=== PATIENT | male | born 1955 | race African-American/Black ===

== ENCOUNTER 2023-12-04 09:08 | Inpatient (IN) | payer MEDICARE, OTHER ==
[~2023-12-04] VITALS: Ht 180.3 cm; Wt 79.5 kg
[2023-12-04 10:04] LABS: Hemoglobin 7.2 g/dL (13.5-17.5); Red Cell Distribution Width 15.3 % (11.8-14.3); White Blood Cell 3.5 10^3/uL (4.4-10.8)
[2023-12-04 10:07] LABS: Hematocrit 20.6 % (41.0-53.0); Mean Corpuscular Hemoglobin 30.1 pg (28.0-32.0); Mean Corpuscular Hgb Conc. 34.7 g/dL (32.0-36.0); Mean Corpuscular Volume 86.6 fL (80.0-100.0); Platelet Count (auto) 65 10^3/uL (140-450); Red Blood Cells 2.38 10^6/uL (4.5-5.90)
[2023-12-04 10:12] LABS: Alanine Aminotransferase 45 U/L (7-40); Albumin 4.3 g/dL (3.2-4.8); Alkaline Phosphatase 113 U/L (46-116); Anion Gap 6 (5-15); Aspartate Aminotransferase 23 U/L (13-40); BUN/Creatinine Ratio 17.7 (10.0-20.0); Band Neutrophils % (manual) 0; Basophils % (manual) 0 (0.0-2.0); Blast Cells 0; Blood Urea Nitrogen 14 mg/dL (9-23); Calcium 9.7 mg/dL (8.7-10.4); Carbon Dioxide 25 mmol/L (20-30); Chloride 108 mmol/L (98-107); Glucose 96 mg/dL (74-106); Metamyelocytes % 0; Myelocytes % 0; Potassium 3.9 mmol/L (3.5-5.1); Promyelocytes % 0; Reactive Lymphocytes 0; Sodium 139 mmol/L (136-145)
[2023-12-04 10:13] LABS: Bilirubin, Total 0.7 mg/dL (0.2-1.0); Total Protein 7.8 g/dL (5.7-8.2)
[2023-12-04 13:11] LABS: Lymphocytes % (manual) 56 (10.0-50.0); Monocytes % (manual) 3 (0-12)
[2023-12-04 13:12] LABS: Eosinophils % (manual) 18 (0-7); Platelet Estimate Decreased
[2023-12-04] MEDS ORDERED: TEMAZEPAM 15 MG CAP PO PRN (18:30)
[2023-12-04] MEDS ORDERED: DOCUSATE SOD 100 MG CAP PO PRN (18:30)
[2023-12-04] MEDS ORDERED: ONDANSETRON HCL 4 MG/2 ML VIAL IV PRN (18:30)
[2023-12-04] MEDS: SODIUM CHLORIDE 0.9% 1,000 ML IV SCH (18:30)
[2023-12-04] MEDS ORDERED: NITROGLYCERIN 0.4 MG SL TAB SL PRN (18:30)
[2023-12-04] MEDS ORDERED: MORPHINE SULFATE INJ 2 MG/ml SYRG IV PRN ×2 (18:30→20:00)
[2023-12-05] VITALS (9 sets, daily range): BP systolic 94–127; BP diastolic 47–69; PULSE 68–86; RESP 16–20; TEMP 98–99.3; O2SAT 95–99
[2023-12-05] MEDS ORDERED: FOLI-119 PO (04:19)
[2023-12-05] MEDS ORDERED: SILD50TA PO (04:19)
[2023-12-05] MEDS ORDERED: [UNRECOGNIZED DRUG - CODE] IJ (04:19)
[2023-12-05] MEDS ORDERED: NIC21P TOP (04:19)
[2023-12-05] MEDS ORDERED: ALBUAER3 IN (04:19)
[2023-12-05] MEDS ORDERED: LOPE2CAP PO (04:19)
[2023-12-05] MEDS ORDERED: CLOT1CRE51 TOP (04:19)
[2023-12-05] MEDS ORDERED: MIRT1TAB40 PO (04:19)
[2023-12-05] MEDS ORDERED: [UNRECOGNIZED DRUG - CODE] PO (04:19)
[2023-12-05] MEDS ORDERED: MELA3TAB27 PO (04:19)
[2023-12-05] MEDS ORDERED: FLUT1INH4 IN (04:19)
[2023-12-05] MEDS ORDERED: LEUP22.52 IM (04:19)
[2023-12-05] MEDS ORDERED: NALT50TA5 PO (04:19)
[2023-12-05] MEDS ORDERED: ATOR40TA52 PO (04:19)
[2023-12-05] MEDS ORDERED: RISP2TAB62 PO (04:19)
[2023-12-05] MEDS ORDERED: ASPI-543 PO (04:19)
[2023-12-05] MEDS ORDERED: GABA-2171 PO (04:19)
[2023-12-05 06:36] LABS: Alanine Aminotransferase 39 U/L (7-40); Albumin 3.6 g/dL (3.2-4.8); Alkaline Phosphatase 99 U/L (46-116); Anion Gap 5 (5-15); Aspartate Aminotransferase 24 U/L (13-40); BUN/Creatinine Ratio 17.9 (10.0-20.0); Bilirubin, Total 0.4 mg/dL (0.2-1.0); Blood Urea Nitrogen 14 mg/dL (9-23); Calcium 8.9 mg/dL (8.7-10.4); Carbon Dioxide 25 mmol/L (20-30); Chloride 108 mmol/L (98-107); Glucose 122 mg/dL (74-106); Sodium 138 mmol/L (136-145); Total Protein 6.6 g/dL (5.7-8.2)
[2023-12-05 07:00] LABS: Basophils # (auto) 0.1 10 ^3/uL (0-0.2); Eosinophils # (auto) 0.6 10 ^3/uL (0-0.8); White Blood Cell 3.5 10^3/uL (4.4-10.8)
[2023-12-05 07:02] LABS: Basophils % (auto) 3.6 % (0.0-2.0); Lymphocytes # (auto) 0.9 10 ^3/uL (0.4-5.4); Mean Corpuscular Hgb Conc. 34.9 g/dL (32.0-36.0); Mean Corpuscular Volume 85.9 fL (80.0-100.0); Monocytes # (auto) 0.2 10 ^3/uL (0-1.3); Monocytes % (auto) 4.4 % (0.0-12.0); Neutrophils # (auto) 1.7 10 ^3/uL (1.6-8.6); Neutrophils % (auto) 50.3 % (37.0-80.0); Nucleated Red Blood Cells % 0.1 %; Platelet Count (auto) 52 10^3/uL (140-450); Red Blood Cells 1.98 10^6/uL (4.5-5.90); Red Cell Distribution Width 14.9 % (11.8-14.3)
[2023-12-05 07:13] LABS: Eosinophils % (auto) 16.7 % (0.0-7.0)
[2023-12-05 10:38] LABS: Folate (Folic Acid) 14.21 ng/mL (>5.38)
[2023-12-05 10:41] LABS: % Iron Saturation 81.1 % (20-55)
[2023-12-05 10:53] LABS: Ferritin 2394.1 ng/mL (22-322)
[2023-12-05 11:14] LABS: Urine Bacteria None Seen /hpf (None Seen)
[2023-12-05 11:44] LABS: Urine Blood Negative /uL (Negative); Urine Clarity Clear (Clear); Urine Color Light-Yellow (Yellow); Urine Protein, UAD Negative (Negative); Urine Specific Gravity 1.017 (1.001-1.035); Urine Urobilinogen Normal (Negative); Urine WBC 1 /hpf (0 - 3); Urine pH 6.5 (5.0-9.0)
== END 2023-12-05 18:10 | disposition left against medical advice (07) | DRG 694 ==
LOC: ER 09:08 → OVERFLOW 18:31 → WEST WING 23:59
PROVIDERS: ADMIT Internal Medicine Pulmonary Disease; ATTEND Internal Medicine Pulmonary Disease
PROC: 30233N1 Transfusion of Nonautologous Red Blood Cells into Peripheral Vein, Percutaneous Approach (ICD-10-PCS; principal; 2023-12-05)
DX: D46.9 Myelodysplastic syndrome, unspecified (principal); D61.818 Other pancytopenia; D63.8 Anemia in other chronic diseases classified elsewhere; E78.5 Hyperlipidemia, unspecified; N40.0 Benign prostatic hyperplasia without lower urinary tract symptoms; J44.9 Chronic obstructive pulmonary disease, unspecified; F20.9 Schizophrenia, unspecified; F15.90 Other stimulant use, unspecified, uncomplicated; Z53.29 Procedure and treatment not carried out because of patient's decision for other reasons; I25.10 Atherosclerotic heart disease of native coronary artery without angina pectoris; Z86.73 Personal history of transient ischemic attack (TIA), and cerebral infarction without residual deficits; Z86.718 Personal history of other venous thrombosis and embolism; Z85.46 Personal history of malignant neoplasm of prostate
CPT/HCPCS: 36415; 71045; 80053; 81001; 82607; 82728; 82746; 83540; 83550; 83615; 83735; 84484; 85007; 85025; 85027; 85045; 86850; 86870; 86900; 86901; 86902; 86922; 93005; 93970; G0378

== ENCOUNTER 2023-12-11 06:42 | Inpatient (IN) | payer MEDICARE, OTHER ==
[~2023-12-11] VITALS: Ht 180.3 cm; Wt 75.5 kg
[~2023-12-11 06:42] MED LIST: ALBUAER3 IN; ASPI-543 PO; ATOR40TA52 PO; CLOT1CRE51 TOP; FLUT1INH4 IN; FOLI-119 PO; GABA-2171 PO; LEUP22.52 IM; LOPE2CAP PO; MELA3TAB27 PO; MIRT1TAB40 PO; NALT50TA5 PO; NIC21P TOP; RISP2TAB62 PO; SILD50TA PO; [UNRECOGNIZED DRUG - CODE] IJ; [UNRECOGNIZED DRUG - CODE] PO
[2023-12-11 07:47] LABS: Chloride 109 mmol/L (98-107); Sodium 139 mmol/L (136-145)
[2023-12-11 07:48] LABS: Anion Gap 7 (5-15); Calcium 9.9 mg/dL (8.7-10.4); Carbon Dioxide 23 mmol/L (20-30)
[2023-12-11 07:53] LABS: Blood Urea Nitrogen 15 mg/dL (9-23); Glucose 107 mg/dL (74-106)
[2023-12-11 08:10] LABS: Hematocrit 19.1 % (41.0-53.0); Mean Corpuscular Hemoglobin 29.9 pg (28.0-32.0); White Blood Cell 3.7 10^3/uL (4.4-10.8)
[2023-12-11 08:12] LABS: Mean Corpuscular Volume 85.3 fL (80.0-100.0); Platelet Count (auto) 68 10^3/uL (140-450); Red Blood Cells 2.23 10^6/uL (4.5-5.90); Red Cell Distribution Width 14.7 % (11.8-14.3)
[2023-12-11 08:19] LABS: Hemoglobin 6.7 g/dL (13.5-17.5)
[2023-12-11 08:20] LABS: Basophils % (manual) 0 (0.0-2.0); Blast Cells 0; Metamyelocytes % 0; Myelocytes % 0; Promyelocytes % 0; Reactive Lymphocytes 0
[2023-12-11 09:26] VITALS: PULSE 78; RESP 14; O2SAT 94
[2023-12-11 09:28] LABS: Band Neutrophils % (manual) 4; Eosinophils % (manual) 16 (0-7); Lymphocytes % (manual) 30 (10.0-50.0); Monocytes % (manual) 3 (0-12)
[2023-12-11 09:29] LABS: Anisocytosis Slight; Platelet Estimate Decreased
[2023-12-11] MEDS ORDERED: ONDANSETRON HCL 4 MG/2 ML VIAL IV PRN (12:00)
[2023-12-11] MEDS: SODIUM CHLORIDE 0.9% 1,000 ML IV SCH (12:26)
[2023-12-11 12:48] VITALS: BP 84/48; PULSE 73; RESP 12; TEMP 98.4
[2023-12-11 13:10] VITALS: BP 91/57; PULSE 67; RESP 12; TEMP 98.5
[2023-12-11 15:03] VITALS: BP 101/56; PULSE 84; RESP 16; TEMP 98.6
[2023-12-11 23:38] VITALS: BP 106/55; PULSE 79; RESP 17; RESP 18; RESP 19; TEMP 97.9; O2SAT 99
[2023-12-11] MEDS: MELATONIN 5 MG TAB PO ONE (23:40)
[2023-12-12] VITALS (10 sets, daily range): BP systolic 82–112; BP diastolic 46–69; PULSE 65–78; RESP 16–19; TEMP 97.3–98.3; O2SAT 96–99
[2023-12-12] MEDS: ALBUMIN 5% 250 ML IV ONE ×2 (02:54→05:30)
[2023-12-12 04:02] LABS: Platelet Count (auto) 55 10^3/uL (140-450); White Blood Cell 3.4 10^3/uL (4.4-10.8)
[2023-12-12 04:04] LABS: Hematocrit 18.2 % (41.0-53.0); Mean Corpuscular Hemoglobin 29.5 pg (28.0-32.0); Mean Corpuscular Hgb Conc. 34.7 g/dL (32.0-36.0); Mean Corpuscular Volume 85.2 fL (80.0-100.0); Red Blood Cells 2.13 10^6/uL (4.5-5.90); Red Cell Distribution Width 14.4 % (11.8-14.3)
[2023-12-12 04:11] LABS: Hemoglobin 6.3 g/dL (13.5-17.5)
[2023-12-12 04:13] LABS: Basophils % (manual) 0 (0.0-2.0); Blast Cells 0; Metamyelocytes % 0; Myelocytes % 0; Promyelocytes % 0; Reactive Lymphocytes 0
[2023-12-12 04:14] LABS: Chloride 112 mmol/L (98-107); Sodium 138 mmol/L (136-145)
[2023-12-12 04:15] LABS: Anion Gap 2 (5-15); Calcium 9.1 mg/dL (8.7-10.4); Carbon Dioxide 24 mmol/L (20-30)
[2023-12-12 04:20] LABS: BUN/Creatinine Ratio 18.8 (10.0-20.0); Blood Urea Nitrogen 16 mg/dL (9-23); Glucose 105 mg/dL (74-106)
[2023-12-12] MEDS ORDERED: ALBUMIN 5% 250 ML IV ONE (04:35)
[2023-12-12 07:03] LABS: Band Neutrophils % (manual) 5; Eosinophils % (manual) 15 (0-7); Lymphocytes % (manual) 31 (10.0-50.0); Monocytes % (manual) 3 (0-12); Platelet Estimate Decreased
[2023-12-13 01:00] VITALS: BP 97/64; PULSE 75; RESP 16; TEMP 98.2; O2SAT 98
[2023-12-13 07:33] LABS: Red Cell Distribution Width 14.3 % (11.8-14.3); White Blood Cell 2.9 10^3/uL (4.4-10.8)
[2023-12-13 07:40] LABS: Alanine Aminotransferase 30 U/L (7-40); Alkaline Phosphatase 103 U/L (46-116); Anion Gap 6 (5-15); BUN/Creatinine Ratio 16.9 (10.0-20.0); Blood Urea Nitrogen 12 mg/dL (9-23); Calcium 9.7 mg/dL (8.7-10.4); Carbon Dioxide 25 mmol/L (20-30); Chloride 110 mmol/L (98-107); Glucose 91 mg/dL (74-106); Hematocrit 21.2 % (41.0-53.0); Hemoglobin 7.5 g/dL (13.5-17.5); Mean Corpuscular Hgb Conc. 35.3 g/dL (32.0-36.0); Mean Corpuscular Volume 84.8 fL (80.0-100.0); Potassium 4.1 mmol/L (3.5-5.1); Sodium 141 mmol/L (136-145)
[2023-12-13 07:41] LABS: Albumin 3.8 g/dL (3.2-4.8)
[2023-12-13 07:42] LABS: Aspartate Aminotransferase 12 U/L (13-40); Bilirubin, Total 0.6 mg/dL (0.2-1.0); Total Protein 6.9 g/dL (5.7-8.2)
[2023-12-13 07:49] LABS: Band Neutrophils % (manual) 0; Basophils % (manual) 0 (0.0-2.0); Blast Cells 0; Metamyelocytes % 0; Myelocytes % 0; Platelet Count (auto) 58 10^3/uL (140-450); Promyelocytes % 0; Reactive Lymphocytes 0
[2023-12-13 09:35] VITALS: BP 84/50; PULSE 69; RESP 18; TEMP 98.6; O2SAT 95
[2023-12-13 10:38] LABS: Eosinophils % (manual) 14 (0-7); Lymphocytes % (manual) 23 (10.0-50.0); Monocytes % (manual) 4 (0-12); Platelet Estimate Decreased
[2023-12-13 12:22] VITALS: BP 93/58; PULSE 65; RESP 20; TEMP 98.4; O2SAT 99
[2023-12-13 13:00] VITALS: BP 100/58; PULSE 74; RESP 18; TEMP 97.8; O2SAT 97
== END 2023-12-13 15:00 | disposition home or self-care (01) | DRG 694 ==
LOC: ER 06:42 → OVERFLOW 12:03 → EAST 22:44
PROVIDERS: ADMIT Registered Nurse General Practice; ATTEND Family Medicine
PROC: 30233N1 Transfusion of Nonautologous Red Blood Cells into Peripheral Vein, Percutaneous Approach (ICD-10-PCS; principal; 2023-12-11)
DX: D46.9 Myelodysplastic syndrome, unspecified (principal); D69.6 Thrombocytopenia, unspecified; J44.1 Chronic obstructive pulmonary disease with (acute) exacerbation; E78.00 Pure hypercholesterolemia, unspecified; N40.0 Benign prostatic hyperplasia without lower urinary tract symptoms; Z86.73 Personal history of transient ischemic attack (TIA), and cerebral infarction without residual deficits; Z85.46 Personal history of malignant neoplasm of prostate; Z79.899 Other long term (current) drug therapy
CPT/HCPCS: 36415; 80048; 80053; 82962; 85007; 85027; 86850; 86900; 86901; 86920; 86922; 87081; 93005; 99291; G0378

== ENCOUNTER 2023-12-19 06:46 | Inpatient (IN) | payer MEDICARE, OTHER, MEDICAID ==
[2023-12-19] VITALS (8 sets, daily range): BP systolic 83–106; BP diastolic 47–60; PULSE 60–89; RESP 14–18; TEMP 97.9–98.3; O2SAT 97–99
[~2023-12-19] VITALS: Ht 180.3 cm; Wt 76.5 kg
[~2023-12-19 06:46] MED LIST changes: -SILD50TA PO; -[UNRECOGNIZED DRUG - CODE] IJ; -[UNRECOGNIZED DRUG - CODE] PO
[2023-12-19 08:17] LABS: Basophils # (auto) 0.1 10 ^3/uL (0-0.2); Lymphocytes # (auto) 0.6 10 ^3/uL (0.4-5.4); Monocytes # (auto) 0.1 10 ^3/uL (0-1.3); Neutrophils # (auto) 1.3 10 ^3/uL (1.6-8.6); White Blood Cell 2.4 10^3/uL (4.4-10.8)
[2023-12-19 08:20] LABS: Basophils % (auto) 4.2 % (0.0-2.0); Eosinophils # (auto) 0.3 10 ^3/uL (0-0.8); Eosinophils % (auto) 14.3 % (0.0-7.0); Lymphocytes % (auto) 22.7 % (10.0-50.0); Mean Corpuscular Hemoglobin 29.5 pg (28.0-32.0); Mean Corpuscular Hgb Conc. 34.4 g/dL (32.0-36.0); Mean Corpuscular Volume 85.7 fL (80.0-100.0); Monocytes % (auto) 4.3 % (0.0-12.0); Neutrophils % (auto) 54.5 % (37.0-80.0); Nucleated Red Blood Cells % 0.2 %; Red Blood Cells 2.33 10^6/uL (4.5-5.90); Red Cell Distribution Width 14.2 % (11.8-14.3)
[2023-12-19 08:27] LABS: Hemoglobin 6.9 g/dL (13.5-17.5); Platelet Count (auto) 66 10^3/uL (140-450)
[2023-12-19] MEDS ORDERED: DOCUSATE SOD 100 MG CAP PO PRN (10:15)
[2023-12-19] MEDS ORDERED: NITROGLYCERIN 0.4 MG SL TAB SL PRN (10:15)
[2023-12-19] MEDS ORDERED: ONDANSETRON HCL 4 MG/2 ML VIAL IV PRN (10:15)
[2023-12-19] MEDS ORDERED: MORPHINE SULFATE INJ 2 MG/ml SYRG IV PRN (10:15)
[2023-12-19 10:58] LABS: Hematocrit 19.9 % (41.0-53.0)
[2023-12-19 11:08] LABS: Hemoglobin 6.9 g/dL (13.5-17.5)
[2023-12-20] VITALS (9 sets, daily range): BP systolic 82–105; BP diastolic 43–64; PULSE 57–89; RESP 16–20; TEMP 97.8–99.2; O2SAT 93–100
[2023-12-20 03:22] LABS: Hematocrit 23.4 % (41.0-53.0); Hemoglobin 8.1 g/dL (13.5-17.5)
[2023-12-20 05:55] LABS: Hematocrit 23.6 % (41.0-53.0); Hemoglobin 8.1 g/dL (13.5-17.5); Mean Corpuscular Hemoglobin 29.6 pg (28.0-32.0); Mean Corpuscular Hgb Conc. 34.1 g/dL (32.0-36.0); Platelet Count (auto) 51 10^3/uL (140-450); Red Blood Cells 2.72 10^6/uL (4.5-5.90); Red Cell Distribution Width 14.3 % (11.8-14.3); White Blood Cell 2.7 10^3/uL (4.4-10.8)
[2023-12-20 05:58] LABS: Band Neutrophils % (manual) 0; Basophils % (manual) 0 (0.0-2.0); Blast Cells 0; Metamyelocytes % 0; Myelocytes % 0; Promyelocytes % 0; Reactive Lymphocytes 0
[2023-12-20 06:18] LABS: Alanine Aminotransferase 53 U/L (7-40); Albumin 3.5 g/dL (3.2-4.8); Alkaline Phosphatase 97 U/L (46-116); Anion Gap 5 (5-15); Aspartate Aminotransferase 27 U/L (13-40); BUN/Creatinine Ratio 16.2 (10.0-20.0); Bilirubin, Total 0.9 mg/dL (0.2-1.0); Blood Urea Nitrogen 12 mg/dL (9-23); Calcium 9.2 mg/dL (8.7-10.4); Carbon Dioxide 23 mmol/L (20-31); Chloride 111 mmol/L (98-107); Glucose 96 mg/dL (74-106); Potassium 3.9 mmol/L (3.5-5.1); Sodium 139 mmol/L (136-145); Total Protein 6.6 g/dL (5.7-8.2)
[2023-12-20 08:30] LABS: Eosinophils % (manual) 15 (0-7); Lymphocytes % (manual) 41 (10.0-50.0); Monocytes % (manual) 4 (0-12)
[2023-12-20 08:32] LABS: Platelet Estimate Decreased
[2023-12-20] MEDS ORDERED: ACETAMINOPHEN 325 MG TAB PO PRN (16:30)
[2023-12-20] MEDS ORDERED: ENOXAPARIN SOD 40 MG/0.4 ML SYRINGE SC ONE (17:45)
[2023-12-20] MEDS: SODIUM CHLORIDE 0.9% 500 ML IV ONE (18:06)
[2023-12-21 01:00] VITALS: BP 87/49; PULSE 69; RESP 16; TEMP 98.3; O2SAT 98
[2023-12-21 05:00] VITALS: BP 94/57; PULSE 65; RESP 16; TEMP 98.3; O2SAT 98
[2023-12-21 06:06] LABS: Hematocrit 24.8 % (41.0-53.0); Hemoglobin 8.6 g/dL (13.5-17.5); Mean Corpuscular Hemoglobin 29.5 pg (28.0-32.0); Mean Corpuscular Hgb Conc. 34.5 g/dL (32.0-36.0); Mean Corpuscular Volume 85.7 fL (80.0-100.0); Platelet Count (auto) 66 10^3/uL (140-450); Red Cell Distribution Width 14.2 % (11.8-14.3); White Blood Cell 2.8 10^3/uL (4.4-10.8)
[2023-12-21 06:15] LABS: Chloride 108 mmol/L (98-107); Potassium 3.9 mmol/L (3.5-5.1); Sodium 140 mmol/L (136-145)
[2023-12-21 06:16] LABS: Anion Gap 7 (5-15); Carbon Dioxide 25 mmol/L (20-31)
[2023-12-21 06:17] LABS: Basophils % (manual) 0 (0.0-2.0); Blast Cells 0; Calcium 9.4 mg/dL (8.7-10.4); Metamyelocytes % 0; Myelocytes % 0; Promyelocytes % 0; Reactive Lymphocytes 0
[2023-12-21 06:21] LABS: BUN/Creatinine Ratio 16.9 (10.0-20.0); Blood Urea Nitrogen 13 mg/dL (9-23); Glucose 94 mg/dL (74-106)
[2023-12-21 07:57] LABS: Band Neutrophils % (manual) 1; Eosinophils % (manual) 25 (0-7); Lymphocytes % (manual) 40 (10.0-50.0); Monocytes % (manual) 3 (0-12); Platelet Estimate Decreased
[2023-12-21 07:58] LABS: Large Platelets FEW
[2023-12-21 09:06] VITALS: BP 94/52; PULSE 49; RESP 20; TEMP 98.4; O2SAT 93
[2023-12-21] MEDS ORDERED: ENOXAPARIN SOD 40 MG/0.4 ML SYRINGE SC SCH (10:00)
[2023-12-21 10:51] VITALS: TEMP 36.9
== END 2023-12-21 11:30 | disposition home or self-care (01) | DRG 694 ==
LOC: ER 06:46 → OVERFLOW 10:08 → WEST WING 14:57
PROVIDERS: ADMIT Internal Medicine; ATTEND Internal Medicine
PROC: 30233N1 Transfusion of Nonautologous Red Blood Cells into Peripheral Vein, Percutaneous Approach (ICD-10-PCS; principal; 2023-12-19)
DX: D46.9 Myelodysplastic syndrome, unspecified (principal); D61.818 Other pancytopenia; E78.5 Hyperlipidemia, unspecified; N40.0 Benign prostatic hyperplasia without lower urinary tract symptoms; F20.9 Schizophrenia, unspecified; I25.10 Atherosclerotic heart disease of native coronary artery without angina pectoris; J44.9 Chronic obstructive pulmonary disease, unspecified; Z86.73 Personal history of transient ischemic attack (TIA), and cerebral infarction without residual deficits; Z79.82 Long term (current) use of aspirin; Z79.899 Other long term (current) drug therapy
CPT/HCPCS: 36415; 36430; 80048; 80053; 85007; 85014; 85018; 85025; 85027; 86850; 86900; 86901; 86902; 86922; 87081; 99291; G0378

== ENCOUNTER 2023-12-25 07:01 | Emergency (ER) | payer MEDICARE, OTHER ==
[~2023-12-25] VITALS: Ht 180.3 cm; Wt 78.2 kg
[2023-12-25 08:03] LABS: Hemoglobin 8.6 g/dL (13.5-17.5); Mean Corpuscular Hemoglobin 29.1 pg (28.0-32.0); White Blood Cell 2.4 10^3/uL (4.4-10.8)
[2023-12-25 08:05] LABS: Hematocrit 25.4 % (41.0-53.0); Mean Corpuscular Hgb Conc. 33.9 g/dL (32.0-36.0); Mean Corpuscular Volume 86.1 fL (80.0-100.0); Platelet Count (auto) 62 10^3/uL (140-450); Red Blood Cells 2.95 10^6/uL (4.5-5.90); Red Cell Distribution Width 13.9 % (11.8-14.3)
[2023-12-25 08:13] LABS: Alanine Aminotransferase 76 U/L (7-40); Albumin 4.3 g/dL (3.2-4.8); Alkaline Phosphatase 122 U/L (46-116); Anion Gap 6 (5-15); Aspartate Aminotransferase 29 U/L (13-40); BUN/Creatinine Ratio 15.9 (10.0-20.0); Bilirubin, Total 0.7 mg/dL (0.2-1.0); Blood Urea Nitrogen 14 mg/dL (9-23); Calcium 9.6 mg/dL (8.7-10.4); Carbon Dioxide 26 mmol/L (20-31); Chloride 109 mmol/L (98-107); Glucose 118 mg/dL (74-106); Potassium 3.4 mmol/L (3.5-5.1); Sodium 141 mmol/L (136-145); Total Protein 7.6 g/dL (5.7-8.2)
[2023-12-25 08:14] LABS: Basophils % (manual) 0 (0.0-2.0); Blast Cells 0; Metamyelocytes % 0; Monocytes % (manual) 0 (0-12); Myelocytes % 0; Promyelocytes % 0; Reactive Lymphocytes 0
[2023-12-25 09:22] VITALS: PULSE 59; RESP 13; O2SAT 100
[2023-12-25 09:24] VITALS: TEMP 98.6
[2023-12-25] MEDS: SODIUM CHLORIDE 0.9% 1,000 ML IV ONE (09:47)
[2023-12-25 11:18] LABS: Band Neutrophils % (manual) 1; Eosinophils % (manual) 24 (0-7); Lymphocytes % (manual) 21 (10.0-50.0)
[2023-12-25 11:19] LABS: Platelet Estimate Decreased
[2023-12-25] MEDS: POTASSIUM EFFERVESENT TAB 25 MEQ PO ONE (12:57)
[2023-12-25 15:00] VITALS: BP 93/62; PULSE 64; RESP 13; O2SAT 97
== END 2023-12-25 15:48 | disposition admitted as inpatient to this hospital (09) ==
LOC: ER 07:01
DX: D46.9 Myelodysplastic syndrome, unspecified (principal); E87.6 Hypokalemia; J44.9 Chronic obstructive pulmonary disease, unspecified; F20.9 Schizophrenia, unspecified; F17.210 Nicotine dependence, cigarettes, uncomplicated; Z85.46 Personal history of malignant neoplasm of prostate; Z98.890 Other specified postprocedural states; Z79.899 Other long term (current) drug therapy
CPT/HCPCS: 36415; 71046; 80053; 83735; 85007; 85027; 86850; 86900; 86901; 96360; 96361; 99285; J7030

== ENCOUNTER 2024-01-02 07:44 | Inpatient (IN) | payer MEDICARE, MEDICAID ==
[~2024-01-02] VITALS: Ht 180.3 cm; Wt 75.7 kg
[2024-01-02 08:33] LABS: White Blood Cell 3.1 10^3/uL (4.4-10.8)
[2024-01-02 08:35] LABS: Hematocrit 20.2 % (41.0-53.0); Mean Corpuscular Hemoglobin 29.6 pg (28.0-32.0); Mean Corpuscular Hgb Conc. 34.3 g/dL (32.0-36.0); Mean Corpuscular Volume 86.4 fL (80.0-100.0); Platelet Count (auto) 82 10^3/uL (140-450); Red Blood Cells 2.34 10^6/uL (4.5-5.90)
[2024-01-02 08:39] LABS: Chloride 109 mmol/L (98-107); Potassium 4.3 mmol/L (3.5-5.1); Sodium 140 mmol/L (136-145)
[2024-01-02 08:40] LABS: Anion Gap 6 (5-15); Calcium 9.8 mg/dL (8.7-10.4); Carbon Dioxide 25 mmol/L (20-31)
[2024-01-02 08:45] LABS: Blood Urea Nitrogen 15 mg/dL (9-23); Glucose 115 mg/dL (74-106)
[2024-01-02 08:46] LABS: Hemoglobin 6.9 g/dL (13.5-17.5)
[2024-01-02] MEDS ORDERED: ONDANSETRON HCL 4 MG/2 ML VIAL IV PRN (11:00)
[2024-01-02] MEDS ORDERED: KETOROLAC TROMETH 30 MG/ML 1ML VIAL IV PRN (11:00)
[2024-01-02 12:11] LABS: Band Neutrophils % (manual) 0; Basophils % (manual) 0 (0.0-2.0); Blast Cells 0; Metamyelocytes % 0; Monocytes % (manual) 0 (0-12); Myelocytes % 0; Promyelocytes % 0; Reactive Lymphocytes 0
[2024-01-02 12:14] LABS: Eosinophils % (manual) 19 (0-7); Lymphocytes % (manual) 39 (10.0-50.0)
[2024-01-02 12:15] LABS: Platelet Estimate Decreased
[2024-01-02 12:28] LABS: Urine Bacteria None Seen /hpf (None Seen)
[2024-01-02 12:54] LABS: Urine Blood Negative /uL (Negative); Urine Clarity Clear (Clear); Urine Color Yellow (Yellow); Urine Mucus FEW (None Seen); Urine Protein, UAD Negative (Negative); Urine Specific Gravity 1.018 (1.001-1.035); Urine Urobilinogen Normal (Negative); Urine WBC 1 /hpf (0 - 3)
[2024-01-02 13:45] VITALS: BP 93/58; PULSE 79; RESP 16; TEMP 99
[2024-01-02 14:03] VITALS: BP 94/53; PULSE 78; RESP 14; TEMP 98.9
[2024-01-02 15:50] VITALS: BP 93/59; PULSE 78; PULSE 79; RESP 13; TEMP 99.2
[2024-01-02 16:12] VITALS: BP 90/54; PULSE 72; RESP 16; TEMP 99
[2024-01-02 17:54] VITALS: BP 84/56; PULSE 73; RESP 15; TEMP 99
[2024-01-02 22:00] VITALS: BP 92/51; PULSE 73; RESP 19; TEMP 98.1; O2SAT 95
[2024-01-02] MEDS: MELATONIN 5 MG TAB PO SCH (22:47)
[2024-01-02] MEDS: GABAPENTIN 300 MG CAP PO SCH (22:47)
[2024-01-02] MEDS: ATORVASTATIN 20 MG TAB PO SCH (22:47)
[2024-01-03] VITALS (9 sets, daily range): BP systolic 80–93; BP diastolic 43–58; PULSE 62–71; RESP 18–20; TEMP 97.8–98.5; O2SAT 95–99
[2024-01-03 07:15] LABS: Hematocrit 23.2 % (41.0-53.0); Hemoglobin 7.8 g/dL (13.5-17.5); Mean Corpuscular Hemoglobin 29.1 pg (28.0-32.0); Mean Corpuscular Hgb Conc. 33.4 g/dL (32.0-36.0); Mean Corpuscular Volume 87.2 fL (80.0-100.0); Platelet Count (auto) 60 10^3/uL (140-450); Red Blood Cells 2.67 10^6/uL (4.5-5.90); Red Cell Distribution Width 14.5 % (11.8-14.3); White Blood Cell 2.7 10^3/uL (4.4-10.8)
[2024-01-03 07:19] LABS: Band Neutrophils % (manual) 0; Basophils % (manual) 0 (0.0-2.0); Blast Cells 0; Metamyelocytes % 0; Monocytes % (manual) 0 (0-12); Myelocytes % 0; Promyelocytes % 0; Reactive Lymphocytes 0
[2024-01-03 07:28] LABS: Chloride 112 mmol/L (98-107); Potassium 4.3 mmol/L (3.5-5.1); Sodium 140 mmol/L (136-145)
[2024-01-03 07:29] LABS: Anion Gap 5 (5-15); Calcium 9.3 mg/dL (8.7-10.4); Carbon Dioxide 23 mmol/L (20-31)
[2024-01-03 07:34] LABS: BUN/Creatinine Ratio 13.6 (10.0-20.0); Blood Urea Nitrogen 11 mg/dL (9-23); Glucose 108 mg/dL (74-106)
[2024-01-03 07:57] LABS: Eosinophils % (manual) 23 (0-7); Lymphocytes % (manual) 40 (10.0-50.0)
[2024-01-03 07:58] LABS: Platelet Estimate Decreased
[2024-01-03] MEDS: FOLIC ACID 1 MG TAB PO SCH (10:08)
[2024-01-03] MEDS: ASPirin-EC 81 mg tab PO SCH (10:09)
[2024-01-03] MEDS: risperiDONE 1 MG TAB PO SCH (10:09)
[2024-01-03] MEDS: NICOTINE 21MG/24 HR TOPICAL PATCH TD SCH (10:10)
[2024-01-03 12:33] LABS: Hematocrit 22.8 % (41.0-53.0)
[2024-01-04] VITALS (10 sets, daily range): BP systolic 80–99; BP diastolic 46–65; PULSE 56–85; RESP 16–20; TEMP 97.7–98.6; O2SAT 93–100
[2024-01-04 05:53] LABS: Basophils # (auto) 0.1 10 ^3/uL (0-0.2); Chloride 112 mmol/L (98-107); Hemoglobin 7.8 g/dL (13.5-17.5); Lymphocytes # (auto) 0.8 10 ^3/uL (0.4-5.4); Monocytes # (auto) 0.1 10 ^3/uL (0-1.3); Neutrophils # (auto) 0.8 10 ^3/uL (1.6-8.6); Potassium 4.2 mmol/L (3.5-5.1); Red Cell Distribution Width 14.6 % (11.8-14.3); Sodium 141 mmol/L (136-145); White Blood Cell 2.4 10^3/uL (4.4-10.8)
[2024-01-04 05:54] LABS: Anion Gap 5 (5-15); Calcium 9.3 mg/dL (8.7-10.4); Carbon Dioxide 24 mmol/L (20-31)
[2024-01-04 05:55] LABS: Eosinophils # (auto) 0.7 10 ^3/uL (0-0.8); Hematocrit 23.1 % (41.0-53.0); Lymphocytes % (auto) 31.8 % (10.0-50.0); Mean Corpuscular Hemoglobin 28.8 pg (28.0-32.0); Mean Corpuscular Hgb Conc. 33.6 g/dL (32.0-36.0); Mean Corpuscular Volume 85.7 fL (80.0-100.0); Monocytes % (auto) 3.8 % (0.0-12.0); Neutrophils % (auto) 32.3 % (37.0-80.0); Platelet Count (auto) 59 10^3/uL (140-450)
[2024-01-04 05:56] LABS: Eosinophils % (auto) 28.1 % (0.0-7.0)
[2024-01-04 05:59] LABS: BUN/Creatinine Ratio 15.7 (10.0-20.0); Blood Urea Nitrogen 13 mg/dL (9-23); Glucose 137 mg/dL (74-106)
[2024-01-04 06:25] LABS: Large Platelets FEW; Platelet Estimate Decrea
== END 2024-01-04 17:03 | disposition home or self-care (01) | DRG 694 ==
LOC: ER 07:44 → OVERFLOW 11:04 → WEST WING 21:00
PROVIDERS: ADMIT Internal Medicine Geriatric Medicine; ATTEND Internal Medicine
PROC: 30233N1 Transfusion of Nonautologous Red Blood Cells into Peripheral Vein, Percutaneous Approach (ICD-10-PCS; principal; 2024-01-02)
DX: D46.9 Myelodysplastic syndrome, unspecified (principal); D61.818 Other pancytopenia; E78.5 Hyperlipidemia, unspecified; F20.9 Schizophrenia, unspecified; J44.9 Chronic obstructive pulmonary disease, unspecified; F17.210 Nicotine dependence, cigarettes, uncomplicated; G62.9 Polyneuropathy, unspecified; Z85.46 Personal history of malignant neoplasm of prostate
CPT/HCPCS: 36415; 70450; 71046; 80048; 81001; 82962; 84484; 85007; 85014; 85018; 85025; 85027; 86850; 86870; 86900; 86901; 86902; 86922; 93005; 99291; G0378

== ENCOUNTER 2024-01-16 06:23 | Inpatient (IN) | payer MEDICARE, MEDICAID ==
[2024-01-16] VITALS (11 sets, daily range): BP systolic 83–94; BP diastolic 49–61; PULSE 64–84; RESP 16–19; TEMP 97.6–98.5; O2SAT 97–99
[~2024-01-16] VITALS: Ht 180.3 cm; Wt 79.5 kg
[~2024-01-16 06:23] MED LIST changes: -NALT50TA5 PO
--- NOTE | 2024-01-16 06:56 | ED.PDOC ---
HPI Comments A 68 year old male presents to the ED with the chief complaint of syncope onset yesterday. Patient states he was trying to urinate yesterday when he experienced a syncopal episode and denies any head injury. Patient has a history of anemia and gets blood transfusion every Monday, per the patient. Patient is currently experiencing dizziness and denies any chest pain, abdominal pain, nausea, vomiting and SOB. Patient has a past medical history of Anemia, Prostate Cancer, Schizophrenia, and COPD. No other symptoms or modifying factors present at this time. Chief Complaint: Syncope Time Seen by MD: 06:36 Primary Care Provider: Jhon Allergies: Coded Allergies: NO KNOWN ALLERGIES (Unverified , 12/04/23) Home Meds Reported Medications Risperidone (Risperidone) 2 Mg Tab, 2 MG PO BID, TAB 12/05/23 Nicotine (Nicoderm 21MG/24HR) 1 Patch Ph, 1 PATCH TOP DAILY, #28 PATCH 1 Refill 12/05/23 Mirtazapine (Mirtazapine Oral Disintegrating Tablet) 45 Mg Tab, 1 TAB PO QPM, #30 TAB 1 Refill 12/05/23 Melatonin (KP MELATONIN) 3 Mg Tab, 3 MG PO, TAB 12/05/23 Loperamide Hcl (Loperamide Hcl) 2 Mg Cap, 2 MG PO, MG 12/05/23 Leuprolide Acetate (3 Month) (Lupron Depot) 22.5 Mg Inj, 22.5 MG IM, INJ 12/05/23 Gabapentin (Gabapentin) 600 Mg Tab, 600 MG PO BID, TAB 12/05/23 Folic Acid (Folic Acid) 1 Mg Tab, 1 MG PO DAILY for 30 Days, MG 12/05/23 Fluticasone Furoate (Inhalatio (Arnuity Ellipta) 200 Mcg/Act Inh, 200 MCG IN, INHALER 12/05/23 Clotrimazole (Clotrimazole) 1 % Cre, 1 APPLIC TOP Q12HR for 30 Days, APPLIC 12/05/23 Atorvastatin Calcium (ATORVASTATIN CALCIUM) 40 Mg Tab, 1 TAB PO DAILY, #30 TAB 5 Refills 12/05/23 Aspirin (Aspir-Low) 81 Mg Tab, 81 MG PO DAILY for 30 Days, MG 12/05/23 Albuterol Sulfate (VENTOLIN MDI) 90 Mcg Ih, 90 MCG IN, INH 12/05/23 Information Source: Patient Mode of Arrival: Ambulatory Severity: Moderate Timing: Days Duration: Since onset Prehospital treatment: None Review of Systems: REVIEW OF SYSTEMS: NO FEVER, NO CHILLS, OR FATIGUE HEENT: NO SORE THROAT, EARACHE, OR CONGESTION. NO NECK PAIN. CARDIAC: POSITIVE SYNCOPE. NO CHEST PAIN. NO PALPITATIONS. LUNGS: NO SHORTNESS OF BREATH OR COUGH. GI: NO NAUSEA, NO VOMITING, NO DIARRHEA, NO CONSTIPATION, NO ABDOMINAL PAIN : NO DYSURIA, FREQUENCY, OR URGENCY. NO HEMATURIA. MUSCULOSKELETAL: NO JOINT PAIN OR SWELLING OR EDEMA. SKIN: NO RASH OR ITCHING. NEURO: POSITIVE DIZZINESS. POSITIVE SYNCOPE. NO HEADACHE, WEAKNESS Vital Signs Vital Signs Date Time Temp Pulse Resp B/P (MAP) Pulse Ox O2 Delivery O2 Flow Rate FiO2 01/16/24 12:42 98.1 64 18 83/54 (64) 99 98.1 01/16/24 07:59 Room Air* 0 21 Physical Exam GENERAL: AWAKE, ALERT AND ORIENTED. NO ACUTE DISTRESS. SKIN: SKIN IN WARM, DRY AND INTACT WITHOUT RASHES OR LESIONS. APPROPRIATE COLOR FOR ETHNICITY. NAILBEDS WITH NO CYANOSIS. HEENT: THE HEAD IS NORMOCEPHALIC AND ATRAUMATIC. PALE MUCOUS MEMBRANE. SCLERA IS NON-ICTERIC. EOM ARE INTACT. NO SIGNS OF NYSTAGMUS. THE EXTERNAL EAR AND EAR CANAL ARE NON-TENDER AND WITHOUT SWELLING. ORAL MUCOSA IS PINK AND MOIST NECK: THE NECK IS SUPPLE WITH NORMAL RANGE OF MOTION. NO JVD. CARDIAC: HEART RATE AND RHYTHM ARE NORMAL. NO MURMURS, GALLOPS, OR RUBS ARE AUSCULTATED. RESPIRATORY: NO SIGNS OF RESPIRATORY DISTRESS. LUNG SOUNDS ARE CLEAR IN ALL LOBES BILATERALLY WITHOUT RALES, RONCHI, OR WHEEZES. ABDOMINAL: ABDOMEN IS SOFT, NON-TENDER WITHOUT DISTENTION. THERE ARE NO VISIBLE LESIONS OR SCARS. UMBILICUS IS MIDLINE WITHOUT HERNIATION. BOWEL SOUNDS ARE PRESENT AND NORMOACTIVE IN ALL FOUR QUADRANTS. EXTREMITIES: UPPER AND LOWER EXTREMITIES ARE ATRAUMATIC IN APPEARANCE WITHOUT DEFORMITY OR EDEMA. NEUROLOGICAL: THE PATIENT IS AWAKE, ALERT AND ORIENTED TO PERSON, PLACE, AND TIME WITH NORMAL SPEECH. SPEECH IS CLEAR. THERE IS NO FACIAL ASYMMETRY. NORMAL GAIT. PSYCHIATRIC: APPROPRIATE MOOD AND AFFECT. GOOD JUDGEMENT AND INSIGHT. NO VISUAL OR AUDITORY HALLUCINATIONS. Past Medical History PAST MEDICAL HISTORY: Anemia, Cancer, COPD, Schizophrenia Family History Family History: Reviewed,noncontributory to illness Social History Smoker: Cigarettes Alcohol: Denies ETOH Use Drugs: Denies Drug Use Lives In: Home EKG EKG : Comments RATE 87, NORMAL SINUS RHYTHM, NO STEMI, NORMAL OH INTERVAL. Was a procedure done? Was a procedure done?: No CP Differential Dx Differential Diagnosis: Anxiety / Panic Attack, Atrial Dysrhythmia, AV Block 3rd Degree, Electrolyte Disorder, Other X-Ray, Labs, Meds, VS Vital Signs Date Time Temp Pulse Resp B/P (MAP) Pulse Ox O2 Delivery O2 Flow Rate FiO2 01/16/24 12:42 98.1 64 18 83/54 (64) 99 98.1 01/16/24 11:36 64 85/55 (65) 01/16/24 11:31 65 90/54 (66) 01/16/24 11:26 65 89/53 (65) 01/16/24 09:15 97.6 76 18 94/61 (72) 98 97.6 01/16/24 07:59 98.8 89 16 102/69 (80) 96 98.8 01/16/24 07:59 Room Air* 0 21 01/16/24 06:30 97.8 107 18 103/67 (79) 97 Lab Test 01/16/24 07:05 01/16/24 06:42 Range/Units White Blood Count 2.2 L 4.4-10.8 10^3/uL Red Blood Count 2.72 L 4.5-5.90 10^6/uL Hemoglobin 7.8 L 13.5-17.5 g/dL Hematocrit 23.1 L 41.0-53.0 % Mean Corpuscular Volume 85.1 80.0-100.0 fL Mean Corpuscular Hemoglobin 28.9 28.0-32.0 pg Mean Corpuscular Hemoglobin Concent 33.9 32.0-36.0 g/dL Red Cell Distribution Width 14.2 11.8-14.3 % Platelet Count 59 L 140-450 10^3/uL Mean Platelet Volume 9.0 6.9-10.8 fL Neutrophils (%) (Auto) 37.0-80.0 % Lymphocytes (%) (Auto) 10.0-50.0 % Monocytes (%) (Auto) 0.0-12.0 % Basophils (%) (Auto) 0.0-2.0 % Neutrophils # (Auto) 1.6-8.6 10 ^3/uL Lymphocytes # (Auto) 0.4-5.4 10 ^3/uL Monocytes # (Auto) 0-1.3 10 ^3/uL Differential Total Cells Counted 100.0 100 Neutrophils % (Manual) 41 37.0-80.0 Band Neutrophils % (Manual) 0 Lymphocytes % (Manual) 36 10.0-50.0 Monocytes % (Manual) 0 0-12 Eosinophils % (Manual) 23 H 0-7 Basophils % (Manual) 0 0.0-2.0 Metamyelocytes % (manual) 0 Myelocytes % (Manual) 0 Promyelocytes % (Manual) 0 Blast Cells % (Manual) 0 Reactive Lymphocytes 0 Platelet Estimate Decreased Prothrombin Time 11.0 9.3-11.8 sec Prothrombin Time INR 1.04 0.9-1.15 Activated Partial Thromboplast Time 26.0 24.5-34.5 SEC Sodium Level 139 136-145 mmol/L Potassium Level 3.6 3.5-5.1 mmol/L Chloride Level 108 H 98-107 mmol/L Carbon Dioxide Level 23 20-31 mmol/L Anion Gap 8 5-15 Blood Urea Nitrogen 16 9-23 mg/dL Creatinine 0.87 0.700-1.30 mg/dL Glomerular Filtration Rate Calc 95 >90 mL/min BUN/Creatinine Ratio 18.4 10.0-20.0 Serum Glucose 98 74-106 mg/dL Calcium Level 9.8 8.7-10.4 mg/dL Total Bilirubin 0.5 0.2-1.0 mg/dL Aspartate Amino Transferase (AST) 38 13-40 U/L Alanine Aminotransferase (ALT) 108 H 7-40 U/L Alkaline Phosphatase 115 46-116 U/L Troponin I High Sensitivity < 3 L </=54 ng/L Total Protein 7.6 5.7-8.2 g/dL Albumin 4.2 3.2-4.8 g/dL POC Glucose 110 H 70-106 mg/dl Time of 1ST Reevaluation: 07:06 Reevaluation 1ST: Unchanged Patient Education/Counseling: Diagnosis, Treatment, Prognosis Family Education/Counseling: No Family Present Departure 1 Departure Time of Disposition: 08:43 Impression: Primary Impression: Syncope Additional Impression: Severe anemia Disposition: 09 ADMITTED INPATIENT Condition: Stable Comments 68-YEAR-OLD MALE WITH EPISODE OF SYNCOPE, HISTORY OF MDS, SIGNIFICANT RISK FACTORS. PATIENT ADMITTED FOR FURTHER TREATMENT, EVALUATION AND MONITORING. Critical Care Note Critical Care Time?: No Stability Stability form required: No Heart Score Heart Score: Heart Score Response (Comments) Value History N/A 0 EKG N/A 0 Age N/A 0 Risk Factors N/A 0 Troponin N/A 0 Total 0 I personally scribed for GODWIN CHRISTIANSEN MD ([email or web address]) on 01/16/24 at 07:02. Electronically submitted by Capri Gibson ([email or web address]). GODWIN CHRISTIANSEN MD Jan 16, 2024 06:56
[2024-01-16 07:37] LABS: Hemoglobin 7.8 g/dL (13.5-17.5); Mean Corpuscular Volume 85.1 fL (80.0-100.0); White Blood Cell 2.2 10^3/uL (4.4-10.8)
[2024-01-16 07:39] LABS: Hematocrit 23.1 % (41.0-53.0); Mean Corpuscular Hemoglobin 28.9 pg (28.0-32.0); Mean Corpuscular Hgb Conc. 33.9 g/dL (32.0-36.0); Platelet Count (auto) 59 10^3/uL (140-450); Red Blood Cells 2.72 10^6/uL (4.5-5.90); Red Cell Distribution Width 14.2 % (11.8-14.3)
[2024-01-16 07:44] LABS: Band Neutrophils % (manual) 0; Basophils % (manual) 0 (0.0-2.0); Blast Cells 0; Metamyelocytes % 0; Monocytes % (manual) 0 (0-12); Myelocytes % 0; Promyelocytes % 0; Reactive Lymphocytes 0
[2024-01-16 07:50] LABS: Alanine Aminotransferase 108 U/L (7-40); Albumin 4.2 g/dL (3.2-4.8); Alkaline Phosphatase 115 U/L (46-116); Anion Gap 8 (5-15); Aspartate Aminotransferase 38 U/L (13-40); BUN/Creatinine Ratio 18.4 (10.0-20.0); Blood Urea Nitrogen 16 mg/dL (9-23); Calcium 9.8 mg/dL (8.7-10.4); Carbon Dioxide 23 mmol/L (20-31); Chloride 108 mmol/L (98-107); Glucose 98 mg/dL (74-106); Potassium 3.6 mmol/L (3.5-5.1); Sodium 139 mmol/L (136-145)
[2024-01-16 07:51] LABS: Bilirubin, Total 0.5 mg/dL (0.2-1.0); Total Protein 7.6 g/dL (5.7-8.2)
[2024-01-16 08:01] LABS: INR 1.04 (0.9-1.15)
[2024-01-16 10:47] LABS: Eosinophils % (manual) 23 (0-7); Lymphocytes % (manual) 36 (10.0-50.0)
[2024-01-16 10:48] LABS: Platelet Estimate Decreased
[2024-01-16] MEDS ORDERED: HYDROcodone-ACET 5/325MG TAB PO PRN (13:45)
--- NOTE | 2024-01-16 14:24 | DVHHP2 ---
History of Present Illness Reason for Visit: Syncope History of Present Illness 68-year-old male presented to the ED with chief complaint of syncope onset yesterday. Patient states he was trying to urinate and he experienced a syncopal episode, denies any head injury. Patient has history of myelodysplastic syndrome, has a history of weekly blood transfusions. Patient is currently dizzy, but denies chest pain, abdominal pain, nausea, vomiting and shortness of breath. Patient is noted to also be hypotensive. Patient's hemoglobin 7.8, WBCs 2.2, platelets 59. Patient denies chest pain, headache, diaphoresis, shortness of breath, abdominal pain, no nausea, vomiting, fever, or chills endorsed by the patient. Patient was admitted for further evaluation medical management. Past Medical History Myelodysplastic syndrome, prostate cancer, schizophrenia, COPD, anemia, Past Surgical History Denies Family History Reviewed noncontributory to the management of this case Smoke: Quit (1 year ago) ALCOHOL: none Drugs: None Lives: with Family Review of Systems Constitutional: No: Fever, Chills, Sweats, Weakness, Malaise, Other Eyes: No: Pain, Vision change, Conjunctivae inflammation, Eyelid inflammation, Other, Redness ENT: No: Ear pain, Ear discharge, Nose pain, Nose discharge, Nose congestion, Mouth pain, Mouth swelling, Throat pain, Throat swelling, Other Respiratory: No: Cough, Dry, Shortness of breath, SOB with excertion, Wheezing, Hemoptysis, Pleuritic Pain, Sputum, Wheezing, Other Cardiovascular: Other (Hypotensive); No: Chest Pain, Palpitations, Orthopnea, Paroxysmal Noc. Dyspnea, Edema, Lt Headedness Gastrointestinal: No: Nausea, Vomiting, Abdominal Pain, Diarrhea, Constipation, Melena, Hematochezia, Other Genitourinary: No Dysuria, No Frequency, No Incontinence, No Hematuria, No Retention, No Other Musculoskeletal: No: other, neck pain, shoulder pain, arm pain, back pain, hand pain, leg pain, foot pain Skin: No: Rash, Lesions, Jaundice, Bruising, Other Neurological: Other (Dizziness); No: Weakness, Numbness, Incoordination, Change in speech, Confusion, Seizures Allergies: Coded Allergies: NO KNOWN ALLERGIES (Unverified , 12/04/23) Medications Current Medications Medications Dose Ordered Sig/Fabricio Route Start Time Stop Time Status Last Admin Dose Admin Acetaminophen/ Hydrocodone Bitart 1 tab Q4HPRN PRN PO 01/16/24 13:45 Exam Vital Signs Vital Signs Date Time Temp Pulse Resp B/P (MAP) Pulse Ox O2 Delivery O2 Flow Rate FiO2 01/16/24 12:42 98.1 64 18 83/54 (64) 99 98.1 01/16/24 07:59 Room Air* 0 21 General Appearance: Alert, Oriented X3, Cooperative, No acute distress HEENT: Atraumatic, PERRLA, EOMI, Mucous membr. moist/pink Respiratory: Clear to auscultation, Normal air movement Cardiovascular: Regular rate, Normal S1, Normal S2, No murmurs Abdominal: Normal bowel sounds, Soft, No tenderness, No hepatospenomegaly Extremities: No clubbing, No cyanosis, No edema, Normal pulses, No tenderness/swelling Skin: No rashes, No breakdown, No significant lesion Neuro: Normal gait, Normal speech, Strength at 5/5 X4 ext, Normal tone, Sensation intact, Cranial nerves 3-12 NL Psych/Mental Status: Mental status NL, Mood NL Labs/Xrays Labs, imaging and ED notes reviewed Labs Test 01/16/24 07:05 01/16/24 06:42 Range/Units White Blood Count 2.2 L 4.4-10.8 10^3/uL Red Blood Count 2.72 L 4.5-5.90 10^6/uL Hemoglobin 7.8 L 13.5-17.5 g/dL Hematocrit 23.1 L 41.0-53.0 % Mean Corpuscular Volume 85.1 80.0-100.0 fL Mean Corpuscular Hemoglobin 28.9 28.0-32.0 pg Mean Corpuscular Hemoglobin Concent 33.9 32.0-36.0 g/dL Red Cell Distribution Width 14.2 11.8-14.3 % Platelet Count 59 L 140-450 10^3/uL Mean Platelet Volume 9.0 6.9-10.8 fL Neutrophils (%) (Auto) 37.0-80.0 % Lymphocytes (%) (Auto) 10.0-50.0 % Monocytes (%) (Auto) 0.0-12.0 % Basophils (%) (Auto) 0.0-2.0 % Neutrophils # (Auto) 1.6-8.6 10 ^3/uL Lymphocytes # (Auto) 0.4-5.4 10 ^3/uL Monocytes # (Auto) 0-1.3 10 ^3/uL Differential Total Cells Counted 100.0 100 Neutrophils % (Manual) 41 37.0-80.0 Band Neutrophils % (Manual) 0 Lymphocytes % (Manual) 36 10.0-50.0 Monocytes % (Manual) 0 0-12 Eosinophils % (Manual) 23 H 0-7 Basophils % (Manual) 0 0.0-2.0 Metamyelocytes % (manual) 0 Myelocytes % (Manual) 0 Promyelocytes % (Manual) 0 Blast Cells % (Manual) 0 Reactive Lymphocytes 0 Platelet Estimate Decreased Prothrombin Time 11.0 9.3-11.8 sec Prothrombin Time INR 1.04 0.9-1.15 Activated Partial Thromboplast Time 26.0 24.5-34.5 SEC Sodium Level 139 136-145 mmol/L Potassium Level 3.6 3.5-5.1 mmol/L Chloride Level 108 H 98-107 mmol/L Carbon Dioxide Level 23 20-31 mmol/L Anion Gap 8 5-15 Blood Urea Nitrogen 16 9-23 mg/dL Creatinine 0.87 0.700-1.30 mg/dL Glomerular Filtration Rate Calc 95 >90 mL/min BUN/Creatinine Ratio 18.4 10.0-20.0 Serum Glucose 98 74-106 mg/dL Calcium Level 9.8 8.7-10.4 mg/dL Total Bilirubin 0.5 0.2-1.0 mg/dL Aspartate Amino Transferase (AST) 38 13-40 U/L Alanine Aminotransferase (ALT) 108 H 7-40 U/L Alkaline Phosphatase 115 46-116 U/L Troponin I High Sensitivity < 3 L </=54 ng/L Total Protein 7.6 5.7-8.2 g/dL Albumin 4.2 3.2-4.8 g/dL POC Glucose 110 H 70-106 mg/dl Assessment/Plan Assessment/Plan Acute on chronic anemia, secondary to myelodysplastic syndrome Admit to medical/surgical Hemoglobin 7.8 g per dL- transfuse 1 unit of blood Monitor blood pressures Follow up H and H Pancytopenia Monitor labs in a.m. Current platelet count at baseline Patient will follow up with heme/Onc outpatient Monitor for bleeding Chronic hyperlipidemia Continue home meds FEN/PPX Regular diet VTE prophylaxis not indicated GI prophylaxis not History schizophrenia Continue home meds Plan discussed with: Patient My Orders Orders - SELINA PATTEN Procedure Category Date Status Time Admit ADMIT 01/16/24 Transmitted 13:30 Code Status CODE 01/16/24 Transmitted 13:30 Vital Signs [facility] 01/16/24 In Process 13:30 Review Orders With [facility] 01/16/24 In Process Adm.Md 13:30 Notify Md Of Changes [facility] 01/16/24 In Process From Base 13:30 Advance Directive [facility] 01/16/24 In Process 13:30 Patient Condition ORDERS 01/16/24 Transmitted 13:30 Allergies KATIA 01/16/24 In Process 13:30 Hydrocodone-Acet PHA 01/16/24 In Process 5/325mg Tab ([place] 13:45 Transfuse Blood ORDERS 01/16/24 Transmitted Product 13:43 Packedcell-Noactive BBK 01/16/24 Logged Bleeding 13:43 Obtain Consent For KATIA 01/16/24 In Process Anesthesia 13:43 Obtain Consent For: ORDERS 01/16/24 Transmitted 13:49 Date of Service: Jan 16, 2024 Billing Provider: SELINA PATTEN Common Visit Codes: [id number] INP/OBS CARE (HIGH) SELINA PATTEN Jan 16, 2024 14:24
[2024-01-16] MEDS: ATORVASTATIN 20 MG TAB PO SCH (21:19)
[2024-01-16] MEDS ORDERED: risperiDONE 1 MG TAB PO SCH (22:00)
[2024-01-17] VITALS (16 sets, daily range): BP systolic 81–105; BP diastolic 47–67; PULSE 70–83; RESP 15–19; TEMP 97.6–98.7; O2SAT 93–98
[2024-01-17 06:56] LABS: Hemoglobin 7.4 g/dL (13.5-17.5)
--- NOTE | 2024-01-17 07:10 | ECG ---
[facility] Test Date: 2024-01-16 Test Time: 06:34:49 Pat Name: MEME ALONSO Department: ED Room: 0294 A Gender: M [employer]: MAO : 1955 Requested By: GODWIN CHRISTIANSEN Order Number: [id number] Reading MD: Davide Villa Measurements Intervals [place] Rate: 87 P: 55 [place]: 145 QRS: 72 QRSD: 108 T: 48 QT: 364 QTc: 438 Interpretive Statements Sinus rhythm Electronically Signed On 01-18-2024 14:38:20 PDT by Davide Villa Please click the below link to view image of tracing.
[2024-01-17] MEDS: ASPirin-EC 81 mg tab PO SCH (10:00)
[2024-01-17] MEDS: FOLIC ACID 1 MG TAB PO SCH (10:58)
[2024-01-17] MEDS: risperiDONE 1 MG TAB PO SCH (10:59)
--- NOTE | 2024-01-17 13:51 | DVHPN2 ---
Subjective Patient was states that his dizziness has improved. Reviewed: Care Plan, H&P, Labs, Medications, Previous Orders Changes from previous H/P or p: No Changes General: Per HPI Eyes: No Pain, No Vision change, No Conjunctivae inflammation, No Eyelid inflammation, No Other, No Redness ENT: No Ear pain, No Ear discharge, No Nose pain, No Nose discharge, No Nose congestion, No Mouth pain, No Mouth swelling, No Throat pain, No Throat swelling, No Other Cardiovascular: No Chest Pain, No Palpitations, No Orthopnea, No Paroxysmal Noc. Dyspnea, No Edema, No Lt Headedness; Other (Hypotensive) Respiratory: No Cough, No Dry, No Shortness of breath, No SOB with excertion, No Wheezing, No Hemoptysis, No Pleuritic Pain, No Sputum, No Other Gastrointestinal: No Nausea, No Vomiting, No Abdominal Pain, No Diarrhea, No Constipation, No Melena, No Hematochezia, No Other Genitourinary: No Dysuria, No Frequency, No Incontinence, No Hematuria, No Retention, No Other Musculoskeletal: No other, No neck pain, No shoulder pain, No arm pain, No back pain, No hand pain, No leg pain, No foot pain Skin: No Rash, No Lesions, No Jaundice, No Bruising, No Other Objective Vitals Vital Signs Date Time Temp Pulse Resp B/P (MAP) Pulse Ox O2 Delivery O2 Flow Rate FiO2 01/17/24 12:43 97.8 81 15 105/67 (80) 96 97.8 01/17/24 07:52 Room Air* 0 21 Intake/Output Intake and Output 01/17/24 07:00 Intake Total 800 ml Output Total 625 ml Balance 175 ml Intake Oral 500 ml Blood Product 300 ml Output Urine Total 625 ml # Voids 2 General Appearance: Alert, Oriented X3, Cooperative, No acute distress HEENT: Atraumatic, PERRLA Lungs: Clear to auscultation, Normal air movement Cardiovascular: Normal S1, Normal S2 Abdomen: Normal bowel sounds, Soft, No tenderness Genitourinary: No Apparent Abnormalities Musculoskeletal: Normal sensory function, Normal motor function Neuro: Normal speech Psych/Mental Status: Mental status NL, Mood NL Medications Current Medications Medications Dose Ordered Sig/Fabricio Route Start Time Stop Time Status Last Admin Dose Admin Acetaminophen/ Hydrocodone Bitart 1 tab Q4HPRN PRN PO 01/16/24 13:45 Aspirin 81 mg DAILY PO 01/17/24 10:00 Atorvastatin Calcium 40 mg HS PO 01/16/24 22:00 01/16/24 21:19 40 MG Folic Acid 1 mg DAILY PO 01/17/24 10:00 01/17/24 10:58 1 MG Risperidone 2 mg DAILY PO 01/17/24 10:00 01/17/24 10:59 2 MG Laboratory Results Laboratory Tests 01/16/24 07:05 01/17/24 05:17 Labs and/or images reviewed: Labs reviewed by me, Image(s) reviewed by me Assessment/Plan Assessment/Plan Impression: -symptomatic anemia -myelodysplastic syndrome -schizophrenia Plan: -patient received 1 unit of PRBCs yesterday with hemoglobin actually decreasing from 7.8-7.4. Patient will be transfuse one additional unit. -orthostatic blood pressure before and after blood transfusion -continue risperidone -consider midodrine if patient does have orthostatic blood pressure -H&H in a.m. Total time spent with patient discussing and formulating plan of care: 35 minutes. This medical document was created using an electronic medical record system with [employer] dictation system. Although this document has been carefully reviewed, there may still be some phonetic and typographical errors. These areas are purely typographical due to imperfections of the software programs, and do not reflect any compromise in the patient's medical care. Plan discussed with: Patient, Other (RN) My Orders Orders - YOANDY SALAS NP Procedure Category Date Status Time Orthostatic Vital ORDERS 01/17/24 Transmitted Signs 13:38 Basic Metabolic Panel LAB 01/18/24 Verified 04:00 Complete Blood Count LAB 01/18/24 Verified 04:00 Date of Service: Jan 17, 2024 Billing Provider: YOANDY SALAS NP Common Visit Codes: [id number] INP/OBS CARE(HIGH) YOANDY SALAS NP Jan 17, 2024 13:51
[2024-01-18] VITALS (7 sets, daily range): BP systolic 85–93; BP diastolic 46–56; PULSE 75–89; RESP 16–17; TEMP 98.2–98.9; O2SAT 95–97
[2024-01-18 08:53] LABS: White Blood Cell 3.5 10^3/uL (4.4-10.8)
[2024-01-18 08:54] LABS: Hematocrit 28.8 % (41.0-53.0); Hemoglobin 9.7 g/dL (13.5-17.5); Mean Corpuscular Hemoglobin 28.7 pg (28.0-32.0); Mean Corpuscular Hgb Conc. 33.6 g/dL (32.0-36.0); Mean Corpuscular Volume 85.3 fL (80.0-100.0); Platelet Count (auto) 52 10^3/uL (140-450); Red Blood Cells 3.37 10^6/uL (4.5-5.90); Red Cell Distribution Width 14.8 % (11.8-14.3)
[2024-01-18 08:56] LABS: Chloride 109 mmol/L (98-107); Potassium 4.3 mmol/L (3.5-5.1); Sodium 140 mmol/L (136-145)
[2024-01-18 08:57] LABS: Anion Gap 7 (5-15); Carbon Dioxide 24 mmol/L (20-31)
[2024-01-18 09:00] LABS: Basophils % (manual) 0 (0.0-2.0); Blast Cells 0; Metamyelocytes % 0; Myelocytes % 0; Promyelocytes % 0; Reactive Lymphocytes 0
[2024-01-18 09:03] LABS: BUN/Creatinine Ratio 14.8 (10.0-20.0); Blood Urea Nitrogen 12 mg/dL (9-23); Glucose 124 mg/dL (74-106)
[2024-01-18 09:36] LABS: Band Neutrophils % (manual) 6; Eosinophils % (manual) 27 (0-7); Lymphocytes % (manual) 15 (10.0-50.0); Monocytes % (manual) 5 (0-12); Platelet Estimate Decreased
[2024-01-18] MEDS: MIDODRINE HCL 10 MG TAB PO SCH (12:18)
[2024-01-18] MEDS ORDERED: MIDO5TAB4 PO (14:21)
--- NOTE | 2024-01-18 14:26 | DVHDS2 ---
Discharge Summary Date of Admission Jan 16, 2024 at 13:30 Date of Discharge: Jan 18, 2024 Admitting Diagnosis Syncope with collapse Labs/Diagnostic Data: Laboratory Results Test 01/18/24 08:17 01/16/24 07:05 01/16/24 06:42 White Blood Count 3.5 10^3/uL (4.4-10.8) Red Blood Count 3.37 10^6/uL (4.5-5.90) Hemoglobin 9.7 g/dL (13.5-17.5) Hematocrit 28.8 % (41.0-53.0) Mean Corpuscular Volume 85.3 fL (80.0-100.0) Mean Corpuscular Hemoglobin 28.7 pg (28.0-32.0) Mean Corpuscular Hemoglobin Concent 33.6 g/dL (32.0-36.0) Red Cell Distribution Width 14.8 % (11.8-14.3) Platelet Count 52 10^3/uL (140-450) Mean Platelet Volume 8.9 fL (6.9-10.8) Neutrophils (%) (Auto) % (37.0-80.0) Lymphocytes (%) (Auto) % (10.0-50.0) Monocytes (%) (Auto) % (0.0-12.0) Eosinophils (%) (Auto) % (0.0-7.0) Basophils (%) (Auto) % (0.0-2.0) Neutrophils # (Auto) 10 ^3/uL (1.6-8.6) Lymphocytes # (Auto) 10 ^3/uL (0.4-5.4) Monocytes # (Auto) 10 ^3/uL (0-1.3) Differential Total Cells Counted 100.0 (100) Neutrophils % (Manual) 47 (37.0-80.0) Band Neutrophils % (Manual) 6 Lymphocytes % (Manual) 15 (10.0-50.0) Monocytes % (Manual) 5 (0-12) Eosinophils % (Manual) 27 (0-7) Basophils % (Manual) 0 (0.0-2.0) Metamyelocytes % (manual) 0 Myelocytes % (Manual) 0 Promyelocytes % (Manual) 0 Blast Cells % (Manual) 0 Reactive Lymphocytes 0 Platelet Estimate Decreased Joie Cells Few Sodium Level 140 mmol/L (136-145) Potassium Level 4.3 mmol/L (3.5-5.1) Chloride Level 109 mmol/L (98-107) Carbon Dioxide Level 24 mmol/L (20-31) Anion Gap 7 (5-15) Blood Urea Nitrogen 12 mg/dL (9-23) Creatinine 0.81 mg/dL (0.700-1.30) Glomerular Filtration Rate Calc 97 mL/min (>90) BUN/Creatinine Ratio 14.8 (10.0-20.0) Serum Glucose 124 mg/dL (74-106) Calcium Level 10.0 mg/dL (8.7-10.4) Prothrombin Time 11.0 sec (9.3-11.8) Prothrombin Time INR 1.04 (0.9-1.15) Activated Partial Thromboplast Time 26.0 SEC (24.5-34.5) Total Bilirubin 0.5 mg/dL (0.2-1.0) Aspartate Amino Transferase (AST) 38 U/L (13-40) Alanine Aminotransferase (ALT) 108 U/L (7-40) Alkaline Phosphatase 115 U/L (46-116) Troponin I High Sensitivity < 3 ng/L (</=54) Total Protein 7.6 g/dL (5.7-8.2) Albumin 4.2 g/dL (3.2-4.8) POC Glucose 110 mg/dl (70-106) Other Laboratory Tests 01/18/24 08:17 Brief Hx & Hospital Course: History of Present Illness 68-year-old male presented to the ED with chief complaint of syncope onset yesterday. Patient states he was trying to urinate and he experienced a syncopal episode, denies any head injury. Patient has history of myelodysplastic syndrome, has a history of weekly blood transfusions. Patient is currently dizzy, but denies chest pain, abdominal pain, nausea, vomiting and shortness of breath. Patient is noted to also be hypotensive. Patient's hemoglobin 7.8, WBCs 2.2, platelets 59. Patient denies chest pain, headache, diaphoresis, shortness of breath, abdominal pain, no nausea, vomiting, fever, or chills endorsed by the patient. Patient was admitted for further evaluation medical management. Course of hospitalization: Patient was given a total of 2 units PRBCs. Hemoglobin is now 9.7. The patient has been ambulating without any further dizziness, near-syncope. Patient was noted to have no orthostatic hypotension. Patient also continued to have borderline hypotension with blood pressure in the high 80s, 90s mm Hg systolic. Patient was started on midodrine 5 mg p.o. t.i.d.. Patient was also admitted less than two weeks ago with similar symptoms and had full syncope workup including CT scan of the head. He was agreeable to be discharged home and follow up with the PCP, Dr. Bosch in 1-2 weeks. He will continue all previous home medications. The patient will also be continued on midodrine as previously ordered. Physical examination General: Alert and Oriented x3. No acute distress. Well-nourished. Eyes: EOMI. Anicteric. HENT: Moist mucous membranes. Lungs: Clear to auscultation bilaterally. No accessory muscle use. Cardiovascular: Regular rate and rhythm. No murmur. No JVD. Abdomen: Soft, non-tender and non-distended. No palpable masses. Extremities: No edema. Non-tender. Skin: No rashes or lesions. Warm. Neurologic: No focal neurological deficits. CN II-XII grossly intact, but not individually tested. Psychiatric: Cooperative. Appropriate mood and affect. Total time spent with patient discussing and formulating plan of care: 35 minutes. This medical document was created using an electronic medical record system with [employer] dictation system. Although this document has been carefully reviewed, there may still be some phonetic and typographical errors. These areas are purely typographical due to imperfections of the software programs, and do not reflect any compromise in the patient's medical care. Condition at Discharge: Guarded Final Diagnosis/Problems List Syncope with collapse Secondary Diagnosis: -symptomatic anemia -myelodysplastic syndrome -schizophrenia Discharge Disposition: Home Discharge Instruct/Medications Diet: Regular Follow Up/Referral: PCP in one week Medications: Continue all previous home Medications midodrine 5 mg p.o. t.i.d. 36 Discharge Statement: "Patient was advised to return to the ER or call 911 if any headaches, dizziness, shortness of breath, chest pain, abdominal pain, bleeding, fevers, or worsening of medical condition. Patient was counseled about treatment plan, medications, possible side effects, patientverbalized understanding. All questions were answered to the best of my ability. This discharge took greater then 30 minutes in planning, reviewing documentation, counseling the patient, and discussing with other team members." ASSESSMENT ASSESSMENT Assessment Date of Service: Jan 18, 2024 Billing Provider: YOANDY SALAS NP Common Visit Codes: 36914-JJY/OBS DISCH DAY >30min YOANDY SALAS NP Jan 18, 2024 14:26
== END 2024-01-18 16:35 | disposition home or self-care (01) | DRG 663 ==
LOC: ER 06:23 → OVERFLOW 13:30 → WEST WING 16:08
PROVIDERS: ADMIT Registered Nurse General Practice; ATTEND Nurse Practitioner Acute Care
PROC: 30233N1 Transfusion of Nonautologous Red Blood Cells into Peripheral Vein, Percutaneous Approach (ICD-10-PCS; principal; 2024-01-16)
DX: D64.89 Other specified anemias (principal); I95.9 Hypotension, unspecified; E78.5 Hyperlipidemia, unspecified; F20.9 Schizophrenia, unspecified; J44.9 Chronic obstructive pulmonary disease, unspecified; F17.210 Nicotine dependence, cigarettes, uncomplicated; Z85.46 Personal history of malignant neoplasm of prostate; Z79.899 Other long term (current) drug therapy; Z79.82 Long term (current) use of aspirin
CPT/HCPCS: 36415; 80048; 80053; 82962; 84484; 85007; 85014; 85018; 85027; 85610; 85730; 86850; 86900; 86901; 86902; 86922; 93005; G0378

== ENCOUNTER 2024-01-23 05:54 | Emergency (ER) | payer MEDICARE, MEDICAID ==
[~2024-01-23] VITALS: Ht 180.3 cm; Wt 78.2 kg
[~2024-01-23 05:54] MED LIST changes: +MIDO5TAB4 PO
[2024-01-23 06:05] VITALS: BP 101/67; PULSE 81; RESP 16; O2SAT 100
--- NOTE | 2024-01-23 07:04 | ED.PDOC ---
History of Present Illness HPI Comments 68 y/o M, with a Hx of anemia w/blood transfusions, prostate CA, COPD, schizophrenia, and tobacco use, presents with c/o dizziness and generalized weakness, today. Patient endorses on unprovoked and sudden onset of symptoms, this morning, and states on needing another blood transfusion, again, due to Hx of similar symptoms when he was anemic in the past. Patient endorses on most recent blood transfusion taking place a week ago at [facility]. Per [facility] medical record, patient has a Hx of multiple visits in the past for similar complaints. Patient denies having any vision or speech changes, chest pain, shortness of breath, fever, chills, or other associated symptoms or modifiers at this time. Chief Complaint: Abnormal LAB's Time Seen by MD: 06:25 Primary Care Provider: Jhon Reviewed Notes: Nurses Notes, Medications, Allergies Allergies: Coded Allergies: NO KNOWN ALLERGIES (Unverified , 12/04/23) Home Meds Active Scripts Midodrine Hcl (Midodrine Hcl) 5 Mg Tab, 5 MG PO TID for 30 Days, #90 TAB Prov:YOANDY SALAS GALLERY INTERN 01/18/24 Reported Medications Risperidone (Risperidone) 2 Mg Tab, 2 MG PO BID, TAB 12/05/23 Nicotine (Nicoderm 21MG/24HR) 1 Patch Ph, 1 PATCH TOP DAILY, #28 PATCH 1 Refill 12/05/23 Mirtazapine (Mirtazapine Oral Disintegrating Tablet) 45 Mg Tab, 1 TAB PO QPM, #30 TAB 1 Refill 12/05/23 Melatonin (KP MELATONIN) 3 Mg Tab, 3 MG PO, TAB 12/05/23 Loperamide Hcl (Loperamide Hcl) 2 Mg Cap, 2 MG PO, MG 12/05/23 Leuprolide Acetate (3 Month) (Lupron Depot) 22.5 Mg Inj, 22.5 MG IM, INJ 12/05/23 Gabapentin (Gabapentin) 600 Mg Tab, 600 MG PO BID, TAB 12/05/23 Folic Acid (Folic Acid) 1 Mg Tab, 1 MG PO DAILY for 30 Days, MG 12/05/23 Fluticasone Furoate (Inhalatio (Arnuity Ellipta) 200 Mcg/Act Inh, 200 MCG IN, INHALER 12/05/23 Clotrimazole (Clotrimazole) 1 % Cre, 1 APPLIC TOP Q12HR for 30 Days, APPLIC 12/05/23 Atorvastatin Calcium (ATORVASTATIN CALCIUM) 40 Mg Tab, 1 TAB PO DAILY, #30 TAB 5 Refills 12/05/23 Aspirin (Aspir-Low) 81 Mg Tab, 81 MG PO DAILY for 30 Days, MG 12/05/23 Albuterol Sulfate (VENTOLIN MDI) 90 Mcg Ih, 90 MCG IN, INH 12/05/23 Information Source: Patient Mode of Arrival: Ambulatory Severity: Moderate Timing: Weeks Duration: Since onset Prehospital treatment: None Past Medical History PAST MEDICAL HISTORY: Anemia, Cancer (prostate ), COPD, Schizophrenia Surgical History: Denies all surgeries Family History Family History: Reviewed,noncontributory to illness, Unknown Social History Smoker: Cigarettes Alcohol: Denies ETOH Use Drugs: Denies Drug Use Lives In: Home Constitutional: denies: chills, diaphoresis, fatigue, fever, malaise, sweats, weakness, others EENTM: denies: blurred vision, double vision, ear bleeding, ear discharge, ear drainage, ear pain, ear ringing, eye pain, eye redness, hearing loss, mouth pain, mouth swelling, nasal discharge, nose bleeding, nose congestion, nose pain, photophobia, tearing, throat pain, throat swelling, voice changes, others Respiratory: denies: cough, hemoptysis, orthopnea, SOB at rest, shortness of breath, SOB with excertion, stridor, wheezing, others Cardiovascular: denies: chest pain, dizzy spells, diaphoresis, Dyspnea on exertion, edema, irregular heart beat, left arm pain, lightheadedness, palpitations, PND, syncope, others Gastrointestinal: denies: abdomen distended, abdominal pain, blood streaked bowels, constipated, diarrhea, dysphagia, difficulty swallowing, hematemesis, melena, nausea, poor appetite, poor fluid intake, rectal bleeding, rectal pain, vomiting, others Genitourinary: denies: burning, dysuria, flank pain, frequency, hematuria, incontinence, penile discharge, penile sore, pain, testicle pain, testicle swelling, urgency, others Neurological: reports: dizziness, weakness; denies: fainting, headache, left sided numbness, left sided weakness, numbness, paresthesia, pre-existing deficit, right sided numbness, right sided weakness, seizure, speech problems, tingling, tremors, others Musculoskeletal: denies: back pain, gout, joint pain, joint swelling, muscle pain, muscle stiffness, neck pain, others Integumetry: denies: bruises, change in color, change in hair/nails, dryness, laceration, lesions, lumps, rash, wounds, others Allergic/Immunocompromised: denies: Difficulty Healing, Frequent Infections, Hives, Itching, others Hematologic/Lymphatic: denies: anemia, blood clots, easy bleeding, easy bruising, swollen glands, others Endocrine: denies: excessive hunger, excessive sweating, excessive thirst, excessive urination, flushing, intolerance to cold, intolerance to heat, unexplained weight gain, unexplained weight loss, others Psychiatric: denies: anxiety, bipolar disorder, depression, hopeless, panic disorder, schizophrenia, sleepless, suicidal, others All Other Systems: Reviewed and Negative Physical Exam General Appearance: Moderate Distress HEENT: Normal ENT Inspection, Pharynx Normal, TMs Normal Neck: Full Range of Motion, Non-Tender, Normal, Normal Inspection Respiratory: Chest Non-Tender, Lungs Clear, No Accessory Muscle Use, No Respiratory Distress, Normal Breath Sounds Cardiovascular: No Edema, No JVD, No Murmur, No Gallop, Normal Peripheral Pulses, Regular Rate/Rhythm Breast Exam: Deferred Gastrointestinal: No Organomegaly, Non Tender, No Pulsatile Mass, Normal Bowel Sounds, Soft Genitalia: Deferred Pelvic: Deferred Rectal: Deferred Extremities: No calf tenderness, Normal capillary refill, Normal inspection, No rmal range of motion, Non-tender, No pedal edema Musculoskeletal : Apperance: Normal Neurologic: Alert, plaster helper II-XII nml as Tested, No Motor Deficits, Normal Affect, Normal Mood, No Sensory Deficits Cerebellar Function: Normal Reflexes: Normal Skin: Dry, Pallor, Warm Peripheral Pulses: 3+ Radial (R), 3+ Radial (L) Lymphatic: No Adenopathy Was a procedure done? Was a procedure done?: No Differential Dx Considerations may include: anemia, electrolyte imbalance, dehydration, vertigo, viral syndrome X-Ray, Labs, Meds, VS Vital Signs Date Time Temp Pulse Resp B/P (MAP) Pulse Ox O2 Delivery O2 Flow Rate FiO2 01/23/24 06:05 98.8 81 16 101/67 (78) 100 Patient alert. Came in for feeling weak. He does have chronic history. Vitals stable. Answering all questions. History of anemia. He does get blood transfusion. Reviewed his previous visit. Explained to the patient. Continue cardiac monitoring. Time of 1ST Reevaluation: 06:55 Reevaluation 1ST: Unchanged Patient Education/Counseling: Diagnosis, Treatment Family Education/Counseling: No Family Present Departure 1 Departure Time of Disposition: 07:12 Impression: Primary Impression: Severe anemia Additional Impression: Weakness Disposition: ADMITTED INPATIENT Admit to: Med Surg Condition: Guarded Critical Care Note Critical Care Time?: Yes (45 min-critical care time only) Stability Stability form required: No Heart Score Heart Score: Heart Score Response (Comments) Value History N/A 0 EKG N/A 0 Age N/A 0 Risk Factors N/A 0 Troponin N/A 0 Total 0 I personally scribed for TEE ATKINS MD ([email or web address]) on 01/23/24 at 07:04. Electronically submitted by Leo Elizabeth [email or web address]). TEE ATKINS MD Jan 23, 2024 07:04
[2024-01-23 07:59] LABS: Hematocrit 26.5 % (41.0-53.0); Hemoglobin 8.8 g/dL (13.5-17.5); Mean Corpuscular Hemoglobin 28.6 pg (28.0-32.0); Mean Corpuscular Hgb Conc. 33.2 g/dL (32.0-36.0); Mean Corpuscular Volume 86.1 fL (80.0-100.0); Platelet Count (auto) 81 10^3/uL (140-450); Red Blood Cells 3.07 10^6/uL (4.5-5.90); Red Cell Distribution Width 14.5 % (11.8-14.3); White Blood Cell 2.6 10^3/uL (4.4-10.8)
[2024-01-23 08:09] LABS: Band Neutrophils % (manual) 0; Basophils % (manual) 0 (0.0-2.0); Blast Cells 0; Metamyelocytes % 0; Myelocytes % 0; Promyelocytes % 0; Reactive Lymphocytes 0
[2024-01-23 08:10] LABS: Chloride 108 mmol/L (98-107); Potassium 4.4 mmol/L (3.5-5.1); Sodium 138 mmol/L (136-145)
[2024-01-23 08:13] LABS: Anion Gap 7 (5-15); Calcium 9.7 mg/dL (8.7-10.4); Carbon Dioxide 23 mmol/L (20-31)
[2024-01-23 08:18] LABS: Blood Urea Nitrogen 12 mg/dL (9-23); Glucose 96 mg/dL (74-106)
[2024-01-23 08:49] LABS: Eosinophils % (manual) 21 (0-7); Lymphocytes % (manual) 25 (10.0-50.0); Monocytes % (manual) 4 (0-12)
[2024-01-23 08:50] LABS: Platelet Estimate Decreased
== END 2024-01-23 08:17 | disposition left against medical advice (07) ==
LOC: ER 05:54
DX: D64.9 Anemia, unspecified (principal); R42 Dizziness and giddiness; J44.9 Chronic obstructive pulmonary disease, unspecified; F17.210 Nicotine dependence, cigarettes, uncomplicated; F20.9 Schizophrenia, unspecified; Z85.46 Personal history of malignant neoplasm of prostate
CPT/HCPCS: 36415; 80048; 85007; 85027; 99291

== ENCOUNTER 2024-01-30 06:00 | Inpatient (IN) | payer MEDICARE, MEDICAID ==
[~2024-01-30] VITALS: Ht 180.3 cm; Wt 81.0 kg
--- NOTE | 2024-01-30 07:14 | DVH ---
CLINICAL INFORMATION: 68 years old, Male; fall injury. TECHNIQUE: Axial imaging was obtained through the brain without contrast. Coronal and sagittal refor matted images were obtained, reviewed, and stored. Images were reviewed in brain and bone windows. A ll CT scans at this medical facility are performed using dose modulation techniques as appropriate to a performed exam including the following: Automated exposure control was utilized; Adjustment of the MA And/or KV according to patient size; And use of iterative reconstruction technique. CTDIvol = 64.66 mGy DLP = 1272.55 mGy-cm COMPARISON: CT HEAD WITHOUT CONTRAST on DOS: 01/02/24 FINDINGS: There is no acute intracranial hemorrhage or extraaxial fluid collection. No mass effect o r midline shift. The ventricles and sulci are within normal limits in size for age. Basal cisterns a re patent. The calvarium is unremarkable. Paranasal sinuses and mastoid air cells are clear. IMPRESSION: No CT evidence of acute intracranial abnormality.
[2024-01-30 07:34] LABS: White Blood Cell 3.1 10^3/uL (4.4-10.8)
[2024-01-30 07:35] LABS: Hematocrit 20.9 % (41.0-53.0); Mean Corpuscular Hemoglobin 28.4 pg (28.0-32.0); Mean Corpuscular Hgb Conc. 33.4 g/dL (32.0-36.0); Mean Corpuscular Volume 85.1 fL (80.0-100.0); Platelet Count (auto) 83 10^3/uL (140-450); Red Blood Cells 2.45 10^6/uL (4.5-5.90); Red Cell Distribution Width 14.5 % (11.8-14.3)
[2024-01-30 07:41] LABS: Basophils % (manual) 0 (0.0-2.0); Blast Cells 0; Metamyelocytes % 0; Promyelocytes % 0; Reactive Lymphocytes 0
[2024-01-30 07:52] LABS: Chloride 109 mmol/L (98-107); Potassium 4.4 mmol/L (3.5-5.1); Sodium 140 mmol/L (136-145)
[2024-01-30 07:53] LABS: Anion Gap 2 (5-15); Calcium 9.4 mg/dL (8.7-10.4); Carbon Dioxide 29 mmol/L (20-31)
--- NOTE | 2024-01-30 07:53 | ED.PDOC ---
History of Present Illness HPI Comments 68 y/o M, with a Hx of anemia w/blood transfusions, prostate CA, COPD, schizophrenia, frequent ED visits, and tobacco use, presents for blood transfusion inquiry, today. Patient states on returning to the ED, again, for blood transfusions after having intermittent dizziness w/1x syncopal episode and fall w/head injury, yesterday. Patient informs on coming-to after losing consciousness and not seeking medical attention then in addition to receiving last transfusions at [facility] 2x weeks ago. Patient denies having any shortness of breath, headache, weakness, numbness, tingling, speech or vision changes, or other associated symptoms or modifiers at this time. Chief Complaint: Dizziness Time Seen by MD: 06:45 Primary Care Provider: Jhon Reviewed Notes: Nurses Notes, Medications, Allergies Allergies: Coded Allergies: NO KNOWN ALLERGIES (Unverified , 12/04/23) Home Meds Active Scripts Midodrine Hcl (Midodrine Hcl) 5 Mg Tab, 5 MG PO TID for 30 Days, #90 TAB Prov:YOANDY SALAS NURSING PROGRAM COORDINATOR 01/18/24 Reported Medications Risperidone (Risperidone) 2 Mg Tab, 2 MG PO BID, TAB 12/05/23 Nicotine (Nicoderm 21MG/24HR) 1 Patch Ph, 1 PATCH TOP DAILY, #28 PATCH 1 Refill 12/05/23 Mirtazapine (Mirtazapine Oral Disintegrating Tablet) 45 Mg Tab, 1 TAB PO QPM, #30 TAB 1 Refill 12/05/23 Melatonin (KP MELATONIN) 3 Mg Tab, 3 MG PO, TAB 12/05/23 Loperamide Hcl (Loperamide Hcl) 2 Mg Cap, 2 MG PO, MG 12/05/23 Leuprolide Acetate (3 Month) (Lupron Depot) 22.5 Mg Inj, 22.5 MG IM, INJ 12/05/23 Gabapentin (Gabapentin) 600 Mg Tab, 600 MG PO BID, TAB 12/05/23 Folic Acid (Folic Acid) 1 Mg Tab, 1 MG PO DAILY for 30 Days, MG 12/05/23 Fluticasone Furoate (Inhalatio (Arnuity Ellipta) 200 Mcg/Act Inh, 200 MCG IN, INHALER 12/05/23 Clotrimazole (Clotrimazole) 1 % Cre, 1 APPLIC TOP Q12HR for 30 Days, APPLIC 12/05/23 Atorvastatin Calcium (ATORVASTATIN CALCIUM) 40 Mg Tab, 1 TAB PO DAILY, #30 TAB 5 Refills 12/05/23 Aspirin (Aspir-Low) 81 Mg Tab, 81 MG PO DAILY for 30 Days, MG 12/05/23 Albuterol Sulfate (VENTOLIN MDI) 90 Mcg Ih, 90 MCG IN, INH 12/05/23 Information Source: Patient Mode of Arrival: Ambulatory Severity: Moderate Timing: Other (see HPI) Duration: Other (see HPI) Prehospital treatment: None Past Medical History PAST MEDICAL HISTORY: Anemia, Cancer (prostate), COPD, Schizophrenia Surgical History (Other): blood transfusions Family History Family History: Reviewed,noncontributory to illness, Unknown Social History Smoker: Cigarettes Alcohol: Denies ETOH Use Drugs: Denies Drug Use Lives In: Home Constitutional: denies: chills, diaphoresis, fatigue, fever, malaise, sweats, weakness, others EENTM: denies: blurred vision, double vision, ear bleeding, ear discharge, ear drainage, ear pain, ear ringing, eye pain, eye redness, hearing loss, mouth pain, mouth swelling, nasal discharge, nose bleeding, nose congestion, nose pain, photophobia, tearing, throat pain, throat swelling, voice changes, others Respiratory: denies: cough, hemoptysis, orthopnea, SOB at rest, shortness of breath, SOB with excertion, stridor, wheezing, others Cardiovascular: denies: chest pain, dizzy spells, diaphoresis, Dyspnea on exertion, edema, irregular heart beat, left arm pain, lightheadedness, palpitations, PND, syncope, others Gastrointestinal: denies: abdomen distended, abdominal pain, blood streaked bowels, constipated, diarrhea, dysphagia, difficulty swallowing, hematemesis, melena, nausea, poor appetite, poor fluid intake, rectal bleeding, rectal pain, vomiting, others Genitourinary: denies: burning, dysuria, flank pain, frequency, hematuria, incontinence, penile discharge, penile sore, pain, testicle pain, testicle swelling, urgency, others Neurological: denies: dizziness, fainting, headache, left sided numbness, left sided weakness, numbness, paresthesia, pre-existing deficit, right sided numbness, right sided weakness, seizure, speech problems, tingling, tremors, weakness, others Musculoskeletal: denies: back pain, gout, joint pain, joint swelling, muscle pain, muscle stiffness, neck pain, others Integumetry: denies: bruises, change in color, change in hair/nails, dryness, laceration, lesions, lumps, rash, wounds, others Allergic/Immunocompromised: denies: Difficulty Healing, Frequent Infections, Hives, Itching, others Hematologic/Lymphatic: denies: anemia, blood clots, easy bleeding, easy bruising, swollen glands, others Endocrine: denies: excessive hunger, excessive sweating, excessive thirst, excessive urination, flushing, intolerance to cold, intolerance to heat, unexplained weight gain, unexplained weight loss, others Psychiatric: denies: anxiety, bipolar disorder, depression, hopeless, panic disorder, schizophrenia, sleepless, suicidal, others All Other Systems: Reviewed and Negative (see HPI) Physical Exam General Appearance: Moderate Distress HEENT: Normal ENT Inspection, Pharynx Normal, TMs Normal Neck: Full Range of Motion, Non-Tender, Normal, Normal Inspection Respiratory: Chest Non-Tender, Lungs Clear, No Accessory Muscle Use, No Respiratory Distress, Normal Breath Sounds Cardiovascular: No Edema, No JVD, No Murmur, No Gallop, Normal Peripheral Pulses, Regular Rate/Rhythm Breast Exam: Deferred Gastrointestinal: No Organomegaly, Non Tender, No Pulsatile Mass, Normal Bowel Sounds, Soft Genitalia: Deferred Pelvic: Deferred Rectal: Deferred Extremities: No calf tenderness, Normal capillary refill, Normal inspection, Normal range of motion, Non-tender, No pedal edema Musculoskeletal : Apperance: Normal Neurologic: Alert, letterer II-XII nml as Tested, No Motor Deficits, Normal Affect, Normal Mood, No Sensory Deficits Cerebellar Function: NOT DONE Reflexes: NOT DONE Skin: Pallor Peripheral Pulses: 3+ Radial (R), 3+ Radial (L) Lymphatic: No Adenopathy Was a procedure done? Was a procedure done?: No Differential Dx Considerations may include: anemia, closed head injury, intracranial bleed X-Ray, Labs, Meds, VS Vital Signs Date Time Temp Pulse Resp B/P (MAP) Pulse Ox O2 Delivery O2 Flow Rate FiO2 01/30/24 10:01 72 13 93/60 (71) 99 01/30/24 09:20 74 14 93 Room Air* 0 21 01/30/24 08:05 78 14 96/62 (73) 96 01/30/24 06:09 98.4 87 19 129/75 (93) 100 Lab Test 01/30/24 06:45 Range/Units White Blood Count 3.1 L 4.4-10.8 10^3/uL Red Blood Count 2.45 L 4.5-5.90 10^6/uL Hemoglobin 7.0 #*L 13.5-17.5 g/dL Hematocrit 20.9 #L 41.0-53.0 % Mean Corpuscular Volume 85.1 80.0-100.0 fL Mean Corpuscular Hemoglobin 28.4 28.0-32.0 pg Mean Corpuscular Hemoglobin Concent 33.4 32.0-36.0 g/dL Red Cell Distribution Width 14.5 H 11.8-14.3 % Platelet Count 83 L 140-450 10^3/uL Mean Platelet Volume 9.3 6.9-10.8 fL Neutrophils (%) (Auto) 37.0-80.0 % Lymphocytes (%) (Auto) 10.0-50.0 % Monocytes (%) (Auto) 0.0-12.0 % Eosinophils (%) (Auto) 0.0-7.0 % Basophils (%) (Auto) 0.0-2.0 % Neutrophils # (Auto) 1.6-8.6 10 ^3/uL Lymphocytes # (Auto) 0.4-5.4 10 ^3/uL Monocytes # (Auto) 0-1.3 10 ^3/uL Differential Total Cells Counted 100.0 100 Neutrophils % (Manual) 40 37.0-80.0 Band Neutrophils % (Manual) 12 Lymphocytes % (Manual) 33 10.0-50.0 Monocytes % (Manual) 1 0-12 Eosinophils % (Manual) 13 H 0-7 Basophils % (Manual) 0 0.0-2.0 Metamyelocytes % (manual) 0 Myelocytes % (Manual) 1 Promyelocytes % (Manual) 0 Blast Cells % (Manual) 0 Reactive Lymphocytes 0 Platelet Estimate Decreased Sodium Level 140 136-145 mmol/L Potassium Level 4.4 3.5-5.1 mmol/L Chloride Level 109 H 98-107 mmol/L Carbon Dioxide Level 29 20-31 mmol/L Anion Gap 2 L 5-15 Blood Urea Nitrogen 15 9-23 mg/dL Creatinine 0.77 0.700-1.30 mg/dL Glomerular Filtration Rate Calc 99 >90 mL/min BUN/Creatinine Ratio 19.5 10.0-20.0 Serum Glucose 99 74-106 mg/dL Calcium Level 9.4 8.7-10.4 mg/dL Troponin I High Sensitivity < 3 L </=54 ng/L [place] [id number] Ph: [phone] DIAGNOSTIC IMAGING Diagnostic Imaging Report : [id number] Signed PATIENT: MEME ALONSO JR ACCT: [id number] UNIT: [id number] : 1955 LOC: ER ROOM / BED: / AGE / SEX: 68 / M ADM STATUS: REG ER SERVICE 3 ORDERING PHYSICIAN: TEE ATKINS MD PROCEDURE(s): HWOCT - HEAD WITHOUT CONTRAST REASON: fall ORDER NUMBER(s): [id number], ACCESSION NUMBER(s): [id number] CLINICAL INFORMATION: 68 years old, Male; fall injury. TECHNIQUE: Axial imaging was obtained through the brain without contrast. Coronal and sagittal reformatted images were obtained, reviewed, and stored. Images were reviewed in brain and bone windows. All CT scans at this medical facility are performed using dose modulation techniques as appropriate to a performed exam including the following: Automated exposure control was utilized; Adjustment of the MA And/or KV according to patient size; And use of iterative reconstruction technique. CTDIvol = 64.66 mGy DLP = 1272.55 mGy-cm COMPARISON: CT HEAD WITHOUT CONTRAST on DOS: 01/02/24 FINDINGS: There is no acute intracranial hemorrhage or extraaxial fluid collection. No mass effect or midline shift. The ventricles and sulci are within normal limits in size for age. Basal cisterns are patent. The calvarium is unremarkable. Paranasal sinuses and mastoid air cells are clear. IMPRESSION: No CT evidence of acute intracranial abnormality. ATED BY: HANK JEFFERY DO DICTATED DATE/TIME: 01/30/24710 SIGNED BY: HANK JEFFERY DO SIGNED DATE/TIME: 11/12/24 0711 CC: Patient alert. Status post fall. States that he landed on his head. CT of the head reviewed does not show any acute process. History of anemia. Hemoglobin is low. Blood transfusion. Last transfusion was few weeks ago. Vitals stable. Reviewed his previous visit. Explained to the patient. Continue cardiac monitoring. Time of 1ST Reevaluation: 07:15 Reevaluation 1ST: Unchanged Patient Education/Counseling: Diagnosis, Treatment Family Education/Counseling: No Family Present Departure 1 Departure Time of Disposition: 10:49 Impression: Primary Impression: Head injury Qualified Codes: S09.90XA - Unspecified injury of head, initial encounter Additional Impression: Severe anemia Disposition: ADMITTED INPATIENT Admit to: Med Surg Condition: Guarded Critical Care Note Critical Care Time?: Yes (45 min-critical care time only) Stability Stability form required: No Heart Score Heart Score: Heart Score Response (Comments) Value History N/A 0 EKG N/A 0 Age N/A 0 Risk Factors N/A 0 Troponin N/A 0 Total 0 I personally scribed for TEE ATKINS MD ([email or web address]) on 01/30/24 at 07:53. Electronically submitted by Leo Elizabeth [email or web address]). TEE ATKINS MD Jan 30, 2024 07:53
[2024-01-30 07:58] LABS: BUN/Creatinine Ratio 19.5 (10.0-20.0); Blood Urea Nitrogen 15 mg/dL (9-23); Glucose 99 mg/dL (74-106)
[2024-01-30 08:10] LABS: Band Neutrophils % (manual) 12; Eosinophils % (manual) 13 (0-7); Lymphocytes % (manual) 33 (10.0-50.0); Monocytes % (manual) 1 (0-12); Myelocytes % 1; Platelet Estimate Decreased
[2024-01-30 09:20] VITALS: PULSE 74; RESP 14; O2SAT 93
[2024-01-30 12:22] VITALS: BP 105/57; PULSE 77; RESP 21; TEMP 98.2
[2024-01-30 12:37] VITALS: BP 98/57; PULSE 76; RESP 16; TEMP 98.3
--- NOTE | 2024-01-30 12:52 | ECG ---
[facility] Test Date: 2024-01-30 Test Time: 06:11:30 Pat Name: MEME ALONSO Department: ER Room: 0282 Gender: M Research Physician: ROSANNA : 1955 Requested By: TEE ATKINS Order Number: [id number] Reading MD: Davide Villa Measurements Intervals [place] Rate: 81 P: 56 NH: 135 QRS: 65 QRSD: 108 T: 99 QT: 375 QTc: 436 Interpretive Statements Sinus rhythm Nonspecific T abnormalities, lateral leads Electronically Signed On 02-08-2024 12:54:01 PST by Davide Villa Please click the below link to view image of tracing.
[2024-01-30] MEDS ORDERED: ONDANSETRON HCL 4 MG/2 ML VIAL IV PRN (13:00)
[2024-01-30] MEDS ORDERED: MIDO5TAB22 PO (13:04)
[2024-01-30] MEDS: MIDODRINE HCL 10 MG TAB PO SCH (13:16)
--- NOTE | 2024-01-30 14:28 | DVHHP2 ---
History of Present Illness Reason for Visit: Status post fall, Anemia History of Present Illness 68-year-old male presented for blood transfusion and inquiry today. Patient states he returned to the ED again for blood transfusions, patient's current symptoms he was having intermittent dizziness at home with fall and head injury yesterday, patient states when he fainted at home he probably lost consciousness for a couple of seconds then came to, patient did not seek medical attention after. Patient is frequently admitted and seen in ED for chronic anemia. Patient denies chest pain, headache, diaphoresis, shortness of breath, abdominal pain, no nausea, vomiting, fever, or chills endorsed by the patient. Patient was admitted for further evaluation medical management. Past Medical History Anemia, Cancer (prostate), COPD, Schizophrenia, myelodysplastic syndrome Past Surgical History Denies Family History Reviewed noncontributory to the management of this case Smoke: No ALCOHOL: none Drugs: None Lives: Alone Review of Systems Constitutional: No: Fever, Chills, Sweats, Weakness, Malaise, Other Eyes: No: Pain, Vision change, Conjunctivae inflammation, Eyelid inflammation, Other, Redness ENT: No: Ear pain, Ear discharge, Nose pain, Nose discharge, Nose congestion, Mouth pain, Mouth swelling, Throat pain, Throat swelling, Other Respiratory: No: Cough, Dry, Shortness of breath, SOB with excertion, Wheezing, Hemoptysis, Pleuritic Pain, Sputum, Wheezing, Other Cardiovascular: Lt Headedness; No: Chest Pain, Palpitations, Orthopnea, Paroxysmal Noc. Dyspnea, Edema, Other Gastrointestinal: No: Nausea, Vomiting, Abdominal Pain, Diarrhea, Constipation, Melena, Hematochezia, Other Genitourinary: No Dysuria, No Frequency, No Incontinence, No Hematuria, No Retention, No Other Musculoskeletal: No: other, neck pain, shoulder pain, arm pain, back pain, hand pain, leg pain, foot pain Skin: No: Rash, Lesions, Jaundice, Bruising, Other Neurological: No: Weakness, Numbness, Incoordination, Change in speech, Confusion, Seizures, Other Allergies: Coded Allergies: NO KNOWN ALLERGIES (Unverified , 12/04/23) Medications Current Medications Medications Dose Ordered Sig/Fabricio Route Start Time Stop Time Status Last Admin Dose Admin Acetaminophen 650 mg Q6HP PRN PO 01/30/24 13:00 UNV Ondansetron HCl 4 mg Q4HP PRN IV 01/30/24 13:00 UNV Atorvastatin Calcium 40 mg HS PO 01/30/24 22:00 UNV Folic Acid 1 mg DAILY PO 01/31/24 10:00 UNV Gabapentin 600 mg BID PO 01/30/24 22:00 UNV Mirtazapine 45 mg HS PO 01/30/24 22:00 UNV Risperidone 2 mg DAILY PO 01/31/24 10:00 UNV Midodrine 5 mg TID@0600,1200,1800 PO 01/30/24 18:00 UNV Midodrine 5 mg Q8H PO 01/30/24 13:15 01/30/24 13:16 5 MG Exam Vital Signs Vital Signs Date Time Temp Pulse Resp B/P (MAP) Pulse Ox O2 Delivery O2 Flow Rate FiO2 01/30/24 12:37 98.3 76 16 98/57 98.3 01/30/24 11:57 95 01/30/24 09:20 Room Air* 0 21 General Appearance: Alert, Oriented X3, Cooperative, No acute distress HEENT: Atraumatic, PERRLA, EOMI, Mucous membr. moist/pink Respiratory: Clear to auscultation, Normal air movement Cardiovascular: Regular rate, Normal S1, Normal S2, No murmurs Abdominal: Normal bowel sounds, Soft, No tenderness, No hepatospenomegaly, No masses Extremities: No clubbing, No cyanosis, No edema, Normal pulses, No tenderness/swelling Skin: No rashes, No breakdown, No significant lesion Neuro: Normal gait, Normal speech, Strength at 5/5 X4 ext, Normal tone, Sensation intact, Cranial nerves 3-12 NL Psych/Mental Status: Mental status NL, Mood NL Labs/Xrays Labs, imaging and ED notes reviewed Labs Test 01/30/24 06:45 Range/Units White Blood Count 3.1 L 4.4-10.8 10^3/uL Red Blood Count 2.45 L 4.5-5.90 10^6/uL Hemoglobin 7.0 #*L 13.5-17.5 g/dL Hematocrit 20.9 #L 41.0-53.0 % Mean Corpuscular Volume 85.1 80.0-100.0 fL Mean Corpuscular Hemoglobin 28.4 28.0-32.0 pg Mean Corpuscular Hemoglobin Concent 33.4 32.0-36.0 g/dL Red Cell Distribution Width 14.5 H 11.8-14.3 % Platelet Count 83 L 140-450 10^3/uL Mean Platelet Volume 9.3 6.9-10.8 fL Neutrophils (%) (Auto) 37.0-80.0 % Lymphocytes (%) (Auto) 10.0-50.0 % Monocytes (%) (Auto) 0.0-12.0 % Eosinophils (%) (Auto) 0.0-7.0 % Basophils (%) (Auto) 0.0-2.0 % Neutrophils # (Auto) 1.6-8.6 10 ^3/uL Lymphocytes # (Auto) 0.4-5.4 10 ^3/uL Monocytes # (Auto) 0-1.3 10 ^3/uL Differential Total Cells Counted 100.0 100 Neutrophils % (Manual) 40 37.0-80.0 Band Neutrophils % (Manual) 12 Lymphocytes % (Manual) 33 10.0-50.0 Monocytes % (Manual) 1 0-12 Eosinophils % (Manual) 13 H 0-7 Basophils % (Manual) 0 0.0-2.0 Metamyelocytes % (manual) 0 Myelocytes % (Manual) 1 Promyelocytes % (Manual) 0 Blast Cells % (Manual) 0 Reactive Lymphocytes 0 Platelet Estimate Decreased Sodium Level 140 136-145 mmol/L Potassium Level 4.4 3.5-5.1 mmol/L Chloride Level 109 H 98-107 mmol/L Carbon Dioxide Level 29 20-31 mmol/L Anion Gap 2 L 5-15 Blood Urea Nitrogen 15 9-23 mg/dL Creatinine 0.77 0.700-1.30 mg/dL Glomerular Filtration Rate Calc 99 >90 mL/min BUN/Creatinine Ratio 19.5 10.0-20.0 Serum Glucose 99 74-106 mg/dL Calcium Level 9.4 8.7-10.4 mg/dL Troponin I High Sensitivity < 3 L </=54 ng/L Assessment/Plan Assessment/Plan Acute on chronic anemia, secondary to myelodysplastic syndrome Admit to medical/surgical Hemoglobin 7.0gdL- transfuse 1 unit PRBC Patient comes almost weekly for blood transfusion Monitor blood pressure Takes midodrine daily at home, continue home med Follow hemoglobin and hematocrit Status post mechanical fall CT head unremarkable High fall risk Pancytopenia Monitor labs Current platelet count at baseline Patient will continue follow up with heme/Onc outpatient Monitor for bleeding Chronic hyperlipidemia Continue home meds History schizophrenia Continue home meds FEN/PPX Regular diet VTE prophylaxis not indicated GI prophylaxis not Plan discussed with: Patient My Orders Orders - SELINA PATTEN Procedure Category Date Status Time Admit ADMIT 01/30/24 Transmitted 12:58 Code Status CODE 01/30/24 Transmitted 12:58 Vital Signs [facility] 01/30/24 In Process 12:58 Review Orders With [facility] 01/30/24 In Process Adm.Md 12:58 Maintain Bed Rest [facility] 01/30/24 In Process 12:58 Bedside Commode [facility] 01/30/24 In Process 12:58 Regular Diet DIET 01/30/24 Transmitted Lunch Acetaminophen Tablet [facility] 01/30/24 Logged (Tylenol Tablet) 13:00 Notify Of Changes [facility] 01/30/24 In Process From Base 12:58 Advance Directive [facility] 01/30/24 In Process 12:58 Basic Metabolic Panel LAB 01/31/24 Verified 04:00 Complete Blood Count LAB 01/31/24 Verified 04:00 Patient Condition ORDERS 01/30/24 Transmitted 12:58 Allergies [facility] 01/30/24 In Process 12:58 Ondansetron Hcl PHA 01/30/24 Logged (Zofran) 13:00 Atorvastatin (Lipitor) PHA 01/30/24 Logged 22:00 Folic Acid Tablet PHA 01/31/24 Logged 10:00 Gabapentin Capsule PHA 01/30/24 Logged (Neurontin Capsule) 22:00 Mirtazapine Tablet PHA 01/30/24 Logged (Remeron Tablet) 22:00 Risperidone Tablet PHA 01/31/24 Logged (Risperdal Tablet) 10:00 Midodrine Tablet PHA 01/30/24 In Process (Proamatine Tablet) 13:15 Date of Service: Jan 30, 2024 Billing Provider: SELINA PATTEN Common Visit Codes: [id number] INP/OBS CARE (HIGH) SELINA PATTEN Jan 30, 2024 14:28
[2024-01-30 15:29] VITALS: BP 96/54; PULSE 61; RESP 13; TEMP 98
[2024-01-30] MEDS ORDERED: MIDODRINE HCL 10 MG TAB PO SCH (18:00)
[2024-01-30 19:25] VITALS: PULSE 66; RESP 12; O2SAT 99
[2024-01-30 20:14] LABS: Hemoglobin 7.3 g/dL (13.5-17.5)
[2024-01-30 20:18] LABS: Hematocrit 21.8 % (41.0-53.0)
[2024-01-30] MEDS ORDERED: ALBU108A5 INH (21:28)
[2024-01-30] MEDS ORDERED: SULF1SUS10 (21:28)
[2024-01-30 21:31] VITALS: BP 101/58; PULSE 74; RESP 15; TEMP 98.5; O2SAT 96
[2024-01-30] MEDS: GABAPENTIN 300 MG CAP PO SCH (23:02)
[2024-01-30] MEDS: ATORVASTATIN 20 MG TAB PO SCH (23:02)
[2024-01-30] MEDS: MIRTAZAPINE 30 MG TAB PO SCH (23:03)
[2024-01-31] VITALS (11 sets, daily range): BP systolic 88–113; BP diastolic 49–68; PULSE 78–111; RESP 16–21; TEMP 97.6–100.1; O2SAT 92–98
[2024-01-31] MEDS: NICOTINE 14 MG/24HR TOPICAL PATCH TD ONE ×2 (02:58→10:15)
[2024-01-31 06:50] LABS: Red Cell Distribution Width 15.3 % (11.8-14.3)
[2024-01-31 06:51] LABS: Anion Gap 6 (5-15); Calcium 9.4 mg/dL (8.7-10.4); Carbon Dioxide 23 mmol/L (20-31); Chloride 111 mmol/L (98-107); Hematocrit 20.6 % (41.0-53.0); Mean Corpuscular Hemoglobin 27.8 pg (28.0-32.0); Mean Corpuscular Hgb Conc. 32.8 g/dL (32.0-36.0); Mean Corpuscular Volume 84.5 fL (80.0-100.0); Platelet Count (auto) 71 10^3/uL (140-450); Potassium 4.4 mmol/L (3.5-5.1); Red Blood Cells 2.43 10^6/uL (4.5-5.90); Sodium 140 mmol/L (136-145); White Blood Cell 3.5 10^3/uL (4.4-10.8)
[2024-01-31 06:57] LABS: BUN/Creatinine Ratio 16.7 (10.0-20.0); Blood Urea Nitrogen 14 mg/dL (9-23); Glucose 94 mg/dL (74-106)
[2024-01-31 07:19] LABS: Hemoglobin 6.8 g/dL (13.5-17.5)
[2024-01-31 07:20] LABS: Basophils % (manual) 0 (0.0-2.0); Blast Cells 0; Metamyelocytes % 0; Promyelocytes % 0; Reactive Lymphocytes 0
[2024-01-31 07:53] LABS: Band Neutrophils % (manual) 26; Eosinophils % (manual) 18 (0-7); Lymphocytes % (manual) 26 (10.0-50.0); Monocytes % (manual) 3 (0-12); Myelocytes % 1; Platelet Estimate Decreased
[2024-01-31] MEDS: FOLIC ACID 1 MG TAB PO SCH (09:16)
[2024-01-31] MEDS: risperiDONE 1 MG TAB PO SCH (09:16)
--- NOTE | 2024-01-31 10:58 | ECG ---
[facility] Test Date: 2024-01-30 Test Time: 14:21:05 Pat Name: MEME ALONSO Department: ER Room: 0282 Gender: M Actuarial Manager: ROMULO : 1955 Requested By: TEE ATKINS Order Number: [id number] Reading MD: Davide Villa Measurements Intervals [place] Rate: 61 P: 61 ID: [id number] QRS: 78 QRSD: 106 T: 79 QT: 420 QTc: 423 Interpretive Statements Sinus rhythm Electronically Signed On 02-08-2024 12:56:23 PST by Davide Villa Please click the below link to view image of tracing.
[2024-01-31 11:35] LABS: Basophils # (auto) 0.1 10 ^3/uL (0-0.2); Basophils % (auto) 1.3 % (0.0-2.0); Eosinophils # (auto) 0.6 10 ^3/uL (0-0.8); Eosinophils % (auto) 14.2 % (0.0-7.0); Hematocrit 20.7 % (41.0-53.0); Lymphocytes % (auto) 20.9 % (10.0-50.0); Mean Corpuscular Hgb Conc. 33.4 g/dL (32.0-36.0); Mean Corpuscular Volume 84.1 fL (80.0-100.0); Monocytes # (auto) 0.1 10 ^3/uL (0-1.3); Monocytes % (auto) 2.5 % (0.0-12.0); Neutrophils # (auto) 2.8 10 ^3/uL (1.6-8.6); Neutrophils % (auto) 61.1 % (37.0-80.0); Nucleated Red Blood Cells % 0.2 %; Platelet Count (auto) 65 10^3/uL (140-450); Red Blood Cells 2.47 10^6/uL (4.5-5.90); Red Cell Distribution Width 15.2 % (11.8-14.3); White Blood Cell 4.6 10^3/uL (4.4-10.8)
[2024-01-31 11:37] LABS: Hemoglobin 6.9 g/dL (13.5-17.5)
[2024-01-31 11:52] LABS: INR 1.05 (0.9-1.15); Prothrombin Time 11.1 sec (9.3-11.8)
[2024-01-31 11:56] LABS: Folate (Folic Acid) 19.93 ng/mL (>5.38)
--- NOTE | 2024-01-31 12:09 | DVHINCON2 ---
GI Consult Consult Note GI consult note Date of Consultation: 01/31/2024 Chief Complaint: Anemia Referring Physician: Dr. Cabrera H&P: 68-year-old male with history of anemia, presents for blood transfusion Patient diagnosed with anemia for years ago, and had multiple Blood transfusion since SP EGD/ colonoscopy at [facility] four years ago, WNL per patient Patient has been seeing Dr. Haque for the past two months No abdominal pain. No nausea/vomiting/hematemesis. No melena/red blood in stool Patient last BM this morning Past Medical History: Anemia, Cancer (prostate), COPD, Schizophrenia myelodysplastic syndrome Past Surgical History: Denies Social History: Smoker: Cigarettes Alcohol: Denies ETOH Use Drugs: Denies Drug Use Lives In: Home Family History: Noncontributory Review of Systems: Constitutional: no fever, chill, weight loss HEENT: no eye pain, no hearing loss, no oral lesion, no scleral icterus Heart: no chest pain, no chest pressure Lung: no cough, no dyspnea with exertion Abdomen: see HPI Physical exam: General: NAD, AAOX3 Chest: lung gonzalez clear to auscultation Heart: RRR, no murmur Abdomen: non-distended, no tenderness to palpation, +BS Labs: Labs Test 01/31/24 10:45 01/31/24 05:44 01/30/24 06:45 Range/Units White Blood Count 4.6 # 4.4-10.8 10^3/uL Red Blood Count 2.47 L 4.5-5.90 10^6/uL Hemoglobin 6.9 *L 13.5-17.5 g/dL Hematocrit 20.7 L 41.0-53.0 % Mean Corpuscular Volume 84.1 80.0-100.0 fL Mean Corpuscular Hemoglobin 28.0 28.0-32.0 pg Mean Corpuscular Hemoglobin Concent 33.4 32.0-36.0 g/dL Red Cell Distribution Width 15.2 H 11.8-14.3 % Platelet Count 65 L 140-450 10^3/uL Mean Platelet Volume 10.0 6.9-10.8 fL Neutrophils (%) (Auto) 61.1 37.0-80.0 % Lymphocytes (%) (Auto) 20.9 10.0-50.0 % Monocytes (%) (Auto) 2.5 0.0-12.0 % Eosinophils (%) (Auto) 14.2 H 0.0-7.0 % Basophils (%) (Auto) 1.3 0.0-2.0 % Neutrophils # (Auto) 2.8 1.6-8.6 10 ^3/uL Lymphocytes # (Auto) 1.0 0.4-5.4 10 ^3/uL Monocytes # (Auto) 0.1 0-1.3 10 ^3/uL Eosinophils # (Auto) 0.6 0-0.8 10 ^3/uL Basophils # (Auto) 0.1 0-0.2 10 ^3/uL Nucleated Red Blood Cells 0.2 % Prothrombin Time 11.1 9.3-11.8 sec Prothrombin Time INR 1.05 0.9-1.15 Activated Partial Thromboplast Time 25.0 24.5-34.5 SEC Lactate Dehydrogenase 144 120-246 U/L Vitamin B12 Level 653 211-911 pg/mL Folic Acid 19.93 >5.38 ng/mL Differential Total Cells Counted 100.0 100 Neutrophils % (Manual) 26 L 37.0-80.0 Band Neutrophils % (Manual) 26 Lymphocytes % (Manual) 26 10.0-50.0 Monocytes % (Manual) 3 0-12 Eosinophils % (Manual) 18 H 0-7 Basophils % (Manual) 0 0.0-2.0 Metamyelocytes % (manual) 0 Myelocytes % (Manual) 1 Promyelocytes % (Manual) 0 Blast Cells % (Manual) 0 Reactive Lymphocytes 0 Platelet Estimate Decreased Troponin I High Sensitivity < 3 L </=54 ng/L Imaging: Assessment: Anemia Myelodysplastic syndrome Pancytopenia Plan: Discussed with Dr. Portillo Monitor labs Protonix Stool for occult blood Possible outpatient GI follow-up in 4-6 weeks, or next available appointment, for plan for elective GI procedures as needed Discussed plan with patient, Dr. Cabrera and Dr. Patten Thank you for this consult Date of Service: Jan 31, 2024 Billing Provider: CRYS LUEVANO Common Visit Codes: CONSULT ONLY Consultation Codes: [id number] CONSULT <45MIN CRYS LUEVANO Jan 31, 2024 12:09
[2024-01-31 12:13] LABS: Alanine Aminotransferase 52 U/L (7-40); Albumin 3.6 g/dL (3.2-4.8); Alkaline Phosphatase 111 U/L (46-116); Anion Gap 4 (5-15); Aspartate Aminotransferase 18 U/L (13-40); BUN/Creatinine Ratio 16.9 (10.0-20.0); Bilirubin, Total 0.5 mg/dL (0.2-1.0); Blood Urea Nitrogen 15 mg/dL (9-23); Calcium 9.2 mg/dL (8.7-10.4); Carbon Dioxide 26 mmol/L (20-31); Chloride 110 mmol/L (98-107); Glucose 105 mg/dL (74-106); Potassium 4.3 mmol/L (3.5-5.1); Sodium 140 mmol/L (136-145); Total Protein 6.5 g/dL (5.7-8.2)
[2024-01-31] MEDS: PANTOPRAZOLE 40 MG/10 ML VIAL INJ IV SCH (17:06)
--- NOTE | 2024-01-31 17:20 | DVHPNRES ---
Progress Note Date Seen: Jan 31, 2024 Resident Creating Document: TIBURCIO CAMPOS RESIDENT Has the PT tested + for MRSA If YES, has PT been informed?: No Medical Necessity Reason Pt with a Central, PICC or Fol: No Subjective Review of Systems Saw the patient at the bedside, patient wanted to leave. Patient was discussed for further plan and management. He agreed to stay overnight. Patient reports: No new complaints, Feels better Changes from previous H/P or p: No Changes Review of Systems: HEENT:Normal, CVS:Normal, RESPIRATORY:Normal, GI:Normal, :Normal, MSK:Normal, NEURO:Normal Objective vital signs Vital Sign Date Time Temp Pulse Resp B/P (MAP) Pulse Ox O2 Delivery O2 Flow Rate FiO2 01/31/24 17:00 99.3 103 16 93/54 (67) 92 99.3 01/30/24 21:31 Room Air* 0 21 Total Intake and Output 01/30/24 01/30/24 01/31/24 15:00 23:00 07:00 Intake Total 0 ml 600 ml 200 ml Output Total 0 ml Balance 0 ml 600 ml 200 ml medications Current Medications Medications Dose Ordered Sig/Fabricio Route Start Time Stop Time Status Last Admin Dose Admin Acetaminophen 650 mg Q6HP PRN PO 01/30/24 13:00 Ondansetron HCl 4 mg Q4HP PRN IV 01/30/24 13:00 Atorvastatin Calcium 40 mg HS PO 01/30/24 22:00 01/30/24 23:02 40 MG Folic Acid 1 mg DAILY PO 01/31/24 10:00 01/31/24 09:16 1 MG Gabapentin 600 mg BID PO 01/30/24 22:00 01/31/24 09:16 600 MG Mirtazapine 45 mg HS PO 01/30/24 22:00 01/30/24 23:03 45 MG Risperidone 2 mg DAILY PO 01/31/24 10:00 01/31/24 09:16 2 MG Midodrine 5 mg TID@0600,1200,1800 PO 01/30/24 18:00 UNV Midodrine 5 mg Q8H PO 01/30/24 13:15 01/31/24 17:07 5 MG Pantoprazole Sodium 40 mg BID IV 01/31/24 10:00 01/31/24 17:06 40 MG Nicotine 1 patch DAILY TD 02/01/24 10:00 Examination: GENERAL:Normal, HEENT:Normal, NECK:Normal, LUNGS:Normal, CVS:Normal, ABDOMEN:Normal, MSK:Normal, SKIN:Normal, NEURO:Normal, :Normal laboratory and microbiology Laboratory Tests 01/31/24 10:45 Test 01/31/24 10:45 Range/Units Serum Glucose 105 74-106 mg/dL Labs and/or images reviewed: Labs reviewed by me, Image(s) reviewed by me Problem List/Assessment/Plan Problem List/Assessment/Plan Hospital Course: Mr. Alejandro, a 68-year-old male with a history of myelodysplastic syndrome, prostate cancer, schizophrenia, COPD, and anemia presented to the ED after experiencing a syncopal episode while trying to urinate. He denies any head injury. Currently, he feels dizzy but has no chest pain, abdominal pain, nausea, vomiting, or shortness of breath. He is hypotensive, with lab results showing hemoglobin at 7.8, WBCs at 2.2, and platelets at 59. The patient was admitted for further evaluation and management. He denies any past surgeries, has a noncontributory family history, quit smoking a year ago, and does not use alcohol or drugs. He lives with his family. # Known myelodysplastic syndrome: follows Dr. Haque , hemato oncology outpatient [facility]. # acute on chronic anemia likely due to secondary to myelodysplastic syndrome: Hemoglobin 6.8 status post transfusion, inappropriate response. Transfusion threshold 7. GI input appreciated, unlikely GI bleed, continue IV pantoprazole for now. # ? iron overload: had blood transfusion we will check for ferritin and possibility of iron overload. # Pancytopenia: check for repeats trend. ? leuprolide mediated. # Chronic hyperlipidemia: Continue home medications. # Previous history of prostate cancer: status post TURP, now on suppressive leuprolide dose. continue at discharge. # Schizophrenia: Risperidone 2 mg p.o. # Diet: Regular # DVT prophylaxis, SCDs. PCP: Patient follows with Dr. Duncan. Barriers to discharge: IV PRBC to get. We will repeat the CBC tomorrow, when medically stable we will discharge outpatient [facility]. Case discussed with Dr. Vázquez. Code status: Full code. Complex patient care discussion needed total 39 minutes. Plan discussed with: Patient, Other (Rn ) My Orders My Orders Orders - ANDRES,TIBURCIO RESIDENT Procedure Category Date Status Time Pantoprazole PHA 01/31/24 In Process (Protonix) 10:00 * Gi Dvh E [employer] Marketing Manager CONS 01/31/24 Transmitted 09:56 Urinalysis LAB 01/31/24 Logged 09:57 Drug Screen LAB 01/31/24 Logged 09:57 Precautions: KATIA 01/31/24 In Process Neutropenic 10:06 Nicotine 14mg/24hr PHA 02/01/24 In Process (Nicoderm 14mg/24hr) 10:00 Haptoglobin LAB 01/31/24 In Process 10:10 Obtain Consent For: ORDERS 01/31/24 Transmitted 10:32 Regular Diet DIET 01/31/24 Transmitted Lunch Complete Blood Count LAB 02/01/24 Verified 04:00 Comprehensive LAB 02/01/24 Verified Metabolic Panel 04:00 CC Plasma Assessment Blood Product Administration S: [id number] Date of Service: Jan 31, 2024 Billing Provider: JUAN VÁZQUEZ MD Common Visit Codes: [id number] INP/OBS CARE(HIGH) Coding Comment Comment I saw and evaluated the patient. I reviewed the residents note and agree with findings and plan as documented in the residents note. Patient with recurrent admission for blood transfusion from MDS, multiple prior AMA. Discussed in multidisciplinary meeting patient might benefit from getting chronic transfusion as outpatient to prevent readmission to the hospital. We will check iron and ferritin to rule out hemochromatosis from chronic transfusion TIBURCIO CAMPOS RESIDENT Jan 31, 2024 17:20 JUAN VÁZQUEZ MD Jan 31, 2024 18:02
[2024-01-31] MEDS: ACETAMINOPHEN 325 MG TAB PO PRN (21:30)
[2024-02-01] VITALS (7 sets, daily range): BP systolic 94–107; BP diastolic 52–66; PULSE 52–118; RESP 18–20; TEMP 98–102.9; O2SAT 92–98
[2024-02-01 06:09] LABS: Basophils # (auto) 0.1 10 ^3/uL (0-0.2); Eosinophils # (auto) 0.6 10 ^3/uL (0-0.8); Lymphocytes # (auto) 0.9 10 ^3/uL (0.4-5.4); Monocytes # (auto) 0.2 10 ^3/uL (0-1.3); White Blood Cell 5.7 10^3/uL (4.4-10.8)
[2024-02-01 06:11] LABS: Basophils % (auto) 1.1 % (0.0-2.0); Eosinophils % (auto) 10.8 % (0.0-7.0); Hemoglobin 7.9 g/dL (13.5-17.5); Lymphocytes % (auto) 15.4 % (10.0-50.0); Mean Corpuscular Hemoglobin 28.1 pg (28.0-32.0); Mean Corpuscular Hgb Conc. 32.7 g/dL (32.0-36.0); Mean Corpuscular Volume 85.8 fL (80.0-100.0); Neutrophils % (auto) 69.7 % (37.0-80.0); Nucleated Red Blood Cells % 0.1 %; Platelet Count (auto) 63 10^3/uL (140-450); Red Cell Distribution Width 15.2 % (11.8-14.3)
[2024-02-01 06:30] LABS: Alanine Aminotransferase 42 U/L (7-40); Albumin 3.7 g/dL (3.2-4.8); Alkaline Phosphatase 104 U/L (46-116); Anion Gap 7 (5-15); Aspartate Aminotransferase 12 U/L (13-40); BUN/Creatinine Ratio 18.2 (10.0-20.0); Blood Urea Nitrogen 16 mg/dL (9-23); Calcium 9.3 mg/dL (8.7-10.4); Carbon Dioxide 22 mmol/L (20-31); Chloride 112 mmol/L (98-107); Glucose 114 mg/dL (74-106); Potassium 4.4 mmol/L (3.5-5.1); Sodium 141 mmol/L (136-145)
[2024-02-01 06:31] LABS: Bilirubin, Total 0.7 mg/dL (0.2-1.0); Total Protein 6.6 g/dL (5.7-8.2)
--- NOTE | 2024-02-01 08:56 | DVHDSRES ---
Discharge Summary Date of Admission Resident Creating Document: TIBURCIO CAMPOS RESIDENT Jan 30, 2024 at 12:58 Date of Discharge: Feb 01, 2024 Admitting Diagnosis Low hemoglobin needing transfusion, known myelodysplastic syndrome, progressed to neutropenia Labs/Diagnostic Data: Laboratory Results Test 02/01/24 05:10 01/31/24 12:09 01/31/24 10:45 01/31/24 05:44 White Blood Count 5.7 10^3/uL (4.4-10.8) Red Blood Count 2.80 10^6/uL (4.5-5.90) Hemoglobin 7.9 g/dL (13.5-17.5) Hematocrit 24.0 % (41.0-53.0) Mean Corpuscular Volume 85.8 fL (80.0-100.0) Mean Corpuscular Hemoglobin 28.1 pg (28.0-32.0) Mean Corpuscular Hemoglobin Concent 32.7 g/dL (32.0-36.0) Red Cell Distribution Width 15.2 % (11.8-14.3) Platelet Count 63 10^3/uL (140-450) Mean Platelet Volume 9.2 fL (6.9-10.8) Neutrophils (%) (Auto) 69.7 % (37.0-80.0) Lymphocytes (%) (Auto) 15.4 % (10.0-50.0) Monocytes (%) (Auto) 3.0 % (0.0-12.0) Eosinophils (%) (Auto) 10.8 % (0.0-7.0) Basophils (%) (Auto) 1.1 % (0.0-2.0) Neutrophils # (Auto) 4.0 10 ^3/uL (1.6-8.6) Lymphocytes # (Auto) 0.9 10 ^3/uL (0.4-5.4) Monocytes # (Auto) 0.2 10 ^3/uL (0-1.3) Eosinophils # (Auto) 0.6 10 ^3/uL (0-0.8) Basophils # (Auto) 0.1 10 ^3/uL (0-0.2) Nucleated Red Blood Cells 0.1 % Sodium Level 141 mmol/L (136-145) Potassium Level 4.4 mmol/L (3.5-5.1) Chloride Level 112 mmol/L (98-107) Carbon Dioxide Level 22 mmol/L (20-31) Anion Gap 7 (5-15) Blood Urea Nitrogen 16 mg/dL (9-23) Creatinine 0.88 mg/dL (0.700-1.30) Glomerular Filtration Rate Calc 95 mL/min (>90) BUN/Creatinine Ratio 18.2 (10.0-20.0) Serum Glucose 114 mg/dL (74-106) Calcium Level 9.3 mg/dL (8.7-10.4) Total Bilirubin 0.7 mg/dL (0.2-1.0) Aspartate Amino Transferase (AST) 12 U/L (13-40) Alanine Aminotransferase (ALT) 42 U/L (7-40) Alkaline Phosphatase 104 U/L (46-116) Total Protein 6.6 g/dL (5.7-8.2) Albumin 3.7 g/dL (3.2-4.8) POC Glucose 90 mg/dl (70-106) Haptoglobin 108 mg/dL (32-363) Prothrombin Time 11.1 sec (9.3-11.8) Prothrombin Time INR 1.05 (0.9-1.15) Activated Partial Thromboplast Time 25.0 SEC (24.5-34.5) Lactate Dehydrogenase 144 U/L (120-246) Vitamin B12 Level 653 pg/mL (211-911) Folic Acid 19.93 ng/mL (>5.38) Thyroid Stimulating Hormone (TSH) 0.95 uIU/mL (0.55-4.78) Differential Total Cells Counted 100.0 (100) Neutrophils % (Manual) 26 (37.0-80.0) Band Neutrophils % (Manual) 26 Lymphocytes % (Manual) 26 (10.0-50.0) Monocytes % (Manual) 3 (0-12) Eosinophils % (Manual) 18 (0-7) Basophils % (Manual) 0 (0.0-2.0) Metamyelocytes % (manual) 0 Myelocytes % (Manual) 1 Promyelocytes % (Manual) 0 Blast Cells % (Manual) 0 Reactive Lymphocytes 0 Platelet Estimate Decreased Test 01/30/24 06:45 Troponin I High Sensitivity < 3 ng/L (</=54) Other Laboratory Tests 02/01/24 05:10 Brief Hx & Hospital Course: Hospital Course: Mr. Celeste, a 68-year-old male with a history of myelodysplastic syndrome, prostate cancer, schizophrenia, COPD, and anemia presented to the ED after experiencing a syncopal episode while trying to urinate. He denies any head injury. Currently, he feels dizzy but has no chest pain, abdominal pain, nausea, vomiting, or shortness of breath. He is hypotensive, with lab results showing hemoglobin at 7.8, WBCs at 2.2, and platelets at 59. The patient was admitted for further evaluation and management. He denies any past surgeries, has a noncontributory family history, quit smoking a year ago, and does not use alcohol or drugs. He lives with his family. # Known myelodysplastic syndrome: follows Dr. Haque , hemato oncology outpatient [facility]. # acute on chronic anemia likely due to secondary to myelodysplastic syndrome: Hemoglobin 6.8 status post transfusion, inappropriate response. Transfusion threshold 7. GI input appreciated, unlikely GI bleed, continue IV pantoprazole for now. # ? iron overload: had blood transfusion we will check for ferritin and possibility of iron overload. # Pancytopenia: check for repeats trend. ? leuprolide mediated. # Chronic hyperlipidemia: Continue home medications. # Previous history of prostate cancer: status post TURP, now on suppressive leuprolide dose. continue at discharge. # Schizophrenia: Risperidone 2 mg p.o. # Diet: Regular # DVT prophylaxis, SCDs. PCP: Patient follows with Dr. Duncan. Barriers to discharge: IV PRBC to get. We will repeat the CBC tomorrow, when medically stable we will discharge outpatient [facility]. Case discussed with Dr. Vázquez. Code status: Full code. Complex patient care discussion needed total 39 minutes. Plan discussed with: Patient, Other (Rn ) Consults/Reason for consult None. Needs to follow up with Dr. Wanda Haque , outpatient [facility]. Operations or Procedures [place] [address] Ph: [phone] DIAGNOSTIC IMAGING Diagnostic Imaging Report : [id number] Signed PATIENT: MEME ALONSO JR ACCT: [id number] UNIT: [id number] : 1955 LOC: ER ROOM / BED: / AGE / SEX: 68 / M ADM STATUS: REG ER SERVICE 0644 ORDERING PHYSICIAN: TEE ATKINS MD PROCEDURE(s): HWOCT - HEAD WITHOUT CONTRAST REASON: fall ORDER NUMBER(s): [id number], ACCESSION NUMBER(s): [id number] CLINICAL INFORMATION: 68 years old, Male; fall injury. TECHNIQUE: Axial imaging was obtained through the brain without contrast. Coronal and sagittal reformatted images were obtained, reviewed, and stored. Images were reviewed in brain and bone windows. All CT scans at this medical facility are performed using dose modulation techniques as appropriate to a performed exam including the following: Automated exposure control was utilized; Adjustment of the MA And/or KV according to patient size; And use of iterative reconstruction technique. CTDIvol = 64.66 mGy DLP = 1272.55 mGy-cm COMPARISON: CT HEAD WITHOUT CONTRAST on DOS: 01/02/24 FINDINGS: There is no acute intracranial hemorrhage or extraaxial fluid collection. No mass effect or midline shift. The ventricles and sulci are within normal limits in size for age. Basal cisterns are patent. The calvarium is unremarkable. Paranasal sinuses and mastoid air cells are clear. IMPRESSION: No CT evidence of acute intracranial abnormality. ATED BY: HANK JEFFERY DO DICTATED DATE/TIME: 01/30/24710 SIGNED BY: HANK JEFFERY DO SIGNED DATE/TIME: 01/30/24710 CC: EKG Name: CELESTEMEME MCGOVERN JR Acct: [id number] [place] [address] ELECTROCARDIOGRAM REPORT PATIENT: CELESTEMEME MCGOVERN JR ACCT: [id number] : 1955 LOC: ER ROOM / BED: / AGE / SEX: 68 / M ADM STATUS: REG ER SERVICE 1250 UNIT: [id number] ORDERING PHYSICIAN: TEE ATKINS MD PROCEDURE(s): EKG - ELECTROCARDIGRAM ORDER NUMBER(s): [id number], ACCESSION NUMBER(s): [id number] [facility] Test Date: 2024-01-30 Test Time: 06:11:30 Pat Name: MEME ALONSO Department: ER Room: Gender: M Store Lead: ROSANNA : 1955 Requested By: TEE ATKINS Order Number: [id number] Reading MD: Measurements Intervals [place] Rate: 81 P: 56 ND: 135 QRS: 65 QRSD: 108 T: 99 QT: 375 QTc: 436 Interpretive Statements Sinus rhythm Nonspecific T abnormalities, lateral leads Please click the below link to view image of tracing. DICTATED BY: DICTATED DATE/TIME:01/30/24 06 ELECTRONICALLY SIGNED BY: ELECTRONICALLY CO-SIGNED BY: Condition at Discharge: Fair Final Diagnosis/Problems List # Schizophrenia # Known myelodysplastic syndrome # acute on chronic anemia likely due to secondary to myelodysplastic syndrome # iron overload with elevated ferritin likely due to recurrent transfusion. Likely patient will need iron decreasing medication. # Pancytopenia Likely MDS versus leuprolide mediated. Afebrile, no need at this point. # Chronic hyperlipidemia # Moderate thrombocytopenia, no signs of bleeding, avoid NSAIDs, aspirin, and antiplatelet agents. # Previous history of prostate cancer: status post TURP. # Mild tenderness in the right upper thigh towards the inguinal region, inspection unremarkable at this point. Labs unremarkable. Afebrile, hemodynamically stable, bedside ultrasound noted for no obvious deformity/pathology. 1 dose of IV Unasyn, status post 5 days of Augmentin oral at home. as needed Tylenol. Discharge Disposition: Home Discharge Instruct/Medications Diet: Regular Activity: No Restrictions, As Tolerated Follow Up/Referral: Please follow with PCP physician within 1-2 weeks of discharge. Follow up with upcoming hemato oncology visit on of this month with Dr. Haque. Medications: Please take 5 days of Augmentin b.i.d. as needed Tylenol 650. Discharge Statement: "Patient was advised to return to the ER or call 911 if any headaches, dizziness, shortness of breath, chest pain, abdominal pain, bleeding, fevers, or worsening of medical condition. Patient was counseled about treatment plan, medications, possible side effects, patientverbalized understanding. All questions were answered to the best of my ability. This discharge took greater then 30 minutes in planning, reviewing documentation, counseling the patient, and discussing with other team members." Laboratory Results Laboratory Tests 02/01/24 05:10 Chemistry Test 01/31/24 10:45 02/01/24 05:10 Albumin 3.6 g/dL (3.2-4.8) 3.7 g/dL (3.2-4.8) Calcium Level 9.2 mg/dL (8.7-10.4) 9.3 mg/dL (8.7-10.4) Total Protein 6.5 g/dL (5.7-8.2) 6.6 g/dL (5.7-8.2) Coagulation Test 01/31/24 10:45 Prothrombin Time 11.1 sec (9.3-11.8) Prothrombin Time INR 1.05 (0.9-1.15) Activated Partial Thromboplast Time 25.0 SEC (24.5-34.5) LFT Test 01/31/24 10:45 02/01/24 05:10 Alanine Aminotransferase (ALT) 52 U/L (7-40) H 42 U/L (7-40) H Alkaline Phosphatase 111 U/L (46-116) 104 U/L (46-116) Aspartate Amino Transferase (AST) 18 U/L (13-40) 12 U/L (13-40) L Total Bilirubin 0.5 mg/dL (0.2-1.0) 0.7 mg/dL (0.2-1.0) HgA1c, TSH Test 01/31/24 10:45 Thyroid Stimulating Hormone (TSH) 0.95 uIU/mL (0.55-4.78) Labs and/or images reviewed: Labs reviewed by me, Image(s) reviewed by me Physical Exam General Appearance: No Apparent Distress (Nineteen) HEENT: normal ENT inspection, PERRL/EOMI, TMs normal, pharynx normal Neck: Normal Inspection, Non-Tender, Full Range of Motion, Supple Respiratory: chest non-tender, lungs clear, normal breath sounds, no respiratory distress, no accessory muscle use, respiratory distress Cardiovascular: normal peripheral pulses, regular rate, rhythm, no edema, no gallop, no JVD, no murmur Gastrointestinal: normal bowel sounds, non tender, soft, no organomegaly, no pulsatile mass Male Genitalia: normal genitalia, other (Right upper thigh, local pain tenderness but no apparent deformity.) Back: normal inspection, no CVA tenderness, no vertebral tenderness Extremities: normal range of motion, non-tender, normal inspection, no pedal edema, no calf tenderness Neurologic/Psychiatric: licensed physical therapy assistant II-XII nml as tested Skin: normal color, warm/dry, cyanosis Lymphatic: no adenopathy ASSESSMENT ASSESSMENT Assessment Date of Service: Feb 01, 2024 Billing Provider: JUAN VÁZQUEZ MD Common Visit Codes: 69231-PCR/OBS DISCH DAY >30min Coding Comment Comment Attending Attestation I saw and evaluated the patient. I reviewed the residents note and agree with findings and plan as documented in the residents note except as documented below. TIBURCIO CAMPOS RESIDENT Feb 01, 2024 08:56 JUAN VÁZQUEZ MD Feb 01, 2024 19:38
[2024-02-01] MEDS: LACTATED RINGER'S 2,250 ML IV ONE (09:00)
[2024-02-01] MEDS: NICOTINE 14 MG/24HR TOPICAL PATCH TD SCH (10:26)
[2024-02-01 11:27] LABS: % Iron Saturation 78.9 % (20-55)
[2024-02-01] MEDS ORDERED: AMPICILLIN & SULBACTAM SODIUM 3 GM in SODIUM CHL 0.9% 100 ML IV ONE (19:00)
[2024-02-01] MEDS ORDERED: AUG875T PO (19:21)
--- NOTE | 2024-02-01 22:21 | DVHPN2 ---
Progress Note - Dictate Date Seen: Feb 01, 2024 Has the PT tested + for MRSA If YES, has PT been informed?: No Medical Necessity Reason Pt with a Central, PICC or Fol: No Subjective Patient seen at bedside this morning There was no active GI bleeding His hemoglobin has improved to 7.9 Patient stated he had an EGD and colonoscopy at [facility] but seven months ago which were negative Patient usually sees Dr. Haque as an outpatient and gets his labs checked every Monday The seat time he presented to the ER because of symptomatic anemia Iron panel consistent with anemia of chronic disease Patient has underlying myelodysplasia vital signs Vital Sign Date Time Temp Pulse Resp B/P (MAP) Pulse Ox O2 Delivery O2 Flow Rate FiO2 02/01/24 21:21 102.5 02/01/24 21:00 118 19 96/57 (70) 92 02/01/24 20:00 Nasal Cannula* 2 28 Total Intake and Output 01/31/24 01/31/24 02/01/24 15:00 23:00 07:00 Intake Total 900 ml 800 ml Balance 900 ml 800 ml medications Current Medications Medications Dose Ordered Sig/Fabricio Route Start Time Stop Time Status Last Admin Dose Admin Acetaminophen 650 mg Q6HP PRN PO 01/30/24 13:00 02/01/24 21:21 650 MG Ondansetron HCl 4 mg Q4HP PRN IV 01/30/24 13:00 Atorvastatin Calcium 40 mg HS PO 01/30/24 22:00 02/01/24 21:22 40 MG Folic Acid 1 mg DAILY PO 01/31/24 10:00 02/01/24 10:25 1 MG Gabapentin 600 mg BID PO 01/30/24 22:00 02/01/24 21:22 600 MG Mirtazapine 45 mg HS PO 01/30/24 22:00 02/01/24 21:22 45 MG Risperidone 2 mg DAILY PO 01/31/24 10:00 02/01/24 10:25 2 MG Midodrine 5 mg TID@0600,1200,1800 PO 01/30/24 18:00 UNV Pantoprazole Sodium 40 mg BID IV 01/31/24 10:00 02/01/24 21:20 40 MG Nicotine 1 patch DAILY TD 02/01/24 10:00 02/01/24 10:26 1 PATCH Ampicillin Sodium/ Sulbactam Sodium 3 gm/Sodium Chloride 100 ml @ 33.333 mls/ hr Q6H IV 02/02/24 02:00 Cancel objective General: NAD, AAOX3 Chest: lung gonzalez clear to auscultation Heart: RRR, no murmur Abdomen: non-distended, no tenderness to palpation, +BS laboratory and microbiology Laboratory Tests 02/01/24 05:10 Test 02/01/24 05:10 Range/Units Serum Glucose 114 H 74-106 mg/dL Problems(with codes): (1) Severe anemia (2) Hypotension (3) Syncope (4) Symptomatic anemia (5) MDS (myelodysplastic syndrome) Prognosis Plan Patient was initially set up for a possible discharge today However patient developed a fever this evening and is undergoing a sepsis workup Overall prognosis remains guarded I will follow up patient with you We will monitor labs He does not need a repeat EGD or colon at this time Plan discussed with: Patient CC Plasma Assessment Blood Product Administration S: [id number] WENDY BURRELL MD Feb 01, 2024 22:21
[2024-02-02] VITALS (9 sets, daily range): BP systolic 92–99; BP diastolic 50–65; PULSE 85–111; RESP 16–19; TEMP 36.9; O2SAT 91–97
[2024-02-02] MEDS ORDERED: AMPICILLIN & SULBACTAM SODIUM 3 GM in SODIUM CHL 0.9% 100 ML IV SCH (02:00)
[2024-02-02 11:42] LABS: Mean Corpuscular Hgb Conc. 34.4 g/dL (32.0-36.0); Monocytes # (auto) 0.2 10 ^3/uL (0-1.3); Platelet Count (auto) 53 10^3/uL (140-450)
[2024-02-02 11:44] LABS: Basophils # (auto) 0.1 10 ^3/uL (0-0.2); Eosinophils # (auto) 0.2 10 ^3/uL (0-0.8); Eosinophils % (auto) 2.7 % (0.0-7.0); Hematocrit 20.6 % (41.0-53.0); Hemoglobin 7.1 g/dL (13.5-17.5); Lymphocytes # (auto) 0.8 10 ^3/uL (0.4-5.4); Lymphocytes % (auto) 12.6 % (10.0-50.0); Mean Corpuscular Hemoglobin 29.2 pg (28.0-32.0); Mean Corpuscular Volume 84.9 fL (80.0-100.0); Monocytes % (auto) 2.9 % (0.0-12.0); Neutrophils # (auto) 4.9 10 ^3/uL (1.6-8.6); Neutrophils % (auto) 80.8 % (37.0-80.0); Red Blood Cells 2.42 10^6/uL (4.5-5.90); Red Cell Distribution Width 14.9 % (11.8-14.3); White Blood Cell 6.1 10^3/uL (4.4-10.8)
[2024-02-02 11:59] LABS: Alanine Aminotransferase 44 U/L (7-40); Albumin 3.5 g/dL (3.2-4.8); Alkaline Phosphatase 82 U/L (46-116); Anion Gap 6 (5-15); Aspartate Aminotransferase 18 U/L (13-40); BUN/Creatinine Ratio 15.4 (10.0-20.0); Bilirubin, Total 0.7 mg/dL (0.2-1.0); Blood Urea Nitrogen 14 mg/dL (9-23); Calcium 9.2 mg/dL (8.7-10.4); Carbon Dioxide 26 mmol/L (20-31); Chloride 108 mmol/L (98-107); Glucose 116 mg/dL (74-106); Sodium 140 mmol/L (136-145); Total Protein 6.5 g/dL (5.7-8.2)
--- NOTE | 2024-02-02 12:21 | DVH ---
RIGHT LOWER EXTREMITY VENOUS DOPPLER CLINICAL HISTORY: right groin swelling. TECHNIQUE: Right lower extremity venous doppler study was performed. COMPARISON: US BILAT LOWER DVT on DOS: 12/05/23 FINDINGS: The right common femoral, superficial femoral, popliteal, posterior tibial and peroneal veins appear patent with normal augmentation, phasicity, compressibility and color-flow. Incidentally noted are pr ominent lymph nodes in the right groin soft tissues. IMPRESSION: 1. No sonographic evidence of DVT in the right leg. 2. Incidentally noted are prominent lymph nodes in the right groin soft tissues. Clinical correlatio n is recommended. HS:Y
[2024-02-02] MEDS: AMOXICILLIN/CLAVUL 875 MG TAB PO ONE (14:31)
--- NOTE | 2024-02-02 15:20 | DVHPNRES ---
Progress Note Date Seen: Feb 02, 2024 Resident Creating Document: TIBURCIO CAMPOS RESIDENT Has the PT tested + for MRSA If YES, has PT been informed?: No Medical Necessity Reason Pt with a Central, PICC or Fol: No Subjective Patient reports: No new complaints, Feels better Changes from previous H/P or p: No Changes Review of Systems: HEENT:Normal, CVS:Normal, RESPIRATORY:Normal, GI:Normal, :Normal, MSK:Abnormal (Right groin pain), NEURO:Normal Objective vital signs Vital Sign Date Time Temp Pulse Resp B/P (MAP) Pulse Ox O2 Delivery O2 Flow Rate FiO2 02/02/24 14:04 98.5 92 18 96/56 (69) 91 98.5 02/02/24 08:00 Room Air* 0 21 Total Intake and Output 02/01/24 02/01/24 02/02/24 15:00 23:00 07:00 Intake Total 240 ml 960 ml 900 ml Output Total 350 ml Balance 240 ml 960 ml 550 ml medications Current Medications Medications Dose Ordered Sig/Fabricio Route Start Time Stop Time Status Last Admin Dose Admin Acetaminophen 650 mg Q6HP PRN PO 01/30/24 13:00 02/02/24 14:32 650 MG Ondansetron HCl 4 mg Q4HP PRN IV 01/30/24 13:00 Atorvastatin Calcium 40 mg HS PO 01/30/24 22:00 02/01/24 21:22 40 MG Folic Acid 1 mg DAILY PO 01/31/24 10:00 02/02/24 10:07 1 MG Gabapentin 600 mg BID PO 01/30/24 22:00 02/02/24 10:07 600 MG Mirtazapine 45 mg HS PO 01/30/24 22:00 02/01/24 21:22 45 MG Risperidone 2 mg DAILY PO 01/31/24 10:00 02/02/24 10:08 2 MG Midodrine 5 mg TID@0600,1200,1800 PO 01/30/24 18:00 UNV Pantoprazole Sodium 40 mg BID IV 01/31/24 10:00 02/02/24 10:07 40 MG Nicotine 1 patch DAILY TD 02/01/24 10:00 02/02/24 10:10 1 PATCH Ampicillin Sodium/ Sulbactam Sodium 3 gm/Sodium Chloride 100 ml @ 33.333 mls/ hr Q6H IV 02/02/24 02:00 Cancel Amoxicillin/ Clavulanate Potassium 875 mg Q12HR PO 02/02/24 22:00 Examination: GENERAL:Normal, HEENT:Normal, NECK:Normal, LUNGS:Normal, CVS:Normal, ABDOMEN:Normal, MSK:Abnormal (Right upper inguinal region reactive lymphadenopathy), SKIN:Normal, NEURO:Normal, :Normal laboratory and microbiology Laboratory Tests 02/02/24 11:22 Test 02/02/24 11:22 Range/Units Serum Glucose 116 H 74-106 mg/dL Labs and/or images reviewed: Labs reviewed by me, Image(s) reviewed by me Problem List/Assessment/Plan Problem List/Assessment/Plan Hospital Course: Mr. Alejandro, a 68-year-old male with a history of myelodysplastic syndrome, prostate cancer, schizophrenia, COPD, and anemia presented to the ED after experiencing a syncopal episode while trying to urinate. He denies any head injury. Currently, he feels dizzy but has no chest pain, abdominal pain, nausea, vomiting, or shortness of breath. He is hypotensive, with lab results showing hemoglobin at 7.8, WBCs at 2.2, and platelets at 59. The patient was admitted for further evaluation and management. He denies any past surgeries, has a noncontributory family history, quit smoking a year ago, and does not use alcohol or drugs. He lives with his family, status post transfusion he is hemodynamically stable. Right upper inguinal region mild swelling and bumpy lesions. Ultrasound reveals inguinal lymph node, tender. Had previous similar history of local cellulitis. PCP: Patient follows with Dr. Duncan we will follow up within 1-2 weeks of discharge. The patient was discharged yesterday but due to right upper inguinal pain swelling and low-grade fever patient decided to stay overnight. Patient will follow up with Dr. Haque, pending visit on 02/07/2024. Low-grade fever could be due to byproduct of repeated transfusion /serum sickness. # Known myelodysplastic syndrome: follows Dr. Haque , hemato oncology outpatient [facility]. # acute on chronic anemia likely due to secondary to myelodysplastic syndrome: Hemoglobin 6.8 status post transfusion, inappropriate response. GI workup previously done negative. Patient can follow GI outpatient [facility]. H&H stable appropriate for discharge. # iron overload: had blood transfusion we will check for ferritin and possibility of iron overload. Outpatient follow up with hemato oncology for possible management with the desferroxaine # Pancytopenia: Likely due to underlying MDS, leuprolide might be contributory # Chronic hyperlipidemia: Continue home medications. # history of COPD: Continue home medications at discharge # Previous history of prostate cancer: status post TURP, now on suppressive leuprolide dose. continue at discharge. # right inguinal reactive lymphadenopathy: No proximal or distal infection noted. Painful lymph node possible local infection we will discharge home with 5 days of oral Augmentin. If it does not resolve patient will probably need outpatient biopsy. Repeat ultrasound confirmatory. # Schizophrenia: Risperidone 2 mg p.o. to continue # Diet: Regular Case discussed with Dr. Rucker. Code status: Full code. Complex patient care discussion needed total 39 minutes. Discharge planning needed total 45 minutes of detailed discussion. Patient agreeable to the plan. Plan discussed with: Patient, Other My Orders My Orders Orders - TIBURCIO CAMPOS Procedure Category Date Status Time Amoxicillin/Clavulanate PHA 02/02/24 In Process Tablet (Augmenti 22:00 Urinalysis LAB 02/02/24 Logged 10:25 Blood Culture REBECA 02/02/24 In Process 10:25 Respiratory Culture REBECA 02/02/24 Logged W/ Gs 10:25 Covid19 Antigen Dara LAB 02/02/24 Logged Rapid Influenza A&B LAB 02/02/24 Logged 10:25 Rt Lower Dvt US 02/02/24 Resulted 10:22 CC Plasma Assessment Blood Product Administration S: [id number] TIBURCIO CAMPOS RESIDENT Feb 02, 2024 15:20
[2024-02-02] MEDS ORDERED: AMOXICILLIN/CLAVUL 875 MG TAB PO SCH (22:00)
== END 2024-02-02 17:39 | disposition home or self-care (01) | DRG 694 ==
LOC: ER 06:00 → OVERFLOW 12:58 → WEST WING 21:20
PROVIDERS: ADMIT Internal Medicine; ATTEND Internal Medicine
PROC: 30233N1 Transfusion of Nonautologous Red Blood Cells into Peripheral Vein, Percutaneous Approach (ICD-10-PCS; principal; 2024-01-30)
DX: D46.9 Myelodysplastic syndrome, unspecified (principal); D61.811 Other drug-induced pancytopenia; D69.6 Thrombocytopenia, unspecified; S09.8XXA Other specified injuries of head, initial encounter; D63.8 Anemia in other chronic diseases classified elsewhere; E83.111 Hemochromatosis due to repeated red blood cell transfusions; T38.895A Adverse effect of other hormones and synthetic substitutes, initial encounter; J44.9 Chronic obstructive pulmonary disease, unspecified; F20.9 Schizophrenia, unspecified; F17.210 Nicotine dependence, cigarettes, uncomplicated; E78.5 Hyperlipidemia, unspecified; R59.0 Localized enlarged lymph nodes; Z79.899 Other long term (current) drug therapy; Z85.46 Personal history of malignant neoplasm of prostate; W18.39XA Other fall on same level, initial encounter; Y93.89 Activity, other specified; Y92.098 Other place in other non-institutional residence as the place of occurrence of the external cause; Y99.8 Other external cause status; Z79.82 Long term (current) use of aspirin
CPT/HCPCS: 36415; 70450; 80048; 80053; 82607; 82728; 82746; 82962; 83010; 83540; 83550; 83615; 84443; 84484; 85007; 85014; 85018; 85025; 85027; 85610; 85730; 86850; 86900; 86901; 86902; 86922; 87040; 93005; 93971; 99291; G0378; J2470

== ENCOUNTER 2024-02-06 05:45 | Inpatient (IN) | payer MEDICARE, MEDICAID ==
[2024-02-06] VITALS (15 sets, daily range): BP systolic 87–118; BP diastolic 54–69; PULSE 70–90; RESP 10–24; TEMP 97.8–98.9; O2SAT 93–100
[~2024-02-06] VITALS: Ht 180.3 cm; Wt 84.4 kg
[~2024-02-06 05:45] MED LIST changes: +ALBU108A5 INH; +AUG875T PO; +MIDO5TAB22 PO; +SULF1SUS10
--- NOTE | 2024-02-06 06:25 | ED.PDOC ---
Musculoskeletal HPI Comments 68-year-old male presents with a chief complaint of right leg swelling and pain x 1 week. Patient reports that his swelling began spontaneously this past week. Patient mentions that the pain and swelling began at his groin region and developed down the rest of his right leg. Patient is able to ambulate and apply weight to the leg. Patient has calf tenderness to the posterior portion. No other symptoms or modifying factors present at this time. Chief Complaint: Extremity Swelling Time Seen by MD: 06:18 Primary Care Provider: Jhon Garza Notes: Medications, Allergies Allergies: Coded Allergies: NO KNOWN ALLERGIES (Unverified , 12/04/23) Home Meds Active Scripts Amoxicillin & Pot Clavulanate (AUGMENTIN TABLET) 875 Mg Tb, 875 MG PO BID for 5 Days, #10 TAB Prov:DESTINEE WONG 02/01/24 Midodrine Hcl (Midodrine Hcl) 5 Mg Tab, 5 MG PO TID for 30 Days, #90 TAB Prov:YOANDY SALAS [employer]ARD [employer]HO[employer]ER 01/18/24 Reported Medications Sulfamethoxazole/Trimethoprim (Sulfamethoxazole/Trimetho 200-40 mg/5Ml) 1 Danielle Danielle 01/30/24 Albuterol Sulfate (Albuterol Sulfate Hfa) 108 Mcg/Act Aer, INH 01/30/24 Midodrine HCl (Midodrine Hydrochloride) 5 Mg Tab, 1 TAB PO TID 01/30/24 Risperidone (Risperidone) 2 Mg Tab, 2 MG PO BID, TAB 12/05/23 Nicotine (Nicoderm 21MG/24HR) 1 Patch Ph, 1 PATCH TOP DAILY, #28 PATCH 1 Refill 12/05/23 Mirtazapine (Mirtazapine Oral Disintegrating Tablet) 45 Mg Tab, 1 TAB PO QPM, #30 TAB 1 Refill 12/05/23 Melatonin (KP MELATONIN) 3 Mg Tab, 3 MG PO, TAB 12/05/23 Loperamide Hcl (Loperamide Hcl) 2 Mg Cap, 2 MG PO, MG 12/05/23 Leuprolide Acetate (3 Month) (Lupron Depot) 22.5 Mg Inj, 22.5 MG IM, INJ 12/05/23 Gabapentin (Gabapentin) 600 Mg Tab, 600 MG PO BID, TAB 12/05/23 Folic Acid (Folic Acid) 1 Mg Tab, 1 MG PO DAILY for 30 Days, MG 12/05/23 Fluticasone Furoate (Inhalatio (Arnuity Ellipta) 200 Mcg/Act Inh, 200 MCG IN, INHALER 12/05/23 Clotrimazole (Clotrimazole) 1 % Cre, 1 APPLIC TOP Q12HR for 30 Days, APPLIC 12/05/23 Atorvastatin Calcium (ATORVASTATIN CALCIUM) 40 Mg Tab, 1 TAB PO DAILY, #30 TAB 5 Refills 12/05/23 Aspirin (Aspir-Low) 81 Mg Tab, 81 MG PO DAILY for 30 Days, MG 12/05/23 Albuterol Sulfate (VENTOLIN MDI) 90 Mcg Ih, 90 MCG IN, INH 12/05/23 Information Source: Patient Mode of Arrival: Ambulatory Location: Right Extremity Location: Calf, Leg, Thigh Timing: Days Prehospital treatment: None Severity: Moderate Able to Move Extremity: Yes Bear Weight: Fully Pain: Moderate Hand Dominance: Right Mechanism: Unknown Circumstances: Unknown Onset of Symptoms: Spontaneous Symptoms: Swelling, Pain DVT Risk Factors: NONE Last Tetanus: Unknown Past Medical History PAST MEDICAL HISTORY: Anemia, Cancer, COPD, Schizophrenia Family History Family History: Reviewed,noncontributory to illness, Unknown Social History Smoker: Cigarettes Alcohol: Denies ETOH Use Drugs: Denies Drug Use Lives In: Home Constitutional: denies: chills, diaphoresis, fatigue, fever, malaise, sweats, weakness, others EENTM: denies: blurred vision, double vision, ear bleeding, ear discharge, ear drainage, ear pain, ear ringing, eye pain, eye redness, hearing loss, mouth pain, mouth swelling, nasal discharge, nose bleeding, nose congestion, nose pain, photophobia, tearing, throat pain, throat swelling, voice changes, others Respiratory: denies: cough, hemoptysis, orthopnea, SOB at rest, shortness of breath, SOB with excertion, stridor, wheezing, others Cardiovascular: reports: edema (RIGHT LEG - CALF/THIGH); denies: chest pain, dizzy spells, diaphoresis, Dyspnea on exertion, irregular heart beat, left arm pain, lightheadedness, palpitations, PND, syncope, others Gastrointestinal: denies: abdomen distended, abdominal pain, blood streaked bowels, constipated, diarrhea, dysphagia, difficulty swallowing, hematemesis, melena, nausea, poor appetite, poor fluid intake, rectal bleeding, rectal pain, vomiting, others Genitourinary: denies: burning, dysuria, flank pain, frequency, hematuria, incontinence, penile discharge, penile sore, pain, testicle pain, testicle swelling, urgency, others Neurological: denies: dizziness, fainting, headache, left sided numbness, left sided weakness, numbness, paresthesia, pre-existing deficit, right sided numbness, right sided weakness, seizure, speech problems, tingling, tremors, weakness, others Musculoskeletal: denies: back pain, gout, joint pain, joint swelling, muscle pain, muscle stiffness, neck pain, others Integumetry: denies: bruises, change in color, change in hair/nails, dryness, laceration, lesions, lumps, rash, wounds, others Allergic/Immunocompromised: denies: Difficulty Healing, Frequent Infections, Hives, Itching, others Hematologic/Lymphatic: denies: anemia, blood clots, easy bleeding, easy bruising, swollen glands, others Endocrine: denies: excessive hunger, excessive sweating, excessive thirst, excessive urination, flushing, intolerance to cold, intolerance to heat, unexplained weight gain, unexplained weight loss, others Psychiatric: denies: anxiety, bipolar disorder, depression, hopeless, panic disorder, schizophrenia, sleepless, suicidal, others All Other Systems: Reviewed and Negative Physical Exam General Appearance: No Apparent Distress, Normal HEENT: Normal ENT Inspection, Pharynx Normal, TMs Normal Neck: Full Range of Motion, Non-Tender, Normal, Normal Inspection Respiratory: Chest Non-Tender, Lungs Clear, No Accessory Muscle Use, No Respiratory Distress, Normal Breath Sounds Cardiovascular: No Edema, No JVD, No Murmur, No Gallop, Normal Peripheral Pulses, Regular Rate/Rhythm Breast Exam: Deferred Gastrointestinal: No Organomegaly, Non Tender, No Pulsatile Mass, Normal Bowel Sounds, Soft Genitalia: Deferred Pelvic: Deferred Rectal: Deferred Extremities: Calf tenderness, Leg edema, Normal range of motion, Swelling, Tender Musculoskeletal : Apperance: Normal Neurologic: Alert, carbon blocks press operator II-XII nml as Tested, No Motor Deficits, Normal Affect, Normal Mood, No Sensory Deficits Cerebellar Function: Normal Reflexes: Normal Skin: Dry, Normal Color, Warm Lymphatic: No Adenopathy Was a procedure done? Was a procedure done?: No Differential Diagnosis EXT Differential Diagnosis: Cellulitis, CHF, Deep Vein Thrombosis, Contusion X-Ray, Labs, Meds, VS Vital Signs Date Time Temp Pulse Resp B/P (MAP) Pulse Ox O2 Delivery O2 Flow Rate FiO2 02/06/24 10:00 98.1 91 18 117/69 (85) 98 98.1 02/06/24 08:40 17 97 Room Air* 0 21 02/06/24 07:38 98.1 72 18 106/32 (56) 98 98.1 02/06/24 06:16 97.8 87 18 99/60 (73) 98 Lab Test 02/06/24 06:58 Range/Units White Blood Count 4.1 #L 4.4-10.8 10^3/uL Red Blood Count 2.41 L 4.5-5.90 10^6/uL Hemoglobin 6.9 *L 13.5-17.5 g/dL Hematocrit 20.6 L 41.0-53.0 % Mean Corpuscular Volume 85.2 80.0-100.0 fL Mean Corpuscular Hemoglobin 28.7 28.0-32.0 pg Mean Corpuscular Hemoglobin Concent 33.7 32.0-36.0 g/dL Red Cell Distribution Width 14.9 H 11.8-14.3 % Platelet Count 61 L 140-450 10^3/uL Mean Platelet Volume 10.0 6.9-10.8 fL Neutrophils (%) (Auto) 37.0-80.0 % Lymphocytes (%) (Auto) 10.0-50.0 % Monocytes (%) (Auto) 0.0-12.0 % Eosinophils (%) (Auto) 0.0-7.0 % Basophils (%) (Auto) 0.0-2.0 % Neutrophils # (Auto) 1.6-8.6 10 ^3/uL Lymphocytes # (Auto) 0.4-5.4 10 ^3/uL Monocytes # (Auto) 0-1.3 10 ^3/uL Differential Total Cells Counted 100.0 100 Neutrophils % (Manual) 56 37.0-80.0 Band Neutrophils % (Manual) 2 Lymphocytes % (Manual) 26 10.0-50.0 Monocytes % (Manual) 4 0-12 Eosinophils % (Manual) 12 H 0-7 Basophils % (Manual) 0 0.0-2.0 Metamyelocytes % (manual) 0 Myelocytes % (Manual) 0 Promyelocytes % (Manual) 0 Blast Cells % (Manual) 0 Reactive Lymphocytes 0 Platelet Estimate Decreased Prothrombin Time 10.1 9.3-11.8 sec Prothrombin Time INR 0.95 0.9-1.15 D-Dimer, Quantitative 0.68 H 0.0-0.49 mg/L FEU Sodium Level 143 136-145 mmol/L Potassium Level 4.6 3.5-5.1 mmol/L Chloride Level 112 H 98-107 mmol/L Carbon Dioxide Level 25 20-31 mmol/L Anion Gap 6 5-15 Blood Urea Nitrogen 14 9-23 mg/dL Creatinine 0.83 0.700-1.30 mg/dL Glomerular Filtration Rate Calc 97 >90 mL/min BUN/Creatinine Ratio 16.9 10.0-20.0 Serum Glucose 106 74-106 mg/dL Calcium Level 9.5 8.7-10.4 mg/dL Troponin I High Sensitivity < 3 L </=54 ng/L Time of 1ST Reevaluation: 06:48 Reevaluation 1ST: Unchanged Patient Education/Counseling: Diagnosis, Treatment, Prognosis Family Education/Counseling: No Family Present Departure 1 Departure Time of Disposition: 11:08 (Patient with symptomatic anemia and right lower extremity edema. Ultrasound was negative for DVT we will transfuse patient admit for further workup.) Impression: Primary Impression: Symptomatic anemia Additional Impression: Swelling of right lower extremity Disposition: 09 ADMITTED INPATIENT Admit to: Med Surg Condition: Serious Critical Care Note Critical Care Time?: No Stability Stability form required: No I personally scribed for RAYRAY PAPPAS MD ([email or web address]) on 02/06/24 at 06:25. Electronically submitted by Tommy Wallace ([email or web address]). RAYRAY PAPPAS MD Feb 06, 2024 06:25
[2024-02-06 07:34] LABS: Chloride 112 mmol/L (98-107); Potassium 4.6 mmol/L (3.5-5.1); Sodium 143 mmol/L (136-145)
[2024-02-06 07:35] LABS: Anion Gap 6 (5-15); Carbon Dioxide 25 mmol/L (20-31)
[2024-02-06 07:36] LABS: Calcium 9.5 mg/dL (8.7-10.4)
[2024-02-06 07:38] LABS: Hematocrit 20.6 % (41.0-53.0); Red Blood Cells 2.41 10^6/uL (4.5-5.90); Red Cell Distribution Width 14.9 % (11.8-14.3)
[2024-02-06 07:40] LABS: Glucose 106 mg/dL (74-106); Mean Corpuscular Hemoglobin 28.7 pg (28.0-32.0); Mean Corpuscular Hgb Conc. 33.7 g/dL (32.0-36.0); Mean Corpuscular Volume 85.2 fL (80.0-100.0); Platelet Count (auto) 61 10^3/uL (140-450); White Blood Cell 4.1 10^3/uL (4.4-10.8)
[2024-02-06 07:41] LABS: BUN/Creatinine Ratio 16.9 (10.0-20.0); Blood Urea Nitrogen 14 mg/dL (9-23)
[2024-02-06 07:46] LABS: Hemoglobin 6.9 g/dL (13.5-17.5)
[2024-02-06 07:47] LABS: Basophils % (manual) 0 (0.0-2.0); Blast Cells 0; Metamyelocytes % 0; Myelocytes % 0; Promyelocytes % 0; Reactive Lymphocytes 0
--- NOTE | 2024-02-06 07:49 | DVH ---
Right lower extremity venous duplex. Clinical History: right lower leg swelling Comparison: US RT LOWER DVT on DOS: 02/02/24 Findings: Duplex Doppler evaluation of the deep venous systems of right lower extremity from the common femoral veins to the popliteal veins including color Doppler and spectral/pulsed waveform analysis was perfo rmed. RIGHT SIDE: The common femoral vein demonstrates appropriate compressibility and waveform variability. There is compressibility/patency of the great saphenous vein at the proximal thigh. The femoral vein demonstrates appropriate compressibility and waveform variability. The deep femoral vein demonstrates appropriate compressibility and waveform variability. The popliteal vein demonstrates appropriate compressibility and waveform variability. There is normal compressibility at the tibioperoneal trunk. Right groin lymph node measures 1.3 x 0.8 x 0.4 cm. Impression: 1. No deep vein thrombosis in the right lower extremity.
[2024-02-06 08:13] LABS: INR 0.95 (0.9-1.15); Prothrombin Time 10.1 sec (9.3-11.8)
[2024-02-06 08:54] LABS: Band Neutrophils % (manual) 2; Eosinophils % (manual) 12 (0-7); Lymphocytes % (manual) 26 (10.0-50.0); Monocytes % (manual) 4 (0-12); Platelet Estimate Decreased
[2024-02-06] MEDS ORDERED: ONDANSETRON HCL 4 MG/2 ML VIAL IV PRN (11:30)
[2024-02-06] MEDS ORDERED: TEMAZEPAM 15 MG CAP PO PRN (11:30)
[2024-02-06] MEDS ORDERED: MAALOX PLUS or MAALOX 30 ML PO PRN (11:30)
[2024-02-06] MEDS ORDERED: LORazepam 0.5 MG TAB PO PRN (11:30)
[2024-02-06] MEDS ORDERED: ACETAMINOPHEN 325 MG TAB PO PRN (11:30)
[2024-02-06] MEDS ORDERED: MORPHINE SULFATE INJ 2 MG/ml SYRG IV PRN (11:30)
[2024-02-06] MEDS ORDERED: DOCUSATE SOD 100 MG CAP PO PRN (11:30)
--- NOTE | 2024-02-06 12:13 | DVHHP2 ---
History of Present Illness Reason for Visit: weakness History of Present Illness 68 yo history prostate cancer, COPD hypotension and anemia came in with weakness and complaints of anemia based symptoms patient was evaluated and show to have symptomtons of anemia as well as low bp and was recommended for admission and continued symptomatic management Pulmonary: COPD Heme/Onc: Anemia NOS, Cancer Review of Systems Constitutional: Yes: Weakness; No: Fever, Chills, Sweats, Malaise, Other Eyes: No: Pain, Vision change, Conjunctivae inflammation, Eyelid inflammation, Other, Redness ENT: No: Ear pain, Ear discharge, Nose pain, Nose discharge, Nose congestion, Mouth pain, Mouth swelling, Throat pain, Throat swelling, Other Respiratory: Shortness of breath; No: Cough, Dry, SOB with excertion, Wheezing, Hemoptysis, Pleuritic Pain, Sputum, Wheezing, Other Cardiovascular: No: Chest Pain, Palpitations, Orthopnea, Paroxysmal Noc. Dyspnea, Edema, Lt Headedness, Other Gastrointestinal: No: Nausea, Vomiting, Abdominal Pain, Diarrhea, Constipation, Melena, Hematochezia, Other Genitourinary: No Dysuria, No Frequency, No Incontinence, No Hematuria, No Retention, No Other Musculoskeletal: leg pain; No: other, neck pain, shoulder pain, arm pain, back pain, hand pain, foot pain Skin: No: Rash, Lesions, Jaundice, Bruising, Other Neurological: Weakness; No: Numbness, Incoordination, Change in speech, Confusion, Seizures, Other Allergies: Coded Allergies: NO KNOWN ALLERGIES (Unverified , 12/04/23) Medications Current Medications Medications Dose Ordered Sig/Fabricio Route Start Time Stop Time Status Last Admin Dose Admin Loperamide HCl 2 mg DAILY PO 02/07/24 10:00 Nicotine 1 patch DAILY TD 02/07/24 10:00 Atorvastatin Calcium 40 mg DAILY PO 02/07/24 10:00 Folic Acid 1 mg DAILY PO 02/07/24 10:00 Gabapentin 600 mg BID PO 02/06/24 22:00 Midodrine 5 mg TID PO 02/06/24 14:00 Patient Own Medication 1 tab TID PO 02/06/24 14:00 UNV Albuterol 2.5 mg Q4HWA PRN NEB 02/06/24 11:30 Ipratropium [place] 0.5 mg Q4HWA PRN NEB 02/06/24 11:30 Sodium Chloride 1,000 ml @ 60 mls/hr [id number] IV 02/06/24 11:30 Lorazepam 0.5 mg Q6HP PRN PO 02/06/24 11:30 Al Hydrox/Mg Hydrox/Simethicone 30 ml Q6HP PRN PO 02/06/24 11:30 Docusate Sodium 100 mg BIDPRN PRN PO 02/06/24 11:30 Acetaminophen 650 mg Q6HP PRN PO 02/06/24 11:30 Temazepam 15 mg QHSP PRN PO 02/06/24 11:30 Acetaminophen/ Hydrocodone Bitart 1 tab Q4HP PRN PO 02/06/24 11:30 Ondansetron HCl 4 mg Q4HP PRN IV 02/06/24 11:30 Morphine Sulfate 2 mg Q4HPRN PRN IV 02/06/24 11:30 Exam Vital Signs Vital Signs Date Time Temp Pulse Resp B/P (MAP) Pulse Ox O2 Delivery O2 Flow Rate FiO2 02/06/24 10:00 98.1 91 18 117/69 (85) 98 98.1 02/06/24 08:40 Room Air* 0 21 General Appearance: Alert, Oriented X3, mild distress HEENT: Atraumatic, PERRLA Respiratory: Clear to auscultation, Normal air movement Cardiovascular: Regular rate, Normal S1, Normal S2 Abdominal: Normal bowel sounds, Soft, No tenderness Extremities: No clubbing (swelling ), No cyanosis Skin: No rashes, No breakdown Neuro: Normal gait, Normal speech Psych/Mental Status: Mood NL Labs/Xrays Labs Test 02/06/24 06:58 Range/Units White Blood Count 4.1 #L 4.4-10.8 10^3/uL Red Blood Count 2.41 L 4.5-5.90 10^6/uL Hemoglobin 6.9 *L 13.5-17.5 g/dL Hematocrit 20.6 L 41.0-53.0 % Mean Corpuscular Volume 85.2 80.0-100.0 fL Mean Corpuscular Hemoglobin 28.7 28.0-32.0 pg Mean Corpuscular Hemoglobin Concent 33.7 32.0-36.0 g/dL Red Cell Distribution Width 14.9 H 11.8-14.3 % Platelet Count 61 L 140-450 10^3/uL Mean Platelet Volume 10.0 6.9-10.8 fL Neutrophils (%) (Auto) 37.0-80.0 % Lymphocytes (%) (Auto) 10.0-50.0 % Monocytes (%) (Auto) 0.0-12.0 % Eosinophils (%) (Auto) 0.0-7.0 % Basophils (%) (Auto) 0.0-2.0 % Neutrophils # (Auto) 1.6-8.6 10 ^3/uL Lymphocytes # (Auto) 0.4-5.4 10 ^3/uL Monocytes # (Auto) 0-1.3 10 ^3/uL Differential Total Cells Counted 100.0 100 Neutrophils % (Manual) 56 37.0-80.0 Band Neutrophils % (Manual) 2 Lymphocytes % (Manual) 26 10.0-50.0 Monocytes % (Manual) 4 0-12 Eosinophils % (Manual) 12 H 0-7 Basophils % (Manual) 0 0.0-2.0 Metamyelocytes % (manual) 0 Myelocytes % (Manual) 0 Promyelocytes % (Manual) 0 Blast Cells % (Manual) 0 Reactive Lymphocytes 0 Platelet Estimate Decreased Prothrombin Time 10.1 9.3-11.8 sec Prothrombin Time INR 0.95 0.9-1.15 D-Dimer, Quantitative 0.68 H 0.0-0.49 mg/L FEU Sodium Level 143 136-145 mmol/L Potassium Level 4.6 3.5-5.1 mmol/L Chloride Level 112 H 98-107 mmol/L Carbon Dioxide Level 25 20-31 mmol/L Anion Gap 6 5-15 Blood Urea Nitrogen 14 9-23 mg/dL Creatinine 0.83 0.700-1.30 mg/dL Glomerular Filtration Rate Calc 97 >90 mL/min BUN/Creatinine Ratio 16.9 10.0-20.0 Serum Glucose 106 74-106 mg/dL Calcium Level 9.5 8.7-10.4 mg/dL Troponin I High Sensitivity < 3 L </=54 ng/L Assessment/Plan Assessment/Plan Admit Med/Surg Symptomatic Anemia History Prostate Cancer No Acute signs of active bleed H/H < 7 Type and screen and PRBC ordered patient symptomatic chest pain evaluation Schizophrenia History c/w home meds respiradone major home meds Hypotension midroine home meds continue Plan discussed with: Patient My Orders Orders - MARISOL MATTA MD Procedure Category Date Status Time Loperamide Capsule PHA 02/07/24 In Process (Imodium Capsule) 10:00 Nicotine 21mg/24hr PHA 02/07/24 In Process (Nicoderm 21mg/24hr) 10:00 Atorvastatin (Lipitor) PHA 02/07/24 In Process 10:00 Folic Acid Tablet PHA 02/07/24 In Process 10:00 Gabapentin Capsule PHA 02/06/24 In Process (Neurontin Capsule) 22:00 Midodrine Tablet PHA 02/06/24 In Process (Proamatine Tablet) 14:00 Albuterol Medneb PHA 02/06/24 In Process (Ventolin Medneb) 11:30 Ipratropium Medneb PHA 02/06/24 In Process (Atrovent Medneb) 11:30 Med Neb Initial RT 02/06/24 Logged Treatment 11:17 Admit ADMIT 02/06/24 Transmitted 11:17 Code Status CODE 02/06/24 Transmitted 11:17 Vital Signs KATIA 02/06/24 In Process 11:17 Review Orders With KATIA 02/06/24 In Process Adm. 11:17 Regular Diet DIET 02/06/24 Transmitted Lunch Sodium Chloride 0.9% PHA 02/06/24 In Process 11:30 Lorazepam Tablet PHA 02/06/24 In Process (Ativan Tablet) 11:30 Alum & Mag PHA 02/06/24 In Process Hydrox-Simethicone 11:30 Docusate Sodium PHA 02/06/24 In Process Capsule (Colace 11:30 Acetaminophen Tablet PHA 02/06/24 In Process (Tylenol Tablet) 11:30 Temazepam (Restoril) PHA 02/06/24 In Process 11:30 Notify Md Of Changes KATIA 02/06/24 In Process From Base 11:17 Advance Directive KATIA 02/06/24 In Process 11:17 Basic Metabolic Panel LAB 02/07/24 Verified 04:00 Complete Blood Count LAB 02/07/24 Verified 04:00 Patient Condition ORDERS 02/06/24 Transmitted 11:17 Allergies KATIA 02/06/24 In Process 11:17 Hydrocodone-Acet PHA 02/06/24 In Process 5/325mg Tab ([place] 11:30 Ondansetron Hcl PHA 02/06/24 In Process (Zofran) 11:30 Morphine Sulfate PHA 02/06/24 In Process Injection 11:30 Notify Md Of Changes KATIA 02/06/24 In Process From Base 11:17 Oxygen By Nasal RT 02/06/24 Transmitted Cannula 11:17 Problem List: (1) Weakness (2) Dizziness (3) Hypokalemia (4) Hypotension (5) Symptomatic anemia (6) Swelling of right lower extremity Date of Service: Feb 06, 2024 Billing Provider: MARISOL MATTA MD Common Visit Codes: [id number] INP/OBS CARE (HIGH) MARISOL MATTA MD Feb 06, 2024 12:13
[2024-02-06] MEDS: SODIUM CHLORIDE 0.9% 1,000 ML IV SCH (13:10)
[2024-02-06] MEDS: MIDODRINE HCL 10 MG TAB PO SCH (13:54)
[2024-02-06] MEDS ORDERED: MIDODRINE HCL PO SCH (14:00)
[2024-02-06] MEDS: IPRATROPIUM BROM 0.5 MG/2.5ML INH SOL NEB PRN (18:46)
[2024-02-06] MEDS: ALBUTEROL SULF 2.5 MG/0.5ML(0.5%) NEB SOLN NEB PRN (18:46)
[2024-02-06] MEDS: HYDROcodone-ACET 5/325MG TAB PO PRN (20:44)
[2024-02-06] MEDS: GABAPENTIN 300 MG CAP PO SCH (22:29)
[2024-02-07] VITALS (10 sets, daily range): BP systolic 89–103; BP diastolic 48–83; PULSE 63–95; RESP 16–20; TEMP 97.9–98.7; O2SAT 94–98
[2024-02-07 06:01] LABS: Mean Corpuscular Volume 83.4 fL (80.0-100.0); Platelet Count (auto) 46 10^3/uL (140-450); White Blood Cell 4.1 10^3/uL (4.4-10.8)
[2024-02-07 06:03] LABS: Hematocrit 22.2 % (41.0-53.0); Hemoglobin 7.8 g/dL (13.5-17.5); Mean Corpuscular Hemoglobin 29.2 pg (28.0-32.0); Red Blood Cells 2.66 10^6/uL (4.5-5.90); Red Cell Distribution Width 15.3 % (11.8-14.3)
[2024-02-07 06:09] LABS: Anion Gap 6 (5-15); Carbon Dioxide 25 mmol/L (20-31); Chloride 111 mmol/L (98-107); Potassium 4.5 mmol/L (3.5-5.1); Sodium 142 mmol/L (136-145)
[2024-02-07 06:10] LABS: Basophils % (manual) 0 (0.0-2.0); Blast Cells 0; Calcium 9.2 mg/dL (8.7-10.4); Metamyelocytes % 0; Myelocytes % 0; Promyelocytes % 0; Reactive Lymphocytes 0
[2024-02-07 06:15] LABS: BUN/Creatinine Ratio 16.7 (10.0-20.0); Blood Urea Nitrogen 14 mg/dL (9-23); Glucose 95 mg/dL (74-106)
[2024-02-07 07:47] LABS: Band Neutrophils % (manual) 2; Eosinophils % (manual) 32 (0-7); Lymphocytes % (manual) 26 (10.0-50.0); Monocytes % (manual) 2 (0-12); Platelet Estimate Decreased
[2024-02-07] MEDS: NICOTINE 21MG/24 HR TOPICAL PATCH TD SCH (09:02)
[2024-02-07] MEDS: LOPERAMIDE HCL 2 MG CAP/TAB PO SCH (09:03)
[2024-02-07] MEDS: ATORVASTATIN 20 MG TAB PO SCH (09:03)
[2024-02-07] MEDS: FOLIC ACID 1 MG TAB PO SCH (09:04)
[2024-02-07] MEDS ORDERED: IOHEXOL 300 MG/ML 100ML BOTTLE IJ ONE (15:43)
[2024-02-07 16:05] LABS: Alanine Aminotransferase 44 U/L (7-40); Albumin 3.4 g/dL (3.2-4.8); Alkaline Phosphatase 93 U/L (46-116); Anion Gap 6 (5-15); Aspartate Aminotransferase 23 U/L (13-40); BUN/Creatinine Ratio 17.7 (10.0-20.0); Blood Urea Nitrogen 14 mg/dL (9-23); Calcium 9.3 mg/dL (8.7-10.4); Carbon Dioxide 25 mmol/L (20-31); Chloride 109 mmol/L (98-107); Glucose 99 mg/dL (74-106); Potassium 4.3 mmol/L (3.5-5.1); Sodium 140 mmol/L (136-145)
[2024-02-07 16:06] LABS: Bilirubin, Total 0.3 mg/dL (0.2-1.0); Total Protein 6.1 g/dL (5.7-8.2)
--- NOTE | 2024-02-07 16:22 | DVH ---
Exam: CT CT AB PEL WITH IV CON ONLY History: ABD LYMPHADENOPATHY H/O PROSTATE CA TECHNIQUE: A digital dog show judge image was obtained. During the uneventful, intravenous administration of c ontrast material, multislice data acquisition was obtained through the abdomen and pelvis. The data s et was subsequently reconstructed into axial images. Images were reviewed on a work station using a c ombination of axial and multiplanar using a variety of window levels and settings. 100 cc of Omnipaqu e 300 contrast was injected intravenously. All CT scans at this medical facility are performed using dose modulation techniques as appropriate t o a performed exam including the following:Automated exposure control was utilized; adjustment of the MA and/or KV according to patient size; and use of iterative reconstruction technique. Radiation Dose Information: CT Dose: CTDI volume is 11.28 mGy. Dose-length product is 601.74 mGy*cm Comparison: None. FINDINGS: The gallbladder is contracted with small calcified gallstones. Theliver, pancreas, kidneys, adrenal glands, and spleen appear within normal limits. There is no evidence of mesenteric or retroperitoneal lymphadenopathy. There is no free fluid or free air. The stomach grossly appears unremarkable. The small and large bowel loops demonstrate normal caliber and appear within normal limits.. The abdominal aorta and IVC appear within normal limits. The prostate gland is not seen and is probably surgically absent. The bladder is poorly filled and de monstrates marked circumferential wall thickening which May relate to posttreatment changes. There is no evidence of a pelvic mass or lymphadenopathy. There is no free fluid collection. There is soft t issue thickening and fat stranding the base of the penis which May relate to posttreatment changes. There is scarring versus atelectasis in the posterior lung bases. There is no acute osseous abnormality. There is dextroconvex curvature of the lumbar spine with multi level degenerative changes. IMPRESSION: 1. The prostate gland is not seen and is probably surgically absent. There are likely posttreatment changes in the pelvis with marked circumferential bladder wall thickening. 2. There is no evidence of metastatic disease in the abdomen and pelvis. 3. Contracted gallbladder with small calcified gallstones. HS:Y
--- NOTE | 2024-02-07 19:33 | DVHPNRES ---
Progress Note Date Seen: Feb 07, 2024 Resident Creating Document: SACHIN ATKINSON RESIDENT Has the PT tested + for MRSA If YES, has PT been informed?: No Medical Necessity Reason Pt with a Central, PICC or Fol: No Subjective Review of Systems A 68-year-old male with a history of myelodysplastic syndrome, prostate cancer, schizophrenia, COPD, and anemia presented to the ED with weakness and mild SOB At admission hb 6.9 plat 61 which required transfussion of 2 units of RBC Pt also complained on right inguinal pain Objective vital signs Vital Sign Date Time Temp Pulse Resp B/P (MAP) Pulse Ox O2 Delivery O2 Flow Rate FiO2 02/07/24 18:51 95 16 97 02/07/24 18:47 Room Air 02/07/24 18:47 0 21 02/07/24 17:23 98.7 103/83 (90) 98.7 Total Intake and Output 02/06/24 02/06/24 02/07/24 15:00 23:00 07:00 Intake Total 60 ml 1280 ml Output Total 200 ml 100 ml Balance -140 ml 1180 ml medications Current Medications Medications Dose Ordered Sig/Fabricio Route Start Time Stop Time Status Last Admin Dose Admin Loperamide HCl 2 mg DAILY PO 02/07/24 10:00 02/07/24 09:03 2 MG Nicotine 1 patch DAILY TD 02/07/24 10:00 02/07/24 09:02 1 PATCH Atorvastatin Calcium 40 mg DAILY PO 02/07/24 10:00 02/07/24 09:03 40 MG Folic Acid 1 mg DAILY PO 02/07/24 10:00 02/07/24 09:04 1 MG Gabapentin 600 mg BID PO 02/06/24 22:00 02/07/24 09:03 600 MG Midodrine 5 mg TID PO 02/06/24 14:00 02/07/24 13:38 5 MG Patient Own Medication 1 tab TID PO 02/06/24 14:00 UNV Albuterol 2.5 mg Q4HWA PRN NEB 02/06/24 11:30 02/06/24 18:46 2.5 MG Ipratropium [place] 0.5 mg Q4HWA PRN NEB 02/06/24 11:30 02/06/24 18:46 0.5 MG Sodium Chloride 1,000 ml @ 60 mls/hr [id number] IV 02/06/24 11:30 02/06/24 13:10 60 MLS/HR Lorazepam 0.5 mg Q6HP PRN PO 02/06/24 11:30 Al Hydrox/Mg Hydrox/Simethicone 30 ml Q6HP PRN PO 02/06/24 11:30 Docusate Sodium 100 mg BIDPRN PRN PO 02/06/24 11:30 Acetaminophen 650 mg Q6HP PRN PO 02/06/24 11:30 Temazepam 15 mg QHSP PRN PO 02/06/24 11:30 Acetaminophen/ Hydrocodone Bitart 1 tab Q4HP PRN PO 02/06/24 11:30 02/06/24 20:44 1 TAB Ondansetron HCl 4 mg Q4HP PRN IV 02/06/24 11:30 Morphine Sulfate 2 mg Q4HPRN PRN IV 02/06/24 11:30 Risperidone 2 mg BID PO 02/07/24 22:00 UNV Examination Gen - pale, no icterus, no cyanosis, no clubbing, no LAD, no edema . Skin - Patients skin is warm and dry.. HEENT - normocephalic, atraumatic, moist mucous membranes. Neck - full ROM, no LAD, JVP waveform is not seen. Pulmonary - B/L vesicular breath sounds. no crackles , no wheezing, no stridor. cardiovascular - normal S1,S2 heard. no murmurs heard. peripheral pulses normal radial 2+, pedal 2+. capillary refill normal <2 secs. GI - soft abdomen with tenderness to palpation in the right and the left iliac regions. no tenderness to deep palpation . no hepatospleenomegaly. Neurological - Patient is A/O X 3 . Bilateral upper extremity strength 5/5, bilateral lower extremity strength 5/5, no facial droop, normal speech, no tremor, no sensory deficiets. laboratory and microbiology Laboratory Tests 02/07/24 15:36 02/07/24 05:45 Test 02/07/24 15:36 Range/Units Serum Glucose 99 74-106 mg/dL Microbiology Date/Time Source Procedure Growth Status 02/07/24 07:30 Nose MRSA Screen - Final Complete Problem List/Assessment/Plan Problem List/Assessment/Plan #Anemia due to myelodysplastic syndrome hb 6.9 - 7.[address] Haque , hemato oncology outpatient he had an appt with him today but he missed Dr Haque was consulted 2 RBC units given Type and screen ordered # Thrombocytopenia Likely due to underlying MDS # Chronic hyperlipidemia: atorvastatin 40 mg # history of COPD: albuterol and ipratropium PRN # Previous history of prostate cancer: status post TURP CT scan:1. The prostate gland is not seen and is probably surgically absent. There are likely posttreatment changes in the pelvis with marked circumferential bladder wall thickening. 2. There is no evidence of metastatic disease in the abdomen and pelvis. 3. Contracted gallbladder with small calcified gallstones. #Cholelitiasis: asymptomatic at the moment # Schizophrenia: Risperidone 2 mg p.o. to continue # Diet: Regular NO DVT prophylaxis Case discussed with Dr. Rogers Plan discussed with: Patient, Other (rn) My Orders My Orders Orders - SACHIN ATKINSON RESIDENT Procedure Category Date Status Time *Consult Dr. Wanda Haque CONS 02/07/24 Transmitted 13:49 Ct Ab Pel With Iv Con CT 02/07/24 Resulted Only 15:25 Risperidone Tablet PHA 02/07/24 Logged (Risperdal Tablet) 22:00 CC Plasma Assessment Blood Product Administration S: 1911 Date of Service: Feb 07, 2024 Billing Provider: JUAN ROGERS MD Common Visit Codes: [id number] INP/OBS CARE(HIGH) Coding Comment Comment Attending Attestation I saw and evaluated the patient. I reviewed the residents note and agree with findings and plan as documented in the residents note except as documented below. 68-year-old male known to the service, admitted for symptomatic anemia, status post 2 units PRBC. Patient had MDS and requires chronic transfusion. SACHIN ATKINSON RESIDENT Feb 07, 2024 19:33 JUAN ROGERS MD Feb 07, 2024 19:56
[2024-02-07] MEDS: risperiDONE 1 MG TAB PO SCH (21:37)
[2024-02-08 01:00] VITALS: BP 92/52; PULSE 66; RESP 17; TEMP 98.2; O2SAT 95
[2024-02-08 05:00] VITALS: BP 87/55; PULSE 68; RESP 19; TEMP 98.2; O2SAT 94
[2024-02-08 05:40] LABS: Hematocrit 24.2 % (41.0-53.0); Hemoglobin 8.3 g/dL (13.5-17.5); Mean Corpuscular Hemoglobin 28.9 pg (28.0-32.0); Mean Corpuscular Hgb Conc. 34.1 g/dL (32.0-36.0); Mean Corpuscular Volume 84.8 fL (80.0-100.0); Platelet Count (auto) 46 10^3/uL (140-450); Red Blood Cells 2.86 10^6/uL (4.5-5.90); Red Cell Distribution Width 15.5 % (11.8-14.3); White Blood Cell 4.1 10^3/uL (4.4-10.8)
[2024-02-08 05:41] LABS: Basophils % (manual) 0 (0.0-2.0); Blast Cells 0; Metamyelocytes % 0; Myelocytes % 0; Promyelocytes % 0; Reactive Lymphocytes 0
[2024-02-08 05:56] LABS: Alanine Aminotransferase 43 U/L (7-40); Albumin 3.4 g/dL (3.2-4.8); Alkaline Phosphatase 88 U/L (46-116); Anion Gap 6 (5-15); Aspartate Aminotransferase 20 U/L (13-40); BUN/Creatinine Ratio 15.9 (10.0-20.0); Bilirubin, Total 0.5 mg/dL (0.2-1.0); Blood Urea Nitrogen 13 mg/dL (9-23); Calcium 9.5 mg/dL (8.7-10.4); Carbon Dioxide 26 mmol/L (20-31); Chloride 111 mmol/L (98-107); Glucose 99 mg/dL (74-106); Potassium 4.6 mmol/L (3.5-5.1); Sodium 143 mmol/L (136-145); Total Protein 6.2 g/dL (5.7-8.2)
[2024-02-08 06:46] LABS: Band Neutrophils % (manual) 1; Eosinophils % (manual) 19 (0-7); Lymphocytes % (manual) 21 (10.0-50.0); Monocytes % (manual) 3 (0-12)
[2024-02-08 06:47] LABS: Large Platelets FEW; Platelet Estimate Decreased
[2024-02-08 08:25] VITALS: PULSE 74; RESP 16; O2SAT 93
[2024-02-08 08:45] VITALS: BP 106/68; PULSE 73; RESP 19; TEMP 97.7; O2SAT 93
[2024-02-08 13:00] VITALS: BP 97/58; PULSE 56; RESP 19; TEMP 98.2; O2SAT 96
[2024-02-08 13:03] VITALS: TEMP 36.5
[2024-02-08] MEDS ORDERED: HYD1TP TOP (14:06)
--- NOTE | 2024-02-08 18:25 | DVHDSRES ---
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 syndrome Labs/Diagnostic Data: Laboratory Results Test 02/08/24 05:07 02/07/24 05:45 02/06/24 06:58 White Blood Count 4.1 10^3/uL (4.4-10.8) Red Blood Count 2.86 10^6/uL (4.5-5.90) Hemoglobin 8.3 g/dL (13.5-17.5) Hematocrit 24.2 % (41.0-53.0) Mean Corpuscular Volume 84.8 fL (80.0-100.0) Mean Corpuscular Hemoglobin 28.9 pg (28.0-32.0) Mean Corpuscular Hemoglobin Concent 34.1 g/dL (32.0-36.0) Red Cell Distribution Width 15.5 % (11.8-14.3) Platelet Count 46 10^3/uL (140-450) Mean Platelet Volume 9.8 fL (6.9-10.8) Neutrophils (%) (Auto) % (37.0-80.0) Lymphocytes (%) (Auto) % (10.0-50.0) Monocytes (%) (Auto) % (0.0-12.0) Eosinophils (%) (Auto) % (0.0-7.0) Basophils (%) (Auto) % (0.0-2.0) Neutrophils # (Auto) 10 ^3/uL (1.6-8.6) Lymphocytes # (Auto) 10 ^3/uL (0.4-5.4) Monocytes # (Auto) 10 ^3/uL (0-1.3) Differential Total Cells Counted 100.0 (100) Neutrophils % (Manual) 56 (37.0-80.0) Band Neutrophils % (Manual) 1 Lymphocytes % (Manual) 21 (10.0-50.0) Monocytes % (Manual) 3 (0-12) Eosinophils % (Manual) 19 (0-7) Basophils % (Manual) 0 (0.0-2.0) Metamyelocytes % (manual) 0 Myelocytes % (Manual) 0 Promyelocytes % (Manual) 0 Blast Cells % (Manual) 0 Reactive Lymphocytes 0 Platelet Estimate Decreased Large Platelets Few Sodium Level 143 mmol/L (136-145) Potassium Level 4.6 mmol/L (3.5-5.1) Chloride Level 111 mmol/L (98-107) Carbon Dioxide Level 26 mmol/L (20-31) Anion Gap 6 (5-15) Blood Urea Nitrogen 13 mg/dL (9-23) Creatinine 0.82 mg/dL (0.700-1.30) Glomerular Filtration Rate Calc 97 mL/min (>90) BUN/Creatinine Ratio 15.9 (10.0-20.0) Serum Glucose 99 mg/dL (74-106) Calcium Level 9.5 mg/dL (8.7-10.4) Total Bilirubin 0.5 mg/dL (0.2-1.0) Aspartate Amino Transferase (AST) 20 U/L (13-40) Alanine Aminotransferase (ALT) 43 U/L (7-40) Alkaline Phosphatase 88 U/L (46-116) Total Protein 6.2 g/dL (5.7-8.2) Albumin 3.4 g/dL (3.2-4.8) Schistocytes Few Prothrombin Time 10.1 sec (9.3-11.8) Prothrombin Time INR 0.95 (0.9-1.15) D-Dimer, Quantitative 0.68 mg/L FEU (0.0-0.49) Troponin I High Sensitivity < 3 ng/L (</=54) Other Laboratory Tests 02/08/24 05:07 Brief Hx & Hospital Course: A 68-year-old male with a history of myelodysplastic syndrome, prostate cancer, schizophrenia, COPD, and anemia presented to the ED with weakness and mild SOB At admission hb 6.9 plat 61 which required transfussion of 2 units of RBC Pt also complained on right inguinal pain and rash, ct scan abdomen/pelvis didnt show anything acute Patient is f/u with Dr Haque as outpatient Patient can be discharge today hb above 8 Gen - pale, no icterus, no cyanosis, no clubbing, no LAD, no edema . Skin - Patients skin is warm and dry.. HEENT - normocephalic, atraumatic, moist mucous membranes. Neck - full ROM, no LAD, JVP waveform is not seen. Pulmonary - B/L vesicular breath sounds. no crackles , no wheezing, no stridor. cardiovascular - normal S1,S2 heard. no murmurs heard. peripheral pulses normal radial 2+, pedal 2+. capillary refill normal <2 secs. GI - soft abdomen with tenderness to palpation in the right and the left iliac regions. no tenderness to deep palpation . no hepatospleenomegaly. Neurological - Patient is A/O X 3 . Bilateral upper extremity strength 5/5, bilateral lower extremity strength 5/5, no facial droop, normal speech, no tremor, no sensory deficiets. Case discussed with Dr Rogers Operations or Procedures Exam: CT CT AB PEL WITH IV CON ONLY History: ABD LYMPHADENOPATHY H/O PROSTATE CA TECHNIQUE: A digital physical sciences professor image was obtained. During the uneventful, intravenous administration of contrast material, multislice data acquisition was obtained through the abdomen and pelvis. The data set was subsequently reconstructed into axial images. Images were reviewed on a work station using a combination of axial and multiplanar using a variety of window levels and settings. 100 cc of Omnipaque 300 contrast was injected intravenously. All CT scans at this medical facility are performed using dose modulation techniques as appropriate to a performed exam including the following:Automated exposure control was utilized; adjustment of the MA and/or KV according to patient size; and use of iterative reconstruction technique. Radiation Dose Information: CT Dose: CTDI volume is 11.28 mGy. Dose-length product is 601.74 mGy*cm Comparison: None. FINDINGS: The gallbladder is contracted with small calcified gallstones. Theliver, pancreas, kidneys, adrenal glands, and spleen appear within normal limits. There is no evidence of mesenteric or retroperitoneal lymphadenopathy. There is no free fluid or free air. The stomach grossly appears unremarkable. The small and large bowel loops demonstrate normal caliber and appear within normal limits.. The abdominal aorta and IVC appear within normal limits. The prostate gland is not seen and is probably surgically absent. The bladder is poorly filled and demonstrates marked circumferential wall thickening which May relate to posttreatment changes. There is no evidence of a pelvic mass or lymphadenopathy. There is no free fluid collection. There is soft tissue thickening and fat stranding the base of the penis which May relate to posttreatment changes. There is scarring versus atelectasis in the posterior lung bases. There is no acute osseous abnormality. There is dextroconvex curvature of the lumbar spine with multilevel degenerative changes. IMPRESSION: 1. The prostate gland is not seen and is probably surgically absent. There are likely posttreatment changes in the pelvis with marked circumferential bladder wall thickening. 2. There is no evidence of metastatic disease in the abdomen and pelvis. 3. Contracted gallbladder with small calcified gallstones. 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 # Thrombocytopenia Likely due to underlying MDS # Chronic hyperlipidemia # history of COPD # Previous history of prostate cancer: status post TURP #Cholelitiasis # Schizophrenia Discharge Disposition: Home Discharge Instruct/Medications Diet: Consistent carbohydrate, Cardiac 2g Na,low cholest Activity: No Restrictions, As Tolerated Follow Up/Referral: f/u with Dr Haque Medications: resume home meds Discharge Statement: "Patient was advised to return to the ER or call 911 if any headaches, dizziness, shortness of breath, chest pain, abdominal pain, bleeding, fevers, or worsening of medical condition. Patient was counseled about treatment plan, medications, possible side effects, patientverbalized understanding. All questions were answered to the best of my ability. This discharge took greater then 30 minutes in planning, reviewing documentation, counseling the patient, and discussing with other team members." ASSESSMENT ASSESSMENT Assessment anemia MDS Date of Service: Feb 09, 2024 Billing Provider: JUAN ROGERS MD Common Visit Codes: 99447-[id number]/OBS DISCH DAY >30min SACHIN ATKINSON RESIDENT Feb 08, 2024 18:25 JUAN ROGERS MD Feb 09, 2024 21:48
== END 2024-02-08 15:30 | disposition home or self-care (01) | DRG 694 ==
LOC: ER 05:45 → OVERFLOW 11:17 → EAST 22:51
PROVIDERS: ADMIT Student in an Organized Health Care Education/Training Program; ATTEND Student in an Organized Health Care Education/Training Program
PROC: 30233N1 Transfusion of Nonautologous Red Blood Cells into Peripheral Vein, Percutaneous Approach (ICD-10-PCS; principal; 2024-02-06)
DX: D46.9 Myelodysplastic syndrome, unspecified (principal); D69.6 Thrombocytopenia, unspecified; E87.6 Hypokalemia; F17.210 Nicotine dependence, cigarettes, uncomplicated; K80.20 Calculus of gallbladder without cholecystitis without obstruction; I10 Essential (primary) hypertension; F20.9 Schizophrenia, unspecified; J44.9 Chronic obstructive pulmonary disease, unspecified; Z85.46 Personal history of malignant neoplasm of prostate
CPT/HCPCS: 36415; 74177; 80048; 80053; 84484; 85007; 85027; 85379; 85610; 86850; 86900; 86901; 86902; 86922; 87081; 93971; 94640; G0378

== ENCOUNTER 2024-02-13 06:18 | Emergency (ER) | payer MEDICARE, MEDICAID ==
[~2024-02-13] VITALS: Ht 180.3 cm; Wt 172.0 kg
[~2024-02-13 06:18] MED LIST changes: -ASPI-543 PO; -AUG875T PO; -CLOT1CRE51 TOP; +HYD1TP TOP; -LOPE2CAP PO; -SULF1SUS10
--- NOTE | 2024-02-13 07:00 | ECG ---
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
--- NOTE | 2024-02-13 07:03 | ED.PDOC ---
History of Present Illness HPI Comments 68-year-old male with PMHx severe anemia presents with a chief complaint of weakness, dizzy spells, and lightheadedness. Patient states that every Monday he comes into the ER to have his blood levels checked because he normally gets a blood transfusion weekly. Patient mentions that he is feeling dizzy and weak which typically indicates for him that he is in need of a blood transfusion. Patient mentions that he has not fallen despite the dizzy spells. No other symptoms or modifying factors present at this time. Chief Complaint: General Weakness Time Seen by MD: 06:45 Primary Care Provider: Jhon Garza Notes: Medications, Allergies Allergies: Coded Allergies: NO KNOWN ALLERGIES (Unverified , 12/04/23) Home Meds Active Scripts Hydrocortone (Hydrocortisone 1%) 1 Applic Ap, 1 APPLIC TOP BID, #30 GRAMS Prov:JUAN ROGERS MD 02/08/24 Midodrine Hcl (Midodrine Hcl) 5 Mg Tab, 5 MG PO TID for 30 Days, #90 TAB Prov:YOANDY SALAS NP 01/18/24 Reported Medications Albuterol Sulfate (Albuterol Sulfate Hfa) 108 Mcg/Act Aer, INH 01/30/24 Midodrine HCl (Midodrine Hydrochloride) 5 Mg Tab, 1 TAB PO TID 01/30/24 Risperidone (Risperidone) 2 Mg Tab, 2 MG PO BID, TAB 12/05/23 Nicotine (Nicoderm 21MG/24HR) 1 Patch Ph, 1 PATCH TOP DAILY, #28 PATCH 1 Refill 12/05/23 Mirtazapine (Mirtazapine Oral Disintegrating Tablet) 45 Mg Tab, 1 TAB PO QPM, #30 TAB 1 Refill 12/05/23 Melatonin (KP MELATONIN) 3 Mg Tab, 3 MG PO, TAB 12/05/23 Leuprolide Acetate (3 Month) (Lupron Depot) 22.5 Mg Inj, 22.5 MG IM, INJ 12/05/23 Gabapentin (Gabapentin) 600 Mg Tab, 600 MG PO BID, TAB 12/05/23 Folic Acid (Folic Acid) 1 Mg Tab, 1 MG PO DAILY for 30 Days, MG 12/05/23 Fluticasone Furoate (Inhalatio (Arnuity Ellipta) 200 Mcg/Act Inh, 200 MCG IN, I NHALER 12/05/23 Atorvastatin Calcium (ATORVASTATIN CALCIUM) 40 Mg Tab, 1 TAB PO DAILY, #30 TAB 5 Refills 12/05/23 Albuterol Sulfate (VENTOLIN MDI) 90 Mcg Ih, 90 MCG IN, INH 12/05/23 Discontinued Reported Medications Sulfamethoxazole/Trimethoprim (Sulfamethoxazole/Trimetho 200-40 mg/5Ml) 1 Danielle Danielle 01/30/24 Loperamide Hcl (Loperamide Hcl) 2 Mg Cap, 2 MG PO, MG 12/05/23 Clotrimazole (Clotrimazole) 1 % Cre, 1 APPLIC TOP Q12HR for 30 Days, APPLIC 12/05/23 Aspirin (Aspir-Low) 81 Mg Tab, 81 MG PO DAILY for 30 Days, MG 12/05/23 Discontinued Scripts Amoxicillin & Pot Clavulanate (AUGMENTIN TABLET) 875 Mg Tb, 875 MG PO BID for 5 Days, #10 TAB Prov:DESTINEE WONG RESIDENT 02/01/24 Information Source: Patient Mode of Arrival: Ambulatory Severity: Moderate Timing: Days Duration: Intermittent Prehospital treatment: None Past Medical History PAST MEDICAL HISTORY: Anemia, Cancer, COPD, Schizophrenia Family History Family History: Reviewed,noncontributory to illness, Unknown Social History Smoker: Cigarettes Alcohol: Denies ETOH Use Drugs: Denies Drug Use Lives In: Home Constitutional: reports: weakness; denies: chills, diaphoresis, fatigue, fever, malaise, sweats, others EENTM: denies: blurred vision, double vision, ear bleeding, ear discharge, ear drainage, ear pain, ear ringing, eye pain, eye redness, hearing loss, mouth pain, mouth swelling, nasal discharge, nose bleeding, nose congestion, nose mignon n, photophobia, tearing, throat pain, throat swelling, voice changes, others Respiratory: denies: cough, hemoptysis, orthopnea, SOB at rest, shortness of breath, SOB with excertion, stridor, wheezing, others Cardiovascular: reports: dizzy spells, lightheadedness; denies: chest pain, diaphoresis, Dyspnea on exertion, edema, irregular heart beat, left arm pain, palpitations, PND, syncope, others Gastrointestinal: denies: abdomen distended, abdominal pain, blood streaked bowels, constipated, diarrhea, dysphagia, difficulty swallowing, hematemesis, melena, nausea, poor appetite, poor fluid intake, rectal bleeding, rectal pain, vomiting, others Genitourinary: denies: burning, dysuria, flank pain, frequency, hematuria, incontinence, penile discharge, penile sore, pain, testicle pain, testicle swelling, urgency, others Neurological: denies: dizziness, fainting, headache, left sided numbness, left sided weakness, numbness, paresthesia, pre-existing deficit, right sided numbness, right sided weakness, seizure, speech problems, tingling, tremors, weakness, others Musculoskeletal: denies: back pain, gout, joint pain, joint swelling, muscle pain, muscle stiffness, neck pain, others Integumetry: denies: bruises, change in color, change in hair/nails, dryness, laceration, lesions, lumps, rash, wounds, others Allergic/Immunocompromised: denies: Difficulty Healing, Frequent Infections, Hives, Itching, others Hematologic/Lymphatic: denies: anemia, blood clots, easy bleeding, easy bruising, swollen glands, others Endocrine: denies: excessive hunger, excessive sweating, excessive thirst, excessive urination, flushing, intolerance to cold, intolerance to heat, unexplained weight gain, unexplained weight loss, others Psychiatric: denies: anxiety, bipolar disorder, depression, hopeless, panic disorder, schizophrenia, sleepless, suicidal, others All Other Systems: Reviewed and Negative Physical Exam General Appearance: No Apparent Distress, Normal HEENT: Normal ENT Inspection, Pharynx Normal, TMs Normal Neck: Full Range of Motion, Non-Tender, Normal, Normal Inspection Respiratory: Chest Non-Tender, Lungs Clear, No Accessory Muscle Use, No Respiratory Distress, Normal Breath Sounds Cardiovascular: No Edema, No JVD, No Murmur, No Gallop, Normal Peripheral Pulses, Regular Rate/Rhythm Breast Exam: Deferred Gastrointestinal: No Organomegaly, Non Tender, No Pulsatile Mass, Normal Bowel Sounds, Soft Genitalia: Deferred Pelvic: Deferred Rectal: Deferred Extremities: No calf tenderness, Normal capillary refill, Normal inspection, Normal range of motion, Non-tender, No pedal edema Musculoskeletal : Apperance: Normal Neurologic: Alert, business objects consultant II-XII nml as Tested, No Motor Deficits, Normal Affect, Normal Mood, No Sensory Deficits Cerebellar Function: Normal Reflexes: Normal Skin: Dry, Normal Color, Warm Lymphatic: No Adenopathy Was a procedure done? Was a procedure done?: No Differential Dx Considerations may include: Symptomatic anemia, viral syndrome, electrolyte abnormality, acs, cardiac arrythmia X-Ray, Labs, Meds, VS Vital Signs Date Time Temp Pulse Resp B/P (MAP) Pulse Ox O2 Delivery O2 Flow Rate FiO2 02/13/24 07:53 78 02/13/24 06:49 99 02/13/24 06:18 99.0 101 17 97/71 (80) 97 Lab Test 02/13/24 07:54 02/13/24 06:55 Range/Units Troponin I High Sensitivity Pending < 3 L </=54 ng/L White Blood Count 3.0 #L 4.4-10.8 10^3/uL Red Blood Count 3.15 L 4.5-5.90 10^6/uL Hemoglobin 9.0 L 13.5-17.5 g/dL Hematocrit 26.5 L 41.0-53.0 % Mean Corpuscular Volume 84.2 80.0-100.0 fL Mean Corpuscular Hemoglobin 28.5 28.0-32.0 pg Mean Corpuscular Hemoglobin Concent 33.9 32.0-36.0 g/dL Red Cell Distribution Width 15.0 H 11.8-14.3 % Platelet Count 82 #L 140-450 10^3/uL Mean Platelet Volume 9.0 6.9-10.8 fL Neutrophils (%) (Auto) 37.0-80.0 % Lymphocytes (%) (Auto) 10.0-50.0 % Monocytes (%) (Auto) 0.0-12.0 % Eosinophils (%) (Auto) 0.0-7.0 % Basophils (%) (Auto) 0.0-2.0 % Neutrophils # (Auto) 1.6-8.6 10 ^3/uL Lymphocytes # (Auto) 0.4-5.4 10 ^3/uL Monocytes # (Auto) 0-1.3 10 ^3/uL Differential Total Cells Counted 100.0 100 Neutrophils % (Manual) 55 37.0-80.0 Band Neutrophils % (Manual) 0 Lymphocytes % (Manual) 25 10.0-50.0 Monocytes % (Manual) 4 0-12 Eosinophils % (Manual) 16 H 0-7 Basophils % (Manual) 0 0.0-2.0 Metamyelocytes % (manual) 0 Myelocytes % (Manual) 0 Promyelocytes % (Manual) 0 Blast Cells % (Manual) 0 Reactive Lymphocytes 0 Platelet Estimate Decreased Sodium Level 140 136-145 mmol/L Potassium Level 4.2 3.5-5.1 mmol/L Chloride Level 107 98-107 mmol/L Carbon Dioxide Level 25 20-31 mmol/L Anion Gap 8 5-15 Blood Urea Nitrogen 16 9-23 mg/dL Creatinine 0.89 0.700-1.30 mg/dL Glomerular Filtration Rate Calc 95 >90 mL/min BUN/Creatinine Ratio 18.0 10.0-20.0 Serum Glucose 107 H 74-106 mg/dL Calcium Level 10.3 8.7-10.4 mg/dL Time of 1ST Reevaluation: 07:15 Reevaluation 1ST: Unchanged Patient Education/Counseling: Diagnosis, Treatment, Prognosis Family Education/Counseling: No Family Present Departure 1 Departure Time of Disposition: 08:42 (Patient presented with near syncope today and should be admitted. Data: 1. I ordered and reviewed the result of at least 3 labs including a CBC, BMP, and troponin. 2. I independently interpreted the following tests: EKG which shows a sinus arrythmia and a chest x-ray which shows benign chest. Risk:This patient has a high risk of morbidity due to further diagnostic testing or treatment and may suffer from an acute cardiac, neurologic, or infectious disorder. Rationale: Patient should be admitted to the hospital for further management.) Impression: Primary Impression: Near syncope Additional Impression: Weakness Disposition: 09 ADMITTED INPATIENT Admit to: Med Surg Condition: Serious Critical Care Note Critical Care Time?: No Stability Stability form required: No Heart Score Heart Score: Heart Score Response (Comments) Value History Moderate Suspicious 1 EKG Repolarization Disturb 1 Age >65 2 Risk Factors >3 or Hx ASHD 2 Troponin 1-2 x's Normal limit 1 Total 7 I personally scribed for RAYRAY PAPPAS MD ([email or web address]) on 02/13/24 at 07:03. Electronically submitted by Tommy Wallace ([email or web address]). RAYRAY PAPPAS MD Feb 13, 2024 07:03
[2024-02-13 07:14] LABS: Hematocrit 26.5 % (41.0-53.0); Mean Corpuscular Hemoglobin 28.5 pg (28.0-32.0); Mean Corpuscular Hgb Conc. 33.9 g/dL (32.0-36.0); Mean Corpuscular Volume 84.2 fL (80.0-100.0); Platelet Count (auto) 82 10^3/uL (140-450); Red Blood Cells 3.15 10^6/uL (4.5-5.90)
[2024-02-13 07:17] LABS: Band Neutrophils % (manual) 0; Basophils % (manual) 0 (0.0-2.0); Blast Cells 0; Metamyelocytes % 0; Myelocytes % 0; Promyelocytes % 0; Reactive Lymphocytes 0
[2024-02-13 07:24] LABS: Chloride 107 mmol/L (98-107); Potassium 4.2 mmol/L (3.5-5.1); Sodium 140 mmol/L (136-145)
[2024-02-13 07:25] LABS: Anion Gap 8 (5-15); Calcium 10.3 mg/dL (8.7-10.4); Carbon Dioxide 25 mmol/L (20-31)
[2024-02-13 07:30] LABS: Blood Urea Nitrogen 16 mg/dL (9-23); Glucose 107 mg/dL (74-106)
--- NOTE | 2024-02-13 07:34 | DVH ---
CLINICAL INFORMATION: 68 years old, Male; syncope. TECHNIQUE: Single AP portable chest radiograph was obtained. COMPARISON: XY CHEST PORTABLE on DOS: 12/04/23 FINDINGS: Lungs: Clear. Cardiac: Heart size is within normal limits. Pulmonary vasculature: Unremarkable. Mediastinum/zoila: Dense atherosclerotic calcification of the aortic arch. Bones: No acute osseous abnormality identified. Other: No other significant findings. IMPRESSION: No evidence of acute disease in the chest.
[2024-02-13 08:08] LABS: Eosinophils % (manual) 16 (0-7); Lymphocytes % (manual) 25 (10.0-50.0); Monocytes % (manual) 4 (0-12)
[2024-02-13 08:09] LABS: Platelet Estimate Decreased
[2024-02-13 08:50] VITALS: BP 122/72; PULSE 100; RESP 17; TEMP 98.3; O2SAT 98
--- NOTE | 2024-02-13 09:33 | DVHHP2 ---
History of Present Illness History of Present Illness Past Medical History Prostate CA Review of Systems Allergies: Coded Allergies: NO KNOWN ALLERGIES (Unverified , 12/04/23) Exam Vital Signs Vital Signs Date Time Temp Pulse Resp B/P (MAP) Pulse Ox O2 Delivery O2 Flow Rate FiO2 02/13/24 07:53 78 02/13/24 06:18 99.0 17 97/71 (80) 97 Labs/Xrays Labs Test 02/13/24 07:54 02/13/24 06:55 Range/Units Troponin I High Sensitivity < 3 L </=54 ng/L White Blood Count 3.0 #L 4.4-10.8 10^3/uL Red Blood Count 3.15 L 4.5-5.90 10^6/uL Hemoglobin 9.0 L 13.5-17.5 g/dL Hematocrit 26.5 L 41.0-53.0 % Mean Corpuscular Volume 84.2 80.0-100.0 fL Mean Corpuscular Hemoglobin 28.5 28.0-32.0 pg Mean Corpuscular Hemoglobin Concent 33.9 32.0-36.0 g/dL Red Cell Distribution Width 15.0 H 11.8-14.3 % Platelet Count 82 #L 140-450 10^3/uL Mean Platelet Volume 9.0 6.9-10.8 fL Neutrophils (%) (Auto) 37.0-80.0 % Lymphocytes (%) (Auto) 10.0-50.0 % Monocytes (%) (Auto) 0.0-12.0 % Eosinophils (%) (Auto) 0.0-7.0 % Basophils (%) (Auto) 0.0-2.0 % Neutrophils # (Auto) 1.6-8.6 10 ^3/uL Lymphocytes # (Auto) 0.4-5.4 10 ^3/uL Monocytes # (Auto) 0-1.3 10 ^3/uL Differential Total Cells Counted 100.0 100 Neutrophils % (Manual) 55 37.0-80.0 Band Neutrophils % (Manual) 0 Lymphocytes % (Manual) 25 10.0-50.0 Monocytes % (Manual) 4 0-12 Eosinophils % (Manual) 16 H 0-7 Basophils % (Manual) 0 0.0-2.0 Metamyelocytes % (manual) 0 Myelocytes % (Manual) 0 Promyelocytes % (Manual) 0 Blast Cells % (Manual) 0 Reactive Lymphocytes 0 Platelet Estimate Decreased Sodium Level 140 136-145 mmol/L Potassium Level 4.2 3.5-5.1 mmol/L Chloride Level 107 98-107 mmol/L Carbon Dioxide Level 25 20-31 mmol/L Anion Gap 8 5-15 Blood Urea Nitrogen 16 9-23 mg/dL Creatinine 0.89 0.700-1.30 mg/dL Glomerular Filtration Rate Calc 95 >90 mL/min BUN/Creatinine Ratio 18.0 10.0-20.0 Serum Glucose 107 H 74-106 mg/dL Calcium Level 10.3 8.7-10.4 mg/dL Assessment/Plan Plan discussed with: Patient Date of Service: Feb 13, 2024 Billing Provider: LUCIO DAVILA Common Visit Codes: [id number] INP/OBS CARE (MOD) LUCIO DAVILA Feb 13, 2024 09:33
--- NOTE | 2024-02-13 18:29 | ECG ---
[facility] Test Date: 2024-02-13 Test Time: 07:53:43 Pat Name: MEME ALONSO Department: ER Room: Gender: M Tap Grinder: KELSY : 1955 Requested By: RAYRAY PAPPAS Order Number: [id number] Reading MD: Davide Villa Measurements Intervals [place] Rate: 78 P: 63 NE: 143 QRS: 75 QRSD: 102 T: 74 QT: 392 QTc: 447 Interpretive Statements Sinus rhythm Minimal ST elevation, inferior leads Electronically Signed On 02-14-2024 14:15:33 PST by Davide Villa Please click the below link to view image of tracing.
== END 2024-02-13 09:37 | disposition home or self-care (01) ==
LOC: ER 06:18
DX: R55 Syncope and collapse (principal); R53.1 Weakness; J44.9 Chronic obstructive pulmonary disease, unspecified; F20.9 Schizophrenia, unspecified; F17.210 Nicotine dependence, cigarettes, uncomplicated; Z79.899 Other long term (current) drug therapy; Z79.84 Long term (current) use of oral hypoglycemic drugs
CPT/HCPCS: 36415; 71045; 80048; 84484; 85007; 85027; 86850; 86900; 86901; 93005

== ENCOUNTER 2024-02-20 07:09 | Inpatient (IN) | payer MEDICARE, MEDICAID ==
[2024-02-20] VITALS (11 sets, daily range): BP systolic 99–132; BP diastolic 60–75; PULSE 64–87; RESP 13–18; TEMP 98–98.4; O2SAT 95–98
[~2024-02-20] VITALS: Ht 180.3 cm; Wt 87.5 kg
--- NOTE | 2024-02-20 07:25 | ED.PDOC ---
History of Present Illness HPI Comments 68Y M with PMHX of anemia presents to the ED with CC of dizziness. Pt reports that he visits [facility] every week for routine blood transfusions, and that as of earlier today he has been experiencing dizziness, lightheadedness, and chest pressure. Pt denies any fever, cough, chest pain, and N/V/D. Time Seen by MD: 07:10 Primary Care Provider: Jhon Reviewed Notes: Nurses Notes, Medications, Allergies Allergies: Coded Allergies: NO KNOWN ALLERGIES (Unverified , 12/04/23) Home Meds Active Scripts Hydrocortone (Hydrocortisone 1%) 1 Applic Ap, 1 APPLIC TOP BID, #30 GRAMS Prov:JUAN ROGERS MD 02/08/24 Midodrine Hcl (Midodrine Hcl) 5 Mg Tab, 5 MG PO TID for 30 Days, #90 TAB Prov:YOANDY SALAS NP 01/18/24 Reported Medications Albuterol Sulfate (Albuterol Sulfate Hfa) 108 Mcg/Act Aer, INH 01/30/24 Midodrine HCl (Midodrine Hydrochloride) 5 Mg Tab, 1 TAB PO TID 01/30/24 Risperidone (Risperidone) 2 Mg Tab, 2 MG PO BID, TAB 12/05/23 Nicotine (Nicoderm 21MG/24HR) 1 Patch Ph, 1 PATCH TOP DAILY, #28 PATCH 1 Refill 12/05/23 Mirtazapine (Mirtazapine Oral Disintegrating Tablet) 45 Mg Tab, 1 TAB PO QPM, #30 TAB 1 Refill 12/05/23 Melatonin (KP MELATONIN) 3 Mg Tab, 3 MG PO, TAB 12/05/23 Leuprolide Acetate (3 Month) (Lupron Depot) 22.5 Mg Inj, 22.5 MG IM, INJ 12/05/23 Gabapentin (Gabapentin) 600 Mg Tab, 600 MG PO BID, TAB 12/05/23 Folic Acid (Folic Acid) 1 Mg Tab, 1 MG PO DAILY for 30 Days, MG 12/05/23 Fluticasone Furoate (Inhalatio (Arnuity Ellipta) 200 Mcg/Act Inh, 200 MCG IN, INHALER 12/05/23 Atorvastatin Calcium (ATORVASTATIN CALCIUM) 40 Mg Tab, 1 TAB PO DAILY, #30 TAB 5 Refills 12/05/23 Albuterol Sulfate (VENTOLIN MDI) 90 Mcg Ih, 90 MCG IN, INH 12/05/23 Information Source: Patient Mode of Arrival: Ambulatory Severity: Moderate Timing: Hours Duration: Since onset Past Medical History PAST MEDICAL HISTORY: Anemia, Cancer, COPD, Schizophrenia Surgical History: Unknown Family History Family History: Reviewed,noncontributory to illness, Unknown Social History Smoker: Cigarettes Alcohol: Denies ETOH Use Drugs: Denies Drug Use Lives In: Home Constitutional: denies: chills, diaphoresis, fatigue, fever, malaise, sweats, weakness, others EENTM: denies: blurred vision, double vision, ear bleeding, ear discharge, ear drainage, ear pain, ear ringing, eye pain, eye redness, hearing loss, mouth pain, mouth swelling, nasal discharge, nose bleeding, nose congestion, nose pain, photophobia, tearing, throat pain, throat swelling, voice changes, others Respiratory: denies: cough, hemoptysis, orthopnea, SOB at rest, shortness of breath, SOB with excertion, stridor, wheezing, others Cardiovascular: reports: lightheadedness, others (chx pressure); denies: chest pain, dizzy spells, diaphoresis, Dyspnea on exertion, edema, irregular heart beat, left arm pain, palpitations, PND, syncope Gastrointestinal: denies: abdomen distended, abdominal pain, blood streaked bowels, constipated, diarrhea, dysphagia, difficulty swallowing, hematemesis, melena, nausea, poor appetite, poor fluid intake, rectal bleeding, rectal pain, vomiting, others Genitourinary: denies: burning, dysuria, flank pain, frequency, hematuria, incontinence, penile discharge, penile sore, pain, testicle pain, testicle swelling, urgency, others Neurological: reports: dizziness; denies: fainting, headache, left sided numbness, left sided weakness, numbness, paresthesia, pre-existing deficit, right sided numbness, right sided weakness, seizure, speech problems, tingling, tremors, weakness Musculoskeletal: denies: back pain, gout, joint pain, joint swelling, muscle pain, muscle stiffness, neck pain, others Integumetry: denies: bruises, change in color, change in hair/nails, dryness, laceration, lesions, lumps, rash, wounds, others Allergic/Immunocompromised: denies: Difficulty Healing, Frequent Infections, Hives, Itching, others Hematologic/Lymphatic: denies: anemia, blood clots, easy bleeding, easy bruising, swollen glands, others Endocrine: denies: excessive hunger, excessive sweating, excessive thirst, excessive urination, flushing, intolerance to cold, intolerance to heat, unexplained weight gain, unexplained weight loss, others Psychiatric: denies: anxiety, bipolar disorder, depression, hopeless, panic disorder, schizophrenia, sleepless, suicidal, others All Other Systems: Reviewed and Negative Physical Exam General Appearance: No Apparent Distress, Normal HEENT: Normal ENT Inspection, Pharynx Normal, TMs Normal Neck: Full Range of Motion, Non-Tender, Normal, Normal Inspection Respiratory: Chest Non-Tender, Lungs Clear, No Accessory Muscle Use, No Respiratory Distress, Normal Breath Sounds Cardiovascular: No Edema, No JVD, No Murmur, No Gallop, Normal Peripheral Pulses, Regular Rate/Rhythm Breast Exam: Deferred Gastrointestinal: No Organomegaly, Non Tender, No Pulsatile Mass, Normal Bowel Sounds, Soft Genitalia: Deferred Pelvic: Deferred Rectal: Deferred Extremities: No calf tenderness, Normal capillary refill, Normal inspection, Normal range of motion, Non-tender, No pedal edema Musculoskeletal : Apperance: Normal Neurologic: Alert, induction brazer II-XII nml as Tested, No Motor Deficits, Normal Affect, Normal Mood, No Sensory Deficits Cerebellar Function: Normal Reflexes: Normal Skin: Dry, Normal Color, Warm Lymphatic: No Adenopathy Was a procedure done? Was a procedure done?: No Differential Dx Considerations may include: mds, anemia, blood loss, hemolytic anemia X-Ray, Labs, Meds, VS Vital Signs Date Time Temp Pulse Resp B/P (MAP) Pulse Ox O2 Delivery O2 Flow Rate FiO2 02/20/24 08:55 77 17 98 Room Air* 0 21 02/20/24 08:55 98.5 77 17 104/62 (76) 98 98.5 02/20/24 08:40 98.2 86 18 105/65 (78) 99 98.2 02/20/24 07:24 98.0 92 16 113/55 (74) 98 Lab Test 02/20/24 08:22 02/20/24 07:20 Range/Units Troponin I High Sensitivity < 3 L < 3 L </=54 ng/L White Blood Count 3.7 L 4.4-10.8 10^3/uL Red Blood Count 2.31 L 4.5-5.90 10^6/uL Hemoglobin 6.6 *L 13.5-17.5 g/dL Hematocrit 19.4 L 41.0-53.0 % Mean Corpuscular Volume 84.1 80.0-100.0 fL Mean Corpuscular Hemoglobin 28.7 28.0-32.0 pg Mean Corpuscular Hemoglobin Concent 34.1 32.0-36.0 g/dL Red Cell Distribution Width 14.9 H 11.8-14.3 % Platelet Count 74 L 140-450 10^3/uL Mean Platelet Volume 9.1 6.9-10.8 fL Neutrophils (%) (Auto) 37.0-80.0 % Lymphocytes (%) (Auto) 10.0-50.0 % Monocytes (%) (Auto) 0.0-12.0 % Eosinophils (%) (Auto) 0.0-7.0 % Basophils (%) (Auto) 0.0-2.0 % Neutrophils # (Auto) 1.6-8.6 10 ^3/uL Lymphocytes # (Auto) 0.4-5.4 10 ^3/uL Monocytes # (Auto) 0-1.3 10 ^3/uL Differential Total Cells Counted 100.0 100 Neutrophils % (Manual) 46 37.0-80.0 Band Neutrophils % (Manual) 0 Lymphocytes % (Manual) 32 10.0-50.0 Monocytes % (Manual) 8 0-12 Eosinophils % (Manual) 14 H 0-7 Basophils % (Manual) 0 0.0-2.0 Metamyelocytes % (manual) 0 Myelocytes % (Manual) 0 Promyelocytes % (Manual) 0 Blast Cells % (Manual) 0 Reactive Lymphocytes 0 Platelet Estimate Decreased Sodium Level 142 136-145 mmol/L Potassium Level 3.8 3.5-5.1 mmol/L Chloride Level 109 H 98-107 mmol/L Carbon Dioxide Level 26 20-31 mmol/L Anion Gap 7 5-15 Blood Urea Nitrogen 16 9-23 mg/dL Creatinine 0.83 0.700-1.30 mg/dL Glomerular Filtration Rate Calc 97 >90 mL/min BUN/Creatinine Ratio 19.3 10.0-20.0 Serum Glucose 108 H 74-106 mg/dL Calcium Level 9.4 8.7-10.4 mg/dL Current Medications Medications (Trade) Dose Ordered Sig/Fabricio Route Start Time Stop Time Status Last Admin Sodium Chloride 1,000 ml @ 1,000 mls/hr Q1H ONCE IV 02/20/24 08:15 02/20/24 09:14 DC 02/20/24 10:07 CXR: FINDINGS: Lines and Tubes: None Lungs: Bilateral lower lobe airspace disease. Pleura: No effusion. No pneumothorax. Cardiomediastinal contours: Unremarkable Bones: Unremarkable IMPRESSION: Bilateral lower lobe airspace disease. X-Ray, Labs, Meds, VS Comment pt is anemic with cp and dizziness. Therefore, in addition to transfusion, I rec admission to the hospital for further care. 1 U PRBC transfusion orders placed. Images Reviewed?: Images reviewed and evaluated by me Time of 1ST Reevaluation: 08:10 Reevaluation 1ST: Unchanged Patient Education/Counseling: Diagnosis, Treatment Family Education/Counseling: No Family Present Departure 1 Departure Time of Disposition: 11:17 Impression: Primary Impression: Anemia Additional Impressions: Weakness Dizziness Disposition: ADMITTED INPATIENT Admit to: Tele Condition: Guarded Critical Care Note Critical Care Time?: No Stability Stability form required: No Heart Score Heart Score: Heart Score Response (Comments) Value History N/A 0 EKG N/A 0 Age N/A 0 Risk Factors N/A 0 Troponin N/A 0 Total 0 I personally scribed for MORENO VAZQUEZ MD ([email or web address]) on 02/20/24 at 07:25. Electronically submitted by Maria Elena Barton ([email or web address]). I personally scribed for MORENO VAZQUEZ MD ([email or web address]) on 02/20/24 at 08:12. Electronically submitted by Maria Elena Barton ([email or web address]). I personally scribed for MORENO VAZQUEZ MD ([email or web address]) on 02/20/24 at 08:43. Electronically submitted by Mason Montano ([email or web address]). MORENO VAZQUEZ MD Feb 20, 2024 07:25
[2024-02-20 07:45] LABS: White Blood Cell 3.7 10^3/uL (4.4-10.8)
[2024-02-20 07:48] LABS: Hematocrit 19.4 % (41.0-53.0); Mean Corpuscular Hemoglobin 28.7 pg (28.0-32.0); Mean Corpuscular Hgb Conc. 34.1 g/dL (32.0-36.0); Mean Corpuscular Volume 84.1 fL (80.0-100.0); Platelet Count (auto) 74 10^3/uL (140-450); Red Blood Cells 2.31 10^6/uL (4.5-5.90); Red Cell Distribution Width 14.9 % (11.8-14.3)
[2024-02-20 07:54] LABS: Hemoglobin 6.6 g/dL (13.5-17.5)
[2024-02-20 07:55] LABS: Band Neutrophils % (manual) 0; Basophils % (manual) 0 (0.0-2.0); Blast Cells 0; Metamyelocytes % 0; Myelocytes % 0; Promyelocytes % 0; Reactive Lymphocytes 0
[2024-02-20 07:56] LABS: Chloride 109 mmol/L (98-107); Potassium 3.8 mmol/L (3.5-5.1); Sodium 142 mmol/L (136-145)
[2024-02-20 07:57] LABS: Anion Gap 7 (5-15); Carbon Dioxide 26 mmol/L (20-31)
[2024-02-20 07:58] LABS: Calcium 9.4 mg/dL (8.7-10.4)
[2024-02-20 08:02] LABS: Glucose 108 mg/dL (74-106)
[2024-02-20 08:03] LABS: BUN/Creatinine Ratio 19.3 (10.0-20.0); Blood Urea Nitrogen 16 mg/dL (9-23)
--- NOTE | 2024-02-20 08:05 | DVH ---
CHEST RADIOGRAPH Indication: sob Technique: Single frontal view of the chest was obtained COMPARISON: XY CHEST PORTABLE on DOS: 02/13/24, XY CHEST PORTABLE on DOS: 12/04/23 FINDINGS: Lines and Tubes: None Lungs: Bilateral lower lobe airspace disease. Pleura: No effusion. No pneumothorax. Cardiomediastinal contours: Unremarkable Bones: Unremarkable IMPRESSION: Bilateral lower lobe airspace disease.
[2024-02-20 08:36] LABS: Eosinophils % (manual) 14 (0-7); Lymphocytes % (manual) 32 (10.0-50.0); Monocytes % (manual) 8 (0-12); Platelet Estimate Decreased
--- NOTE | 2024-02-20 09:50 | DVHHP2 ---
History of Present Illness Reason for Visit: Dizziness and weakness History of Present Illness Eugene Alejandro JR is a 68-year-old male with a past medical history of anemia, cancer, COPD, and schizophrenia who presents to the ED for weakness and dizziness. Patient reports that he thinks he needs a blood transfusion and he gets multiple transfusions weekly. Patient denies chest pain, SOB, headache, fever, and chills Pulmonary: COPD Heme/Onc: Anemia NOS Psych: Schizophrenia Past Medical History Anemia due to myelodysplastic syndrome Past Surgical History: None Family History: None Smoke: <1 pack per day ALCOHOL: none Drugs: None Lives: with Family Domestic Violence: Neg Review of Systems Constitutional: No: Fever, Chills, Sweats, Weakness, Malaise, Other Eyes: No: Pain, Vision change, Conjunctivae inflammation, Eyelid inflammation, Other, Redness ENT: No: Ear pain, Ear discharge, Nose pain, Nose discharge, Nose congestion, Mouth pain, Mouth swelling, Throat pain, Throat swelling, Other Respiratory: No: Cough, Dry, Shortness of breath, SOB with excertion, Wheezing, Hemoptysis, Pleuritic Pain, Sputum, Wheezing, Other Cardiovascular: No: Chest Pain, Palpitations, Orthopnea, Paroxysmal Noc. Dyspnea, Edema, Lt Headedness, Other Gastrointestinal: No: Nausea, Vomiting, Abdominal Pain, Diarrhea, Constipation, Melena, Hematochezia, Other Genitourinary: No Dysuria, No Frequency, No Incontinence, No Hematuria, No Rete ntion, No Other Musculoskeletal: No: other, neck pain, shoulder pain, arm pain, back pain, hand pain, leg pain, foot pain Skin: No: Rash, Lesions, Jaundice, Bruising, Other Neurological: Weakness, Other (dizziness) Allergies: Coded Allergies: NO KNOWN ALLERGIES (Unverified , 12/04/23) Exam Vital Signs Vital Signs Date Time Temp Pulse Resp B/P (MAP) Pulse Ox O2 Delivery O2 Flow Rate FiO2 02/20/24 08:55 77 17 98 Room Air* 0 21 02/20/24 08:55 98.5 104/62 (76) 98.5 General Appearance: Alert, Oriented X3, Cooperative, No acute distress HEENT: PERRLA, EOMI, Mucous membr. moist/pink Respiratory: Clear to auscultation, Normal air movement Cardiovascular: Regular rate, Normal S1, Normal S2, No murmurs Abdominal: Normal bowel sounds, Soft, No tenderness, No hepatospenomegaly, No masses Extremities: No clubbing, No cyanosis, No edema, Normal pulses, No tenderness/swelling Skin: No rashes, No breakdown, No significant lesion Neuro: Normal gait, Normal speech, Strength at 5/5 X4 ext, Normal tone, Sensation intact Psych/Mental Status: Mental status NL, Mood NL Labs/Xrays Labs Test 02/20/24 08:22 02/20/24 07:20 Range/Units Troponin I High Sensitivity < 3 L </=54 ng/L White Blood Count 3.7 L 4.4-10.8 10^3/uL Red Blood Count 2.31 L 4.5-5.90 10^6/uL Hemoglobin 6.6 *L 13.5-17.5 g/dL Hematocrit 19.4 L 41.0-53.0 % Mean Corpuscular Volume 84.1 80.0-100.0 fL Mean Corpuscular Hemoglobin 28.7 28.0-32.0 pg Mean Corpuscular Hemoglobin Concent 34.1 32.0-36.0 g/dL Red Cell Distribution Width 14.9 H 11.8-14.3 % Platelet Count 74 L 140-450 10^3/uL Mean Platelet Volume 9.1 6.9-10.8 fL Neutrophils (%) (Auto) 37.0-80.0 % Lymphocytes (%) (Auto) 10.0-50.0 % Monocytes (%) (Auto) 0.0-12.0 % Eosinophils (%) (Auto) 0.0-7.0 % Basophils (%) (Auto) 0.0-2.0 % Neutrophils # (Auto) 1.6-8.6 10 ^3/uL Lymphocytes # (Auto) 0.4-5.4 10 ^3/uL Monocytes # (Auto) 0-1.3 10 ^3/uL Differential Total Cells Counted 100.0 100 Neutrophils % (Manual) 46 37.0-80.0 Band Neutrophils % (Manual) 0 Lymphocytes % (Manual) 32 10.0-50.0 Monocytes % (Manual) 8 0-12 Eosinophils % (Manual) 14 H 0-7 Basophils % (Manual) 0 0.0-2.0 Metamyelocytes % (manual) 0 Myelocytes % (Manual) 0 Promyelocytes % (Manual) 0 Blast Cells % (Manual) 0 Reactive Lymphocytes 0 Platelet Estimate Decreased Sodium Level 142 136-145 mmol/L Potassium Level 3.8 3.5-5.1 mmol/L Chloride Level 109 H 98-107 mmol/L Carbon Dioxide Level 26 20-31 mmol/L Anion Gap 7 5-15 Blood Urea Nitrogen 16 9-23 mg/dL Creatinine 0.83 0.700-1.30 mg/dL Glomerular Filtration Rate Calc 97 >90 mL/min BUN/Creatinine Ratio 19.3 10.0-20.0 Serum Glucose 108 H 74-106 mg/dL Calcium Level 9.4 8.7-10.4 mg/dL CHEST RADIOGRAPH Indication: sob Technique: Single frontal view of the chest was obtained COMPARISON: XY CHEST PORTABLE on DOS: 02/13/24, XY CHEST PORTABLE on DOS: 12/04/23 FINDINGS: Lines and Tubes: None Lungs: Bilateral lower lobe airspace disease. Pleura: No effusion. No pneumothorax. Cardiomediastinal contours: Unremarkable Bones: Unremarkable IMPRESSION: Bilateral lower lobe airspace disease. Assessment/Plan Assessment/Plan Assessment: Anemia due to myelodysplastic syndrome Thrombocytopenia Hx of multiple blood transfusions Cancer COPD Schizophrenia Plan: Admit to med surg Transfuse blood prn EKG noted Pain management Antiemetics Diet as tolerated Monitor labs Home medications reconciled Plan discussed with: Patient Problem List: (1) MDS (myelodysplastic syndrome) Date of Service: Feb 20, 2024 Billing Provider: LUCIO DAVILA Common Visit Codes: [id number] INP/OBS CARE (MOD) LUCIO DAVILA Feb 20, 2024 09:50
[2024-02-20] MEDS: SODIUM CHLORIDE 0.9% 1,000 ML IV ONE (10:07)
[2024-02-20] MEDS ORDERED: MORPHINE SULFATE INJ 2 MG/ml SYRG IV PRN ×2 (10:30→11:00)
[2024-02-20] MEDS ORDERED: ACETAMINOPHEN 325 MG TAB PO PRN ×2 (10:30→11:00)
[2024-02-20] MEDS ORDERED: ONDANSETRON HCL 4 MG/2 ML VIAL IV PRN (10:30)
[2024-02-20] MEDS ORDERED: DOCUSATE SOD 100 MG CAP PO PRN ×2 (10:30→11:00)
[2024-02-20] MEDS ORDERED: HYDROcodone-ACET 5/325MG TAB PO PRN ×2 (10:30→11:00)
[2024-02-20] MEDS ORDERED: MAALOX PLUS or MAALOX 30 ML PO PRN (11:00)
[2024-02-20] MEDS ORDERED: ALBUTEROL SULF 2.5 MG/0.5ML(0.5%) NEB SOLN NEB PRN (13:30)
[2024-02-20] MEDS ORDERED: ALBUTEROL SULF HFA 90MCG INH 200DOSE IN SCH (14:00)
[2024-02-20] MEDS: MIDODRINE HCL 10 MG TAB PO SCH (14:00)
[2024-02-20] MEDS: MIRTAZAPINE 30 MG TAB PO SCH (18:00)
[2024-02-20 18:53] LABS: Platelet Count (auto) 65 10^3/uL (140-450); White Blood Cell 3.4 10^3/uL (4.4-10.8)
[2024-02-20 18:55] LABS: Hematocrit 20.1 % (41.0-53.0); Mean Corpuscular Hemoglobin 28.4 pg (28.0-32.0); Mean Corpuscular Hgb Conc. 33.3 g/dL (32.0-36.0); Mean Corpuscular Volume 85.1 fL (80.0-100.0); Red Blood Cells 2.36 10^6/uL (4.5-5.90); Red Cell Distribution Width 15.2 % (11.8-14.3)
[2024-02-20 19:08] LABS: Hemoglobin 6.7 g/dL (13.5-17.5)
[2024-02-20 19:09] LABS: Basophils % (manual) 0 (0.0-2.0); Blast Cells 0; Metamyelocytes % 0; Myelocytes % 0; Promyelocytes % 0; Reactive Lymphocytes 0
[2024-02-20 20:24] LABS: Band Neutrophils % (manual) 1; Eosinophils % (manual) 10 (0-7); Lymphocytes % (manual) 36 (10.0-50.0); Monocytes % (manual) 3 (0-12); Platelet Estimate Decreased; RBC Morphology Normal
[2024-02-20 20:30] LABS: Hematocrit 20.3 % (41.0-53.0)
[2024-02-20 20:32] LABS: Hemoglobin 6.8 g/dL (13.5-17.5)
[2024-02-20] MEDS: GABAPENTIN 300 MG CAP PO SCH (22:06)
[2024-02-20] MEDS: risperiDONE 1 MG TAB PO SCH (22:09)
[2024-02-21] VITALS (13 sets, daily range): BP systolic 84–106; BP diastolic 48–69; PULSE 69–81; RESP 16–20; TEMP 97.8–98.4; O2SAT 93–100
[2024-02-21] MEDS: FOLIC ACID 1 MG TAB PO SCH (09:46)
--- NOTE | 2024-02-21 14:58 | DVHPN2 ---
Reviewed: Care Plan, H&P, Labs, Medications, Previous Orders, Radiology Changes from previous H/P or p: No Changes Eyes: No Pain, No Vision change, No Conjunctivae inflammation, No Eyelid inflammation, No Other, No Redness ENT: No Ear pain, No Ear discharge, No Nose pain, No Nose discharge, No Nose congestion, No Mouth pain, No Mouth swelling, No Throat pain, No Throat swelling, No Other Cardiovascular: No Chest Pain, No Palpitations, No Orthopnea, No Paroxysmal Noc. Dyspnea, No Edema, No Lt Headedness, No Other Respiratory: No Cough, No Dry, No Shortness of breath, No SOB with excertion, No Wheezing, No Hemoptysis, No Pleuritic Pain, No Sputum, No Other Gastrointestinal: No Nausea, No Vomiting, No Abdominal Pain, No Diarrhea, No Constipation, No Melena, No Hematochezia, No Other Genitourinary: No Dysuria, No Frequency, No Incontinence, No Hematuria, No Retention, No Other Musculoskeletal: No other, No neck pain, No shoulder pain, No arm pain, No back pain, No hand pain, No leg pain, No foot pain Skin: No Rash, No Lesions, No Jaundice, No Bruising, No Other Objective Vitals Vital Signs Date Time Temp Pulse Resp B/P (MAP) Pulse Ox O2 Delivery O2 Flow Rate FiO2 02/21/24 10:00 93 Room Air* 0 21 02/21/24 09:00 97.8 69 17 106/65 (79) 97.8 Intake/Output Intake and Output 02/21/24 07:00 Intake Total 1600 ml Output Total 0 ml Balance 1600 ml Intake Oral 0 ml IV Total 1000 ml Blood Product 600 ml Other 0 ml Output Urine Total 0 ml Medications Current Medications Medications Dose Ordered Sig/Fabricio Route Start Time Stop Time Status Last Admin Dose Admin Al Hydrox/Mg Hydrox/Simethicone 30 ml Q6HP PRN PO 02/20/24 11:00 Docusate Sodium 100 mg BIDPRN PRN PO 02/20/24 11:00 Acetaminophen 650 mg Q6HP PRN PO 02/20/24 11:00 Acetaminophen/ Hydrocodone Bitart 1 tab Q4HP PRN PO 02/20/24 11:00 Morphine Sulfate 2 mg Q4HPRN PRN IV 02/20/24 11:00 Albuterol 90 mcg Q4HPRN IN 02/20/24 14:00 Cancel Atorvastatin Calcium 40 mg HS PO 02/21/24 22:00 Folic Acid 1 mg DAILY PO 02/21/24 10:00 02/21/24 09:46 1 MG Gabapentin 600 mg BID PO 02/20/24 22:00 02/21/24 09:45 600 MG Midodrine 5 mg TID PO 02/20/24 14:00 02/21/24 14:50 5 MG Mirtazapine 45 mg HS PO 02/20/24 18:00 02/20/24 22:06 45 MG Risperidone 2 mg BID PO 02/20/24 22:00 02/21/24 09:46 2 MG Albuterol 2.5 mg Q4HPRN PRN NEB 02/20/24 13:30 Laboratory Results Laboratory Tests 02/20/24 07:20 02/20/24 18:34 02/20/24 20:04 Labs and/or images reviewed: Labs reviewed by me, Image(s) reviewed by me Assessment/Plan Assessment/Plan Acute Anemia due to myelodysplastic syndrome hemoglobin 6.6: 2 units RBC transfusion given Thrombocytopenia Hx of multiple blood transfusions Cancer COPD Schizophrenia Plan discussed with: Patient Date of Service: Feb 21, 2024 Billing Provider: SHARON LUEVANO MD Common Visit Codes: [id number] INP/OBS CARE(HIGH) SHARON LUEVANO MD Feb 21, 2024 14:58
[2024-02-21] MEDS: ATORVASTATIN 20 MG TAB PO SCH (21:45)
[2024-02-22] VITALS (13 sets, daily range): BP systolic 91–114; BP diastolic 50–81; PULSE 66–90; RESP 16–19; TEMP 97.7–99; O2SAT 93–97
[2024-02-22 07:20] LABS: Hemoglobin 7.5 g/dL (13.5-17.5); Mean Corpuscular Hemoglobin 28.9 pg (28.0-32.0); Mean Corpuscular Hgb Conc. 34.1 g/dL (32.0-36.0); Mean Corpuscular Volume 84.9 fL (80.0-100.0); Platelet Count (auto) 61 10^3/uL (140-450); Red Blood Cells 2.59 10^6/uL (4.5-5.90); Red Cell Distribution Width 15.7 % (11.8-14.3); White Blood Cell 2.9 10^3/uL (4.4-10.8)
[2024-02-22 07:25] LABS: Band Neutrophils % (manual) 0; Basophils % (manual) 0 (0.0-2.0); Blast Cells 0; Metamyelocytes % 0; Myelocytes % 0; Promyelocytes % 0; Reactive Lymphocytes 0
[2024-02-22 08:02] LABS: Eosinophils % (manual) 24 (0-7); Lymphocytes % (manual) 23 (10.0-50.0); Monocytes % (manual) 4 (0-12); Platelet Estimate Decreased
--- NOTE | 2024-02-22 12:06 | DVHPN2 ---
Reviewed: Care Plan, H&P, Labs, Medications, Previous Orders, Radiology Changes from previous H/P or p: No Changes Eyes: No Pain, No Vision change, No Conjunctivae inflammation, No Eyelid inflammation, No Other, No Redness ENT: No Ear pain, No Ear discharge, No Nose pain, No Nose discharge, No Nose congestion, No Mouth pain, No Mouth swelling, No Throat pain, No Throat swelling, No Other Cardiovascular: No Chest Pain, No Palpitations, No Orthopnea, No Paroxysmal Noc. Dyspnea, No Edema, No Lt Headedness, No Other Respiratory: No Cough, No Dry, No Shortness of breath, No SOB with excertion, No Wheezing, No Hemoptysis, No Pleuritic Pain, No Sputum, No Other Gastrointestinal: No Nausea, No Vomiting, No Abdominal Pain, No Diarrhea, No Constipation, No Melena, No Hematochezia, No Other Genitourinary: No Dysuria, No Frequency, No Incontinence, No Hematuria, No Retention, No Other Musculoskeletal: No other, No neck pain, No shoulder pain, No arm pain, No back pain, No hand pain, No leg pain, No foot pain Skin: No Rash, No Lesions, No Jaundice, No Bruising, No Other Objective Vitals Vital Signs Date Time Temp Pulse Resp B/P (MAP) Pulse Ox O2 Delivery O2 Flow Rate FiO2 02/22/24 10:20 96 Room Air 0.0 02/22/24 10:20 21 02/22/24 09:01 98.1 66 17 100/61 (74) 98.1 Intake/Output Intake and Output 02/22/24 07:00 Intake Total 1700 ml Output Total 600 ml Balance 1100 ml Intake Oral 1700 ml Output Urine Total 600 ml # Voids 3 Medications Current Medications Medications Dose Ordered Sig/Fabricio Route Start Time Stop Time Status Last Admin Dose Admin Al Hydrox/Mg Hydrox/Simethicone 30 ml Q6HP PRN PO 02/20/24 11:00 Docusate Sodium 100 mg BIDPRN PRN PO 02/20/24 11:00 Acetaminophen 650 mg Q6HP PRN PO 02/20/24 11:00 Acetaminophen/ Hydrocodone Bitart 1 tab Q4HP PRN PO 02/20/24 11:00 Morphine Sulfate 2 mg Q4HPRN PRN IV 02/20/24 11:00 Albuterol 90 mcg Q4HPRN IN 02/20/24 14:00 Cancel Atorvastatin Calcium 40 mg HS PO 02/21/24 22:00 02/21/24 21:45 40 MG Folic Acid 1 mg DAILY PO 02/21/24 10:00 02/22/24 09:25 1 MG Gabapentin 600 mg BID PO 02/20/24 22:00 02/22/24 09:24 600 MG Midodrine 5 mg TID PO 02/20/24 14:00 02/22/24 06:15 5 MG Mirtazapine 45 mg HS PO 02/20/24 18:00 02/21/24 21:45 45 MG Risperidone 2 mg BID PO 02/20/24 22:00 02/22/24 09:25 2 MG Albuterol 2.5 mg Q4HPRN PRN NEB 02/20/24 13:30 Laboratory Results Laboratory Tests 02/20/24 07:20 02/22/24 05:54 Labs and/or images reviewed: Labs reviewed by me, Image(s) reviewed by me Assessment/Plan Assessment/Plan Acute Anemia due to myelodysplastic syndrome hemoglobin 6.6: 2 units RBC transfusion given improved to 7.5 patient requesting one more unit of RBC transfusion which will be given today Thrombocytopenia Hx of multiple blood transfusions Cancer COPD Schizophrenia Plan discussed with: Patient Date of Service: Feb 22, 2024 Billing Provider: SHARON LUEVANO MD Common Visit Codes: [id number] INP/OBS CARE(HIGH) SHARON LUEVANO MD Feb 22, 2024 12:06
[2024-02-23 01:00] VITALS: BP 97/61; PULSE 70; RESP 14; TEMP 98; O2SAT 94
[2024-02-23 05:00] VITALS: BP 98/53; PULSE 74; RESP 16; TEMP 97.8; O2SAT 93
[2024-02-23 07:18] LABS: Hematocrit 24.9 % (41.0-53.0); Hemoglobin 8.4 g/dL (13.5-17.5); Mean Corpuscular Hgb Conc. 33.6 g/dL (32.0-36.0); Mean Corpuscular Volume 86.1 fL (80.0-100.0); Platelet Count (auto) 57 10^3/uL (140-450); Red Cell Distribution Width 15.2 % (11.8-14.3); White Blood Cell 3.2 10^3/uL (4.4-10.8)
[2024-02-23 07:28] LABS: Band Neutrophils % (manual) 0; Basophils % (manual) 0 (0.0-2.0); Blast Cells 0; Metamyelocytes % 0; Myelocytes % 0; Promyelocytes % 0; Reactive Lymphocytes 0
[2024-02-23 08:18] LABS: Eosinophils % (manual) 34 (0-7); Lymphocytes % (manual) 34 (10.0-50.0); Monocytes % (manual) 7 (0-12)
[2024-02-23 08:19] LABS: Large Platelets FEW; Platelet Estimate Decreased
[2024-02-23 08:45] VITALS: O2SAT 94
[2024-02-23 08:56] VITALS: BP_SYST 132; PULSE 61; RESP 18; TEMP 98.8; O2SAT 98
[2024-02-23 08:58] VITALS: BP 132/59; PULSE 61; RESP 18; TEMP 98; O2SAT 98
--- NOTE | 2024-02-23 10:56 | DVHPN2 ---
Reviewed: Care Plan, H&P, Labs, Medications, Previous Orders, Radiology Changes from previous H/P or p: No Changes Eyes: No Pain, No Vision change, No Conjunctivae inflammation, No Eyelid inflammation, No Other, No Redness ENT: No Ear pain, No Ear discharge, No Nose pain, No Nose discharge, No Nose congestion, No Mouth pain, No Mouth swelling, No Throat pain, No Throat swelling, No Other Cardiovascular: No Chest Pain, No Palpitations, No Orthopnea, No Paroxysmal Noc. Dyspnea, No Edema, No Lt Headedness, No Other Respiratory: No Cough, No Dry, No Shortness of breath, No SOB with excertion, No Wheezing, No Hemoptysis, No Pleuritic Pain, No Sputum, No Other Gastrointestinal: No Nausea, No Vomiting, No Abdominal Pain, No Diarrhea, No Constipation, No Melena, No Hematochezia, No Other Genitourinary: No Dysuria, No Frequency, No Incontinence, No Hematuria, No Retention, No Other Musculoskeletal: No other, No neck pain, No shoulder pain, No arm pain, No back pain, No hand pain, No leg pain, No foot pain Skin: No Rash, No Lesions, No Jaundice, No Bruising, No Other Objective Vitals Vital Signs Date Time Temp Pulse Resp B/P (MAP) Pulse Ox O2 Delivery O2 Flow Rate FiO2 02/23/24 08:58 98.0 61 18 132/59 (83) 98 98.0 02/23/24 08:45 Room Air* 0 21 Intake/Output Intake and Output 02/23/24 07:00 Intake Total 650 ml Output Total 600 ml Balance 50 ml Intake Oral 350 ml Blood Product 300 ml Output Urine Total 600 ml Medications Current Medications Medications Dose Ordered Sig/Fabricio Route Start Time Stop Time Status Last Admin Dose Admin Al Hydrox/Mg Hydrox/Simethicone 30 ml Q6HP PRN PO 02/20/24 11:00 Docusate Sodium 100 mg BIDPRN PRN PO 02/20/24 11:00 Acetaminophen 650 mg Q6HP PRN PO 02/20/24 11:00 Acetaminophen/ Hydrocodone Bitart 1 tab Q4HP PRN PO 02/20/24 11:00 Morphine Sulfate 2 mg Q4HPRN PRN IV 02/20/24 11:00 Albuterol 90 mcg Q4HPRN IN 02/20/24 14:00 Cancel Atorvastatin Calcium 40 mg HS PO 02/21/24 22:00 02/22/24 21:21 40 MG Folic Acid 1 mg DAILY PO 02/21/24 10:00 02/23/24 09:13 1 MG Gabapentin 600 mg BID PO 02/20/24 22:00 02/23/24 09:12 600 MG Midodrine 5 mg TID PO 02/20/24 14:00 02/23/24 06:19 5 MG Mirtazapine 45 mg HS PO 02/20/24 18:00 02/22/24 21:21 45 MG Risperidone 2 mg BID PO 02/20/24 22:00 02/23/24 09:12 2 MG Albuterol 2.5 mg Q4HPRN PRN NEB 02/20/24 13:30 Laboratory Results Laboratory Tests 02/20/24 07:20 02/23/24 06:27 Labs and/or images reviewed: Labs reviewed by me, Image(s) reviewed by me Assessment/Plan Assessment/Plan Acute Anemia due to myelodysplastic syndrome hemoglobin 6.6: 3 units RBC transfusion given improved to 8.4 transfusion which will be given today Thrombocytopenia Hx of multiple blood transfusions Cancer COPD Schizophrenia Patient feels better and wants to discharged home. Plan discussed with: Patient My Orders Orders - SHARON LUEVANO MD Procedure Category Date Status Time Obtain Consent For: ORDERS 02/22/24 Transmitted 12:07 Vital Signs KATIA 02/22/24 In Process 12:07 Administer Blood [facility] 02/22/24 In Process Products 12:07 Obtain Consent For KATIA 02/22/24 In Process Anesthesia 12:07 Date of Service: Feb 23, 2024 Billing Provider: SHARON LUEVANO MD Common Visit Codes: [id number] INP/OBS CARE(HIGH) SHARON LUEVANO MD Feb 23, 2024 10:56
[2024-02-23] MEDS ORDERED: HYDR-4798 PO (10:57)
--- NOTE | 2024-02-23 11:02 | DVHDS2 ---
Discharge Summary Date of Admission Feb 20, 2024 at 10:47 Date of Discharge: Feb 23, 2024 Admitting Diagnosis Generalized weakness Wounds: None Labs/Diagnostic Data: Laboratory Results Test 02/23/24 06:27 02/20/24 18:34 02/20/24 08:22 02/20/24 07:20 White Blood Count 3.2 10^3/uL (4.4-10.8) Red Blood Count 2.90 10^6/uL (4.5-5.90) Hemoglobin 8.4 g/dL (13.5-17.5) Hematocrit 24.9 % (41.0-53.0) Mean Corpuscular Volume 86.1 fL (80.0-100.0) Mean Corpuscular Hemoglobin 29.0 pg (28.0-32.0) Mean Corpuscular Hemoglobin Concent 33.6 g/dL (32.0-36.0) Red Cell Distribution Width 15.2 % (11.8-14.3) Platelet Count 57 10^3/uL (140-450) Mean Platelet Volume 9.4 fL (6.9-10.8) Neutrophils (%) (Auto) % (37.0-80.0) Lymphocytes (%) (Auto) % (10.0-50.0) Monocytes (%) (Auto) % (0.0-12.0) Eosinophils (%) (Auto) % (0.0-7.0) Basophils (%) (Auto) % (0.0-2.0) Neutrophils # (Auto) 10 ^3/uL (1.6-8.6) Lymphocytes # (Auto) 10 ^3/uL (0.4-5.4) Monocytes # (Auto) 10 ^3/uL (0-1.3) Differential Total Cells Counted 100.0 (100) Neutrophils % (Manual) 25 (37.0-80.0) Band Neutrophils % (Manual) 0 Lymphocytes % (Manual) 34 (10.0-50.0) Monocytes % (Manual) 7 (0-12) Eosinophils % (Manual) 34 (0-7) Basophils % (Manual) 0 (0.0-2.0) Metamyelocytes % (manual) 0 Myelocytes % (Manual) 0 Promyelocytes % (Manual) 0 Blast Cells % (Manual) 0 Reactive Lymphocytes 0 Platelet Estimate Decreased Large Platelets Few Red Blood Cell Morphology Normal Troponin I High Sensitivity < 3 ng/L (</=54) Sodium Level 142 mmol/L (136-145) Potassium Level 3.8 mmol/L (3.5-5.1) Chloride Level 109 mmol/L (98-107) Carbon Dioxide Level 26 mmol/L (20-31) Anion Gap 7 (5-15) Blood Urea Nitrogen 16 mg/dL (9-23) Creatinine 0.83 mg/dL (0.700-1.30) Glomerular Filtration Rate Calc 97 mL/min (>90) BUN/Creatinine Ratio 19.3 (10.0-20.0) Serum Glucose 108 mg/dL (74-106) Calcium Level 9.4 mg/dL (8.7-10.4) Other Laboratory Tests 02/23/24 06:27 02/20/24 07:20 Brief Hx & Hospital Course: 58-year-old male with a history of myelodysplastic syndrome had chemotherapy at [facility] with a history of multiple blood transfusions came in for generalized weakness. 6.6 improved to 8.4 after 3 units RBC transfusion and the patient feels better history of prostate cancer COPD schizophrenia on thrombocytopenia patient being discharged home. Prescription for [place] transmitted to the pharmacy. He will follow up with his PCP Dr. Bosch. Consults/Reason for consult None Operations or Procedures 3 Units RBC transfusion Condition at Discharge: Fair Final Diagnosis/Problems List Acute Anemia due to myelodysplastic syndrome hemoglobin 6.6: 3 units RBC transfusion given improved to 8.4 transfusion which will be given today Thrombocytopenia Hx of multiple blood transfusions Cancer COPD Schizophrenia Discharge Disposition: Home Discharge Instruct/Medications Diet: Regular Activity: Light activity Follow Up/Referral: Follow up with your PCP Dr. Bosch Medications: [place] Transmitted to [facility] 36 (Time taken for discharge summary 36 minutes) Discharge Statement: "Patient was advised to return to the ER or call 911 if any headaches, dizziness, shortness of breath, chest pain, abdominal pain, bleeding, fevers, or worsening of medical condition. Patient was counseled about treatment plan, medications, possible side effects, patientverbalized understanding. All questions were answered to the best of my ability. This discharge took greater then 30 minutes in planning, reviewing documentation, counseling the patient, and discussing with other team members." ASSESSMENT ASSESSMENT Hospital Course Improved Assessment Acute Anemia due to myelodysplastic syndrome hemoglobin 6.6: 3 units RBC transfusion given improved to 8.4 transfusion which will be given today Thrombocytopenia Hx of multiple blood transfusions Cancer COPD Schizophrenia Date of Service: Feb 23, 2024 Billing Provider: SHARON LUEVANO MD Common Visit Codes: [id number] DISCH DAY >30min SHARON LUEVANO MD Feb 23, 2024 11:02
[2024-02-23 12:32] VITALS: BP 130/56; PULSE 60; RESP 16; O2SAT 95
== END 2024-02-23 12:50 | disposition home or self-care (01) | DRG 694 ==
LOC: ER 07:09 → OVERFLOW 10:47 → WEST WING 23:49
PROVIDERS: ATTEND Family Medicine
PROC: 30233N1 Transfusion of Nonautologous Red Blood Cells into Peripheral Vein, Percutaneous Approach (ICD-10-PCS; principal; 2024-02-20)
DX: D46.9 Myelodysplastic syndrome, unspecified (principal); D69.6 Thrombocytopenia, unspecified; D63.0 Anemia in neoplastic disease; F20.9 Schizophrenia, unspecified; F17.210 Nicotine dependence, cigarettes, uncomplicated; J44.9 Chronic obstructive pulmonary disease, unspecified; Z79.899 Other long term (current) drug therapy; Z85.46 Personal history of malignant neoplasm of prostate
CPT/HCPCS: 36415; 71045; 80048; 84484; 85007; 85014; 85018; 85027; 86850; 86900; 86901; 86902; 86922; G0378

== ENCOUNTER 2024-02-27 05:45 | Emergency (ER) | payer MEDICARE, MEDICAID ==
[~2024-02-27] VITALS: Ht 180.3 cm; Wt 78.2 kg
[~2024-02-27 05:45] MED LIST changes: +HYDR-4798 PO
[2024-02-27 05:55] VITALS: BP 98/70; PULSE 95; RESP 18; O2SAT 98
--- NOTE | 2024-02-27 06:27 | ED.PDOC ---
History of Present Illness HPI Comments 68 Y M, with PMHX of anemia, cancer, and COPD presents to the ED with CC of abnormal labs. Patient was last D/C from [facility] on 02/20/24 for DX anemia requiring blood transfusion. Patient states that he receives routine blood transfusion at [facility] every week. Patient relays that he feels fine other than experiencing slight dizziness but complains of no other symptoms. Patient denies ETOH or illicit drugs but does have a HX of smoking tobacco. Patient denies chest pain, SOB, chills, or body aches. Chief Complaint: Abnormal LAB's Time Seen by MD: 06:23 Primary Care Provider: marlon Reviewed Notes: Nurses Notes, Medications, Allergies Allergies: Coded Allergies: NO KNOWN ALLERGIES (Unverified , 12/04/23) Home Meds Active Scripts Hydrocodone-Acetaminophen (Hydrocodone Bitartrate/AC 10-325 mg) 1 Tab Tab, 1 TAB PO QID PRN, #30 TAB Prov:SHARON LUEVANO MD 02/23/24 Hydrocortone (Hydrocortisone 1%) 1 Applic Ap, 1 APPLIC TOP BID, #30 GRAMS Prov:JUAN ROGERS MD 02/08/24 Midodrine Hcl (Midodrine Hcl) 5 Mg Tab, 5 MG PO TID for 30 Days, #90 TAB Prov:YOANDY SALAS NP 01/18/24 Reported Medications Albuterol Sulfate (Albuterol Sulfate Hfa) 108 Mcg/Act Aer, INH 01/30/24 Midodrine HCl (Midodrine Hydrochloride) 5 Mg Tab, 1 TAB PO TID 01/30/24 Risperidone (Risperidone) 2 Mg Tab, 2 MG PO BID, TAB 12/05/23 Nicotine (Nicoderm 21MG/24HR) 1 Patch Ph, 1 PATCH TOP DAILY, #28 PATCH 1 Refill 12/05/23 Mirtazapine (Mirtazapine Oral Disintegrating Tablet) 45 Mg Tab, 1 TAB PO QPM, #30 TAB 1 Refill 12/05/23 Melatonin (KP MELATONIN) 3 Mg Tab, 3 MG PO, TAB 12/05/23 Leuprolide Acetate (3 Month) (Lupron Depot) 22.5 Mg Inj, 22.5 MG IM, INJ 12/05/23 Gabapentin (Gabapentin) 600 Mg Tab, 600 MG PO BID, TAB 9/17/24 Folic Acid (Folic Acid) 1 Mg Tab, 1 MG PO DAILY for 30 Days, MG 12/05/23 Fluticasone Furoate (Inhalatio (Arnuity Ellipta) 200 Mcg/Act Inh, 200 MCG IN, INHALER 12/05/23 Atorvastatin Calcium (ATORVASTATIN CALCIUM) 40 Mg Tab, 1 TAB PO DAILY, #30 TAB 5 Refills 12/05/23 Albuterol Sulfate (VENTOLIN MDI) 90 Mcg Ih, 90 MCG IN, INH 12/05/23 Information Source: Patient Mode of Arrival: Ambulatory Severity: Moderate Timing: Other (see HPI) Duration: Other (see HPI) Prehospital treatment: None Past Medical History PAST MEDICAL HISTORY: Anemia, Cancer, COPD, Schizophrenia Surgical History: Unknown Family History Family History: Reviewed,noncontributory to illness, Unknown Social History Smoker: Cigarettes Alcohol: Denies ETOH Use Drugs: Denies Drug Use Lives In: Home Constitutional: denies: chills, diaphoresis, fatigue, fever, malaise, sweats, weakness, others EENTM: denies: blurred vision, double vision, ear bleeding, ear discharge, ear drainage, ear pain, ear ringing, eye pain, eye redness, hearing loss, mouth pain, mouth swelling, nasal discharge, nose bleeding, nose congestion, nose pain, photophobia, tearing, throat pain, throat swelling, voice changes, others Respiratory: denies: cough, hemoptysis, orthopnea, SOB at rest, shortness of breath, SOB with excertion, stridor, wheezing, others Cardiovascular: denies: chest pain, dizzy spells, diaphoresis, Dyspnea on exertion, edema, irregular heart beat, left arm pain, lightheadedness, palpitations, PND, syncope, others Gastrointestinal: denies: abdomen distended, abdominal pain, blood streaked bowels, constipated, diarrhea, dysphagia, difficulty swallowing, hematemesis, melena, nausea, poor appetite, poor fluid intake, rectal bleeding, rectal pain, vomiting, others Genitourinary: denies: burning, dysuria, flank pain, frequency, hematuria, incontinence, penile discharge, penile sore, pain, testicle pain, testicle swelling, urgency, others Neurological: reports: dizziness; denies: fainting, headache, left sided numbness, left sided weakness, numbness, paresthesia, pre-existing deficit, right sided numbness, right sided weakness, seizure, speech problems, tingling, tremors, weakness, others Musculoskeletal: denies: back pain, gout, joint pain, joint swelling, muscle pain, muscle stiffness, neck pain, others Integumetry: denies: bruises, change in color, change in hair/nails, dryness, laceration, lesions, lumps, rash, wounds, others Allergic/Immunocompromised: denies: Difficulty Healing, Frequent Infections, Hives, Itching, others Hematologic/Lymphatic: denies: anemia, blood clots, easy bleeding, easy bruising, swollen glands, others Endocrine: denies: excessive hunger, excessive sweating, excessive thirst, excessive urination, flushing, intolerance to cold, intolerance to heat, unexplained weight gain, unexplained weight loss, others Psychiatric: denies: anxiety, bipolar disorder, depression, hopeless, panic disorder, schizophrenia, sleepless, suicidal, others All Other Systems: Reviewed and Negative Physical Exam General Appearance: Moderate Distress, Normal HEENT: Normal ENT Inspection, Pharynx Normal, TMs Normal Neck: Full Range of Motion, Non-Tender, Normal, Normal Inspection Respiratory: Chest Non-Tender, Lungs Clear, No Accessory Muscle Use, No Respiratory Distress, Normal Breath Sounds Cardiovascular: No Edema, No JVD, No Murmur, No Gallop, Normal Peripheral Pulses, Regular Rate/Rhythm Breast Exam: Deferred Gastrointestinal: No Organomegaly, Non Tender, No Pulsatile Mass, Normal Bowel Sounds, Soft Genitalia: Deferred Pelvic: Deferred Rectal: Deferred Extremities: No calf tenderness, Normal capillary refill, Normal inspection, Normal range of motion, Non-tender, No pedal edema Musculoskeletal : Apperance: Normal Neurologic: Alert, process design engineer II-XII nml as Tested, No Motor Deficits, Normal Affect, Normal Mood, No Sensory Deficits Cerebellar Function: Normal Reflexes: Normal Skin: Dry, Normal Color, Warm Peripheral Pulses: 3+ Radial (R), 3+ Radial (L) Lymphatic: No Adenopathy Was a procedure done? Was a procedure done?: No Differential Dx Considerations may include: ABNORMAL LABS, anemia, frequent patient in the emergency department X-Ray, Labs, Meds, VS Vital Signs Date Time Temp Pulse Resp B/P (MAP) Pulse Ox O2 Delivery O2 Flow Rate FiO2 02/27/24 05:55 98.3 95 18 98/70 (79) 98 Patient alert. History of anemia. Vitals stable. Answering all questions. Saturation pristine on room air. Reviewed his previous visit. Explained to the patient. Continue cardiac monitoring. Time of 1ST Reevaluation: 06:53 Reevaluation 1ST: Unchanged Patient Education/Counseling: Diagnosis, Treatment Family Education/Counseling: No Family Present Departure 1 Departure Time of Disposition: 06:47 Impression: Primary Impression: Severe anemia Disposition: 09 ADMITTED INPATIENT Admit to: Med Surg Condition: Guarded Critical Care Note Critical Care Time?: Yes (45 min-critical care time only) Stability Stability form required: No Heart Score Heart Score: Heart Score Response (Comments) Value History N/A 0 EKG N/A 0 Age N/A 0 Risk Factors N/A 0 Troponin N/A 0 Total 0 I personally scribed for TEE ATKINS MD ([email or web address]) on 02/27/24 at 06:27. Electronically submitted by Leo Elizabeth ([email or web address]). I personally scribed for TEE ATKINS MD ([email or web address]) on 02/27/24 at 06:34. Electronically submitted by Leo Elizabeth ([email or web address]). I personally scribed for TEE ATKINS MD ([email or web address]) on 02/27/24 at 06:46. Electronically submitted by Leo Elizabeth ([email or web address]). I personally scribed for TEE ATKINS MD ([email or web address]) on 02/27/24 at 06:49. Electronically submitted by Leo Elizabeth ([email or web address]). TEE ATKINS MD Feb 27, 2024 06:27
[2024-02-27 07:21] LABS: Mean Corpuscular Hemoglobin 29.5 pg (28.0-32.0); Red Cell Distribution Width 15.8 % (11.8-14.3); White Blood Cell 2.8 10^3/uL (4.4-10.8)
[2024-02-27 07:23] LABS: Hematocrit 26.4 % (41.0-53.0); Mean Corpuscular Hgb Conc. 34.1 g/dL (32.0-36.0); Mean Corpuscular Volume 86.3 fL (80.0-100.0); Platelet Count (auto) 65 10^3/uL (140-450); Red Blood Cells 3.06 10^6/uL (4.5-5.90)
[2024-02-27 07:27] LABS: Basophils % (manual) 0 (0.0-2.0); Blast Cells 0; Metamyelocytes % 0; Monocytes % (manual) 0 (0-12); Myelocytes % 0; Promyelocytes % 0; Reactive Lymphocytes 0
[2024-02-27 07:33] LABS: Sodium 140 mmol/L (136-145)
[2024-02-27 07:34] LABS: Anion Gap 5 (5-15); Carbon Dioxide 26 mmol/L (20-31)
[2024-02-27 07:39] LABS: BUN/Creatinine Ratio 15.2 (10.0-20.0); Blood Urea Nitrogen 14 mg/dL (9-23)
[2024-02-27 07:40] LABS: Chloride 109 mmol/L (98-107); Glucose 120 mg/dL (74-106)
[2024-02-27 09:03] LABS: Band Neutrophils % (manual) 6; Eosinophils % (manual) 22 (0-7); Lymphocytes % (manual) 35 (10.0-50.0); Platelet Estimate Decreased
--- NOTE | 2024-02-27 10:31 | DVHHP2 ---
History of Present Illness Reason for Visit: anemia here for blood transfusion History of Present Illness 68-year-old male past medical history COPD COVID illness CAD myelodysplastic syndrome (MDS) CVA anemia schizophrenia hyperlipidemia DVT currently without blood thinners BPH prostate cancer in remission surgical history prostate surgery cyst in the inner thigh chief complaint patient states that every Monday he usually gets a blood transfusion for anemia, pt states comes wkly to check hemoglobin, pt current hemoglobin as 9.0 last admission on 02/21/2024 pt was provided 3 units of blood, pt is to be admitted to be provided 1 unit more for the goal to get hemoglobin >10.0 but since pt know his hemglboin is 9 he is hesistant to stay in hosp, He currently denies any chest pain no shortness a breath no active bleeding. When evaluating patient's labs and imaging hemoglobin was 9.0/26.4 [place] [id number] With these findings we will admit patient and provide blood transfusion patient does not blood transfusion today Past Medical History see HPI above Past Surgical History see HPI above Family History Reviewed, non-contributory to the management of this case. Past Social History The patient lives at home, denies smoking, alcohol or illicit drugs abuse. Review of Systems Constitutional: No: Fever, Chills, Sweats, Weakness, Malaise, Other Eyes: No: Pain, Vision change, Conjunctivae inflammation, Eyelid inflammation, Other, Redness ENT: No: Ear pain, Ear discharge, Nose pain, Nose discharge, Nose congestion, Mouth pain, Mouth swelling, Throat pain, Throat swelling, Other Respiratory: No: Cough, Dry, Shortness of breath, SOB with excertion, Wheezing, Hemoptysis, Pleuritic Pain, Sputum, Wheezing, Other Cardiovascular: No: Chest Pain, Palpitations, Orthopnea, Paroxysmal Noc. Dyspnea, Edema, Lt Headedness, Other Gastrointestinal: No: Nausea, Vomiting, Abdominal Pain, Diarrhea, Constipation, Melena, Hematochezia, Other Genitourinary: No Dysuria, No Frequency, No Incontinence, No Hematuria, No Retention, No Other Musculoskeletal: No: other, neck pain, shoulder pain, arm pain, back pain, hand pain, leg pain, foot pain Skin: No: Rash, Lesions, Jaundice, Bruising, Other Neurological: No: Weakness, Numbness, Incoordination, Change in speech, Confusion, Seizures, Other Allergies: Coded Allergies: NO KNOWN ALLERGIES (Unverified , 12/04/23) Exam Vital Signs Vital Signs Date Time Temp Pulse Resp B/P (MAP) Pulse Ox O2 Delivery O2 Flow Rate FiO2 02/27/24 05:55 98.3 95 18 98/70 (79) 98 General Appearance: Alert, Oriented X3, Cooperative, No acute distress HEENT: Atraumatic, PERRLA, EOMI, Mucous membr. moist/pink Respiratory: Clear to auscultation, Normal air movement Cardiovascular: Regular rate, Normal S1, Normal S2, No murmurs Abdominal: Normal bowel sounds, Soft, No tenderness, No hepatospenomegaly, No masses Extremities: No clubbing, No cyanosis, No edema, Normal pulses, No tenderness/swelling Skin: No rashes, No breakdown, No significant lesion Neuro: Normal gait, Normal speech, Strength at 5/5 X4 ext, Normal tone, Sensation intact, Cranial nerves 3-12 NL Psych/Mental Status: Mental status NL, Mood NL Labs/Xrays I reviewed labs, imaging CT scan abdomen pelvis, EKG and all diagnostic studies on this patient from ED records and the medical chart Labs Test 02/27/24 06:28 Range/Units White Blood Count 2.8 L 4.4-10.8 10^3/uL Red Blood Count 3.06 L 4.5-5.90 10^6/uL Hemoglobin 9.0 L 13.5-17.5 g/dL Hematocrit 26.4 L 41.0-53.0 % Mean Corpuscular Volume 86.3 80.0-100.0 fL Mean Corpuscular Hemoglobin 29.5 28.0-32.0 pg Mean Corpuscular Hemoglobin Concent 34.1 32.0-36.0 g/dL Red Cell Distribution Width 15.8 H 11.8-14.3 % Platelet Count 65 L 140-450 10^3/uL Mean Platelet Volume 9.4 6.9-10.8 fL Neutrophils (%) (Auto) 37.0-80.0 % Lymphocytes (%) (Auto) 10.0-50.0 % Monocytes (%) (Auto) 0.0-12.0 % Basophils (%) (Auto) 0.0-2.0 % Neutrophils # (Auto) 1.6-8.6 10 ^3/uL Lymphocytes # (Auto) 0.4-5.4 10 ^3/uL Monocytes # (Auto) 0-1.3 10 ^3/uL Differential Total Cells Counted 100.0 100 Neutrophils % (Manual) 37 37.0-80.0 Band Neutrophils % (Manual) 6 Lymphocytes % (Manual) 35 10.0-50.0 Monocytes % (Manual) 0 0-12 Eosinophils % (Manual) 22 H 0-7 Basophils % (Manual) 0 0.0-2.0 Metamyelocytes % (manual) 0 Myelocytes % (Manual) 0 Promyelocytes % (Manual) 0 Blast Cells % (Manual) 0 Reactive Lymphocytes 0 Platelet Estimate Decreased Sodium Level 140 136-145 mmol/L Potassium Level 4.0 3.5-5.1 mmol/L Chloride Level 109 H 98-107 mmol/L Carbon Dioxide Level 26 20-31 mmol/L Anion Gap 5 5-15 Blood Urea Nitrogen 14 9-23 mg/dL Creatinine 0.92 0.700-1.30 mg/dL Glomerular Filtration Rate Calc 92 >90 mL/min BUN/Creatinine Ratio 15.2 10.0-20.0 Serum Glucose 120 H 74-106 mg/dL Calcium Level 10.0 8.7-10.4 mg/dL Assessment/Plan Assessment/Plan acute on chronic blood loss anemia, asymptomatic current hemoglobin 9.0 pt had transfusion on last admission 3 units on 02/20/2024 pt comes wkly for blood transfusion to be provided on monday per pt request pt to have goal of hemoglobin 10.0 goal was to transfuse pt 1 unit of prbc Acute on Chronic myelodysplastic syndrome, chronic anemia pt will need to follow up with hem onc for outpt follow up of illness chronic thrombocytopenia current plt count 65,000 at baseline hemo onc consult since hx of MDS consider transfusion if downtrend Monitor for bleeding Chronic hyperlipidemia Continue home meds once list is obtained Chronic BPH Continue home meds once list is obtained chronic COPD without exacerbation O2 to keep sats greater than 92% Can consider albuterol Atrovent as needed for shortness breath if patient requires Chronic stroke uses a walker with ambulation Monitor for fall precautions fen/ppx no gi ppx since no hx of gerds or gi bleed no dvt ppx since pt with thrombocytopenia IV fluids scd diet plan admit to medicine Plan discussed with: Patient Date of Service: Feb 27, 2024 Billing Provider: AMENA CORRAL DNP Common Visit Codes: [id number] INP/OBS CARE (HIGH) AMENA CORRAL DNP Feb 27, 2024 10:31
== END 2024-02-27 10:24 | disposition left against medical advice (07) ==
LOC: ER 05:45
DX: D64.9 Anemia, unspecified (principal); J44.9 Chronic obstructive pulmonary disease, unspecified; F17.210 Nicotine dependence, cigarettes, uncomplicated; Z79.899 Other long term (current) drug therapy
CPT/HCPCS: 36415; 80048; 85007; 85027; 99291

== ENCOUNTER 2024-03-05 05:37 | Inpatient (IN) | payer MEDICARE, MEDICAID ==
[2024-03-05] VITALS (12 sets, daily range): BP systolic 91–130; BP diastolic 46–66; PULSE 68–89; RESP 15–22; TEMP 97.9–99.1; O2SAT 94–98
[~2024-03-05] VITALS: Ht 152.4 cm; Wt 84.5 kg
--- NOTE | 2024-03-05 06:56 | ED.PDOC ---
History of Present Illness HPI Comments 68 Y M, with PMHX of anemia, cancer, COPD presents to the ED with CC of abnormal labs. Patient is seen at [facility] for routine weekly blood transfusions every Monday. Patient states that he is feeling slight syncope with associated symptoms of dizziness. Patient relays that he "wants to see where his numbers are at". Patient denies any N/V/D, chills, cough, or headache. Chief Complaint: Abnormal LAB's Time Seen by MD: 06:30 Primary Care Provider: marlon Reviewed Notes: Nurses Notes, Medications, Allergies Allergies: Coded Allergies: NO KNOWN ALLERGIES (Unverified , 12/04/23) Home Meds Active Scripts Hydrocodone-Acetaminophen (Hydrocodone Bitartrate/AC 10-325 mg) 1 Tab Tab, 1 TAB PO QID PRN, #30 TAB Prov:SHARON LUEVANO MD 02/23/24 Hydrocortone (Hydrocortisone 1%) 1 Applic Ap, 1 APPLIC TOP BID, #30 GRAMS Prov:JUAN ROGERS MD 02/08/24 Midodrine Hcl (Midodrine Hcl) 5 Mg Tab, 5 MG PO TID for 30 Days, #90 TAB Prov:YOANDY SALAS NP 01/18/24 Reported Medications Albuterol Sulfate (Albuterol Sulfate Hfa) 108 Mcg/Act Aer, INH 01/30/24 Midodrine HCl (Midodrine Hydrochloride) 5 Mg Tab, 1 TAB PO TID 01/30/24 Risperidone (Risperidone) 2 Mg Tab, 2 MG PO BID, TAB 12/05/23 Nicotine (Nicoderm 21MG/24HR) 1 Patch Ph, 1 PATCH TOP DAILY, #28 PATCH 1 Refill 12/05/23 Mirtazapine (Mirtazapine Oral Disintegrating Tablet) 45 Mg Tab, 1 TAB PO QPM, #30 TAB 1 Refill 12/05/23 Melatonin (KP MELATONIN) 3 Mg Tab, 3 MG PO, TAB 12/05/23 Leuprolide Acetate (3 Month) (Lupron Depot) 22.5 Mg Inj, 22.5 MG IM, INJ 12/05/23 Gabapentin (Gabapentin) 600 Mg Tab, 600 MG PO BID, TAB 12/05/23 Folic Acid (Folic Acid) 1 Mg Tab, 1 MG PO DAILY for 30 Days, MG 12/05/23 Fluticasone Furoate (Inhalatio (Arnuity Ellipta) 200 Mcg/Act Inh, 200 MCG IN, INHALER 12/05/23 Atorvastatin Calcium (ATORVASTATIN CALCIUM) 40 Mg Tab, 1 TAB PO DAILY, #30 TAB 5 Refills 12/05/23 Albuterol Sulfate (VENTOLIN MDI) 90 Mcg Ih, 90 MCG IN, INH 12/05/23 Information Source: Patient Mode of Arrival: Ambulatory Severity: Mild Timing: Hours Duration: Since onset Past Medical History PAST MEDICAL HISTORY: Anemia, Cancer, COPD, Schizophrenia Surgical History: Unknown Family History Family History: Reviewed,noncontributory to illness, Unknown Social History Smoker: Cigarettes Alcohol: Denies ETOH Use Drugs: Denies Drug Use Lives In: Home Constitutional: denies: chills, diaphoresis, fatigue, fever, malaise, sweats, weakness, others EENTM: denies: blurred vision, double vision, ear bleeding, ear discharge, ear drainage, ear pain, ear ringing, eye pain, eye redness, hearing loss, mouth pain, mouth swelling, nasal discharge, nose bleeding, nose congestion, nose pain, photophobia, tearing, throat pain, throat swelling, voice changes, others Respiratory: denies: cough, hemoptysis, orthopnea, SOB at rest, shortness of breath, SOB with excertion, stridor, wheezing, others Cardiovascular: denies: chest pain, dizzy spells, diaphoresis, Dyspnea on exertion, edema, irregular heart beat, left arm pain, lightheadedness, palpitations, PND, syncope, others Gastrointestinal: denies: abdomen distended, abdominal pain, blood streaked bowels, constipated, diarrhea, dysphagia, difficulty swallowing, hematemesis, melena, nausea, poor appetite, poor fluid intake, rectal bleeding, rectal pain, vomiting, others Genitourinary: denies: burning, dysuria, flank pain, frequency, hematuria, incontinence, penile discharge, penile sore, pain, testicle pain, testicle swelling, urgency, others Neurological: denies: dizziness, fainting, headache, left sided numbness, left sided weakness, numbness, paresthesia, pre-existing deficit, right sided numbness, right sided weakness, seizure, speech problems, tingling, tremors, weakness, others Musculoskeletal: denies: back pain, gout, joint pain, joint swelling, muscle pain, muscle stiffness, neck pain, others Integumetry: denies: bruises, change in color, change in hair/nails, dryness, laceration, lesions, lumps, rash, wounds, others Allergic/Immunocompromised: denies: Difficulty Healing, Frequent Infections, Hives, Itching, others Hematologic/Lymphatic: denies: anemia, blood clots, easy bleeding, easy bruising, swollen glands, others Endocrine: denies: excessive hunger, excessive sweating, excessive thirst, excessive urination, flushing, intolerance to cold, intolerance to heat, unexplained weight gain, unexplained weight loss, others Psychiatric: denies: anxiety, bipolar disorder, depression, hopeless, panic disorder, schizophrenia, sleepless, suicidal, others All Other Systems: Reviewed and Negative Physical Exam General Appearance: No Apparent Distress, Normal HEENT: Normal ENT Inspection, Pharynx Normal, TMs Normal Neck: Full Range of Motion, Non-Tender, Normal, Normal Inspection Respiratory: Chest Non-Tender, Lungs Clear, No Accessory Muscle Use, No Respiratory Distress, Normal Breath Sounds Cardiovascular: No Edema, No JVD, No Murmur, No Gallop, Normal Peripheral Pulses, Regular Rate/Rhythm Breast Exam: Deferred Gastrointestinal: No Organomegaly, Non Tender, No Pulsatile Mass, Normal Bowel Sounds, Soft Genitalia: Deferred Pelvic: Deferred Rectal: Deferred Extremities: No calf tenderness, Normal capillary refill, Normal inspection, Normal range of motion, Non-tender, No pedal edema Musculoskeletal : Apperance: Normal Neurologic: Alert, manager corporate marketing II-XII nml as Tested, No Motor Deficits, Normal Affect, Normal Mood, No Sensory Deficits Cerebellar Function: Normal Reflexes: Normal Skin: Dry, Normal Color, Warm Lymphatic: No Adenopathy Was a procedure done? Was a procedure done?: No Differential Dx Considerations may include: Myelodysplastic syndrome, ACS, electrolyte abnormalities, symptomatic anemia X-Ray, Labs, Meds, VS Vital Signs Date Time Temp Pulse Resp B/P (MAP) Pulse Ox O2 Delivery O2 Flow Rate FiO2 03/05/24 08:05 98.0 85 18 91/58 (69) 96 98.0 03/05/24 07:40 Room Air* 0 21 03/05/24 05:48 99.4 111 16 117/69 (85) 97 Lab Test 03/05/24 06:57 Range/Units White Blood Count 3.0 L 4.4-10.8 10^3/uL Red Blood Count 2.47 L 4.5-5.90 10^6/uL Hemoglobin 7.3 L 13.5-17.5 g/dL Hematocrit 21.1 L 41.0-53.0 % Mean Corpuscular Volume 85.6 80.0-100.0 fL Mean Corpuscular Hemoglobin 29.4 28.0-32.0 pg Mean Corpuscular Hemoglobin Concent 34.4 32.0-36.0 g/dL Red Cell Distribution Width 16.0 H 11.8-14.3 % Platelet Count 59 L 140-450 10^3/uL Mean Platelet Volume 8.8 6.9-10.8 fL Neutrophils (%) (Auto) 37.0-80.0 % Lymphocytes (%) (Auto) 10.0-50.0 % Monocytes (%) (Auto) 0.0-12.0 % Eosinophils (%) (Auto) 0.0-7.0 % Basophils (%) (Auto) 0.0-2.0 % Neutrophils # (Auto) 1.6-8.6 10 ^3/uL Lymphocytes # (Auto) 0.4-5.4 10 ^3/uL Monocytes # (Auto) 0-1.3 10 ^3/uL Differential Total Cells Counted Pending Neutrophils % (Manual) Pending Band Neutrophils % (Manual) Pending Lymphocytes % (Manual) Pending Monocytes % (Manual) Pending Eosinophils % (Manual) Pending Basophils % (Manual) Pending Metamyelocytes % (manual) Pending Myelocytes % (Manual) Pending Promyelocytes % (Manual) Pending Blast Cells % (Manual) Pending Reactive Lymphocytes Pending Platelet Estimate Pending Prothrombin Time 10.7 9.3-11.8 sec Prothrombin Time INR 1.01 0.9-1.15 Sodium Level 141 136-145 mmol/L Potassium Level 4.2 3.5-5.1 mmol/L Chloride Level 109 H 98-107 mmol/L Carbon Dioxide Level 26 20-31 mmol/L Anion Gap 6 5-15 Blood Urea Nitrogen 9 9-23 mg/dL Creatinine 0.84 0.700-1.30 mg/dL Glomerular Filtration Rate Calc 96 >90 mL/min BUN/Creatinine Ratio 10.7 10.0-20.0 Serum Glucose 109 H 74-106 mg/dL Calcium Level 9.7 8.7-10.4 mg/dL Time of 1ST Reevaluation: 07:00 Reevaluation 1ST: Unchanged Patient Education/Counseling: Diagnosis, Treatment Family Education/Counseling: No Family Present Departure 1 Departure Time of Disposition: 09:36 (Patient with symptomatic anemia and low hemoglobin. We will admit patient for further workup) Impression: Primary Impression: Symptomatic anemia Additional Impression: MDS (myelodysplastic syndrome) Disposition: ADMITTED INPATIENT Admit to: Med Surg Condition: Serious Critical Care Note Critical Care Time?: No Stability Stability form required: No Heart Score Heart Score: Heart Score Response (Comments) Value History N/A 0 EKG N/A 0 Age N/A 0 Risk Factors N/A 0 Troponin N/A 0 Total 0 I personally scribed for RAYRAY PAPPAS MD ([email or web address]) on 03/05/24 at 06:56. Electronically submitted by Maria Elena Barton ([email or web address]). RAYRAY PAPPAS MD Mar 05, 2024 06:56
[2024-03-05 07:26] LABS: Red Blood Cells 2.47 10^6/uL (4.5-5.90)
[2024-03-05 07:29] LABS: Hematocrit 21.1 % (41.0-53.0); Hemoglobin 7.3 g/dL (13.5-17.5); Mean Corpuscular Hemoglobin 29.4 pg (28.0-32.0); Mean Corpuscular Hgb Conc. 34.4 g/dL (32.0-36.0); Mean Corpuscular Volume 85.6 fL (80.0-100.0); Platelet Count (auto) 59 10^3/uL (140-450)
[2024-03-05 07:34] LABS: Potassium 4.2 mmol/L (3.5-5.1); Sodium 141 mmol/L (136-145)
[2024-03-05 07:35] LABS: Anion Gap 6 (5-15); Carbon Dioxide 26 mmol/L (20-31)
[2024-03-05 07:36] LABS: Calcium 9.7 mg/dL (8.7-10.4)
[2024-03-05 07:41] LABS: BUN/Creatinine Ratio 10.7 (10.0-20.0); INR 1.01 (0.9-1.15); Prothrombin Time 10.7 sec (9.3-11.8)
[2024-03-05 07:44] LABS: Blood Urea Nitrogen 9 mg/dL (9-23); Chloride 109 mmol/L (98-107); Glucose 109 mg/dL (74-106)
[2024-03-05 08:08] LABS: Band Neutrophils % (manual) 0; Basophils % (manual) 0 (0.0-2.0); Blast Cells 0; Metamyelocytes % 0; Myelocytes % 0; Promyelocytes % 0; Reactive Lymphocytes 0
[2024-03-05 09:45] LABS: Eosinophils % (manual) 14 (0-7); Lymphocytes % (manual) 20 (10.0-50.0); Monocytes % (manual) 7 (0-12)
[2024-03-05 09:46] LABS: Platelet Estimate Decreased
--- NOTE | 2024-03-05 10:10 | DVHHP2 ---
History of Present Illness Reason for Visit: Genralized weakness History of Present Illness Eugene Alejandro Jr is a 68-year-old male with past medical history of COPD, current smoker, prostate cancer S/P proctectomy, myelodysplastic syndrome, schizophrenia, and anemia who comes in with complaints of generalized weakness. Patient is seen here frequently for blood transfusions. Patient states he came in today due to feeling weak and near syncopal episode. Denies any chest pain, shortness of breath or S/S of active bleeding. Pulmonary: COPD Heme/Onc: Anemia NOS, Cancer (prostate), Other (myelodysplastic syndrome) Psych: Schizophrenia Past Surgical History: Other (proctectomy), Tonsillectomy Family History: None Smoke: <1 pack per day ALCOHOL: none Drugs: None Lives: with Family Review of Systems Constitutional: Yes: Weakness, Malaise; No: Fever, Chills, Sweats, Other Eyes: No: Pain, Vision change, Conjunctivae inflammation, Eyelid inflammation, Other, Redness ENT: No: Ear pain, Ear discharge, Nose pain, Nose discharge, Nose congestion, Mouth pain, Mouth swelling, Throat pain, Throat swelling, Other Respiratory: No: Cough, Dry, Shortness of breath, SOB with excertion, Wheezing, Hemoptysis, Pleuritic Pain, Sputum, Wheezing, Other Cardiovascular: No: Chest Pain, Palpitations, Orthopnea, Paroxysmal Noc. Dyspnea, Edema, Lt Headedness, Other Gastrointestinal: No: Nausea, Vomiting, Abdominal Pain, Diarrhea, Constipation, Melena, Hematochezia, Other Musculoskeletal: No: other, neck pain, shoulder pain, arm pain, back pain, hand pain, leg pain, foot pain Skin: No: Rash, Lesions, Jaundice, Bruising, Other Neurological: No: Weakness, Numbness, Incoordination, Change in speech, Confusion, Seizures, Other Allergies: Coded Allergies: NO KNOWN ALLERGIES (Unverified , 12/04/23) Exam Vital Signs Vital Signs Date Time Temp Pulse Resp B/P (MAP) Pulse Ox O2 Delivery O2 Flow Rate FiO2 03/05/24 08:05 98.0 85 18 91/58 (69) 96 98.0 03/05/24 07:40 Room Air* 0 21 General Appearance: Alert, Oriented X3, moderate distress HEENT: Atraumatic, PERRLA, Other (pale MM) Respiratory: Clear to auscultation Cardiovascular: Regular rate, Normal S1, Normal S2 Abdominal: Normal bowel sounds, Soft, No tenderness Extremities: No clubbing, No cyanosis, Normal pulses, Other (right lower extremity edema) Skin: No rashes, No breakdown, No significant lesion Neuro: Normal speech Psych/Mental Status: Mental status NL, Mood NL Labs/Xrays Labs Test 03/05/24 06:57 Range/Units White Blood Count 3.0 L 4.4-10.8 10^3/uL Red Blood Count 2.47 L 4.5-5.90 10^6/uL Hemoglobin 7.3 L 13.5-17.5 g/dL Hematocrit 21.1 L 41.0-53.0 % Mean Corpuscular Volume 85.6 80.0-100.0 fL Mean Corpuscular Hemoglobin 29.4 28.0-32.0 pg Mean Corpuscular Hemoglobin Concent 34.4 32.0-36.0 g/dL Red Cell Distribution Width 16.0 H 11.8-14.3 % Platelet Count 59 L 140-450 10^3/uL Mean Platelet Volume 8.8 6.9-10.8 fL Neutrophils (%) (Auto) 37.0-80.0 % Lymphocytes (%) (Auto) 10.0-50.0 % Monocytes (%) (Auto) 0.0-12.0 % Eosinophils (%) (Auto) 0.0-7.0 % Basophils (%) (Auto) 0.0-2.0 % Neutrophils # (Auto) 1.6-8.6 10 ^3/uL Lymphocytes # (Auto) 0.4-5.4 10 ^3/uL Monocytes # (Auto) 0-1.3 10 ^3/uL Differential Total Cells Counted 100.0 100 Neutrophils % (Manual) 59 37.0-80.0 Band Neutrophils % (Manual) 0 Lymphocytes % (Manual) 20 10.0-50.0 Monocytes % (Manual) 7 0-12 Eosinophils % (Manual) 14 H 0-7 Basophils % (Manual) 0 0.0-2.0 Metamyelocytes % (manual) 0 Myelocytes % (Manual) 0 Promyelocytes % (Manual) 0 Blast Cells % (Manual) 0 Reactive Lymphocytes 0 Platelet Estimate Decreased Prothrombin Time 10.7 9.3-11.8 sec Prothrombin Time INR 1.01 0.9-1.15 Sodium Level 141 136-145 mmol/L Potassium Level 4.2 3.5-5.1 mmol/L Chloride Level 109 H 98-107 mmol/L Carbon Dioxide Level 26 20-31 mmol/L Anion Gap 6 5-15 Blood Urea Nitrogen 9 9-23 mg/dL Creatinine 0.84 0.700-1.30 mg/dL Glomerular Filtration Rate Calc 96 >90 mL/min BUN/Creatinine Ratio 10.7 10.0-20.0 Serum Glucose 109 H 74-106 mg/dL Calcium Level 9.7 8.7-10.4 mg/dL Assessment/Plan Assessment/Plan Assessment: Symptomatic anemia, myelodysplastic syndrome, Thrombocytopenia, COPD, Schizophrenia, Tobacco dependence, Plan: Admit to Med-Surg, Transfuse 2 units of PRBC, IV Lasix 20 mg X 1 after PRBC, Manage/Monitor Hgb closely, Breathing treatments as needed, Fall precautions, Home medications reconciled, counseled on smoking cessation, Plan discussed with: Patient My Orders Orders - ANNIKA SYED Procedure Category Date Status Time Admit ADMIT 03/05/24 Verified 10:01 Code Status CODE 03/05/24 Verified 10:01 Sodium Chloride Lock PHA 03/05/24 Verified (Saline Lock Ns) 14:00 Hydrocodone-Acet PHA 03/05/24 Verified 5/325mg Tab ([place] 10:15 Ondansetron Hcl PHA 03/05/24 Verified (Zofran) 10:15 Docusate Sodium PHA 03/05/24 Verified Capsule (Colace 10:15 Fall Risk Precautions KATIA 03/05/[address] 10:01 Complete Blood Count LAB 03/06/24 Verified 04:00 Date of Service: Mar 05, 2024 Billing Provider: ANNIKA SYED Common Visit Codes: [id number] INP/OBS CARE (MOD) ANNIKA SYED Mar 05, 2024 10:10
[2024-03-05] MEDS ORDERED: ALBUTEROL SULF 2.5 MG/0.5ML(0.5%) NEB SOLN NEB PRN ×2 (10:15)
[2024-03-05] MEDS ORDERED: HYDROcodone-ACET 5/325MG TAB PO PRN ×2 (10:15)
[2024-03-05] MEDS ORDERED: DOCUSATE SOD 100 MG CAP PO PRN ×2 (10:15)
[2024-03-05] MEDS ORDERED: ONDANSETRON HCL 4 MG/2 ML VIAL IV PRN ×2 (10:15)
[2024-03-05] MEDS ORDERED: IPRATROPIUM BROM 0.5 MG/2.5ML INH SOL NEB PRN ×2 (10:15)
[2024-03-05] MEDS ORDERED: ACETAMINOPHEN 325 MG TAB PO PRN ×2 (10:15)
[2024-03-05] MEDS ORDERED: SODIUM CHLOR 0.9% PF (SALINE LOCK) 10ML VIAL/SYR IV SCH (14:00)
[2024-03-05] MEDS ORDERED: MIDODRINE HCL PO SCH ×2 (14:00)
[2024-03-05] MEDS: GABAPENTIN 300 MG CAP PO SCH (14:36)
[2024-03-05] MEDS: SODIUM CHLOR 0.9% PF (SALINE LOCK) 10ML VIAL/SYR IV SCH (14:36)
[2024-03-05] MEDS: MIDODRINE HCL 10 MG TAB PO SCH (14:37)
[2024-03-05] MEDS ORDERED: MIRTAZAPINE 45 MG PO SCH (18:00)
[2024-03-05] MEDS ORDERED: MIRTAZAPINE PO SCH (18:00)
[2024-03-05] MEDS: MIRTAZAPINE 45 MG PO ONE (18:58)
[2024-03-05] MEDS ORDERED: RISPERIDONE 2 MG PO SCH ×2 (22:00)
[2024-03-05] MEDS ORDERED: PATIENTS OWN MEDICATION (Gabapentin 600 MG) PO SCH ×2 (22:00)
[2024-03-05] MEDS: ATORVASTATIN 20 MG TAB PO SCH (23:22)
[2024-03-05] MEDS: risperiDONE 1 MG TAB PO SCH (23:23)
[2024-03-06] VITALS (8 sets, daily range): BP systolic 89–118; BP diastolic 43–70; PULSE 55–93; RESP 13–19; TEMP 97.8–98.5; O2SAT 92–96
[2024-03-06 00:39] LABS: Hematocrit 24.3 % (41.0-53.0); Hemoglobin 8.2 g/dL (13.5-17.5)
[2024-03-06 06:41] LABS: Hemoglobin 8.6 g/dL (13.5-17.5)
[2024-03-06 06:50] LABS: Alkaline Phosphatase 97 U/L (46-116); Anion Gap 6 (5-15); BUN/Creatinine Ratio 13.4 (10.0-20.0); Blood Urea Nitrogen 11 mg/dL (9-23); Calcium 9.5 mg/dL (8.7-10.4); Carbon Dioxide 26 mmol/L (20-31); Glucose 102 mg/dL (74-106); Potassium 4.5 mmol/L (3.5-5.1); Sodium 142 mmol/L (136-145)
[2024-03-06 06:51] LABS: Albumin 3.5 g/dL (3.2-4.8); Aspartate Aminotransferase 27 U/L (13-40); Bilirubin, Total 0.8 mg/dL (0.2-1.0)
[2024-03-06 06:52] LABS: Total Protein 6.4 g/dL (5.7-8.2)
[2024-03-06 06:58] LABS: Alanine Aminotransferase 68 U/L (7-40); Chloride 110 mmol/L (98-107)
[2024-03-06 07:07] LABS: Hematocrit 25.3 % (41.0-53.0); Mean Corpuscular Hemoglobin 29.7 pg (28.0-32.0); Mean Corpuscular Hgb Conc. 34.1 g/dL (32.0-36.0); Red Blood Cells 2.91 10^6/uL (4.5-5.90); White Blood Cell 3.1 10^3/uL (4.4-10.8)
[2024-03-06 07:10] LABS: Platelet Count (auto) 46 10^3/uL (140-450)
[2024-03-06 07:11] LABS: Basophils % (manual) 0 (0.0-2.0); Blast Cells 0; Metamyelocytes % 0; Myelocytes % 0; Promyelocytes % 0; Reactive Lymphocytes 0
[2024-03-06] MEDS ORDERED: PATIENTS OWN MEDICATION (Atorvastatin Calcium 1 TAB) PO SCH ×2 (10:00)
[2024-03-06 11:13] LABS: Band Neutrophils % (manual) 6; Eosinophils % (manual) 24 (0-7); Lymphocytes % (manual) 22 (10.0-50.0); Monocytes % (manual) 3 (0-12); Platelet Estimate Decreased
[2024-03-06] MEDS: MIRTAZAPINE 45 MG PO SCH (17:18)
--- NOTE | 2024-03-06 18:13 | DVHPN2 ---
Subjective Seen and examined at bedside. s/p 2 PRBC. Changes from previous H/P or p: No Changes Eyes: No Pain, No Vision change, No Conjunctivae inflammation, No Eyelid inflammation, No Other, No Redness ENT: No Ear pain, No Ear discharge, No Nose pain, No Nose discharge, No Nose congestion, No Mouth pain, No Mouth swelling, No Throat pain, No Throat swelling, No Other Cardiovascular: No Chest Pain, No Palpitations, No Orthopnea, No Paroxysmal Noc. Dyspnea, No Edema, No Lt Headedness, No Other Respiratory: No Cough, No Dry, No Shortness of breath, No SOB with excertion, No Wheezing, No Hemoptysis, No Pleuritic Pain, No Sputum, No Other Gastrointestinal: No Nausea, No Vomiting, No Abdominal Pain, No Diarrhea, No Constipation, No Melena, No Hematochezia, No Other Musculoskeletal: No other, No neck pain, No shoulder pain, No arm pain, No back pain, No hand pain, No leg pain, No foot pain Skin: No Rash, No Lesions, No Jaundice, No Bruising, No Other Objective Vitals Vital Signs Date Time Temp Pulse Resp B/P (MAP) Pulse Ox O2 Delivery O2 Flow Rate FiO2 03/06/24 17:30 98.1 93 18 118/70 (86) 94 98.1 03/06/24 10:14 Room Air* 0 21 Intake/Output Intake and Output 03/06/24 07:00 Intake Total 1200 ml Output Total 0 ml Balance 1200 ml Intake Oral 0 ml Tube Feeding 0 ml Blood Product 1200 ml Other 0 ml Output Urine Total 0 ml Exam Gen: in bed NAD Cvs: N S1/S2, RRR Resp: BLAE Abd: Soft, NT, BS+ Industrial Insulator: AAO x 4 Medications Current Medications Medications Dose Ordered Sig/Fabricio Route Start Time Stop Time Status Last Admin Dose Admin Ipratropium [place] 0.5 mg Q4HPRN PRN NEB 03/05/24 10:15 Sodium Chloride 10 ml Q8HR IV 03/05/24 14:00 03/06/24 12:58 10 ML Ondansetron HCl 4 mg Q4HP PRN IV 03/05/24 10:15 Acetaminophen/ Hydrocodone Bitart 1 tab Q4HP PRN PO 03/05/24 10:15 Docusate Sodium 100 mg BIDPRN PRN PO 03/05/24 10:15 Acetaminophen 650 mg Q6HP PRN PO 03/05/24 10:15 Albuterol 2.5 mg Q4HPRN PRN NEB 03/05/24 10:15 Patient Own Medication 1 tab DAILY PO 03/06/24 10:00 UNV Patient Own Medication 600 mg BID PO 03/05/24 22:00 UNV Patient Own Medication 1 tab TID PO 03/05/24 14:00 UNV Patient Own Medication 2 mg BID PO 03/05/24 22:00 UNV Gabapentin 600 mg TID PO 03/05/24 14:00 03/06/24 12:57 600 MG Atorvastatin Calcium 40 mg HS PO 03/05/24 22:00 03/05/24 23:22 40 MG Midodrine 5 mg TID PO 03/05/24 14:00 03/06/24 12:57 5 MG Risperidone 2 mg BID PO 03/05/24 22:00 03/06/24 12:57 2 MG Mirtazapine 45 mg QPM PO 03/06/24 18:00 03/06/24 17:18 45 MG Laboratory Results Laboratory Tests 03/06/24 05:07 Chemistry Test 03/06/24 05:07 Albumin 3.5 g/dL (3.2-4.8) Calcium Level 9.5 mg/dL (8.7-10.4) Total Protein 6.4 g/dL (5.7-8.2) LFT Test 03/06/24 05:07 Alanine Aminotransferase (ALT) 68 U/L (7-40) H Alkaline Phosphatase 97 U/L (46-116) Aspartate Amino Transferase (AST) 27 U/L (13-40) Total Bilirubin 0.8 mg/dL (0.2-1.0) Assessment/Plan Assessment/Plan Symptomatic anemia- s/p 2 PRBC myelodysplastic syndrome- Cpont Outpatient followup Thrombocytopenia, COPD, Schizophrenia, Tobacco dependence, Goals of care >17 mins FULL CODE Plan discussed with: Patient My Orders Orders - VENKAT SMILEY MD Procedure Category Date Status Time Complete Blood Count LAB 03/07/24 Verified 04:00 Date of Service: Mar 06, 2024 Billing Provider: VENKAT SMILEY MD Common Visit Codes: [id number] INP/OBS CARE(HIGH) Secondary Visit Codes: [id number] CARE PLAN 30 MINUTES VENKAT SMILEY MD Mar 06, 2024 18:13
[2024-03-07] VITALS (10 sets, daily range): BP systolic 87–108; BP diastolic 57–68; PULSE 64–100; RESP 12–17; TEMP 97.6–98.8; O2SAT 97–100
[2024-03-07 06:58] LABS: Platelet Count (auto) 48 10^3/uL (140-450)
[2024-03-07 07:00] LABS: Hematocrit 23.7 % (41.0-53.0); Mean Corpuscular Hemoglobin 29.8 pg (28.0-32.0); Mean Corpuscular Hgb Conc. 33.9 g/dL (32.0-36.0); Mean Corpuscular Volume 87.7 fL (80.0-100.0); Red Cell Distribution Width 15.7 % (11.8-14.3); White Blood Cell 3.3 10^3/uL (4.4-10.8)
[2024-03-07 07:06] LABS: Band Neutrophils % (manual) 0; Basophils % (manual) 0 (0.0-2.0); Blast Cells 0; Metamyelocytes % 0; Myelocytes % 0; Promyelocytes % 0; Reactive Lymphocytes 0
[2024-03-07 08:03] LABS: Eosinophils % (manual) 33 (0-7); Lymphocytes % (manual) 25 (10.0-50.0); Monocytes % (manual) 3 (0-12); Platelet Estimate Decreased
--- NOTE | 2024-03-07 17:36 | DVHDS2 ---
Discharge Summary Date of Admission Mar 05, 2024 at 10:01 Date of Discharge: Mar 07, 2024 Admitting Diagnosis Anemia Labs/Diagnostic Data: Laboratory Results Test 03/07/24 05:57 03/06/24 05:07 03/05/24 06:57 White Blood Count 3.3 10^3/uL (4.4-10.8) Red Blood Count 2.70 10^6/uL (4.5-5.90) Hemoglobin 8.0 g/dL (13.5-17.5) Hematocrit 23.7 % (41.0-53.0) Mean Corpuscular Volume 87.7 fL (80.0-100.0) Mean Corpuscular Hemoglobin 29.8 pg (28.0-32.0) Mean Corpuscular Hemoglobin Concent 33.9 g/dL (32.0-36.0) Red Cell Distribution Width 15.7 % (11.8-14.3) Platelet Count 48 10^3/uL (140-450) Mean Platelet Volume 9.9 fL (6.9-10.8) Neutrophils (%) (Auto) % (37.0-80.0) Lymphocytes (%) (Auto) % (10.0-50.0) Monocytes (%) (Auto) % (0.0-12.0) Eosinophils (%) (Auto) % (0.0-7.0) Basophils (%) (Auto) % (0.0-2.0) Neutrophils # (Auto) 10 ^3/uL (1.6-8.6) Lymphocytes # (Auto) 10 ^3/uL (0.4-5.4) Monocytes # (Auto) 10 ^3/uL (0-1.3) Differential Total Cells Counted 100.0 (100) Neutrophils % (Manual) 39 (37.0-80.0) Band Neutrophils % (Manual) 0 Lymphocytes % (Manual) 25 (10.0-50.0) Monocytes % (Manual) 3 (0-12) Eosinophils % (Manual) 33 (0-7) Basophils % (Manual) 0 (0.0-2.0) Metamyelocytes % (manual) 0 Myelocytes % (Manual) 0 Promyelocytes % (Manual) 0 Blast Cells % (Manual) 0 Reactive Lymphocytes 0 Platelet Estimate Decreased Sodium Level 142 mmol/L (136-145) Potassium Level 4.5 mmol/L (3.5-5.1) Chloride Level 110 mmol/L (98-107) Carbon Dioxide Level 26 mmol/L (20-31) Anion Gap 6 (5-15) Blood Urea Nitrogen 11 mg/dL (9-23) Creatinine 0.82 mg/dL (0.700-1.30) Glomerular Filtration Rate Calc 97 mL/min (>90) BUN/Creatinine Ratio 13.4 (10.0-20.0) Serum Glucose 102 mg/dL (74-106) Calcium Level 9.5 mg/dL (8.7-10.4) Total Bilirubin 0.8 mg/dL (0.2-1.0) Aspartate Amino Transferase (AST) 27 U/L (13-40) Alanine Aminotransferase (ALT) 68 U/L (7-40) Alkaline Phosphatase 97 U/L (46-116) Total Protein 6.4 g/dL (5.7-8.2) Albumin 3.5 g/dL (3.2-4.8) Prothrombin Time 10.7 sec (9.3-11.8) Prothrombin Time INR 1.01 (0.9-1.15) Other Laboratory Tests 03/07/24 05:57 03/06/24 05:07 Brief Hx & Hospital Course: Flavia Eugene Toribio is a 68-year-old male with past medical history of COPD, current smoker, prostate cancer S/P proctectomy, myelodysplastic syndrome, schizophrenia, and anemia who comes in with complaints of generalized weakness. Patient was transfused 3 PRBC. Will be discharged home to followup with outpatient. Condition at Discharge: Poor Final Diagnosis/Problems List Symptomatic anemia- s/p 2 PRBC myelodysplastic syndrome- Cpont Outpatient followup Thrombocytopenia, COPD, Schizophrenia, Tobacco dependence, Counseling > 19 mins Goals of care >17 mins FULL CODE Discharge Disposition: Home Discharge Instruct/Medications Diet: Regular Activity: Light activity Follow Up/Referral: Dr. Haque Discharge Statement: "Patient was advised to return to the ER or call 911 if any headaches, dizziness, shortness of breath, chest pain, abdominal pain, bleeding, fevers, or worsening of medical condition. Patient was counseled about treatment plan, medications, possible side effects, patientverbalized understanding. All questions were answered to the best of my ability. This discharge took greater then 30 minutes in planning, reviewing documentation, counseling the patient, and discussing with other team members." ASSESSMENT ASSESSMENT Assessment Date of Service: Mar 07, 2024 Billing Provider: VENKAT SMILEY MD Common Visit Codes: [id number]-TVK/OBS DISCH DAY >30min VENKAT SMILEY MD Mar 07, 2024 17:35
== END 2024-03-07 20:36 | disposition home or self-care (01) | DRG 663 ==
LOC: ER 05:37 → OVERFLOW 10:01 → ER 10:07 → EAST 03-06 09:55
PROVIDERS: ADMIT Nurse Practitioner Family; ATTEND Internal Medicine
PROC: 30233N1 Transfusion of Nonautologous Red Blood Cells into Peripheral Vein, Percutaneous Approach (ICD-10-PCS; principal; 2024-03-05)
DX: D64.89 Other specified anemias (principal); D69.6 Thrombocytopenia, unspecified; D46.9 Myelodysplastic syndrome, unspecified; F20.9 Schizophrenia, unspecified; J44.9 Chronic obstructive pulmonary disease, unspecified; F17.210 Nicotine dependence, cigarettes, uncomplicated; Z79.899 Other long term (current) drug therapy
CPT/HCPCS: 36415; 80048; 80053; 85007; 85014; 85018; 85027; 85610; 86850; 86900; 86901; 86902; 86922; G0378

== ENCOUNTER 2024-03-09 15:58 | Inpatient (IN) | payer MEDICARE, MEDICAID ==
[~2024-03-09] VITALS: Ht 170.2 cm; Wt 79.5 kg
[~2024-03-09 15:58] MED LIST changes: -MIDO5TAB4 PO
--- NOTE | 2024-03-09 16:08 | ED.PDOC ---
SOB-HPI HPI Comments A 68 year old male brought in by EMS presents to the ED with a chief complaint of shortness of breath onset today. Patient was discharged yesterday from this hospital. He woke up today experiencing shortness of breath as well as RT leg swelling with pain. Upon EMS arrival, patient's temperature was 101.2 F, O2 sat was 97%, pulse 126, respiratory rate 35. Past medical history of COPD, anemia, cancer, schizophrenia. No other symptoms or modifying factors present at this time. Time Seen by MD: 15:58 Primary Care Provider: marlon Reviewed notes: Medications, Allergies Information Source: Patient, Emergency Med Personnel Mode of Arrival: EMS Severity: Moderate Timing: Minutes Duration: Since onset History of: COPD Associated Signs and Symptoms: Leg Swelling (RT leg) Radiation: No Radiation Past Medical History PAST MEDICAL HISTORY: Anemia, Cancer, COPD, Schizophrenia Surgical History: Unknown Family History Family History: Reviewed,noncontributory to illness, Unknown Social History Smoker: Cigarettes Alcohol: Denies ETOH Use Drugs: Denies Drug Use Lives In: Home Constitutional: denies: chills, diaphoresis, fatigue, fever, malaise, sweats, weakness, others EENTM: denies: blurred vision, double vision, ear bleeding, ear discharge, ear drainage, ear pain, ear ringing, eye pain, eye redness, hearing loss, mouth pain, mouth swelling, nasal discharge, nose bleeding, nose congestion, nose pain, photophobia, tearing, throat pain, throat swelling, voice changes, others Respiratory: reports: shortness of breath; denies: cough, hemoptysis, orthopnea, SOB at rest, SOB with excertion, stridor, wheezing, others Cardiovascular: denies: chest pain, dizzy spells, diaphoresis, Dyspnea on exertion, edema, irregular heart beat, left arm pain, lightheadedness, palpitations, PND, syncope, others Gastrointestinal: denies: abdomen distended, abdominal pain, blood streaked bowels, constipated, diarrhea, dysphagia, difficulty swallowing, hematemesis, melena, nausea, poor appetite, poor fluid intake, rectal bleeding, rectal pain, vomiting, others Genitourinary: denies: burning, dysuria, flank pain, frequency, hematuria, incontinence, penile discharge, penile sore, pain, testicle pain, testicle swelling, urgency, others Neurological: denies: dizziness, fainting, headache, left sided numbness, left sided weakness, numbness, paresthesia, pre-existing deficit, right sided numbness, right sided weakness, seizure, speech problems, tingling, tremors, weakness, others Musculoskeletal: reports: others (RT leg pain, RT leg swelling); denies: back pain, gout, joint pain, joint swelling, muscle pain, muscle stiffness, neck pain Integumetry: denies: bruises, change in color, change in hair/nails, dryness, laceration, lesions, lumps, rash, wounds, others Allergic/Immunocompromised: denies: Difficulty Healing, Frequent Infections, Hives, Itching, others Hematologic/Lymphatic: denies: anemia, blood clots, easy bleeding, easy bruising, swollen glands, others Endocrine: denies: excessive hunger, excessive sweating, excessive thirst, excessive urination, flushing, intolerance to cold, intolerance to heat, unexplained weight gain, unexplained weight loss, others Psychiatric: denies: anxiety, bipolar disorder, depression, hopeless, panic disorder, schizophrenia, sleepless, suicidal, others All Other Systems: Reviewed and Negative Physical Exam General Appearance: No Apparent Distress, Normal HEENT: Normal ENT Inspection, Pharynx Normal, TMs Normal Neck: Full Range of Motion, Non-Tender, Normal, Normal Inspection Respiratory: Chest Non-Tender, Lungs Clear, No Accessory Muscle Use, No Respiratory Distress, Normal Breath Sounds Cardiovascular: No Edema, No JVD, No Murmur, No Gallop, Normal Peripheral Pulses, Regular Rate/Rhythm Breast Exam: Deferred Gastrointestinal: No Organomegaly, Non Tender, No Pulsatile Mass, Normal Bowel Sounds, Soft Genitalia: Deferred Pelvic: Deferred Rectal: Deferred Extremities: No calf tenderness, Normal capillary refill, Normal inspection, Normal range of motion, Non-tender, No pedal edema Musculoskeletal : Apperance: Normal Neurologic: Alert, radio repairer domestic II-XII nml as Tested, No Motor Deficits, Normal Affect, Normal Mood, No Sensory Deficits Cerebellar Function: Normal Reflexes: Normal Skin: Dry, Normal Color, Warm Lymphatic: No Adenopathy Was a procedure done? Was a procedure done?: No Differential Dx Differential Diagnosis: CHF, COPD, Pneumonia, URI X-Ray, Labs, Meds, VS Vital Signs Date Time Temp Pulse Resp B/P (MAP) Pulse Ox O2 Delivery O2 Flow Rate FiO2 03/09/24 18:22 107 17 95 Room Air* 0 21 03/09/24 18:05 100.0 105 17 95/56 (69) 92 100.0 03/09/24 17:39 100.0 03/09/24 16:39 101.2 03/09/24 16:10 101.2 126 35 106/62 (77) 97 Lab Test 03/09/24 18:24 03/09/24 16:32 Range/Units Lactic Acid Level Pending 5.3 *H 0.4-2.0 mmol/L Troponin I High Sensitivity Pending 8 </=54 ng/L White Blood Count 7.0 # 4.4-10.8 10^3/uL Red Blood Count 3.27 L 4.5-5.90 10^6/uL Hemoglobin 9.8 #L 13.5-17.5 g/dL Hematocrit 28.9 #L 41.0-53.0 % Mean Corpuscular Volume 88.4 80.0-100.0 fL Mean Corpuscular Hemoglobin 29.8 28.0-32.0 pg Mean Corpuscular Hemoglobin Concent 33.8 32.0-36.0 g/dL Red Cell Distribution Width 16.1 H 11.8-14.3 % Platelet Count 50 L 140-450 10^3/uL Mean Platelet Volume 10.2 6.9-10.8 fL Neutrophils (%) (Auto) 37.0-80.0 % Lymphocytes (%) (Auto) 10.0-50.0 % Monocytes (%) (Auto) 0.0-12.0 % Basophils (%) (Auto) 0.0-2.0 % Neutrophils # (Auto) 1.6-8.6 10 ^3/uL Lymphocytes # (Auto) 0.4-5.4 10 ^3/uL Monocytes # (Auto) 0-1.3 10 ^3/uL Differential Total Cells Counted 100.0 100 Neutrophils % (Manual) 82 H 37.0-80.0 Band Neutrophils % (Manual) 10 Lymphocytes % (Manual) 7 L 10.0-50.0 Monocytes % (Manual) 1 0-12 Eosinophils % (Manual) 0 0-7 Basophils % (Manual) 0 0.0-2.0 Metamyelocytes % (manual) 0 Myelocytes % (Manual) 0 Promyelocytes % (Manual) 0 Blast Cells % (Manual) 0 Reactive Lymphocytes 0 Platelet Estimate Decreased Sodium Level 138 136-145 mmol/L Potassium Level 4.1 3.5-5.1 mmol/L Chloride Level 106 98-107 mmol/L Carbon Dioxide Level 21 20-31 mmol/L Anion Gap 11 5-15 Blood Urea Nitrogen 24 H 9-23 mg/dL Creatinine 1.32 H 0.700-1.30 mg/dL Glomerular Filtration Rate Calc 59 >90 mL/min BUN/Creatinine Ratio 18.2 10.0-20.0 Serum Glucose 124 H 74-106 mg/dL Calcium Level 9.8 8.7-10.4 mg/dL Total Bilirubin 1.5 H 0.2-1.0 mg/dL Aspartate Amino Transferase (AST) 29 13-40 U/L Alanine Aminotransferase (ALT) 52 H 7-40 U/L Alkaline Phosphatase 85 46-116 U/L B-Type Natriuretic Peptide 162.31 0-100 pg/mL Total Protein 7.6 5.7-8.2 g/dL Albumin 4.1 3.2-4.8 g/dL Current Medications Medications (Trade) Dose Ordered Sig/Fabricio Route Start Time Stop Time Status Last Admin Sodium Chloride 1,000 ml @ 1,000 mls/hr Q1H ONCE IV 03/09/24 16:15 03/09/24 17:14 DC 03/09/24 16:38 Ondansetron HCl (Zofran) 4 mg ONCE ONCE IV 03/09/24 16:15 03/09/24 16:16 DC 03/09/24 16:38 Cefepime HCl 50 ml @ 12.5 mls/hr ONCE ONCE IV 03/09/24 16:15 03/09/24 20:14 03/09/24 16:38 Acetaminophen (Tylenol Tablet) 650 mg ONCE ONCE PO 03/09/24 16:15 03/09/24 16:16 DC 03/09/24 16:[address] [address] Ph: [phone] DIAGNOSTIC IMAGING Diagnostic Imaging Report : [id number] Signed PATIENT: MEME ALONSO JR BACCT: [id number] UNIT: [id number] : 1955 LOC: ER ROOM / BED: / AGE / SEX: 68 / M ADM STATUS: REG ER SERVICE 1605 ORDERING PHYSICIAN: RAYRAY DOUGHERTY MD PROCEDURE(s): CXRP - CHEST PORTABLE REASON: fever, weakness ORDER NUMBER(s): [id number], ACCESSION NUMBER(s): [id number] XY CHEST PORTABLE, HISTORY: fever, weakness COMPARISON: XY CHEST PORTABLE on DOS: 02/20/24, XY CHEST PORTABLE on DOS: 02/13/24, XY CHEST PORTABLE on DOS: 12/04/23 XY CHEST PORTABLE on DOS: 02/20/24, XY CHEST PORTABLE on DOS: 02/13/24, XY CHEST PORTABLE on DOS: 12/04/23 TECHNICAL DATA: 1 view of the chest was obtained. FINDINGS: Lines and tubes: None Cardiomediastinal silhouette: normal Pulmonary vasculature: normal Lung expansion: normal Lung airspace: normal Lung interstitium: normal Pleura: normal Pneumothorax: no Bones: Unremarkable Other: no IMPRESSION: No acute intrathoracic abnormality. ATED BY: ANTHONY RAY MD DICTATED DATE/TIME: 03/09/241651 SIGNED BY: ANTHONY RAY MD SIGNED DATE/TIME: 03/09/241651 CC: Time of 1ST Reevaluation: 18:51 Reevaluation 1ST: Improved Patient Education/Counseling: Diagnosis, Treatment Family Education/Counseling: No Family Present Additional Information The following tests were ordered, and results were reviewed by me: BNP, CBC, CMP, LA W/ REFLEX, BLOOD CULTURE, TROP, TROP, TROP, COVID, INFLUENZA A&B, UA, XY CHEST I reviewed and agreed with the following test results read by other providers: JAYDA CHEST Independent Historian: EMS I discussed treatment and results with medical personnel, patient Departure 1 Departure Time of Disposition: 18:48 (Patient presents with fever hypotension and shortness of breath concerning for sepsis. Empirically covering the patient with antibiotics getting lactic acid and blood cultures. We will start patient on a slow fluid bolus and not the full 30 cc/kg as concern for volume overload in patient given his lower extremity swelling. Will admit patient for further workup. ) Impression: Primary Impression: Fever Qualified Codes: R50.9 - Fever, unspecified Additional Impressions: Weakness Swelling of right lower extremity Sepsis Qualified Codes: A41.9 - Sepsis, unspecified organism; R65.21 - Severe sepsis with septic shock; G72.81 - Critical illness myopathy Disposition: 09 ADMITTED INPATIENT Admit to: Med Surg Condition: Guarded Critical Care Note Critical Care Time?: Yes Critical care comment: Concern for sepsis Authorized and Performed by: Rayray Dougherty MD Total critical care time: Approximately 36 minutes Due to a high probability of clinically significant, life threatening deterioration, the patient required my highest level of preparedness to intervene emergently and I personally spent this critical care time directly and personally managing the patient. This critical care time included obtaining a history; examining the patient; pulse oximetry; ordering and review of studies; arranging urgent treatment with development of a management plan; evaluation of patient's response to treatment; frequent reassessment; and, discussions with other providers. This critical care time was performed to assess and manage the high probability of imminent, life-threatening deterioration that could result in multi-organ failure. It was exclusive of separately billable procedures and treating other patients and teaching time. Please see my other sections and the rest of the note for further information on patient assessment and treatment. Stability Stability form required: No Heart Score Heart Score: Heart Score Response (Comments) Value History N/A 0 EKG N/A 0 Age N/A 0 Risk Factors N/A 0 Troponin N/A 0 Total 0 I personally scribed for RAYRAY DOUGHERTY MD ([email or web address]) on 03/09/24 at 16:07. Electronically submitted by Capri Gibson ([email or web address]). I personally scribed for RAYRAY DOUGHERTY MD ([email or web address]) on 03/09/24 at 16:09. Electronically submitted by Capri Gibson ([email or web address]). I personally scribed for RAYRAY DOUGHERTY MD ([email or web address]) on 03/09/24 at 16:22. Electronically submitted by Capri Gibson ([email or web address]). I personally scribed for RAYRAY DOUGHERTY MD ([email or web address]) on 03/09/24 at 16:24. Electronically submitted by Capri Gibson ([email or web address]). I personally scribed for RAYRAY DOUGHERTY MD ([email or web address]) on 03/09/24 at 17:05. Electronically submitted by Capri Gibson ([email or web address]). RAYRAY DOUGHERTY MD Mar 09, 2024 16:07
[2024-03-09] MEDS: ONDANSETRON HCL 4 MG/2 ML VIAL IV ONE (16:38)
[2024-03-09] MEDS: SODIUM CHLORIDE 0.9% 1,000 ML IV ONE ×2 (16:38→19:12)
[2024-03-09] MEDS: CEFEPIME 2GM/50ML NS 50 ML IV ONE (16:38)
[2024-03-09] MEDS: ACETAMINOPHEN 325 MG TAB PO ONE (16:39)
--- NOTE | 2024-03-09 16:54 | DVH ---
XY CHEST PORTABLE, HISTORY: fever, weakness COMPARISON: XY CHEST PORTABLE on DOS: 02/20/24, XY CHEST PORTABLE on DOS: 02/13/24, XY CHEST PORTABLE on DOS: 12/04/23 XY CHEST PORTABLE on DOS: 02/20/24, XY CHEST PORTABLE on DOS: 02/13/24, XY CHEST PORTABLE on DOS: 12/03 TECHNICAL DATA: 1 view of the chest was obtained. FINDINGS: Lines and tubes: None Cardiomediastinal silhouette: normal Pulmonary vasculature: normal Lung expansion: normal Lung airspace: normal Lung interstitium: normal Pleura: normal Pneumothorax: no Bones: Unremarkable Other: no IMPRESSION: No acute intrathoracic abnormality.
[2024-03-09 17:03] LABS: Hematocrit 28.9 % (41.0-53.0); Hemoglobin 9.8 g/dL (13.5-17.5); Mean Corpuscular Hemoglobin 29.8 pg (28.0-32.0); Mean Corpuscular Hgb Conc. 33.8 g/dL (32.0-36.0); Mean Corpuscular Volume 88.4 fL (80.0-100.0); Platelet Count (auto) 50 10^3/uL (140-450); Red Blood Cells 3.27 10^6/uL (4.5-5.90); Red Cell Distribution Width 16.1 % (11.8-14.3)
[2024-03-09 17:13] LABS: Albumin 4.1 g/dL (3.2-4.8); Alkaline Phosphatase 85 U/L (46-116); Anion Gap 11 (5-15); Aspartate Aminotransferase 29 U/L (13-40); BUN/Creatinine Ratio 18.2 (10.0-20.0); Calcium 9.8 mg/dL (8.7-10.4); Carbon Dioxide 21 mmol/L (20-31); Chloride 106 mmol/L (98-107); Potassium 4.1 mmol/L (3.5-5.1); Sodium 138 mmol/L (136-145)
[2024-03-09 17:14] LABS: Total Protein 7.6 g/dL (5.7-8.2)
[2024-03-09 17:47] LABS: Alanine Aminotransferase 52 U/L (7-40); Bilirubin, Total 1.5 mg/dL (0.2-1.0); Blood Urea Nitrogen 24 mg/dL (9-23); Glucose 124 mg/dL (74-106)
[2024-03-09 17:49] LABS: Basophils % (manual) 0 (0.0-2.0); Blast Cells 0; Eosinophils % (manual) 0 (0-7); Metamyelocytes % 0; Myelocytes % 0; Promyelocytes % 0; Reactive Lymphocytes 0
[2024-03-09 17:59] LABS: Lactic Acid w/Reflex 5.3 mmol/L (0.4-2.0)
[2024-03-09 18:14] LABS: Band Neutrophils % (manual) 10; Lymphocytes % (manual) 7 (10.0-50.0); Monocytes % (manual) 1 (0-12); Platelet Estimate Decreased
[2024-03-09 18:22] VITALS: PULSE 107; RESP 17; O2SAT 95
[2024-03-09] MEDS: VANCOMYCIN 1GM/250ML KIT 200 ML IV ONE (18:56)
[2024-03-09 19:37] VITALS: PULSE 114; RESP 18; O2SAT 95
--- NOTE | 2024-03-09 19:39 | DVH ---
RIGHT LOWER EXTREMITY VENOUS DOPPLER ULTRASOUND CLINICAL HISTORY: right leg swelling COMPARISON: US RT LOWER DVT on DOS: 02/06/24 TECHNIQUE: Grayscale ultrasound with compression, Color Doppler flow and duplex spectral Doppler son ography of the right lower extremity femoral popliteal deep venous system is performed. FINDINGS: Right common femoral vein: Negative. Right greater saphenous vein: Negative. Right deep femoral vein: Negative. Right femoral vein: Negative. Right popliteal vein: Negative. Other: Subcutaneous edema noted. Visualized popliteal trifurcation and posterior tibial vein demonstr ate color flow. Multiple enlarged right groin lymph nodes are noted, the largest measuring approximat micky 5.4 cm in length. IMPRESSION: No sonographic evidence of deep venous thrombosis in the right lower extremity at this time. Right inguinal adenopathy.
[2024-03-09] MEDS: SODIUM CHLORIDE 0.9% 1,000 ML IV SCH (20:30)
[2024-03-09] MEDS ORDERED: VANCOMYCIN PER PHARMACY 0 MG IV SCH (20:30)
[2024-03-09] MEDS ORDERED: ONDANSETRON HCL 4 MG/2 ML VIAL IV PRN (20:30)
[2024-03-09] MEDS ORDERED: DOCUSATE SOD 100 MG CAP PO PRN (20:30)
[2024-03-09 21:00] LABS: COVID19 ANTIGEN SOFIA FIA NEGATIVE (NEGATIVE)
[2024-03-09 21:01] LABS: Rapid Influenza A Negative (Negative); Rapid Influenza B Negative (Negative)
[2024-03-09] MEDS: HYDROcodone-ACET 5/325MG TAB PO PRN (21:31)
--- NOTE | 2024-03-09 22:27 | DVHHP2 ---
History of Present Illness Reason for Visit: Sepsis, unspecified organism; History of Present Illness The patient is a 68-year-old male with past medical history of cancer, anemia, COPD, and schizophrenia who presented to [facility] ED with complaint of shortness of breaths. Patient reports symptoms progressively get worse with right leg swelling, painful right leg, fever, getting worse that prompted this visit. Patient was seen and evaluated in the ED, laboratory data shows WBC 7.0, hemoglobin 9.8, hematocrit 28.9, platelets 31214, sodium 138, potassium 4.1, BUN 24, creatinine 1.32, glucose 124, total bilirubin 1.5, troponin 12, lactic acid 5.3 trending down to 3.9, blood pressure 99/52, heart rate 108, temperature 100.0 F, O2 saturation 95% on oxygen. Patient was started on IV antibiotic regimen vancomycin, please see medication orders section in the computer. On my assessment, patient denied chest pain, no headache, no dizziness, no diaphoresis, currently on oxygen, no nausea, no vomiting, no chills. Patient was admitted for further evaluation and medical management. Past Medical History Anemia, Cancer, COPD, Schizophrenia Past Surgical History Unknown Family History Reviewed, noncontributory to the management of this case. Past Social History Patient lives at home, smokes cigarettes, denies alcohol or illicit drugs abuse. Review of Systems Constitutional: Yes: Weakness; No: Fever, Chills, Sweats, Malaise, Other Eyes: No: Pain, Vision change, Conjunctivae inflammation, Eyelid inflammation, Other, Redness ENT: No: Ear pain, Ear discharge, Nose pain, Nose discharge, Nose congestion, Mouth pain, Mouth swelling, Throat pain, Throat swelling, Other Respiratory: Shortness of breath; No: Cough, Dry, SOB with excertion, Wheezing, Hemoptysis, Pleuritic Pain, Sputum, Wheezing, Other Cardiovascular: No: Chest Pain, Palpitations, Orthopnea, Paroxysmal Noc. Dyspnea, Edema, Lt Headedness, Other Gastrointestinal: No: Nausea, Vomiting, Abdominal Pain, Diarrhea, Constipation, Melena, Hematochezia, Other Genitourinary: No Dysuria, No Frequency, No Incontinence, No Hematuria, No Retention, No Other Musculoskeletal: other (RT leg pain, RT leg swelling.); No: neck pain, shoulder pain, arm pain, back pain, hand pain, leg pain, foot pain Skin: No: Rash, Lesions, Jaundice, Bruising, Other Neurological: No: Weakness, Numbness, Incoordination, Change in speech, Confusion, Seizures, Other Allergies: Coded Allergies: NO KNOWN ALLERGIES (Unverified , 12/04/23) Medications Current Medications Medications Dose Ordered Sig/Fabricio Route Start Time Stop Time Status Last Admin Dose Admin Vancomycin HCl 0 ml @ 0 mls/hr UD IV 03/09/24 20:30 UNV Sodium Chloride 1,000 ml @ 60 mls/hr [id number] IV 03/09/24 20:30 03/09/24 20:30 60 MLS/HR Acetaminophen/ Hydrocodone Bitart 1 tab Q4HP PRN PO 03/09/24 20:30 03/09/24 21:31 1 TAB Ondansetron HCl 4 mg Q4HP PRN IV 03/09/24 20:30 Docusate Sodium 100 mg BIDPRN PRN PO 03/09/24 20:30 Acetaminophen 650 mg Q6HP PRN PO 03/09/24 20:30 Heparin Sodium (Porcine) 5,000 units Q12HR SC 03/09/24 22:00 UNV Exam Vital Signs Vital Signs Date Time Temp Pulse Resp B/P (MAP) Pulse Ox O2 Delivery O2 Flow Rate FiO2 03/09/24 20:00 109 21 99/52 (68) 94 03/09/24 19:37 Room Air* 0 21 03/09/24 18:05 100.0 100.0 General Appearance: Alert, Oriented X3, Cooperative, No acute distress HEENT: Atraumatic, PERRLA, EOMI, Mucous membr. moist/pink Respiratory: Clear to auscultation, Normal air movement Cardiovascular: Normal S1, Normal S2, No murmurs Abdominal: Normal bowel sounds, Soft, No tenderness, No hepatospenomegaly, No masses Extremities: No clubbing, No cyanosis, No edema, Normal pulses, No tenderness/swelling Skin: No rashes, No breakdown, No significant lesion Neuro: Normal speech, Normal tone, Sensation intact, Cranial nerves 3-12 NL, Reflexes 2+, Other (Generalized weakness) Psych/Mental Status: Mental status NL, Mood NL Labs/Xrays Labs Test 03/09/24 20:09 03/09/24 19:55 03/09/24 18:24 03/09/24 16:32 Range/Units Troponin I High Sensitivity 12 </=54 ng/L Influenza Type A Antigen Negative Negative Influenza Type B Antigen Negative Negative SARS-CoV-2 Antigen (Rapid) Negative NEGATIVE Lactic Acid Level 3.9 *H 0.4-2.0 mmol/L White Blood Count 7.0 # 4.4-10.8 10^3/uL Red Blood Count 3.27 L 4.5-5.90 10^6/uL Hemoglobin 9.8 #L 13.5-17.5 g/dL Hematocrit 28.9 #L 41.0-53.0 % Mean Corpuscular Volume 88.4 80.0-100.0 fL Mean Corpuscular Hemoglobin 29.8 28.0-32.0 pg Mean Corpuscular Hemoglobin Concent 33.8 32.0-36.0 g/dL Red Cell Distribution Width 16.1 H 11.8-14.3 % Platelet Count 50 L 140-450 10^3/uL Mean Platelet Volume 10.2 6.9-10.8 fL Neutrophils (%) (Auto) 37.0-80.0 % Lymphocytes (%) (Auto) 10.0-50.0 % Monocytes (%) (Auto) 0.0-12.0 % Basophils (%) (Auto) 0.0-2.0 % Neutrophils # (Auto) 1.6-8.6 10 ^3/uL Lymphocytes # (Auto) 0.4-5.4 10 ^3/uL Monocytes # (Auto) 0-1.3 10 ^3/uL Differential Total Cells Counted 100.0 100 Neutrophils % (Manual) 82 H 37.0-80.0 Band Neutrophils % (Manual) 10 Lymphocytes % (Manual) 7 L 10.0-50.0 Monocytes % (Manual) 1 0-12 Eosinophils % (Manual) 0 0-7 Basophils % (Manual) 0 0.0-2.0 Metamyelocytes % (manual) 0 Myelocytes % (Manual) 0 Promyelocytes % (Manual) 0 Blast Cells % (Manual) 0 Reactive Lymphocytes 0 Platelet Estimate Decreased Sodium Level 138 136-145 mmol/L Potassium Level 4.1 3.5-5.1 mmol/L Chloride Level 106 98-107 mmol/L Carbon Dioxide Level 21 20-31 mmol/L Anion Gap 11 5-15 Blood Urea Nitrogen 24 H 9-23 mg/dL Creatinine 1.32 H 0.700-1.30 mg/dL Glomerular Filtration Rate Calc 59 >90 mL/min BUN/Creatinine Ratio 18.2 10.0-20.0 Serum Glucose 124 H 74-106 mg/dL Calcium Level 9.8 8.7-10.4 mg/dL Total Bilirubin 1.5 H 0.2-1.0 mg/dL Aspartate Amino Transferase (AST) 29 13-40 U/L Alanine Aminotransferase (ALT) 52 H 7-40 U/L Alkaline Phosphatase 85 46-116 U/L B-Type Natriuretic Peptide 162.31 0-100 pg/mL Total Protein 7.6 5.7-8.2 g/dL Albumin 4.1 3.2-4.8 g/dL PATIENT: MEME ALONSO JR BACCT: [id number] UNIT: [id number] : 1955 LOC: ER ROOM / BED: / AGE / SEX: 68 / M ADM STATUS: REG ER SERVICE 48 ORDERING PHYSICIAN: RAYRAY PAPPAS MD PROCEDURE(s): RLDVT - RT Lower DVT REASON: right leg swelling ORDER NUMBER(s): [id number], ACCESSION NUMBER(s): [id number] RIGHT LOWER EXTREMITY VENOUS DOPPLER ULTRASOUND CLINICAL HISTORY: right leg swelling COMPARISON: US RT LOWER DVT on DOS: 02/06/24 TECHNIQUE: Grayscale ultrasound with compression, Color Doppler flow and duplex spectral Doppler sonography of the right lower extremity femoral popliteal deep venous system is performed. FINDINGS: Right common femoral vein: Negative. Right greater saphenous vein: Negative. Right deep femoral vein: Negative. Right femoral vein: Negative. Right popliteal vein: Negative. Other: Subcutaneous edema noted. Visualized popliteal trifurcation and posterior tibial vein demonstrate color flow. Multiple enlarged right groin lymph nodes are noted, the largest measuring approximately 5.4 cm in length. IMPRESSION: No sonographic evidence of deep venous thrombosis in the right lower extremity at this time. Right inguinal adenopathy. ORDERING PHYSICIAN: RAYRAY PAPPAS MD PROCEDURE(s): CXRP - CHEST PORTABLE REASON: fever, weakness ORDER NUMBER(s): [id number], ACCESSION NUMBER(s): [id number] XY CHEST PORTABLE, HISTORY: fever, weakness COMPARISON: XY CHEST PORTABLE on DOS: 02/20/24, XY CHEST PORTABLE on DOS: 02/13/24, XY CHEST PORTABLE on DOS: 12/04/23 XY CHEST PORTABLE on DOS: 02/20/24, XY CHEST PORTABLE on DOS: 02/13/24, XY CHEST PORTABLE on DOS: 12/04/23 TECHNICAL DATA: 1 view of the chest was obtained. FINDINGS: Lines and tubes: None Cardiomediastinal silhouette: normal Pulmonary vasculature: normal Lung expansion: normal Lung airspace: normal Lung interstitium: normal Pleura: normal Pneumothorax: no Bones: Unremarkable Other: no IMPRESSION: No acute intrathoracic abnormality. Assessment/Plan Assessment/Plan Fever, unspecified Generalized weakness Thrombocytopenia Acute renal injury Swelling of right lower extremity Sepsis, unspecified organism Severe sepsis with septic shock Critical illness myopathy Plan 1. Admit to telemetry unit 2. Breathing treatment 3. Pain control management 4. IV antibiotic management 5. Management of fluids and electrolytes 6. Consultation for hospitalist 7. Diagnostic test chest x-ray 8. DVT prophylaxis-on SCDs 9. Repeat labs CBC, CMP in a.m. 10. Home medication reviewed and reconciled 11. Continue with current medical management 12. Treatment plan discussed with patient and RN. Patient verbalized understanding. Plan discussed with: Patient, Other (RN) My Orders Orders - ROSALIO MCGINNIS DNP Procedure Category Date Status Time Vancomycin Per PHA 03/09/24 Pending Pharmacy 20:30 Type And Screen BBK 03/09/24 In Process 20:24 *[facility] CONS 03/09/24 Transmitted [place] 20:24 Allergies KATIA 03/09/24 In Process 20:24 Code Status CODE 03/09/24 Transmitted 20:24 Sodium Chloride 0.9% PHA 03/09/24 In Process 20:30 Oxygen Per Hour RT 03/09/24 Transmitted 20:24 Hydrocodone-Acet PHA 03/09/24 In Process 5/325mg Tab ([place] 20:30 Ondansetron Hcl PHA 03/09/24 In Process (Zofran) 20:30 Docusate Sodium PHA 03/09/24 In Process Capsule (Colace 20:30 Complete Blood Count LAB 03/10/24 Verified 04:00 Comprehensive LAB 03/10/24 Verified Metabolic Panel 04:00 Cardiac DIET 03/10/24 Transmitted Diet-2gna,Lofat,Lochol Breakfast Condition: Serious [facility] 03/09/24 In Process 20:24 Acetaminophen Tablet [facility] 03/09/24 In Process (Tylenol Tablet) 20:30 Bedrest With Bathroom KATIA 03/09/24 In Process Privileg 20:24 Heparin Sodium [facility] 03/09/24 Pending (Porcine) 22:00 Problem List: (1) Fever, unspecified (2) Thrombocytopenia (3) Acute renal injury (4) Sepsis, unspecified organism (5) Generalized weakness (6) Swelling of right lower extremity (7) Severe sepsis with septic shock (8) Critical illness myopathy Date of Service: Mar 09, 2024 Billing Provider: ROSALIO MCGINNIS DNP Common Visit Codes: [id number] INP/OBS CARE (HIGH) ROSALIO MCGINNIS DNP Mar 09, 2024 22:27
[2024-03-09] MEDS ORDERED: NITROGLYCERIN 0.4 MG SL TAB SL PRN (22:30)
[2024-03-09] MEDS ORDERED: MORPHINE SULFATE INJ 2 MG/ml SYRG IV PRN (22:30)
[2024-03-09] MEDS: SODIUM CHLORIDE 0.9% 500 ML IV ONE (23:38)
[2024-03-10] MEDS: MIDODRINE HCL 10 MG TAB PO ONE (00:22)
[2024-03-10] MEDS: ACETAMINOPHEN 325 MG TAB PO PRN (05:42)
[2024-03-10] MEDS: MIDODRINE HCL 10 MG TAB PO SCH (06:22)
[2024-03-10 06:32] LABS: Hematocrit 24.5 % (41.0-53.0); Hemoglobin 8.2 g/dL (13.5-17.5); Mean Corpuscular Hemoglobin 29.6 pg (28.0-32.0); Mean Corpuscular Hgb Conc. 33.7 g/dL (32.0-36.0); Platelet Count (auto) 32 10^3/uL (140-450); Red Blood Cells 2.78 10^6/uL (4.5-5.90); Red Cell Distribution Width 16.4 % (11.8-14.3); White Blood Cell 6.6 10^3/uL (4.4-10.8)
[2024-03-10 06:41] LABS: Basophils % (manual) 0 (0.0-2.0); Blast Cells 0; Metamyelocytes % 0; Myelocytes % 0; Promyelocytes % 0; Reactive Lymphocytes 0
[2024-03-10 06:43] LABS: Albumin 3.4 g/dL (3.2-4.8); Alkaline Phosphatase 68 U/L (46-116); Anion Gap 7 (5-15); Aspartate Aminotransferase 30 U/L (13-40); BUN/Creatinine Ratio 25.5 (10.0-20.0); Calcium 8.8 mg/dL (8.7-10.4); Carbon Dioxide 21 mmol/L (20-31); Potassium 3.7 mmol/L (3.5-5.1); Sodium 137 mmol/L (136-145); Total Protein 6.5 g/dL (5.7-8.2)
[2024-03-10] MEDS ORDERED: VANCOMYCIN 750MG VIAL 750 MG in D5W 5% 100 ML IV SCH (07:00)
[2024-03-10 07:04] LABS: Alanine Aminotransferase 48 U/L (7-40); Bilirubin, Total 1.2 mg/dL (0.2-1.0); Blood Urea Nitrogen 25 mg/dL (9-23); Chloride 109 mmol/L (98-107); Glucose 114 mg/dL (74-106)
[2024-03-10 07:53] LABS: Lactic Acid w/Reflex 2.1 mmol/L (0.4-2.0)
[2024-03-10 07:58] LABS: Band Neutrophils % (manual) 5; Eosinophils % (manual) 5 (0-7); Lymphocytes % (manual) 8 (10.0-50.0); Monocytes % (manual) 15 (0-12)
[2024-03-10 08:00] LABS: Platelet Estimate Decrea
[2024-03-10 09:04] VITALS: PULSE 119; RESP 20; O2SAT 93
[2024-03-10] MEDS: HEPARIN SODIUM (PORCINE) 5000 UNITS/ML 1ML VIAL SC SCH (10:00)
--- NOTE | 2024-03-10 10:11 | DVHINCON2 ---
Date of service: Mar 10, 2024 Referring Physician Michele Mcneal, nurse practitioner Reason for Consultation Acute kidney injury History of Present Illness Patient is a 68-year-old male with past medical history of Anemia, Cancer, COPD, and Schizophrenia is admitted for shortness of breath. On admission patient found to have elevated creatinine nephrology is consulted for acute kidney injury n Past Medical History PAST MEDICAL HISTORY: Anemia, Cancer, COPD, Schizophrenia Past Surgical History Surgical History: Unknown Allergies: Coded Allergies: NO KNOWN ALLERGIES (Unverified , 12/04/23) Home Meds Active Scripts Hydrocodone-Acetaminophen (Hydrocodone Bitartrate/AC 10-325 mg) 1 Tab Tab, 1 TAB PO QID PRN, #30 TAB Prov:SHARON LUEVANO MD 02/23/24 Hydrocortone (Hydrocortisone 1%) 1 Applic Ap, 1 APPLIC TOP BID, #30 GRAMS Prov:JUAN ROGERS MD 02/08/24 Reported Medications Albuterol Sulfate (Albuterol Sulfate Hfa) 108 Mcg/Act Aer, INH 01/30/24 Midodrine HCl (Midodrine Hydrochloride) 5 Mg Tab, 1 TAB PO TID 01/30/24 Risperidone (Risperidone) 2 Mg Tab, 2 MG PO BID, TAB 12/05/23 Nicotine (Nicoderm 21MG/24HR) 1 Patch Ph, 1 PATCH TOP DAILY, #28 PATCH 1 Refill 12/05/23 Mirtazapine (Mirtazapine Oral Disintegrating Tablet) 45 Mg Tab, 1 TAB PO QPM, #30 TAB 1 Refill 12/05/23 Melatonin (KP MELATONIN) 3 Mg Tab, 3 MG PO, TAB 12/05/23 Leuprolide Acetate (3 Month) (Lupron Depot) 22.5 Mg Inj, 22.5 MG IM, INJ 12/05/23 Gabapentin (Gabapentin) 600 Mg Tab, 600 MG PO BID, TAB 12/05/23 Folic Acid (Folic Acid) 1 Mg Tab, 1 MG PO DAILY for 30 Days, MG 12/05/23 Fluticasone Furoate (Inhalatio (Arnuity Ellipta) 200 Mcg/Act Inh, 200 MCG IN, INHALER 12/05/23 Atorvastatin Calcium (ATORVASTATIN CALCIUM) 40 Mg Tab, 1 TAB PO DAILY, #30 TAB 5 Refills 12/05/23 Albuterol Sulfate (VENTOLIN MDI) 90 Mcg Ih, 90 MCG IN, INH 12/05/23 Discontinued Scripts Midodrine Hcl (Midodrine Hcl) 5 Mg Tab, 5 MG PO TID for 30 Days, #90 TAB Prov:YOANDY SALAS SAW RUNNER 01/18/24 Current Medications Current Medications Medications (Trade) Dose Ordered Sig/Fabricio Route PRN Reason Start Time Stop Time Status Last Admin Vancomycin HCl 0 ml @ 0 mls/hr UD IV 03/09/24 20:30 Sodium Chloride 1,000 ml @ 60 mls/hr [id number] IV 03/09/24 20:30 03/09/24 20:30 Acetaminophen/ Hydrocodone Bitart (Hope 5/325MG Tab) 1 tab Q4HP PRN PO MODERATE PAIN (4-6 PAIN SCALE) 03/09/24 20:30 03/10/24 05:42 Ondansetron HCl (Zofran) 4 mg Q4HP PRN IV NAUSEA / VOMITING 03/09/24 20:30 Docusate Sodium (Colace Capsule) 100 mg BIDPRN PRN PO FOR CONSTIPATION 03/09/24 20:30 Acetaminophen (Tylenol Tablet) 650 mg Q6HP PRN PO PAIN SCALE 1-3 OR TEMP>100.4 03/09/24 20:30 03/10/24 05:42 Heparin Sodium (Porcine) 5,000 units Q12HR SC 03/09/24 22:00 UNV Nitroglycerin (Ntrostat Sublingual) 0.4 mg Q5MINP PRN SL FOR CHEST PAIN 03/09/24 22:30 Morphine Sulfate 2 mg Q30M PRN IV FOR CHEST PAIN 03/09/24 22:30 Midodrine (Proamatine Tablet) 10 mg TID@0600,1200,1800 PO 03/10/24 06:00 03/10/24 12:09 Vancomycin HCl 750 mg/Dextrose 100 ml @ 100 mls/hr O IV 03/10/24 07:00 03/10/24 08:00 Cancel Vancomycin HCl 250 ml @ 250 mls/hr Q18H IV 03/10/24 13:00 Family History: Diabetes mellitus G8 MOTHER FH: heart attack G8 FATHER, Review of Systems All 12 item review of systems reviewed with the patient nonsignificant except what is mentioned in the history of present illness H&P Exam Vital Signs/I&O Vital Sign Date Time Temp Pulse Resp B/P (MAP) Pulse Ox O2 Delivery O2 Flow Rate FiO2 03/10/24 09:04 119 20 93 Room Air* 0 21 03/10/24 09:02 106/60 (75) 03/10/24 06:50 98.2 Intake and Output 03/09/24 03/10/24 19:00 07:00 Intake Total 1050 ml 800 ml Output Total 700 ml Balance 1050 ml 100 ml Intake Oral 200 ml IV Total 1050 ml 600 ml Output Urine Total 700 ml Physical Exam Patient is awake alert Lungs clear to auscultation bilaterally Cardiac exam is tachycardic GI soft nontender was normal Extremities tender swelling right lower extremity Neuro nonfocal Labs/Diagnostic Data Labs/Diagnostic Data Laboratory Tests Test 03/10/24 08:25 03/10/24 05:44 03/10/24 00:26 03/09/24 20:09 Range/Units Lactic Acid Level 1.8 2.1 *H 1.6 0.4-2.0 mmol/L White Blood Count 6.6 4.4-10.8 10^3/uL Red Blood Count 2.78 L 4.5-5.90 10^6/uL Hemoglobin 8.2 #L 13.5-17.5 g/dL Hematocrit 24.5 #L 41.0-53.0 % Mean Corpuscular Volume 88.0 80.0-100.0 fL Mean Corpuscular Hemoglobin 29.6 28.0-32.0 pg Mean Corpuscular Hemoglobin Concent 33.7 32.0-36.0 g/dL Red Cell Distribution Width 16.4 H 11.8-14.3 % Platelet Count 32 L 140-450 10^3/uL Mean Platelet Volume 9.0 6.9-10.8 fL Neutrophils (%) (Auto) 37.0-80.0 % Lymphocytes (%) (Auto) 10.0-50.0 % Monocytes (%) (Auto) 0.0-12.0 % Eosinophils (%) (Auto) 0.0-7.0 % Basophils (%) (Auto) 0.0-2.0 % Neutrophils # (Auto) 1.6-8.6 10 ^3/uL Lymphocytes # (Auto) 0.4-5.4 10 ^3/uL Monocytes # (Auto) 0-1.3 10 ^3/uL Eosinophils # (Auto) 0-0.8 10 ^3/uL Basophils # (Auto) 0-0.2 10 ^3/uL Differential Total Cells Counted 100.0 100 Neutrophils % (Manual) 67 37.0-80.0 Band Neutrophils % (Manual) 5 Lymphocytes % (Manual) 8 L 10.0-50.0 Monocytes % (Manual) 15 H 0-12 Eosinophils % (Manual) 5 0-7 Basophils % (Manual) 0 0.0-2.0 Metamyelocytes % (manual) 0 Myelocytes % (Manual) 0 Promyelocytes % (Manual) 0 Blast Cells % (Manual) 0 Nucleated Red Blood Cells % Reactive Lymphocytes 0 Platelet Estimate Decrea Large Platelets Sodium Level 137 136-145 mmol/L Potassium Level 3.7 3.5-5.1 mmol/L Chloride Level 109 H 98-107 mmol/L Carbon Dioxide Level 21 20-31 mmol/L Anion Gap 7 5-15 Blood Urea Nitrogen 25 H 9-23 mg/dL Creatinine 0.98 0.700-1.30 mg/dL Glomerular Filtration Rate Calc 85 >90 mL/min BUN/Creatinine Ratio 25.5 H 10.0-20.0 Serum Glucose 114 H 74-106 mg/dL Calcium Level 8.8 8.7-10.4 mg/dL Phosphorus Level 2.2 L 2.4-5.1 mg/dL Total Bilirubin 1.2 H 0.2-1.0 mg/dL Aspartate Amino Transferase (AST) 30 13-40 U/L Alanine Aminotransferase (ALT) 48 H 7-40 U/L Alkaline Phosphatase 68 46-116 U/L Total Protein 6.5 5.7-8.2 g/dL Albumin 3.4 3.2-4.8 g/dL Troponin I High Sensitivity 12 </=54 ng/L Test 03/09/24 19:55 03/09/24 18:24 03/09/24 16:32 Range/Units Influenza Type A Antigen Negative Negative Influenza Type B Antigen Negative Negative SARS-CoV-2 Antigen (Rapid) Negative NEGATIVE Lactic Acid Level 3.9 *H 5.3 *H 0.4-2.0 mmol/L Troponin I High Sensitivity 12 8 </=54 ng/L White Blood Count 7.0 # 4.4-10.8 10^3/uL Red Blood Count 3.27 L 4.5-5.90 10^6/uL Hemoglobin 9.8 #L 13.5-17.5 g/dL Hematocrit 28.9 #L 41.0-53.0 % Mean Corpuscular Volume 88.4 80.0-100.0 fL Mean Corpuscular Hemoglobin 29.8 28.0-32.0 pg Mean Corpuscular Hemoglobin Concent 33.8 32.0-36.0 g/dL Red Cell Distribution Width 16.1 H 11.8-14.3 % Platelet Count 50 L 140-450 10^3/uL Mean Platelet Volume 10.2 6.9-10.8 fL Neutrophils (%) (Auto) 37.0-80.0 % Lymphocytes (%) (Auto) 10.0-50.0 % Monocytes (%) (Auto) 0.0-12.0 % Basophils (%) (Auto) 0.0-2.0 % Neutrophils # (Auto) 1.6-8.6 10 ^3/uL Lymphocytes # (Auto) 0.4-5.4 10 ^3/uL Monocytes # (Auto) 0-1.3 10 ^3/uL Differential Total Cells Counted 100.0 100 Neutrophils % (Manual) 82 H 37.0-80.0 Band Neutrophils % (Manual) 10 Lymphocytes % (Manual) 7 L 10.0-50.0 Monocytes % (Manual) 1 0-12 Eosinophils % (Manual) 0 0-7 Basophils % (Manual) 0 0.0-2.0 Metamyelocytes % (manual) 0 Myelocytes % (Manual) 0 Promyelocytes % (Manual) 0 Blast Cells % (Manual) 0 Reactive Lymphocytes 0 Platelet Estimate Decreased Sodium Level 138 136-145 mmol/L Potassium Level 4.1 3.5-5.1 mmol/L Chloride Level 106 98-107 mmol/L Carbon Dioxide Level 21 20-31 mmol/L Anion Gap 11 5-15 Blood Urea Nitrogen 24 H 9-23 mg/dL Creatinine 1.32 H 0.700-1.30 mg/dL Glomerular Filtration Rate Calc 59 >90 mL/min BUN/Creatinine Ratio 18.2 10.0-20.0 Serum Glucose 124 H 74-106 mg/dL Calcium Level 9.8 8.7-10.4 mg/dL Total Bilirubin 1.5 H 0.2-1.0 mg/dL Aspartate Amino Transferase (AST) 29 13-40 U/L Alanine Aminotransferase (ALT) 52 H 7-40 U/L Alkaline Phosphatase 85 46-116 U/L B-Type Natriuretic Peptide 162.31 0-100 pg/mL Total Protein 7.6 5.7-8.2 g/dL Albumin 4.1 3.2-4.8 g/dL Assessment Acute kidney injury secondary hemodynamic mediated Septic shock Hypotension COPD Schizophrenia Anemia Thrombocytopenia Right lower extremity cellulitis Recommendations Closely monitor fluid and electrolytes Avoid nephrotoxic medications Magana catheter Strict I&Os Check urinalysis urine electrolytes I agree with IV fluid hydration IV antibiotics IV pressors for blood pressure support Hematology consult Continue to follow Patient seen and examined by myself. I discussed my plan of care with the patient and primary nurse At the bedside I would like to thank Michele for the consult, will follow up Plan discussed with: Patient YOKASTA PANTOJA MD Mar 10, 2024 10:11
[2024-03-10] MEDS: VANCOMYCIN 1GM/250ML KIT 250 ML IV SCH (13:51)
--- NOTE | 2024-03-10 14:47 | DVHPN2 ---
Reviewed: Care Plan, H&P, Labs, Medications, Previous Orders, Radiology Changes from previous H/P or p: No Changes Eyes: No Pain, No Vision change, No Conjunctivae inflammation, No Eyelid inflammation, No Other, No Redness ENT: No Ear pain, No Ear discharge, No Nose pain, No Nose discharge, No Nose congestion, No Mouth pain, No Mouth swelling, No Throat pain, No Throat swelling, No Other Cardiovascular: No Chest Pain, No Palpitations, No Orthopnea, No Paroxysmal Noc. Dyspnea, No Edema, No Lt Headedness, No Other Respiratory: No Cough, No Dry; Shortness of breath; No SOB with excertion, No Wheezing, No Hemoptysis, No Pleuritic Pain, No Sputum, No Other Gastrointestinal: No Nausea, No Vomiting, No Abdominal Pain, No Diarrhea, No Constipation, No Melena, No Hematochezia, No Other Genitourinary: No Dysuria, No Frequency, No Incontinence, No Hematuria, No Retention, No Other Musculoskeletal: other (RT leg pain, RT leg swelling.); No neck pain, No shoulder pain, No arm pain, No back pain, No hand pain, No leg pain, No foot pain Skin: No Rash, No Lesions, No Jaundice, No Bruising, No Other Objective Vitals Vital Signs Date Time Temp Pulse Resp B/P (MAP) Pulse Ox O2 Delivery O2 Flow Rate FiO2 03/10/24 14:31 125 23 110/68 (82) 92 03/10/24 09:04 Room Air* 0 21 03/10/24 06:50 98.2 Intake/Output Intake and Output 03/10/24 07:00 Intake Total 1850 ml Output Total 700 ml Balance 1150 ml Intake Oral 200 ml IV Total 1650 ml Output Urine Total 700 ml Medications Current Medications Medications Dose Ordered Sig/Fabricio Route Start Time Stop Time Status Last Admin Dose Admin Vancomycin HCl 0 ml @ 0 mls/hr UD IV 03/09/24 20:30 Sodium Chloride 1,000 ml @ 60 mls/hr [id number] IV 03/09/24 20:30 03/10/24 13:10 60 MLS/HR Acetaminophen/ Hydrocodone Bitart 1 tab Q4HP PRN PO 03/09/24 20:30 03/10/24 05:42 1 TAB Ondansetron HCl 4 mg Q4HP PRN IV 03/09/24 20:30 Docusate Sodium 100 mg BIDPRN PRN PO 03/09/24 20:30 Acetaminophen 650 mg Q6HP PRN PO 03/09/24 20:30 03/10/24 05:42 650 MG Heparin Sodium (Porcine) 5,000 units Q12HR SC 03/09/24 22:00 UNV Nitroglycerin 0.4 mg Q5MINP PRN SL 03/09/24 22:30 Morphine Sulfate 2 mg Q30M PRN IV 03/09/24 22:30 Midodrine 10 mg TID@0600,1200,1800 PO 03/10/24 06:00 03/10/24 12:09 10 MG Vancomycin HCl 750 mg/Dextrose 100 ml @ 100 mls/hr O IV 03/10/24 07:00 03/10/24 08:00 Cancel Vancomycin HCl 250 ml @ 250 mls/hr Q18H IV 03/10/24 13:00 03/10/24 13:51 250 MLS/HR Laboratory Results Laboratory Tests 03/10/24 05:44 Chemistry Test 03/09/24 16:32 03/10/24 05:44 Albumin 4.1 g/dL (3.2-4.8) 3.4 g/dL (3.2-4.8) Calcium Level 9.8 mg/dL (8.7-10.4) 8.8 mg/dL (8.7-10.4) Total Protein 7.6 g/dL (5.7-8.2) 6.5 g/dL (5.7-8.2) Phosphorus Level 2.2 mg/dL (2.4-5.1) L Cardiac Markers Test 03/09/24 16:32 B-Type Natriuretic Peptide 162.31 pg/mL (0-100) LFT Test 03/09/24 16:32 03/10/24 05:44 Alanine Aminotransferase (ALT) 52 U/L (7-40) H 48 U/L (7-40) H Alkaline Phosphatase 85 U/L (46-116) 68 U/L (46-116) Aspartate Amino Transferase (AST) 29 U/L (13-40) 30 U/L (13-40) Total Bilirubin 1.5 mg/dL (0.2-1.0) H 1.2 mg/dL (0.2-1.0) H Labs and/or images reviewed: Labs reviewed by me, Image(s) reviewed by me Assessment/Plan Assessment/Plan Chronic anemia myelodysplastic syndrome- Thrombocytopenia, COPD, Schizophrenia, Tobacco dependence, Counseling > 19 mins Goals of care >17 mins FULL CODE Time spent 45 minutes Condition guarded Patient is full code Time spent 20 minutes Plan discussed with: Patient Date of Service: Mar 10, 2024 Billing Provider: SHARON LUEVANO MD Common Visit Codes: [id number] INP/OBS CARE(HIGH) SHARON LUEVANO MD Mar 10, 2024 14:47
[2024-03-10 17:50] VITALS: BP 113/63; PULSE 128; RESP 18; TEMP 102.9; O2SAT 94
[2024-03-10] MEDS ORDERED: ASPI1TAB20 PO (19:57)
[2024-03-10 20:00] VITALS: PULSE 108; RESP 20; O2SAT 95
[2024-03-10 21:00] VITALS: BP 92/50; PULSE 103; RESP 19; TEMP 98.7; O2SAT 95
[2024-03-10 23:12] LABS: Urine Bacteria FEW /hpf (None Seen); Urine Blood 2+ /uL (Negative); Urine Clarity Ex.Turbid (Clear); Urine Color Orange (Yellow); Urine Protein, UAD 2+ (Negative); Urine Specific Gravity 1.025 (1.001-1.035); Urine Squamous Epithelial Cell FEW /hpf (<5); Urine Urobilinogen 4 mg/dL (Negative); Urine WBC 29 /hpf (0 - 3)
[2024-03-10 23:26] LABS: Amphetamine Screen, Urine Neg (NEGATIVE); Barbiturate Scree,Urine Neg (NEGATIVE); Benzodiazephine Screen, Urine Neg (NEGATIVE); Cocaine Screen, Urine Neg (NEGATIVE); Creatinine, Urine 196.38 mg/dL (30.0-125.0); Opiate Scree,Urine Neg (NEGATIVE)
[2024-03-10 23:27] LABS: Cannabinoid Screen, Urine Pos (NEGATIVE); Phencyclidine Screen, Urine Neg (NEGATIVE)
[2024-03-10 23:30] LABS: Urine Protein/Creatinine Ratio 1.29
[2024-03-10 23:32] LABS: Protein, Urine 253.3 mg/dL (1-14)
[2024-03-11] VITALS (11 sets, daily range): BP systolic 90–124; BP diastolic 41–63; PULSE 92–114; RESP 17–18; TEMP 97.9–100.9; O2SAT 93–98
[2024-03-11 06:15] LABS: Hematocrit 21.3 % (41.0-53.0); Hemoglobin 7.3 g/dL (13.5-17.5); Mean Corpuscular Hemoglobin 30.1 pg (28.0-32.0); Mean Corpuscular Hgb Conc. 34.3 g/dL (32.0-36.0); Mean Corpuscular Volume 87.7 fL (80.0-100.0); Platelet Count (auto) 32 10^3/uL (140-450); Red Blood Cells 2.43 10^6/uL (4.5-5.90); White Blood Cell 8.2 10^3/uL (4.4-10.8)
[2024-03-11 06:32] LABS: Basophils % (manual) 0 (0.0-2.0); Blast Cells 0; Metamyelocytes % 0; Myelocytes % 0; Promyelocytes % 0; Reactive Lymphocytes 0
[2024-03-11 09:24] LABS: Hepatitis B Surface Antigen Negative (Negative); Hepatitis C Antibody Negative (Negative)
[2024-03-11] MEDS: FUROSEMIDE 40 MG/4 ML VIAL IV ONE (12:15)
--- NOTE | 2024-03-11 13:01 | DVHPN2 ---
Subjective Seen and examined at bedside. Will transfuse 1 PRBC tomorrow. Monitor H&H Reviewed: Care Plan, H&P, Labs, Medications, Previous Orders, Radiology Changes from previous H/P or p: No Changes Eyes: No Pain, No Vision change, No Conjunctivae inflammation, No Eyelid inflammation, No Other, No Redness ENT: No Ear pain, No Ear discharge, No Nose pain, No Nose discharge, No Nose congestion, No Mouth pain, No Mouth swelling, No Throat pain, No Throat swelling, No Other Cardiovascular: No Chest Pain, No Palpitations, No Orthopnea, No Paroxysmal Noc. Dyspnea, No Edema, No Lt Headedness, No Other Respiratory: No Cough, No Dry; Shortness of breath; No SOB with excertion, No Wheezing, No Hemoptysis, No Pleuritic Pain, No Sputum, No Other Gastrointestinal: No Nausea, No Vomiting, No Abdominal Pain, No Diarrhea, No Constipation, No Melena, No Hematochezia, No Other Genitourinary: No Dysuria, No Frequency, No Incontinence, No Hematuria, No Retention, No Other Musculoskeletal: other (RT leg pain, RT leg swelling.); No neck pain, No shoulder pain, No arm pain, No back pain, No hand pain, No leg pain, No foot pain Skin: No Rash, No Lesions, No Jaundice, No Bruising, No Other Objective Vitals Vital Signs Date Time Temp Pulse Resp B/P (MAP) Pulse Ox O2 Delivery O2 Flow Rate FiO2 03/11/24 12:43 99.8 03/11/24 08:00 92 17 98 Nasal Cannula* 2 28 03/11/24 05:00 124/63 (83) Intake/Output Intake and Output 03/11/24 07:00 Intake Total 2766 ml Output Total 802 ml Balance 1964 ml Intake Oral 736 ml IV Total 2030 ml Output Urine Total 800 ml Stool Total 2 ml # Voids 1 # Bowel Movements 1 General Appearance: Alert, Oriented X3, Cooperative, No acute distress HEENT: Atraumatic Lungs: Clear to auscultation Cardiovascular: Regular rate, Normal S1, Normal S2 Abdomen: Normal bowel sounds, Soft Extremities: Other (3+ edema) Psych/Mental Status: Mental status NL Medications Current Medications Medications Dose Ordered Sig/Fabricio Route Start Time Stop Time Status Last Admin Dose Admin Vancomycin HCl 0 ml @ 0 mls/hr UD IV 03/09/24 20:30 Sodium Chloride 1,000 ml @ 60 mls/hr [id number] IV 03/09/24 20:30 03/10/24 23:42 60 MLS/HR Acetaminophen/ Hydrocodone Bitart 1 tab Q4HP PRN PO 03/09/24 20:30 03/10/24 05:42 1 TAB Ondansetron HCl 4 mg Q4HP PRN IV 03/09/24 20:30 Docusate Sodium 100 mg BIDPRN PRN PO 03/09/24 20:30 Acetaminophen 650 mg Q6HP PRN PO 03/09/24 20:30 03/11/24 12:43 650 MG Heparin Sodium (Porcine) 5,000 units Q12HR SC 03/09/24 22:00 Hold Nitroglycerin 0.4 mg Q5MINP PRN SL 03/09/24 22:30 Morphine Sulfate 2 mg Q30M PRN IV 03/09/24 22:30 Midodrine 10 mg TID@0600,1200,1800 PO 03/10/24 06:00 03/11/24 12:39 10 MG Vancomycin HCl 750 mg/Dextrose 100 ml @ 100 mls/hr O IV 03/10/24 07:00 03/10/24 08:00 Cancel Vancomycin HCl 250 ml @ 250 mls/hr Q18H IV 03/10/24 13:00 03/11/24 06:35 250 MLS/HR Laboratory Results Laboratory Tests 03/10/24 05:44 03/11/24 05:45 Urinalysis Test 03/10/24 22:00 Urine Color [place] (Yellow) H Urine Clarity Ex.turbid (Clear) Urine pH 6.0 (5.0-9.0) Urine Specific [place] 1.025 (1.001-1.035) Urine Protein 2+ (Negative) H Urine Ketones Trace (Negative) Urine Blood 2+ /uL (Negative) H Urine Nitrite Negative (Negative) Urine Bilirubin Negative (Negative) Urine Urobilinogen 4 mg/dL (Negative) H Urine Leukocyte Esterase Trace /uL (Negative) Urine RBC 36 /hpf (0 - 3) Urine WBC 29 /hpf (0 - 3) Urine Squamous Epithelial Cells Few /hpf (<5) Urine Bacteria Few /hpf (None Seen) H Urine Creatinine 196.38 mg/dL (30.0-125.0) H Urine Protein/Creatinine Ratio 1.29 Urine Sodium 16 mmol/L (40-220) L Urine Glucose Trace mg/dL (Normal) Urine Total Protein 253.3 mg/dL (1-14) H Microbiology Microbiology Date/Time Source Procedure Growth Status 03/09/24 16:32 Blood Blood Culture - Preliminary NO GROWTH AFTER 24 HOURS OF INCUBATION. Resulted Assessment/Plan Assessment/Plan Symptomatic anemia- Monitor H&H myelodysplastic syndrome- Cont Outpatient followup Thrombocytopenia, COPD, Schizophrenia, Tobacco dependence, Counseling > 19 mins Goals of care >17 mins FULL CODE Plan discussed with: Patient My Orders Orders - VENKAT SMILEY MD Procedure Category Date Status Time Echo 2d Mode Cardiac US 03/11/24 Verified DOP 12:51 Basic Metabolic Panel LAB 03/12/24 Verified 04:00 Complete Blood Count LAB 03/12/24 Verified 04:00 Date of Service: Mar 11, 2024 Billing Provider: VENKAT SMILEY MD Common Visit Codes: [id number] INP/OBS CARE(HIGH) Secondary Visit Codes: [id number] CARE PLAN 30 MINUTES VENKAT SMILEY MD Mar 11, 2024 13:01
[2024-03-11 13:39] LABS: Band Neutrophils % (manual) 14; Eosinophils % (manual) 3 (0-7); Lymphocytes % (manual) 8 (10.0-50.0); Monocytes % (manual) 3 (0-12); Platelet Estimate Decreased
[2024-03-11] MEDS: SODIUM CHLORIDE 0.9% 500 ML IV ONE (14:58)
--- NOTE | 2024-03-11 15:17 | DVHSR ---
APPROVED REPORT EXAM: Two-dimensional and M-mode echocardiogram with Doppler and color Doppler. Blood Pressure: 124/63 mmHg INDICATION Heart Failure RISK FACTORS Height: 5'7", Weight: 182 DIMENSIONS LVDd4.8 (3.8-5.7cm)LA (2D)4.3 (1.9-4.0cm)Aortic Root (2.0-3.7cm) LVDs2.6 (2.5-4.0cm)LA (MM) (1.9-4.0cm)Aortic Cusp Exc (1.5-2.0cm) EF (%) 76.0 (55-70%)Rt. Atrium4.4 (1.9-4.0cm)Asc. Aorta cm IVSd1.2 (0.7-1.1cm)RV (D) (1.8-2.4cm) Mitral Valve MitralMitral Stenosis E wave0.92m/sMV Mean GR.mmHg A wave1.00m/sMV Peak GR.mmHg E/A ratio0.92D MVAcm2 DECEL [id number] 1/2 Timems Aortic Valve Aortic ValveAortic Stenosis V11.41m/Surjit Mean GR.9mmHg V21.98m/Surjit Peak GR.16mmHg LVOT Diameter2.0 (1.8-2.4cm)Doppler AVA2.24cm2 Tricuspid Valve TR Velocity2.92m/s [id number] Other Information Quality : Technically LimitedRhythm : Technically limited study due to body habitus. Conclusion Normal left ventricular size and dimension. Normal left ventricular systolic function at 55%. There is a grade 1 diastolic dysfunction. Normal right ventricular size and dimension. Normal right ventricular systolic function. Moderatel y elevated right ventricular systolic [id number] mm of mercury Normal biatrial size and dimension. Normal aortic valve structure and function. Normal mitral valve structure and function. Normal tricuspid valve structure function. The pulmonary valve is grossly normal. No pericardial effusion.
--- NOTE | 2024-03-11 15:50 | DVHPN2 ---
Progress Note Date Seen: Mar 11, 2024 Medical Necessity Reason Pt with a Central, PICC or Fol: No Subjective Patient reports: Feels better Objective vital signs Vital Sign Date Time Temp Pulse Resp B/P (MAP) Pulse Ox O2 Delivery O2 Flow Rate FiO2 03/11/24 14:00 100.8 03/11/24 13:00 103 18 97/56 (70) 95 03/11/24 08:00 Nasal Cannula* 2 28 Total Intake and Output 03/10/24 03/10/24 03/11/24 15:00 23:00 07:00 Intake Total 670 ml 2096 ml Output Total 2 ml 800 ml Balance 670 ml -2 ml 1296 ml medications Current Medications Medications Dose Ordered Sig/Fabricio Route Start Time Stop Time Status Last Admin Dose Admin Vancomycin HCl 0 ml @ 0 mls/hr UD IV 03/09/24 20:30 Sodium Chloride 1,000 ml @ 60 mls/hr [id number] IV 03/09/24 20:30 03/10/24 23:42 60 MLS/HR Acetaminophen/ Hydrocodone Bitart 1 tab Q4HP PRN PO 03/09/24 20:30 03/10/24 05:42 1 TAB Ondansetron HCl 4 mg Q4HP PRN IV 03/09/24 20:30 Docusate Sodium 100 mg BIDPRN PRN PO 03/09/24 20:30 Acetaminophen 650 mg Q6HP PRN PO 03/09/24 20:30 03/11/24 12:43 650 MG Heparin Sodium (Porcine) 5,000 units Q12HR SC 03/09/24 22:00 Hold Nitroglycerin 0.4 mg Q5MINP PRN SL 03/09/24 22:30 Morphine Sulfate 2 mg Q30M PRN IV 03/09/24 22:30 Midodrine 10 mg TID@0600,1200,1800 PO 03/10/24 06:00 03/11/24 12:39 10 MG Vancomycin HCl 750 mg/Dextrose 100 ml @ 100 mls/hr O IV 03/10/24 07:00 03/10/24 08:00 Cancel Vancomycin HCl 250 ml @ 250 mls/hr Q18H IV 03/10/24 13:00 03/11/24 06:35 250 MLS/HR Examination: GENERAL:Normal, CVS:Normal laboratory and microbiology Laboratory Tests 03/11/24 05:45 03/10/24 05:44 Test 03/10/24 05:44 Range/Units Serum Glucose 114 H 74-106 mg/dL Microbiology Date/Time Source Procedure Growth Status 03/09/24 16:32 Blood Blood Culture - Preliminary NO GROWTH AFTER 24 HOURS OF INCUBATION. Resulted Problem List/Assessment/Plan Problem List/Assessment/Plan Acute kidney injury secondary hemodynamic mediated Septic shock Hypotension COPD Schizophrenia Anemia Thrombocytopenia Right lower extremity cellulitis Acute kidney injury in the setting of sepsis now resolving Renal function has improved Monitor fluid electrolytes Avoid hypotension From Nephrology standpoint patient is stable we will defer management to primary medical team. We will sign off the case. No further renal recommendations at this time. Plan discussed with: Patient PRASHANTH CHESTER MD Mar 11, 2024 15:50
[2024-03-11] MEDS: ALBUMIN 5% 250 ML IV ONE (21:58)
[2024-03-12] VITALS (14 sets, daily range): BP systolic 91–119; BP diastolic 55–78; PULSE 85–101; RESP 17–20; TEMP 98.2–100.4; O2SAT 92–98
[2024-03-12 07:09] LABS: Anion Gap 7 (5-15); Carbon Dioxide 21 mmol/L (20-31); Mean Corpuscular Hemoglobin 30.2 pg (28.0-32.0); Potassium 3.5 mmol/L (3.5-5.1); Sodium 139 mmol/L (136-145); White Blood Cell 7.2 10^3/uL (4.4-10.8)
[2024-03-12 07:10] LABS: Calcium 8.9 mg/dL (8.7-10.4)
[2024-03-12 07:13] LABS: Hematocrit 18.9 % (41.0-53.0); Mean Corpuscular Hgb Conc. 34.3 g/dL (32.0-36.0); Platelet Count (auto) 25 10^3/uL (140-450); Red Blood Cells 2.14 10^6/uL (4.5-5.90); Red Cell Distribution Width 15.7 % (11.8-14.3)
[2024-03-12 07:15] LABS: BUN/Creatinine Ratio 33.3 (10.0-20.0); Blood Urea Nitrogen 21 mg/dL (9-23); Chloride 111 mmol/L (98-107); Glucose 114 mg/dL (74-106)
[2024-03-12 07:26] LABS: Hemoglobin 6.5 g/dL (13.5-17.5)
[2024-03-12 07:28] LABS: Basophils % (manual) 0 (0.0-2.0); Blast Cells 0; Metamyelocytes % 0; Monocytes % (manual) 0 (0-12); Myelocytes % 0; Promyelocytes % 0; Reactive Lymphocytes 0
[2024-03-12 08:44] LABS: Band Neutrophils % (manual) 6; Eosinophils % (manual) 1 (0-7); Lymphocytes % (manual) 4 (10.0-50.0)
[2024-03-12 08:45] LABS: Platelet Estimate Markedly Decreased
[2024-03-12 08:46] LABS: Large Platelets FEW
[2024-03-12] MEDS ORDERED: VANCOMYCIN 1.25GM/250ML 250 ML IV SCH (13:00)
--- NOTE | 2024-03-12 16:52 | DVHPN2 ---
Subjective Seen and examined at bedside. Will transfuse 2 PRBC today. C/o RLE swelling. Reviewed: Care Plan, H&P, Labs, Medications, Previous Orders, Radiology Changes from previous H/P or p: No Changes Eyes: No Pain, No Vision change, No Conjunctivae inflammation, No Eyelid inflammation, No Other, No Redness ENT: No Ear pain, No Ear discharge, No Nose pain, No Nose discharge, No Nose congestion, No Mouth pain, No Mouth swelling, No Throat pain, No Throat swelling, No Other Cardiovascular: No Chest Pain, No Palpitations, No Orthopnea, No Paroxysmal Noc. Dyspnea, No Edema, No Lt Headedness, No Other Gastrointestinal: No Nausea, No Vomiting, No Abdominal Pain, No Diarrhea, No Constipation, No Melena, No Hematochezia, No Other Genitourinary: No Dysuria, No Frequency, No Incontinence, No Hematuria, No Retention, No Other Skin: No Rash, No Lesions, No Jaundice, No Bruising, No Other Objective Vitals Vital Signs Date Time Temp Pulse Resp B/P (MAP) Pulse Ox O2 Delivery O2 Flow Rate FiO2 03/12/24 16:08 99.1 89 17 104/62 99.1 03/12/24 13:00 92 03/12/24 08:00 Nasal Cannula* 2 28 Intake/Output Intake and Output 03/12/24 07:00 Intake Total 2400 ml Output Total 501 ml Balance 1899 ml Intake Oral 340 ml IV Total 2060 ml Output Urine Total 500 ml Stool Total 1 ml General Appearance: Alert, Oriented X3, Cooperative, No acute distress HEENT: Atraumatic Lungs: Clear to auscultation Cardiovascular: Regular rate, Normal S1, Normal S2 Abdomen: Normal bowel sounds, Soft Extremities: Other (RLE Swelling+) Psych/Mental Status: Mental status NL Medications Current Medications Medications Dose Ordered Sig/Fabricio Route Start Time Stop Time Status Last Admin Dose Admin Vancomycin HCl 0 ml @ 0 mls/hr UD IV 03/09/24 20:30 Sodium Chloride 1,000 ml @ 60 mls/hr [id number] IV 03/09/24 20:30 03/11/24 21:54 60 MLS/HR Acetaminophen/ Hydrocodone Bitart 1 tab Q4HP PRN PO 03/09/24 20:30 03/10/24 05:42 1 TAB Ondansetron HCl 4 mg Q4HP PRN IV 03/09/24 20:30 Docusate Sodium 100 mg BIDPRN PRN PO 03/09/24 20:30 Acetaminophen 650 mg Q6HP PRN PO 03/09/24 20:30 03/12/24 14:01 650 MG Heparin Sodium (Porcine) 5,000 units Q12HR SC 03/09/24 22:00 Hold Nitroglycerin 0.4 mg Q5MINP PRN SL 03/09/24 22:30 Morphine Sulfate 2 mg Q30M PRN IV 03/09/24 22:30 Midodrine 10 mg TID@0600,1200,1800 PO 03/10/24 06:00 03/12/24 12:01 10 MG Vancomycin HCl 750 mg/Dextrose 100 ml @ 100 mls/hr O IV 03/10/24 07:00 03/10/24 08:00 Cancel Vancomycin HCl 250 ml @ 200 mls/hr Q12H IV 03/12/24 17:00 Laboratory Results Laboratory Tests 03/12/24 06:21 Chemistry Test 03/12/24 06:21 Calcium Level 8.9 mg/dL (8.7-10.4) Urinalysis Test 03/10/24 22:00 Urine Color [place] (Yellow) H Urine Clarity Ex.turbid (Clear) Urine pH 6.0 (5.0-9.0) Urine Specific [place] 1.025 (1.001-1.035) Urine Protein 2+ (Negative) H Urine Ketones Trace (Negative) Urine Blood 2+ /uL (Negative) H Urine Nitrite Negative (Negative) Urine Bilirubin Negative (Negative) Urine Urobilinogen 4 mg/dL (Negative) H Urine Leukocyte Esterase Trace /uL (Negative) Urine RBC 36 /hpf (0 - 3) Urine WBC 29 /hpf (0 - 3) Urine Squamous Epithelial Cells Few /hpf (<5) Urine Bacteria Few /hpf (None Seen) H Urine Creatinine 196.38 mg/dL (30.0-125.0) H Urine Protein/Creatinine Ratio 1.29 Urine Sodium 16 mmol/L (40-220) L Urine Glucose Trace mg/dL (Normal) Urine Total Protein 253.3 mg/dL (1-14) H Microbiology Microbiology Date/Time Source Procedure Growth Status 03/09/24 16:32 Blood Blood Culture - Preliminary NO GROWTH AFTER 72 HOURS OF INCUBATION. Resulted Assessment/Plan Assessment/Plan Symptomatic anemia- Monitor H&H Myelodysplastic syndrome- Cont Outpatient followup Possible Acute Diastolic CHF- Lasix Thrombocytopenia, COPD, Schizophrenia, Tobacco dependence, Counseling > 19 mins Goals of care >17 mins FULL CODE Plan discussed with: Patient My Orders Orders - VENKAT SMILEY MD Procedure Category Date Status Time Furosemide Injection PHA 03/12/24 Verified (Lasix Injection) 17:00 Furosemide Injection PHA 03/12/24 Verified (Lasix Injection) 18:00 Albumin Ivpb PHA 03/12/24 Verified 17:00 Basic Metabolic Panel LAB 03/13/24 Verified 04:00 Date of Service: Mar 12, 2024 Billing Provider: VENKAT SMILEY MD Common Visit Codes: [id number] INP/OBS CARE(HIGH) VENKAT SMILEY MD Mar 12, 2024 16:52
[2024-03-12] MEDS: FUROSEMIDE 20 MG/2 ML VIAL IV ONE (17:04)
[2024-03-12] MEDS: VANCOMYCIN 1.25GM/250ML 250 ML IV SCH (17:17)
[2024-03-12] MEDS: ALBUMIN 25% 100 ML IV ONE (18:45)
[2024-03-13] VITALS (8 sets, daily range): BP systolic 95–116; BP diastolic 52–70; PULSE 62–107; RESP 17–20; TEMP 99–100.5; O2SAT 94–98
[2024-03-13] MEDS: FUROSEMIDE 20 MG/2 ML VIAL IV SCH (05:31)
[2024-03-13 06:57] LABS: Basophils # (auto) 0 10 ^3/uL (0-0.2); Basophils % (auto) 0.5 % (0.0-2.0); Eosinophils # (auto) 0.1 10 ^3/uL (0-0.8); Hemoglobin 8.2 g/dL (13.5-17.5); Monocytes # (auto) 0 10 ^3/uL (0-1.3)
[2024-03-13 07:00] LABS: Eosinophils % (auto) 1.7 % (0.0-7.0); Hematocrit 23.6 % (41.0-53.0); Lymphocytes # (auto) 0.3 10 ^3/uL (0.4-5.4); Lymphocytes % (auto) 4.8 % (10.0-50.0); Mean Corpuscular Hemoglobin 30.9 pg (28.0-32.0); Mean Corpuscular Hgb Conc. 34.8 g/dL (32.0-36.0); Mean Corpuscular Volume 88.8 fL (80.0-100.0); Monocytes % (auto) 0.7 % (0.0-12.0); Neutrophils # (auto) 6.5 10 ^3/uL (1.6-8.6); Neutrophils % (auto) 92.3 % (37.0-80.0); Platelet Count (auto) 25 10^3/uL (140-450); Red Blood Cells 2.66 10^6/uL (4.5-5.90); Red Cell Distribution Width 15.8 % (11.8-14.3)
[2024-03-13 07:01] LABS: Anion Gap 8 (5-15); Carbon Dioxide 22 mmol/L (20-31); Potassium 3.5 mmol/L (3.5-5.1); Sodium 138 mmol/L (136-145)
[2024-03-13 07:07] LABS: BUN/Creatinine Ratio 23.3 (10.0-20.0); Blood Urea Nitrogen 17 mg/dL (9-23)
[2024-03-13 07:09] LABS: Chloride 108 mmol/L (98-107); Glucose 117 mg/dL (74-106)
--- NOTE | 2024-03-13 11:04 | DVHPN2 ---
Subjective Seen and examined at bedside. s/p 2 PRBC. Patient is having low grade fevers, check Flu again. Start Rocephin. Right LE swelling, will attempt to get Venogram. Reviewed: Care Plan, H&P, Labs, Medications, Previous Orders, Radiology Changes from previous H/P or p: No Changes Eyes: No Pain, No Vision change, No Conjunctivae inflammation, No Eyelid inflammation, No Other, No Redness ENT: No Ear pain, No Ear discharge, No Nose pain, No Nose discharge, No Nose congestion, No Mouth pain, No Mouth swelling, No Throat pain, No Throat swelling, No Other Cardiovascular: No Chest Pain, No Palpitations, No Orthopnea, No Paroxysmal Noc. Dyspnea, No Edema, No Lt Headedness, No Other Gastrointestinal: No Nausea, No Vomiting, No Abdominal Pain, No Diarrhea, No Constipation, No Melena, No Hematochezia, No Other Genitourinary: No Dysuria, No Frequency, No Incontinence, No Hematuria, No Retention, No Other Skin: No Rash, No Lesions, No Jaundice, No Bruising, No Other Objective Vitals Vital Signs Date Time Temp Pulse Resp B/P (MAP) Pulse Ox O2 Delivery O2 Flow Rate FiO2 03/13/24 09:00 100.3 94 18 110/62 (78) 98 100.3 03/12/24 20:00 Nasal Cannula* 2 28 Intake/Output Intake and Output 03/13/24 07:00 Intake Total 3190 ml Output Total 850 ml Balance 2340 ml Intake Oral 1860 ml IV Total 730 ml Blood Product 600 ml Output Urine Total 850 ml # Bowel Movements 1 General Appearance: Alert, Oriented X3, Cooperative, No acute distress HEENT: Atraumatic Lungs: Clear to auscultation Cardiovascular: Regular rate, Normal S1, Normal S2 Abdomen: Normal bowel sounds, Soft Extremities: Other (RLE Swelling+) Psych/Mental Status: Mental status NL Medications Current Medications Medications Dose Ordered Sig/Fabricio Route Start Time Stop Time Status Last Admin Dose Admin Vancomycin HCl 0 ml @ 0 mls/hr UD IV 03/09/24 20:30 Acetaminophen/ Hydrocodone Bitart 1 tab Q4HP PRN PO 03/09/24 20:30 03/13/24 03:11 1 TAB Ondansetron HCl 4 mg Q4HP PRN IV 03/09/24 20:30 Docusate Sodium 100 mg BIDPRN PRN PO 03/09/24 20:30 Acetaminophen 650 mg Q6HP PRN PO 03/09/24 20:30 03/12/24 14:01 650 MG Heparin Sodium (Porcine) 5,000 units Q12HR SC 03/09/24 22:00 Hold Nitroglycerin 0.4 mg Q5MINP PRN SL 03/09/24 22:30 Morphine Sulfate 2 mg Q30M PRN IV 03/09/24 22:30 Midodrine 10 mg TID@0600,1200,1800 PO 03/10/24 06:00 03/13/24 05:31 10 MG Vancomycin HCl 750 mg/Dextrose 100 ml @ 100 mls/hr O IV 03/10/24 07:00 03/10/24 08:00 Cancel Vancomycin HCl 250 ml @ 200 mls/hr Q12H IV 03/12/24 17:00 03/13/24 05:31 200 MLS/HR Furosemide 20 mg BIDD IV 03/13/24 06:00 03/13/24 05:31 20 MG Laboratory Results Laboratory Tests 03/13/24 06:06 Chemistry Test 03/13/24 06:06 Calcium Level 9.0 mg/dL (8.7-10.4) Urinalysis Test 03/10/24 22:00 Urine Color [place] (Yellow) H Urine Clarity Ex.turbid (Clear) Urine pH 6.0 (5.0-9.0) Urine Specific [place] 1.025 (1.001-1.035) Urine Protein 2+ (Negative) H Urine Ketones Trace (Negative) Urine Blood 2+ /uL (Negative) H Urine Nitrite Negative (Negative) Urine Bilirubin Negative (Negative) Urine Urobilinogen 4 mg/dL (Negative) H Urine Leukocyte Esterase Trace /uL (Negative) Urine RBC 36 /hpf (0 - 3) Urine WBC 29 /hpf (0 - 3) Urine Squamous Epithelial Cells Few /hpf (<5) Urine Bacteria Few /hpf (None Seen) H Urine Creatinine 196.38 mg/dL (30.0-125.0) H Urine Protein/Creatinine Ratio 1.29 Urine Sodium 16 mmol/L (40-220) L Urine Glucose Trace mg/dL (Normal) Urine Total Protein 253.3 mg/dL (1-14) H Microbiology Microbiology Date/Time Source Procedure Growth Status 03/09/24 16:32 Blood Blood Culture - Preliminary NO GROWTH AFTER 72 HOURS OF INCUBATION. Resulted Assessment/Plan Assessment/Plan Symptomatic anemia- Monitor H&H SIRS- Abx R LE Swelling- DVT Ruled out, Venogram Myelodysplastic syndrome- Cont Outpatient followup Possible Acute Diastolic CHF- Lasix Thrombocytopenia, COPD, Schizophrenia, Tobacco dependence, Counseling > 19 mins Goals of care >17 mins FULL CODE Plan discussed with: Patient My Orders Orders - VENKAT SMILEY MD Procedure Category Date Status Time Furosemide Injection PHA 03/13/24 In Process (Lasix Injection) 06:00 Rapid Influenza A&B LAB 03/13/24 Logged 10:29 Rt Lower Dvt US 03/13/24 Logged 10:43 R Venogram Unilateral XY 03/13/24 Logged 11:01 Complete Blood Count LAB 03/14/24 Verified 04:00 Basic Metabolic Panel LAB 03/14/24 Verified 04:00 Ceftriaxone Ivpb PHA 03/13/24 Verified Rocephin 11:15 Ceftriaxone Ivpb PHA 03/14/24 Verified Rocephin 09:00 Date of Service: Mar 13, 2024 Billing Provider: VENKAT SMILEY MD Common Visit Codes: [id number] INP/OBS CARE(MOD) VENKAT SIMLEY MD Mar 13, 2024 11:04
--- NOTE | 2024-03-13 12:19 | DVH ---
US RT LOWER DVT US 03/13/2024 11:25 AM Clinical History: rule out dvt Comparison: US RT LOWER DVT on DOS: 03/09/24, US RT LOWER DVT on DOS: 02/06/24, US RT LOWER DVT on DO S: 02/02/24 Technique: Duplex Doppler evaluation of the deep venous system of the right lower extremity from the common femo ral vein to the popliteal vein including color Doppler and spectral/pulsed waveform analysis was perf ormed. Findings: The common femoral vein demonstrates appropriate compressibility and waveform variability. There is compressibility/patency of the great saphenous vein at the proximal thigh. The femoral vein demonstrates appropriate compressibility and waveform variability. The deep femoral vein demonstrates appropriate compressibility and waveform variability. The popliteal vein demonstrates appropriate compressibility and waveform variability. There is color flow in the tibioperoneal trunk and posterior tibial vein. A benign-appearing 1.8 x 1.5 x 0.8 cm lymph node is seen in the femoral canal, likely reactive in kia ure. Impression: 1. No deep venous thrombosis right lower extremity. If clinical concern/symptoms persist or worsen, short-interval follow-up study is suggested.
[2024-03-13] MEDS: cefTRIAXone 1GM/50ML D5W 50 ML IV ONE (12:21)
[2024-03-14] VITALS (8 sets, daily range): BP systolic 93–122; BP diastolic 55–91; PULSE 69–103; RESP 16–18; TEMP 98.2–100.3; O2SAT 92–100
[2024-03-14 06:55] LABS: Anion Gap 8 (5-15); Carbon Dioxide 23 mmol/L (20-31); Sodium 139 mmol/L (136-145)
[2024-03-14 06:56] LABS: Calcium 8.4 mg/dL (8.7-10.4); Chloride 108 mmol/L (98-107); Potassium 3.3 mmol/L (3.5-5.1)
[2024-03-14 07:01] LABS: BUN/Creatinine Ratio 27.1 (10.0-20.0); Blood Urea Nitrogen 19 mg/dL (9-23)
[2024-03-14 07:05] LABS: Glucose 110 mg/dL (74-106)
[2024-03-14 07:06] LABS: Hematocrit 23.5 % (41.0-53.0); Mean Corpuscular Hemoglobin 30.4 pg (28.0-32.0); Mean Corpuscular Volume 89.6 fL (80.0-100.0); Red Blood Cells 2.62 10^6/uL (4.5-5.90); Red Cell Distribution Width 15.5 % (11.8-14.3)
[2024-03-14 07:49] LABS: Platelet Count (auto) 16 10^3/uL (140-450)
[2024-03-14 07:50] LABS: Basophils % (manual) 0 (0.0-2.0); Blast Cells 0; Metamyelocytes % 0; Myelocytes % 0; Promyelocytes % 0; Reactive Lymphocytes 0
[2024-03-14] MEDS: cefTRIAXone 1GM/50ML D5W 50 ML IV SCH (09:05)
[2024-03-14] MEDS: POTASSIUM EFFERVESENT TAB 25 MEQ PO ONE (09:06)
[2024-03-14 09:33] LABS: Band Neutrophils % (manual) 5; Eosinophils % (manual) 2 (0-7); Large Platelets FEW; Lymphocytes % (manual) 3 (10.0-50.0); Monocytes % (manual) 1 (0-12)
[2024-03-14 09:34] LABS: Platelet Estimate Decrea
--- NOTE | 2024-03-14 12:31 | DVH ---
XY R VENOGRAM UNILATERAL, HISTORY: SWELLING of the right leg COMPARISON: None PROCEDURE: Informed consent. The patient was placed on the fluoroscopic table in supine position with the right low extremity extended. Time out was performed. A right ankle superficial vein was accesse d with US guidance. Ssequential spot fluoroscopic images/venograms of the lower extremity were obtain ed during the injection of iodinated contrast. The procedure was then terminated. No immediate compli cation was identified. DAP 134 FLUOROSCOPY TIME: 1.2 minutes. CONTRAST USED: 50 mL . FINDINGS: The lesser saphenous and greater saphenous veins appear patent and normal in caliber. Parti al visualization of the popliteal and distal femoral vein appear patent and normal in caliber. IMPRESSION: Patent lesser and greater saphenous veins without thrombus or enlargement of size visualized. Partial visualization of the popliteal and distal femoral vein appear patent and normal in caliber.
--- NOTE | 2024-03-14 14:00 | DVHPN2 ---
Subjective Seen and examined at bedside. s/p 2 PRBC. Platelets have been dropping but no bleeding. Repeat CBC. No fevers. Reviewed: Care Plan, H&P, Labs, Medications, Previous Orders, Radiology Changes from previous H/P or p: No Changes Eyes: No Pain, No Vision change, No Conjunctivae inflammation, No Eyelid inflammation, No Other, No Redness ENT: No Ear pain, No Ear discharge, No Nose pain, No Nose discharge, No Nose congestion, No Mouth pain, No Mouth swelling, No Throat pain, No Throat swelling, No Other Cardiovascular: No Chest Pain, No Palpitations, No Orthopnea, No Paroxysmal Noc. Dyspnea, No Edema, No Lt Headedness, No Other Gastrointestinal: No Nausea, No Vomiting, No Abdominal Pain, No Diarrhea, No Constipation, No Melena, No Hematochezia, No Other Genitourinary: No Dysuria, No Frequency, No Incontinence, No Hematuria, No Retention, No Other Skin: No Rash, No Lesions, No Jaundice, No Bruising, No Other Objective Vitals Vital Signs Date Time Temp Pulse Resp B/P (MAP) Pulse Ox O2 Delivery O2 Flow Rate FiO2 03/14/24 13:00 98.4 72 17 112/77 (89) 100 98.4 03/14/24 08:00 Room Air* 0 21 Intake/Output Intake and Output 03/14/24 07:00 Intake Total 1825 ml Output Total 3000 ml Balance -1175 ml Intake Oral 1525 ml IV Total 300 ml Output Urine Total 3000 ml # Bowel Movements 1 General Appearance: Alert, Oriented X3, Cooperative, No acute distress HEENT: Atraumatic Lungs: Clear to auscultation Cardiovascular: Regular rate, Normal S1, Normal S2 Abdomen: Normal bowel sounds, Soft Extremities: Other (RLE Swelling+) Psych/Mental Status: Mental status NL Medications Current Medications Medications Dose Ordered Sig/Fabricio Route Start Time Stop Time Status Last Admin Dose Admin Vancomycin HCl 0 ml @ 0 mls/hr UD IV 03/09/24 20:30 Acetaminophen/ Hydrocodone Bitart 1 tab Q4HP PRN PO 03/09/24 20:30 03/14/24 12:11 1 TAB Ondansetron HCl 4 mg Q4HP PRN IV 03/09/24 20:30 Docusate Sodium 100 mg BIDPRN PRN PO 12/21/24 20:30 Acetaminophen 650 mg Q6HP PRN PO 03/09/24 20:30 03/13/24 16:55 650 MG Heparin Sodium (Porcine) 5,000 units Q12HR SC 03/09/24 22:00 Hold Nitroglycerin 0.4 mg Q5MINP PRN SL 03/09/24 22:30 Morphine Sulfate 2 mg Q30M PRN IV 03/09/24 22:30 Midodrine 10 mg TID@0600,1200,1800 PO 03/10/24 06:00 03/14/24 12:11 10 MG Vancomycin HCl 750 mg/Dextrose 100 ml @ 100 mls/hr O IV 03/10/24 07:00 03/10/24 08:00 Cancel Vancomycin HCl 250 ml @ 200 mls/hr Q12H IV 03/12/24 17:00 03/14/24 05:03 200 MLS/HR Furosemide 20 mg BIDD IV 03/13/24 06:00 03/14/24 05:47 20 MG Ceftriaxone Sodium 50 ml @ 100 mls/hr DAILY@09 IV 03/14/24 09:00 03/14/24 09:05 100 MLS/HR Laboratory Results Laboratory Tests 03/14/24 06:15 Chemistry Test 03/14/24 06:15 Calcium Level 8.4 mg/dL (8.7-10.4) L Urinalysis Test 03/10/24 22:00 Urine Color [place] (Yellow) H Urine Clarity Ex.turbid (Clear) Urine pH 6.0 (5.0-9.0) Urine Specific [place] 1.025 (1.001-1.035) Urine Protein 2+ (Negative) H Urine Ketones Trace (Negative) Urine Blood 2+ /uL (Negative) H Urine Nitrite Negative (Negative) Urine Bilirubin Negative (Negative) Urine Urobilinogen 4 mg/dL (Negative) H Urine Leukocyte Esterase Trace /uL (Negative) Urine RBC 36 /hpf (0 - 3) Urine WBC 29 /hpf (0 - 3) Urine Squamous Epithelial Cells Few /hpf (<5) Urine Bacteria Few /hpf (None Seen) H Urine Creatinine 196.38 mg/dL (30.0-125.0) H Urine Protein/Creatinine Ratio 1.29 Urine Sodium 16 mmol/L (40-220) L Urine Glucose Trace mg/dL (Normal) Urine Total Protein 253.3 mg/dL (1-14) H Microbiology Microbiology Date/Time Source Procedure Growth Status 03/09/24 16:32 Blood Blood Culture - Preliminary NO GROWTH AFTER 72 HOURS OF INCUBATION. Resulted Assessment/Plan Assessment/Plan Pancytopenia Symptomatic anemia- Monitor H&H SIRS- Abx R LE Swelling- DVT Ruled out, Venogram noted Myelodysplastic syndrome- Cont Outpatient followup Possible Acute Diastolic CHF- Lasix Thrombocytopenia, COPD, Schizophrenia, Tobacco dependence, Counseling > 19 mins Goals of care >17 mins FULL CODE Plan discussed with: Patient My Orders Orders - VENKAT SMILEY MD Procedure Category Date Status Time R Venogram Unilateral XY 03/14/24 Resulted 09:00 Us Guided Vascular US 03/14/24 Taken Access Complete Blood Count LAB 03/14/24 Logged 13:54 Platelet Count (Auto) LAB 03/14/24 Verified 13:56 Date of Service: Mar 14, 2024 Billing Provider: VENKAT SMILEY MD Common Visit Codes: [id number] INP/OBS CARE(MOD) VENKAT SMILEY MD Mar 14, 2024 14:00
[2024-03-14 15:20] LABS: Eosinophils # (auto) 0.1 10 ^3/uL (0-0.8); Neutrophils % (auto) 92.5 % (37.0-80.0); Nucleated Red Blood Cells % 0.1 %
[2024-03-14 15:22] LABS: Basophils # (auto) 0.1 10 ^3/uL (0-0.2); Basophils % (auto) 0.7 % (0.0-2.0); Eosinophils % (auto) 1.5 % (0.0-7.0); Hematocrit 22.9 % (41.0-53.0); Hemoglobin 7.8 g/dL (13.5-17.5); Lymphocytes # (auto) 0.3 10 ^3/uL (0.4-5.4); Lymphocytes % (auto) 4.5 % (10.0-50.0); Mean Corpuscular Hemoglobin 30.4 pg (28.0-32.0); Mean Corpuscular Hgb Conc. 34.1 g/dL (32.0-36.0); Mean Corpuscular Volume 89.4 fL (80.0-100.0); Monocytes # (auto) 0.1 10 ^3/uL (0-1.3); Monocytes % (auto) 0.8 % (0.0-12.0); Neutrophils # (auto) 6.6 10 ^3/uL (1.6-8.6); Red Blood Cells 2.56 10^6/uL (4.5-5.90); Red Cell Distribution Width 15.9 % (11.8-14.3); White Blood Cell 7.1 10^3/uL (4.4-10.8)
[2024-03-14 15:54] LABS: Platelet Count (auto) 15 10^3/uL (140-450)
--- NOTE | 2024-03-14 15:58 | DVH ---
US US Guided Vascular Access, HISTORY: VENOGRAM BY RADIOLOGIST TECHNICAL DATA: Transverse and longitudinal sonographic images were obtained of the right ankle. COMPARISON: None FINDINGS: Ultrasound guidance was used to access a right ankle superficial vein for a right lower extremity elen ogram. IMPRESSION: Ultrasound guidance was used to access a right ankle superficial vein for a right lower extremity elen ogram.
[2024-03-14 17:19] LABS: Platelet Estimate Markedly Decreased
[2024-03-15] VITALS (12 sets, daily range): BP systolic 92–110; BP diastolic 48–67; PULSE 75–97; RESP 16–24; TEMP 98–101.6; O2SAT 95–97
[2024-03-15] MEDS: VANCOMYCIN 1.25GM/250ML 250 ML IV SCH (09:29)
--- NOTE | 2024-03-15 09:59 | DVHPN2 ---
Subjective Seen and examined at bedside. Repeat CBC, monitor platelets. Reviewed with Pathologist, platelets are decreased. Reviewed: Care Plan, H&P, Labs, Medications, Previous Orders, Radiology Changes from previous H/P or p: No Changes Eyes: No Pain, No Vision change, No Conjunctivae inflammation, No Eyelid inflammation, No Other, No Redness ENT: No Ear pain, No Ear discharge, No Nose pain, No Nose discharge, No Nose congestion, No Mouth pain, No Mouth swelling, No Throat pain, No Throat swelling, No Other Cardiovascular: No Chest Pain, No Palpitations, No Orthopnea, No Paroxysmal Noc. Dyspnea, No Edema, No Lt Headedness, No Other Gastrointestinal: No Nausea, No Vomiting, No Abdominal Pain, No Diarrhea, No Constipation, No Melena, No Hematochezia, No Other Genitourinary: No Dysuria, No Frequency, No Incontinence, No Hematuria, No Retention, No Other Skin: No Rash, No Lesions, No Jaundice, No Bruising, No Other Objective Vitals Vital Signs Date Time Temp Pulse Resp B/P (MAP) Pulse Ox O2 Delivery O2 Flow Rate FiO2 03/15/24 09:00 99.2 80 17 92/62 (72) 97 99.2 03/14/24 20:00 Room Air* 0 21 Intake/Output Intake and Output 03/15/24 07:00 Intake Total 1875 ml Output Total 2025 ml Balance -150 ml Intake Oral 1575 ml IV Total 300 ml Output Urine Total 2025 ml General Appearance: Alert, Oriented X3, Cooperative, No acute distress HEENT: Atraumatic Lungs: Clear to auscultation Cardiovascular: Regular rate, Normal S1, Normal S2 Abdomen: Normal bowel sounds, Soft Extremities: Other (RLE Swelling+) Psych/Mental Status: Mental status NL Medications Current Medications Medications Dose Ordered Sig/Fabricio Route Start Time Stop Time Status Last Admin Dose Admin Vancomycin HCl 0 ml @ 0 mls/hr UD IV 03/09/24 20:30 Acetaminophen/ Hydrocodone Bitart 1 tab Q4HP PRN PO 03/09/24 20:30 03/15/24 04:33 1 TAB Ondansetron HCl 4 mg Q4HP PRN IV 03/09/24 20:30 Docusate Sodium 100 mg BIDPRN PRN PO 03/09/24 20:30 Acetaminophen 650 mg Q6HP PRN PO 03/09/24 20:30 03/15/24 00:29 650 MG Heparin Sodium (Porcine) 5,000 units Q12HR SC 03/09/24 22:00 Hold Nitroglycerin 0.4 mg Q5MINP PRN SL 03/09/24 22:30 Morphine Sulfate 2 mg Q30M PRN IV 03/09/24 22:30 Midodrine 10 mg TID@0600,1200,1800 PO 03/10/24 06:00 03/15/24 06:12 10 MG Vancomycin HCl 750 mg/Dextrose 100 ml @ 100 mls/hr O IV 03/10/24 07:00 03/10/24 08:00 Cancel Furosemide 20 mg BIDD IV 03/13/24 06:00 03/14/24 17:41 20 MG Ceftriaxone Sodium 50 ml @ 100 mls/hr DAILY@09 IV 03/14/24 09:00 03/15/24 08:37 100 MLS/HR Vancomycin HCl 250 ml @ 200 mls/hr Q12H IV 03/15/24 08:00 03/15/24 09:29 200 MLS/HR Laboratory Results Laboratory Tests 03/14/24 06:15 03/14/24 14:50 Urinalysis Test 03/10/24 22:00 Urine Color [place] (Yellow) H Urine Clarity Ex.turbid (Clear) Urine pH 6.0 (5.0-9.0) Urine Specific [place] 1.025 (1.001-1.035) Urine Protein 2+ (Negative) H Urine Ketones Trace (Negative) Urine Blood 2+ /uL (Negative) H Urine Nitrite Negative (Negative) Urine Bilirubin Negative (Negative) Urine Urobilinogen 4 mg/dL (Negative) H Urine Leukocyte Esterase Trace /uL (Negative) Urine RBC 36 /hpf (0 - 3) Urine WBC 29 /hpf (0 - 3) Urine Squamous Epithelial Cells Few /hpf (<5) Urine Bacteria Few /hpf (None Seen) H Urine Creatinine 196.38 mg/dL (30.0-125.0) H Urine Protein/Creatinine Ratio 1.29 Urine Sodium 16 mmol/L (40-220) L Urine Glucose Trace mg/dL (Normal) Urine Total Protein 253.3 mg/dL (1-14) H Microbiology Microbiology Date/Time Source Procedure Growth Status 03/09/24 16:32 Blood Blood Culture - Final NO GROWTH AFTER 5 DAYS OF INCUBATION. Complete Assessment/Plan Assessment/Plan Pancytopenia Symptomatic anemia- Monitor H&H SIRS- Abx R LE Swelling- DVT Ruled out, Venogram noted Myelodysplastic syndrome- Cont Outpatient followup Possible Acute Diastolic CHF- Lasix Thrombocytopenia, COPD, Schizophrenia, Tobacco dependence, Counseling > 19 mins Goals of care >17 mins FULL CODE Plan discussed with: Patient My Orders Orders - VENKAT SMILEY MD Procedure Category Date Status Time Us Guided Vascular US 03/14/24 Resulted Access * Hematology/Oncology CONS 03/14/24 Transmitted Consult 16:03 Complete Blood Count LAB 03/15/24 Verified 09:58 * Hematology/Oncology CONS 03/15/24 Verified Consult 09:58 Date of Service: Mar 15, 2024 Billing Provider: VENKAT SMILEY MD Common Visit Codes: [id number] INP/OBS CARE(MOD) VENKAT SMILEY MD Mar 15, 2024 09:59
[2024-03-15 12:19] LABS: Basophils # (auto) 0 10 ^3/uL (0-0.2); Basophils % (auto) 0.6 % (0.0-2.0); Mean Corpuscular Volume 89.6 fL (80.0-100.0); Monocytes # (auto) 0 10 ^3/uL (0-1.3); Monocytes % (auto) 0.6 % (0.0-12.0); Neutrophils # (auto) 5.9 10 ^3/uL (1.6-8.6); White Blood Cell 6.5 10^3/uL (4.4-10.8)
[2024-03-15 12:21] LABS: Eosinophils # (auto) 0.2 10 ^3/uL (0-0.8); Eosinophils % (auto) 2.3 % (0.0-7.0); Hematocrit 23.5 % (41.0-53.0); Lymphocytes # (auto) 0.4 10 ^3/uL (0.4-5.4); Mean Corpuscular Hemoglobin 30.7 pg (28.0-32.0); Mean Corpuscular Hgb Conc. 34.2 g/dL (32.0-36.0); Neutrophils % (auto) 90.5 % (37.0-80.0); Red Blood Cells 2.62 10^6/uL (4.5-5.90)
[2024-03-15 12:25] LABS: Platelet Count (auto) 13 10^3/uL (140-450)
[2024-03-15 12:34] LABS: Anion Gap 6 (5-15); Carbon Dioxide 25 mmol/L (20-31); Chloride 106 mmol/L (98-107); Sodium 137 mmol/L (136-145)
[2024-03-15 12:40] LABS: BUN/Creatinine Ratio 26.9 (10.0-20.0); Blood Urea Nitrogen 18 mg/dL (9-23); Uric Acid 3.2 mg/dL (3.7-9.2)
[2024-03-15 12:41] LABS: Magnesium 2.1 mg/dL (1.6-2.6)
[2024-03-15 12:46] LABS: Glucose 129 mg/dL (74-106); Potassium 3.3 mmol/L (3.5-5.1)
[2024-03-15 14:32] LABS: Platelet Estimate Markedly Decreased
--- NOTE | 2024-03-15 15:08 | DVH ---
CLINICAL INDICATION: Swelling TECHNIQUE: 3 radiographic views of the right ankle were obtained. Comparison: None FINDINGS/IMPRESSION: There is no evidence of acute fracture or dislocation. Soft tissue swelling is noted over the medial and lateral malleolus. The visualized joint space is well maintained. The alignment is anatomical. There is no radiopaque foreign body.
[2024-03-16 05:00] VITALS: BP 97/56; PULSE 95; RESP 19; TEMP 99.3; O2SAT 93
[2024-03-16] MEDS: IOHEXOL 300 MG/ML 100ML BOTTLE IJ ONE (07:56)
[2024-03-16 08:00] VITALS: PULSE 82
[2024-03-16 09:00] VITALS: BP 98/55; PULSE 66; RESP 18; TEMP 98.5; O2SAT 96
[2024-03-16] MEDS: POTASSIUM CHL 20 Meq TABLET PO ONE (12:03)
[2024-03-16] MEDS: methylPREDNISolone SOD SUCC 125 MG/2 ML VL IV ONE (12:03)
[2024-03-16 13:00] VITALS: BP 116/53; PULSE 93; RESP 19; TEMP 98.4; O2SAT 94
--- NOTE | 2024-03-16 14:46 | DVHPN2 ---
Subjective Seen and examined at bedside. Was transfused 1 Platelet, cont to drop. Will start Steroids. No bleeding Reviewed: Care Plan, H&P, Labs, Medications, Previous Orders, Radiology Changes from previous H/P or p: No Changes Eyes: No Pain, No Vision change, No Conjunctivae inflammation, No Eyelid inflammation, No Other, No Redness ENT: No Ear pain, No Ear discharge, No Nose pain, No Nose discharge, No Nose congestion, No Mouth pain, No Mouth swelling, No Throat pain, No Throat swelling, No Other Cardiovascular: No Chest Pain, No Palpitations, No Orthopnea, No Paroxysmal Noc. Dyspnea, No Edema, No Lt Headedness, No Other Gastrointestinal: No Nausea, No Vomiting, No Abdominal Pain, No Diarrhea, No Constipation, No Melena, No Hematochezia, No Other Genitourinary: No Dysuria, No Frequency, No Incontinence, No Hematuria, No Retention, No Other Skin: No Rash, No Lesions, No Jaundice, No Bruising, No Other Objective Vitals Vital Signs Date Time Temp Pulse Resp B/P (MAP) Pulse Ox O2 Delivery O2 Flow Rate FiO2 03/16/24 13:00 98.4 93 19 116/53 (74) 94 98.4 03/16/24 08:00 Room Air* 0 21 Intake/Output Intake and Output 03/16/24 07:00 Intake Total 2675 ml Output Total 1550 ml Balance 1125 ml Intake Oral 1525 ml IV Total 550 ml Blood Product 300 ml Other 300 ml Output Urine Total 1550 ml # Voids 4 General Appearance: Alert, Oriented X3, Cooperative, No acute distress HEENT: Atraumatic Lungs: Clear to auscultation Cardiovascular: Regular rate, Normal S1, Normal S2 Abdomen: Normal bowel sounds, Soft Extremities: Other (RLE Swelling+) Psych/Mental Status: Mental status NL Medications Current Medications Medications Dose Ordered Sig/Fabricio Route Start Time Stop Time Status Last Admin Dose Admin Vancomycin HCl 0 ml @ 0 mls/hr UD IV 03/09/24 20:30 Acetaminophen/ Hydrocodone Bitart 1 tab Q4HP PRN PO 03/09/24 20:30 03/15/24 20:47 1 TAB Ondansetron HCl 4 mg Q4HP PRN IV 03/09/24 20:30 Docusate Sodium 100 mg BIDPRN PRN PO 12/21/24 20:30 Acetaminophen 650 mg Q6HP PRN PO 03/09/24 20:30 03/16/24 05:16 650 MG Heparin Sodium (Porcine) 5,000 units Q12HR SC 03/09/24 22:00 Hold Nitroglycerin 0.4 mg Q5MINP PRN SL 03/09/24 22:30 Morphine Sulfate 2 mg Q30M PRN IV 03/09/24 22:30 Midodrine 10 mg TID@0600,1200,1800 PO 03/10/24 06:00 03/16/24 12:03 10 MG Vancomycin HCl 750 mg/Dextrose 100 ml @ 100 mls/hr O IV 03/10/24 07:00 03/10/24 08:00 Cancel Furosemide 20 mg BIDD IV 03/13/24 06:00 03/14/24 17:41 20 MG Ceftriaxone Sodium 50 ml @ 100 mls/hr DAILY@09 IV 03/14/24 09:00 03/16/24 10:31 100 MLS/HR Vancomycin HCl 250 ml @ 200 mls/hr Q12H IV 03/15/24 08:00 03/16/24 08:17 200 MLS/HR Methylprednisolone Sodium Succinate 80 mg BID IV 03/16/24 22:00 Laboratory Results Laboratory Tests 03/15/24 11:58 03/16/24 06:13 Urinalysis Test 03/10/24 22:00 Urine Color [place] (Yellow) H Urine Clarity Ex.turbid (Clear) Urine pH 6.0 (5.0-9.0) Urine Specific [place] 1.025 (1.001-1.035) Urine Protein 2+ (Negative) H Urine Ketones Trace (Negative) Urine Blood 2+ /uL (Negative) H Urine Nitrite Negative (Negative) Urine Bilirubin Negative (Negative) Urine Urobilinogen 4 mg/dL (Negative) H Urine Leukocyte Esterase Trace /uL (Negative) Urine RBC 36 /hpf (0 - 3) Urine WBC 29 /hpf (0 - 3) Urine Squamous Epithelial Cells Few /hpf (<5) Urine Bacteria Few /hpf (None Seen) H Urine Creatinine 196.38 mg/dL (30.0-125.0) H Urine Protein/Creatinine Ratio 1.29 Urine Sodium 16 mmol/L (40-220) L Urine Glucose Trace mg/dL (Normal) Urine Total Protein 253.3 mg/dL (1-14) H Microbiology Microbiology Date/Time Source Procedure Growth Status 03/09/24 16:32 Blood Blood Culture - Final NO GROWTH AFTER 5 DAYS OF INCUBATION. Complete Assessment/Plan Assessment/Plan Pancytopenia Symptomatic anemia- Monitor H&H SIRS- Abx R LE Swelling- DVT Ruled out, Venogram noted Myelodysplastic syndrome- Cont Outpatient followup Possible Acute Diastolic CHF- Lasix Thrombocytopenia, COPD, Schizophrenia, Tobacco dependence, Counseling > 19 mins Goals of care >17 mins FULL CODE Plan discussed with: Patient My Orders Orders - VENKAT SMILEY MD Procedure Category Date Status Time Basic Metabolic Panel LAB 03/17/24 Verified 04:00 Complete Blood Count LAB 03/17/24 Verified 04:00 Magnesium LAB 03/17/24 Verified 04:00 Methylprednisolone PHA 03/16/24 In Process Sod Succ (Solu Medrol 22:00 Date of Service: Mar 16, 2024 Billing Provider: VENKAT SMILEY MD Common Visit Codes: [id number] INP/OBS CARE(MOD) VENKAT SMILEY MD Mar 16, 2024 14:46
[2024-03-16 16:42] VITALS: BP 134/69; PULSE 97; RESP 20; TEMP 99; O2SAT 94
--- NOTE | 2024-03-16 18:05 | DVH ---
CLINICAL HISTORY: Swelling TECHNIQUE: Multisequence multiplanar MRI images of the right ankle were obtained without contrast. COMPARISON: None FINDINGS: BONES/JOINTS: There is hindfoot valgus malalignment medial tilt of the calcaneus with respect to the long axis of the tibia. There is pes planus deformity. Marrow edema and cystic change at the caudal aspect of the lateral talar facet and adjacent portions of the calcaneal sulcus near the angle of Gis sane, likely due to lateral hindfoot impingement secondary to the hindfoot valgus malalignment. Small amount of fluid in the adjacent portions of the subtalar joint. Moderate arthritic changes of the ta lonavicular joint and cuneonavicular joint. No significant joint effusion. TENDONS: Moderate tendinosis of the distal tibialis posterior tendon. Flexor digitorum longus and fle xor hallucis longus tendons are intact. Peroneus longus and brevis tendons are intact. Tibialis anter ior, extensor hallucis longus, and extensor digitorum longus tendons are intact. Moderate Achilles te ndinosis with moderate peritendinitis and prominent edema in Kager's fat pad. No Achilles tendon tear . There is mild marrow edema in the posterior calcaneus adjacent to the Achilles tendon insertion, li robbin reactive marrow changes. LIGAMENTS: Deltoid ligament complex is intact. Attenuated, indistinct fibers of the superomedial comp onent of the spring ligament complex, may be sequelae of prior sprain and/or scarring/degeneration. A ttenuated anterior talofibular ligament, likely scarring and degeneration from prior sprain or partia l tear. Syndesmotic ligaments are intact. Calcaneofibular ligament is intact. PLANTAR FASCIA: Mild edema adjacent to the calcaneal attachment of the plantar fascia. SINUS TARSI: Edema in the sinus tarsi. MUSCLES: Moderate fatty changes are seen in the abductor digiti minimi and abductor hallucis muscles. OTHER: Marked subcutaneous edema and ill-defined fluid around the ankle organized fluid collection id entified. IMPRESSION: 1. Marked subcutaneous edema and ill-defined fluid around the ankle, may be seen with cellulitis in t he appropriate clinical setting, although chronic venous stasis changes could also have a similar wilian earance. 2. Hindfoot valgus malalignment and pes planus deformity. 3. Findings consistent with lateral hindfoot impingement. 4. Arthritic changes as described above. 5. Medial and lateral ligamentous scarring and degeneration as detailed above. 6. Achilles tendinosis and peritendinitis. Likely reactive marrow changes in the posterior calcaneus. 7. Moderate fatty changes in the abductor digiti minimi and abductor hallucis muscles, may be due to chronic denervation. 8. 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 9. Additional findings as described above.
[2024-03-16 21:00] VITALS: BP 126/67; PULSE 80; RESP 18; TEMP 98; O2SAT 97
[2024-03-16] MEDS: methylPREDNISolone SOD SUCC 125 MG/2 ML VL IV SCH (23:04)
[2024-03-17] VITALS (9 sets, daily range): BP systolic 97–122; BP diastolic 58–69; PULSE 63–74; RESP 16–20; TEMP 97.8–98.8; O2SAT 99–100
[2024-03-17 07:29] LABS: Sodium 138 mmol/L (136-145)
[2024-03-17 07:30] LABS: Anion Gap 8 (5-15); Basophils # (auto) 0 10 ^3/uL (0-0.2); Calcium 8.9 mg/dL (8.7-10.4); Carbon Dioxide 23 mmol/L (20-31); Eosinophils # (auto) 0 10 ^3/uL (0-0.8); Lymphocytes # (auto) 0.3 10 ^3/uL (0.4-5.4); Mean Corpuscular Hgb Conc. 33.9 g/dL (32.0-36.0); Monocytes # (auto) 0 10 ^3/uL (0-1.3); Neutrophils # (auto) 3.3 10 ^3/uL (1.6-8.6); Platelet Count (auto) 29 10^3/uL (140-450)
[2024-03-17 07:34] LABS: Basophils % (auto) 0.4 % (0.0-2.0); Eosinophils % (auto) 0.4 % (0.0-7.0); Hemoglobin 7.5 g/dL (13.5-17.5); Lymphocytes % (auto) 8.7 % (10.0-50.0); Mean Corpuscular Hemoglobin 30.7 pg (28.0-32.0); Mean Corpuscular Volume 90.6 fL (80.0-100.0); Monocytes % (auto) 1.3 % (0.0-12.0); Neutrophils % (auto) 89.2 % (37.0-80.0); Nucleated Red Blood Cells % 0.1 %; Red Blood Cells 2.43 10^6/uL (4.5-5.90); Red Cell Distribution Width 15.5 % (11.8-14.3); White Blood Cell 3.6 10^3/uL (4.4-10.8)
[2024-03-17 07:35] LABS: BUN/Creatinine Ratio 28.6 (10.0-20.0); Blood Urea Nitrogen 18 mg/dL (9-23)
[2024-03-17 07:36] LABS: Chloride 107 mmol/L (98-107); Glucose 153 mg/dL (74-106); Magnesium 2.2 mg/dL (1.6-2.6)
[2024-03-17 08:59] LABS: Platelet Estimate Decreased
[2024-03-17 09:05] LABS: Large Platelets FEW
--- NOTE | 2024-03-17 10:11 | DVHINCON2 ---
Date of service: Mar 17, 2024 Reason for Consultation Right ankle swelling/infection History of Present Illness 68 yo M complains of right ankle pain/swelling for a few weeks but got worse o eloy the last week; he cant bear weight on right leg due to the pain and swelling; open wound started about a week ago he says with drainage; patient brought in due to weakness/fevers Past Medical History Anemia, Cancer, COPD, Schizophrenia Family History: Diabetes mellitus G8 MOTHER FH: heart attack G8 FATHER, Allergies: Coded Allergies: NO KNOWN ALLERGIES (Unverified , 12/04/23) Home Meds Active Scripts Hydrocodone-Acetaminophen (Hydrocodone Bitartrate/AC 10-325 mg) 1 Tab Tab, 1 TAB PO QID PRN, #30 TAB Prov:SHARON LUEVANO MD 02/23/24 Hydrocortone (Hydrocortisone 1%) 1 Applic Ap, 1 APPLIC TOP BID, #30 GRAMS Prov:JUAN ROGERS MD 02/08/24 Reported Medications Aspirin (Aspir-81) 81 Mg Tab, 1 TAB PO DAILY, #30 TAB 5 Refills 03/10/24 Albuterol Sulfate (Albuterol Sulfate Hfa) 108 Mcg/Act Aer, INH 01/30/24 Midodrine HCl (Midodrine Hydrochloride) 5 Mg Tab, 1 TAB PO TID 01/30/24 Risperidone (Risperidone) 2 Mg Tab, 2 MG PO BID, TAB 12/05/23 Nicotine (Nicoderm 21MG/24HR) 1 Patch Ph, 1 PATCH TOP DAILY, #28 PATCH 1 Refill 12/05/23 Mirtazapine (Mirtazapine Oral Disintegrating Tablet) 45 Mg Tab, 1 TAB PO QPM, #30 TAB 1 Refill 12/05/23 Melatonin (KP MELATONIN) 3 Mg Tab, 3 MG PO HS, TAB 12/05/23 Leuprolide Acetate (3 Month) (Lupron Depot) 22.5 Mg Inj, 22.5 MG IM, INJ 12/05/23 Gabapentin (Gabapentin) 600 Mg Tab, 600 MG PO BID, TAB 12/05/23 Folic Acid (Folic Acid) 1 Mg Tab, 1 MG PO DAILY for 30 Days, MG 12/05/23 Fluticasone Furoate (Inhalatio (Arnuity Ellipta) 200 Mcg/Act Inh, 200 MCG IN, INHALER 12/05/23 Atorvastatin Calcium (ATORVASTATIN CALCIUM) 40 Mg Tab, 1 TAB PO DAILY, #30 TAB 5 Refills 12/05/23 Albuterol Sulfate (VENTOLIN MDI) 90 Mcg Ih, 90 MCG IN, INH 12/05/23 Current Medications Current Medications Medications (Trade) Dose Ordered Sig/Fabricio Route PRN Reason Start Time Stop Time Status Last Admin Methylprednisolone Sodium Succinate (Solu Medrol) 80 mg BID IV 03/16/24 22:00 03/16/24 23:04 Review of Systems as per HPI Vital Signs Vital Signs Date Time Temp Pulse Resp B/P (MAP) Pulse Ox O2 Delivery O2 Flow Rate FiO2 03/17/24 09:00 98.6 69 20 109/58 (75) 99 98.6 03/16/24 20:00 Room Air* 0 21 Physical Exam NAD Aox3 verbal wn wd RLE: +swelling at right ankle and foot severe ttp diffusely around this area +5x3 cm area of opening around achilles +TA/GS/EHL/FHL charcot development findings at foot Labs/Diagnostic Data Labs Test 03/17/24 06:47 03/16/24 19:57 03/15/24 11:58 03/14/24 06:15 Range/Units White Blood Count 3.6 #L 4.4-10.8 10^3/uL Red Blood Count 2.43 L 4.5-5.90 10^6/uL Hemoglobin 7.5 L 13.5-17.5 g/dL Hematocrit 22.0 L 41.0-53.0 % Mean Corpuscular Volume 90.6 80.0-100.0 fL Mean Corpuscular Hemoglobin 30.7 28.0-32.0 pg Mean Corpuscular Hemoglobin Concent 33.9 32.0-36.0 g/dL Red Cell Distribution Width 15.5 H 11.8-14.3 % Platelet Count 29 #L 140-450 10^3/uL Mean Platelet Volume 9.1 6.9-10.8 fL Neutrophils (%) (Auto) 89.2 H 37.0-80.0 % Lymphocytes (%) (Auto) 8.7 L 10.0-50.0 % Monocytes (%) (Auto) 1.3 0.0-12.0 % Eosinophils (%) (Auto) 0.4 0.0-7.0 % Basophils (%) (Auto) 0.4 0.0-2.0 % Neutrophils # (Auto) 3.3 1.6-8.6 10 ^3/uL Lymphocytes # (Auto) 0.3 L 0.4-5.4 10 ^3/uL Monocytes # (Auto) 0 0-1.3 10 ^3/uL Eosinophils # (Auto) 0 0-0.8 10 ^3/uL Basophils # (Auto) 0 0-0.2 10 ^3/uL Nucleated Red Blood Cells 0.1 % Platelet Estimate Decreased Large Platelets Few Sodium Level 138 136-145 mmol/L Potassium Level 4.0 3.5-5.1 mmol/L Chloride Level 107 98-107 mmol/L Carbon Dioxide Level 23 20-31 mmol/L Anion Gap 8 5-15 Blood Urea Nitrogen 18 9-23 mg/dL Creatinine 0.63 L 0.700-1.30 mg/dL Glomerular Filtration Rate Calc 105 >90 mL/min BUN/Creatinine Ratio 28.6 H 10.0-20.0 Serum Glucose 153 H 74-106 mg/dL Calcium Level 8.9 8.7-10.4 mg/dL Magnesium Level 2.2 1.6-2.6 mg/dL Vancomycin Level Trough 10.2 H 5-10 ug/mL Uric Acid 3.2 L 3.7-9.2 mg/dL Differential Total Cells Counted 100.0 100 Neutrophils % (Manual) 89 H 37.0-80.0 Band Neutrophils % (Manual) 5 Lymphocytes % (Manual) 3 L 10.0-50.0 Monocytes % (Manual) 1 0-12 Eosinophils % (Manual) 2 0-7 Basophils % (Manual) 0 0.0-2.0 Metamyelocytes % (manual) 0 Myelocytes % (Manual) 0 Promyelocytes % (Manual) 0 Blast Cells % (Manual) 0 Reactive Lymphocytes 0 Test 03/10/24 22:00 03/10/24 08:25 03/10/24 05:44 03/09/24 20:09 Range/Units Urine Color [place] H Yellow Urine Clarity Ex.turbid Clear Urine pH 6.0 5.0-9.0 Urine Specific [place] 1.025 1.001-1.035 Urine Protein 2+ H Negative Urine Ketones Trace Negative Urine Blood 2+ H Negative /uL Urine Nitrite Negative Negative Urine Bilirubin Negative Negative Urine Urobilinogen 4 H Negative mg/dL Urine Leukocyte Esterase Trace Negative /uL Urine RBC 36 0 - 3 /hpf Urine WBC 29 0 - 3 /hpf Urine Squamous Epithelial Cells Few <5 /hpf Urine Bacteria Few H None Seen /hpf Urine Creatinine 196.38 H 30.0-125.0 mg/dL Urine Protein/Creatinine Ratio 1.29 Urine Sodium 16 L 40-220 mmol/L Urine Glucose Trace Normal mg/dL Urine Total Protein 253.3 H 1-14 mg/dL Urine Opiates Screen Neg NEGATIVE Urine Fentanyl Screen Neg NEGATIVE Urine Barbiturates Screen Neg NEGATIVE Urine Phencyclidine Screen Neg NEGATIVE Urine Amphetamines Screen Neg NEGATIVE Urine Benzodiazepines Screen Neg NEGATIVE Urine Cocaine Screen Neg NEGATIVE Urine Cannabinoids Screen Pos NEGATIVE Lactic Acid Level 1.8 0.4-2.0 mmol/L Phosphorus Level 2.2 L 2.4-5.1 mg/dL Total Bilirubin 1.2 H 0.2-1.0 mg/dL Aspartate Amino Transferase (AST) 30 13-40 U/L Alanine Aminotransferase (ALT) 48 H 7-40 U/L Alkaline Phosphatase 68 46-116 U/L Total Protein 6.5 5.7-8.2 g/dL Albumin 3.4 3.2-4.8 g/dL Hepatitis B Surface Antigen Negative Negative Hepatitis C Antibody Negative Negative Troponin I High Sensitivity 12 </=54 ng/L Test 03/09/24 19:55 03/09/24 16:32 Range/Units Influenza Type A Antigen Negative Negative Influenza Type B Antigen Negative Negative SARS-CoV-2 Antigen (Rapid) Negative NEGATIVE B-Type Natriuretic Peptide 162.31 0-100 pg/mL Microbiology Date/Time Source Procedure Growth Status 03/09/24 16:32 Blood Blood Culture - Final NO GROWTH AFTER 5 DAYS OF INCUBATION. Complete Plan/Recommendation 68 yo M with right foot/ankle infection 1. I had a long discussion with patient regarding his condition. Patient will benefit from a right ankle irrigation and debridement. I will defer to Dr. Bell to see if he would like to do this otherwise I will plan on doing it 2. IV abx 3. pain control 4. NWB RLE Plan discussed with: Patient MICHAEL KELLER MD Mar 17, 2024 10:11
--- NOTE | 2024-03-17 11:54 | DVHPN2 ---
Subjective Seen and examined at bedside. Platelets improving. Keep NPO after midnight for possible I&D by podiatry. MRI reviewed. Cont steroids Reviewed: Care Plan, H&P, Labs, Medications, Previous Orders, Radiology Changes from previous H/P or p: No Changes Eyes: No Pain, No Vision change, No Conjunctivae inflammation, No Eyelid inflammation, No Other, No Redness ENT: No Ear pain, No Ear discharge, No Nose pain, No Nose discharge, No Nose congestion, No Mouth pain, No Mouth swelling, No Throat pain, No Throat swelling, No Other Cardiovascular: No Chest Pain, No Palpitations, No Orthopnea, No Paroxysmal Noc. Dyspnea, No Edema, No Lt Headedness, No Other Gastrointestinal: No Nausea, No Vomiting, No Abdominal Pain, No Diarrhea, No Constipation, No Melena, No Hematochezia, No Other Genitourinary: No Dysuria, No Frequency, No Incontinence, No Hematuria, No Retention, No Other Skin: No Rash, No Lesions, No Jaundice, No Bruising, No Other Objective Vitals Vital Signs Date Time Temp Pulse Resp B/P (MAP) Pulse Ox O2 Delivery O2 Flow Rate FiO2 03/17/24 09:00 98.6 69 20 109/58 (75) 99 98.6 03/17/24 08:00 Room Air* 0 21 Intake/Output Intake and Output 03/17/24 07:00 Intake Total 2260 ml Output Total 1790 ml Balance 470 ml Intake Oral 1760 ml IV Total 500 ml Output Urine Total 1790 ml General Appearance: Alert, Oriented X3, Cooperative, No acute distress HEENT: Atraumatic Lungs: Clear to auscultation Cardiovascular: Regular rate, Normal S1, Normal S2 Abdomen: Normal bowel sounds, Soft Extremities: Other (RLE Swelling+) Psych/Mental Status: Mental status NL Medications Current Medications Medications Dose Ordered Sig/Fabricio Route Start Time Stop Time Status Last Admin Dose Admin Vancomycin HCl 0 ml @ 0 mls/hr UD IV 03/09/24 20:30 Acetaminophen/ Hydrocodone Bitart 1 tab Q4HP PRN PO 03/09/24 20:30 03/16/24 23:06 1 TAB Ondansetron HCl 4 mg Q4HP PRN IV 03/09/24 20:30 Docusate Sodium 100 mg BIDPRN PRN PO 03/09/24 20:30 Acetaminophen 650 mg Q6HP PRN PO 03/09/24 20:30 03/16/24 05:16 650 MG Heparin Sodium (Porcine) 5,000 units Q12HR SC 03/09/24 22:00 Hold Nitroglycerin 0.4 mg Q5MINP PRN SL 03/09/24 22:30 Morphine Sulfate 2 mg Q30M PRN IV 03/09/24 22:30 Midodrine 10 mg TID@0600,1200,1800 PO 03/10/24 06:00 03/17/24 11:49 10 MG Vancomycin HCl 750 mg/Dextrose 100 ml @ 100 mls/hr O IV 03/10/24 07:00 03/10/24 08:00 Cancel Furosemide 20 mg BIDD IV 03/13/24 06:00 03/17/24 05:41 20 MG Ceftriaxone Sodium 50 ml @ 100 mls/hr DAILY@09 IV 03/14/24 09:00 03/17/24 10:14 100 MLS/HR Vancomycin HCl 250 ml @ 200 mls/hr Q12H IV 03/15/24 08:00 03/17/24 08:32 200 MLS/HR Methylprednisolone Sodium Succinate 80 mg BID IV 03/16/24 22:00 03/17/24 10:15 80 MG Laboratory Results Laboratory Tests 03/17/24 06:47 Chemistry Test 03/17/24 06:47 Calcium Level 8.9 mg/dL (8.7-10.4) Magnesium Level 2.2 mg/dL (1.6-2.6) Urinalysis Test 03/10/24 22:00 Urine Color [place] (Yellow) H Urine Clarity Ex.turbid (Clear) Urine pH 6.0 (5.0-9.0) Urine Specific [place] 1.025 (1.001-1.035) Urine Protein 2+ (Negative) H Urine Ketones Trace (Negative) Urine Blood 2+ /uL (Negative) H Urine Nitrite Negative (Negative) Urine Bilirubin Negative (Negative) Urine Urobilinogen 4 mg/dL (Negative) H Urine Leukocyte Esterase Trace /uL (Negative) Urine RBC 36 /hpf (0 - 3) Urine WBC 29 /hpf (0 - 3) Urine Squamous Epithelial Cells Few /hpf (<5) Urine Bacteria Few /hpf (None Seen) H Urine Creatinine 196.38 mg/dL (30.0-125.0) H Urine Protein/Creatinine Ratio 1.29 Urine Sodium 16 mmol/L (40-220) L Urine Glucose Trace mg/dL (Normal) Urine Total Protein 253.3 mg/dL (1-14) H Microbiology Microbiology Date/Time Source Procedure Growth Status 03/09/24 16:32 Blood Blood Culture - Final NO GROWTH AFTER 5 DAYS OF INCUBATION. Complete Assessment/Plan Assessment/Plan Pancytopenia Symptomatic anemia- Monitor H&H SIRS- Abx R LE Swelling- DVT Ruled out, Venogram noted. MRI done for possible I&D Myelodysplastic syndrome- Cont Outpatient followup Possible Acute Diastolic CHF- Lasix Thrombocytopenia, COPD, Schizophrenia, Tobacco dependence, Counseling > 19 mins Goals of care >17 mins FULL CODE Plan discussed with: Patient My Orders Orders - VENKAT SMILEY MD Procedure Category Date Status Time Mri R Ankle Wo MRI 03/16/24 Resulted Contrast 14:45 Discontinue Tele KATIA 03/16/24 In Process 14:48 *Consult Dr. Hsu CONS 03/16/24 Transmitted Mayda 18:44 * Wound Consult CONS 03/16/24 Transmitted Transfuse Blood ORDERS 03/17/24 Transmitted Product 10:02 Packedcell-Noactive BBK 03/17/24 Logged Bleeding 10:02 Basic Metabolic Panel LAB 03/18/24 Verified 04:00 Complete Blood Count LAB 03/18/24 Verified 04:00 Erythrocyte LAB 03/17/24 Logged Sedimentation Rate 10:10 Prothrombin Time W/ LAB 03/18/24 Verified INR 04:00 Partial LAB 03/18/24 Verified Thromboplastin Time 04:00 Type And Screen BBK 03/17/24 Logged 11:02 Npo After Midnight DIET 03/17/24 Transmitted Lunch Pheresis Platelets BBK 03/18/24 Logged 06:00 Date of Service: Mar 17, 2024 Billing Provider: VENKAT SMILEY MD Common Visit Codes: [id number] INP/OBS CARE(MOD) VENKAT SMILEY MD Mar 17, 2024 11:54
[2024-03-17 13:52] LABS: Erythrocyte Sedimentation Rate > 140 mm/hr (0-20)
[2024-03-17] MEDS: VANCOMYCIN 1.25GM/250ML 250 ML IV SCH (18:41)
[2024-03-18] VITALS (9 sets, daily range): BP systolic 92–105; BP diastolic 53–67; PULSE 51–63; RESP 14–20; TEMP 97.8–98.4; O2SAT 96–100
[2024-03-18 08:17] LABS: Calcium 8.8 mg/dL (8.7-10.4); Chloride 106 mmol/L (98-107); Potassium 4.2 mmol/L (3.5-5.1); Sodium 138 mmol/L (136-145)
[2024-03-18 08:18] LABS: Anion Gap 7 (5-15); Carbon Dioxide 25 mmol/L (20-31)
[2024-03-18 08:23] LABS: BUN/Creatinine Ratio 43.1 (10.0-20.0)
[2024-03-18 08:24] LABS: Basophils # (auto) 0 10 ^3/uL (0-0.2); Basophils % (auto) 0.7 % (0.0-2.0); Eosinophils # (auto) 0 10 ^3/uL (0-0.8); Eosinophils % (auto) 1.2 % (0.0-7.0); Hematocrit 23.2 % (41.0-53.0); Hemoglobin 7.8 g/dL (13.5-17.5); Lymphocytes # (auto) 0.3 10 ^3/uL (0.4-5.4); Lymphocytes % (auto) 13.5 % (10.0-50.0); Mean Corpuscular Hemoglobin 30.3 pg (28.0-32.0); Mean Corpuscular Hgb Conc. 33.8 g/dL (32.0-36.0); Mean Corpuscular Volume 89.8 fL (80.0-100.0); Monocytes # (auto) 0 10 ^3/uL (0-1.3); Monocytes % (auto) 1.3 % (0.0-12.0); Neutrophils # (auto) 2.1 10 ^3/uL (1.6-8.6); Neutrophils % (auto) 83.3 % (37.0-80.0); Platelet Count (auto) 45 10^3/uL (140-450); Red Blood Cells 2.59 10^6/uL (4.5-5.90); White Blood Cell 2.6 10^3/uL (4.4-10.8)
[2024-03-18 08:34] LABS: Blood Urea Nitrogen 25 mg/dL (9-23); Glucose 130 mg/dL (74-106)
[2024-03-18 08:50] LABS: INR 1.21 (0.9-1.15); Partial Thromboplastin Time 26.5 SEC (24.5-34.5); Prothrombin Time 12.6 sec (9.3-11.8)
--- NOTE | 2024-03-18 10:46 | DVH ---
Procedure: MRI MRI R ANKLE WITH WO CONTRA 03/18/2024 08:58 AM INDICATION: right ankle infection COMPARISON: MRI MRI R ANKLE WO CONTRAST on DOS: 03/16/24 TECHNIQUE: MRI of the right ankle after uneventful administration of intravenous contrast utilizing T 1 fat saturated sequence seen axial, coronal and sagittal planes. FINDINGS: A U-shaped fluid collection is seen involving the posterior and lateral aspects of the Achilles tendo n extending to the adjacent Kager's fat pad measuring up to 5 mm in thickness with peripheral enhance ment there is mild thickening and moderate signal alteration of achilles tendon reflecting tendinosis with no evidence for tendon tear. Moderate focal bone marrow edema is seen in the posterior- superio r calcaneus without cortical erosion or lytic osseous lesion likely reactive in nature. Minimal retr ocalcaneal bursal fluid distention noted. Small posterior and plantar calcaneal spurs are seen. Mild proximal plantar fascia thickening and signal alteration reflecting plantar fasciitis. There is moder ate subcutaneous edema without a drainable fluid collection. The flexor, extensor and peroneal tendon s are grossly unremarkable in postcontrast images. IMPRESSION: 1. Achilles tendinosis and peritendinitis likely infectious or inflammatory. A thin, U-shaped periphe rally enhancing fluid collection noted in the posterior and lateral aspects of mid Achilles tendon wh ich may reflect a developing abscess. Recommend clinical and biochemical correlation sonographic or M RI follow-up after treatment of presumed infection to monitor regression. 2. Moderate focal bone marrow edema in calcaneal Rudy deformity likely reactive edema. No cortical erosion or lytic osseous lesion seen at this time to suggest osteomyelitis. 3. Moderate cellulitis edema in kager's fat pad. Minimal retrocalcaneal bursitis.
[2024-03-18 11:57] LABS: Platelet Estimate Decreased
[2024-03-18 12:00] LABS: Large Platelets FEW
--- NOTE | 2024-03-18 13:06 | DVHPN2 ---
Subjective Seen and examined at bedside. Platelets improving. MRi with IV Contrast done. Reviewed: Care Plan, H&P, Labs, Medications, Previous Orders, Radiology Changes from previous H/P or p: No Changes Eyes: No Pain, No Vision change, No Conjunctivae inflammation, No Eyelid inflammation, No Other, No Redness ENT: No Ear pain, No Ear discharge, No Nose pain, No Nose discharge, No Nose congestion, No Mouth pain, No Mouth swelling, No Throat pain, No Throat swelling, No Other Cardiovascular: No Chest Pain, No Palpitations, No Orthopnea, No Paroxysmal Noc. Dyspnea, No Edema, No Lt Headedness, No Other Gastrointestinal: No Nausea, No Vomiting, No Abdominal Pain, No Diarrhea, No Constipation, No Melena, No Hematochezia, No Other Genitourinary: No Dysuria, No Frequency, No Incontinence, No Hematuria, No Retention, No Other Skin: No Rash, No Lesions, No Jaundice, No Bruising, No Other Objective Vitals Vital Signs Date Time Temp Pulse Resp B/P (MAP) Pulse Ox O2 Delivery O2 Flow Rate FiO2 03/18/24 09:00 98.3 63 20 105/61 (76) 97 98.3 03/17/24 20:00 Room Air* 0 21 Intake/Output Intake and Output 03/18/24 07:00 Intake Total 3120 ml Output Total 2831 ml Balance 289 ml Intake Oral 1770 ml IV Total 550 ml Blood Product 300 ml Other 500 ml Output Urine Total 2830 ml Stool Total 1 ml # Bowel Movements 1 General Appearance: Alert, Oriented X3, Cooperative, No acute distress HEENT: Atraumatic Lungs: Clear to auscultation Cardiovascular: Regular rate, Normal S1, Normal S2 Abdomen: Normal bowel sounds, Soft Extremities: Other (RLE Swelling+) Psych/Mental Status: Mental status NL Medications Current Medications Medications Dose Ordered Sig/Fabricio Route Start Time Stop Time Status Last Admin Dose Admin Vancomycin HCl 0 ml @ 0 mls/hr UD IV 03/09/24 20:30 Acetaminophen/ Hydrocodone Bitart 1 tab Q4HP PRN PO 03/09/24 20:30 03/17/24 21:01 1 TAB Ondansetron HCl 4 mg Q4HP PRN IV 03/09/24 20:30 Docusate Sodium 100 mg BIDPRN PRN PO 03/09/24 20:30 Acetaminophen 650 mg Q6HP PRN PO 03/09/24 20:30 03/16/24 05:16 650 MG Heparin Sodium (Porcine) 5,000 units Q12HR SC 03/09/24 22:00 Hold Nitroglycerin 0.4 mg Q5MINP PRN SL 03/09/24 22:30 Morphine Sulfate 2 mg Q30M PRN IV 03/09/24 22:30 Midodrine 10 mg TID@0600,1200,1800 PO 03/10/24 06:00 03/18/24 05:41 10 MG Vancomycin HCl 750 mg/Dextrose 100 ml @ 100 mls/hr O IV 03/10/24 07:00 03/10/24 08:00 Cancel Furosemide 20 mg BIDD IV 03/13/24 06:00 03/17/24 18:25 20 MG Ceftriaxone Sodium 50 ml @ 100 mls/hr DAILY@09 IV 03/14/24 09:00 03/18/24 09:00 100 MLS/HR Methylprednisolone Sodium Succinate 80 mg BID IV 03/16/24 22:00 03/18/24 09:46 80 MG Vancomycin HCl 250 ml @ 200 mls/hr Q10H IV 03/18/24 14:00 Laboratory Results Laboratory Tests 03/18/24 07:03 Chemistry Test 03/18/24 07:03 Calcium Level 8.8 mg/dL (8.7-10.4) Coagulation Test 03/18/24 07:03 Prothrombin Time 12.6 sec (9.3-11.8) H Prothrombin Time INR 1.21 (0.9-1.15) H Activated Partial Thromboplast Time 26.5 SEC (24.5-34.5) Urinalysis Test 03/10/24 22:00 Urine Color [place] (Yellow) H Urine Clarity Ex.turbid (Clear) Urine pH 6.0 (5.0-9.0) Urine Specific [place] 1.025 (1.001-1.035) Urine Protein 2+ (Negative) H Urine Ketones Trace (Negative) Urine Blood 2+ /uL (Negative) H Urine Nitrite Negative (Negative) Urine Bilirubin Negative (Negative) Urine Urobilinogen 4 mg/dL (Negative) H Urine Leukocyte Esterase Trace /uL (Negative) Urine RBC 36 /hpf (0 - 3) Urine WBC 29 /hpf (0 - 3) Urine Squamous Epithelial Cells Few /hpf (<5) Urine Bacteria Few /hpf (None Seen) H Urine Creatinine 196.38 mg/dL (30.0-125.0) H Urine Protein/Creatinine Ratio 1.29 Urine Sodium 16 mmol/L (40-220) L Urine Glucose Trace mg/dL (Normal) Urine Total Protein 253.3 mg/dL (1-14) H Microbiology Microbiology Date/Time Source Procedure Growth Status 03/09/24 16:32 Blood Blood Culture - Final NO GROWTH AFTER 5 DAYS OF INCUBATION. Complete Assessment/Plan Assessment/Plan Pancytopenia Symptomatic anemia- Monitor H&H SIRS- Abx R LE Swelling- DVT Ruled out, Venogram noted. MRI done for possible I&D Myelodysplastic syndrome- Cont Outpatient followup Possible Acute Diastolic CHF- Lasix Thrombocytopenia, COPD, Schizophrenia, Tobacco dependence, Counseling > 19 mins Goals of care >17 mins FULL CODE Plan discussed with: Patient My Orders Orders - VENKAT SMILEY MD Procedure Category Date Status Time Npo After Midnight DIET 03/18/24 Transmitted Breakfast Methylprednisolone PHA 03/18/24 Verified Sod Succ (Solu Medrol 22:00 Basic Metabolic Panel LAB 03/19/24 Verified 04:00 Date of Service: Mar 18, 2024 Billing Provider: VENKAT SMILEY MD Common Visit Codes: [id number] INP/OBS CARE(HIGH) VENKAT SMILEY MD Mar 18, 2024 13:06
[2024-03-18 13:35] LABS: Rapid Influenza A Negative (Negative); Rapid Influenza B Negative (Negative)
[2024-03-18] MEDS: VANCOMYCIN 1.25GM/250ML 250 ML IV SCH (15:45)
[2024-03-18] MEDS: GADOTERATE MEG 10 MMOL/20ml INJ (0.5MMOL/ml) IV ONE (15:50)
[2024-03-18] MEDS: methylPREDNISolone SOD SUCC 40 MG/ML VL IV SCH (21:31)
[2024-03-19] VITALS (9 sets, daily range): BP systolic 93–101; BP diastolic 44–60; PULSE 60–82; RESP 15–20; TEMP 97.6–99.4; O2SAT 93–99
[2024-03-19 07:55] LABS: Chloride 105 mmol/L (98-107); Potassium 4.3 mmol/L (3.5-5.1); Sodium 137 mmol/L (136-145)
[2024-03-19 07:56] LABS: Anion Gap 5 (5-15); Carbon Dioxide 27 mmol/L (20-31)
[2024-03-19 07:57] LABS: Calcium 8.9 mg/dL (8.7-10.4)
[2024-03-19 07:59] LABS: Basophils # (auto) 0 10 ^3/uL (0-0.2); Eosinophils # (auto) 0.1 10 ^3/uL (0-0.8); Eosinophils % (auto) 3.2 % (0.0-7.0); Lymphocytes # (auto) 0.6 10 ^3/uL (0.4-5.4); Mean Corpuscular Volume 90.8 fL (80.0-100.0); Monocytes # (auto) 0 10 ^3/uL (0-1.3); Neutrophils # (auto) 1.4 10 ^3/uL (1.6-8.6); White Blood Cell 2.1 10^3/uL (4.4-10.8)
[2024-03-19 08:02] LABS: BUN/Creatinine Ratio 33.3 (10.0-20.0); Basophils % (auto) 0.6 % (0.0-2.0); Blood Urea Nitrogen 22 mg/dL (9-23); Glucose 110 mg/dL (74-106); Hemoglobin 8.2 g/dL (13.5-17.5); Mean Corpuscular Hgb Conc. 34.2 g/dL (32.0-36.0); Monocytes % (auto) 1.3 % (0.0-12.0); Neutrophils % (auto) 67.9 % (37.0-80.0); Platelet Count (auto) 49 10^3/uL (140-450); Red Blood Cells 2.64 10^6/uL (4.5-5.90); Red Cell Distribution Width 14.9 % (11.8-14.3)
[2024-03-19] MEDS: BUPIVACAINE HCL 50 ML ONE (08:41)
--- NOTE | 2024-03-19 09:22 | DVHINCON2 ---
Date Seen: Mar 19, 2024 Reason for Consultation Left Achilles wound History of Present Illness The patient is a 68-year-old male with past medical history of cancer, anemia, COPD, and schizophrenia who presented to [facility] ED with complaint of shortness of breaths. Patient reports symptoms progressively get worse with right leg swelling, painful right leg, fever, getting worse that prompted this visit. Patient was seen and evaluated in the ED, laboratory data shows WBC 7.0, hemoglobin 9.8, hematocrit 28.9, platelets [id number], sodium 138, potassium 4.1, BUN 24, creatinine 1.32, glucose 124, total bilirubin 1.5, troponin 12, lactic acid 5.3 trending down to 3.9, blood pressure 99/52, heart rate 108, temperature 100.0 F, O2 saturation 95% on oxygen. Patient was started on IV antibiotic regimen vancomycin, please see medication orders section in the computer. On my assessment, patient denied chest pain, no headache, no dizziness, no diaphoresis, currently on oxygen, no nausea, no vomiting, no chills. Patient was admitted for further evaluation and medical management. Past Medical History See H&P Past Surgical History See H&P Family History: Diabetes mellitus G8 MOTHER FH: heart attack G8 FATHER, Allergies: Coded Allergies: NO KNOWN ALLERGIES (Unverified , 12/04/23) Home Meds Active Scripts Hydrocodone-Acetaminophen (Hydrocodone Bitartrate/AC 10-325 mg) 1 Tab Tab, 1 TAB PO QID PRN, #30 TAB Prov:SHARON LUEVANO MD 02/23/24 Hydrocortone (Hydrocortisone 1%) 1 Applic Ap, 1 APPLIC TOP BID, #30 GRAMS Prov:JUAN RGOERS MD 02/08/24 Reported Medications Aspirin (Aspir-81) 81 Mg Tab, 1 TAB PO DAILY, #30 TAB 5 Refills 03/10/24 Albuterol Sulfate (Albuterol Sulfate Hfa) 108 Mcg/Act Aer, INH 01/30/24 Midodrine HCl (Midodrine Hydrochloride) 5 Mg Tab, 1 TAB PO TID 01/30/24 Risperidone (Risperidone) 2 Mg Tab, 2 MG PO BID, TAB 12/05/23 Nicotine (Nicoderm 21MG/24HR) 1 Patch Ph, 1 PATCH TOP DAILY, #28 PATCH 1 Refill 12/05/23 Mirtazapine (Mirtazapine Oral Disintegrating Tablet) 45 Mg Tab, 1 TAB PO QPM, #30 TAB 1 Refill 12/05/23 Melatonin (KP MELATONIN) 3 Mg Tab, 3 MG PO HS, TAB 12/05/23 Leuprolide Acetate (3 Month) (Lupron Depot) 22.5 Mg Inj, 22.5 MG IM, INJ 12/05/23 Gabapentin (Gabapentin) 600 Mg Tab, 600 MG PO BID, TAB 12/05/23 Folic Acid (Folic Acid) 1 Mg Tab, 1 MG PO DAILY for 30 Days, MG 12/05/23 Fluticasone Furoate (Inhalatio (Arnuity Ellipta) 200 Mcg/Act Inh, 200 MCG IN, INHALER 12/05/23 Atorvastatin Calcium (ATORVASTATIN CALCIUM) 40 Mg Tab, 1 TAB PO DAILY, #30 TAB 5 Refills 12/05/23 Albuterol Sulfate (VENTOLIN MDI) 90 Mcg Ih, 90 MCG IN, INH 12/05/23 Current Medications Current Medications Medications (Trade) Dose Ordered Sig/Fabricio Route PRN Reason Start Time Stop Time Status Last Admin Vancomycin HCl 250 ml @ 200 mls/hr Q10H IV 03/18/24 14:00 03/19/24 01:10 Methylprednisolone Sodium Succinate (Solu Medrol) 40 mg BID IV 03/18/24 22:00 03/18/24 21:31 Vital Signs Vital Signs Date Time Temp Pulse Resp B/P (MAP) Pulse Ox O2 Delivery O2 Flow Rate FiO2 03/19/24 05:44 102/65 03/19/24 05:00 98.7 60 18 96 98.7 03/18/24 20:00 Room Air* 0 21 Physical Exam DERMATOLOGIC EXAM: - Skin is dry and cool to the touch dry bilaterally. - Nails 1-5 of the bilateral foot are thickened, discolored, dystrophic, and tender to palpate with subungual debris - Hair loss noted to bilateral feet Wound #1: Location: Left Achilles Measurements: Length 1 cm x width 1 cm x depth 0.7 cm. Wound margins: Hyperkeratotic. Wound base: Full thickness. General Appearance: Healthy and bleeding. Probes to Bone: No Purulent drainage: Yes Serous drainage: Yes Erythema: Periwound VASCULAR EXAM: - DP and PT pulses are palpable bilaterally. - PATROL CONDUCTOR is brisk to all digits. - Feet are cool to touch compared to lower legs bilaterally. NEUROLOGIC EXAM: - Normal light touch sensation to the superficial peroneal, deep peroneal, sural, saphenous, and tibial nerve branches. - Protective sensation is diminished as tested with a 5.07 10g [place] bilaterally. MUSCULOSKELETAL EXAM: - No gross deformities - Muscle strength is 5/5 and active motion is pain-free and symmetrical bilaterally - No pain or crepitation with passive range of motion bilaterally to all major pedal joints Labs/Diagnostic Data Labs Test 03/19/24 06:34 03/18/24 11:12 03/18/24 07:03 03/17/24 12:05 Range/Units White Blood Count 2.1 L 4.4-10.8 10^3/uL Red Blood Count 2.64 L 4.5-5.90 10^6/uL Hemoglobin 8.2 L 13.5-17.5 g/dL Hematocrit 24.0 L 41.0-53.0 % Mean Corpuscular Volume 90.8 80.0-100.0 fL Mean Corpuscular Hemoglobin 31.0 28.0-32.0 pg Mean Corpuscular Hemoglobin Concent 34.2 32.0-36.0 g/dL Red Cell Distribution Width 14.9 H 11.8-14.3 % Platelet Count 49 L 140-450 10^3/uL Mean Platelet Volume 10.1 6.9-10.8 fL Neutrophils (%) (Auto) 67.9 37.0-80.0 % Lymphocytes (%) (Auto) 27.0 10.0-50.0 % Monocytes (%) (Auto) 1.3 0.0-12.0 % Eosinophils (%) (Auto) 3.2 0.0-7.0 % Basophils (%) (Auto) 0.6 0.0-2.0 % Neutrophils # (Auto) 1.4 L 1.6-8.6 10 ^3/uL Lymphocytes # (Auto) 0.6 0.4-5.4 10 ^3/uL Monocytes # (Auto) 0 0-1.3 10 ^3/uL Eosinophils # (Auto) 0.1 0-0.8 10 ^3/uL Basophils # (Auto) 0 0-0.2 10 ^3/uL Nucleated Red Blood Cells 0.0 % Sodium Level 137 136-145 mmol/L Potassium Level 4.3 3.5-5.1 mmol/L Chloride Level 105 98-107 mmol/L Carbon Dioxide Level 27 20-31 mmol/L Anion Gap 5 5-15 Blood Urea Nitrogen 22 9-23 mg/dL Creatinine 0.66 L 0.700-1.30 mg/dL Glomerular Filtration Rate Calc 103 >90 mL/min BUN/Creatinine Ratio 33.3 H 10.0-20.0 Serum Glucose 110 H 74-106 mg/dL Calcium Level 8.9 8.7-10.4 mg/dL Influenza Type A Antigen Negative Negative Influenza Type B Antigen Negative Negative Large Platelets Few Prothrombin Time 12.6 H 9.3-11.8 sec Prothrombin Time INR 1.21 H 0.9-1.15 Activated Partial Thromboplast Time 26.5 24.5-34.5 SEC Erythrocyte Sedimentation Rate > 140 H 0-20 mm/hr Test 03/17/24 06:47 03/16/24 19:57 03/15/24 11:58 03/14/24 06:15 Range/Units Magnesium Level 2.2 1.6-2.6 mg/dL C-Reactive Protein High Sensitivity > 20.00 H <1.0 mg/dL Vancomycin Level Trough 10.2 H 5-10 ug/mL Uric Acid 3.2 L 3.7-9.2 mg/dL Differential Total Cells Counted 100.0 100 Neutrophils % (Manual) 89 H 37.0-80.0 Band Neutrophils % (Manual) 5 Lymphocytes % (Manual) 3 L 10.0-50.0 Monocytes % (Manual) 1 0-12 Eosinophils % (Manual) 2 0-7 Basophils % (Manual) 0 0.0-2.0 Metamyelocytes % (manual) 0 Myelocytes % (Manual) 0 Promyelocytes % (Manual) 0 Blast Cells % (Manual) 0 Reactive Lymphocytes 0 Test 03/10/24 22:00 03/10/24 08:25 03/10/24 05:44 03/09/24 20:09 Range/Units Urine Color [place] H Yellow Urine Clarity Ex.turbid Clear Urine pH 6.0 5.0-9.0 Urine Specific [place] 1.025 1.001-1.035 Urine Protein 2+ H Negative Urine Ketones Trace Negative Urine Blood 2+ H Negative /uL Urine Nitrite Negative Negative Urine Bilirubin Negative Negative Urine Urobilinogen 4 H Negative mg/dL Urine Leukocyte Esterase Trace Negative /uL Urine RBC 36 0 - 3 /hpf Urine WBC 29 0 - 3 /hpf Urine Squamous Epithelial Cells Few <5 /hpf Urine Bacteria Few H None Seen /hpf Urine Creatinine 196.38 H 30.0-125.0 mg/dL Urine Protein/Creatinine Ratio 1.29 Urine Sodium 16 L 40-220 mmol/L Urine Glucose Trace Normal mg/dL Urine Total Protein 253.3 H 1-14 mg/dL Urine Opiates Screen Neg NEGATIVE Urine Fentanyl Screen Neg NEGATIVE Urine Barbiturates Screen Neg NEGATIVE Urine Phencyclidine Screen Neg NEGATIVE Urine Amphetamines Screen Neg NEGATIVE Urine Benzodiazepines Screen Neg NEGATIVE Urine Cocaine Screen Neg NEGATIVE Urine Cannabinoids Screen Pos NEGATIVE Lactic Acid Level 1.8 0.4-2.0 mmol/L Phosphorus Level 2.2 L 2.4-5.1 mg/dL Total Bilirubin 1.2 H 0.2-1.0 mg/dL Aspartate Amino Transferase (AST) 30 13-40 U/L Alanine Aminotransferase (ALT) 48 H 7-40 U/L Alkaline Phosphatase 68 46-116 U/L Total Protein 6.5 5.7-8.2 g/dL Albumin 3.4 3.2-4.8 g/dL Hepatitis B Surface Antigen Negative Negative Hepatitis C Antibody Negative Negative Troponin I High Sensitivity 12 </=54 ng/L Test 03/09/24 19:55 03/09/24 16:32 Range/Units SARS-CoV-2 Antigen (Rapid) Negative NEGATIVE B-Type Natriuretic Peptide 162.31 0-100 pg/mL Microbiology Date/Time Source Procedure Growth Status 03/09/24 16:32 Blood Blood Culture - Final NO GROWTH AFTER 5 DAYS OF INCUBATION. 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 - reviewed MRI with contrast showing a small collection of fluid at the posterolateral Achilles - recommend we take the patient to the OR to drain it - we will take him to the OR today and get cultures - patient has been NPO since midnight - cultures will be taken the OR All questions were answered and concerns addressed to the patient's satisfaction. The patient was given the phone number to the clinic and was told how to make contact with the clinic should any concerns or questions arise. Patient understands that if any questions or concerns arise prior to the next appointment, we should be contacted immediately. FOLLOW-UP: We will continue to follow inpatient Plan discussed with: Patient Date of Service: Mar 19, 2024 Billing Provider: SERGEY MULLINS DPM Common Visit Codes: [id number] INP/OBS CARE (HIGH) SERGEY MULLINS DPM Mar 19, 2024 09:22
[2024-03-19] MEDS: ceFAZolin 2 GM/D5W100ml 100 ML IV ONE (09:28)
[2024-03-19] MEDS ORDERED: PROPOFOL 10 MG/ML 20 ML IV ONE (09:34)
[2024-03-19] MEDS ORDERED: MIDAZOLAM HCL 2MG/2ML 2ml VIAL (1mg/ml) ONE (09:34)
[2024-03-19] MEDS ORDERED: fentaNYL CITRATE 100 MCG/2 ML VL ONE (09:34)
[2024-03-19] MEDS ORDERED: ONDANSETRON HCL 4 MG/2 ML VIAL ONE (09:35)
[2024-03-19] MEDS ORDERED: LIDOCAINE 2% (LOCAL ANESTH.) PF 5ml SDV ONE (09:35)
--- NOTE | 2024-03-19 09:57 | DVHOP2 ---
Operative Report - 2 Report Details Date: 03/19/24 Preop Diagnosis: 1. Right achilles abscess 2. Right ankle necrotizing fasciitis 3. Right ankle cellulitis Postop Diagnosis: Same as preop Surgeon: Sergey Mullins MD Anesthesiologist: See anesthesia Anesthesia: General Consent: The patient was informed of the risks and benefits of the procedure. These include but are not limited to complications of anesthesia, postoperative infection, incomplete relief of symptoms, recurrence of symptoms, damage to blood vessels, nerves and tendons, deep venous thrombosis, pulmonary embolism and possible need for repeat surgery in the future. Complications: None Estimated Blood Loss: See anesthesia Fluids: See anesthesia Findings: Approximately 15 mL of purulent drainage was noted, with necrosis of the fascial layer Indications for Surgery: Worsening right leg cellulitis Name of Procedure Performed 1. Right leg I&D ([id number]) Procedure Details Procedure Details: PRE-PROCEDURE INFORMATION: In the pre-op holding area, the extremity to be operated on was clearly marked and the patient verified correct laterality of the marking. The patient was transferred to the OR table and placed in a supine position. A timeout was performed in which identification of the correct patient, procedure, location, and materials was done. The right foot and leg were prepped and draped in normal sterile fashion. DESCRIPTION OF PROCEDURE: Attention was directed to the right where area of fluctuance was noted. An incision was made over this area and was deepened through blunt dissection. The incision was deepened to the level of abscess and bone. Care was taken to the dissection to avoid any neurovascular and tendinous structures. The incision was deepened to the bone, and the abscess appeared to be purulent fluid consistent with pus, proximally 15 mL. After the abscess was drained, the area was irrigated with 3 L normal saline using cysto tubing. Deep cultures were then obtained from the wound. The area was then inspected and any areas of tracking, especially along the tendons were also drained. The wound was packed with Betadine-soaked gauze and we will need to be closed at a later date. All surgical wounds were irrigated copiously with saline and dry sterile dressing was added. POSTOPERATIVE INFORMATION: The patient tolerated the above noted procedure and anesthesia well and was transferred to the PACU with vital signs stable, and vascular status intact with capillary refill intact to all digits. Patient will return to the floor and continue IV antibiotics. Cultures were taken the OR we will follow those. Patient will return to the OR on for another washout. Condition Good Disposition Still a Patient SERGEY MULLINS DPM Mar 19, 2024 09:57
[2024-03-19] MEDS: BUPIVACAINE 0.5% INJ 50ML VIAL IJ ONE (09:58)
[2024-03-19 10:05] LABS: Large Platelets FEW; Platelet Estimate Decrea
[2024-03-19] MEDS: KETOROLAC TROMETH 30 MG/ML 1ML VIAL IV ONE (10:15)
[2024-03-19] MEDS ORDERED: fentaNYL CITRATE 100 MCG/2 ML VL IV PRN (10:15)
[2024-03-19] MEDS: ONDANSETRON HCL 4 MG/2 ML VIAL IV ONE (10:15)
[2024-03-19] MEDS: HYDROmorphone HCL 2 MG/ML VL/or syr IV PRN (10:45)
--- NOTE | 2024-03-19 12:39 | DVHPN2 ---
Subjective Seen and examined at bedside. s/p I&D. Cont IV Abx till cultures come back. Reviewed: Care Plan, H&P, Labs, Medications, Previous Orders, Radiology Changes from previous H/P or p: No Changes Eyes: No Pain, No Vision change, No Conjunctivae inflammation, No Eyelid inflammation, No Other, No Redness ENT: No Ear pain, No Ear discharge, No Nose pain, No Nose discharge, No Nose congestion, No Mouth pain, No Mouth swelling, No Throat pain, No Throat swelling, No Other Cardiovascular: No Chest Pain, No Palpitations, No Orthopnea, No Paroxysmal Noc. Dyspnea, No Edema, No Lt Headedness, No Other Gastrointestinal: No Nausea, No Vomiting, No Abdominal Pain, No Diarrhea, No Constipation, No Melena, No Hematochezia, No Other Genitourinary: No Dysuria, No Frequency, No Incontinence, No Hematuria, No Retention, No Other Skin: No Rash, No Lesions, No Jaundice, No Bruising, No Other Objective Vitals Vital Signs Date Time Temp Pulse Resp B/P (MAP) Pulse Ox O2 Delivery O2 Flow Rate FiO2 03/19/24 11:00 Room Air 0 97 03/19/24 10:57 65 17 102/54 (70) 97 03/19/24 09:57 98.2 98.2 Intake/Output Intake and Output 03/19/24 07:00 Intake Total 2294 ml Output Total 1800 ml Balance 494 ml Intake Oral 960 ml IV Total 800 ml Blood Product 267 ml Other 267 ml Output Urine Total 1800 ml General Appearance: Alert, Oriented X3, Cooperative, No acute distress HEENT: Atraumatic Lungs: Clear to auscultation Cardiovascular: Regular rate, Normal S1, Normal S2 Abdomen: Normal bowel sounds, Soft Extremities: Other (RLE Swelling+) Psych/Mental Status: Mental status NL Medications Current Medications Medications Dose Ordered Sig/Fabricio Route Start Time Stop Time Status Last Admin Dose Admin Vancomycin HCl 0 ml @ 0 mls/hr UD IV 03/09/24 20:30 Acetaminophen/ Hydrocodone Bitart 1 tab Q4HP PRN PO 03/09/24 20:30 03/17/24 21:01 1 TAB Ondansetron HCl 4 mg Q4HP PRN IV 03/09/24 20:30 Docusate Sodium 100 mg BIDPRN PRN PO 03/09/24 20:30 Acetaminophen 650 mg Q6HP PRN PO 03/09/24 20:30 03/16/24 05:16 650 MG Heparin Sodium (Porcine) 5,000 units Q12HR SC 03/09/24 22:00 Hold Nitroglycerin 0.4 mg Q5MINP PRN SL 03/09/24 22:30 Morphine Sulfate 2 mg Q30M PRN IV 03/09/24 22:30 Midodrine 10 mg TID@0600,1200,1800 PO 03/10/24 06:00 03/19/24 05:42 10 MG Vancomycin HCl 750 mg/Dextrose 100 ml @ 100 mls/hr O IV 03/10/24 07:00 03/10/24 08:00 Cancel Furosemide 20 mg BIDD IV 03/13/24 06:00 03/19/24 05:44 20 MG Ceftriaxone Sodium 50 ml @ 100 mls/hr DAILY@09 IV 03/14/24 09:00 03/18/24 09:00 100 MLS/HR Vancomycin HCl 250 ml @ 200 mls/hr Q10H IV 03/18/24 14:00 03/19/24 01:10 200 MLS/HR Methylprednisolone Sodium Succinate 40 mg BID IV 03/18/24 22:00 03/18/24 21:31 40 MG Nicotine 1 patch DAILY TD 03/19/24 12:00 UNV Laboratory Results Laboratory Tests 03/19/24 06:34 Chemistry Test 03/19/24 06:34 Calcium Level 8.9 mg/dL (8.7-10.4) Urinalysis Test 03/10/24 22:00 Urine Color [place] (Yellow) H Urine Clarity Ex.turbid (Clear) Urine pH 6.0 (5.0-9.0) Urine Specific [place] 1.025 (1.001-1.035) Urine Protein 2+ (Negative) H Urine Ketones Trace (Negative) Urine Blood 2+ /uL (Negative) H Urine Nitrite Negative (Negative) Urine Bilirubin Negative (Negative) Urine Urobilinogen 4 mg/dL (Negative) H Urine Leukocyte Esterase Trace /uL (Negative) Urine RBC 36 /hpf (0 - 3) Urine WBC 29 /hpf (0 - 3) Urine Squamous Epithelial Cells Few /hpf (<5) Urine Bacteria Few /hpf (None Seen) H Urine Creatinine 196.38 mg/dL (30.0-125.0) H Urine Protein/Creatinine Ratio 1.29 Urine Sodium 16 mmol/L (40-220) L Urine Glucose Trace mg/dL (Normal) Urine Total Protein 253.3 mg/dL (1-14) H Microbiology Microbiology Date/Time Source Procedure Growth Status 03/09/24 16:32 Blood Blood Culture - Final NO GROWTH AFTER 5 DAYS OF INCUBATION. Complete Assessment/Plan Assessment/Plan R Ankle Abscess- s/p I&D. Cont Abx till cultures come back Pancytopenia Symptomatic anemia- Monitor H&H SIRS- Abx Myelodysplastic syndrome- Cont Outpatient followup Possible Acute Diastolic CHF- Lasix Thrombocytopenia COPD Schizophrenia Tobacco dependence, Counseling > 19 mins Goals of care >17 mins FULL CODE Plan discussed with: Patient My Orders Orders - VENKAT SMILEY MD Procedure Category Date Status Time Methylprednisolone PHA 03/18/24 In Process Sod Succ (Solu Medrol 22:00 Methylprednisolone PHA 03/20/24 Verified Sod Succ (Solu Medrol 10:00 Basic Metabolic Panel LAB 03/20/24 Verified 04:00 Complete Blood Count LAB 03/20/24 Verified 04:00 Date of Service: Mar 19, 2024 Billing Provider: VENKAT SMILEY MD Common Visit Codes: [id number] INP/OBS CARE(MOD) VENKAT SMILEY MD Mar 19, 2024 12:39
[2024-03-19] MEDS: NICOTINE 7MG/24HR TOPICAL PATCH TD SCH (15:49)
[2024-03-19] MEDS: VANCOMYCIN 1.25GM/250ML 250 ML IV SCH (22:26)
[2024-03-20] VITALS (8 sets, daily range): BP systolic 94–102; BP diastolic 49–59; PULSE 67–85; RESP 16–22; TEMP 97.7–99.6; O2SAT 96–100
[2024-03-20 04:59] LABS: Basophils # (auto) 0 10 ^3/uL (0-0.2); Basophils % (auto) 1.3 % (0.0-2.0); Eosinophils # (auto) 0.2 10 ^3/uL (0-0.8); Eosinophils % (auto) 6.3 % (0.0-7.0); Hematocrit 23.3 % (41.0-53.0); Hemoglobin 7.9 g/dL (13.5-17.5); Lymphocytes # (auto) 0.6 10 ^3/uL (0.4-5.4); Lymphocytes % (auto) 21.9 % (10.0-50.0); Mean Corpuscular Hemoglobin 30.5 pg (28.0-32.0); Mean Corpuscular Hgb Conc. 33.9 g/dL (32.0-36.0); Monocytes # (auto) 0 10 ^3/uL (0-1.3); Monocytes % (auto) 0.9 % (0.0-12.0); Neutrophils # (auto) 1.9 10 ^3/uL (1.6-8.6); Neutrophils % (auto) 69.6 % (37.0-80.0); Platelet Count (auto) 49 10^3/uL (140-450); Red Blood Cells 2.59 10^6/uL (4.5-5.90); Red Cell Distribution Width 15.2 % (11.8-14.3); White Blood Cell 2.7 10^3/uL (4.4-10.8)
[2024-03-20 05:04] LABS: Chloride 104 mmol/L (98-107); Potassium 4.1 mmol/L (3.5-5.1)
[2024-03-20 05:05] LABS: Sodium 137 mmol/L (136-145)
[2024-03-20 05:06] LABS: Anion Gap 6 (5-15); Calcium 8.7 mg/dL (8.7-10.4); Carbon Dioxide 27 mmol/L (20-31)
[2024-03-20 05:11] LABS: BUN/Creatinine Ratio 28.4 (10.0-20.0); Blood Urea Nitrogen 19 mg/dL (9-23); Glucose 92 mg/dL (74-106)
[2024-03-20] MEDS: methylPREDNISolone SOD SUCC 40 MG/ML VL IV SCH (09:06)
--- NOTE | 2024-03-20 09:33 | DVHPN2 ---
Subjective Seen and examined at bedside. s/p I&D. Cont IV Abx till cultures come back. SNF planning Reviewed: Care Plan, H&P, Labs, Medications, Previous Orders, Radiology Changes from previous H/P or p: No Changes Eyes: No Pain, No Vision change, No Conjunctivae inflammation, No Eyelid inflammation, No Other, No Redness ENT: No Ear pain, No Ear discharge, No Nose pain, No Nose discharge, No Nose congestion, No Mouth pain, No Mouth swelling, No Throat pain, No Throat swelling, No Other Cardiovascular: No Chest Pain, No Palpitations, No Orthopnea, No Paroxysmal Noc. Dyspnea, No Edema, No Lt Headedness, No Other Gastrointestinal: No Nausea, No Vomiting, No Abdominal Pain, No Diarrhea, No Constipation, No Melena, No Hematochezia, No Other Genitourinary: No Dysuria, No Frequency, No Incontinence, No Hematuria, No Retention, No Other Skin: No Rash, No Lesions, No Jaundice, No Bruising, No Other Objective Vitals Vital Signs Date Time Temp Pulse Resp B/P (MAP) Pulse Ox O2 Delivery O2 Flow Rate FiO2 03/20/24 05:55 108/54 03/20/24 05:00 99.6 82 18 100 99.6 03/19/24 20:00 Nasal Cannula* 2 28 Intake/Output Intake and Output 03/20/24 07:00 Intake Total 1434 ml Output Total 950 ml Balance 484 ml Intake Oral 1164 ml IV Total 270 ml Output Urine Total 950 ml # Bowel Movements 2 General Appearance: Alert, Oriented X3, Cooperative, No acute distress HEENT: Atraumatic Lungs: Clear to auscultation Cardiovascular: Regular rate, Normal S1, Normal S2 Abdomen: Normal bowel sounds, Soft Extremities: Other (RLE Swelling+) Psych/Mental Status: Mental status NL Medications Current Medications Medications Dose Ordered Sig/Fabricio Route Start Time Stop Time Status Last Admin Dose Admin Vancomycin HCl 0 ml @ 0 mls/hr UD IV 03/09/24 20:30 Acetaminophen/ Hydrocodone Bitart 1 tab Q4HP PRN PO 03/09/24 20:30 03/20/24 09:07 1 TAB Ondansetron HCl 4 mg Q4HP PRN IV 03/09/24 20:30 Docusate Sodium 100 mg BIDPRN PRN PO 03/09/24 20:30 Acetaminophen 650 mg Q6HP PRN PO 03/09/24 20:30 03/16/24 05:16 650 MG Heparin Sodium (Porcine) 5,000 units Q12HR SC 03/09/24 22:00 Hold Nitroglycerin 0.4 mg Q5MINP PRN SL 03/09/24 22:30 Morphine Sulfate 2 mg Q30M PRN IV 03/09/24 22:30 Midodrine 10 mg TID@0600,1200,1800 PO 03/10/24 06:00 03/20/24 05:55 10 MG Vancomycin HCl 750 mg/Dextrose 100 ml @ 100 mls/hr O IV 03/10/24 07:00 03/10/24 08:00 Cancel Furosemide 20 mg BIDD IV 03/13/24 06:00 03/20/24 05:55 20 MG Ceftriaxone Sodium 50 ml @ 100 mls/hr DAILY@09 IV 03/14/24 09:00 03/20/24 09:05 100 MLS/HR Nicotine 1 patch DAILY TD 03/19/24 12:00 03/20/24 09:07 1 PATCH Methylprednisolone Sodium Succinate 40 mg DAILY IV 03/20/24 10:00 03/20/24 09:06 40 MG Tramadol HCl 50 mg Q8HPRN PRN PO 03/19/24 13:15 Vancomycin HCl 250 ml @ 200 mls/hr Q10H IV 03/19/24 22:30 03/20/24 08:35 200 MLS/HR Laboratory Results Laboratory Tests 03/20/24 04:39 Chemistry Test 03/20/24 04:39 Calcium Level 8.7 mg/dL (8.7-10.4) Urinalysis Test 03/10/24 22:00 Urine Color [place] (Yellow) H Urine Clarity Ex.turbid (Clear) Urine pH 6.0 (5.0-9.0) Urine Specific [place] 1.025 (1.001-1.035) Urine Protein 2+ (Negative) H Urine Ketones Trace (Negative) Urine Blood 2+ /uL (Negative) H Urine Nitrite Negative (Negative) Urine Bilirubin Negative (Negative) Urine Urobilinogen 4 mg/dL (Negative) H Urine Leukocyte Esterase Trace /uL (Negative) Urine RBC 36 /hpf (0 - 3) Urine WBC 29 /hpf (0 - 3) Urine Squamous Epithelial Cells Few /hpf (<5) Urine Bacteria Few /hpf (None Seen) H Urine Creatinine 196.38 mg/dL (30.0-125.0) H Urine Protein/Creatinine Ratio 1.29 Urine Sodium 16 mmol/L (40-220) L Urine Glucose Trace mg/dL (Normal) Urine Total Protein 253.3 mg/dL (1-14) H Microbiology Microbiology Date/Time Source Procedure Growth Status 03/19/24 09:40 Leg Right Anaerobic Culture - Preliminary Resulted 03/09/24 16:32 Blood Blood Culture - Final NO GROWTH AFTER 5 DAYS OF INCUBATION. Complete Assessment/Plan Assessment/Plan R Ankle Abscess- s/p I&D. Cont Abx till cultures come back Pancytopenia Symptomatic anemia- Monitor H&H SIRS- Abx Myelodysplastic syndrome- Cont Outpatient followup Possible Acute Diastolic CHF- Lasix Thrombocytopenia COPD Schizophrenia Tobacco dependence, Counseling > 19 mins Goals of care >17 mins FULL CODE Plan discussed with: Patient My Orders Orders - VENKAT SMILEY MD Procedure Category Date Status Time Methylprednisolone PHA 03/20/24 In Process Sod Succ (Solu Medrol 10:00 Tramadol Hcl (Ultram) PHA 03/19/24 In Process 13:15 Cardiac DIET 03/19/24 Transmitted Diet-2gna,Lofat,Lochol Dinner Complete Blood Count LAB 03/21/24 Verified 04:00 Comprehensive LAB 03/21/24 Verified Metabolic Panel 04:00 Erythrocyte LAB 03/21/24 Verified Sedimentation Rate 04:00 C-Reactive Protein LAB 03/21/24 Verified 04:00 Date of Service: Mar 20, 2024 Billing Provider: VENKAT SMILEY MD Common Visit Codes: [id number] INP/OBS CARE(MOD) VENKAT SMILEY MD Mar 20, 2024 09:33
--- NOTE | 2024-03-20 15:18 | ECG ---
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
[2024-03-21] VITALS (13 sets, daily range): BP systolic 90–103; BP diastolic 49–65; PULSE 59–84; RESP 16–19; TEMP 98–99.5; O2SAT 95–99
[2024-03-21 07:36] LABS: Basophils # (auto) 0 10 ^3/uL (0-0.2); Basophils % (auto) 1.5 % (0.0-2.0); Eosinophils # (auto) 0.2 10 ^3/uL (0-0.8); Eosinophils % (auto) 10.2 % (0.0-7.0); Hematocrit 20.1 % (41.0-53.0); Lymphocytes # (auto) 0.6 10 ^3/uL (0.4-5.4); Lymphocytes % (auto) 24.6 % (10.0-50.0); Mean Corpuscular Hgb Conc. 33.2 g/dL (32.0-36.0); Mean Corpuscular Volume 90.4 fL (80.0-100.0); Monocytes # (auto) 0 10 ^3/uL (0-1.3); Monocytes % (auto) 2.1 % (0.0-12.0); Neutrophils # (auto) 1.4 10 ^3/uL (1.6-8.6); Neutrophils % (auto) 61.6 % (37.0-80.0); Nucleated Red Blood Cells % 0.2 %; Red Blood Cells 2.22 10^6/uL (4.5-5.90); White Blood Cell 2.3 10^3/uL (4.4-10.8)
[2024-03-21 07:45] LABS: Hemoglobin 6.7 g/dL (13.5-17.5); Platelet Count (auto) 40 10^3/uL (140-450)
[2024-03-21 07:51] LABS: Alkaline Phosphatase 60 U/L (46-116); Anion Gap 5 (5-15); Aspartate Aminotransferase 37 U/L (13-40); BUN/Creatinine Ratio 28.3 (10.0-20.0); Bilirubin, Total 0.6 mg/dL (0.2-1.0); Blood Urea Nitrogen 15 mg/dL (9-23); Carbon Dioxide 26 mmol/L (20-31); Chloride 104 mmol/L (98-107); Glucose 100 mg/dL (74-106)
[2024-03-21 07:57] LABS: Alanine Aminotransferase 91 U/L (7-40); Albumin 2.5 g/dL (3.2-4.8); Calcium 8.5 mg/dL (8.7-10.4); Sodium 135 mmol/L (136-145); Total Protein 5.3 g/dL (5.7-8.2)
[2024-03-21 08:29] LABS: CRP High Sensitivity 9.05 mg/dL (<1.0)
[2024-03-21 08:58] LABS: Erythrocyte Sedimentation Rate 95 mm/hr (0-20)
[2024-03-21] MEDS: BUPIVACAINE 0.5% P/F INJ 10 ML VIAL ONE (11:46)
[2024-03-21] MEDS: VANCOMYCIN HCL 1000 MG VL ONE (11:46)
--- NOTE | 2024-03-21 16:23 | DVHPN2 ---
Subjective Seen and examined at bedside. s/p I&D. Cont IV Abx till cultures come back. SNF planning. Will transfuse 1 PRBC Reviewed: Care Plan, H&P, Labs, Medications, Previous Orders, Radiology Changes from previous H/P or p: No Changes Eyes: No Pain, No Vision change, No Conjunctivae inflammation, No Eyelid inflammation, No Other, No Redness ENT: No Ear pain, No Ear discharge, No Nose pain, No Nose discharge, No Nose congestion, No Mouth pain, No Mouth swelling, No Throat pain, No Throat swelling, No Other Cardiovascular: No Chest Pain, No Palpitations, No Orthopnea, No Paroxysmal Noc. Dyspnea, No Edema, No Lt Headedness, No Other Gastrointestinal: No Nausea, No Vomiting, No Abdominal Pain, No Diarrhea, No Constipation, No Melena, No Hematochezia, No Other Genitourinary: No Dysuria, No Frequency, No Incontinence, No Hematuria, No Retention, No Other Skin: No Rash, No Lesions, No Jaundice, No Bruising, No Other Objective Vitals Vital Signs Date Time Temp Pulse Resp B/P (MAP) Pulse Ox O2 Delivery O2 Flow Rate FiO2 03/21/24 13:21 98.4 74 18 103/65 98.4 03/21/24 08:50 99 03/20/24 20:00 Room Air* 0 21 Intake/Output Intake and Output 03/21/24 07:00 Intake Total 1437 ml Output Total 2490 ml Balance -1053 ml Intake Oral 1137 ml IV Total 300 ml Output Urine Total 2490 ml General Appearance: Alert, Oriented X3, Cooperative, No acute distress HEENT: Atraumatic Lungs: Clear to auscultation Cardiovascular: Regular rate, Normal S1, Normal S2 Abdomen: Normal bowel sounds, Soft Extremities: Other (RLE Swelling+) Psych/Mental Status: Mental status NL Medications Current Medications Medications Dose Ordered Sig/Fabricio Route Start Time Stop Time Status Last Admin Dose Admin Vancomycin HCl 0 ml @ 0 mls/hr UD IV 03/09/24 20:30 Acetaminophen/ Hydrocodone Bitart 1 tab Q4HP PRN PO 03/09/24 20:30 03/20/24 09:07 1 TAB Ondansetron HCl 4 mg Q4HP PRN IV 03/09/24 20:30 Docusate Sodium 100 mg BIDPRN PRN PO 03/09/24 20:30 Acetaminophen 650 mg Q6HP PRN PO 03/09/24 20:30 03/16/24 05:16 650 MG Heparin Sodium (Porcine) 5,000 units Q12HR SC 03/09/24 22:00 Hold Nitroglycerin 0.4 mg Q5MINP PRN SL 03/09/24 22:30 Morphine Sulfate 2 mg Q30M PRN IV 03/09/24 22:30 Midodrine 10 mg TID@0600,1200,1800 PO 03/10/24 06:00 03/21/24 11:54 10 MG Vancomycin HCl 750 mg/Dextrose 100 ml @ 100 mls/hr O IV 03/10/24 07:00 03/10/24 08:00 Cancel Furosemide 20 mg BIDD IV 03/13/24 06:00 03/20/24 05:55 20 MG Ceftriaxone Sodium 50 ml @ 100 mls/hr DAILY@09 IV 03/14/24 09:00 03/21/24 11:53 100 MLS/HR Nicotine 1 patch DAILY TD 03/19/24 12:00 03/21/24 11:54 1 PATCH Methylprednisolone Sodium Succinate 40 mg DAILY IV 03/20/24 10:00 03/21/24 11:53 40 MG Tramadol HCl 50 mg Q8HPRN PRN PO 03/19/24 13:15 Vancomycin HCl 250 ml @ 200 mls/hr Q10H IV 03/19/24 22:30 03/21/24 05:40 200 MLS/HR Laboratory Results Laboratory Tests 03/21/24 07:02 Chemistry Test 03/21/24 07:02 Albumin 2.5 g/dL (3.2-4.8) L Calcium Level 8.5 mg/dL (8.7-10.4) L Total Protein 5.3 g/dL (5.7-8.2) L LFT Test 03/21/24 07:02 Alanine Aminotransferase (ALT) 91 U/L (7-40) H Alkaline Phosphatase 60 U/L (46-116) Aspartate Amino Transferase (AST) 37 U/L (13-40) Total Bilirubin 0.6 mg/dL (0.2-1.0) Urinalysis Test 03/10/24 22:00 Urine Color [place] (Yellow) H Urine Clarity Ex.turbid (Clear) Urine pH 6.0 (5.0-9.0) Urine Specific [place] 1.025 (1.001-1.035) Urine Protein 2+ (Negative) H Urine Ketones Trace (Negative) Urine Blood 2+ /uL (Negative) H Urine Nitrite Negative (Negative) Urine Bilirubin Negative (Negative) Urine Urobilinogen 4 mg/dL (Negative) H Urine Leukocyte Esterase Trace /uL (Negative) Urine RBC 36 /hpf (0 - 3) Urine WBC 29 /hpf (0 - 3) Urine Squamous Epithelial Cells Few /hpf (<5) Urine Bacteria Few /hpf (None Seen) H Urine Creatinine 196.38 mg/dL (30.0-125.0) H Urine Protein/Creatinine Ratio 1.29 Urine Sodium 16 mmol/L (40-220) L Urine Glucose Trace mg/dL (Normal) Urine Total Protein 253.3 mg/dL (1-14) H Microbiology Microbiology Date/Time Source Procedure Growth Status 03/19/24 09:40 Leg Right Anaerobic Culture - Preliminary Resulted 03/09/24 16:32 Blood Blood Culture - Final NO GROWTH AFTER 5 DAYS OF INCUBATION. Complete Assessment/Plan Assessment/Plan R Ankle Abscess- s/p I&D. Cont Abx till cultures come back Pancytopenia Symptomatic anemia- Monitor H&H SIRS- Abx Myelodysplastic syndrome- Cont Outpatient followup Possible Acute Diastolic CHF- Lasix Thrombocytopenia COPD Schizophrenia Tobacco dependence, Counseling > 19 mins Goals of care >17 mins FULL CODE Plan discussed with: Patient My Orders Orders - VENKAT SMILEY MD Procedure Category Date Status Time Basic Metabolic Panel LAB 03/22/24 Verified 04:00 Complete Blood Count LAB 03/22/24 Verified 04:00 Famotidine Tablet PHA 03/22/24 Verified (Pepcid Tablet) 10:00 Date of Service: Mar 21, 2024 Billing Provider: VENKAT SMILEY MD Common Visit Codes: [id number] INP/OBS CARE(MOD) VENKAT SMILEY MD Mar 21, 2024 16:23
[2024-03-22] VITALS (7 sets, daily range): BP systolic 80–99; BP diastolic 50–64; PULSE 62–81; RESP 15–18; TEMP 98.1–99.2; O2SAT 93–98
[2024-03-22 07:33] LABS: Chloride 106 mmol/L (98-107); Potassium 4.1 mmol/L (3.5-5.1); Sodium 137 mmol/L (136-145)
[2024-03-22 07:34] LABS: Anion Gap 4 (5-15); Calcium 8.8 mg/dL (8.7-10.4); Carbon Dioxide 27 mmol/L (20-31)
[2024-03-22 07:39] LABS: BUN/Creatinine Ratio 23.1 (10.0-20.0); Blood Urea Nitrogen 15 mg/dL (9-23); Glucose 101 mg/dL (74-106)
[2024-03-22 07:43] LABS: Basophils # (auto) 0 10 ^3/uL (0-0.2); Eosinophils # (auto) 0.2 10 ^3/uL (0-0.8); Hematocrit 25.5 % (41.0-53.0); Lymphocytes # (auto) 0.7 10 ^3/uL (0.4-5.4); Monocytes # (auto) 0.1 10 ^3/uL (0-1.3); White Blood Cell 2.3 10^3/uL (4.4-10.8)
[2024-03-22 07:45] LABS: Basophils % (auto) 0.9 % (0.0-2.0); Eosinophils % (auto) 10.3 % (0.0-7.0); Hemoglobin 8.8 g/dL (13.5-17.5); Lymphocytes % (auto) 32.8 % (10.0-50.0); Mean Corpuscular Hemoglobin 30.7 pg (28.0-32.0); Mean Corpuscular Hgb Conc. 34.4 g/dL (32.0-36.0); Mean Corpuscular Volume 89.4 fL (80.0-100.0); Monocytes % (auto) 2.7 % (0.0-12.0); Neutrophils # (auto) 1.2 10 ^3/uL (1.6-8.6); Neutrophils % (auto) 53.3 % (37.0-80.0); Nucleated Red Blood Cells % 0.3 %; Platelet Count (auto) 41 10^3/uL (140-450); Red Blood Cells 2.85 10^6/uL (4.5-5.90); Red Cell Distribution Width 14.5 % (11.8-14.3)
[2024-03-22] MEDS: FAMOTIDINE 20 MG TAB PO SCH (09:45)
[2024-03-22] MEDS ORDERED: BUPIVACAINE HCL 50 ML ONE (11:03)
[2024-03-22] MEDS ORDERED: PROPOFOL 10 MG/ML 20 ML IV ONE (11:35)
[2024-03-22] MEDS ORDERED: fentaNYL CITRATE 100 MCG/2 ML VL ONE ×2 (11:35→12:45)
--- NOTE | 2024-03-22 12:15 | DVHPN2 ---
Subjective The patient is a 68-year-old male with past medical history of cancer, anemia, COPD, and schizophrenia who presented to [facility] ED with complaint of shortness of breaths. Patient reports symptoms progressively get worse with right leg swelling, painful right leg, fever, getting worse that prompted this visit. Patient was seen and evaluated in the ED, laboratory data shows WBC 7.0, hemoglobin 9.8, hematocrit 28.9, platelets 03219, sodium 138, potassium 4.1, BUN 24, creatinine 1.32, glucose 124, total bilirubin 1.5, troponin 12, lactic acid 5.3 trending down to 3.9, blood pressure 99/52, heart rate 108, temperature 100.0 F, O2 saturation 95% on oxygen. Patient was started on IV antibiotic regimen vancomycin, please see medication orders section in the computer. On my assessment, patient denied chest pain, no headache, no dizziness, no diaphoresis, currently on oxygen, no nausea, no vomiting, no chills. Patient was admitted for further evaluation and medical management. Reviewed: Care Plan, H&P, Labs, Medications, Previous Orders, Radiology Changes from previous H/P or p: No Changes Eyes: No Pain, No Vision change, No Conjunctivae inflammation, No Eyelid inflammation, No Other, No Redness ENT: No Ear pain, No Ear discharge, No Nose pain, No Nose discharge, No Nose congestion, No Mouth pain, No Mouth swelling, No Throat pain, No Throat swelling, No Other Cardiovascular: No Chest Pain, No Palpitations, No Orthopnea, No Paroxysmal Noc. Dyspnea, No Edema, No Lt Headedness, No Other Gastrointestinal: No Nausea, No Vomiting, No Abdominal Pain, No Diarrhea, No Constipation, No Melena, No Hematochezia, No Other Genitourinary: No Dysuria, No Frequency, No Incontinence, No Hematuria, No Retention, No Other Skin: No Rash, No Lesions, No Jaundice, No Bruising, No Other Objective Vitals Vital Signs Date Time Temp Pulse Resp B/P (MAP) Pulse Ox O2 Delivery O2 Flow Rate FiO2 03/22/24 09:00 98.2 62 15 99/59 (72) 94 98.2 03/21/24 20:00 Room Air* 0 21 Intake/Output Intake and Output 03/22/24 07:00 Intake Total 2677 ml Output Total 3350 ml Balance -673 ml Intake Oral 977 ml IV Total 300 ml Blood Product 600 ml Other 800 ml Output Urine Total 3350 ml # Bowel Movements 1 Exam DERMATOLOGIC EXAM: - Skin is dry and cool to the touch dry bilaterally. - Nails 1-5 of the bilateral foot are thickened, discolored, dystrophic, and tender to palpate with subungual debris - Hair loss noted to bilateral feet Wound #1: Location: Left Achilles Measurements: Length 1 cm x width 1 cm x depth 0.7 cm. Wound margins: Hyperkeratotic. Wound base: Full thickness. General Appearance: Healthy and bleeding. Probes to Bone: No Purulent drainage: Yes Serous drainage: Yes Erythema: Periwound VASCULAR EXAM: - DP and PT pulses are palpable bilaterally. - RESPIRATORY MANAGER is brisk to all digits. - Feet are cool to touch compared to lower legs bilaterally. NEUROLOGIC EXAM: - Normal light touch sensation to the superficial peroneal, deep peroneal, sural, saphenous, and tibial nerve branches. - Protective sensation is diminished as tested with a 5.07 10g [place]Renae bilaterally. MUSCULOSKELETAL EXAM: - No gross deformities - Muscle strength is 5/5 and active motion is pain-free and symmetrical bilaterally - No pain or crepitation with passive range of motion bilaterally to all major pedal joints General Appearance: Alert, Oriented X3, Cooperative, No acute distress HEENT: Atraumatic Lungs: Clear to auscultation Cardiovascular: Regular rate, Normal S1, Normal S2 Abdomen: Normal bowel sounds, Soft Extremities: Other (RLE Swelling+) Psych/Mental Status: Mental status NL Medications Current Medications Medications Dose Ordered Sig/Fabricio Route Start Time Stop Time Status Last Admin Dose Admin Vancomycin HCl 0 ml @ 0 mls/hr UD IV 03/09/24 20:30 Acetaminophen/ Hydrocodone Bitart 1 tab Q4HP PRN PO 03/09/24 20:30 03/20/24 09:07 1 TAB Ondansetron HCl 4 mg Q4HP PRN IV 03/09/24 20:30 Docusate Sodium 100 mg BIDPRN PRN PO 03/09/24 20:30 Acetaminophen 650 mg Q6HP PRN PO 03/09/24 20:30 03/16/24 05:16 650 MG Heparin Sodium (Porcine) 5,000 units Q12HR SC 03/09/24 22:00 Hold Nitroglycerin 0.4 mg Q5MINP PRN SL 03/09/24 22:30 Morphine Sulfate 2 mg Q30M PRN IV 03/09/24 22:30 Midodrine 10 mg TID@0600,1200,1800 PO 03/10/24 06:00 03/22/24 05:47 10 MG Vancomycin HCl 750 mg/Dextrose 100 ml @ 100 mls/hr O IV 03/10/24 07:00 03/10/24 08:00 Cancel Furosemide 20 mg BIDD IV 03/13/24 06:00 03/20/24 05:55 20 MG Ceftriaxone Sodium 50 ml @ 100 mls/hr DAILY@09 IV 03/14/24 09:00 03/22/24 09:45 100 MLS/HR Nicotine 1 patch DAILY TD 03/19/24 12:00 03/22/24 09:45 1 PATCH Methylprednisolone Sodium Succinate 40 mg DAILY IV 03/20/24 10:00 03/22/24 09:45 40 MG Tramadol HCl 50 mg Q8HPRN PRN PO 03/19/24 13:15 Vancomycin HCl 250 ml @ 200 mls/hr Q10H IV 03/19/24 22:30 03/22/24 00:57 200 MLS/HR Famotidine 40 mg DAILY PO 03/22/24 10:00 Laboratory Results Laboratory Tests 03/22/24 06:46 Chemistry Test 03/22/24 06:46 Calcium Level 8.8 mg/dL (8.7-10.4) Urinalysis Test 03/10/24 22:00 Urine Color [place] (Yellow) H Urine Clarity Ex.turbid (Clear) Urine pH 6.0 (5.0-9.0) Urine Specific [place] 1.025 (1.001-1.035) Urine Protein 2+ (Negative) H Urine Ketones Trace (Negative) Urine Blood 2+ /uL (Negative) H Urine Nitrite Negative (Negative) Urine Bilirubin Negative (Negative) Urine Urobilinogen 4 mg/dL (Negative) H Urine Leukocyte Esterase Trace /uL (Negative) Urine RBC 36 /hpf (0 - 3) Urine WBC 29 /hpf (0 - 3) Urine Squamous Epithelial Cells Few /hpf (<5) Urine Bacteria Few /hpf (None Seen) H Urine Creatinine 196.38 mg/dL (30.0-125.0) H Urine Protein/Creatinine Ratio 1.29 Urine Sodium 16 mmol/L (40-220) L Urine Glucose Trace mg/dL (Normal) Urine Total Protein 253.3 mg/dL (1-14) H Microbiology Microbiology Date/Time Source Procedure Growth Status 03/19/24 09:40 Leg Right Anaerobic Culture - Preliminary Resulted 03/09/24 16:32 Blood Blood Culture - Final NO GROWTH AFTER 5 DAYS OF INCUBATION. Complete Assessment/Plan Assessment/Plan ASSESSMENT: Patient is a 68-year-old seen on the floor for a worsening left Achilles wound, s/p from incision and drainage PLAN: - The patients chart was reviewed, clinical findings were discussed with the patient, the etiologies of the conditions were discussed in detail, and a treatment plan was agreed to at this time, with both oral and written instructions provided. - we will take the patient back to the OR today - patient has been NPO since midnight - we will plan to do another incision and drainage - we will try to possibly close today depending on how it looks - patient will be able to weightbear as tolerated after surgery if we are able to close it All questions were answered and concerns addressed to the patient's satisfaction. The patient was given the phone number to the clinic and was told how to make contact with the clinic should any concerns or questions arise. Patient understands that if any questions or concerns arise prior to the next appointment, we should be contacted immediately. 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
[2024-03-22] MEDS: ONDANSETRON HCL 4 MG/2 ML VIAL IV ONE (13:15)
[2024-03-22] MEDS ORDERED: ACETAMINOPHEN IV 1000 MG/100ML (10MG/ML) IV PRN (13:15)
[2024-03-22] MEDS ORDERED: HYDROmorphone HCL 2 MG/ML VL/or syr IV PRN (13:15)
--- NOTE | 2024-03-22 13:32 | DVHOP2 ---
Operative Report - 2 Report Details Date: 03/22/24 Preop Diagnosis: 1. Right achilles abscess 2. Right ankle necrotizing fasciitis 3. Right ankle cellulitis Postop Diagnosis: Same as preop Surgeon: Sergey Mullins MD Anesthesiologist: See anesthesia Anesthesia: General Consent: The patient was informed of the risks and benefits of the procedure. These include but are not limited to complications of anesthesia, postoperative infection, incomplete relief of symptoms, recurrence of symptoms, damage to blood vessels, nerves and tendons, deep venous thrombosis, pulmonary embolism and possible need for repeat surgery in the future. Complications: None Estimated Blood Loss: See anesthesia Fluids: See anesthesia Findings: Minimal amounts of purulent drainage Indications for Surgery: Worsening right leg wound Name of Procedure Performed 1. Right leg I&D (77761) 2. Right leg delayed closure (67855) Procedure Details Procedure Details: PRE-PROCEDURE INFORMATION: In the pre-op holding area, the extremity to be operated on was clearly marked and the patient verified correct laterality of the marking. The patient was transferred to the OR table and placed in a supine position. A timeout was performed in which identification of the correct patient, procedure, location, and materials was done. The right foot and leg were prepped and draped in normal sterile fashion. DESCRIPTION OF PROCEDURE: Attention was directed to the right where previous incision was made. An incision was made over this area and was deepened through blunt dissection. The incision was deepened to the level of abscess and bone. Care was taken to the dissection to avoid any neurovascular and tendinous structures. The incision was deepened to the bone, and the abscess appeared to be purulent fluid consistent with pus, proximally 15 mL. After the abscess was drained, the area was irrigated with 3 L normal saline using cysto tubing. The area was then inspected and any areas of tracking, especially along the tendons were also drained. Wound was then closed with a 2-0 nylon. All surgical wounds were irrigated copiously with saline and dry sterile dressing was added. POSTOPERATIVE INFORMATION: The patient tolerated the above noted procedure and anesthesia well and was transferred to the PACU with vital signs stable, and vascular status intact with capillary refill intact to all digits. Patient can be discharged home when deemed medically appropriate. Patient will need 2 weeks of oral antibiotics. Patient can weightbear as tolerated Condition Good Disposition Still a Patient SERGEY MULLINS DPM Mar 22, 2024 13:32
--- NOTE | 2024-03-22 18:52 | DVHPN2 ---
Subjective Decreasing swelling of right lower extremity Reviewed: Care Plan, H&P, Labs, Medications, Previous Orders, Radiology, Other Changes from previous H/P or p: Changes Objective Vitals Vital Signs Date Time Temp Pulse Resp B/P (MAP) Pulse Ox O2 Delivery O2 Flow Rate FiO2 03/22/24 17:29 95/66 03/22/24 16:36 98.9 81 16 98 98.9 03/22/24 13:02 Room Air 03/22/24 08:00 0 21 Intake/Output Intake and Output 03/22/24 07:00 Intake Total 2677 ml Output Total 3350 ml Balance -673 ml Intake Oral 977 ml IV Total 300 ml Blood Product 600 ml Other 800 ml Output Urine Total 3350 ml # Bowel Movements 1 General Appearance: Alert, Oriented X3, Cooperative, No acute distress HEENT: Atraumatic, Other (Pale) Lungs: Clear to auscultation, Normal air movement Cardiovascular: Regular rate, Normal S1, Normal S2 Abdomen: Normal bowel sounds, Soft, No tenderness Extremities: Other (Right lower extremity swelling; clean dressing) Neuro: Normal speech, Cranial nerves 3-12 NL Psych/Mental Status: Mental status NL, Mood NL Medications Current Medications Medications Dose Ordered Sig/Fabricio Route Start Time Stop Time Status Last Admin Dose Admin Vancomycin HCl 0 ml @ 0 mls/hr UD IV 03/09/24 20:30 Acetaminophen/ Hydrocodone Bitart 1 tab Q4HP PRN PO 03/09/24 20:30 03/22/24 15:21 1 TAB Ondansetron HCl 4 mg Q4HP PRN IV 03/09/24 20:30 Docusate Sodium 100 mg BIDPRN PRN PO 03/09/24 20:30 Acetaminophen 650 mg Q6HP PRN PO 03/09/24 20:30 03/16/24 05:16 650 MG Heparin Sodium (Porcine) 5,000 units Q12HR SC 03/09/24 22:00 Hold Nitroglycerin 0.4 mg Q5MINP PRN SL 03/09/24 22:30 Morphine Sulfate 2 mg Q30M PRN IV 03/09/24 22:30 Midodrine 10 mg TID@0600,1200,1800 PO 03/10/24 06:00 03/22/24 17:27 10 MG Vancomycin HCl 750 mg/Dextrose 100 ml @ 100 mls/hr O IV 03/10/24 07:00 03/10/24 08:00 Cancel Furosemide 20 mg BIDD IV 03/13/24 06:00 03/20/24 05:55 20 MG Ceftriaxone Sodium 50 ml @ 100 mls/hr DAILY@09 IV 03/14/24 09:00 03/22/24 09:45 100 MLS/HR Nicotine 1 patch DAILY TD 03/19/24 12:00 03/22/24 09:45 1 PATCH Methylprednisolone Sodium Succinate 40 mg DAILY IV 03/20/24 10:00 03/22/24 09:45 40 MG Tramadol HCl 50 mg Q8HPRN PRN PO 03/19/24 13:15 Vancomycin HCl 250 ml @ 200 mls/hr Q10H IV 03/19/24 22:30 03/22/24 00:57 200 MLS/HR Famotidine 40 mg DAILY PO 03/22/24 10:00 Laboratory Results Laboratory Tests 03/22/24 06:46 Chemistry Test 03/22/24 06:46 Calcium Level 8.8 mg/dL (8.7-10.4) Urinalysis Test 03/10/24 22:00 Urine Color [place] (Yellow) H Urine Clarity Ex.turbid (Clear) Urine pH 6.0 (5.0-9.0) Urine Specific [place] 1.025 (1.001-1.035) Urine Protein 2+ (Negative) H Urine Ketones Trace (Negative) Urine Blood 2+ /uL (Negative) H Urine Nitrite Negative (Negative) Urine Bilirubin Negative (Negative) Urine Urobilinogen 4 mg/dL (Negative) H Urine Leukocyte Esterase Trace /uL (Negative) Urine RBC 36 /hpf (0 - 3) Urine WBC 29 /hpf (0 - 3) Urine Squamous Epithelial Cells Few /hpf (<5) Urine Bacteria Few /hpf (None Seen) H Urine Creatinine 196.38 mg/dL (30.0-125.0) H Urine Protein/Creatinine Ratio 1.29 Urine Sodium 16 mmol/L (40-220) L Urine Glucose Trace mg/dL (Normal) Urine Total Protein 253.3 mg/dL (1-14) H Microbiology Microbiology Date/Time Source Procedure Growth Status 03/19/24 09:40 Leg Right Anaerobic Culture - Preliminary Resulted 03/09/24 16:32 Blood Blood Culture - Final NO GROWTH AFTER 5 DAYS OF INCUBATION. Complete Labs and/or images reviewed: Labs reviewed by me, Image(s) reviewed by me Assessment/Plan Assessment/Plan Covering Dr. Martines: #Right Achillis abscess, right ankle necrotizing fasciitis, and right ankle cellulitis; status post I&D twice on the February, then on the March,; status post delayed closure on the 22 March 2024; aerobic wound culture grew E coli; one of the anaerobic cultures are in progress and one is with no growth; continue current IV antibiotics for now; podiatry is following; reviewed the available imaging studies including MRIs; reviewed other cultures; continue monitoring #Sepsis due to above; continue current IV antibiotics; continue monitoring #Severe malnutrition in the setting of myelodysplastic syndrome; continue nutritional follow up; continue encouraging increasing oral intake; continue monitoring #Pancytopenia due to myelodysplastic syndrome; symptomatic anemia status post transfusion of 5 units of packed RBCs; status post transfusion of 2 units of platelet; no symptoms/signs of active bleeding; continue monitoring #Possible acute diastolic congestive heart failure; on IV Lasix; continue monitoring #COPD; not in exacerbation; continue monitoring #Schizophrenia; controlled with no active issues; holding medical management for now; continue monitoring #Polysubstance use disorder including tobacco and marijuana; counseled on cessation for 22 minutes including 16 minutes for tobacco use cessation Goals of care discussed for 20 minutes with the patient; full code. Late Entry. This medical document was created using an electronic medical record system with computerized dictation system. Although this document has been carefully reviewed, there might still be some phonetic and typographical errors. These areas are purely typographical due to imperfections of the software programs, and do not reflect any compromise in the patient's medical care. Plan discussed with: Patient, Other (Nurse) Date of Service: Mar 22, 2024 Billing Provider: ALLAN SCALES MD Common Visit Codes: [id number] INP/OBS CARE(HIGH) Secondary Visit Codes: [id number] CHNG SMOKING >10MIN (Counseled on tobacco and marijuana use cessation for 22 minutes including 16 minutes for tobacco use cessation), [id number] CARE PLAN 30 MINUTES (20 minutes) ALLAN SCALES MD Mar 22, 2024 18:52
[2024-03-23] VITALS (7 sets, daily range): BP systolic 83–99; BP diastolic 46–65; PULSE 64–69; RESP 16–22; TEMP 97.8–98.7; O2SAT 93–97
[2024-03-23 07:02] LABS: Basophils # (auto) 0.1 10 ^3/uL (0-0.2); Hemoglobin 8.5 g/dL (13.5-17.5); Monocytes # (auto) 0.1 10 ^3/uL (0-1.3)
[2024-03-23 07:09] LABS: Basophils % (auto) 2.4 % (0.0-2.0); Eosinophils # (auto) 0.3 10 ^3/uL (0-0.8); Eosinophils % (auto) 7.7 % (0.0-7.0); Hematocrit 24.5 % (41.0-53.0); Lymphocytes % (auto) 28.9 % (10.0-50.0); Mean Corpuscular Hemoglobin 31.3 pg (28.0-32.0); Mean Corpuscular Hgb Conc. 34.8 g/dL (32.0-36.0); Monocytes % (auto) 2.5 % (0.0-12.0); Neutrophils # (auto) 1.9 10 ^3/uL (1.6-8.6); Neutrophils % (auto) 58.5 % (37.0-80.0); Nucleated Red Blood Cells % 0.3 %; Platelet Count (auto) 44 10^3/uL (140-450); Red Blood Cells 2.73 10^6/uL (4.5-5.90); Red Cell Distribution Width 14.5 % (11.8-14.3); White Blood Cell 3.3 10^3/uL (4.4-10.8)
[2024-03-23 07:19] LABS: Alkaline Phosphatase 67 U/L (46-116); Anion Gap 5 (5-15); BUN/Creatinine Ratio 20.3 (10.0-20.0); Blood Urea Nitrogen 12 mg/dL (9-23); Carbon Dioxide 26 mmol/L (20-31); Chloride 105 mmol/L (98-107); Glucose 103 mg/dL (74-106); Sodium 136 mmol/L (136-145)
[2024-03-23 07:21] LABS: Aspartate Aminotransferase 36 U/L (13-40); Bilirubin, Total 0.6 mg/dL (0.2-1.0)
[2024-03-23 07:54] LABS: Alanine Aminotransferase 102 U/L (7-40); Albumin 2.6 g/dL (3.2-4.8); Calcium 8.5 mg/dL (8.7-10.4); Total Protein 5.5 g/dL (5.7-8.2)
[2024-03-23 08:47] LABS: Platelet Estimate Decreased
--- NOTE | 2024-03-23 15:39 | DVHPN2 ---
Subjective Decreasing swelling of right lower extremity Reviewed: Care Plan, H&P, Labs, Medications, Previous Orders, Radiology, Other (Consultations) Changes from previous H/P or p: No Changes Objective Vitals Vital Signs Date Time Temp Pulse Resp B/P (MAP) Pulse Ox O2 Delivery O2 Flow Rate FiO2 03/23/24 13:27 98.1 69 22 90/50 (63) 96 98.1 03/23/24 08:00 Room Air* 0 21 Intake/Output Intake and Output 03/23/24 07:00 Intake Total 1150 ml Output Total 2900 ml Balance -1750 ml Intake Oral 550 ml IV Total 600 ml Output Urine Total 2900 ml # Bowel Movements 1 General Appearance: Alert, Oriented X3, Cooperative, No acute distress HEENT: Atraumatic, Other (Pale) Lungs: Clear to auscultation, Normal air movement Cardiovascular: Regular rate, Normal S1, Normal S2 Abdomen: Normal bowel sounds, Soft, No tenderness Extremities: Other (Right lower extremity swelling; clean dressing) Neuro: Normal speech, Cranial nerves 3-12 NL Psych/Mental Status: Mental status NL, Mood NL Medications Current Medications Medications Dose Ordered Sig/Fabricio Route Start Time Stop Time Status Last Admin Dose Admin Vancomycin HCl 0 ml @ 0 mls/hr UD IV 03/09/24 20:30 Acetaminophen/ Hydrocodone Bitart 1 tab Q4HP PRN PO 03/09/24 20:30 03/22/24 20:44 1 TAB Ondansetron HCl 4 mg Q4HP PRN IV 03/09/24 20:30 Docusate Sodium 100 mg BIDPRN PRN PO 03/09/24 20:30 Acetaminophen 650 mg Q6HP PRN PO 03/09/24 20:30 03/16/24 05:16 650 MG Heparin Sodium (Porcine) 5,000 units Q12HR SC 03/09/24 22:00 Hold Nitroglycerin 0.4 mg Q5MINP PRN SL 03/09/24 22:30 Morphine Sulfate 2 mg Q30M PRN IV 03/09/24 22:30 Midodrine 10 mg TID@0600,1200,1800 PO 03/10/24 06:00 03/23/24 11:47 10 MG Vancomycin HCl 750 mg/Dextrose 100 ml @ 100 mls/hr O IV 03/10/24 07:00 03/10/24 08:00 Cancel Furosemide 20 mg BIDD IV 03/13/24 06:00 03/20/24 05:55 20 MG Ceftriaxone Sodium 50 ml @ 100 mls/hr DAILY@09 IV 03/14/24 09:00 03/23/24 09:31 100 MLS/HR Nicotine 1 patch DAILY TD 03/19/24 12:00 03/23/24 09:32 1 PATCH Methylprednisolone Sodium Succinate 40 mg DAILY IV 03/20/24 10:00 03/23/24 09:31 40 MG Tramadol HCl 50 mg Q8HPRN PRN PO 03/19/24 13:15 Famotidine 40 mg DAILY PO 03/22/24 10:00 03/23/24 09:31 40 MG Vancomycin HCl 250 ml @ 200 mls/hr Q12H IV 03/23/24 17:00 Laboratory Results Laboratory Tests 03/23/24 06:07 Chemistry Test 03/23/24 06:07 Albumin 2.6 g/dL (3.2-4.8) L Calcium Level 8.5 mg/dL (8.7-10.4) L Total Protein 5.5 g/dL (5.7-8.2) L LFT Test 03/23/24 06:07 Alanine Aminotransferase (ALT) 102 U/L (7-40) H Alkaline Phosphatase 67 U/L (46-116) Aspartate Amino Transferase (AST) 36 U/L (13-40) Total Bilirubin 0.6 mg/dL (0.2-1.0) Urinalysis Test 03/10/24 22:00 Urine Color [place] (Yellow) H Urine Clarity Ex.turbid (Clear) Urine pH 6.0 (5.0-9.0) Urine Specific [place] 1.025 (1.001-1.035) Urine Protein 2+ (Negative) H Urine Ketones Trace (Negative) Urine Blood 2+ /uL (Negative) H Urine Nitrite Negative (Negative) Urine Bilirubin Negative (Negative) Urine Urobilinogen 4 mg/dL (Negative) H Urine Leukocyte Esterase Trace /uL (Negative) Urine RBC 36 /hpf (0 - 3) Urine WBC 29 /hpf (0 - 3) Urine Squamous Epithelial Cells Few /hpf (<5) Urine Bacteria Few /hpf (None Seen) H Urine Creatinine 196.38 mg/dL (30.0-125.0) H Urine Protein/Creatinine Ratio 1.29 Urine Sodium 16 mmol/L (40-220) L Urine Glucose Trace mg/dL (Normal) Urine Total Protein 253.3 mg/dL (1-14) H Microbiology Microbiology Date/Time Source Procedure Growth Status 03/19/24 09:40 Leg Right Anaerobic Culture - Preliminary Resulted 03/09/24 16:32 Blood Blood Culture - Final NO GROWTH AFTER 5 DAYS OF INCUBATION. Complete Labs and/or images reviewed: Labs reviewed by me, Image(s) reviewed by me Assessment/Plan Assessment/Plan Covering Dr. Martines: #Right Achillis abscess, right ankle necrotizing fasciitis, and right ankle cellulitis; status post I&D twice on the February, then on the March,; status post delayed closure on the 22 March 2024; aerobic wound culture grew E coli; one of the anaerobic cultures are in progress and one is with no growth; continue current IV antibiotics for now; podiatry is following; reviewed the available imaging studies including MRIs; reviewed other cultures; continue monitoring #Sepsis due to above; continue current IV antibiotics; continue monitoring #Severe malnutrition in the setting of myelodysplastic syndrome; continue nutritional follow up; continue encouraging increasing oral intake; continue monitoring #Pancytopenia due to myelodysplastic syndrome; symptomatic anemia status post transfusion of 5 units of packed RBCs; status post transfusion of 2 units of platelet; no symptoms/signs of active bleeding; continue monitoring #Possible acute diastolic congestive heart failure; on IV Lasix; continue monitoring #COPD; not in exacerbation; continue monitoring #Schizophrenia; controlled with no active issues; holding medical management for now; continue monitoring #Polysubstance use disorder including tobacco and marijuana; counseled on cessation for 22 minutes including 16 minutes for tobacco use cessation Late Entry. This medical document was created using an electronic medical record system with computerized dictation system. Although this document has been carefully reviewed, there might still be some phonetic and typographical errors. These areas are purely typographical due to imperfections of the software programs, and do not reflect any compromise in the patient's medical care. Plan discussed with: Patient, Other (Nurse) My Orders Orders - ALLAN SCALES MD Procedure Category Date Status Time Complete Blood Count LAB 03/24/24 Verified 04:00 Complete Blood Count LAB 03/25/24 Verified 05:00 Complete Blood Count LAB 03/26/24 Verified 05:00 Complete Blood Count LAB 03/27/24 Verified 05:00 Complete Blood Count LAB 03/28/24 Verified 05:00 Basic Metabolic Panel LAB 03/24/24 Verified 04:00 Date of Service: Mar 23, 2024 Billing Provider: ALLAN SCALES MD Common Visit Codes: [id number] INP/OBS CARE(HIGH) ALLAN SCALES MD Mar 23, 2024 15:39
[2024-03-23] MEDS: VANCOMYCIN 1.25GM/250ML 250 ML IV SCH (17:09)
[2024-03-24] VITALS (7 sets, daily range): BP systolic 89–127; BP diastolic 52–58; PULSE 58–86; RESP 16–20; TEMP 97.8–98.7; O2SAT 92–99
[2024-03-24 07:05] LABS: Basophils # (auto) 0.1 10 ^3/uL (0-0.2); Basophils % (auto) 1.6 % (0.0-2.0); Eosinophils # (auto) 0.2 10 ^3/uL (0-0.8); Eosinophils % (auto) 6.2 % (0.0-7.0); Hematocrit 23.8 % (41.0-53.0); Hemoglobin 8.1 g/dL (13.5-17.5); Lymphocytes % (auto) 27.8 % (10.0-50.0); Mean Corpuscular Hemoglobin 30.4 pg (28.0-32.0); Mean Corpuscular Volume 89.6 fL (80.0-100.0); Monocytes # (auto) 0.1 10 ^3/uL (0-1.3); Monocytes % (auto) 3.2 % (0.0-12.0); Neutrophils # (auto) 2.2 10 ^3/uL (1.6-8.6); Neutrophils % (auto) 61.2 % (37.0-80.0); Nucleated Red Blood Cells % 0.1 %; Platelet Count (auto) 46 10^3/uL (140-450); Red Blood Cells 2.65 10^6/uL (4.5-5.90); Red Cell Distribution Width 14.4 % (11.8-14.3); White Blood Cell 3.5 10^3/uL (4.4-10.8)
[2024-03-24 07:36] LABS: Chloride 107 mmol/L (98-107); Potassium 3.8 mmol/L (3.5-5.1); Sodium 137 mmol/L (136-145)
[2024-03-24 07:37] LABS: Anion Gap 5 (5-15); Carbon Dioxide 25 mmol/L (20-31)
[2024-03-24 07:38] LABS: Calcium 8.6 mg/dL (8.7-10.4)
[2024-03-24 07:42] LABS: Blood Urea Nitrogen 13 mg/dL (9-23); Glucose 91 mg/dL (74-106)
--- NOTE | 2024-03-24 16:23 | DVHPN2 ---
Subjective Decreasing swelling of right lower extremity Reviewed: Care Plan, H&P, Labs, Medications, Previous Orders, Radiology, Other (Consultations) Changes from previous H/P or p: Changes Objective Vitals Vital Signs Date Time Temp Pulse Resp B/P (MAP) Pulse Ox O2 Delivery O2 Flow Rate FiO2 03/24/24 13:00 98.4 86 18 90/56 (67) 99 98.4 03/24/24 08:00 Room Air* 0 21 Intake/Output Intake and Output 03/24/24 07:00 Intake Total 4006 ml Output Total 2300 ml Balance 1706 ml Intake Oral 3456 ml IV Total 550 ml Output Urine Total 2300 ml # Bowel Movements 1 General Appearance: Alert, Oriented X3, Cooperative, No acute distress HEENT: Atraumatic, Other (Pale) Lungs: Clear to auscultation, Normal air movement Cardiovascular: Regular rate, Normal S1, Normal S2 Abdomen: Normal bowel sounds, Soft, No tenderness Extremities: Other (Right lower extremity swelling; clean dressing) Neuro: Normal speech, Cranial nerves 3-12 NL Psych/Mental Status: Mental status NL, Mood NL Medications Current Medications Medications Dose Ordered Sig/Fabricio Route Start Time Stop Time Status Last Admin Dose Admin Vancomycin HCl 0 ml @ 0 mls/hr UD IV 03/09/24 20:30 Acetaminophen/ Hydrocodone Bitart 1 tab Q4HP PRN PO 03/09/24 20:30 03/22/24 20:44 1 TAB Ondansetron HCl 4 mg Q4HP PRN IV 03/09/24 20:30 Docusate Sodium 100 mg BIDPRN PRN PO 03/09/24 20:30 Acetaminophen 650 mg Q6HP PRN PO 03/09/24 20:30 03/16/24 05:16 650 MG Heparin Sodium (Porcine) 5,000 units Q12HR SC 03/09/24 22:00 Hold Nitroglycerin 0.4 mg Q5MINP PRN SL 03/09/24 22:30 Morphine Sulfate 2 mg Q30M PRN IV 03/09/24 22:30 Midodrine 10 mg TID@0600,1200,1800 PO 03/10/24 06:00 03/24/24 12:41 10 MG Vancomycin HCl 750 mg/Dextrose 100 ml @ 100 mls/hr O IV 03/10/24 07:00 03/10/24 08:00 Cancel Furosemide 20 mg BIDD IV 03/13/24 06:00 03/20/24 05:55 20 MG Ceftriaxone Sodium 50 ml @ 100 mls/hr DAILY@09 IV 03/14/24 09:00 03/24/24 08:42 100 MLS/HR Nicotine 1 patch DAILY TD 03/19/24 12:00 03/24/24 08:42 1 PATCH Methylprednisolone Sodium Succinate 40 mg DAILY IV 03/20/24 10:00 03/24/24 08:41 40 MG Tramadol HCl 50 mg Q8HPRN PRN PO 03/19/24 13:15 Famotidine 40 mg DAILY PO 03/22/24 10:00 03/24/24 08:41 40 MG Vancomycin HCl 250 ml @ 200 mls/hr Q12H IV 03/23/24 17:00 03/24/24 05:13 200 MLS/HR Laboratory Results Laboratory Tests 03/24/24 06:44 Chemistry Test 03/24/24 06:44 Calcium Level 8.6 mg/dL (8.7-10.4) L Urinalysis Test 03/10/24 22:00 Urine Color [place] (Yellow) H Urine Clarity Ex.turbid (Clear) Urine pH 6.0 (5.0-9.0) Urine Specific [place] 1.025 (1.001-1.035) Urine Protein 2+ (Negative) H Urine Ketones Trace (Negative) Urine Blood 2+ /uL (Negative) H Urine Nitrite Negative (Negative) Urine Bilirubin Negative (Negative) Urine Urobilinogen 4 mg/dL (Negative) H Urine Leukocyte Esterase Trace /uL (Negative) Urine RBC 36 /hpf (0 - 3) Urine WBC 29 /hpf (0 - 3) Urine Squamous Epithelial Cells Few /hpf (<5) Urine Bacteria Few /hpf (None Seen) H Urine Creatinine 196.38 mg/dL (30.0-125.0) H Urine Protein/Creatinine Ratio 1.29 Urine Sodium 16 mmol/L (40-220) L Urine Glucose Trace mg/dL (Normal) Urine Total Protein 253.3 mg/dL (1-14) H Microbiology Microbiology Date/Time Source Procedure Growth Status 03/19/24 09:40 Leg Right Anaerobic Culture - Final Complete 03/09/24 16:32 Blood Blood Culture - Final NO GROWTH AFTER 5 DAYS OF INCUBATION. Complete Labs and/or images reviewed: Labs reviewed by , Image(s) reviewed by me Assessment/Plan Assessment/Plan Covering Dr. Martines: #Right Achillis abscess, right ankle necrotizing fasciitis, and right ankle cellulitis; status post I&D twice on the February, then on the March,; status post delayed closure on the 22 March 2024; aerobic wound culture grew E coli; anaerobic cultures with no growth; continue current IV antibiotics for now; podiatry was following; reviewed the available imaging studies including MRIs; reviewed other cultures; continue monitoring #Sepsis due to above; continue current IV antibiotics; continue monitoring #Severe malnutrition in the setting of myelodysplastic syndrome; continue nutritional follow up; continue encouraging increasing oral intake; continue monitoring #Pancytopenia due to myelodysplastic syndrome; symptomatic anemia status post transfusion of 5 units of packed RBCs; status post transfusion of 2 units of platelet; no symptoms/signs of active bleeding; continue monitoring #Possible acute diastolic congestive heart failure; on IV Lasix; continue monitoring #COPD; not in exacerbation; continue monitoring #Schizophrenia; controlled with no active issues; holding medical management for now; continue monitoring #Polysubstance use disorder including tobacco and marijuana; counseled on cessation Needs re-evaluation by podiatry before deciding about discharge planning. Placed Communication Order. Late Entry. This medical document was created using an electronic medical record system with computerized dictation system. Although this document has been carefully reviewed, there might still be some phonetic and typographical errors. These areas are purely typographical due to imperfections of the software programs, and do not reflect any compromise in the patient's medical care. Plan discussed with: Patient, Other (Nurse) Date of Service: Mar 24, 2024 Billing Provider: ALLAN SCALES MD Common Visit Codes: [id number] INP/OBS CARE(HIGH) ALLAN SCALES MD Mar 24, 2024 16:23
[2024-03-25 01:00] VITALS: BP 99/64; PULSE 61; RESP 18; TEMP 98; O2SAT 97
[2024-03-25 05:00] VITALS: BP 89/52; PULSE 68; RESP 18; TEMP 98.3; O2SAT 97
[2024-03-25 07:49] LABS: Alkaline Phosphatase 74 U/L (46-116); Anion Gap 8 (5-15); BUN/Creatinine Ratio 25.7 (10.0-20.0); Bilirubin, Total 0.5 mg/dL (0.2-1.0); Blood Urea Nitrogen 18 mg/dL (9-23); Carbon Dioxide 24 mmol/L (20-31); Chloride 106 mmol/L (98-107); Glucose 90 mg/dL (74-106); Potassium 3.9 mmol/L (3.5-5.1); Sodium 138 mmol/L (136-145)
[2024-03-25 07:53] LABS: Alanine Aminotransferase 119 U/L (7-40); Aspartate Aminotransferase 40 U/L (13-40)
[2024-03-25 07:54] LABS: Albumin 2.6 g/dL (3.2-4.8); Calcium 8.5 mg/dL (8.7-10.4); Total Protein 5.3 g/dL (5.7-8.2)
[2024-03-25 07:57] LABS: Basophils # (auto) 0.1 10 ^3/uL (0-0.2); Basophils % (auto) 1.9 % (0.0-2.0); Eosinophils # (auto) 0.2 10 ^3/uL (0-0.8); Eosinophils % (auto) 5.4 % (0.0-7.0); Hematocrit 23.2 % (41.0-53.0); Hemoglobin 7.9 g/dL (13.5-17.5); Lymphocytes # (auto) 0.9 10 ^3/uL (0.4-5.4); Lymphocytes % (auto) 26.3 % (10.0-50.0); Mean Corpuscular Hemoglobin 30.8 pg (28.0-32.0); Mean Corpuscular Hgb Conc. 34.2 g/dL (32.0-36.0); Mean Corpuscular Volume 89.9 fL (80.0-100.0); Monocytes # (auto) 0.1 10 ^3/uL (0-1.3); Monocytes % (auto) 2.6 % (0.0-12.0); Neutrophils # (auto) 2.2 10 ^3/uL (1.6-8.6); Neutrophils % (auto) 63.8 % (37.0-80.0); Nucleated Red Blood Cells % 0.1 %; Platelet Count (auto) 47 10^3/uL (140-450); Red Blood Cells 2.58 10^6/uL (4.5-5.90); Red Cell Distribution Width 14.3 % (11.8-14.3); White Blood Cell 3.4 10^3/uL (4.4-10.8)
[2024-03-25 08:00] VITALS: PULSE 65; RESP 16; O2SAT 96
[2024-03-25] MEDS: traMADol HCL 50 MG TAB PO PRN (09:28)
[2024-03-25 13:00] VITALS: BP 97/57; PULSE 72; RESP 20; TEMP 97.8; O2SAT 96
[2024-03-25] MEDS ORDERED: CIP500T PO (15:32)
[2024-03-25] MEDS ORDERED: PRED20TA2 PO (15:33)
--- NOTE | 2024-03-25 15:39 | DVHDS2 ---
Discharge Summary Date of Admission Mar 09, 2024 at 22:24 Date of Discharge: Mar 25, 2024 Admitting Diagnosis Anemia due to MDS requiring transfusions Labs/Diagnostic Data: Laboratory Results Test 03/25/24 06:43 03/23/24 06:07 03/21/24 07:02 03/19/24 06:34 White Blood Count 3.4 10^3/uL (4.4-10.8) Red Blood Count 2.58 10^6/uL (4.5-5.90) Hemoglobin 7.9 g/dL (13.5-17.5) Hematocrit 23.2 % (41.0-53.0) Mean Corpuscular Volume 89.9 fL (80.0-100.0) Mean Corpuscular Hemoglobin 30.8 pg (28.0-32.0) Mean Corpuscular Hemoglobin Concent 34.2 g/dL (32.0-36.0) Red Cell Distribution Width 14.3 % (11.8-14.3) Platelet Count 47 10^3/uL (140-450) Mean Platelet Volume 10.1 fL (6.9-10.8) Neutrophils (%) (Auto) 63.8 % (37.0-80.0) Lymphocytes (%) (Auto) 26.3 % (10.0-50.0) Monocytes (%) (Auto) 2.6 % (0.0-12.0) Eosinophils (%) (Auto) 5.4 % (0.0-7.0) Basophils (%) (Auto) 1.9 % (0.0-2.0) Neutrophils # (Auto) 2.2 10 ^3/uL (1.6-8.6) Lymphocytes # (Auto) 0.9 10 ^3/uL (0.4-5.4) Monocytes # (Auto) 0.1 10 ^3/uL (0-1.3) Eosinophils # (Auto) 0.2 10 ^3/uL (0-0.8) Basophils # (Auto) 0.1 10 ^3/uL (0-0.2) Nucleated Red Blood Cells 0.1 % Sodium Level 138 mmol/L (136-145) Potassium Level 3.9 mmol/L (3.5-5.1) Chloride Level 106 mmol/L (98-107) Carbon Dioxide Level 24 mmol/L (20-31) Anion Gap 8 (5-15) Blood Urea Nitrogen 18 mg/dL (9-23) Creatinine 0.70 mg/dL (0.700-1.30) Glomerular Filtration Rate Calc 102 mL/min (>90) BUN/Creatinine Ratio 25.7 (10.0-20.0) Serum Glucose 90 mg/dL (74-106) Calcium Level 8.5 mg/dL (8.7-10.4) Total Bilirubin 0.5 mg/dL (0.2-1.0) Aspartate Amino Transferase (AST) 40 U/L (13-40) Alanine Aminotransferase (ALT) 119 U/L (7-40) Alkaline Phosphatase 74 U/L (46-116) Total Protein 5.3 g/dL (5.7-8.2) Albumin 2.6 g/dL (3.2-4.8) Vancomycin Level Trough 43.4 ug/mL (5-10) Platelet Estimate Decreased Erythrocyte Sedimentation Rate 95 mm/hr (0-20) C-Reactive Protein High Sensitivity 9.05 mg/dL (<1.0) Large Platelets Few Test 03/18/24 11:12 03/18/24 07:03 03/17/24 06:47 03/15/24 11:58 Influenza Type A Antigen Negative (Negative) Influenza Type B Antigen Negative (Negative) Prothrombin Time 12.6 sec (9.3-11.8) Prothrombin Time INR 1.21 (0.9-1.15) Activated Partial Thromboplast Time 26.5 SEC (24.5-34.5) Magnesium Level 2.2 mg/dL (1.6-2.6) Uric Acid 3.2 mg/dL (3.7-9.2) Test 03/14/24 06:15 03/10/24 22:00 03/10/24 08:25 03/10/24 05:44 Differential Total Cells Counted 100.0 (100) Neutrophils % (Manual) 89 (37.0-80.0) Band Neutrophils % (Manual) 5 Lymphocytes % (Manual) 3 (10.0-50.0) Monocytes % (Manual) 1 (0-12) Eosinophils % (Manual) 2 (0-7) Basophils % (Manual) 0 (0.0-2.0) Metamyelocytes % (manual) 0 Myelocytes % (Manual) 0 Promyelocytes % (Manual) 0 Blast Cells % (Manual) 0 Reactive Lymphocytes 0 Urine Color [place] (Yellow) Urine Clarity Ex.turbid (Clear) Urine pH 6.0 (5.0-9.0) Urine Specific [place] 1.025 (1.001-1.035) Urine Protein 2+ (Negative) Urine Ketones Trace (Negative) Urine Blood 2+ /uL (Negative) Urine Nitrite Negative (Negative) Urine Bilirubin Negative (Negative) Urine Urobilinogen 4 mg/dL (Negative) Urine Leukocyte Esterase Trace /uL (Negative) Urine RBC 36 /hpf (0 - 3) Urine WBC 29 /hpf (0 - 3) Urine Squamous Epithelial Cells Few /hpf (<5) Urine Bacteria Few /hpf (None Seen) Urine Creatinine 196.38 mg/dL (30.0-125.0) Urine Protein/Creatinine Ratio 1.29 Urine Sodium 16 mmol/L (40-220) Urine Glucose Trace mg/dL (Normal) Urine Total Protein 253.3 mg/dL (1-14) Urine Opiates Screen Neg (NEGATIVE) Urine Fentanyl Screen Neg (NEGATIVE) Urine Barbiturates Screen Neg (NEGATIVE) Urine Phencyclidine Screen Neg (NEGATIVE) Urine Amphetamines Screen Neg (NEGATIVE) Urine Benzodiazepines Screen Neg (NEGATIVE) Urine Cocaine Screen Neg (NEGATIVE) Urine Cannabinoids Screen Pos (NEGATIVE) Lactic Acid Level 1.8 mmol/L (0.4-2.0) Phosphorus Level 2.2 mg/dL (2.4-5.1) Hepatitis B Surface Antigen Negative (Negative) Hepatitis C Antibody Negative (Negative) Test 03/09/24 20:09 03/09/24 19:55 03/09/24 16:32 Troponin I High Sensitivity 12 ng/L (</=54) SARS-CoV-2 Antigen (Rapid) Negative (NEGATIVE) B-Type Natriuretic Peptide 162.31 pg/mL (0-100) Other Laboratory Tests 03/25/24 06:43 Brief Hx & Hospital Course: The patient is a 68-year-old male with past medical history of cancer, anemia, COPD, and schizophrenia who presented to [facility] ED with complaint of shortness of breaths. Patient reports symptoms progressively get worse with right leg swelling, painful right leg, fever, getting worse that prompted this visit. Patient was seen and evaluated in the ED, laboratory data shows WBC 7.0, hemoglobin 9.8, hematocrit 28.9, platelets 75221, sodium 138, potassium 4.1, BUN 24, creatinine 1.32, glucose 124, total bilirubin 1.5, troponin 12, lactic acid 5.3 trending down to 3.9, blood pressure 99/52, heart rate 108, temperature 100.0 F, O2 saturation 95% on oxygen. Patient was started on IV antibiotic regimen vancomycin, please see medication orders section in the computer. On my assessment, patient denied chest pain, no headache, no dizziness, no diaphoresis, currently on oxygen, no nausea, no vomiting, no chills. Patient was admitted for further evaluation and medical management. Patient had left Ankle swelling. Was seen in Podiatry consult underwent I&D. See operative report below. Patient will be discharged home with Cipro and Prednisone for anemia. Cultures grew E.coli. Operations or Procedures Operative Report - 2 Operative Report - 2 Report Details Date: 03/22/24 Preop Diagnosis: 1. Right achilles abscess 2. Right ankle necrotizing fasciitis 3. Right ankle cellulitis Postop Diagnosis: Same as preop Surgeon: Mason Bell MD Anesthesiologist: See anesthesia Anesthesia: General Consent: The patient was informed of the risks and benefits of the procedure. These include but are not limited to complications of anesthesia, postoperative infection, incomplete relief of symptoms, recurrence of symptoms, damage to blood vessels, nerves and tendons, deep venous thrombosis, pulmonary embolism and possible need for repeat surgery in the future. Complications: None Estimated Blood Loss: See anesthesia Fluids: See anesthesia Findings: Minimal amounts of purulent drainage Indications for Surgery: Worsening right leg wound Name of Procedure Performed 1. Right leg I&D (82296) 2. Right leg delayed closure (81163) Procedure Details Procedure Details: PRE-PROCEDURE INFORMATION: In the pre-op holding area, the extremity to be operated on was clearly marked and the patient verified correct laterality of the marking. The patient was transferred to the OR table and placed in a supine position. A timeout was performed in which identification of the correct patient, procedure, location, and materials was done. The right foot and leg were prepped and draped in normal sterile fashion. DESCRIPTION OF PROCEDURE: Attention was directed to the right where previous incision was made. An incision was made over this area and was deepened through blunt dissection. The incision was deepened to the level of abscess and bone. Care was taken to the dissection to avoid any neurovascular and tendinous structures. The incision was deepened to the bone, and the abscess appeared to be purulent fluid consistent with pus, proximally 15 mL. After the abscess was drained, the area was irrigated with 3 L normal saline using cysto tubing. The area was then inspected and any areas of tracking, especially along the tendons were also drained. Wound was then closed with a 2-0 nylon. All surgical wounds were irrigated copiously with saline and dry sterile dressing was added. POSTOPERATIVE INFORMATION: The patient tolerated the above noted procedure and anesthesia well and was transferred to the PACU with vital signs stable, and vascular status intact with capillary refill intact to all digits. Patient can be discharged home when deemed medically appropriate. Patient will need 2 weeks of oral antibiotics. Patient can weightbear as tolerated Condition at Discharge: Poor Final Diagnosis/Problems List 1. Right achilles abscess 2. Right ankle necrotizing fasciitis 3. Right ankle cellulitis 4. Anemia due to MDS requiring transfusions Discharge Disposition: Home Discharge Instruct/Medications Diet: Regular Activity: Light activity Follow Up/Referral: Dr. Bell, Podiatry Medications: Cipro Discharge Statement: "Patient was advised to return to the ER or call 911 if any headaches, dizziness, shortness of breath, chest pain, abdominal pain, bleeding, fevers, or worsening of medical condition. Patient was counseled about treatment plan, medications, possible side effects, patientverbalized understanding. All questions were answered to the best of my ability. This discharge took greater then 30 minutes in planning, reviewing documentation, counseling the patient, and discussing with other team members." ASSESSMENT ASSESSMENT Assessment Same as preop Date of Service: Mar 25, 2024 Billing Provider: VENKAT SMILEY MD Common Visit Codes: [id number] DISCH DAY >30min VENKAT SMILEY MD Mar 25, 2024 15:39
[2024-03-25 16:07] VITALS: BP 98/60; PULSE 77; RESP 20; TEMP 98; O2SAT 100
[2024-03-25 16:36] VITALS: BP 98/60; PULSE 77; RESP 20; TEMP 98; O2SAT 100
[2024-03-25] MEDS ORDERED: GENTAMICIN SULF 80 MG/2 ML VIAL IM ONE (16:48)
== END 2024-03-25 16:49 | disposition home or self-care (01) | DRG 710 ==
LOC: ER 15:58 → EDBD 15:58 → TELE 22:24 → TELE-EAST 03-10 17:50 → EAST 03-16 14:57
PROVIDERS: ADMIT Internal Medicine; ATTEND Internal Medicine
PROC: 30233N1 Transfusion of Nonautologous Red Blood Cells into Peripheral Vein, Percutaneous Approach (ICD-10-PCS; 2024-03-12)
PROC: B51B1ZZ Fluoroscopy of Right Lower Extremity Veins using Low Osmolar Contrast (ICD-10-PCS; 2024-03-14)
PROC: 30233R1 Transfusion of Nonautologous Platelets into Peripheral Vein, Percutaneous Approach (ICD-10-PCS; 2024-03-15)
PROC: 0L9S0ZZ Drainage of Right Ankle Tendon, Open Approach (ICD-10-PCS; principal; 2024-03-19 09:33)
PROC: 05HC33Z Insertion of Infusion Device into Left Basilic Vein, Percutaneous Approach (ICD-10-PCS; 2024-03-20)
PROC: B54NZZA Ultrasonography of Left Upper Extremity Veins, Guidance (ICD-10-PCS; 2024-03-20)
PROC: 0L9S0ZZ Drainage of Right Ankle Tendon, Open Approach (ICD-10-PCS; 2024-03-22)
DX: A41.9 Sepsis, unspecified organism (principal); N17.0 Acute kidney failure with tubular necrosis; M72.6 Necrotizing fasciitis; D61.818 Other pancytopenia; L02.415 Cutaneous abscess of right lower limb; D69.6 Thrombocytopenia, unspecified; L03.115 Cellulitis of right lower limb; Z20.822 Contact with and (suspected) exposure to COVID-19; D46.9 Myelodysplastic syndrome, unspecified; D63.0 Anemia in neoplastic disease; F20.9 Schizophrenia, unspecified; J44.9 Chronic obstructive pulmonary disease, unspecified; M65.071 Abscess of tendon sheath, right ankle and foot; F17.210 Nicotine dependence, cigarettes, uncomplicated; F19.10 Other psychoactive substance abuse, uncomplicated; Z68.27 Body mass index [BMI] 27.0-27.9, adult; Z83.3 Family history of diabetes mellitus; Z82.49 Family history of ischemic heart disease and other diseases of the circulatory system; Z85.46 Personal history of malignant neoplasm of prostate
CPT/HCPCS: 36415; 71045; 73610; 73721; 73723; 76937; 80048; 80053; 80202; 80307; 81001; 82565; 82570; 83605; 83735; 83880; 84100; 84156; 84300; 84484; 84550; 85007; 85018; 85025; 85027; 85610; 85652; 85730; 86141; 86803; 86850; 86900; 86901; 86902; 86922; 87040; 87070; 87075; 87077; 87186; 87205; 87340; 87426; 87804; 93005; 93306; 93971; 99291; G0378; J0131; J0692; J2003; J2250; J2405; J2704; J3490; P9047

== ENCOUNTER 2024-03-28 15:16 | Inpatient (IN) | payer MEDICARE, MEDICAID ==
[~2024-03-28] VITALS: Ht 180.3 cm; Wt 78.3 kg
[~2024-03-28 15:16] MED LIST changes: -ALBU108A5 INH; +ASPI1TAB20 PO; +CIP500T PO; +PRED20TA2 PO
--- NOTE | 2024-03-28 16:05 | ED.PDOC ---
Musculoskeletal HPI Comments Flavia. HPI: Poor Historian. Right lower extremity pain and swelling status post surgery few days ago. Pain is constant. Past Medcial History: Hypotension, tobacco abuse, leg cellulitis, thrombocytopenia, sepsis, anemia, MDS myelodysplastic syndrome, history of prostate cancer, hyperlipidemia Patient is on aspirin. Patient is on prednisone. Patient is currently on antibiotics. Patient was discharged from the hospital three days ago and still has the wound dressing in place of the right lower extremity postop and has not had any dressing changes. Patient states he underwent surgery for cellulitis. Past Surgical History: Tonsillectomy, leg surgery No known drug allergies REVIEW OF SYSTEMS: CONSTITUTIONAL: Denies acute: fever, diaphoresis, chills, HEAD: Denies acute: headache, photophobia Eyes: Denies acute: Double vision, vision loss, eye pain, eye discharge. EARS: Denies acute: tinnitus, hearing loss, ear discharge, ear pain, THROAT: Denies acute: sore throat, swelling, difficulty swallowing , pain with swallowing, change in voice. NECK: Denies acute: neck pain, neck swelling, stiff neck. HEART: Denies acute : chest pain, palpitations, LUNGS: Denies acute: wheezing, cough, hemoptysis ABDOMEN: Denies acute: abdominal pain, Nausea, Vomiting, diarrhea, melena , hematemesis, hematochezia SKIN: Denies acute: rash, , lesions, itchiness. EXTREMITIES: Denies acute: calf pain, numbness, tingling, weakness, Denies acute: Low back pain. Neuro: Denies acute: focal neurological deficit, motor or sensory focal neurological deficit, tremors, seizure like activity, confusion, dizziness, change in mental status, loss of bowel or bladder function, cauda equina like symptoms. : Denies acute: dysuria, hematuria, flank pain, increase in urinary frequency. PSYCH: Denies acute: hallucination, suicidal ideation, homicidal ideation. PHYSICAL EXAM: General: Mild acute distress, awake and alert. Head: normocephalic, atraumatic. Neck: supple, trachea is midline, no swelling. Throat: Normal phonation. Eyes:, no erythema, no purulent discharge, no proptosis, no icterus. Heart: regular rate, regular rhythm, no significant murmur appreciated. Lungs: no apparent respiratory distress, Able to speak in full sentences. No wheezing, no rhonchi, no crackles. No stridors Clear to auscultation bilaterally. Abdomen: non tender to palpation, non distended, soft, no guarding, no rebound, + bowel sounds. Neuro: Awake, Alert, oriented to name, self, situation, follows commands GCS=15. Speech is normal. Skin: no petechia, no purpura, no cyanosis, non-pale, not jaundice. Lower extremities: --3/4- Pitting edema of right lower extremity no deformity, no calf TTP. Right lower extremity: Dressing was unwrapped. The patient is noted to have pitting edema and noted stitches in place. Wound is clean intact with some minimal oozing. No no concerning findings for infection. Pedal pulses palpable. Makes eye contact. moves all four extremities. Face: no apparent facial droop. Time Seen by MD: 15:32 Primary Care Provider: marlon Reviewed Notes: Nurses Notes, Allergies Allergies: Coded Allergies: NO KNOWN ALLERGIES (Unverified , 12/04/23) Home Meds Active Scripts Cephalexin (KEFLEX CAPSULE) 250 Mg Cp, 500 MG PO TID for 10 Days, #30 CAP Prov:VENKAT SMILEY MD 04/10/24 Hydrocodone-Acetaminophen (Hydrocodone Bitartrate/AC 10-325 mg) 1 Tab Tab, 1 TAB PO TIDP PRN for 7 Days, #21 TAB Prov:VENKAT SMILEY MD 04/10/24 Hydrocortone (Hydrocortisone 1%) 1 Applic Ap, 1 APPLIC TOP BID, #30 GRAMS Prov:JUAN ROGERS MD 02/08/24 Reported Medications Aspirin (Aspir-81) 81 Mg Tab, 1 TAB PO DAILY, #30 TAB 5 Refills 03/10/24 Midodrine HCl (Midodrine Hydrochloride) 5 Mg Tab, 1 TAB PO TID 01/30/24 Risperidone (Risperidone) 2 Mg Tab, 2 MG PO BID, TAB 12/05/23 Nicotine (Nicoderm 21MG/24HR) 1 Patch Ph, 1 PATCH TOP DAILY, #28 PATCH 1 Refill 12/05/23 Mirtazapine (Mirtazapine Oral Disintegrating Tablet) 45 Mg Tab, 1 TAB PO QPM, #30 TAB 1 Refill 12/05/23 Melatonin (KP MELATONIN) 3 Mg Tab, 3 MG PO HS, TAB 12/05/23 Leuprolide Acetate (3 Month) (Lupron Depot) 22.5 Mg Inj, 22.5 MG IM, INJ 12/05/23 Gabapentin (Gabapentin) 600 Mg Tab, 600 MG PO BID, TAB 12/05/23 Folic Acid (Folic Acid) 1 Mg Tab, 1 MG PO DAILY for 30 Days, MG 12/05/23 Fluticasone Furoate (Inhalatio (Arnuity Ellipta) 200 Mcg/Act Inh, 200 MCG IN, INHALER 12/05/23 Atorvastatin Calcium (ATORVASTATIN CALCIUM) 40 Mg Tab, 1 TAB PO DAILY, #30 TAB 5 Refills 12/05/23 Albuterol Sulfate (VENTOLIN MDI) 90 Mcg Ih, 90 MCG IN, INH 12/05/23 Discontinued Scripts Prednisone (Prednisone) 20 Mg Tab, 20 MG PO QAM for 5 Days, #5 MG Prov:VENKAT SMILEY MD 03/25/24 Ciprofloxacin Hydrochloride (Ciprofloxacin HCl) 500 Mg Tab, 500 MG PO BID for 7 Days, #14 TAB Prov:VENKAT SMILEY MD 03/25/24 Information Source: Patient Past Medical History PAST MEDICAL HISTORY: Anemia, Cancer, COPD, Schizophrenia Surgical History: Unknown Family History Family History: Reviewed,noncontributory to illness, Unknown Social History Smoker: Cigarettes Alcohol: Denies ETOH Use Drugs: Denies Drug Use Lives In: Home Was a procedure done? Was a procedure done?: No Differential Diagnosis EXT Differential Diagnosis: Cellulitis, CHF, Deep Vein Thrombosis, Compartment Syndrome, Neurovascular injury X-Ray, Labs, Meds, VS Vital Signs Date Time Temp Pulse Resp B/P (MAP) Pulse Ox O2 Delivery O2 Flow Rate FiO2 03/28/24 22:52 98.6 95 16 98/54 (69) 100 98.6 03/28/24 20:52 98.1 94 20 108/61 (77) 97 98.1 03/28/24 20:52 94 20 97 Room Air 03/28/24 20:15 98.5 97 16 89/51 (64) 98 98.5 03/28/24 17:19 18 96 Room Air* 0 21 03/28/24 16:23 89 03/28/24 15:40 98.3 86 18 135/92 (106) 99 Lab Test 03/28/24 18:40 03/28/24 17:08 03/28/24 16:12 Range/Units Lactic Acid Level 2.5 *H 2.9 *H 0.4-2.0 mmol/L Troponin I High Sensitivity < 3 L < 3 L </=54 ng/L White Blood Count 5.7 # 4.4-10.8 10^3/uL Red Blood Count 2.83 L 4.5-5.90 10^6/uL Hemoglobin 8.6 L 13.5-17.5 g/dL Hematocrit 25.4 L 41.0-53.0 % Mean Corpuscular Volume 89.8 80.0-100.0 fL Mean Corpuscular Hemoglobin 30.3 28.0-32.0 pg Mean Corpuscular Hemoglobin Concent 33.8 32.0-36.0 g/dL Red Cell Distribution Width 14.4 H 11.8-14.3 % Platelet Count 56 L 140-450 10^3/uL Mean Platelet Volume 10.0 6.9-10.8 fL Neutrophils (%) (Auto) 86.4 H 37.0-80.0 % Lymphocytes (%) (Auto) 9.1 L 10.0-50.0 % Monocytes (%) (Auto) 2.4 0.0-12.0 % Eosinophils (%) (Auto) 0.7 0.0-7.0 % Basophils (%) (Auto) 1.4 0.0-2.0 % Neutrophils # (Auto) 5.0 1.6-8.6 10 ^3/uL Lymphocytes # (Auto) 0.5 0.4-5.4 10 ^3/uL Monocytes # (Auto) 0.1 0-1.3 10 ^3/uL Eosinophils # (Auto) 0 0-0.8 10 ^3/uL Basophils # (Auto) 0.1 0-0.2 10 ^3/uL Nucleated Red Blood Cells 0.0 % Erythrocyte Sedimentation Rate 91 H 0-20 mm/hr Sodium Level 138 136-145 mmol/L Potassium Level 4.4 3.5-5.1 mmol/L Chloride Level 109 H 98-107 mmol/L Carbon Dioxide Level 23 20-31 mmol/L Anion Gap 6 5-15 Blood Urea Nitrogen 11 9-23 mg/dL Creatinine 0.79 0.700-1.30 mg/dL Glomerular Filtration Rate Calc 98 >90 mL/min BUN/Creatinine Ratio 13.9 10.0-20.0 Serum Glucose 124 H 74-106 mg/dL Calcium Level 9.2 8.7-10.4 mg/dL Total Bilirubin 0.3 0.2-1.0 mg/dL Aspartate Amino Transferase (AST) 50 H 13-40 U/L Alanine Aminotransferase (ALT) 158 H 7-40 U/L Alkaline Phosphatase 93 46-116 U/L C-Reactive Protein High Sensitivity 4.91 H <1.0 mg/dL B-Type Natriuretic Peptide 22.99 0-100 pg/mL Total Protein 6.6 5.7-8.2 g/dL Albumin 3.3 3.2-4.8 g/dL Right lower extremity venous duplex Clinical History: leg swelling Comparison: US RT LOWER DVT on DOS: 03/13/24, US RT LOWER DVT on DOS: 03/09/24, US RT LOWER DVT on DOS: 02/06/24 Technique: Duplex Doppler evaluation of the deep venous system of the right lower extremity from the common femoral vein to the popliteal vein including color Doppler and spectral/pulsed waveform analysis was performed. Findings: The common femoral vein demonstrates appropriate compressibility and waveform variability. There is compressibility/patency of the great saphenous vein at the proximal thigh. The femoral vein demonstrates appropriate compressibility and waveform variability. The deep femoral vein demonstrates appropriate compressibility and waveform variability. The popliteal vein demonstrates appropriate compressibility and waveform variability. There is normal compressibility at the tibioperoneal trunk. Impression: No right femoropopliteal venous thrombosis. If clinical concern/symptoms persist or worsen, short-interval follow-up study is suggested. Time of 1ST Reevaluation: 00:00 Reevaluation 1ST: N/A Patient Education/Counseling: Diagnosis, Treatment Family Education/Counseling: Other Comments Patient presented with the above HPI.---leg complaint---workup was initiated. patient was found with the above mentioned diagnosis. the following medications were ordered: please refer to order lists of meds and tests obtained by myself Dr. Soto. Patient ED course and VS have been stabilized. Patient has been reassessed in the ED and remained in a stable condition. Pertinent incidental findings were discussed with the patient and/or family. Patient/family voices understanding and is agreeable with plan. Patient has been observed in the ED adequate length of time to insure improvement/stability. Escalation of care considered: Consideration of escalation to observation or admission Patient was ADMITTED to the medicine team for further evaluation and treatment of their presentation. All the reports of any imaging studies that were ordered by myself were reviewed by myself. Departure 1 Departure Time of Disposition: 19:28 Impression: Primary Impression: Postoperative pain Additional Impression: Cellulitis of right lower extremity Disposition: ADMITTED INPATIENT Admit to: Tele Condition: Guarded e-Prescriptions Cephalexin (KEFLEX CAPSULE) 250 Mg Cp 500 MG PO TID for 10 Days, #30 CAP Prov: VENKAT SMILEY MD 04/10/24 Hydrocodone-Acetaminophen (Hydrocodone Bitartrate/AC 10-325 mg) 1 Tab Tab 1 TAB PO TIDP PRN for 7 Days, #21 TAB Prov: VENKAT SMILEY MD 04/10/24 Discharged With: Self Critical Care Note Critical Care Time?: No Heart Score Heart Score: Heart Score Response (Comments) Value History N/A 0 EKG N/A 0 Age N/A 0 Risk Factors N/A 0 Troponin N/A 0 Total 0 I personally scribed for LUISA SOTO DO ([email or web address]) on 03/29/24 at 00:45. Electronically submitted by Casper Vaughan ([email or web address]). LUISA SOTO DO Mar 28, 2024 16:05
[2024-03-28 16:56] LABS: Basophils # (auto) 0.1 10 ^3/uL (0-0.2); Eosinophils # (auto) 0 10 ^3/uL (0-0.8); Eosinophils % (auto) 0.7 % (0.0-7.0); Hemoglobin 8.6 g/dL (13.5-17.5); Lymphocytes # (auto) 0.5 10 ^3/uL (0.4-5.4); Mean Corpuscular Hgb Conc. 33.8 g/dL (32.0-36.0); Monocytes # (auto) 0.1 10 ^3/uL (0-1.3); Red Cell Distribution Width 14.4 % (11.8-14.3); White Blood Cell 5.7 10^3/uL (4.4-10.8)
[2024-03-28 16:58] LABS: Basophils % (auto) 1.4 % (0.0-2.0); Hematocrit 25.4 % (41.0-53.0); Lymphocytes % (auto) 9.1 % (10.0-50.0); Mean Corpuscular Hemoglobin 30.3 pg (28.0-32.0); Mean Corpuscular Volume 89.8 fL (80.0-100.0); Monocytes % (auto) 2.4 % (0.0-12.0); Neutrophils % (auto) 86.4 % (37.0-80.0); Platelet Count (auto) 56 10^3/uL (140-450); Red Blood Cells 2.83 10^6/uL (4.5-5.90)
--- NOTE | 2024-03-28 17:01 | DVH ---
Right lower extremity venous duplex Clinical History: leg swelling Comparison: US RT LOWER DVT on DOS: 03/13/24, US RT LOWER DVT on DOS: 03/09/24, US RT LOWER DVT on DO S: 02/06/24 Technique: Duplex Doppler evaluation of the deep venous system of the right lower extremity from the common femo ral vein to the popliteal vein including color Doppler and spectral/pulsed waveform analysis was perf ormed. Findings: The common femoral vein demonstrates appropriate compressibility and waveform variability. There is compressibility/patency of the great saphenous vein at the proximal thigh. The femoral vein demonstrates appropriate compressibility and waveform variability. The deep femoral vein demonstrates appropriate compressibility and waveform variability. The popliteal vein demonstrates appropriate compressibility and waveform variability. There is normal compressibility at the tibioperoneal trunk. Impression: No right femoropopliteal venous thrombosis. If clinical concern/symptoms persist or worsen, short-interval follow-up study is suggested.
[2024-03-28 17:13] LABS: Albumin 3.3 g/dL (3.2-4.8); Alkaline Phosphatase 93 U/L (46-116); Anion Gap 6 (5-15); BUN/Creatinine Ratio 13.9 (10.0-20.0); Blood Urea Nitrogen 11 mg/dL (9-23); Calcium 9.2 mg/dL (8.7-10.4); Carbon Dioxide 23 mmol/L (20-31); Potassium 4.4 mmol/L (3.5-5.1); Sodium 138 mmol/L (136-145)
[2024-03-28 17:14] LABS: Total Protein 6.6 g/dL (5.7-8.2)
[2024-03-28 17:15] LABS: Alanine Aminotransferase 158 U/L (7-40); Aspartate Aminotransferase 50 U/L (13-40); Bilirubin, Total 0.3 mg/dL (0.2-1.0); Chloride 109 mmol/L (98-107); Glucose 124 mg/dL (74-106)
[2024-03-28 17:17] LABS: Lactic Acid w/Reflex 2.9 mmol/L (0.4-2.0)
[2024-03-28 17:19] VITALS: RESP 18; O2SAT 96
[2024-03-28 17:23] LABS: CRP High Sensitivity 4.91 mg/dL (<1.0)
[2024-03-28 17:52] LABS: Erythrocyte Sedimentation Rate 91 mm/hr (0-20)
--- NOTE | 2024-03-28 19:11 | ECG ---
[facility] Test Date: 2024-03-28 Test Time: 16:18:38 Pat Name: MEME ALONSO Department: ED Room: 0293 Gender: M Home Health Outreach Coordinator: KING : 1955 Requested By: LUISA SOTO Order Number: [id number] Reading MD: Davide Villa Measurements Intervals [place] Rate: 89 P: 47 OH: 126 QRS: 73 QRSD: 111 T: 23 QT: 363 QTc: 442 Interpretive Statements Sinus rhythm Left ventricular hypertrophy Probable inferior infarct, old Baseline wander in lead(s) V3 Electronically Signed On 03-29-2024 13:12:54 PST by Davide Villa Please click the below link to view image of tracing.
[2024-03-28] MEDS: SODIUM CHLORIDE 0.9% 1,000 ML IV ONE (19:30)
[2024-03-28] MEDS: PIPERACILLIN-TAZOB 3.375GM 100 ML IV ONE (20:39)
[2024-03-28] MEDS: HYDROcodone-ACET 5/325MG TAB PO ONE (20:52)
[2024-03-29] VITALS (12 sets, daily range): BP systolic 80–110; BP diastolic 43–60; PULSE 72–92; RESP 12–20; TEMP 98.1–99.3; O2SAT 96–98
[2024-03-29] MEDS: SODIUM CHLORIDE 0.9% 1,000 ML IV ONE (00:14)
[2024-03-29] MEDS ORDERED: VANCOMYCIN PER PHARMACY 0 MG IV SCH (04:00)
[2024-03-29] MEDS: SODIUM CHLORIDE 0.9% 500 ML IV ONE ×2 (04:00→16:45)
[2024-03-29] MEDS ORDERED: ONDANSETRON HCL 4 MG/2 ML VIAL IV PRN (04:00)
[2024-03-29] MEDS: VANCOMYCIN 1GM/250ML KIT 250 ML IV SCH (04:15)
[2024-03-29] MEDS: HYDROcodone-ACET 10/325MG TAB PO PRN (05:02)
[2024-03-29] MEDS: CEFEPIME 1GM/ 50ML 50 ML IV SCH (06:00)
[2024-03-29] MEDS: SODIUM CHLORIDE 0.9% 1,000 ML IV SCH (06:00)
--- NOTE | 2024-03-29 06:11 | DVHHPRES ---
History of Present Illness Resident Creating Document: ROBBI CALLES RESIDENT History of Present Illness Patient is a 68-year-old male with a past medical history are described below came to the ED with a chief complaint of right lower extremity swelling and pain status post I&D. Patient was recently discharged from the hospital after he was admitted for right ankle cellulitis with right Achillis abscess, right ankle necrotizing fasciitis status post I&D X 2 and was discharged home on ciprofloxacin. Patient reports that since he went home the swelling in his righ t lower extremity has been increasing and worsening pain which has not been controlled with his pain medications following which she came to the ED for further evaluation. Patient denied any other complaints of shortness of breath, dizziness, chest pain, fever, chills Past medical history: myelodysplastic syndrome, schizophrenia, COPD, dyslipidemia, DVT with cellulitis, prostate cancer s/p prostatectomy and radiation Past surgical history: Prostatectomy, incision and drainage? of the left lower extremity Social history: Patient lives with his sister, smokes 10 cigarettes per day for the past 30 years. Denies using any drugs. Home medications: Albuterol, aspirin, atorvastatin, fluticasone, folic acid, gabapentin, loperamide, mirtazapine, risperidone Review of Systems Review of Systems Patient reports pain in the right lower extremity, the right foot and ankle. Denies chest pain, shortness of breath, dizziness, headache, fever, chills. Reports normal bowel movements, no nausea, vomiting Allergies: Coded Allergies: NO KNOWN ALLERGIES (Unverified , 12/04/23) Medications Current Medications Medications Dose Ordered Sig/Fabricio Route Start Time Stop Time Status Last Admin Dose Admin Acetaminophen/ Hydrocodone Bitart 1 tab Q6HP PRN PO 03/29/24 03:30 03/29/24 05:02 1 TAB Melatonin 5 mg HS PO 03/29/24 22:00 Cefepime HCl 50 ml @ 12.5 mls/hr Q8HR IV 03/29/24 06:00 Vancomycin HCl 0 ml @ 0 mls/hr UD IV 03/29/24 04:00 UNV Gabapentin 400 mg BID PO 03/29/24 10:00 Vancomycin HCl 250 ml @ 125 mls/hr Q2H IV 03/29/24 04:15 03/29/24 08:14 03/29/24 04:15 125 MLS/HR Ondansetron HCl 4 mg Q6HPRN PRN IV 03/29/24 04:00 Enoxaparin Sodium 40 mg DAILY SC 03/29/24 10:00 Famotidine 20 mg DAILY IV 03/29/24 10:00 Exam Vital Signs Vital Signs Date Time Temp Pulse Resp B/P (MAP) Pulse Ox O2 Delivery O2 Flow Rate FiO2 03/29/24 00:08 98.5 86 18 95/60 (72) 97 98.5 03/28/24 20:52 Room Air 03/28/24 17:19 0 21 Exam Physical Examination Constitutional: Patient was alert and oriented to time, place and person and does not appear to be in any acute distress. Gen - mild conjunctival pallor, no icterus, no cyanosis, no clubbing, no LAD, no edema . Skin - Patients skin is warm and dry.. HEENT - normocephalic, atraumatic, moist mucous membranes. Neck - full ROM, no LAD, no JVD Pulmonary - B/L vesicular breath sounds. no crackles , no wheezing cardiovascular - normal S1,S2 heard. no murmurs heard. GI - soft abdomen without tenderness to palpation. no hepatospleenomegaly. Bowel sounds normoactive Neurological - Bilateral upper extremity strength 5/5, left lower extremity strength 5/5, right lower extremity strength 4/5, no facial droop, normal speech, no tremor, no sensory deficiets. Labs/Xrays Labs Test 03/28/24 18:40 03/28/24 17:08 03/28/24 16:12 Range/Units Lactic Acid Level 2.5 *H 0.4-2.0 mmol/L Troponin I High Sensitivity < 3 L </=54 ng/L White Blood Count 5.7 # 4.4-10.8 10^3/uL Red Blood Count 2.83 L 4.5-5.90 10^6/uL Hemoglobin 8.6 L 13.5-17.5 g/dL Hematocrit 25.4 L 41.0-53.0 % Mean Corpuscular Volume 89.8 80.0-100.0 fL Mean Corpuscular Hemoglobin 30.3 28.0-32.0 pg Mean Corpuscular Hemoglobin Concent 33.8 32.0-36.0 g/dL Red Cell Distribution Width 14.4 H 11.8-14.3 % Platelet Count 56 L 140-450 10^3/uL Mean Platelet Volume 10.0 6.9-10.8 fL Neutrophils (%) (Auto) 86.4 H 37.0-80.0 % Lymphocytes (%) (Auto) 9.1 L 10.0-50.0 % Monocytes (%) (Auto) 2.4 0.0-12.0 % Eosinophils (%) (Auto) 0.7 0.0-7.0 % Basophils (%) (Auto) 1.4 0.0-2.0 % Neutrophils # (Auto) 5.0 1.6-8.6 10 ^3/uL Lymphocytes # (Auto) 0.5 0.4-5.4 10 ^3/uL Monocytes # (Auto) 0.1 0-1.3 10 ^3/uL Eosinophils # (Auto) 0 0-0.8 10 ^3/uL Basophils # (Auto) 0.1 0-0.2 10 ^3/uL Nucleated Red Blood Cells 0.0 % Erythrocyte Sedimentation Rate 91 H 0-20 mm/hr Sodium Level 138 136-145 mmol/L Potassium Level 4.4 3.5-5.1 mmol/L Chloride Level 109 H 98-107 mmol/L Carbon Dioxide Level 23 20-31 mmol/L Anion Gap 6 5-15 Blood Urea Nitrogen 11 9-23 mg/dL Creatinine 0.79 0.700-1.30 mg/dL Glomerular Filtration Rate Calc 98 >90 mL/min BUN/Creatinine Ratio 13.9 10.0-20.0 Serum Glucose 124 H 74-106 mg/dL Calcium Level 9.2 8.7-10.4 mg/dL Total Bilirubin 0.3 0.2-1.0 mg/dL Aspartate Amino Transferase (AST) 50 H 13-40 U/L Alanine Aminotransferase (ALT) 158 H 7-40 U/L Alkaline Phosphatase 93 46-116 U/L C-Reactive Protein High Sensitivity 4.91 H <1.0 mg/dL B-Type Natriuretic Peptide 22.99 0-100 pg/mL Total Protein 6.6 5.7-8.2 g/dL Albumin 3.3 3.2-4.8 g/dL Assessment/Plan Assessment/Plan Assessment Sepsis likely due to ?Right Achilles abscess Right Achilles abscess s/p I&D X 2 Lactic acidosis h/o myelodysplastic syndrome Normocytic normochromic anemia Thrombocytopenia Peripheral neuropathy Plan - blood culture pending - wound culture pending - CT right foot with contrast pending - started on vancomycin IV per pharmacy and cefepime 1 g IV q.8 hours - [place] 10/325 q.6 p.r.n. - 2.5 L NS bolus given - running IV NS at 100 mL/hour - podiatry consulted - patient NPO under seen by Podiatry ( may need surgery) - continue outpatient management for myelodysplastic syndrome - anemia asymptomatic, monitor H&H - thrombocytopenia, no current bleeding or petechiae, monitor CBC - peripheral neuropathy- continued on gabapentin PUD prophylaxis: Famotidine 20 mg IV daily DVT prophylaxis: held d/t low platelet count Goals of care discussed with the patient for over 21 minutes. Full code Plan discussed with Dr. Smiley Plan discussed with: Patient My Orders Orders - ROBBI CALLES RESIDENT Procedure Category Date Status Time Admit ADMIT 03/28/24 Transmitted 23:06 *Podiatry Consult CONS 03/28/24 Transmitted Musson(Dvmg) 23:06 Code Status CODE 03/28/24 Transmitted 23:13 Hydrocodone-Acet PHA 03/29/24 In Process 10325mg Tab ([place] 03:30 Melatonin (Melatonin) PHA 03/29/24 In Process 22:00 Regular Diet DIET 03/29/24 Transmitted Breakfast Blood Culture REBECA 03/29/24 Uncollected 03:53 Wound Culture W/ Gs REBECA 03/29/24 Uncollected 03:53 Cefepime 1gm/ 50ml PHA 03/29/24 In Process (Maxipime 1gm/50ml) 06:00 Vancomycin Per PHA 03/29/24 Pending Pharmacy 04:00 Complete Blood Count LAB 03/29/24 Logged 03:53 Comprehensive LAB 03/29/24 Logged Metabolic Panel 03:53 PTPTT LAB 03/29/24 Logged 03:53 Drug Screen LAB 03/29/24 Logged 03:53 Gabapentin Capsule PHA 03/29/24 In Process (Neurontin Capsule) 10:00 Ondansetron Hcl PHA 03/29/24 In Process (Zofran) 04:00 Lactic Acid W/ Reflex LAB 03/29/24 Logged Order 04:00 Enoxaparin Sodium PHA 03/29/24 In Process (Lovenox) 10:00 Famotidine Injection PHA 03/29/24 In Process (Pepcid Injection) 10:00 Covid19 Antigen Dara LAB 03/29/24 Logged Rapid Influenza A&B LAB 03/29/24 Logged 04:00 Vancomycin 1gm/250ml PHA 03/29/24 In Process Kit 04:15 Date of Service: Mar 28, 2024 Billing Provider: VENKAT SMILEY MD Common Visit Codes: 37601-GGTCJJH INP/OBS CARE (HIGH) Secondary Visit Codes: 16532-[id number] CARE PLAN 30 MINUTES ROBBI CALLES RESIDENT Mar 29, 2024 06:11 VENKAT SMILEY MD Mar 29, 2024 20:53
[2024-03-29 09:00] LABS: Basophils # (auto) 0.1 10 ^3/uL (0-0.2); Eosinophils # (auto) 0.2 10 ^3/uL (0-0.8); Eosinophils % (auto) 3.3 % (0.0-7.0); Neutrophils # (auto) 4.3 10 ^3/uL (1.6-8.6); Nucleated Red Blood Cells % 0.1 %
[2024-03-29 09:03] LABS: Basophils % (auto) 1.3 % (0.0-2.0); Hematocrit 21.6 % (41.0-53.0); Hemoglobin 7.3 g/dL (13.5-17.5); Lymphocytes % (auto) 17.3 % (10.0-50.0); Mean Corpuscular Hemoglobin 30.1 pg (28.0-32.0); Mean Corpuscular Hgb Conc. 33.6 g/dL (32.0-36.0); Mean Corpuscular Volume 89.5 fL (80.0-100.0); Monocytes # (auto) 0.2 10 ^3/uL (0-1.3); Monocytes % (auto) 2.8 % (0.0-12.0); Neutrophils % (auto) 75.3 % (37.0-80.0); Platelet Count (auto) 46 10^3/uL (140-450); Red Blood Cells 2.42 10^6/uL (4.5-5.90); Red Cell Distribution Width 14.2 % (11.8-14.3); White Blood Cell 5.7 10^3/uL (4.4-10.8)
[2024-03-29 09:06] LABS: Alkaline Phosphatase 80 U/L (46-116); Anion Gap 6 (5-15); Aspartate Aminotransferase 34 U/L (13-40); BUN/Creatinine Ratio 16.4 (10.0-20.0); Bilirubin, Total 0.4 mg/dL (0.2-1.0); Blood Urea Nitrogen 10 mg/dL (9-23); Carbon Dioxide 24 mmol/L (20-31); Potassium 3.7 mmol/L (3.5-5.1); Sodium 139 mmol/L (136-145)
[2024-03-29 09:09] LABS: INR 1.08 (0.9-1.15); Partial Thromboplastin Time 25.9 SEC (24.5-34.5); Prothrombin Time 11.4 sec (9.3-11.8)
[2024-03-29 09:12] LABS: Alanine Aminotransferase 117 U/L (7-40); Albumin 2.8 g/dL (3.2-4.8); Calcium 8.7 mg/dL (8.7-10.4); Chloride 109 mmol/L (98-107); Glucose 108 mg/dL (74-106); Total Protein 5.4 g/dL (5.7-8.2)
[2024-03-29] MEDS ORDERED: ENOXAPARIN SOD 40 MG/0.4 ML SYRINGE SC SCH (10:00)
[2024-03-29] MEDS: FAMOTIDINE (10MG/ML) 2ML VL IV SCH (10:15)
[2024-03-29] MEDS: GABAPENTIN 400 MG CAP PO SCH (10:15)
[2024-03-29] MEDS ORDERED: VANCOMYCIN 1.25GM/250ML 250 ML IV SCH (14:00)
--- NOTE | 2024-03-29 16:59 | DVHPNRES ---
Progress Note Date Seen: Mar 29, 2024 Resident Creating Document: DANG BROOKS RESIDENT Medical Necessity Reason Pt with a Central, PICC or Fol: No Subjective Review of Systems 68-year-old male patient with past medical history of myelodysplastic syndrome, schizophrenia, COPD, dyslipidemia, DVT with cellulitis(extremely patient was previously hospitalized because of cellulitis in the left tight). Patient was recently discharged from [facility] after being admitted for cellulitis in the right ankle, complicated with Achilles abscess and necrotizing fascitis status post incision and drainage x2 and was discharged home on ciprofloxacin. Since then the right lower extremity and swelling has been increasing and worsening for which the patient returned to the emergency department. Podiatry was consulted. Vancomycin and cefepime IV. She was given [place] 10 for pain control. Wound Care was consulted. Back of red blood cell was given to the patient as her most recent hemoglobin was 7.2. Blood pressure stay in the lower side, map 55, blood pressure 80/43. H&H Past medical history: myelodysplastic syndrome, schizophrenia, COPD, dyslipidemia, DVT with cellulitis, prostate cancer s/p prostatectomy and radiation Past surgical history: Prostatectomy, incision and drainage? of the left lower extremity Social history: Patient lives with his sister, smokes 10 cigarettes per day for the past 30 years. Denies using any drugs. Home medications: Albuterol, aspirin, atorvastatin, fluticasone, folic acid, gabapentin, loperamide, mirtazapine, risperidone Patient reports: No new complaints Changes from previous H/P or p: No Changes Objective vital signs Vital Sign Date Time Temp Pulse Resp B/P (MAP) Pulse Ox O2 Delivery O2 Flow Rate FiO2 03/29/24 16:22 99.0 78 12 80/43 (55) 98 99.0 03/29/24 03:08 Room Air* 0 21 Total Intake and Output 03/28/24 03/28/24 03/29/24 15:00 23:00 07:00 Intake Total 470 ml Output Total 0 ml Balance 470 ml medications Current Medications Medications Dose Ordered Sig/Fabricio Route Start Time Stop Time Status Last Admin Dose Admin Acetaminophen/ Hydrocodone Bitart 1 tab Q6HP PRN PO 03/29/24 03:30 03/29/24 12:10 1 TAB Melatonin 5 mg HS PO 03/29/24 22:00 Cefepime HCl 50 ml @ 12.5 mls/hr Q8HR IV 03/29/24 06:00 03/29/24 14:19 12.5 MLS/HR Vancomycin HCl 0 ml @ 0 mls/hr UD IV 03/29/24 04:00 Gabapentin 400 mg BID PO 03/29/24 10:00 03/29/24 10:15 400 MG Ondansetron HCl 4 mg Q6HPRN PRN IV 03/29/24 04:00 Famotidine 20 mg DAILY IV 03/29/24 10:00 03/29/24 10:15 20 MG Vancomycin HCl 250 ml @ 200 mls/hr Q12H IV 03/29/24 17:00 Examination Constitutional: Patient was alert and oriented to time, place and person and does not appear to be in any acute distress. Gen - mild conjunctival pallor, no icterus, no cyanosis, no clubbing, no LAD, no edema . Skin -cellulitis in the right lower leg HEENT - normocephalic, atraumatic, moist mucous membranes. Neck - full ROM, no LAD, no JVD Pulmonary - B/L vesicular breath sounds. no crackles , no wheezing cardiovascular - normal S1,S2 heard. no murmurs heard. GI - soft abdomen without tenderness to palpation. no hepatospleenomegaly. Bowel sounds normoactive Neurological - Bilateral upper extremity strength 5/5, left lower extremity strength 5/5, right lower extremity strength 4/5, no facial droop, normal speech, no tremor, no sensory deficiets. laboratory and microbiology Laboratory Tests 03/29/24 08:06 Test 03/29/24 08:06 Range/Units Serum Glucose 108 H 74-106 mg/dL Microbiology Date/Time Source Procedure Growth Status 03/29/24 04:10 Nose MRSA Screen - Final Complete Problem List/Assessment/Plan Problem List/Assessment/Plan #Sepsis likely due to cellulitis status post Right Achilles abscess incision and drainage #Lactic acidosis, resolved # no severe sepsis criteria # Q sofa 1 point -continue monitoring Q sofa/ -transferred to telemetry -hypotension, map 55 -normal saline 500 mL bolus -continue IV antibiotics -H&H -podiatry consult -wound care consult #History of myelodysplastic syndrome -normocytic normochromic anemia -status post transfusion -H&H #Asymptomatic Thrombocytopenia -Lovenox held. #Peripheral neuropathy -continue on gabapentin Case discussed with Dr. Vergara Goals of care discussed with the patient for 28 patient Code status: Full code Plan discussed with: Patient My Orders My Orders Orders - DANG BROOKS Procedure Category Date Status Time Type And Screen BBK 03/29/24 In Process 11:31 * Dietary Consult CONS 03/29/24 Transmitted 13:09 Cleanse Wound With KATIA 03/29/24 In Process Wound Clean 10:36 Wound Culture W/ Gs REBECA 03/29/24 In Process 15:05 Date of Service: Mar 29, 2024 Billing Provider: ОЛЬГА VERGARA MD Common Visit Codes: [id number] INP/OBS CARE(HIGH) Secondary Visit Codes: [id number] CARE PLAN 30 MINUTES DANG BROOKS RESIDENT Mar 29, 2024 16:59 ОЛЬГА VERGARA MD Mar 31, 2024 18:20
[2024-03-29] MEDS: VANCOMYCIN 1.25GM/250ML 250 ML IV SCH (17:00)
[2024-03-29 19:35] LABS: Hematocrit 23.5 % (41.0-53.0); Hemoglobin 8.1 g/dL (13.5-17.5)
[2024-03-29] MEDS: MELATONIN 5 MG TAB PO SCH (22:56)
[2024-03-30] VITALS (9 sets, daily range): BP systolic 80–98; BP diastolic 49–60; PULSE 74–91; RESP 18–20; TEMP 98.2–99.7; O2SAT 91–100
[2024-03-30 08:14] LABS: Basophils # (auto) 0.1 10 ^3/uL (0-0.2); Eosinophils # (auto) 0.3 10 ^3/uL (0-0.8); Monocytes # (auto) 0.2 10 ^3/uL (0-1.3)
[2024-03-30 08:17] LABS: Basophils % (auto) 1.4 % (0.0-2.0); Eosinophils % (auto) 4.9 % (0.0-7.0); Hematocrit 24.8 % (41.0-53.0); Hemoglobin 8.5 g/dL (13.5-17.5); Lymphocytes % (auto) 15.2 % (10.0-50.0); Mean Corpuscular Hemoglobin 30.1 pg (28.0-32.0); Mean Corpuscular Hgb Conc. 34.1 g/dL (32.0-36.0); Mean Corpuscular Volume 88.2 fL (80.0-100.0); Monocytes % (auto) 2.9 % (0.0-12.0); Neutrophils % (auto) 75.6 % (37.0-80.0); Nucleated Red Blood Cells % 0.1 %; Platelet Count (auto) 49 10^3/uL (140-450); Red Blood Cells 2.82 10^6/uL (4.5-5.90); Red Cell Distribution Width 15.5 % (11.8-14.3); White Blood Cell 6.6 10^3/uL (4.4-10.8)
[2024-03-30 08:33] LABS: Anion Gap 7 (5-15); Carbon Dioxide 22 mmol/L (20-31); Potassium 3.9 mmol/L (3.5-5.1); Sodium 137 mmol/L (136-145)
[2024-03-30 08:34] LABS: Calcium 8.9 mg/dL (8.7-10.4)
[2024-03-30 08:39] LABS: BUN/Creatinine Ratio 10.8 (10.0-20.0); Glucose 104 mg/dL (74-106)
[2024-03-30 08:40] LABS: Blood Urea Nitrogen 7 mg/dL (9-23); Chloride 108 mmol/L (98-107)
[2024-03-30 10:25] LABS: Opiate Scree,Urine Neg (NEGATIVE)
[2024-03-30 10:26] LABS: Amphetamine Screen, Urine Neg (NEGATIVE); Barbiturate Scree,Urine Neg (NEGATIVE); Benzodiazephine Screen, Urine Neg (NEGATIVE); Cannabinoid Screen, Urine Neg (NEGATIVE); Cocaine Screen, Urine Neg (NEGATIVE); Phencyclidine Screen, Urine Neg (NEGATIVE)
[2024-03-30] MEDS: MIDODRINE HCL 10 MG TAB PO ONE (12:06)
--- NOTE | 2024-03-30 15:47 | DVHPNRES ---
Progress Note Date Seen: Mar 30, 2024 Resident Creating Document: DANG BROOKS RESIDENT Medical Necessity Reason Pt with a Central, PICC or Fol: No Subjective Review of Systems 68-year-old male patient with past medical history of myelodysplastic syndrome, schizophrenia, COPD, dyslipidemia, DVT with cellulitis(extremely patient was previously hospitalized because of cellulitis in the left tight). Patient was recently discharged from [facility] after being admitted for cellulitis in the right ankle, complicated with Achilles abscess and necrotizing fascitis status post incision and drainage x2 and was discharged home on ciprofloxacin. Since then the right lower extremity and swelling has been increasing and worsening for which the patient returned to the emergency department. Podiatry was consulted, pending Surgical consultation. Vancomycin and cefepime IV. She was given [place] 10 for pain control. Wound Care was consulted. Current hemoglobin 8.5 Blood pressure stay in the lower side, map 63, blood pressure 80/55 Was examined at bedside he reports the pain is progressively getting worse and he noticed the entire right leg more swollen than before. There are no signs of hypoperfusion but blood pressure remains in the lower side, current 80 over 65 (map 63) the area remains red, warm and swollen, very tender on palpation on my assessment there are no fluctuation that indicates a possible abscess or bulla. Vital signs are within normal limits except for the blood pressure. Patient started on midodrine. He will continue antibiotics. CRP/ESR/lactic acid were ordered to monitor severity and spreading of infection. Blood culture and wound culture (preliminary): No growth Patient reports: No new complaints Changes from previous H/P or p: No Changes Objective vital signs Vital Sign Date Time Temp Pulse Resp B/P (MAP) Pulse Ox O2 Delivery O2 Flow Rate FiO2 03/30/24 13:00 98.2 80 18 80/55 (63) 95 98.2 03/30/24 08:00 Room Air* 0 21 Total Intake and Output 03/29/24 03/29/24 03/30/24 15:00 23:00 07:00 Intake Total 50 ml 350 ml 700 ml Output Total 1000 ml Balance 50 ml 350 ml -300 ml medications Current Medications Medications Dose Ordered Sig/Fabricio Route Start Time Stop Time Status Last Admin Dose Admin Acetaminophen/ Hydrocodone Bitart 1 tab Q6HP PRN PO 03/29/24 03:30 03/30/24 08:46 1 TAB Melatonin 5 mg HS PO 03/29/24 22:00 03/29/24 22:56 5 MG Cefepime HCl 50 ml @ 12.5 mls/hr Q8HR IV 03/29/24 06:00 03/30/24 14:22 12.5 MLS/HR Vancomycin HCl 0 ml @ 0 mls/hr UD IV 03/29/24 04:00 Gabapentin 400 mg BID PO 03/29/24 10:00 03/30/24 08:30 400 MG Ondansetron HCl 4 mg Q6HPRN PRN IV 03/29/24 04:00 Famotidine 20 mg DAILY IV 03/29/24 10:00 03/30/24 08:30 20 MG Vancomycin HCl 250 ml @ 200 mls/hr Q12H IV 03/29/24 17:00 03/30/24 04:35 200 MLS/HR Midodrine 5 mg BID PO 03/30/24 22:00 Enteral Nutritional Formula 28.8 gm BID PO 03/30/24 22:00 laboratory and microbiology Laboratory Tests 03/30/24 07:30 Test 03/30/24 07:30 Range/Units Serum Glucose 104 74-106 mg/dL Microbiology Date/Time Source Procedure Growth Status 03/29/24 13:07 Blood Blood Culture - Preliminary NO GROWTH AFTER 24 HOURS OF INCUBATION. Resulted 03/29/24 10:45 Leg Right Gram Stain - Final Resulted 03/29/24 10:45 Leg Right Wound Culture - Preliminary Resulted Problem List/Assessment/Plan Problem List/Assessment/Plan #Sepsis likely due to cellulitis status post Right Achilles abscess incision and drainage #Lactic acidosis, resolved # no severe sepsis criteria # Q sofa 1 point -continue monitoring Q sofa/ -transferred to telemetry -hypotension, map 63 -normal saline 500 mL bolus -continue IV antibiotics -podiatry consult -wound care consult -surgical consult -CRP -ESR -Lactic acid - midodrine iv #History of myelodysplastic syndrome -normocytic normochromic anemia -status post transfusion -current hemoglobin 8.5 #Asymptomatic Thrombocytopenia -Lovenox held. #Peripheral neuropathy -continue on gabapentin #Schizophrenia -on risperidone and mirtazapine at home, held due to hypotension status. Case discussed with Dr. Wadsworth Goals of care discussed with the patient for 28 patient Code status: Full code Plan discussed with: Patient My Orders My Orders Orders - DANG BROOKS RESIDENT Procedure Category Date Status Time Transfer Orders XFER 03/29/24 Transmitted 16:33 Urinalysis LAB 03/30/24 Logged 10:04 Regular Diet DIET 03/29/24 Transmitted Dinner Midodrine Tablet PHA 03/30/24 In Process (Proamatine Tablet) 22:00 Nutritional PHA 03/30/24 In Process Supplements (Lukas 22:00 * Surgical Consult CONS 03/30/24 Transmitted Urinalysis LAB 03/30/24 Uncollected 15:30 Dietary Evaluation Review Comments: 1)Continue current diet 2)Consider adding Lukas BID (180kcal, 5 g pro) for wound healing Expected Outcomes/Goals: 1. Pt will consume >75% of estimated needs within 3-5 days Date of Service: Mar 30, 2024 Billing Provider: THERESA ROWLAND MD Common Visit Codes: [id number] INP/OBS CARE(HIGH) DANG BROOKS RESIDENT Mar 30, 2024 15:47 THERESA ROWLAND MD Apr 01, 2024 21:11
[2024-03-30 16:27] LABS: Urine Bacteria None Seen /hpf (None Seen)
[2024-03-30 17:00] LABS: Urine Blood Negative /uL (Negative); Urine Clarity Clear (Clear); Urine Color Light-Yellow (Yellow); Urine Protein, UAD Negative (Negative); Urine Specific Gravity 1.014 (1.001-1.035); Urine Squamous Epithelial Cell FEW /hpf (<5); Urine Urobilinogen Normal (Negative); Urine WBC 1 /hpf (0 - 3)
--- NOTE | 2024-03-30 18:39 | DVH ---
Procedure: CT RT LOWER EXTREMITY W CON 03/30/2024 05:36 PM Indication: INCREASING SWELLING; ABSCESS/NECROSIS Comparison Study: MRI ankle dated 03/18/2024. Technique: Axial images of the right leg were obtained after administration of IV contrast and reform atted in coronal and sagittal planes. All CT scans at this medical facility are performed using dose modulation techniques as appropriate t o a performed exam including the following: Automated exposure control was utilized; adjustment of th e MA and/or KV according to patient size; and use of iterative reconstruction technique. CT Dose: CTDI volume is 7.75 mGy. Dose-length product is 451.76 mGy*cm FINDINGS: Bones: No acute fracture or dislocation. No cortical erosion or lytic osseous lesion. Visualized and ankle joints are intact. Soft tissues: Diffuse subcutaneous edema overlying the leg and ankle. An open wound is seen over the lateral aspect of mid to distal leg at the level fibular shaft without underlying cortical erosion. A peripherally enhancing fluid collection noted anterior tendon. Achilles tendon is thickened and abn ormal volume morphology and attenuation. This fluid collection seems to be communicate with the drain ing wound on lateral aspect of the leg. Peripherally enhancing elongated hypodensities seen at the mu sculotendinous junction of the extensor digitorum and extensor hallucis longus tendons that may repre sent developing abscesses. A small, 1 cm subcutaneous abscess noted in the medial aspect of mid leg. The muscles are markedly edematous. IMPRESSION: 1. Achilles tendinosis, infectious peritendinitis with an associated large 7.6 x 3 cm abscess in kage r's fat pad extending from achilles musculotendinous junction to near the calcaneal insertion vertica lly and laterally to mid leg where it drains to the surface of the skin. 2. Suggestion of smaller abscesses the musculotendinous junctions of the extensor digitorum and hallu cis longus tendons. 3. Diffuse cellulitis and developing small subcutaneous abscesses in mid to distal leg. No evidence o f gas gangrene. 4. Diffuse myositis. 5. No evidence of osteomyelitis at this time.
[2024-03-30 18:51] LABS: Erythrocyte Sedimentation Rate 58 mm/hr (0-20)
[2024-03-30 19:21] LABS: % Iron Saturation 75.5 % (20-55)
[2024-03-30] MEDS: MIDODRINE HCL 10 MG TAB PO SCH (22:19)
[2024-03-30] MEDS: Juven Fruit Punch Powder PACKET 28.8gm PO SCH (22:20)
[2024-03-31] VITALS (8 sets, daily range): BP systolic 93–110; BP diastolic 50–63; PULSE 64–97; RESP 16–20; TEMP 98.2–100.2; O2SAT 96–99
[2024-03-31 04:21] LABS: Basophils # (auto) 0.1 10 ^3/uL (0-0.2); Basophils % (auto) 1.3 % (0.0-2.0); Eosinophils # (auto) 0.3 10 ^3/uL (0-0.8); Hemoglobin 7.7 g/dL (13.5-17.5); Lymphocytes % (auto) 13.9 % (10.0-50.0); Monocytes # (auto) 0.2 10 ^3/uL (0-1.3); Nucleated Red Blood Cells % 0.1 %; Red Cell Distribution Width 15.1 % (11.8-14.3)
[2024-03-31 04:25] LABS: Eosinophils % (auto) 4.8 % (0.0-7.0); Hematocrit 22.2 % (41.0-53.0); Lymphocytes # (auto) 0.8 10 ^3/uL (0.4-5.4); Mean Corpuscular Hgb Conc. 34.5 g/dL (32.0-36.0); Mean Corpuscular Volume 86.9 fL (80.0-100.0); Monocytes % (auto) 4.1 % (0.0-12.0); Neutrophils # (auto) 4.6 10 ^3/uL (1.6-8.6); Neutrophils % (auto) 75.9 % (37.0-80.0); Platelet Count (auto) 39 10^3/uL (140-450); Red Blood Cells 2.55 10^6/uL (4.5-5.90)
[2024-03-31 04:46] LABS: Chloride 105 mmol/L (98-107); Potassium 3.9 mmol/L (3.5-5.1)
[2024-03-31 04:47] LABS: Anion Gap 6 (5-15); Carbon Dioxide 24 mmol/L (20-31)
[2024-03-31 04:50] LABS: Sodium 135 mmol/L (136-145)
[2024-03-31 04:52] LABS: BUN/Creatinine Ratio 22.1 (10.0-20.0); Blood Urea Nitrogen 15 mg/dL (9-23)
[2024-03-31 05:25] LABS: Glucose 120 mg/dL (74-106)
[2024-03-31 06:44] LABS: COVID19 ANTIGEN SOFIA FIA NEGATIVE (NEGATIVE); Rapid Influenza A Negative (Negative); Rapid Influenza B Negative (Negative)
[2024-03-31] MEDS: MORPHINE SULFATE INJ 2 MG/ml SYRG IV PRN (13:04)
--- NOTE | 2024-03-31 15:58 | DVHPNRES ---
Progress Note Date Seen: Mar 31, 2024 Resident Creating Document: TAMMIE VILLASENOR RESIDENT Medical Necessity Reason Pt with a Central, PICC or Fol: No Subjective Review of Systems 68-year-old male patient with past medical history of myelodysplastic syndrome, schizophrenia, COPD, dyslipidemia, DVT with cellulitis(extremely patient was previously hospitalized because of cellulitis in the left tight). Patient was recently discharged from [facility] after being admitted for cellulitis in the right ankle, complicated with Achilles abscess and necrotizing fascitis status post incision and drainage x2 and was discharged home on ciprofloxacin. Since then the right lower extremity and swelling has been increasing and worsening for which the patient returned to the emergency department. Podiatry was consulted, pending Surgical consultation. Vancomycin and cefepime IV. he was given [place] 10 and morphine p.r.n. for pain control. Wound Care was consulted. Was examined at bedside he reports the pain is progressively getting worse and he noticed the entire right leg more swollen than before. There are no signs of hypoperfusion but blood pressure remains in the lower side, current 80 over 65 (map 63) the area remains red, warm and swollen, very tender on palpation on my assessment there are no fluctuation that indicates a possible abscess or bulla. Vital signs are within normal limits except for the blood pressure. He will continue antibiotics. Objective vital signs Vital Sign Date Time Temp Pulse Resp B/P (MAP) Pulse Ox O2 Delivery O2 Flow Rate FiO2 03/31/24 13:34 88 16 99/59 03/31/24 12:30 98.2 97 98.2 03/30/24 20:00 Room Air* 0 21 Total Intake and Output 03/30/24 03/30/24 03/31/24 15:00 23:00 07:00 Intake Total 50 ml 290 ml 600 ml Output Total 310 ml 400 ml Balance 50 ml -20 ml 200 ml medications Current Medications Medications Dose Ordered Sig/Fabricio Route Start Time Stop Time Status Last Admin Dose Admin Acetaminophen/ Hydrocodone Bitart 1 tab Q6HP PRN PO 03/29/24 03:30 03/31/24 09:56 1 TAB Melatonin 5 mg HS PO 03/29/24 22:00 03/30/24 22:19 5 MG Cefepime HCl 50 ml @ 12.5 mls/hr Q8HR IV 03/29/24 06:00 03/31/24 06:20 12.5 MLS/HR Vancomycin HCl 0 ml @ 0 mls/hr UD IV 03/29/24 04:00 Gabapentin 400 mg BID PO 03/29/24 10:00 03/31/24 09:54 400 MG Ondansetron HCl 4 mg Q6HPRN PRN IV 03/29/24 04:00 Famotidine 20 mg DAILY IV 03/29/24 10:00 03/31/24 09:54 20 MG Vancomycin HCl 250 ml @ 200 mls/hr Q12H IV 03/29/24 17:00 03/31/24 05:05 200 MLS/HR Midodrine 5 mg BID PO 03/30/24 22:00 03/31/24 09:55 5 MG Enteral Nutritional Formula 28.8 gm BID PO 03/30/24 22:00 03/31/24 09:54 28.8 GM Morphine Sulfate 1 mg Q6HP PRN IV 03/31/24 11:15 03/31/24 13:04 1 MG laboratory and microbiology Laboratory Tests 03/31/24 03:45 Test 03/31/24 03:45 Range/Units Serum Glucose 120 H 74-106 mg/dL Microbiology Date/Time Source Procedure Growth Status 03/29/24 13:07 Blood Blood Culture - Preliminary NO GROWTH AFTER 48 HOURS OF INCUBATION. Resulted 03/29/24 10:45 Leg Right Gram Stain - Final Resulted 03/29/24 10:45 Leg Right Wound Culture - Preliminary Resulted Problem List/Assessment/Plan Problem List/Assessment/Plan #Sepsis likely due to cellulitis status post Right Achilles abscess incision and drainage #Lactic acidosis, resolved # no severe sepsis criteria # Q sofa 1 point -continue monitoring Q sofa/ -transferred to telemetry -hypotension, map 63 -normal saline 500 mL bolus -continue IV antibiotics -podiatry consult -wound care consult -CRP elevated -ESR elevated -Lactic acid - midodrine iv #History of myelodysplastic syndrome -normocytic normochromic anemia -status post transfusion -current hemoglobin 8.5 #Asymptomatic Thrombocytopenia -Lovenox held. #Peripheral neuropathy -continue on gabapentin #Schizophrenia -on risperidone and mirtazapine at home, held due to hypotension status. podiatry consult pending Case discussed with Dr. Wadsworth Goals of care discussed with the patient for 21 patient Code status: Full code Plan discussed with: Patient My Orders My Orders Orders - TAMMIE VILLASENOR Procedure Category Date Status Time Morphine Sulfate PHA 03/31/24 In Process Injection 11:15 Dietary Evaluation Review Comments: 1)Continue current diet 2)Consider adding Lukas BID (180kcal, 5 g pro) for wound healing Expected Outcomes/Goals: 1. Pt will consume >75% of estimated needs within 3-5 days Date of Service: Mar 31, 2024 Billing Provider: THERESA ROWLAND MD Common Visit Codes: [id number] INP/OBS CARE(HIGH) TAMMIE VILLASENOR RESIDENT Mar 31, 2024 15:58 TEHRESA ROWLAND MD Apr 01, 2024 21:32
[2024-03-31] MEDS: IOHEXOL 300 MG/ML 100ML BOTTLE IJ ONE (18:54)
[2024-04-01] MEDS ORDERED: LABETALOL HCL 20 MG/4 ML VL IV ONE (01:00)
[2024-04-01] MEDS: CEFEPIME 1GM/ 50ML 50 ML IV SCH (03:10)
[2024-04-01 05:00] VITALS: BP 101/98; PULSE 71; RESP 18; TEMP 98.2; O2SAT 98
--- NOTE | 2024-04-01 06:39 | DVH ---
CHEST RADIOGRAPH Indication: Procedure pain Technique: Single frontal view of the chest was obtained Comparison: XY CHEST PORTABLE on DOS: 03/09/24, XY CHEST PORTABLE on DOS: 02/20/24, XY CHEST PORTABLE on DOS: 02/13/24, XY CHEST PORTABLE on DOS: 12/04/23 FINDINGS: Lines and Tubes: None Lungs: No focal consolidation. Pleura: No effusion. No pneumothorax. Cardiomediastinal contours: Unremarkable Bones: No acute osseous abnormality. IMPRESSION: No acute cardiopulmonary disease.
[2024-04-01 07:39] LABS: Basophils # (auto) 0.1 10 ^3/uL (0-0.2); Eosinophils # (auto) 0.4 10 ^3/uL (0-0.8); Hemoglobin 7.5 g/dL (13.5-17.5); Lymphocytes # (auto) 0.6 10 ^3/uL (0.4-5.4); Mean Corpuscular Volume 87.2 fL (80.0-100.0); Monocytes # (auto) 0.2 10 ^3/uL (0-1.3); Neutrophils % (auto) 75.6 % (37.0-80.0); White Blood Cell 5.3 10^3/uL (4.4-10.8)
[2024-04-01 07:43] LABS: Basophils % (auto) 1.2 % (0.0-2.0); Eosinophils % (auto) 6.7 % (0.0-7.0); Hematocrit 21.9 % (41.0-53.0); Lymphocytes % (auto) 12.3 % (10.0-50.0); Mean Corpuscular Hemoglobin 29.7 pg (28.0-32.0); Mean Corpuscular Hgb Conc. 34.1 g/dL (32.0-36.0); Monocytes % (auto) 4.2 % (0.0-12.0); Platelet Count (auto) 33 10^3/uL (140-450); Red Blood Cells 2.51 10^6/uL (4.5-5.90); Red Cell Distribution Width 15.1 % (11.8-14.3)
[2024-04-01 07:49] LABS: INR 1.1 (0.9-1.15); Partial Thromboplastin Time 27.8 SEC (24.5-34.5); Prothrombin Time 11.6 sec (9.3-11.8)
[2024-04-01 07:52] LABS: Chloride 105 mmol/L (98-107); Potassium 3.9 mmol/L (3.5-5.1)
[2024-04-01 07:53] LABS: Anion Gap 6 (5-15); Carbon Dioxide 25 mmol/L (20-31); Sodium 136 mmol/L (136-145)
[2024-04-01 07:54] LABS: Calcium 8.8 mg/dL (8.7-10.4)
[2024-04-01 07:58] LABS: BUN/Creatinine Ratio 17.5 (10.0-20.0); Blood Urea Nitrogen 11 mg/dL (9-23)
[2024-04-01 08:00] VITALS: BP 86/44; PULSE 61; PULSE 76; RESP 17; RESP 18; TEMP 99; O2SAT 99
[2024-04-01 08:03] LABS: Glucose 114 mg/dL (74-106)
[2024-04-01] MEDS: VANCOMYCIN 1.25GM/250ML 250 ML IV SCH (11:00)
--- NOTE | 2024-04-01 11:42 | DVHINCON2 ---
Date Seen: Apr 01, 2024 Reason for Consultation Right leg abscess History of Present Illness Patient is a 68-year-old male with a past medical history are described below came to the ED with a chief complaint of right lower extremity swelling and pain status post I&D. Patient was recently discharged from the hospital after he was admitted for right ankle cellulitis with right Achillis abscess, right ankle necrotizing fasciitis status post I&D X 2 and was discharged home on ciprofloxacin. Patient reports that since he went home the swelling in his right lower extremity has been increasing and worsening pain which has not been controlled with his pain medications following which she came to the ED for further evaluation. Patient denied any other complaints of shortness of breath, dizziness, chest pain, fever, chills Past Medical History See H&P Past Surgical History See H&P Family History: Diabetes mellitus G8 MOTHER FH: heart attack G8 FATHER, Allergies: Coded Allergies: NO KNOWN ALLERGIES (Unverified , 12/04/23) Home Meds Active Scripts Prednisone (Prednisone) 20 Mg Tab, 20 MG PO QAM for 5 Days, #5 MG Prov:VENKAT SMILEY MD 03/25/24 Ciprofloxacin Hydrochloride (Ciprofloxacin HCl) 500 Mg Tab, 500 MG PO BID for 7 Days, #14 TAB Prov:VENKAT SMILEY MD 03/25/24 Hydrocodone-Acetaminophen (Hydrocodone Bitartrate/AC 10-325 mg) 1 Tab Tab, 1 TAB PO QID PRN, #30 TAB Prov:SHARON LUEVANO MD 02/23/24 Hydrocortone (Hydrocortisone 1%) 1 Applic Ap, 1 APPLIC TOP BID, #30 GRAMS Prov:JUAN ROGERS MD 02/08/24 Reported Medications Aspirin (Aspir-81) 81 Mg Tab, 1 TAB PO DAILY, #30 TAB 5 Refills 03/10/24 Midodrine HCl (Midodrine Hydrochloride) 5 Mg Tab, 1 TAB PO TID 01/30/24 Risperidone (Risperidone) 2 Mg Tab, 2 MG PO BID, TAB 12/05/23 Nicotine (Nicoderm 21MG/24HR) 1 Patch Ph, 1 PATCH TOP DAILY, #28 PATCH 1 Refill 12/05/23 Mirtazapine (Mirtazapine Oral Disintegrating Tablet) 45 Mg Tab, 1 TAB PO QPM, #30 TAB 1 Refill 12/05/23 Melatonin (KP MELATONIN) 3 Mg Tab, 3 MG PO HS, TAB 12/05/23 Leuprolide Acetate (3 Month) (Lupron Depot) 22.5 Mg Inj, 22.5 MG IM, INJ 12/05/23 Gabapentin (Gabapentin) 600 Mg Tab, 600 MG PO BID, TAB 12/05/23 Folic Acid (Folic Acid) 1 Mg Tab, 1 MG PO DAILY for 30 Days, MG 12/05/23 Fluticasone Furoate (Inhalatio (Arnuity Ellipta) 200 Mcg/Act Inh, 200 MCG IN, INHALER 12/05/23 Atorvastatin Calcium (ATORVASTATIN CALCIUM) 40 Mg Tab, 1 TAB PO DAILY, #30 TAB 5 Refills 12/05/23 Albuterol Sulfate (VENTOLIN MDI) 90 Mcg Ih, 90 MCG IN, INH 12/05/23 Discontinued Reported Medications Albuterol Sulfate (Albuterol Sulfate Hfa) 108 Mcg/Act Aer, INH 01/30/24 Current Medications Current Medications Medications (Trade) Dose Ordered Sig/Fabricio Route PRN Reason Start Time Stop Time Status Last Admin Cefepime HCl 50 ml @ 12.5 mls/hr Q8H IV 04/01/24 03:00 04/01/24 11:28 Vancomycin HCl 250 ml @ 200 mls/hr Q12H IV 04/01/24 11:00 Vital Signs Vital Signs Date Time Temp Pulse Resp B/P (MAP) Pulse Ox O2 Delivery O2 Flow Rate FiO2 04/01/24 08:00 99.0 61 18 86/44 (58) 99 99.0 04/01/24 08:00 Room Air* 0 21 Physical Exam DERMATOLOGIC EXAM: - Skin is dry and cool to the touch dry bilaterally. - Nails 1-5 of the bilateral foot are thickened, discolored, dystrophic, and tender to palpate with subungual debris - Hair loss noted to bilateral feet - fluctuance right lateral leg VASCULAR EXAM: - DP and PT pulses are palpable bilaterally. - COMMISSARY HELPER is brisk to all digits. - Feet are cool to touch compared to lower legs bilaterally. NEUROLOGIC EXAM: - Normal light touch sensation to the superficial peroneal, deep peroneal, sural, saphenous, and tibial nerve branches. - Protective sensation is diminished as tested with a 5.07 10g [place]-Renae bilaterally. MUSCULOSKELETAL EXAM: - No gross deformities - Muscle strength is 5/5 and active motion is pain-free and symmetrical bilaterally - No pain or crepitation with passive range of motion bilaterally to all major pedal joints Labs/Diagnostic Data Labs Test 04/01/24 07:00 03/31/24 06:00 03/31/24 03:45 03/30/24 18:41 Range/Units White Blood Count 5.3 4.4-10.8 10^3/uL Red Blood Count 2.51 L 4.5-5.90 10^6/uL Hemoglobin 7.5 L 13.5-17.5 g/dL Hematocrit 21.9 L 41.0-53.0 % Mean Corpuscular Volume 87.2 80.0-100.0 fL Mean Corpuscular Hemoglobin 29.7 28.0-32.0 pg Mean Corpuscular Hemoglobin Concent 34.1 32.0-36.0 g/dL Red Cell Distribution Width 15.1 H 11.8-14.3 % Platelet Count 33 L 140-450 10^3/uL Mean Platelet Volume 8.6 6.9-10.8 fL Neutrophils (%) (Auto) 75.6 37.0-80.0 % Lymphocytes (%) (Auto) 12.3 10.0-50.0 % Monocytes (%) (Auto) 4.2 0.0-12.0 % Eosinophils (%) (Auto) 6.7 0.0-7.0 % Basophils (%) (Auto) 1.2 0.0-2.0 % Neutrophils # (Auto) 4.0 1.6-8.6 10 ^3/uL Lymphocytes # (Auto) 0.6 0.4-5.4 10 ^3/uL Monocytes # (Auto) 0.2 0-1.3 10 ^3/uL Eosinophils # (Auto) 0.4 0-0.8 10 ^3/uL Basophils # (Auto) 0.1 0-0.2 10 ^3/uL Nucleated Red Blood Cells 0.0 % Prothrombin Time 11.6 9.3-11.8 sec Prothrombin Time INR 1.10 0.9-1.15 Activated Partial Thromboplast Time 27.8 24.5-34.5 SEC Sodium Level 136 136-145 mmol/L Potassium Level 3.9 3.5-5.1 mmol/L Chloride Level 105 98-107 mmol/L Carbon Dioxide Level 25 20-31 mmol/L Anion Gap 6 5-15 Blood Urea Nitrogen 11 9-23 mg/dL Creatinine 0.63 L 0.700-1.30 mg/dL Glomerular Filtration Rate Calc 105 >90 mL/min BUN/Creatinine Ratio 17.5 10.0-20.0 Serum Glucose 114 H 74-106 mg/dL Calcium Level 8.8 8.7-10.4 mg/dL Influenza Type A Antigen Negative Negative Influenza Type B Antigen Negative Negative SARS-CoV-2 Antigen (Rapid) Negative NEGATIVE Vancomycin Level Trough 13.7 H 5-10 ug/mL Lactic Acid Level 1.9 0.4-2.0 mmol/L Test 03/30/24 17:30 03/30/24 16:15 03/30/24 16:00 03/30/24 09:15 Range/Units C-Reactive Protein High Sensitivity 10.89 H <1.0 mg/dL Iron Level 120 65-175 ug/dL Total Iron Binding Capacity 159 L 250-425 ug/dL Percent Iron Saturation 75.5 H 20-55 % Urine Color Light-yellow Yellow Urine Clarity Clear Clear Urine pH 6.0 5.0-9.0 Urine Specific [place] 1.014 1.001-1.035 Urine Protein Negative Negative Urine Ketones Negative Negative Urine Blood Negative Negative /uL Urine Nitrite Negative Negative Urine Bilirubin Negative Negative Urine Urobilinogen Normal Negative mg/dL Urine Leukocyte Esterase Negative Negative /uL Urine RBC <1 0 - 3 /hpf Urine WBC 1 0 - 3 /hpf Urine Squamous Epithelial Cells Few <5 /hpf Urine Bacteria None seen None Seen /hpf Urine Glucose Normal Normal mg/dL Urine Opiates Screen Neg NEGATIVE Urine Fentanyl Screen Neg NEGATIVE Urine Barbiturates Screen Neg NEGATIVE Urine Phencyclidine Screen Neg NEGATIVE Urine Amphetamines Screen Neg NEGATIVE Urine Benzodiazepines Screen Neg NEGATIVE Urine Cocaine Screen Neg NEGATIVE Urine Cannabinoids Screen Neg NEGATIVE Test 03/30/24 07:30 03/29/24 08:06 03/28/24 17:08 03/28/24 16:12 Range/Units Erythrocyte Sedimentation Rate 58 H 0-20 mm/hr Hemoglobin A1c 6.1 H <5.7 % A1C Total Bilirubin 0.4 0.2-1.0 mg/dL Aspartate Amino Transferase (AST) 34 13-40 U/L Alanine Aminotransferase (ALT) 117 H 7-40 U/L Alkaline Phosphatase 80 46-116 U/L Total Protein 5.4 L 5.7-8.2 g/dL Albumin 2.8 L 3.2-4.8 g/dL Troponin I High Sensitivity < 3 L </=54 ng/L B-Type Natriuretic Peptide 22.99 0-100 pg/mL Microbiology Date/Time Source Procedure Growth Status 03/29/24 13:07 Blood Blood Culture - Preliminary NO GROWTH AFTER 48 HOURS OF INCUBATION. 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 (11) Fever, unspecified (12) Hypokalemia (13) Dizziness (14) Anemia (15) Syncope (16) Head injury (17) Hypotension (18) MDS (myelodysplastic syndrome) (19) History of prostate cancer (20) Near syncope (21) Severe anemia (22) Symptomatic anemia (23) Postoperative pain (24) Cellulitis of right lower extremity Plan/Recommendation ASSESSMENT: Patient is a year old seen on the floor for a worsening abscess PLAN: - The patients chart was reviewed, clinical findings were discussed with the patient, the etiologies of the conditions were discussed in detail, and a treatment plan was agreed to at this time, with both oral and written instructions provided. - reviewed advanced imaging - discussed plan is to perform an incision and drainage - patient will be NPO at midnight - take him to the OR today - patient will return to the OR at a future date for closure - we will get cultures in the OR - can weightbear as tolerated in postoperative shoe All questions were answered and concerns addressed to the patient's satisfaction. The patient was given the phone number to the clinic and was told how to make contact with the clinic should any concerns or questions arise. Patient understands that if any questions or concerns arise prior to the next appointment, we should be contacted immediately. FOLLOW-UP: Continue to follow while inpatient Plan discussed with: Patient Date of Service: Apr 01, 2024 Billing Provider: SERGEY MULLINS DPM Common Visit Codes: [id number] INP/OBS CARE (HIGH) SERGEY MULLINS DPM Apr 01, 2024 11:42
[2024-04-01 12:00] VITALS: BP 88/54; PULSE 67; RESP 18; TEMP 98.8; O2SAT 99
[2024-04-01] MEDS ORDERED: fentaNYL CITRATE 100 MCG/2 ML VL ONE (14:26)
[2024-04-01] MEDS ORDERED: MIDAZOLAM HCL 2MG/2ML 2ml VIAL (1mg/ml) ONE (14:26)
[2024-04-01] MEDS ORDERED: DexAMETHasone SOD PHOS 10MG/1ML VIAL INJ ONE (14:57)
[2024-04-01] MEDS ORDERED: PROPOFOL 10 MG/ML 20 ML IV ONE (15:19)
[2024-04-01] MEDS: HYDROmorphone HCL 2 MG/ML VL/or syr IV PRN (15:28)
[2024-04-01 16:00] VITALS: BP 93/54; PULSE 87; RESP 18; TEMP 99.2; O2SAT 95
--- NOTE | 2024-04-01 16:25 | DVHOP2 ---
Operative Report - 2 Report Details Date: 04/01/24 Preop Diagnosis: 1. Right leg abscess 2. Right leg necrotizing fasciitis 3. Right leg cellulitis 4. Right leg pain Postop Diagnosis: Same as above Surgeon: Sergey Mullins MD Anesthesiologist: See anesthesia Anesthesia: Mac Consent: The patient was informed of the risks and benefits of the procedure. These include but are not limited to complications of anesthesia, postoperative infection, incomplete relief of symptoms, recurrence of symptoms, damage to blood vessels, nerves and tendons, deep venous thrombosis, pulmonary embolism and possible need for repeat surgery in the future. Complications: None Estimated Blood Loss: Minimal Fluids: See anesthesia Findings: Consistent with the diagnosis Indications for Surgery: Worsening right leg abscess Name of Procedure Performed 1. Right leg I&D to bone (84218) Procedure Details Procedure Details: PRE-PROCEDURE INFORMATION: In the pre-op holding area, the extremity to be operated on was clearly marked and the patient verified correct laterality of the marking. The patient was transferred to the OR table and placed in a supine position. A timeout was performed in which identification of the correct patient, procedure, location, and materials was done. The right foot and leg were prepped and draped in normal sterile fashion. DESCRIPTION OF PROCEDURE: Attention was directed to the right lateral leg where area of fluctuance was noted. An incision was made over this area and was deepened through blunt dissection. The incision was deepened to the level of abscess and bone. Care was taken to the dissection to avoid any neurovascular and tendinous structures. The incision was deepened to the bone, and the abscess appeared to be purulent fluid consistent with pus. The cortices of the bone was then removed with Alan an all necrotic tissue. After the abscess was drained, the area was irrigated with 3 L normal saline using cysto tubing. Deep cultures were then obtained from the wound. The area was then inspected and any areas of tracking, especially along the tendons were also drained. The wound was packed with Betadine-soaked gauze and we will need to be closed at a later date. A dry sterile dressing was placed on the surgical extremity. POSTOPERATIVE INFORMATION: The patient tolerated the above noted procedure and anesthesia well and was transferred to the PACU with vital signs stable, and vascular status intact with capillary refill intact to all digits. Cultures were taken the patient will return to the floor to continue IV antibiotics. Patient will return to the OR on Monday and possibly Monday for another washout to ensure that all the infection has been cleaned out. Condition Good Disposition Still a Patient SERGEY MULLINS DPM Apr 01, 2024 16:25
[2024-04-01] MEDS: BUPIVACAINE 0.5% P/F INJ 10 ML VIAL ONE (18:04)
[2024-04-01 20:00] VITALS: PULSE 79; RESP 18; O2SAT 99
[2024-04-01 21:00] VITALS: BP 77/58; PULSE 72; RESP 17; TEMP 98.6; O2SAT 99
--- NOTE | 2024-04-01 22:39 | DVHPN2 ---
Subjective The patient is seen and examined at bedside. Complain of pain in the foot area Reviewed: Care Plan, H&P, Labs, Medications, Previous Orders, Radiology Changes from previous H/P or p: No Changes Objective Vitals Vital Signs Date Time Temp Pulse Resp B/P (MAP) Pulse Ox O2 Delivery O2 Flow Rate FiO2 04/01/24 16:00 99.2 87 18 93/54 (67) 95 99.2 04/01/24 15:10 Room Air 04/01/24 08:00 0 21 Intake/Output Intake and Output 04/01/24 07:00 Intake Total 1310 ml Output Total 1200 ml Balance 110 ml Intake Oral 960 ml IV Total 350 ml Output Urine Total 1200 ml General Appearance: Alert, Oriented X3, Cooperative, No acute distress HEENT: Atraumatic, PERRLA, EOMI, Mucous membr. moist/pink Lungs: Clear to auscultation, Normal air movement Cardiovascular: Regular rate, Normal S1, Normal S2, No murmurs, Gallops, Rubs Abdomen: Normal bowel sounds, Soft, No tenderness Neuro: Cranial nerves 3-12 NL Psych/Mental Status: Mental status NL Medications Current Medications Medications Dose Ordered Sig/Fabricio Route Start Time Stop Time Status Last Admin Dose Admin Acetaminophen/ Hydrocodone Bitart 1 tab Q6HP PRN PO 03/29/24 03:30 04/01/24 09:19 1 TAB Melatonin 5 mg HS PO 03/29/24 22:00 04/01/24 21:05 5 MG Vancomycin HCl 0 ml @ 0 mls/hr UD IV 03/29/24 04:00 Gabapentin 400 mg BID PO 03/29/24 10:00 04/01/24 21:05 400 MG Ondansetron HCl 4 mg Q6HPRN PRN IV 03/29/24 04:00 Famotidine 20 mg DAILY IV 03/29/24 10:00 04/01/24 09:12 20 MG Midodrine 5 mg BID PO 03/30/24 22:00 04/01/24 21:05 5 MG Enteral Nutritional Formula 28.8 gm BID PO 03/30/24 22:00 04/01/24 10:00 28.8 GM Morphine Sulfate 1 mg Q6HP PRN IV 03/31/24 11:15 03/31/24 18:20 1 MG Cefepime HCl 50 ml @ 12.5 mls/hr Q8H IV 04/01/24 03:00 04/01/24 11:00 12.5 MLS/HR Vancomycin HCl 250 ml @ 200 mls/hr Q12H IV 04/01/24 11:00 04/01/24 11:00 200 MLS/HR Laboratory Results Laboratory Tests 04/01/24 07:00 Chemistry Test 04/01/24 07:00 Calcium Level 8.8 mg/dL (8.7-10.4) Coagulation Test 04/01/24 07:00 Prothrombin Time 11.6 sec (9.3-11.8) Prothrombin Time INR 1.10 (0.9-1.15) Activated Partial Thromboplast Time 27.8 SEC (24.5-34.5) Urinalysis Test 03/30/24 16:00 Urine Color Light-yellow (Yellow) Urine Clarity Clear (Clear) Urine pH 6.0 (5.0-9.0) Urine Specific [place] 1.014 (1.001-1.035) Urine Protein Negative (Negative) Urine Ketones Negative (Negative) Urine Blood Negative /uL (Negative) Urine Nitrite Negative (Negative) Urine Bilirubin Negative (Negative) Urine Urobilinogen Normal mg/dL (Negative) Urine Leukocyte Esterase Negative /uL (Negative) Urine RBC <1 /hpf (0 - 3) Urine WBC 1 /hpf (0 - 3) Urine Squamous Epithelial Cells Few /hpf (<5) Urine Bacteria None seen /hpf (None Seen) Urine Glucose Normal mg/dL (Normal) Microbiology Microbiology Date/Time Source Procedure Growth Status 03/29/24 13:07 Blood Blood Culture - Preliminary NO GROWTH AFTER 72 HOURS OF INCUBATION. Resulted 03/29/24 10:45 Leg Right Gram Stain - Final Resulted 03/29/24 10:45 Leg Right Wound Culture - Preliminary Resulted Labs and/or images reviewed: Labs reviewed by me Assessment/Plan Assessment/Plan #Sepsis likely due to cellulitis status post Right Achilles abscess incision and drainage #Lactic acidosis, resolved # no severe sepsis criteria # Q sofa 1 point -continue monitoring Q sofa/ -transferred to telemetry -hypotension, map 63 -normal saline 500 mL bolus -continue IV antibiotics -podiatry consult -wound care consult -CRP elevated -ESR elevated -Lactic acid - midodrine iv #History of myelodysplastic syndrome -normocytic normochromic anemia -status post transfusion -current hemoglobin 8.5 #Asymptomatic Thrombocytopenia -Lovenox held. #Peripheral neuropathy -continue on gabapentin #Schizophrenia -on risperidone and mirtazapine at home, held due to hypotension status. Waiting for kosher dietary service supervisor to see the patient. This medical document was created using an electronic medical record system with [employer] direct computerized dictation system. Although this document has been carefully reviewed, there may still be some phonetic and typographical errors. These areas are purely typographical due to imperfections of the software programs, and do not reflect any compromise in the patient's medical care. Plan discussed with: Patient Date of Service: Apr 01, 2024 Billing Provider: CHEVY CAMACHO MD Common Visit Codes: [id number] INP/OBS CARE(HIGH) CHEVY CAMACHO MD Apr 01, 2024 22:39
[2024-04-02] VITALS (8 sets, daily range): BP systolic 84–93; BP diastolic 47–57; PULSE 60–77; RESP 17–20; TEMP 97.6–98.3; O2SAT 95–100
[2024-04-02 07:28] LABS: Anion Gap 6 (5-15); Carbon Dioxide 25 mmol/L (20-31); Chloride 106 mmol/L (98-107); Potassium 4.5 mmol/L (3.5-5.1); Sodium 137 mmol/L (136-145)
[2024-04-02 07:29] LABS: Calcium 9.1 mg/dL (8.7-10.4)
[2024-04-02 07:34] LABS: BUN/Creatinine Ratio 18.8 (10.0-20.0); Blood Urea Nitrogen 12 mg/dL (9-23); Glucose 133 mg/dL (74-106)
--- NOTE | 2024-04-02 13:37 | DVHPN2 ---
Subjective Patient is a 68-year-old male with a past medical history are described below came to the ED with a chief complaint of right lower extremity swelling and pain status post I&D. Patient was recently discharged from the hospital after he was admitted for right ankle cellulitis with right Achillis abscess, right ankle necrotizing fasciitis status post I&D X 2 and was discharged home on ciprofloxacin. Patient reports that since he went home the swelling in his right lower extremity has been increasing and worsening pain which has not been controlled with his pain medications following which she came to the ED for further evaluation. Patient denied any other complaints of shortness of breath, dizziness, chest pain, fever, chills Reviewed: Care Plan, H&P, Labs, Medications, Previous Orders, Radiology Changes from previous H/P or p: No Changes Objective Vitals Vital Signs Date Time Temp Pulse Resp B/P (MAP) Pulse Ox O2 Delivery O2 Flow Rate FiO2 04/02/24 13:00 97.6 60 17 85/53 (64) 99 97.6 04/02/24 08:00 Room Air* 0 21 Intake/Output Intake and Output 04/02/24 07:00 Intake Total 495 ml Output Total 1200 ml Balance -705 ml Intake Oral 470 ml IV Total 25 ml Output Urine Total 1200 ml # Voids 3 Exam DERMATOLOGIC EXAM: - Skin is dry and cool to the touch dry bilaterally. - Nails 1-5 of the bilateral foot are thickened, discolored, dystrophic, and tender to palpate with subungual debris - Hair loss noted to bilateral feet - fluctuance right lateral leg VASCULAR EXAM: - DP and PT pulses are palpable bilaterally. - BAG CHECKER is brisk to all digits. - Feet are cool to touch compared to lower legs bilaterally. NEUROLOGIC EXAM: - Normal light touch sensation to the superficial peroneal, deep peroneal, sural, saphenous, and tibial nerve branches. - Protective sensation is diminished as tested with a 5.07 10g [place]-Renae bilaterally. MUSCULOSKELETAL EXAM: - No gross deformities - Muscle strength is 5/5 and active motion is pain-free and symmetrical bilaterally - No pain or crepitation with passive range of motion bilaterally to all major pedal joints General Appearance: Alert, Oriented X3, Cooperative, No acute distress HEENT: Atraumatic, PERRLA, EOMI, Mucous membr. moist/pink Lungs: Clear to auscultation, Normal air movement Cardiovascular: Regular rate, Normal S1, Normal S2, No murmurs, Gallops, Rubs Abdomen: Normal bowel sounds, Soft, No tenderness Neuro: Cranial nerves 3-12 NL Psych/Mental Status: Mental status NL Medications Current Medications Medications Dose Ordered Sig/Fabricio Route Start Time Stop Time Status Last Admin Dose Admin Acetaminophen/ Hydrocodone Bitart 1 tab Q6HP PRN PO 03/29/24 03:30 04/02/24 09:20 1 TAB Melatonin 5 mg HS PO 03/29/24 22:00 04/01/24 21:05 5 MG Vancomycin HCl 0 ml @ 0 mls/hr UD IV 03/29/24 04:00 Gabapentin 400 mg BID PO 03/29/24 10:00 04/02/24 09:12 400 MG Ondansetron HCl 4 mg Q6HPRN PRN IV 03/29/24 04:00 Famotidine 20 mg DAILY IV 03/29/24 10:00 04/02/24 09:12 20 MG Midodrine 5 mg BID PO 03/30/24 22:00 04/02/24 09:12 5 MG Enteral Nutritional Formula 28.8 gm BID PO 03/30/24 22:00 04/02/24 09:20 28.8 GM Morphine Sulfate 1 mg Q6HP PRN IV 03/31/24 11:15 03/31/24 18:20 1 MG Cefepime HCl 50 ml @ 12.5 mls/hr Q8H IV 04/01/24 03:00 04/02/24 11:16 12.5 MLS/HR Vancomycin HCl 250 ml @ 200 mls/hr Q12H IV 04/01/24 11:00 04/02/24 10:03 200 MLS/HR Laboratory Results Laboratory Tests 04/01/24 07:00 04/02/24 05:22 Chemistry Test 04/02/24 05:22 Calcium Level 9.1 mg/dL (8.7-10.4) Urinalysis Test 03/30/24 16:00 Urine Color Light-yellow (Yellow) Urine Clarity Clear (Clear) Urine pH 6.0 (5.0-9.0) Urine Specific [place] 1.014 (1.001-1.035) Urine Protein Negative (Negative) Urine Ketones Negative (Negative) Urine Blood Negative /uL (Negative) Urine Nitrite Negative (Negative) Urine Bilirubin Negative (Negative) Urine Urobilinogen Normal mg/dL (Negative) Urine Leukocyte Esterase Negative /uL (Negative) Urine RBC <1 /hpf (0 - 3) Urine WBC 1 /hpf (0 - 3) Urine Squamous Epithelial Cells Few /hpf (<5) Urine Bacteria None seen /hpf (None Seen) Urine Glucose Normal mg/dL (Normal) Microbiology Microbiology Date/Time Source Procedure Growth Status 04/01/24 16:13 Foot Right Gram Stain - Final Resulted 04/01/24 16:13 Foot Right Anaerobic Culture Pending Resulted 04/01/24 16:13 Foot Right Aerobic Culture - Preliminary Resulted 03/29/24 13:07 Blood Blood Culture - Preliminary NO GROWTH AFTER 72 HOURS OF INCUBATION. Resulted Assessment/Plan Assessment/Plan ASSESSMENT: Patient is a year old seen on the floor for 1 day s/p from a right ankle I&D PLAN: - The patients chart was reviewed, clinical findings were discussed with the patient, the etiologies of the conditions were discussed in detail, and a treatment plan was agreed to at this time, with both oral and written instructions provided. - reviewed advanced imaging - discussed plan is to perform another incision and drainage - patient will be NPO at midnight - take him to the OR tomorrow - patient will require multiple I&D - can weightbear as tolerated in postoperative shoe All questions were answered and concerns addressed to the patient's satisfaction. The patient was given the phone number to the clinic and was told how to make contact with the clinic should any concerns or questions arise. Patient understands that if any questions or concerns arise prior to the next appointment, we should be contacted immediately. FOLLOW-UP: Continue to follow while inpatient Plan discussed with: Patient My Orders Orders - SERGEY MULLINS DPM Procedure Category Date Status Time Anaerobic Culture REBECA 04/01/24 In Process 16:13 Gram Stain REBECA 04/01/24 In Process 16:13 Routine Bacterial REBECA 04/01/24 In Process Culture 16:13 Electrocardigram EKG 04/02/24 Logged 10:57 Problem List: (1) Postoperative pain (2) Cellulitis of right lower extremity (3) Hypokalemia (4) Fever (5) Dizziness (6) Anemia (7) Generalized weakness (8) Syncope (9) Thrombocytopenia (10) Weakness (11) Sepsis (12) Head injury (13) Hypotension (14) MDS (myelodysplastic syndrome) (15) Critical illness myopathy (16) Fever, unspecified (17) History of prostate cancer (18) Near syncope (19) Severe sepsis with septic shock (20) Acute renal injury (21) Sepsis, unspecified organism (22) Swelling of right lower extremity (23) Severe anemia (24) Symptomatic anemia Date of Service: Apr 02, 2024 Billing Provider: SERGEY MULLINS DPM Common Visit Codes: [id number] INP/OBS CARE(MOD) SERGEY MULLINS DPM Apr 02, 2024 13:37
[2024-04-02] MEDS ORDERED: PHENYLEPHRINE HCL 10 MG/ML VL IV ONE (14:01)
--- NOTE | 2024-04-02 14:47 | DVHPN2 ---
Subjective Seen and examined at bedside, cont Abx, for I&D tomorrow. Give platelets tomorrow AM. Reviewed: Care Plan, H&P, Labs, Medications, Previous Orders, Radiology Changes from previous H/P or p: No Changes Objective Vitals Vital Signs Date Time Temp Pulse Resp B/P (MAP) Pulse Ox O2 Delivery O2 Flow Rate FiO2 04/02/24 13:00 97.6 60 17 85/53 (64) 99 97.6 04/02/24 08:00 Room Air* 0 21 Intake/Output Intake and Output 04/02/24 06:59 Intake Total 495 ml Output Total 1200 ml Balance -705 ml Intake Oral 470 ml IV Total 25 ml Output Urine Total 1200 ml # Voids 3 General Appearance: Alert, Oriented X3, Cooperative, No acute distress HEENT: Atraumatic, PERRLA, EOMI, Mucous membr. moist/pink Lungs: Clear to auscultation, Normal air movement Cardiovascular: Regular rate, Normal S1, Normal S2, No murmurs, Gallops, Rubs Abdomen: Normal bowel sounds, Soft, No tenderness Extremities: Other (Right Foot Dressing) Neuro: Cranial nerves 3-12 NL Psych/Mental Status: Mental status NL Medications Current Medications Medications Dose Ordered Sig/Fabricio Route Start Time Stop Time Status Last Admin Dose Admin Acetaminophen/ Hydrocodone Bitart 1 tab Q6HP PRN PO 03/29/24 03:30 04/02/24 09:20 1 TAB Melatonin 5 mg HS PO 03/29/24 22:00 04/01/24 21:05 5 MG Vancomycin HCl 0 ml @ 0 mls/hr UD IV 03/29/24 04:00 Gabapentin 400 mg BID PO 03/29/24 10:00 04/02/24 09:12 400 MG Ondansetron HCl 4 mg Q6HPRN PRN IV 03/29/24 04:00 Famotidine 20 mg DAILY IV 03/29/24 10:00 04/02/24 09:12 20 MG Midodrine 5 mg BID PO 03/30/24 22:00 04/02/24 09:12 5 MG Enteral Nutritional Formula 28.8 gm BID PO 03/30/24 22:00 04/02/24 09:20 28.8 GM Morphine Sulfate 1 mg Q6HP PRN IV 03/31/24 11:15 03/31/24 18:20 1 MG Cefepime HCl 50 ml @ 12.5 mls/hr Q8H IV 04/01/24 03:00 04/02/24 11:16 12.5 MLS/HR Vancomycin HCl 250 ml @ 200 mls/hr Q12H IV 04/01/24 11:00 04/02/24 10:03 200 MLS/HR Laboratory Results Laboratory Tests 04/01/24 07:00 04/02/24 05:22 Chemistry Test 04/02/24 05:22 Calcium Level 9.1 mg/dL (8.7-10.4) Urinalysis Test 03/30/24 16:00 Urine Color Light-yellow (Yellow) Urine Clarity Clear (Clear) Urine pH 6.0 (5.0-9.0) Urine Specific [place] 1.014 (1.001-1.035) Urine Protein Negative (Negative) Urine Ketones Negative (Negative) Urine Blood Negative /uL (Negative) Urine Nitrite Negative (Negative) Urine Bilirubin Negative (Negative) Urine Urobilinogen Normal mg/dL (Negative) Urine Leukocyte Esterase Negative /uL (Negative) Urine RBC <1 /hpf (0 - 3) Urine WBC 1 /hpf (0 - 3) Urine Squamous Epithelial Cells Few /hpf (<5) Urine Bacteria None seen /hpf (None Seen) Urine Glucose Normal mg/dL (Normal) Microbiology Microbiology Date/Time Source Procedure Growth Status 04/01/24 16:13 Foot Right Gram Stain - Final Resulted 04/01/24 16:13 Foot Right Anaerobic Culture - Preliminary Resulted 04/01/24 16:13 Foot Right Aerobic Culture - Preliminary Resulted 03/29/24 13:07 Blood Blood Culture - Preliminary NO GROWTH AFTER 72 HOURS OF INCUBATION. Resulted Assessment/Plan Assessment/Plan #Sepsis due to Cellulitis status post Right Achilles abscess incision and drainage- repeat I&D tomorrow MONDAY # Q sofa 1 point -continue monitoring Q sofa/ -transferred to telemetry -hypotension, map 63 -normal saline 500 mL bolus -continue IV antibiotics -podiatry consult -wound care consult -CRP elevated -ESR elevated -Lactic acid - midodrine #History of myelodysplastic syndrome -normocytic normochromic anemia -status post transfusion -current hemoglobin 8.5 #Asymptomatic Thrombocytopenia -Lovenox held. #Peripheral neuropathy -continue on gabapentin #Schizophrenia -on risperidone and mirtazapine at home, held due to hypotension status. Plan discussed with: Patient My Orders Orders - VENKAT SMILEY MD Procedure Category Date Status Time Discontinue Tele KATIA 04/02/24 In Process 14:33 Complete Blood Count LAB 04/03/24 Verified 04:00 Communication Order ORDERS 04/02/24 Transmitted 14:37 Date of Service: Apr 02, 2024 Billing Provider: VENKAT SMILEY MD Common Visit Codes: [id number] INP/OBS CARE(HIGH) VENKAT SMILEY MD Apr 02, 2024 14:47
[2024-04-02] MEDS: MIDODRINE HCL 10 MG TAB PO SCH (22:55)
[2024-04-03] VITALS (15 sets, daily range): BP systolic 83–131; BP diastolic 44–109; PULSE 62–102; RESP 13–19; TEMP 97.8–98.8; O2SAT 92–99
--- NOTE | 2024-04-03 08:35 | ECG ---
[facility] Test Date: 2024-04-01 Test Time: 06:00:30 Pat Name: MEME ALONSO Department: Room: 0293 A Gender: M User Acceptance Tester: albert : 1955 Requested By: SERGEY MULLINS Order Number: [id number] Reading MD: Barbra Gilmore Measurements Intervals [place] Rate: 75 P: 28 GA: 136 QRS: 29 QRSD: 109 T: 32 QT: 380 QTc: 425 Interpretive Statements Sinus rhythm Electronically Signed On 04-03-2024 8:47:10 PST by Barbra Gilmore Please click the below link to view image of tracing.
--- NOTE | 2024-04-03 09:10 | DVHPN2 ---
Subjective Patient is a 68-year-old male with a past medical history are described below came to the ED with a chief complaint of right lower extremity swelling and pain status post I&D. Patient was recently discharged from the hospital after he was admitted for right ankle cellulitis with right Achillis abscess, right ankle necrotizing fasciitis status post I&D X 2 and was discharged home on ciprofloxacin. Patient reports that since he went home the swelling in his right lower extremity has been increasing and worsening pain which has not been controlled with his pain medications following which she came to the ED for further evaluation. Patient denied any other complaints of shortness of breath, dizziness, chest pain, fever, chills Reviewed: Care Plan, H&P, Labs, Medications, Previous Orders, Radiology Changes from previous H/P or p: No Changes Objective Vitals Vital Signs Date Time Temp Pulse Resp B/P (MAP) Pulse Ox O2 Delivery O2 Flow Rate FiO2 04/03/24 08:38 98.8 76 19 131/109 (116) 98 98.8 04/03/24 08:00 Room Air* 0 21 Intake/Output Intake and Output 04/03/24 07:00 Intake Total 2160 ml Output Total 1700 ml Balance 460 ml Intake Oral 1460 ml IV Total 700 ml Output Urine Total 1700 ml Exam DERMATOLOGIC EXAM: - Skin is dry and cool to the touch dry bilaterally. - Nails 1-5 of the bilateral foot are thickened, discolored, dystrophic, and tender to palpate with subungual debris - Hair loss noted to bilateral feet - fluctuance right lateral leg VASCULAR EXAM: - DP and PT pulses are palpable bilaterally. - [employer] is brisk to all digits. - Feet are cool to touch compared to lower legs bilaterally. NEUROLOGIC EXAM: - Normal light touch sensation to the superficial peroneal, deep peroneal, sural, saphenous, and tibial nerve branches. - Protective sensation is diminished as tested with a 5.07 10g [place] bilaterally. MUSCULOSKELETAL EXAM: - No gross deformities - Muscle strength is 5/5 and active motion is pain-free and symmetrical bilaterally - No pain or crepitation with passive range of motion bilaterally to all major pedal joints General Appearance: Alert, Oriented X3, Cooperative, No acute distress HEENT: Atraumatic, PERRLA, EOMI, Mucous membr. moist/pink Lungs: Clear to auscultation, Normal air movement Cardiovascular: Regular rate, Normal S1, Normal S2, No murmurs, Gallops, Rubs Abdomen: Normal bowel sounds, Soft, No tenderness Extremities: Other (Right Foot Dressing) Neuro: Cranial nerves 3-12 NL Psych/Mental Status: Mental status NL Medications Current Medications Medications Dose Ordered Sig/Fabricio Route Start Time Stop Time Status Last Admin Dose Admin Acetaminophen/ Hydrocodone Bitart 1 tab Q6HP PRN PO 03/29/24 03:30 04/02/24 18:35 1 TAB Melatonin 5 mg HS PO 03/29/24 22:00 04/02/24 22:54 5 MG Vancomycin HCl 0 ml @ 0 mls/hr UD IV 03/29/24 04:00 Gabapentin 400 mg BID PO 03/29/24 10:00 04/02/24 22:55 400 MG Ondansetron HCl 4 mg Q6HPRN PRN IV 03/29/24 04:00 Famotidine 20 mg DAILY IV 03/29/24 10:00 04/03/24 08:56 20 MG Enteral Nutritional Formula 28.8 gm BID PO 03/30/24 22:00 04/02/24 09:20 28.8 GM Morphine Sulfate 1 mg Q6HP PRN IV 03/31/24 11:15 03/31/24 18:20 1 MG Cefepime HCl 50 ml @ 12.5 mls/hr Q8H IV 04/01/24 03:00 04/03/24 02:12 12.5 MLS/HR Vancomycin HCl 250 ml @ 200 mls/hr Q12H IV 04/01/24 11:00 04/02/24 23:02 200 MLS/HR Midodrine 5 mg TID PO 04/02/24 22:00 04/03/24 05:14 5 MG Laboratory Results Laboratory Tests 04/01/24 07:00 04/02/24 05:22 Urinalysis Test 03/30/24 16:00 Urine Color Light-yellow (Yellow) Urine Clarity Clear (Clear) Urine pH 6.0 (5.0-9.0) Urine Specific [place] 1.014 (1.001-1.035) Urine Protein Negative (Negative) Urine Ketones Negative (Negative) Urine Blood Negative /uL (Negative) Urine Nitrite Negative (Negative) Urine Bilirubin Negative (Negative) Urine Urobilinogen Normal mg/dL (Negative) Urine Leukocyte Esterase Negative /uL (Negative) Urine RBC <1 /hpf (0 - 3) Urine WBC 1 /hpf (0 - 3) Urine Squamous Epithelial Cells Few /hpf (<5) Urine Bacteria None seen /hpf (None Seen) Urine Glucose Normal mg/dL (Normal) Microbiology Microbiology Date/Time Source Procedure Growth Status 04/01/24 16:13 Foot Right Gram Stain - Final Resulted 04/01/24 16:13 Foot Right Anaerobic Culture - Preliminary Resulted 04/01/24 16:13 Foot Right Aerobic Culture - Preliminary Resulted 03/29/24 13:07 Blood Blood Culture - Preliminary NO GROWTH AFTER 72 HOURS OF INCUBATION. Resulted Assessment/Plan Assessment/Plan ASSESSMENT: Patient is a year old seen on the floor for 2 day s/p from a right ankle I&D PLAN: - The patients chart was reviewed, clinical findings were discussed with the patient, the etiologies of the conditions were discussed in detail, and a treatment plan was agreed to at this time, with both oral and written instructions provided. - reviewed advanced imaging - discussed plan is to perform another incision and drainage - patient will be NPO at midnight - take him to the OR today - patient will require multiple I&D - can weightbear as tolerated in postoperative shoe All questions were answered and concerns addressed to the patient's satisfaction. The patient was given the phone number to the clinic and was told how to make contact with the clinic should any concerns or questions arise. Patient understands that if any questions or concerns arise prior to the next appointment, we should be contacted immediately. 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
[2024-04-03] MEDS ORDERED: MIDAZOLAM HCL 2MG/2ML 2ml VIAL (1mg/ml) ONE (11:02)
[2024-04-03] MEDS ORDERED: fentaNYL CITRATE 100 MCG/2 ML VL ONE (11:02)
[2024-04-03] MEDS: BUPIVACAINE 0.5% P/F INJ 10 ML VIAL ONE (11:21)
[2024-04-03] MEDS: VANCOMYCIN HCL 1000 MG VL ONE (11:22)
--- NOTE | 2024-04-03 11:26 | DVHOP2 ---
Operative Report - 2 Report Details Date: 04/03/24 Preop Diagnosis: 1. Right leg abscess 2. Right leg necrotizing fasciitis 3. Right leg cellulitis 4. Right leg pain Postop Diagnosis: Same as above Surgeon: Sergey Mullins MD Anesthesiologist: See anesthesia Anesthesia: Mac Consent: The patient was informed of the risks and benefits of the procedure. These include but are not limited to complications of anesthesia, postoperative infection, incomplete relief of symptoms, recurrence of symptoms, damage to blood vessels, nerves and tendons, deep venous thrombosis, pulmonary embolism and possible need for repeat surgery in the future. Complications: None Estimated Blood Loss: Minimal Fluids: See anesthesia Findings: Consistent with diagnosis Indications for Surgery: Worsening right leg ulcer Name of Procedure Performed 1. Right leg I&D to bone (19675) Procedure Details Procedure Details: PRE-PROCEDURE INFORMATION: In the pre-op holding area, the extremity to be operated on was clearly marked and the patient verified correct laterality of the marking. The patient was transferred to the OR table and placed in a supine position. A timeout was performed in which identification of the correct patient, procedure, location, and materials was done. The right foot and leg were prepped and draped in normal sterile fashion. DESCRIPTION OF PROCEDURE: Attention was directed to the right lateral leg where previous incision was made area of fluctuance was noted. An incision was made over this area and was deepened through blunt dissection. The incision was deepened to the level of abscess and bone. Care was taken to the dissection to avoid any neurovascular and tendinous structures. The incision was deepened to the bone, and the abscess appeared to be purulent fluid consistent with pus. The cortices of the bone was then removed with Alan an all necrotic tissue. After the abscess was drained, the area was irrigated with 3 L normal saline using cysto tubing. The area was then inspected and any areas of tracking, especially along the tendons were also drained. The wound was packed with Betadine-soaked gauze and we will need to be closed at a later date. A dry sterile dressing was placed on the surgical extremity. POSTOPERATIVE INFORMATION: The patient tolerated the above noted procedure and anesthesia well and was transferred to the PACU with vital signs stable, and vascular status intact with capillary refill intact to all digits. Patient will return to the OR on Monday for another incision and drainage and then we will hopefully be able to close it. Condition Good Disposition Still a Patient SERGEY MULLINS DPM Apr 03, 2024 11:26
[2024-04-03] MEDS: HYDROmorphone HCL 2 MG/ML VL/or syr IV PRN (11:41)
[2024-04-03 15:18] LABS: Basophils # (auto) 0.1 10 ^3/uL (0-0.2); Eosinophils # (auto) 0.4 10 ^3/uL (0-0.8); Eosinophils % (auto) 6.7 % (0.0-7.0); Hemoglobin 7.7 g/dL (13.5-17.5); Neutrophils # (auto) 4.9 10 ^3/uL (1.6-8.6); White Blood Cell 6.6 10^3/uL (4.4-10.8)
[2024-04-03 15:23] LABS: Basophils % (auto) 1.1 % (0.0-2.0); Hematocrit 22.7 % (41.0-53.0); Lymphocytes # (auto) 0.8 10 ^3/uL (0.4-5.4); Lymphocytes % (auto) 12.4 % (10.0-50.0); Mean Corpuscular Hemoglobin 29.6 pg (28.0-32.0); Mean Corpuscular Hgb Conc. 33.7 g/dL (32.0-36.0); Mean Corpuscular Volume 87.8 fL (80.0-100.0); Monocytes # (auto) 0.3 10 ^3/uL (0-1.3); Monocytes % (auto) 4.4 % (0.0-12.0); Neutrophils % (auto) 75.4 % (37.0-80.0); Platelet Count (auto) 72 10^3/uL (140-450); Red Blood Cells 2.59 10^6/uL (4.5-5.90); Red Cell Distribution Width 14.5 % (11.8-14.3)
--- NOTE | 2024-04-03 16:48 | DVHPN2 ---
Subjective Seen and examined at bedside, cont Abx, s/p I&D today. Repeat I&D on Monday Reviewed: Care Plan, H&P, Labs, Medications, Previous Orders, Radiology Changes from previous H/P or p: No Changes Objective Vitals Vital Signs Date Time Temp Pulse Resp B/P (MAP) Pulse Ox O2 Delivery O2 Flow Rate FiO2 04/03/24 12:48 98.4 70 19 109/53 (71) 98 98.4 04/03/24 11:26 Room Air 04/03/24 08:00 0 21 Intake/Output Intake and Output 04/03/24 07:00 Intake Total 2160 ml Output Total 1700 ml Balance 460 ml Intake Oral 1460 ml IV Total 700 ml Output Urine Total 1700 ml General Appearance: Alert, Oriented X3, Cooperative, No acute distress HEENT: Atraumatic, PERRLA, EOMI, Mucous membr. moist/pink Lungs: Clear to auscultation, Normal air movement Cardiovascular: Regular rate, Normal S1, Normal S2, No murmurs, Gallops, Rubs Abdomen: Normal bowel sounds, Soft, No tenderness Extremities: Other (Right Foot Dressing) Neuro: Cranial nerves 3-12 NL Psych/Mental Status: Mental status NL Medications Current Medications Medications Dose Ordered Sig/Fabricio Route Start Time Stop Time Status Last Admin Dose Admin Acetaminophen/ Hydrocodone Bitart 1 tab Q6HP PRN PO 03/29/24 03:30 04/03/24 09:17 1 TAB Melatonin 5 mg HS PO 03/29/24 22:00 04/02/24 22:54 5 MG Vancomycin HCl 0 ml @ 0 mls/hr UD IV 03/29/24 04:00 Gabapentin 400 mg BID PO 03/29/24 10:00 04/03/24 09:17 400 MG Ondansetron HCl 4 mg Q6HPRN PRN IV 03/29/24 04:00 Famotidine 20 mg DAILY IV 03/29/24 10:00 04/03/24 08:56 20 MG Enteral Nutritional Formula 28.8 gm BID PO 03/30/24 22:00 04/03/24 13:11 28.8 GM Morphine Sulfate 1 mg Q6HP PRN IV 03/31/24 11:15 03/31/24 18:20 1 MG Vancomycin HCl 250 ml @ 200 mls/hr Q12H IV 04/01/24 11:00 04/02/24 23:02 200 MLS/HR Midodrine 5 mg TID PO 04/02/24 22:00 04/03/24 13:49 5 MG Cefepime HCl 50 ml @ 12.5 mls/hr Q8H IV 04/03/24 21:00 Laboratory Results Laboratory Tests 04/02/24 05:22 04/03/24 14:36 Urinalysis Test 03/30/24 16:00 Urine Color Light-yellow (Yellow) Urine Clarity Clear (Clear) Urine pH 6.0 (5.0-9.0) Urine Specific [place] 1.014 (1.001-1.035) Urine Protein Negative (Negative) Urine Ketones Negative (Negative) Urine Blood Negative /uL (Negative) Urine Nitrite Negative (Negative) Urine Bilirubin Negative (Negative) Urine Urobilinogen Normal mg/dL (Negative) Urine Leukocyte Esterase Negative /uL (Negative) Urine RBC <1 /hpf (0 - 3) Urine WBC 1 /hpf (0 - 3) Urine Squamous Epithelial Cells Few /hpf (<5) Urine Bacteria None seen /hpf (None Seen) Urine Glucose Normal mg/dL (Normal) Microbiology Microbiology Date/Time Source Procedure Growth Status 04/01/24 16:13 Foot Right Gram Stain - Final Resulted 04/01/24 16:13 Foot Right Anaerobic Culture - Preliminary Resulted 04/01/24 16:13 Foot Right Aerobic Culture - Preliminary Resulted 03/29/24 13:07 Blood Blood Culture - Final NO GROWTH AFTER 5 DAYS OF INCUBATION. Complete Assessment/Plan Assessment/Plan #Sepsis due to Cellulitis status post Right Achilles abscess incision and drainage- repeat I&D today #History of myelodysplastic syndrome -normocytic normochromic anemia #Asymptomatic Thrombocytopenia -Lovenox held. #Peripheral neuropathy -continue on gabapentin #Schizophrenia -on risperidone and mirtazapine at home, held due to hypotension status. Plan discussed with: Patient Date of Service: Apr 03, 2024 Billing Provider: VENKAT SMILEY MD Common Visit Codes: [id number] INP/OBS CARE(MOD) VENKAT SMILEY MD Apr 03, 2024 16:48
[2024-04-03] MEDS: CEFEPIME 1GM/ 50ML 50 ML IV SCH (21:33)
[2024-04-04] VITALS (8 sets, daily range): BP systolic 89–92; BP diastolic 50–55; PULSE 0–83; RESP 18–20; TEMP 97.7–99.3; O2SAT 94–99
--- NOTE | 2024-04-04 17:23 | DVHPN2 ---
Subjective Seen and examined at bedside, Repeat I&D on Monday Reviewed: Care Plan, H&P, Labs, Medications, Previous Orders, Radiology Changes from previous H/P or p: No Changes Objective Vitals Vital Signs Date Time Temp Pulse Resp B/P (MAP) Pulse Ox O2 Delivery O2 Flow Rate FiO2 04/04/24 17:00 98.5 75 20 90/55 (67) 99 98.5 04/04/24 08:00 Room Air* 0 21 Intake/Output Intake and Output 04/04/24 06:59 Intake Total 2154 ml Output Total 2315 ml Balance -161 ml Intake Oral 1140 ml IV Total 450 ml Blood Product 282 ml Other 282 ml Output Urine Total 2315 ml # Bowel Movements 1 General Appearance: Alert, Oriented X3, Cooperative, No acute distress HEENT: Atraumatic, PERRLA, EOMI, Mucous membr. moist/pink Lungs: Clear to auscultation, Normal air movement Cardiovascular: Regular rate, Normal S1, Normal S2, No murmurs, Gallops, Rubs Abdomen: Normal bowel sounds, Soft, No tenderness Extremities: Other (Right Foot Dressing) Neuro: Cranial nerves 3-12 NL Psych/Mental Status: Mental status NL Medications Current Medications Medications Dose Ordered Sig/Fabricio Route Start Time Stop Time Status Last Admin Dose Admin Acetaminophen/ Hydrocodone Bitart 1 tab Q6HP PRN PO 03/29/24 03:30 04/04/24 09:02 1 TAB Melatonin 5 mg HS PO 03/29/24 22:00 04/03/24 21:39 5 MG Vancomycin HCl 0 ml @ 0 mls/hr UD IV 03/29/24 04:00 Gabapentin 400 mg BID PO 03/29/24 10:00 04/04/24 08:59 400 MG Ondansetron HCl 4 mg Q6HPRN PRN IV 03/29/24 04:00 Famotidine 20 mg DAILY IV 03/29/24 10:00 04/04/24 08:59 20 MG Enteral Nutritional Formula 28.8 gm BID PO 03/30/24 22:00 04/03/24 21:43 28.8 GM Morphine Sulfate 1 mg Q6HP PRN IV 03/31/24 11:15 03/31/24 18:20 1 MG Vancomycin HCl 250 ml @ 200 mls/hr Q12H IV 04/01/24 11:00 04/04/24 12:31 200 MLS/HR Midodrine 5 mg TID PO 04/02/24 22:00 04/04/24 12:31 5 MG Cefepime HCl 50 ml @ 12.5 mls/hr Q8H IV 04/03/24 21:00 04/04/24 13:59 12.5 MLS/HR Laboratory Results Laboratory Tests 04/02/24 05:22 04/03/24 14:36 Urinalysis Test 03/30/24 16:00 Urine Color Light-yellow (Yellow) Urine Clarity Clear (Clear) Urine pH 6.0 (5.0-9.0) Urine Specific [place] 1.014 (1.001-1.035) Urine Protein Negative (Negative) Urine Ketones Negative (Negative) Urine Blood Negative /uL (Negative) Urine Nitrite Negative (Negative) Urine Bilirubin Negative (Negative) Urine Urobilinogen Normal mg/dL (Negative) Urine Leukocyte Esterase Negative /uL (Negative) Urine RBC <1 /hpf (0 - 3) Urine WBC 1 /hpf (0 - 3) Urine Squamous Epithelial Cells Few /hpf (<5) Urine Bacteria None seen /hpf (None Seen) Urine Glucose Normal mg/dL (Normal) Microbiology Microbiology Date/Time Source Procedure Growth Status 04/01/24 16:13 Foot Right Gram Stain - Final Resulted 04/01/24 16:13 Foot Right Anaerobic Culture - Preliminary Resulted 04/01/24 16:13 Foot Right Aerobic Culture - Preliminary Resulted 03/29/24 13:07 Blood Blood Culture - Final NO GROWTH AFTER 5 DAYS OF INCUBATION. Complete Assessment/Plan Assessment/Plan #Sepsis due to Cellulitis status post Right Achilles abscess incision and drainage- repeat I&D Monday #History of myelodysplastic syndrome -normocytic normochromic anemia #Asymptomatic Thrombocytopenia -Lovenox held. #Peripheral neuropathy -continue on gabapentin #Schizophrenia -on risperidone and mirtazapine at home, held due to hypotension status. Plan discussed with: Patient My Orders Orders - VENKAT SMILEY MD Procedure Category Date Status Time Basic Metabolic Panel LAB 04/05/24 Verified 04:00 Complete Blood Count LAB 04/05/24 Verified 04:00 Date of Service: Apr 04, 2024 Billing Provider: VENKAT SMILEY MD Common Visit Codes: [id number] INP/OBS CARE(MOD) VENKAT SMILEY MD Apr 04, 2024 17:23
[2024-04-05] VITALS (9 sets, daily range): BP systolic 90–132; BP diastolic 43–58; PULSE 60–82; RESP 16–20; TEMP 97.9–98.8; O2SAT 92–100
[2024-04-05 07:25] LABS: Platelet Count (auto) 61 10^3/uL (140-450)
[2024-04-05 07:28] LABS: Hematocrit 19.3 % (41.0-53.0); Mean Corpuscular Hemoglobin 29.8 pg (28.0-32.0); Mean Corpuscular Hgb Conc. 33.9 g/dL (32.0-36.0); Mean Corpuscular Volume 88.1 fL (80.0-100.0); Red Cell Distribution Width 14.4 % (11.8-14.3); White Blood Cell 7.6 10^3/uL (4.4-10.8)
[2024-04-05 07:34] LABS: Hemoglobin 6.6 g/dL (13.5-17.5)
[2024-04-05 07:36] LABS: Basophils % (manual) 0 (0.0-2.0); Blast Cells 0; Metamyelocytes % 0; Promyelocytes % 0; Reactive Lymphocytes 0
[2024-04-05 07:40] LABS: Calcium 9.3 mg/dL (8.7-10.4); Chloride 105 mmol/L (98-107); Potassium 3.9 mmol/L (3.5-5.1)
[2024-04-05 07:41] LABS: Anion Gap 6 (5-15); Carbon Dioxide 25 mmol/L (20-31)
[2024-04-05 07:46] LABS: BUN/Creatinine Ratio 14.9 (10.0-20.0); Blood Urea Nitrogen 10 mg/dL (9-23)
[2024-04-05 07:50] LABS: Glucose 109 mg/dL (74-106); Sodium 136 mmol/L (136-145)
[2024-04-05 08:11] LABS: Band Neutrophils % (manual) 6; Eosinophils % (manual) 10 (0-7); Lymphocytes % (manual) 22 (10.0-50.0); Monocytes % (manual) 3 (0-12); Myelocytes % 1
[2024-04-05 08:13] LABS: Large Platelets FEW; Platelet Estimate Decrea
[2024-04-05] MEDS: FAMOTIDINE 20 MG TAB PO SCH (10:00)
[2024-04-05] MEDS ORDERED: LIDOCAINE 1% INJ PF 5ML AMP ONE (11:43)
[2024-04-05] MEDS ORDERED: ONDANSETRON HCL 4 MG/2 ML VIAL ONE (11:43)
[2024-04-05] MEDS ORDERED: DexAMETHasone SOD PHOS 10MG/1ML VIAL INJ ONE (11:43)
[2024-04-05] MEDS ORDERED: PROPOFOL 10 MG/ML 20 ML IV ONE ×2 (11:43→13:40)
[2024-04-05] MEDS ORDERED: GLYCOPYRROLATE 0.2 MG/ML 1ML VIAL ONE (11:43)
--- NOTE | 2024-04-05 12:37 | DVHPN2 ---
Subjective Patient is a 68-year-old male with a past medical history are described below came to the ED with a chief complaint of right lower extremity swelling and pain status post I&D. Patient was recently discharged from the hospital after he was admitted for right ankle cellulitis with right Achillis abscess, right ankle necrotizing fasciitis status post I&D X 2 and was discharged home on ciprofloxacin. Patient reports that since he went home the swelling in his right lower extremity has been increasing and worsening pain which has not been controlled with his pain medications following which she came to the ED for further evaluation. Patient denied any other complaints of shortness of breath, dizziness, chest pain, fever, chills Reviewed: Care Plan, H&P, Labs, Medications, Previous Orders, Radiology Changes from previous H/P or p: No Changes Objective Vitals Vital Signs Date Time Temp Pulse Resp B/P (MAP) Pulse Ox O2 Delivery O2 Flow Rate FiO2 04/05/24 08:54 98.5 60 16 99/58 (72) 92 98.5 04/04/24 20:00 Room Air* 0 21 Intake/Output Intake and Output 04/05/24 07:00 Intake Total 1600 ml Output Total 1500 ml Balance 100 ml Intake Oral 1300 ml IV Total 300 ml Output Urine Total 1500 ml # Voids 2 # Bowel Movements 1 Exam DERMATOLOGIC EXAM: - Skin is dry and cool to the touch dry bilaterally. - Nails 1-5 of the bilateral foot are thickened, discolored, dystrophic, and tender to palpate with subungual debris - Hair loss noted to bilateral feet - fluctuance right lateral leg VASCULAR EXAM: - DP and PT pulses are palpable bilaterally. 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 - Feet are cool to touch compared to lower legs bilaterally. NEUROLOGIC EXAM: - Normal light touch sensation to the superficial peroneal, deep peroneal, sural, saphenous, and tibial nerve branches. - Protective sensation is diminished as tested with a 5.07 10g [place]-Renae bilaterally. MUSCULOSKELETAL EXAM: - No gross deformities - Muscle strength is 5/5 and active motion is pain-free and symmetrical bilaterally - No pain or crepitation with passive range of motion bilaterally to all major pedal joints General Appearance: Alert, Oriented X3, Cooperative, No acute distress HEENT: Atraumatic, PERRLA, EOMI, Mucous membr. moist/pink Lungs: Clear to auscultation, Normal air movement Cardiovascular: Regular rate, Normal S1, Normal S2, No murmurs, Gallops, Rubs Abdomen: Normal bowel sounds, Soft, No tenderness Extremities: Other (Right Foot Dressing) Neuro: Cranial nerves 3-12 NL Psych/Mental Status: Mental status NL Medications Current Medications Medications Dose Ordered Sig/Fabricio Route Start Time Stop Time Status Last Admin Dose Admin Acetaminophen/ Hydrocodone Bitart 1 tab Q6HP PRN PO 03/29/24 03:30 04/05/24 07:20 1 TAB Melatonin 5 mg HS PO 03/29/24 22:00 04/04/24 21:12 5 MG Vancomycin HCl 0 ml @ 0 mls/hr UD IV 03/29/24 04:00 Gabapentin 400 mg BID PO 03/29/24 10:00 04/04/24 21:12 400 MG Ondansetron HCl 4 mg Q6HPRN PRN IV 03/29/24 04:00 Enteral Nutritional Formula 28.8 gm BID PO 03/30/24 22:00 04/03/24 21:43 28.8 GM Morphine Sulfate 1 mg Q6HP PRN IV 03/31/24 11:15 03/31/24 18:20 1 MG Vancomycin HCl 250 ml @ 200 mls/hr Q12H IV 04/01/24 11:00 04/04/24 22:51 200 MLS/HR Midodrine 5 mg TID PO 04/02/24 22:00 04/05/24 07:02 5 MG Cefepime HCl 50 ml @ 12.5 mls/hr Q8H IV 04/03/24 21:00 04/05/24 07:02 12.5 MLS/HR Famotidine 40 mg DAILY PO 04/05/24 10:00 Laboratory Results Laboratory Tests 04/05/24 06:29 Chemistry Test 04/05/24 06:29 Calcium Level 9.3 mg/dL (8.7-10.4) Urinalysis Test 03/30/24 16:00 Urine Color Light-yellow (Yellow) Urine Clarity Clear (Clear) Urine pH 6.0 (5.0-9.0) Urine Specific [place] 1.014 (1.001-1.035) Urine Protein Negative (Negative) Urine Ketones Negative (Negative) Urine Blood Negative /uL (Negative) Urine Nitrite Negative (Negative) Urine Bilirubin Negative (Negative) Urine Urobilinogen Normal mg/dL (Negative) Urine Leukocyte Esterase Negative /uL (Negative) Urine RBC <1 /hpf (0 - 3) Urine WBC 1 /hpf (0 - 3) Urine Squamous Epithelial Cells Few /hpf (<5) Urine Bacteria None seen /hpf (None Seen) Urine Glucose Normal mg/dL (Normal) Microbiology Microbiology Date/Time Source Procedure Growth Status 04/01/24 16:13 Foot Right Gram Stain - Final Resulted 04/01/24 16:13 Foot Right Anaerobic Culture - Preliminary Resulted 04/01/24 16:13 Foot Right Aerobic Culture - Preliminary Resulted 03/29/24 13:07 Blood Blood Culture - Final NO GROWTH AFTER 5 DAYS OF INCUBATION. Complete Assessment/Plan Assessment/Plan ASSESSMENT: Patient is a year old seen on the floor for 1 day s/p from a right ankle I&D PLAN: - The patients chart was reviewed, clinical findings were discussed with the patient, the etiologies of the conditions were discussed in detail, and a treatment plan was agreed to at this time, with both oral and written instructions provided. - reviewed advanced imaging - discussed plan is to perform another incision and drainage - patient will be NPO at midnight - take him to the OR today - patient will require multiple I&D - can weightbear as tolerated in postoperative shoe All questions were answered and concerns addressed to the patient's satisfaction. The patient was given the phone number to the clinic and was told how to make contact with the clinic should any concerns or questions arise. Patient understands that if any questions or concerns arise prior to the next appointment, we should be contacted immediately. 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
--- NOTE | 2024-04-05 12:59 | DVHPN2 ---
Subjective Seen and examined at bedside, Repeat I&D. Will transfuse 1 PRBC Reviewed: Care Plan, H&P, Labs, Medications, Previous Orders, Radiology Changes from previous H/P or p: No Changes Objective Vitals Vital Signs Date Time Temp Pulse Resp B/P (MAP) Pulse Ox O2 Delivery O2 Flow Rate FiO2 04/05/24 12:40 98.5 66 17 97/43 98.5 04/05/24 08:54 92 04/04/24 20:00 Room Air* 0 21 Intake/Output Intake and Output 04/05/24 07:00 Intake Total 1600 ml Output Total 1500 ml Balance 100 ml Intake Oral 1300 ml IV Total 300 ml Output Urine Total 1500 ml # Voids 2 # Bowel Movements 1 General Appearance: Alert, Oriented X3, Cooperative, No acute distress HEENT: Atraumatic, PERRLA, EOMI, Mucous membr. moist/pink Lungs: Clear to auscultation, Normal air movement Cardiovascular: Regular rate, Normal S1, Normal S2, No murmurs, Gallops, Rubs Abdomen: Normal bowel sounds, Soft, No tenderness Extremities: Other (Right Foot Dressing) Neuro: Cranial nerves 3-12 NL Psych/Mental Status: Mental status NL Medications Current Medications Medications Dose Ordered Sig/Fabricio Route Start Time Stop Time Status Last Admin Dose Admin Acetaminophen/ Hydrocodone Bitart 1 tab Q6HP PRN PO 03/29/24 03:30 04/05/24 07:20 1 TAB Melatonin 5 mg HS PO 03/29/24 22:00 04/04/24 21:12 5 MG Vancomycin HCl 0 ml @ 0 mls/hr UD IV 03/29/24 04:00 Gabapentin 400 mg BID PO 03/29/24 10:00 04/04/24 21:12 400 MG Ondansetron HCl 4 mg Q6HPRN PRN IV 03/29/24 04:00 Enteral Nutritional Formula 28.8 gm BID PO 03/30/24 22:00 04/03/24 21:43 28.8 GM Morphine Sulfate 1 mg Q6HP PRN IV 03/31/24 11:15 03/31/24 18:20 1 MG Vancomycin HCl 250 ml @ 200 mls/hr Q12H IV 04/01/24 11:00 04/04/24 22:51 200 MLS/HR Midodrine 5 mg TID PO 04/02/24 22:00 04/05/24 07:02 5 MG Cefepime HCl 50 ml @ 12.5 mls/hr Q8H IV 04/03/24 21:00 04/05/24 07:02 12.5 MLS/HR Famotidine 40 mg DAILY PO 04/05/24 10:00 Laboratory Results Laboratory Tests 04/05/24 06:29 Chemistry Test 04/05/24 06:29 Calcium Level 9.3 mg/dL (8.7-10.4) Urinalysis Test 03/30/24 16:00 Urine Color Light-yellow (Yellow) Urine Clarity Clear (Clear) Urine pH 6.0 (5.0-9.0) Urine Specific [place] 1.014 (1.001-1.035) Urine Protein Negative (Negative) Urine Ketones Negative (Negative) Urine Blood Negative /uL (Negative) Urine Nitrite Negative (Negative) Urine Bilirubin Negative (Negative) Urine Urobilinogen Normal mg/dL (Negative) Urine Leukocyte Esterase Negative /uL (Negative) Urine RBC <1 /hpf (0 - 3) Urine WBC 1 /hpf (0 - 3) Urine Squamous Epithelial Cells Few /hpf (<5) Urine Bacteria None seen /hpf (None Seen) Urine Glucose Normal mg/dL (Normal) Microbiology Microbiology Date/Time Source Procedure Growth Status 04/01/24 16:13 Foot Right Gram Stain - Final Resulted 04/01/24 16:13 Foot Right Anaerobic Culture - Preliminary Resulted 04/01/24 16:13 Foot Right Aerobic Culture - Preliminary Resulted 03/29/24 13:07 Blood Blood Culture - Final NO GROWTH AFTER 5 DAYS OF INCUBATION. Complete Assessment/Plan Assessment/Plan #Sepsis due to Cellulitis status post Right Achilles abscess incision and drainage- repeat I&D Monday # Pancytopenia - Transfuse PRBC as needed #History of myelodysplastic syndrome -normocytic normochromic anemia #Asymptomatic Thrombocytopenia -Lovenox held. #Peripheral neuropathy -continue on gabapentin #Schizophrenia -on risperidone and mirtazapine at home, held due to hypotension status. Plan discussed with: Patient My Orders Orders - VENKAT SMILEY MD Procedure Category Date Status Time Famotidine Tablet PHA 04/05/24 In Process (Pepcid Tablet) 10:00 Transfuse Blood ORDERS 04/05/24 Transmitted Product 08:56 Basic Metabolic Panel LAB 04/06/24 Verified 04:00 Complete Blood Count LAB 04/06/24 Verified 04:00 Date of Service: Apr 05, 2024 Billing Provider: VENKAT SMILEY MD Common Visit Codes: [id number] INP/OBS CARE(MOD) VENKAT SMILEY MD Apr 05, 2024 12:59
[2024-04-05] MEDS: BUPIVACAINE 0.5% P/F INJ 10 ML VIAL ONE (13:32)
--- NOTE | 2024-04-05 16:01 | DVHOP2 ---
Operative Report - 2 Report Details Date: 04/05/24 Preop Diagnosis: 1. Right leg abscess 2. Right leg necrotizing fasciitis 3. Right leg cellulitis 4. Right leg pain Postop Diagnosis: Same as above Surgeon: Sergey Mullins MD Anesthesiologist: See anesthesia Anesthesia: Mac Consent: The patient was informed of the risks and benefits of the procedure. These include but are not limited to complications of anesthesia, postoperative infection, incomplete relief of symptoms, recurrence of symptoms, damage to blood vessels, nerves and tendons, deep venous thrombosis, pulmonary embolism and possible need for repeat surgery in the future. Complications: None Estimated Blood Loss: Minimal Fluids: See anesthesia Findings: Consistent with the diagnosis Indications for Surgery: Worsening right leg ulcer Name of Procedure Performed 1. Right leg I&D to bone (67192) Procedure Details Procedure Details: PRE-PROCEDURE INFORMATION: In the pre-op holding area, the extremity to be operated on was clearly marked and the patient verified correct laterality of the marking. The patient was transferred to the OR table and placed in a supine position. A timeout was performed in which identification of the correct patient, procedure, location, and materials was done. The right foot and leg were prepped and draped in normal sterile fashion. DESCRIPTION OF PROCEDURE: Attention was directed to the right lateral leg where previous incision was made area of fluctuance was noted. An incision was made over this area and was deepened through blunt dissection. The incision was deepened to the level of abscess and bone. Care was taken to the dissection to avoid any neurovascular and tendinous structures. The incision was deepened to the bone, and the abscess appeared to be purulent fluid consistent with pus. The cortices of the bone was then removed with Alan an all necrotic tissue. After the abscess was drained, the area was irrigated with 3 L normal saline using cysto tubing. The area was then inspected and any areas of tracking, especially along the tendons were also drained. The wound was packed with Betadine-soaked gauze and we will need to be closed at a later date. A dry sterile dressing was placed on the surgical extremity. POSTOPERATIVE INFORMATION: The patient tolerated the above noted procedure and anesthesia well and was transferred to the PACU with vital signs stable, and vascular status intact with capillary refill intact to all digits. Patient will return to the OR on Monday at which time we will place a graft over the Achilles to help it heal due to the skin loss from the infection. Continue antibiotics. Patient will be NPO on Monday night Condition Good Disposition Still a Patient SERGEY MULLINS DPM Apr 05, 2024 16:01
[2024-04-06] VITALS (7 sets, daily range): BP systolic 96–127; BP diastolic 44–72; PULSE 61–67; RESP 17–20; TEMP 97.6–98.2; O2SAT 94–100
[2024-04-06 06:53] LABS: Anion Gap 5 (5-15); Carbon Dioxide 24 mmol/L (20-31); Potassium 4.3 mmol/L (3.5-5.1); Sodium 136 mmol/L (136-145)
[2024-04-06 06:54] LABS: Calcium 9.4 mg/dL (8.7-10.4)
[2024-04-06 06:59] LABS: BUN/Creatinine Ratio 23.7 (10.0-20.0); Blood Urea Nitrogen 14 mg/dL (9-23)
[2024-04-06 07:03] LABS: Chloride 107 mmol/L (98-107); Glucose 132 mg/dL (74-106)
[2024-04-06 07:05] LABS: Hemoglobin 7.9 g/dL (13.5-17.5); Platelet Count (auto) 57 10^3/uL (140-450); Red Cell Distribution Width 14.1 % (11.8-14.3)
[2024-04-06 07:06] LABS: Hematocrit 23.4 % (41.0-53.0); Mean Corpuscular Hemoglobin 29.3 pg (28.0-32.0); Mean Corpuscular Hgb Conc. 33.9 g/dL (32.0-36.0); Mean Corpuscular Volume 86.6 fL (80.0-100.0); Red Blood Cells 2.71 10^6/uL (4.5-5.90)
[2024-04-06 07:16] LABS: Basophils % (manual) 0 (0.0-2.0); Blast Cells 0; Metamyelocytes % 0; Promyelocytes % 0; Reactive Lymphocytes 0
[2024-04-06 08:35] LABS: Band Neutrophils % (manual) 2; Eosinophils % (manual) 3 (0-7); Lymphocytes % (manual) 14 (10.0-50.0); Monocytes % (manual) 4 (0-12); Myelocytes % 1; Platelet Estimate Decreased
--- NOTE | 2024-04-06 10:37 | DVHPN2 ---
Subjective Seen and examined at bedside, Repeat I&D done. For wound closure on Monday Reviewed: Care Plan, H&P, Labs, Medications, Previous Orders, Radiology Changes from previous H/P or p: No Changes Objective Vitals Vital Signs Date Time Temp Pulse Resp B/P (MAP) Pulse Ox O2 Delivery O2 Flow Rate FiO2 04/06/24 09:00 97.9 61 18 118/44 (68) 96 97.9 04/05/24 20:00 Room Air* 0 21 Intake/Output Intake and Output 04/06/24 06:59 Intake Total 860 ml Output Total 1650 ml Balance -790 ml Intake Oral 800 ml IV Total 60 ml Output Urine Total 1650 ml General Appearance: Alert, Oriented X3, Cooperative, No acute distress HEENT: Atraumatic, PERRLA, EOMI, Mucous membr. moist/pink Lungs: Clear to auscultation, Normal air movement Cardiovascular: Regular rate, Normal S1, Normal S2, No murmurs, Gallops, Rubs Abdomen: Normal bowel sounds, Soft, No tenderness Extremities: Other (Right Foot Dressing) Neuro: Cranial nerves 3-12 NL Psych/Mental Status: Mental status NL Medications Current Medications Medications Dose Ordered Sig/Fabricio Route Start Time Stop Time Status Last Admin Dose Admin Acetaminophen/ Hydrocodone Bitart 1 tab Q6HP PRN PO 03/29/24 03:30 04/06/24 10:34 1 TAB Melatonin 5 mg HS PO 03/29/24 22:00 04/05/24 22:10 5 MG Vancomycin HCl 0 ml @ 0 mls/hr UD IV 03/29/24 04:00 Gabapentin 400 mg BID PO 03/29/24 10:00 04/06/24 10:20 400 MG Ondansetron HCl 4 mg Q6HPRN PRN IV 03/29/24 04:00 Enteral Nutritional Formula 28.8 gm BID PO 03/30/24 22:00 04/03/24 21:43 28.8 GM Morphine Sulfate 1 mg Q6HP PRN IV 03/31/24 11:15 03/31/24 18:20 1 MG Vancomycin HCl 250 ml @ 200 mls/hr Q12H IV 04/01/24 11:00 04/06/24 10:19 200 MLS/HR Midodrine 5 mg TID PO 04/02/24 22:00 04/06/24 06:28 5 MG Cefepime HCl 50 ml @ 12.5 mls/hr Q8H IV 04/03/24 21:00 04/06/24 05:18 12.5 MLS/HR Famotidine 40 mg DAILY PO 04/05/24 10:00 04/06/24 10:19 40 MG Laboratory Results Laboratory Tests 04/06/24 05:54 Chemistry Test 04/06/24 05:54 Calcium Level 9.4 mg/dL (8.7-10.4) Urinalysis Test 03/30/24 16:00 Urine Color Light-yellow (Yellow) Urine Clarity Clear (Clear) Urine pH 6.0 (5.0-9.0) Urine Specific [place] 1.014 (1.001-1.035) Urine Protein Negative (Negative) Urine Ketones Negative (Negative) Urine Blood Negative /uL (Negative) Urine Nitrite Negative (Negative) Urine Bilirubin Negative (Negative) Urine Urobilinogen Normal mg/dL (Negative) Urine Leukocyte Esterase Negative /uL (Negative) Urine RBC <1 /hpf (0 - 3) Urine WBC 1 /hpf (0 - 3) Urine Squamous Epithelial Cells Few /hpf (<5) Urine Bacteria None seen /hpf (None Seen) Urine Glucose Normal mg/dL (Normal) Microbiology Microbiology Date/Time Source Procedure Growth Status 04/01/24 16:13 Foot Right Gram Stain - Final Resulted 04/01/24 16:13 Foot Right Anaerobic Culture - Preliminary Resulted 04/01/24 16:13 Foot Right Aerobic Culture - Final Resulted 03/29/24 13:07 Blood Blood Culture - Final NO GROWTH AFTER 5 DAYS OF INCUBATION. Complete Assessment/Plan Assessment/Plan #Sepsis due to Cellulitis status post Right Achilles abscess incision and drainage- s/p I&D Monday . Wound closure on Monday04/08/24 # Pancytopenia - Transfuse PRBC as needed #History of myelodysplastic syndrome -normocytic normochromic anemia #Asymptomatic Thrombocytopenia -Lovenox held. #Peripheral neuropathy -continue on gabapentin #Schizophrenia -on risperidone and mirtazapine at home, held due to hypotension status. Plan discussed with: Patient My Orders Orders - VENKAT SMILEY MD Procedure Category Date Status Time Complete Blood Count LAB 04/07/24 Verified 07:00 Complete Blood Count LAB 04/08/24 Verified 07:00 Complete Blood Count LAB 04/09/24 Verified 07:00 Complete Blood Count LAB 04/10/24 Verified 07:00 Complete Blood Count LAB 04/11/24 Verified 07:00 Complete Blood Count LAB 04/12/24 Verified 07:00 Complete Blood Count LAB 04/13/24 Verified 07:00 Complete Blood Count LAB 04/14/24 Verified 07:00 Complete Blood Count LAB 04/15/24 Verified 07:00 Complete Blood Count LAB 04/16/24 Verified 07:00 Date of Service: Apr 06, 2024 Billing Provider: VENKAT SMILEY MD Common Visit Codes: [id number] INP/OBS CARE(MOD) VENKAT SMILEY MD Apr 06, 2024 10:37
[2024-04-07] VITALS (7 sets, daily range): BP systolic 86–124; BP diastolic 48–70; PULSE 66–89; RESP 16–20; TEMP 98–99.2; O2SAT 93–99
[2024-04-07 06:40] LABS: Hemoglobin 7.9 g/dL (13.5-17.5); Platelet Count (auto) 60 10^3/uL (140-450); White Blood Cell 10.1 10^3/uL (4.4-10.8)
[2024-04-07 06:45] LABS: Hematocrit 22.8 % (41.0-53.0); Mean Corpuscular Hemoglobin 30.2 pg (28.0-32.0); Mean Corpuscular Hgb Conc. 34.6 g/dL (32.0-36.0); Mean Corpuscular Volume 87.4 fL (80.0-100.0); Red Blood Cells 2.61 10^6/uL (4.5-5.90); Red Cell Distribution Width 14.1 % (11.8-14.3)
[2024-04-07 07:44] LABS: Basophils % (manual) 0 (0.0-2.0); Blast Cells 0; Metamyelocytes % 0; Myelocytes % 0; Promyelocytes % 0; Reactive Lymphocytes 0
[2024-04-07 08:55] LABS: Band Neutrophils % (manual) 2; Eosinophils % (manual) 3 (0-7); Lymphocytes % (manual) 13 (10.0-50.0); Monocytes % (manual) 5 (0-12)
[2024-04-07 08:56] LABS: Platelet Estimate Decreased
--- NOTE | 2024-04-07 09:35 | DVHPN2 ---
Subjective Seen and examined at bedside, Repeat I&D done. For wound closure tomorrow. Reviewed: Care Plan, H&P, Labs, Medications, Previous Orders, Radiology Changes from previous H/P or p: No Changes Objective Vitals Vital Signs Date Time Temp Pulse Resp B/P (MAP) Pulse Ox O2 Delivery O2 Flow Rate FiO2 04/07/24 05:00 98.1 70 18 114/48 (70) 96 98.1 04/06/24 20:00 Room Air* 0 21 Intake/Output Intake and Output 04/07/24 07:00 Intake Total 2570 ml Output Total 2000 ml Balance 570 ml Intake Oral 1920 ml IV Total 650 ml Output Urine Total 2000 ml # Voids 6 # Bowel Movements 2 General Appearance: Alert, Oriented X3, Cooperative, No acute distress HEENT: Atraumatic, PERRLA, EOMI, Mucous membr. moist/pink Lungs: Clear to auscultation, Normal air movement Cardiovascular: Regular rate, Normal S1, Normal S2, No murmurs, Gallops, Rubs Abdomen: Normal bowel sounds, Soft, No tenderness Extremities: Other (Right Foot Dressing) Neuro: Cranial nerves 3-12 NL Psych/Mental Status: Mental status NL Medications Current Medications Medications Dose Ordered Sig/Fabricio Route Start Time Stop Time Status Last Admin Dose Admin Melatonin 5 mg HS PO 03/29/24 22:00 04/06/24 22:08 5 MG Vancomycin HCl 0 ml @ 0 mls/hr UD IV 03/29/24 04:00 Gabapentin 400 mg BID PO 03/29/24 10:00 04/06/24 22:09 400 MG Ondansetron HCl 4 mg Q6HPRN PRN IV 03/29/24 04:00 Enteral Nutritional Formula 28.8 gm BID PO 03/30/24 22:00 04/03/24 21:43 28.8 GM Morphine Sulfate 1 mg Q6HP PRN IV 03/31/24 11:15 04/06/24 20:49 1 MG Vancomycin HCl 250 ml @ 200 mls/hr Q12H IV 04/01/24 11:00 04/07/24 00:09 200 MLS/HR Midodrine 5 mg TID PO 04/02/24 22:00 04/07/24 05:27 5 MG Cefepime HCl 50 ml @ 12.5 mls/hr Q8H IV 04/03/24 21:00 04/07/24 05:26 12.5 MLS/HR Famotidine 40 mg DAILY PO 04/05/24 10:00 04/06/24 10:19 40 MG Laboratory Results Laboratory Tests 04/06/24 05:54 04/07/24 06:05 Urinalysis Test 03/30/24 16:00 Urine Color Light-yellow (Yellow) Urine Clarity Clear (Clear) Urine pH 6.0 (5.0-9.0) Urine Specific [place] 1.014 (1.001-1.035) Urine Protein Negative (Negative) Urine Ketones Negative (Negative) Urine Blood Negative /uL (Negative) Urine Nitrite Negative (Negative) Urine Bilirubin Negative (Negative) Urine Urobilinogen Normal mg/dL (Negative) Urine Leukocyte Esterase Negative /uL (Negative) Urine RBC <1 /hpf (0 - 3) Urine WBC 1 /hpf (0 - 3) Urine Squamous Epithelial Cells Few /hpf (<5) Urine Bacteria None seen /hpf (None Seen) Urine Glucose Normal mg/dL (Normal) Microbiology Microbiology Date/Time Source Procedure Growth Status 04/01/24 16:13 Foot Right Gram Stain - Final Complete 04/01/24 16:13 Foot Right Anaerobic Culture - Final Complete 04/01/24 16:13 Foot Right Aerobic Culture - Final Complete 03/29/24 13:07 Blood Blood Culture - Final NO GROWTH AFTER 5 DAYS OF INCUBATION. Complete Assessment/Plan Assessment/Plan #Sepsis due to Cellulitis status post Right Achilles abscess incision and drainage- s/p I&D Monday . Wound closure on Monday04/08/24 # Pancytopenia - Transfuse PRBC as needed #History of myelodysplastic syndrome -normocytic normochromic anemia #Asymptomatic Thrombocytopenia -Lovenox held. #Peripheral neuropathy -continue on gabapentin #Schizophrenia -on risperidone and mirtazapine at home, held due to hypotension status. Plan discussed with: Patient My Orders Orders - VENKAT SMILEY MD Procedure Category Date Status Time Complete Blood Count LAB 04/08/24 Verified 07:00 Complete Blood Count LAB 04/09/24 Verified 07:00 Complete Blood Count LAB 04/10/24 Verified 07:00 Complete Blood Count LAB 04/11/24 Verified 07:00 Complete Blood Count LAB 04/12/24 Verified 07:00 Complete Blood Count LAB 04/13/24 Verified 07:00 Complete Blood Count LAB 04/14/24 Verified 07:00 Complete Blood Count LAB 04/15/24 Verified 07:00 Complete Blood Count LAB 04/16/24 Verified 07:00 Npo After Midnight DIET 04/07/24 Transmitted Lunch Initiate Vte KATIA 04/06/24 In Process Prophylaxis 11:38 * Dietary Consult CONS 04/06/24 Transmitted 14:43 Date of Service: Apr 07, 2024 Billing Provider: VENKAT SMILEY MD Common Visit Codes: [id number] INP/OBS CARE(MOD) VENKAT SMILEY MD Apr 07, 2024 09:35
[2024-04-08] VITALS (9 sets, daily range): BP systolic 90–143; BP diastolic 47–77; PULSE 68–100; RESP 16–93; TEMP 98.1–100.3; O2SAT 96–100
[2024-04-08 07:06] LABS: Hematocrit 24.5 % (41.0-53.0); Red Blood Cells 2.73 10^6/uL (4.5-5.90); White Blood Cell 9.2 10^3/uL (4.4-10.8)
[2024-04-08 07:09] LABS: Hemoglobin 8.2 g/dL (13.5-17.5); Mean Corpuscular Hemoglobin 29.9 pg (28.0-32.0); Mean Corpuscular Hgb Conc. 33.5 g/dL (32.0-36.0); Mean Corpuscular Volume 89.4 fL (80.0-100.0); Platelet Count (auto) 54 10^3/uL (140-450); Red Cell Distribution Width 14.4 % (11.8-14.3)
[2024-04-08 07:18] LABS: Basophils % (manual) 0 (0.0-2.0); Blast Cells 0; Metamyelocytes % 0; Myelocytes % 0; Promyelocytes % 0; Reactive Lymphocytes 0
[2024-04-08 07:50] LABS: Band Neutrophils % (manual) 4; Eosinophils % (manual) 4 (0-7); Lymphocytes % (manual) 17 (10.0-50.0); Monocytes % (manual) 5 (0-12); Platelet Estimate Decreased
[2024-04-08 07:51] LABS: RBC Morphology Normal
[2024-04-08] MEDS: HYDROmorphone HCL 2 MG/ML VL/or syr ONE ×3 (08:25→13:14)
[2024-04-08] MEDS: ONDANSETRON HCL 4 MG/2 ML VIAL IV ONE (08:26)
--- NOTE | 2024-04-08 09:48 | DVHPN2 ---
Subjective Patient is a 68-year-old male with a past medical history are described below came to the ED with a chief complaint of right lower extremity swelling and pain status post I&D. Patient was recently discharged from the hospital after he was admitted for right ankle cellulitis with right Achillis abscess, right ankle necrotizing fasciitis status post I&D X 2 and was discharged home on ciprofloxacin. Patient reports that since he went home the swelling in his right lower extremity has been increasing and worsening pain which has not been controlled with his pain medications following which she came to the ED for further evaluation. Patient denied any other complaints of shortness of breath, dizziness, chest pain, fever, chills Reviewed: Care Plan, H&P, Labs, Medications, Previous Orders, Radiology Changes from previous H/P or p: No Changes Objective Vitals Vital Signs Date Time Temp Pulse Resp B/P (MAP) Pulse Ox O2 Delivery O2 Flow Rate FiO2 04/08/24 09:03 98.6 74 16 100/47 (64) 99 98.6 04/07/24 20:00 Room Air* 0 21 Intake/Output Intake and Output 04/08/24 07:00 Intake Total 1000 ml Output Total 2500 ml Balance -1500 ml Intake Oral 900 ml IV Total 100 ml Output Urine Total 2500 ml # Voids 5 Exam DERMATOLOGIC EXAM: - Skin is dry and cool to the touch dry bilaterally. - Nails 1-5 of the bilateral foot are thickened, discolored, dystrophic, and tender to palpate with subungual debris - Hair loss noted to bilateral feet - fluctuance right lateral leg VASCULAR EXAM: - DP and PT pulses are palpable bilaterally. 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 - Feet are cool to touch compared to lower legs bilaterally. NEUROLOGIC EXAM: - Normal light touch sensation to the superficial peroneal, deep peroneal, sural, saphenous, and tibial nerve branches. - Protective sensation is diminished as tested with a 5.07 10g [place] bilaterally. MUSCULOSKELETAL EXAM: - No gross deformities - Muscle strength is 5/5 and active motion is pain-free and symmetrical bilaterally - No pain or crepitation with passive range of motion bilaterally to all major pedal joints General Appearance: Alert, Oriented X3, Cooperative, No acute distress HEENT: Atraumatic, PERRLA, EOMI, Mucous membr. moist/pink Lungs: Clear to auscultation, Normal air movement Cardiovascular: Regular rate, Normal S1, Normal S2, No murmurs, Gallops, Rubs Abdomen: Normal bowel sounds, Soft, No tenderness Extremities: Other (Right Foot Dressing) Neuro: Cranial nerves 3-12 NL Psych/Mental Status: Mental status NL Medications Current Medications Medications Dose Ordered Sig/Fabricio Route Start Time Stop Time Status Last Admin Dose Admin Melatonin 5 mg HS PO 03/29/24 22:00 04/07/24 22:31 5 MG Vancomycin HCl 0 ml @ 0 mls/hr UD IV 03/29/24 04:00 Gabapentin 400 mg BID PO 03/29/24 10:00 04/07/24 22:31 400 MG Ondansetron HCl 4 mg Q6HPRN PRN IV 03/29/24 04:00 Enteral Nutritional Formula 28.8 gm BID PO 03/30/24 22:00 04/07/24 22:00 28.8 GM Morphine Sulfate 1 mg Q6HP PRN IV 03/31/24 11:15 04/07/24 20:37 1 MG Vancomycin HCl 250 ml @ 200 mls/hr Q12H IV 04/01/24 11:00 04/07/24 22:35 200 MLS/HR Midodrine 5 mg TID PO 04/02/24 22:00 04/08/24 06:14 5 MG Cefepime HCl 50 ml @ 12.5 mls/hr Q8H IV 04/03/24 21:00 04/07/24 20:36 12.5 MLS/HR Famotidine 40 mg DAILY PO 04/05/24 10:00 04/07/24 11:30 40 MG Laboratory Results Laboratory Tests 04/06/24 05:54 04/08/24 06:05 Urinalysis Test 03/30/24 16:00 Urine Color Light-yellow (Yellow) Urine Clarity Clear (Clear) Urine pH 6.0 (5.0-9.0) Urine Specific [place] 1.014 (1.001-1.035) Urine Protein Negative (Negative) Urine Ketones Negative (Negative) Urine Blood Negative /uL (Negative) Urine Nitrite Negative (Negative) Urine Bilirubin Negative (Negative) Urine Urobilinogen Normal mg/dL (Negative) Urine Leukocyte Esterase Negative /uL (Negative) Urine RBC <1 /hpf (0 - 3) Urine WBC 1 /hpf (0 - 3) Urine Squamous Epithelial Cells Few /hpf (<5) Urine Bacteria None seen /hpf (None Seen) Urine Glucose Normal mg/dL (Normal) Microbiology Microbiology Date/Time Source Procedure Growth Status 04/01/24 16:13 Foot Right Gram Stain - Final Complete 04/01/24 16:13 Foot Right Anaerobic Culture - Final Complete 04/01/24 16:13 Foot Right Aerobic Culture - Final Complete 03/29/24 13:07 Blood Blood Culture - Final NO GROWTH AFTER 5 DAYS OF INCUBATION. Complete Assessment/Plan Assessment/Plan ASSESSMENT: Patient is a year old seen on the floor for 3 day s/p from a right ankle I&D PLAN: - The patients chart was reviewed, clinical findings were discussed with the patient, the etiologies of the conditions were discussed in detail, and a treatment plan was agreed to at this time, with both oral and written instructions provided. - reviewed advanced imaging - discussed plan is to perform another incision and drainage, with closure today - patient will be NPO at midnight - take him to the OR today - can weightbear as tolerated in postoperative shoe All questions were answered and concerns addressed to the patient's satisfaction. The patient was given the phone number to the clinic and was told how to make contact with the clinic should any concerns or questions arise. Patient understands that if any questions or concerns arise prior to the next appointment, we should be contacted immediately. 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
[2024-04-08] MEDS ORDERED: PROPOFOL 10 MG/ML 20 ML IV ONE (11:03)
[2024-04-08] MEDS ORDERED: MIDAZOLAM HCL 2MG/2ML 2ml VIAL (1mg/ml) ONE (11:03)
[2024-04-08] MEDS ORDERED: GLYCOPYRROLATE 0.2 MG/ML 1ML VIAL ONE (11:03)
[2024-04-08] MEDS ORDERED: ONDANSETRON HCL 4 MG/2 ML VIAL ONE (11:03)
--- NOTE | 2024-04-08 11:29 | DVHOP2 ---
Operative Report - 2 Report Details Date: 04/08/24 Preop Diagnosis: 1. Right leg abscess 2. Right leg necrotizing fasciitis 3. Right leg cellulitis 4. Right leg pain Postop Diagnosis: Same as above Surgeon: Sergey Mullins MD Anesthesiologist: See anesthesia Anesthesia: Mac Implant: 5 x 5 Integra dermal graft Consent: The patient was informed of the risks and benefits of the procedure. These include but are not limited to complications of anesthesia, postoperative infection, incomplete relief of symptoms, recurrence of symptoms, damage to blood vessels, nerves and tendons, deep venous thrombosis, pulmonary embolism and possible need for repeat surgery in the future. Complications: None Estimated Blood Loss: Minimal Fluids: See anesthesia Findings: Consistent with diagnosis Indications for Surgery: Worsening right ankle infection Name of Procedure Performed 1. Right leg I&D to bone (52616) 2. Right ankle wound bed preparation for graft (73508) 3. Right ankle placement of dermal graft (56831) 4. Right ankle delayed closure (65109) Procedure Details Procedure Details: PRE-PROCEDURE INFORMATION: In the pre-op holding area, the extremity to be ope rated on was clearly marked and the patient verified correct laterality of the marking. The patient was transferred to the OR table and placed in a supine position. A timeout was performed in which identification of the correct patient, procedure, location, and materials was done. The right foot and leg were prepped and draped in normal sterile fashion. DESCRIPTION OF PROCEDURE: Attention was directed to the right lateral leg where previous incision was made area of fluctuance was noted. An incision was made over this area and was deepened through blunt dissection. The incision was deepened to the level of abscess and bone. Care was taken to the dissection to avoid any neurovascular and tendinous structures. The incision was deepened to the bone, and the abscess appeared to be purulent fluid consistent with pus. The cortices of the bone was then removed with Alan an all necrotic tissue. After the abscess was drained, the area was irrigated with 3 L normal saline using cysto tubing. The area was then inspected and any areas of tracking, especially along the tendons were also drained. The wound bed was then prepped for placement of the dermal graft. Using a #15 blade and curette, the base of the wound has removal of all nonadherent and fibrotic material. Using an integra dermal graft, the graft was placed over the wound bed and a staple gun was used to adhere the graft to the wound edges. A delayed closure was then performed using 2-0 nylon after was deemed appropriate with no longer concern for infection. POSTOPERATIVE INFORMATION: The patient tolerated the above noted procedure and anesthesia well and was transferred to the PACU with vital signs stable, and vascular status intact with capillary refill intact to all digits. Patient can return to the floor and continue IV antibiotics. Patient can discharge home when deemed medically stable. Condition Good Disposition Still a Patient SERGEY MULLINS DPM Apr 08, 2024 11:29
[2024-04-08] MEDS ORDERED: HYDROmorphone HCL 2 MG/ML VL/or syr IV PRN (11:45)
[2024-04-08] MEDS: HYDROmorphone HCL 2 MG/ML VL/or syr IV ONE (11:53)
--- NOTE | 2024-04-08 16:19 | DVHPN2 ---
Subjective Patient denies any symptoms at this time. Reviewed: Care Plan, H&P, Labs, Medications, Previous Orders, Radiology Changes from previous H/P or p: No Changes General: Per HPI Objective Vitals Vital Signs Date Time Temp Pulse Resp B/P (MAP) Pulse Ox O2 Delivery O2 Flow Rate FiO2 04/08/24 12:30 98.4 98 18 98/62 (74) 97 98.4 04/08/24 11:27 Mask 5.0 04/08/24 11:27 100 Intake/Output Intake and Output 04/08/24 07:00 Intake Total 1000 ml Output Total 2500 ml Balance -1500 ml Intake Oral 900 ml IV Total 100 ml Output Urine Total 2500 ml # Voids 5 General Appearance: Alert, Oriented X3, Cooperative, No acute distress HEENT: Atraumatic, PERRLA, EOMI, Mucous membr. moist/pink Lungs: Clear to auscultation, Normal air movement Cardiovascular: Regular rate, Normal S1, Normal S2, No murmurs, Gallops, Rubs Abdomen: Normal bowel sounds, Soft, No tenderness Genitourinary: No Apparent Abnormalities Extremities: Other (Right Foot Dressing) Neuro: Cranial nerves 3-12 NL Skin: Dry, Intact, Wounds (See nurse notes and pictures), Other (Dressing dry and intact) Psych/Mental Status: Mental status NL, Mood NL Medications Current Medications Medications Dose Ordered Sig/Fabricio Route Start Time Stop Time Status Last Admin Dose Admin Melatonin 5 mg HS PO 03/29/24 22:00 04/07/24 22:31 5 MG Vancomycin HCl 0 ml @ 0 mls/hr UD IV 03/29/24 04:00 Gabapentin 400 mg BID PO 03/29/24 10:00 04/08/24 13:22 400 MG Ondansetron HCl 4 mg Q6HPRN PRN IV 03/29/24 04:00 Enteral Nutritional Formula 28.8 gm BID PO 03/30/24 22:00 04/07/24 22:00 28.8 GM Morphine Sulfate 1 mg Q6HP PRN IV 03/31/24 11:15 04/07/24 20:37 1 MG Vancomycin HCl 250 ml @ 200 mls/hr Q12H IV 04/01/24 11:00 04/08/24 13:22 200 MLS/HR Midodrine 5 mg TID PO 04/02/24 22:00 04/08/24 15:20 5 MG Cefepime HCl 50 ml @ 12.5 mls/hr Q8H IV 04/03/24 21:00 04/07/24 20:36 12.5 MLS/HR Famotidine 40 mg DAILY PO 04/05/24 10:00 04/08/24 13:22 40 MG Hydromorphone HCl 0.5 mg Q10M PRN IV 04/08/24 11:45 04/08/24 18:00 Laboratory Results Laboratory Tests 04/06/24 05:54 04/08/24 06:05 Urinalysis Test 03/30/24 16:00 Urine Color Light-yellow (Yellow) Urine Clarity Clear (Clear) Urine pH 6.0 (5.0-9.0) Urine Specific [place] 1.014 (1.001-1.035) Urine Protein Negative (Negative) Urine Ketones Negative (Negative) Urine Blood Negative /uL (Negative) Urine Nitrite Negative (Negative) Urine Bilirubin Negative (Negative) Urine Urobilinogen Normal mg/dL (Negative) Urine Leukocyte Esterase Negative /uL (Negative) Urine RBC <1 /hpf (0 - 3) Urine WBC 1 /hpf (0 - 3) Urine Squamous Epithelial Cells Few /hpf (<5) Urine Bacteria None seen /hpf (None Seen) Urine Glucose Normal mg/dL (Normal) Microbiology Microbiology Date/Time Source Procedure Growth Status 04/01/24 16:13 Foot Right Gram Stain - Final Complete 04/01/24 16:13 Foot Right Anaerobic Culture - Final Complete 04/01/24 16:13 Foot Right Aerobic Culture - Final Complete 03/29/24 13:07 Blood Blood Culture - Final NO GROWTH AFTER 5 DAYS OF INCUBATION. Complete Labs and/or images reviewed: Labs reviewed by me, Image(s) reviewed by me Assessment/Plan Assessment/Plan Impression: -cellulitis/necrotizing fasciitis to right calf and ankle -myelodysplastic disorder -schizophrenia -pancytopenia Plan: -patient was status post surgery today, closure of wound -continue antibiotic therapy -continue antipsychotics -recheck labs in a.m., possible PRBC transfusion -discharge planning for tomorrow, assess patient's DME needs. He states he was a walker. Primary nurse states that he has been ambulating with the assistance. Total time spent with patient discussing and formulating plan of care: 35 minutes. This medical document was created using an electronic medical record system with [employer] dictation system. Although this document has been carefully reviewed, there may still be some phonetic and typographical errors. These areas are purely typographical due to imperfections of the software programs, and do not reflect any compromise in the patient's medical care. Plan discussed with: Patient, Other (RN) Date of Service: Apr 08, 2024 Billing Provider: YOANDY SALAS NP Common Visit Codes: [id number] INP/OBS CARE(HIGH) YOANDY SALAS NP Apr 08, 2024 16:19
[2024-04-09 01:00] VITALS: BP_SYST 105; BP_SYST 118; BP_DIAS 53; BP_DIAS 61; PULSE 71; PULSE 79; RESP 16; RESP 18; TEMP 98.3; TEMP 99.3; TEMP 99.5; O2SAT 97; O2SAT 99
[2024-04-09 07:35] LABS: Hemoglobin 7.3 g/dL (13.5-17.5); Red Blood Cells 2.44 10^6/uL (4.5-5.90)
[2024-04-09 07:37] LABS: Hematocrit 21.4 % (41.0-53.0); Mean Corpuscular Hemoglobin 30.1 pg (28.0-32.0); Mean Corpuscular Hgb Conc. 34.3 g/dL (32.0-36.0); Platelet Count (auto) 49 10^3/uL (140-450); Red Cell Distribution Width 14.2 % (11.8-14.3)
[2024-04-09 07:59] LABS: Basophils % (manual) 0 (0.0-2.0); Blast Cells 0; Myelocytes % 0; Reactive Lymphocytes 0
[2024-04-09 08:48] VITALS: BP 111/48; PULSE 79; RESP 19; TEMP 98.2; O2SAT 100
[2024-04-09 10:42] LABS: Band Neutrophils % (manual) 10; Eosinophils % (manual) 6 (0-7); Lymphocytes % (manual) 13 (10.0-50.0); Metamyelocytes % 2; Monocytes % (manual) 4 (0-12); Promyelocytes % 2
[2024-04-09 10:43] LABS: Large Platelets FEW
[2024-04-09 10:45] LABS: Platelet Estimate Decreased
[2024-04-09 13:00] VITALS: BP 114/56; PULSE 78; RESP 18; TEMP 98.8; O2SAT 98
[2024-04-09] MEDS ORDERED: KETAMINE 50mg/ML 1ml syringe IV ONE (13:14)
--- NOTE | 2024-04-09 16:15 | DVHPN2 ---
Subjective Seen and examined at bedside, [place] Home tomorrow. Reviewed: Care Plan, H&P, Labs, Medications, Previous Orders, Radiology Changes from previous H/P or p: No Changes General: Per HPI Objective Vitals Vital Signs Date Time Temp Pulse Resp B/P (MAP) Pulse Ox O2 Delivery O2 Flow Rate FiO2 04/09/24 13:00 98.8 78 18 114/56 (75) 98 98.8 04/09/24 08:00 Room Air* 0 21 Intake/Output Intake and Output 04/09/24 07:00 Intake Total 1350 ml Output Total 225 ml Balance 1125 ml Intake Oral 700 ml IV Total 650 ml Output Urine Total 225 ml # Voids 1 General Appearance: Alert, Oriented X3, Cooperative, No acute distress HEENT: Atraumatic, PERRLA, EOMI, Mucous membr. moist/pink Lungs: Clear to auscultation, Normal air movement Cardiovascular: Regular rate, Normal S1, Normal S2, No murmurs, Gallops, Rubs Abdomen: Normal bowel sounds, Soft, No tenderness Genitourinary: No Apparent Abnormalities Extremities: Other (Right Foot Dressing) Neuro: Cranial nerves 3-12 NL Skin: Dry, Intact, Wounds (See nurse notes and pictures), Other (Dressing dry and intact) Psych/Mental Status: Mental status NL, Mood NL Medications Current Medications Medications Dose Ordered Sig/Fabricio Route Start Time Stop Time Status Last Admin Dose Admin Melatonin 5 mg HS PO 03/29/24 22:00 04/08/24 21:07 5 MG Gabapentin 400 mg BID PO 03/29/24 10:00 04/09/24 10:30 400 MG Ondansetron HCl 4 mg Q6HPRN PRN IV 03/29/24 04:00 Enteral Nutritional Formula 28.8 gm BID PO 03/30/24 22:00 04/07/24 22:00 28.8 GM Vancomycin HCl 250 ml @ 200 mls/hr Q12H IV 04/01/24 11:00 04/09/24 11:18 200 MLS/HR Midodrine 5 mg TID PO 04/02/24 22:00 04/09/24 14:30 5 MG Cefepime HCl 50 ml @ 12.5 mls/hr Q8H IV 04/03/24 21:00 04/09/24 05:42 12.5 MLS/HR Famotidine 40 mg DAILY PO 04/05/24 10:00 04/09/24 10:30 40 MG Laboratory Results Laboratory Tests 04/06/24 05:54 04/09/24 06:16 Urinalysis Test 03/30/24 16:00 Urine Color Light-yellow (Yellow) Urine Clarity Clear (Clear) Urine pH 6.0 (5.0-9.0) Urine Specific [place] 1.014 (1.001-1.035) Urine Protein Negative (Negative) Urine Ketones Negative (Negative) Urine Blood Negative /uL (Negative) Urine Nitrite Negative (Negative) Urine Bilirubin Negative (Negative) Urine Urobilinogen Normal mg/dL (Negative) Urine Leukocyte Esterase Negative /uL (Negative) Urine RBC <1 /hpf (0 - 3) Urine WBC 1 /hpf (0 - 3) Urine Squamous Epithelial Cells Few /hpf (<5) Urine Bacteria None seen /hpf (None Seen) Urine Glucose Normal mg/dL (Normal) Microbiology Microbiology Date/Time Source Procedure Growth Status 04/01/24 16:13 Foot Right Gram Stain - Final Complete 04/01/24 16:13 Foot Right Anaerobic Culture - Final Complete 04/01/24 16:13 Foot Right Aerobic Culture - Final Complete 03/29/24 13:07 Blood Blood Culture - Final NO GROWTH AFTER 5 DAYS OF INCUBATION. Complete Assessment/Plan Assessment/Plan #Sepsis due to Cellulitis status post Right Achilles abscess incision and drainage- s/p I&D Monday . s/p Wound closure on Monday04/08/24 # Pancytopenia - Transfuse PRBC as needed #History of myelodysplastic syndrome -normocytic normochromic anemia #Asymptomatic Thrombocytopenia -Lovenox held. #Peripheral neuropathy -continue on gabapentin #Schizophrenia -on risperidone and mirtazapine at home, held due to hypotension status. Plan discussed with: Patient My Orders Orders - VENKAT SMILEY MD Procedure Category Date Status Time Transfuse Blood ORDERS 04/09/24 Transmitted Product 12:28 Type And Screen BBK 04/09/24 In Process 14:22 Date of Service: Apr 09, 2024 Billing Provider: VENKAT SMILEY MD Common Visit Codes: [id number] INP/OBS CARE(MOD) VENKAT SMILEY MD Apr 09, 2024 16:15
[2024-04-09 16:42] VITALS: BP 109/38; PULSE 87; RESP 16; TEMP 99.4; O2SAT 96
[2024-04-09 20:00] VITALS: PULSE 93; RESP 20; O2SAT 95
[2024-04-09 21:00] VITALS: BP 110/59; PULSE 93; RESP 20; TEMP 99.6; O2SAT 95
[2024-04-10] VITALS (10 sets, daily range): BP systolic 92–136; BP diastolic 50–82; PULSE 78–87; RESP 16–20; TEMP 36.8; O2SAT 17–99
[2024-04-10] MEDS: ACETAMINOPHEN 325 MG TAB PO PRN (02:28)
[2024-04-10 08:05] LABS: Hematocrit 24.7 % (41.0-53.0); Hemoglobin 8.5 g/dL (13.5-17.5); Mean Corpuscular Hemoglobin 28.9 pg (28.0-32.0); Mean Corpuscular Hgb Conc. 34.2 g/dL (32.0-36.0); Mean Corpuscular Volume 84.5 fL (80.0-100.0); Platelet Count (auto) 51 10^3/uL (140-450); Red Blood Cells 2.92 10^6/uL (4.5-5.90); Red Cell Distribution Width 16.2 % (11.8-14.3); White Blood Cell 9.4 10^3/uL (4.4-10.8)
[2024-04-10 08:13] LABS: Basophils % (manual) 0 (0.0-2.0); Blast Cells 0; Myelocytes % 0; Promyelocytes % 0; Reactive Lymphocytes 0
[2024-04-10] MEDS: HYDROcodone-ACET 10/325MG TAB PO PRN (09:18)
[2024-04-10 11:16] LABS: Band Neutrophils % (manual) 14; Eosinophils % (manual) 8 (0-7); Lymphocytes % (manual) 10 (10.0-50.0); Metamyelocytes % 1; Monocytes % (manual) 5 (0-12)
[2024-04-10 11:17] LABS: Platelet Estimate Decreased
[2024-04-10] MEDS ORDERED: CEPH250C PO (17:02)
[2024-04-10] MEDS ORDERED: HYDR-4798 PO (17:02)
--- NOTE | 2024-04-10 17:07 | DVHDS2 ---
Discharge Summary Date of Admission Mar 28, 2024 at 23:06 Date of Discharge: Apr 10, 2024 Admitting Diagnosis Right leg necrotizing fasciitis Wounds: Right leg Labs/Diagnostic Data: Laboratory Results Test 04/10/24 11:30 04/10/24 06:42 04/09/24 06:16 04/08/24 06:05 Vancomycin Level Trough 11.9 ug/mL (5-10) White Blood Count 9.4 10^3/uL (4.4-10.8) Red Blood Count 2.92 10^6/uL (4.5-5.90) Hemoglobin 8.5 g/dL (13.5-17.5) Hematocrit 24.7 % (41.0-53.0) Mean Corpuscular Volume 84.5 fL (80.0-100.0) Mean Corpuscular Hemoglobin 28.9 pg (28.0-32.0) Mean Corpuscular Hemoglobin Concent 34.2 g/dL (32.0-36.0) Red Cell Distribution Width 16.2 % (11.8-14.3) Platelet Count 51 10^3/uL (140-450) Mean Platelet Volume 10.0 fL (6.9-10.8) Neutrophils (%) (Auto) % (37.0-80.0) Lymphocytes (%) (Auto) % (10.0-50.0) Monocytes (%) (Auto) % (0.0-12.0) Basophils (%) (Auto) % (0.0-2.0) Neutrophils # (Auto) 10 ^3/uL (1.6-8.6) Lymphocytes # (Auto) 10 ^3/uL (0.4-5.4) Monocytes # (Auto) 10 ^3/uL (0-1.3) Differential Total Cells Counted 100.0 (100) Neutrophils % (Manual) 62 (37.0-80.0) Band Neutrophils % (Manual) 14 Lymphocytes % (Manual) 10 (10.0-50.0) Monocytes % (Manual) 5 (0-12) Eosinophils % (Manual) 8 (0-7) Basophils % (Manual) 0 (0.0-2.0) Metamyelocytes % (manual) 1 Myelocytes % (Manual) 0 Promyelocytes % (Manual) 0 Blast Cells % (Manual) 0 Reactive Lymphocytes 0 Platelet Estimate Decreased Clumped Platelets Few Large Platelets Few Creatinine 0.62 mg/dL (0.700-1.30) Glomerular Filtration Rate Calc 105 mL/min (>90) Red Blood Cell Morphology Normal Test 04/06/24 05:54 04/03/24 14:36 04/01/24 07:00 03/31/24 06:00 Sodium Level 136 mmol/L (136-145) Potassium Level 4.3 mmol/L (3.5-5.1) Chloride Level 107 mmol/L (98-107) Carbon Dioxide Level 24 mmol/L (20-31) Anion Gap 5 (5-15) Blood Urea Nitrogen 14 mg/dL (9-23) BUN/Creatinine Ratio 23.7 (10.0-20.0) Serum Glucose 132 mg/dL (74-106) Calcium Level 9.4 mg/dL (8.7-10.4) Eosinophils (%) (Auto) 6.7 % (0.0-7.0) Eosinophils # (Auto) 0.4 10 ^3/uL (0-0.8) Basophils # (Auto) 0.1 10 ^3/uL (0-0.2) Nucleated Red Blood Cells 0.0 % Prothrombin Time 11.6 sec (9.3-11.8) Prothrombin Time INR 1.10 (0.9-1.15) Activated Partial Thromboplast Time 27.8 SEC (24.5-34.5) Influenza Type A Antigen Negative (Negative) Influenza Type B Antigen Negative (Negative) SARS-CoV-2 Antigen (Rapid) Negative (NEGATIVE) Test 03/30/24 18:41 03/30/24 17:30 03/30/24 16:15 03/30/24 16:00 Lactic Acid Level 1.9 mmol/L (0.4-2.0) C-Reactive Protein High Sensitivity 10.89 mg/dL (<1.0) Iron Level 120 ug/dL (65-175) Total Iron Binding Capacity 159 ug/dL (250-425) Percent Iron Saturation 75.5 % (20-55) Urine Color Light-yellow (Yellow) Urine Clarity Clear (Clear) Urine pH 6.0 (5.0-9.0) Urine Specific [place] 1.014 (1.001-1.035) Urine Protein Negative (Negative) Urine Ketones Negative (Negative) Urine Blood Negative /uL (Negative) Urine Nitrite Negative (Negative) Urine Bilirubin Negative (Negative) Urine Urobilinogen Normal mg/dL (Negative) Urine Leukocyte Esterase Negative /uL (Negative) Urine RBC <1 /hpf (0 - 3) Urine WBC 1 /hpf (0 - 3) Urine Squamous Epithelial Cells Few /hpf (<5) Urine Bacteria None seen /hpf (None Seen) Urine Glucose Normal mg/dL (Normal) Test 03/30/24 09:15 03/30/24 07:30 03/29/24 08:06 03/28/24 17:08 Urine Opiates Screen Neg (NEGATIVE) Urine Fentanyl Screen Neg (NEGATIVE) Urine Barbiturates Screen Neg (NEGATIVE) Urine Phencyclidine Screen Neg (NEGATIVE) Urine Amphetamines Screen Neg (NEGATIVE) Urine Benzodiazepines Screen Neg (NEGATIVE) Urine Cocaine Screen Neg (NEGATIVE) Urine Cannabinoids Screen Neg (NEGATIVE) Erythrocyte Sedimentation Rate 58 mm/hr (0-20) Hemoglobin A1c 6.1 % A1C (<5.7) Total Bilirubin 0.4 mg/dL (0.2-1.0) Aspartate Amino Transferase (AST) 34 U/L (13-40) Alanine Aminotransferase (ALT) 117 U/L (7-40) Alkaline Phosphatase 80 U/L (46-116) Total Protein 5.4 g/dL (5.7-8.2) Albumin 2.8 g/dL (3.2-4.8) Troponin I High Sensitivity < 3 ng/L (</=54) Test 03/28/24 16:12 B-Type Natriuretic Peptide 22.99 pg/mL (0-100) Other Laboratory Tests 04/10/24 06:42 04/09/24 06:16 04/06/24 05:54 Brief Hx & Hospital Course: Patient is a 68-year-old male with a past medical history are described below came to the ED with a chief complaint of right lower extremity swelling and pain status post I&D. Patient was recently discharged from the hospital after he was admitted for right ankle cellulitis with right Achillis abscess, right ankle necrotizing fasciitis status post I&D X 2 and was discharged home on ciprofloxacin. Patient reports that since he went home the swelling in his right lower extremity has been increasing and worsening pain which has not been controlled with his pain medications following which she came to the ED for further evaluation. Patient denied any other complaints of shortness of breath, dizziness, chest pain, fever, chills. Patient was seen in Podiatry consult, underwent I&D see operative report below. Patient will be discharged with Estelita and Veena to see Podiatry clinic in 1 week. Operations or Procedures Operative Report - 2 Report Details Date: 04/08/24 Preop Diagnosis: 1. Right leg abscess 2. Right leg necrotizing fasciitis 3. Right leg cellulitis 4. Right leg pain Postop Diagnosis: Same as above Surgeon: Mason Bell MD Anesthesiologist: See anesthesia Anesthesia: Mac Implant: 5 x 5 Integra dermal graft Consent: The patient was informed of the risks and benefits of the procedure. These include but are not limited to complications of anesthesia, postoperative infection, incomplete relief of symptoms, recurrence of symptoms, damage to blood vessels, nerves and tendons, deep venous thrombosis, pulmonary embolism and possible need for repeat surgery in the future. Complications: None Estimated Blood Loss: Minimal Fluids: See anesthesia Findings: Consistent with diagnosis Indications for Surgery: Worsening right ankle infection Name of Procedure Performed 1. Right leg I&D to bone (65887) 2. Right ankle wound bed preparation for graft (49472) 3. Right ankle placement of dermal graft (59057) 4. Right ankle delayed closure (11754) Procedure Details Procedure Details: PRE-PROCEDURE INFORMATION: In the pre-op holding area, the extremity to be operated on was clearly marked and the patient verified correct laterality of the marking. The patient was transferred to the OR table and placed in a supine position. A timeout was performed in which identification of the correct patient, procedure, location, and materials was done. The right foot and leg were prepped and draped in normal sterile fashion. DESCRIPTION OF PROCEDURE: Attention was directed to the right lateral leg where previous incision was made area of fluctuance was noted. An incision was made over this area and was deepened through blunt dissection. The incision was deepened to the level of abscess and bone. Care was taken to the dissection to avoid any neurovascular and tendinous structures. The incision was deepened to the bone, and the abscess appeared to be purulent fluid consistent with pus. The cortices of the bone was then removed with Alan an all necrotic tissue. After the abscess was drained, the area was irrigated with 3 L normal saline using cysto tubing. The area was then inspected and any areas of tracking, especially along the tendons were also drained. The wound bed was then prepped for placement of the dermal graft. Using a #15 blade and curette, the base of the wound has removal of all nonadherent and fibrotic material. Using an integra dermal graft, the graft was placed over the wound bed and a staple gun was used to adhere the graft to the wound edges. A delayed closure was then performed using 2-0 nylon after was deemed appropriate with no longer concern for infection. POSTOPERATIVE INFORMATION: The patient tolerated the above noted procedure and anesthesia well and was transferred to the PACU with vital signs stable, and vascular status intact with capillary refill intact to all digits. Patient can return to the floor and continue IV antibiotics. Patient can discharge home when deemed medically stable. Condition at Discharge: Good Final Diagnosis/Problems List Right leg necrotizing fasciitis Sepsis Pancytopenia due to MDS Discharge Disposition: Home Discharge Instruct/Medications Follow Up/Referral: Dr. Bell in 1 week Medications: see [facility] Discharge Statement: "Patient was advised to return to the ER or call 911 if any headaches, dizziness, shortness of breath, chest pain, abdominal pain, bleeding, fevers, or worsening of medical condition. Patient was counseled about treatment plan, medications, possible side effects, patientverbalized understanding. All questions were answered to the best of my ability. This discharge took greater then 30 minutes in planning, reviewing documentation, counseling the patient, and discussing with other team members." ASSESSMENT ASSESSMENT Assessment Same as above Date of Service: Apr 10, 2024 Billing Provider: VENKAT SMILEY MD Common Visit Codes: 90086-JHZ/OBS DISCH DAY >30min VENKAT SMILEY MD Apr 10, 2024 17:07
== END 2024-04-10 19:30 | disposition home or self-care (01) | DRG 871 ==
LOC: ER 15:16 → OVERFLOW 23:06 → WEST WING 23:12 → TELE-WESTW 03-30 19:01 → WEST WING 04-02 14:38
PROVIDERS: ADMIT Internal Medicine; ATTEND Internal Medicine
PROC: 30233N1 Transfusion of Nonautologous Red Blood Cells into Peripheral Vein, Percutaneous Approach (ICD-10-PCS; 2024-03-29)
PROC: 0Y9M0ZZ Drainage of Right Foot, Open Approach (ICD-10-PCS; principal; 2024-04-01 14:35)
PROC: 0Y9M0ZZ Drainage of Right Foot, Open Approach (ICD-10-PCS; 2024-04-03)
PROC: 30233R1 Transfusion of Nonautologous Platelets into Peripheral Vein, Percutaneous Approach (ICD-10-PCS; 2024-04-03)
PROC: 0Y9M0ZZ Drainage of Right Foot, Open Approach (ICD-10-PCS; 2024-04-05)
PROC: 0Y9M0ZZ Drainage of Right Foot, Open Approach (ICD-10-PCS; 2024-04-08)
PROC: 05HB33Z Insertion of Infusion Device into Right Basilic Vein, Percutaneous Approach (ICD-10-PCS; 2024-04-09)
PROC: B54MZZA Ultrasonography of Right Upper Extremity Veins, Guidance (ICD-10-PCS; 2024-04-09)
DX: A41.9 Sepsis, unspecified organism (principal); M72.6 Necrotizing fasciitis; N17.9 Acute kidney failure, unspecified; L03.115 Cellulitis of right lower limb; E87.20 Acidosis, unspecified; L02.415 Cutaneous abscess of right lower limb; L97.919 Non-pressure chronic ulcer of unspecified part of right lower leg with unspecified severity; D61.818 Other pancytopenia; Z20.822 Contact with and (suspected) exposure to COVID-19; J44.9 Chronic obstructive pulmonary disease, unspecified; D69.6 Thrombocytopenia, unspecified; G62.9 Polyneuropathy, unspecified; F20.9 Schizophrenia, unspecified; F17.210 Nicotine dependence, cigarettes, uncomplicated; D46.9 Myelodysplastic syndrome, unspecified; Z85.46 Personal history of malignant neoplasm of prostate; Z79.82 Long term (current) use of aspirin; Z79.899 Other long term (current) drug therapy; Z83.3 Family history of diabetes mellitus; Z82.49 Family history of ischemic heart disease and other diseases of the circulatory system
CPT/HCPCS: 36415; 71045; 73701; 80048; 80053; 80202; 80307; 81001; 82565; 83036; 83540; 83550; 83605; 83880; 84484; 85007; 85014; 85018; 85025; 85027; 85610; 85652; 85730; 86141; 86850; 86900; 86901; 86902; 86922; 87040; 87070; 87075; 87081; 87205; 87426; 87804; 93005; 93971; G0378; J1100; J2250; J2405; J2543; J2704; J3490

== ENCOUNTER 2024-04-24 05:43 | Inpatient (IN) | payer MEDICARE, MEDICAID ==
[~2024-04-24] VITALS: Ht 180.3 cm; Wt 78.2 kg
[2024-04-24] VITALS (15 sets, daily range): BP systolic 90–115; BP diastolic 42–67; PULSE 87–104; RESP 14–21; TEMP 98.6–100.2; O2SAT 94–98
[~2024-04-24 05:43] MED LIST changes: +CEPH250C PO; -CIP500T PO; -PRED20TA2 PO
--- NOTE | 2024-04-24 06:51 | ED.PDOC ---
History of Present Illness HPI Comments 68 y/o M, with PMHX of anemia, cancer, and COPD presents to the ED for CC of fatigue/weakness. Patient states, that he has been experiencing fatigue and weakness with associated right leg pain x1week. Patient relays, that he receives weekly blood transfusion at [facility] and believes his hemiglobin to be low. Patient comments, right leg pain due to previous operation in which sutures have not been removed. Patient denies fever, chills, body aches, or N/V/D. No other symptoms or modifying factors at this time. Chief Complaint: Dizziness Time Seen by MD: 06:05 Primary Care Provider: HIRAM Garza Notes: Nurses Notes, Medications, Allergies Allergies: Coded Allergies: NO KNOWN ALLERGIES (Unverified , 12/04/23) Home Meds Active Scripts Cephalexin (KEFLEX CAPSULE) 250 Mg Cp, 500 MG PO TID for 10 Days, #30 CAP Prov:VENKAT SMILEY MD 04/10/24 Hydrocodone-Acetaminophen (Hydrocodone Bitartrate/AC 10-325 mg) 1 Tab Tab, 1 TAB PO TIDP PRN for 7 Days, #21 TAB Prov:VENKAT SMILEY MD 04/10/24 Hydrocortone (Hydrocortisone 1%) 1 Applic Ap, 1 APPLIC TOP BID, #30 GRAMS Prov:JUAN ROGERS MD 02/08/24 Reported Medications Aspirin (Aspir-81) 81 Mg Tab, 1 TAB PO DAILY, #30 TAB 5 Refills 03/10/24 Midodrine HCl (Midodrine Hydrochloride) 5 Mg Tab, 1 TAB PO TID 01/30/24 Risperidone (Risperidone) 2 Mg Tab, 2 MG PO BID, TAB 12/05/23 Nicotine (Nicoderm 21MG/24HR) 1 Patch Ph, 1 PATCH TOP DAILY, #28 PATCH 1 Refill 12/05/23 Mirtazapine (Mirtazapine Oral Disintegrating Tablet) 45 Mg Tab, 1 TAB PO QPM, #30 TAB 1 Refill 12/05/23 Melatonin (KP MELATONIN) 3 Mg Tab, 3 MG PO HS, TAB 12/05/23 Leuprolide Acetate (3 Month) (Lupron Depot) 22.5 Mg Inj, 22.5 MG IM, INJ 12/05/23 Gabapentin (Gabapentin) 600 Mg Tab, 600 MG PO BID, TAB 12/05/23 Folic Acid (Folic Acid) 1 Mg Tab, 1 MG PO DAILY for 30 Days, MG 12/05/23 Fluticasone Furoate (Inhalatio (Arnuity Ellipta) 200 Mcg/Act Inh, 200 MCG IN, INHALER 12/05/23 Atorvastatin Calcium (ATORVASTATIN CALCIUM) 40 Mg Tab, 1 TAB PO DAILY, #30 TAB 5 Refills 12/05/23 Albuterol Sulfate (VENTOLIN MDI) 90 Mcg Ih, 90 MCG IN, INH 12/05/23 Information Source: Patient Mode of Arrival: Ambulatory Severity: Moderate Timing: Days Duration: Since onset Prehospital treatment: None Past Medical History PAST MEDICAL HISTORY: Anemia, Cancer, COPD, Schizophrenia Surgical History: Unknown Family History Family History: Reviewed,noncontributory to illness, Unknown Social History Smoker: Cigarettes Alcohol: Denies ETOH Use Drugs: Denies Drug Use Lives In: Home Constitutional: reports: fatigue, weakness; denies: chills, diaphoresis, fever, malaise, sweats, others EENTM: denies: blurred vision, double vision, ear bleeding, ear discharge, ear drainage, ear pain, ear ringing, eye pain, eye redness, hearing loss, mouth pain, mouth swelling, nasal discharge, nose bleeding, nose congestion, nose pain, photophobia, tearing, throat pain, throat swelling, voice changes, others Respiratory: denies: cough, hemoptysis, orthopnea, SOB at rest, shortness of breath, SOB with excertion, stridor, wheezing, others Cardiovascular: denies: chest pain, dizzy spells, diaphoresis, Dyspnea on exertion, edema, irregular heart beat, left arm pain, lightheadedness, palpitations, PND, syncope, others Gastrointestinal: denies: abdomen distended, abdominal pain, blood streaked bowels, constipated, diarrhea, dysphagia, difficulty swallowing, hematemesis, melena, nausea, poor appetite, poor fluid intake, rectal bleeding, rectal pain, vomiting, others Genitourinary: denies: burning, dysuria, flank pain, frequency, hematuria, incontinence, penile discharge, penile sore, pain, testicle pain, testicle swelling, urgency, others Neurological: reports: dizziness; denies: fainting, headache, left sided numbness, left sided weakness, numbness, paresthesia, pre-existing deficit, right sided numbness, right sided weakness, seizure, speech problems, tingling, tremors, weakness, others Musculoskeletal: denies: back pain, gout, joint pain, joint swelling, muscle pain, muscle stiffness, neck pain, others Integumetry: denies: bruises, change in color, change in hair/nails, dryness, laceration, lesions, lumps, rash, wounds, others Allergic/Immunocompromised: denies: Difficulty Healing, Frequent Infections, Hives, Itching, others Hematologic/Lymphatic: denies: anemia, blood clots, easy bleeding, easy bruising, swollen glands, others Endocrine: denies: excessive hunger, excessive sweating, excessive thirst, excessive urination, flushing, intolerance to cold, intolerance to heat, unexplained weight gain, unexplained weight loss, others Psychiatric: denies: anxiety, bipolar disorder, depression, hopeless, panic disorder, schizophrenia, sleepless, suicidal, others All Other Systems: Reviewed and Negative Physical Exam General Appearance: Moderate Distress HEENT: Normal ENT Inspection, Pharynx Normal, TMs Normal Neck: Full Range of Motion, Non-Tender, Normal, Normal Inspection Respiratory: Chest Non-Tender, Lungs Clear, No Accessory Muscle Use, No Respiratory Distress, Normal Breath Sounds Cardiovascular: No Edema, No JVD, No Murmur, No Gallop, Normal Peripheral Pulses, Tachycardia Breast Exam: Deferred Gastrointestinal: No Organomegaly, Non Tender, No Pulsatile Mass, Normal Bowel Sounds, Soft Genitalia: Deferred Pelvic: Deferred Rectal: Deferred Extremities: No calf tenderness, Normal capillary refill, Normal inspection, Normal range of motion, Non-tender, No pedal edema Musculoskeletal : Apperance: Normal Neurologic: Alert Cerebellar Function: NOT DONE Reflexes: NOT DONE Skin: Wounds (Right lower extremity with stitches) Peripheral Pulses: 3+ Radial (R), 3+ Radial (L) Lymphatic: No Adenopathy Was a procedure done? Was a procedure done?: No Differential Dx Considerations may include: ANEMIA, DEHYDRATION X-Ray, Labs, Meds, VS Vital Signs Date Time Temp Pulse Resp B/P (MAP) Pulse Ox O2 Delivery O2 Flow Rate FiO2 04/24/24 06:08 98.5 132 18 103/68 (80) 97 Lab Test 04/24/24 06:56 Range/Units White Blood Count 8.5 4.4-10.8 10^3/uL Red Blood Count 2.12 L 4.5-5.90 10^6/uL Hemoglobin 6.1 *L 13.5-17.5 g/dL Hematocrit 18.1 L 41.0-53.0 % Mean Corpuscular Volume 85.3 80.0-100.0 fL Mean Corpuscular Hemoglobin 28.8 28.0-32.0 pg Mean Corpuscular Hemoglobin Concent 33.8 32.0-36.0 g/dL Red Cell Distribution Width 15.8 H 11.8-14.3 % Platelet Count 53 L 140-450 10^3/uL Mean Platelet Volume 10.1 6.9-10.8 fL Neutrophils (%) (Auto) 82.0 H 37.0-80.0 % Lymphocytes (%) (Auto) 10.8 10.0-50.0 % Monocytes (%) (Auto) 1.7 0.0-12.0 % Eosinophils (%) (Auto) 5.0 0.0-7.0 % Basophils (%) (Auto) 0.5 0.0-2.0 % Neutrophils # (Auto) 6.9 1.6-8.6 10 ^3/uL Lymphocytes # (Auto) 0.9 0.4-5.4 10 ^3/uL Monocytes # (Auto) 0.1 0-1.3 10 ^3/uL Eosinophils # (Auto) 0.4 0-0.8 10 ^3/uL Basophils # (Auto) 0 0-0.2 10 ^3/uL Nucleated Red Blood Cells 0.0 % Sodium Level 136 136-145 mmol/L Potassium Level 3.9 3.5-5.1 mmol/L Chloride Level 105 98-107 mmol/L Carbon Dioxide Level 22 20-31 mmol/L Anion Gap 9 5-15 Blood Urea Nitrogen 11 9-23 mg/dL Creatinine 0.71 0.700-1.30 mg/dL Glomerular Filtration Rate Calc 101 >90 mL/min BUN/Creatinine Ratio 15.5 10.0-20.0 Serum Glucose 111 H 74-106 mg/dL Calcium Level 9.5 8.7-10.4 mg/dL [facility] [address] [facility] [address] Ph: [phone] DIAGNOSTIC IMAGING Diagnostic Imaging Report : [id number] Signed PATIENT: MEME ALONSO JR BACCT: [id number] UNIT: [id number] : 1955 LOC: ER ROOM / BED: / AGE / SEX: 68 / M ADM STATUS: REG ER SERVICE ORDERING PHYSICIAN: TEE ATKINS MD PROCEDURE(s): CXRP - CHEST PORTABLE REASON: sob ORDER NUMBER(s): [id number], ACCESSION NUMBER(s): [id number] XY CHEST PORTABLE, HISTORY: sob COMPARISON: XY CHEST XRAY 1 VIEW on DOS: 04/01/24, XY CHEST PORTABLE on DOS: 03/09/24, XY CHEST PORTABLE on DOS: 02/20/24 XY CHEST XRAY 1 VIEW on DOS: 04/01/24, XY CHEST PORTABLE on DOS: 03/09/24, XY CHEST PORTABLE on DOS: 02/20/24 TECHNICAL DATA: 1 view of the chest was obtained. FINDINGS: Lines and tubes: None Cardiomediastinal silhouette: normal Pulmonary vasculature: normal Lung expansion: normal Lung airspace: normal Lung interstitium: normal Pleura: normal Pneumothorax: no Bones: Unremarkable Other: no IMPRESSION: No acute intrathoracic abnormality. ATED BY: ANTHONY RAY MD DICTATED DATE/TIME: 04/24/24814 SIGNED BY: ANTHONY RAY MD SIGNED DATE/TIME: 04/24/24814 CC: Patient alert. Feeling weak dizzy. Vitals stable. Answering all questions. Has a wound in the right lower extremity was has been operate on a month ago. Stitches in place. He is tachycardic. Establish intravenous access. Was given fluids. Reviewed his previous visit. He does get blood transfusion. Explained to the patient. Continue cardiac monitoring. Time of 1ST Reevaluation: 06:35 Reevaluation 1ST: Unchanged Patient Education/Counseling: Diagnosis, Treatment Family Education/Counseling: No Family Present Additional Information I reviewed the following notes from patient's past medical encounters: 03/28/24 The following tests were ordered, and results were reviewed by me: LABS, CXR I reviewed and agreed with the following test results read by other providers: CXR I discussed treatment and results with medical personnel and: PATIENT Departure 1 Departure Time of Disposition: 07:12 Impression: Primary Impression: Symptomatic anemia Additional Impressions: Dizziness Cellulitis of right lower extremity Disposition: ADMITTED INPATIENT Admit to: Med Surg Condition: Guarded Critical Care Note Critical Care Time?: Yes (45 min-critical care time only) Critical care comment: Disease severe anemia Stability Stability form required: No Heart Score Heart Score: Heart Score Response (Comments) Value History N/A 0 EKG N/A 0 Age N/A 0 Risk Factors N/A 0 Troponin N/A 0 Total 0 I personally scribed for TEE ATKINS MD ([email or web address]) on 04/24/24 at 06:51. Electronically submitted by Maria Elena Barton ([employer]). I personally scribed for TEE ATKINS MD ([email or web address]) on 04/24/24 at 07:21. Electronically submitted by Maria Elena Barton ([employer]). I personally scribed for TEE ATKINS MD ([email or web address]) on 04/24/24 at 07:23. Electronically submitted by Maria Elena Barton ([employer]). I personally scribed for TEE ATKINS MD ([email or web address]) on 04/24/24 at 08:26. Electronically submitted by Maria Elena Barton ([employer]). TEE ATKINS MD Apr 24, 2024 06:51
[2024-04-24 07:27] LABS: Chloride 105 mmol/L (98-107); Potassium 3.9 mmol/L (3.5-5.1); Sodium 136 mmol/L (136-145)
[2024-04-24 07:28] LABS: Anion Gap 9 (5-15); Calcium 9.5 mg/dL (8.7-10.4); Carbon Dioxide 22 mmol/L (20-31)
[2024-04-24 07:33] LABS: BUN/Creatinine Ratio 15.5 (10.0-20.0); Blood Urea Nitrogen 11 mg/dL (9-23)
[2024-04-24 07:36] LABS: Eosinophils # (auto) 0.4 10 ^3/uL (0-0.8); Lymphocytes # (auto) 0.9 10 ^3/uL (0.4-5.4); Monocytes # (auto) 0.1 10 ^3/uL (0-1.3); Red Cell Distribution Width 15.8 % (11.8-14.3); White Blood Cell 8.5 10^3/uL (4.4-10.8)
[2024-04-24 07:39] LABS: Basophils # (auto) 0 10 ^3/uL (0-0.2); Basophils % (auto) 0.5 % (0.0-2.0); Hematocrit 18.1 % (41.0-53.0); Lymphocytes % (auto) 10.8 % (10.0-50.0); Mean Corpuscular Hemoglobin 28.8 pg (28.0-32.0); Mean Corpuscular Hgb Conc. 33.8 g/dL (32.0-36.0); Mean Corpuscular Volume 85.3 fL (80.0-100.0); Monocytes % (auto) 1.7 % (0.0-12.0); Neutrophils # (auto) 6.9 10 ^3/uL (1.6-8.6); Platelet Count (auto) 53 10^3/uL (140-450); Red Blood Cells 2.12 10^6/uL (4.5-5.90)
[2024-04-24 07:50] LABS: Hemoglobin 6.1 g/dL (13.5-17.5)
[2024-04-24 07:51] LABS: Glucose 111 mg/dL (74-106)
--- NOTE | 2024-04-24 08:18 | DVH ---
XY CHEST PORTABLE, HISTORY: sob COMPARISON: XY CHEST XRAY 1 VIEW on DOS: 04/01/24, XY CHEST PORTABLE on DOS: 03/09/24, XY CHEST PORTAB LE on DOS: 02/20/24 XY CHEST XRAY 1 VIEW on DOS: 04/01/24, XY CHEST PORTABLE on DOS: 03/09/24, XY CHEST PORTABLE on DOS: 1 04/22/23 TECHNICAL DATA: 1 view of the chest was obtained. FINDINGS: Lines and tubes: None Cardiomediastinal silhouette: normal Pulmonary vasculature: normal Lung expansion: normal Lung airspace: normal Lung interstitium: normal Pleura: normal Pneumothorax: no Bones: Unremarkable Other: no IMPRESSION: No acute intrathoracic abnormality.
[2024-04-24] MEDS: SODIUM CHLORIDE 0.9% 1,000 ML IV ONE (08:34)
[2024-04-24] MEDS: HYDROcodone-ACET 5/325MG TAB PO ONE (08:40)
[2024-04-24] MEDS: MECLIZINE HCL 25 MG TAB PO ONE (08:40)
--- NOTE | 2024-04-24 16:14 | DVHHP2 ---
History of Present Illness Reason for Visit: Generalized weakness History of Present Illness Eugene Alejandro Jr is a 68-year-old male with past medical history of prostate cancer, COPD, schizophrenia, and severe anemia, who came into the hospital due to generalized weakness and fatigue. Patient is seen frequently for severe an emia requiring blood transfusion. Patient states he began feeling weak, and lethargic and figured he needed to come to the hospital for blood transfusion. Patient states he was supposed to follow up with the surgeon who did the surgery on his leg today,but he did not make it there. State she needs the dressing on his leg changed. Pulmonary: COPD Heme/Onc: Cancer Psych: Schizophrenia Past Surgical History: Other (Prostate), Tonsillectomy Smoke: <1 pack per day ALCOHOL: rare Drugs: None Lives: with Family Domestic Violence: Neg Review of Systems Constitutional: Yes: Weakness, Malaise; No: Fever, Chills, Sweats, Other Eyes: No: Pain, Vision change, Conjunctivae inflammation, Eyelid inflammation, Other, Redness ENT: No: Ear pain, Ear discharge, Nose pain, Nose discharge, Nose congestion, Mouth pain, Mouth swelling, Throat pain, Throat swelling, Other Respiratory: No: Cough, Dry, Shortness of breath, SOB with excertion, Wheezing, Hemoptysis, Pleuritic Pain, Sputum, Wheezing, Other Cardiovascular: No: Chest Pain, Palpitations, Orthopnea, Paroxysmal Noc. Dyspnea, Edema, Lt Headedness, Other Gastrointestinal: No: Nausea, Vomiting, Abdominal Pain, Diarrhea, Constipation, Melena, Hematochezia, Other Genitourinary: No Dysuria, No Frequency, No Incontinence, No Hematuria, No Retention, No Other Musculoskeletal: No: other, neck pain, shoulder pain, arm pain, back pain, hand pain, leg pain, foot pain Skin: No: Rash, Lesions, Jaundice, Bruising, Other Neurological: No: Weakness, Numbness, Incoordination, Change in speech, Confusion, Seizures, Other Allergies: Coded Allergies: NO KNOWN ALLERGIES (Unverified , 12/04/23) Exam Vital Signs Vital Signs Date Time Temp Pulse Resp B/P (MAP) Pulse Ox O2 Delivery O2 Flow Rate FiO2 04/24/24 15:11 98 15 100/52 (68) 94 04/24/24 14:50 99.3 99.3 04/24/24 08:45 Room Air 04/24/24 08:38 0 21 General Appearance: Alert, Oriented X3, Cooperative, mild distress HEENT: Atraumatic, PERRLA, Mucous membr. moist/pink Respiratory: Clear to auscultation, Normal air movement Cardiovascular: Regular rate, Normal S1, Normal S2, No murmurs Abdominal: Normal bowel sounds, Soft, No tenderness Extremities: No clubbing, No cyanosis, No edema, Normal pulses Skin: No rashes, No breakdown, No significant lesion Neuro: Normal gait, Normal speech, Strength at /5 X4 ext Psych/Mental Status: Mental status NL, Mood NL Labs/Xrays Labs Test 04/24/24 06:56 Range/Units White Blood Count 8.5 4.4-10.8 10^3/uL Red Blood Count 2.12 L 4.5-5.90 10^6/uL Hemoglobin 6.1 *L 13.5-17.5 g/dL Hematocrit 18.1 L 41.0-53.0 % Mean Corpuscular Volume 85.3 80.0-100.0 fL Mean Corpuscular Hemoglobin 28.8 28.0-32.0 pg Mean Corpuscular Hemoglobin Concent 33.8 32.0-36.0 g/dL Red Cell Distribution Width 15.8 H 11.8-14.3 % Platelet Count 53 L 140-450 10^3/uL Mean Platelet Volume 10.1 6.9-10.8 fL Neutrophils (%) (Auto) 82.0 H 37.0-80.0 % Lymphocytes (%) (Auto) 10.8 10.0-50.0 % Monocytes (%) (Auto) 1.7 0.0-12.0 % Eosinophils (%) (Auto) 5.0 0.0-7.0 % Basophils (%) (Auto) 0.5 0.0-2.0 % Neutrophils # (Auto) 6.9 1.6-8.6 10 ^3/uL Lymphocytes # (Auto) 0.9 0.4-5.4 10 ^3/uL Monocytes # (Auto) 0.1 0-1.3 10 ^3/uL Eosinophils # (Auto) 0.4 0-0.8 10 ^3/uL Basophils # (Auto) 0 0-0.2 10 ^3/uL Nucleated Red Blood Cells 0.0 % Sodium Level 136 136-145 mmol/L Potassium Level 3.9 3.5-5.1 mmol/L Chloride Level 105 98-107 mmol/L Carbon Dioxide Level 22 20-31 mmol/L Anion Gap 9 5-15 Blood Urea Nitrogen 11 9-23 mg/dL Creatinine 0.71 0.700-1.30 mg/dL Glomerular Filtration Rate Calc 101 >90 mL/min BUN/Creatinine Ratio 15.5 10.0-20.0 Serum Glucose 111 H 74-106 mg/dL Calcium Level 9.5 8.7-10.4 mg/dL XY CHEST PORTABLE, FINDINGS: Lines and tubes: None Cardiomediastinal silhouette: normal Pulmonary vasculature: normal Lung expansion: normal Lung airspace: normal Lung interstitium: normal Pleura: normal Pneumothorax: no Bones: Unremarkable Other: no IMPRESSION: No acute intrathoracic abnormality. Assessment/Plan Assessment/Plan Assessment: Symptomatic anemia, COPD, Schizophrenia, Plan: Admit to Med-Surg, Transfuse 2 units PRBC, Wound care consult, Breathing treatments as needed, Home medications reconciled, Plan discussed with: Patient My Orders Orders - ANNIKA SYED Procedure Category Date Status Time Admit ADMIT 04/24/24 Verified 16:01 Code Status CODE 04/24/24 Verified 16:01 Sodium Chloride Lock PHA 04/24/24 Verified (Saline Lock Ns) 22:00 Hydrocodone-Acet PHA 04/24/24 Verified 5/325mg Tab (Titus 16:15 Date of Service: Apr 24, 2024 Billing Provider: ANNIKA SYED Common Visit Codes: [id number] INP/OBS CARE (MOD) ANNIKA SYED Apr 24, 2024 16:14
[2024-04-24] MEDS ORDERED: ACETAMINOPHEN 325 MG TAB PO PRN (16:15)
[2024-04-24] MEDS ORDERED: ALBUTEROL SULF 2.5 MG/0.5ML(0.5%) NEB SOLN NEB PRN (16:15)
[2024-04-24] MEDS ORDERED: DOCUSATE SOD 100 MG CAP PO PRN (16:15)
[2024-04-24] MEDS ORDERED: IPRATROPIUM BROM 0.5 MG/2.5ML INH SOL NEB PRN (16:15)
[2024-04-24] MEDS ORDERED: ONDANSETRON HCL 4 MG/2 ML VIAL IV PRN (16:15)
[2024-04-24 20:21] LABS: Basophils # (auto) 0.1 10 ^3/uL (0-0.2); Mean Corpuscular Hemoglobin 28.8 pg (28.0-32.0); Monocytes # (auto) 0.1 10 ^3/uL (0-1.3); Nucleated Red Blood Cells % 0.1 %
[2024-04-24 20:24] LABS: Basophils % (auto) 1.1 % (0.0-2.0); Eosinophils # (auto) 0.7 10 ^3/uL (0-0.8); Eosinophils % (auto) 9.4 % (0.0-7.0); Hematocrit 20.2 % (41.0-53.0); Lymphocytes # (auto) 0.8 10 ^3/uL (0.4-5.4); Lymphocytes % (auto) 12.2 % (10.0-50.0); Mean Corpuscular Hgb Conc. 34.2 g/dL (32.0-36.0); Mean Corpuscular Volume 84.4 fL (80.0-100.0); Monocytes % (auto) 1.7 % (0.0-12.0); Neutrophils # (auto) 5.2 10 ^3/uL (1.6-8.6); Neutrophils % (auto) 75.6 % (37.0-80.0); Platelet Count (auto) 40 10^3/uL (140-450); Red Blood Cells 2.39 10^6/uL (4.5-5.90); Red Cell Distribution Width 15.4 % (11.8-14.3); White Blood Cell 6.9 10^3/uL (4.4-10.8)
[2024-04-24 20:35] LABS: Urine Bacteria None Seen /hpf (None Seen)
[2024-04-24 20:52] LABS: Hemoglobin 6.9 g/dL (13.5-17.5)
[2024-04-24 20:57] LABS: Urine Blood Negative /uL (Negative); Urine Clarity Clear (Clear); Urine Color Yellow (Yellow); Urine Mucus FEW (None Seen); Urine Protein, UAD Negative (Negative); Urine Specific Gravity 1.021 (1.001-1.035); Urine Squamous Epithelial Cell None Seen /hpf (<5); Urine Urobilinogen 2 mg/dL (Negative); Urine WBC 1 /HPF (0-3); Urine pH 6.5 (5.0-9.0)
[2024-04-24] MEDS: ATORVASTATIN 20 MG TAB PO SCH (21:06)
[2024-04-24] MEDS: risperiDONE 1 MG TAB PO SCH (21:06)
[2024-04-24] MEDS: HYDROcodone-ACET 5/325MG TAB PO PRN (21:24)
[2024-04-24] MEDS: SODIUM CHLOR 0.9% PF (SALINE LOCK) 10ML VIAL/SYR IV SCH (21:24)
[2024-04-24 21:53] LABS: Anisocytosis Slight; Platelet Estimate Decreased
[2024-04-24] MEDS ORDERED: RISPERIDONE 2 MG PO SCH (22:00)
[2024-04-25] VITALS (9 sets, daily range): BP systolic 89–118; BP diastolic 46–69; PULSE 81–94; RESP 18–19; TEMP 98–98.8; O2SAT 95–99
[2024-04-25] MEDS: ASPirin-EC 81 mg tab PO SCH (09:33)
[2024-04-25] MEDS ORDERED: risperiDONE 1 MG TAB PO SCH (10:00)
[2024-04-25] MEDS ORDERED: PATIENTS OWN MEDICATION (Atorvastatin Calcium 1 TAB) PO SCH (10:00)
[2024-04-25 10:18] LABS: Hematocrit 26.5 % (41.0-53.0); Hemoglobin 8.9 g/dL (13.5-17.5); Mean Corpuscular Hgb Conc. 33.6 g/dL (32.0-36.0); Mean Corpuscular Volume 86.3 fL (80.0-100.0); Platelet Count (auto) 42 10^3/uL (140-450); Red Blood Cells 3.07 10^6/uL (4.5-5.90); Red Cell Distribution Width 15.6 % (11.8-14.3); White Blood Cell 9.4 10^3/uL (4.4-10.8)
[2024-04-25 10:20] LABS: Basophils % (manual) 0 (0.0-2.0); Blast Cells 0; Myelocytes % 0; Promyelocytes % 0; Reactive Lymphocytes 0
[2024-04-25 10:29] LABS: Alanine Aminotransferase 29 U/L (7-40); Alkaline Phosphatase 80 U/L (46-116); Anion Gap 8 (5-15); Aspartate Aminotransferase 19 U/L (13-40); BUN/Creatinine Ratio 15.9 (10.0-20.0); Blood Urea Nitrogen 10 mg/dL (9-23); Carbon Dioxide 22 mmol/L (20-31); Potassium 4.2 mmol/L (3.5-5.1); Sodium 138 mmol/L (136-145)
[2024-04-25 10:30] LABS: Bilirubin, Total 0.9 mg/dL (0.2-1.0)
[2024-04-25 10:42] LABS: Albumin 3.1 g/dL (3.2-4.8); Calcium 8.4 mg/dL (8.7-10.4); Chloride 108 mmol/L (98-107); Glucose 113 mg/dL (74-106); Total Protein 5.7 g/dL (5.7-8.2)
[2024-04-25 12:16] LABS: Band Neutrophils % (manual) 5; Eosinophils % (manual) 9 (0-7); Lymphocytes % (manual) 15 (10.0-50.0); Metamyelocytes % 1; Monocytes % (manual) 3 (0-12)
[2024-04-25 12:17] LABS: Anisocytosis Slight; Platelet Estimate Decreased
--- NOTE | 2024-04-25 13:06 | DVHPN2 ---
Reviewed: Care Plan, H&P, Labs, Medications, Previous Orders, Radiology Changes from previous H/P or p: No Changes Eyes: No Pain, No Vision change, No Conjunctivae inflammation, No Eyelid inflammation, No Other, No Redness ENT: No Ear pain, No Ear discharge, No Nose pain, No Nose discharge, No Nose congestion, No Mouth pain, No Mouth swelling, No Throat pain, No Throat swelling, No Other Cardiovascular: No Chest Pain, No Palpitations, No Orthopnea, No Paroxysmal Noc. Dyspnea, No Edema, No Lt Headedness, No Other Respiratory: No Cough, No Dry, No Shortness of breath, No SOB with excertion, No Wheezing, No Hemoptysis, No Pleuritic Pain, No Sputum, No Other Gastrointestinal: No Nausea, No Vomiting, No Abdominal Pain, No Diarrhea, No Constipation, No Melena, No Hematochezia, No Other Genitourinary: No Dysuria, No Frequency, No Incontinence, No Hematuria, No Retention, No Other Musculoskeletal: No other, No neck pain, No shoulder pain, No arm pain, No back pain, No hand pain, No leg pain, No foot pain Skin: No Rash, No Lesions, No Jaundice, No Bruising, No Other Objective Vitals Vital Signs Date Time Temp Pulse Resp B/P (MAP) Pulse Ox O2 Delivery O2 Flow Rate FiO2 04/25/24 09:43 98 Room Air 0.0 04/25/24 09:43 21 04/25/24 08:30 98.5 81 18 118/60 (79) 98.5 Intake/Output Intake and Output 04/25/24 07:00 Intake Total 1800 ml Output Total 1250 ml Balance 550 ml Intake Oral 250 ml Tube Feeding 0 ml Blood Product 1550 ml Other 0 ml Output Urine Total 1250 ml Stool Total 0 ml Urine/Stool Mix 0 ml Gastric Drainage Total 0 ml Emesis 0 ml Chest Tube Drainage Total 0 ml Drainage Total 0 ml Other 0 ml # Bowel Movements 1 Medications Current Medications Medications Dose Ordered Sig/Fabricio Route Start Time Stop Time Status Last Admin Dose Admin Sodium Chloride 10 ml Q8HR IV 04/24/24 22:00 04/25/24 05:14 10 ML Acetaminophen/ Hydrocodone Bitart 1 tab Q4HP PRN PO 04/24/24 16:15 04/25/24 09:34 1 TAB Ondansetron HCl 4 mg Q4HP PRN IV 04/24/24 16:15 Docusate Sodium 100 mg BIDPRN PRN PO 04/24/24 16:15 Acetaminophen 650 mg Q6HP PRN PO 04/24/24 16:15 Aspirin 81 mg DAILY PO 04/25/24 10:00 04/25/24 09:33 81 MG Patient Own Medication 1 tab DAILY PO 04/25/24 10:00 UNV Patient Own Medication 2 mg BID PO 04/24/24 22:00 UNV Albuterol 2.5 mg Q6HPRN PRN NEB 04/24/24 16:15 Ipratropium [place] 0.5 mg Q6HPRN PRN NEB 04/24/24 16:15 Atorvastatin Calcium 40 mg HS PO 04/24/24 22:00 04/24/24 21:06 40 MG Risperidone 2 mg BID PO 04/24/24 22:00 04/25/24 09:35 2 MG Laboratory Results Laboratory Tests 04/25/24 09:55 Chemistry Test 04/25/24 09:55 Albumin 3.1 g/dL (3.2-4.8) L Calcium Level 8.4 mg/dL (8.7-10.4) L Total Protein 5.7 g/dL (5.7-8.2) LFT Test 04/25/24 09:55 Alanine Aminotransferase (ALT) 29 U/L (7-40) Alkaline Phosphatase 80 U/L (46-116) Aspartate Amino Transferase (AST) 19 U/L (13-40) Total Bilirubin 0.9 mg/dL (0.2-1.0) Urinalysis Test 04/24/24 13:00 Urine Color Yellow (Yellow) Urine Clarity Clear (Clear) Urine pH 6.5 (5.0-9.0) Urine Specific [place] 1.021 (1.001-1.035) Urine Protein Negative (Negative) Urine Ketones Negative (Negative) Urine Blood Negative /uL (Negative) Urine Nitrite Negative (Negative) Urine Bilirubin Negative (Negative) Urine Urobilinogen 2 mg/dL (Negative) H Urine Leukocyte Esterase Negative /uL (Negative) Urine RBC <1 /hpf (0 - 3) Urine Microscopic WBC 1 /HPF (0-3) Urine Squamous Epithelial Cells None seen /hpf (<5) Urine Bacteria None seen /hpf (None Seen) Urine Mucus Few (None Seen) Urine Glucose Normal mg/dL (Normal) Labs and/or images reviewed: Labs reviewed by me, Image(s) reviewed by me Assessment/Plan Assessment/Plan Acute Symptomatic anemia hemoglobin 6.1 improved to 8.9 after 3 units RBC transfusion History of chronic anemia with recurrent blood transfusions, patient is following Dr. Wanda Haque Frequent admissions Acute on chronic COPD exacerbation History of prostate cancer Schizophrenia Chronic right lower leg wound and the treatment of Dr. Roth Feels better and wants to go home Plan discussed with: Patient Date of Service: Apr 25, 2024 Billing Provider: SHARON LUEVANO MD Common Visit Codes: [id number] INP/OBS CARE(HIGH) SHARON LUEVANO MD Apr 25, 2024 13:06
--- NOTE | 2024-04-25 13:10 | DVHDS2 ---
Discharge Summary Date of Admission Apr 24, 2024 at 16:01 Date of Discharge: Apr 25, 2024 Admitting Diagnosis Severe anemia Wounds: None Labs/Diagnostic Data: Laboratory Results Test 04/25/24 09:55 04/24/24 19:31 04/24/24 13:00 White Blood Count 9.4 10^3/uL (4.4-10.8) Red Blood Count 3.07 10^6/uL (4.5-5.90) Hemoglobin 8.9 g/dL (13.5-17.5) Hematocrit 26.5 % (41.0-53.0) Mean Corpuscular Volume 86.3 fL (80.0-100.0) Mean Corpuscular Hemoglobin 29.0 pg (28.0-32.0) Mean Corpuscular Hemoglobin Concent 33.6 g/dL (32.0-36.0) Red Cell Distribution Width 15.6 % (11.8-14.3) Platelet Count 42 10^3/uL (140-450) Mean Platelet Volume 10.7 fL (6.9-10.8) Neutrophils (%) (Auto) % (37.0-80.0) Lymphocytes (%) (Auto) % (10.0-50.0) Monocytes (%) (Auto) % (0.0-12.0) Basophils (%) (Auto) % (0.0-2.0) Neutrophils # (Auto) 10 ^3/uL (1.6-8.6) Lymphocytes # (Auto) 10 ^3/uL (0.4-5.4) Monocytes # (Auto) 10 ^3/uL (0-1.3) Differential Total Cells Counted 100.0 (100) Neutrophils % (Manual) 67 (37.0-80.0) Band Neutrophils % (Manual) 5 Lymphocytes % (Manual) 15 (10.0-50.0) Monocytes % (Manual) 3 (0-12) Eosinophils % (Manual) 9 (0-7) Basophils % (Manual) 0 (0.0-2.0) Metamyelocytes % (manual) 1 Myelocytes % (Manual) 0 Promyelocytes % (Manual) 0 Blast Cells % (Manual) 0 Reactive Lymphocytes 0 Platelet Estimate Decreased Anisocytosis (manual) Slight Sodium Level 138 mmol/L (136-145) Potassium Level 4.2 mmol/L (3.5-5.1) Chloride Level 108 mmol/L (98-107) Carbon Dioxide Level 22 mmol/L (20-31) Anion Gap 8 (5-15) Blood Urea Nitrogen 10 mg/dL (9-23) Creatinine 0.63 mg/dL (0.700-1.30) Glomerular Filtration Rate Calc 105 mL/min (>90) BUN/Creatinine Ratio 15.9 (10.0-20.0) Serum Glucose 113 mg/dL (74-106) Calcium Level 8.4 mg/dL (8.7-10.4) Total Bilirubin 0.9 mg/dL (0.2-1.0) Aspartate Amino Transferase (AST) 19 U/L (13-40) Alanine Aminotransferase (ALT) 29 U/L (7-40) Alkaline Phosphatase 80 U/L (46-116) Total Protein 5.7 g/dL (5.7-8.2) Albumin 3.1 g/dL (3.2-4.8) Eosinophils (%) (Auto) 9.4 % (0.0-7.0) Eosinophils # (Auto) 0.7 10 ^3/uL (0-0.8) Basophils # (Auto) 0.1 10 ^3/uL (0-0.2) Nucleated Red Blood Cells 0.1 % Urine Color Yellow (Yellow) Urine Clarity Clear (Clear) Urine pH 6.5 (5.0-9.0) Urine Specific [place] 1.021 (1.001-1.035) Urine Protein Negative (Negative) Urine Ketones Negative (Negative) Urine Blood Negative /uL (Negative) Urine Nitrite Negative (Negative) Urine Bilirubin Negative (Negative) Urine Urobilinogen 2 mg/dL (Negative) Urine Leukocyte Esterase Negative /uL (Negative) Urine RBC <1 /hpf (0 - 3) Urine Microscopic WBC 1 /HPF (0-3) Urine Squamous Epithelial Cells None seen /hpf (<5) Urine Bacteria None seen /hpf (None Seen) Urine Mucus Few (None Seen) Urine Glucose Normal mg/dL (Normal) Other Laboratory Tests 04/25/24 09:55 Brief Hx & Hospital Course: [place] male with a history of prostate cancer COPD schizophrenia chronic anemia with a recurrent blood transfusions and the treatment of Dr. jerome will Namenda chronic right leg wound and the treatment of Podiatry Dr. Bell discharged from this hospital on 04/10/2024 came in complaining of generalized weakness found to have hemoglobin 6.1 improved to 8.9 after 3 units RBC transfusion and patient feels better and wants to go home. Discharged home. He will continue all his home medications follow up with the Dr. Wanda Haque and primary Dr Dr. Bosch Consults/Reason for consult none Operations or Procedures RBC transfusion Condition at Discharge: Fair Final Diagnosis/Problems List Acute Symptomatic anemia hemoglobin 6.1 improved to 8.9 after 3 units RBC transfusion History of chronic anemia with recurrent blood transfusions, patient is following Dr. Wanda Haque Frequent admissions Acute on chronic COPD exacerbation History of prostate cancer Schizophrenia Chronic right lower leg wound and the treatment of Dr. Roth Discharge Disposition: Home Discharge Instruct/Medications Diet: Cardiac 2g Na,low cholest Activity: Light activity Follow Up/Referral: Follow up with your primary Dr Dr. veras Resume all previous home medication Medications: none 39 (Time taken for discharge summary 39 minutes) Discharge Statement: "Patient was advised to return to the ER or call 911 if any headaches, dizziness, shortness of breath, chest pain, abdominal pain, bleeding, fevers, or worsening of medical condition. Patient was counseled about treatment plan, medications, possible side effects, patientverbalized understanding. All questions were answered to the best of my ability. This discharge took greater then 30 minutes in planning, reviewing documentation, counseling the patient, and discussing with other team members." ASSESSMENT ASSESSMENT Hospital Course Uneventful Assessment Acute Symptomatic anemia hemoglobin 6.1 improved to 8.9 after 3 units RBC transfusion History of chronic anemia with recurrent blood transfusions, patient is following Dr. Wanda Haque Frequent admissions Acute on chronic COPD exacerbation History of prostate cancer Schizophrenia Chronic right lower leg wound and the treatment of Dr. Roth Date of Service: Apr 25, 2024 Billing Provider: SHARON LUEVANO MD Common Visit Codes: [id number] DISCH DAY >30min SHARON LUEVANO MD Apr 25, 2024 13:10
== END 2024-04-25 15:54 | disposition home or self-care (01) | DRG 812 ==
LOC: ER 05:43 → OVERFLOW 16:01 → WEST WING 20:56
PROVIDERS: ADMIT Nurse Practitioner Family; ATTEND Family Medicine
PROC: 30233N1 Transfusion of Nonautologous Red Blood Cells into Peripheral Vein, Percutaneous Approach (ICD-10-PCS; principal; 2024-04-24)
DX: D64.9 Anemia, unspecified (principal); J44.1 Chronic obstructive pulmonary disease with (acute) exacerbation; L03.115 Cellulitis of right lower limb; F17.210 Nicotine dependence, cigarettes, uncomplicated; F20.9 Schizophrenia, unspecified; Z85.46 Personal history of malignant neoplasm of prostate; Z79.82 Long term (current) use of aspirin; Z79.899 Other long term (current) drug therapy
CPT/HCPCS: 36415; 36430; 71045; 80048; 80053; 81001; 85007; 85025; 85027; 86850; 86870; 86900; 86901; 86902; 86922; 96360; 99291; G0378

== ENCOUNTER 2024-05-07 05:35 | Inpatient (IN) | payer MEDICARE, MEDICAID ==
[~2024-05-07] VITALS: Ht 180.3 cm; Wt 84.0 kg
--- NOTE | 2024-05-07 07:06 | ED.PDOC ---
History of Present Illness HPI Comments 68 year old male presents to the ED with chief complaint of transfusions. Patient reports that he is mainly here today to have a blood transfusion, with his last one being approximately 2 weeks ago. Patient relays that he has also been experiencing symptoms of chest pain, SOB, dizziness, and right leg swelling that has been painful as well. Patient denies any N/V/D, abdominal pain, headache, fever, chills, numbness, or weakness. Chief Complaint: Dizziness Time Seen by MD: 07:04 Primary Care Provider: HIRAM Garza Notes: Nurses Notes, Medications, Allergies Allergies: Coded Allergies: NO KNOWN ALLERGIES (Unverified , 12/04/23) Home Meds Active Scripts Cephalexin (KEFLEX CAPSULE) 250 Mg Cp, 500 MG PO TID for 10 Days, #30 CAP Prov:VENKAT SMILEY MD 04/10/24 Hydrocodone-Acetaminophen (Hydrocodone Bitartrate/AC 10-325 mg) 1 Tab Tab, 1 TAB PO TIDP PRN for 7 Days, #21 TAB Prov:VENKAT SMILEY MD 04/10/24 Hydrocortone (Hydrocortisone 1%) 1 Applic Ap, 1 APPLIC TOP BID, #30 GRAMS Prov:JUNA ROGERS MD 02/08/24 Reported Medications Aspirin (Aspir-81) 81 Mg Tab, 1 TAB PO DAILY, #30 TAB 5 Refills 03/10/24 Midodrine HCl (Midodrine Hydrochloride) 5 Mg Tab, 1 TAB PO TID 01/30/24 Risperidone (Risperidone) 2 Mg Tab, 2 MG PO BID, TAB 12/05/23 Nicotine (Nicoderm 21MG/24HR) 1 Patch Ph, 1 PATCH TOP DAILY, #28 PATCH 1 Refill 12/05/23 Mirtazapine (Mirtazapine Oral Disintegrating Tablet) 45 Mg Tab, 1 TAB PO QPM, #30 TAB 1 Refill 12/05/23 Melatonin (KP MELATONIN) 3 Mg Tab, 3 MG PO HS, TAB 12/05/23 Leuprolide Acetate (3 Month) (Lupron Depot) 22.5 Mg Inj, 22.5 MG IM, INJ 12/05/23 Gabapentin (Gabapentin) 600 Mg Tab, 600 MG PO BID, TAB 12/05/23 Folic Acid (Folic Acid) 1 Mg Tab, 1 MG PO DAILY for 30 Days, MG 12/05/23 Fluticasone Furoate (Inhalatio (Arnuity Ellipta) 200 Mcg/Act Inh, 200 MCG IN, INHALER 12/05/23 Atorvastatin Calcium (ATORVASTATIN CALCIUM) 40 Mg Tab, 1 TAB PO DAILY, #30 TAB 5 Refills 12/05/23 Albuterol Sulfate (VENTOLIN MDI) 90 Mcg Ih, 90 MCG IN, INH 12/05/23 Information Source: Patient Mode of Arrival: Ambulatory Severity: Moderate Timing: Days Duration: Since onset Prehospital treatment: None Past Medical History PAST MEDICAL HISTORY: Anemia, Cancer, COPD, Schizophrenia Surgical History: Unknown Family History Family History: Reviewed,noncontributory to illness, Unknown Social History Smoker: Cigarettes Alcohol: Denies ETOH Use Drugs: Denies Drug Use Lives In: Home Constitutional: denies: chills, diaphoresis, fatigue, fever, malaise, sweats, weakness, others EENTM: denies: blurred vision, double vision, ear bleeding, ear discharge, ear drainage, ear pain, ear ringing, eye pain, eye redness, hearing loss, mouth pain, mouth swelling, nasal discharge, nose bleeding, nose congestion, nose pain, photophobia, tearing, throat pain, throat swelling, voice changes, others Respiratory: reports: shortness of breath; denies: cough, hemoptysis, orthopnea, SOB at rest, SOB with excertion, stridor, wheezing, others Cardiovascular: reports: chest pain, edema; denies: dizzy spells, diaphoresis, Dyspnea on exertion, irregular heart beat, left arm pain, lightheadedness, palpitations, PND, syncope, others Gastrointestinal: denies: abdomen distended, abdominal pain, blood streaked bowels, constipated, diarrhea, dysphagia, difficulty swallowing, hematemesis, melena, nausea, poor appetite, poor fluid intake, rectal bleeding, rectal pain, vomiting, others Genitourinary: denies: burning, dysuria, flank pain, frequency, hematuria, incontinence, penile discharge, penile sore, pain, testicle pain, testicle swelling, urgency, others Neurological: reports: dizziness; denies: fainting, headache, left sided numbness, left sided weakness, numbness, paresthesia, pre-existing deficit, right sided numbness, right sided weakness, seizure, speech problems, tingling, tremors, weakness, others Musculoskeletal: reports: others (Rt leg pain); denies: back pain, gout, joint pain, joint swelling, muscle pain, muscle stiffness, neck pain Integumetry: denies: bruises, change in color, change in hair/nails, dryness, laceration, lesions, lumps, rash, wounds, others Allergic/Immunocompromised: denies: Difficulty Healing, Frequent Infections, Hives, Itching, others Hematologic/Lymphatic: denies: anemia, blood clots, easy bleeding, easy bruising, swollen glands, others Endocrine: denies: excessive hunger, excessive sweating, excessive thirst, excessive urination, flushing, intolerance to cold, intolerance to heat, unexplained weight gain, unexplained weight loss, others Psychiatric: denies: anxiety, bipolar disorder, depression, hopeless, panic disorder, schizophrenia, sleepless, suicidal, others All Other Systems: Reviewed and Negative Physical Exam General Appearance: Moderate Distress, Normal HEENT: Normal ENT Inspection, PERRL/EOMI Neck: Full Range of Motion, Non-Tender, Normal, Normal Inspection Respiratory: Chest Non-Tender, Lungs Clear, No Accessory Muscle Use, No Respiratory Distress, Normal Breath Sounds Cardiovascular: No Edema, No JVD, No Murmur, No Gallop, Normal Peripheral Pulses, Regular Rate/Rhythm Breast Exam: Deferred Gastrointestinal: No Organomegaly, Non Tender, No Pulsatile Mass, Normal Bowel Sounds, Soft Genitalia: Deferred Pelvic: Deferred Rectal: Deferred Extremities: No calf tenderness, Normal capillary refill, Normal range of motion, Non-tender, Swelling (Right lower extremity) Musculoskeletal : Apperance: Normal Neurologic: Alert, skein yarn dyer II-XII nml as Tested, No Motor Deficits, Normal Affect, Normal Mood, No Sensory Deficits Cerebellar Function: Normal Reflexes: Normal Skin: Dry, Normal Color, Warm Peripheral Pulses: 3+ Radial (R), 3+ Radial (L) Lymphatic: No Adenopathy Was a procedure done? Was a procedure done?: No Differential Dx Considerations may include: Anemia Electrolyte imbalance X-Ray, Labs, Meds, VS Vital Signs Date Time Temp Pulse Resp B/P (MAP) Pulse Ox O2 Delivery O2 Flow Rate FiO2 05/07/24 05:55 98.8 101 14 109/66 (80) 100 Lab Test 05/07/24 07:54 Range/Units White Blood Count Pending Red Blood Count Pending Hemoglobin Pending Hematocrit Pending Mean Corpuscular Volume Pending Mean Corpuscular Hemoglobin Pending Mean Corpuscular Hemoglobin Concent Pending Red Cell Distribution Width Pending Platelet Count Pending Mean Platelet Volume Pending Neutrophils (%) (Auto) Pending Lymphocytes (%) (Auto) Pending Monocytes (%) (Auto) Pending Basophils (%) (Auto) Pending Neutrophils # (Auto) Pending Lymphocytes # (Auto) Pending Monocytes # (Auto) Pending Sodium Level Pending Potassium Level Pending Chloride Level Pending Carbon Dioxide Level Pending Anion Gap Pending Blood Urea Nitrogen Pending Creatinine Pending Glomerular Filtration Rate Calc Pending BUN/Creatinine Ratio Pending Serum Glucose Pending Calcium Level Pending Troponin I High Sensitivity Pending Patient alert. Complaining of chest pain. Has right lower extremity swelling. Vitals stable. His last blood transfusion was few weeks ago. He has a vena boot on his right lower extremity pain He is ambulating with a walker. Reviewed his previous visit. Explained to the patient. Continue cardiac monitoring. Rt Lower DVT: Findings: The common femoral vein demonstrates appropriate compressibility and waveform variability. There is compressibility/patency of the great saphenous vein at the proximal thigh. The femoral vein demonstrates appropriate compressibility and waveform variability. The deep femoral vein demonstrates appropriate compressibility and waveform variability. The popliteal vein demonstrates appropriate compressibility and waveform variability. There is normal compressibility at the tibioperoneal trunk. Impression: No right deep venous thrombosis. If clinical concern/symptoms persist or worsen, short-interval follow-up study is suggested. Images Reviewed?: Images reviewed and evaluated by me Time of 1ST Reevaluation: 08:04 Reevaluation 1ST: Unchanged Patient Education/Counseling: Diagnosis, Treatment Family Education/Counseling: No Family Present Additional Information I reviewed the following notes from patient's past medical encounters: 04/24/24 for symptomatic anemia The following tests were ordered, and results were reviewed by me: I reviewed and agreed with the following test results read by other providers: Additional Information was gathered from interviewing the following independent historians: None I discussed treatment and results with medical personnel. Departure 1 Departure Time of Disposition: 07:30 Impression: Primary Impression: Symptomatic anemia Additional Impressions: Chest pain of unknown etiology Swelling of right lower extremity Disposition: ADMITTED INPATIENT Admit to: Med Surg Condition: Guarded Critical Care Note Critical Care Time?: No Stability Stability form required: No Heart Score Heart Score: Heart Score Response (Comments) Value History Slightly Suspicious 0 EKG Normal 0 Age >65 2 Risk Factors >3 or Hx ASHD 2 Troponin Normal limit 0 Total 4 I personally scribed for TEE ATKINS MD ([email or web address]) on 05/07/24 at 07:06. Electronically submitted by Mason Montano ([email or web address]). I personally scribed for TEE ATKINS MD ([email or web address]) on 05/07/24 at 08:14. Electronically submitted by Mason Montano ([email or web address]). TEE ATKINS MD May 07, 2024 07:06
--- NOTE | 2024-05-07 07:48 | DVH ---
Clinical History: pain, swelling Comparison: US RT LOWER DVT on DOS: 03/28/24, US RT LOWER DVT on DOS: 03/13/24, US RT LOWER DVT on DOS: 03/09/24, US RT LOWER DVT on DOS: 02/06/24, US RT LOWER DVT on DOS: 02/02/24 Technique: Duplex Doppler evaluation of the deep venous system of the right lower extremity from the common femo ral vein to the popliteal vein including color Doppler and spectral/pulsed waveform analysis was perf ormed. Findings: The common femoral vein demonstrates appropriate compressibility and waveform variability. There is compressibility/patency of the great saphenous vein at the proximal thigh. The femoral vein demonstrates appropriate compressibility and waveform variability. The deep femoral vein demonstrates appropriate compressibility and waveform variability. The popliteal vein demonstrates appropriate compressibility and waveform variability. There is normal compressibility at the tibioperoneal trunk. Impression: No right deep venous thrombosis. If clinical concern/symptoms persist or worsen, short-interval follow-up study is suggested.
--- NOTE | 2024-05-07 08:18 | DVH ---
EXAM: XY CHEST PORTABLE Indication: sob Technique: Single frontal view of the chest was obtained Comparison: XY CHEST PORTABLE on DOS: 04/24/24, XY CHEST XRAY 1 VIEW on DOS: 04/01/24, XY CHEST PORTABLE on DOS: 03/09/24, XY CHEST PORTABLE on DOS: 02/20/24, XY CHEST PORTABLE on DOS: 02/13/24 FINDINGS: Lines and Tubes: None Lungs: No focal consolidation. Pleura: No effusion. No pneumothorax. Cardiomediastinal contours: Unremarkable. Atherosclerotic vascular calcifications of the thoracic ao rta are noted. Bones: No acute osseous abnormality. Chronic right rib fractures. IMPRESSION: No acute cardiopulmonary disease.
[2024-05-07 08:22] LABS: Basophils # (auto) 0.1 10 ^3/uL (0-0.2); Mean Corpuscular Hemoglobin 28.1 pg (28.0-32.0); Mean Corpuscular Hgb Conc. 32.8 g/dL (32.0-36.0); Monocytes # (auto) 0.1 10 ^3/uL (0-1.3); Neutrophils # (auto) 4.6 10 ^3/uL (1.6-8.6); Platelet Count (auto) 88 10^3/uL (140-450)
[2024-05-07 08:24] LABS: Basophils % (auto) 1.4 % (0.0-2.0); Eosinophils % (auto) 7.6 % (0.0-7.0); Lymphocytes % (auto) 15.2 % (10.0-50.0); Monocytes % (auto) 1.7 % (0.0-12.0); Neutrophils % (auto) 74.1 % (37.0-80.0); White Blood Cell 6.3 10^3/uL (4.4-10.8)
[2024-05-07 08:25] LABS: Eosinophils # (auto) 0.5 10 ^3/uL (0-0.8); Hematocrit 20.5 % (41.0-53.0); Mean Corpuscular Volume 85.9 fL (80.0-100.0); Red Blood Cells 2.39 10^6/uL (4.5-5.90); Red Cell Distribution Width 16.1 % (11.8-14.3)
[2024-05-07 08:26] LABS: Hemoglobin 6.7 g/dL (13.5-17.5)
[2024-05-07] MEDS: ASPirin 325 MG TAB PO ONE (08:59)
[2024-05-07 09:01] LABS: Sodium 141 mmol/L (136-145)
[2024-05-07 09:04] LABS: Anion Gap 7 (5-15); Calcium 9.5 mg/dL (8.7-10.4); Carbon Dioxide 24 mmol/L (20-31)
[2024-05-07 09:09] LABS: BUN/Creatinine Ratio 18.3 (10.0-20.0); Blood Urea Nitrogen 11 mg/dL (9-23); Glucose 91 mg/dL (74-106)
[2024-05-07 09:10] LABS: Chloride 110 mmol/L (98-107)
[2024-05-07] MEDS: HYDROcodone-ACET 10/325MG TAB PO ONE (09:30)
[2024-05-07] MEDS ORDERED: NITROGLYCERIN 0.4 MG SL TAB SL PRN (12:00)
[2024-05-07] MEDS ORDERED: MORPHINE SULFATE INJ 2 MG/ml SYRG IV PRN (12:00)
[2024-05-07] MEDS ORDERED: ONDANSETRON HCL 4 MG/2 ML VIAL IV PRN (12:00)
--- NOTE | 2024-05-07 12:11 | DVHHP2 ---
History of Present Illness Reason for Visit: Generalized weakness History of Present Illness Eugene Alejandro is a 68-year-old male with past medical history of prostate cancer, MDS, schizophrenia, and COPD, who came in for generalized weakness. Patient is seen frequently with generalized weakness requiring blood transfusion due to myelodysplastic syndrome. Patient has been following with his primary care provider for the right leg cellulitis. States he recently finished antibiotics, but the leg is not better. Pulmonary: COPD Heme/Onc: Cancer (H/O prostate cancer), Other (MDS) Psych: Schizophrenia Past Surgical History: Other (Prostatectomy, incision and drainage? of the left lower extremity), Tonsillectomy Smoke: <1 pack per day ALCOHOL: none Drugs: None Lives: with Family Domestic Violence: Neg Review of Systems Constitutional: Yes: Weakness; No: Fever, Chills, Sweats, Malaise, Other Eyes: No: Pain, Vision change, Conjunctivae inflammation, Eyelid inflammation, Other, Redness ENT: No: Ear pain, Ear discharge, Nose pain, Nose discharge, Nose congestion, Mouth pain, Mouth swelling, Throat pain, Throat swelling, Other Respiratory: No: Cough, Dry, Shortness of breath, SOB with excertion, Wheezing, Hemoptysis, Pleuritic Pain, Sputum, Wheezing, Other Cardiovascular: No: Chest Pain, Palpitations, Orthopnea, Paroxysmal Noc. Dyspnea, Edema, Lt Headedness, Other Gastrointestinal: No: Nausea, Vomiting, Abdominal Pain, Diarrhea, Constipation, Melena, Hematochezia, Other Genitourinary: No Dysuria, No Frequency, No Incontinence, No Hematuria, No Retention, No Other Musculoskeletal: No: other, neck pain, shoulder pain, arm pain, back pain, hand pain, leg pain, foot pain Skin: No: Rash, Lesions, Jaundice, Bruising, Other Neurological: Weakness; No: Numbness, Incoordination, Change in speech, Confusion, Seizures, Other Allergies: Coded Allergies: NO KNOWN ALLERGIES (Unverified , 12/04/23) Medications Current Medications Medications Dose Ordered Sig/Fabricio Route Start Time Stop Time Status Last Admin Dose Admin Sodium Chloride 10 ml Q8HR IV 05/07/24 14:00 UNV Acetaminophen/ Hydrocodone Bitart 1 tab Q4HP PRN PO 05/07/24 12:00 UNV Ondansetron HCl 4 mg Q4HP PRN IV 05/07/24 12:00 UNV Docusate Sodium 100 mg BIDPRN PRN PO 05/07/24 12:00 UNV Acetaminophen 650 mg Q6HP PRN PO 05/07/24 12:00 UNV Nitroglycerin 0.4 mg Q5MINP PRN SL 05/07/24 12:00 UNV Morphine Sulfate 2 mg Q30M PRN IV 05/07/24 12:00 UNV Exam Vital Signs Vital Signs Date Time Temp Pulse Resp B/P (MAP) Pulse Ox O2 Delivery O2 Flow Rate FiO2 05/07/24 09:05 90 16 99 Room Air 05/07/24 09:05 97.8 120/83 (95) 97.8 General Appearance: Alert, Oriented X3, Cooperative, moderate distress HEENT: Atraumatic, PERRLA Respiratory: Clear to auscultation, Normal air movement Cardiovascular: Regular rate, Normal S1, Normal S2 Abdominal: Normal bowel sounds, Soft, No tenderness Extremities: No clubbing, No cyanosis, No edema Skin: No rashes, No breakdown, No significant lesion Neuro: Normal speech, Strength at 5/5 X4 ext, Other (weakness) Psych/Mental Status: Mental status NL, Mood NL Labs/Xrays Labs Test 05/07/24 07:54 Range/Units White Blood Count 6.3 4.4-10.8 10^3/uL Red Blood Count 2.39 L 4.5-5.90 10^6/uL Hemoglobin 6.7 *L 13.5-17.5 g/dL Hematocrit 20.5 L 41.0-53.0 % Mean Corpuscular Volume 85.9 80.0-100.0 fL Mean Corpuscular Hemoglobin 28.1 28.0-32.0 pg Mean Corpuscular Hemoglobin Concent 32.8 32.0-36.0 g/dL Red Cell Distribution Width 16.1 H 11.8-14.3 % Platelet Count 88 L 140-450 10^3/uL Mean Platelet Volume 9.2 6.9-10.8 fL Neutrophils (%) (Auto) 74.1 37.0-80.0 % Lymphocytes (%) (Auto) 15.2 10.0-50.0 % Monocytes (%) (Auto) 1.7 0.0-12.0 % Eosinophils (%) (Auto) 7.6 H 0.0-7.0 % Basophils (%) (Auto) 1.4 0.0-2.0 % Neutrophils # (Auto) 4.6 1.6-8.6 10 ^3/uL Lymphocytes # (Auto) 1.0 0.4-5.4 10 ^3/uL Monocytes # (Auto) 0.1 0-1.3 10 ^3/uL Eosinophils # (Auto) 0.5 0-0.8 10 ^3/uL Basophils # (Auto) 0.1 0-0.2 10 ^3/uL Nucleated Red Blood Cells 0.0 % Sodium Level 141 136-145 mmol/L Potassium Level 4.0 3.5-5.1 mmol/L Chloride Level 110 H 98-107 mmol/L Carbon Dioxide Level 24 20-31 mmol/L Anion Gap 7 5-15 Blood Urea Nitrogen 11 9-23 mg/dL Creatinine 0.60 L 0.700-1.30 mg/dL Glomerular Filtration Rate Calc 106 >90 mL/min BUN/Creatinine Ratio 18.3 10.0-20.0 Serum Glucose 91 74-106 mg/dL Calcium Level 9.5 8.7-10.4 mg/dL Troponin I High Sensitivity 27 </=54 ng/L US RT LOWER LEG Findings: The common femoral vein demonstrates appropriate compressibility and waveform variability. There is compressibility/patency of the great saphenous vein at the proximal thigh. The femoral vein demonstrates appropriate compressibility and waveform variability. The deep femoral vein demonstrates appropriate compressibility and waveform variability. The popliteal vein demonstrates appropriate compressibility and waveform variability. There is normal compressibility at the tibioperoneal trunk. Impression: No right deep venous thrombosis. EXAM: XY CHEST PORTABLE FINDINGS: Lines and Tubes: None Lungs: No focal consolidation. Pleura: No effusion. No pneumothorax. Cardiomediastinal contours: Unremarkable. Atherosclerotic vascular calcifications of the thoracic aorta are noted. Bones: No acute osseous abnormality. Chronic right rib fractures. IMPRESSION: No acute cardiopulmonary disease. Assessment/Plan Assessment/Plan Assessment: Symptomatic anemia, Cellulitis of right leg, COPD, Schizophrenia, MDS, Plan: Admit to Med-Surg, Transfuse 2 units PRBC, Manage/Monitor electrolytes closely, Wound care consult, IV antibiotics, Plan discussed with: Patient My Orders Orders - ANNIKA SYED [employer] Procedure Category Date Status Time Admit ADMIT 05/07/24 Transmitted 11:47 Code Status CODE 05/07/24 Transmitted 11:47 Sodium Chloride Lock PHA 05/07/24 Logged (Saline Lock Ns) 14:00 Hydrocodone-Acet PHA 05/07/24 Logged 5/325mg Tab (Spencer 12:00 Ondansetron Hcl PHA 05/07/24 Logged (Zofran) 12:00 Docusate Sodium PHA 05/07/24 Logged Capsule (Colace 12:00 Complete Blood Count LAB 05/08/24 Verified 04:00 Comprehensive LAB 05/08/24 Verified Metabolic Panel 04:00 Condition: Serious KATIA 05/07/24 In Process 11:47 Acetaminophen Tablet PHA 05/07/24 Logged (Tylenol Tablet) 12:00 Nitroglycerin PHA 05/07/24 Logged Sublingual (Ntrostat 12:00 Morphine Sulfate PHA 05/07/24 Logged Injection 12:00 Stat Ekg For Chest KATIA 05/07/24 In Process Pain 11:47 Notify Md Of Changes KATIA 05/07/24 In Process From Base 11:47 Shake Sawyer For KATIA 05/07/24 In Process 24 Hours 11:47 Emergency Dysrhythmia KATIA 05/07/24 In Process Protocol 11:47 Rhythm Strips Once KATIA 05/07/24 In Process Every Shift 11:47 Oxygen By Nasal RT 05/07/24 Transmitted Cannula 11:47 Regular Diet DIET 05/07/24 Transmitted Lunch Date of Service: May 07, 2024 Billing Provider: ANNIKA SYED Common Visit Codes: [id number] INP/OBS CARE (MOD) ANNIKA SYED May 07, 2024 12:11
[2024-05-07] MEDS: SODIUM CHLOR 0.9% PF (SALINE LOCK) 10ML VIAL/SYR IV SCH (16:09)
[2024-05-07 17:17] VITALS: BP_SYST 104; BP_SYST 108; BP_DIAS 55; BP_DIAS 64; PULSE 86; PULSE 87; PULSE 92; RESP 18; TEMP 99.1; TEMP 99.2; O2SAT 99
[2024-05-07] MEDS: CLINDAMYCIN 600MG IV 50 ML IV SCH (19:12)
[2024-05-07 20:07] VITALS: BP 107/71; PULSE 81; RESP 18; TEMP 100.1; O2SAT 96
[2024-05-07] MEDS: ACETAMINOPHEN 325 MG TAB PO PRN (20:07)
[2024-05-07] MEDS: MELATONIN 3 MG PO SCH (22:00)
[2024-05-07 23:00] VITALS: TEMP 99.3
[2024-05-07] MEDS: GABAPENTIN 300 MG CAP PO SCH (23:25)
[2024-05-07] MEDS: risperiDONE 1 MG TAB PO SCH (23:27)
[2024-05-07] MEDS: MIDODRINE HCL 10 MG TAB PO SCH (23:28)
[2024-05-08] VITALS (17 sets, daily range): BP systolic 92–125; BP diastolic 46–64; PULSE 85–97; RESP 15–20; TEMP 98–99.1; O2SAT 94–99
[2024-05-08] MEDS: HYDROcodone-ACET 5/325MG TAB PO PRN (03:45)
[2024-05-08 09:55] LABS: Alanine Aminotransferase 18 U/L (7-40); Alkaline Phosphatase 85 U/L (46-116); Anion Gap 9 (5-15); Aspartate Aminotransferase 16 U/L (13-40); BUN/Creatinine Ratio 13.1 (10.0-20.0); Carbon Dioxide 21 mmol/L (20-31); Potassium 4.2 mmol/L (3.5-5.1); Sodium 137 mmol/L (136-145)
[2024-05-08 09:56] LABS: Albumin 3.5 g/dL (3.2-4.8)
[2024-05-08 09:57] LABS: Bilirubin, Total 0.5 mg/dL (0.2-1.0); Total Protein 6.5 g/dL (5.7-8.2)
[2024-05-08 10:15] LABS: Chloride 107 mmol/L (98-107)
[2024-05-08 10:16] LABS: Blood Urea Nitrogen 8 mg/dL (9-23); Glucose 127 mg/dL (74-106)
[2024-05-08] MEDS: ASPirin-EC 81 mg tab PO SCH (10:17)
[2024-05-08] MEDS: FOLIC ACID 1 MG TAB PO SCH (10:18)
[2024-05-08 10:20] LABS: Basophils # (auto) 0.1 10 ^3/uL (0-0.2); Eosinophils # (auto) 0.4 10 ^3/uL (0-0.8); Lymphocytes # (auto) 0.7 10 ^3/uL (0.4-5.4); Lymphocytes % (auto) 13.9 % (10.0-50.0); Mean Corpuscular Hemoglobin 28.9 pg (28.0-32.0); Monocytes # (auto) 0.1 10 ^3/uL (0-1.3); Monocytes % (auto) 2.6 % (0.0-12.0); Neutrophils # (auto) 3.9 10 ^3/uL (1.6-8.6); White Blood Cell 5.3 10^3/uL (4.4-10.8)
[2024-05-08 10:22] LABS: Basophils % (auto) 1.9 % (0.0-2.0); Eosinophils % (auto) 8.4 % (0.0-7.0); Hematocrit 20.3 % (41.0-53.0); Neutrophils % (auto) 73.2 % (37.0-80.0); Nucleated Red Blood Cells % 0.1 %; Platelet Count (auto) 65 10^3/uL (140-450); Red Blood Cells 2.38 10^6/uL (4.5-5.90); Red Cell Distribution Width 15.3 % (11.8-14.3)
[2024-05-08 10:25] LABS: Hemoglobin 6.9 g/dL (13.5-17.5)
--- NOTE | 2024-05-08 11:45 | DVHPN2 ---
Reviewed: Care Plan, H&P, Labs, Medications, Previous Orders, Radiology Changes from previous H/P or p: No Changes Eyes: No Pain, No Vision change, No Conjunctivae inflammation, No Eyelid inflammation, No Other, No Redness ENT: No Ear pain, No Ear discharge, No Nose pain, No Nose discharge, No Nose congestion, No Mouth pain, No Mouth swelling, No Throat pain, No Throat swelling, No Other Cardiovascular: No Chest Pain, No Palpitations, No Orthopnea, No Paroxysmal Noc. Dyspnea, No Edema, No Lt Headedness, No Other Respiratory: No Cough, No Dry, No Shortness of breath, No SOB with excertion, No Wheezing, No Hemoptysis, No Pleuritic Pain, No Sputum, No Other Gastrointestinal: No Nausea, No Vomiting, No Abdominal Pain, No Diarrhea, No Constipation, No Melena, No Hematochezia, No Other Genitourinary: No Dysuria, No Frequency, No Incontinence, No Hematuria, No Retention, No Other Musculoskeletal: No other, No neck pain, No shoulder pain, No arm pain, No back pain, No hand pain, No leg pain, No foot pain Skin: No Rash, No Lesions, No Jaundice, No Bruising, No Other Objective Vitals Vital Signs Date Time Temp Pulse Resp B/P (MAP) Pulse Ox O2 Delivery O2 Flow Rate FiO2 05/08/24 09:00 98.0 88 16 111/64 (80) 94 98.0 05/08/24 03:20 Room Air* 0 21 Intake/Output Intake and Output 05/08/24 07:00 Intake Total 1220 ml Output Total 0 ml Balance 1220 ml Intake Oral 320 ml IV Total 100 ml Blood Product 800 ml Output Urine Total 0 ml # Voids 1 Medications Current Medications Medications Dose Ordered Sig/Fabricio Route Start Time Stop Time Status Last Admin Dose Admin Sodium Chloride 10 ml Q8HR IV 05/07/24 14:00 05/08/24 06:25 10 ML Acetaminophen/ Hydrocodone Bitart 1 tab Q4HP PRN PO 05/07/24 12:00 05/08/24 03:45 1 TAB Ondansetron HCl 4 mg Q4HP PRN IV 05/07/24 12:00 Docusate Sodium 100 mg BIDPRN PRN PO 05/07/24 12:00 Acetaminophen 650 mg Q6HP PRN PO 05/07/24 12:00 05/08/24 02:22 650 MG Nitroglycerin 0.4 mg Q5MINP PRN SL 05/07/24 12:00 Morphine Sulfate 2 mg Q30M PRN IV 05/07/24 12:00 Clindamycin Phosphate 50 ml @ 50 mls/hr Q8HR IV 05/07/24 16:29 05/08/24 06:16 50 MLS/HR Aspirin 81 mg DAILY PO 05/08/24 10:00 05/08/24 10:17 81 MG Atorvastatin Calcium 40 mg HS PO 05/08/24 22:00 Folic Acid 1 mg DAILY PO 05/08/24 10:00 05/08/24 10:18 1 MG Gabapentin 600 mg BID PO 05/07/24 22:00 05/08/24 10:18 600 MG Patient Own Medication 3 mg HS PO 05/07/24 22:00 Midodrine 5 mg TID PO 05/07/24 22:00 05/08/24 06:16 5 MG Risperidone 2 mg BID PO 05/07/24 22:00 05/08/24 10:17 2 MG Laboratory Results Laboratory Tests 05/08/24 09:00 05/08/24 09:54 Chemistry Test 05/08/24 09:00 Albumin 3.5 g/dL (3.2-4.8) Calcium Level 9.0 mg/dL (8.7-10.4) Total Protein 6.5 g/dL (5.7-8.2) LFT Test 05/08/24 09:00 Alanine Aminotransferase (ALT) 18 U/L (7-40) Alkaline Phosphatase 85 U/L (46-116) Aspartate Amino Transferase (AST) 16 U/L (13-40) Total Bilirubin 0.5 mg/dL (0.2-1.0) Labs and/or images reviewed: Labs reviewed by me, Image(s) reviewed by me Assessment/Plan Assessment/Plan Acute Symptomatic anemia hemoglobin 6.7 improved to 6.9 after 1 unit RBC transfusion, we will transfuse one more unit transfusion History of chronic anemia with recurrent blood transfusions, patient is following Dr. Wanda Haque Myelodysplastic syndrome Frequent admissions Acute on chronic COPD exacerbation History of prostate cancer Schizophrenia Swollen right lower extremity: DVT ruled out Chronic right lower leg wound under the treatment of Dr. Roth IV clindamycin Plan discussed with: Patient My Orders Orders - SHARON LUEVANO MD Procedure Category Date Status Time Communication Order ORDERS 05/08/24 Transmitted 11:22 Date of Service: May 08, 2024 Billing Provider: SHARON LUEVANO MD Common Visit Codes: [id number] INP/OBS CARE(HIGH) SHARON LUEVANO MD May 08, 2024 11:45
[2024-05-08] MEDS ORDERED: MELATONIN 5 MG TAB ONE ×2 (22:09→23:53)
[2024-05-08] MEDS: ATORVASTATIN 20 MG TAB PO SCH (22:12)
[2024-05-08] MEDS: DOCUSATE SOD 100 MG CAP PO PRN (22:14)
[2024-05-09 01:00] VITALS: BP 99/62; PULSE 91; RESP 20; TEMP 99.2; O2SAT 94
[2024-05-09 01:55] VITALS: BP 92/65; PULSE 85; RESP 18; TEMP 98.1
[2024-05-09 05:00] VITALS: BP 83/48; PULSE 83; RESP 20; TEMP 98.2; O2SAT 98
[2024-05-09 07:54] VITALS: BP 120/74; PULSE 85; RESP 15; TEMP 97.8; O2SAT 97
--- NOTE | 2024-05-09 10:12 | DVHPN2 ---
Reviewed: Care Plan, H&P, Labs, Medications, Previous Orders, Radiology Changes from previous H/P or p: No Changes Eyes: No Pain, No Vision change, No Conjunctivae inflammation, No Eyelid inflammation, No Other, No Redness ENT: No Ear pain, No Ear discharge, No Nose pain, No Nose discharge, No Nose congestion, No Mouth pain, No Mouth swelling, No Throat pain, No Throat swelling, No Other Cardiovascular: No Chest Pain, No Palpitations, No Orthopnea, No Paroxysmal Noc. Dyspnea, No Edema, No Lt Headedness, No Other Respiratory: No Cough, No Dry, No Shortness of breath, No SOB with excertion, No Wheezing, No Hemoptysis, No Pleuritic Pain, No Sputum, No Other Gastrointestinal: No Nausea, No Vomiting, No Abdominal Pain, No Diarrhea, No Constipation, No Melena, No Hematochezia, No Other Genitourinary: No Dysuria, No Frequency, No Incontinence, No Hematuria, No Retention, No Other Musculoskeletal: No other, No neck pain, No shoulder pain, No arm pain, No back pain, No hand pain, No leg pain, No foot pain Skin: No Rash, No Lesions, No Jaundice, No Bruising, No Other Objective Vitals Vital Signs Date Time Temp Pulse Resp B/P (MAP) Pulse Ox O2 Delivery O2 Flow Rate FiO2 05/09/24 07:54 97.8 85 15 120/74 (89) 97 97.8 05/08/24 17:17 Room Air* 0 21 Intake/Output Intake and Output 05/09/24 07:00 Intake Total 2740 ml Output Total 1300 ml Balance 1440 ml Intake Oral 1890 ml Blood Product 550 ml Other 300 ml Output Urine Total 1300 ml # Voids 3 # Bowel Movements 1 Medications Current Medications Medications Dose Ordered Sig/Fabricio Route Start Time Stop Time Status Last Admin Dose Admin Sodium Chloride 10 ml Q8HR IV 05/07/24 14:00 05/09/24 06:03 10 ML Acetaminophen/ Hydrocodone Bitart 1 tab Q4HP PRN PO 05/07/24 12:00 05/08/24 23:56 1 TAB Ondansetron HCl 4 mg Q4HP PRN IV 05/07/24 12:00 Docusate Sodium 100 mg BIDPRN PRN PO 05/07/24 12:00 05/08/24 22:14 100 MG Acetaminophen 650 mg Q6HP PRN PO 05/07/24 12:00 05/08/24 02:22 650 MG Nitroglycerin 0.4 mg Q5MINP PRN SL 05/07/24 12:00 Morphine Sulfate 2 mg Q30M PRN IV 05/07/24 12:00 Clindamycin Phosphate 50 ml @ 50 mls/hr Q8HR IV 05/07/24 16:29 05/09/24 06:02 50 MLS/HR Aspirin 81 mg DAILY PO 05/08/24 10:00 05/08/24 10:17 81 MG Atorvastatin Calcium 40 mg HS PO 05/08/24 22:00 05/08/24 22:12 40 MG Folic Acid 1 mg DAILY PO 05/08/24 10:00 05/09/24 09:42 1 MG Gabapentin 600 mg BID PO 05/07/24 22:00 05/09/24 09:42 600 MG Patient Own Medication 3 mg HS PO 05/07/24 22:00 Midodrine 5 mg TID PO 05/07/24 22:00 05/09/24 06:03 5 MG Risperidone 2 mg BID PO 05/07/24 22:00 05/09/24 09:42 2 MG Laboratory Results Laboratory Tests 05/08/24 09:00 05/08/24 09:54 Microbiology Microbiology Date/Time Source Procedure Growth Status 05/08/24 02:00 Nose MRSA Screen - Final Complete Labs and/or images reviewed: Labs reviewed by me, Image(s) reviewed by me Assessment/Plan Assessment/Plan Acute Symptomatic anemia hemoglobin 6.7 improved to 6.9 after 3 unit RBC transfusion, we will check hemoglobin today transfusion History of chronic anemia with recurrent blood transfusions, patient is being followed by Dr. Wanda Haque Myelodysplastic syndrome Frequent admissions Acute on chronic COPD exacerbation History of prostate cancer Schizophrenia Swollen right lower extremity: DVT ruled out Chronic right lower leg wound under the treatment of Dr. Ira LORD clindamycin Plan discussed with: Patient My Orders Orders - SHARON LUEVANO MD Procedure Category Date Status Time Communication Order ORDERS 05/08/24 Transmitted 11:22 Cleanse Wound With KATIA 05/08/24 In Process Wound Clean 15:12 Date of Service: May 09, 2024 Billing Provider: SHARON LUEVANO MD Common Visit Codes: [id number] INP/OBS CARE(HIGH) SHARON LUEVANO MD May 09, 2024 10:12
[2024-05-09 11:25] LABS: Basophils # (auto) 0.1 10 ^3/uL (0-0.2); Basophils % (auto) 1.3 % (0.0-2.0); Eosinophils # (auto) 0.5 10 ^3/uL (0-0.8); Eosinophils % (auto) 8.3 % (0.0-7.0); Hematocrit 25.9 % (41.0-53.0); Hemoglobin 8.9 g/dL (13.5-17.5); Lymphocytes # (auto) 1.2 10 ^3/uL (0.4-5.4); Lymphocytes % (auto) 20.7 % (10.0-50.0); Mean Corpuscular Hgb Conc. 34.4 g/dL (32.0-36.0); Mean Corpuscular Volume 84.5 fL (80.0-100.0); Monocytes # (auto) 0.2 10 ^3/uL (0-1.3); Monocytes % (auto) 2.8 % (0.0-12.0); Neutrophils # (auto) 3.7 10 ^3/uL (1.6-8.6); Neutrophils % (auto) 66.9 % (37.0-80.0); Nucleated Red Blood Cells % 0.1 %; Platelet Count (auto) 65 10^3/uL (140-450); Red Blood Cells 3.06 10^6/uL (4.5-5.90); Red Cell Distribution Width 15.9 % (11.8-14.3); White Blood Cell 5.6 10^3/uL (4.4-10.8)
[2024-05-09 12:00] VITALS: BP 112/64; PULSE 90; RESP 16; TEMP 98.3; O2SAT 92
--- NOTE | 2024-05-09 13:58 | DVHDS2 ---
Discharge Summary Date of Admission May 07, 2024 at 11:47 Date of Discharge: May 09, 2024 Admitting Diagnosis Generalized weakness Wounds: None Labs/Diagnostic Data: Laboratory Results Test 05/09/24 10:23 05/08/24 09:00 05/07/24 07:54 White Blood Count 5.6 10^3/uL (4.4-10.8) Red Blood Count 3.06 10^6/uL (4.5-5.90) Hemoglobin 8.9 g/dL (13.5-17.5) Hematocrit 25.9 % (41.0-53.0) Mean Corpuscular Volume 84.5 fL (80.0-100.0) Mean Corpuscular Hemoglobin 29.0 pg (28.0-32.0) Mean Corpuscular Hemoglobin Concent 34.4 g/dL (32.0-36.0) Red Cell Distribution Width 15.9 % (11.8-14.3) Platelet Count 65 10^3/uL (140-450) Mean Platelet Volume 9.2 fL (6.9-10.8) Neutrophils (%) (Auto) 66.9 % (37.0-80.0) Lymphocytes (%) (Auto) 20.7 % (10.0-50.0) Monocytes (%) (Auto) 2.8 % (0.0-12.0) Eosinophils (%) (Auto) 8.3 % (0.0-7.0) Basophils (%) (Auto) 1.3 % (0.0-2.0) Neutrophils # (Auto) 3.7 10 ^3/uL (1.6-8.6) Lymphocytes # (Auto) 1.2 10 ^3/uL (0.4-5.4) Monocytes # (Auto) 0.2 10 ^3/uL (0-1.3) Eosinophils # (Auto) 0.5 10 ^3/uL (0-0.8) Basophils # (Auto) 0.1 10 ^3/uL (0-0.2) Nucleated Red Blood Cells 0.1 % Sodium Level 137 mmol/L (136-145) Potassium Level 4.2 mmol/L (3.5-5.1) Chloride Level 107 mmol/L (98-107) Carbon Dioxide Level 21 mmol/L (20-31) Anion Gap 9 (5-15) Blood Urea Nitrogen 8 mg/dL (9-23) Creatinine 0.61 mg/dL (0.700-1.30) Glomerular Filtration Rate Calc 106 mL/min (>90) BUN/Creatinine Ratio 13.1 (10.0-20.0) Serum Glucose 127 mg/dL (74-106) Calcium Level 9.0 mg/dL (8.7-10.4) Total Bilirubin 0.5 mg/dL (0.2-1.0) Aspartate Amino Transferase (AST) 16 U/L (13-40) Alanine Aminotransferase (ALT) 18 U/L (7-40) Alkaline Phosphatase 85 U/L (46-116) Total Protein 6.5 g/dL (5.7-8.2) Albumin 3.5 g/dL (3.2-4.8) Troponin I High Sensitivity 27 ng/L (</=54) Other Laboratory Tests 05/09/24 10:23 05/08/24 09:00 Brief Hx & Hospital Course: 68-year-old male with a history of chronic anemia recurrent blood transfusions frequent admissions myelodysplastic syndrome COPD history of prostate cancer seizure failure chronic right lower leg wound under the treatment of podiatric Dr. Bell came in for generalized weakness hemoglobin 6.7 improved to 8.9 after 3 units RBC transfusion and patient feels better and wants to go home. Right lower extremity swelling ruled out DVT. Discharged home. Consults/Reason for consult None Operations or Procedures RBC transfusion Condition at Discharge: Fair Final Diagnosis/Problems List Acute Symptomatic anemia hemoglobin 6.7 improved to 8.9 after 3 unit RBC transfusion, we will check hemoglobin today transfusion History of chronic anemia with recurrent blood transfusions, patient is being followed by Dr. Wanda Haque Myelodysplastic syndrome Frequent admissions Acute on chronic COPD exacerbation History of prostate cancer Schizophrenia Swollen right lower extremity: DVT ruled out Chronic right lower leg wound under the treatment of Dr. Roth Discharge Disposition: Home Discharge Instruct/Medications Diet: Cardiac 2g Na,low cholest Activity: Light activity Follow Up/Referral: Follow up with your primary Dr and Dr.Vir Haque Medications: None 35 (Time taken for discharge summary 35 minutes) Discharge Statement: "Patient was advised to return to the ER or call 911 if any headaches, dizziness, shortness of breath, chest pain, abdominal pain, bleeding, fevers, or worsening of medical condition. Patient was counseled about treatment plan, medications, possible side effects, patientverbalized understanding. All questions were answered to the best of my ability. This discharge took greater then 30 minutes in planning, reviewing documentation, counseling the patient, and discussing with other team members." ASSESSMENT ASSESSMENT Hospital Course Improved Assessment Acute Symptomatic anemia hemoglobin 6.7 improved to 8.9 after 3 unit RBC transfusion, we will check hemoglobin today transfusion History of chronic anemia with recurrent blood transfusions, patient is being followed by Dr. Wanda Haque Myelodysplastic syndrome Frequent admissions Acute on chronic COPD exacerbation History of prostate cancer Schizophrenia Swollen right lower extremity: DVT ruled out Chronic right lower leg wound under the treatment of Dr. Roth Date of Service: May 09, 2024 Billing Provider: SHARON LUEVANO MD Common Visit Codes: [id number] DISCH DAY >30min SHARON LUEVANO MD May 09, 2024 13:58
[2024-05-09 15:36] VITALS: BP 112/64; PULSE 90; RESP 16; TEMP 98.3; O2SAT 92
== END 2024-05-09 16:18 | disposition home or self-care (01) | DRG 812 ==
LOC: ER 05:35 → OVERFLOW 11:47 → EAST 05-08 03:25
PROVIDERS: ADMIT Family Medicine; ATTEND Family Medicine
PROC: 30233N1 Transfusion of Nonautologous Red Blood Cells into Peripheral Vein, Percutaneous Approach (ICD-10-PCS; principal; 2024-05-08)
DX: D46.9 Myelodysplastic syndrome, unspecified (principal); L03.115 Cellulitis of right lower limb; J44.1 Chronic obstructive pulmonary disease with (acute) exacerbation; F20.9 Schizophrenia, unspecified; F17.210 Nicotine dependence, cigarettes, uncomplicated; Z85.46 Personal history of malignant neoplasm of prostate; Z79.899 Other long term (current) drug therapy
CPT/HCPCS: 36415; 71045; 80048; 80053; 84484; 85025; 86850; 86870; 86900; 86901; 86902; 86922; 87081; 93971; G0378; J3490

== ENCOUNTER 2024-05-18 12:21 | Emergency (ER) | payer MEDICARE, MEDICAID ==
[~2024-05-18] VITALS: Ht 180.3 cm; Wt 77.2 kg
[2024-05-18 12:41] VITALS: BP 117/75; PULSE 107; RESP 18; O2SAT 98
--- NOTE | 2024-05-18 13:01 | ED.PDOC ---
History of Present Illness HPI Comments 68Y M with PMHx anemia, myelodysplastic syndrome, and prostate CA in remission presents to ED for chief complaint general weakness x2days with dizziness, lightheadedness, and SOB. Pt states he has experienced these symptoms before and they usually occur when his hemoglobin level is low and he is in need of a blood transfusion. Pt denies any active bleeding, dark stools, syncope, or chest pain. Pt was discharged from [facility] on 04/25/2024 and 05/09/2024 after receiving transfusions. Chief Complaint: General Weakness Time Seen by MD: 12:45 Primary Care Provider: MADDIE Reviewed Notes: Nurses Notes, Medications, Allergies Allergies: Coded Allergies: NO KNOWN ALLERGIES (Unverified , 12/04/23) Home Meds Active Scripts Cephalexin (KEFLEX CAPSULE) 250 Mg Cp, 500 MG PO TID for 10 Days, #30 CAP Prov:VENKAT SMILEY MD 04/10/24 Hydrocodone-Acetaminophen (Hydrocodone Bitartrate/AC 10-325 mg) 1 Tab Tab, 1 TAB PO TIDP PRN for 7 Days, #21 TAB Prov:VENKAT SMILEY MD 04/10/24 Hydrocortone (Hydrocortisone 1%) 1 Applic Ap, 1 APPLIC TOP BID, #30 GRAMS Prov:JUAN ROGERS MD 02/08/24 Reported Medications Aspirin (Aspir-81) 81 Mg Tab, 1 TAB PO DAILY, #30 TAB 5 Refills 03/10/24 Midodrine HCl (Midodrine Hydrochloride) 5 Mg Tab, 1 TAB PO TID 01/30/24 Risperidone (Risperidone) 2 Mg Tab, 2 MG PO BID, TAB 12/05/23 Nicotine (Nicoderm 21MG/24HR) 1 Patch Ph, 1 PATCH TOP DAILY, #28 PATCH 1 Refill 12/05/23 Mirtazapine (Mirtazapine Oral Disintegrating Tablet) 45 Mg Tab, 1 TAB PO QPM, #30 TAB 1 Refill 12/05/23 Melatonin (KP MELATONIN) 3 Mg Tab, 3 MG PO HS, TAB 12/05/23 Leuprolide Acetate (3 Month) (Lupron Depot) 22.5 Mg Inj, 22.5 MG IM, INJ 12/05/23 Gabapentin (Gabapentin) 600 Mg Tab, 600 MG PO BID, TAB 12/05/23 Folic Acid (Folic Acid) 1 Mg Tab, 1 MG PO DAILY for 30 Days, MG 12/05/23 Fluticasone Furoate (Inhalatio (Arnuity Ellipta) 200 Mcg/Act Inh, 200 MCG IN, INHALER 12/05/23 Atorvastatin Calcium (ATORVASTATIN CALCIUM) 40 Mg Tab, 1 TAB PO DAILY, #30 TAB 5 Refills 12/05/23 Albuterol Sulfate (VENTOLIN MDI) 90 Mcg Ih, 90 MCG IN, INH 12/05/23 Information Source: Patient Mode of Arrival: Ambulatory Severity: Moderate Timing: Days Duration: Since onset Prehospital treatment: None Past Medical History PAST MEDICAL HISTORY: Anemia, Cancer, COPD, Schizophrenia Past Medical History (Other): Mild dysplastic syndrome (MDS) Surgical History: Tonsillectomy Family History Family History: Reviewed,noncontributory to illness Social History Smoker: Cigarettes Alcohol: Denies ETOH Use Drugs: Denies Drug Use Lives In: Home Constitutional: reports: weakness; denies: chills, diaphoresis, fatigue, fever, malaise, sweats, others EENTM: denies: blurred vision, double vision, ear bleeding, ear discharge, ear drainage, ear pain, ear ringing, eye pain, eye redness, hearing loss, mouth pain, mouth swelling, nasal discharge, nose bleeding, nose congestion, nose pain, photophobia, tearing, throat pain, throat swelling, voice changes, others Respiratory: reports: shortness of breath; denies: cough, hemoptysis, o rthopnea, SOB at rest, SOB with excertion, stridor, wheezing, others Cardiovascular: reports: lightheadedness; denies: chest pain, dizzy spells, diaphoresis, Dyspnea on exertion, edema, irregular heart beat, left arm pain, palpitations, PND, syncope, others Gastrointestinal: denies: abdomen distended, abdominal pain, blood streaked bowels, constipated, diarrhea, dysphagia, difficulty swallowing, hematemesis, melena, nausea, poor appetite, poor fluid intake, rectal bleeding, rectal pain, vomiting, others Genitourinary: denies: burning, dysuria, flank pain, frequency, hematuria, incontinence, penile discharge, penile sore, pain, testicle pain, testicle swelling, urgency, others Neurological: reports: dizziness; denies: fainting, headache, left sided numbness, left sided weakness, numbness, paresthesia, pre-existing deficit, right sided numbness, right sided weakness, seizure, speech problems, tingling, tremors, weakness, others Musculoskeletal: denies: back pain, gout, joint pain, joint swelling, muscle pain, muscle stiffness, neck pain, others Integumetry: denies: bruises, change in color, change in hair/nails, dryness, laceration, lesions, lumps, rash, wounds, others Allergic/Immunocompromised: denies: Difficulty Healing, Frequent Infections, Hives, Itching, others Hematologic/Lymphatic: denies: anemia, blood clots, easy bleeding, easy bruising, swollen glands, others Endocrine: denies: excessive hunger, excessive sweating, excessive thirst, excessive urination, flushing, intolerance to cold, intolerance to heat, unexplained weight gain, unexplained weight loss, others Psychiatric: denies: anxiety, bipolar disorder, depression, hopeless, panic disorder, schizophrenia, sleepless, suicidal, others All Other Systems: Reviewed and Negative Physical Exam General Appearance: No Apparent Distress HEENT: Other (Pupils and face symmetric. Moist mucous membranes.) Neck: Full Range of Motion, Non-Tender, Normal Inspection Respiratory: Lungs Clear, No Accessory Muscle Use, No Respiratory Distress, Normal Breath Sounds Cardiovascular: No Edema, No JVD, Regular Rate/Rhythm Breast Exam: Deferred Gastrointestinal: Non Tender, Soft Genitalia: Deferred Pelvic: Deferred Rectal: Deferred Extremities: Non-tender Neurologic: Alert (Oriented x4), Normal Affect, Normal Mood, Other (Moves all extremities. No gross focal deficit.) Cerebellar Function: NOT DONE Reflexes: NOT DONE Skin: Dry, Normal Color, Warm Lymphatic: NOT DONE Was a procedure done? Was a procedure done?: No Differential Dx Considerations may include: anemia, electrolyte imbalance, arrhythmia, infection, volume depletion, hypoglycemia, among others X-Ray, Labs, Meds, VS Vital Signs Date Time Temp Pulse Resp B/P (MAP) Pulse Ox O2 Delivery O2 Flow Rate FiO2 05/18/24 12:41 98.8 107 18 117/75 (89) 98 Lab Test 05/18/24 13:00 Range/Units White Blood Count 6.6 4.4-10.8 10^3/uL Red Blood Count 3.00 L 4.5-5.90 10^6/uL Hemoglobin 8.8 L 13.5-17.5 g/dL Hematocrit 25.3 L 41.0-53.0 % Mean Corpuscular Volume 84.3 80.0-100.0 fL Mean Corpuscular Hemoglobin 29.3 28.0-32.0 pg Mean Corpuscular Hemoglobin Concent 34.8 32.0-36.0 g/dL Red Cell Distribution Width 15.3 H 11.8-14.3 % Platelet Count 108 L 140-450 10^3/uL Mean Platelet Volume 9.1 6.9-10.8 fL Neutrophils (%) (Auto) 69.5 37.0-80.0 % Lymphocytes (%) (Auto) 18.7 10.0-50.0 % Monocytes (%) (Auto) 2.9 0.0-12.0 % Eosinophils (%) (Auto) 7.3 H 0.0-7.0 % Basophils (%) (Auto) 1.6 0.0-2.0 % Neutrophils # (Auto) 4.6 1.6-8.6 10 ^3/uL Lymphocytes # (Auto) 1.2 0.4-5.4 10 ^3/uL Monocytes # (Auto) 0.2 0-1.3 10 ^3/uL Eosinophils # (Auto) 0.5 0-0.8 10 ^3/uL Basophils # (Auto) 0.1 0-0.2 10 ^3/uL Nucleated Red Blood Cells 0.0 % Prothrombin Time 11.0 9.3-11.8 sec Prothrombin Time INR 1.04 0.9-1.15 Activated Partial Thromboplast Time 29.6 24.5-34.5 SEC Sodium Level 138 136-145 mmol/L Potassium Level 3.5 3.5-5.1 mmol/L Chloride Level 107 98-107 mmol/L Carbon Dioxide Level 24 20-31 mmol/L Anion Gap 7 5-15 Blood Urea Nitrogen 12 9-23 mg/dL Creatinine 0.78 0.700-1.30 mg/dL Glomerular Filtration Rate Calc 98 >90 mL/min BUN/Creatinine Ratio 15.4 10.0-20.0 Serum Glucose 91 74-106 mg/dL Calcium Level 9.6 8.7-10.4 mg/dL Troponin I High Sensitivity < 3 L </=54 ng/L B-Type Natriuretic Peptide 38.36 0-100 pg/mL ORDERING PHYSICIAN: VANDANA BENSON MD PROCEDURE(s): CXRP - CHEST PORTABLE REASON: gen weak ORDER NUMBER(s): [id number], ACCESSION NUMBER(s): [id number] EXAM: XR Chest, 1 View CLINICAL INDICATION: gen weak TECHNIQUE: Frontal view of the chest. COMPARISON: XY CHEST PORTABLE on DOS: 05/07/24, XY CHEST PORTABLE on DOS: 04/24/24, XY CHEST XRAY 1 VIEW on DOS: 04/01/24, XY CHEST PORTABLE on DOS: 03/09/24, XY CHEST PORTABLE on DOS: 02/20/24 FINDINGS: LUNGS AND PLEURAL SPACES: Unremarkable. No consolidation. No pneumothorax. HEART: Unremarkable. No cardiomegaly. MEDIASTINUM: Unremarkable. Normal mediastinal contour. BONES/JOINTS: Unremarkable. No acute fracture. OTHER FINDINGS: . None. IMPRESSION: No acute cardiopulmonary process. ENT: MEME ALONSO JRACCT: [id number] UNIT: [id number] : 1955 LOC: ER ROOM / BED: / AGE / SEX: 68 / M ADM STATUS: REG ER SERVICE 1412 ORDERING PHYSICIAN: VANDANA BENSON MD PROCEDURE(s): HWOCT - HEAD WITHOUT CONTRAST REASON: presyncope ORDER NUMBER(s): [id number], ACCESSION NUMBER(s): [id number] EXAM: CT HEAD WITHOUT CONTRAST INDICATION: presyncope TECHNIQUE: CT of the head without intravenous contrast. Radiation Dose : 1. Head: CT Dose: CTDI volume is 56 mGy. Dose-length product is 1149 mGy*cm The dose indicators for CT are the volume Computed Tomography (CT) Dose Index (CTDIvol) and the Dose Length Product (DLP), and are measured in units of mGy and mGy-cm, respectively. These indicators are not patient dose, but values generated from the CT scanner acquisition factors. The report includes radiation exposure data for exposures received during this examination. COMPARISON: CT HEAD WITHOUT CONTRAST on DOS: 01/30/24, CT HEAD WITHOUT CONTRAST on DOS: 01/02/24 FINDINGS: There is no evidence of acute intracranial hemorrhage, extra-axial collection, mass effect, midline shift, herniation or hydrocephalus. The ventricles, sulci and cisterns are age appropriate. The dasilva-white differentiation is intact. Patchy periventricular and subcortical white matter hypoattenuation is nonspecific but may be related to small vessel ischemic disease. The visualized paranasal sinuses and mastoid air cells are clear. The surrounding soft tissues and osseous structures are unremarkable. IMPRESSION: 1. No acute intracranial abnormality. Radiation optimization: All CT scans at this facility use at least one of these dose optimization techniques: automated exposure control mA and/or kV adjustment per patient size (includes targeted exams where dose is matched to clinical indication) or iterative reconstruction. X-Ray, Labs, Meds, VS Comment 68-year-old male with a history of anemia, myelodysplastic syndrome, prostate cancer in remission complaining of weakness, lightheadedness and shortness of breath Vitals remarkable for heart rate 107 Exam unremarkable Rhythm strip independently interpreted by me: Sinus rhythm, rate 96, no ectopy. Chest x-ray IMPRESSION: No acute cardiopulmonary process. IMPRESSION: 1. No acute intracranial abnormality. CBC shows hemoglobin 8.8, hematocrit 25.3, platelets 108, metabolic panel normal, coag panel unremarkable, BNP normal, troponin negative On re-evaluation, patient stated he feels back to normal after having some orange juice. Vitals are stable. Patient is no longer tachycardic. Patient explain he often feels similar symptoms when he has not eaten or needs to drink liquids. Hospitalization was considered, however patient had rapid improvement of symptoms after drinking some juice. Transfusion is not indicated at this time, and patient states he would prefer to be discharged home. I am comfortable discharging the patient with close follow-up with his primary physician. Time of 1ST Reevaluation: 13:15 Reevaluation 1ST: Unchanged Time of 2ND Reevaluation: 14:45 Reevaluation 2ND: Improved Patient Education/Counseling: Diagnosis, Treatment Family Education/Counseling: No Family Present Departure 1 Departure Time of Disposition: 14:45 Impression: Primary Impression: Anemia Qualified Codes: D64.9 - Anemia, unspecified Additional Impression: Thrombocytopenia Disposition: 01 HOME / SELF CARE / HOMELESS Condition: Stable Additional Instructions: Follow-up with your primary doctor in 1-2 days. Return to ER for persistent or worsening symptoms. Discharged With: Relative Critical Care Note Critical Care Time?: No Stability Stability form required: No Heart Score Heart Score: Heart Score Response (Comments) Value History N/A 0 EKG N/A 0 Age N/A 0 Risk Factors N/A 0 Troponin N/A 0 Total 0 I personally scribed for VANDANA BENSON MD ([facility]) on 05/18/24 at 13:01. Electronically submitted by Sanam Campos ([facility]). I personally scribed for VANDANA BENSON MD ([facility]) on 05/18/24 at 14:17. Electronically submitted by Sanam Campos ([facility] I personally scribed for VANDANA BENSON MD ([facility]) on 05/18/24 at 16:27. Electronically submitted by Sanam Campos ([facility]). VANDANA BENSON MD May 18, 2024 13:01
[2024-05-18 13:24] LABS: Basophils # (auto) 0.1 10 ^3/uL (0-0.2); Basophils % (auto) 1.6 % (0.0-2.0); Eosinophils # (auto) 0.5 10 ^3/uL (0-0.8); Eosinophils % (auto) 7.3 % (0.0-7.0); Hematocrit 25.3 % (41.0-53.0); Hemoglobin 8.8 g/dL (13.5-17.5); Lymphocytes # (auto) 1.2 10 ^3/uL (0.4-5.4); Lymphocytes % (auto) 18.7 % (10.0-50.0); Mean Corpuscular Hemoglobin 29.3 pg (28.0-32.0); Mean Corpuscular Hgb Conc. 34.8 g/dL (32.0-36.0); Mean Corpuscular Volume 84.3 fL (80.0-100.0); Monocytes # (auto) 0.2 10 ^3/uL (0-1.3); Monocytes % (auto) 2.9 % (0.0-12.0); Neutrophils # (auto) 4.6 10 ^3/uL (1.6-8.6); Neutrophils % (auto) 69.5 % (37.0-80.0); Platelet Count (auto) 108 10^3/uL (140-450); Red Cell Distribution Width 15.3 % (11.8-14.3); White Blood Cell 6.6 10^3/uL (4.4-10.8)
[2024-05-18 13:31] LABS: Chloride 107 mmol/L (98-107); Potassium 3.5 mmol/L (3.5-5.1); Sodium 138 mmol/L (136-145)
[2024-05-18 13:32] LABS: Anion Gap 7 (5-15); Calcium 9.6 mg/dL (8.7-10.4); Carbon Dioxide 24 mmol/L (20-31)
[2024-05-18 13:37] LABS: BUN/Creatinine Ratio 15.4 (10.0-20.0); Blood Urea Nitrogen 12 mg/dL (9-23); Glucose 91 mg/dL (74-106)
[2024-05-18 13:58] LABS: INR 1.04 (0.9-1.15); Partial Thromboplastin Time 29.6 SEC (24.5-34.5)
--- NOTE | 2024-05-18 14:01 | DVH ---
EXAM: XR Chest, 1 View CLINICAL INDICATION: gen weak TECHNIQUE: Frontal view of the chest. COMPARISON: XY CHEST PORTABLE on DOS: 05/07/24, XY CHEST PORTABLE on DOS: 04/24/24, XY CHEST XRAY 1 EW on DOS: 04/01/24, XY CHEST PORTABLE on DOS: 03/09/24, XY CHEST PORTABLE on DOS: 02/20/24 FINDINGS: LUNGS AND PLEURAL SPACES: Unremarkable. No consolidation. No pneumothorax. HEART: Unremarkable. No cardiomegaly. MEDIASTINUM: Unremarkable. Normal mediastinal contour. BONES/JOINTS: Unremarkable. No acute fracture. OTHER FINDINGS: . None. IMPRESSION: No acute cardiopulmonary process.
--- NOTE | 2024-05-18 14:55 | DVH ---
EXAM: CT HEAD WITHOUT CONTRAST INDICATION: presyncope TECHNIQUE: CT of the head without intravenous contrast. Radiation Dose : 1. Head: CT Dose: CTDI volume is 56 mGy. Dose-length product is 1149 mGy*cm The dose indicators for CT are the volume Computed Tomography (CT) Dose Index (CTDIvol) and the Dose Length Product (DLP), and are measured in units of mGy and mGy-cm, respectively. These indicators are not patient dose, but values generated from the CT scanner acquisition factors. The report includes radiation exposure data for exposures received during this examination. COMPARISON: CT HEAD WITHOUT CONTRAST on DOS: 01/30/24, CT HEAD WITHOUT CONTRAST on DOS: 01/02/24 FINDINGS: There is no evidence of acute intracranial hemorrhage, extra-axial collection, mass effect, midline s hift, herniation or hydrocephalus. The ventricles, sulci and cisterns are age appropriate. The dasilva-white differentiation is intact. Patchy periventricular and subcortical white matter hypoattenuation is nonspecific but may be related to small vessel ischemic disease. The visualized paranasal sinuses and mastoid air cells are clear. The surrounding soft tissues and osseous structures are unremarkable. IMPRESSION: 1. No acute intracranial abnormality. Radiation optimization: All CT scans at this facility use at least one of these dose optimization wendy hniques: automated exposure control mA and/or kV adjustment per patient size (includes targeted exam s where dose is matched to clinical indication) or iterative reconstruction.
== END 2024-05-18 16:34 | disposition home or self-care (01) ==
LOC: ER 12:21
DX: D64.9 Anemia, unspecified (principal); D69.6 Thrombocytopenia, unspecified; J44.9 Chronic obstructive pulmonary disease, unspecified; F20.9 Schizophrenia, unspecified; F17.210 Nicotine dependence, cigarettes, uncomplicated; R06.02 Shortness of breath; Z90.89 Acquired absence of other organs; Z79.82 Long term (current) use of aspirin; Z79.899 Other long term (current) drug therapy; Z85.46 Personal history of malignant neoplasm of prostate
CPT/HCPCS: 36415; 70450; 71045; 80048; 83880; 84484; 85025; 85610; 85730; 86850; 86870; 86900; 86901

== ENCOUNTER 2024-05-27 11:36 | Inpatient (IN) | payer MEDICARE, MEDICAID ==
[~2024-05-27] VITALS: Ht 180.3 cm; Wt 76.8 kg
--- NOTE | 2024-05-27 11:58 | ED.PDOC ---
History of Present Illness HPI Comments 68 y.o male with PMHx of COPD, anemia, weekly blood transfusions, right leg cellulitis and Myelodysplastic syndrome, presents to the ED for a chief complaint of dizziness and "faint" sensation that started 1 day ago. Patient reports when dizziness presents, he usually needs a blood transfusion. Last transfusion was about 2 weeks ago. Patient also mentions right leg pain where cellulitis was previous. Patient denies any other symptoms, including bleeding or complaints at this time. Patient does admit to smoking 8 cigarettes a day. Time Seen by MD: 11:49 Primary Care Provider: MADDIE Reviewed Notes: Nurses Notes, Medications, Allergies Allergies: Coded Allergies: NO KNOWN ALLERGIES (Unverified , 12/04/23) Home Meds Active Scripts Cephalexin (KEFLEX CAPSULE) 250 Mg Cp, 500 MG PO TID for 10 Days, #30 CAP Prov:VENKAT SMILEY MD 04/10/24 Hydrocodone-Acetaminophen (Hydrocodone Bitartrate/AC 10-325 mg) 1 Tab Tab, 1 TAB PO TIDP PRN for 7 Days, #21 TAB Prov:VENKAT SMILEY MD 04/10/24 Hydrocortone (Hydrocortisone 1%) 1 Applic Ap, 1 APPLIC TOP BID, #30 GRAMS Prov:JUAN ROGERS MD 02/08/24 Reported Medications Aspirin (Aspir-81) 81 Mg Tab, 1 TAB PO DAILY, #30 TAB 5 Refills 03/10/24 Midodrine HCl (Midodrine Hydrochloride) 5 Mg Tab, 1 TAB PO TID 01/30/24 Risperidone (Risperidone) 2 Mg Tab, 2 MG PO BID, TAB 12/05/23 Nicotine (Nicoderm 21MG/24HR) 1 Patch Ph, 1 PATCH TOP DAILY, #28 PATCH 1 Refill 12/05/23 Mirtazapine (Mirtazapine Oral Disintegrating Tablet) 45 Mg Tab, 1 TAB PO QPM, #30 TAB 1 Refill 12/05/23 Melatonin (KP MELATONIN) 3 Mg Tab, 3 MG PO HS, TAB 12/05/23 Leuprolide Acetate (3 Month) (Lupron Depot) 22.5 Mg Inj, 22.5 MG IM, INJ 12/05/23 Gabapentin (Gabapentin) 600 Mg Tab, 600 MG PO BID, TAB 12/05/23 Folic Acid (Folic Acid) 1 Mg Tab, 1 MG PO DAILY for 30 Days, MG 12/05/23 Fluticasone Furoate (Inhalatio (Arnuity Ellipta) 200 Mcg/Act Inh, 200 MCG IN, INHALER 12/05/23 Atorvastatin Calcium (ATORVASTATIN CALCIUM) 40 Mg Tab, 1 TAB PO DAILY, #30 TAB 5 Refills 12/05/23 Albuterol Sulfate (VENTOLIN MDI) 90 Mcg Ih, 90 MCG IN, INH 12/05/23 Information Source: Patient Mode of Arrival: Walker Severity: Moderate Timing: Days (1) Duration: Since onset Past Medical History PAST MEDICAL HISTORY: Anemia, Cancer, COPD, Schizophrenia Past Medical History (Other): right leg cellulitis and Myelodysplastic syndrome, weekly blood transfusions Surgical History (Other): right leg Family History Family History: Reviewed,noncontributory to illness Social History Smoker: Cigarettes Alcohol: Denies ETOH Use Drugs: Denies Drug Use Lives In: Home Constitutional: denies: chills, diaphoresis, fatigue, fever, malaise, sweats, weakness, others EENTM: denies: blurred vision, double vision, ear bleeding, ear discharge, ear drainage, ear pain, ear ringing, eye pain, eye redness, hearing loss, mouth pain, mouth swelling, nasal discharge, nose bleeding, nose congestion, nose pain, photophobia, tearing, throat pain, throat swelling, voice changes, others Respiratory: denies: cough, hemoptysis, orthopnea, SOB at rest, shortness of breath, SOB with excertion, stridor, wheezing, others Cardiovascular: denies: chest pain, dizzy spells, diaphoresis, Dyspnea on exertion, edema, irregular heart beat, left arm pain, lightheadedness, palpitations, PND, syncope, others Gastrointestinal: denies: abdomen distended, abdominal pain, blood streaked bowels, constipated, diarrhea, dysphagia, difficulty swallowing, hematemesis, melena, nausea, poor appetite, poor fluid intake, rectal bleeding, rectal pain, vomiting, others Genitourinary: denies: burning, dysuria, flank pain, frequency, hematuria, incontinence, penile discharge, penile sore, pain, testicle pain, testicle swelling, urgency, others Neurological: reports: dizziness; denies: fainting, headache, left sided numbness, left sided weakness, numbness, paresthesia, pre-existing deficit, right sided numbness, right sided weakness, seizure, speech problems, tingling, tremors, weakness, others Musculoskeletal: denies: back pain, gout, joint pain, joint swelling, muscle pain, muscle stiffness, neck pain, others Integumetry: denies: bruises, change in color, change in hair/nails, dryness, laceration, lesions, lumps, rash, wounds, others Allergic/Immunocompromised: denies: Difficulty Healing, Frequent Infections, Hives, Itching, others Hematologic/Lymphatic: denies: anemia, blood clots, easy bleeding, easy bruising, swollen glands, others Endocrine: denies: excessive hunger, excessive sweating, excessive thirst, excessive urination, flushing, intolerance to cold, intolerance to heat, unexplained weight gain, unexplained weight loss, others Psychiatric: denies: anxiety, bipolar disorder, depression, hopeless, panic disorder, schizophrenia, sleepless, suicidal, others All Other Systems: Reviewed and Negative Physical Exam General Appearance: Moderate Distress HEENT: Pale Conjuntivae (L), Pale Conjuntivae (R), Pharynx Normal, TMs Normal Neck: Full Range of Motion, Non-Tender, Normal, Normal Inspection Respiratory: Chest Non-Tender, Lungs Clear, No Accessory Muscle Use, No Respiratory Distress, Normal Breath Sounds Cardiovascular: No Edema, No JVD, No Murmur, No Gallop, Normal Peripheral Pulses, Regular Rate/Rhythm Breast Exam: Deferred Gastrointestinal: No Organomegaly, Non Tender, No Pulsatile Mass, Normal Bowel Sounds, Soft Genitalia: Deferred Pelvic: Deferred Rectal: Deferred Extremities: No calf tenderness, Normal capillary refill, No pedal edema Musculoskeletal : Apperance: Normal Neurologic: Alert, hosiery looper II-XII nml as Tested, No Motor Deficits, Normal Affect, Normal Mood, No Sensory Deficits Cerebellar Function: Normal Reflexes: Normal Skin: Dry, Pallor, Warm Lymphatic: No Adenopathy Was a procedure done? Was a procedure done?: No Differential Dx Considerations may include: Anemia, Electrolyte Imbalance, Dehydration, Benign paroxysmal positional vertigo (BPPV), Meniere's disease, vestibular neuritis, labyrinthitis X-Ray, Labs, Meds, VS Vital Signs Date Time Temp Pulse Resp B/P (MAP) Pulse Ox O2 Delivery O2 Flow Rate FiO2 05/27/24 15:06 98.7 111 16 99/73 99 0.0 21 98.7 05/27/24 14:42 98.7 58 16 99/73 (82) 98 98.7 05/27/24 13:00 109 17 98 Room Air* 0 21 05/27/24 13:00 99.1 109 17 92/60 (71) 98 99.1 05/27/24 11:54 98.4 112 18 116/71 (86) 99 Lab Test 05/27/24 12:49 Range/Units White Blood Count 6.7 4.4-10.8 10^3/uL Red Blood Count 2.33 L 4.5-5.90 10^6/uL Hemoglobin 6.7 *L 13.5-17.5 g/dL Hematocrit 19.6 L 41.0-53.0 % Mean Corpuscular Volume 83.8 80.0-100.0 fL Mean Corpuscular Hemoglobin 28.8 28.0-32.0 pg Mean Corpuscular Hemoglobin Concent 34.3 32.0-36.0 g/dL Red Cell Distribution Width 15.2 H 11.8-14.3 % Platelet Count 100 L 140-450 10^3/uL Mean Platelet Volume 9.6 6.9-10.8 fL Neutrophils (%) (Auto) 75.2 37.0-80.0 % Lymphocytes (%) (Auto) 15.9 10.0-50.0 % Monocytes (%) (Auto) 3.2 0.0-12.0 % Eosinophils (%) (Auto) 4.0 0.0-7.0 % Basophils (%) (Auto) 1.7 0.0-2.0 % Neutrophils # (Auto) 5.0 1.6-8.6 10 ^3/uL Lymphocytes # (Auto) 1.1 0.4-5.4 10 ^3/uL Monocytes # (Auto) 0.2 0-1.3 10 ^3/uL Eosinophils # (Auto) 0.3 0-0.8 10 ^3/uL Basophils # (Auto) 0.1 0-0.2 10 ^3/uL Nucleated Red Blood Cells 0.0 % Platelet Estimate Decreased Anisocytosis (manual) Slight Prothrombin Time 11.7 9.3-11.8 sec Prothrombin Time INR 1.12 0.9-1.15 Activated Partial Thromboplast Time 27.3 24.5-34.5 SEC Sodium Level 139 136-145 mmol/L Potassium Level 3.9 3.5-5.1 mmol/L Chloride Level 106 98-107 mmol/L Carbon Dioxide Level 24 20-31 mmol/L Anion Gap 9 5-15 Blood Urea Nitrogen 15 9-23 mg/dL Creatinine 0.70 0.700-1.30 mg/dL Glomerular Filtration Rate Calc 102 >90 mL/min BUN/Creatinine Ratio 21.4 H 10.0-20.0 Serum Glucose 105 74-106 mg/dL Calcium Level 9.6 8.7-10.4 mg/dL IV Hep-Lock was established The patient's CBC shows significant anemia with a hemoglobin of 6.7 and hematocrit of 19.6 The rest of the CBC is within normal limits The chemistry panel is within normal limits At this time, the patient was being typed and screened secondary to the anemia The patient will be transfused with 2 units of packed red blood cells At this time, the patient was being admitted to the hospitalist Time of 1ST Reevaluation: 11:53 Reevaluation 1ST: Unchanged Patient Education/Counseling: Diagnosis, Treatment, Prognosis Family Education/Counseling: No Family Present Departure 1 Departure Time of Disposition: 14:24 Impression: Primary Impression: Generalized weakness Additional Impression: Severe anemia Disposition: ADMITTED INPATIENT Admit to: [facility] Condition: Fair Critical Care Note Critical Care Time?: Yes (35 min-critical care time only) Stability Stability form required: Yes Unstable for transfer: Telemetry monitoring (Telemetry monitoring required), ED Physician Assesment (Clinical assesment) Heart Score Heart Score: Heart Score Response (Comments) Value History N/A 0 EKG N/A 0 Age N/A 0 Risk Factors N/A 0 Troponin N/A 0 Total 0 I personally scribed for LARISSA HART MD ([email or web address]) on 05/27/24 at 11:58. Electronically submitted by Chrissy Ortiz ([facility]). LARISSA HART MD May 27, 2024 11:58
[2024-05-27 13:00] VITALS: PULSE 109; RESP 17; O2SAT 98
[2024-05-27 13:28] LABS: Basophils # (auto) 0.1 10 ^3/uL (0-0.2); Eosinophils # (auto) 0.3 10 ^3/uL (0-0.8); Mean Corpuscular Volume 83.8 fL (80.0-100.0); Monocytes # (auto) 0.2 10 ^3/uL (0-1.3)
[2024-05-27 13:29] LABS: Basophils % (auto) 1.7 % (0.0-2.0); Hematocrit 19.6 % (41.0-53.0); Lymphocytes # (auto) 1.1 10 ^3/uL (0.4-5.4); Lymphocytes % (auto) 15.9 % (10.0-50.0); Mean Corpuscular Hemoglobin 28.8 pg (28.0-32.0); Mean Corpuscular Hgb Conc. 34.3 g/dL (32.0-36.0); Monocytes % (auto) 3.2 % (0.0-12.0); Neutrophils % (auto) 75.2 % (37.0-80.0); Platelet Count (auto) 100 10^3/uL (140-450); Red Blood Cells 2.33 10^6/uL (4.5-5.90); Red Cell Distribution Width 15.2 % (11.8-14.3); White Blood Cell 6.7 10^3/uL (4.4-10.8)
[2024-05-27 13:34] LABS: Chloride 106 mmol/L (98-107); Potassium 3.9 mmol/L (3.5-5.1); Sodium 139 mmol/L (136-145)
[2024-05-27 13:35] LABS: Anion Gap 9 (5-15); Calcium 9.6 mg/dL (8.7-10.4); Carbon Dioxide 24 mmol/L (20-31)
[2024-05-27 13:40] LABS: BUN/Creatinine Ratio 21.4 (10.0-20.0); Blood Urea Nitrogen 15 mg/dL (9-23); Glucose 105 mg/dL (74-106)
[2024-05-27 13:43] LABS: INR 1.12 (0.9-1.15); Partial Thromboplastin Time 27.3 SEC (24.5-34.5); Prothrombin Time 11.7 sec (9.3-11.8)
[2024-05-27 13:51] LABS: Hemoglobin 6.7 g/dL (13.5-17.5)
[2024-05-27 14:16] LABS: Anisocytosis Slight; Platelet Estimate Decreased
[2024-05-27] MEDS ORDERED: ACETAMINOPHEN 325 MG TAB PO PRN (14:45)
[2024-05-27] MEDS ORDERED: ALBUTEROL SULF 2.5 MG/0.5ML(0.5%) NEB SOLN NEB PRN (14:45)
[2024-05-27] MEDS ORDERED: HYDROcodone-ACET 5/325MG TAB PO PRN (14:45)
[2024-05-27] MEDS ORDERED: ONDANSETRON HCL 4 MG/2 ML VIAL IV PRN (14:45)
[2024-05-27] MEDS ORDERED: DOCUSATE SOD 100 MG CAP PO PRN (14:45)
[2024-05-27 15:06] VITALS: BP 99/73; PULSE 111; RESP 16; TEMP 98.7; O2SAT 99
--- NOTE | 2024-05-27 16:53 | DVHHP2 ---
History of Present Illness Reason for Visit: Severe anemia History of Present Illness The patient is a 68-year-old female with multiple past medical history including anemia, COPD, cancer, and schizophrenia presented to [facility] ED with complaint of dizziness. Patient reports symptoms progressively get worse with fainting sensation, weakness, getting worse that prompted this visit. Patient usually needs a blood transfusion, last transfusion was about 2 weeks ago. Patient was seen and evaluated in the ED, laboratory data shows WBC 6.7, hemoglobin 6.7, hematocrit 19.6, platelets 100, sodium 139, potassium 3.9, BUN 15, creatinine 0.70, GFR 102, glucose 105. Patient will receive 2 units of PRBC, please see medication orders section in the computer. On my assessment, patient denied chest pain, no headache, no diaphoresis, no shortness of breath, no nausea, no vomiting, no fever, no chills. Patient was admitted for further evaluation and medical management. Past Medical History Anemia, Cancer, COPD, Schizophrenia Right leg cellulitis, Myelodysplastic syndrome, Weekly blood transfusions Past Surgical History Right leg surgery Family History Reviewed, noncontributory to the management of this case. Past Social History Patient lives at home, smokes cigarettes, denies alcohol or illicit drugs abuse. Review of Systems Constitutional: Yes: Weakness; No: Fever, Chills, Sweats, Malaise, Other Eyes: No: Pain, Vision change, Conjunctivae inflammation, Eyelid inflammation, Other, Redness ENT: No: Ear pain, Ear discharge, Nose pain, Nose discharge, Nose congestion, Mouth pain, Mouth swelling, Throat pain, Throat swelling, Other Respiratory: No: Cough, Dry, Shortness of breath, SOB with excertion, Wheezing, Hemoptysis, Pleuritic Pain, Sputum, Wheezing, Other Cardiovascular: No: Chest Pain, Palpitations, Orthopnea, Paroxysmal Noc. Dyspnea, Edema, Lt Headedness, Other Gastrointestinal: No: Nausea, Vomiting, Abdominal Pain, Diarrhea, Constipation, Melena, Hematochezia, Other Genitourinary: No Dysuria, No Frequency, No Incontinence, No Hematuria, No Ret ention, No Other Musculoskeletal: other (Right knee pain/tenderness); No: neck pain, shoulder pain, arm pain, back pain, hand pain, leg pain, foot pain Skin: No: Rash, Lesions, Jaundice, Bruising, Other Neurological: Other (Dizziness); No: Weakness, Numbness, Incoordination, Change in speech, Confusion, Seizures Allergies: Coded Allergies: NO KNOWN ALLERGIES (Unverified , 12/04/23) Medications Current Medications Medications Dose Ordered Sig/Fabricio Route Start Time Stop Time Status Last Admin Dose Admin Atorvastatin Calcium 20 mg HS PO 05/27/24 22:00 Midodrine 5 mg TID@0600,1200,1800 PO 05/27/24 18:00 Folic Acid 1 mg DAILY PO 05/28/24 10:00 Gabapentin 300 mg TID PO 05/27/24 22:00 Albuterol 2.5 mg Q4HPRN PRN NEB 05/27/24 14:45 Acetaminophen/ Hydrocodone Bitart 1 tab Q4HP PRN PO 05/27/24 14:45 Ondansetron HCl 4 mg Q4HP PRN IV 05/27/24 14:45 Docusate Sodium 100 mg BIDPRN PRN PO 05/27/24 14:45 Acetaminophen 650 mg Q6HP PRN PO 05/27/24 14:45 Exam Vital Signs Vital Signs Date Time Temp Pulse Resp B/P (MAP) Pulse Ox O2 Delivery O2 Flow Rate FiO2 05/27/24 15:06 98.7 111 16 99/73 99 0.0 21 98.7 05/27/24 13:00 Room Air* General Appearance: Alert, Oriented X3, Cooperative, No acute distress HEENT: Atraumatic, PERRLA, EOMI, Mucous membr. moist/pink Respiratory: Clear to auscultation, Normal air movement Cardiovascular: Regular rate, Normal S1, Normal S2, No murmurs Abdominal: Normal bowel sounds, Soft, No tenderness, No hepatospenomegaly, No masses Extremities: No clubbing, No cyanosis, No edema, Normal pulses, Other (Right knee swelling/tenderness) Skin: No rashes, No breakdown, No significant lesion Neuro: Normal speech, Normal tone, Sensation intact, Cranial nerves 3-12 NL, Reflexes 2+, Other (Generalized weakness) Psych/Mental Status: Mental status NL, Mood NL Labs/Xrays Labs Test 05/27/24 12:49 Range/Units White Blood Count 6.7 4.4-10.8 10^3/uL Red Blood Count 2.33 L 4.5-5.90 10^6/uL Hemoglobin 6.7 *L 13.5-17.5 g/dL Hematocrit 19.6 L 41.0-53.0 % Mean Corpuscular Volume 83.8 80.0-100.0 fL Mean Corpuscular Hemoglobin 28.8 28.0-32.0 pg Mean Corpuscular Hemoglobin Concent 34.3 32.0-36.0 g/dL Red Cell Distribution Width 15.2 H 11.8-14.3 % Platelet Count 100 L 140-450 10^3/uL Mean Platelet Volume 9.6 6.9-10.8 fL Neutrophils (%) (Auto) 75.2 37.0-80.0 % Lymphocytes (%) (Auto) 15.9 10.0-50.0 % Monocytes (%) (Auto) 3.2 0.0-12.0 % Eosinophils (%) (Auto) 4.0 0.0-7.0 % Basophils (%) (Auto) 1.7 0.0-2.0 % Neutrophils # (Auto) 5.0 1.6-8.6 10 ^3/uL Lymphocytes # (Auto) 1.1 0.4-5.4 10 ^3/uL Monocytes # (Auto) 0.2 0-1.3 10 ^3/uL Eosinophils # (Auto) 0.3 0-0.8 10 ^3/uL Basophils # (Auto) 0.1 0-0.2 10 ^3/uL Nucleated Red Blood Cells 0.0 % Platelet Estimate Decreased Anisocytosis (manual) Slight Prothrombin Time 11.7 9.3-11.8 sec Prothrombin Time INR 1.12 0.9-1.15 Activated Partial Thromboplast Time 27.3 24.5-34.5 SEC Sodium Level 139 136-145 mmol/L Potassium Level 3.9 3.5-5.1 mmol/L Chloride Level 106 98-107 mmol/L Carbon Dioxide Level 24 20-31 mmol/L Anion Gap 9 5-15 Blood Urea Nitrogen 15 9-23 mg/dL Creatinine 0.70 0.700-1.30 mg/dL Glomerular Filtration Rate Calc 102 >90 mL/min BUN/Creatinine Ratio 21.4 H 10.0-20.0 Serum Glucose 105 74-106 mg/dL Calcium Level 9.6 8.7-10.4 mg/dL Assessment/Plan Assessment/Plan Severe anemia Generalized weakness Plan 1. Admit to telemetry unit 2. Breathing treatment 3. Pain control management 4. Management of fluids and electrolytes 5. Consultation for hospitalist 6. Diagnostic tests chest x-ray 7. DVT prophylaxis-on aspirin 8. Repeat labs CBC, CMP in a.m. 9. Continue with current medical management 10. Treatment plan discussed with patient and RN. Patient verbalized understanding. Plan discussed with: Patient, Other (RN) My Orders Orders - ROSALIO MCGINNIS DNP Procedure Category Date Status Time Atorvastatin (Lipitor) PHA 05/27/24 In Process 22:00 Midodrine Tablet PHA 05/27/24 In Process (Proamatine Tablet) 18:00 Folic Acid Tablet PHA 05/28/24 In Process 10:00 Gabapentin Capsule PHA 05/27/24 In Process (Neurontin Capsule) 22:00 Albuterol Medneb PHA 05/27/24 In Process (Ventolin Medneb) 14:45 Allergies KATIA 05/27/24 In Process 14:39 Code Status CODE 05/27/24 Transmitted 14:39 Oxygen Per Hour RT 05/27/24 Transmitted 14:39 Hydrocodone-Acet PHA 05/27/24 In Process 5/325mg Tab (Gregory 14:45 Ondansetron Hcl PHA 05/27/24 In Process (Zofran) 14:45 Docusate Sodium PHA 05/27/24 In Process Capsule (Colace 14:45 Fall Risk Precautions KATIA 05/27/[address] 14:39 Complete Blood Count LAB 05/28/24 Verified 04:00 Comprehensive LAB 05/28/24 Verified Metabolic Panel 04:00 Cardiac DIET 05/27/24 Transmitted Diet-2gna,Lofat,Lochol Dinner Condition: Serious KATIA 05/27/24 In Process 14:39 Acetaminophen Tablet PHA 05/27/24 In Process (Tylenol Tablet) 14:45 Bedrest With Bathroom KATIA 05/27/24 In Process Privileg 14:39 Sequential KATIA 05/27/24 In Process Compression Device Problem List: (1) Severe anemia (2) Generalized weakness Date of Service: May 27, 2024 Billing Provider: ROSALIO MCGINNIS DNP Common Visit Codes: 97980-[id number] INP/OBS CARE (HIGH) ROSALIO MCGINNIS DNP May 27, 2024 16:53
[2024-05-27] MEDS ORDERED: NITROGLYCERIN 0.4 MG SL TAB SL PRN (17:00)
[2024-05-27] MEDS ORDERED: MORPHINE SULFATE INJ 2 MG/ml SYRG IV PRN (17:00)
[2024-05-27 18:00] VITALS: BP 99/58; PULSE 89; RESP 18; TEMP 99.2; O2SAT 100
[2024-05-27 18:41] VITALS: PULSE 89; RESP 18; O2SAT 100
[2024-05-27] MEDS: MIDODRINE HCL 10 MG TAB PO SCH (18:54)
[2024-05-27] MEDS: ATORVASTATIN 20 MG TAB PO SCH (21:58)
[2024-05-27] MEDS: GABAPENTIN 300 MG CAP PO SCH (21:58)
[2024-05-27 22:57] VITALS: BP 84/42; PULSE 76; RESP 18; TEMP 98.4
[2024-05-27 23:20] VITALS: BP 84/48; PULSE 74; RESP 16; TEMP 98.4
[2024-05-28] VITALS (12 sets, daily range): BP systolic 80–89; BP diastolic 43–59; PULSE 63–90; RESP 16–20; TEMP 36.9; O2SAT 96–100
[2024-05-28] MEDS: FOLIC ACID 1 MG TAB PO SCH (09:42)
[2024-05-28] MEDS: risperiDONE 1 MG TAB PO SCH (09:42)
[2024-05-28] MEDS: ASPirin 81 mg TAB PO SCH (09:43)
[2024-05-28 10:07] LABS: Basophils # (auto) 0.1 10 ^3/uL (0-0.2); White Blood Cell 5.3 10^3/uL (4.4-10.8)
[2024-05-28 10:09] LABS: Basophils % (auto) 1.7 % (0.0-2.0); Eosinophils # (auto) 0.4 10 ^3/uL (0-0.8); Eosinophils % (auto) 7.8 % (0.0-7.0); Hematocrit 22.2 % (41.0-53.0); Hemoglobin 7.8 g/dL (13.5-17.5); Lymphocytes % (auto) 18.7 % (10.0-50.0); Mean Corpuscular Hemoglobin 29.7 pg (28.0-32.0); Mean Corpuscular Volume 84.8 fL (80.0-100.0); Monocytes # (auto) 0.2 10 ^3/uL (0-1.3); Monocytes % (auto) 4.6 % (0.0-12.0); Neutrophils # (auto) 3.6 10 ^3/uL (1.6-8.6); Neutrophils % (auto) 67.2 % (37.0-80.0); Platelet Count (auto) 74 10^3/uL (140-450); Red Blood Cells 2.62 10^6/uL (4.5-5.90); Red Cell Distribution Width 15.3 % (11.8-14.3)
[2024-05-28 10:40] LABS: Albumin 3.4 g/dL (3.2-4.8); Alkaline Phosphatase 86 U/L (46-116); Anion Gap 6 (5-15); Aspartate Aminotransferase 28 U/L (13-40); BUN/Creatinine Ratio 21.9 (10.0-20.0); Bilirubin, Total 1.1 mg/dL (0.2-1.0); Blood Urea Nitrogen 14 mg/dL (9-23); Calcium 8.9 mg/dL (8.7-10.4); Carbon Dioxide 25 mmol/L (20-31); Chloride 105 mmol/L (98-107); Glucose 112 mg/dL (74-106); Sodium 136 mmol/L (136-145); Total Protein 6.7 g/dL (5.7-8.2)
[2024-05-28 10:44] LABS: Alanine Aminotransferase 53 U/L (7-40)
--- NOTE | 2024-05-28 13:27 | DVHDSRES ---
Discharge Summary Date of Admission Resident Creating Document: MARI IZQUIERDO RESIDENT May 27, 2024 at 16:51 Date of Discharge: May 28, 2024 Admitting Diagnosis Anemia Labs/Diagnostic Data: Laboratory Results Test 05/28/24 09:50 05/27/24 12:49 White Blood Count 5.3 10^3/uL (4.4-10.8) Red Blood Count 2.62 10^6/uL (4.5-5.90) Hemoglobin 7.8 g/dL (13.5-17.5) Hematocrit 22.2 % (41.0-53.0) Mean Corpuscular Volume 84.8 fL (80.0-100.0) Mean Corpuscular Hemoglobin 29.7 pg (28.0-32.0) Mean Corpuscular Hemoglobin Concent 35.0 g/dL (32.0-36.0) Red Cell Distribution Width 15.3 % (11.8-14.3) Platelet Count 74 10^3/uL (140-450) Mean Platelet Volume 9.6 fL (6.9-10.8) Neutrophils (%) (Auto) 67.2 % (37.0-80.0) Lymphocytes (%) (Auto) 18.7 % (10.0-50.0) Monocytes (%) (Auto) 4.6 % (0.0-12.0) Eosinophils (%) (Auto) 7.8 % (0.0-7.0) Basophils (%) (Auto) 1.7 % (0.0-2.0) Neutrophils # (Auto) 3.6 10 ^3/uL (1.6-8.6) Lymphocytes # (Auto) 1.0 10 ^3/uL (0.4-5.4) Monocytes # (Auto) 0.2 10 ^3/uL (0-1.3) Eosinophils # (Auto) 0.4 10 ^3/uL (0-0.8) Basophils # (Auto) 0.1 10 ^3/uL (0-0.2) Nucleated Red Blood Cells 0.0 % Sodium Level 136 mmol/L (136-145) Potassium Level 4.0 mmol/L (3.5-5.1) Chloride Level 105 mmol/L (98-107) Carbon Dioxide Level 25 mmol/L (20-31) Anion Gap 6 (5-15) Blood Urea Nitrogen 14 mg/dL (9-23) Creatinine 0.64 mg/dL (0.700-1.30) Glomerular Filtration Rate Calc 104 mL/min (>90) BUN/Creatinine Ratio 21.9 (10.0-20.0) Serum Glucose 112 mg/dL (74-106) Calcium Level 8.9 mg/dL (8.7-10.4) Total Bilirubin 1.1 mg/dL (0.2-1.0) Aspartate Amino Transferase (AST) 28 U/L (13-40) Alanine Aminotransferase (ALT) 53 U/L (7-40) Alkaline Phosphatase 86 U/L (46-116) Total Protein 6.7 g/dL (5.7-8.2) Albumin 3.4 g/dL (3.2-4.8) Platelet Estimate Decreased Anisocytosis (manual) Slight Prothrombin Time 11.7 sec (9.3-11.8) Prothrombin Time INR 1.12 (0.9-1.15) Activated Partial Thromboplast Time 27.3 SEC (24.5-34.5) Other Laboratory Tests 05/28/24 09:50 Brief Hx & Hospital Course: Eugene Alejandro JR is a 68-year-old male with a PMH of chronic anemia, myelodysplastic syndrome, prostate cancer, COPD, schizophrenia, right leg cellulitis status post debridement presented to the ED with the chief complaints dizziness. Patient reported he has been diagnosed with MDS for age back since then he has been having weekly blood transfusions Angelique last transfusion was 2 weeks ago. Patient reported he has been having shortness of , fatty, felt like about to faint which prompted him to visit ED. on my assessment patient denies fever, nausea, vomiting, diarrhea, chest pain, diaphoresis, palpitations and other associated symptoms. Patient required hospital admission for further evaluation and management of the symptoms. Lab test showed his hemoglobin was 6.7 which required urgent transfusion of 2 packed RBC. Hemoglobin after the transfusion is 7.8. Continuously monitored lab. Due to MDS patient was advised to follow up with the Hematology Oncology on outpatient for the definitive management. Patient condition was improved, hemodynamically stable condition to be discharged home. Discharge plan discussed with the patient and agreed with the plan. Patient was advised about healthy lifestyle modifications including diet and exercise and to follow up with Hematology Oncology after the discharge. Pt is lying on bed General Appearance: Alert, Oriented X3, Cooperative, Not in acute distress HEENT: Atraumatic, Mucous membranes moist/pink Respiratory: Clear to auscultation, Normal air movement, No added sounds Cardiovascular: Regular rate, Normal S1, Normal S2, No murmurs Abdominal: Active bowel sounds, Soft, no distention, no tenderness Extremities: No edema, Normal pulses, No tenderness/swelling Skin: No Significant rash, except past surgical scars Neuro: Normal speech, sensorimotor deficits none Psych/Mental Status: Mental status NL, Mood NL Nurse was there as jesus manuelne during examination Condition at Discharge: Stable Final Diagnosis/Problems List # Chronic severe symptomatic normocytic normochromic anemia s/p transfusion from BM failure due to MDS # Thrombocytopenia due to MDS # Myelodysplastic syndrome (MDS) # history of multiple transfusions # COPD not in exacerbation Discharge Disposition: Home Discharge Instruct/Medications Diet: Cardiac 2g Na,low cholest Activity: No Restrictions, As Tolerated Follow Up/Referral: Hematology correctional treatment specialist for myelodysplastic syndrome PCP Medications: Continue home medications Discharge Statement: "Patient was advised to return to the ER or call 911 if any headaches, dizziness, shortness of breath, chest pain, abdominal pain, bleeding, fevers, or worsening of medical condition. Patient was counseled about treatment plan, medications, possible side effects, patientverbalized understanding. All questions were answered to the best of my ability. This discharge took greater then 30 minutes in planning, reviewing documentation, counseling the patient, and discussing with other team members." ASSESSMENT ASSESSMENT Assessment Severe, symptomatic, chronic normocytic, normochromic anemia MARI IZQUIERDO RESIDENT May 28, 2024 13:27
== END 2024-05-28 13:30 | disposition home or self-care (01) | DRG 812 ==
LOC: ER 11:36 → OVERFLOW 16:51 → TELE-WESTW 22:20
PROVIDERS: ADMIT Student in an Organized Health Care Education/Training Program; ATTEND Emergency Medicine
PROC: 30233N1 Transfusion of Nonautologous Red Blood Cells into Peripheral Vein, Percutaneous Approach (ICD-10-PCS; principal; 2024-05-27)
DX: D46.9 Myelodysplastic syndrome, unspecified (principal); J44.9 Chronic obstructive pulmonary disease, unspecified; F20.9 Schizophrenia, unspecified; D69.59 Other secondary thrombocytopenia; F17.210 Nicotine dependence, cigarettes, uncomplicated; Z79.2 Long term (current) use of antibiotics; Z79.891 Long term (current) use of opiate analgesic; Z79.899 Other long term (current) drug therapy; Z79.82 Long term (current) use of aspirin; Z79.1 Long term (current) use of non-steroidal anti-inflammatories (NSAID); Z85.9 Personal history of malignant neoplasm, unspecified
CPT/HCPCS: 36415; 80048; 80053; 85025; 85610; 85730; 86850; 86870; 86900; 86901; 86902; 86922; 87081; 99291; G0378

== ENCOUNTER 2024-06-04 05:59 | Inpatient (IN) | payer MEDICARE, MEDICAID ==
[~2024-06-04] VITALS: Ht 180.3 cm; Wt 74.6 kg
[2024-06-04] VITALS (12 sets, daily range): BP systolic 80–96; BP diastolic 36–57; PULSE 66–85; RESP 12–18; TEMP 98–98.6; O2SAT 98–99
--- NOTE | 2024-06-04 06:48 | ED.PDOC ---
History of Present Illness HPI Comments 68 year old male presents to the ED with chief complaint of abnormal labs. Patient reports that he has been feeling dizzy, weak, and SOB for the past few days due to his history of anemia. Patient relays that he last got transfused with blood on 05/27/24. Patient denies any N/V, LOC, headache, chest pain, or numbness. Chief Complaint: Abnormal LAB's Time Seen by MD: 06:46 Primary Care Provider: MADDIE Reviewed Notes: Nurses Notes, Medications, Allergies Allergies: Coded Allergies: NO KNOWN ALLERGIES (Unverified , 12/04/23) Home Meds Active Scripts Cephalexin (KEFLEX CAPSULE) 250 Mg Cp, 500 MG PO TID for 10 Days, #30 CAP Prov:VENKAT SMILEY MD 04/10/24 Hydrocodone-Acetaminophen (Hydrocodone Bitartrate/AC 10-325 mg) 1 Tab Tab, 1 TAB PO TIDP PRN for 7 Days, #21 TAB Prov:VENKAT SMILEY MD 04/10/24 Hydrocortone (Hydrocortisone 1%) 1 Applic Ap, 1 APPLIC TOP BID, #30 GRAMS Prov:JUAN ROGERS MD 02/08/24 Reported Medications Aspirin (Aspir-81) 81 Mg Tab, 1 TAB PO DAILY, #30 TAB 5 Refills 03/10/24 Midodrine HCl (Midodrine Hydrochloride) 5 Mg Tab, 1 TAB PO TID 01/30/24 Risperidone (Risperidone) 2 Mg Tab, 2 MG PO BID, TAB 12/05/23 Nicotine (Nicoderm 21MG/24HR) 1 Patch Ph, 1 PATCH TOP DAILY, #28 PATCH 1 Refill 12/05/23 Mirtazapine (Mirtazapine Oral Disintegrating Tablet) 45 Mg Tab, 1 TAB PO QPM, #30 TAB 1 Refill 12/05/23 Melatonin (KP MELATONIN) 3 Mg Tab, 3 MG PO HS, TAB 12/05/23 Leuprolide Acetate (3 Month) (Lupron Depot) 22.5 Mg Inj, 22.5 MG IM, INJ 12/05/23 Gabapentin (Gabapentin) 600 Mg Tab, 600 MG PO BID, TAB 12/05/23 Folic Acid (Folic Acid) 1 Mg Tab, 1 MG PO DAILY for 30 Days, MG 12/05/23 Fluticasone Furoate (Inhalatio (Arnuity Ellipta) 200 Mcg/Act Inh, 200 MCG IN, INHALER 12/05/23 Atorvastatin Calcium (ATORVASTATIN CALCIUM) 40 Mg Tab, 1 TAB PO DAILY, #30 TAB 5 Refills 12/05/23 Albuterol Sulfate (VENTOLIN MDI) 90 Mcg Ih, 90 MCG IN, INH 12/05/23 Information Source: Patient Mode of Arrival: Ambulatory Severity: Moderate Timing: Days Duration: Since onset Prehospital treatment: None Past Medical History PAST MEDICAL HISTORY: Anemia, Cancer, COPD, Schizophrenia Family History Family History: Reviewed,noncontributory to illness Social History Smoker: Cigarettes Alcohol: Denies ETOH Use Drugs: Denies Drug Use Lives In: Home Constitutional: reports: weakness; denies: chills, diaphoresis, fatigue, fever, malaise, sweats, others EENTM: denies: blurred vision, double vision, ear bleeding, ear discharge, ear drainage, ear pain, ear ringing, eye pain, eye redness, hearing loss, mouth pain, mouth swelling, nasal discharge, nose bleeding, nose congestion, nose pain, photophobia, tearing, throat pain, throat swelling, voice changes, others Respiratory: reports: shortness of breath; denies: cough, hemoptysis, orthopnea, SOB at rest, SOB with excertion, stridor, wheezing, others Cardiovascular: denies: chest pain, dizzy spells, diaphoresis, Dyspnea on exertion, edema, irregular heart beat, left arm pain, lightheadedness, palpitations, PND, syncope, others Gastrointestinal: denies: abdomen distended, abdominal pain, blood streaked bowels, constipated, diarrhea, dysphagia, difficulty swallowing, hematemesis, melena, nausea, poor appetite, poor fluid intake, rectal bleeding, rectal pain, vomiting, others Genitourinary: denies: burning, dysuria, flank pain, frequency, hematuria, incontinence, penile discharge, penile sore, pain, testicle pain, testicle swelling, urgency, others Neurological: reports: dizziness; denies: fainting, headache, left sided numbness, left sided weakness, numbness, paresthesia, pre-existing deficit, right sided numbness, right sided weakness, seizure, speech problems, tingling, tremors, weakness, others Musculoskeletal: denies: back pain, gout, joint pain, joint swelling, muscle pain, muscle stiffness, neck pain, others Integumetry: denies: bruises, change in color, change in hair/nails, dryness, laceration, lesions, lumps, rash, wounds, others Allergic/Immunocompromised: denies: Difficulty Healing, Frequent Infections, Hives, Itching, others Hematologic/Lymphatic: denies: anemia, blood clots, easy bleeding, easy bruising, swollen glands, others Endocrine: denies: excessive hunger, excessive sweating, excessive thirst, excessive urination, flushing, intolerance to cold, intolerance to heat, unexplained weight gain, unexplained weight loss, others Psychiatric: denies: anxiety, bipolar disorder, depression, hopeless, panic disorder, schizophrenia, sleepless, suicidal, others All Other Systems: Reviewed and Negative Physical Exam General Appearance: Moderate Distress, Normal HEENT: Normal ENT Inspection, PERRL/EOMI Neck: Full Range of Motion, Non-Tender, Normal, Normal Inspection Respiratory: Chest Non-Tender, Lungs Clear, No Accessory Muscle Use, No Respiratory Distress, Normal Breath Sounds Cardiovascular: No Edema, No JVD, No Murmur, No Gallop, Normal Peripheral Pulses, Regular Rate/Rhythm Breast Exam: Deferred Gastrointestinal: No Organomegaly, Non Tender, No Pulsatile Mass, Normal Bowel Sounds, Soft Genitalia: Deferred Pelvic: Deferred Rectal: Deferred Extremities: No calf tenderness, Normal capillary refill, Normal inspection, Normal range of motion, Non-tender, No pedal edema Musculoskeletal : Apperance: Normal Neurologic: Alert, helper/driver II-XII nml as Tested, No Motor Deficits, Normal Affect, Normal Mood, No Sensory Deficits Cerebellar Function: Normal Reflexes: Normal Skin: Dry, Pallor, Warm Peripheral Pulses: 3+ Radial (R), 3+ Radial (L) Lymphatic: No Adenopathy Was a procedure done? Was a procedure done?: No Differential Dx Considerations may include: Symptomatic anemia X-Ray, Labs, Meds, VS Vital Signs Date Time Temp Pulse Resp B/P (MAP) Pulse Ox O2 Delivery O2 Flow Rate FiO2 06/04/24 06:03 98.8 97 14 114/69 (84) 98 98.8 Lab Test 06/04/24 06:53 Range/Units White Blood Count 5.0 4.4-10.8 10^3/uL Red Blood Count 2.82 L 4.5-5.90 10^6/uL Hemoglobin 8.2 L 13.5-17.5 g/dL Hematocrit 23.8 L 41.0-53.0 % Mean Corpuscular Volume 84.6 80.0-100.0 fL Mean Corpuscular Hemoglobin 29.1 28.0-32.0 pg Mean Corpuscular Hemoglobin Concent 34.4 32.0-36.0 g/dL Red Cell Distribution Width 15.6 H 11.8-14.3 % Platelet Count 91 L 140-450 10^3/uL Mean Platelet Volume 8.8 6.9-10.8 fL Neutrophils (%) (Auto) 72.1 37.0-80.0 % Lymphocytes (%) (Auto) 16.4 10.0-50.0 % Monocytes (%) (Auto) 3.8 0.0-12.0 % Eosinophils (%) (Auto) 5.8 0.0-7.0 % Basophils (%) (Auto) 1.9 0.0-2.0 % Neutrophils # (Auto) 3.6 1.6-8.6 10 ^3/uL Lymphocytes # (Auto) 0.8 0.4-5.4 10 ^3/uL Monocytes # (Auto) 0.2 0-1.3 10 ^3/uL Eosinophils # (Auto) 0.3 0-0.8 10 ^3/uL Basophils # (Auto) 0.1 0-0.2 10 ^3/uL Nucleated Red Blood Cells 0.0 % Sodium Level 140 136-145 mmol/L Potassium Level 3.5 3.5-5.1 mmol/L Chloride Level 108 H 98-107 mmol/L Carbon Dioxide Level 23 20-31 mmol/L Anion Gap 9 5-15 Blood Urea Nitrogen 13 9-23 mg/dL Creatinine 0.79 0.700-1.30 mg/dL Glomerular Filtration Rate Calc 98 >90 mL/min BUN/Creatinine Ratio 16.5 10.0-20.0 Serum Glucose 116 H 74-106 mg/dL Calcium Level 9.6 8.7-10.4 mg/dL Patient alert. Generalized weakness. Last blood transfusion was few weeks ago. Vitals stable. Answering questions. Continues to have weakness. Even though his hemoglobin is above seven he will benefit from blood transfusion. Explained to the patient. He is insisting on blood transfusion. Continue cardiac monitoring. Time of 1ST Reevaluation: 07:46 Reevaluation 1ST: Unchanged Patient Education/Counseling: Diagnosis, Treatment Family Education/Counseling: No Family Present Additional Information Previous visit documents reviewed: 05/27/24 for severe anemia The following tests were ordered, and results were reviewed by me: CBC, BMP, type and screen Additional Information was gathered from interviewing the following independent historians: None I reviewed and agreed with the following test results read by other providers: None I discussed treatment and results with medical personnel and: Patient Departure 1 Departure Time of Disposition: 07:48 Impression: Primary Impression: Symptomatic anemia Disposition: ADMITTED INPATIENT Admit to: Med Surg Condition: Guarded Critical Care Note Critical Care Time?: No Stability Stability form required: No Heart Score Heart Score: Heart Score Response (Comments) Value History N/A 0 EKG N/A 0 Age N/A 0 Risk Factors N/A 0 Troponin N/A 0 Total 0 I personally scribed for TEE ATKINS MD ([email or web address]) on 06/04/24 at 06:48. Electronically submitted by Mason Montano ([email or web address]). TEE ATKINS MD Jun 04, 2024 06:48
[2024-06-04 07:19] LABS: Basophils # (auto) 0.1 10 ^3/uL (0-0.2); Basophils % (auto) 1.9 % (0.0-2.0); Eosinophils # (auto) 0.3 10 ^3/uL (0-0.8); Eosinophils % (auto) 5.8 % (0.0-7.0); Hematocrit 23.8 % (41.0-53.0); Hemoglobin 8.2 g/dL (13.5-17.5); Lymphocytes # (auto) 0.8 10 ^3/uL (0.4-5.4); Lymphocytes % (auto) 16.4 % (10.0-50.0); Mean Corpuscular Hemoglobin 29.1 pg (28.0-32.0); Mean Corpuscular Hgb Conc. 34.4 g/dL (32.0-36.0); Mean Corpuscular Volume 84.6 fL (80.0-100.0); Monocytes # (auto) 0.2 10 ^3/uL (0-1.3); Monocytes % (auto) 3.8 % (0.0-12.0); Neutrophils # (auto) 3.6 10 ^3/uL (1.6-8.6); Neutrophils % (auto) 72.1 % (37.0-80.0); Platelet Count (auto) 91 10^3/uL (140-450); Red Blood Cells 2.82 10^6/uL (4.5-5.90); Red Cell Distribution Width 15.6 % (11.8-14.3)
[2024-06-04 07:31] LABS: Potassium 3.5 mmol/L (3.5-5.1); Sodium 140 mmol/L (136-145)
[2024-06-04 07:32] LABS: Anion Gap 9 (5-15); Calcium 9.6 mg/dL (8.7-10.4); Carbon Dioxide 23 mmol/L (20-31)
[2024-06-04 07:38] LABS: BUN/Creatinine Ratio 16.5 (10.0-20.0); Blood Urea Nitrogen 13 mg/dL (9-23)
[2024-06-04 07:39] LABS: Chloride 108 mmol/L (98-107); Glucose 116 mg/dL (74-106)
[2024-06-04 08:59] LABS: Hematocrit 23.3 % (41.0-53.0)
[2024-06-04] MEDS ORDERED: HYDROcodone-ACET 5/325MG TAB PO PRN (09:00)
[2024-06-04] MEDS ORDERED: ONDANSETRON HCL 4 MG/2 ML VIAL IV PRN (09:00)
[2024-06-04] MEDS ORDERED: DOCUSATE SOD 100 MG CAP PO PRN (09:00)
[2024-06-04] MEDS ORDERED: ACETAMINOPHEN 325 MG TAB PO PRN (09:00)
--- NOTE | 2024-06-04 09:15 | DVHHP2 ---
History of Present Illness Reason for Visit: Generalized weakness, syncopal episode History of Present Illness Eugene Alejandro is a 68-year-old male with past medical history of prostate cancer, MDS, schizophrenia, and COPD, who came in for generalized weakness. Patient is seen frequently with generalized weakness requiring blood transfusion due to myelodysplastic syndrome. Today patient appears more lethargic, dizzy, and frail. Patient states he had a syncopal episode last night in his bathroom. CBC showed a Hgb of 8.2, STAT repeat H&H showed Hgb 8.0. Will transfuse patient due to symptomatic anemia. Pulmonary: COPD Heme/Onc: Cancer, Other (MDS) Psych: Schizophrenia Past Surgical History: Other (right leg), Tonsillectomy Smoke: <1 pack per day ALCOHOL: none Drugs: None Lives: with Family Domestic Violence: Neg Review of Systems Constitutional: Yes: Weakness, Malaise; No: Fever, Chills, Sweats, Other Eyes: No: Pain, Vision change, Conjunctivae inflammation, Eyelid inflammation, Other, Redness ENT: No: Ear pain, Ear discharge, Nose pain, Nose discharge, Nose congestion, Mouth pain, Mouth swelling, Throat pain, Throat swelling, Other Respiratory: No: Cough, Dry, Shortness of breath, SOB with excertion, Wheezing, Hemoptysis, Pleuritic Pain, Sputum, Wheezing, Other Cardiovascular: No: Chest Pain, Palpitations, Orthopnea, Paroxysmal Noc. Dyspnea, Edema, Lt Headedness, Other Gastrointestinal: No: Nausea, Vomiting, Abdominal Pain, Diarrhea, Constipation, Melena, Hematochezia, Other Genitourinary: No Dysuria, No Frequency, No Incontinence, No Hematuria, No Retention, No Other Musculoskeletal: No: other, neck pain, shoulder pain, arm pain, back pain, hand pain, leg pain, foot pain Skin: No: Rash, Lesions, Jaundice, Bruising, Other Neurological: Other (syncopal episode last night); No: Weakness, Numbness, Incoordination, Change in speech, Confusion, Seizures Allergies: Coded Allergies: NO KNOWN ALLERGIES (Unverified , 12/04/23) Exam Vital Signs Vital Signs Date Time Temp Pulse Resp B/P (MAP) Pulse Ox O2 Delivery O2 Flow Rate FiO2 06/04/24 08:42 97.6 91 20 117/72 (87) 98 97.6 General Appearance: Alert, Oriented X3, Cooperative, moderate distress HEENT: Atraumatic, PERRLA Respiratory: Clear to auscultation, Normal air movement Cardiovascular: Regular rate, Normal S1, Normal S2, No murmurs Abdominal: Normal bowel sounds, Soft, No tenderness, No hepatospenomegaly Extremities: No clubbing, No cyanosis, Normal pulses, No tenderness/swelling Skin: No rashes, No breakdown, No significant lesion Neuro: Normal gait, Normal speech, Strength at 5/5 X4 ext, Normal tone Psych/Mental Status: Mental status NL, Mood NL Labs/Xrays Labs Test 06/04/24 08:48 06/04/24 06:53 Range/Units White Blood Count 5.0 4.4-10.8 10^3/uL Red Blood Count 2.82 L 4.5-5.90 10^6/uL Mean Corpuscular Volume 84.6 80.0-100.0 fL Mean Corpuscular Hemoglobin 29.1 28.0-32.0 pg Mean Corpuscular Hemoglobin Concent 34.4 32.0-36.0 g/dL Red Cell Distribution Width 15.6 H 11.8-14.3 % Platelet Count 91 L 140-450 10^3/uL Mean Platelet Volume 8.8 6.9-10.8 fL Neutrophils (%) (Auto) 72.1 37.0-80.0 % Lymphocytes (%) (Auto) 16.4 10.0-50.0 % Monocytes (%) (Auto) 3.8 0.0-12.0 % Eosinophils (%) (Auto) 5.8 0.0-7.0 % Basophils (%) (Auto) 1.9 0.0-2.0 % Neutrophils # (Auto) 3.6 1.6-8.6 10 ^3/uL Lymphocytes # (Auto) 0.8 0.4-5.4 10 ^3/uL Monocytes # (Auto) 0.2 0-1.3 10 ^3/uL Eosinophils # (Auto) 0.3 0-0.8 10 ^3/uL Basophils # (Auto) 0.1 0-0.2 10 ^3/uL Nucleated Red Blood Cells 0.0 % Sodium Level 140 136-145 mmol/L Potassium Level 3.5 3.5-5.1 mmol/L Chloride Level 108 H 98-107 mmol/L Carbon Dioxide Level 23 20-31 mmol/L Anion Gap 9 5-15 Blood Urea Nitrogen 13 9-23 mg/dL Creatinine 0.79 0.700-1.30 mg/dL Glomerular Filtration Rate Calc 98 >90 mL/min BUN/Creatinine Ratio 16.5 10.0-20.0 Serum Glucose 116 H 74-106 mg/dL Calcium Level 9.6 8.7-10.4 mg/dL Assessment/Plan Assessment/Plan Assessment: Symptomatic anemia, Syncopal episode, Hypotension, Plan: Admit to Med-Surg, Repeat STAT H&H, Transfuse 1 unit PRBC, Blood cultures, Wound culture, Urine culture, U/A, IV hydration, IV antibiotics, Wound care consult, Manage/Monitor CBC closely, Plan discussed with: Patient My Orders Orders - ANNIKA SYDE Procedure Category Date Status Time Hemoglobin & LAB 06/04/24 In Process Hematocrit 08:29 Admit ADMIT 06/04/24 Transmitted 08:56 Code Status CODE 06/04/24 Transmitted 08:56 2 Gm Sodium Diet DIET 06/04/24 Transmitted Breakfast Sodium Chloride Lock PHA 06/04/24 Transmitted (Saline Lock Ns) 14:00 Hydrocodone-Acet PHA 06/04/24 Transmitted 5/325mg Tab (Sedan 09:00 Ondansetron Hcl PHA 06/04/24 Transmitted (Zofran) 09:00 Docusate Sodium PHA 06/04/24 Transmitted Capsule (Colace 09:00 Complete Blood Count LAB 06/05/24 Verified 04:00 Condition: Critical KATIA 06/04/24 In Process 08:56 Acetaminophen Tablet PHA 06/04/24 Transmitted (Tylenol Tablet) 09:00 Date of Service: Jun 04, 2024 Billing Provider: ANNIKA SYED Common Visit Codes: [id number] INP/OBS CARE (MOD) ANNIKA SYED Jun 04, 2024 09:15
[2024-06-04] MEDS: SODIUM CHLORIDE 0.9% 1,000 ML IV ONE ×2 (11:45→18:45)
[2024-06-04] MEDS: SODIUM CHLOR 0.9% PF (SALINE LOCK) 10ML VIAL/SYR IV SCH (14:18)
[2024-06-04] MEDS: cefTRIAXone 1GM/50ML D5W 50 ML IV ONE (18:45)
[2024-06-04 19:04] LABS: Basophils # (auto) 0.1 10 ^3/uL (0-0.2); Basophils % (auto) 1.4 % (0.0-2.0); Eosinophils # (auto) 0.4 10 ^3/uL (0-0.8); Eosinophils % (auto) 7.7 % (0.0-7.0); Hematocrit 21.9 % (41.0-53.0); Hemoglobin 7.5 g/dL (13.5-17.5); Lymphocytes # (auto) 1.1 10 ^3/uL (0.4-5.4); Lymphocytes % (auto) 22.6 % (10.0-50.0); Mean Corpuscular Hemoglobin 28.6 pg (28.0-32.0); Mean Corpuscular Hgb Conc. 34.1 g/dL (32.0-36.0); Mean Corpuscular Volume 83.7 fL (80.0-100.0); Monocytes # (auto) 0.2 10 ^3/uL (0-1.3); Monocytes % (auto) 3.5 % (0.0-12.0); Neutrophils # (auto) 3.2 10 ^3/uL (1.6-8.6); Neutrophils % (auto) 64.8 % (37.0-80.0); Nucleated Red Blood Cells % 0.1 %; Platelet Count (auto) 76 10^3/uL (140-450); Red Blood Cells 2.62 10^6/uL (4.5-5.90)
[2024-06-04] MEDS: ALBUMIN 5% 250 ML IV ONE ×2 (23:25→23:26)
[2024-06-05] MEDS: NOREPINEPHRINE 8 MG/250ML KIT 250 ML IV SCH (00:53)
[2024-06-05 01:27] LABS: Urine Bacteria None Seen /hpf (None Seen)
[2024-06-05 02:04] LABS: Urine Blood Negative /uL (Negative); Urine Clarity Clear (Clear); Urine Color Colorless (Yellow); Urine Protein, UAD Negative (Negative); Urine Specific Gravity 1.008 (1.001-1.035); Urine Squamous Epithelial Cell FEW /hpf (<5); Urine Urobilinogen Normal (Negative); Urine WBC < 1 /HPF (0-3); Urine pH 6.5 (5.0-9.0)
[2024-06-05 02:14] LABS: Basophils # (auto) 0.1 10 ^3/uL (0-0.2); Basophils % (auto) 2.2 % (0.0-2.0); Eosinophils # (auto) 0.5 10 ^3/uL (0-0.8); Eosinophils % (auto) 9.3 % (0.0-7.0); Hematocrit 22.6 % (41.0-53.0); Hemoglobin 7.9 g/dL (13.5-17.5); Lymphocytes # (auto) 1.1 10 ^3/uL (0.4-5.4); Lymphocytes % (auto) 22.1 % (10.0-50.0); Mean Corpuscular Hemoglobin 29.1 pg (28.0-32.0); Mean Corpuscular Volume 83.1 fL (80.0-100.0); Monocytes # (auto) 0.2 10 ^3/uL (0-1.3); Monocytes % (auto) 4.7 % (0.0-12.0); Neutrophils # (auto) 3.2 10 ^3/uL (1.6-8.6); Neutrophils % (auto) 61.7 % (37.0-80.0); Nucleated Red Blood Cells % 0.2 %; Platelet Count (auto) 66 10^3/uL (140-450); Red Blood Cells 2.72 10^6/uL (4.5-5.90); Red Cell Distribution Width 15.9 % (11.8-14.3); White Blood Cell 5.1 10^3/uL (4.4-10.8)
[2024-06-05 03:30] LABS: INR 1.12 (0.9-1.15); Partial Thromboplastin Time 28.5 SEC (24.5-34.5); Prothrombin Time 11.7 sec (9.3-11.8)
[2024-06-05 05:35] LABS: Basophils # (auto) 0.1 10 ^3/uL (0-0.2); Basophils % (auto) 1.6 % (0.0-2.0); Eosinophils # (auto) 0.6 10 ^3/uL (0-0.8); Eosinophils % (auto) 10.2 % (0.0-7.0); Hematocrit 25.6 % (41.0-53.0); Hemoglobin 8.6 g/dL (13.5-17.5); Lymphocytes # (auto) 1.3 10 ^3/uL (0.4-5.4); Lymphocytes % (auto) 22.5 % (10.0-50.0); Mean Corpuscular Hemoglobin 28.1 pg (28.0-32.0); Mean Corpuscular Hgb Conc. 33.7 g/dL (32.0-36.0); Mean Corpuscular Volume 83.5 fL (80.0-100.0); Monocytes # (auto) 0.3 10 ^3/uL (0-1.3); Monocytes % (auto) 4.6 % (0.0-12.0); Neutrophils # (auto) 3.4 10 ^3/uL (1.6-8.6); Neutrophils % (auto) 61.1 % (37.0-80.0); Platelet Count (auto) 83 10^3/uL (140-450); Red Blood Cells 3.07 10^6/uL (4.5-5.90); Red Cell Distribution Width 15.8 % (11.8-14.3); White Blood Cell 5.6 10^3/uL (4.4-10.8)
[2024-06-05 07:30] VITALS: PULSE 74; RESP 16; O2SAT 99
[2024-06-05] MEDS: cefTRIAXone 1GM/50ML D5W 50 ML IV SCH (09:16)
[2024-06-05 16:27] LABS: Erythrocyte Sedimentation Rate 54 mm/hr (0-20)
--- NOTE | 2024-06-05 16:52 | DVHPN2 ---
Subjective Patient denies any symptoms. Reviewed: Care Plan, Labs, Medications, Previous Orders Changes from previous H/P or p: No Changes General: Per HPI Eyes: No Pain, No Vision change, No Conjunctivae inflammation, No Eyelid inflammation, No Other, No Redness ENT: No Ear pain, No Ear discharge, No Nose pain, No Nose discharge, No Nose congestion, No Mouth pain, No Mouth swelling, No Throat pain, No Throat swelling, No Other Cardiovascular: No Chest Pain, No Palpitations, No Orthopnea, No Paroxysmal Noc. Dyspnea, No Edema, No Lt Headedness, No Other Respiratory: No Cough, No Dry, No Shortness of breath, No SOB with excertion, No Wheezing, No Hemoptysis, No Pleuritic Pain, No Sputum, No Other Gastrointestinal: No Nausea, No Vomiting, No Abdominal Pain, No Diarrhea, No Constipation, No Melena, No Hematochezia, No Other Genitourinary: No Dysuria, No Frequency, No Incontinence, No Hematuria, No Retention, No Other Musculoskeletal: No other, No neck pain, No shoulder pain, No arm pain, No back pain, No hand pain, No leg pain, No foot pain Skin: No Rash, No Lesions, No Jaundice, No Bruising, No Other Objective Vitals Vital Signs Date Time Temp Pulse Resp B/P (MAP) Pulse Ox O2 Delivery O2 Flow Rate FiO2 06/05/24 16:00 78 06/05/24 15:00 18 85/55 (65) 100 06/05/24 12:00 98.4 98.4 06/05/24 07:30 Room Air* 0 21 Intake/Output Intake and Output 06/05/24 07:00 Intake Total 3903.625 ml Output Total 0 ml Balance 3903.625 ml Intake Oral 0 ml IV Total 2503.625 ml Blood Product 1100 ml Other 300 ml Output Urine Total 0 ml General Appearance: Alert, Oriented X3, Cooperative, No acute distress HEENT: Atraumatic, PERRLA Lungs: Clear to auscultation, Normal air movement Cardiovascular: Normal S1, Normal S2 Abdomen: Normal bowel sounds, Soft, No tenderness, No hepatospenomegaly Rectal: Normal inspection Musculoskeletal: Normal sensory function, Normal motor function Psych/Mental Status: Mental status NL, Mood NL Medications Current Medications Medications Dose Ordered Sig/Fabricio Route Start Time Stop Time Status Last Admin Dose Admin Sodium Chloride 10 ml Q8HR IV 06/04/24 14:00 06/05/24 14:23 10 ML Acetaminophen/ Hydrocodone Bitart 1 tab Q4HP PRN PO 06/04/24 09:00 Ondansetron HCl 4 mg Q4HP PRN IV 06/04/24 09:00 Docusate Sodium 100 mg BIDPRN PRN PO 06/04/24 09:00 Acetaminophen 650 mg Q6HP PRN PO 06/04/24 09:00 Ceftriaxone Sodium 50 ml @ 100 mls/hr DAILY@09 IV 06/05/24 09:00 06/05/24 09:16 100 MLS/HR Norepinephrine Bitartrate 250 ml @ 3.75 mls/hr Q24H IV 06/05/24 00:45 06/05/24 00:53 3.75 MLS/HR Laboratory Results Laboratory Tests 06/04/24 06:53 06/05/24 05:19 Coagulation Test 06/05/24 02:35 Prothrombin Time 11.7 sec (9.3-11.8) Prothrombin Time INR 1.12 (0.9-1.15) Activated Partial Thromboplast Time 28.5 SEC (24.5-34.5) Urinalysis Test 06/05/24 01:17 Urine Color Colorless (Yellow) Urine Clarity Clear (Clear) Urine pH 6.5 (5.0-9.0) Urine Specific [place] 1.008 (1.001-1.035) Urine Protein Negative (Negative) Urine Ketones Negative (Negative) Urine Blood Negative /uL (Negative) Urine Nitrite Negative (Negative) Urine Bilirubin Negative (Negative) Urine Urobilinogen Normal mg/dL (Negative) Urine Leukocyte Esterase Negative /uL (Negative) Urine RBC <1 /hpf (0 - 3) Urine Microscopic WBC < 1 /HPF (0-3) Urine Squamous Epithelial Cells Few /hpf (<5) Urine Calcium Oxalate Crystals Few (None Seen) Urine Bacteria None seen /hpf (None Seen) Urine Glucose Normal mg/dL (Normal) Microbiology Microbiology Date/Time Source Procedure Growth Status 06/04/24 18:35 Voided Urine Urine Culture - Preliminary Resulted 06/04/24 13:10 Blood Blood Culture - Preliminary NO GROWTH AFTER 24 HOURS OF INCUBATION. Resulted Labs and/or images reviewed: Labs reviewed by me, Image(s) reviewed by me Assessment/Plan Assessment/Plan Impression: -shock, questionable sepsis etiology -myelodysplastic disorder -symptomatic anemia -right lower extremity cellulitis -schizophrenia Plan: -patient weaned off norepinephrine. Transferred to telemetry unit -cultures are pending -repeat H&H in a.m. -continue current antibiotic therapy -restart risperidone, gabapentin -reassess for discharge in a.m. Total time spent with patient discussing and formulating plan of care: 35 minutes. This medical document was created using an electronic medical record system with [employer] dictation system. Although this document has been carefully reviewed, there may still be some phonetic and typographical errors. These areas are purely typographical due to imperfections of the software programs, and do not reflect any compromise in the patient's medical care. Plan discussed with: Patient, Other (RN) My Orders Orders - YOANDY SALAS NP Procedure Category Date Status Time Midodrine Tablet PHA 06/05/24 Verified (Proamatine Tablet) 18:00 Transfer Orders XFER 06/05/24 Verified 16:47 (Nf) Gabapentin PHA 06/05/24 Verified 22:00 (Nf) Mirtazapine PHA 06/05/24 Verified (Mirtazapine Oral 18:00 (Nf) Risperidone PHA 06/05/24 Verified 22:00 Hemoglobin & LAB 06/06/24 Verified Hematocrit 04:00 Date of Service: Jun 05, 2024 Billing Provider: YOANDY SALAS NP Common Visit Codes: [id number] INP/OBS CARE(HIGH) YOANDY SALAS NP Jun 05, 2024 16:52
[2024-06-05] MEDS: MIDODRINE HCL 10 MG TAB PO SCH (18:31)
[2024-06-05 19:30] VITALS: PULSE 72; RESP 13; O2SAT 97
[2024-06-05] MEDS: risperiDONE 1 MG TAB PO SCH (21:34)
[2024-06-05] MEDS: GABAPENTIN 300 MG CAP PO SCH (21:34)
[2024-06-05 21:35] VITALS: PULSE 81; RESP 16
[2024-06-05 22:30] VITALS: BP 70/46; PULSE 73; RESP 17; TEMP 98.3; O2SAT 98
[2024-06-05 23:00] VITALS: BP 91/50; PULSE 73
[2024-06-06] VITALS (7 sets, daily range): BP systolic 75–107; BP diastolic 55–68; PULSE 67–94; RESP 17–19; TEMP 97.7–98.9; O2SAT 93–99
[2024-06-06 06:44] LABS: Hemoglobin 8.2 g/dL (13.5-17.5)
[2024-06-06] MEDS ORDERED: MIDO10TA3 PO (13:54)
--- NOTE | 2024-06-06 13:57 | DVHDS2 ---
Discharge Summary Date of Admission Jun 04, 2024 at 08:56 Date of Discharge: Jun 06, 2024 Admitting Diagnosis Syncopal episode, symptomatic anemia Labs/Diagnostic Data: Laboratory Results Test 06/06/24 05:15 06/05/24 05:19 06/05/24 02:35 06/05/24 01:17 Hemoglobin 8.2 g/dL (13.5-17.5) Hematocrit 24.0 % (41.0-53.0) White Blood Count 5.6 10^3/uL (4.4-10.8) Red Blood Count 3.07 10^6/uL (4.5-5.90) Mean Corpuscular Volume 83.5 fL (80.0-100.0) Mean Corpuscular Hemoglobin 28.1 pg (28.0-32.0) Mean Corpuscular Hemoglobin Concent 33.7 g/dL (32.0-36.0) Red Cell Distribution Width 15.8 % (11.8-14.3) Platelet Count 83 10^3/uL (140-450) Mean Platelet Volume 9.4 fL (6.9-10.8) Neutrophils (%) (Auto) 61.1 % (37.0-80.0) Lymphocytes (%) (Auto) 22.5 % (10.0-50.0) Monocytes (%) (Auto) 4.6 % (0.0-12.0) Eosinophils (%) (Auto) 10.2 % (0.0-7.0) Basophils (%) (Auto) 1.6 % (0.0-2.0) Neutrophils # (Auto) 3.4 10 ^3/uL (1.6-8.6) Lymphocytes # (Auto) 1.3 10 ^3/uL (0.4-5.4) Monocytes # (Auto) 0.3 10 ^3/uL (0-1.3) Eosinophils # (Auto) 0.6 10 ^3/uL (0-0.8) Basophils # (Auto) 0.1 10 ^3/uL (0-0.2) Nucleated Red Blood Cells 0.0 % Erythrocyte Sedimentation Rate 54 mm/hr (0-20) C-Reactive Protein High Sensitivity 3.04 mg/dL (<1.0) Prothrombin Time 11.7 sec (9.3-11.8) Prothrombin Time INR 1.12 (0.9-1.15) Activated Partial Thromboplast Time 28.5 SEC (24.5-34.5) Urine Color Colorless (Yellow) Urine Clarity Clear (Clear) Urine pH 6.5 (5.0-9.0) Urine Specific [place] 1.008 (1.001-1.035) Urine Protein Negative (Negative) Urine Ketones Negative (Negative) Urine Blood Negative /uL (Negative) Urine Nitrite Negative (Negative) Urine Bilirubin Negative (Negative) Urine Urobilinogen Normal mg/dL (Negative) Urine Leukocyte Esterase Negative /uL (Negative) Urine RBC <1 /hpf (0 - 3) Urine Microscopic WBC < 1 /HPF (0-3) Urine Squamous Epithelial Cells Few /hpf (<5) Urine Calcium Oxalate Crystals Few (None Seen) Urine Bacteria None seen /hpf (None Seen) Urine Glucose Normal mg/dL (Normal) Test 06/04/24 06:53 Sodium Level 140 mmol/L (136-145) Potassium Level 3.5 mmol/L (3.5-5.1) Chloride Level 108 mmol/L (98-107) Carbon Dioxide Level 23 mmol/L (20-31) Anion Gap 9 (5-15) Blood Urea Nitrogen 13 mg/dL (9-23) Creatinine 0.79 mg/dL (0.700-1.30) Glomerular Filtration Rate Calc 98 mL/min (>90) BUN/Creatinine Ratio 16.5 (10.0-20.0) Serum Glucose 116 mg/dL (74-106) Lactic Acid Level 2.0 mmol/L (0.4-2.0) Calcium Level 9.6 mg/dL (8.7-10.4) Other Laboratory Tests 06/06/24 05:15 06/05/24 05:19 06/04/24 06:53 Brief Hx & Hospital Course: History of Present Illness Eugene Alejandro is a 68-year-old male with past medical history of prostate cancer, MDS, schizophrenia, and COPD, who came in for generalized weakness. Patient is seen frequently with generalized weakness requiring blood transfusion due to myelodysplastic syndrome. Today patient appears more lethargic, dizzy, and frail. Patient states he had a syncopal episode last night in his bathroom. CBC showed a Hgb of 8.2, STAT repeat H&H showed Hgb 8.0. Will transfuse patient due to symptomatic anemia. Course of hospitalization: Patient was given 2 units PRBCs. Patient was started on norepinephrine drip. Patient was restarted on midodrine. According to patient, he has been out of this medication for approximately one week. Patient was blood pressure has been normalized and the patient has been asymptomatic at this time. I, myself ambulate with the patient was approximately 25 ft without any noted near syncopal episodes, dizziness. Patient was blood pressure remained stable. Patient will be discharged home and instructed to follow up with his PCP in 1-2 weeks as well as Podiatry in 1-2 weeks. Patient will have who prescription for midodrine established. He is agreeable with discharge plan. All questions answered. Physical examination General: Alert and Oriented x3. No acute distress. Well-nourished. Eyes: EOMI. Anicteric. HENT: Moist mucous membranes. Lungs: Clear to auscultation bilaterally. No accessory muscle use. Cardiovascular: Regular rate and rhythm. No murmur. No JVD. Abdomen: Soft, non-tender and non-distended. No palpable masses. Extremities: No edema. Non-tender. Skin: No rashes or lesions. Warm. Neurologic: No focal neurological deficits. CN II-XII grossly intact, but not individually tested. Psychiatric: Cooperative. Appropriate mood and affect. Total time spent with patient discussing and formulating plan of care: 35 minutes. This medical document was created using an electronic medical record system with [employer] dictation system. Although this document has been carefully reviewed, there may still be some phonetic and typographical errors. These areas are purely typographical due to imperfections of the software programs, and do not reflect any compromise in the patient's medical care. 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 Patient was hypotensive due to no renewal of midodrine at home. -myelodysplastic disorder -symptomatic anemia -right lower extremity cellulitis -schizophrenia Discharge Disposition: Home Discharge Instruct/Medications Diet: Regular Activity: No Restrictions, As Tolerated Follow Up/Referral: Follow up with Podiatry in 1-2 weeks Follow up with PCP in 1-2 weeks Medications: Midodrine 10 mg p.o. t.i.d. Continue all previous home medications 36 Discharge Statement: "Patient was advised to return to the ER or call 911 if any headaches, dizziness, shortness of breath, chest pain, abdominal pain, bleeding, fevers, or worsening of medical condition. Patient was counseled about treatment plan, medications, possible side effects, patientverbalized understanding. All questions were answered to the best of my ability. This discharge took greater then 30 minutes in planning, reviewing documentation, counseling the patient, and discussing with other team members." ASSESSMENT ASSESSMENT Assessment Anemia due to myelodysplastic disorder Date of Service: Jun 06, 2024 Billing Provider: YOANDY SALAS NP Common Visit Codes: [id number] DISCH DAY >30min YOANDY SALAS NP Jun 06, 2024 13:57
[2024-06-06] MEDS: MIRTAZAPINE 30 MG TAB PO SCH (17:48)
== END 2024-06-06 18:50 | disposition home or self-care (01) | DRG 811 ==
LOC: ER 05:59 → OVERFLOW 08:56 → WEST WING 23:40 → OVERFLOW 06-05 00:45 → WEST WING 06-05 22:14 → TELE-WESTW 06-06 07:36
PROVIDERS: ADMIT Nurse Practitioner Acute Care; ATTEND Nurse Practitioner Acute Care
PROC: 30233N1 Transfusion of Nonautologous Red Blood Cells into Peripheral Vein, Percutaneous Approach (ICD-10-PCS; principal; 2024-06-04)
DX: D46.9 Myelodysplastic syndrome, unspecified (principal); R57.8 Other shock; L03.115 Cellulitis of right lower limb; F20.9 Schizophrenia, unspecified; J44.9 Chronic obstructive pulmonary disease, unspecified; Z85.46 Personal history of malignant neoplasm of prostate; F17.210 Nicotine dependence, cigarettes, uncomplicated; Z79.2 Long term (current) use of antibiotics; Z79.82 Long term (current) use of aspirin; Z79.1 Long term (current) use of non-steroidal anti-inflammatories (NSAID); Z79.899 Other long term (current) drug therapy
CPT/HCPCS: 36415; 80048; 81001; 83605; 85014; 85018; 85025; 85610; 85652; 85730; 86141; 86850; 86900; 86901; 86922; 87040; 87086; 96360; 96361; G0378

== ENCOUNTER 2024-06-18 06:04 | Inpatient (IN) | payer OTHER, MEDICAID ==
[~2024-06-18] VITALS: Ht 180.3 cm; Wt 77.7 kg
[2024-06-18] VITALS (10 sets, daily range): BP systolic 82–96; BP diastolic 41–55; PULSE 69–79; RESP 15–25; TEMP 97.9–98.8; O2SAT 97–100
[~2024-06-18 06:04] MED LIST changes: +MIDO10TA3 PO
--- NOTE | 2024-06-18 06:31 | ED.PDOC ---
History of Present Illness HPI Comments 68-year-old male presents to the ED with chief complaint of abnormal labs. Patient states he has been feeling dizzy, weak, and SOB for the past few days due to his history of anemia, knows when he is experiencing those symptoms he needs blood transfusion. Patient states he last got transfused with blood on . PMHx anemia, COPD, cancer, schizophrenia. Denies fever, chills, nausea, vomiting, diarrhea, abdominal pain, chest pain, dysuria. No other symptoms or modifying factors present at this time. 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/24 Cephalexin (KEFLEX CAPSULE) 250 Mg Cp, 500 MG PO TID for 10 Days, #30 CAP Prov:VENKAT SMILEY MD 04/10/24 Hydrocodone-Acetaminophen (Hydrocodone Bitartrate/AC 10-325 mg) 1 Tab Tab, 1 TAB PO TIDP PRN for 7 Days, #21 TAB Prov:VENKAT SMILEY MD 04/10/24 Hydrocortone (Hydrocortisone 1%) 1 Applic Ap, 1 APPLIC TOP BID, #30 GRAMS Prov:JUAN ROGERS MD 02/08/24 Reported Medications Aspirin (Aspir-81) 81 Mg Tab, 1 TAB PO DAILY, #30 TAB 5 Refills 03/10/24 Midodrine HCl (Midodrine Hydrochloride) 5 Mg Tab, 1 TAB PO TID 01/30/24 Risperidone (Risperidone) 2 Mg Tab, 2 MG PO BID, TAB 12/05/23 Nicotine (Nicoderm 21MG/24HR) 1 Patch Ph, 1 PATCH TOP DAILY, #28 PATCH 1 Refill 12/05/23 Mirtazapine (Mirtazapine Oral Disintegrating Tablet) 45 Mg Tab, 1 TAB PO QPM, #30 TAB 1 Refill 12/05/23 Melatonin (KP MELATONIN) 3 Mg Tab, 3 MG PO HS, TAB 12/05/23 Leuprolide Acetate (3 Month) (Lupron Depot) 22.5 Mg Inj, 22.5 MG IM, INJ 12/05/23 Gabapentin (Gabapentin) 600 Mg Tab, 600 MG PO BID, TAB 12/05/23 Folic Acid (Folic Acid) 1 Mg Tab, 1 MG PO DAILY for 30 Days, MG 12/05/23 Fluticasone Furoate (Inhalatio (Arnuity Ellipta) 200 Mcg/Act Inh, 200 MCG IN, INHALER 12/05/23 Atorvastatin Calcium (ATORVASTATIN CALCIUM) 40 Mg Tab, 1 TAB PO DAILY, #30 TAB 5 Refills 12/05/23 Albuterol Sulfate (VENTOLIN MDI) 90 Mcg Ih, 90 MCG IN, INH 12/05/23 Information Source: Patient Mode of Arrival: Ambulatory Severity: Moderate Timing: Days Duration: Since onset Prehospital treatment: None Past Medical History PAST MEDICAL HISTORY: Anemia, Cancer, COPD, Schizophrenia Family History Family History: Reviewed,noncontributory to illness Social History Smoker: Cigarettes Alcohol: Denies ETOH Use Drugs: Denies Drug Use Lives In: Home Constitutional: reports: weakness; denies: chills, diaphoresis, fatigue, fever, malaise, sweats, others EENTM: denies: blurred vision, double vision, ear bleeding, ear discharge, ear drainage, ear pain, ear ringing, eye pain, eye redness, hearing loss, mouth pa in, mouth swelling, nasal discharge, nose bleeding, nose congestion, nose pain, photophobia, tearing, throat pain, throat swelling, voice changes, others Respiratory: reports: shortness of breath; denies: cough, hemoptysis, orthopnea, SOB at rest, SOB with excertion, stridor, wheezing, others Cardiovascular: denies: chest pain, dizzy spells, diaphoresis, Dyspnea on exertion, edema, irregular heart beat, left arm pain, lightheadedness, palpitat ions, PND, syncope, others Gastrointestinal: denies: abdomen distended, abdominal pain, blood streaked bow els, constipated, diarrhea, dysphagia, difficulty swallowing, hematemesis, melena, nausea, poor appetite, poor fluid intake, rectal bleeding, rectal pain, vomiting, others Genitourinary: denies: burning, dysuria, flank pain, frequency, hematuria, incontinence, penile discharge, penile sore, pain, testicle pain, testicle swelling, urgency, others Neurological: reports: dizziness, weakness; denies: fainting, headache, left s ided numbness, left sided weakness, numbness, paresthesia, pre-existing deficit, right sided numbness, right sided weakness, seizure, speech problems, tingling, tremors, others Musculoskeletal: denies: back pain, gout, joint pain, joint swelling, muscle pain, muscle stiffness, neck pain, others Integumetry: denies: bruises, change in color, change in hair/nails, dryness, laceration, lesions, lumps, rash, wounds, others Allergic/Immunocompromised: denies: Difficulty Healing, Frequent Infections, Hives, Itching, others Hematologic/Lymphatic: denies: anemia, blood clots, easy bleeding, easy bruising, swollen glands, others Endocrine: denies: excessive hunger, excessive sweating, excessive thirst, excessive urination, flushing, intolerance to cold, intolerance to heat, unexplained weight gain, unexplained weight loss, others Psychiatric: denies: anxiety, bipolar disorder, depression, hopeless, panic disorder, schizophrenia, sleepless, suicidal, others All Other Systems: Reviewed and Negative Physical Exam General Appearance: No Apparent Distress, Normal HEENT: Normal ENT Inspection, Pharynx Normal, TMs Normal Neck: Full Range of Motion, Non-Tender, Normal, Normal Inspection Respiratory: Chest Non-Tender, Lungs Clear, No Accessory Muscle Use, No Respiratory Distress, Normal Breath Sounds Cardiovascular: No Edema, No JVD, No Murmur, No Gallop, Normal Peripheral Pulses, Regular Rate/Rhythm Breast Exam: Deferred Gastrointestinal: No Organomegaly, Non Tender, No Pulsatile Mass, Normal Bowel Sounds, Soft Genitalia: Deferred Pelvic: Deferred Rectal: Deferred Extremities: No calf tenderness, Normal capillary refill, Normal inspection, Normal range of motion, Non-tender, No pedal edema Musculoskeletal : Apperance: Normal Neurologic: Alert, 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 Was a procedure done?: No Differential Dx Considerations may include: symptomatic anemia, electrolyte abnormality, infectious etiology, ACS X-Ray, Labs, Meds, VS Vital Signs Date Time Temp Pulse Resp B/P (MAP) Pulse Ox O2 Delivery O2 Flow Rate FiO2 06/18/24 06:20 98.7 101 18 102/61 (75) 100 98.7 Lab Test 06/18/24 06:41 Range/Units White Blood Count 5.6 4.4-10.8 10^3/uL Red Blood Count 2.46 L 4.5-5.90 10^6/uL Hemoglobin 7.1 L 13.5-17.5 g/dL Hematocrit 20.7 L 41.0-53.0 % Mean Corpuscular Volume 84.2 80.0-100.0 fL Mean Corpuscular Hemoglobin 28.7 28.0-32.0 pg Mean Corpuscular Hemoglobin Concent 34.1 32.0-36.0 g/dL Red Cell Distribution Width 15.1 H 11.8-14.3 % Platelet Count 97 L 140-450 10^3/uL Mean Platelet Volume 9.7 6.9-10.8 fL Neutrophils (%) (Auto) 74.2 37.0-80.0 % Lymphocytes (%) (Auto) 13.2 10.0-50.0 % Monocytes (%) (Auto) 1.8 0.0-12.0 % Eosinophils (%) (Auto) 8.5 H 0.0-7.0 % Basophils (%) (Auto) 2.3 H 0.0-2.0 % Neutrophils # (Auto) 4.1 1.6-8.6 10 ^3/uL Lymphocytes # (Auto) 0.7 0.4-5.4 10 ^3/uL Monocytes # (Auto) 0.1 0-1.3 10 ^3/uL Eosinophils # (Auto) 0.5 0-0.8 10 ^3/uL Basophils # (Auto) 0.1 0-0.2 10 ^3/uL Nucleated Red Blood Cells 0.1 % Prothrombin Time 11.7 9.3-11.8 sec Prothrombin Time INR 1.12 0.9-1.15 Activated Partial Thromboplast Time 28.4 24.5-34.5 SEC Sodium Level 140 136-145 mmol/L Potassium Level 3.5 3.5-5.1 mmol/L Chloride Level 110 H 98-107 mmol/L Carbon Dioxide Level 24 20-31 mmol/L Anion Gap 6 5-15 Blood Urea Nitrogen 15 9-23 mg/dL Creatinine 0.70 0.700-1.30 mg/dL Glomerular Filtration Rate Calc 102 >90 mL/min BUN/Creatinine Ratio 21.4 H 10.0-20.0 Serum Glucose 110 H 74-106 mg/dL Calcium Level 9.4 8.7-10.4 mg/dL Troponin I High Sensitivity < 3 L </=54 ng/L Time of 1ST Reevaluation: 06:55 Reevaluation 1ST: Unchanged Patient Education/Counseling: Diagnosis, Treatment, Prognosis Family Education/Counseling: No Family Present Additional Information The following tests were ordered, and results were reviewed by me: type and screen, cbc, bmp, ptptt, trop, xy chest I reviewed and agreed with the following test results read by other providers: xy chest I discussed treatment and results with medical personnel and: Patient Comprehensive systems review obtained and negative except for what is stated in the HPI. Departure 1 Departure Time of Disposition: 07:56 (Patient with symptomatic anemia. Patient is tachycardic and feeling like he is going to pass out. Patient's hemoglobin is slightly lower than his baseline. We will admit patient for transfusion for further workup) Impression: Primary Impression: Symptomatic anemia Additional Impression: Near syncope Disposition: ADMITTED INPATIENT Admit to: Med Surg Condition: Serious Critical Care Note Critical Care Time?: No Stability Stability form required: No I personally scribed for RAYRAY PAPPAS MD ([email or web address]) on 06/18/24 at 06:30. Electronically submitted by Capri Gibson ([email or web address]). I personally scribed for RAYRAY PAPPAS MD ([email or web address]) on 06/18/24 at 06:36. Electronically submitted by Capri Gibson ([email or web address]). I personally scribed for RAYRAY PAPPAS MD ([email or web address]) on 06/18/24 at 06:37. Electronically submitted by Capri Gibson ([email or web address]). RAYRAY PAPPAS MD Jun 18, 2024 06:30
--- NOTE | 2024-06-18 07:09 | DVH ---
EXAM: XR Chest, 1 View CLINICAL INDICATION: weakness TECHNIQUE: Frontal view of the chest. COMPARISON: XY CHEST PORTABLE on DOS: 05/18/24, XY CHEST PORTABLE on DOS: 05/07/24, XY CHEST PORTABLE on DOS: 04/24/24, XY CHEST XRAY 1 VIEW on DOS: 04/01/24, XY CHEST PORTABLE on DOS: 03/09/24 FINDINGS: LUNGS AND PLEURAL SPACES: Unremarkable. No consolidation. No pneumothorax. HEART: Unremarkable. No cardiomegaly. MEDIASTINUM: Unremarkable. Normal mediastinal contour. BONES/JOINTS: Unremarkable. No acute fracture. OTHER FINDINGS: . None. IMPRESSION: No acute cardiopulmonary process.
[2024-06-18 07:14] LABS: Basophils # (auto) 0.1 10 ^3/uL (0-0.2); Eosinophils # (auto) 0.5 10 ^3/uL (0-0.8); Monocytes # (auto) 0.1 10 ^3/uL (0-1.3); Neutrophils # (auto) 4.1 10 ^3/uL (1.6-8.6); Nucleated Red Blood Cells % 0.1 %; White Blood Cell 5.6 10^3/uL (4.4-10.8)
[2024-06-18 07:18] LABS: Basophils % (auto) 2.3 % (0.0-2.0); Eosinophils % (auto) 8.5 % (0.0-7.0); Hematocrit 20.7 % (41.0-53.0); Hemoglobin 7.1 g/dL (13.5-17.5); Lymphocytes # (auto) 0.7 10 ^3/uL (0.4-5.4); Lymphocytes % (auto) 13.2 % (10.0-50.0); Mean Corpuscular Hemoglobin 28.7 pg (28.0-32.0); Mean Corpuscular Hgb Conc. 34.1 g/dL (32.0-36.0); Mean Corpuscular Volume 84.2 fL (80.0-100.0); Monocytes % (auto) 1.8 % (0.0-12.0); Neutrophils % (auto) 74.2 % (37.0-80.0); Platelet Count (auto) 97 10^3/uL (140-450); Red Blood Cells 2.46 10^6/uL (4.5-5.90); Red Cell Distribution Width 15.1 % (11.8-14.3)
[2024-06-18 07:28] LABS: Sodium 140 mmol/L (136-145)
[2024-06-18 07:29] LABS: Anion Gap 6 (5-15); Calcium 9.4 mg/dL (8.7-10.4); Carbon Dioxide 24 mmol/L (20-31)
[2024-06-18 07:30] LABS: Chloride 110 mmol/L (98-107); Potassium 3.5 mmol/L (3.5-5.1)
[2024-06-18 07:31] LABS: INR 1.12 (0.9-1.15); Partial Thromboplastin Time 28.4 SEC (24.5-34.5); Prothrombin Time 11.7 sec (9.3-11.8)
[2024-06-18 07:34] LABS: BUN/Creatinine Ratio 21.4 (10.0-20.0); Blood Urea Nitrogen 15 mg/dL (9-23)
[2024-06-18 07:39] LABS: Glucose 110 mg/dL (74-106)
[2024-06-18] MEDS ORDERED: ONDANSETRON HCL 4 MG/2 ML VIAL IV PRN (15:30)
[2024-06-18] MEDS ORDERED: DOCUSATE SOD 100 MG CAP PO PRN (15:30)
[2024-06-18] MEDS ORDERED: ACETAMINOPHEN 325 MG TAB PO PRN (15:30)
--- NOTE | 2024-06-18 15:35 | DVHHP2 ---
History of Present Illness Reason for Visit: Generalized weakness History of Present Illness Eugene Alejandro is a 68-year-old male, with past medical history of prostate cancer, MDS, schizophrenia, and COPD, who came in for generalized weakness. Patient is seen frequently with generalized weakness requiring blood transfusion due to myelodysplastic syndrome. Pulmonary: COPD Psych: Schizophrenia Past Surgical History: Other (right leg skin graft), Tonsillectomy Family History: None Smoke: <1 pack per day ALCOHOL: none Drugs: None Lives: with Family Domestic Violence: Neg Review of Systems Constitutional: Yes: Weakness, Malaise; No: Fever, Chills, Sweats, Other Eyes: No: Pain, Vision change, Conjunctivae inflammation, Eyelid inflammation, Other, Redness ENT: No: Ear pain, Ear discharge, Nose pain, Nose discharge, Nose congestion, Mouth pain, Mouth swelling, Throat pain, Throat swelling, Other Respiratory: No: Cough, Dry, Shortness of breath, SOB with excertion, Wheezing, Hemoptysis, Pleuritic Pain, Sputum, Wheezing, Other Cardiovascular: No: Chest Pain, Palpitations, Orthopnea, Paroxysmal Noc. Dyspnea, Edema, Lt Headedness, Other Gastrointestinal: No: Nausea, Vomiting, Abdominal Pain, Diarrhea, Constipation, Melena, Hematochezia, Other Genitourinary: No Dysuria, No Frequency, No Incontinence, No Hematuria, No R etention, No Other Musculoskeletal: No: other, neck pain, shoulder pain, arm pain, back pain, hand pain, leg pain, foot pain Skin: No: Rash, Lesions, Jaundice, Bruising, Other Neurological: No: Weakness, Numbness, Incoordination, Change in speech, Confusion, Seizures, Other Allergies: Coded Allergies: NO KNOWN ALLERGIES (Unverified , 12/04/23) Exam Vital Signs Vital Signs Date Time Temp Pulse Resp B/P (MAP) Pulse Ox O2 Delivery O2 Flow Rate FiO2 06/18/24 12:00 66 06/18/24 12:00 98.1 20 83/52 (62) 99 98.1 06/18/24 11:10 Nasal Cannula* 4 36 General Appearance: Alert, Oriented X3, Cooperative, mild distress HEENT: Atraumatic, PERRLA Respiratory: Clear to auscultation, Normal air movement Cardiovascular: Regular rate, Normal S1, Normal S2, No murmurs Abdominal: Normal bowel sounds, Soft, No tenderness, No hepatospenomegaly Extremities: No clubbing, No cyanosis, Normal pulses, No tenderness/swelling, Other (right leg edema) Skin: No rashes, No breakdown, No significant lesion (right leg wound dressing in place, S/P skin graft March 2024) Neuro: Normal gait, Normal speech, Strength at 5/5 X4 ext, Normal tone Psych/Mental Status: Mental status NL, Mood NL Labs/Xrays Labs Test 06/18/24 06:41 Range/Units White Blood Count 5.6 4.4-10.8 10^3/uL Red Blood Count 2.46 L 4.5-5.90 10^6/uL Hemoglobin 7.1 L 13.5-17.5 g/dL Hematocrit 20.7 L 41.0-53.0 % Mean Corpuscular Volume 84.2 80.0-100.0 fL Mean Corpuscular Hemoglobin 28.7 28.0-32.0 pg Mean Corpuscular Hemoglobin Concent 34.1 32.0-36.0 g/dL Red Cell Distribution Width 15.1 H 11.8-14.3 % Platelet Count 97 L 140-450 10^3/uL Mean Platelet Volume 9.7 6.9-10.8 fL Neutrophils (%) (Auto) 74.2 37.0-80.0 % Lymphocytes (%) (Auto) 13.2 10.0-50.0 % Monocytes (%) (Auto) 1.8 0.0-12.0 % Eosinophils (%) (Auto) 8.5 H 0.0-7.0 % Basophils (%) (Auto) 2.3 H 0.0-2.0 % Neutrophils # (Auto) 4.1 1.6-8.6 10 ^3/uL Lymphocytes # (Auto) 0.7 0.4-5.4 10 ^3/uL Monocytes # (Auto) 0.1 0-1.3 10 ^3/uL Eosinophils # (Auto) 0.5 0-0.8 10 ^3/uL Basophils # (Auto) 0.1 0-0.2 10 ^3/uL Nucleated Red Blood Cells 0.1 % Prothrombin Time 11.7 9.3-11.8 sec Prothrombin Time INR 1.12 0.9-1.15 Activated Partial Thromboplast Time 28.4 24.5-34.5 SEC Sodium Level 140 136-145 mmol/L Potassium Level 3.5 3.5-5.1 mmol/L Chloride Level 110 H 98-107 mmol/L Carbon Dioxide Level 24 20-31 mmol/L Anion Gap 6 5-15 Blood Urea Nitrogen 15 9-23 mg/dL Creatinine 0.70 0.700-1.30 mg/dL Glomerular Filtration Rate Calc 102 >90 mL/min BUN/Creatinine Ratio 21.4 H 10.0-20.0 Serum Glucose 110 H 74-106 mg/dL Calcium Level 9.4 8.7-10.4 mg/dL Troponin I High Sensitivity < 3 L </=54 ng/L EXAM: XR Chest, 1 View FINDINGS: LUNGS AND PLEURAL SPACES: Unremarkable. No consolidation. No pneumothorax. HEART: Unremarkable. No cardiomegaly. MEDIASTINUM: Unremarkable. Normal mediastinal contour. BONES/JOINTS: Unremarkable. No acute fracture. OTHER FINDINGS: . None. IMPRESSION: No acute cardiopulmonary process. Assessment/Plan Assessment/Plan Assessment: Symptomatic anemia, Hypotension, MDS, Hyperlipidemia, COPD, Schizophrenia, Plan: Admit to Med-Surg, Transfuse 1 unit PRBC, recheck H&H, possible transfuse 2nd unit of PRBC, Manage/Monitor Hgb closely, PRN breathing treatments, Supplemental oxygen as needed, Home medications reconciled, Plan discussed with: Patient My Orders Orders - ANNIKA SYED [employer]CHO[employer] GUARD Procedure Category Date Status Time Admit ADMIT 06/18/24 Transmitted 15:23 Code Status CODE 06/18/24 Transmitted 15:23 2 Gm Sodium Diet DIET 06/18/24 Transmitted Dinner Sodium Chloride Lock PHA 06/18/24 Transmitted (Saline Lock Ns) 22:00 Hydrocodone-Acet PHA 06/18/24 Transmitted 5/325mg Tab ([place] 15:30 Ondansetron Hcl PHA 06/18/24 Transmitted (Zofran) 15:30 Docusate Sodium PHA 06/18/24 Transmitted Capsule (Colace 15:30 Complete Blood Count LAB 06/19/24 Verified 04:00 Comprehensive LAB 06/19/24 Verified Metabolic Panel 04:00 Condition: Serious KATIA 06/18/24 Transmitted 15:23 Acetaminophen Tablet PHA 06/18/24 Transmitted (Tylenol Tablet) 15:30 Hemoglobin & LAB 06/18/24 Transmitted Hematocrit 15:23 Aspirin Enteric PHA 06/19/24 Transmitted Coated Tablet 10:00 Midodrine Tablet PHA 06/18/24 Transmitted (Proamatine Tablet) 22:00 (Nf) Atorvastatin PHA 06/19/24 Transmitted Calcium 10:00 (Nf) Folic Acid PHA 06/19/24 Transmitted 10:00 (Nf) Gabapentin PHA 06/18/24 Transmitted 22:00 (Nf) Melatonin (Kp PHA 06/18/24 Transmitted Melatonin) 22:00 (Nf) Risperidone PHA 06/18/24 Transmitted 22:00 Date of Service: Jun 18, 2024 Billing Provider: ANNIKA SYED Common Visit Codes: [id number] INP/OBS CARE (MOD) ANNIKA SYED Jun 18, 2024 15:35
[2024-06-18 16:30] LABS: Hematocrit 20.6 % (41.0-53.0)
[2024-06-18] MEDS: MIDODRINE HCL 10 MG TAB PO ONE (16:46)
[2024-06-18 16:58] LABS: Hemoglobin 6.9 g/dL (13.5-17.5)
[2024-06-18] MEDS ORDERED: IPRATROPIUM BROM 0.5 MG/2.5ML INH SOL NEB PRN (17:15)
[2024-06-18] MEDS ORDERED: ALBUTEROL SULF 2.5 MG/0.5ML(0.5%) NEB SOLN NEB PRN (17:15)
[2024-06-18] MEDS ORDERED: MELATONIN 3 MG PO SCH (22:00)
[2024-06-18] MEDS: SODIUM CHLOR 0.9% PF (SALINE LOCK) 10ML VIAL/SYR IV SCH (22:03)
[2024-06-18] MEDS: GABAPENTIN 300 MG CAP PO SCH (23:23)
[2024-06-18] MEDS: risperiDONE 1 MG TAB PO SCH (23:24)
[2024-06-18] MEDS: ATORVASTATIN 20 MG TAB PO SCH (23:24)
[2024-06-18] MEDS: MIDODRINE HCL 10 MG TAB PO SCH (23:24)
[2024-06-18] MEDS ORDERED: HYDR-4798 PO (23:46)
[2024-06-19] VITALS (12 sets, daily range): BP systolic 78–110; BP diastolic 41–54; PULSE 57–76; RESP 15–18; TEMP 97.9–99; O2SAT 95–100
[2024-06-19] MEDS: MELATONIN 5 MG TAB PO ONE (00:13)
[2024-06-19] MEDS: HYDROcodone-ACET 5/325MG TAB PO PRN (00:22)
[2024-06-19 06:17] LABS: Basophils # (auto) 0.1 10 ^3/uL (0-0.2); Eosinophils # (auto) 0.5 10 ^3/uL (0-0.8); Hematocrit 23.1 % (41.0-53.0); Lymphocytes # (auto) 0.8 10 ^3/uL (0.4-5.4); Monocytes # (auto) 0.1 10 ^3/uL (0-1.3); Neutrophils # (auto) 2.9 10 ^3/uL (1.6-8.6); White Blood Cell 4.4 10^3/uL (4.4-10.8)
[2024-06-19 06:20] LABS: Eosinophils % (auto) 11.3 % (0.0-7.0); Lymphocytes % (auto) 17.3 % (10.0-50.0); Mean Corpuscular Hemoglobin 29.3 pg (28.0-32.0); Mean Corpuscular Hgb Conc. 34.5 g/dL (32.0-36.0); Mean Corpuscular Volume 85.1 fL (80.0-100.0); Monocytes % (auto) 3.3 % (0.0-12.0); Neutrophils % (auto) 66.1 % (37.0-80.0); Nucleated Red Blood Cells % 0.1 %; Platelet Count (auto) 66 10^3/uL (140-450); Red Blood Cells 2.72 10^6/uL (4.5-5.90); Red Cell Distribution Width 14.9 % (11.8-14.3)
[2024-06-19 06:30] LABS: Alkaline Phosphatase 80 U/L (46-116); Anion Gap 6 (5-15); Aspartate Aminotransferase 20 U/L (13-40); BUN/Creatinine Ratio 22.2 (10.0-20.0); Blood Urea Nitrogen 12 mg/dL (9-23); Calcium 8.7 mg/dL (8.7-10.4); Carbon Dioxide 23 mmol/L (20-31); Potassium 3.8 mmol/L (3.5-5.1); Sodium 140 mmol/L (136-145); Total Protein 6.3 g/dL (5.7-8.2)
[2024-06-19 06:35] LABS: Alanine Aminotransferase 43 U/L (7-40); Albumin 3.2 g/dL (3.2-4.8); Chloride 111 mmol/L (98-107); Glucose 109 mg/dL (74-106)
[2024-06-19] MEDS: FOLIC ACID 1 MG TAB PO SCH (10:00)
[2024-06-19] MEDS: ASPirin-EC 81 mg tab PO SCH (10:00)
--- NOTE | 2024-06-19 15:45 | DVHPN2 ---
Assessment/Plan Assessment/Plan Progress note 68 M with MDS, prostate cancer, COPD, schizophrenia, RLE swelling admitted for severe anemia Physical exam AOx3 clear breath sounds s1 s2 rrr abdomen soft nontender RLE edema, pitting Labs ekg imaging reviewed Assessment and plan Symptomatic anemia req transfussion Hypotension MDS HLD COPD group E schizoprhenia RLE edema, DVT ruled out from prior R foot ulcer Admit to telemetry transfuse to keep Hb >7 CVI r/o maintain spo2 >90 resume home meds Diet cardiac DVT ppx lovenox Code status full code Plan discussed with: Patient Date of Service: Jun 19, 2024 Billing Provider: JUAN ROGERS MD Common Visit Codes: [id number] INP/OBS CARE(HIGH) JUAN ROGERS MD Jun 19, 2024 15:44
[2024-06-19] MEDS: MELATONIN 5 MG TAB PO SCH (22:19)
[2024-06-20 01:00] VITALS: BP 82/43; PULSE 68; RESP 18; TEMP 98.3; O2SAT 99
[2024-06-20 05:00] VITALS: BP 86/52; PULSE 71; RESP 18; TEMP 97.8; O2SAT 94
[2024-06-20 06:35] LABS: Eosinophils # (auto) 0.6 10 ^3/uL (0-0.8); Hemoglobin 8.3 g/dL (13.5-17.5); Lymphocytes # (auto) 0.8 10 ^3/uL (0.4-5.4); Monocytes # (auto) 0.1 10 ^3/uL (0-1.3); White Blood Cell 4.8 10^3/uL (4.4-10.8)
[2024-06-20 06:38] LABS: Basophils # (auto) 0 10 ^3/uL (0-0.2); Basophils % (auto) 0.9 % (0.0-2.0); Eosinophils % (auto) 12.4 % (0.0-7.0); Hematocrit 24.6 % (41.0-53.0); Lymphocytes % (auto) 17.2 % (10.0-50.0); Mean Corpuscular Hgb Conc. 33.6 g/dL (32.0-36.0); Mean Corpuscular Volume 86.2 fL (80.0-100.0); Monocytes % (auto) 3.1 % (0.0-12.0); Neutrophils # (auto) 3.2 10 ^3/uL (1.6-8.6); Neutrophils % (auto) 66.4 % (37.0-80.0); Platelet Count (auto) 62 10^3/uL (140-450); Red Blood Cells 2.85 10^6/uL (4.5-5.90)
[2024-06-20 09:00] VITALS: BP 102/44; PULSE 65; RESP 18; TEMP 97.9; O2SAT 98
[2024-06-20] MEDS: SODIUM CHLORIDE 0.9% 1,000 ML IV ONE (10:27)
--- NOTE | 2024-06-20 11:38 | DVHDS2 ---
Discharge Summary Date of Admission Jun 18, 2024 at 15:23 Date of Discharge: Jun 20, 2024 Labs/Diagnostic Data: Laboratory Results Test 06/20/24 04:59 06/19/24 05:00 06/18/24 06:41 White Blood Count 4.8 10^3/uL (4.4-10.8) Red Blood Count 2.85 10^6/uL (4.5-5.90) Hemoglobin 8.3 g/dL (13.5-17.5) Hematocrit 24.6 % (41.0-53.0) Mean Corpuscular Volume 86.2 fL (80.0-100.0) Mean Corpuscular Hemoglobin 29.0 pg (28.0-32.0) Mean Corpuscular Hemoglobin Concent 33.6 g/dL (32.0-36.0) Red Cell Distribution Width 15.0 % (11.8-14.3) Platelet Count 62 10^3/uL (140-450) Mean Platelet Volume 9.7 fL (6.9-10.8) Neutrophils (%) (Auto) 66.4 % (37.0-80.0) Lymphocytes (%) (Auto) 17.2 % (10.0-50.0) Monocytes (%) (Auto) 3.1 % (0.0-12.0) Eosinophils (%) (Auto) 12.4 % (0.0-7.0) Basophils (%) (Auto) 0.9 % (0.0-2.0) Neutrophils # (Auto) 3.2 10 ^3/uL (1.6-8.6) Lymphocytes # (Auto) 0.8 10 ^3/uL (0.4-5.4) Monocytes # (Auto) 0.1 10 ^3/uL (0-1.3) Eosinophils # (Auto) 0.6 10 ^3/uL (0-0.8) Basophils # (Auto) 0 10 ^3/uL (0-0.2) Nucleated Red Blood Cells 0.0 % Sodium Level 140 mmol/L (136-145) Potassium Level 3.8 mmol/L (3.5-5.1) Chloride Level 111 mmol/L (98-107) Carbon Dioxide Level 23 mmol/L (20-31) Anion Gap 6 (5-15) Blood Urea Nitrogen 12 mg/dL (9-23) Creatinine 0.54 mg/dL (0.700-1.30) Glomerular Filtration Rate Calc 110 mL/min (>90) BUN/Creatinine Ratio 22.2 (10.0-20.0) Serum Glucose 109 mg/dL (74-106) Calcium Level 8.7 mg/dL (8.7-10.4) Total Bilirubin 1.0 mg/dL (0.2-1.0) Aspartate Amino Transferase (AST) 20 U/L (13-40) Alanine Aminotransferase (ALT) 43 U/L (7-40) Alkaline Phosphatase 80 U/L (46-116) Total Protein 6.3 g/dL (5.7-8.2) Albumin 3.2 g/dL (3.2-4.8) Prothrombin Time 11.7 sec (9.3-11.8) Prothrombin Time INR 1.12 (0.9-1.15) Activated Partial Thromboplast Time 28.4 SEC (24.5-34.5) Troponin I High Sensitivity < 3 ng/L (</=54) Other Laboratory Tests 06/20/24 04:59 06/19/24 05:00 Brief Hx & Hospital Course: 68 M with MDS, prostate cancer, COPD, schizophrenia, RLE swelling admitted for severe anemia, received PRBC with improvement in H/H, stable after repeat, soft bp since admission, given IVF, asymptomatic. leg swelling chronic, need eval as outpatient for CVI. following podiatry for foot ulcer. stable to dc ome Condition at Discharge: Good Final Diagnosis/Problems List severe symptomatic anemia Discharge Disposition: Home Discharge Instruct/Medications Diet: Consistent carbohydrate, Cardiac 2g Na,low cholest Activity: No Restrictions, As Tolerated Follow Up/Referral: PCP vascular podiatry oncology 39 Discharge Statement: "Patient was advised to return to the ER or call 911 if any headaches, dizziness, shortness of breath, chest pain, abdominal pain, bleeding, fevers, or worsening of medical condition. Patient was counseled about treatment plan, medications, possible side effects, patientverbalized understanding. All questions were answered to the best of my ability. This discharge took greater then 30 minutes in planning, reviewing documentation, counseling the patient, and discussing with other team members." ASSESSMENT ASSESSMENT Assessment Symptomatic anemia req transfussion Hypotension MDS HLD COPD group E schizoprhenia RLE edema, DVT ruled out from prior R foot ulcer Date of Service: Jun 20, 2024 Billing Provider: JUAN ROGERS MD Common Visit Codes: [id number] DISCH DAY >30min JUAN ROGERS MD Jun 20, 2024 11:38
[2024-06-20 13:00] VITALS: BP 102/52; PULSE 76; RESP 18; TEMP 98.3; O2SAT 98
[2024-06-20 13:47] LABS: Hepatitis B Surface Antigen Negative (Negative); Hepatitis C Antibody Negative (Negative)
== END 2024-06-20 14:12 | disposition home or self-care (01) | DRG 812 ==
LOC: ER 06:04 → OVERFLOW 15:23 → WEST WING 15:27
PROVIDERS: ADMIT Student in an Organized Health Care Education/Training Program; ATTEND Student in an Organized Health Care Education/Training Program
PROC: 30233N1 Transfusion of Nonautologous Red Blood Cells into Peripheral Vein, Percutaneous Approach (ICD-10-PCS; principal; 2024-06-18)
DX: D46.9 Myelodysplastic syndrome, unspecified (principal); I95.9 Hypotension, unspecified; J44.9 Chronic obstructive pulmonary disease, unspecified; F20.9 Schizophrenia, unspecified; L97.519 Non-pressure chronic ulcer of other part of right foot with unspecified severity; C61 Malignant neoplasm of prostate; E78.5 Hyperlipidemia, unspecified; F17.210 Nicotine dependence, cigarettes, uncomplicated; Z85.46 Personal history of malignant neoplasm of prostate; Z79.51 Long term (current) use of inhaled steroids; Z79.82 Long term (current) use of aspirin; Z79.899 Other long term (current) drug therapy; D63.8 Anemia in other chronic diseases classified elsewhere
CPT/HCPCS: 36415; 71045; 80048; 80053; 84484; 85014; 85018; 85025; 85610; 85730; 86803; 86850; 86900; 86901; 86902; 86922; 87340; G0378

== ENCOUNTER 2024-06-25 06:20 | Emergency (ER) | payer OTHER, MEDICAID ==
[~2024-06-25] VITALS: Ht 180.3 cm; Wt 75.7 kg
[~2024-06-25 06:20] MED LIST changes: -CEPH250C PO; -LEUP22.52 IM; -MIDO5TAB22 PO
--- NOTE | 2024-06-25 06:41 | ED.PDOC ---
History of Present Illness HPI Comments 68-year-old male presents to the ED with chief complaint of generalized weakness. Patient states he has been feeling dizzy, weak, and for the past few days due to his history of anemia, knows when he is experiencing those symptoms he needs blood transfusion. Patient states he last got transfused with blood on 06/19/24. PMHx anemia, COPD, cancer, schizophrenia. Denies fever, chills, nausea, vomiting, diarrhea, abdominal pain, chest pain, dysuria. No other symptoms or modifying factors present at this time. Chief Complaint: Abnormal LAB's Time Seen by MD: 06:35 Primary Care Provider: MADDIE Reviewed Notes: Medications, Allergies Allergies: Coded Allergies: NO KNOWN ALLERGIES (Unverified , 12/04/23) Home Meds Active Scripts Midodrine Hcl (Midodrine Hcl) 10 Mg Tab, 10 MG PO TID for 30 Days, #90 TAB 3 Refills Prov:YOANDY SALAS NP 06/06/24 Hydrocortone (Hydrocortisone 1%) 1 Applic Ap, 1 APPLIC TOP BID, #30 GRAMS Prov:JUAN ROGERS MD 02/08/24 Reported Medications Hydrocodone-Acetaminophen (Hydrocodone Bitartrate/AC 10-325 mg) 1 Tab Tab, 1 TAB PO, TAB 06/18/24 Aspirin (Aspir-81) 81 Mg Tab, 1 TAB PO DAILY, #30 TAB 5 Refills 03/10/24 Risperidone (Risperidone) 2 Mg Tab, 2 MG PO BID, TAB 12/05/23 Nicotine (Nicoderm 21MG/24HR) 1 Patch Ph, 1 PATCH TOP DAILY, #28 PATCH 1 Refill 12/05/23 Mirtazapine (Mirtazapine Oral Disintegrating Tablet) 45 Mg Tab, 1 TAB PO QPM, #30 TAB 1 Refill 12/05/23 Melatonin (KP MELATONIN) 3 Mg Tab, 3 MG PO HS, TAB 12/05/23 Gabapentin (Gabapentin) 600 Mg Tab, 600 MG PO BID, TAB 12/05/23 Folic Acid (Folic Acid) 1 Mg Tab, 1 MG PO DAILY for 30 Days, MG 12/05/23 Fluticasone Furoate (Inhalatio (Arnuity Ellipta) 200 Mcg/Act Inh, 200 MCG IN, INHALER 12/05/23 Atorvastatin Calcium (ATORVASTATIN CALCIUM) 40 Mg Tab, 1 TAB PO DAILY, #30 TAB 5 Refills 12/05/23 Albuterol Sulfate (VENTOLIN MDI) 90 Mcg Ih, 90 MCG IN, INH 12/05/23 Discontinued Reported Medications Midodrine HCl (Midodrine Hydrochloride) 5 Mg Tab, 1 TAB PO TID 01/30/24 Leuprolide Acetate (3 Month) (Lupron Depot) 22.5 Mg Inj, 22.5 MG IM, INJ 12/05/23 Discontinued Scripts Cephalexin (KEFLEX CAPSULE) 250 Mg Cp, 500 MG PO TID for 10 Days, #30 CAP Prov:VENKTA SMILEY MD 04/10/24 Hydrocodone-Acetaminophen (Hydrocodone Bitartrate/AC 10-325 mg) 1 Tab Tab, 1 TAB PO TIDP PRN for 7 Days, #21 TAB Prov:VENKAT SMILEY MD 04/10/24 Information Source: Patient Mode of Arrival: Ambulatory Severity: Moderate Timing: Days Duration: Since onset Prehospital treatment: None Past Medical History PAST MEDICAL HISTORY: Anemia, Cancer, COPD, Schizophrenia Surgical History: Denies all surgeries Family History Family History: Reviewed,noncontributory to illness Social History Smoker: Cigarettes Alcohol: Denies ETOH Use Drugs: Denies Drug Use Lives In: Home Constitutional: reports: weakness; denies: chills, diaphoresis, fatigue, fever, malaise, sweats, others EENTM: denies: blurred vision, double vision, ear bleeding, ear discharge, ear drainage, ear pain, ear ringing, eye pain, eye redness, hearing loss, mouth pain, mouth swelling, nasal discharge, nose bleeding, nose congestion, nose pain, photophobia, tearing, throat pain, throat swelling, voice changes, others Respiratory: denies: cough, hemoptysis, orthopnea, SOB at rest, shortness of breath, SOB with excertion, stridor, wheezing, others Cardiovascular: denies: chest pain, dizzy spells, diaphoresis, Dyspnea on exertion, edema, irregular heart beat, left arm pain, lightheadedness, palpitations, PND, syncope, others Gastrointestinal: denies: abdomen distended, abdominal pain, blood streaked bowels, constipated, diarrhea, dysphagia, difficulty swallowing, hematemesis, melena, nausea, poor appetite, poor fluid intake, rectal bleeding, rectal pain, vomiting, others Genitourinary: denies: burning, dysuria, flank pain, frequency, hematuria, incontinence, penile discharge, penile sore, pain, testicle pain, testicle swelling, urgency, others Neurological: reports: dizziness, weakness; denies: fainting, headache, left sided numbness, left sided weakness, numbness, paresthesia, pre-existing deficit, right sided numbness, right sided weakness, seizure, speech problems, tingling, tremors, others Musculoskeletal: denies: back pain, gout, joint pain, joint swelling, muscle pain, muscle stiffness, neck pain, others Integumetry: denies: bruises, change in color, change in hair/nails, dryness, laceration, lesions, lumps, rash, wounds, others Allergic/Immunocompromised: denies: Difficulty Healing, Frequent Infections, Hives, Itching, others Hematologic/Lymphatic: denies: anemia, blood clots, easy bleeding, easy bruis ing, swollen glands, others Endocrine: denies: excessive hunger, excessive sweating, excessive thirst, exc essive urination, flushing, intolerance to cold, intolerance to heat, unexplained weight gain, unexplained weight loss, others Psychiatric: denies: anxiety, bipolar disorder, depression, hopeless, panic disorder, schizophrenia, sleepless, suicidal, others All Other Systems: Reviewed and Negative Physical Exam General Appearance: No Apparent Distress, Normal HEENT: Normal ENT Inspection, Pharynx Normal, TMs Normal Neck: Full Range of Motion, Non-Tender, Normal, Normal Inspection Respiratory: Chest Non-Tender, Lungs Clear, No Accessory Muscle Use, No Respiratory Distress, Normal Breath Sounds Cardiovascular: No Edema, No JVD, No Murmur, No Gallop, Normal Peripheral Pulses, Regular Rate/Rhythm Breast Exam: Deferred Gastrointestinal: No Organomegaly, Non Tender, No Pulsatile Mass, Normal Bowel Sounds, Soft Genitalia: Deferred Pelvic: Deferred Rectal: Deferred Extremities: No calf tenderness, Normal capillary refill, Normal inspection, Normal range of motion, Non-tender, No pedal edema Musculoskeletal : Apperance: Normal Neurologic: Alert, cvt rn II-XII nml as Tested, No Motor Deficits, Normal Affect, Normal Mood, No Sensory Deficits Cerebellar Function: Normal Reflexes: Normal Skin: Dry, Normal Color, Warm Lymphatic: No Adenopathy Was a procedure done? Was a procedure done?: No Differential Dx Considerations may include: Electrolyte abnormality, anemia X-Ray, Labs, Meds, VS Vital Signs Date Time Temp Pulse Resp B/P (MAP) Pulse Ox O2 Delivery O2 Flow Rate FiO2 06/25/24 08:19 110 18 97 Room Air* 0 21 06/25/24 08:19 98.4 110 18 109/70 (83) 97 98.4 06/25/24 06:30 98.9 105 16 122/73 (89) 96 98.9 Lab Test 06/25/24 06:47 Range/Units White Blood Count 6.6 # 4.4-10.8 10^3/uL Red Blood Count 2.89 L 4.5-5.90 10^6/uL Hemoglobin 8.7 L 13.5-17.5 g/dL Hematocrit 25.1 L 41.0-53.0 % Mean Corpuscular Volume 87.1 80.0-100.0 fL Mean Corpuscular Hemoglobin 30.2 28.0-32.0 pg Mean Corpuscular Hemoglobin Concent 34.7 32.0-36.0 g/dL Red Cell Distribution Width 14.9 H 11.8-14.3 % Platelet Count 86 L 140-450 10^3/uL Mean Platelet Volume 9.9 6.9-10.8 fL Neutrophils (%) (Auto) 67.8 37.0-80.0 % Lymphocytes (%) (Auto) 18.6 10.0-50.0 % Monocytes (%) (Auto) 3.3 0.0-12.0 % Eosinophils (%) (Auto) 8.5 H 0.0-7.0 % Basophils (%) (Auto) 1.8 0.0-2.0 % Neutrophils # (Auto) 4.5 1.6-8.6 10 ^3/uL Lymphocytes # (Auto) 1.2 0.4-5.4 10 ^3/uL Monocytes # (Auto) 0.2 0-1.3 10 ^3/uL Eosinophils # (Auto) 0.6 0-0.8 10 ^3/uL Basophils # (Auto) 0.1 0-0.2 10 ^3/uL Nucleated Red Blood Cells 0.1 % Sodium Level 138 136-145 mmol/L Potassium Level 3.9 3.5-5.1 mmol/L Chloride Level 110 H 98-107 mmol/L Carbon Dioxide Level 22 20-31 mmol/L Anion Gap 6 5-15 Blood Urea Nitrogen 14 9-23 mg/dL Creatinine 0.71 0.700-1.30 mg/dL Glomerular Filtration Rate Calc 101 >90 mL/min BUN/Creatinine Ratio 19.7 10.0-20.0 Serum Glucose 124 H 74-106 mg/dL Calcium Level 9.5 8.7-10.4 mg/dL Time of 1ST Reevaluation: 07:05 Reevaluation 1ST: Unchanged Patient Education/Counseling: Diagnosis, Treatment, Prognosis Family Education/Counseling: No Family Present Additional Information The following tests were ordered, and results were reviewed by me: TYPE AND SCREEN, BMP, CBC I discussed treatment and results with medical personnel and: Patient Comprehensive systems review obtained and negative except for what is stated in the HPI. Departure 1 Departure Time of Disposition: 08:30 (Patient is well known to the ER. Patient's hemoglobin is better than his baseline. We will discharge patient home with outpatient follow up) Impression: Primary Impression: Generalized weakness Additional Impression: MDS (myelodysplastic syndrome) Disposition: 04 [facility] Condition: Stable Additional Instructions: Your hemoglobin today was 8.7. You should continue to take your regular medications if your feeling worse please return to the emergency room Discharged With: Self Critical Care Note Critical Care Time?: No Stability Stability form required: No I personally scribed for RAYRAY PAPPAS MD ([email or web address]) on 06/25/24 at 06:41. Electronically submitted by Capri Gibson ([email or web address]). I personally scribed for RAYRAY PAPPAS MD ([email or web address]) on 06/25/24 at 06:53. Electronically submitted by Capri Gibson ([email or web address]). RAYRAY PAPPAS MD Jun 25, 2024 06:41
[2024-06-25 07:53] LABS: Basophils # (auto) 0.1 10 ^3/uL (0-0.2); Basophils % (auto) 1.8 % (0.0-2.0); Eosinophils # (auto) 0.6 10 ^3/uL (0-0.8); Eosinophils % (auto) 8.5 % (0.0-7.0); Hematocrit 25.1 % (41.0-53.0); Hemoglobin 8.7 g/dL (13.5-17.5); Lymphocytes # (auto) 1.2 10 ^3/uL (0.4-5.4); Lymphocytes % (auto) 18.6 % (10.0-50.0); Mean Corpuscular Hemoglobin 30.2 pg (28.0-32.0); Mean Corpuscular Hgb Conc. 34.7 g/dL (32.0-36.0); Mean Corpuscular Volume 87.1 fL (80.0-100.0); Monocytes # (auto) 0.2 10 ^3/uL (0-1.3); Monocytes % (auto) 3.3 % (0.0-12.0); Neutrophils # (auto) 4.5 10 ^3/uL (1.6-8.6); Neutrophils % (auto) 67.8 % (37.0-80.0); Nucleated Red Blood Cells % 0.1 %; Platelet Count (auto) 86 10^3/uL (140-450); Red Blood Cells 2.89 10^6/uL (4.5-5.90); Red Cell Distribution Width 14.9 % (11.8-14.3); White Blood Cell 6.6 10^3/uL (4.4-10.8)
[2024-06-25 08:04] LABS: Potassium 3.9 mmol/L (3.5-5.1); Sodium 138 mmol/L (136-145)
[2024-06-25 08:05] LABS: Anion Gap 6 (5-15); Calcium 9.5 mg/dL (8.7-10.4); Carbon Dioxide 22 mmol/L (20-31)
[2024-06-25 08:06] LABS: Chloride 110 mmol/L (98-107)
[2024-06-25 08:10] LABS: BUN/Creatinine Ratio 19.7 (10.0-20.0); Blood Urea Nitrogen 14 mg/dL (9-23)
[2024-06-25 08:12] LABS: Glucose 124 mg/dL (74-106)
[2024-06-25 08:19] VITALS: BP 109/70; PULSE 110; RESP 18; TEMP 98.4; O2SAT 97
== END 2024-06-25 08:49 ==
LOC: ER 06:20
DX: D46.9 Myelodysplastic syndrome, unspecified (principal); R53.1 Weakness; J44.9 Chronic obstructive pulmonary disease, unspecified; F20.9 Schizophrenia, unspecified; F17.210 Nicotine dependence, cigarettes, uncomplicated; Z79.82 Long term (current) use of aspirin; Z79.899 Other long term (current) drug therapy
CPT/HCPCS: 36415; 80048; 85025; 86850; 86870; 86900; 86901

== ENCOUNTER 2024-07-02 05:33 | Inpatient (IN) | payer OTHER, MEDICAID ==
[2024-07-02] VITALS (8 sets, daily range): BP systolic 85–144; BP diastolic 44–113; PULSE 83–99; RESP 17–22; TEMP 97.3–98.3; O2SAT 97
[~2024-07-02] VITALS: Ht 180.3 cm; Wt 80.1 kg
--- NOTE | 2024-07-02 06:49 | DVH ---
EXAM: XY CHEST TWO VIEWS ROUTINE INDICATION: sob sob 68 years old, Male; sob. TECHNIQUE: 2 views of the chest COMPARISON: XY CHEST TWO VIEWS ROUTINE on DOS: 01/02/24 FINDINGS: LUNGS: No pleural effusion, consolidation, or pneumothorax. Crowding of bronchovascular markings in t he right lung base. Correlate for atelectasis versus trace central pulmonary vascular congestion. MEDIASTINUM: Unremarkable BONES: No acute osseous abnormality OTHER: None IMPRESSION: 1. Crowding of bronchovascular markings in the right lung base. Correlate for atelectasis versus trac e central pulmonary vascular congestion. HS:Y
[2024-07-02 06:52] LABS: Alanine Aminotransferase 35 U/L (7-40); Alkaline Phosphatase 91 U/L (46-116); Anion Gap 7 (5-15); BUN/Creatinine Ratio 18.8 (10.0-20.0); Basophils # (auto) 0.1 10 ^3/uL (0-0.2); Basophils % (auto) 2.5 % (0.0-2.0); Blood Urea Nitrogen 13 mg/dL (9-23); Calcium 9.3 mg/dL (8.7-10.4); Carbon Dioxide 26 mmol/L (20-31); Eosinophils # (auto) 0.8 10 ^3/uL (0-0.8); Eosinophils % (auto) 13.6 % (0.0-7.0); Hematocrit 21.2 % (41.0-53.0); Hemoglobin 7.1 g/dL (13.5-17.5); Lymphocytes # (auto) 0.6 10 ^3/uL (0.4-5.4); Lymphocytes % (auto) 10.4 % (10.0-50.0); Mean Corpuscular Hemoglobin 28.9 pg (28.0-32.0); Mean Corpuscular Hgb Conc. 33.8 g/dL (32.0-36.0); Mean Corpuscular Volume 85.6 fL (80.0-100.0); Monocytes # (auto) 0.2 10 ^3/uL (0-1.3); Monocytes % (auto) 2.9 % (0.0-12.0); Neutrophils % (auto) 70.6 % (37.0-80.0); Platelet Count (auto) 85 10^3/uL (140-450); Red Blood Cells 2.47 10^6/uL (4.5-5.90); Sodium 143 mmol/L (136-145); Total Protein 7.3 g/dL (5.7-8.2); White Blood Cell 5.6 10^3/uL (4.4-10.8)
[2024-07-02 06:53] LABS: Albumin 3.7 g/dL (3.2-4.8); Aspartate Aminotransferase 16 U/L (13-40); Bilirubin, Total 0.3 mg/dL (0.2-1.0)
[2024-07-02 06:55] LABS: % Iron Saturation 88.8 % (20-55); Chloride 110 mmol/L (98-107); Glucose 114 mg/dL (74-106); Potassium 3.5 mmol/L (3.5-5.1)
--- NOTE | 2024-07-02 07:01 | ED.PDOC ---
History of Present Illness HPI Comments 68-year-old male presents to the ED with chief complaint of shortness of breath. Patient states he has been feeling dizzy, weak, for the past few days due to his history of anemia, knows when he is experiencing those symptoms he needs blood transfusion. Patient states he last got transfused with blood on 06/19/24. PMHx anemia, COPD, cancer, schizophrenia. Denies fever, chills, nausea, vomiting, diarrhea, abdominal pain, chest pain, dysuria. No other symptoms or modifying factors present at this time Chief Complaint: Shortness of Breath Time Seen by MD: 06:46 Primary Care Provider: MADDIE Reviewed Notes: Medications, Allergies Allergies: Coded Allergies: NO KNOWN ALLERGIES (Unverified , 12/04/23) Home Meds Active Scripts Midodrine Hcl (Midodrine Hcl) 10 Mg Tab, 10 MG PO TID for 30 Days, #90 TAB 3 Refills Prov:YOANDY SALAS NP 06/06/24 Hydrocortone (Hydrocortisone 1%) 1 Applic Ap, 1 APPLIC TOP BID, #30 GRAMS Prov:JUAN ROGERS MD 02/08/24 Reported Medications Hydrocodone-Acetaminophen (Hydrocodone Bitartrate/AC 10-325 mg) 1 Tab Tab, 1 TAB PO, TAB 06/18/24 Aspirin (Aspir-81) 81 Mg Tab, 1 TAB PO DAILY, #30 TAB 5 Refills 03/10/24 Risperidone (Risperidone) 2 Mg Tab, 2 MG PO BID, TAB 12/05/23 Nicotine (Nicoderm 21MG/24HR) 1 Patch Ph, 1 PATCH TOP DAILY, #28 PATCH 1 Refill 12/05/23 Mirtazapine (Mirtazapine Oral Disintegrating Tablet) 45 Mg Tab, 1 TAB PO QPM, #30 TAB 1 Refill 12/05/23 Melatonin (KP MELATONIN) 3 Mg Tab, 3 MG PO HS, TAB 12/05/23 Gabapentin (Gabapentin) 600 Mg Tab, 600 MG PO BID, TAB 12/05/23 Folic Acid (Folic Acid) 1 Mg Tab, 1 MG PO DAILY for 30 Days, MG 12/05/23 Fluticasone Furoate (Inhalatio (Arnuity Ellipta) 200 Mcg/Act Inh, 200 MCG IN, INHALER 12/05/23 Atorvastatin Calcium (ATORVASTATIN CALCIUM) 40 Mg Tab, 1 TAB PO DAILY, #30 TAB 5 Refills 12/05/23 Albuterol Sulfate (VENTOLIN MDI) 90 Mcg Ih, 90 MCG IN, INH 12/05/23 Information Source: Patient Mode of Arrival: Ambulatory Severity: Moderate Timing: Days Duration: Since onset Prehospital treatment: None Past Medical History PAST MEDICAL HISTORY: Anemia, Cancer, COPD, Schizophrenia Surgical History: Denies all surgeries Family History Family History: Reviewed,noncontributory to illness Social History Smoker: Cigarettes Alcohol: Denies ETOH Use Drugs: Denies Drug Use Lives In: Home Constitutional: reports: weakness; denies: chills, diaphoresis, fatigue, fever, malaise, sweats, others EENTM: denies: blurred vision, double vision, ear bleeding, ear discharge, ear drainage, ear pain, ear ringing, eye pain, eye redness, hearing loss, mouth pain, mouth swelling, nasal discharge, nose bleeding, nose congestion, nose pain, photophobia, tearing, throat pain, throat swelling, voice changes, others Respiratory: reports: shortness of breath; denies: cough, hemoptysis, orthopnea, SOB at rest, SOB with excertion, stridor, wheezing, others Cardiovascular: denies: chest pain, dizzy spells, diaphoresis, Dyspnea on exertion, edema, irregular heart beat, left arm pain, lightheadedness, palpitations, PND, syncope, others Gastrointestinal: denies: abdomen distended, abdominal pain, blood streaked bowels, constipated, diarrhea, dysphagia, difficulty swallowing, hematemesis, melena, nausea, poor appetite, poor fluid intake, rectal bleeding, rectal pain, vomiting, others Genitourinary: denies: burning, dysuria, flank pain, frequency, hematuria, incontinence, penile discharge, penile sore, pain, testicle pain, testicle swelling, urgency, others Neurological: reports: dizziness, weakness; denies: fainting, headache, left sided numbness, left sided weakness, numbness, paresthesia, pre-existing deficit, right sided numbness, right sided weakness, seizure, speech problems, tingling, tremors, others Musculoskeletal: denies: back pain, gout, joint pain, joint swelling, muscle pain, muscle stiffness, neck pain, others Integumetry: denies: bruises, change in color, change in hair/nails, dryness, laceration, lesions, lumps, rash, wounds, others Allergic/Immunocompromised: denies: Difficulty Healing, Frequent Infections, Hives, Itching, others Hematologic/Lymphatic: denies: anemia, blood clots, easy bleeding, easy bruising, swollen glands, others Endocrine: denies: excessive hunger, excessive sweating, excessive thirst, excessive urination, flushing, intolerance to cold, intolerance to heat, unexplained weight gain, unexplained weight loss, others Psychiatric: denies: anxiety, bipolar disorder, depression, hopeless, panic disorder, schizophrenia, sleepless, suicidal, others All Other Systems: Reviewed and Negative Physical Exam General Appearance: No Apparent Distress, Normal HEENT: Normal ENT Inspection, Pharynx Normal, TMs Normal Neck: Full Range of Motion, Non-Tender, Normal, Normal Inspection Respiratory: Chest Non-Tender, Lungs Clear, No Accessory Muscle Use, No Respiratory Distress, Normal Breath Sounds Cardiovascular: No Edema, No JVD, No Murmur, No Gallop, Normal Peripheral Pulses, Regular Rate/Rhythm Breast Exam: Deferred Gastrointestinal: No Organomegaly, Non Tender, No Pulsatile Mass, Normal Bowel Sounds, Soft Genitalia: Deferred Pelvic: Deferred Rectal: Deferred Extremities: No calf tenderness, Normal capillary refill, Normal inspection, Normal range of motion, Non-tender, No pedal edema Musculoskeletal : Apperance: Normal Neurologic: Alert, x ray equipment servicer II-XII nml as Tested, No Motor Deficits, Normal Affect, Normal Mood, No Sensory Deficits Cerebellar Function: Normal Reflexes: Normal Skin: Dry, Normal Color, Warm Lymphatic: No Adenopathy Was a procedure done? Was a procedure done?: No Differential Dx Considerations may include: Symptomatic anemia X-Ray, Labs, Meds, VS Vital Signs Date Time Temp Pulse Resp B/P (MAP) Pulse Ox O2 Delivery O2 Flow Rate FiO2 07/02/24 05:48 98.1 108 20 102/54 (70) 99 98.1 Lab Test 07/02/24 06:09 Range/Units White Blood Count 5.6 4.4-10.8 10^3/uL Red Blood Count 2.47 L 4.5-5.90 10^6/uL Hemoglobin 7.1 #L 13.5-17.5 g/dL Hematocrit 21.2 #L 41.0-53.0 % Mean Corpuscular Volume 85.6 80.0-100.0 fL Mean Corpuscular Hemoglobin 28.9 28.0-32.0 pg Mean Corpuscular Hemoglobin Concent 33.8 32.0-36.0 g/dL Red Cell Distribution Width 15.0 H 11.8-14.3 % Platelet Count 85 L 140-450 10^3/uL Mean Platelet Volume 10.0 6.9-10.8 fL Neutrophils (%) (Auto) 70.6 37.0-80.0 % Lymphocytes (%) (Auto) 10.4 10.0-50.0 % Monocytes (%) (Auto) 2.9 0.0-12.0 % Eosinophils (%) (Auto) 13.6 H 0.0-7.0 % Basophils (%) (Auto) 2.5 H 0.0-2.0 % Neutrophils # (Auto) 4.0 1.6-8.6 10 ^3/uL Lymphocytes # (Auto) 0.6 0.4-5.4 10 ^3/uL Monocytes # (Auto) 0.2 0-1.3 10 ^3/uL Eosinophils # (Auto) 0.8 0-0.8 10 ^3/uL Basophils # (Auto) 0.1 0-0.2 10 ^3/uL Nucleated Red Blood Cells 0.0 % Sodium Level 143 # 136-145 mmol/L Potassium Level 3.5 3.5-5.1 mmol/L Chloride Level 110 H 98-107 mmol/L Carbon Dioxide Level 26 20-31 mmol/L Anion Gap 7 5-15 Blood Urea Nitrogen 13 9-23 mg/dL Creatinine 0.69 L 0.700-1.30 mg/dL Glomerular Filtration Rate Calc 102 >90 mL/min BUN/Creatinine Ratio 18.8 10.0-20.0 Serum Glucose 114 H 74-106 mg/dL Calcium Level 9.3 8.7-10.4 mg/dL Iron Level 135 65-175 ug/dL Total Iron Binding Capacity 152 L 250-425 ug/dL Percent Iron Saturation 88.8 H 20-55 % Total Bilirubin 0.3 0.2-1.0 mg/dL Aspartate Amino Transferase (AST) 16 13-40 U/L Alanine Aminotransferase (ALT) 35 7-40 U/L Alkaline Phosphatase 91 46-116 U/L Total Protein 7.3 5.7-8.2 g/dL Albumin 3.7 3.2-4.8 g/dL [facility] [id number] [place] [id number] Ph: [phone] DIAGNOSTIC IMAGING Diagnostic Imaging Report : [id number] Signed PATIENT: MEME ALONSO JRACCT: [id number] UNIT: [id number] : 1955 LOC: ER ROOM / BED: / AGE / SEX: 68 / M ADM STATUS: REG ER SERVICE [id number] ORDERING PHYSICIAN: EMMA LLAMAS PROCEDURE(s): CXR2 - CHEST TWO VIEWS ROUTINE REASON: sob ORDER NUMBER(s): [id number], ACCESSION NUMBER(s): [id number] EXAM: XY CHEST TWO VIEWS ROUTINE INDICATION: sob sob 68 years old, Male; sob. TECHNIQUE: 2 views of the chest COMPARISON: XY CHEST TWO VIEWS ROUTINE on DOS: 01/02/24 FINDINGS: LUNGS: No pleural effusion, consolidation, or pneumothorax. Crowding of bronchovascular markings in the right lung base. Correlate for atelectasis versus trace central pulmonary vascular congestion. MEDIASTINUM: Unremarkable BONES: No acute osseous abnormality OTHER: None IMPRESSION: 1. Crowding of bronchovascular markings in the right lung base. Correlate for atelectasis versus trace central pulmonary vascular congestion. HS:Y ATED BY: KEMI KELLER MD DICTATED DATE/TIME: 07/02/24645 SIGNED BY: KEMI KELLER MD SIGNED DATE/TIME: 07/02/24645 CC: Time of 1ST Reevaluation: 07:16 Reevaluation 1ST: Unchanged Patient Education/Counseling: Diagnosis, Treatment, Prognosis Family Education/Counseling: No Family Present Additional Information The following tests were ordered, and results were reviewed by me: CBC, CMP, IRON PANEL, XY CHEST 2 VIEWS, EKG I reviewed and agreed with the following test results read by other providers: XY CHEST 2 VIEWS I discussed treatment and results with medical personnel and: Patient Comprehensive systems review obtained and negative except for what is stated in the HPI. Departure 1 Departure Time of Disposition: 08:44 (Patient with symptomatic anemia likely secondary to his myelodysplastic syndrome. We will admit patient for further workup and order a transfusion.) Impression: Primary Impression: Symptomatic anemia Additional Impressions: Shortness of breath Generalized weakness Disposition: ADMITTED INPATIENT Admit to: Med Surg Condition: Serious Critical Care Note Critical Care Time?: Yes Critical care comment: Shortness of breath, symptomatic anemia Authorized and Performed by: Rayray Dougherty MD Total critical care time: Approximately 39 minutes Due to a high probability of clinically significant, life threatening deterioration, the patient required my highest level of preparedness to intervene emergently and I personally spent this critical care time directly and personally managing the patient. This critical care time included obtaining a history; examining the patient; pulse oximetry; ordering and review of studies; arranging urgent treatment with development of a management plan; evaluation of patient's response to treatment; frequent reassessment; and, discussions with ot her providers. This critical care time was performed to assess and manage the high probability of imminent, life-threatening deterioration that could result in multi-organ failure. It was exclusive of separately billable procedures and treating other patients and teaching time. Please see my other sections and the rest of the note for further information on patient assessment and treatment. Stability Stability form required: No I personally scribed for RAYRAY DOUGHERTY MD ([email or web address]) on 07/02/24 at 07:01. Electronically submitted by Capri Gibson ([email or web address]). I personally scribed for RAYRAY DOUGHERTY MD ([email or web address]) on 07/02/24 at 07:49. Electronically submitted by Capri Gibson ([email or web address]). RAYRAY DOUGHERTY MD Jul 02, 2024 07:01
[2024-07-02] MEDS ORDERED: DOCUSATE SOD 100 MG CAP PO PRN (09:00)
[2024-07-02] MEDS ORDERED: ACETAMINOPHEN 325 MG TAB PO PRN (09:00)
[2024-07-02] MEDS ORDERED: ONDANSETRON HCL 4 MG/2 ML VIAL IV PRN (09:00)
[2024-07-02] MEDS ORDERED: FURO40TA4 PO (09:00)
--- NOTE | 2024-07-02 09:06 | DVHHP2 ---
History of Present Illness Reason for Visit: Shortness of breath History of Present Illness Eugene Alejandro is a 68-year-old male, with past medical history of prostate cancer, MDS, schizophrenia, and COPD, who came in for generalized weakness. Patient is seen frequently with generalized weakness requiring blood transfusion due to myelodysplastic syndrome. Patient states this morning he had a syncopal episode. Pulmonary: COPD Heme/Onc: Cancer (Prostate), Other (MDS) Past Surgical History: Other (Right leg skin graft), Tonsillectomy Smoke: <1 pack per day ALCOHOL: none Drugs: None Lives: with Family Domestic Violence: Neg Review of Systems Constitutional: Yes: Weakness, Malaise; No: Fever, Chills, Sweats, Other Eyes: No: Pain, Vision change, Conjunctivae inflammation, Eyelid inflammation, Other, Redness ENT: No: Ear pain, Ear discharge, Nose pain, Nose discharge, Nose congestion, Mouth pain, Mouth swelling, Throat pain, Throat swelling, Other Respiratory: Shortness of breath; No: Cough, Dry, SOB with excertion, Wheezing, Hemoptysis, Pleuritic Pain, Sputum, Wheezing, Other Cardiovascular: No: Chest Pain, Palpitations, Orthopnea, Paroxysmal Noc. Dyspnea, Edema, Lt Headedness, Other Gastrointestinal: No: Nausea, Vomiting, Abdominal Pain, Diarrhea, Constipation, Melena, Hematochezia, Other Genitourinary: No Dysuria, No Frequency, No Incontinence, No Hematuria, No Retention, No Other Musculoskeletal: No: other, neck pain, shoulder pain, arm pain, back pain, hand pain, leg pain, foot pain Skin: No: Rash, Lesions, Jaundice, Bruising, Other Neurological: Other (syncope); No: Weakness, Numbness, Incoordination, Change in speech, Confusion, Seizures Allergies: Coded Allergies: NO KNOWN ALLERGIES (Unverified , 12/04/23) Medications Current Medications Medications Dose Ordered Sig/Fabricio Route Start Time Stop Time Status Last Admin Dose Admin Sodium Chloride 10 ml Q8HR IV 07/02/24 14:00 UNV Acetaminophen/ Hydrocodone Bitart 1 tab Q4HP PRN PO 07/02/24 09:00 UNV Ondansetron HCl 4 mg Q4HP PRN IV 07/02/24 09:00 UNV Docusate Sodium 100 mg BIDPRN PRN PO 07/02/24 09:00 UNV Acetaminophen 650 mg Q6HP PRN PO 07/02/24 09:00 UNV Aspirin 81 mg DAILY PO 07/02/24 10:00 UNV Midodrine 10 mg TID PO 07/02/24 14:00 UNV Patient Own Medication 1 tab DAILY PO 07/02/24 10:00 UNV Patient Own Medication 1 mg DAILY PO 07/02/24 10:00 UNV Patient Own Medication 600 mg BID PO 07/02/24 10:00 UNV Patient Own Medication 3 mg HS PO 07/02/24 22:00 UNV Patient Own Medication 1 tab QPM PO 07/02/24 18:00 UNV Patient Own Medication 2 mg BID PO 07/02/24 10:00 UNV Exam Vital Signs Vital Signs Date Time Temp Pulse Resp B/P (MAP) Pulse Ox O2 Delivery O2 Flow Rate FiO2 07/02/24 05:48 98.1 108 20 102/54 (70) 99 98.1 General Appearance: Alert, Oriented X3, Cooperative, mild distress HEENT: Atraumatic, PERRLA, Mucous membr. moist/pink Respiratory: Clear to auscultation, Normal air movement Cardiovascular: Regular rate, Normal S1, Normal S2, No murmurs Abdominal: Normal bowel sounds, Soft, No tenderness, No hepatospenomegaly Extremities: No clubbing, No cyanosis, No edema, Normal pulses, No tenderness/swelling Skin: No rashes, No breakdown, No significant lesion Neuro: Normal gait, Normal speech, Strength at 5/5 X4 ext, Normal tone Psych/Mental Status: Mental status NL, Mood NL Labs/Xrays Labs Test 07/02/24 06:09 Range/Units White Blood Count 5.6 4.4-10.8 10^3/uL Red Blood Count 2.47 L 4.5-5.90 10^6/uL Hemoglobin 7.1 #L 13.5-17.5 g/dL Hematocrit 21.2 #L 41.0-53.0 % Mean Corpuscular Volume 85.6 80.0-100.0 fL Mean Corpuscular Hemoglobin 28.9 28.0-32.0 pg Mean Corpuscular Hemoglobin Concent 33.8 32.0-36.0 g/dL Red Cell Distribution Width 15.0 H 11.8-14.3 % Platelet Count 85 L 140-450 10^3/uL Mean Platelet Volume 10.0 6.9-10.8 fL Neutrophils (%) (Auto) 70.6 37.0-80.0 % Lymphocytes (%) (Auto) 10.4 10.0-50.0 % Monocytes (%) (Auto) 2.9 0.0-12.0 % Eosinophils (%) (Auto) 13.6 H 0.0-7.0 % Basophils (%) (Auto) 2.5 H 0.0-2.0 % Neutrophils # (Auto) 4.0 1.6-8.6 10 ^3/uL Lymphocytes # (Auto) 0.6 0.4-5.4 10 ^3/uL Monocytes # (Auto) 0.2 0-1.3 10 ^3/uL Eosinophils # (Auto) 0.8 0-0.8 10 ^3/uL Basophils # (Auto) 0.1 0-0.2 10 ^3/uL Nucleated Red Blood Cells 0.0 % Sodium Level 143 # 136-145 mmol/L Potassium Level 3.5 3.5-5.1 mmol/L Chloride Level 110 H 98-107 mmol/L Carbon Dioxide Level 26 20-31 mmol/L Anion Gap 7 5-15 Blood Urea Nitrogen 13 9-23 mg/dL Creatinine 0.69 L 0.700-1.30 mg/dL Glomerular Filtration Rate Calc 102 >90 mL/min BUN/Creatinine Ratio 18.8 10.0-20.0 Serum Glucose 114 H 74-106 mg/dL Calcium Level 9.3 8.7-10.4 mg/dL Iron Level 135 65-175 ug/dL Total Iron Binding Capacity 152 L 250-425 ug/dL Percent Iron Saturation 88.8 H 20-55 % Total Bilirubin 0.3 0.2-1.0 mg/dL Aspartate Amino Transferase (AST) 16 13-40 U/L Alanine Aminotransferase (ALT) 35 7-40 U/L Alkaline Phosphatase 91 46-116 U/L Total Protein 7.3 5.7-8.2 g/dL Albumin 3.7 3.2-4.8 g/dL Assessment/Plan Assessment/Plan Assessment: Symptomatic anemia, Syncopal episode, MDS, Hyperlipidemia, COPD, Schizophrenia, Plan: Admit to Med-Surg, Transfuse 2 unit PRBC, Manage/Monitor Hgb closely, Supplemental oxygen as needed, Home medications reconciled, Plan discussed with: Patient My Orders Orders - ANNIKA SYED Procedure Category Date Status Time Admit ADMIT 07/02/24 Transmitted 08:47 Code Status CODE 07/02/24 Transmitted 08:47 Sodium Chloride Lock PHA 07/02/24 Logged (Saline Lock Ns) 14:00 Hydrocodone-Acet PHA 07/02/24 Logged 5/325mg Tab ([place] 09:00 Ondansetron Hcl PHA 07/02/24 Transmitted (Zofran) 09:00 Docusate Sodium PHA 07/02/24 Transmitted Capsule (Colace 09:00 Complete Blood Count LAB 07/03/24 Verified 04:00 Comprehensive LAB 07/03/24 Verified Metabolic Panel 04:00 Condition: Serious KATIA 07/02/24 Transmitted 08:47 Acetaminophen Tablet PHA 07/02/24 Transmitted (Tylenol Tablet) 09:00 Aspirin Enteric PHA 07/02/24 Transmitted Coated Tablet 10:00 Midodrine Tablet PHA 07/02/24 Transmitted (Proamatine Tablet) 14:00 (Nf) Atorvastatin PHA 07/02/24 Transmitted Calcium 10:00 (Nf) Folic Acid PHA 07/02/24 Transmitted 10:00 (Nf) Gabapentin PHA 07/02/24 Transmitted 10:00 (Nf) Melatonin (Kp PHA 07/02/24 Transmitted Melatonin) 22:00 (Nf) Mirtazapine PHA 07/02/24 Transmitted (Mirtazapine Oral 18:00 (Nf) Risperidone PHA 07/02/24 Transmitted 10:00 Date of Service: Jul 02, 2024 Billing Provider: ANNIKA SYED Common Visit Codes: [id number] INP/OBS CARE (MOD) ANNIKA SYED Jul 02, 2024 09:06
[2024-07-02] MEDS ORDERED: PATIENTS OWN MEDICATION (Folic Acid 1 MG) PO SCH (10:00)
[2024-07-02] MEDS ORDERED: PATIENTS OWN MEDICATION (Gabapentin 600 MG) PO SCH (10:00)
[2024-07-02] MEDS ORDERED: PATIENTS OWN MEDICATION (Atorvastatin Calcium 1 TAB) PO SCH (10:00)
[2024-07-02] MEDS ORDERED: RISPERIDONE 2 MG PO SCH (10:00)
[2024-07-02] MEDS: ASPirin-EC 81 mg tab PO SCH (13:38)
[2024-07-02] MEDS: FUROSEMIDE 40 MG TAB PO SCH (13:38)
[2024-07-02] MEDS: SODIUM CHLOR 0.9% PF (SALINE LOCK) 10ML VIAL/SYR IV SCH (13:46)
[2024-07-02] MEDS: MIDODRINE HCL 10 MG TAB PO SCH (14:00)
[2024-07-02] MEDS: MIRTAZAPINE 45 MG PO SCH (18:00)
[2024-07-02] MEDS: risperiDONE 1 MG TAB PO SCH (22:28)
[2024-07-02] MEDS: ATORVASTATIN 20 MG TAB PO SCH (22:30)
[2024-07-02] MEDS: MELATONIN 3 MG PO SCH (22:30)
[2024-07-02] MEDS: GABAPENTIN 300 MG CAP PO SCH (22:30)
[2024-07-03] VITALS (9 sets, daily range): BP systolic 98–119; BP diastolic 50–63; PULSE 39–103; RESP 17–87; TEMP 98.1–99.8; O2SAT 96–100
[2024-07-03 08:15] LABS: Basophils # (auto) 0.1 10 ^3/uL (0-0.2); Eosinophils # (auto) 0.6 10 ^3/uL (0-0.8); Hematocrit 22.2 % (41.0-53.0); Hemoglobin 7.4 g/dL (13.5-17.5); Lymphocytes # (auto) 0.8 10 ^3/uL (0.4-5.4); Mean Corpuscular Hemoglobin 28.3 pg (28.0-32.0); Monocytes # (auto) 0.2 10 ^3/uL (0-1.3); Monocytes % (auto) 2.9 % (0.0-12.0); Red Blood Cells 2.63 10^6/uL (4.5-5.90)
[2024-07-03 08:18] LABS: Basophils % (auto) 1.3 % (0.0-2.0); Eosinophils % (auto) 9.4 % (0.0-7.0); Lymphocytes % (auto) 12.1 % (10.0-50.0); Mean Corpuscular Hgb Conc. 33.5 g/dL (32.0-36.0); Mean Corpuscular Volume 84.4 fL (80.0-100.0); Neutrophils % (auto) 74.3 % (37.0-80.0); Platelet Count (auto) 71 10^3/uL (140-450); Red Cell Distribution Width 15.2 % (11.8-14.3); White Blood Cell 6.8 10^3/uL (4.4-10.8)
[2024-07-03 08:25] LABS: Alanine Aminotransferase 30 U/L (7-40); Alkaline Phosphatase 77 U/L (46-116); Anion Gap 5 (5-15); Aspartate Aminotransferase 14 U/L (13-40); BUN/Creatinine Ratio 20.6 (10.0-20.0); Bilirubin, Total 0.7 mg/dL (0.2-1.0); Blood Urea Nitrogen 14 mg/dL (9-23); Calcium 8.7 mg/dL (8.7-10.4); Carbon Dioxide 25 mmol/L (20-31); Glucose 92 mg/dL (74-106); Potassium 3.7 mmol/L (3.5-5.1); Sodium 138 mmol/L (136-145); Total Protein 6.3 g/dL (5.7-8.2)
[2024-07-03 08:27] LABS: Albumin 3.1 g/dL (3.2-4.8); Chloride 108 mmol/L (98-107)
[2024-07-03] MEDS: HYDROcodone-ACET 5/325MG TAB PO PRN (09:05)
[2024-07-03] MEDS: FOLIC ACID 1 MG TAB PO SCH (09:06)
[2024-07-03] MEDS ORDERED: risperiDONE 1 MG TAB PO SCH (10:00)
[2024-07-03 10:43] LABS: Hepatitis B Surface Antigen Negative (Negative); Hepatitis C Antibody Negative (Negative)
--- NOTE | 2024-07-03 14:48 | DVHPN2 ---
Subjective Patient denies any symptoms Reviewed: Care Plan, H&P, Labs, Medications, Previous Orders Changes from previous H/P or p: No Changes General: Per HPI Eyes: No Pain, No Vision change, No Conjunctivae inflammation, No Eyelid inflammation, No Other, No Redness ENT: No Ear pain, No Ear discharge, No Nose pain, No Nose discharge, No Nose congestion, No Mouth pain, No Mouth swelling, No Throat pain, No Throat swelling, No Other Cardiovascular: No Chest Pain, No Palpitations, No Orthopnea, No Paroxysmal Noc. Dyspnea, No Edema, No Lt Headedness, No Other Respiratory: No Cough, No Dry; Shortness of breath; No SOB with excertion, No Wheezing, No Hemoptysis, No Pleuritic Pain, No Sputum, No Other Gastrointestinal: No Nausea, No Vomiting, No Abdominal Pain, No Diarrhea, No Constipation, No Melena, No Hematochezia, No Other Genitourinary: No Dysuria, No Frequency, No Incontinence, No Hematuria, No Retention, No Other Musculoskeletal: No other, No neck pain, No shoulder pain, No arm pain, No back pain, No hand pain, No leg pain, No foot pain Skin: No Rash, No Lesions, No Jaundice, No Bruising, No Other Objective Vitals Vital Signs Date Time Temp Pulse Resp B/P (MAP) Pulse Ox O2 Delivery O2 Flow Rate FiO2 07/03/24 12:57 98.8 87 17 117/52 (73) 96 98.8 07/03/24 08:00 Room Air* 0 21 Intake/Output Intake and Output 07/03/24 07:00 Intake Total 1450 ml Output Total 0 ml Balance 1450 ml Intake Oral 250 ml Tube Feeding 0 ml Blood Product 1200 ml Other 0 ml Output Urine Total 0 ml General Appearance: Alert, Oriented X3, Cooperative, No acute distress, mild distress, moderate distress HEENT: Atraumatic, PERRLA Lungs: Clear to auscultation, Normal air movement Cardiovascular: Normal S1, Normal S2 Abdomen: Normal bowel sounds Back: Flank Tenderness, Midline Tenderness Musculoskeletal: Normal sensory function, Normal motor function Skin: Dry, Intact Psych/Mental Status: Mental status NL, Mood NL Medications Current Medications Medications Dose Ordered Sig/Fabricio Route Start Time Stop Time Status Last Admin Dose Admin Sodium Chloride 10 ml Q8HR IV 07/02/24 14:00 07/03/24 13:53 10 ML Acetaminophen/ Hydrocodone Bitart 1 tab Q4HP PRN PO 07/02/24 09:00 07/03/24 09:05 1 TAB Ondansetron HCl 4 mg Q4HP PRN IV 07/02/24 09:00 Docusate Sodium 100 mg BIDPRN PRN PO 07/02/24 09:00 Acetaminophen 650 mg Q6HP PRN PO 07/02/24 09:00 Aspirin 81 mg DAILY PO 07/02/24 10:00 Hold Midodrine 10 mg TID PO 07/02/24 14:00 07/03/24 13:53 10 MG Patient Own Medication 1 tab DAILY PO 07/02/24 10:00 UNV Patient Own Medication 1 mg DAILY PO 07/02/24 10:00 UNV Patient Own Medication 600 mg BID PO 07/02/24 10:00 UNV Patient Own Medication 3 mg HS PO 07/02/24 22:00 Patient Own Medication 1 tab QPM PO 07/02/24 18:00 Patient Own Medication 2 mg BID PO 07/02/24 10:00 UNV Furosemide 40 mg DAILY PO 07/02/24 10:00 07/03/24 09:06 40 MG Atorvastatin Calcium 40 mg HS PO 07/02/24 22:00 07/02/24 22:30 40 MG Folic Acid 1 mg DAILY PO 07/03/24 10:00 07/03/24 09:06 1 MG Gabapentin 600 mg BID PO 07/02/24 22:00 07/03/24 09:05 600 MG Risperidone 2 mg BID PO 07/02/24 22:00 07/03/24 09:06 2 MG Laboratory Results Laboratory Tests 07/03/24 07:39 Chemistry Test 07/03/24 07:39 Albumin 3.1 g/dL (3.2-4.8) L Calcium Level 8.7 mg/dL (8.7-10.4) Total Protein 6.3 g/dL (5.7-8.2) LFT Test 07/03/24 07:39 Alanine Aminotransferase (ALT) 30 U/L (7-40) Alkaline Phosphatase 77 U/L (46-116) Aspartate Amino Transferase (AST) 14 U/L (13-40) Total Bilirubin 0.7 mg/dL (0.2-1.0) Labs and/or images reviewed: Labs reviewed by me, Image(s) reviewed by me Assessment/Plan Assessment/Plan Impression: -myelodysplastic disorder -hospital schizophrenia -chronic hypotension -chronic anemia Plan: -continue midodrine -given additional1 unit PRBC -continue risperidone -repeat labs in a.m. Total time spent with patient discussing and formulating plan of care: 35 minutes. This medical document was created using an electronic medical record system with [employer] dictation system. Although this document has been carefully reviewed, there may still be some phonetic and typographical errors. These areas are purely typographical due to imperfections of the software programs, and do not reflect any compromise in the patient's medical care. Plan discussed with: Patient, Other (RN) My Orders Orders - YOANDY SALAS NP Procedure Category Date Status Time Hemoglobin & LAB 07/04/24 Verified Hematocrit 04:00 Date of Service: Jul 03, 2024 Billing Provider: YOANDY SALAS NP Common Visit Codes: [id number] INP/OBS CARE(HIGH) YOANDY SALAS NP Jul 03, 2024 14:48
[2024-07-04 01:00] VITALS: BP 89/57; PULSE 78; RESP 17; TEMP 98.9; O2SAT 97
[2024-07-04 07:56] LABS: Hematocrit 26.7 % (41.0-53.0); Hemoglobin 9.2 g/dL (13.5-17.5)
[2024-07-04 08:00] VITALS: PULSE 77; RESP 18
[2024-07-04 08:14] LABS: Anion Gap 6 (5-15); Carbon Dioxide 25 mmol/L (20-31); Chloride 108 mmol/L (98-107); Potassium 3.8 mmol/L (3.5-5.1); Sodium 139 mmol/L (136-145)
[2024-07-04 08:15] LABS: Calcium 9.4 mg/dL (8.7-10.4)
[2024-07-04 08:20] LABS: BUN/Creatinine Ratio 18.5 (10.0-20.0); Blood Urea Nitrogen 12 mg/dL (9-23); Glucose 93 mg/dL (74-106)
[2024-07-04 09:00] VITALS: BP 94/55; PULSE 77; RESP 18; TEMP 98.4; O2SAT 93
[2024-07-04 12:47] VITALS: BP 97/59; PULSE 78; RESP 16; TEMP 98.1; O2SAT 98
--- NOTE | 2024-07-04 14:09 | DVHDS2 ---
Discharge Summary Date of Admission Jul 02, 2024 at 08:47 Date of Discharge: Jul 04, 2024 Admitting Diagnosis Symptomatic anemia Labs/Diagnostic Data: Laboratory Results Test 07/04/24 06:56 07/03/24 07:39 07/02/24 06:09 Hemoglobin 9.2 g/dL (13.5-17.5) Hematocrit 26.7 % (41.0-53.0) Sodium Level 139 mmol/L (136-145) Potassium Level 3.8 mmol/L (3.5-5.1) Chloride Level 108 mmol/L (98-107) Carbon Dioxide Level 25 mmol/L (20-31) Anion Gap 6 (5-15) Blood Urea Nitrogen 12 mg/dL (9-23) Creatinine 0.65 mg/dL (0.700-1.30) Glomerular Filtration Rate Calc 104 mL/min (>90) BUN/Creatinine Ratio 18.5 (10.0-20.0) Serum Glucose 93 mg/dL (74-106) Calcium Level 9.4 mg/dL (8.7-10.4) White Blood Count 6.8 10^3/uL (4.4-10.8) Red Blood Count 2.63 10^6/uL (4.5-5.90) Mean Corpuscular Volume 84.4 fL (80.0-100.0) Mean Corpuscular Hemoglobin 28.3 pg (28.0-32.0) Mean Corpuscular Hemoglobin Concent 33.5 g/dL (32.0-36.0) Red Cell Distribution Width 15.2 % (11.8-14.3) Platelet Count 71 10^3/uL (140-450) Mean Platelet Volume 9.5 fL (6.9-10.8) Neutrophils (%) (Auto) 74.3 % (37.0-80.0) Lymphocytes (%) (Auto) 12.1 % (10.0-50.0) Monocytes (%) (Auto) 2.9 % (0.0-12.0) Eosinophils (%) (Auto) 9.4 % (0.0-7.0) Basophils (%) (Auto) 1.3 % (0.0-2.0) Neutrophils # (Auto) 5.0 10 ^3/uL (1.6-8.6) Lymphocytes # (Auto) 0.8 10 ^3/uL (0.4-5.4) Monocytes # (Auto) 0.2 10 ^3/uL (0-1.3) Eosinophils # (Auto) 0.6 10 ^3/uL (0-0.8) Basophils # (Auto) 0.1 10 ^3/uL (0-0.2) Nucleated Red Blood Cells 0.0 % Total Bilirubin 0.7 mg/dL (0.2-1.0) Aspartate Amino Transferase (AST) 14 U/L (13-40) Alanine Aminotransferase (ALT) 30 U/L (7-40) Alkaline Phosphatase 77 U/L (46-116) Total Protein 6.3 g/dL (5.7-8.2) Albumin 3.1 g/dL (3.2-4.8) Hepatitis B Surface Antigen Negative (Negative) Hepatitis C Antibody Negative (Negative) Iron Level 135 ug/dL (65-175) Total Iron Binding Capacity 152 ug/dL (250-425) Percent Iron Saturation 88.8 % (20-55) Other Laboratory Tests 07/04/24 06:56 07/03/24 07:39 Brief Hx & Hospital Course: History of Present Illness Eugene Alejandro is a 68-year-old male, with past medical history of prostate cancer, MDS, schizophrenia, and COPD, who came in for generalized weakness. Patient is seen frequently with generalized weakness requiring blood transfusion due to myelodysplastic syndrome. Patient states this morning he had a syncopal episode. Course of hospitalization: Patient was given a total of 3 units PRBCs. Patient was continued on his home medications including midodrine. The patient's hemoglobin is now 9.4. He was instructed to follow up with his PCP, Dr. Bosch in 1-2 weeks. He was also instructed to continue all his previous home medications. Physical examination General: Alert and Oriented x3. No acute distress. Well-nourished. Eyes: EOMI. Anicteric. HENT: Moist mucous membranes. Lungs: Clear to auscultation bilaterally. No accessory muscle use. Cardiovascular: Regular rate and rhythm. No murmur. No JVD. Abdomen: Soft, non-tender and non-distended. No palpable masses. Extremities: No edema. Non-tender. Skin: No rashes or lesions. Warm. Neurologic: No focal neurological deficits. CN II-XII grossly intact, but not individually tested. Psychiatric: Cooperative. Appropriate mood and affect. Total time spent with patient discussing and formulating plan of care: 35 minutes. This medical document was created using an electronic medical record system with [employer] system. Although this document has been carefully reviewed, there may still be some phonetic and typographical errors. These areas are purely typographical due to imperfections of the software programs, and do not reflect any compromise in the patient's medical care. Condition at Discharge: Fair Final Diagnosis/Problems List Myelodysplastic syndrome Secondary diagnosis: -hospital schizophrenia -chronic hypotension -chronic anemia Discharge Disposition: Home Discharge Instruct/Medications Diet: Regular Activity: No Restrictions, As Tolerated Follow Up/Referral: Follow up with the PCP in 1-2 weeks Medications: Continue all previous home medications 36 Discharge Statement: "Patient was advised to return to the ER or call 911 if any headaches, dizziness, shortness of breath, chest pain, abdominal pain, bleeding, fevers, or worsening of medical condition. Patient was counseled about treatment plan, medications, possible side effects, patientverbalized understanding. All questions were answered to the best of my ability. This discharge took greater then 30 minutes in planning, reviewing documentation, counseling the patient, and discussing with other team members." ASSESSMENT ASSESSMENT Assessment Myelodysplastic syndrome Date of Service: Jul 04, 2024 Billing Provider: YOANDY SALAS NP Common Visit Codes: 99402-IAI/OBS DISCH DAY >30min YOANDY SALAS NP Jul 04, 2024 14:09
[2024-07-04 16:35] VITALS: BP 99/60; PULSE 91; RESP 16; TEMP 98; O2SAT 96
== END 2024-07-04 16:40 | disposition home or self-care (01) | DRG 812 ==
LOC: ER 05:33 → OVERFLOW 08:47 → WEST WING 07-03 01:38
PROVIDERS: ADMIT Nurse Practitioner Acute Care; ATTEND Nurse Practitioner Acute Care
PROC: 30233N1 Transfusion of Nonautologous Red Blood Cells into Peripheral Vein, Percutaneous Approach (ICD-10-PCS; principal; 2024-07-02)
DX: D46.9 Myelodysplastic syndrome, unspecified (principal); F20.9 Schizophrenia, unspecified; E78.5 Hyperlipidemia, unspecified; J44.9 Chronic obstructive pulmonary disease, unspecified; F17.210 Nicotine dependence, cigarettes, uncomplicated; I95.89 Other hypotension; Z85.46 Personal history of malignant neoplasm of prostate; Z79.82 Long term (current) use of aspirin; Z79.899 Other long term (current) drug therapy
CPT/HCPCS: 36415; 71046; 80048; 80053; 83540; 83550; 85014; 85018; 85025; 86803; 86850; 86900; 86901; 86902; 86922; 87081; 87340; 99291; G0378

== ENCOUNTER 2024-07-09 05:43 | Emergency (ER) | payer OTHER, MEDICAID ==
[~2024-07-09] VITALS: Ht 180.3 cm; Wt 78.6 kg
[~2024-07-09 05:43] MED LIST changes: +FURO40TA4 PO
--- NOTE | 2024-07-09 06:20 | ED.PDOC ---
History of Present Illness HPI Comments 68-year-old male presents to the ED with chief complaint of generalized weakness. Patient states he has been feeling weak for the past few days due to his history of anemia, knows when he is experiencing those symptoms he might need blood transfusion. Patient states he last got transfused with blood on 07/02/24. PMHx anemia, COPD, cancer, schizophrenia. Denies shortness of breath, fever, chills, nausea, vomiting, diarrhea, abdominal pain, chest pain, dysuria. No other symptoms or modifying factors present at this time Chief Complaint: Abnormal LAB's Time Seen by MD: 06:05 Primary Care Provider: MADDIE Reviewed Notes: Medications, Allergies Allergies: Coded Allergies: NO KNOWN ALLERGIES (Unverified , 12/04/23) Home Meds Active Scripts Midodrine Hcl (Midodrine Hcl) 10 Mg Tab, 10 MG PO TID for 30 Days, #90 TAB 3 Refills Prov:YOANDY SALAS NP 06/06/24 Hydrocortone (Hydrocortisone 1%) 1 Applic Ap, 1 APPLIC TOP BID, #30 GRAMS Prov:JUAN ROGERS MD 02/08/24 Reported Medications Furosemide (Furosemide) 40 Mg Tab, 1 TAB PO DAILY 07/02/24 Hydrocodone-Acetaminophen (Hydrocodone Bitartrate/AC 10-325 mg) 1 Tab Tab, 1 TAB PO, TAB 06/18/24 Aspirin (Aspir-81) 81 Mg Tab, 1 TAB PO DAILY, #30 TAB 5 Refills 03/10/24 Risperidone (Risperidone) 2 Mg Tab, 2 MG PO BID, TAB 12/05/23 Nicotine (Nicoderm 21MG/24HR) 1 Patch Ph, 1 PATCH TOP DAILY, #28 PATCH 1 Refill 12/05/23 Mirtazapine (Mirtazapine Oral Disintegrating Tablet) 45 Mg Tab, 1 TAB PO QPM, #30 TAB 1 Refill 12/05/23 Melatonin (KP MELATONIN) 3 Mg Tab, 3 MG PO HS, TAB 12/05/23 Gabapentin (Gabapentin) 600 Mg Tab, 600 MG PO BID, TAB 12/05/23 Folic Acid (Folic Acid) 1 Mg Tab, 1 MG PO DAILY for 30 Days, MG 12/05/23 Fluticasone Furoate (Inhalatio (Arnuity Ellipta) 200 Mcg/Act Inh, 200 MCG IN, INHALER 12/05/23 Atorvastatin Calcium (ATORVASTATIN CALCIUM) 40 Mg Tab, 1 TAB PO DAILY, #30 TAB 5 Refills 12/05/23 Albuterol Sulfate (VENTOLIN MDI) 90 Mcg Ih, 90 MCG IN, INH 12/05/23 Information Source: Patient Mode of Arrival: Ambulatory Severity: Moderate Timing: Days Duration: Since onset Prehospital treatment: None Past Medical History PAST MEDICAL HISTORY: Anemia, Cancer, COPD, Schizophrenia Surgical History: Denies all surgeries Family History Family History: Reviewed,noncontributory to illness Social History Smoker: Cigarettes Alcohol: Denies ETOH Use Drugs: Denies Drug Use Lives In: Home Constitutional: reports: weakness; denies: chills, diaphoresis, fatigue, fever, malaise, sweats, others EENTM: denies: blurred vision, double vision, ear bleeding, ear discharge, ear drainage, ear pain, ear ringing, eye pain, eye redness, hearing loss, mouth pain, mouth swelling, nasal discharge, nose bleeding, nose congestion, nose pain, photophobia, tearing, throat pain, throat swelling, voice changes, others Respiratory: denies: cough, hemoptysis, orthopnea, SOB at rest, shortness of breath, SOB with excertion, stridor, wheezing, others Cardiovascular: denies: chest pain, dizzy spells, diaphoresis, Dyspnea on exertion, edema, irregular heart beat, left arm pain, lightheadedness, palp itations, PND, syncope, others Gastrointestinal: denies: abdomen distended, abdominal pain, blood streaked bowels, constipated, diarrhea, dysphagia, difficulty swallowing, hematemesis, melena, nausea, poor appetite, poor fluid intake, rectal bleeding, rectal pain, vomiting, others Genitourinary: denies: burning, dysuria, flank pain, frequency, hematuria, incontinence, penile discharge, penile sore, pain, testicle pain, testicle swelling, urgency, others Neurological: reports: weakness; denies: dizziness, fainting, headache, left sided numbness, left sided weakness, numbness, paresthesia, pre-existing deficit, right sided numbness, right sided weakness, seizure, speech problems, tingling, tremors, others Musculoskeletal: denies: back pain, gout, joint pain, joint swelling, muscle pain, muscle stiffness, neck pain, others Integumetry: denies: bruises, change in color, change in hair/nails, dryness, laceration, lesions, lumps, rash, wounds, others Allergic/Immunocompromised: denies: Difficulty Healing, Frequent Infections, Hives, Itching, others Hematologic/Lymphatic: denies: anemia, blood clots, easy bleeding, easy bruising, swollen glands, others Endocrine: denies: excessive hunger, excessive sweating, excessive thirst, excessive urination, flushing, intolerance to cold, intolerance to heat, unexplained weight gain, unexplained weight loss, others Psychiatric: denies: anxiety, bipolar disorder, depression, hopeless, panic disorder, schizophrenia, sleepless, suicidal, others All Other Systems: Reviewed and Negative Physical Exam General Appearance: Moderate Distress, Normal HEENT: Normal ENT Inspection, Pharynx Normal, TMs Normal Neck: Full Range of Motion, Non-Tender, Normal, Normal Inspection Respiratory: Chest Non-Tender, Lungs Clear, No Accessory Muscle Use, No Respiratory Distress, Normal Breath Sounds Cardiovascular: No Edema, No JVD, No Murmur, No Gallop, Normal Peripheral Pulses, Regular Rate/Rhythm Breast Exam: Deferred Gastrointestinal: No Organomegaly, Non Tender, No Pulsatile Mass, Normal Bowel Sounds, Soft Genitalia: Deferred Pelvic: Deferred Rectal: Deferred Extremities: No calf tenderness, Normal capillary refill, Normal inspection, Normal range of motion, Non-tender, No pedal edema Musculoskeletal : Apperance: Normal Neurologic: Alert, 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 Was a procedure done?: No Differential Dx Considerations may include: Anemia Electrolyte imbalance X-Ray, Labs, Meds, VS Vital Signs Date Time Temp Pulse Resp B/P (MAP) Pulse Ox O2 Delivery O2 Flow Rate FiO2 07/09/24 08:17 85 16 92 Room Air* 0 21 07/09/24 08:17 98.3 85 16 100/64 (76) 92 98.3 07/09/24 05:52 98.3 98 18 93/65 (74) 98 98.3 Lab Test 07/09/24 06:13 Range/Units White Blood Count 6.2 4.4-10.8 10^3/uL Red Blood Count 3.14 L 4.5-5.90 10^6/uL Hemoglobin 9.0 L 13.5-17.5 g/dL Hematocrit 26.5 L 41.0-53.0 % Mean Corpuscular Volume 84.4 80.0-100.0 fL Mean Corpuscular Hemoglobin 28.8 28.0-32.0 pg Mean Corpuscular Hemoglobin Concent 34.1 32.0-36.0 g/dL Red Cell Distribution Width 15.2 H 11.8-14.3 % Platelet Count 97 L 140-450 10^3/uL Mean Platelet Volume 9.3 6.9-10.8 fL Neutrophils (%) (Auto) 68.0 37.0-80.0 % Lymphocytes (%) (Auto) 12.3 10.0-50.0 % Monocytes (%) (Auto) 3.3 0.0-12.0 % Eosinophils (%) (Auto) 14.8 H 0.0-7.0 % Basophils (%) (Auto) 1.6 0.0-2.0 % Neutrophils # (Auto) 4.2 1.6-8.6 10 ^3/uL Lymphocytes # (Auto) 0.8 0.4-5.4 10 ^3/uL Monocytes # (Auto) 0.2 0-1.3 10 ^3/uL Eosinophils # (Auto) 0.9 H 0-0.8 10 ^3/uL Basophils # (Auto) 0.1 0-0.2 10 ^3/uL Nucleated Red Blood Cells 0.0 % Sodium Level 141 136-145 mmol/L Potassium Level 3.5 3.5-5.1 mmol/L Chloride Level 111 H 98-107 mmol/L Carbon Dioxide Level 26 20-31 mmol/L Anion Gap 4 L 5-15 Blood Urea Nitrogen 17 9-23 mg/dL Creatinine 0.70 0.700-1.30 mg/dL Glomerular Filtration Rate Calc 101 >90 mL/min BUN/Creatinine Ratio 24.3 H 10.0-20.0 Serum Glucose 128 H 74-106 mg/dL Calcium Level 9.4 8.7-10.4 mg/dL Patient alert. Complaining of weakness. Vitals stable. Answering questions. He was here recently for which he had blood transfusion. He does not require blood transfusions frequently. Reviewed his previous visit. Explained to the patient. Continue monitoring. [address] [address] Ph: [phone] DIAGNOSTIC IMAGING Diagnostic Imaging Report : [id number] Signed PATIENT: MEME ALONSO JRACCT: [id number] UNIT: [id number] : 1955 LOC: ER ROOM / BED: / AGE / SEX: 69 / M ADM STATUS: REG ER SERVICE 2 ORDERING PHYSICIAN: TEE ATKINS MD PROCEDURE(s): CXRP - CHEST PORTABLE REASON: sob ORDER NUMBER(s): [id number], ACCESSION NUMBER(s): [id number] CHEST RADIOGRAPH Indication: sob Technique: Single frontal view of the chest was obtained Comparison: XY CHEST PORTABLE on DOS: 06/18/24 FINDINGS: Lines and Tubes: None Lungs: Central predominant pulmonary opacities. Pleura: No effusion. No pneumothorax. Cardiomediastinal contours: Unremarkable Bones: No acute osseous abnormality. IMPRESSION: 1. Pulmonary edema. ATED BY: NOEMY HINES MD DICTATED DATE/TIME: 07/09/24740 SIGNED BY: NOEMY HINES MD SIGNED DATE/TIME: 07/09/24740 CC: Time of 1ST Reevaluation: 06:35 Reevaluation 1ST: Unchanged Patient Education/Counseling: Diagnosis, Treatment, Prognosis Family Education/Counseling: No Family Present Additional Information The following tests were ordered, and results were reviewed by me: CBC, BMP, XY CHEST I reviewed and agreed with the following test results read by other providers: JAYDA CHEST I discussed treatment and results with medical personnel and: Patient Comprehensive systems review obtained and negative except for what is stated in the HPI. Departure 1 Departure Time of Disposition: 06:28 Impression: Primary Impression: Symptomatic anemia Disposition: ADMITTED INPATIENT Admit to: Med Surg Condition: Guarded Critical Care Note Critical Care Time?: No Stability Stability form required: No Heart Score Heart Score: Heart Score Response (Comments) Value History N/A 0 EKG N/A 0 Age N/A 0 Risk Factors N/A 0 Troponin N/A 0 Total 0 I personally scribed for TEE ATKINS MD ([email or web address]) on 07/09/24 at 06:20. Electronically submitted by Capri Gibson ([email or web address]). I personally scribed for TEE ATKINS MD ([email or web address]) on 07/09/24 at 07:32. Electronically submitted by Capri Gibson ([email or web address]). I personally scribed for TEE ATKINS MD ([email or web address]) on 07/09/24 at 07:51. Electronically submitted by Capri Gibson ([email or web address]). TEE ATKINS MD Jul 09, 2024 06:20
[2024-07-09 06:35] LABS: Basophils # (auto) 0.1 10 ^3/uL (0-0.2); Basophils % (auto) 1.6 % (0.0-2.0); Eosinophils # (auto) 0.9 10 ^3/uL (0-0.8); Eosinophils % (auto) 14.8 % (0.0-7.0); Hematocrit 26.5 % (41.0-53.0); Lymphocytes # (auto) 0.8 10 ^3/uL (0.4-5.4); Lymphocytes % (auto) 12.3 % (10.0-50.0); Mean Corpuscular Hemoglobin 28.8 pg (28.0-32.0); Mean Corpuscular Hgb Conc. 34.1 g/dL (32.0-36.0); Mean Corpuscular Volume 84.4 fL (80.0-100.0); Monocytes # (auto) 0.2 10 ^3/uL (0-1.3); Monocytes % (auto) 3.3 % (0.0-12.0); Neutrophils # (auto) 4.2 10 ^3/uL (1.6-8.6); Platelet Count (auto) 97 10^3/uL (140-450); Red Blood Cells 3.14 10^6/uL (4.5-5.90); Red Cell Distribution Width 15.2 % (11.8-14.3); White Blood Cell 6.2 10^3/uL (4.4-10.8)
[2024-07-09 06:44] LABS: Sodium 141 mmol/L (136-145)
[2024-07-09 06:46] LABS: Anion Gap 4 (5-15); Calcium 9.4 mg/dL (8.7-10.4); Carbon Dioxide 26 mmol/L (20-31)
[2024-07-09 06:51] LABS: BUN/Creatinine Ratio 24.3 (10.0-20.0); Blood Urea Nitrogen 17 mg/dL (9-23)
[2024-07-09 07:04] LABS: Chloride 111 mmol/L (98-107); Glucose 128 mg/dL (74-106); Potassium 3.5 mmol/L (3.5-5.1)
--- NOTE | 2024-07-09 07:44 | DVH ---
CHEST RADIOGRAPH Indication: sob Technique: Single frontal view of the chest was obtained Comparison: XY CHEST PORTABLE on DOS: 06/18/24 FINDINGS: Lines and Tubes: None Lungs: Central predominant pulmonary opacities. Pleura: No effusion. No pneumothorax. Cardiomediastinal contours: Unremarkable Bones: No acute osseous abnormality. IMPRESSION: 1. Pulmonary edema.
[2024-07-09 08:17] VITALS: BP 100/64; PULSE 85; RESP 16; TEMP 98.3; O2SAT 92
== END 2024-07-09 08:20 | disposition left against medical advice (07) ==
LOC: ER 05:43
DX: D64.9 Anemia, unspecified (principal); F20.9 Schizophrenia, unspecified; J44.9 Chronic obstructive pulmonary disease, unspecified; F17.210 Nicotine dependence, cigarettes, uncomplicated; Z79.899 Other long term (current) drug therapy; Z79.82 Long term (current) use of aspirin
CPT/HCPCS: 36415; 71045; 80048; 85025

== ENCOUNTER 2024-07-16 05:46 | Emergency (ER) | payer OTHER, MEDICAID ==
[~2024-07-16] VITALS: Ht 180.3 cm; Wt 74.8 kg
--- NOTE | 2024-07-16 06:17 | ED.PDOC ---
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 Patient endorses on requiring another blood transfusion, due to history of similar symptoms whenever he is anemic in the past and, usually, requiring them every 2 weeks (last was on 07/03/24). Denies any chest pain, shortness of breath, fever, chills, or other associated symptoms or modifiers at this time. Chief Complaint: Abnormal LAB's Time Seen by MD: 06:00 Primary Care Provider: MADDIE Reviewed Notes: Nurses Notes, Medications, Allergies Allergies: Coded Allergies: NO KNOWN ALLERGIES (Unverified , 12/04/23) Home Meds Active Scripts Midodrine Hcl (Midodrine Hcl) 10 Mg Tab, 10 MG PO TID for 30 Days, #90 TAB 3 Refills Prov:YOANDY SALAS NP 06/06/24 Hydrocortone (Hydrocortisone 1%) 1 Applic Ap, 1 APPLIC TOP BID, #30 GRAMS Prov:JUAN ROGERS MD 02/08/24 Reported Medications Furosemide (Furosemide) 40 Mg Tab, 1 TAB PO DAILY 07/02/24 Hydrocodone-Acetaminophen (Hydrocodone Bitartrate/AC 10-325 mg) 1 Tab Tab, 1 TAB PO, TAB 06/18/24 Aspirin (Aspir-81) 81 Mg Tab, 1 TAB PO DAILY, #30 TAB 5 Refills 03/10/24 Risperidone (Risperidone) 2 Mg Tab, 2 MG PO BID, TAB 12/05/23 Nicotine (Nicoderm 21MG/24HR) 1 Patch Ph, 1 PATCH TOP DAILY, #28 PATCH 1 Refill 12/05/23 Mirtazapine (Mirtazapine Oral Disintegrating Tablet) 45 Mg Tab, 1 TAB PO QPM, #30 TAB 1 Refill 12/05/23 Melatonin (KP MELATONIN) 3 Mg Tab, 3 MG PO HS, TAB 12/05/23 Gabapentin (Gabapentin) 600 Mg Tab, 600 MG PO BID, TAB 12/05/23 Folic Acid (Folic Acid) 1 Mg Tab, 1 MG PO DAILY for 30 Days, MG 12/05/23 Fluticasone Furoate (Inhalatio (Arnuity Ellipta) 200 Mcg/Act Inh, 200 MCG IN, INHALER 12/05/23 Atorvastatin Calcium (ATORVASTATIN CALCIUM) 40 Mg Tab, 1 TAB PO DAILY, #30 TAB 5 Refills 12/05/23 Albuterol Sulfate (VENTOLIN MDI) 90 Mcg Ih, 90 MCG IN, INH 12/05/23 Information Source: Patient Mode of Arrival: Ambulatory Severity: Moderate Timing: Hours Duration: Since onset Prehospital treatment: None Past Medical History PAST MEDICAL HISTORY: Anemia, Cancer (prostate ), COPD, High Lipids, Hypotension, Schizophrenia, TIA (2x) Past Medical History (Other): MDS Surgical History: Tonsillectomy Surgical History (Other): right-leg surgery Family History Family History: Reviewed,noncontributory to illness Social History Smoker: Cigarettes, Less Than 1 Pack/Day Alcohol: Denies ETOH Use Drugs: Marijuana Lives In: Home Constitutional: reports: weakness; denies: chills, diaphoresis, fatigue, fever, malaise, sweats, others EENTM: denies: blurred vision, double vision, ear bleeding, ear discharge, ear drainage, ear pain, ear ringing, eye pain, eye redness, hearing loss, mouth pain, mouth swelling, nasal discharge, nose bleeding, nose congestion, nose pain, photophobia, tearing, throat pain, throat swelling, voice changes, others Respiratory: denies: cough, hemoptysis, orthopnea, SOB at rest, shortness of breath, SOB with excertion, stridor, wheezing, others Cardiovascular: denies: chest pain, dizzy spells, diaphoresis, Dyspnea on exertion, edema, irregular heart beat, left arm pain, lightheadedness, palpitations, PND, syncope, others Gastrointestinal: denies: abdomen distended, abdominal pain, blood streaked bowels, constipated, diarrhea, dysphagia, difficulty swallowing, hematemesis, melena, nausea, poor appetite, poor fluid intake, rectal bleeding, rectal pain, vomiting, others Genitourinary: denies: burning, dysuria, flank pain, frequency, hematuria, incontinence, penile discharge, penile sore, pain, testicle pain, testicle swelling, urgency, others Neurological: denies: dizziness, fainting, headache, left sided numbness, left sided weakness, numbness, paresthesia, pre-existing deficit, right sided numbness, right sided weakness, seizure, speech problems, tingling, tremors, weakness, others Musculoskeletal: denies: back pain, gout, joint pain, joint swelling, muscle pain, muscle stiffness, neck pain, others Integumetry: denies: bruises, change in color, change in hair/nails, dryness, laceration, lesions, lumps, rash, wounds, others Allergic/Immunocompromised: denies: Difficulty Healing, Frequent Infections, Hives, Itching, others Hematologic/Lymphatic: denies: anemia, blood clots, easy bleeding, easy bruising, swollen glands, others Endocrine: denies: excessive hunger, excessive sweating, excessive thirst, excessive urination, flushing, intolerance to cold, intolerance to heat, unexplained weight gain, unexplained weight loss, others Psychiatric: denies: anxiety, bipolar disorder, depression, hopeless, panic disorder, schizophrenia, sleepless, suicidal, others Physical Exam General Appearance: Mild Distress HEENT: Normal ENT Inspection, Pale Conjuntivae (L), Pale Conjuntivae (R), Pharynx Normal, TMs Normal Neck: Full Range of Motion, Non-Tender, Normal, Normal Inspection Respiratory: Chest Non-Tender, Lungs Clear, No Accessory Muscle Use, No Respiratory Distress, Normal Breath Sounds Cardiovascular: No Edema, No JVD, No Murmur, No Gallop, Normal Peripheral Pulses, Regular Rate/Rhythm Breast Exam: Deferred Gastrointestinal: No Organomegaly, Non Tender, No Pulsatile Mass, Normal Bowel Sounds, Soft Genitalia: Deferred Pelvic: Deferred Rectal: Deferred Extremities: No calf tenderness, Normal capillary refill, Normal inspection, Normal range of motion, Non-tender, No pedal edema Musculoskeletal : Apperance: Normal Neurologic: Alert, 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 Was a procedure done?: No Differential Dx Considerations may include: Anemia X-Ray, Labs, Meds, VS Vital Signs Date Time Temp Pulse Resp B/P (MAP) Pulse Ox O2 Delivery O2 Flow Rate FiO2 07/16/24 12:47 70 22 95 Room Air* 0 21 07/16/24 12:45 99.0 83 22 118/58 99.0 07/16/24 12:30 99.1 91 22 103/69 99.1 07/16/24 12:00 89 25 103/59 (74) 97 07/16/24 05:54 98.9 115 18 119/72 (88) 98 98.9 Lab Test 07/16/24 06:00 Range/Units Hemoglobin 8.0 L 13.5-17.5 g/dL Hematocrit 23.8 #L 41.0-53.0 % The patient's hemoglobin came back at 8.0 and hematocrit of 23.8 The patient was being transfused with 1 unit of packed red blood cell secondary to the generalized weakness Time of 1ST Reevaluation: 06:30 Reevaluation 1ST: Unchanged Patient Education/Counseling: Diagnosis, Treatment, Prognosis, Need For Follow Up Family Education/Counseling: Diagnosis, Treatment, Prognosis, Need For Follow Up Departure 1 Departure Time of Disposition: 14:46 Impression: Primary Impression: Symptomatic anemia Additional Impression: Severe anemia Disposition: 01 HOME / SELF CARE / HOMELESS Condition: Fair Discharged With: Self, Relative Critical Care Note Critical Care Time?: No Stability Stability form required: No Heart Score Heart Score: Heart Score Response (Comments) Value History N/A 0 EKG N/A 0 Age N/A 0 Risk Factors N/A 0 Troponin N/A 0 Total 0 I personally scribed for LARISSA HART MD ([email or web address]) on 07/16/24 at 06:17. Electronically submitted by Leo Elizabeth ([email or web address]). LARISSA HART MD Jul 16, 2024 06:17
[2024-07-16 06:26] LABS: Hematocrit 23.8 % (41.0-53.0)
[2024-07-16 12:30] VITALS: BP 103/69; PULSE 91; RESP 22; TEMP 99.1
[2024-07-16 12:45] VITALS: BP 118/58; PULSE 83; RESP 22; TEMP 99
[2024-07-16 12:47] VITALS: PULSE 70; RESP 22; O2SAT 95
[2024-07-16 15:00] VITALS: BP 100/57; PULSE 94; RESP 20; TEMP 98.9; O2SAT 97
[2024-07-16 15:05] VITALS: BP 100/59; PULSE 95; RESP 20; TEMP 98.7
== END 2024-07-16 15:49 | disposition home or self-care (01) ==
LOC: ER 05:46
DX: D64.9 Anemia, unspecified (principal); C61 Malignant neoplasm of prostate; E78.5 Hyperlipidemia, unspecified; F20.9 Schizophrenia, unspecified; J44.9 Chronic obstructive pulmonary disease, unspecified; F17.210 Nicotine dependence, cigarettes, uncomplicated; F12.90 Cannabis use, unspecified, uncomplicated; Z79.82 Long term (current) use of aspirin; Z79.899 Other long term (current) drug therapy; Z90.89 Acquired absence of other organs
CPT/HCPCS: 36415; 36430; 85014; 85018; 86850; 86870; 86900; 86901; 99285; P9016; 86922

== ENCOUNTER 2024-07-23 05:41 | Inpatient (IN) | payer OTHER, MEDICAID ==
[2024-07-23] VITALS (7 sets, daily range): BP systolic 81–91; BP diastolic 47–59; PULSE 86–101; RESP 15–20; TEMP 98.4–99.7; O2SAT 92
[~2024-07-23] VITALS: Ht 180.3 cm; Wt 79.5 kg
--- NOTE | 2024-07-23 06:52 | ED.PDOC ---
History of Present Illness HPI Comments 69 y/o M, with PMHx of anemia, cancer, COPD, HLD, hypotension, and TIA presents to the ED for CC of abnormal labs. Patient reports, he is here to receive weekly blood transfusion; Hbg 7.2. Last blood transfusion on 07/16/24. No other symptoms or modifying factors present at this time. Chief Complaint: Abnormal LAB's Time Seen by MD: 06:50 Primary Care Provider: MADDIE Reviewed Notes: Nurses Notes, Medications, Allergies Allergies: Coded Allergies: NO KNOWN ALLERGIES (Unverified , 12/04/23) Home Meds Active Scripts Midodrine Hcl (Midodrine Hcl) 10 Mg Tab, 10 MG PO TID for 30 Days, #90 TAB 3 Refills Prov:YOANDY SALAS NP 06/06/24 Hydrocortone (Hydrocortisone 1%) 1 Applic Ap, 1 APPLIC TOP BID, #30 GRAMS Prov:JUAN ROGERS MD 02/08/24 Reported Medications Furosemide (Furosemide) 40 Mg Tab, 1 TAB PO DAILY 07/02/24 Hydrocodone-Acetaminophen (Hydrocodone Bitartrate/AC 10-325 mg) 1 Tab Tab, 1 TAB PO, TAB 06/18/24 Aspirin (Aspir-81) 81 Mg Tab, 1 TAB PO DAILY, #30 TAB 5 Refills 03/10/24 Risperidone (Risperidone) 2 Mg Tab, 2 MG PO BID, TAB 12/05/23 Nicotine (Nicoderm 21MG/24HR) 1 Patch Ph, 1 PATCH TOP DAILY, #28 PATCH 1 Refill 12/05/23 Mirtazapine (Mirtazapine Oral Disintegrating Tablet) 45 Mg Tab, 1 TAB PO QPM, #30 TAB 1 Refill 12/05/23 Melatonin (KP MELATONIN) 3 Mg Tab, 3 MG PO HS, TAB 12/05/23 Gabapentin (Gabapentin) 600 Mg Tab, 600 MG PO BID, TAB 12/05/23 Folic Acid (Folic Acid) 1 Mg Tab, 1 MG PO DAILY for 30 Days, MG 12/05/23 Fluticasone Furoate (Inhalatio (Arnuity Ellipta) 200 Mcg/Act Inh, 200 MCG IN, INHALER 12/05/23 Atorvastatin Calcium (ATORVASTATIN CALCIUM) 40 Mg Tab, 1 TAB PO DAILY, #30 TAB 5 Refills 12/05/23 Albuterol Sulfate (VENTOLIN MDI) 90 Mcg Ih, 90 MCG IN, INH 12/05/23 Information Source: Patient Mode of Arrival: Ambulatory Severity: Moderate Timing: Hours Duration: Since onset Prehospital treatment: None Past Medical History PAST MEDICAL HISTORY: Anemia, Cancer, COPD, High Lipids, Hypotension, Schizophrenia, TIA Surgical History: Tonsillectomy Family History Family History: Reviewed,noncontributory to illness Social History Smoker: Cigarettes, Less Than 1 Pack/Day Alcohol: Denies ETOH Use Drugs: Marijuana Lives In: Home Constitutional: denies: chills, diaphoresis, fatigue, fever, malaise, sweats, weakness, others EENTM: denies: blurred vision, double vision, ear bleeding, ear discharge, ear drainage, ear pain, ear ringing, eye pain, eye redness, hearing loss, mouth pain, mouth swelling, nasal discharge, nose bleeding, nose congestion, nose pain, photophobia, tearing, throat pain, throat swelling, voice changes, others Respiratory: denies: cough, hemoptysis, orthopnea, SOB at rest, shortness of breath, SOB with excertion, stridor, wheezing, others Cardiovascular: denies: chest pain, dizzy spells, diaphoresis, Dyspnea on exertion, edema, irregular heart beat, left arm pain, lightheadedness, palpitations, PND, syncope, others Gastrointestinal: denies: abdomen distended, abdominal pain, blood streaked bowels, constipated, diarrhea, dysphagia, difficulty swallowing, hematemesis, melena, nausea, poor appetite, poor fluid intake, rectal bleeding, rectal pain, vomiting, others Genitourinary: denies: burning, dysuria, flank pain, frequency, hematuria, incontinence, penile discharge, penile sore, pain, testicle pain, testicle swelling, urgency, others Neurological: denies: dizziness, fainting, headache, left sided numbness, left sided weakness, numbness, paresthesia, pre-existing deficit, right sided numbness, right sided weakness, seizure, speech problems, tingling, tremors, weakness, others Musculoskeletal: denies: back pain, gout, joint pain, joint swelling, muscle pain, muscle stiffness, neck pain, others Integumetry: denies: bruises, change in color, change in hair/nails, dryness, laceration, lesions, lumps, rash, wounds, others Allergic/Immunocompromised: denies: Difficulty Healing, Frequent Infections, Hives, Itching, others Hematologic/Lymphatic: denies: anemia, blood clots, easy bleeding, easy bruising, swollen glands, others Endocrine: denies: excessive hunger, excessive sweating, excessive thirst, excessive urination, flushing, intolerance to cold, intolerance to heat, unexplained weight gain, unexplained weight loss, others Psychiatric: denies: anxiety, bipolar disorder, depression, hopeless, panic disorder, schizophrenia, sleepless, suicidal, others All Other Systems: Reviewed and Negative Physical Exam General Appearance: No Apparent Distress HEENT: Scleral Icterus (L) Neck: Normal Inspection Respiratory: No Respiratory Distress Cardiovascular: No Edema, Tachycardia Breast Exam: Deferred Gastrointestinal: Non Tender Genitalia: Deferred Pelvic: Deferred Rectal: Deferred Extremities: Normal range of motion, Non-tender Neurologic: No Motor Deficits Cerebellar Function: NOT DONE Reflexes: NOT DONE Skin: Pallor Lymphatic: NOT DONE Was a procedure done? Was a procedure done?: No Differential Dx Considerations may include: ANEMIA X-Ray, Labs, Meds, VS Vital Signs Date Time Temp Pulse Resp B/P (MAP) Pulse Ox O2 Delivery O2 Flow Rate FiO2 07/23/24 09:30 98.1 96 16 119/69 (86) 98 98.1 07/23/24 08:10 Room Air* 0 21 07/23/24 08:09 98.4 65 17 96/66 (76) 95 98.4 07/23/24 05:50 98.3 121 12 170/71 (104) 100 98.3 Lab Test 07/23/24 07:42 Range/Units White Blood Count 7.0 4.4-10.8 10^3/uL Red Blood Count 2.52 L 4.5-5.90 10^6/uL Hemoglobin 7.2 L 13.5-17.5 g/dL Hematocrit 20.9 L 41.0-53.0 % Mean Corpuscular Volume 83.0 80.0-100.0 fL Mean Corpuscular Hemoglobin 28.6 28.0-32.0 pg Mean Corpuscular Hemoglobin Concent 34.4 32.0-36.0 g/dL Red Cell Distribution Width 14.7 H 11.8-14.3 % Platelet Count 82 L 140-450 10^3/uL Mean Platelet Volume 9.9 6.9-10.8 fL Neutrophils (%) (Auto) 76.9 37.0-80.0 % Lymphocytes (%) (Auto) 12.6 10.0-50.0 % Monocytes (%) (Auto) 3.5 0.0-12.0 % Eosinophils (%) (Auto) 5.4 0.0-7.0 % Basophils (%) (Auto) 1.6 0.0-2.0 % Neutrophils # (Auto) 5.4 1.6-8.6 10 ^3/uL Lymphocytes # (Auto) 0.9 0.4-5.4 10 ^3/uL Monocytes # (Auto) 0.2 0-1.3 10 ^3/uL Eosinophils # (Auto) 0.4 0-0.8 10 ^3/uL Basophils # (Auto) 0.1 0-0.2 10 ^3/uL Nucleated Red Blood Cells 0.0 % Sodium Level 139 136-145 mmol/L Potassium Level 3.1 L 3.5-5.1 mmol/L Chloride Level 106 98-107 mmol/L Carbon Dioxide Level 26 20-31 mmol/L Anion Gap 7 5-15 Blood Urea Nitrogen 13 9-23 mg/dL Creatinine 0.81 0.700-1.30 mg/dL Glomerular Filtration Rate Calc 97 >90 mL/min BUN/Creatinine Ratio 16.0 10.0-20.0 Serum Glucose 130 H 74-106 mg/dL Calcium Level 9.6 8.7-10.4 mg/dL Time of 1ST Reevaluation: 07:20 Reevaluation 1ST: Unchanged Patient Education/Counseling: Diagnosis, Treatment Family Education/Counseling: No Family Present Departure 1 Departure Time of Disposition: 16:05 (Patient presents with symptomatic anemia. We will admit patient for blood transfusion and further workup) Impression: Primary Impression: Symptomatic anemia Disposition: ADMITTED INPATIENT Admit to: Med Surg Condition: Serious Critical Care Note Critical Care Time?: Yes Critical care comment: Symptomatic anemia Authorized and Performed by: Rayray Pappas MD Total critical care time: Approximately 34 minutes Due to a high probability of clinically significant, life threatening deterioration, the patient required my highest level of preparedness to intervene emergently and I personally spent this critical care time directly and personally managing the patient. This critical care time included obtaining a history; examining the patient; pulse oximetry; ordering and review of studies; arranging urgent treatment with development of a management plan; evaluation of patient's response to treatment; frequent reassessment; and, discussions with other providers. This critical care time was performed to assess and manage the high probability of imminent, life-threatening deterioration that could result in multi-organ failure. It was exclusive of separately billable procedures and [facility]. Please see my other sections and the rest of the note for further information on patient assessment and treatment. Stability Stability form required: No Heart Score Heart Score: Heart Score Response (Comments) Value History N/A 0 EKG N/A 0 Age N/A 0 Risk Factors N/A 0 Troponin N/A 0 Total 0 I personally scribed for RAYRAY PAPPAS MD ([email or web address]) on 07/23/24 at 06:52. Electronically submitted by Maria Elena Barton ([employer]). I personally scribed for RAYRAY PAPPAS MD (DVLARCO) on 07/23/24 at 06:56. Electronically submitted by Maria Elena Barton ([employer]). I personally scribed for RAYRAY PAPPAS MD (DVLARCO) on 07/23/24 at 08:38. Electronically submitted by Maria Elena Barton ([employer]). RAYRAY PAPPAS MD July 23, 2024 06:52
[2024-07-23 07:59] LABS: Basophils # (auto) 0.1 10 ^3/uL (0-0.2); Eosinophils # (auto) 0.4 10 ^3/uL (0-0.8); Hemoglobin 7.2 g/dL (13.5-17.5); Lymphocytes # (auto) 0.9 10 ^3/uL (0.4-5.4); Monocytes # (auto) 0.2 10 ^3/uL (0-1.3); Red Cell Distribution Width 14.7 % (11.8-14.3)
[2024-07-23 08:00] LABS: Basophils % (auto) 1.6 % (0.0-2.0); Eosinophils % (auto) 5.4 % (0.0-7.0); Hematocrit 20.9 % (41.0-53.0); Lymphocytes % (auto) 12.6 % (10.0-50.0); Mean Corpuscular Hemoglobin 28.6 pg (28.0-32.0); Mean Corpuscular Hgb Conc. 34.4 g/dL (32.0-36.0); Monocytes % (auto) 3.5 % (0.0-12.0); Neutrophils # (auto) 5.4 10 ^3/uL (1.6-8.6); Neutrophils % (auto) 76.9 % (37.0-80.0); Platelet Count (auto) 82 10^3/uL (140-450); Red Blood Cells 2.52 10^6/uL (4.5-5.90)
[2024-07-23 08:12] LABS: Chloride 106 mmol/L (98-107); Sodium 139 mmol/L (136-145)
[2024-07-23 08:13] LABS: Anion Gap 7 (5-15); Calcium 9.6 mg/dL (8.7-10.4); Carbon Dioxide 26 mmol/L (20-31)
[2024-07-23 08:18] LABS: Blood Urea Nitrogen 13 mg/dL (9-23)
[2024-07-23 08:19] LABS: Glucose 130 mg/dL (74-106); Potassium 3.1 mmol/L (3.5-5.1)
--- NOTE | 2024-07-23 10:43 | DVHHP2 ---
History of Present Illness Reason for Visit: Generalized weakness History of Present Illness Eugene Alejandro is a 68-year-old male, with past medical history of prostate cancer, MDS, schizophrenia, and COPD, who came in for generalized weakness. Patient is seen frequently with generalized weakness requiring blood transfusion due to myelodysplastic syndrome. Patient states he has been experiencing weakness and dizziness. Pulmonary: COPD Heme/Onc: Cancer (Prostate, MDS) Psych: Schizophrenia Past Surgical History: Other (Right leg skin graft), Tonsillectomy Smoke: <1 pack per day ALCOHOL: none Drugs: None Lives: with Family Domestic Violence: Neg Review of Systems Constitutional: Yes: Weakness, Malaise, Other (Dizzy); No: Fever, Chills, Sweats Eyes: No: Pain, Vision change, Conjunctivae inflammation, Eyelid inflammation, Other, Redness ENT: No: Ear pain, Ear discharge, Nose pain, Nose discharge, Nose congestion, Mouth pain, Mouth swelling, Throat pain, Throat swelling, Other Respiratory: No: Cough, Dry, Shortness of breath, SOB with excertion, Wheezing, Hemoptysis, Pleuritic Pain, Sputum, Wheezing, Other Cardiovascular: No: Chest Pain, Palpitations, Orthopnea, Paroxysmal Noc. Dyspnea, Edema, Lt Headedness, Other Genitourinary: No Dysuria, No Frequency, No Incontinence, No Hematuria, No Retention, No Other Musculoskeletal: No: other, neck pain, shoulder pain, arm pain, back pain, hand pain, leg pain, foot pain Skin: No: Rash, Lesions, Jaundice, Bruising, Other Neurological: Weakness; No: Numbness, Incoordination, Change in speech, Confusion, Seizures, Other Allergies: Coded Allergies: NO KNOWN ALLERGIES (Unverified , 12/04/23) Exam Vital Signs Vital Signs Date Time Temp Pulse Resp B/P (MAP) Pulse Ox O2 Delivery O2 Flow Rate FiO2 07/23/24 09:30 98.1 96 16 119/69 (86) 98 98.1 07/23/24 08:10 Room Air* 0 21 General Appearance: Alert, Oriented X3, Cooperative, mild distress HEENT: Atraumatic, PERRLA Respiratory: Clear to auscultation, Normal air movement Cardiovascular: Regular rate, Normal S1, Normal S2, No murmurs Abdominal: Normal bowel sounds, Soft, No tenderness, No hepatospenomegaly Extremities: No clubbing, No cyanosis, Normal pulses, Other (right leg edema, dressing in place) Skin: No rashes, No breakdown, No significant lesion Neuro: Normal gait, Strength at 5/5 X4 ext Psych/Mental Status: Mental status NL, Mood NL Labs/Xrays Labs Test 07/23/24 07:42 Range/Units White Blood Count 7.0 4.4-10.8 10^3/uL Red Blood Count 2.52 L 4.5-5.90 10^6/uL Hemoglobin 7.2 L 13.5-17.5 g/dL Hematocrit 20.9 L 41.0-53.0 % Mean Corpuscular Volume 83.0 80.0-100.0 fL Mean Corpuscular Hemoglobin 28.6 28.0-32.0 pg Mean Corpuscular Hemoglobin Concent 34.4 32.0-36.0 g/dL Red Cell Distribution Width 14.7 H 11.8-14.3 % Platelet Count 82 L 140-450 10^3/uL Mean Platelet Volume 9.9 6.9-10.8 fL Neutrophils (%) (Auto) 76.9 37.0-80.0 % Lymphocytes (%) (Auto) 12.6 10.0-50.0 % Monocytes (%) (Auto) 3.5 0.0-12.0 % Eosinophils (%) (Auto) 5.4 0.0-7.0 % Basophils (%) (Auto) 1.6 0.0-2.0 % Neutrophils # (Auto) 5.4 1.6-8.6 10 ^3/uL Lymphocytes # (Auto) 0.9 0.4-5.4 10 ^3/uL Monocytes # (Auto) 0.2 0-1.3 10 ^3/uL Eosinophils # (Auto) 0.4 0-0.8 10 ^3/uL Basophils # (Auto) 0.1 0-0.2 10 ^3/uL Nucleated Red Blood Cells 0.0 % Sodium Level 139 136-145 mmol/L Potassium Level 3.1 L 3.5-5.1 mmol/L Chloride Level 106 98-107 mmol/L Carbon Dioxide Level 26 20-31 mmol/L Anion Gap 7 5-15 Blood Urea Nitrogen 13 9-23 mg/dL Creatinine 0.81 0.700-1.30 mg/dL Glomerular Filtration Rate Calc 97 >90 mL/min BUN/Creatinine Ratio 16.0 10.0-20.0 Serum Glucose 130 H 74-106 mg/dL Calcium Level 9.6 8.7-10.4 mg/dL Assessment/Plan Assessment/Plan Assessment: Symptomatic anemia, MDS, Hyperlipidemia, COPD, Schizophrenia, Plan: Admit to Med-Surg, Transfuse 2 unit PRBC, Manage/Monitor Hgb closely, Supplemental oxygen as needed, Home medications reconciled, Plan discussed with: Patient My Orders Orders - ANNIKA SYED Procedure Category Date Status Time Admit ADMIT 07/23/24 Verified 10:32 Code Status CODE 07/23/24 Verified 10:32 2 Gm Sodium Diet DIET 07/23/24 Verified Lunch Hydrocodone-Acet PHA 07/23/24 Verified 5/325mg Tab (Fraser 10:45 Ondansetron Hcl PHA 07/23/24 Verified (Zofran) 10:45 Docusate Sodium PHA 07/23/24 Verified Capsule (Colace 10:45 Complete Blood Count LAB 07/24/24 Verified 04:00 Comprehensive LAB 07/24/24 Verified Metabolic Panel 04:00 Condition: Serious KATIA 07/23/24 Verified 10:32 Acetaminophen Tablet PHA 07/23/24 Verified (Tylenol Tablet) 10:45 Date of Service: July 23, 2024 Billing Provider: ANNIKA SYED Common Visit Codes: [id number] INP/OBS CARE (MOD) ANNIKA SYED July 23, 2024 10:43
[2024-07-23] MEDS ORDERED: DOCUSATE SOD 100 MG CAP PO PRN (10:45)
[2024-07-23] MEDS ORDERED: ONDANSETRON HCL 4 MG/2 ML VIAL IV PRN (10:45)
[2024-07-23] MEDS ORDERED: HYDROcodone-ACET 5/325MG TAB PO PRN (10:45)
[2024-07-23] MEDS ORDERED: ACETAMINOPHEN 325 MG TAB PO PRN (10:45)
[2024-07-23] MEDS: MIDODRINE HCL 10 MG TAB PO SCH (19:51)
[2024-07-23] MEDS: ATORVASTATIN 20 MG TAB PO SCH (22:00)
[2024-07-23] MEDS: Melatonin 3 MG TABLET PO SCH (22:00)
[2024-07-23] MEDS ORDERED: PATIENTS OWN MEDICATION (Gabapentin 600 MG) PO SCH (22:00)
[2024-07-23] MEDS: risperiDONE 1 MG TAB PO SCH (22:00)
[2024-07-24 00:23] VITALS: PULSE 96; RESP 14; O2SAT 96
[2024-07-24 00:25] VITALS: BP 85/43; PULSE 83; RESP 14; TEMP 98.8
[2024-07-24 06:13] LABS: Basophils # (auto) 0.1 10 ^3/uL (0-0.2); Basophils % (auto) 1.6 % (0.0-2.0); Eosinophils # (auto) 0.6 10 ^3/uL (0-0.8); Eosinophils % (auto) 8.7 % (0.0-7.0); Hematocrit 23.5 % (41.0-53.0); Hemoglobin 8.1 g/dL (13.5-17.5); Lymphocytes # (auto) 0.9 10 ^3/uL (0.4-5.4); Lymphocytes % (auto) 12.9 % (10.0-50.0); Mean Corpuscular Hemoglobin 29.2 pg (28.0-32.0); Mean Corpuscular Hgb Conc. 34.5 g/dL (32.0-36.0); Mean Corpuscular Volume 84.6 fL (80.0-100.0); Monocytes # (auto) 0.2 10 ^3/uL (0-1.3); Monocytes % (auto) 3.6 % (0.0-12.0); Neutrophils # (auto) 4.9 10 ^3/uL (1.6-8.6); Neutrophils % (auto) 73.2 % (37.0-80.0); Nucleated Red Blood Cells % 0.1 %; Platelet Count (auto) 66 10^3/uL (140-450); Red Blood Cells 2.78 10^6/uL (4.5-5.90); Red Cell Distribution Width 15.1 % (11.8-14.3); White Blood Cell 6.6 10^3/uL (4.4-10.8)
[2024-07-24] MEDS: FUROSEMIDE 40 MG TAB PO SCH (06:13)
[2024-07-24 06:31] LABS: Albumin 3.3 g/dL (3.2-4.8); Alkaline Phosphatase 73 U/L (46-116); Anion Gap 5 (5-15); Aspartate Aminotransferase 24 U/L (13-40); BUN/Creatinine Ratio 21.9 (10.0-20.0); Blood Urea Nitrogen 14 mg/dL (9-23); Carbon Dioxide 24 mmol/L (20-31); Glucose 102 mg/dL (74-106); Sodium 137 mmol/L (136-145); Total Protein 6.4 g/dL (5.7-8.2)
[2024-07-24 06:35] LABS: Alanine Aminotransferase 53 U/L (7-40); Calcium 8.4 mg/dL (8.7-10.4); Chloride 108 mmol/L (98-107); Potassium 3.4 mmol/L (3.5-5.1)
[2024-07-24] MEDS: NICOTINE 21MG/24 HR TOPICAL PATCH TD SCH (09:32)
[2024-07-24] MEDS: FOLIC ACID 1 MG TAB PO SCH (09:33)
[2024-07-24] MEDS: ASPirin-EC 81 mg tab PO SCH (09:33)
[2024-07-24 10:08] VITALS: BP 88/58; PULSE 93; RESP 16; TEMP 98.8; O2SAT 100
[2024-07-24] MEDS: POTASSIUM CHL 20 Meq TABLET PO ONE (11:05)
--- NOTE | 2024-07-24 13:03 | DVHDS2 ---
Discharge Summary Date of Admission July 23, 2024 at 10:32 Date of Discharge: July 24, 2024 Labs/Diagnostic Data: Laboratory Results Test 07/24/24 05:45 White Blood Count 6.6 10^3/uL (4.4-10.8) Red Blood Count 2.78 10^6/uL (4.5-5.90) Hemoglobin 8.1 g/dL (13.5-17.5) Hematocrit 23.5 % (41.0-53.0) Mean Corpuscular Volume 84.6 fL (80.0-100.0) Mean Corpuscular Hemoglobin 29.2 pg (28.0-32.0) Mean Corpuscular Hemoglobin Concent 34.5 g/dL (32.0-36.0) Red Cell Distribution Width 15.1 % (11.8-14.3) Platelet Count 66 10^3/uL (140-450) Mean Platelet Volume 10.1 fL (6.9-10.8) Neutrophils (%) (Auto) 73.2 % (37.0-80.0) Lymphocytes (%) (Auto) 12.9 % (10.0-50.0) Monocytes (%) (Auto) 3.6 % (0.0-12.0) Eosinophils (%) (Auto) 8.7 % (0.0-7.0) Basophils (%) (Auto) 1.6 % (0.0-2.0) Neutrophils # (Auto) 4.9 10 ^3/uL (1.6-8.6) Lymphocytes # (Auto) 0.9 10 ^3/uL (0.4-5.4) Monocytes # (Auto) 0.2 10 ^3/uL (0-1.3) Eosinophils # (Auto) 0.6 10 ^3/uL (0-0.8) Basophils # (Auto) 0.1 10 ^3/uL (0-0.2) Nucleated Red Blood Cells 0.1 % Sodium Level 137 mmol/L (136-145) Potassium Level 3.4 mmol/L (3.5-5.1) Chloride Level 108 mmol/L (98-107) Carbon Dioxide Level 24 mmol/L (20-31) Anion Gap 5 (5-15) Blood Urea Nitrogen 14 mg/dL (9-23) Creatinine 0.64 mg/dL (0.700-1.30) Glomerular Filtration Rate Calc 104 mL/min (>90) BUN/Creatinine Ratio 21.9 (10.0-20.0) Serum Glucose 102 mg/dL (74-106) Calcium Level 8.4 mg/dL (8.7-10.4) Total Bilirubin 1.0 mg/dL (0.2-1.0) Aspartate Amino Transferase (AST) 24 U/L (13-40) Alanine Aminotransferase (ALT) 53 U/L (7-40) Alkaline Phosphatase 73 U/L (46-116) Total Protein 6.4 g/dL (5.7-8.2) Albumin 3.3 g/dL (3.2-4.8) Other Laboratory Tests 07/24/24 05:45 Brief Hx & Hospital Course: 69-year-old male with a history of myelodysplastic syndrome and chronic anemia who comes frequently for blood transfusions came to the hospital due to anemia and required blood transfusion he was given 2 units which elevated his hemoglobin from 7.2-8.1 today. His platelets are low at 82 and 66 today however he is asymptomatic Potassium was low at 3.1 yesterday and 3.4 today, it was replaced The patient is stable for discharge and follow up as an outpatient Final diagnoses: Myelodysplastic syndrome Chronic anemia status post blood transfusion Thrombocytopenia Hypokalemia COPD Schizophrenia History of prostate cancer Stable for discharge Resume the home medications Condition at Discharge: Stable Final Diagnosis/Problems List ACUTE ON CHRONIC ANEMIA MDS Discharge Disposition: Home SNF Discharge Will this Physician continue t: No Discharge Instruct/Medications Diet: Regular Activity: No Restrictions, As Tolerated Follow Up/Referral: Dr. Hiro LU Medications: Same home meds Discharge Statement: "Patient was advised to return to the ER or call 911 if any headaches, dizziness, shortness of breath, chest pain, abdominal pain, bleeding, fevers, or worsening of medical condition. Patient was counseled about treatment plan, medications, possible side effects, patientverbalized understanding. All questions were answered to the best of my ability. This discharge took greater then 30 minutes in planning, reviewing documentation, counseling the patient, and discussing with other team members." ASSESSMENT ASSESSMENT Assessment ACUTE ON CHRONIC ANEMIA MDS Date of Service: July 24, 2024 Billing Provider: ОЛЬГА CABRERA MD Common Visit Codes: 75901-JZQ/OBS DISCH DAY >30min ОЛЬГА CABRERA MD July 24, 2024 13:03
[2024-07-24] MEDS ORDERED: MIRTAZAPINE 30 MG TAB PO SCH (18:00)
== END 2024-07-24 11:35 | disposition home or self-care (01) | DRG 812 ==
LOC: ER 05:41 → OVERFLOW 10:32
PROVIDERS: ADMIT Internal Medicine Geriatric Medicine; ATTEND Internal Medicine Geriatric Medicine
PROC: 30233N1 Transfusion of Nonautologous Red Blood Cells into Peripheral Vein, Percutaneous Approach (ICD-10-PCS; principal; 2024-07-23)
DX: D46.9 Myelodysplastic syndrome, unspecified (principal); F20.9 Schizophrenia, unspecified; J44.9 Chronic obstructive pulmonary disease, unspecified; E78.5 Hyperlipidemia, unspecified; E87.6 Hypokalemia; F17.210 Nicotine dependence, cigarettes, uncomplicated; D69.6 Thrombocytopenia, unspecified; Z79.891 Long term (current) use of opiate analgesic; Z79.82 Long term (current) use of aspirin; Z79.1 Long term (current) use of non-steroidal anti-inflammatories (NSAID); Z85.46 Personal history of malignant neoplasm of prostate; Z86.73 Personal history of transient ischemic attack (TIA), and cerebral infarction without residual deficits; D63.8 Anemia in other chronic diseases classified elsewhere
CPT/HCPCS: 36415; 80048; 80053; 85025; 86850; 86870; 86900; 86901; 86902; 86922; G0378

== ENCOUNTER 2024-07-30 05:45 | Inpatient (IN) | payer OTHER, MEDICAID ==
[2024-07-30] VITALS (11 sets, daily range): BP systolic 103–144; BP diastolic 58–84; PULSE 77–101; RESP 15–20; TEMP 98.3–99.7; O2SAT 95–98
[~2024-07-30] VITALS: Ht 180.3 cm; Wt 75.3 kg
--- NOTE | 2024-07-30 07:02 | ED.PDOC ---
History of Present Illness HPI Comments 69-year-old male with PMHx Anemia presents with a chief complaint of weakness and fatigue x 1 week. Patient states that due to his anemia, he gets weekly blood checks to make sure his HGB levels are optimal. Patient mentions that recently he has been feeling increasingly weak and "I just don't feel right". P atient mentions that he was last transfused last week with 2 units of blood. Patient was informed during initial assessment that due to his history and current presentation, he would be staying with us in the hospital. Chief Complaint: Abnormal LAB's Time Seen by MD: 06:30 Primary Care Provider: MADDIE Reviewed Notes: Medications, Allergies Allergies: Coded Allergies: NO KNOWN ALLERGIES (Unverified , 12/04/23) Home Meds Active Scripts Midodrine Hcl (Midodrine Hcl) 10 Mg Tab, 10 MG PO TID for 30 Days, #90 TAB 3 Refills Prov:YOANDY SALAS NP 06/06/24 Hydrocortone (Hydrocortisone 1%) 1 Applic Ap, 1 APPLIC TOP BID, #30 GRAMS Prov:JUAN ROGERS MD 02/08/24 Reported Medications Furosemide (Furosemide) 40 Mg Tab, 1 TAB PO DAILY 07/02/24 Hydrocodone-Acetaminophen (Hydrocodone Bitartrate/AC 10-325 mg) 1 Tab Tab, 1 TAB PO, TAB 06/18/24 Aspirin (Aspir-81) 81 Mg Tab, 1 TAB PO DAILY, #30 TAB 5 Refills 03/10/24 Risperidone (Risperidone) 2 Mg Tab, 2 MG PO BID, TAB 12/05/23 Nicotine (Nicoderm 21MG/24HR) 1 Patch Ph, 1 PATCH TOP DAILY, #28 PATCH 1 Refill 12/05/23 Mirtazapine (Mirtazapine Oral Disintegrating Tablet) 45 Mg Tab, 1 TAB PO QPM, #30 TAB 1 Refill 12/05/23 Melatonin (KP MELATONIN) 3 Mg Tab, 3 MG PO HS, TAB 12/05/23 Gabapentin (Gabapentin) 600 Mg Tab, 600 MG PO BID, TAB 12/05/23 Folic Acid (Folic Acid) 1 Mg Tab, 1 MG PO DAILY for 30 Days, MG 12/05/23 Fluticasone Furoate (Inhalatio (Arnuity Ellipta) 200 Mcg/Act Inh, 200 MCG IN, INHALER 12/05/23 Atorvastatin Calcium (ATORVASTATIN CALCIUM) 40 Mg Tab, 1 TAB PO DAILY, #30 TAB 5 Refills 12/05/23 Albuterol Sulfate (VENTOLIN MDI) 90 Mcg Ih, 90 MCG IN, INH 12/05/23 Information Source: Patient Mode of Arrival: Ambulatory Severity: Moderate Timing: Days Duration: Since onset Prehospital treatment: None Past Medical History PAST MEDICAL HISTORY: Anemia, Cancer, COPD, High Lipids, Hypotension, Schizophrenia, TIA Surgical History: Tonsillectomy Family History Family History: Reviewed,noncontributory to illness Social History Smoker: Cigarettes, Less Than 1 Pack/Day Alcohol: Denies ETOH Use Drugs: Marijuana Lives In: Home Constitutional: reports: fatigue, weakness; denies: chills, diaphoresis, fever, malaise, sweats, others EENTM: denies: blurred vision, double vision, ear bleeding, ear discharge, ear drainage, ear pain, ear ringing, eye pain, eye redness, hearing loss, mouth pain, mouth swelling, nasal discharge, nose bleeding, nose congestion, nose pain, photophobia, tearing, throat pain, throat swelling, voice changes, others Respiratory: denies: cough, hemoptysis, orthopnea, SOB at rest, shortness of breath, SOB with excertion, stridor, wheezing, others Cardiovascular: denies: chest pain, dizzy spells, diaphoresis, Dyspnea on exertion, edema, irregular heart beat, left arm pain, lightheadedness, palpitations, PND, syncope, others Gastrointestinal: denies: abdomen distended, abdominal pain, blood streaked bowels, constipated, diarrhea, dysphagia, difficulty swallowing, hematemesis, melena, nausea, poor appetite, poor fluid intake, rectal bleeding, rectal pain, vomiting, others Genitourinary: denies: burning, dysuria, flank pain, frequency, hematuria, incontinence, penile discharge, penile sore, pain, testicle pain, testicle swelling, urgency, others Neurological: denies: dizziness, fainting, headache, left sided numbness, left sided weakness, numbness, paresthesia, pre-existing deficit, right sided numbness, right sided weakness, seizure, speech problems, tingling, tremors, weakness, others Musculoskeletal: denies: back pain, gout, joint pain, joint swelling, muscle pain, muscle stiffness, neck pain, others Integumetry: denies: bruises, change in color, change in hair/nails, dryness, laceration, lesions, lumps, rash, wounds, others Allergic/Immunocompromised: denies: Difficulty Healing, Frequent Infections, Hives, Itching, others Hematologic/Lymphatic: denies: anemia, blood clots, easy bleeding, easy bruising, swollen glands, others Endocrine: denies: excessive hunger, excessive sweating, excessive thirst, excessive urination, flushing, intolerance to cold, intolerance to heat, unexplained weight gain, unexplained weight loss, others Psychiatric: denies: anxiety, bipolar disorder, depression, hopeless, panic disorder, schizophrenia, sleepless, suicidal, others All Other Systems: Reviewed and Negative Physical Exam General Appearance: Moderate Distress, Normal HEENT: Normal ENT Inspection, Pharynx Normal, TMs Normal Neck: Full Range of Motion, Non-Tender, Normal, Normal Inspection Respiratory: Chest Non-Tender, Lungs Clear, No Accessory Muscle Use, No Respir atory Distress, Normal Breath Sounds Cardiovascular: No Edema, No JVD, No Murmur, No Gallop, Normal Peripheral Pulses, Regular Rate/Rhythm Breast Exam: Deferred Gastrointestinal: No Organomegaly, Non Tender, No Pulsatile Mass, Normal Bowel Sounds, Soft Genitalia: Deferred Pelvic: Deferred Rectal: Deferred Extremities: No calf tenderness, Normal capillary refill, Normal inspection, Normal range of motion, Non-tender, No pedal edema Musculoskeletal : Apperance: Normal Neurologic: Alert, coal passer II-XII nml as Tested, No Motor Deficits, Normal Affect, Normal Mood, No Sensory Deficits Cerebellar Function: Normal Reflexes: Normal Skin: Dry, Normal Color, Warm Peripheral Pulses: 3+ Radial (R), 3+ Radial (L) Lymphatic: No Adenopathy Was a procedure done? Was a procedure done?: No Differential Dx Considerations may include: Anemia Electrolyte imbalance X-Ray, Labs, Meds, VS Vital Signs Date Time Temp Pulse Resp B/P (MAP) Pulse Ox O2 Delivery O2 Flow Rate FiO2 07/30/24 06:45 98.7 99 18 138/82 (100) 99 98.7 07/30/24 05:50 98.9 113 18 105/58 (74) 100 98.9 Lab Test 07/30/24 06:59 Range/Units White Blood Count 5.4 4.4-10.8 10^3/uL Red Blood Count 2.68 L 4.5-5.90 10^6/uL Hemoglobin 7.8 L 13.5-17.5 g/dL Hematocrit 22.8 L 41.0-53.0 % Mean Corpuscular Volume 85.1 80.0-100.0 fL Mean Corpuscular Hemoglobin 29.0 28.0-32.0 pg Mean Corpuscular Hemoglobin Concent 34.1 32.0-36.0 g/dL Red Cell Distribution Width 15.6 H 11.8-14.3 % Platelet Count 103 #L 140-450 10^3/uL Mean Platelet Volume 9.7 6.9-10.8 fL Neutrophils (%) (Auto) 81.1 H 37.0-80.0 % Lymphocytes (%) (Auto) 11.3 10.0-50.0 % Monocytes (%) (Auto) 2.0 0.0-12.0 % Eosinophils (%) (Auto) 4.1 0.0-7.0 % Basophils (%) (Auto) 1.5 0.0-2.0 % Neutrophils # (Auto) 4.4 1.6-8.6 10 ^3/uL Lymphocytes # (Auto) 0.6 0.4-5.4 10 ^3/uL Monocytes # (Auto) 0.1 0-1.3 10 ^3/uL Eosinophils # (Auto) 0.2 0-0.8 10 ^3/uL Basophils # (Auto) 0.1 0-0.2 10 ^3/uL Nucleated Red Blood Cells 0.0 % Patient alert. Came in because of feeling weak and to get his hemoglobin level checked. He was here last week got transfusion. Vitals stable. He does still have a boot. No shortness a breath. No chest pain. Heart rate within normal limits on clinical examination. Saturation pristine on room air. Has good muscle strength. Counseled patient on effects of smoking cigarettes for 15 minutes. Explained to the patient that he will be admitted for blood transfusion maintaining hemoglobin close to 10 because of his age. Time of 1ST Reevaluation: 06:30 (PATIENT WAS INFORMED DURING INITIAL ASSESMENT THAT DUE TO HIS HISTORY AND CURRENT PRESENTATION, THERE IS A HIGH LIKLIHOOD THAT THEY WOULD STAYING WITH US IN THE HOSPITAL. ) Reevaluation 1ST: Improved Time of 2ND Reevaluation: 07:00 Reevaluation 2ND: Improved Patient Education/Counseling: Diagnosis, Treatment Family Education/Counseling: No Family Present Departure 1 Departure Time of Disposition: 07:09 Impression: Primary Impression: Symptomatic anemia Disposition: ADMITTED INPATIENT Admit to: Med Surg Condition: Guarded Comments 08:02 - SPOKE WITH PATIENT AND INFORMED HIM THAT DUE TO HIS HGB LEVELS HE WILL BE ADMITTED FOR A BLOOD TRANSFUSION SINCE HE IS FEELING SYMPTOMATIC. Critical Care Note Critical Care Time?: No Stability Stability form required: No Heart Score Heart Score: Heart Score Response (Comments) Value History N/A 0 EKG N/A 0 Age N/A 0 Risk Factors N/A 0 Troponin N/A 0 Total 0 I personally scribed for TEE ATKINS MD ([email or web address]) on 07/30/24 at 07:02. Electronically submitted by Tommy Wallace ([email or web address]). I personally scribed for TEE ATKINS MD ([email or web address]) on 07/30/24 at 08:08. Electronically submitted by Tommy Wallace ([email or web address]). TEE ATKINS MD July 30, 2024 07:02
[2024-07-30 07:48] LABS: Basophils # (auto) 0.1 10 ^3/uL (0-0.2); Basophils % (auto) 1.5 % (0.0-2.0); Eosinophils # (auto) 0.2 10 ^3/uL (0-0.8); Eosinophils % (auto) 4.1 % (0.0-7.0); Hematocrit 22.8 % (41.0-53.0); Hemoglobin 7.8 g/dL (13.5-17.5); Lymphocytes # (auto) 0.6 10 ^3/uL (0.4-5.4); Lymphocytes % (auto) 11.3 % (10.0-50.0); Mean Corpuscular Hgb Conc. 34.1 g/dL (32.0-36.0); Mean Corpuscular Volume 85.1 fL (80.0-100.0); Monocytes # (auto) 0.1 10 ^3/uL (0-1.3); Neutrophils # (auto) 4.4 10 ^3/uL (1.6-8.6); Neutrophils % (auto) 81.1 % (37.0-80.0); Platelet Count (auto) 103 10^3/uL (140-450); Red Blood Cells 2.68 10^6/uL (4.5-5.90); Red Cell Distribution Width 15.6 % (11.8-14.3); White Blood Cell 5.4 10^3/uL (4.4-10.8)
--- NOTE | 2024-07-30 09:29 | DVHHP2 ---
History of Present Illness Reason for Visit: Generalized weakness History of Present Illness Eugene Alejandro is a 68-year-old male, with past medical history of prostate cancer, MDS, schizophrenia, and COPD, who comes in frequently for lab draws due to severe anemia. Patient is seen frequently with generalized weakness requiring blood transfusion due to myelodysplastic syndrome. Patient states he has been experiencing weakness. Pulmonary: COPD Heme/Onc: Other (myelodysplastic syndrome) Psych: Schizophrenia Past Surgical History: Other (right leg skin graft), Tonsillectomy Smoke: <1 pack per day ALCOHOL: none Drugs: None Lives: with Family Domestic Violence: Neg Review of Systems Constitutional: Yes: Weakness, Malaise; No: Fever, Chills, Sweats, Other Eyes: No: Pain, Vision change, Conjunctivae inflammation, Eyelid inflammation, Other, Redness ENT: No: Ear pain, Ear discharge, Nose pain, Nose discharge, Nose congestion, Mouth pain, Mouth swelling, Throat pain, Throat swelling, Other Respiratory: No: Cough, Dry, Shortness of breath, SOB with excertion, Wheezing, Hemoptysis, Pleuritic Pain, Sputum, Wheezing, Other Cardiovascular: No: Chest Pain, Palpitations, Orthopnea, Paroxysmal Noc. Dyspnea, Edema, Lt Headedness, Other Gastrointestinal: No: Nausea, Vomiting, Abdominal Pain, Diarrhea, Constipation, Melena, Hematochezia, Other Genitourinary: No Dysuria, No Frequency, No Incontinence, No Hematuria, No Retention, No Other Musculoskeletal: No: other, neck pain, shoulder pain, arm pain, back pain, hand pain, leg pain, foot pain Skin: No: Rash, Lesions, Jaundice, Bruising, Other Neurological: No: Weakness, Numbness, Incoordination, Change in speech, Confusion, Seizures, Other Allergies: Coded Allergies: NO KNOWN ALLERGIES (Unverified , 12/04/23) Exam Vital Signs Vital Signs Date Time Temp Pulse Resp B/P (MAP) Pulse Ox O2 Delivery O2 Flow Rate FiO2 07/30/24 08:45 98.0 77 20 132/72 (92) 95 98.0 General Appearance: Alert, Oriented X3, Cooperative, mild distress HEENT: Atraumatic, PERRLA, Mucous membr. moist/pink Respiratory: Clear to auscultation, Normal air movement Cardiovascular: Regular rate, Normal S1, Normal S2 Abdominal: Normal bowel sounds, Soft, No tenderness, No hepatospenomegaly Extremities: No clubbing, No cyanosis, No edema, Normal pulses Skin: No rashes, No breakdown, No significant lesion Neuro: Normal gait, Normal speech, Strength at 5/5 X4 ext, Normal tone Psych/Mental Status: Mental status NL, Mood NL Labs/Xrays Labs Test 07/30/24 06:59 Range/Units White Blood Count 5.4 4.4-10.8 10^3/uL Red Blood Count 2.68 L 4.5-5.90 10^6/uL Hemoglobin 7.8 L 13.5-17.5 g/dL Hematocrit 22.8 L 41.0-53.0 % Mean Corpuscular Volume 85.1 80.0-100.0 fL Mean Corpuscular Hemoglobin 29.0 28.0-32.0 pg Mean Corpuscular Hemoglobin Concent 34.1 32.0-36.0 g/dL Red Cell Distribution Width 15.6 H 11.8-14.3 % Platelet Count 103 #L 140-450 10^3/uL Mean Platelet Volume 9.7 6.9-10.8 fL Neutrophils (%) (Auto) 81.1 H 37.0-80.0 % Lymphocytes (%) (Auto) 11.3 10.0-50.0 % Monocytes (%) (Auto) 2.0 0.0-12.0 % Eosinophils (%) (Auto) 4.1 0.0-7.0 % Basophils (%) (Auto) 1.5 0.0-2.0 % Neutrophils # (Auto) 4.4 1.6-8.6 10 ^3/uL Lymphocytes # (Auto) 0.6 0.4-5.4 10 ^3/uL Monocytes # (Auto) 0.1 0-1.3 10 ^3/uL Eosinophils # (Auto) 0.2 0-0.8 10 ^3/uL Basophils # (Auto) 0.1 0-0.2 10 ^3/uL Nucleated Red Blood Cells 0.0 % Assessment/Plan Assessment/Plan Assessment: Symptomatic anemia, MDS, Hyperlipidemia, COPD, Schizophrenia, Plan: Admit to Med-Surg, Transfuse 1 unit PRBC, Repeat H&H post transfusion, Manage/Monitor Hgb closely, Supplemental oxygen as needed, Breathing treatments as needed, Home medications reconciled, Plan discussed with: Patient My Orders Orders - ANNIKA SYED Procedure Category Date Status Time Admit ADMIT 07/30/24 Verified 09:16 Code Status CODE 07/30/24 Verified 09:16 2 Gm Sodium Diet DIET 07/30/24 Verified Breakfast Hydrocodone-Acet PHA 07/30/24 Verified 5/325mg Tab ([place] 09:30 Ondansetron Hcl PHA 07/30/24 Verified (Zofran) 09:30 Docusate Sodium PHA 07/30/24 Verified Capsule ([place] 09:30 Complete Blood Count LAB 07/31/24 Verified 04:00 Date of Service: July 30, 2024 Billing Provider: ANNIKA SYED Common Visit Codes: [id number] INP/OBS CARE (MOD) ANNIKA SYED July 30, 2024 09:29
[2024-07-30] MEDS ORDERED: IPRATROPIUM BROM 0.5 MG/2.5ML INH SOL NEB PRN (09:30)
[2024-07-30] MEDS ORDERED: ONDANSETRON HCL 4 MG/2 ML VIAL IV PRN (09:30)
[2024-07-30] MEDS ORDERED: ACETAMINOPHEN 325 MG TAB PO PRN (09:30)
[2024-07-30] MEDS ORDERED: ALBUTEROL SULF 2.5 MG/0.5ML(0.5%) NEB SOLN NEB PRN (09:30)
[2024-07-30] MEDS ORDERED: DOCUSATE SOD 100 MG CAP PO PRN (09:30)
[2024-07-30 09:36] LABS: Potassium 3.6 mmol/L (3.5-5.1); Sodium 139 mmol/L (136-145)
[2024-07-30 09:37] LABS: Anion Gap 6 (5-15); Calcium 9.2 mg/dL (8.7-10.4); Carbon Dioxide 25 mmol/L (20-31)
[2024-07-30 09:42] LABS: BUN/Creatinine Ratio 19.1 (10.0-20.0); Blood Urea Nitrogen 13 mg/dL (9-23); Glucose 104 mg/dL (74-106)
[2024-07-30 09:44] LABS: Chloride 108 mmol/L (98-107)
[2024-07-30] MEDS: GABAPENTIN 300 MG CAP PO SCH (10:59)
[2024-07-30] MEDS: MIDODRINE HCL 10 MG TAB PO SCH (15:24)
[2024-07-30 20:13] LABS: Hematocrit 24.9 % (41.0-53.0); Hemoglobin 8.7 g/dL (13.5-17.5)
[2024-07-30] MEDS: MELATONIN 3 MG PO SCH (20:49)
[2024-07-30] MEDS: risperiDONE 1 MG TAB PO SCH (20:54)
[2024-07-30] MEDS: HYDROcodone-ACET 5/325MG TAB PO PRN (22:52)
[2024-07-31] VITALS (9 sets, daily range): BP systolic 88–158; BP diastolic 37–81; PULSE 51–94; RESP 16–21; TEMP 97.6–99.1; O2SAT 95–100
[2024-07-31 06:29] LABS: Basophils % (auto) 1.2 % (0.0-2.0); Eosinophils # (auto) 0.3 10 ^3/uL (0-0.8); Hematocrit 21.2 % (41.0-53.0); Hemoglobin 7.2 g/dL (13.5-17.5); Mean Corpuscular Hgb Conc. 33.9 g/dL (32.0-36.0); Monocytes # (auto) 0.1 10 ^3/uL (0-1.3); Monocytes % (auto) 3.1 % (0.0-12.0)
[2024-07-31 06:32] LABS: Basophils # (auto) 0 10 ^3/uL (0-0.2); Eosinophils % (auto) 7.2 % (0.0-7.0); Lymphocytes # (auto) 0.7 10 ^3/uL (0.4-5.4); Lymphocytes % (auto) 17.1 % (10.0-50.0); Mean Corpuscular Hemoglobin 28.9 pg (28.0-32.0); Mean Corpuscular Volume 85.1 fL (80.0-100.0); Neutrophils % (auto) 71.4 % (37.0-80.0); Nucleated Red Blood Cells % 0.1 %; Platelet Count (auto) 85 10^3/uL (140-450); Red Blood Cells 2.49 10^6/uL (4.5-5.90); Red Cell Distribution Width 15.1 % (11.8-14.3); White Blood Cell 4.2 10^3/uL (4.4-10.8)
[2024-07-31 06:45] LABS: Alanine Aminotransferase 39 U/L (7-40); Alkaline Phosphatase 66 U/L (46-116); Anion Gap 8 (5-15); Aspartate Aminotransferase 18 U/L (13-40); Blood Urea Nitrogen 12 mg/dL (9-23); Carbon Dioxide 23 mmol/L (20-31); Glucose 90 mg/dL (74-106); Potassium 3.7 mmol/L (3.5-5.1); Sodium 138 mmol/L (136-145); Total Protein 6.1 g/dL (5.7-8.2)
[2024-07-31 06:47] LABS: Bilirubin, Total 0.6 mg/dL (0.2-1.0)
[2024-07-31 06:49] LABS: Albumin 3.1 g/dL (3.2-4.8); Calcium 8.3 mg/dL (8.7-10.4); Chloride 107 mmol/L (98-107)
[2024-07-31] MEDS: ASPirin-EC 81 mg tab PO SCH (09:51)
[2024-07-31] MEDS: FOLIC ACID 1 MG TAB PO SCH (09:52)
[2024-07-31] MEDS: FUROSEMIDE 40 MG TAB PO SCH (09:52)
[2024-07-31 10:09] LABS: Hepatitis B Surface Antigen Negative (Negative)
[2024-07-31 10:27] LABS: Hepatitis C Antibody Negative (Negative)
--- NOTE | 2024-07-31 18:50 | DVHPN2 ---
Subjective still feeling very sob on minimal exertion and talking Changes from previous H/P or p: No Changes Eyes: No Pain, No Vision change, No Conjunctivae inflammation, No Eyelid inflammation, No Other, No Redness ENT: No Ear pain, No Ear discharge, No Nose pain, No Nose discharge, No Nose congestion, No Mouth pain, No Mouth swelling, No Throat pain, No Throat swelling, No Other Cardiovascular: No Chest Pain, No Palpitations, No Orthopnea, No Paroxysmal Noc. Dyspnea, No Edema, No Lt Headedness, No Other Respiratory: No Cough, No Dry, No Shortness of breath, No SOB with excertion, No Wheezing, No Hemoptysis, No Pleuritic Pain, No Sputum, No Other Gastrointestinal: No Nausea, No Vomiting, No Abdominal Pain, No Diarrhea, No Constipation, No Melena, No Hematochezia, No Other Genitourinary: No Dysuria, No Frequency, No Incontinence, No Hematuria, No Retention, No Other Musculoskeletal: No other, No neck pain, No shoulder pain, No arm pain, No back pain, No hand pain, No leg pain, No foot pain Skin: No Rash, No Lesions, No Jaundice, No Bruising, No Other Objective Vitals Vital Signs Date Time Temp Pulse Resp B/P (MAP) Pulse Ox O2 Delivery O2 Flow Rate FiO2 07/31/24 16:31 98.4 80 20 91/42 (58) 100 98.4 07/31/24 08:00 Room Air* 0 21 Intake/Output Intake and Output 07/31/24 07:00 Intake Total 700 ml Output Total 630 ml Balance 70 ml Intake Oral 100 ml Blood Product 600 ml Output Urine Total 630 ml General Appearance: Alert, Oriented X3 Lungs: Clear to auscultation Cardiovascular: Regular rate, Normal S1, Normal S2 Medications Current Medications Medications Dose Ordered Sig/Fabricio Route Start Time Stop Time Status Last Admin Dose Admin Acetaminophen/ Hydrocodone Bitart 1 tab Q4HP PRN PO 07/30/24 09:30 07/31/24 09:55 1 TAB Ondansetron HCl 4 mg Q4HP PRN IV 07/30/24 09:30 Docusate Sodium 100 mg BIDPRN PRN PO 07/30/24 09:30 Acetaminophen 650 mg Q6HP PRN PO 07/30/24 09:30 Ipratropium [place] 0.5 mg Q6HPRN PRN NEB 5/13/25 09:30 Albuterol 2.5 mg Q6HPRN PRN NEB 07/30/24 09:30 Aspirin 81 mg DAILY PO 07/31/24 10:00 07/31/24 09:51 81 MG Furosemide 40 mg DAILY PO 07/31/24 10:00 07/31/24 09:52 40 MG Midodrine 10 mg TID@0600,1200,1800 PO 07/30/24 12:00 07/31/24 17:36 10 MG Folic Acid 1 mg DAILY PO 07/31/24 10:00 07/31/24 09:52 1 MG Gabapentin 600 mg BID PO 07/30/24 10:18 07/30/24 20:53 600 MG Patient Own Medication 3 mg HS PO 07/30/24 22:00 Risperidone 2 mg BID PO 07/30/24 22:00 07/31/24 09:51 2 MG Laboratory Results Laboratory Tests 07/31/24 05:22 Chemistry Test 07/31/24 05:22 Albumin 3.1 g/dL (3.2-4.8) L Calcium Level 8.3 mg/dL (8.7-10.4) L Total Protein 6.1 g/dL (5.7-8.2) LFT Test 07/31/24 05:22 Alanine Aminotransferase (ALT) 39 U/L (7-40) Alkaline Phosphatase 66 U/L (46-116) Aspartate Amino Transferase (AST) 18 U/L (13-40) Total Bilirubin 0.6 mg/dL (0.2-1.0) Microbiology Microbiology Date/Time Source Procedure Growth Status 07/30/24 23:30 Nose MRSA Screen - Final Complete Assessment/Plan Assessment/Plan Symptomatic anemia, MDS, Hyperlipidemia, COPD, Schizophrenia, Will transfuse 2 U PRBC monitor CBC tomorrow Plan discussed with: Patient Date of Service: July 31, 2024 Billing Provider: JAME HOOPER MD Common Visit Codes: [id number] INP/OBS CARE(HIGH) JAME HOOPER MD July 31, 2024 18:50
[2024-08-01] VITALS (14 sets, daily range): BP systolic 91–124; BP diastolic 30–76; PULSE 76–91; RESP 16–20; TEMP 98.2–99.8; O2SAT 94–98
[2024-08-01 12:38] LABS: Basophils # (auto) 0.1 10 ^3/uL (0-0.2); Basophils % (auto) 1.3 % (0.0-2.0); Eosinophils # (auto) 0.3 10 ^3/uL (0-0.8); Lymphocytes # (auto) 0.8 10 ^3/uL (0.4-5.4); Mean Corpuscular Volume 85.6 fL (80.0-100.0); Monocytes # (auto) 0.1 10 ^3/uL (0-1.3); Neutrophils # (auto) 3.2 10 ^3/uL (1.6-8.6); White Blood Cell 4.5 10^3/uL (4.4-10.8)
[2024-08-01 12:39] LABS: Hematocrit 21.9 % (41.0-53.0); Hemoglobin 7.5 g/dL (13.5-17.5); Lymphocytes % (auto) 17.8 % (10.0-50.0); Mean Corpuscular Hemoglobin 29.2 pg (28.0-32.0); Monocytes % (auto) 3.2 % (0.0-12.0); Neutrophils % (auto) 70.7 % (37.0-80.0); Nucleated Red Blood Cells % 0.1 %; Platelet Count (auto) 100 10^3/uL (140-450); Red Blood Cells 2.56 10^6/uL (4.5-5.90)
--- NOTE | 2024-08-01 17:47 | DVHPN2 ---
Subjective still feeling very sob on minimal exertion and talking Changes from previous H/P or p: No Changes Eyes: No Pain, No Vision change, No Conjunctivae inflammation, No Eyelid inflammation, No Other, No Redness ENT: No Ear pain, No Ear discharge, No Nose pain, No Nose discharge, No Nose congestion, No Mouth pain, No Mouth swelling, No Throat pain, No Throat swelling, No Other Cardiovascular: No Chest Pain, No Palpitations, No Orthopnea, No Paroxysmal Noc. Dyspnea, No Edema, No Lt Headedness, No Other Respiratory: No Cough, No Dry, No Shortness of breath, No SOB with excertion, No Wheezing, No Hemoptysis, No Pleuritic Pain, No Sputum, No Other Gastrointestinal: No Nausea, No Vomiting, No Abdominal Pain, No Diarrhea, No Constipation, No Melena, No Hematochezia, No Other Genitourinary: No Dysuria, No Frequency, No Incontinence, No Hematuria, No Retention, No Other Musculoskeletal: No other, No neck pain, No shoulder pain, No arm pain, No back pain, No hand pain, No leg pain, No foot pain Skin: No Rash, No Lesions, No Jaundice, No Bruising, No Other Objective Vitals Vital Signs Date Time Temp Pulse Resp B/P (MAP) Pulse Ox O2 Delivery O2 Flow Rate FiO2 08/01/24 17:05 99.1 79 16 94/30 99.1 08/01/24 13:00 94 08/01/24 08:15 Room Air* 0 21 Intake/Output Intake and Output 08/01/24 07:00 Intake Total 1000 ml Output Total 2115 ml Balance -1115 ml Intake Oral 1000 ml Output Urine Total 2115 ml # Voids 1 # Bowel Movements 1 General Appearance: Alert, Oriented X3 Lungs: Clear to auscultation Cardiovascular: Regular rate, Normal S1, Normal S2 Medications Current Medications Medications Dose Ordered Sig/Fabricio Route Start Time Stop Time Status Last Admin Dose Admin Acetaminophen/ Hydrocodone Bitart 1 tab Q4HP PRN PO 07/30/24 09:30 07/31/24 09:55 1 TAB Ondansetron HCl 4 mg Q4HP PRN IV 07/30/24 09:30 Docusate Sodium 100 mg BIDPRN PRN PO 07/30/24 09:30 Acetaminophen 650 mg Q6HP PRN PO 07/30/24 09:30 Ipratropium [place] 0.5 mg Q6HPRN PRN NEB 07/30/24 09:30 Cancel Albuterol 2.5 mg Q6HPRN PRN NEB 07/30/24 09:30 Cancel Aspirin 81 mg DAILY PO 07/31/24 10:00 07/31/24 09:51 81 MG Furosemide 40 mg DAILY PO 07/31/24 10:00 07/31/24 09:52 40 MG Midodrine 10 mg TID@0600,1200,1800 PO 07/30/24 12:00 08/01/24 12:19 10 MG Folic Acid 1 mg DAILY PO 07/31/24 10:00 08/01/24 10:21 1 MG Gabapentin 600 mg BID PO 07/30/24 10:18 08/01/24 10:22 600 MG Patient Own Medication 3 mg HS PO 07/30/24 22:00 Risperidone 2 mg BID PO 07/30/24 22:00 08/01/24 10:21 2 MG Laboratory Results Laboratory Tests 07/31/24 05:22 08/01/24 12:18 Microbiology Microbiology Date/Time Source Procedure Growth Status 07/30/24 23:30 Nose MRSA Screen - Final Complete Assessment/Plan Assessment/Plan Symptomatic anemia, MDS, Hyperlipidemia, COPD, Schizophrenia, Will transfuse 2 U PRBC monitor CBC tomorrow Plan discussed with: Patient My Orders Orders - JAME HOOPER MD Procedure Category Date Status Time Transfuse Blood ORDERS 07/31/24 Transmitted Product 18:48 Obtain Consent For: ORDERS 08/01/24 Transmitted 11:45 Date of Service: August 01, 2024 Billing Provider: JAME HOOPER MD Common Visit Codes: [id number] INP/OBS CARE(HIGH) JAME HOOPER MD August 01, 2024 17:46
[2024-08-01 20:59] LABS: Basophils # (auto) 0.1 10 ^3/uL (0-0.2); Eosinophils # (auto) 0.4 10 ^3/uL (0-0.8); Eosinophils % (auto) 7.8 % (0.0-7.0); Hematocrit 26.9 % (41.0-53.0); Hemoglobin 9.1 g/dL (13.5-17.5); Lymphocytes % (auto) 19.5 % (10.0-50.0); Mean Corpuscular Hemoglobin 29.2 pg (28.0-32.0); Mean Corpuscular Hgb Conc. 33.9 g/dL (32.0-36.0); Mean Corpuscular Volume 86.2 fL (80.0-100.0); Monocytes # (auto) 0.2 10 ^3/uL (0-1.3); Monocytes % (auto) 3.2 % (0.0-12.0); Neutrophils # (auto) 3.6 10 ^3/uL (1.6-8.6); Neutrophils % (auto) 67.5 % (37.0-80.0); Nucleated Red Blood Cells % 0.1 %; Platelet Count (auto) 99 10^3/uL (140-450); Red Blood Cells 3.12 10^6/uL (4.5-5.90); Red Cell Distribution Width 14.8 % (11.8-14.3); White Blood Cell 5.4 10^3/uL (4.4-10.8)
[2024-08-02 01:00] VITALS: BP 88/39; PULSE 75; RESP 16; TEMP 98.8; O2SAT 95
[2024-08-02 05:00] VITALS: BP 92/46; PULSE 77; RESP 17; TEMP 99; O2SAT 94
[2024-08-02 08:10] VITALS: O2SAT 99
[2024-08-02 08:36] VITALS: BP 102/59; PULSE 79; RESP 19; TEMP 98.9; O2SAT 99
[2024-08-02 13:00] VITALS: BP 100/65; PULSE 101; RESP 19; TEMP 98.8; O2SAT 98
== END 2024-08-02 16:35 | disposition home or self-care (01) | DRG 812 ==
LOC: ER 05:45 → OVERFLOW 09:16 → WEST WING 22:02
PROVIDERS: ADMIT Hospitalist; ATTEND Hospitalist
PROC: 30233N1 Transfusion of Nonautologous Red Blood Cells into Peripheral Vein, Percutaneous Approach (ICD-10-PCS; principal; 2024-07-30)
DX: D46.9 Myelodysplastic syndrome, unspecified (principal); J44.9 Chronic obstructive pulmonary disease, unspecified; E78.5 Hyperlipidemia, unspecified; F17.210 Nicotine dependence, cigarettes, uncomplicated; F20.9 Schizophrenia, unspecified; Z86.73 Personal history of transient ischemic attack (TIA), and cerebral infarction without residual deficits; Z85.46 Personal history of malignant neoplasm of prostate; Z79.84 Long term (current) use of oral hypoglycemic drugs; Z79.82 Long term (current) use of aspirin
CPT/HCPCS: 36415; 80048; 80053; 85014; 85018; 85025; 86803; 86850; 86900; 86901; 86902; 86922; 87081; 87340; G0378

== ENCOUNTER 2024-08-06 05:54 | Emergency (ER) | payer OTHER, MEDICAID ==
[~2024-08-06] VITALS: Ht 180.3 cm; Wt 66.0 kg
[~2024-08-06 05:54] MED LIST changes: -ASPI1TAB20 PO; -FOLI-119 PO
[2024-08-06 08:51] LABS: Basophils # (auto) 0.1 10 ^3/uL (0-0.2); Basophils % (auto) 2.9 % (0.0-2.0); Eosinophils # (auto) 0.3 10 ^3/uL (0-0.8); Eosinophils % (auto) 7.2 % (0.0-7.0); Hematocrit 27.2 % (41.0-53.0); Hemoglobin 9.2 g/dL (13.5-17.5); Lymphocytes # (auto) 0.8 10 ^3/uL (0.4-5.4); Lymphocytes % (auto) 15.5 % (10.0-50.0); Mean Corpuscular Hemoglobin 29.4 pg (28.0-32.0); Mean Corpuscular Hgb Conc. 33.9 g/dL (32.0-36.0); Mean Corpuscular Volume 86.7 fL (80.0-100.0); Monocytes # (auto) 0.2 10 ^3/uL (0-1.3); Monocytes % (auto) 3.4 % (0.0-12.0); Neutrophils # (auto) 3.5 10 ^3/uL (1.6-8.6); Platelet Count (auto) 104 10^3/uL (140-450); Red Blood Cells 3.14 10^6/uL (4.5-5.90); Red Cell Distribution Width 14.7 % (11.8-14.3); White Blood Cell 4.9 10^3/uL (4.4-10.8)
[2024-08-06 09:00] LABS: Anion Gap 5 (5-15); Carbon Dioxide 25 mmol/L (20-31); Potassium 3.7 mmol/L (3.5-5.1); Sodium 137 mmol/L (136-145)
[2024-08-06 09:01] LABS: Calcium 9.5 mg/dL (8.7-10.4)
--- NOTE | 2024-08-06 09:01 | ED.PDOC ---
History of Present Illness HPI Comments 69 year old male presents to the ED with chief complaint of anemia. Patient reports that he believes his Hgb is low and needs a blood transfusion today as he needs every week. Patient relays that he is experiencing dizziness and weakness. Patient denies any chest pain, SOB, N/V, headache, or any other sympto ms. Chief Complaint: Abnormal LAB's Time Seen by MD: 08:59 Primary Care Provider: MADDIE Reviewed Notes: Nurses Notes, Medications, Allergies Allergies: Coded Allergies: NO KNOWN ALLERGIES (Unverified , 12/04/23) Home Meds Active Scripts Midodrine Hcl (Midodrine Hcl) 10 Mg Tab, 10 MG PO TID for 30 Days, #90 TAB 3 Refills Prov:YOANDY SALAS NP 06/06/24 Hydrocortone (Hydrocortisone 1%) 1 Applic Ap, 1 APPLIC TOP BID, #30 GRAMS Prov:JUAN ROGERS MD 02/08/24 Reported Medications Furosemide (Furosemide) 40 Mg Tab, 1 TAB PO DAILY 07/02/24 Hydrocodone-Acetaminophen (Hydrocodone Bitartrate/AC 10-325 mg) 1 Tab Tab, 1 TAB PO, TAB 06/18/24 Risperidone (Risperidone) 2 Mg Tab, 2 MG PO BID, TAB 12/05/23 Nicotine (Nicoderm 21MG/24HR) 1 Patch Ph, 1 PATCH TOP DAILY, #28 PATCH 1 Refill 12/05/23 Mirtazapine (Mirtazapine Oral Disintegrating Tablet) 45 Mg Tab, 1 TAB PO QPM, #30 TAB 1 Refill 12/05/23 Melatonin (KP MELATONIN) 3 Mg Tab, 3 MG PO HS, TAB 12/05/23 Gabapentin (Gabapentin) 600 Mg Tab, 600 MG PO BID, TAB 12/05/23 Fluticasone Furoate (Inhalatio (Arnuity Ellipta) 200 Mcg/Act Inh, 200 MCG IN, INHALER 12/05/23 Atorvastatin Calcium (ATORVASTATIN CALCIUM) 40 Mg Tab, 1 TAB PO DAILY, #30 TAB 5 Refills 12/05/23 Albuterol Sulfate (VENTOLIN MDI) 90 Mcg Ih, 90 MCG IN, INH 12/05/23 Discontinued Reported Medications Aspirin (Aspir-81) 81 Mg Tab, 1 TAB PO DAILY, #30 TAB 5 Refills 03/10/24 Folic Acid (Folic Acid) 1 Mg Tab, 1 MG PO DAILY for 30 Days, MG 12/05/23 Information Source: Patient Mode of Arrival: Ambulatory Severity: Moderate Timing: Days Duration: Since onset Prehospital treatment: None Past Medical History PAST MEDICAL HISTORY: Anemia, Cancer, COPD, High Lipids, Hypotension, Schizophrenia, TIA Surgical History: Tonsillectomy Family History Family History: Reviewed,noncontributory to illness Social History Smoker: Cigarettes, Less Than 1 Pack/Day Alcohol: Denies ETOH Use Drugs: Marijuana Lives In: Home Constitutional: reports: weakness; denies: chills, diaphoresis, fatigue, fever, malaise, sweats, others EENTM: denies: blurred vision, double vision, ear bleeding, ear discharge, ear drainage, ear pain, ear ringing, eye pain, eye redness, hearing loss, mouth pain, mouth swelling, nasal discharge, nose bleeding, nose congestion, nose pain, photophobia, tearing, throat pain, throat swelling, voice changes, others Respiratory: denies: cough, hemoptysis, orthopnea, SOB at rest, shortness of breath, SOB with excertion, stridor, wheezing, others Cardiovascular: denies: chest pain, dizzy spells, diaphoresis, Dyspnea on exertion, edema, irregular heart beat, left arm pain, lightheadedness, palpitations, PND, syncope, others Gastrointestinal: denies: abdomen distended, abdominal pain, blood streaked bowels, constipated, diarrhea, dysphagia, difficulty swallowing, hematemesis, melena, nausea, poor appetite, poor fluid intake, rectal bleeding, rectal pain, vomiting, others Genitourinary: denies: burning, dysuria, flank pain, frequency, hematuria, incontinence, penile discharge, penile sore, pain, testicle pain, testicle swelling, urgency, others Neurological: denies: dizziness, fainting, headache, left sided numbness, left sided weakness, numbness, paresthesia, pre-existing deficit, right sided numbness, right sided weakness, seizure, speech problems, tingling, tremors, weakness, others Musculoskeletal: denies: back pain, gout, joint pain, joint swelling, muscle pain, muscle stiffness, neck pain, others Integumetry: reports: change in color; denies: bruises, change in hair/nails, dryness, laceration, lesions, lumps, rash, wounds, others Allergic/Immunocompromised: denies: Difficulty Healing, Frequent Infections, Hives, Itching, others Hematologic/Lymphatic: reports: anemia; denies: blood clots, easy bleeding, easy bruising, swollen glands, others Endocrine: denies: excessive hunger, excessive sweating, excessive thirst, excessive urination, flushing, intolerance to cold, intolerance to heat, unexplained weight gain, unexplained weight loss, others Psychiatric: denies: anxiety, bipolar disorder, depression, hopeless, panic disorder, schizophrenia, sleepless, suicidal, others All Other Systems: Reviewed and Negative Physical Exam General Appearance: No Apparent Distress, Normal HEENT: Normal ENT Inspection, Pharynx Normal, TMs Normal Neck: Full Range of Motion, Non-Tender, Normal, Normal Inspection Respiratory: Chest Non-Tender, Lungs Clear, No Accessory Muscle Use, No Res piratory Distress, Normal Breath Sounds Cardiovascular: No Edema, No JVD, No Murmur, No Gallop, Normal Peripheral Pulses, Regular Rate/Rhythm Breast Exam: Deferred Gastrointestinal: No Organomegaly, Non Tender, No Pulsatile Mass, Normal Bowel Sounds, Soft Genitalia: Deferred Pelvic: Deferred Rectal: Deferred Extremities: No calf tenderness, Normal capillary refill, Normal inspection, Normal range of motion, Non-tender, No pedal edema Musculoskeletal : Apperance: Normal Neurologic: Alert, rotary surface grinder II-XII nml as Tested, No Motor Deficits, Normal Affect, Normal Mood, No Sensory Deficits Cerebellar Function: Normal Reflexes: Normal Skin: Dry, Pallor, Warm Lymphatic: No Adenopathy Was a procedure done? Was a procedure done?: No Differential Dx Considerations may include: Symptomatic Anemia X-Ray, Labs, Meds, VS Vital Signs Date Time Temp Pulse Resp B/P (MAP) Pulse Ox O2 Delivery O2 Flow Rate FiO2 08/06/24 09:40 84 14 99/70 (80) 99 08/06/24 07:36 98.5 86 14 95/65 (75) 98 98.5 08/06/24 06:14 98.5 98 16 100/61 (74) 99 98.5 Lab Test 08/06/24 08:40 Range/Units White Blood Count 4.9 4.4-10.8 10^3/uL Red Blood Count 3.14 L 4.5-5.90 10^6/uL Hemoglobin 9.2 L 13.5-17.5 g/dL Hematocrit 27.2 L 41.0-53.0 % Mean Corpuscular Volume 86.7 80.0-100.0 fL Mean Corpuscular Hemoglobin 29.4 28.0-32.0 pg Mean Corpuscular Hemoglobin Concent 33.9 32.0-36.0 g/dL Red Cell Distribution Width 14.7 H 11.8-14.3 % Platelet Count 104 L 140-450 10^3/uL Mean Platelet Volume 9.3 6.9-10.8 fL Neutrophils (%) (Auto) 71.0 37.0-80.0 % Lymphocytes (%) (Auto) 15.5 10.0-50.0 % Monocytes (%) (Auto) 3.4 0.0-12.0 % Eosinophils (%) (Auto) 7.2 H 0.0-7.0 % Basophils (%) (Auto) 2.9 H 0.0-2.0 % Neutrophils # (Auto) 3.5 1.6-8.6 10 ^3/uL Lymphocytes # (Auto) 0.8 0.4-5.4 10 ^3/uL Monocytes # (Auto) 0.2 0-1.3 10 ^3/uL Eosinophils # (Auto) 0.3 0-0.8 10 ^3/uL Basophils # (Auto) 0.1 0-0.2 10 ^3/uL Nucleated Red Blood Cells 0.0 % Sodium Level 137 136-145 mmol/L Potassium Level 3.7 3.5-5.1 mmol/L Chloride Level 107 98-107 mmol/L Carbon Dioxide Level 25 20-31 mmol/L Anion Gap 5 5-15 Blood Urea Nitrogen 12 9-23 mg/dL Creatinine 0.68 L 0.700-1.30 mg/dL Glomerular Filtration Rate Calc 102 >90 mL/min BUN/Creatinine Ratio 17.6 10.0-20.0 Serum Glucose 156 H 74-106 mg/dL Calcium Level 9.5 8.7-10.4 mg/dL Time of 1ST Reevaluation: 09:59 Reevaluation 1ST: Unchanged Patient Education/Counseling: Diagnosis, Treatment Family Education/Counseling: No Family Present Additional Information Previous visits reviewed: 07/30/24 symptomatic anemia The following tests were ordered, and results were reviewed by me: CBC, BMP, Type/Screen Additional Information was gathered from interviewing the following independent historians: None I reviewed and agreed with the following test results read by other providers: None I discussed treatment and results with medical personnel and: patient Comprehensive systems review obtained and negative except for what is stated in the HPI. Departure 1 Departure Time of Disposition: 10:50 (Patient's hemoglobin is at baseline. We will discharge patient home with outpatient follow up) Impression: Primary Impression: Generalized weakness Disposition: 01 HOME / SELF CARE / HOMELESS Condition: Stable Additional Instructions: Your hemoglobin today was 9.2. I hope you feel better and please return if you feel worse. Discharged With: Self Critical Care Note Critical Care Time?: No Stability Stability form required: No Heart Score Heart Score: Heart Score Response (Comments) Value History N/A 0 EKG N/A 0 Age N/A 0 Risk Factors N/A 0 Troponin N/A 0 Total 0 I personally scribed for RAYRAY PAPPAS MD ([email or web address]) on 08/06/24 at 09:01. Electronically submitted by Mason Montano ([email or web address]). RAYRAY PAPPAS MD August 06, 2024 09:01
[2024-08-06 09:06] LABS: BUN/Creatinine Ratio 17.6 (10.0-20.0); Blood Urea Nitrogen 12 mg/dL (9-23)
[2024-08-06 09:07] LABS: Chloride 107 mmol/L (98-107); Glucose 156 mg/dL (74-106)
[2024-08-06 09:40] VITALS: BP 99/70; PULSE 84; RESP 14; O2SAT 99
== END 2024-08-06 10:55 | disposition home or self-care (01) ==
LOC: ER 05:54
DX: R53.1 Weakness (principal); F20.9 Schizophrenia, unspecified; E78.5 Hyperlipidemia, unspecified; F19.90 Other psychoactive substance use, unspecified, uncomplicated; F17.210 Nicotine dependence, cigarettes, uncomplicated; J44.9 Chronic obstructive pulmonary disease, unspecified; Z86.73 Personal history of transient ischemic attack (TIA), and cerebral infarction without residual deficits; Z90.89 Acquired absence of other organs; Z79.899 Other long term (current) drug therapy; Z86.2 Personal history of diseases of the blood and blood-forming organs and certain disorders involving the immune mechanism
CPT/HCPCS: 36415; 80048; 85025; 86850; 86900; 86901

== ENCOUNTER 2024-08-16 09:52 | Inpatient (IN) | payer OTHER, MEDICAID ==
[2024-08-16] VITALS (9 sets, daily range): BP systolic 87–106; BP diastolic 40–53; PULSE 80–91; RESP 11–22; TEMP 97.1–98.7; O2SAT 93–96
[~2024-08-16] VITALS: Ht 180.3 cm; Wt 73.0 kg
--- NOTE | 2024-08-16 10:45 | ED.PDOC ---
HPI Comments 69M presents to the ER w/ prior MHx of Bipolar Disorder, High Lipids, HTN Anemia, COPD;SHx of Tonsillectomy, Cellulitis x3 months and the c/c of Low BP. Pt reports on being at his PCP when a nurse informed the pt that he looked "weird" due from the pt's eyes being "yellow". When pt arrived to the ER he had low BP of being systolically in the 80's. Pt states on feeling N/ as well as the pt only feeling theses symptoms today. Pt does have edema on the right lower extremity, from the wound an is being taken care of. Pt notes that his PCP did do a an US and the pt does not have any Blood Clots. Social Hx of tobacco use, occasional alcohol use, but denies substance use. Denies chills, fever, /V/D, SOB, CP. Denies any other associated symptom's, modifiers, or recent injuries or sick contact at this time. Chief Complaint: Low Blood Pressure Time Seen by MD: 10:25 Primary Care Provider: MADDIE Reviewed Notes: Nurses Notes, Medications, Allergies Allergies: Coded Allergies: NO KNOWN ALLERGIES (Unverified , 12/04/23) Home Meds Active Scripts Midodrine Hcl (Midodrine Hcl) 10 Mg Tab, 10 MG PO TID for 30 Days, #90 TAB 3 Refills Prov:YOANDY SALAS NP 06/06/24 Hydrocortone (Hydrocortisone 1%) 1 Applic Ap, 1 APPLIC TOP BID, #30 GRAMS Prov:JUAN ROGERS MD 02/08/24 Reported Medications Furosemide (Furosemide) 40 Mg Tab, 1 TAB PO DAILY 07/02/24 Hydrocodone-Acetaminophen (Hydrocodone Bitartrate/AC 10-325 mg) 1 Tab Tab, 1 TAB PO, TAB 06/18/24 Risperidone (Risperidone) 2 Mg Tab, 2 MG PO BID, TAB 12/05/23 Nicotine (Nicoderm 21MG/24HR) 1 Patch Ph, 1 PATCH TOP DAILY, #28 PATCH 1 Refill 12/05/23 Mirtazapine (Mirtazapine Oral Disintegrating Tablet) 45 Mg Tab, 1 TAB PO QPM, #30 TAB 1 Refill 12/05/23 Melatonin (KP MELATONIN) 3 Mg Tab, 3 MG PO HS, TAB 12/05/23 Gabapentin (Gabapentin) 600 Mg Tab, 600 MG PO BID, TAB 12/05/23 Fluticasone Furoate (Inhalatio (Arnuity Ellipta) 200 Mcg/Act Inh, 200 MCG IN, INHALER 12/05/23 Atorvastatin Calcium (ATORVASTATIN CALCIUM) 40 Mg Tab, 1 TAB PO DAILY, #30 TAB 5 Refills 12/05/23 Albuterol Sulfate (VENTOLIN MDI) 90 Mcg Ih, 90 MCG IN, INH 12/05/23 Information Source: Patient Mode of Arrival: Wheelchair Severity: Moderate Timing: Minutes Duration: Since onset, Minutes Prehospital treatment: None Onset: With Light Exertion Cardiac Risk Factors: Smoker, Hyperlipidemia, HTN PE Risk Factors: None History of: None Associated Signs and Symptoms: None Past Medical History PAST MEDICAL HISTORY: Anemia, COPD, High Lipids Past Medical History (Other): Bipolar Disorder Surgical History: Tonsillectomy Surgical History (Other): Cellulitis for 3 months Family History Family History: Reviewed,noncontributory to illness, Unknown Social History Smoker: Cigarettes, Less Than 1 Pack/Day Alcohol: Occasionally Drugs: Denies Drug Use Lives In: Home Constitutional: reports: weakness; denies: chills, diaphoresis, fatigue, fever, malaise, sweats, others EENTM: denies: blurred vision, double vision, ear bleeding, ear discharge, ear drainage, ear pain, ear ringing, eye pain, eye redness, hearing loss, mouth pain, mouth swelling, nasal discharge, nose bleeding, nose congestion, nose pain, photophobia, tearing, throat pain, throat swelling, voice changes, others Respiratory: denies: cough, hemoptysis, orthopnea, SOB at rest, shortness of breath, SOB with excertion, stridor, wheezing, others Cardiovascular: denies: chest pain, dizzy spells, diaphoresis, Dyspnea on exertion, edema, irregular heart beat, left arm pain, lightheadedness, palpitations, PND, syncope, others Gastrointestinal: reports: nausea; denies: abdomen distended, abdominal pain, blood streaked bowels, constipated, diarrhea, dysphagia, difficulty swallowing, hematemesis, melena, poor appetite, poor fluid intake, rectal bleeding, rectal pain, vomiting, others Genitourinary: denies: burning, dysuria, flank pain, frequency, hematuria, incontinence, penile discharge, penile sore, pain, testicle pain, testicle swelling, urgency, others Neurological: denies: dizziness, fainting, headache, left sided numbness, left sided weakness, numbness, paresthesia, pre-existing deficit, right sided numbness, right sided weakness, seizure, speech problems, tingling, tremors, weakness, others Musculoskeletal: denies: back pain, gout, joint pain, joint swelling, muscle pain, muscle stiffness, neck pain, others Integumetry: denies: bruises, change in color, change in hair/nails, dryness, laceration, lesions, lumps, rash, wounds, others Allergic/Immunocompromised: denies: Difficulty Healing, Frequent Infections, Hives, Itching, others Hematologic/Lymphatic: denies: anemia, blood clots, easy bleeding, easy bruising, swollen glands, others Endocrine: denies: excessive hunger, excessive sweating, excessive thirst, excessive urination, flushing, intolerance to cold, intolerance to heat, unexplained weight gain, unexplained weight loss, others Psychiatric: denies: anxiety, bipolar disorder, depression, hopeless, panic disorder, schizophrenia, sleepless, suicidal, others All Other Systems: Reviewed and Negative Physical Exam General Appearance: No Apparent Distress, Normal HEENT: Normal ENT Inspection, PERRL/EOMI, Pharynx Normal, TMs Normal Neck: Full Range of Motion, Non-Tender, Normal, Normal Inspection Respiratory: Chest Non-Tender, Lungs Clear, No Accessory Muscle Use, No Respiratory Distress, Normal Breath Sounds Cardiovascular: No Edema, No JVD, No Murmur, No Gallop, Normal Peripheral Pulses, Regular Rate/Rhythm Breast Exam: Deferred Gastrointestinal: No Organomegaly, Non Tender, No Pulsatile Mass, Normal Bowel Sounds, Soft Genitalia: Deferred Pelvic: Deferred Rectal: Deferred Extremities: Decreased range of motion, Inflammation, Leg edema, No calf tender ness, Pedal edema, Swelling, Tender, Other (Right leg) Musculoskeletal : Location: Right Extremity Location: Leg Apperance: Normal, Swelling, Limited ROM, Tenderness: Moderate, NOT DONE (Being treated as outpatient) Neurologic: Alert, print cutter II-XII nml as Tested, No Motor Deficits, Normal Affect, Normal Mood, No Sensory Deficits Cerebellar Function: Normal, Unable to Test Reflexes: NOT DONE Skin: Dry, Normal Color, Warm Peripheral Pulses: 1+ carotid (R), 1+ carotid (L) Lymphatic: No Adenopathy EKG EKG : Pulse Rate (adult): 84 [place]: Normal Cardiac Rhythm: NSR Was a procedure done? Was a procedure done?: No CP Differential Dx Differential Diagnosis: Anxiety / Panic Attack, Electrolyte Disorder, OK, Renal Failure Differential Diagnosis: CHF Differential Diagnosis: Myocardial Infarction, Pneumonia X-Ray, Labs, Meds, VS Vital Signs Date Time Temp Pulse Resp B/P (MAP) Pulse Ox O2 Delivery O2 Flow Rate FiO2 08/16/24 12:50 88 11 93 Room Air* 0 21 08/16/24 12:50 88 11 80/45 (57) 93 08/16/24 11:40 84 08/16/24 11:21 84 08/16/24 10:19 97.1 91 16 96/59 (71) 99 97.1 08/16/24 09:55 98.7 112 16 84/58 (67) 97 98.7 Lab Test 08/16/24 14:23 08/16/24 12:21 08/16/24 10:47 Range/Units Lactic Acid Level 2.1 *H 3.1 *H 0.4-2.0 mmol/L White Blood Count 4.4 4.4-10.8 10^3/uL Red Blood Count 2.40 L 4.5-5.90 10^6/uL Hemoglobin 7.0 *L 13.5-17.5 g/dL Hematocrit 21.0 L 41.0-53.0 % Mean Corpuscular Volume 87.4 80.0-100.0 fL Mean Corpuscular Hemoglobin 29.2 28.0-32.0 pg Mean Corpuscular Hemoglobin Concent 33.4 32.0-36.0 g/dL Red Cell Distribution Width 14.5 H 11.8-14.3 % Platelet Count 63 L 140-450 10^3/uL Mean Platelet Volume 9.9 6.9-10.8 fL Neutrophils (%) (Auto) 76.5 37.0-80.0 % Lymphocytes (%) (Auto) 14.7 10.0-50.0 % Monocytes (%) (Auto) 2.7 0.0-12.0 % Eosinophils (%) (Auto) 4.1 0.0-7.0 % Basophils (%) (Auto) 2.0 0.0-2.0 % Neutrophils # (Auto) 3.4 1.6-8.6 10 ^3/uL Lymphocytes # (Auto) 0.6 0.4-5.4 10 ^3/uL Monocytes # (Auto) 0.1 0-1.3 10 ^3/uL Eosinophils # (Auto) 0.2 0-0.8 10 ^3/uL Basophils # (Auto) 0.1 0-0.2 10 ^3/uL Nucleated Red Blood Cells 0.1 % Platelet Estimate Decreased Red Blood Cell Morphology Normal Prothrombin Time 12.2 H 9.3-11.8 sec Prothrombin Time INR 1.17 H 0.9-1.15 Activated Partial Thromboplast Time 28.8 24.5-34.5 SEC D-Dimer, Quantitative 0.40 0.0-0.49 mg/L FEU Sodium Level 139 136-145 mmol/L Potassium Level 3.4 L 3.5-5.1 mmol/L Chloride Level 108 H 98-107 mmol/L Carbon Dioxide Level 18 L 20-31 mmol/L Anion Gap 13 5-15 Blood Urea Nitrogen 11 9-23 mg/dL Creatinine 0.64 L 0.700-1.30 mg/dL Glomerular Filtration Rate Calc 104 >90 mL/min BUN/Creatinine Ratio 17.2 10.0-20.0 Serum Glucose 78 74-106 mg/dL Calcium Level 8.8 8.7-10.4 mg/dL Magnesium Level 2.0 1.6-2.6 mg/dL Total Bilirubin 0.5 0.2-1.0 mg/dL Aspartate Amino Transferase (AST) 28 13-40 U/L Alanine Aminotransferase (ALT) 68 H 7-40 U/L Alkaline Phosphatase 85 46-116 U/L Troponin I High Sensitivity < 3 L </=54 ng/L Total Protein 7.6 5.7-8.2 g/dL Albumin 3.8 3.2-4.8 g/dL Current Medications Medications (Trade) Dose Ordered Sig/Fabricio Route Start Time Stop Time Status Last Admin Sodium Chloride 1,000 ml @ 1,000 mls/hr Q1H ONCE IV 08/16/24 10:45 08/16/24 11:44 DC 08/16/24 10:58 Ceftriaxone Sodium 50 ml @ 100 mls/hr ONCE ONCE IV 08/16/24 10:45 08/16/24 11:14 DC 08/16/24 10:59 X-Ray, Labs, Meds, VS Comment Course in the emergency department eventful patient came in because of hypotension The heart rate is 112 the blood pressure is 84/58 Chest x-ray is normal EKG shows normal sinus rhythm at 84 CBC 4400 with 76.6% neutrophils H&H 7.0 and 21 platelet count 63 INR 1.17 D-dimer 0.40 CMP normal except for potassium of 3.4 Lactic acid elevated at 3.1 and 2.1 Troponin less than 3.0 Patient will be admitted for further care Time of 1ST Reevaluation: 10:55 Reevaluation 1ST: Unchanged Time of 2ND Reevaluation: 15:39 Reevaluation 2ND: Improved Patient Education/Counseling: Diagnosis, Treatment, Prognosis Family Education/Counseling: Diagnosis, Treatment, Prognosis, No Family Present Sepsis Sepsis Reasesment Focused Exam Orders: Laboratory Tests 08/16/24 12:21: Lactic Acid Level 3.1 08/16/24 14:23: Lactic Acid Level 2.1 Departure 1 Departure Time of Disposition: 15:39 Impression: Primary Impression: Generalized weakness Additional Impressions: History of prostate cancer Severe anemia Swelling of right lower extremity Thrombocytopenia Hypokalemia Bipolar disorder Qualified Codes: F31.32 - Bipolar disorder, current episode depressed, moderate Sepsis Qualified Codes: A41.9 - Sepsis, unspecified organism Disposition: ADMITTED INPATIENT Condition: Serious Critical Care Note Critical Care Time?: No Stability Stability form required: Yes Unstable for transfer: Telemetry monitoring (Telemetry monitoring required), Requires medication (Requires Med for stabilization) Heart Score Heart Score: Heart Score Response (Comments) Value History Slightly Suspicious 0 EKG Normal 0 Age >65 2 Risk Factors 1 or 2 risk factors 1 Troponin Normal limit 0 Total 3 I personally scribed for BERNICE COTA MD ([email or web address]) on 08/16/24 at 10:45. Electronically submitted by Steve Lowe ([email or web address]). BERNICE COTA MD August 16, 2024 10:45
[2024-08-16] MEDS: SODIUM CHLORIDE 0.9% 1,000 ML IV ONE (10:58)
[2024-08-16] MEDS: cefTRIAXone 1GM/50ML D5W 50 ML IV ONE (10:59)
[2024-08-16 11:29] LABS: Basophils # (auto) 0.1 10 ^3/uL (0-0.2); Eosinophils # (auto) 0.2 10 ^3/uL (0-0.8); Lymphocytes # (auto) 0.6 10 ^3/uL (0.4-5.4); Monocytes # (auto) 0.1 10 ^3/uL (0-1.3); Nucleated Red Blood Cells % 0.1 %
[2024-08-16 11:33] LABS: Eosinophils % (auto) 4.1 % (0.0-7.0); Lymphocytes % (auto) 14.7 % (10.0-50.0); Mean Corpuscular Hemoglobin 29.2 pg (28.0-32.0); Mean Corpuscular Hgb Conc. 33.4 g/dL (32.0-36.0); Mean Corpuscular Volume 87.4 fL (80.0-100.0); Monocytes % (auto) 2.7 % (0.0-12.0); Neutrophils # (auto) 3.4 10 ^3/uL (1.6-8.6); Neutrophils % (auto) 76.5 % (37.0-80.0); Platelet Count (auto) 63 10^3/uL (140-450); Red Cell Distribution Width 14.5 % (11.8-14.3); White Blood Cell 4.4 10^3/uL (4.4-10.8)
--- NOTE | 2024-08-16 11:33 | DVH ---
EXAM: XY CHEST PORTABLE HISTORY: weakness COMPARISON: XY CHEST PORTABLE on DOS: 07/09/24, XY CHEST PORTABLE on DOS: 06/18/24, XY CHEST PORTABLE on DOS: 05/18/24, XY CHEST PORTABLE on DOS: 05/07/24, XY CHEST PORTABLE on DOS: 04/24/24 TECHNIQUE: Portable upright AP view of the chest was performed. FINDINGS: No pneumothorax, consolidative infiltrates, or pulmonary edema. The heart is not enlarged. The aortic arch is calcific. The central pulmonary arteries may be ectatic. IMPRESSION: 1. No acute intrathoracic process. 2. Atherosclerotic vascular disease and possible pulmonary arterial hypertension.
[2024-08-16 11:42] LABS: INR 1.17 (0.9-1.15); Partial Thromboplastin Time 28.8 SEC (24.5-34.5); Prothrombin Time 12.2 sec (9.3-11.8)
[2024-08-16 11:43] LABS: Albumin 3.8 g/dL (3.2-4.8); Alkaline Phosphatase 85 U/L (46-116); Anion Gap 13 (5-15); Aspartate Aminotransferase 28 U/L (13-40); BUN/Creatinine Ratio 17.2 (10.0-20.0); Bilirubin, Total 0.5 mg/dL (0.2-1.0); Blood Urea Nitrogen 11 mg/dL (9-23); Calcium 8.8 mg/dL (8.7-10.4); Glucose 78 mg/dL (74-106); Sodium 139 mmol/L (136-145); Total Protein 7.6 g/dL (5.7-8.2)
[2024-08-16 11:49] LABS: Alanine Aminotransferase 68 U/L (7-40); Carbon Dioxide 18 mmol/L (20-31); Chloride 108 mmol/L (98-107); Potassium 3.4 mmol/L (3.5-5.1)
[2024-08-16 12:18] LABS: Platelet Estimate Decreased; RBC Morphology Normal
[2024-08-16 12:57] LABS: Lactic Acid w/Reflex 3.1 mmol/L (0.4-2.0)
[2024-08-16] MEDS ORDERED: MORPHINE SULFATE INJ 2 MG/ml SYRG IV PRN (17:00)
[2024-08-16] MEDS ORDERED: NITROGLYCERIN 0.4 MG SL TAB SL PRN (17:00)
--- NOTE | 2024-08-16 18:46 | DVHHPRES ---
History of Present Illness Resident Creating Document: DANG BROOKS Reason for Visit: severe anemia History of Present Illness 69-year-old male patient with past medical history of myelodysplastic syndrome, prostate cancer status post resection, COPD, schizophrenia, pulmonary hypertension, and previous admissions for severe anemia due to myelodysplastic syndrome who presented to the emergency department with a chief complaint of fatigue and generalized weakness for the past five days, progressively getting worse and consult throughout the day, associated groin pain 8/10 intensity in both size but does not seem to be in distress though, he was recently treated for cellulitis in the right lower leg and patient has been seen by Podiatry who recommended continue antibiotics for two weeks (patient completed the antibiotic treatment ) Patient admits missing appointments recently with Dr. Wanda Haque two weeks ago. No other symptoms were reported patient denies shortness or breath, chest pain, diarrhea, fever. Patient will get 2 units of blood transfusion resume home medications. Past Surgical History Tonsillectomy a 14-year-old Prostatectomy due to prostate cancer Recent skin graft in the right lower ankle Family History: None Smoke: <1 pack per day ALCOHOL: none Drugs: None Lives: Friends Domestic Violence: Neg Review of Systems Constitutional: No: Fever, Chills, Sweats, Weakness, Malaise, Other ENT: No: Ear pain, Ear discharge, Nose pain, Nose discharge, Nose congestion, Mouth pain, Mouth swelling, Throat pain, Throat swelling, Other Respiratory: No: Cough, Dry, Shortness of breath, SOB with excertion, Wheezing, Hemoptysis, Pleuritic Pain, Sputum, Wheezing, Other Cardiovascular: No: Chest Pain, Palpitations, Orthopnea, Paroxysmal Noc. Dyspnea, Edema, Lt Headedness, Other Gastrointestinal: No: Nausea, Vomiting, Abdominal Pain, Diarrhea, Constipation, Melena, Hematochezia, Other Genitourinary: No Dysuria, No Frequency, No Incontinence, No Hematuria, No Retention, No Other Musculoskeletal: other (Groin pain); No: neck pain, shoulder pain, arm pain, back pain, hand pain, leg pain, foot pain Skin: No: Rash, Lesions, Jaundice, Bruising, Other Neurological: No: Weakness, Numbness, Incoordination, Change in speech, Confusion, Seizures, Other Allergies: Coded Allergies: NO KNOWN ALLERGIES (Unverified , 12/04/23) Medications Current Medications Medications Dose Ordered Sig/Fabricio Route Start Time Stop Time Status Last Admin Dose Admin Nitroglycerin 0.4 mg Q5MINP PRN SL 08/16/24 17:00 Morphine Sulfate 2 mg Q30M PRN IV 08/16/24 17:00 Exam Vital Signs Vital Signs Date Time Temp Pulse Resp B/P (MAP) Pulse Ox O2 Delivery O2 Flow Rate FiO2 08/16/24 18:01 87 74/43 (53) 94 08/16/24 14:00 16 08/16/24 12:50 Room Air* 0 21 08/16/24 10:19 97.1 97.1 General Appearance: Alert, Oriented X3, Cooperative, mild distress HEENT: Atraumatic, PERRLA, EOMI, Mucous membr. moist/pink, Other (Jaundice) Respiratory: Clear to auscultation, Normal air movement, Other Cardiovascular: Regular rate, Normal S1, Normal S2, No murmurs Abdominal: Normal bowel sounds, Soft, No tenderness, No hepatospenomegaly Extremities: No clubbing, No cyanosis, No edema, Normal pulses, Other (Skin graft in the right lower ankle and cellulitis in the right lower leg) Skin: No breakdown Neuro: Normal gait, Normal speech, Strength at 5/5 X4 ext, Normal tone, Sensation intact Psych/Mental Status: Mental status NL, Mood NL Labs/Xrays Labs Test 08/16/24 14:23 08/16/24 10:47 Range/Units Lactic Acid Level 2.1 *H 0.4-2.0 mmol/L White Blood Count 4.4 4.4-10.8 10^3/uL Red Blood Count 2.40 L 4.5-5.90 10^6/uL Hemoglobin 7.0 *L 13.5-17.5 g/dL Hematocrit 21.0 L 41.0-53.0 % Mean Corpuscular Volume 87.4 80.0-100.0 fL Mean Corpuscular Hemoglobin 29.2 28.0-32.0 pg Mean Corpuscular Hemoglobin Concent 33.4 32.0-36.0 g/dL Red Cell Distribution Width 14.5 H 11.8-14.3 % Platelet Count 63 L 140-450 10^3/uL Mean Platelet Volume 9.9 6.9-10.8 fL Neutrophils (%) (Auto) 76.5 37.0-80.0 % Lymphocytes (%) (Auto) 14.7 10.0-50.0 % Monocytes (%) (Auto) 2.7 0.0-12.0 % Eosinophils (%) (Auto) 4.1 0.0-7.0 % Basophils (%) (Auto) 2.0 0.0-2.0 % Neutrophils # (Auto) 3.4 1.6-8.6 10 ^3/uL Lymphocytes # (Auto) 0.6 0.4-5.4 10 ^3/uL Monocytes # (Auto) 0.1 0-1.3 10 ^3/uL Eosinophils # (Auto) 0.2 0-0.8 10 ^3/uL Basophils # (Auto) 0.1 0-0.2 10 ^3/uL Nucleated Red Blood Cells 0.1 % Platelet Estimate Decreased Red Blood Cell Morphology Normal Prothrombin Time 12.2 H 9.3-11.8 sec Prothrombin Time INR 1.17 H 0.9-1.15 Activated Partial Thromboplast Time 28.8 24.5-34.5 SEC D-Dimer, Quantitative 0.40 0.0-0.49 mg/L FEU Sodium Level 139 136-145 mmol/L Potassium Level 3.4 L 3.5-5.1 mmol/L Chloride Level 108 H 98-107 mmol/L Carbon Dioxide Level 18 L 20-31 mmol/L Anion Gap 13 5-15 Blood Urea Nitrogen 11 9-23 mg/dL Creatinine 0.64 L 0.700-1.30 mg/dL Glomerular Filtration Rate Calc 104 >90 mL/min BUN/Creatinine Ratio 17.2 10.0-20.0 Serum Glucose 78 74-106 mg/dL Calcium Level 8.8 8.7-10.4 mg/dL Magnesium Level 2.0 1.6-2.6 mg/dL Total Bilirubin 0.5 0.2-1.0 mg/dL Aspartate Amino Transferase (AST) 28 13-40 U/L Alanine Aminotransferase (ALT) 68 H 7-40 U/L Alkaline Phosphatase 85 46-116 U/L Troponin I High Sensitivity < 3 L </=54 ng/L Total Protein 7.6 5.7-8.2 g/dL Albumin 3.8 3.2-4.8 g/dL Assessment/Plan Assessment/Plan Assessment: Severe anemia likely due to myelodysplastic syndrome thrombocytopenia Lactic acidosis improving Right lower leg cellulitis status post skin graft Moderate Bilateral groin pain for the past month History of prostate cancer status post prostatectomy Schizophrenia currently well controlled on risperidone Hypotension COPD, well controlled on albuterol PRN. Pulmonary hypertension based on previous echocardiogram RVSP 42 mmHg Plan Admit to inpatient telemetry Two red blood cell packages transfusion IV fluids, maintenance Resume home medications Dressing changes Wound care consult H&H monitor clear liquid diet , advance as tolerated stool occult blood test monitor platelets levels UDS Case discussed with Dr. Smiely Code status: Full code Plan discussed with: Patient My Orders Orders - DANG BROKOS RESIDENT Procedure Category Date Status Time Admit ADMIT 08/16/24 Transmitted 16:47 Allergies KATIA 08/16/24 In Process 16:47 Code Status CODE 08/16/24 Transmitted 16:47 Complete Blood Count LAB 08/17/24 Verified 04:00 Comprehensive LAB 08/17/24 Verified Metabolic Panel 04:00 Npo (Nothing By DIET 08/16/24 Transmitted Mouth) Diet Dinner Condition: Unstable KATIA 08/16/24 In Process 16:47 Nitroglycerin PHA 08/16/24 In Process Sublingual (Ntrostat 17:00 Morphine Sulfate PHA 08/16/24 In Process Injection 17:00 Oxygen By Nasal RT 08/16/24 Transmitted Cannula 16:47 Stat Ekg For Chest KATIA 08/16/24 In Process Pain 16:47 Notify Md Of Changes KATIA 08/16/24 In Process From Base 16:47 Piece Jobber For KATIA 08/16/24 In Process 24 Hours 16:47 Emergency Dysrhythmia KATIA 08/16/24 In Process Protocol 16:47 Rhythm Strips Once KATIA 08/16/24 In Process Every Shift 16:47 Date of Service: August 16, 2024 Billing Provider: VENKAT SMILEY MD Common Visit Codes: [id number] INP/OBS CARE (HIGH) DANG BROOKS RESIDENT August 16, 2024 18:46 VENKAT SMILEY MD August 17, 2024 10:08
[2024-08-16 19:08] LABS: Urine Bacteria None Seen /hpf (None Seen)
[2024-08-16 19:35] LABS: Urine Blood Negative /uL (Negative); Urine Clarity Clear (Clear); Urine Color Yellow (Yellow); Urine Mucus FEW (None Seen); Urine Protein, UAD TRACE (Negative); Urine Specific Gravity 1.025 (1.001-1.035); Urine Squamous Epithelial Cell FEW /hpf (<5); Urine Urobilinogen Normal (Negative); Urine WBC < 1 /HPF (0-3); Urine pH 6.5 (5.0-9.0)
[2024-08-16 19:36] LABS: Amphetamine Screen, Urine Neg (NEGATIVE); Barbiturate Scree,Urine Neg (NEGATIVE); Benzodiazephine Screen, Urine Neg (NEGATIVE); Cannabinoid Screen, Urine Pos (NEGATIVE); Cocaine Screen, Urine Neg (NEGATIVE); Opiate Scree,Urine Neg (NEGATIVE); Phencyclidine Screen, Urine Neg (NEGATIVE)
--- NOTE | 2024-08-16 19:50 | DVH ---
Right lower extremity venous duplex Clinical History: ro dvt Comparison: US RT LOWER DVT on DOS: 05/07/24, US RT LOWER DVT on DOS: 03/28/24, US RT LOWER DVT on DOS: 03/13/24, US RT LOWER DVT on DOS: 03/09/24, US RT LOWER DVT on DOS: 02/06/24 Findings: Duplex Doppler evaluation of the deep venous system of the right lower extremity from the common femo ral vein to the popliteal vein including color Doppler and spectral/pulsed waveform analysis was perf ormed. The common femoral vein demonstrates appropriate compressibility and waveform variability. There is compressibility/patency of the great saphenous vein at the proximal thigh. The femoral vein demonstrates appropriate compressibility and waveform variability. The deep femoral vein demonstrates appropriate compressibility and waveform variability. The popliteal vein demonstrates appropriate compressibility and waveform variability. Impression: No right femoropopliteal venous thrombosis. If clinical concern/symptoms persist or worsen, short-interval follow-up study is suggested.
[2024-08-16] MEDS: MIDODRINE HCL 10 MG TAB PO ONE (19:56)
[2024-08-16] MEDS: POTASSIUM EFFERVESENT TAB 25 MEQ PO ONE (19:56)
[2024-08-16] MEDS: risperiDONE 1 MG TAB PO ONE (19:56)
[2024-08-16] MEDS: MIRTAZAPINE 30 MG TAB PO ONE (19:56)
--- NOTE | 2024-08-16 20:32 | ECG ---
[facility] Test Date: 2024-08-16 Test Time: 11:21:02 Pat Name: MEME ALONSO Department: ED Room: [address] [place] [address] Gender: M [employer]: merlin : 1955 Requested By: BERNICE COTA Order Number: [id number] Reading MD: Davide Villa Measurements Intervals Molt Rate: 84 P: 46 MI: 133 QRS: 64 QRSD: 103 T: 57 QT: 376 QTc: 445 Interpretive Statements Sinus rhythm Electronically Signed On 08-18-2024 22:18:33 PDT by Davide Villa Please click the below link to view image of tracing.
[2024-08-17] VITALS (11 sets, daily range): BP systolic 85–127; BP diastolic 42–69; PULSE 77–105; RESP 14–20; TEMP 97.4–99.8; O2SAT 96–98
[2024-08-17] MEDS: MIDODRINE HCL 10 MG TAB PO ONE (00:42)
[2024-08-17 02:42] LABS: Hematocrit 23.1 % (41.0-53.0); Hemoglobin 7.9 g/dL (13.5-17.5)
[2024-08-17] MEDS: MIDODRINE HCL 10 MG TAB PO SCH (05:07)
[2024-08-17 05:51] LABS: Basophils # (auto) 0 10 ^3/uL (0-0.2); Hemoglobin 8.1 g/dL (13.5-17.5); Lymphocytes # (auto) 0.7 10 ^3/uL (0.4-5.4); Monocytes # (auto) 0.2 10 ^3/uL (0-1.3); Neutrophils # (auto) 4.1 10 ^3/uL (1.6-8.6)
[2024-08-17 05:57] LABS: Basophils % (auto) 0.5 % (0.0-2.0); Eosinophils # (auto) 0.4 10 ^3/uL (0-0.8); Eosinophils % (auto) 6.8 % (0.0-7.0); Hematocrit 23.7 % (41.0-53.0); Lymphocytes % (auto) 13.8 % (10.0-50.0); Mean Corpuscular Hemoglobin 29.6 pg (28.0-32.0); Mean Corpuscular Hgb Conc. 34.1 g/dL (32.0-36.0); Mean Corpuscular Volume 86.6 fL (80.0-100.0); Monocytes % (auto) 3.3 % (0.0-12.0); Neutrophils % (auto) 75.6 % (37.0-80.0); Nucleated Red Blood Cells % 0.1 %; Platelet Count (auto) 58 10^3/uL (140-450); Red Blood Cells 2.73 10^6/uL (4.5-5.90); Red Cell Distribution Width 14.3 % (11.8-14.3); White Blood Cell 5.4 10^3/uL (4.4-10.8)
[2024-08-17 06:06] LABS: Albumin 3.4 g/dL (3.2-4.8); Alkaline Phosphatase 77 U/L (46-116); Anion Gap 6 (5-15); Aspartate Aminotransferase 28 U/L (13-40); BUN/Creatinine Ratio 18.6 (10.0-20.0); Bilirubin, Total 0.8 mg/dL (0.2-1.0); Blood Urea Nitrogen 11 mg/dL (9-23); Calcium 9.2 mg/dL (8.7-10.4); Carbon Dioxide 22 mmol/L (20-31); Glucose 99 mg/dL (74-106); Sodium 138 mmol/L (136-145); Total Protein 6.7 g/dL (5.7-8.2)
[2024-08-17 06:13] LABS: Alanine Aminotransferase 60 U/L (7-40); Chloride 110 mmol/L (98-107)
[2024-08-17] MEDS: risperiDONE 1 MG TAB PO SCH (10:00)
--- NOTE | 2024-08-17 18:06 | DVHPN2 ---
Subjective See in bed and doing well Reviewed: H&P, Labs Changes from previous H/P or p: No Changes ENT: No Ear pain, No Ear discharge, No Nose pain, No Nose discharge, No Nose congestion, No Mouth pain, No Mouth swelling, No Throat pain, No Throat swelling, No Other Cardiovascular: No Chest Pain, No Palpitations, No Orthopnea, No Paroxysmal Noc. Dyspnea, No Edema, No Lt Headedness, No Other Respiratory: No Cough, No Dry, No Shortness of breath, No SOB with excertion, No Wheezing, No Hemoptysis, No Pleuritic Pain, No Sputum, No Other Gastrointestinal: No Nausea, No Vomiting, No Abdominal Pain, No Diarrhea, No Constipation, No Melena, No Hematochezia, No Other Genitourinary: No Dysuria, No Frequency, No Incontinence, No Hematuria, No Retention, No Other Musculoskeletal: other (Groin pain); No neck pain, No shoulder pain, No arm pain, No back pain, No hand pain, No leg pain, No foot pain Skin: No Rash, No Lesions, No Jaundice, No Bruising, No Other Objective Vitals Vital Signs Date Time Temp Pulse Resp B/P (MAP) Pulse Ox O2 Delivery O2 Flow Rate FiO2 08/17/24 17:00 99.8 92 20 110/49 (69) 96 99.8 08/17/24 11:54 Room Air* 0 21 Intake/Output Intake and Output 08/17/24 07:00 Intake Total 2050 ml Output Total 225 ml Balance 1825 ml Intake Oral 0 ml IV Total 1100 ml Tube Feeding 0 ml Blood Product 950 ml Other 0 ml Output Urine Total 225 ml Stool Total 0 ml Urine/Stool Mix 0 ml Gastric Drainage Total 0 ml Emesis 0 ml Chest Tube Drainage Total 0 ml Drainage Total 0 ml Other 0 ml # Voids 2 General Appearance: Alert, Oriented X3 Lungs: Clear to auscultation Cardiovascular: Regular rate, Normal S1, Normal S2 Medications Current Medications Medications Dose Ordered Sig/Fabricio Route Start Time Stop Time Status Last Admin Dose Admin Nitroglycerin 0.4 mg Q5MINP PRN SL 08/16/24 17:00 Morphine Sulfate 2 mg Q30M PRN IV 08/16/24 17:00 Risperidone 2 mg DAILY PO 08/17/24 10:00 08/17/24 10:00 2 MG Midodrine 10 mg TID@0600,1200,1800 PO 08/17/24 06:00 08/17/24 12:40 10 MG Laboratory Results Laboratory Tests 08/17/24 05:06 Chemistry Test 08/17/24 05:06 Albumin 3.4 g/dL (3.2-4.8) Calcium Level 9.2 mg/dL (8.7-10.4) Total Protein 6.7 g/dL (5.7-8.2) LFT Test 08/17/24 05:06 Alanine Aminotransferase (ALT) 60 U/L (7-40) H Alkaline Phosphatase 77 U/L (46-116) Aspartate Amino Transferase (AST) 28 U/L (13-40) Total Bilirubin 0.8 mg/dL (0.2-1.0) Urinalysis Test 08/16/24 18:57 Urine Color Yellow (Yellow) Urine Clarity Clear (Clear) Urine pH 6.5 (5.0-9.0) Urine Specific [place] 1.025 (1.001-1.035) Urine Protein Trace (Negative) H Urine Ketones Negative (Negative) Urine Blood Negative /uL (Negative) Urine Nitrite Negative (Negative) Urine Bilirubin Negative (Negative) Urine Urobilinogen Normal mg/dL (Negative) Urine Leukocyte Esterase Negative /uL (Negative) Urine RBC <1 /hpf (0 - 3) Urine Microscopic WBC < 1 /HPF (0-3) Urine Squamous Epithelial Cells Few /hpf (<5) Urine Bacteria None seen /hpf (None Seen) Urine Mucus Few (None Seen) Urine Glucose Normal mg/dL (Normal) Microbiology Microbiology Date/Time Source Procedure Growth Status 08/16/24 10:47 Blood Blood Culture - Preliminary NO GROWTH AFTER 24 HOURS OF INCUBATION. Resulted Assessment/Plan Assessment/Plan Severe anemia likely due to myelodysplastic syndrome thrombocytopenia Lactic acidosis improving Right lower leg cellulitis status post skin graft Moderate Bilateral groin pain for the past month History of prostate cancer status post prostatectomy Schizophrenia currently well controlled on risperidone Hypotension COPD, well controlled on albuterol PRN. Pulmonary hypertension based on previous echocardiogram RVSP 42 mmHg Getting 2 U PRBC Monitor CBC tomorrow Plan discussed with: Patient My Orders Orders - JAME HOOPER MD Procedure Category Date Status Time Regular Diet DIET 08/17/24 Transmitted Lunch Date of Service: August 17, 2024 Billing Provider: JAME HOOPER MD Common Visit Codes: [id number] INP/OBS CARE(HIGH) JAME HOOPER MD August 17, 2024 18:06
[2024-08-18] VITALS (15 sets, daily range): BP systolic 91–107; BP diastolic 44–70; PULSE 53–98; RESP 14–18; TEMP 97.3–99.7; O2SAT 95–98
[2024-08-18 11:32] LABS: Hemoglobin 7.7 g/dL (13.5-17.5); Lymphocytes # (auto) 0.8 10 ^3/uL (0.4-5.4); Monocytes # (auto) 0.2 10 ^3/uL (0-1.3); Neutrophils # (auto) 3.2 10 ^3/uL (1.6-8.6); Nucleated Red Blood Cells % 0.1 %; Red Blood Cells 2.63 10^6/uL (4.5-5.90); White Blood Cell 4.6 10^3/uL (4.4-10.8)
[2024-08-18 11:34] LABS: Basophils # (auto) 0 10 ^3/uL (0-0.2); Basophils % (auto) 0.2 % (0.0-2.0); Eosinophils # (auto) 0.4 10 ^3/uL (0-0.8); Eosinophils % (auto) 7.8 % (0.0-7.0); Hematocrit 22.8 % (41.0-53.0); Lymphocytes % (auto) 16.8 % (10.0-50.0); Mean Corpuscular Hemoglobin 29.3 pg (28.0-32.0); Mean Corpuscular Hgb Conc. 33.8 g/dL (32.0-36.0); Mean Corpuscular Volume 86.6 fL (80.0-100.0); Monocytes % (auto) 4.7 % (0.0-12.0); Neutrophils % (auto) 70.5 % (37.0-80.0); Platelet Count (auto) 53 10^3/uL (140-450); Red Cell Distribution Width 14.2 % (11.8-14.3)
--- NOTE | 2024-08-18 17:55 | DVHPN2 ---
Subjective See in bed and doing well Reviewed: H&P, Labs Changes from previous H/P or p: No Changes ENT: No Ear pain, No Ear discharge, No Nose pain, No Nose discharge, No Nose congestion, No Mouth pain, No Mouth swelling, No Throat pain, No Throat swelling, No Other Cardiovascular: No Chest Pain, No Palpitations, No Orthopnea, No Paroxysmal Noc. Dyspnea, No Edema, No Lt Headedness, No Other Respiratory: No Cough, No Dry, No Shortness of breath, No SOB with excertion, No Wheezing, No Hemoptysis, No Pleuritic Pain, No Sputum, No Other Gastrointestinal: No Nausea, No Vomiting, No Abdominal Pain, No Diarrhea, No Constipation, No Melena, No Hematochezia, No Other Genitourinary: No Dysuria, No Frequency, No Incontinence, No Hematuria, No Retention, No Other Musculoskeletal: other (Groin pain); No neck pain, No shoulder pain, No arm pain, No back pain, No hand pain, No leg pain, No foot pain Skin: No Rash, No Lesions, No Jaundice, No Bruising, No Other Objective Vitals Vital Signs Date Time Temp Pulse Resp B/P (MAP) Pulse Ox O2 Delivery O2 Flow Rate FiO2 08/18/24 16:31 99.0 89 16 97/55 99.0 08/18/24 16:30 96 08/18/24 08:00 Room Air* 0 21 Intake/Output Intake and Output 08/18/24 07:00 Intake Total 1480 ml Output Total 700 ml Balance 780 ml Intake Oral 1480 ml Output Urine Total 700 ml # Voids 2 # Bowel Movements 1 General Appearance: Alert, Oriented X3 Lungs: Clear to auscultation Cardiovascular: Regular rate, Normal S1, Normal S2 Medications Current Medications Medications Dose Ordered Sig/Fabricio Route Start Time Stop Time Status Last Admin Dose Admin Nitroglycerin 0.4 mg Q5MINP PRN SL 08/16/24 17:00 Morphine Sulfate 2 mg Q30M PRN IV 08/16/24 17:00 Risperidone 2 mg DAILY PO 08/17/24 10:00 08/18/24 09:52 2 MG Midodrine 10 mg TID@0600,1200,1800 PO 08/17/24 06:00 08/18/24 17:52 10 MG Laboratory Results Laboratory Tests 08/17/24 05:06 08/18/24 11:15 Urinalysis Test 08/16/24 18:57 Urine Color Yellow (Yellow) Urine Clarity Clear (Clear) Urine pH 6.5 (5.0-9.0) Urine Specific [place] 1.025 (1.001-1.035) Urine Protein Trace (Negative) H Urine Ketones Negative (Negative) Urine Blood Negative /uL (Negative) Urine Nitrite Negative (Negative) Urine Bilirubin Negative (Negative) Urine Urobilinogen Normal mg/dL (Negative) Urine Leukocyte Esterase Negative /uL (Negative) Urine RBC <1 /hpf (0 - 3) Urine Microscopic WBC < 1 /HPF (0-3) Urine Squamous Epithelial Cells Few /hpf (<5) Urine Bacteria None seen /hpf (None Seen) Urine Mucus Few (None Seen) Urine Glucose Normal mg/dL (Normal) Microbiology Microbiology Date/Time Source Procedure Growth Status 08/16/24 10:47 Blood Blood Culture - Preliminary NO GROWTH AFTER 48 HOURS OF INCUBATION. Resulted Assessment/Plan Assessment/Plan Severe anemia likely due to myelodysplastic syndrome thrombocytopenia Lactic acidosis improving Right lower leg cellulitis status post skin graft Moderate Bilateral groin pain for the past month History of prostate cancer status post prostatectomy Schizophrenia currently well controlled on risperidone Hypotension COPD, well controlled on albuterol PRN. Pulmonary hypertension based on previous echocardiogram RVSP 42 mmHg Getting 2 U PRBC Monitor CBC tomorrow If Hb better tomorrow can be discharged Plan discussed with: Patient My Orders Orders - JAME HOOPER MD Procedure Category Date Status Time Vital Signs KTAIA 08/18/24 In Process 11:53 Date of Service: Aug 18, 2024 Billing Provider: JAME HOOPER MD Common Visit Codes: [id number] INP/OBS CARE(HIGH) JAME HOOPER MD Aug 18, 2024 17:55
[2024-08-19 01:00] VITALS: BP 111/61; PULSE 80; RESP 16; TEMP 97; O2SAT 94
[2024-08-19 05:00] VITALS: BP 100/60; PULSE 73; RESP 16; TEMP 96; O2SAT 96
[2024-08-19 06:57] LABS: Basophils # (auto) 0.1 10 ^3/uL (0-0.2); Eosinophils # (auto) 0.4 10 ^3/uL (0-0.8); Hematocrit 28.1 % (41.0-53.0); Lymphocytes # (auto) 0.7 10 ^3/uL (0.4-5.4); Mean Corpuscular Hemoglobin 29.5 pg (28.0-32.0); Mean Corpuscular Volume 85.2 fL (80.0-100.0); Monocytes # (auto) 0.2 10 ^3/uL (0-1.3); Platelet Count (auto) 51 10^3/uL (140-450)
[2024-08-19 06:58] LABS: Basophils % (auto) 1.6 % (0.0-2.0); Eosinophils % (auto) 8.1 % (0.0-7.0); Hemoglobin 9.8 g/dL (13.5-17.5); Lymphocytes % (auto) 14.5 % (10.0-50.0); Mean Corpuscular Hgb Conc. 34.7 g/dL (32.0-36.0); Monocytes % (auto) 3.7 % (0.0-12.0); Neutrophils # (auto) 3.6 10 ^3/uL (1.6-8.6); Neutrophils % (auto) 72.1 % (37.0-80.0); Red Cell Distribution Width 14.7 % (11.8-14.3)
[2024-08-19 08:30] VITALS: BP 105/59; PULSE 73; RESP 12; TEMP 98; O2SAT 98
--- NOTE | 2024-08-19 12:32 | DVHDS2 ---
Discharge Summary Date of Admission August 16, 2024 at 16:47 Date of Discharge: Aug 19, 2024 Labs/Diagnostic Data: Laboratory Results Test 08/19/24 06:20 08/17/24 05:06 08/16/24 18:57 08/16/24 14:23 White Blood Count 5.0 10^3/uL (4.4-10.8) Red Blood Count 3.30 10^6/uL (4.5-5.90) Hemoglobin 9.8 g/dL (13.5-17.5) Hematocrit 28.1 % (41.0-53.0) Mean Corpuscular Volume 85.2 fL (80.0-100.0) Mean Corpuscular Hemoglobin 29.5 pg (28.0-32.0) Mean Corpuscular Hemoglobin Concent 34.7 g/dL (32.0-36.0) Red Cell Distribution Width 14.7 % (11.8-14.3) Platelet Count 51 10^3/uL (140-450) Mean Platelet Volume 10.1 fL (6.9-10.8) Neutrophils (%) (Auto) 72.1 % (37.0-80.0) Lymphocytes (%) (Auto) 14.5 % (10.0-50.0) Monocytes (%) (Auto) 3.7 % (0.0-12.0) Eosinophils (%) (Auto) 8.1 % (0.0-7.0) Basophils (%) (Auto) 1.6 % (0.0-2.0) Neutrophils # (Auto) 3.6 10 ^3/uL (1.6-8.6) Lymphocytes # (Auto) 0.7 10 ^3/uL (0.4-5.4) Monocytes # (Auto) 0.2 10 ^3/uL (0-1.3) Eosinophils # (Auto) 0.4 10 ^3/uL (0-0.8) Basophils # (Auto) 0.1 10 ^3/uL (0-0.2) Nucleated Red Blood Cells 0.0 % Sodium Level 138 mmol/L (136-145) Potassium Level 4.0 mmol/L (3.5-5.1) Chloride Level 110 mmol/L (98-107) Carbon Dioxide Level 22 mmol/L (20-31) Anion Gap 6 (5-15) Blood Urea Nitrogen 11 mg/dL (9-23) Creatinine 0.59 mg/dL (0.700-1.30) Glomerular Filtration Rate Calc 106 mL/min (>90) BUN/Creatinine Ratio 18.6 (10.0-20.0) Serum Glucose 99 mg/dL (74-106) Calcium Level 9.2 mg/dL (8.7-10.4) Total Bilirubin 0.8 mg/dL (0.2-1.0) Aspartate Amino Transferase (AST) 28 U/L (13-40) Alanine Aminotransferase (ALT) 60 U/L (7-40) Alkaline Phosphatase 77 U/L (46-116) Total Protein 6.7 g/dL (5.7-8.2) Albumin 3.4 g/dL (3.2-4.8) Urine Color Yellow (Yellow) Urine Clarity Clear (Clear) Urine pH 6.5 (5.0-9.0) Urine Specific [place] 1.025 (1.001-1.035) Urine Protein Trace (Negative) Urine Ketones Negative (Negative) Urine Blood Negative /uL (Negative) Urine Nitrite Negative (Negative) Urine Bilirubin Negative (Negative) Urine Urobilinogen Normal mg/dL (Negative) Urine Leukocyte Esterase Negative /uL (Negative) Urine RBC <1 /hpf (0 - 3) Urine Microscopic WBC < 1 /HPF (0-3) Urine Squamous Epithelial Cells Few /hpf (<5) Urine Bacteria None seen /hpf (None Seen) Urine Mucus Few (None Seen) Urine Glucose Normal mg/dL (Normal) Urine Opiates Screen Neg (NEGATIVE) Urine Fentanyl Screen Neg (NEGATIVE) Urine Barbiturates Screen Neg (NEGATIVE) Urine Phencyclidine Screen Neg (NEGATIVE) Urine Amphetamines Screen Neg (NEGATIVE) Urine Benzodiazepines Screen Neg (NEGATIVE) Urine Cocaine Screen Neg (NEGATIVE) Urine Cannabinoids Screen Pos (NEGATIVE) Lactic Acid Level 2.1 mmol/L (0.4-2.0) Test 08/16/24 10:47 Platelet Estimate Decreased Red Blood Cell Morphology Normal Prothrombin Time 12.2 sec (9.3-11.8) Prothrombin Time INR 1.17 (0.9-1.15) Activated Partial Thromboplast Time 28.8 SEC (24.5-34.5) D-Dimer, Quantitative 0.40 mg/L FEU (0.0-0.49) Magnesium Level 2.0 mg/dL (1.6-2.6) Troponin I High Sensitivity < 3 ng/L (</=54) Other Laboratory Tests 08/19/24 06:20 08/17/24 05:06 Brief Hx & Hospital Course: Patient is a 69-year-old gentleman with myelodysplastic syndrome with numerous hospital admissions for blood transfusion due to anemia. Patient was transfused PRBC. Hemoglobin stable at this time will be discharged home. Notably patient does have right ankle swelling which patient was seen in Podiatry consult previously, patient needs to follow outpatient with Podiatry Clinic. Condition at Discharge: Poor Final Diagnosis/Problems List Severe anemia likely due to myelodysplastic syndrome thrombocytopenia Lactic acidosis improving Right lower leg cellulitis status post skin graft History of prostate cancer status post prostatectomy Schizophrenia currently well controlled on risperidone Hypotension COPD, well controlled on albuterol PRN. Pulmonary hypertension based on previous echocardiogram RVSP 42 mmHg Discharge Disposition: Home Discharge Instruct/Medications Diet: Regular Activity: Light activity Follow Up/Referral: Dr. Bell Medications: Resume Home MEds Discharge Statement: "Patient was advised to return to the ER or call 911 if any headaches, dizziness, shortness of breath, chest pain, abdominal pain, bleeding, fevers, or worsening of medical condition. Patient was counseled about treatment plan, medications, possible side effects, patientverbalized understanding. All questions were answered to the best of my ability. This discharge took greater then 30 minutes in planning, reviewing documentation, counseling the patient, and discussing with other team members." ASSESSMENT ASSESSMENT Assessment Date of Service: Aug 19, 2024 Billing Provider: VENKAT SMILEY MD Common Visit Codes: [id number] DISCH DAY >30min VENKAT SMILEY MD Aug 19, 2024 12:32
[2024-08-19 13:55] VITALS: BP 118/64; PULSE 86; RESP 16; TEMP 36.7; O2SAT 97
== END 2024-08-19 15:10 | disposition home or self-care (01) | DRG 812 ==
LOC: ER 09:52 → OVERFLOW 16:47 → TELE-EAST 08-17 11:01
PROVIDERS: ADMIT Internal Medicine; ATTEND Internal Medicine
PROC: 30233N1 Transfusion of Nonautologous Red Blood Cells into Peripheral Vein, Percutaneous Approach (ICD-10-PCS; principal; 2024-08-18)
DX: D46.9 Myelodysplastic syndrome, unspecified (principal); E87.20 Acidosis, unspecified; L03.115 Cellulitis of right lower limb; E87.6 Hypokalemia; D69.6 Thrombocytopenia, unspecified; I27.20 Pulmonary hypertension, unspecified; J44.9 Chronic obstructive pulmonary disease, unspecified; F20.9 Schizophrenia, unspecified; R10.31 Right lower quadrant pain; F31.9 Bipolar disorder, unspecified; R10.32 Left lower quadrant pain; F17.210 Nicotine dependence, cigarettes, uncomplicated; Z79.891 Long term (current) use of opiate analgesic; Z79.1 Long term (current) use of non-steroidal anti-inflammatories (NSAID); Z79.899 Other long term (current) drug therapy; Z85.46 Personal history of malignant neoplasm of prostate; Z90.79 Acquired absence of other genital organ(s)
CPT/HCPCS: 36415; 36430; 71045; 80053; 80307; 81001; 83605; 83735; 84484; 85014; 85018; 85025; 85379; 85610; 85730; 86850; 86900; 86901; 86902; 86922; 87040; 93005; 93971; G0378

== ENCOUNTER → 2024-08-23 | Outpatient (CLI) | payer OTHER, MEDICAID ==
[2024-08-23 12:54] LABS: Erythrocyte Sedimentation Rate 99 mm/hr (0-20)
[2024-08-23 13:22] LABS: Creatinine, Urine 252.71 mg/dL (30.0-125.0)
== END | disposition home or self-care (01) ==
LOC: LAB 11:41
PROVIDERS: ATTEND Internal Medicine
DX: I10 Essential (primary) hypertension (principal); E78.5 Hyperlipidemia, unspecified; L89.892 Pressure ulcer of other site, stage 2; Z12.11 Encounter for screening for malignant neoplasm of colon; Z79.899 Other long term (current) drug therapy
CPT/HCPCS: 36415; 80061; 82043; 82306; 82570; 82607; 83036; 85652; 86141

== ENCOUNTER 2024-08-27 06:18 | Emergency (ER) | payer OTHER, MEDICAID ==
[~2024-08-27] VITALS: Ht 180.3 cm; Wt 71.5 kg
[2024-08-27 07:08] LABS: Basophils # (auto) 0.1 10 ^3/uL (0-0.2); Basophils % (auto) 1.6 % (0.0-2.0); Eosinophils # (auto) 0.3 10 ^3/uL (0-0.8); Eosinophils % (auto) 4.7 % (0.0-7.0); Hematocrit 27.4 % (41.0-53.0); Hemoglobin 9.2 g/dL (13.5-17.5); Lymphocytes # (auto) 0.7 10 ^3/uL (0.4-5.4); Lymphocytes % (auto) 10.6 % (10.0-50.0); Mean Corpuscular Hemoglobin 29.2 pg (28.0-32.0); Mean Corpuscular Hgb Conc. 33.6 g/dL (32.0-36.0); Mean Corpuscular Volume 87.1 fL (80.0-100.0); Monocytes # (auto) 0.2 10 ^3/uL (0-1.3); Monocytes % (auto) 3.4 % (0.0-12.0); Neutrophils # (auto) 5.2 10 ^3/uL (1.6-8.6); Neutrophils % (auto) 79.7 % (37.0-80.0); Red Blood Cells 3.14 10^6/uL (4.5-5.90); Red Cell Distribution Width 14.9 % (11.8-14.3); White Blood Cell 6.6 10^3/uL (4.4-10.8)
[2024-08-27 07:12] LABS: Sodium 139 mmol/L (136-145)
[2024-08-27 07:13] LABS: Anion Gap 9 (5-15); Carbon Dioxide 21 mmol/L (20-31)
[2024-08-27 07:14] LABS: Calcium 8.9 mg/dL (8.7-10.4)
[2024-08-27 07:19] LABS: BUN/Creatinine Ratio 19.4 (10.0-20.0); Blood Urea Nitrogen 13 mg/dL (9-23); Platelet Count (auto) 87 10^3/uL (140-450)
[2024-08-27 07:21] LABS: Chloride 109 mmol/L (98-107); Glucose 115 mg/dL (74-106); Potassium 3.4 mmol/L (3.5-5.1)
--- NOTE | 2024-08-27 07:47 | ED.PDOC ---
History of Present Illness HPI Comments 69 y/o M, with PMHx of anemia, COPD, and HLD presents to the ED for CC of abnormal labs. Patient reports, to ED for weekly c/o abnormal labs with blood transfusion; endorses increased dizziness and fatigue x1week. Patient denies active bleeding, fever, chills, melena, or N/V/D. No other symptoms or modifyin g factors present at this time. Chief Complaint: Abnormal LAB's Time Seen by MD: 07:05 Primary Care Provider: MADDIE Reviewed Notes: Nurses Notes, Medications, Allergies Allergies: Coded Allergies: NO KNOWN ALLERGIES (Unverified , 12/04/23) Home Meds Active Scripts Midodrine Hcl (Midodrine Hcl) 10 Mg Tab, 10 MG PO TID for 30 Days, #90 TAB 3 Refills Prov:YOANDY SALAS NP 06/06/24 Hydrocortone (Hydrocortisone 1%) 1 Applic Ap, 1 APPLIC TOP BID, #30 GRAMS Prov:JUAN ROGERS MD 02/08/24 Reported Medications Furosemide (Furosemide) 40 Mg Tab, 1 TAB PO DAILY 07/02/24 Hydrocodone-Acetaminophen (Hydrocodone Bitartrate/AC 10-325 mg) 1 Tab Tab, 1 TAB PO, TAB 06/18/24 Risperidone (Risperidone) 2 Mg Tab, 2 MG PO BID, TAB 12/05/23 Nicotine (Nicoderm 21MG/24HR) 1 Patch Ph, 1 PATCH TOP DAILY, #28 PATCH 1 Refill 12/05/23 Mirtazapine (Mirtazapine Oral Disintegrating Tablet) 45 Mg Tab, 1 TAB PO QPM, #30 TAB 1 Refill 12/05/23 Melatonin (KP MELATONIN) 3 Mg Tab, 3 MG PO HS, TAB 12/05/23 Gabapentin (Gabapentin) 600 Mg Tab, 600 MG PO BID, TAB 12/05/23 Fluticasone Furoate (Inhalatio (Arnuity Ellipta) 200 Mcg/Act Inh, 200 MCG IN, INHALER 12/05/23 Atorvastatin Calcium (ATORVASTATIN CALCIUM) 40 Mg Tab, 1 TAB PO DAILY, #30 TAB 5 Refills 12/05/23 Albuterol Sulfate (VENTOLIN MDI) 90 Mcg Ih, 90 MCG IN, INH 12/05/23 Information Source: Patient Mode of Arrival: Ambulatory Severity: Moderate Timing: Minutes Duration: Since onset Prehospital treatment: None Past Medical History PAST MEDICAL HISTORY: Anemia, COPD, High Lipids Surgical History: Tonsillectomy Family History Family History: Reviewed,noncontributory to illness, Unknown Social History Smoker: Cigarettes, Less Than 1 Pack/Day Alcohol: Occasionally Drugs: Denies Drug Use Lives In: Home Constitutional: reports: fatigue; denies: chills, diaphoresis, fever, malaise, sweats, weakness, others EENTM: denies: blurred vision, double vision, ear bleeding, ear discharge, ear drainage, ear pain, ear ringing, eye pain, eye redness, hearing loss, mouth pain, mouth swelling, nasal discharge, nose bleeding, nose congestion, nose pain, photophobia, tearing, throat pain, throat swelling, voice changes, others Respiratory: denies: cough, hemoptysis, orthopnea, SOB at rest, shortness of breath, SOB with excertion, stridor, wheezing, others Cardiovascular: denies: chest pain, dizzy spells, diaphoresis, Dyspnea on exertion, edema, irregular heart beat, left arm pain, lightheadedness, palpitations, PND, syncope, others Gastrointestinal: denies: abdomen distended, abdominal pain, blood streaked bowels, constipated, diarrhea, dysphagia, difficulty swallowing, hematemesis, melena, nausea, poor appetite, poor fluid intake, rectal bleeding, rectal pain, vomiting, others Genitourinary: denies: burning, dysuria, flank pain, frequency, hematuria, incontinence, penile discharge, penile sore, pain, testicle pain, testicle swelling, urgency, others Neurological: reports: dizziness; denies: fainting, headache, left sided numbness, left sided weakness, numbness, paresthesia, pre-existing deficit, right sided numbness, right sided weakness, seizure, speech problems, tingling, tremors, weakness, others Musculoskeletal: denies: back pain, gout, joint pain, joint swelling, muscle pain, muscle stiffness, neck pain, others Integumetry: denies: bruises, change in color, change in hair/nails, dryness, laceration, lesions, lumps, rash, wounds, others Allergic/Immunocompromised: denies: Difficulty Healing, Frequent Infections, Hives, Itching, others Hematologic/Lymphatic: denies: anemia, blood clots, easy bleeding, easy bruising, swollen glands, others Endocrine: denies: excessive hunger, excessive sweating, excessive thirst, excessive urination, flushing, intolerance to cold, intolerance to heat, unexplained weight gain, unexplained weight loss, others Psychiatric: denies: anxiety, bipolar disorder, depression, hopeless, panic disorder, schizophrenia, sleepless, suicidal, others All Other Systems: Reviewed and Negative Physical Exam General Appearance: No Apparent Distress, Normal HEENT: Normal ENT Inspection, Pharynx Normal, TMs Normal Neck: Full Range of Motion, Non-Tender, Normal, Normal Inspection Respiratory: Chest Non-Tender, Lungs Clear, No Accessory Muscle Use, No Respiratory Distress, Normal Breath Sounds Cardiovascular: No Edema, No JVD, No Murmur, No Gallop, Normal Peripheral Pulses, Regular Rate/Rhythm Breast Exam: Deferred Gastrointestinal: No Organomegaly, Non Tender, No Pulsatile Mass, Normal Bowel Sounds, Soft Genitalia: Deferred Pelvic: Deferred Rectal: Deferred Extremities: No calf tenderness, Normal capillary refill, Normal inspection, Normal range of motion, Non-tender, No pedal edema Musculoskeletal : Apperance: Normal Neurologic: Alert, beading sawyer II-XII nml as Tested, No Motor Deficits, Normal Affect, Normal Mood, No Sensory Deficits Cerebellar Function: Normal Reflexes: Normal Skin: Dry, Normal Color, Warm Lymphatic: No Adenopathy Was a procedure done? Was a procedure done?: No Differential Dx Considerations may include: anemia, dehydration, electrolyte imbalance X-Ray, Labs, Meds, VS Vital Signs Date Time Temp Pulse Resp B/P (MAP) Pulse Ox O2 Delivery O2 Flow Rate FiO2 08/27/24 06:27 98.4 106 18 102/69 (80) 99 98.4 Lab Test 08/27/24 06:54 Range/Units White Blood Count 6.6 4.4-10.8 10^3/uL Red Blood Count 3.14 L 4.5-5.90 10^6/uL Hemoglobin 9.2 L 13.5-17.5 g/dL Hematocrit 27.4 L 41.0-53.0 % Mean Corpuscular Volume 87.1 80.0-100.0 fL Mean Corpuscular Hemoglobin 29.2 28.0-32.0 pg Mean Corpuscular Hemoglobin Concent 33.6 32.0-36.0 g/dL Red Cell Distribution Width 14.9 H 11.8-14.3 % Platelet Count 87 L 140-450 10^3/uL Mean Platelet Volume 9.4 6.9-10.8 fL Neutrophils (%) (Auto) 79.7 37.0-80.0 % Lymphocytes (%) (Auto) 10.6 10.0-50.0 % Monocytes (%) (Auto) 3.4 0.0-12.0 % Eosinophils (%) (Auto) 4.7 0.0-7.0 % Basophils (%) (Auto) 1.6 0.0-2.0 % Neutrophils # (Auto) 5.2 1.6-8.6 10 ^3/uL Lymphocytes # (Auto) 0.7 0.4-5.4 10 ^3/uL Monocytes # (Auto) 0.2 0-1.3 10 ^3/uL Eosinophils # (Auto) 0.3 0-0.8 10 ^3/uL Basophils # (Auto) 0.1 0-0.2 10 ^3/uL Nucleated Red Blood Cells 0.0 % Sodium Level 139 136-145 mmol/L Potassium Level 3.4 L 3.5-5.1 mmol/L Chloride Level 109 H 98-107 mmol/L Carbon Dioxide Level 21 20-31 mmol/L Anion Gap 9 5-15 Blood Urea Nitrogen 13 9-23 mg/dL Creatinine 0.67 L 0.700-1.30 mg/dL Glomerular Filtration Rate Calc 102 >90 mL/min BUN/Creatinine Ratio 19.4 10.0-20.0 Serum Glucose 115 H 74-106 mg/dL Calcium Level 8.9 8.7-10.4 mg/dL Time of 1ST Reevaluation: 07:35 Reevaluation 1ST: Unchanged Patient Education/Counseling: Diagnosis, Treatment Family Education/Counseling: No Family Present Departure 1 Departure Time of Disposition: 08:29 (Patient is feeling better. His hemoglobin is 9.2. P atient would like to go home.) Impression: Primary Impression: MDS (myelodysplastic syndrome) Disposition: 01 HOME / SELF CARE / HOMELESS Condition: Stable Additional Instructions: Your hemoglobin today was 9.2. Discharged With: Self Critical Care Note Critical Care Time?: No Stability Stability form required: No Heart Score Heart Score: Heart Score Response (Comments) Value History N/A 0 EKG N/A 0 Age N/A 0 Risk Factors N/A 0 Troponin N/A 0 Total 0 I personally scribed for RAYRAY PAPPAS MD ([email or web address]) on 08/27/24 at 07:47. Electronically submitted by Maria Elena Barton ([email or web address]). RAYRAY PAPPAS MD Aug 27, 2024 07:47
[2024-08-27 08:42] VITALS: BP 128/66; PULSE 89; RESP 18; TEMP 98.1; O2SAT 98
== END 2024-08-27 08:48 | disposition home or self-care (01) ==
LOC: ER 06:18
DX: D46.9 Myelodysplastic syndrome, unspecified (principal); R79.9 Abnormal finding of blood chemistry, unspecified; E78.5 Hyperlipidemia, unspecified; F17.210 Nicotine dependence, cigarettes, uncomplicated; Z79.899 Other long term (current) drug therapy; Z90.89 Acquired absence of other organs
CPT/HCPCS: 36415; 80048; 85025

== ENCOUNTER 2024-09-03 05:55 | Inpatient (IN) | payer OTHER, MEDICAID ==
[2024-09-03] VITALS (13 sets, daily range): BP systolic 84–101; BP diastolic 52–65; PULSE 80–106; RESP 15–19; TEMP 98–98.9; O2SAT 98–100
[~2024-09-03] VITALS: Ht 180.3 cm; Wt 75.5 kg
--- NOTE | 2024-09-03 06:15 | ED.PDOC ---
History of Present Illness HPI Comments 69 year old male with a Hx of myelodysplastic Syndrome presents to the ED for the c/c of Generalized Weakness. Pt is noted to come to [facility] every Monday for a blood work-up, and notes he wants to be admitted to the hospital if his blood work comes back irregular. No other associated symptoms, modifiers, recent injuries or sick contacts present at this time. Time Seen by MD: 06:10 Primary Care Provider: MADDIE Reviewed Notes: Nurses Notes, Medications, Allergies Allergies: Coded Allergies: NO KNOWN ALLERGIES (Unverified , 12/04/23) Home Meds Active Scripts Midodrine Hcl (Midodrine Hcl) 10 Mg Tab, 10 MG PO TID for 30 Days, #90 TAB 3 Refills Prov:YOANDY SALAS NP 06/06/24 Hydrocortone (Hydrocortisone 1%) 1 Applic Ap, 1 APPLIC TOP BID, #30 GRAMS Prov:JUAN ROGERS MD 02/08/24 Reported Medications Aspirin (Aspirin Low Dose) 81 Mg Tab, 1 TAB PO DAILY 09/03/24 Furosemide (Furosemide) 40 Mg Tab, 1 TAB PO DAILY 07/02/24 Hydrocodone-Acetaminophen (Hydrocodone Bitartrate/AC 10-325 mg) 1 Tab Tab, 1 TAB PO, TAB 06/18/24 Risperidone (Risperidone) 2 Mg Tab, 2 MG PO BID, TAB 12/05/23 Nicotine (Nicoderm 21MG/24HR) 1 Patch Ph, 1 PATCH TOP DAILY, #28 PATCH 1 Refill 12/05/23 Mirtazapine (Mirtazapine Oral Disintegrating Tablet) 45 Mg Tab, 1 TAB PO QPM, #30 TAB 1 Refill 12/05/23 Melatonin (KP MELATONIN) 3 Mg Tab, 3 MG PO HS, TAB 12/05/23 Gabapentin (Gabapentin) 600 Mg Tab, 600 MG PO BID, TAB 12/05/23 Fluticasone Furoate (Inhalatio (Arnuity Ellipta) 200 Mcg/Act Inh, 200 MCG IN, INHALER 12/05/23 Atorvastatin Calcium (ATORVASTATIN CALCIUM) 40 Mg Tab, 1 TAB PO DAILY, #30 TAB 5 Refills 12/05/23 Albuterol Sulfate (VENTOLIN MDI) 90 Mcg Ih, 90 MCG IN, INH 12/05/23 Information Source: Patient Mode of Arrival: Ambulatory Severity: Moderate Timing: Days Duration: Since onset, Days Prehospital treatment: None Past Medical History PAST MEDICAL HISTORY: Anemia, COPD, High Lipids Surgical History: Tonsillectomy Family History Family History: Reviewed,noncontributory to illness, Unknown Social History Smoker: Cigarettes, Less Than 1 Pack/Day Alcohol: Occasionally Drugs: Denies Drug Use Lives In: Home Constitutional: denies: chills, diaphoresis, fatigue, fever, malaise, sweats, weakness, others EENTM: denies: blurred vision, double vision, ear bleeding, ear discharge, ear drainage, ear pain, ear ringing, eye pain, eye redness, hearing loss, mouth pain, mouth swelling, nasal discharge, nose bleeding, nose congestion, nose pain, photophobia, tearing, throat pain, throat swelling, voice changes, others Respiratory: denies: cough, hemoptysis, orthopnea, SOB at rest, shortness of breath, SOB with excertion, stridor, wheezing, others Cardiovascular: denies: chest pain, dizzy spells, diaphoresis, Dyspnea on exertion, edema, irregular heart beat, left arm pain, lightheadedness, palpitations, PND, syncope, others Gastrointestinal: denies: abdomen distended, abdominal pain, blood streaked bowels, constipated, diarrhea, dysphagia, difficulty swallowing, hematemesis, melena, nausea, poor appetite, poor fluid intake, rectal bleeding, rectal pain, vomiting, others Genitourinary: denies: burning, dysuria, flank pain, frequency, hematuria, incontinence, penile discharge, penile sore, pain, testicle pain, testicle swelling, urgency, others Neurological: denies: dizziness, fainting, headache, left sided numbness, left sided weakness, numbness, paresthesia, pre-existing deficit, right sided numbness, right sided weakness, seizure, speech problems, tingling, tremors, weakness, others Musculoskeletal: denies: back pain, gout, joint pain, joint swelling, muscle pain, muscle stiffness, neck pain, others Integumetry: denies: bruises, change in color, change in hair/nails, dryness, laceration, lesions, lumps, rash, wounds, others Allergic/Immunocompromised: denies: Difficulty Healing, Frequent Infections, Hives, Itching, others Hematologic/Lymphatic: denies: anemia, blood clots, easy bleeding, easy bruising, swollen glands, others Endocrine: denies: excessive hunger, excessive sweating, excessive thirst, excessive urination, flushing, intolerance to cold, intolerance to heat, unexplained weight gain, unexplained weight loss, others Psychiatric: denies: anxiety, bipolar disorder, depression, hopeless, panic disorder, schizophrenia, sleepless, suicidal, others All Other Systems: Reviewed and Negative Physical Exam General Appearance: Mild Distress, Normal, Other (Chronic ill appearing) HEENT: Normal ENT Inspection, Pharynx Normal, TMs Normal Neck: Full Range of Motion, Non-Tender, Normal Respiratory: Chest Non-Tender, Lungs Clear, No Accessory Muscle Use, No Re spiratory Distress, Normal Breath Sounds Cardiovascular: No Edema, No JVD, Normal Peripheral Pulses, Regular Rate/Rhythm Breast Exam: Deferred Gastrointestinal: Non Tender, No Pulsatile Mass, Normal Bowel Sounds, Soft Genitalia: Deferred Pelvic: Deferred Rectal: Deferred Extremities: No calf tenderness, Normal capillary refill, Normal inspection, Non-tender, No pedal edema Musculoskeletal : Apperance: Normal Neurologic: Alert, No Motor Deficits, Normal Mood Cerebellar Function: Normal Reflexes: Normal Skin: Dry, Normal Color, Warm Lymphatic: No Adenopathy Was a procedure done? Was a procedure done?: No Differential Dx Considerations may include: Symptomatic anemia, myelodysplastic syndrome X-Ray, Labs, Meds, VS Vital Signs Date Time Temp Pulse Resp B/P (MAP) Pulse Ox O2 Delivery O2 Flow Rate FiO2 09/03/24 06:18 97.9 103 16 105/62 (76) 98 97.9 Lab Test 09/03/24 06:17 Range/Units White Blood Count 4.9 # 4.4-10.8 10^3/uL Red Blood Count 2.42 L 4.5-5.90 10^6/uL Hemoglobin 7.0 #*L 13.5-17.5 g/dL Hematocrit 21.0 #L 41.0-53.0 % Mean Corpuscular Volume 87.0 80.0-100.0 fL Mean Corpuscular Hemoglobin 28.9 28.0-32.0 pg Mean Corpuscular Hemoglobin Concent 33.2 32.0-36.0 g/dL Red Cell Distribution Width 14.5 H 11.8-14.3 % Platelet Count 74 L 140-450 10^3/uL Mean Platelet Volume 9.5 6.9-10.8 fL Neutrophils (%) (Auto) 77.4 37.0-80.0 % Lymphocytes (%) (Auto) 10.3 10.0-50.0 % Monocytes (%) (Auto) 3.0 0.0-12.0 % Eosinophils (%) (Auto) 7.0 0.0-7.0 % Basophils (%) (Auto) 2.3 H 0.0-2.0 % Neutrophils # (Auto) 3.8 1.6-8.6 10 ^3/uL Lymphocytes # (Auto) 0.5 0.4-5.4 10 ^3/uL Monocytes # (Auto) 0.1 0-1.3 10 ^3/uL Eosinophils # (Auto) 0.3 0-0.8 10 ^3/uL Basophils # (Auto) 0.1 0-0.2 10 ^3/uL Nucleated Red Blood Cells 0.2 % Sodium Level 139 136-145 mmol/L Potassium Level 3.2 L 3.5-5.1 mmol/L Chloride Level 110 H 98-107 mmol/L Carbon Dioxide Level 19 L 20-31 mmol/L Anion Gap 10 5-15 Blood Urea Nitrogen 9 9-23 mg/dL Creatinine 0.58 L 0.700-1.30 mg/dL Glomerular Filtration Rate Calc 107 >90 mL/min BUN/Creatinine Ratio 15.5 10.0-20.0 Serum Glucose 111 H 74-106 mg/dL Calcium Level 8.7 8.7-10.4 mg/dL Time of 1ST Reevaluation: 06:41 Reevaluation 1ST: Unchanged Patient Education/Counseling: Diagnosis, Treatment Family Education/Counseling: No Family Present SEPSIS Sepsis Screen Orders/Vitals/Labs Physician Orders Packedcell-Noactive Bleeding (09/03/24 06:45) Type And Screen (09/03/24 06:45) Rt Lower Dvt (09/03/24 07:14) Vital Signs Date Time Temp Pulse Resp B/P (MAP) Pulse Ox O2 Delivery O2 Flow Rate FiO2 09/03/24 06:18 97.9 103 16 105/62 (76) 98 97.9 Laboratory Tests Test 09/03/24 06:17 White Blood Count 4.9 10^3/uL (4.4-10.8) # Departure 1 Departure Time of Disposition: 09:16 (Patient with symptomatic anemia. The patient for further workup and expert consultation) Impression: Primary Impression: Symptomatic anemia Additional Impression: MDS (myelodysplastic syndrome) Disposition: ADMITTED INPATIENT Admit to: Med Surg Condition: Serious Critical Care Note Critical Care Time?: Yes Critical care comment: Symptomatic anemia Authorized and Performed by: Rayray Pappas MD Total critical care time: Approximately 38 minutes Due to a high probability of clinically significant, life threatening deterioration, the patient required my highest level of preparedness to interve ne emergently and I personally spent this critical care time directly and personally managing the patient. This critical care time included obtaining a history; examining the patient; pulse oximetry; ordering and review of studies; arranging urgent treatment with development of a management plan; evaluation of patient's response to treatment; frequent reassessment; and, discussions with other providers. This critical care time was performed to assess and manage the high probability of imminent, life-threatening deterioration that could result in multi-organ failure. It was exclusive of separately billable procedures and treating other patients and teaching time. Please see my other sections and the rest of the note for further information on patient assessment and treatment. Stability Stability form required: No Heart Score Heart Score: Heart Score Response (Comments) Value History N/A 0 EKG N/A 0 Age N/A 0 Risk Factors N/A 0 Troponin N/A 0 Total 0 I personally scribed for RAYRAY PAPPAS MD ([email or web address]) on 09/03/24 at 06:15. Elect ronically submitted by Jalil Del Rio ([email or web address]). RAYRAY PAPPAS MD Sep 03, 2024 06:15
[2024-09-03 06:30] LABS: Basophils # (auto) 0.1 10 ^3/uL (0-0.2); Monocytes # (auto) 0.1 10 ^3/uL (0-1.3); Neutrophils % (auto) 77.4 % (37.0-80.0); Red Blood Cells 2.42 10^6/uL (4.5-5.90)
[2024-09-03 06:32] LABS: Basophils % (auto) 2.3 % (0.0-2.0); Eosinophils # (auto) 0.3 10 ^3/uL (0-0.8); Lymphocytes # (auto) 0.5 10 ^3/uL (0.4-5.4); Lymphocytes % (auto) 10.3 % (10.0-50.0); Mean Corpuscular Hemoglobin 28.9 pg (28.0-32.0); Mean Corpuscular Hgb Conc. 33.2 g/dL (32.0-36.0); Neutrophils # (auto) 3.8 10 ^3/uL (1.6-8.6); Nucleated Red Blood Cells % 0.2 %; Platelet Count (auto) 74 10^3/uL (140-450); Red Cell Distribution Width 14.5 % (11.8-14.3); White Blood Cell 4.9 10^3/uL (4.4-10.8)
[2024-09-03 06:36] LABS: Sodium 139 mmol/L (136-145)
[2024-09-03 06:37] LABS: Anion Gap 10 (5-15); Calcium 8.7 mg/dL (8.7-10.4); Carbon Dioxide 19 mmol/L (20-31); Chloride 110 mmol/L (98-107); Potassium 3.2 mmol/L (3.5-5.1)
[2024-09-03 06:42] LABS: BUN/Creatinine Ratio 15.5 (10.0-20.0); Blood Urea Nitrogen 9 mg/dL (9-23)
[2024-09-03 06:43] LABS: Glucose 111 mg/dL (74-106)
[2024-09-03] MEDS ORDERED: DOCUSATE SOD 100 MG CAP PO PRN (08:15)
[2024-09-03] MEDS ORDERED: ACETAMINOPHEN 325 MG TAB PO PRN ×2 (08:15→16:30)
[2024-09-03] MEDS ORDERED: ONDANSETRON HCL 4 MG/2 ML VIAL IV PRN (08:15)
[2024-09-03] MEDS ORDERED: ASPI-325 PO (08:25)
--- NOTE | 2024-09-03 08:40 | DVH ---
Right lower extremity venous duplex Clinical History: right leg swelling Comparison: US RT LOWER DVT on DOS: 08/16/24 Findings: Duplex Doppler evaluation of the deep venous systems of the right lower extremity from the common fem oral veins to the popliteal veins including color Doppler and spectral/pulsed waveform analysis was p erformed. RIGHT SIDE: The common femoral vein demonstrates appropriate compressibility and waveform variability. There is compressibility/patency of the great saphenous vein at the proximal thigh. The femoral vein demonstrates appropriate compressibility and waveform variability. The deep femoral vein demonstrates appropriate compressibility and waveform variability. The popliteal vein demonstrates appropriate compressibility and waveform variability. There is normal compressibility at the tibioperoneal trunk. Impression: 1. No deep venous thrombosis in the right lower extremity.
--- NOTE | 2024-09-03 09:02 | DVHHP2 ---
History of Present Illness Reason for Visit: Generalized weakness History of Present Illness Eugene Alejandro is a 69-year-old male with past medical history of myelodysplastic syndrome, prostate cancer status post resection, COPD, schizophrenia, hypotension, and previous admissions for severe anemia due to myelodysplastic syndrome who presented to the emergency department with a chief complaint of fatigue and generalized weakness. Patient states he has been feeling weak for a couple days. He also complains of pain and swelling to his left knee and thigh. States he has been having the swelling for a couple months, but the pain has significantly increased in the last 3 days. Cardiovascular: Other (Hypotension) Past Surgical History: Other (right leg), Tonsillectomy Smoke: <1 pack per day ALCOHOL: none Drugs: None Lives: with Family Domestic Violence: Neg Review of Systems Constitutional: Yes: Weakness, Malaise; No: Fever, Chills, Sweats, Other Eyes: No: Pain, Vision change, Conjunctivae inflammation, Eyelid inflammation, Other, Redness ENT: No: Ear pain, Ear discharge, Nose pain, Nose discharge, Nose congestion, Mouth pain, Mouth swelling, Throat pain, Throat swelling, Other Respiratory: No: Cough, Dry, Shortness of breath, SOB with excertion, Wheezing, Hemoptysis, Pleuritic Pain, Sputum, Wheezing, Other Cardiovascular: No: Chest Pain, Palpitations, Orthopnea, Paroxysmal Noc. Dyspnea, Edema, Lt Headedness, Other Gastrointestinal: No: Nausea, Vomiting, Abdominal Pain, Diarrhea, Constipation, Melena, Hematochezia, Other Genitourinary: No Dysuria, No Frequency, No Incontinence, No Hematuria, No Retention, No Other Musculoskeletal: leg pain (right leg and knee pain and swelling); No: other, neck pain, shoulder pain, arm pain, back pain, hand pain, foot pain Skin: No: Rash, Lesions, Jaundice, Bruising, Other Neurological: No: Weakness, Numbness, Incoordination, Change in speech, Confusion, Seizures, Other Allergies: Coded Allergies: NO KNOWN ALLERGIES (Unverified , 12/04/23) Medications Current Medications Medications Dose Ordered Sig/Fabricio Route Start Time Stop Time Status Last Admin Dose Admin Acetaminophen/ Hydrocodone Bitart 1 tab Q4HP PRN PO 09/03/24 08:15 UNV Ondansetron HCl 4 mg Q4HP PRN IV 09/03/24 08:15 UNV Docusate Sodium 100 mg BIDPRN PRN PO 09/03/24 08:15 UNV Acetaminophen 650 mg Q6HP PRN PO 09/03/24 08:15 UNV Exam Vital Signs Vital Signs Date Time Temp Pulse Resp B/P (MAP) Pulse Ox O2 Delivery O2 Flow Rate FiO2 09/03/24 06:18 97.9 103 16 105/62 (76) 98 97.9 General Appearance: Alert, Oriented X3, Cooperative, mild distress HEENT: Atraumatic, PERRLA Respiratory: Clear to auscultation, Normal air movement Cardiovascular: Regular rate, Normal S1, Normal S2, No murmurs Abdominal: Normal bowel sounds, Soft, No tenderness Extremities: No clubbing, No cyanosis, Other (right leg/knee swelling and pain) Skin: No rashes, No breakdown Neuro: Normal speech, Other (difficulty ambulation due to pain in right leg) Psych/Mental Status: Mental status NL, Mood NL Labs/Xrays Labs Test 09/03/24 06:17 Range/Units White Blood Count 4.9 # 4.4-10.8 10^3/uL Red Blood Count 2.42 L 4.5-5.90 10^6/uL Hemoglobin 7.0 #*L 13.5-17.5 g/dL Hematocrit 21.0 #L 41.0-53.0 % Mean Corpuscular Volume 87.0 80.0-100.0 fL Mean Corpuscular Hemoglobin 28.9 28.0-32.0 pg Mean Corpuscular Hemoglobin Concent 33.2 32.0-36.0 g/dL Red Cell Distribution Width 14.5 H 11.8-14.3 % Platelet Count 74 L 140-450 10^3/uL Mean Platelet Volume 9.5 6.9-10.8 fL Neutrophils (%) (Auto) 77.4 37.0-80.0 % Lymphocytes (%) (Auto) 10.3 10.0-50.0 % Monocytes (%) (Auto) 3.0 0.0-12.0 % Eosinophils (%) (Auto) 7.0 0.0-7.0 % Basophils (%) (Auto) 2.3 H 0.0-2.0 % Neutrophils # (Auto) 3.8 1.6-8.6 10 ^3/uL Lymphocytes # (Auto) 0.5 0.4-5.4 10 ^3/uL Monocytes # (Auto) 0.1 0-1.3 10 ^3/uL Eosinophils # (Auto) 0.3 0-0.8 10 ^3/uL Basophils # (Auto) 0.1 0-0.2 10 ^3/uL Nucleated Red Blood Cells 0.2 % Sodium Level 139 136-145 mmol/L Potassium Level 3.2 L 3.5-5.1 mmol/L Chloride Level 110 H 98-107 mmol/L Carbon Dioxide Level 19 L 20-31 mmol/L Anion Gap 10 5-15 Blood Urea Nitrogen 9 9-23 mg/dL Creatinine 0.58 L 0.700-1.30 mg/dL Glomerular Filtration Rate Calc 107 >90 mL/min BUN/Creatinine Ratio 15.5 10.0-20.0 Serum Glucose 111 H 74-106 mg/dL Calcium Level 8.7 8.7-10.4 mg/dL Assessment/Plan Assessment/Plan Assessment: Symptomatic anemia, due to myelodysplastic syndrome, Right leg/knee pain and swelling, Hypotension, COPD, Schizophrenia, Plan: Admit to Med-Surg, Transfuse 2 units of PRBC, CBC post transfusion, Manage/Monitor H&H, Ultrasound right leg, Wound care consult, Home medications reconciled, Consider CT of right leg/knee if pain continues, Plan discussed with: Patient My Orders Orders - ANNIKA SYED Procedure Category Date Status Time Admit ADMIT 09/03/24 Transmitted 08:12 Code Status CODE 09/03/24 Transmitted 08:12 2 Gm Sodium Diet DIET 09/03/24 Transmitted Breakfast Hydrocodone-Acet PHA 09/03/24 Logged 5/325mg Tab ([place] 08:15 Ondansetron Hcl PHA 09/03/24 Logged (Zofran) 08:15 Docusate Sodium PHA 09/03/24 Logged Capsule (Colace 08:15 Complete Blood Count LAB 09/04/24 Verified 04:00 Comprehensive LAB 09/04/24 Verified Metabolic Panel 04:00 Condition: Serious KATIA 09/03/24 In Process 08:12 Acetaminophen Tablet PHA 09/03/24 Logged (Tylenol Tablet) 08:15 Date of Service: Sep 03, 2024 Billing Provider: ANNIKA SYED Common Visit Codes: 92002-GOPJRLD INP/OBS CARE (MOD) ANNIKA SYED Sep 03, 2024 09:02
[2024-09-03] MEDS ORDERED: IBUP-1455 PO (09:44)
[2024-09-03] MEDS ORDERED: IBUPROFEN 800 MG TAB PO PRN ×2 (09:45→16:30)
[2024-09-03] MEDS: ASPirin-EC 81 mg tab PO SCH (10:40)
[2024-09-03] MEDS: FUROSEMIDE 40 MG TAB PO SCH (10:40)
[2024-09-03] MEDS: risperiDONE 1 MG TAB PO SCH (10:40)
[2024-09-03] MEDS: MIDODRINE HCL 10 MG TAB PO SCH (12:00)
[2024-09-03] MEDS: HYDROcodone-ACET 5/325MG TAB PO PRN (16:56)
[2024-09-03] MEDS: POTASSIUM CHL 20 Meq TABLET PO ONE (20:07)
[2024-09-04 01:00] VITALS: BP 100/53; PULSE 89; RESP 18; TEMP 98.8; O2SAT 99
[2024-09-04 05:00] VITALS: BP 118/50; PULSE 87; RESP 18; TEMP 98.6; O2SAT 98
[2024-09-04 06:42] LABS: Basophils # (auto) 0.1 10 ^3/uL (0-0.2); Hemoglobin 7.8 g/dL (13.5-17.5); Monocytes # (auto) 0.2 10 ^3/uL (0-1.3); Neutrophils # (auto) 4.1 10 ^3/uL (1.6-8.6); White Blood Cell 5.4 10^3/uL (4.4-10.8)
[2024-09-04 06:44] LABS: Basophils % (auto) 1.3 % (0.0-2.0); Eosinophils # (auto) 0.4 10 ^3/uL (0-0.8); Hematocrit 22.3 % (41.0-53.0); Lymphocytes # (auto) 0.8 10 ^3/uL (0.4-5.4); Lymphocytes % (auto) 13.9 % (10.0-50.0); Mean Corpuscular Hemoglobin 28.6 pg (28.0-32.0); Mean Corpuscular Hgb Conc. 34.8 g/dL (32.0-36.0); Mean Corpuscular Volume 82.2 fL (80.0-100.0); Monocytes % (auto) 2.8 % (0.0-12.0); Nucleated Red Blood Cells % 0.2 %; Platelet Count (auto) 63 10^3/uL (140-450); Red Blood Cells 2.71 10^6/uL (4.5-5.90); Red Cell Distribution Width 16.3 % (11.8-14.3)
[2024-09-04 07:04] LABS: Alanine Aminotransferase 38 U/L (7-40); Alkaline Phosphatase 68 U/L (46-116); Anion Gap 8 (5-15); Aspartate Aminotransferase 19 U/L (<34); BUN/Creatinine Ratio 19.2 (10.0-20.0); Blood Urea Nitrogen 10 mg/dL (9-23); Carbon Dioxide 23 mmol/L (20-31); Chloride 105 mmol/L (98-107); Glucose 87 mg/dL (74-106); Magnesium 1.7 mg/dL (1.6-2.6); Sodium 136 mmol/L (136-145); Total Protein 6.6 g/dL (5.7-8.2)
[2024-09-04 07:05] LABS: Bilirubin, Total 0.7 mg/dL (0.2-1.0)
[2024-09-04 07:11] LABS: Albumin 2.9 g/dL (3.2-4.8); Calcium 8.2 mg/dL (8.7-10.4)
[2024-09-04 09:00] VITALS: BP 102/53; PULSE 75; RESP 18; TEMP 97.9; O2SAT 100
[2024-09-04 12:31] VITALS: BP 117/52; PULSE 94; RESP 18; TEMP 97.9; O2SAT 98
--- NOTE | 2024-09-04 13:43 | DVHINCON2 ---
Date Seen: Sep 04, 2024 Reason for Consultation Right leg wounds History of Present Illness Eugene Alejandro is a 69-year-old male with past medical history of myelodysplastic syndrome, prostate cancer status post resection, COPD, schizophrenia, hypotension, and previous admissions for severe anemia due to myelodysplastic syndrome who presented to the emergency department with a chief complaint of fatigue and generalized weakness. Patient states he has been feeling weak for a couple days. He also complains of pain and swelling to his left knee and thigh. States he has been having the swelling for a couple months, but the pain has significantly increased in the last 3 days. Past Medical History See H&P Past Surgical History See H&P Family History: Diabetes mellitus G8 MOTHER, Onset:60 years & older FH: heart attack G8 FATHER, , Onset:60 years & older Allergies: Coded Allergies: NO KNOWN ALLERGIES (Unverified , 12/04/23) Home Meds Active Scripts Midodrine Hcl (Midodrine Hcl) 10 Mg Tab, 10 MG PO TID for 30 Days, #90 TAB 3 Refills Prov:YOANDY SALAS SALES PRODUCT SPECIALIST 06/06/24 Reported Medications Ibuprofen Micronized (Ibuprofen) 800 Mg Tab, 1 TAB PO TIDP PRN 09/03/24 Aspirin (Aspirin Low Dose) 81 Mg Tab, 1 TAB PO DAILY 09/03/24 Furosemide (Furosemide) 40 Mg Tab, 1 TAB PO DAILY 07/02/24 Hydrocodone-Acetaminophen (Hydrocodone Bitartrate/AC 10-325 mg) 1 Tab Tab, 1 TAB PO, TAB 06/18/24 Risperidone (Risperidone) 2 Mg Tab, 2 MG PO BID, TAB 12/05/23 Mirtazapine (Mirtazapine Oral Disintegrating Tablet) 45 Mg Tab, 1 TAB PO QPM, #30 TAB 1 Refill 12/05/23 Melatonin (KP MELATONIN) 3 Mg Tab, 3 MG PO HS, TAB 12/05/23 Gabapentin (Gabapentin) 600 Mg Tab, 600 MG PO BID, TAB 12/05/23 Fluticasone Furoate (Inhalatio (Arnuity Ellipta) 200 Mcg/Act Inh, 200 MCG IN, INHALER 12/05/23 Atorvastatin Calcium (ATORVASTATIN CALCIUM) 40 Mg Tab, 1 TAB PO DAILY, #30 TAB 5 Refills 12/05/23 Albuterol Sulfate (VENTOLIN MDI) 90 Mcg Ih, 90 MCG IN, INH 12/05/23 Current Medications Current Medications Medications (Trade) Dose Ordered Sig/Fabricio Route PRN Reason Start Time Stop Time Status Last Admin Ibuprofen (Motrin Tablet) 800 mg TIDP PRN PO MILD PAIN (1-3 PAIN SCALE) 09/03/24 16:30 Acetaminophen (Tylenol Tablet) 650 mg Q6HP PRN PO TEMP>100.4 09/03/24 16:30 Vital Signs Vital Signs Date Time Temp Pulse Resp B/P (MAP) Pulse Ox O2 Delivery O2 Flow Rate FiO2 09/04/24 12:31 97.9 94 18 117/52 (73) 98 97.9 09/04/24 08:00 Room Air* 0 21 Physical Exam Dermatological: Skin is dry with mild erythema and some maceration around the wound site No gross deformities noted Mild non-pitting edema present bilaterally Small area of drainage previously seen Vascular: Dorsalis pedis and posterior tibial pulses are 1+ bilaterally Capillary refill is under 2 seconds Skin temperature is warm bilaterally Neurologic: Protective sensation is absent on the plantar forefoot bilaterally Monofilament testing reveals decreased sensation in multiple plantar sites Musculoskeletal: Range of motion at the ankle and MTP joints is within normal limits. Strength is 5/5 in all tested muscle groups. Gait is antalgic due to offloading of the affected limb. Labs/Diagnostic Data Labs Test 09/04/24 05:45 Range/Units White Blood Count 5.4 4.4-10.8 10^3/uL Red Blood Count 2.71 L 4.5-5.90 10^6/uL Hemoglobin 7.8 L 13.5-17.5 g/dL Hematocrit 22.3 L 41.0-53.0 % Mean Corpuscular Volume 82.2 # 80.0-100.0 fL Mean Corpuscular Hemoglobin 28.6 28.0-32.0 pg Mean Corpuscular Hemoglobin Concent 34.8 32.0-36.0 g/dL Red Cell Distribution Width 16.3 H 11.8-14.3 % Platelet Count 63 L 140-450 10^3/uL Mean Platelet Volume 9.4 6.9-10.8 fL Neutrophils (%) (Auto) 75.0 37.0-80.0 % Lymphocytes (%) (Auto) 13.9 10.0-50.0 % Monocytes (%) (Auto) 2.8 0.0-12.0 % Eosinophils (%) (Auto) 7.0 0.0-7.0 % Basophils (%) (Auto) 1.3 0.0-2.0 % Neutrophils # (Auto) 4.1 1.6-8.6 10 ^3/uL Lymphocytes # (Auto) 0.8 0.4-5.4 10 ^3/uL Monocytes # (Auto) 0.2 0-1.3 10 ^3/uL Eosinophils # (Auto) 0.4 0-0.8 10 ^3/uL Basophils # (Auto) 0.1 0-0.2 10 ^3/uL Nucleated Red Blood Cells 0.2 % Sodium Level 136 136-145 mmol/L Potassium Level 4.0 3.5-5.1 mmol/L Chloride Level 105 98-107 mmol/L Carbon Dioxide Level 23 20-31 mmol/L Anion Gap 8 5-15 Blood Urea Nitrogen 10 9-23 mg/dL Creatinine 0.52 L 0.700-1.30 mg/dL Glomerular Filtration Rate Calc 110 >90 mL/min BUN/Creatinine Ratio 19.2 10.0-20.0 Serum Glucose 87 74-106 mg/dL Calcium Level 8.2 L 8.7-10.4 mg/dL Magnesium Level 1.7 1.6-2.6 mg/dL Total Bilirubin 0.7 0.2-1.0 mg/dL Aspartate Amino Transferase (AST) 19 <34 U/L Alanine Aminotransferase (ALT) 38 7-40 U/L Alkaline Phosphatase 68 46-116 U/L Total Protein 6.6 5.7-8.2 g/dL Albumin 2.9 L 3.2-4.8 g/dL Microbiology Date/Time Source Procedure Growth Status 09/03/24 21:30 Nose MRSA Screen - Final Complete Problems(with codes): (1) Fever (2) Syncope (3) Weakness (4) Head injury (5) Hypotension (6) Critical illness myopathy (7) Fever, unspecified (8) Severe sepsis with septic shock (9) Acute renal injury (10) Sepsis, unspecified organism (11) Postoperative pain (12) Dizziness (13) Cellulitis of right lower extremity (14) Chest pain of unknown etiology (15) Near syncope (16) Shortness of breath (17) Anemia (18) Bipolar disorder (19) Hypokalemia (20) Generalized weakness (21) Thrombocytopenia (22) Sepsis (23) History of prostate cancer (24) Swelling of right lower extremity (25) Severe anemia (26) MDS (myelodysplastic syndrome) (27) Symptomatic anemia Plan/Recommendation ASSESSMENT: Patient is a 69-year-old seen on the floor for right leg swelling PLAN: - The patients chart was reviewed, clinical findings were discussed with the patient, the etiologies of the conditions were discussed in detail, and a treatment plan was agreed to at this time, with both oral and written instructi ons provided. - discussed that everything looks like it is healing appropriately - can use a small bandage with Medihoney - continue some mild compression with a Rigo bandage - we will follow up with the after discharge - no surgical indication at this point All questions were answered and concerns addressed to the patient's satisfaction. The patient was given the phone number to the clinic and was told how to make contact with the clinic should any concerns or questions arise. Patient understands that if any questions or concerns arise prior to the next appointment, we should be contacted immediately. FOLLOW-UP: Continue to follow while inpatient Plan discussed with: Patient Date of Service: Sep 04, 2024 Billing Provider: SERGEY MULLINS DPM Common Visit Codes: CONSULT ONLY Consultation Codes: [id number] CONSULT <80MIN SERGEY MULLINS DPM Sep 04, 2024 13:43
--- NOTE | 2024-09-04 15:15 | DVHPN2 ---
Subjective Seen and examined at bedside, monitor H&H. Changes from previous H/P or p: No Changes Eyes: No Pain, No Vision change, No Conjunctivae inflammation, No Eyelid inflammation, No Other, No Redness ENT: No Ear pain, No Ear discharge, No Nose pain, No Nose discharge, No Nose congestion, No Mouth pain, No Mouth swelling, No Throat pain, No Throat swelling, No Other Cardiovascular: No Chest Pain, No Palpitations, No Orthopnea, No Paroxysmal Noc. Dyspnea, No Edema, No Lt Headedness, No Other Respiratory: No Cough, No Dry, No Shortness of breath, No SOB with excertion, No Wheezing, No Hemoptysis, No Pleuritic Pain, No Sputum, No Other Gastrointestinal: No Nausea, No Vomiting, No Abdominal Pain, No Diarrhea, No Constipation, No Melena, No Hematochezia, No Other Genitourinary: No Dysuria, No Frequency, No Incontinence, No Hematuria, No Retention, No Other Musculoskeletal: No other, No neck pain, No shoulder pain, No arm pain, No back pain, No hand pain; leg pain (right leg and knee pain and swelling); No foot pain Skin: No Rash, No Lesions, No Jaundice, No Bruising, No Other Objective Vitals Vital Signs Date Time Temp Pulse Resp B/P (MAP) Pulse Ox O2 Delivery O2 Flow Rate FiO2 09/04/24 12:31 97.9 94 18 117/52 (73) 98 97.9 09/04/24 08:00 Room Air* 0 21 Intake/Output Intake and Output 09/04/24 07:00 Intake Total 1260 ml Output Total 950 ml Balance 310 ml Intake Oral 360 ml Blood Product 900 ml Output Urine Total 950 ml # Bowel Movements 2 General Appearance: Alert, Oriented X3, Cooperative Lungs: Clear to auscultation Cardiovascular: Regular rate, Normal S1, Normal S2 Abdomen: Normal bowel sounds, Soft Extremities: Other (Right Foot swelling which has improved) Psych/Mental Status: Mental status NL Medications Current Medications Medications Dose Ordered Sig/Farbicio Route Start Time Stop Time Status Last Admin Dose Admin Acetaminophen/ Hydrocodone Bitart 1 tab Q4HP PRN PO 09/03/24 08:15 09/04/24 10:05 1 TAB Ondansetron HCl 4 mg Q4HP PRN IV 09/03/24 08:15 Docusate Sodium 100 mg BIDPRN PRN PO 09/03/24 08:15 Furosemide 40 mg DAILY PO 09/03/24 10:00 09/04/24 10:05 40 MG Midodrine 10 mg TID@0600,1200,1800 PO 09/03/24 12:00 09/04/24 11:52 10 MG Risperidone 2 mg BID PO 09/03/24 10:00 09/04/24 10:07 2 MG Aspirin 81 mg DAILY PO 09/03/24 10:00 09/04/24 10:04 81 MG Ibuprofen 800 mg TIDP PRN PO 09/03/24 16:30 Acetaminophen 650 mg Q6HP PRN PO 09/03/24 16:30 Laboratory Results Laboratory Tests 09/04/24 05:45 Chemistry Test 09/04/24 05:45 Albumin 2.9 g/dL (3.2-4.8) L Calcium Level 8.2 mg/dL (8.7-10.4) L Magnesium Level 1.7 mg/dL (1.6-2.6) Total Protein 6.6 g/dL (5.7-8.2) LFT Test 09/04/24 05:45 Alanine Aminotransferase (ALT) 38 U/L (7-40) Alkaline Phosphatase 68 U/L (46-116) Aspartate Amino Transferase (AST) 19 U/L (<34) Total Bilirubin 0.7 mg/dL (0.2-1.0) Microbiology Microbiology Date/Time Source Procedure Growth Status 09/03/24 21:30 Nose MRSA Screen - Final Complete Assessment/Plan Assessment/Plan # Anemia due to MDS - Transfuse PRBC # Right Foot Chronic Osteomylitis - As managed by Dr. Bell, cont outpatient followup. No needs for Abx at this time Plan discussed with: Patient My Orders Orders - VENKAT SMILEY MD Procedure Category Date Status Time *Podiatry Consult CONS 09/03/24 Transmitted [facility]) 18:14 Date of Service: Sep 04, 2024 Billing Provider: VENKAT SMILEY MD Common Visit Codes: [id number] INP/OBS CARE(MOD) VENKAT SMILEY MD Sep 04, 2024 15:15
[2024-09-04 16:38] VITALS: BP 104/52; PULSE 90; RESP 19; TEMP 98.4; O2SAT 95
[2024-09-04 21:00] VITALS: BP 91/45; PULSE 89; RESP 18; TEMP 98.9; O2SAT 97
[2024-09-05 05:00] VITALS: BP 90/51; PULSE 90; RESP 18; TEMP 98.3; O2SAT 97
[2024-09-05 07:31] LABS: Hematocrit 22.5 % (41.0-53.0); Hemoglobin 7.7 g/dL (13.5-17.5)
[2024-09-05 08:37] VITALS: BP 82/48; PULSE 85; RESP 20; TEMP 98.4; O2SAT 95
--- NOTE | 2024-09-05 11:06 | DVHDS2 ---
Discharge Summary Date of Admission Sep 03, 2024 at 08:12 Date of Discharge: Sep 05, 2024 Admitting Diagnosis Severe protein malnutrition Labs/Diagnostic Data: Laboratory Results Test 09/05/24 06:41 09/04/24 05:45 Hemoglobin 7.7 g/dL (13.5-17.5) Hematocrit 22.5 % (41.0-53.0) White Blood Count 5.4 10^3/uL (4.4-10.8) Red Blood Count 2.71 10^6/uL (4.5-5.90) Mean Corpuscular Volume 82.2 fL (80.0-100.0) Mean Corpuscular Hemoglobin 28.6 pg (28.0-32.0) Mean Corpuscular Hemoglobin Concent 34.8 g/dL (32.0-36.0) Red Cell Distribution Width 16.3 % (11.8-14.3) Platelet Count 63 10^3/uL (140-450) Mean Platelet Volume 9.4 fL (6.9-10.8) Neutrophils (%) (Auto) 75.0 % (37.0-80.0) Lymphocytes (%) (Auto) 13.9 % (10.0-50.0) Monocytes (%) (Auto) 2.8 % (0.0-12.0) Eosinophils (%) (Auto) 7.0 % (0.0-7.0) Basophils (%) (Auto) 1.3 % (0.0-2.0) Neutrophils # (Auto) 4.1 10 ^3/uL (1.6-8.6) Lymphocytes # (Auto) 0.8 10 ^3/uL (0.4-5.4) Monocytes # (Auto) 0.2 10 ^3/uL (0-1.3) Eosinophils # (Auto) 0.4 10 ^3/uL (0-0.8) Basophils # (Auto) 0.1 10 ^3/uL (0-0.2) Nucleated Red Blood Cells 0.2 % Sodium Level 136 mmol/L (136-145) Potassium Level 4.0 mmol/L (3.5-5.1) Chloride Level 105 mmol/L (98-107) Carbon Dioxide Level 23 mmol/L (20-31) Anion Gap 8 (5-15) Blood Urea Nitrogen 10 mg/dL (9-23) Creatinine 0.52 mg/dL (0.700-1.30) Glomerular Filtration Rate Calc 110 mL/min (>90) BUN/Creatinine Ratio 19.2 (10.0-20.0) Serum Glucose 87 mg/dL (74-106) Calcium Level 8.2 mg/dL (8.7-10.4) Magnesium Level 1.7 mg/dL (1.6-2.6) Total Bilirubin 0.7 mg/dL (0.2-1.0) Aspartate Amino Transferase (AST) 19 U/L (<34) Alanine Aminotransferase (ALT) 38 U/L (7-40) Alkaline Phosphatase 68 U/L (46-116) Total Protein 6.6 g/dL (5.7-8.2) Albumin 2.9 g/dL (3.2-4.8) Other Laboratory Tests 09/05/24 06:41 09/04/24 05:45 Brief Hx & Hospital Course: Eugene Alejandro is a 69-year-old male with past medical history of myelodysplastic syndrome, prostate cancer status post resection, COPD, schizophrenia, hypotension, and previous admissions for severe anemia due to myelodysplastic syndrome who presented to the emergency department with a chief complaint of fatigue and generalized weakness. Patient states he has been feeling weak for a couple days. He also complains of pain and swelling to his left knee and thigh. States he has been having the swelling for a couple months, but the pain has significantly increased in the last 3 days. Patient was transfused 2 PRBC. Will dc home Condition at Discharge: Poor Final Diagnosis/Problems List # Anemia due to MDS - Transfuse PRBC # Right Foot Chronic Osteomylitis - As managed by Dr. Bell, cont outpatient followup. No needs for Abx at this time # Severe protein malnutrition- Dietary Cx Discharge Disposition: Home Discharge Instruct/Medications Diet: Regular Activity: Light activity Follow Up/Referral: PCP Dr. Bosch Medications: resume home meds Discharge Statement: "Patient was advised to return to the ER or call 911 if any headaches, dizziness, shortness of breath, chest pain, abdominal pain, bleeding, fevers, or worsening of medical condition. Patient was counseled about treatment plan, medications, possible side effects, patientverbalized understanding. All questions were answered to the best of my ability. This discharge took greater then 30 minutes in planning, reviewing documentation, counseling the patient, and discussing with other team members." ASSESSMENT ASSESSMENT Assessment Date of Service: Sep 05, 2024 Billing Provider: VENKAT SMILEY MD Common Visit Codes: [id number] DISCH DAY >30min VENKAT SMILEY MD Sep 05, 2024 11:06
[2024-09-05 12:30] VITALS: BP 133/87; PULSE 81; RESP 20; TEMP 98.2; O2SAT 97
[2024-09-05] MEDS ORDERED: IBUP-1455 PO (14:10)
[2024-09-05 16:04] VITALS: BP 97/43; PULSE 81; RESP 20; TEMP 98.2; O2SAT 97
[2024-09-05 16:58] VITALS: BP 105/55; PULSE 88; RESP 20; TEMP 98.3; O2SAT 97
== END 2024-09-05 19:00 | disposition home or self-care (01) | DRG 811 ==
LOC: ER 05:55 → OVERFLOW 08:12 → WEST WING 15:33
PROVIDERS: ADMIT Internal Medicine; ATTEND Internal Medicine
PROC: 30233N1 Transfusion of Nonautologous Red Blood Cells into Peripheral Vein, Percutaneous Approach (ICD-10-PCS; principal; 2024-09-03)
PROC: 05HA33Z Insertion of Infusion Device into Left Brachial Vein, Percutaneous Approach (ICD-10-PCS; 2024-09-03)
PROC: B54NZZA Ultrasonography of Left Upper Extremity Veins, Guidance (ICD-10-PCS; 2024-09-03)
DX: D46.9 Myelodysplastic syndrome, unspecified (principal); E43 Unspecified severe protein-calorie malnutrition; Z68.1 Body mass index [BMI] 19.9 or less, adult; M86.671 Other chronic osteomyelitis, right ankle and foot; F20.9 Schizophrenia, unspecified; J44.9 Chronic obstructive pulmonary disease, unspecified; D63.0 Anemia in neoplastic disease; I95.9 Hypotension, unspecified; F17.210 Nicotine dependence, cigarettes, uncomplicated; M25.562 Pain in left knee; M25.462 Effusion, left knee; Z85.46 Personal history of malignant neoplasm of prostate; Z83.3 Family history of diabetes mellitus; Z82.49 Family history of ischemic heart disease and other diseases of the circulatory system
CPT/HCPCS: 36415; 80048; 80053; 83735; 85014; 85018; 85025; 86850; 86900; 86901; 86902; 86922; 87081; 93971; 99291; G0378

== ENCOUNTER 2024-09-10 06:11 | Inpatient (IN) | payer OTHER, MEDICAID ==
[2024-09-10] VITALS (11 sets, daily range): BP systolic 95–122; BP diastolic 52–72; PULSE 85–97; RESP 17–22; TEMP 97.8–100.2; O2SAT 97–99
[~2024-09-10] VITALS: Ht 180.3 cm; Wt 72.1 kg
[~2024-09-10 06:11] MED LIST changes: +ASPI-325 PO; -HYD1TP TOP; +IBUP-1455 PO; -NIC21P TOP
--- NOTE | 2024-09-10 06:32 | ED.PDOC ---
History of Present Illness HPI Comments 69 y/o M, with PMHx of COPD, HLD, and anemia presents to the ED for CC of abnormal labs. Patient states, he is here for his weekly blood transfusion. Patient is seen at [facility] for weekly blood transfusions; endorses last being transfused on 09/03/24. Patient denies active bleeding, melena, epistaxis, or hematemesis. No other symptoms or modifying factors present at this time. Time Seen by MD: 06:27 Primary Care Provider: MADDIE Reviewed Notes: Nurses Notes, Medications, Allergies Allergies: Coded Allergies: NO KNOWN ALLERGIES (Unverified , 12/04/23) Home Meds Active Scripts Ibuprofen Micronized (Ibuprofen) 800 Mg Tab, 1 TAB PO TIDP PRN for 10 Days, #30 TAB Prov:VENKAT SMILEY MD 09/05/24 Midodrine Hcl (Midodrine Hcl) 10 Mg Tab, 10 MG PO TID for 30 Days, #90 TAB 3 Refills Prov:YOANDY SALAS NP 06/06/24 Reported Medications Aspirin (Aspirin Low Dose) 81 Mg Tab, 1 TAB PO DAILY 09/03/24 Furosemide (Furosemide) 40 Mg Tab, 1 TAB PO DAILY 07/02/24 Hydrocodone-Acetaminophen (Hydrocodone Bitartrate/AC 10-325 mg) 1 Tab Tab, 1 TAB PO, TAB 06/18/24 Risperidone (Risperidone) 2 Mg Tab, 2 MG PO BID, TAB 12/05/23 Mirtazapine (Mirtazapine Oral Disintegrating Tablet) 45 Mg Tab, 1 TAB PO QPM, #30 TAB 1 Refill 12/05/23 Melatonin (KP MELATONIN) 3 Mg Tab, 3 MG PO HS, TAB 12/05/23 Gabapentin (Gabapentin) 600 Mg Tab, 600 MG PO BID, TAB 12/05/23 Fluticasone Furoate (Inhalatio (Arnuity Ellipta) 200 Mcg/Act Inh, 200 MCG IN, INHALER 12/05/23 Atorvastatin Calcium (ATORVASTATIN CALCIUM) 40 Mg Tab, 1 TAB PO DAILY, #30 TAB 5 Refills 12/05/23 Albuterol Sulfate (VENTOLIN MDI) 90 Mcg Ih, 90 MCG IN, INH 12/05/23 Information Source: Patient Mode of Arrival: Ambulatory Severity: Moderate Timing: Days Duration: Since onset Prehospital treatment: None Past Medical History PAST MEDICAL HISTORY: Anemia, COPD, High Lipids Surgical History: Tonsillectomy Family History Family History: Reviewed,noncontributory to illness, Unknown Social History Smoker: Cigarettes, Less Than 1 Pack/Day Alcohol: Occasionally Drugs: Denies Drug Use Lives In: Home Constitutional: denies: chills, diaphoresis, fatigue, fever, malaise, sweats, weakness, others EENTM: denies: blurred vision, double vision, ear bleeding, ear discharge, ear drainage, ear pain, ear ringing, eye pain, eye redness, hearing loss, mouth pain, mouth swelling, nasal discharge, nose bleeding, nose congestion, nose pain, photophobia, tearing, throat pain, throat swelling, voice changes, others Respiratory: reports: shortness of breath; denies: cough, hemoptysis, orthopnea, SOB at rest, SOB with excertion, stridor, wheezing, others Cardiovascular: denies: chest pain, dizzy spells, diaphoresis, Dyspnea on exertion, edema, irregular heart beat, left arm pain, lightheadedness, p alpitations, PND, syncope, others Gastrointestinal: denies: abdomen distended, abdominal pain, blood streaked bowels, constipated, diarrhea, dysphagia, difficulty swallowing, hematemesis, melena, nausea, poor appetite, poor fluid intake, rectal bleeding, rectal pain, vomiting, others Genitourinary: denies: burning, dysuria, flank pain, frequency, hematuria, incontinence, penile discharge, penile sore, pain, testicle pain, testicle swelling, urgency, others Neurological: denies: dizziness, fainting, headache, left sided numbness, left sided weakness, numbness, paresthesia, pre-existing deficit, right sided numbness, right sided weakness, seizure, speech problems, tingling, tremors, weakness, others Musculoskeletal: denies: back pain, gout, joint pain, joint swelling, muscle pain, muscle stiffness, neck pain, others Integumetry: denies: bruises, change in color, change in hair/nails, dryness, laceration, lesions, lumps, rash, wounds, others Allergic/Immunocompromised: denies: Difficulty Healing, Frequent Infections, Hives, Itching, others Hematologic/Lymphatic: denies: anemia, blood clots, easy bleeding, easy b ruising, swollen glands, others Endocrine: denies: excessive hunger, excessive sweating, excessive thirst, excessive urination, flushing, intolerance to cold, intolerance to heat, unexplained weight gain, unexplained weight loss, others Psychiatric: denies: anxiety, bipolar disorder, depression, hopeless, panic disorder, schizophrenia, sleepless, suicidal, others All Other Systems: Reviewed and Negative Physical Exam General Appearance: Moderate Distress HEENT: Normal ENT Inspection, Pharynx Normal, TMs Normal Neck: Full Range of Motion, Non-Tender, Normal, Normal Inspection Respiratory: Chest Non-Tender, Lungs Clear, No Accessory Muscle Use, No Respiratory Distress, Normal Breath Sounds Cardiovascular: No Edema, No JVD, No Murmur, No Gallop, Normal Peripheral Pulses, Regular Rate/Rhythm Breast Exam: Deferred Gastrointestinal: No Organomegaly, Non Tender, No Pulsatile Mass, Normal Bowel Sounds, Soft Genitalia: Deferred Pelvic: Deferred Rectal: Deferred Extremities: Swelling (Right lower extremity) Musculoskeletal : Apperance: Normal Neurologic: Alert, No Motor Deficits, No Sensory Deficits Cerebellar Function: NOT DONE Reflexes: NOT DONE Skin: Pallor Peripheral Pulses: 3+ Radial (R), 3+ Radial (L) Lymphatic: No Adenopathy Was a procedure done? Was a procedure done?: No Differential Dx Considerations may include: ANEMIA, DEHYDRATION, ELECTROLYTE IMBALANCE X-Ray, Labs, Meds, VS Vital Signs Date Time Temp Pulse Resp B/P (MAP) Pulse Ox O2 Delivery O2 Flow Rate FiO2 09/10/24 06:35 99.1 97 22 106/61 (76) 97 99.1 09/10/24 06:35 97 22 97 Room Air* 0 21 09/10/24 06:11 98.1 104 16 87/63 (71) 98 98.1 Lab Test 09/10/24 06:44 Range/Units White Blood Count 5.4 4.4-10.8 10^3/uL Red Blood Count 2.52 L 4.5-5.90 10^6/uL Hemoglobin 7.2 L 13.5-17.5 g/dL Hematocrit 20.6 L 41.0-53.0 % Mean Corpuscular Volume 81.9 80.0-100.0 fL Mean Corpuscular Hemoglobin 28.5 28.0-32.0 pg Mean Corpuscular Hemoglobin Concent 34.7 32.0-36.0 g/dL Red Cell Distribution Width 16.2 H 11.8-14.3 % Platelet Count 87 L 140-450 10^3/uL Mean Platelet Volume 8.9 6.9-10.8 fL Neutrophils (%) (Auto) 77.9 37.0-80.0 % Lymphocytes (%) (Auto) 10.1 10.0-50.0 % Monocytes (%) (Auto) 2.5 0.0-12.0 % Eosinophils (%) (Auto) 7.6 H 0.0-7.0 % Basophils (%) (Auto) 1.9 0.0-2.0 % Neutrophils # (Auto) 4.2 1.6-8.6 10 ^3/uL Lymphocytes # (Auto) 0.5 0.4-5.4 10 ^3/uL Monocytes # (Auto) 0.1 0-1.3 10 ^3/uL Eosinophils # (Auto) 0.4 0-0.8 10 ^3/uL Basophils # (Auto) 0.1 0-0.2 10 ^3/uL Nucleated Red Blood Cells 0.0 % Sodium Level 142 # 136-145 mmol/L Potassium Level 3.9 3.5-5.1 mmol/L Chloride Level 110 H 98-107 mmol/L Carbon Dioxide Level 23 20-31 mmol/L Anion Gap 9 5-15 Blood Urea Nitrogen 13 9-23 mg/dL Creatinine 0.61 L 0.700-1.30 mg/dL Glomerular Filtration Rate Calc 105 >90 mL/min BUN/Creatinine Ratio 21.3 H 10.0-20.0 Serum Glucose 101 74-106 mg/dL Calcium Level 9.2 8.7-10.4 mg/dL [place] [id number] Ph: [phone] DIAGNOSTIC IMAGING Diagnostic Imaging Report : [id number] Signed PATIENT: MEME ALONOS JRACCT: [id number] UNIT: [id number] : 1955 LOC: ER ROOM / BED: / AGE / SEX: 69 / M ADM STATUS: REG ER SERVICE [id number] ORDERING PHYSICIAN: TEE ATKINS MD PROCEDURE(s): RLDVT - RT Lower DVT REASON: dvt ORDER NUMBER(s): [id number], ACCESSION NUMBER(s): [id number] Right lower extremity venous duplex Clinical History: dvt Comparison: US RT LOWER DVT on DOS: 09/03/24, US RT LOWER DVT on DOS: 08/16/24, US RT LOWER DVT on DOS: 05/07/24, US RT LOWER DVT on DOS: 03/28/24, US RT LOWER DVT on DOS: 03/13/24 Technique: Duplex Doppler evaluation of the deep venous system of the right lower extremity from the common femoral vein to the popliteal vein including color Doppler and spectral/pulsed waveform analysis was performed. Findings: The common femoral vein demonstrates appropriate compressibility and waveform variability. There is compressibility/patency of the great saphenous vein at the proximal thigh. The femoral vein demonstrates appropriate compressibility and waveform variability. The deep femoral vein demonstrates appropriate compressibility and waveform variability. The popliteal vein demonstrates appropriate compressibility and waveform variability. There is normal compressibility at the tibioperoneal trunk. Impression: No right femoropopliteal venous thrombosis. ATED BY: SALO CHAVES MD DICTATED DATE/TIME: 09/10/24750 SIGNED BY: SALO CHAVES MD SIGNED DATE/TIME: 09/10/24750 CC: Patient alert. States that he has weakness. He comes a weekly for blood transfusion. He has a anemia. Last time he was here is 7.7. Continues to drop. He we will need blood transfusion. He has a right lower extremity swelling. Reviewed his previous visit. Explained to the patient. Continue monitoring. Time of 1ST Reevaluation: 06:57 Reevaluation 1ST: Unchanged Patient Education/Counseling: Diagnosis, Treatment Family Education/Counseling: No Family Present SEPSIS Sepsis Screen Physician Orders Rt Lower Dvt (09/10/24 06:29) Packedcells -Active Bleeding (09/10/24 08:04) Type And Screen (09/10/24 08:04) Vital Signs Date Time Temp Pulse Resp B/P (MAP) Pulse Ox O2 Delivery O2 Flow Rate FiO2 09/10/24 06:35 99.1 97 22 106/61 (76) 97 99.1 09/10/24 06:35 97 22 97 Room Air* 0 21 09/10/24 06:11 98.1 104 16 87/63 (71) 98 98.1 Laboratory Tests Test 09/10/24 06:44 White Blood Count 5.4 10^3/uL (4.4-10.8) Departure 1 Departure Time of Disposition: 08:03 Impression: Primary Impression: Symptomatic anemia Disposition: ADMITTED INPATIENT Admit to: Med Surg Condition: Guarded Critical Care Note Critical Care Time?: No Stability Stability form required: No Heart Score Heart Score: Heart Score Response (Comments) Value History N/A 0 EKG N/A 0 Age N/A 0 Risk Factors N/A 0 Troponin N/A 0 Total 0 I personally scribed for TEE ATKINS MD ([email or web address]) on 09/10/24 at 06:32. Electronically submitted by Maria Elena Barton ([email or web address]). I personally scribed for TEE ATKINS MD ([email or web address]) on 09/10/24 at 08:25. Electronically submitted by Maria Elena Barton ([email or web address]). TEE ATKINS MD Sep 10, 2024 06:32
[2024-09-10 06:54] LABS: Basophils # (auto) 0.1 10 ^3/uL (0-0.2); Eosinophils # (auto) 0.4 10 ^3/uL (0-0.8); Hemoglobin 7.2 g/dL (13.5-17.5); Monocytes # (auto) 0.1 10 ^3/uL (0-1.3); Monocytes % (auto) 2.5 % (0.0-12.0); Neutrophils # (auto) 4.2 10 ^3/uL (1.6-8.6)
[2024-09-10 06:59] LABS: Basophils % (auto) 1.9 % (0.0-2.0); Eosinophils % (auto) 7.6 % (0.0-7.0); Hematocrit 20.6 % (41.0-53.0); Lymphocytes # (auto) 0.5 10 ^3/uL (0.4-5.4); Lymphocytes % (auto) 10.1 % (10.0-50.0); Mean Corpuscular Hemoglobin 28.5 pg (28.0-32.0); Mean Corpuscular Hgb Conc. 34.7 g/dL (32.0-36.0); Mean Corpuscular Volume 81.9 fL (80.0-100.0); Neutrophils % (auto) 77.9 % (37.0-80.0); Red Blood Cells 2.52 10^6/uL (4.5-5.90); Red Cell Distribution Width 16.2 % (11.8-14.3); White Blood Cell 5.4 10^3/uL (4.4-10.8)
[2024-09-10 07:01] LABS: Potassium 3.9 mmol/L (3.5-5.1); Sodium 142 mmol/L (136-145)
[2024-09-10 07:02] LABS: Anion Gap 9 (5-15); Carbon Dioxide 23 mmol/L (20-31)
[2024-09-10 07:03] LABS: Calcium 9.2 mg/dL (8.7-10.4)
[2024-09-10 07:07] LABS: Chloride 110 mmol/L (98-107)
[2024-09-10 07:08] LABS: BUN/Creatinine Ratio 21.3 (10.0-20.0); Blood Urea Nitrogen 13 mg/dL (9-23); Glucose 101 mg/dL (74-106)
[2024-09-10 07:10] LABS: Platelet Count (auto) 87 10^3/uL (140-450)
--- NOTE | 2024-09-10 07:53 | DVH ---
Right lower extremity venous duplex Clinical History: dvt Comparison: US RT LOWER DVT on DOS: 09/03/24, US RT LOWER DVT on DOS: 08/16/24, US RT LOWER DVT on DOS: 05/07/24, US RT LOWER DVT on DOS: 03/28/24, US RT LOWER DVT on DOS: 03/13/24 Technique: Duplex Doppler evaluation of the deep venous system of the right lower extremity from the common femo ral vein to the popliteal vein including color Doppler and spectral/pulsed waveform analysis was perf ormed. Findings: The common femoral vein demonstrates appropriate compressibility and waveform variability. There is compressibility/patency of the great saphenous vein at the proximal thigh. The femoral vein demonstrates appropriate compressibility and waveform variability. The deep femoral vein demonstrates appropriate compressibility and waveform variability. The popliteal vein demonstrates appropriate compressibility and waveform variability. There is normal compressibility at the tibioperoneal trunk. Impression: No right femoropopliteal venous thrombosis.
[2024-09-10] MEDS ORDERED: DOCUSATE SOD 100 MG CAP PO PRN (10:15)
[2024-09-10] MEDS ORDERED: ONDANSETRON HCL 4 MG/2 ML VIAL IV PRN (10:15)
[2024-09-10] MEDS ORDERED: ACETAMINOPHEN 325 MG TAB PO PRN (10:15)
--- NOTE | 2024-09-10 10:22 | DVHHP2 ---
History of Present Illness Reason for Visit: Abnormal Labs History of Present Illness Eugene Alejandro is a 69-year-old male with past medial history of myelodysplastic syndrome, prostate cancer status post resection, COPD, schizophrenia, hypotension, and previous admissions for severe anemia due to myelodysplastic syndrome who presented to the emergency department with a chief complaint of fatigue and generalized weakness. Patient states he has been feeling weak for a couple days. Cardiovascular: Other (Hypotension) Pulmonary: COPD Heme/Onc: Anemia NOS, Cancer (prostate) Psych: Schizophrenia Past Surgical History: Other (right leg skin graft), Tonsillectomy Smoke: <1 pack per day ALCOHOL: none Drugs: None Lives: with Family Domestic Violence: Neg Review of Systems Constitutional: Yes: Weakness, Malaise; No: Fever, Chills, Sweats, Other Eyes: No: Pain, Vision change, Conjunctivae inflammation, Eyelid inflammation, Other, Redness Respiratory: No: Cough, Dry, Shortness of breath, SOB with excertion, Wheezing, Hemoptysis, Pleuritic Pain, Sputum, Wheezing, Other Cardiovascular: No: Chest Pain, Palpitations, Orthopnea, Paroxysmal Noc. Dyspnea, Edema, Lt Headedness, Other Gastrointestinal: No: Nausea, Vomiting, Abdominal Pain, Diarrhea, Constipation, Melena, Hematochezia, Other Genitourinary: No Dysuria, No Frequency, No Incontinence, No Hematuria, No Retention, No Other Musculoskeletal: No: other, neck pain, shoulder pain, arm pain, back pain, hand pain, leg pain, foot pain Skin: No: Rash, Lesions, Jaundice, Bruising, Other Neurological: No: Weakness, Numbness, Incoordination, Change in speech, Confusion, Seizures, Other Allergies: Coded Allergies: NO KNOWN ALLERGIES (Unverified , 12/04/23) Medications Current Medications Medications Dose Ordered Sig/Fabricio Route Start Time Stop Time Status Last Admin Dose Admin Acetaminophen/ Hydrocodone Bitart 1 tab Q4HP PRN PO 09/10/24 10:15 UNV Ondansetron HCl 4 mg Q4HP PRN IV 09/10/24 10:15 UNV Docusate Sodium 100 mg BIDPRN PRN PO 09/10/24 10:15 UNV Acetaminophen 650 mg Q6HP PRN PO 09/10/24 10:15 UNV Exam Vital Signs Vital Signs Date Time Temp Pulse Resp B/P (MAP) Pulse Ox O2 Delivery O2 Flow Rate FiO2 09/10/24 07:30 90 17 98/56 (70) 99 09/10/24 07:30 Room Air* 0 21 09/10/24 06:35 99.1 99.1 General Appearance: Alert, Oriented X3, Cooperative, mild distress HEENT: Atraumatic, PERRLA Respiratory: Clear to auscultation, Normal air movement Cardiovascular: Regular rate, Normal S1, Normal S2, No murmurs Abdominal: Normal bowel sounds, Soft, No tenderness Extremities: No clubbing, No cyanosis, Normal pulses, No tenderness/swelling, Other (right leg edema) Skin: No rashes, No breakdown, No significant lesion Neuro: Normal gait, Normal speech, Normal tone Psych/Mental Status: Mental status NL, Mood NL Labs/Xrays Labs Test 09/10/24 06:44 Range/Units White Blood Count 5.4 4.4-10.8 10^3/uL Red Blood Count 2.52 L 4.5-5.90 10^6/uL Hemoglobin 7.2 L 13.5-17.5 g/dL Hematocrit 20.6 L 41.0-53.0 % Mean Corpuscular Volume 81.9 80.0-100.0 fL Mean Corpuscular Hemoglobin 28.5 28.0-32.0 pg Mean Corpuscular Hemoglobin Concent 34.7 32.0-36.0 g/dL Red Cell Distribution Width 16.2 H 11.8-14.3 % Platelet Count 87 L 140-450 10^3/uL Mean Platelet Volume 8.9 6.9-10.8 fL Neutrophils (%) (Auto) 77.9 37.0-80.0 % Lymphocytes (%) (Auto) 10.1 10.0-50.0 % Monocytes (%) (Auto) 2.5 0.0-12.0 % Eosinophils (%) (Auto) 7.6 H 0.0-7.0 % Basophils (%) (Auto) 1.9 0.0-2.0 % Neutrophils # (Auto) 4.2 1.6-8.6 10 ^3/uL Lymphocytes # (Auto) 0.5 0.4-5.4 10 ^3/uL Monocytes # (Auto) 0.1 0-1.3 10 ^3/uL Eosinophils # (Auto) 0.4 0-0.8 10 ^3/uL Basophils # (Auto) 0.1 0-0.2 10 ^3/uL Nucleated Red Blood Cells 0.0 % Sodium Level 142 # 136-145 mmol/L Potassium Level 3.9 3.5-5.1 mmol/L Chloride Level 110 H 98-107 mmol/L Carbon Dioxide Level 23 20-31 mmol/L Anion Gap 9 5-15 Blood Urea Nitrogen 13 9-23 mg/dL Creatinine 0.61 L 0.700-1.30 mg/dL Glomerular Filtration Rate Calc 105 >90 mL/min BUN/Creatinine Ratio 21.3 H 10.0-20.0 Serum Glucose 101 74-106 mg/dL Calcium Level 9.2 8.7-10.4 mg/dL Right lower extremity venous duplex Findings: The common femoral vein demonstrates appropriate compressibility and waveform variability. There is compressibility/patency of the great saphenous vein at the proximal thigh. The femoral vein demonstrates appropriate compressibility and waveform variability. The deep femoral vein demonstrates appropriate compressibility and waveform variability. The popliteal vein demonstrates appropriate compressibility and waveform variability. There is normal compressibility at the tibioperoneal trunk. Impression: No right femoropopliteal venous thrombosis. Assessment/Plan Assessment/Plan Assessment: Symptomatic anemia, Hypotension, COPD, Schizophrenia, Plan: Admit to Med-Surg, Transfuse 2 units PRBC, Manage/Monitor electrolytes closely, H&H post transfusion, Home medications reconciled, Plan discussed with: Patient My Orders Orders - ANNIKA SYED Procedure Category Date Status Time Admit ADMIT 09/10/24 Transmitted 10:09 Code Status CODE 09/10/24 Transmitted 10:09 Hydrocodone-Acet PHA 09/10/24 Logged 5/325mg Tab (Jamieson 10:15 Ondansetron Hcl PHA 09/10/24 Logged (Zofran) 10:15 Docusate Sodium PHA 09/10/24 Logged Capsule (Colace 10:15 Complete Blood Count LAB 09/11/24 Verified 04:00 Comprehensive LAB 09/11/24 Verified Metabolic Panel 04:00 Condition: Serious KATIA 09/10/24 In Process 10:09 Acetaminophen Tablet PHA 09/10/24 Logged (Tylenol Tablet) 10:15 Aspirin Enteric PHA 09/11/24 Verified Coated Tablet 10:00 Furosemide Tablet PHA 09/11/24 Verified (Lasix Tablet) 10:00 Midodrine Tablet PHA 09/10/24 Verified (Proamatine Tablet) 14:00 (Nf) Atorvastatin PHA 09/11/24 Verified Calcium 10:00 (Nf) Gabapentin PHA 09/10/24 Verified 22:00 (Nf) Mirtazapine PHA 09/10/24 Verified (Mirtazapine Oral 18:00 (Nf) Risperidone PHA 09/10/24 Verified 22:00 Date of Service: Sep 10, 2024 Billing Provider: ANNIKA SYED Common Visit Codes: [id number] INP/OBS CARE (MOD) ANNIKA SYED Sep 10, 2024 10:22
[2024-09-10] MEDS: MIDODRINE HCL 10 MG TAB PO SCH (12:34)
[2024-09-10] MEDS: MIRTAZAPINE 30 MG TAB PO SCH (18:48)
[2024-09-10] MEDS: GABAPENTIN 300 MG CAP PO SCH (21:16)
[2024-09-10] MEDS: risperiDONE 1 MG TAB PO SCH (21:16)
[2024-09-10] MEDS: ATORVASTATIN 20 MG TAB PO SCH (21:16)
[2024-09-11] VITALS (12 sets, daily range): BP systolic 91–104; BP diastolic 49–66; PULSE 74–96; RESP 16–18; TEMP 97.3–99.5; O2SAT 93–96
[2024-09-11 07:47] LABS: Hemoglobin 8.1 g/dL (13.5-17.5)
[2024-09-11 07:50] LABS: Hematocrit 23.8 % (41.0-53.0); Mean Corpuscular Hemoglobin 28.6 pg (28.0-32.0); Mean Corpuscular Hgb Conc. 34.2 g/dL (32.0-36.0); Mean Corpuscular Volume 83.6 fL (80.0-100.0); Red Blood Cells 2.84 10^6/uL (4.5-5.90); Red Cell Distribution Width 15.6 % (11.8-14.3); White Blood Cell 5.5 10^3/uL (4.4-10.8)
[2024-09-11 08:08] LABS: Platelet Count (auto) 76 10^3/uL (140-450)
[2024-09-11 08:09] LABS: Basophils % (manual) 0 (0.0-2.0); Blast Cells 0; Metamyelocytes % 0; Myelocytes % 0; Promyelocytes % 0; Reactive Lymphocytes 0
[2024-09-11 08:31] LABS: Alkaline Phosphatase 65 U/L (46-116); Aspartate Aminotransferase 22 U/L (<34); BUN/Creatinine Ratio 18.6 (10.0-20.0); Blood Urea Nitrogen 11 mg/dL (9-23); Calcium 9.2 mg/dL (8.7-10.4); Glucose 93 mg/dL (74-106); Total Protein 6.6 g/dL (5.7-8.2)
[2024-09-11 08:32] LABS: Alanine Aminotransferase 42 U/L (7-40); Albumin 3.1 g/dL (3.2-4.8); Bilirubin, Total 0.7 mg/dL (0.2-1.0); Chloride 109 mmol/L (98-107)
[2024-09-11 08:49] LABS: Sodium 138 mmol/L (136-145)
[2024-09-11 08:50] LABS: Anion Gap 8 (5-15); Carbon Dioxide 21 mmol/L (20-31)
[2024-09-11 09:01] LABS: Band Neutrophils % (manual) 15; Eosinophils % (manual) 5 (0-7); Lymphocytes % (manual) 14 (10.0-50.0); Monocytes % (manual) 2 (0-12); Platelet Estimate Decreased
[2024-09-11] MEDS: ASPirin-EC 81 mg tab PO SCH (09:12)
[2024-09-11] MEDS: FUROSEMIDE 40 MG TAB PO SCH (09:13)
[2024-09-11] MEDS: HYDROcodone-ACET 5/325MG TAB PO PRN (09:15)
--- NOTE | 2024-09-11 11:04 | DVHPN2 ---
Subjective Patient denies any symptoms Reviewed: Care Plan, H&P, Labs, Medications Changes from previous H/P or p: No Changes General: Per HPI Eyes: No Pain, No Vision change, No Conjunctivae inflammation, No Eyelid inflammation, No Other, No Redness Cardiovascular: No Chest Pain, No Palpitations, No Orthopnea, No Paroxysmal Noc. Dyspnea, No Edema, No Lt Headedness, No Other Respiratory: No Cough, No Dry, No Shortness of breath, No SOB with excertion, No Wheezing, No Hemoptysis, No Pleuritic Pain, No Sputum, No Other Gastrointestinal: No Nausea, No Vomiting, No Abdominal Pain, No Diarrhea, No Constipation, No Melena, No Hematochezia, No Other Genitourinary: No Dysuria, No Frequency, No Incontinence, No Hematuria, No Retention, No Other Musculoskeletal: No other, No neck pain, No shoulder pain, No arm pain, No back pain, No hand pain, No leg pain, No foot pain Skin: No Rash, No Lesions, No Jaundice, No Bruising, No Other Objective Vitals Vital Signs Date Time Temp Pulse Resp B/P (MAP) Pulse Ox O2 Delivery O2 Flow Rate FiO2 09/11/24 09:13 102/60 09/11/24 09:00 98.1 77 18 93 98.1 09/11/24 08:00 Room Air* 0 21 Intake/Output Intake and Output 09/11/24 07:00 Intake Total 1200 ml Output Total 200 ml Balance 1000 ml Intake Oral 300 ml Blood Product 900 ml Other 0 ml Output Urine Total 200 ml General Appearance: Alert, Oriented X3, Cooperative, No acute distress HEENT: Atraumatic, PERRLA Cardiovascular: Normal S1, Normal S2 Abdomen: Normal bowel sounds, Soft, No tenderness Genitourinary: No Apparent Abnormalities Skin: Dry, Intact Psych/Mental Status: Mental status NL, Mood NL Medications Current Medications Medications Dose Ordered Sig/Fabricio Route Start Time Stop Time Status Last Admin Dose Admin Acetaminophen/ Hydrocodone Bitart 1 tab Q4HP PRN PO 09/10/24 10:15 09/11/24 09:15 1 TAB Ondansetron HCl 4 mg Q4HP PRN IV 09/10/24 10:15 Docusate Sodium 100 mg BIDPRN PRN PO 09/10/24 10:15 Acetaminophen 650 mg Q6HP PRN PO 09/10/24 10:15 Aspirin 81 mg DAILY PO 09/11/24 10:00 09/11/24 09:12 81 MG Furosemide 40 mg DAILY PO 09/11/24 10:00 Midodrine 10 mg TIDWM PO 09/10/24 12:00 09/11/24 09:12 10 MG Atorvastatin Calcium 40 mg HS PO 09/10/24 22:00 09/10/24 21:16 40 MG Gabapentin 600 mg BID PO 09/10/24 22:00 09/11/24 09:12 600 MG Mirtazapine 45 mg QPM PO 09/10/24 18:00 09/10/24 18:48 45 MG Risperidone 2 mg BID PO 09/10/24 22:00 09/11/24 09:12 2 MG Laboratory Results Laboratory Tests 09/11/24 07:10 Chemistry Test 09/11/24 07:10 Albumin 3.1 g/dL (3.2-4.8) L Calcium Level 9.2 mg/dL (8.7-10.4) Total Protein 6.6 g/dL (5.7-8.2) LFT Test 09/11/24 07:10 Alanine Aminotransferase (ALT) 42 U/L (7-40) H Alkaline Phosphatase 65 U/L (46-116) Aspartate Amino Transferase (AST) 22 U/L (<34) Total Bilirubin 0.7 mg/dL (0.2-1.0) Labs and/or images reviewed: Labs reviewed by me, Image(s) reviewed by me Assessment/Plan Assessment/Plan Impression: -myelodysplastic disorder -anemia of chronic disease -schizophrenia Plan: -hemoglobin 8.1. Transfuse one additional unit PRBC -continue antipsychotic medications -continue midodrine -repeat labs in a.m. Total time spent with patient discussing and formulating plan of care: 35 minutes. This medical document was created using an electronic medical record system with [employer] dictation system. Although this document has been carefully reviewed, there may still be some phonetic and typographical errors. These areas are purely typographical due to imperfections of the software programs, and do not reflect any compromise in the patient's medical care. Plan discussed with: Patient, Other (Rn) My Orders Orders - YOANDY SALAS [employer] P[employer]TER Procedure Category Date Status Time Regular Diet DIET 09/11/24 Transmitted Lunch Packedcell-Noactive BBK 09/11/24 Verified Bleeding 11:00 Hemoglobin & LAB 09/12/24 Verified Hematocrit 04:00 Date of Service: Sep 11, 2024 Billing Provider: YOANDY SALAS NP Common Visit Codes: [id number] INP/OBS CARE(HIGH) YOANDY SALAS NP Sep 11, 2024 11:04
[2024-09-12 01:00] VITALS: BP 93/58; PULSE 85; RESP 18; TEMP 97.9; O2SAT 95
[2024-09-12 05:00] VITALS: BP 91/59; PULSE 78; RESP 18; TEMP 98.5; O2SAT 95
[2024-09-12 05:41] VITALS: BP 106/72; PULSE 80
[2024-09-12 06:27] LABS: Hematocrit 27.7 % (41.0-53.0); Hemoglobin 9.3 g/dL (13.5-17.5)
[2024-09-12 08:00] VITALS: PULSE 74; RESP 18
--- NOTE | 2024-09-12 08:43 | DVHDS2 ---
Discharge Summary Date of Admission Sep 10, 2024 at 10:09 Date of Discharge: Sep 12, 2024 Admitting Diagnosis Anemia Labs/Diagnostic Data: Laboratory Results Test 09/12/24 05:56 09/11/24 07:10 09/10/24 06:44 Hemoglobin 9.3 g/dL (13.5-17.5) Hematocrit 27.7 % (41.0-53.0) White Blood Count 5.5 10^3/uL (4.4-10.8) Red Blood Count 2.84 10^6/uL (4.5-5.90) Mean Corpuscular Volume 83.6 fL (80.0-100.0) Mean Corpuscular Hemoglobin 28.6 pg (28.0-32.0) Mean Corpuscular Hemoglobin Concent 34.2 g/dL (32.0-36.0) Red Cell Distribution Width 15.6 % (11.8-14.3) Platelet Count 76 10^3/uL (140-450) Mean Platelet Volume 9.1 fL (6.9-10.8) Neutrophils (%) (Auto) % (37.0-80.0) Lymphocytes (%) (Auto) % (10.0-50.0) Monocytes (%) (Auto) % (0.0-12.0) Basophils (%) (Auto) % (0.0-2.0) Neutrophils # (Auto) 10 ^3/uL (1.6-8.6) Lymphocytes # (Auto) 10 ^3/uL (0.4-5.4) Monocytes # (Auto) 10 ^3/uL (0-1.3) Differential Total Cells Counted 100.0 (100) Neutrophils % (Manual) 64 (37.0-80.0) Band Neutrophils % (Manual) 15 Lymphocytes % (Manual) 14 (10.0-50.0) Monocytes % (Manual) 2 (0-12) Eosinophils % (Manual) 5 (0-7) Basophils % (Manual) 0 (0.0-2.0) Metamyelocytes % (manual) 0 Myelocytes % (Manual) 0 Promyelocytes % (Manual) 0 Blast Cells % (Manual) 0 Reactive Lymphocytes 0 Platelet Estimate Decreased Sodium Level 138 mmol/L (136-145) Potassium Level 4.0 mmol/L (3.5-5.1) Chloride Level 109 mmol/L (98-107) Carbon Dioxide Level 21 mmol/L (20-31) Anion Gap 8 (5-15) Blood Urea Nitrogen 11 mg/dL (9-23) Creatinine 0.59 mg/dL (0.700-1.30) Glomerular Filtration Rate Calc 106 mL/min (>90) BUN/Creatinine Ratio 18.6 (10.0-20.0) Serum Glucose 93 mg/dL (74-106) Calcium Level 9.2 mg/dL (8.7-10.4) Total Bilirubin 0.7 mg/dL (0.2-1.0) Aspartate Amino Transferase (AST) 22 U/L (<34) Alanine Aminotransferase (ALT) 42 U/L (7-40) Alkaline Phosphatase 65 U/L (46-116) Total Protein 6.6 g/dL (5.7-8.2) Albumin 3.1 g/dL (3.2-4.8) Eosinophils (%) (Auto) 7.6 % (0.0-7.0) Eosinophils # (Auto) 0.4 10 ^3/uL (0-0.8) Basophils # (Auto) 0.1 10 ^3/uL (0-0.2) Nucleated Red Blood Cells 0.0 % Other Laboratory Tests 09/12/24 05:56 09/11/24 07:10 Brief Hx & Hospital Course: History of Present Illness Euegne Alejandro is a 69-year-old male with past medial history of myelodysplastic syndrome, prostate cancer status post resection, COPD, schizophrenia, hypotension, and previous admissions for severe anemia due to myelodysplastic syndrome who presented to the emergency department with a chief complaint of fatigue and generalized weakness. Patient states he has been feeling weak for a couple days. Course of hospitalization: Patient was continued on all previous home medications. Patient received a total of 3 units PRBCs. Patient's hemoglobin 9.1. Patient will be discharged home and is instructed to continue all home medications and follow up with his PCP in 1-2 weeks. Physical examination General: Alert and Oriented x3. No acute distress. Well-nourished. Eyes: EOMI. Anicteric. HENT: Moist mucous membranes. Lungs: Clear to auscultation bilaterally. No accessory muscle use. Cardiovascular: Regular rate and rhythm. No murmur. No JVD. Abdomen: Soft, non-tender and non-distended. No palpable masses. Extremities: No edema. Non-tender. Skin: No rashes or lesions. Warm. Neurologic: No focal neurological deficits. CN II-XII grossly intact, but not individually tested. Psychiatric: Cooperative. Appropriate mood and affect. Total time spent with patient discussing and formulating plan of care: 35 minutes. This medical document was created using an electronic medical record system with [employer] dictation system. Although this document has been carefully reviewed, there may still be some phonetic and typographical errors. These areas are purely typographical due to imperfections of the software programs, and do not reflect any compromise in the patient's medical care. Condition at Discharge: Fair Final Diagnosis/Problems List Anemia secondary to myelodysplastic disorder Secondary diagnosis: -anemia of chronic disease -schizophrenia Discharge Disposition: Home Discharge Instruct/Medications Diet: Regular Activity: No Restrictions, As Tolerated Follow Up/Referral: Follow up with PCP in 1-2 weeks Medications: Continue all home medications 36 Discharge Statement: "Patient was advised to return to the ER or call 911 if any headaches, dizziness, shortness of breath, chest pain, abdominal pain, bleeding, fevers, or worsening of medical condition. Patient was counseled about treatment plan, medications, possible side effects, patientverbalized understanding. All questions were answered to the best of my ability. This discharge took greater then 30 minutes in planning, reviewing documentation, counseling the patient, and discussing with other team members." ASSESSMENT ASSESSMENT Assessment Anemia secondary to myelodysplastic disorder Date of Service: Sep 12, 2024 Billing Provider: YOANDY SALAS NP Common Visit Codes: [id number] DISCH DAY >30min YOANDY SALAS NP Sep 12, 2024 08:43
[2024-09-12] MEDS ORDERED: AUG875T PO (08:50)
[2024-09-12 09:00] VITALS: BP 95/62; PULSE 74; RESP 18; TEMP 98.3; O2SAT 98
[2024-09-12] MEDS: cefTRIAXone 2GM/50ML D5W 50 ML IV ONE (09:58)
[2024-09-12 12:01] VITALS: BP 95/62
== END 2024-09-12 13:33 | disposition home or self-care (01) | DRG 812 ==
LOC: ER 06:11 → OVERFLOW 10:09 → WEST WING 22:00
PROVIDERS: ADMIT Nurse Practitioner Acute Care; ATTEND Nurse Practitioner Acute Care
PROC: 30233N1 Transfusion of Nonautologous Red Blood Cells into Peripheral Vein, Percutaneous Approach (ICD-10-PCS; principal; 2024-09-10)
DX: D46.9 Myelodysplastic syndrome, unspecified (principal); I95.9 Hypotension, unspecified; J44.9 Chronic obstructive pulmonary disease, unspecified; F20.9 Schizophrenia, unspecified; T50.1X5A Adverse effect of loop [high-ceiling] diuretics, initial encounter; F17.210 Nicotine dependence, cigarettes, uncomplicated; Z86.718 Personal history of other venous thrombosis and embolism; Z85.46 Personal history of malignant neoplasm of prostate; Z79.899 Other long term (current) drug therapy
CPT/HCPCS: 36415; 80048; 80053; 85007; 85014; 85018; 85025; 85027; 86850; 86900; 86901; 86902; 86922; 87081; 93971; G0378

== ENCOUNTER 2024-09-17 06:14 | Emergency (ER) | payer OTHER, MEDICAID ==
[~2024-09-17] VITALS: Ht 180.3 cm; Wt 70.4 kg
[~2024-09-17 06:14] MED LIST changes: +AUG875T PO; -IBUP-1455 PO
--- NOTE | 2024-09-17 06:30 | ED.PDOC ---
History of Present Illness HPI Comments 69 y/o M, with PMHx of COPD, HLD, and anemia presents to the ED for CC of abnormal labs. Patient reports, to the ED for weekly blood transfusion; patient endorses associated symptoms of fatigue and weakness. Patients last blood transfusion was on 09/12/24. Patient denies active bleeding, nausea, vomiting, or melena. No other symptoms or modifying factors present at this time. Time Seen by MD: 06:23 Primary Care Provider: MADDIE Reviewed Notes: Nurses Notes, Medications, Allergies Allergies: Coded Allergies: NO KNOWN ALLERGIES (Unverified , 12/04/23) Home Meds Active Scripts Amoxicillin & Pot Clavulanate (AUGMENTIN TABLET) 875 Mg Tb, 875 MG PO BID for 7 Days, #14 TAB Prov:YOANDY SALAS BLADE GRINDER 09/12/24 Midodrine Hcl (Midodrine Hcl) 10 Mg Tab, 10 MG PO TID for 30 Days, #90 TAB 3 Refills Prov:YOANDY SALAS BLADE GRINDER 06/06/24 Reported Medications Aspirin (Aspirin Low Dose) 81 Mg Tab, 1 TAB PO DAILY 09/03/24 Furosemide (Furosemide) 40 Mg Tab, 1 TAB PO DAILY 07/02/24 Hydrocodone-Acetaminophen (Hydrocodone Bitartrate/AC 10-325 mg) 1 Tab Tab, 1 TAB PO, TAB 06/18/24 Risperidone (Risperidone) 2 Mg Tab, 2 MG PO BID, TAB 12/05/23 Mirtazapine (Mirtazapine Oral Disintegrating Tablet) 45 Mg Tab, 1 TAB PO QPM, #30 TAB 1 Refill 12/05/23 Melatonin (KP MELATONIN) 3 Mg Tab, 3 MG PO HS, TAB 12/05/23 Gabapentin (Gabapentin) 600 Mg Tab, 600 MG PO BID, TAB 12/05/23 Fluticasone Furoate (Inhalatio (Arnuity Ellipta) 200 Mcg/Act Inh, 200 MCG IN, INHALER 12/05/23 Atorvastatin Calcium (ATORVASTATIN CALCIUM) 40 Mg Tab, 1 TAB PO DAILY, #30 TAB 5 Refills 12/05/23 Albuterol Sulfate (VENTOLIN MDI) 90 Mcg Ih, 90 MCG IN, INH 12/05/23 Discontinued Scripts Ibuprofen Micronized (Ibuprofen) 800 Mg Tab, 1 TAB PO TIDP PRN for 10 Days, #30 TAB Prov:VENKAT SMILEY MD 09/05/24 Information Source: Patient Mode of Arrival: Ambulatory Severity: Moderate Timing: Minutes Duration: Since onset Prehospital treatment: None Past Medical History PAST MEDICAL HISTORY: Anemia, COPD, High Lipids Surgical History: Tonsillectomy Family History Family History: Reviewed,noncontributory to illness, Unknown Social History Smoker: Cigarettes, Less Than 1 Pack/Day Alcohol: Occasionally Drugs: Denies Drug Use Lives In: Home Constitutional: reports: fatigue, weakness; denies: chills, diaphoresis, fever, malaise, sweats, others EENTM: denies: blurred vision, double vision, ear bleeding, ear discharge, ear drainage, ear pain, ear ringing, eye pain, eye redness, hearing loss, mouth pain, mouth swelling, nasal discharge, nose bleeding, nose congestion, nose pain, photophobia, tearing, throat pain, throat swelling, voice changes, others Respiratory: denies: cough, hemoptysis, orthopnea, SOB at rest, shortness of breath, SOB with excertion, stridor, wheezing, others Cardiovascular: denies: chest pain, dizzy spells, diaphoresis, Dyspnea on e xertion, edema, irregular heart beat, left arm pain, lightheadedness, palpitations, PND, syncope, others Gastrointestinal: denies: abdomen distended, abdominal pain, blood streaked bowels, constipated, diarrhea, dysphagia, difficulty swallowing, hematemesis, melena, nausea, poor appetite, poor fluid intake, rectal bleeding, rectal pain, vomiting, others Genitourinary: denies: burning, dysuria, flank pain, frequency, hematuria, incontinence, penile discharge, penile sore, pain, testicle pain, testicle swelling, urgency, others Neurological: denies: dizziness, fainting, headache, left sided numbness, left sided weakness, numbness, paresthesia, pre-existing deficit, right sided numbness, right sided weakness, seizure, speech problems, tingling, tremors, weakness, others Musculoskeletal: denies: back pain, gout, joint pain, joint swelling, muscle pain, muscle stiffness, neck pain, others Integumetry: denies: bruises, change in color, change in hair/nails, dryness, laceration, lesions, lumps, rash, wounds, others Allergic/Immunocompromised: denies: Difficulty Healing, Frequent Infections, Hives, Itching, others Hematologic/Lymphatic: denies: anemia, blood clots, easy bleeding, easy bruising, swollen glands, others Endocrine: denies: excessive hunger, excessive sweating, excessive thirst, excessive urination, flushing, intolerance to cold, intolerance to heat, unexplained weight gain, unexplained weight loss, others Psychiatric: denies: anxiety, bipolar disorder, depression, hopeless, panic disorder, schizophrenia, sleepless, suicidal, others All Other Systems: Reviewed and Negative Physical Exam General Appearance: Moderate Distress HEENT: Normal ENT Inspection, Pharynx Normal, TMs Normal Neck: Full Range of Motion, Non-Tender, Normal, Normal Inspection Respiratory: Chest Non-Tender, Lungs Clear, No Accessory Muscle Use, No Respi ratory Distress, Normal Breath Sounds Cardiovascular: No Edema, No JVD, No Murmur, No Gallop, Normal Peripheral Pulses, Regular Rate/Rhythm Breast Exam: Deferred Gastrointestinal: No Organomegaly, Non Tender, No Pulsatile Mass, Normal Bowel Sounds, Soft Genitalia: Deferred Pelvic: Deferred Rectal: Deferred Extremities: No calf tenderness, Normal capillary refill, Normal inspection, Normal range of motion, Non-tender, No pedal edema, Swelling (Right lower extremity) Musculoskeletal : Apperance: Normal Neurologic: Alert, corrections corporal II-XII nml as Tested, No Motor Deficits, Normal Affect, Normal Mood, No Sensory Deficits Cerebellar Function: Normal Reflexes: Normal Skin: Dry, Pallor, Warm Peripheral Pulses: 3+ Radial (R), 3+ Radial (L) Lymphatic: No Adenopathy Was a procedure done? Was a procedure done?: No Differential Dx Considerations may include: anemia, X-Ray, Labs, Meds, VS Vital Signs Date Time Temp Pulse Resp B/P (MAP) Pulse Ox O2 Delivery O2 Flow Rate FiO2 09/17/24 06:22 97.9 108 20 123/65 (84) 99 97.9 Patient alert. He is anemic. Vitals stable. Answering all questions. He reviewed his previous visit. He does get blood transfusions. Unknown the reason for his anemia. Denies any bleeding. Ambulating. Explained to the patient. Continue monitoring. Time of 1ST Reevaluation: 06:33 Reevaluation 1ST: Improved Patient Education/Counseling: Diagnosis, Treatment Family Education/Counseling: No Family Present SEPSIS Sepsis Screen Physician Orders Complete Blood Count (09/17/24 06:32) Vital Signs Date Time Temp Pulse Resp B/P (MAP) Pulse Ox O2 Delivery O2 Flow Rate FiO2 09/17/24 06:22 97.9 108 20 123/65 (84) 99 97.9 Departure 1 Departure Time of Disposition: 06:57 Impression: Primary Impression: Symptomatic anemia Disposition: ADMITTED INPATIENT Admit to: Med Surg Condition: Guarded Critical Care Note Critical Care Time?: No Stability Stability form required: No Heart Score Heart Score: Heart Score Response (Comments) Value History N/A 0 EKG N/A 0 Age N/A 0 Risk Factors N/A 0 Troponin N/A 0 Total 0 I personally scribed for TEE ATKINS MD ([email or web address]) on 09/17/24 at 06:30. Electronically submitted by Maria Elena Barton ([email or web address]). TEE ATKINS MD Sep 17, 2024 06:30
[2024-09-17 07:06] LABS: Hematocrit 27.4 % (41.0-53.0); Hemoglobin 9.5 g/dL (13.5-17.5); Mean Corpuscular Hemoglobin 29.1 pg (28.0-32.0); Mean Corpuscular Volume 83.8 fL (80.0-100.0); Nucleated Red Blood Cells % 0.0 %
[2024-09-17 07:16] VITALS: BP 123/63; PULSE 103; RESP 16; TEMP 97.7; O2SAT 99
== END 2024-09-17 09:25 | disposition home or self-care (01) ==
LOC: ER 06:14
DX: D64.9 Anemia, unspecified (principal); E78.5 Hyperlipidemia, unspecified; F17.210 Nicotine dependence, cigarettes, uncomplicated; J44.9 Chronic obstructive pulmonary disease, unspecified; Z79.82 Long term (current) use of aspirin; Z79.899 Other long term (current) drug therapy; Z90.89 Acquired absence of other organs
CPT/HCPCS: 36415; 85025

== ENCOUNTER 2024-09-24 05:45 | Inpatient (IN) | payer OTHER, MEDICAID ==
[~2024-09-24] VITALS: Ht 180.3 cm; Wt 70.1 kg
[2024-09-24 06:35] LABS: Nucleated Red Blood Cells % 0.0 %
[2024-09-24 06:41] LABS: Hematocrit 21.3 % (41.0-53.0); Hemoglobin 7.3 g/dL (13.5-17.5); Mean Corpuscular Hemoglobin 28.6 pg (28.0-32.0); Mean Corpuscular Volume 83.8 fL (80.0-100.0)
--- NOTE | 2024-09-24 06:46 | ED.PDOC ---
History of Present Illness HPI Comments 69 y/o M, with PMHx of anemia, COPD, and HLD presents to the ED for CC of abnormal labs. Patient reports to the ED for weekly blood transfusion d/t low hemoglobin levels; endorses last blood transfusion to have been on 09/12/24. Patient relays, associated symptoms of weakness, fatigue, and dizziness as a res ult. Patient denies active bleeding, melena, or hematemesis. No other symptoms or modifying factors present at this time. Chief Complaint: Dizziness Time Seen by MD: 07:00 Primary Care Provider: MADDIE Reviewed Notes: Nurses Notes, Medications, Allergies Allergies: Coded Allergies: NO KNOWN ALLERGIES (Unverified , 12/04/23) Home Meds Active Scripts Midodrine Hcl (Midodrine Hcl) 10 Mg Tab, 10 MG PO TID for 30 Days, #90 TAB 3 Refills Prov:YOANDY SALAS HEAD RIGGER 06/06/24 Reported Medications Aspirin (Aspirin Low Dose) 81 Mg Tab, 1 TAB PO DAILY 09/03/24 Furosemide (Furosemide) 40 Mg Tab, 1 TAB PO DAILY 07/02/24 Risperidone (Risperidone) 2 Mg Tab, 2 MG PO BID, TAB 12/05/23 Mirtazapine (Mirtazapine Oral Disintegrating Tablet) 45 Mg Tab, 1 TAB PO QPM, #30 TAB 1 Refill 12/05/23 Melatonin (KP MELATONIN) 3 Mg Tab, 3 MG PO HS, TAB 12/05/23 Gabapentin (Gabapentin) 600 Mg Tab, 600 MG PO BID, TAB 12/05/23 Fluticasone Furoate (Inhalatio (Arnuity Ellipta) 200 Mcg/Act Inh, 200 MCG IN, INHALER 12/05/23 Atorvastatin Calcium (ATORVASTATIN CALCIUM) 40 Mg Tab, 1 TAB PO DAILY, #30 TAB 5 Refills 12/05/23 Albuterol Sulfate (VENTOLIN MDI) 90 Mcg Ih, 90 MCG IN, INH 12/05/23 Discontinued Reported Medications Hydrocodone-Acetaminophen (Hydrocodone Bitartrate/AC 10-325 mg) 1 Tab Tab, 1 TAB PO, TAB 06/18/24 Discontinued Scripts Amoxicillin & Pot Clavulanate (AUGMENTIN TABLET) 875 Mg Tb, 875 MG PO BID for 7 Days, #14 TAB Prov:YOANDY SALAS HEAD RIGGER 09/12/24 Information Source: Patient Mode of Arrival: Ambulatory Severity: Moderate Timing: Days Duration: Since onset Prehospital treatment: None Past Medical History PAST MEDICAL HISTORY: Anemia, COPD, High Lipids Surgical History: Tonsillectomy Family History Family History: Reviewed,noncontributory to illness, Unknown Social History Smoker: Cigarettes, Less Than 1 Pack/Day Alcohol: Occasionally Drugs: Denies Drug Use Lives In: Home Constitutional: reports: weakness; denies: chills, diaphoresis, fatigue, fever, malaise, sweats, others EENTM: denies: blurred vision, double vision, ear bleeding, ear discharge, ear drainage, ear pain, ear ringing, eye pain, eye redness, hearing loss, mouth pain, mouth swelling, nasal discharge, nose bleeding, nose congestion, nose pain, photophobia, tearing, throat pain, throat swelling, voice changes, others Respiratory: reports: shortness of breath; denies: cough, hemoptysis, orthopnea, SOB at rest, SOB with excertion, stridor, wheezing, others Cardiovascular: denies: chest pain, dizzy spells, diaphoresis, Dyspnea on e xertion, edema, irregular heart beat, left arm pain, lightheadedness, palpitations, PND, syncope, others Gastrointestinal: denies: abdomen distended, abdominal pain, blood streaked bowels, constipated, diarrhea, dysphagia, difficulty swallowing, hematemesis, melena, nausea, poor appetite, poor fluid intake, rectal bleeding, rectal pain, vomiting, others Genitourinary: denies: burning, dysuria, flank pain, frequency, hematuria, incontinence, penile discharge, penile sore, pain, testicle pain, testicle swelling, urgency, others Neurological: denies: dizziness, fainting, headache, left sided numbness, left sided weakness, numbness, paresthesia, pre-existing deficit, right sided numbness, right sided weakness, seizure, speech problems, tingling, tremors, weakness, others Musculoskeletal: denies: back pain, gout, joint pain, joint swelling, muscle pain, muscle stiffness, neck pain, others Integumetry: denies: bruises, change in color, change in hair/nails, dryness, laceration, lesions, lumps, rash, wounds, others Allergic/Immunocompromised: denies: Difficulty Healing, Frequent Infections, Hives, Itching, others Hematologic/Lymphatic: denies: anemia, blood clots, easy bleeding, easy bruising, swollen glands, others Endocrine: denies: excessive hunger, excessive sweating, excessive thirst, excessive urination, flushing, intolerance to cold, intolerance to heat, unexplained weight gain, unexplained weight loss, others Psychiatric: denies: anxiety, bipolar disorder, depression, hopeless, panic disorder, schizophrenia, sleepless, suicidal, others All Other Systems: Reviewed and Negative Physical Exam General Appearance: No Apparent Distress, Normal HEENT: Normal ENT Inspection, Pharynx Normal Neck: Full Range of Motion, Non-Tender, Normal, Normal Inspection Respiratory: Chest Non-Tender, Lungs Clear, No Accessory Muscle Use, No Respir atory Distress, Normal Breath Sounds Cardiovascular: No Edema, No Murmur, No Gallop, Normal Peripheral Pulses, Regular Rate/Rhythm Breast Exam: Deferred Gastrointestinal: No Organomegaly, Non Tender, No Pulsatile Mass, Normal Bowel Sounds, Soft Genitalia: Deferred Pelvic: Deferred Rectal: Deferred Extremities: No calf tenderness, Normal capillary refill, Normal inspection, Normal range of motion, Non-tender, No pedal edema Musculoskeletal : Apperance: Normal Neurologic: Alert, fur cleaner II-XII nml as Tested, No Motor Deficits, Normal Affect, Normal Mood, No Sensory Deficits Cerebellar Function: Normal Reflexes: Normal Skin: Dry, Normal Color, Warm Lymphatic: No Adenopathy Was a procedure done? Was a procedure done?: No Differential Dx Considerations may include: ANEMIA, MYELODYSPLASTIC SYNDROME X-Ray, Labs, Meds, VS Vital Signs Date Time Temp Pulse Resp B/P (MAP) Pulse Ox O2 Delivery O2 Flow Rate FiO2 09/24/24 06:03 98.8 124 20 107/56 (73) 97 98.8 Lab Test 09/24/24 06:10 09/24/24 05:36 Range/Units White Blood Count 7.9 # 4.4-10.8 10^3/uL Red Blood Count 2.54 L 4.5-5.90 10^6/uL Hemoglobin 7.3 #L 13.5-17.5 g/dL Hematocrit 21.3 #L 41.0-53.0 % Mean Corpuscular Volume 83.8 80.0-100.0 fL Mean Corpuscular Hemoglobin 28.6 28.0-32.0 pg Mean Corpuscular Hemoglobin Concent 34.2 32.0-36.0 g/dL Red Cell Distribution Width 15.5 H 11.8-14.3 % Platelet Count 65 L 140-450 10^3/uL Mean Platelet Volume 9.1 6.9-10.8 fL Neutrophils (%) (Auto) 88.9 H 37.0-80.0 % Lymphocytes (%) (Auto) 5.9 L 10.0-50.0 % Monocytes (%) (Auto) 2.7 0.0-12.0 % Eosinophils (%) (Auto) 1.5 0.0-7.0 % Basophils (%) (Auto) 1.0 0.0-2.0 % Neutrophils # (Auto) 7.1 1.6-8.6 10 ^3/uL Lymphocytes # (Auto) 0.5 0.4-5.4 10 ^3/uL Monocytes # (Auto) 0.2 0-1.3 10 ^3/uL Eosinophils # (Auto) 0.1 0-0.8 10 ^3/uL Basophils # (Auto) 0.1 0-0.2 10 ^3/uL Nucleated Red Blood Cells 0.0 % Sodium Level 134 L 136-145 mmol/L Potassium Level 3.5 3.5-5.1 mmol/L Chloride Level 104 98-107 mmol/L Carbon Dioxide Level 22 20-31 mmol/L Anion Gap 8 5-15 Blood Urea Nitrogen 10 9-23 mg/dL Creatinine 0.72 0.700-1.30 mg/dL Glomerular Filtration Rate Calc 100 >90 mL/min BUN/Creatinine Ratio 13.9 10.0-20.0 Serum Glucose 125 H 74-106 mg/dL Calcium Level 8.7 8.7-10.4 mg/dL Prothrombin Time 13.3 H 9.3-11.8 sec Prothrombin Time INR 1.29 H 0.9-1.15 Activated Partial Thromboplast Time 30.7 24.5-34.5 SEC Current Medications Medications (Trade) Dose Ordered Sig/Fabricio Route Start Time Stop Time Status Last Admin Docusate Sodium (Colace Capsule) 100 mg BIDPRN PRN PO 09/24/24 08:45 09/24/24 10:48 Time of 1ST Reevaluation: 07:30 Reevaluation 1ST: Unchanged Patient Education/Counseling: Diagnosis, Treatment Family Education/Counseling: No Family Present SEPSIS Sepsis Screen Date sepsis recognized/suspect: Sep 24, 2024 Time Sepsis recognized/suspect: 0549 Recent Procedure: No On Antibiotic Therapy: No Respiratory Rate >20: No Heart Rate >90: Yes Temp<36 C (96.8 F) or >38.3 C: No SBP <90 or MAP <65 mmHG: No New Acute Mental Status Change: No Is the patient on CPAP, BIPAP,: No Physician Orders Aborh Type (09/24/24 07:36) Antibody Screen (09/24/24 07:36) Vital Signs Date Time Temp Pulse Resp B/P (MAP) Pulse Ox O2 Delivery O2 Flow Rate FiO2 09/24/24 06:03 98.8 124 20 107/56 (73) 97 98.8 Laboratory Tests Test 09/24/24 06:10 White Blood Count 7.9 10^3/uL (4.4-10.8) # Medications Medications Dose Ordered Sig/Fabricio Route Start Time Stop Time Status Last Admin Dose Admin Docusate Sodium 100 mg BIDPRN PRN PO 09/24/24 08:45 09/24/24 10:48 Departure 1 Departure Time of Disposition: 13:56 (PATIENT WITH SYMPTOMATIC ANEMIA LIKELY SECONDARY to myelodysplastic syndrome) Impression: Primary Impression: Symptomatic anemia Additional Impression: MDS (myelodysplastic syndrome) Disposition: ADMITTED INPATIENT Admit to: Med Surg Condition: Serious Critical Care Note Critical Care Time?: Yes Critical care comment: Symptomatic anemia Authorized and Performed by: Rayray Dougherty MD Total critical care time: Approximately 38 minutes Due to a high probability of clinically significant, life threatening deterioration, the patient required my highest level of preparedness to intervene emergently and I personally spent this critical care time directly and personally managing the patient. This critical care time included obtaining a history; examining the patient; pulse oximetry; ordering and review of studies; arranging urgent treatment with development of a management plan; evaluation of patient's response to treatment; frequent reassessment; and, discussions with other providers. This critical care time was performed to assess and manage the high probability of imminent, life-threatening deterioration that could result in multi-organ failure. It was exclusive of separately billable procedures and treating other patients and teaching time. Please see my other sections and the rest of the note for further information on patient assessment and treatment. Stability Stability form required: No Heart Score Heart Score: Heart Score Response (Comments) Value History N/A 0 EKG N/A 0 Age N/A 0 Risk Factors N/A 0 Troponin N/A 0 Total 0 I personally scribed for RAYRAY DOUGHERTY MD ([email or web address]) on 09/24/24 at 06:46. Electronically submitted by Maria Elena Barton ([email or web address]). RAYRAY DOUGHERTY MD Sep 24, 2024 06:46
[2024-09-24 06:48] LABS: INR 1.29 (0.9-1.15); Partial Thromboplastin Time 30.7 SEC (24.5-34.5); Prothrombin Time 13.3 sec (9.3-11.8)
[2024-09-24 06:50] LABS: Chloride 104 mmol/L (98-107); Potassium 3.5 mmol/L (3.5-5.1)
[2024-09-24 06:51] LABS: Anion Gap 8 (5-15); Carbon Dioxide 22 mmol/L (20-31)
[2024-09-24 06:53] LABS: Calcium 8.7 mg/dL (8.7-10.4); Sodium 134 mmol/L (136-145)
[2024-09-24 06:57] LABS: BUN/Creatinine Ratio 13.9 (10.0-20.0); Blood Urea Nitrogen 10 mg/dL (9-23); Glucose 125 mg/dL (74-106)
[2024-09-24] MEDS ORDERED: ONDANSETRON HCL 4 MG/2 ML VIAL IV PRN (08:45)
--- NOTE | 2024-09-24 09:02 | DVHHP2 ---
History of Present Illness Reason for Visit: Dizziness History of Present Illness Eugene Alejandro is a 69-year-old male with past medial history of myelodysplastic syndrome, prostate cancer status post resection, COPD, schizophrenia, hypotension, and previous admissions for severe anemia due to myelodysplastic syndrome who presented to the emergency department with a chief complaint of dizziness. Patient states he has been feeling weak for a couple days. Patient appears thin, has lost weight. States he has not been eating very much, his brother recently . Patient's continue to complain about his right leg swelling, appears larger than last admission. Pulmonary: COPD Heme/Onc: Anemia NOS, Cancer (prostate), Other (myelodysplastic syndrome) Psych: Schizophrenia Past Surgical History: Other (right leg skin graft), Tonsillectomy Smoke: <1 pack per day ALCOHOL: none Drugs: None Lives: with Family Domestic Violence: Neg Review of Systems Constitutional: Yes: Weakness, Malaise; No: Fever, Chills, Sweats, Other Eyes: No: Pain, Vision change, Conjunctivae inflammation, Eyelid inflammation, Other, Redness ENT: No: Ear pain, Ear discharge, Nose pain, Nose discharge, Nose congestion, Mouth pain, Mouth swelling, Throat pain, Throat swelling, Other Respiratory: No: Cough, Dry, Shortness of breath, SOB with excertion, Wheezing, Hemoptysis, Pleuritic Pain, Sputum, Wheezing, Other Cardiovascular: Edema (right leg edema); No: Chest Pain, Palpitations, Orthopnea, Paroxysmal Noc. Dyspnea, Lt Headedness, Other Gastrointestinal: No: Nausea, Vomiting, Abdominal Pain, Diarrhea, Constipation, Melena, Hematochezia, Other Genitourinary: No Dysuria, No Frequency, No Incontinence, No Hematuria, No Retention, No Other Musculoskeletal: leg pain (right); No: other, neck pain, shoulder pain, arm pain, back pain, hand pain, foot pain Skin: No: Rash, Lesions, Jaundice, Bruising, Other Neurological: Other (Dizziness); No: Weakness, Numbness, Incoordination, Change in speech, Confusion, Seizures Allergies: Coded Allergies: NO KNOWN ALLERGIES (Unverified , 12/04/23) Exam Vital Signs Vital Signs Date Time Temp Pulse Resp B/P (MAP) Pulse Ox O2 Delivery O2 Flow Rate FiO2 09/24/24 06:03 98.8 124 20 107/56 (73) 97 98.8 General Appearance: Alert, Oriented X3, Cooperative, moderate distress, Other (thin) HEENT: Atraumatic, PERRLA Respiratory: Clear to auscultation, Normal air movement Cardiovascular: Regular rate, Normal S1, Normal S2, No murmurs Abdominal: Normal bowel sounds, Soft, No tenderness Extremities: No clubbing, No cyanosis, Other (right leg edema) Skin: No rashes, No breakdown, No significant lesion Neuro: Normal speech Psych/Mental Status: Mental status NL Labs/Xrays Labs Test 09/24/24 06:10 09/24/24 05:36 Range/Units White Blood Count 7.9 # 4.4-10.8 10^3/uL Red Blood Count 2.54 L 4.5-5.90 10^6/uL Hemoglobin 7.3 #L 13.5-17.5 g/dL Hematocrit 21.3 #L 41.0-53.0 % Mean Corpuscular Volume 83.8 80.0-100.0 fL Mean Corpuscular Hemoglobin 28.6 28.0-32.0 pg Mean Corpuscular Hemoglobin Concent 34.2 32.0-36.0 g/dL Red Cell Distribution Width 15.5 H 11.8-14.3 % Platelet Count 65 L 140-450 10^3/uL Mean Platelet Volume 9.1 6.9-10.8 fL Neutrophils (%) (Auto) 88.9 H 37.0-80.0 % Lymphocytes (%) (Auto) 5.9 L 10.0-50.0 % Monocytes (%) (Auto) 2.7 0.0-12.0 % Eosinophils (%) (Auto) 1.5 0.0-7.0 % Basophils (%) (Auto) 1.0 0.0-2.0 % Neutrophils # (Auto) 7.1 1.6-8.6 10 ^3/uL Lymphocytes # (Auto) 0.5 0.4-5.4 10 ^3/uL Monocytes # (Auto) 0.2 0-1.3 10 ^3/uL Eosinophils # (Auto) 0.1 0-0.8 10 ^3/uL Basophils # (Auto) 0.1 0-0.2 10 ^3/uL Nucleated Red Blood Cells 0.0 % Sodium Level 134 L 136-145 mmol/L Potassium Level 3.5 3.5-5.1 mmol/L Chloride Level 104 98-107 mmol/L Carbon Dioxide Level 22 20-31 mmol/L Anion Gap 8 5-15 Blood Urea Nitrogen 10 9-23 mg/dL Creatinine 0.72 0.700-1.30 mg/dL Glomerular Filtration Rate Calc 100 >90 mL/min BUN/Creatinine Ratio 13.9 10.0-20.0 Serum Glucose 125 H 74-106 mg/dL Calcium Level 8.7 8.7-10.4 mg/dL Prothrombin Time 13.3 H 9.3-11.8 sec Prothrombin Time INR 1.29 H 0.9-1.15 Activated Partial Thromboplast Time 30.7 24.5-34.5 SEC Assessment/Plan Assessment/Plan Assessment: Symptomatic anemia, thrombocytopenia, Myelodysplastic syndrome COPD Schizophrenia, Right leg edema, chronic cellulitis, Plan: Admit to Med-Surg, Transfuse 2 units PRBC, Monitor/Manage H&H closely, CT scan of right leg pending, Home medications reconciled, Plan discussed with: Patient My Orders Orders - 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 Procedure Category Date Status Time Admit ADMIT 09/24/24 Transmitted 08:45 Code Status CODE 09/24/24 Transmitted 08:45 2 Gm Sodium Diet DIET 09/24/24 Transmitted Breakfast Hydrocodone-Acet PHA 09/24/24 Transmitted 5/325mg Tab ([place] 08:45 Ondansetron Hcl PHA 09/24/24 Transmitted (Zofran) 08:45 Docusate Sodium PHA 09/24/24 Transmitted Capsule (Colace 08:45 Complete Blood Count LAB 09/25/24 Verified 04:00 Comprehensive LAB 09/25/24 Verified Metabolic Panel 04:00 Condition: Serious KATIA 09/24/24 Transmitted 08:45 Acetaminophen Tablet PHA 09/24/24 Transmitted (Tylenol Tablet) 08:45 Aspirin Enteric PHA 09/24/24 Transmitted Coated Tablet 10:00 Furosemide Tablet PHA 09/24/24 Transmitted (Lasix Tablet) 10:00 Midodrine Tablet PHA 09/24/24 Transmitted (Proamatine Tablet) 14:00 (Nf) Atorvastatin PHA 09/24/24 Transmitted Calcium 10:00 (Nf) Gabapentin PHA 09/24/24 Transmitted 10:00 Date of Service: Sep 24, 2024 Billing Provider: ANNIKA SYED Common Visit Codes: [id number] INP/OBS CARE (MOD) ANNIKA SYED Sep 24, 2024 09:02
[2024-09-24] MEDS ORDERED: PATIENTS OWN MEDICATION (Atorvastatin Calcium 1 TAB) PO SCH (10:00)
[2024-09-24] MEDS ORDERED: PATIENTS OWN MEDICATION (Gabapentin 600 MG) PO SCH (10:00)
[2024-09-24] MEDS: ASPirin-EC 81 mg tab PO SCH (10:46)
[2024-09-24] MEDS: GABAPENTIN 300 MG CAP PO SCH (10:47)
[2024-09-24] MEDS: FUROSEMIDE 40 MG TAB PO SCH (10:47)
[2024-09-24] MEDS: DOCUSATE SOD 100 MG CAP PO PRN (10:48)
[2024-09-24] MEDS: IOHEXOL 350 MG/ML 100ML IJ ONE ×2 (14:27→21:22)
--- NOTE | 2024-09-24 14:37 | DVHPN2 ---
Subjective Patient continues to report having swelling to right lower extremity Reviewed: Care Plan, H&P, Labs Changes from previous H/P or p: No Changes General: Per HPI Eyes: No Pain, No Vision change, No Conjunctivae inflammation, No Eyelid inflammation, No Other, No Redness ENT: No Ear pain, No Ear discharge, No Nose pain, No Nose discharge, No Nose congestion, No Mouth pain, No Mouth swelling, No Throat pain, No Throat swelling, No Other Cardiovascular: No Chest Pain, No Palpitations, No Orthopnea, No Paroxysmal Noc. Dyspnea, No Edema, No Lt Headedness, No Other Respiratory: No Cough, No Dry, No Shortness of breath, No SOB with excertion, No Wheezing, No Hemoptysis, No Pleuritic Pain, No Sputum, No Other Gastrointestinal: No Nausea, No Vomiting, No Abdominal Pain, No Diarrhea, No Constipation, No Melena, No Hematochezia, No Other Genitourinary: No Dysuria, No Frequency, No Incontinence, No Hematuria, No Retention, No Other Musculoskeletal: No other, No neck pain, No shoulder pain, No arm pain, No back pain, No hand pain, No leg pain, No foot pain Skin: No Rash, No Lesions, No Jaundice, No Bruising, No Other Objective Vitals Vital Signs Date Time Temp Pulse Resp B/P (MAP) Pulse Ox O2 Delivery O2 Flow Rate FiO2 09/24/24 13:55 98.7 100 20 94/59 (71) 90 98.7 09/24/24 10:52 Room Air General Appearance: Alert, Oriented X3, Cooperative, No acute distress HEENT: Atraumatic, PERRLA, Mucous membr. moist/pink Cardiovascular: Normal S1, Normal S2 Genitourinary: No Apparent Abnormalities Musculoskeletal: Normal sensory function, Normal motor function Extremities: Normal pulses, Other (Source swelling to right lower extremity) Skin: Dry, Intact Psych/Mental Status: Mental status NL, Mood NL Medications Current Medications Medications Dose Ordered Sig/Fabricio Route Start Time Stop Time Status Last Admin Dose Admin Acetaminophen/ Hydrocodone Bitart 1 tab Q4HP PRN PO 09/24/24 08:45 Ondansetron HCl 4 mg Q4HP PRN IV 09/24/24 08:45 Docusate Sodium 100 mg BIDPRN PRN PO 09/24/24 08:45 09/24/24 10:48 100 MG Acetaminophen 650 mg Q6HP PRN PO 09/24/24 08:45 Aspirin 81 mg DAILY PO 09/24/24 10:00 09/24/24 10:46 81 MG Furosemide 40 mg DAILY PO 09/24/24 10:00 09/24/24 10:47 40 MG Midodrine 10 mg TID PO 09/24/24 14:00 Patient Own Medication 600 mg BID PO 09/24/24 10:00 UNV Atorvastatin Calcium 40 mg HS PO 09/24/24 22:00 Gabapentin 600 mg BID PO 09/24/24 10:00 09/24/24 10:47 600 MG Laboratory Results Laboratory Tests 09/24/24 06:10 Chemistry Test 09/24/24 06:10 Calcium Level 8.7 mg/dL (8.7-10.4) Coagulation Test 09/24/24 05:36 Prothrombin Time 13.3 sec (9.3-11.8) H Prothrombin Time INR 1.29 (0.9-1.15) H Activated Partial Thromboplast Time 30.7 SEC (24.5-34.5) Labs and/or images reviewed: Labs reviewed by me, Image(s) reviewed by me Assessment/Plan Assessment/Plan Impression: -myelodysplastic syndrome -anemia -right lower extremity swelling, chronic cellulitis -schizophrenia Plan: -PRBC transfusion x2 -CT scan of right lower extremity, pending -continue midodrine for chronic hypotension -continue Lasix -repeat labs in a.m. -further course of care per CT scan Total time spent with patient discussing and formulating plan of care: 35 minutes. This medical document was created using an electronic medical record system with [employer] dictation system. Although this document has been carefully reviewed, there may still be some phonetic and typographical errors. These areas are purely typographical due to imperfections of the software programs, and do not reflect any compromise in the patient's medical care. Plan discussed with: Patient, Other (RN) Date of Service: Sep 24, 2024 Billing Provider: YOANDY SALAS NP Common Visit Codes: 32217-[id number] SAME DATE (HIGH) YOANDY SALAS NP Sep 24, 2024 14:37
[2024-09-24] MEDS: MIDODRINE HCL 10 MG TAB PO SCH (16:53)
[2024-09-24 19:35] VITALS: PULSE 90; RESP 16; O2SAT 98
[2024-09-24 21:12] VITALS: BP 84/44; PULSE 89; RESP 15; TEMP 99.7
[2024-09-24 21:35] VITALS: BP 82/43; PULSE 87; RESP 22; TEMP 99.9
[2024-09-24] MEDS: SODIUM CHLORIDE 0.9% 500 ML IV ONE (22:06)
[2024-09-24] MEDS: risperiDONE 1 MG TAB PO SCH (22:23)
[2024-09-24] MEDS: ATORVASTATIN 20 MG TAB PO SCH (22:24)
[2024-09-24 23:05] VITALS: BP 89/50; PULSE 90; RESP 16; TEMP 100.2
[2024-09-24] MEDS: HYDROcodone-ACET 5/325MG TAB PO PRN (23:36)
--- NOTE | 2024-09-24 23:58 | DVH ---
Procedure: CT CT ANGIO R LOWER EXT Reason for study/Clinical History: swelling Comparison Study: None CTA LOWER EXTREMITY RUNOFF WITH CONTRAST DATED 09/24/2024 08:31 PM Radiation Dose Information: CT Dose: CTDI volume is 15.79 mGy. Dose-length product is 1216.83 mGy*cm TECHNIQUE: 3D angiographic acquisitions of lower extremity was obtained during the intravenous adm inistration of 140 cc of omnipaque without immediate adverse effect. Post processing, including maxim um intensity projection, was performed images were reviewed on a PACS workstation. 3D postprocessing images were performed on a dedicated workstation and images were reviewed and inter preted for reporting. FINDINGS: Moderate atherosclerotic calcifications of the aortoiliac branches are seen. The pelvis demonstrates circumferential bladder wall thickening. There is prominent subcutaneous edema within the visualized abdominal wall. There is extensive subcutaneous swelling and infiltration within the visualized right lower extremity . There are multiple regions of low attenuation with rim enhancement seen within the musculature of t he right lower leg suggesting small intramuscular abscesses, largest of which in the region of the ac hilles. Fluid and stranding is seen in the region of the muscles of the right lower extremity. No def inite soft tissue gas is seen. No osseous erosion is seen. No arterial extravasation of contrast is s een. There is mild to moderate atherosclerotic calcifications within the visualized vasculature of th e right lower extremity. IMPRESSION: 1. Extensive subcutaneous swelling and infiltration throughout the right lower extremity. Additional subcutaneous edema is seen within the visualized left lower extremity and soft tissues of the abdomen . Further clinical correlation is suggested. Though soft tissue gas is seen, necrotizing fasciitis ca nnot be excluded in the appropriate clinical setting. 2. Multifocal intramuscular abscesses throughout the right lower leg. 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 3. Additional findings as detailed. All CT scans at this medical facility are performed using dose modulation techniques as appropriate t o a performed exam including the following: Automated exposure control was utilized; adjustment of th e MA and/or KV according to patient size; and use of iterative reconstruction technique.
[2024-09-25] VITALS (41 sets, daily range): BP systolic 85–103; BP diastolic 37–56; PULSE 75–117; RESP 14–27; TEMP 98.6–99.5; O2SAT 92–99
[2024-09-25] MEDS: ACETAMINOPHEN 325 MG TAB PO PRN (01:25)
[2024-09-25] MEDS: SODIUM CHLORIDE 0.9% 1,000 ML IV ONE (03:27)
[2024-09-25] MEDS ORDERED: VANCOMYCIN PER PHARMACY 0 MG IV SCH (08:00)
[2024-09-25] MEDS: NOREPINEPHRINE 8 MG/250ML KIT 250 ML IV ONE (08:23)
[2024-09-25 08:41] LABS: Nucleated Red Blood Cells % 0.0 %
[2024-09-25 08:46] LABS: Hematocrit 24.6 % (41.0-53.0); Hemoglobin 8.3 g/dL (13.5-17.5); Mean Corpuscular Hemoglobin 29.3 pg (28.0-32.0); Mean Corpuscular Volume 86.8 fL (80.0-100.0)
--- NOTE | 2024-09-25 08:53 | DVHPN2 ---
Subjective Patient continues to report having swelling to right lower extremity Reviewed: Care Plan, H&P, Labs Changes from previous H/P or p: No Changes General: Per HPI Eyes: No Pain, No Vision change, No Conjunctivae inflammation, No Eyelid inflammation, No Other, No Redness ENT: No Ear pain, No Ear discharge, No Nose pain, No Nose discharge, No Nose congestion, No Mouth pain, No Mouth swelling, No Throat pain, No Throat swelling, No Other Cardiovascular: No Chest Pain, No Palpitations, No Orthopnea, No Paroxysmal Noc. Dyspnea; Edema (right leg edema); No Lt Headedness, No Other Respiratory: No Cough, No Dry, No Shortness of breath, No SOB with excertion, No Wheezing, No Hemoptysis, No Pleuritic Pain, No Sputum, No Other Gastrointestinal: No Nausea, No Vomiting, No Abdominal Pain, No Diarrhea, No Constipation, No Melena, No Hematochezia, No Other Genitourinary: No Dysuria, No Frequency, No Incontinence, No Hematuria, No Retention, No Other Musculoskeletal: No other, No neck pain, No shoulder pain, No arm pain, No back pain, No hand pain; leg pain (right); No foot pain Skin: No Rash, No Lesions, No Jaundice, No Bruising, No Other Objective Vitals Vital Signs Date Time Temp Pulse Resp B/P (MAP) Pulse Ox O2 Delivery O2 Flow Rate FiO2 09/25/24 07:36 98.4 80 16 95/51 (66) 98 98.4 09/25/24 07:36 Room Air* 0 21 Intake/Output Intake and Output 09/25/24 07:00 Intake Total 1100 ml Output Total 400 ml Balance 700 ml Intake IV Total 500 ml Blood Product 600 ml Output Urine Total 400 ml General Appearance: Alert, Oriented X3, Cooperative, No acute distress HEENT: Atraumatic, PERRLA, Mucous membr. moist/pink Cardiovascular: Normal S1, Normal S2 Genitourinary: No Apparent Abnormalities Musculoskeletal: Normal sensory function, Normal motor function Extremities: Normal pulses, Other (Source swelling to right lower extremity) Skin: Dry, Intact Psych/Mental Status: Mental status NL, Mood NL Medications Current Medications Medications Dose Ordered Sig/Fabricio Route Start Time Stop Time Status Last Admin Dose Admin Acetaminophen/ Hydrocodone Bitart 1 tab Q4HP PRN PO 09/24/24 08:45 09/24/24 23:36 1 TAB Ondansetron HCl 4 mg Q4HP PRN IV 09/24/24 08:45 Docusate Sodium 100 mg BIDPRN PRN PO 09/24/24 08:45 09/24/24 10:48 100 MG Acetaminophen 650 mg Q6HP PRN PO 09/24/24 08:45 09/25/24 01:25 650 MG Aspirin 81 mg DAILY PO 09/24/24 10:00 09/24/24 10:46 81 MG Furosemide 40 mg DAILY PO 09/24/24 10:00 09/24/24 10:47 40 MG Midodrine 10 mg TID PO 09/24/24 14:00 09/25/24 06:07 10 MG Patient Own Medication 600 mg BID PO 09/24/24 10:00 UNV Atorvastatin Calcium 40 mg HS PO 09/24/24 22:00 09/24/24 22:24 40 MG Gabapentin 600 mg BID PO 09/24/24 10:00 09/24/24 10:47 600 MG Risperidone 2 mg BID PO 09/24/24 22:00 09/24/24 22:23 2 MG Clindamycin Phosphate 50 ml @ 50 mls/hr Q8H IV 09/25/24 08:00 Vancomycin HCl 0 ml @ 0 mls/hr UD IV 09/25/24 08:00 UNV Piperacillin Sod/ Tazobactam Sod 100 ml @ 25 mls/hr Q8H IV 09/25/24 17:00 Norepinephrine Bitartrate 250 ml @ 3.75 mls/hr Q24H IV 09/25/24 08:30 Laboratory Results Laboratory Tests 09/25/24 07:58 Chemistry Test 09/25/24 07:58 Albumin Pending Calcium Level Pending Total Protein Pending LFT Test 09/25/24 07:58 Alanine Aminotransferase (ALT) Pending Alkaline Phosphatase Pending Aspartate Amino Transferase (AST) Pending Total Bilirubin Pending Labs and/or images reviewed: Labs reviewed by me, Image(s) reviewed by me Assessment/Plan Assessment/Plan Impression: -myelodysplastic syndrome -anemia -right lower extremity swelling, chronic cellulitis -schizophrenia Plan: Events: CT scan of the right lower extremity with contrast reviewed this a.m.. Apparently, findings were reported to any provider yesterday. Findings were discussed with on-call orthopedic surgeon, Dr. Holt. -transfer to ICU -start norepinephrine drip -antibiotic course: Zosyn, vancomycin, clindamycin -continue midodrine for chronic hypotension -repeat labs in a.m. Critical care time spent with patient discussing and formulating plan of care: 40 minutes. This does not include time spent performing procedures. This medical document was created using an electronic medical record system with [employer] dictation system. Although this document has been carefully reviewed, there may still be some phonetic and typographical errors. These areas are purely typographical due to imperfections of the software programs, and do not reflect any compromise in the patient's medical care. Plan discussed with: Patient, Other (RN) My Orders Orders - YOANDY SALAS NP Procedure Category Date Status Time Risperidone Tablet PHA 09/24/24 In Process (Risperdal Tablet) 22:00 Clindamycin 300mg Iv PHA 09/25/24 In Process (Cleocin Iv) 08:00 Vancomycin Per PHA 09/25/24 Pending Pharmacy 08:00 Piperacillin-Tazob PHA 09/25/24 In Process 3.375gm (Zosyn 3.375g 17:00 Npo (Nothing By DIET 09/25/24 Transmitted Mouth) Diet Breakfast Transfer Orders XFER 09/25/24 Transmitted 08:04 * Picc Line Consult CONS 09/25/24 Transmitted 08:10 * Orthopedic Consult CONS 09/25/24 Transmitted 08:10 Piperacillin-Tazob PHA 09/25/24 In Process 3.375gm (Zosyn 3.375g 09:00 Vancomycin 1.5gm/300ml PHA 09/25/24 In Process 10:00 Norepinephrine 8 PHA 09/25/24 In Process Mg/250ml Kit 08:30 Date of Service: Sep 25, 2024 Billing Provider: YOANDY SALAS NP Common Visit Codes: [id number]-[id number] CARE 30-74 MIN YOANDY SALAS NP Sep 25, 2024 08:53
[2024-09-25 09:03] LABS: Alkaline Phosphatase 74 U/L (46-116); Anion Gap 8 (5-15); BUN/Creatinine Ratio 18.0 (10.0-20.0); Blood Urea Nitrogen 11 mg/dL (9-23); Calcium 8.8 mg/dL (8.7-10.4); Carbon Dioxide 22 mmol/L (20-31); Chloride 106 mmol/L (98-107); Glucose 99 mg/dL (74-106); Potassium 3.9 mmol/L (3.5-5.1); Total Protein 7.4 g/dL (5.7-8.2)
[2024-09-25 09:04] LABS: Bilirubin, Total 0.8 mg/dL (0.2-1.0)
[2024-09-25] MEDS: NOREPINEPHRINE 8 MG/250ML KIT 250 ML IV SCH (09:09)
[2024-09-25 09:10] LABS: Alanine Aminotransferase 47 U/L (7-40); Albumin 3.0 g/dL (3.2-4.8); Sodium 136 mmol/L (136-145)
[2024-09-25] MEDS: SODIUM CHLORIDE 0.9% 500 ML IV ONE (09:15)
--- NOTE | 2024-09-25 10:26 | DVHINCON2 ---
Consult Note Consult Consult Note Orthopedic Consult Note Referring Provider: Emergency Department Reason for Consult: Right lower leg ulcer with purulent discharge and CT- confirmed abscess tracking to pelvis --- History of Present Illness: The patient is a 69 -year-old male with a known history of myelodysplastic syndrome (MDS) requiring regular blood transfusions. He presents with a 4-month history of ulceration over the right lower tibia, with progressively worsening purulent drainage over the past several weeks. Per patient, the wound has been managed at home by his sister with regular dressing changes due to persistent drainage. The patient denies fever, chills, or systemic symptoms. He was referred to the ER today by his outpatient provider for evaluation of the non- healing wound. A CT scan was obtained, which showed a soft tissue abscess at the lesion site on the right anterior distal tibia/ankle aspect, with deep tracking extending proximally toward the pelvis with right leg swelling. --- Past Medical History: Myelodysplastic syndrome (MDS) transfusion dependent Chronic wound, right lower tibia --- Physical Examination: Vital Signs: Stable, afebrile General: Alert and oriented 3, no acute distress Right Lower Extremity: Dime-sized ulceration noted over distal tibia with active turbulent purulent discharge Significant soft tissue swelling extending from hip to ankle, markedly greater than the left leg No erythema, crepitus, or pain out of proportion to exam No foul odor noted Neurovascular: Grossly intact distally Mobility: Ambulates with walker due to underlying weakness/chronic condition --- Imaging: CT scan (ER): Demonstrates soft tissue abscess involving distal tibia with extension tracking proximally toward pelvis, concerning for complex and deep- seated infection --- Assessment: 1. Chronic right lower tibial ulcer with purulent drainage, likely secondary to a deep, tracking soft tissue abscess 2. Underlying immunocompromised state due to MDS 3. Soft tissue swelling and abscess with risk of extension or systemic spread 4. Needs urgent surgical evaluation and intervention at higher level of care ([facility]) --- Plan: Discussed case with Dr. Holt, on-call orthopedic surgeon Due to complex tracking abscess and potential need for surgical debridement, patient requires urgent transfer to a higher level of care ER team and orthopedic team agree on transfer; patient and family fully informed and in agreement with plan Recommend: Transfer to surgical service at [facility] IV antibiotics to be initiated if not already done Surgical consult at receiving facility for definitive debridement and wound management Wound cultures and bloodwork to guide further treatment --- Disposition: Transfer to [facility] from ER for surgical intervention. ER team notified. Patient stable for transfer from Ortho point of view. No further orthopedic intervention to be performed at current facility. Plan discussed with: Patient, Other (ER TEAM to include bedside nurse and provider) Visit Coding Surgery Date of Service if different f: Sep 25, 2024 Billing Provider: COMFORT XIE Surgery Visit Codes: 20833 - INP CONSULT <55 MIN COMFORT XIE Sep 25, 2024 10:26
--- NOTE | 2024-09-25 11:06 | DVHDS2 ---
Discharge Summary Date of Admission Sep 24, 2024 at 08:46 Date of Discharge: Sep 25, 2024 Admitting Diagnosis Symptomatic anemia Labs/Diagnostic Data: Laboratory Results Test 09/25/24 07:58 09/24/24 05:36 White Blood Count 7.7 10^3/uL (4.4-10.8) Red Blood Count 2.84 10^6/uL (4.5-5.90) Hemoglobin 8.3 g/dL (13.5-17.5) Hematocrit 24.6 % (41.0-53.0) Mean Corpuscular Volume 86.8 fL (80.0-100.0) Mean Corpuscular Hemoglobin 29.3 pg (28.0-32.0) Mean Corpuscular Hemoglobin Concent 33.8 g/dL (32.0-36.0) Red Cell Distribution Width 15.2 % (11.8-14.3) Platelet Count 62 10^3/uL (140-450) Mean Platelet Volume 10.1 fL (6.9-10.8) Neutrophils (%) (Auto) 87.3 % (37.0-80.0) Lymphocytes (%) (Auto) 7.0 % (10.0-50.0) Monocytes (%) (Auto) 2.4 % (0.0-12.0) Eosinophils (%) (Auto) 2.6 % (0.0-7.0) Basophils (%) (Auto) 0.7 % (0.0-2.0) Neutrophils # (Auto) 6.8 10 ^3/uL (1.6-8.6) Lymphocytes # (Auto) 0.5 10 ^3/uL (0.4-5.4) Monocytes # (Auto) 0.2 10 ^3/uL (0-1.3) Eosinophils # (Auto) 0.2 10 ^3/uL (0-0.8) Basophils # (Auto) 0.1 10 ^3/uL (0-0.2) Nucleated Red Blood Cells 0.0 % Sodium Level 136 mmol/L (136-145) Potassium Level 3.9 mmol/L (3.5-5.1) Chloride Level 106 mmol/L (98-107) Carbon Dioxide Level 22 mmol/L (20-31) Anion Gap 8 (5-15) Blood Urea Nitrogen 11 mg/dL (9-23) Creatinine 0.61 mg/dL (0.700-1.30) Glomerular Filtration Rate Calc 105 mL/min (>90) BUN/Creatinine Ratio 18.0 (10.0-20.0) Serum Glucose 99 mg/dL (74-106) Calcium Level 8.8 mg/dL (8.7-10.4) Total Bilirubin 0.8 mg/dL (0.2-1.0) Aspartate Amino Transferase (AST) 31 U/L (13-40) Alanine Aminotransferase (ALT) 47 U/L (7-40) Alkaline Phosphatase 74 U/L (46-116) Total Protein 7.4 g/dL (5.7-8.2) Albumin 3.0 g/dL (3.2-4.8) Prothrombin Time 13.3 sec (9.3-11.8) Prothrombin Time INR 1.29 (0.9-1.15) Activated Partial Thromboplast Time 30.7 SEC (24.5-34.5) Other Laboratory Tests 09/25/24 07:58 Brief Hx & Hospital Course: History of Present Illness Eugene Alejandro is a 69-year-old male with past medial history of myelodysplastic syndrome, prostate cancer status post resection, COPD, schizophrenia, hypotension, and previous admissions for severe anemia due to myelodysplastic syndrome who presented to the emergency department with a chief complaint of dizziness. Patient states he has been feeling weak for a couple days. Patient appears thin, has lost weight. States he has not been eating very much, his brother recently . Patient's continue to complain about his right leg swelling, appears larger than last admission. Course of hospitalization: Patient had CT scan with contrast to right lower extremity. Findings were discussed with on-call orthopedic surgeon, Dr. Holt regarding multiple areas of abscess with rule out necrotizing fasciitis. After he reviewed the imaging, recommendations were made to transfer to higher level of care for emergent surgery. Patient was started on antibiotic therapy including Zosyn, vancomycin, clindamycin. Patient was noted to be hypotensive, for which she was placed on norepinephrine drip, currently at 2 micrograms/minute. Discussion was made with the patient who is agreeable to be transferred for evaluation and surgery of his right lower extremity. At this time he is hemodynamically stable. Report was given to apprentice architect at [facility]. Patient will be transferred once bed is available. Physical examination General: Alert and Oriented x3. No acute distress. Well-nourished. Eyes: EOMI. Anicteric. HENT: Moist mucous membranes. Lungs: Clear to auscultation bilaterally. No accessory muscle use. Cardiovascular: Regular rate and rhythm. No murmur. No JVD. Abdomen: Soft, non-tender and non-distended. No palpable masses. Extremities: Severe swelling, and warmth to right lower extremity Skin: No rashes or lesions. Warm. Neurologic: No focal neurological deficits. CN II-XII grossly intact, but not individually tested. Psychiatric: Cooperative. Appropriate mood and affect. Total time spent with patient discussing and formulating plan of care: 35 minutes. This medical document was created using an electronic medical record system with [employer] system. Although this document has been carefully reviewed, there may still be some phonetic and typographical errors. These areas are purely typographical due to imperfections of the software programs, and do not reflect any compromise in the patient's medical care. Consults/Reason for consult Orthopedic surgery: Evaluation of right lower extremity swelling/abscess noted on CT scan. Condition at Discharge: Poor Final Diagnosis/Problems List Necrotizing fasciitis of right leg Secondary diagnosis: Myelodysplastic syndrome Schizophrenia Anemia of chronic disease Discharge Disposition: Acute Care Facility Discharge Instruct/Medications Diet: See Comment Diet comment: NPO Activity: No Restrictions, As Tolerated Follow Up/Referral: Per accepting intensive Medications: Refer to medication reconciliation form Scheduled Aspirin (Aspirin Low Dose), 1 TAB PO DAILY, (Reported) Atorvastatin Calcium (Atorvastatin Calcium), 1 TAB PO DAILY, (Reported) Furosemide (Furosemide), 1 TAB PO DAILY, (Reported) Gabapentin (Gabapentin), 600 MG PO BID, (Reported) Melatonin (Kp Melatonin), 3 MG PO HS, (Reported) Midodrine Hcl (Midodrine Hcl), 10 MG PO TID Mirtazapine (Mirtazapine Oral Disintegrating Tablet), 1 TAB PO QPM, (Reported) Risperidone (Risperidone), 2 MG PO BID, (Reported) Miscellaneous Medications Albuterol Sulfate (Ventolin Mdi), 90 MCG IN, (Reported) Fluticasone Furoate (Inhalatio (Arnuity Ellipta), 200 MCG IN, (Reported) Discontinued Medications Amoxicillin & Pot Clavulanate (Augmentin Tablet), 875 MG PO BID Hydrocodone-Acetaminophen (Hydrocodone Bitartrate/AC 10-325 mg), 1 TAB PO, (Reported) 36 Discharge Statement: "Patient was advised to return to the ER or call 911 if any headaches, dizziness, shortness of breath, chest pain, abdominal pain, bleeding, fevers, or worsening of medical condition. Patient was counseled about treatment plan, medications, possible side effects, patientverbalized understanding. All questions were answered to the best of my ability. This discharge took greater then 30 minutes in planning, reviewing documentation, counseling the patient, and discussing with other team members." ASSESSMENT ASSESSMENT Assessment Necrotizing fasciitis of right leg Date of Service: Sep 25, 2024 Billing Provider: YOANDY SALAS NP Common Visit Codes: [id number] DISCH DAY >30min YOANDY SALAS NP Sep 25, 2024 11:06
[2024-09-25] MEDS ORDERED: ALBUTEROL SULF 2.5 MG/0.5ML(0.5%) NEB SOLN NEB PRN (11:15)
[2024-09-25] MEDS: SODIUM CHLORIDE 0.9% 1,000 ML IV SCH (11:19)
[2024-09-25] MEDS: CLINDAMYCIN 300MG IV 50 ML IV SCH (11:19)
--- NOTE | 2024-09-25 11:56 | DVHINCON2 ---
Consultation - Surgical Date Seen: Sep 25, 2024 Referring Physician Referring Physician er Reason for Consultation necrotizing soft tissue infection History of Present Illness History of Present Illness Eugene Alejandro is a 69-year-old male with past medial history of myelodysplastic syndrome, prostate cancer status post resection, COPD, schizophrenia, hypotension, and previous admissions for severe anemia due to myelodysplastic syndrome who presented to the emergency department with a chief complaint of dizziness. Patient states he has been feeling weak for a couple days. Patient appears thin, has lost weight. States he has not been eating very much, his brother recently . Patient's continue to complain about his right leg swelling, appears larger than last admission. swelling of the right leg has worsened and spread to the lower abdomen. he has a chronic wound of the anterior villarreal. pain is worse with any movement. currently on levophed Procedure: CT CT ANGIO R LOWER EXT Reason for study/Clinical History: swelling Comparison Study: None CTA LOWER EXTREMITY RUNOFF WITH CONTRAST DATED 09/24/2024 08:31 PM Radiation Dose Information: CT Dose: CTDI volume is 15.79 mGy. Dose-length product is 1216.83 mGy*cm TECHNIQUE: 3D angiographic acquisitions of lower extremity was obtained during the intravenous administration of 140 cc of omnipaque without immediate adverse effect. Post processing, including maximum intensity projection, was performed images were reviewed on a PACS workstation. 3D postprocessing images were performed on a dedicated workstation and images were reviewed and interpreted for reporting. FINDINGS: Moderate atherosclerotic calcifications of the aortoiliac branches are seen. The pelvis demonstrates circumferential bladder wall thickening. There is prominent subcutaneous edema within the visualized abdominal wall. There is extensive subcutaneous swelling and infiltration within the visualized right lower extremity. There are multiple regions of low attenuation with rim enhancement seen within the musculature of the right lower leg suggesting small intramuscular abscesses, largest of which in the region of the achilles. Fluid and stranding is seen in the region of the muscles of the right lower extremity. No definite soft tissue gas is seen. No osseous erosion is seen. No arterial extravasation of contrast is seen. There is mild to moderate atherosclerotic calcifications within the visualized vasculature of the right lower extremity. IMPRESSION: 1. Extensive subcutaneous swelling and infiltration throughout the right lower extremity. Additional subcutaneous edema is seen within the visualized left lower extremity and soft tissues of the abdomen. Further clinical correlation is suggested. Though soft tissue gas is seen, necrotizing fasciitis cannot be excluded in the appropriate clinical setting. 2. Multifocal intramuscular abscesses throughout the right lower leg. 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 3. Additional findings as detailed. Past Medical/Surgical History Past Medical/Surgical History myelodysplastic syndrome, prostate cancer status post resection, COPD, schizophrenia, hypotension Family and Social History Family and Social History former smoker Allergies and medications Allergies: Coded Allergies: NO KNOWN ALLERGIES (Unverified , 12/04/23) Home Meds Active Scripts Midodrine Hcl (Midodrine Hcl) 10 Mg Tab, 10 MG PO TID for 30 Days, #90 TAB 3 Refills Prov:YOANDY SALAS SMOKE ROOM OPERATOR 06/06/24 Reported Medications Aspirin (Aspirin Low Dose) 81 Mg Tab, 1 TAB PO DAILY 09/03/24 Furosemide (Furosemide) 40 Mg Tab, 1 TAB PO DAILY 07/02/24 Risperidone (Risperidone) 2 Mg Tab, 2 MG PO BID, TAB 12/05/23 Mirtazapine (Mirtazapine Oral Disintegrating Tablet) 45 Mg Tab, 1 TAB PO QPM, #30 TAB 1 Refill 12/05/23 Melatonin (KP MELATONIN) 3 Mg Tab, 3 MG PO HS, TAB 12/05/23 Gabapentin (Gabapentin) 600 Mg Tab, 600 MG PO BID, TAB 12/05/23 Fluticasone Furoate (Inhalatio (Arnuity Ellipta) 200 Mcg/Act Inh, 200 MCG IN, INHALER 12/05/23 Atorvastatin Calcium (ATORVASTATIN CALCIUM) 40 Mg Tab, 1 TAB PO DAILY, #30 TAB 5 Refills 12/05/23 Albuterol Sulfate (VENTOLIN MDI) 90 Mcg Ih, 90 MCG IN, INH 12/05/23 Discontinued Reported Medications Hydrocodone-Acetaminophen (Hydrocodone Bitartrate/AC 10-325 mg) 1 Tab Tab, 1 TAB PO, TAB 06/18/24 Discontinued Scripts Amoxicillin & Pot Clavulanate (AUGMENTIN TABLET) 875 Mg Tb, 875 MG PO BID for 7 Days, #14 TAB Prov:YOANDY SALAS SMOKE ROOM OPERATOR 09/12/24 Review of systems Review of Systems: HEENT:Normal, CVS:Abnormal, GI:Normal, :Normal, MSK :Abnormal Examination Vital signs Vital Signs Date Time Temp Pulse Resp B/P (MAP) Pulse Ox O2 Delivery O2 Flow Rate FiO2 09/25/24 09:09 88/51 09/25/24 08:00 74 09/25/24 07:36 98.4 16 98 98.4 09/25/24 07:36 Room Air* 0 21 Medications Current Medications Medications (Trade) Dose Ordered Sig/Fabricio Route PRN Reason Start Time Stop Time Status Last Admin Midodrine (Proamatine Tablet) 10 mg TID PO 09/24/24 14:00 09/25/24 06:07 Atorvastatin Calcium (Lipitor) 40 mg HS PO 09/24/24 22:00 09/24/24 22:24 Risperidone (RisperDAL TABLET) 2 mg BID PO 09/24/24 22:00 09/24/24 22:23 Clindamycin Phosphate 50 ml @ 50 mls/hr Q8H IV 09/25/24 08:00 09/25/24 11:19 Vancomycin HCl 0 ml @ 0 mls/hr UD IV 09/25/24 08:00 Piperacillin Sod/ Tazobactam Sod 100 ml @ 25 mls/hr Q8H IV 09/25/24 17:00 Norepinephrine Bitartrate 250 ml @ 3.75 mls/hr Q24H IV 09/25/24 08:30 09/25/24 09:09 Sodium Chloride 1,000 ml @ 100 mls/hr Q10H IV 09/25/24 10:15 09/25/24 11:19 Albuterol (Ventolin Medneb) 2.5 mg Q6HPRN PRN NEB SHORTNESS OF BREATH 09/25/24 11:15 UNV Ipratropium Maskell (Atrovent Medneb) 0.5 mg Q6HR NEB 09/25/24 12:00 UNV Laboratory Labs Test 09/25/24 07:58 09/24/24 05:36 Range/Units White Blood Count 7.7 4.4-10.8 10^3/uL Red Blood Count 2.84 L 4.5-5.90 10^6/uL Hemoglobin 8.3 L 13.5-17.5 g/dL Hematocrit 24.6 #L 41.0-53.0 % Mean Corpuscular Volume 86.8 80.0-100.0 fL Mean Corpuscular Hemoglobin 29.3 28.0-32.0 pg Mean Corpuscular Hemoglobin Concent 33.8 32.0-36.0 g/dL Red Cell Distribution Width 15.2 H 11.8-14.3 % Platelet Count 62 L 140-450 10^3/uL Mean Platelet Volume 10.1 6.9-10.8 fL Neutrophils (%) (Auto) 87.3 H 37.0-80.0 % Lymphocytes (%) (Auto) 7.0 L 10.0-50.0 % Monocytes (%) (Auto) 2.4 0.0-12.0 % Eosinophils (%) (Auto) 2.6 0.0-7.0 % Basophils (%) (Auto) 0.7 0.0-2.0 % Neutrophils # (Auto) 6.8 1.6-8.6 10 ^3/uL Lymphocytes # (Auto) 0.5 0.4-5.4 10 ^3/uL Monocytes # (Auto) 0.2 0-1.3 10 ^3/uL Eosinophils # (Auto) 0.2 0-0.8 10 ^3/uL Basophils # (Auto) 0.1 0-0.2 10 ^3/uL Nucleated Red Blood Cells 0.0 % Sodium Level 136 136-145 mmol/L Potassium Level 3.9 3.5-5.1 mmol/L Chloride Level 106 98-107 mmol/L Carbon Dioxide Level 22 20-31 mmol/L Anion Gap 8 5-15 Blood Urea Nitrogen 11 9-23 mg/dL Creatinine 0.61 L 0.700-1.30 mg/dL Glomerular Filtration Rate Calc 105 >90 mL/min BUN/Creatinine Ratio 18.0 10.0-20.0 Serum Glucose 99 74-106 mg/dL Calcium Level 8.8 8.7-10.4 mg/dL Total Bilirubin 0.8 0.2-1.0 mg/dL Aspartate Amino Transferase (AST) 31 13-40 U/L Alanine Aminotransferase (ALT) 47 H 7-40 U/L Alkaline Phosphatase 74 46-116 U/L Total Protein 7.4 5.7-8.2 g/dL Albumin 3.0 L 3.2-4.8 g/dL Prothrombin Time 13.3 H 9.3-11.8 sec Prothrombin Time INR 1.29 H 0.9-1.15 Activated Partial Thromboplast Time 30.7 24.5-34.5 SEC Examination: GENERAL:Normal, HEENT:Normal, NECK:Normal, CVS:Abnormal (hypotensive), MSK:Abnormal (2+ pitting edema to the lower abd. wall ), SKIN:Abnormal Problem List/Assessment/Plan Problems: (1) Hypotension (2) Severe sepsis with septic shock Assessment and Plan Worsening leg swelling and with CT scan suggestive of necrotizing fascitis Agree with orthopedics for transfer to higher level of care. Plan discussed with Plan discussed with: Patient Visit Coding Surgery Date of Service if different f: Sep 25, 2024 Billing Provider: LANNY CASON Jr., MD Surgery Visit Codes: 55550 - INP CONSULT <80 MIN LANNY CASON Jr., MD Sep 25, 2024 11:56
[2024-09-25] MEDS: IPRATROPIUM BROM 0.5 MG/2.5ML INH SOL NEB SCH (12:00)
[2024-09-25] MEDS: PIPERACILLIN-TAZOB 3.375GM 100 ML IV ONE (12:05)
[2024-09-25] MEDS: VANCOMYCIN 1.5GM/300ML 300 ML IV ONE (12:56)
[2024-09-25] MEDS: PIPERACILLIN-TAZOB 3.375GM 100 ML IV SCH (17:14)
== END 2024-09-25 19:25 | disposition short-term general hospital (02) | DRG 811 ==
LOC: ER 05:45 → OVERFLOW 08:46
PROVIDERS: ADMIT Nurse Practitioner Acute Care; ATTEND Nurse Practitioner Acute Care
PROC: 30233N1 Transfusion of Nonautologous Red Blood Cells into Peripheral Vein, Percutaneous Approach (ICD-10-PCS; principal; 2024-09-24)
DX: D46.9 Myelodysplastic syndrome, unspecified (principal); M72.6 Necrotizing fasciitis; L03.90 Cellulitis, unspecified; D69.6 Thrombocytopenia, unspecified; J44.9 Chronic obstructive pulmonary disease, unspecified; F20.9 Schizophrenia, unspecified; F17.210 Nicotine dependence, cigarettes, uncomplicated; D63.8 Anemia in other chronic diseases classified elsewhere; E78.5 Hyperlipidemia, unspecified; Z79.899 Other long term (current) drug therapy; Z79.2 Long term (current) use of antibiotics; Z85.46 Personal history of malignant neoplasm of prostate
CPT/HCPCS: 36415; 73706; 80048; 80053; 85025; 85610; 85730; 86850; 86900; 86901; 86902; 86922; 87081; 87205; 99291; G0378; J2543; J3490

== ENCOUNTER 2024-10-08 05:50 | Inpatient (IN) | payer OTHER, MEDICAID ==
[~2024-10-08] VITALS: Ht 180.3 cm; Wt 75.4 kg
[~2024-10-08 05:50] MED LIST changes: -AUG875T PO; -HYDR-4798 PO
--- NOTE | 2024-10-08 06:49 | ED.PDOC ---
History of Present Illness HPI Comments 69 y/o M, with PMHx of anemia, HLD, and COPD presents to the ED for CC of abnormal labs. Patient reports, he is here to receive his weekly blood transfusion; endorses last being transfused x1week ago at [facility]. Patient relays, associated symptoms of weakness, fatigue, and right leg swelling which has significantly worsened in the past [id number]. Upon arrival to the ED, patient is tachycardic and hypotensive with a slight fever. Patient comments, when seen at [facility] to be told to have an infection to his right leg which is causing swelling; patient was discharged home with Abx. Patient denies active bleeding, dizziness, nausea, vomiting, or diarrhea. No other symptoms or modifiers present at this time. Chief Complaint: Abnormal LAB's Time Seen by MD: 06:20 Primary Care Provider: MADDIE Reviewed Notes: Nurses Notes, Medications, Allergies Allergies: Coded Allergies: NO KNOWN ALLERGIES (Unverified , 12/04/23) Home Meds Active Scripts Midodrine Hcl (Midodrine Hcl) 10 Mg Tab, 10 MG PO TID for 30 Days, #90 TAB 3 Refills Prov:YOANDY SALAS MAJOR GIFTS OFFICER 06/06/24 Reported Medications Aspirin (Aspirin Low Dose) 81 Mg Tab, 1 TAB PO DAILY 09/03/24 Furosemide (Furosemide) 40 Mg Tab, 1 TAB PO DAILY 07/02/24 Risperidone (Risperidone) 2 Mg Tab, 2 MG PO BID, TAB 12/05/23 Mirtazapine (Mirtazapine Oral Disintegrating Tablet) 45 Mg Tab, 1 TAB PO QPM, #30 TAB 1 Refill 12/05/23 Melatonin (KP MELATONIN) 3 Mg Tab, 3 MG PO HS, TAB 12/05/23 Gabapentin (Gabapentin) 600 Mg Tab, 600 MG PO BID, TAB 12/05/23 Fluticasone Furoate (Inhalatio (Arnuity Ellipta) 200 Mcg/Act Inh, 200 MCG IN, INHALER 12/05/23 Atorvastatin Calcium (ATORVASTATIN CALCIUM) 40 Mg Tab, 1 TAB PO DAILY, #30 TAB 5 Refills 12/05/23 Albuterol Sulfate (VENTOLIN MDI) 90 Mcg Ih, 90 MCG IN, INH 12/05/23 Information Source: Patient Mode of Arrival: Ambulatory Severity: Moderate Timing: Weeks Duration: Since onset Prehospital treatment: None Past Medical History PAST MEDICAL HISTORY: Anemia, COPD, High Lipids Surgical History: Tonsillectomy Family History Family History: Reviewed,noncontributory to illness, Unknown Social History Smoker: Cigarettes, Less Than 1 Pack/Day Alcohol: Occasionally Drugs: Denies Drug Use Lives In: Home Constitutional: reports: fatigue, weakness; denies: chills, diaphoresis, fever, malaise, sweats, others EENTM: denies: blurred vision, double vision, ear bleeding, ear discharge, ear drainage, ear pain, ear ringing, eye pain, eye redness, hearing loss, mouth pain, mouth swelling, nasal discharge, nose bleeding, nose congestion, nose pain, photophobia, tearing, throat pain, throat swelling, voice changes, others Respiratory: denies: cough, hemoptysis, orthopnea, SOB at rest, shortness of breath, SOB with excertion, stridor, wheezing, others Cardiovascular: denies: chest pain, dizzy spells, diaphoresis, Dyspnea on exert ion, edema, irregular heart beat, left arm pain, lightheadedness, palpitations, PND, syncope, others Gastrointestinal: denies: abdomen distended, abdominal pain, blood streaked bowels, constipated, diarrhea, dysphagia, difficulty swallowing, hematemesis, melena, nausea, poor appetite, poor fluid intake, rectal bleeding, rectal pain, vomiting, others Genitourinary: denies: burning, dysuria, flank pain, frequency, hematuria, incontinence, penile discharge, penile sore, pain, testicle pain, testicle swelling, urgency, others Neurological: denies: dizziness, fainting, headache, left sided numbness, left sided weakness, numbness, paresthesia, pre-existing deficit, right sided numbness, right sided weakness, seizure, speech problems, tingling, tremors, weakness, others Musculoskeletal: denies: back pain, gout, joint pain, joint swelling, muscle pain, muscle stiffness, neck pain, others Integumetry: denies: bruises, change in color, change in hair/nails, dryness, laceration, lesions, lumps, rash, wounds, others Allergic/Immunocompromised: denies: Difficulty Healing, Frequent Infections, Hives, Itching, others Hematologic/Lymphatic: denies: anemia, blood clots, easy bleeding, easy bruising, swollen glands, others Endocrine: denies: excessive hunger, excessive sweating, excessive thirst, excessive urination, flushing, intolerance to cold, intolerance to heat, unexplained weight gain, unexplained weight loss, others Psychiatric: denies: anxiety, bipolar disorder, depression, hopeless, panic disorder, schizophrenia, sleepless, suicidal, others All Other Systems: Reviewed and Negative Physical Exam General Appearance: Moderate Distress HEENT: Normal ENT Inspection, Pharynx Normal, TMs Normal Neck: Full Range of Motion, Non-Tender, Normal, Normal Inspection Respiratory: Chest Non-Tender, Lungs Clear, No Accessory Muscle Use, No Respiratory Distress, Normal Breath Sounds Cardiovascular: No Edema, No JVD, No Murmur, No Gallop, Normal Peripheral Pulses, Regular Rate/Rhythm Breast Exam: Deferred Gastrointestinal: No Organomegaly, Non Tender, No Pulsatile Mass, Normal Bowel Sounds, Soft Genitalia: Deferred Pelvic: Deferred Rectal: Deferred Extremities: Swelling (Chronic right lower extremity swelling) Musculoskeletal : Apperance: Normal Neurologic: Alert, baked goods stock clerk II-XII nml as Tested, No Motor Deficits, Normal Affect, Normal Mood, No Sensory Deficits Cerebellar Function: NOT DONE Reflexes: NOT DONE Skin: Dry, Normal Color, Warm Peripheral Pulses: 3+ Radial (R), 3+ Radial (L) Lymphatic: No Adenopathy Was a procedure done? Was a procedure done?: Yes Sedation Sedation?: No Central Line Recorder of insertion practice: Deputy Probation Officer Occupation of opinion polls survey worker: Attending Physician Indication: Hypotension, CVP monitoring Room prepared for procedure: Yes Deputy Probation Officer performed hand hygien: Yes Maximal sterile barrier precau: Mask/Eye shield, Sterile gown Skin Preparation: Chlorhexidine gluconate, Providine iodine Skin preparation completely dr: Yes Insertion site: Right, Internal jugular Central line catheter type: Zoc-lqovimzu-hth dialysis Number of lumens: 3 Antiseptic ointment applied to: Yes Post Assessment: Chest X-Ray Differential Dx Considerations may include: ANEMIA X-Ray, Labs, Meds, VS Vital Signs Date Time Temp Pulse Resp B/P (MAP) Pulse Ox O2 Delivery O2 Flow Rate FiO2 10/08/24 08:00 101 10/08/24 08:00 99.1 104 18 98/55 (69) 97 99.1 10/08/24 07:50 Nasal Cannula* 2 28 10/08/24 05:50 100.2 132 18 97/59 (72) 93 100.2 Lab Test 10/08/24 07:12 Range/Units White Blood Count 8.1 4.4-10.8 10^3/uL Red Blood Count 2.93 L 4.5-5.90 10^6/uL Hemoglobin 8.7 L 13.5-17.5 g/dL Hematocrit 25.3 L 41.0-53.0 % Mean Corpuscular Volume 86.4 80.0-100.0 fL Mean Corpuscular Hemoglobin 29.9 28.0-32.0 pg Mean Corpuscular Hemoglobin Concent 34.6 32.0-36.0 g/dL Red Cell Distribution Width 15.5 H 11.8-14.3 % Platelet Count 95 L 140-450 10^3/uL Mean Platelet Volume 10.1 6.9-10.8 fL Neutrophils (%) (Auto) 37.0-80.0 % Lymphocytes (%) (Auto) 10.0-50.0 % Monocytes (%) (Auto) 0.0-12.0 % Basophils (%) (Auto) 0.0-2.0 % Neutrophils # (Auto) 1.6-8.6 10 ^3/uL Lymphocytes # (Auto) 0.4-5.4 10 ^3/uL Monocytes # (Auto) 0-1.3 10 ^3/uL Differential Total Cells Counted 100.0 100 Neutrophils % (Manual) 81 H 37.0-80.0 Band Neutrophils % (Manual) 8 Lymphocytes % (Manual) 9 L 10.0-50.0 Monocytes % (Manual) 2 0-12 Eosinophils % (Manual) 0 0-7 Basophils % (Manual) 0 0.0-2.0 Metamyelocytes % (manual) 0 Myelocytes % (Manual) 0 Promyelocytes % (Manual) 0 Blast Cells % (Manual) 0 Reactive Lymphocytes 0 Platelet Estimate Decreased Prothrombin Time 13.4 H 9.3-11.8 sec Prothrombin Time INR 1.30 H 0.9-1.15 Activated Partial Thromboplast Time 30.0 24.5-34.5 SEC Sodium Level 136 136-145 mmol/L Potassium Level 3.7 3.5-5.1 mmol/L Chloride Level 102 98-107 mmol/L Carbon Dioxide Level 23 20-31 mmol/L Anion Gap 11 5-15 Blood Urea Nitrogen 11 9-23 mg/dL Creatinine 0.73 0.700-1.30 mg/dL Glomerular Filtration Rate Calc 100 >90 mL/min BUN/Creatinine Ratio 15.1 10.0-20.0 Serum Glucose 128 H 74-106 mg/dL Lactic Acid Level 2.6 *H 0.4-2.0 mmol/L Calcium Level 9.3 8.7-10.4 mg/dL Total Bilirubin 0.7 0.2-1.0 mg/dL Aspartate Amino Transferase (AST) 67 H 13-40 U/L Alanine Aminotransferase (ALT) 110 H 7-40 U/L Alkaline Phosphatase 113 46-116 U/L Total Protein 7.9 5.7-8.2 g/dL Albumin 3.3 3.2-4.8 g/dL Current Medications Medications (Trade) Dose Ordered Sig/Fabricio Route Start Time Stop Time Status Last Admin Vancomycin HCl 200 ml @ 200 mls/hr ONCE ONCE IV 10/08/24 06:45 10/08/24 07:44 DC 10/08/24 08:25 Sodium Chloride 1,000 ml @ 1,000 mls/hr Q1H ONCE IV 10/08/24 06:45 10/08/24 07:44 DC 10/08/24 08:25 Sodium Chloride 1,000 ml @ 150 mls/hr Q6H40M ONCE IV 10/08/24 06:45 10/08/24 13:24 DC 10/08/24 09:28 Cefepime HCl 50 ml @ 12.5 mls/hr ONCE ONCE IV 10/08/24 07:00 10/08/24 10:59 DC 10/08/24 09:30 Patient alert. Complaining of generalized weakness. Right lower extremity swelling which is chronic. Answering questions. Possible sepsis. Establish intravenous access. Was given fluids. Infection can not be from right lower extremity. Was given antibiotics. Hemoglobin appropriate for his condition. Last blood transfusion was last week. Reviewed his previous visit. Explained to the patient. Continue monitoring. [facility] [id number] [place] [id number] Ph: [phone] DIAGNOSTIC IMAGING Diagnostic Imaging Report : [id number] Signed PATIENT: MEME ALONSO JRACCT: [id number] UNIT: [id number] : 1955 LOC: ER ROOM / BED: / AGE / SEX: 69 / M ADM STATUS: REG ER SERVICE ORDERING PHYSICIAN: TEE ATKINS MD PROCEDURE(s): CXRP - CHEST PORTABLE REASON: sob ORDER NUMBER(s): [id number], ACCESSION NUMBER(s): [id number] CHEST RADIOGRAPH Indication: sob Technique: Single frontal view of the chest was obtained COMPARISON: XY CHEST PORTABLE on DOS: 08/16/24, XY CHEST PORTABLE on DOS: 07/09/24, XY CHEST PORTABLE on DOS: 06/18/24, XY CHEST PORTABLE on DOS: 05/18/24, XY CHEST PORTABLE on DOS: 05/07/24 FINDINGS: Lines and Tubes: None Lungs: Multifocal airspace disease Pleura: No effusion. No pneumothorax. Cardiomediastinal contours: Unremarkable Bones: Unremarkable IMPRESSION: Severe multifocal airspace disease ATED BY: SALO CHAVES MD DICTATED DATE/TIME: 10/08/24907 SIGNED BY: SALO CHAVES MD SIGNED DATE/TIME: 10/08/24907 CC: Time of 1ST Reevaluation: 06:50 Reevaluation 1ST: Unchanged Patient Education/Counseling: Diagnosis, Treatment Family Education/Counseling: No Family Present SEPSIS Sepsis Screen Date sepsis recognized/suspect: Oct 08, 2024 Time Sepsis recognized/suspect: 0550 Recent Procedure: No On Antibiotic Therapy: No Respiratory Rate >20: No Heart Rate >90: No Temp<36 C (96.8 F) or >38.3 C: No SBP <90 or MAP <65 mmHG: No New Acute Mental Status Change: No Is the patient on CPAP, BIPAP,: No Physician Orders Chest Portable (10/08/24 06:45) Accucheck (10/08/24 06:45) Blood Culture (10/08/24 06:45) Notify Md If Map <65 Or Bp<90 (10/08/24 06:45) If Map<65 Start Vasopressor (10/08/24 06:45) Sepsis Reassesment After Fluid (10/08/24 07:45) Vital Signs Date Time Temp Pulse Resp B/P (MAP) Pulse Ox O2 Delivery O2 Flow Rate FiO2 7/22/25 08:00 101 10/08/24 08:00 99.1 104 18 98/55 (69) 97 99.1 10/08/24 07:50 Nasal Cannula* 2 28 10/08/24 05:50 100.2 132 18 97/59 (72) 93 100.2 Laboratory Tests Test 10/08/24 07:12 Lactic Acid Level 2.6 mmol/L (0.4-2.0) *H White Blood Count 8.1 10^3/uL (4.4-10.8) Medications Medications Dose Ordered Sig/Fabricio Route Start Time Stop Time Status Last Admin Dose Admin Cefepime HCl 50 ml @ 12.5 mls/hr ONCE ONCE IV 10/08/24 07:00 10/08/24 10:59 DC 10/08/24 09:30 Sodium Chloride 1,000 ml @ 150 mls/hr Q6H40M ONCE IV 10/08/24 06:45 10/08/24 13:24 DC 10/08/24 09:28 Sodium Chloride 1,000 ml @ 1,000 mls/hr Q1H ONCE IV 10/08/24 06:45 10/08/24 07:44 DC 10/08/24 08:25 Vancomycin HCl 200 ml @ 200 mls/hr ONCE ONCE IV 10/08/24 06:45 10/08/24 07:44 DC 10/08/24 08:25 Departure 1 Departure Time of Disposition: 07:52 Impression: Primary Impression: Sepsis Qualified Codes: A41.9 - Sepsis, unspecified organism Additional Impressions: Symptomatic anemia Cellulitis of right lower extremity Disposition: ADMITTED INPATIENT Admit to: Med Surg Condition: Guarded Critical Care Note Critical Care Time?: Yes (90 min-critical care time only) Critical care comment: Sepsis protocol Stability Stability form required: No Heart Score Heart Score: Heart Score Response (Comments) Value History N/A 0 EKG N/A 0 Age N/A 0 Risk Factors N/A 0 Troponin N/A 0 Total 0 I personally scribed for TEE ATKINS MD ([email or web address]) on 10/08/24 at 06:49. Electronically submitted by Maria Elena Barton ([email or web address]). I personally scribed for TEE ATKINS MD ([email or web address]) on 10/08/24 at 09:52. Electronically submitted by Maria Elena Barton ([email or web address]). TEE ATKINS MD Oct 08, 2024 06:49
[2024-10-08 07:34] LABS: Hematocrit 25.3 % (41.0-53.0); Hemoglobin 8.7 g/dL (13.5-17.5); Mean Corpuscular Hemoglobin 29.9 pg (28.0-32.0); Mean Corpuscular Volume 86.4 fL (80.0-100.0)
[2024-10-08 07:49] LABS: INR 1.3 (0.9-1.15); Partial Thromboplastin Time 30.0 SEC (24.5-34.5); Prothrombin Time 13.4 sec (9.3-11.8)
[2024-10-08 07:51] LABS: Albumin 3.3 g/dL (3.2-4.8); Alkaline Phosphatase 113 U/L (46-116); Anion Gap 11 (5-15); BUN/Creatinine Ratio 15.1 (10.0-20.0); Bilirubin, Total 0.7 mg/dL (0.2-1.0); Blood Urea Nitrogen 11 mg/dL (9-23); Calcium 9.3 mg/dL (8.7-10.4); Carbon Dioxide 23 mmol/L (20-31); Chloride 102 mmol/L (98-107); Potassium 3.7 mmol/L (3.5-5.1); Total Protein 7.9 g/dL (5.7-8.2)
[2024-10-08 07:52] LABS: Alanine Aminotransferase 110 U/L (7-40); Glucose 128 mg/dL (74-106); Lactic Acid w/Reflex 2.6 mmol/L (0.4-2.0); Sodium 136 mmol/L (136-145)
[2024-10-08] MEDS: SODIUM CHLORIDE 0.9% 1,000 ML IV ONE ×3 (08:25→10:46)
[2024-10-08] MEDS: VANCOMYCIN 1GM/200ML PM 200 ML IV ONE (08:25)
[2024-10-08] MEDS ORDERED: DOCUSATE SOD 100 MG CAP PO PRN (08:45)
[2024-10-08] MEDS ORDERED: VANCOMYCIN PER PHARMACY 0 MG IV SCH (08:45)
[2024-10-08] MEDS ORDERED: MORPHINE SULFATE INJ 2 MG/ml SYRG IV PRN (08:45)
[2024-10-08] MEDS ORDERED: NITROGLYCERIN 0.4 MG SL TAB SL PRN (08:45)
--- NOTE | 2024-10-08 09:11 | DVH ---
CHEST RADIOGRAPH Indication: sob Technique: Single frontal view of the chest was obtained COMPARISON: XY CHEST PORTABLE on DOS: 08/16/24, XY CHEST PORTABLE on DOS: 07/09/24, XY CHEST PORTABLE o n DOS: 06/18/24, XY CHEST PORTABLE on DOS: 05/18/24, XY CHEST PORTABLE on DOS: 05/07/24 FINDINGS: Lines and Tubes: None Lungs: Multifocal airspace disease Pleura: No effusion. No pneumothorax. Cardiomediastinal contours: Unremarkable Bones: Unremarkable IMPRESSION: Severe multifocal airspace disease
[2024-10-08 09:13] LABS: Total Cells Counted 100.0 (100)
[2024-10-08] MEDS: CEFEPIME 1GM/ 50ML 50 ML IV ONE (09:30)
--- NOTE | 2024-10-08 09:35 | DVHHP2 ---
History of Present Illness Reason for Visit: Generalized weakness History of Present Illness Eugene Alejandro is a 69-year-old male with past medial history of myelodysplastic syndrome, prostate cancer status post resection, COPD, schizophrenia, hypotension, and previous admissions for severe anemia due to myelodysplastic syndrome who presented to the emergency department with a chief complaint of dizziness. Patient states he has been feeling weak for a couple days. Patient is seen here frequently for blood transfusions. He has been losing weight and continues to lose weight. He states he does not feel hungry. Last admission, earlier this month, the patient was transferred to [place] for higher level of care due to chronic right leg cellulitis. He was transferred for possible surgical intervention after a CT of right leg with contrast showed possible necrotizing fasciitis. Patient's right leg continues to have worsening edema and now multiple draining wounds. Chest X-ray shows multifocal airspace disease. Pulmonary: COPD Heme/Onc: Cancer (prostate), Other (myelodysplastic syndrome) Psych: Schizophrenia Past Surgical History: Other (right leg skin graft), Tonsillectomy Smoke: <1 pack per day ALCOHOL: none Drugs: None Lives: with Family Domestic Violence: Neg Review of Systems Constitutional: Yes: Fever, Weakness, Malaise; No: Chills, Sweats, Other Eyes: No: Pain, Vision change, Conjunctivae inflammation, Eyelid inflammation, Other, Redness ENT: No: Ear pain, Ear discharge, Nose pain, Nose discharge, Nose congestion, Mouth pain, Mouth swelling, Throat pain, Throat swelling, Other Respiratory: No: Cough, Dry, Shortness of breath, SOB with excertion, Wheezing, Hemoptysis, Pleuritic Pain, Sputum, Wheezing, Other Cardiovascular: No: Chest Pain, Palpitations, Orthopnea, Paroxysmal Noc. Dyspnea, Edema, Lt Headedness, Other Gastrointestinal: No: Nausea, Vomiting, Abdominal Pain, Diarrhea, Constipation, Melena, Hematochezia, Other Genitourinary: No Dysuria, No Frequency, No Incontinence, No Hematuria, No Retention, No Other Musculoskeletal: No: other, neck pain, shoulder pain, arm pain, back pain, hand pain, leg pain, foot pain Skin: No: Rash, Lesions, Jaundice, Bruising, Other Neurological: No: Weakness, Numbness, Incoordination, Change in speech, Confusion, Seizures, Other Allergies: Coded Allergies: NO KNOWN ALLERGIES (Unverified , 12/04/23) Medications Current Medications Medications Dose Ordered Sig/Fabricio Route Start Time Stop Time Status Last Admin Dose Admin Cefepime HCl 50 ml @ 12.5 mls/hr Q8HR IV 10/08/24 14:00 Exam Vital Signs Vital Signs Date Time Temp Pulse Resp B/P (MAP) Pulse Ox O2 Delivery O2 Flow Rate FiO2 10/08/24 05:50 100.2 132 18 97/59 (72) 93 100.2 General Appearance: Alert, Oriented X3, Cooperative, moderate distress HEENT: Atraumatic, PERRLA Cardiovascular: Normal S1, Normal S2, Other (ST) Abdominal: Normal bowel sounds, Soft Extremities: Other (right leg +4 edema, left leg +2 edema, edema goes up to groin and lower abdomen) Skin: No significant lesion (multiple draining wound to right lower leg) Neuro: Normal speech Psych/Mental Status: Mood NL Labs/Xrays Labs Test 10/08/24 07:12 Range/Units White Blood Count 8.1 4.4-10.8 10^3/uL Red Blood Count 2.93 L 4.5-5.90 10^6/uL Hemoglobin 8.7 L 13.5-17.5 g/dL Hematocrit 25.3 L 41.0-53.0 % Mean Corpuscular Volume 86.4 80.0-100.0 fL Mean Corpuscular Hemoglobin 29.9 28.0-32.0 pg Mean Corpuscular Hemoglobin Concent 34.6 32.0-36.0 g/dL Red Cell Distribution Width 15.5 H 11.8-14.3 % Platelet Count 95 L 140-450 10^3/uL Mean Platelet Volume 10.1 6.9-10.8 fL Neutrophils (%) (Auto) 37.0-80.0 % Lymphocytes (%) (Auto) 10.0-50.0 % Monocytes (%) (Auto) 0.0-12.0 % Basophils (%) (Auto) 0.0-2.0 % Neutrophils # (Auto) 1.6-8.6 10 ^3/uL Lymphocytes # (Auto) 0.4-5.4 10 ^3/uL Monocytes # (Auto) 0-1.3 10 ^3/uL Prothrombin Time 13.4 H 9.3-11.8 sec Prothrombin Time INR 1.30 H 0.9-1.15 Activated Partial Thromboplast Time 30.0 24.5-34.5 SEC Sodium Level 136 136-145 mmol/L Potassium Level 3.7 3.5-5.1 mmol/L Chloride Level 102 98-107 mmol/L Carbon Dioxide Level 23 20-31 mmol/L Anion Gap 11 5-15 Blood Urea Nitrogen 11 9-23 mg/dL Creatinine 0.73 0.700-1.30 mg/dL Glomerular Filtration Rate Calc 100 >90 mL/min BUN/Creatinine Ratio 15.1 10.0-20.0 Serum Glucose 128 H 74-106 mg/dL Lactic Acid Level 2.6 *H 0.4-2.0 mmol/L Calcium Level 9.3 8.7-10.4 mg/dL Total Bilirubin 0.7 0.2-1.0 mg/dL Aspartate Amino Transferase (AST) 67 H 13-40 U/L Alanine Aminotransferase (ALT) 110 H 7-40 U/L Alkaline Phosphatase 113 46-116 U/L Total Protein 7.9 5.7-8.2 g/dL Albumin 3.3 3.2-4.8 g/dL CHEST RADIOGRAPH FINDINGS: Lines and Tubes: None Lungs: Multifocal airspace disease Pleura: No effusion. No pneumothorax. Cardiomediastinal contours: Unremarkable Bones: Unremarkable IMPRESSION: Severe multifocal airspace disease SEPSIS Sepsis Screen Date sepsis recognized/suspect: Oct 08, 2024 Time Sepsis recognized/suspect: 549 Recent Procedure: No On Antibiotic Therapy: No Respiratory Rate >20: No Heart Rate >90: No Temp<36 C (96.8 F) or >38.3 C: No SBP <90 or MAP <65 mmHG: No New Acute Mental Status Change: No Is the patient on CPAP, BIPAP,: No Physician Orders Complete Blood Count (10/08/24 06:45) Urinalysis (10/08/24 06:45) Chest Portable (10/08/24 06:45) Accucheck (10/08/24 06:45) Blood Culture (10/08/24 06:45) Cefepime 1gm/ 50ml (Maxipime 1gm/50ml) (10/08/24 14:00) Notify Md If Map <65 Or Bp<90 (10/08/24 06:45) If Map<65 Start Vasopressor (10/08/24 06:45) Sepsis Reassesment After Fluid (10/08/24 07:45) Sodium Chloride 0.9% (10/08/24 06:45) Cefepime 1gm/ 50ml (Maxipime 1gm/50ml) (10/08/24 07:00) Manual Differential (10/08/24 07:12) Admit (10/08/24 08:38) Code Status (10/08/24 08:38) Hydrocodone-Acet 5/325mg Tab (Helena 5/32 (10/08/24 08:45) Ondansetron Hcl (Zofran) (10/08/24 08:45) Docusate Sodium Capsule (Colace Capsule) (10/08/24 08:45) Complete Blood Count (10/09/24 04:00) Comprehensive Metabolic Panel (10/09/24 04:00) Condition: Serious (10/08/24 08:38) Acetaminophen Tablet (Tylenol Tablet) (10/08/24 08:45) Morphine Sulfate Injection (10/08/24 08:45) Nitroglycerin Sublingual (Ntrostat Subli (10/08/24 08:45) Morphine Sulfate Injection (10/08/24 08:45) Stat Ekg For Chest Pain (10/08/24 08:38) Notify Md Of Changes From Base (10/08/24 08:38) Consulting Project Director For 24 Hours (10/08/24 08:38) Emergency Dysrhythmia Protocol (10/08/24 08:38) Rhythm Strips Once Every Shift (10/08/24 08:38) Oxygen By Nasal Cannula (10/08/24 08:38) * Infectious E[place]- Dr. Anguiano (10/08/24 08:38) Vancomycin Per Pharmacy (10/08/24 08:45) Zosyn Extended Infusion (10/08/24 14:00) * Wound Consult (10/08/24 ) Wound Culture W/ Gs (10/08/24 08:38) Vital Signs Date Time Temp Pulse Resp B/P (MAP) Pulse Ox O2 Delivery O2 Flow Rate FiO2 10/08/24 05:50 100.2 132 18 97/59 (72) 93 100.2 Laboratory Tests Test 10/08/24 07:12 Lactic Acid Level 2.6 mmol/L (0.4-2.0) *H White Blood Count 8.1 10^3/uL (4.4-10.8) Medications Medications Dose Ordered Sig/Fabricio Route Start Time Stop Time Status Last Admin Dose Admin Sodium Chloride 1,000 ml @ 1,000 mls/hr Q1H ONCE IV 10/08/24 06:45 10/08/24 07:44 DC 10/08/24 08:25 1,000 MLS/HR Vancomycin HCl 200 ml @ 200 mls/hr ONCE ONCE IV 10/08/24 06:45 10/08/24 07:44 DC 10/08/24 08:25 200 MLS/HR Assessment/Plan Assessment/Plan Assessment: Cellulitis of right lower extremity, Possible Sepsis, Possible pneumonia, Symptomatic anemia, Thrombocytopenia, Myelodysplastic syndrome, Schizophrenia, Plan: Admit to [facility], Infectious disease consult, IV antibiotics, IV hydration, Wound care consult, Wound culture, Manage/Monitor H&H closely, Dietary consult, Breathing treatments, Supplemental oxygen as needed, Home medications reconciled, Plan discussed with: Patient My Orders Orders - ANNIKA SYED Procedure Category Date Status Time Admit ADMIT 10/08/24 Transmitted 08:38 Code Status CODE 10/08/24 Transmitted 08:38 Hydrocodone-Acet PHA 10/08/24 Transmitted 5/325mg Tab ([place] 08:45 Ondansetron Hcl PHA 10/08/24 Transmitted (Zofran) 08:45 Docusate Sodium PHA 10/08/24 Transmitted Capsule (Colace 08:45 Complete Blood Count LAB 10/09/24 Verified 04:00 Comprehensive LAB 10/09/24 Verified Metabolic Panel 04:00 Condition: Serious KATIA 10/08/24 Transmitted 08:38 Acetaminophen Tablet PHA 10/08/24 Transmitted (Tylenol Tablet) 08:45 Morphine Sulfate PHA 10/08/24 Transmitted Injection 08:45 Nitroglycerin PHA 10/08/24 Transmitted Sublingual (Ntrostat 08:45 Morphine Sulfate PHA 10/08/24 Transmitted Injection 08:45 Stat Ekg For Chest [facility] 10/08/24 Transmitted Pain 08:38 Notify Of Changes [facility] 10/08/24 Transmitted From Base 08:38 Consulting Project Director For [facility] 10/08/24 Transmitted 24 Hours 08:38 Emergency Dysrhythmia [facility] 7/22/25 Transmitted Protocol 08:38 Rhythm Strips Once KATIA 10/08/24 Transmitted Every Shift 08:38 Oxygen By Nasal RT 10/08/24 Transmitted Cannula 08:38 * Infectious Birgit- CONS 10/08/24 Transmitted Mallad 08:38 Vancomycin Per PHA 10/08/24 Transmitted Pharmacy 08:45 Zosyn Extended PHA 10/08/24 Transmitted Infusion 14:00 * Wound Consult CONS 10/08/24 Transmitted Wound Culture W/ Gs [facility] 10/08/24 Transmitted 08:38 Date of Service: Oct 08, 2024 Billing Provider: ANNIKA SYED Common Visit Codes: [id number] INP/OBS CARE (HIGH) ANNIKA SYED Oct 08, 2024 09:35
[2024-10-08] MEDS ORDERED: RISPERIDONE 2 MG PO SCH (10:00)
[2024-10-08] MEDS ORDERED: PATIENTS OWN MEDICATION (Atorvastatin Calcium 1 TAB) PO SCH (10:00)
[2024-10-08] MEDS ORDERED: PATIENTS OWN MEDICATION (Gabapentin 600 MG) PO SCH (10:00)
[2024-10-08 10:02] VITALS: BP 98/55; PULSE 104; RESP 18; TEMP 100.2; O2SAT 97
[2024-10-08] MEDS: risperiDONE 1 MG TAB PO SCH (10:43)
[2024-10-08] MEDS: GABAPENTIN 300 MG CAP PO SCH (10:43)
[2024-10-08] MEDS: ASPirin-EC 81 mg tab PO SCH (10:44)
[2024-10-08] MEDS: FUROSEMIDE 20 MG/2 ML VIAL IV SCH (10:45)
[2024-10-08 11:07] VITALS: PULSE 97; RESP 16; O2SAT 99
[2024-10-08] MEDS: ALBUTEROL SULF 2.5 MG/0.5ML(0.5%) NEB SOLN NEB SCH (11:07)
[2024-10-08] MEDS: IPRATROPIUM BROM 0.5 MG/2.5ML INH SOL NEB SCH (11:07)
[2024-10-08 11:17] VITALS: PULSE 97; RESP 20; O2SAT 100
[2024-10-08 11:50] VITALS: PULSE 96; RESP 17; O2SAT 99
[2024-10-08] MEDS: NOREPINEPHRINE 8 MG/250ML KIT 250 ML IV SCH (13:00)
[2024-10-08 13:44] LABS: Urine Protein, UAD 1+ (Negative)
[2024-10-08] MEDS ORDERED: CEFEPIME 1GM/ 50ML 50 ML IV SCH (14:00)
[2024-10-08] MEDS: MIDODRINE HCL 10 MG TAB PO SCH (14:19)
--- NOTE | 2024-10-08 14:34 | DVH ---
CHEST RADIOGRAPH Indication: central verification Technique: Single frontal view of the chest was obtained Comparison: XY CHEST PORTABLE on DOS: 10/08/24, XY CHEST PORTABLE on DOS: 08/16/24, XY CHEST PORTABLE o n DOS: 07/09/24, XY CHEST PORTABLE on DOS: 06/18/24, XY CHEST PORTABLE on DOS: 05/18/24, XY CHEST PORTABLE on DOS: 10/08/24 FINDINGS: Lines and Tubes: Right central venous catheter tip in the SVC. Lungs: Multifocal airspace disease Pleura: No effusion. No pneumothorax. Cardiomediastinal contours: Unremarkable Bones: Unremarkable IMPRESSION: Severe multifocal airspace disease
[2024-10-08] MEDS: ACETAMINOPHEN 325 MG TAB PO PRN (14:36)
[2024-10-08] MEDS: PIPERACILLIN-TAZOB 3.375GM 100 ML IV SCH (14:38)
[2024-10-08 15:28] LABS: Hematocrit 21.6 % (41.0-53.0); Hemoglobin 7.3 g/dL (13.5-17.5)
[2024-10-08] MEDS: IBUPROFEN 600 MG TAB PO ONE (15:56)
[2024-10-08] MEDS ORDERED: ALBUTEROL SULF 2.5 MG/0.5ML(0.5%) NEB SOLN NEB SCH (18:00)
[2024-10-08] MEDS: MIRTAZAPINE PO SCH (18:00)
[2024-10-08] MEDS ORDERED: IPRATROPIUM BROM 0.5 MG/2.5ML INH SOL NEB SCH (18:00)
[2024-10-08 18:26] VITALS: PULSE 68; PULSE 69; RESP 16; RESP 2; O2SAT 100
[2024-10-08] MEDS: VANCOMYCIN 1GM/200ML PM 200 ML IV SCH (20:49)
[2024-10-08 21:30] VITALS: PULSE 85; RESP 18; O2SAT 99
[2024-10-08] MEDS: MELATONIN 3 MG PO SCH (22:00)
[2024-10-08] MEDS: ATORVASTATIN 20 MG TAB PO SCH (22:42)
[2024-10-09] VITALS (91 sets, daily range): BP systolic 84–122; BP diastolic 30–68; PULSE 89–149; RESP 16–31; TEMP 97.9–101.1; O2SAT 76–100
[2024-10-09 06:15] LABS: Hematocrit 25.1 % (41.0-53.0); Hemoglobin 8.4 g/dL (13.5-17.5); Mean Corpuscular Hemoglobin 30.0 pg (28.0-32.0); Mean Corpuscular Volume 89.0 fL (80.0-100.0); Nucleated Red Blood Cells % 0.0 %
[2024-10-09 06:40] LABS: Anion Gap 9 (5-15); BUN/Creatinine Ratio 17.0 (10.0-20.0); Blood Urea Nitrogen 9 mg/dL (9-23); Calcium 8.8 mg/dL (8.7-10.4); Carbon Dioxide 20 mmol/L (20-31); Potassium 3.9 mmol/L (3.5-5.1); Sodium 136 mmol/L (136-145); Total Protein 6.6 g/dL (5.7-8.2)
[2024-10-09 06:41] LABS: Bilirubin, Total 0.5 mg/dL (0.2-1.0)
[2024-10-09 06:48] LABS: Alanine Aminotransferase 211 U/L (7-40); Albumin 2.8 g/dL (3.2-4.8); Alkaline Phosphatase 150 U/L (46-116); Chloride 107 mmol/L (98-107); Glucose 114 mg/dL (74-106)
[2024-10-09] MEDS: HYDROcodone-ACET 5/325MG TAB PO PRN (09:06)
--- NOTE | 2024-10-09 09:32 | DVHINCON2 ---
Date of service: Oct 09, 2024 Family History: Diabetes mellitus G8 MOTHER, Onset:60 years & older FH: heart attack G8 FATHER, , Onset:60 years & older Allergies: Coded Allergies: NO KNOWN ALLERGIES (Unverified , 12/04/23) Home Meds Active Scripts Midodrine Hcl (Midodrine Hcl) 10 Mg Tab, 10 MG PO TID for 30 Days, #90 TAB 3 Refills Prov:YOANDY SALAS LICENSED AUDIOLOGIST 06/06/24 Reported Medications Aspirin (Aspirin Low Dose) 81 Mg Tab, 1 TAB PO DAILY 09/03/24 Furosemide (Furosemide) 40 Mg Tab, 1 TAB PO DAILY 07/02/24 Risperidone (Risperidone) 2 Mg Tab, 2 MG PO BID, TAB 12/05/23 Mirtazapine (Mirtazapine Oral Disintegrating Tablet) 45 Mg Tab, 1 TAB PO QPM, #30 TAB 1 Refill 12/05/23 Melatonin (KP MELATONIN) 3 Mg Tab, 3 MG PO HS, TAB 12/05/23 Gabapentin (Gabapentin) 600 Mg Tab, 600 MG PO BID, TAB 12/05/23 Fluticasone Furoate (Inhalatio (Arnuity Ellipta) 200 Mcg/Act Inh, 200 MCG IN, INHALER 12/05/23 Atorvastatin Calcium (ATORVASTATIN CALCIUM) 40 Mg Tab, 1 TAB PO DAILY, #30 TAB 5 Refills 12/05/23 Albuterol Sulfate (VENTOLIN MDI) 90 Mcg Ih, 90 MCG IN, INH 12/05/23 Current Medications Current Medications Medications (Trade) Dose Ordered Sig/Fabricio Route PRN Reason Start Time Stop Time Status Last Admin Cefepime HCl 50 ml @ 12.5 mls/hr Q8HR IV 10/08/24 14:00 10/08/24 09:01 DC Piperacillin Sod/ Tazobactam Sod 100 ml @ 25 mls/hr Q8HR IV 10/08/24 14:00 10/09/24 05:55 Aspirin (Ecotrin Enteric Coated Tablet) 81 mg DAILY PO 10/08/24 10:00 10/08/24 10:44 Midodrine (Proamatine Tablet) 10 mg TID PO 10/08/24 14:00 10/09/24 05:55 Patient Own Medication 1 tab DAILY PO 10/08/24 10:00 UNV Patient Own Medication 600 mg BID PO 10/08/24 10:00 UNV Patient Own Medication 3 mg HS PO 10/08/24 22:00 10/08/24 22:00 Patient Own Medication 1 tab QPM PO 10/08/24 18:00 Patient Own Medication 2 mg BID PO 10/08/24 10:00 UNV Albuterol (Ventolin Medneb) 2.5 mg Q6HWA [facility] 10/08/24 12:00 10/09/24 05:49 Ipratropium [place] (Atrovent Medneb) 0.5 mg Q6HWA [facility] 10/08/24 12:00 10/09/24 05:49 Furosemide (Lasix Injection) 20 mg DAILY IV 10/08/24 10:00 Atorvastatin Calcium (Lipitor) 40 mg HS PO 10/08/24 22:00 10/08/24 22:42 Gabapentin (Neurontin Capsule) 600 mg BID PO 10/08/24 10:00 10/08/24 22:42 Vancomycin HCl 200 ml @ 160 mls/hr Q12H IV 10/08/24 21:00 10/09/24 08:35 Risperidone (RisperDAL TABLET) 2 mg BID PO 10/08/24 10:00 10/08/24 22:43 Norepinephrine Bitartrate 250 ml @ 3.75 mls/hr Q24H IV 10/08/24 12:45 10/08/24 13:00 Ipratropium [place] (Atrovent Medneb) 0.5 mg Q6HWA [facility] 10/08/24 18:00 UNV Albuterol (Ventolin Medneb) 2.5 mg Q6HWA [facility] 10/08/24 18:00 UNV Vital Signs Vital Signs Date Time Temp Pulse Resp B/P (MAP) Pulse Ox O2 Delivery O2 Flow Rate FiO2 10/09/24 08:00 22 90 Nasal Cannula* 2 28 10/09/24 08:00 119 10/09/24 06:50 121/58 10/09/24 06:24 97.9 97.9 Labs/Diagnostic Data Labs Test 10/09/24 05:48 10/08/24 13:31 10/08/24 09:11 10/08/24 07:12 Range/Units White Blood Count 7.9 4.4-10.8 10^3/uL Red Blood Count 2.81 L 4.5-5.90 10^6/uL Hemoglobin 8.4 #L 13.5-17.5 g/dL Hematocrit 25.1 #L 41.0-53.0 % Mean Corpuscular Volume 89.0 80.0-100.0 fL Mean Corpuscular Hemoglobin 30.0 28.0-32.0 pg Mean Corpuscular Hemoglobin Concent 33.7 32.0-36.0 g/dL Red Cell Distribution Width 16.3 H 11.8-14.3 % Platelet Count 69 L 140-450 10^3/uL Mean Platelet Volume 9.4 6.9-10.8 fL Neutrophils (%) (Auto) 88.7 H 37.0-80.0 % Lymphocytes (%) (Auto) 7.2 L 10.0-50.0 % Monocytes (%) (Auto) 1.3 0.0-12.0 % Eosinophils (%) (Auto) 1.7 0.0-7.0 % Basophils (%) (Auto) 1.1 0.0-2.0 % Neutrophils # (Auto) 7.0 1.6-8.6 10 ^3/uL Lymphocytes # (Auto) 0.6 0.4-5.4 10 ^3/uL Monocytes # (Auto) 0.1 0-1.3 10 ^3/uL Eosinophils # (Auto) 0.1 0-0.8 10 ^3/uL Basophils # (Auto) 0.1 0-0.2 10 ^3/uL Nucleated Red Blood Cells 0.0 % Sodium Level 136 136-145 mmol/L Potassium Level 3.9 3.5-5.1 mmol/L Chloride Level 107 98-107 mmol/L Carbon Dioxide Level 20 20-31 mmol/L Anion Gap 9 5-15 Blood Urea Nitrogen 9 9-23 mg/dL Creatinine 0.53 L 0.700-1.30 mg/dL Glomerular Filtration Rate Calc 110 >90 mL/min BUN/Creatinine Ratio 17.0 10.0-20.0 Serum Glucose 114 H 74-106 mg/dL Calcium Level 8.8 8.7-10.4 mg/dL Total Bilirubin 0.5 0.2-1.0 mg/dL Aspartate Amino Transferase (AST) 168 H 13-40 U/L Alanine Aminotransferase (ALT) 211 H 7-40 U/L Alkaline Phosphatase 150 H 46-116 U/L Total Protein 6.6 5.7-8.2 g/dL Albumin 2.8 L 3.2-4.8 g/dL Urine Color Dark yellow Yellow Urine Clarity Clear Clear Urine pH 6.0 5.0-9.0 Urine Specific [place] 1.024 1.001-1.035 Urine Protein 1+ H Negative Urine Ketones Negative Negative Urine Blood Negative Negative /uL Urine Nitrite Negative Negative Urine Bilirubin Negative Negative Urine Urobilinogen Normal Negative mg/dL Urine Leukocyte Esterase Negative Negative /uL Urine RBC 2 0 - 3 /hpf Urine Microscopic WBC 2 0-3 /HPF Urine Squamous Epithelial Cells Few <5 /hpf Urine Bacteria None seen None Seen /hpf Urine Mucus Few None Seen Urine Glucose Normal Normal mg/dL Lactic Acid Level 1.3 0.4-2.0 mmol/L Differential Total Cells Counted 100.0 100 Neutrophils % (Manual) 81 H 37.0-80.0 Band Neutrophils % (Manual) 8 Lymphocytes % (Manual) 9 L 10.0-50.0 Monocytes % (Manual) 2 0-12 Eosinophils % (Manual) 0 0-7 Basophils % (Manual) 0 0.0-2.0 Metamyelocytes % (manual) 0 Myelocytes % (Manual) 0 Promyelocytes % (Manual) 0 Blast Cells % (Manual) 0 Reactive Lymphocytes 0 Platelet Estimate Decreased Prothrombin Time 13.4 H 9.3-11.8 sec Prothrombin Time INR 1.30 H 0.9-1.15 Activated Partial Thromboplast Time 30.0 24.5-34.5 SEC Microbiology Date/Time Source Procedure Growth Status 10/08/24 16:22 Leg Gram Stain Pending Resulted 10/08/24 16:22 Leg Wound Culture - Preliminary Resulted 10/08/24 07:12 Blood Blood Culture - Preliminary NO GROWTH AFTER 24 HOURS OF INCUBATION. Resulted Problems(with codes): (1) Symptomatic anemia (2) Sepsis (3) Severe sepsis with septic shock (4) Hypotension (5) MDS (myelodysplastic syndrome) (6) Chest pain of unknown etiology (7) Acute renal injury (8) Fever, unspecified (9) History of prostate cancer Plan/Recommendation ASSESSMENT AND PLAN: ID Problem List: \-- Chronic myelodysplastic syndrome with recurrent anemia \-- Prostate cancer \-- COPD (post-resection) \-- Chronic hypertension \-- Schizophrenia \-- Chronic right lower extremity edema, recurrent cellulitis, draining ulcer \-- Septic shock (presumed) \-- Multifocal pneumonia Assessment Mr. Eugene Alejandro is a 69-year-old male with a history of myelodysplastic syndrome (recurrent anemia requiring weekly transfusions), prostate cancer, COPD (post-resection), hypertension on midodrine, and schizophrenia, who presents with weakness, dizziness, weight loss, poor oral intake, and worsening right lower extremity edema. Notable for new purulent drainage from both his posterior ankle and inferior villarreal and gross 4+ right leg edema. Patient denies leg pain. Noted flat affect, not eating. Past transfer to [place] for possible surgical evaluation based on CT evidence of muscle abscess/necrotizing fasciitis, though no acute surgery was indicated. At present, the patient remains hemodynamically unstable, requiring vasopressor support (levophed 16 mcg), and has evidence of septic shock (fever, hypotension, tachycardia, leukocytosis not present but anemia present, lactate 2.6, and ongoing purulent drainage of right LE ulcer presumed infectious). Imaging shows multifocal pneumonia (diffuse airspace disease). Right lower extremity exam: Massively edematous, non-tender, with 4+ edema and draining purulent ulcer lateral villarreal and posterior ankle. Current antibiotic regimen is vancomycin and cefepime pending cultures. Last Hb 8.7 after transfusion (matt 7.3). Patient is also severely hypertensive at baseline, unclear etiology of persistent relative hypotension, likely secondary to sepsis. Plan: \-- Continue empiric vancomycin and cefepime \-- Blood, sputum and wound cultures pending; recommend obtaining superficial wound culture from draining right lower extremity ulcer \-- MRI right lower extremity to further evaluate suspected muscle abscess/necrotizing infection \-- Continue vasopressor support (levophed), goal MAP > 65 \-- IV fluids as tolerated \-- Monitor for improvement/worsening of sepsis/shock \-- Continue blood transfusions as per hematology/primary; most recent Hgb 8.7 \-- Not recommended to diurese at present due to hemodynamics and ongoing sepsis/shock \-- Monitor oxygenation, continue supportive care including 2L nasal cannula \-- Ongoing care for schizophrenia as per psychiatry recommendations \-- Monitor laboratory markers and adjust antibiotics if indicated based on cultures Isolation Precautions: standard Authorized and Performed by: paola roman Total critical care time: Approximately 76 minutes Due to a high probability of clinically significant, life threatening deterioration, the patient required my highest level of preparedness to intervene emergently and I personally spent this critical care time directly and personally managing the patient. This critical care time included obtaining a history; examining the patient; pulse oximetry; ordering and review of studies; arranging urgent treatment with development of a management plan; evaluation of patient's response to treatment; frequent reassessment; and, discussions with other providers. This critical care time was performed to assess and manage the high probability of imminent, life-threatening deterioration that that could result in multi- organ failure. It was exclusive of separately billable procedures and treating other patients and teaching time. \*Assessment and plan was discussed with the patient as written above \*Plan is subject to change pending incorporation of new incoming information/diagnostics. Updates may be added as addendum at the bottom (or top) of this note Thank you for interesting consult. ID will continue to follow. Please contact Infectious diseases for any questions or concerns. Paola Roman M.D. [facility] Ph: ? \ History: The patient's chart and medications were reviewed in detail and the patient was seen and examined. History obtained from: patient Mr. Eugene Alejandro is a 69-year-old male with a history of chronic myelodysplastic syndrome (recurrent anemia, weekly transfusions), prostate cancer, COPD (post-resection), chronic hypertension on midodrine, and schizophrenia presenting with weakness, dizziness, poor intake, weight loss, worsening right leg edema, and new purulent drainage from right lower extremity wounds. Transferred previously for possible surgical intervention (concern for necrotizing fasciitis/muscle abscess), but acute surgery not performed. He remains on empiric vancomycin and cefepime. Review of Systems: A complete 10-system review of systems was completed and negative except as noted in the HPI or here. ROS: -CONSTITUTIONAL: Denies fever and chills. Reports weight loss and weakness. -HEENT: Denies changes in vision and hearing. -RESPIRATORY: Denies chest pain, reports shortness of breath, confirmed multifocal disease on CXR. -CARDIOVASCULAR: Denies palpitations or chest pain. -GI: Denies nausea, vomiting, diarrhea or abdominal pain. Not eating. -: Denies dysuria or urinary frequency. -MSK: Denies joint pain. Reports severe right leg swelling. -SKIN: Reports purulent drainage from right ankle and villarreal ulcer. -NEUROLOGICAL: Denies headache or syncope. -PSYCHIATRIC: Flat affect, history of schizophrenia. Past Medical History: -Chronic myelodysplastic syndrome with recurrent anemia -Chronic hypertension -Prostate cancer -Chronic obstructive pulmonary disease (post-resection) -Schizophrenia Past Surgical History: History of tonsillectomy. No additional surgical history provided. Home Medications: -Midodrine (dose and schedule not specified) -Other home medications: Not provided in transcript -No known drug allergies Allergies: No known drug allergies (NKDA) Family History: Not provided in transcript. Social History: -Smokes less than half a pack a day -No alcohol -No IV drug use -Social/sexual activity not discussed Social Determinants of Health: Not provided in transcript. Objective: Vital Signs on Arrival: -Temp: 100.2F -BP: 97/57 -Pulse: 132 -Resp: 18 -SpO?: 93% on 2L nasal cannula Most Recent Vital Signs: Not provided beyond initial presentation. Admission Weight: Not provided in transcript. Physical Exam: General: NAD Neck: Supple. No masses. HEENT: PERRL. Normal lids and conjunctiva. Moist mucous membranes. Oropharynx without lesions, exudates or excessive erythema. Normal appearance of the external aspects of the nose and ears. Heart: Regular rhythm, normal rate. No murmur. No lower extremity edema (replace with: profound right lower extremity 4+ edema). Lungs: Normal respiratory effort. Clear to auscultation bilaterally. No wheezes. No crackles. Abdomen: Soft. Non-tender. Non-distended. No masses or abdominal hernia. Msk: Right leg: profound, non-tender 4+ pitting edema; purulent ulcer on inferior villarreal and posterior ankle. No digital cyanosis. Normal strength and tone in all other limbs. Skin: Warm and dry except right leg; draining purulent ulcers inferior villarreal and posterior ankle. Neuro: Alert. No facial droop or slurred speech. Extra-ocular movements intact. Sensation intact to soft touch in all 4 limbs. Psych: Flat affect. Oriented to person, place, time, and situation. Lines: Not provided in transcript. Diagnostic Studies: Available diagnostic studies were reviewed personally. Significant relevant results and findings are outlined below or addressed in the Assessment and Plan above. Pertinent Laboratory Results: -WBC: 8.1 -Hemoglobin: 8.7 post-transfusion (matt: 7.3) -Platelets: 95 -Sodium: 136 -BUN: 11 -Creatinine: 0.73 -Lactic acid: 2.6 -AST: 67 -ALP: 3.1 -Bilirubin: 0.7 Pertinent Imaging: -Chest X-ray: Severe multifocal airspace disease -Right lower extremity CT: Abscesses in muscle, concern for possible necrotizing fasciitis (imaging previously done) -Recent imaging: MRI of right lower extremity recommended Microbiology: -Blood cultures: Pending -Sputum culture: Pending -Superficial wound culture: Recommended Electronically signed by: Paola Roman MD, 10/09/2024 Plan discussed with: Patient PAOLA ROMAN MD Oct 09, 2024 09:32
--- NOTE | 2024-10-09 12:19 | DVHPN2 ---
Subjective Seen in bed OFF levophed this morning Reviewed: H&P, Labs Changes from previous H/P or p: No Changes Eyes: No Pain, No Vision change, No Conjunctivae inflammation, No Eyelid inflammation, No Other, No Redness ENT: No Ear pain, No Ear discharge, No Nose pain, No Nose discharge, No Nose congestion, No Mouth pain, No Mouth swelling, No Throat pain, No Throat swelling, No Other Cardiovascular: No Chest Pain, No Palpitations, No Orthopnea, No Paroxysmal Noc. Dyspnea, No Edema, No Lt Headedness, No Other Respiratory: No Cough, No Dry, No Shortness of breath, No SOB with excertion, No Wheezing, No Hemoptysis, No Pleuritic Pain, No Sputum, No Other Gastrointestinal: No Nausea, No Vomiting, No Abdominal Pain, No Diarrhea, No Constipation, No Melena, No Hematochezia, No Other Genitourinary: No Dysuria, No Frequency, No Incontinence, No Hematuria, No Retention, No Other Musculoskeletal: No other, No neck pain, No shoulder pain, No arm pain, No back pain, No hand pain, No leg pain, No foot pain Skin: No Rash, No Lesions, No Jaundice, No Bruising, No Other Objective Vitals Vital Signs Date Time Temp Pulse Resp B/P (MAP) Pulse Ox O2 Delivery O2 Flow Rate FiO2 10/09/24 11:37 102 18 98 10/09/24 11:30 Nasal Cannula 2.0 10/09/24 11:30 28 10/09/24 09:57 111/57 10/09/24 09:00 99.4 99.4 Intake/Output Intake and Output 10/09/24 07:00 Intake Total 2350.0000 ml Output Total 1600 ml Balance 750.0000 ml Intake Oral 360 ml IV Total 1990.0000 ml Output Urine Total 1600 ml # Voids 1 General Appearance: Alert, Oriented X3 HEENT: Atraumatic Lungs: Clear to auscultation Cardiovascular: Regular rate, Normal S1, Normal S2 Abdomen: Normal bowel sounds Extremities: Other (right leg swelling) Medications Current Medications Medications Dose Ordered Sig/Fabricio Route Start Time Stop Time Status Last Admin Dose Admin Acetaminophen/ Hydrocodone Bitart 1 tab Q4HP PRN PO 10/08/24 08:45 10/09/24 09:06 1 TAB Ondansetron HCl 4 mg Q4HP PRN IV 10/08/24 08:45 Docusate Sodium 100 mg BIDPRN PRN PO 10/08/24 08:45 Acetaminophen 650 mg Q6HP PRN PO 10/08/24 08:45 10/09/24 01:35 650 MG Morphine Sulfate 2 mg Q4HPRN PRN IV 10/08/24 08:45 Nitroglycerin 0.4 mg Q5MINP PRN SL 10/08/24 08:45 Morphine Sulfate 2 mg Q30M PRN IV 10/08/24 08:45 Vancomycin HCl 0 ml @ 0 mls/hr UD IV 10/08/24 08:45 Piperacillin Sod/ Tazobactam Sod 100 ml @ 25 mls/hr Q8HR IV 10/08/24 14:00 10/09/24 05:55 25 MLS/HR Aspirin 81 mg DAILY PO 10/08/24 10:00 10/09/24 10:07 81 MG Midodrine 10 mg TID PO 10/08/24 14:00 10/09/24 05:55 10 MG Patient Own Medication 1 tab DAILY PO 10/08/24 10:00 UNV Patient Own Medication 600 mg BID PO 10/08/24 10:00 UNV Patient Own Medication 3 mg HS PO 10/08/24 22:00 10/08/24 22:00 3 MG Patient Own Medication 1 tab QPM PO 10/08/24 18:00 Patient Own Medication 2 mg BID PO 10/08/24 10:00 UNV Albuterol 2.5 mg Q6HWA [facility] 10/08/24 12:00 10/09/24 11:29 2.5 MG Ipratropium [place] 0.5 mg Q6HWA [facility] 10/08/24 12:00 10/09/24 11:30 0.5 MG Furosemide 20 mg DAILY IV 10/08/24 10:00 10/09/24 09:57 20 MG Atorvastatin Calcium 40 mg HS PO 10/08/24 22:00 10/08/24 22:42 40 MG Gabapentin 600 mg BID PO 10/08/24 10:00 10/09/24 09:55 600 MG Vancomycin HCl 200 ml @ 160 mls/hr Q12H IV 10/08/24 21:00 10/09/24 08:35 160 MLS/HR Risperidone 2 mg BID PO 10/08/24 10:00 10/09/24 09:55 2 MG Norepinephrine Bitartrate 250 ml @ 3.75 mls/hr Q24H IV 10/08/24 12:45 10/08/24 13:00 3.75 MLS/HR Ipratropium [place] 0.5 mg Q6HWA [facility] 10/08/24 18:00 UNV Albuterol 2.5 mg Q6HWA [facility] 10/08/24 18:00 UNV Laboratory Results Laboratory Tests 10/09/24 05:48 Chemistry Test 10/09/24 05:48 Albumin 2.8 g/dL (3.2-4.8) L Calcium Level 8.8 mg/dL (8.7-10.4) Total Protein 6.6 g/dL (5.7-8.2) LFT Test 10/09/24 05:48 Alanine Aminotransferase (ALT) 211 U/L (7-40) H Alkaline Phosphatase 150 U/L (46-116) H Aspartate Amino Transferase (AST) 168 U/L (13-40) H Total Bilirubin 0.5 mg/dL (0.2-1.0) Urinalysis Test 10/08/24 13:31 Urine Color Dark yellow (Yellow) Urine Clarity Clear (Clear) Urine pH 6.0 (5.0-9.0) Urine Specific [place] 1.024 (1.001-1.035) Urine Protein 1+ (Negative) H Urine Ketones Negative (Negative) Urine Blood Negative /uL (Negative) Urine Nitrite Negative (Negative) Urine Bilirubin Negative (Negative) Urine Urobilinogen Normal mg/dL (Negative) Urine Leukocyte Esterase Negative /uL (Negative) Urine RBC 2 /hpf (0 - 3) Urine Microscopic WBC 2 /HPF (0-3) Urine Squamous Epithelial Cells Few /hpf (<5) Urine Bacteria None seen /hpf (None Seen) Urine Mucus Few (None Seen) Urine Glucose Normal mg/dL (Normal) Microbiology Microbiology Date/Time Source Procedure Growth Status 10/08/24 16:22 Leg Gram Stain Pending Resulted 10/08/24 16:22 Leg Wound Culture - Preliminary Resulted 10/08/24 07:12 Blood Blood Culture - Preliminary NO GROWTH AFTER 24 HOURS OF INCUBATION. Resulted Assessment/Plan Assessment/Plan Cellulitis of right lower extremity, Possible Sepsis, Possible pneumonia, Symptomatic anemia, Thrombocytopenia, Myelodysplastic syndrome, Schizophrenia, Continue IV abx vanco and zosyn MRI leg to evaluate US venous doppler IV lasix Plan discussed with: Patient Date of Service: Oct 09, 2024 Billing Provider: JAME HOOPER MD Common Visit Codes: [id number] INP/OBS CARE(HIGH) JAME HOOPER MD Oct 09, 2024 12:19
--- NOTE | 2024-10-09 14:36 | DVH ---
Clinical History: RLE swelling Comparison: US RT LOWER DVT on DOS: 09/10/24, US RT LOWER DVT on DOS: 09/03/24, US RT LOWER DVT on DOS: 08/16/24, US RT LOWER DVT on DOS: 05/07/24, US RT LOWER DVT on DOS: 03/28/24 Technique: Duplex Doppler evaluation of the deep venous system of the right lower extremity from the common femo ral vein to the popliteal vein including color Doppler and spectral/pulsed waveform analysis was perf ormed. Findings: The common femoral vein demonstrates appropriate compressibility and waveform variability. There is compressibility/patency of the great saphenous vein at the proximal thigh. The femoral vein demonstrates appropriate compressibility and waveform variability. The deep femoral vein demonstrates appropriate compressibility and waveform variability. The popliteal vein demonstrates appropriate compressibility and waveform variability. There is normal compressibility at the tibioperoneal trunk. Impression: No rightdeep venous thrombosis. If clinical concern/symptoms persist or worsen, short-interval follow-up study is suggested.
--- NOTE | 2024-10-09 15:27 | DVH ---
CLINICAL HISTORY: Right leg abscess. TECHNIQUE: Multisequence multiplanar MRI images of the right ankle were obtained prior to and after the administration of 15 mL Clariscan contrast. The [id number] of the exam was increased due to th e area of clinical concern including portions of the right lower leg. COMPARISON: MRI MRI R ANKLE WITH WO CONTRA on DOS: 03/18/24. FINDINGS: Moderate subcutaneous edema is seen around the ankle, hindfoot, and visualized portions of the right lower leg. There are scattered areas of fluid within the soft tissues, most prominent in the lateral aspect of the lower leg. There is no peripherally enhancing fluid collection identified to suggest ab scess. There is a focal area of marrow signal abnormality involving the posterior superior aspect of the calcaneus near the Achilles tendon insertion with prominent T1 hypointense signal extending up to 2.2 cm in greatest dimension and demonstrating postcontrast enhancement, with enhancement seen in th is location of the prior exam, although the T1 hypointense signal is new compared to the prior MRI. T he T1 hypointense marrow signal may be seen with osteomyelitis in the appropriate clinical setting, a lthough no immediately adjacent fluid collection or wound identified. There is mild subcutaneous luis angel a within the soft tissues posterior to the distal Achilles tendon, which is nonspecific, but may be d ue to infection / cellulitis in the appropriate clinical setting. There is moderate to marked thickening of the achilles tendon throughout its distal course with inhom ogeneous signal abnormality in the Achilles tendon, may be sequela of tendinopathy, with progression compared to the prior exam. Partially visualized deformity of the hindfoot with hindfoot valgus malal ignment sequelae of lateral hindfoot impingement with prominent marrow edema and cystic change at the lateral talar facet and adjacent portions of the calcaneal sulcus of the angle of [place]. Moderate to marked arthritic changes of the subtalar joint and talonavicular joint also partially visualized. IMPRESSION: 1. Moderate subcutaneous edema and mild enhancement involving the lower leg, ankle, and hindfoot, may be due to cellulitis in the appropriate clinical setting. Scattered areas of fluid are seen in the r ight lower leg without peripherally enhancing abscess demonstrated. 2. Marrow signal abnormality and enhancement in the posterior superior calcaneus as described above. The T1 hypointense signal seen in this location may be seen with osteomyelitis in the appropriate cli nical setting, although no immediately adjacent wound or fluid collection is demonstrated in this loc ation. There was enhancement in this location on the prior exam from 03/18/2024, although the T1 hypo intense signal in this location is new. If there are clinical signs of infection adjacent to the post erior calcaneus, osteomyelitis can not be excluded. Differential considerations would include reactiv e marrow changes associated with the process in the distal Achilles tendon, although unusual to have T1 hypointense signal associated with reactive marrow changes. Correlation with clinical findings is needed. 3. Achilles tendinopathy and peritendinitis as detailed above. 4. Partially visualized hindfoot valgus malalignment and findings consistent with lateral hindfoot im pingement. 5. Additional findings as detailed above.
[2024-10-09] MEDS: VANCOMYCIN 1.25GM/250ML 250 ML IV SCH (21:13)
[2024-10-10] VITALS (82 sets, daily range): BP systolic 80–164; BP diastolic 35–138; PULSE 88–136; RESP 13–30; TEMP 99–99.6; O2SAT 87–100
[2024-10-10 04:03] LABS: Hemoglobin 8.0 g/dL (13.5-17.5); Nucleated Red Blood Cells % 0.0 %
[2024-10-10 04:07] LABS: Hematocrit 23.2 % (41.0-53.0); Mean Corpuscular Hemoglobin 29.6 pg (28.0-32.0); Mean Corpuscular Volume 86.0 fL (80.0-100.0)
[2024-10-10 04:13] LABS: Chloride 106 mmol/L (98-107); Potassium 3.7 mmol/L (3.5-5.1); Sodium 137 mmol/L (136-145)
[2024-10-10 04:14] LABS: Anion Gap 9 (5-15); Carbon Dioxide 22 mmol/L (20-31)
[2024-10-10 04:16] LABS: Calcium 8.1 mg/dL (8.7-10.4)
[2024-10-10 04:19] LABS: BUN/Creatinine Ratio 25.5 (10.0-20.0); Blood Urea Nitrogen 13 mg/dL (9-23); Glucose 100 mg/dL (74-106)
[2024-10-10 04:20] LABS: Magnesium 1.8 mg/dL (1.6-2.6)
--- NOTE | 2024-10-10 14:59 | DVH ---
CLINICAL HISTORY: History of leg abscesses. TECHNIQUE: Multi sequence multi planar MRI images of the right lower leg were obtained without IV co ntrast. COMPARISON: Correlation made to MRI of the right ankle dated 10/09/2024 right lower extremity CTA exa m dated 09/24/2024.. FINDINGS: Moderate to marked subcutaneous edema throughout the right lower leg and visualized portio ns of the distal aspect of the right thigh and around the knee, may be seen with cellulitis in the ap propriate clinical setting. There is also a small amount of fluid coursing along the fascial planes b etween the soleus and gastrocnemius muscles. Intramuscular edema in the medial and lateral heads of t he gastrocnemius muscle, suspicious for myositis in the setting of overlying soft tissue infection. M ilder intramuscular edema is seen in the distal aspects of the soleus muscle and in the distal tibial is posterior, flexor digitorum longus, and flexor hallucis longus muscles, also likely myositis in th e appropriate clinical setting. There are T2 hyperintense tracts within the tibialis anterior muscle extending from the level of the mid tibial diaphysis distally to the distal myotendinous junction, baig spected pyomyositis, correlating with findings seen on prior CTA exam. The suspected fluid-filled tra cts are within a central area of the tibialis anterior muscle which demonstrates prominent T2 hypoint ense signal measuring up to 1.6 x 1.9 x 12.3 cm, may be partly due to fibrous tissue associated with chronic infection. The more peripheral aspects of the tibialis anterior muscle demonstrate T2 hyperi ntense signal, likely due to myositis. There is also a focal fluid collection within the anterior sub cutaneous tissues at the level of the mid to distal tibial metaphysis, abutting the superficial fasci al plane of the anterior compartment musculature and measuring up to 0.5 cm in AP dimension, 2.9 cm i n transverse dimension, and 2.6 cm in craniocaudal dimension, suspected abscess, appears to communica te with the fluid-filled tracts in the tibialis anterior muscle (series 16 images 3-5). This collecti on extends adjacent to the anterior skin surface and appears to communicate with the skin surface (se nicole 16, image 6). No definite evidence for osteomyelitis in the tibia or fibula. Previously describe d signal abnormality of the posterior superior calcaneus is again noted and appears unchanged. IMPRESSION: 1. Moderate to marked subcutaneous edema throughout the right lower leg, suspected cellulitis in the appropriate clinical setting. 2. Intramuscular edema in multiple muscles in the right lower leg, suspected myositis. 3. Findings consistent with pyomyositis in the tibialis anterior muscle with prominent fluid-filled t racts with surrounding T1 and T2 hypointense tissue, possibly fibrous tissue within the central aspec t of the muscle and peripheral T2 hyperintense muscle due to myositis. 4. Subcutaneous fluid collection anterior to the mid to distal right lower leg consistent with subcut aneous abscess, which communicates with the pyomyositis in the tibialis anterior muscle. The collecti on also appears to communicate with the anterior skin surface. 5. Fluid along the fascial plane between the soleus and gastrocnemius muscles, likely myositis no vis ualized gas to suggest necrotizing fasciitis. 6. No evidence for osteomyelitis visualized in the tibia or fibula. Refer to the recent MRI right ank le report for description of the signal abnormality in the posterior superior calcaneus, which is als o visualized on this exam and appears unchanged.
[2024-10-10] MEDS: NOREPINEPHRINE 8 MG/250ML KIT 250 ML IV SCH (15:45)
[2024-10-10] MEDS: GADOTERATE MEG 10 MMOL/20ml INJ (0.5MMOL/ml) IV ONE (19:32)
--- NOTE | 2024-10-10 20:01 | DVHPN2 ---
Subjective Seen in bed Back to levophed Reviewed: H&P, Labs Changes from previous H/P or p: No Changes Eyes: No Pain, No Vision change, No Conjunctivae inflammation, No Eyelid inflammation, No Other, No Redness ENT: No Ear pain, No Ear discharge, No Nose pain, No Nose discharge, No Nose congestion, No Mouth pain, No Mouth swelling, No Throat pain, No Throat swelling, No Other Cardiovascular: No Chest Pain, No Palpitations, No Orthopnea, No Paroxysmal Noc. Dyspnea, No Edema, No Lt Headedness, No Other Respiratory: No Cough, No Dry, No Shortness of breath, No SOB with excertion, No Wheezing, No Hemoptysis, No Pleuritic Pain, No Sputum, No Other Gastrointestinal: No Nausea, No Vomiting, No Abdominal Pain, No Diarrhea, No Constipation, No Melena, No Hematochezia, No Other Genitourinary: No Dysuria, No Frequency, No Incontinence, No Hematuria, No Retention, No Other Musculoskeletal: No other, No neck pain, No shoulder pain, No arm pain, No back pain, No hand pain, No leg pain, No foot pain Skin: No Rash, No Lesions, No Jaundice, No Bruising, No Other Objective Vitals Vital Signs Date Time Temp Pulse Resp B/P (MAP) Pulse Ox O2 Delivery O2 Flow Rate FiO2 10/10/24 19:00 123 25 99/51 (67) 92 10/10/24 18:12 Nasal Cannula 2.0 10/10/24 18:12 28 10/10/24 16:00 99.1 99.1 Intake/Output Intake and Output 10/10/24 07:00 Intake Total 2026.25 ml Output Total 2420 ml Balance -393.75 ml Intake Oral 1570 ml IV Total 456.25 ml Output Urine Total 2420 ml # Voids 1 # Bowel Movements 1 General Appearance: Alert, Oriented X3 HEENT: Atraumatic Lungs: Clear to auscultation Cardiovascular: Regular rate, Normal S1, Normal S2 Abdomen: Normal bowel sounds Extremities: Other (right leg swelling) Medications Current Medications Medications Dose Ordered Sig/Fabricio Route Start Time Stop Time Status Last Admin Dose Admin Acetaminophen/ Hydrocodone Bitart 1 tab Q4HP PRN PO 10/08/24 08:45 10/09/24 09:06 1 TAB Ondansetron HCl 4 mg Q4HP PRN IV 10/08/24 08:45 Docusate Sodium 100 mg BIDPRN PRN PO 10/08/24 08:45 Acetaminophen 650 mg Q6HP PRN PO 10/08/24 08:45 10/10/24 12:20 650 MG Morphine Sulfate 2 mg Q4HPRN PRN IV 10/08/24 08:45 Nitroglycerin 0.4 mg Q5MINP PRN SL 10/08/24 08:45 Morphine Sulfate 2 mg Q30M PRN IV 10/08/24 08:45 Vancomycin HCl 0 ml @ 0 mls/hr UD IV 10/08/24 08:45 Piperacillin Sod/ Tazobactam Sod 100 ml @ 25 mls/hr Q8HR IV 10/08/24 14:00 10/10/24 14:03 25 MLS/HR Aspirin 81 mg DAILY PO 10/08/24 10:00 10/10/24 09:44 81 MG Midodrine 10 mg TID PO 10/08/24 14:00 10/10/24 14:03 10 MG Patient Own Medication 1 tab DAILY PO 10/08/24 10:00 UNV Patient Own Medication 600 mg BID PO 10/08/24 10:00 UNV Patient Own Medication 3 mg HS PO 10/08/24 22:00 10/08/24 22:00 3 MG Patient Own Medication 1 tab QPM PO 10/08/24 18:00 Patient Own Medication 2 mg BID PO 10/08/24 10:00 UNV Albuterol 2.5 mg Q6HWA [facility] 10/08/24 12:00 10/10/24 18:20 2.5 MG Ipratropium [place] 0.5 mg Q6HWA [facility] 10/08/24 12:00 10/10/24 18:20 0.5 MG Furosemide 20 mg DAILY IV 10/08/24 10:00 10/10/24 09:45 20 MG Atorvastatin Calcium 40 mg HS PO 10/08/24 22:00 10/09/24 21:14 40 MG Gabapentin 600 mg BID PO 10/08/24 10:00 10/10/24 09:44 600 MG Risperidone 2 mg BID PO 10/08/24 10:00 10/10/24 09:44 2 MG Ipratropium [place] 0.5 mg Q6HWA [facility] 10/08/24 18:00 UNV Albuterol 2.5 mg Q6HWA [facility] 10/08/24 18:00 UNV Vancomycin HCl 250 ml @ 200 mls/hr Q12H IV 10/09/24 21:00 10/10/24 09:00 200 MLS/HR Norepinephrine Bitartrate 250 ml @ 3.75 mls/hr Q24H IV 10/10/24 15:45 10/10/24 15:45 11.25 MLS/HR Laboratory Results Laboratory Tests 10/10/24 03:35 Chemistry Test 10/10/24 03:35 Calcium Level 8.1 mg/dL (8.7-10.4) L Magnesium Level 1.8 mg/dL (1.6-2.6) Urinalysis Test 10/08/24 13:31 Urine Color Dark yellow (Yellow) Urine Clarity Clear (Clear) Urine pH 6.0 (5.0-9.0) Urine Specific [place] 1.024 (1.001-1.035) Urine Protein 1+ (Negative) H Urine Ketones Negative (Negative) Urine Blood Negative /uL (Negative) Urine Nitrite Negative (Negative) Urine Bilirubin Negative (Negative) Urine Urobilinogen Normal mg/dL (Negative) Urine Leukocyte Esterase Negative /uL (Negative) Urine RBC 2 /hpf (0 - 3) Urine Microscopic WBC 2 /HPF (0-3) Urine Squamous Epithelial Cells Few /hpf (<5) Urine Bacteria None seen /hpf (None Seen) Urine Mucus Few (None Seen) Urine Glucose Normal mg/dL (Normal) Microbiology Microbiology Date/Time Source Procedure Growth Status 10/09/24 15:48 Leg Right Gram Stain Pending Resulted 10/09/24 15:48 Leg Right Wound Culture - Preliminary Resulted 10/08/24 07:12 Blood Blood Culture - Preliminary NO GROWTH AFTER 48 HOURS OF INCUBATION. Resulted Assessment/Plan Assessment/Plan Cellulitis of right lower extremity, Possible Sepsis, Possible pneumonia, Symptomatic anemia, Thrombocytopenia, Myelodysplastic syndrome, Schizophrenia, Continue IV abx vanco and zosyn MRI with abscess Consult surgery IV lasix continue to be on levophed to keep MAP >60 Plan discussed with: Patient My Orders Orders - JAME HOOPER MD Procedure Category Date Status Time Norepinephrine 8 PHA 10/10/24 In Process Mg/250ml Kit 15:45 Date of Service: Oct 10, 2024 Billing Provider: JAME HOOPER MD Common Visit Codes: [id number] INP/OBS CARE(HIGH) JAME HOOPER MD Oct 10, 2024 20:01
[2024-10-11] VITALS (104 sets, daily range): BP systolic 80–124; BP diastolic 41–74; PULSE 86–129; RESP 0–29; TEMP 98.6–102; O2SAT 89–100
[2024-10-11 04:26] LABS: Hematocrit 20.5 % (41.0-53.0); Mean Corpuscular Hemoglobin 29.6 pg (28.0-32.0); Mean Corpuscular Volume 86.2 fL (80.0-100.0); Nucleated Red Blood Cells % 0.0 %
[2024-10-11 04:30] LABS: Hemoglobin 7.0 g/dL (13.5-17.5)
[2024-10-11 04:41] LABS: Anion Gap 7 (5-15); BUN/Creatinine Ratio 26.4 (10.0-20.0); Blood Urea Nitrogen 14 mg/dL (9-23); Calcium 8.8 mg/dL (8.7-10.4); Carbon Dioxide 24 mmol/L (20-31); Chloride 106 mmol/L (98-107); Glucose 105 mg/dL (74-106); Potassium 3.8 mmol/L (3.5-5.1); Sodium 137 mmol/L (136-145); Total Protein 6.2 g/dL (5.7-8.2)
[2024-10-11 04:42] LABS: Bilirubin, Total 0.6 mg/dL (0.2-1.0)
[2024-10-11 04:44] LABS: Alanine Aminotransferase 435 U/L (7-40); Albumin 2.7 g/dL (3.2-4.8); Alkaline Phosphatase 172 U/L (46-116)
--- NOTE | 2024-10-11 16:20 | DVHPN2 ---
Subjective Seen in bed Back to levophed Reviewed: H&P, Labs Changes from previous H/P or p: No Changes Eyes: No Pain, No Vision change, No Conjunctivae inflammation, No Eyelid inflammation, No Other, No Redness ENT: No Ear pain, No Ear discharge, No Nose pain, No Nose discharge, No Nose congestion, No Mouth pain, No Mouth swelling, No Throat pain, No Throat swelling, No Other Cardiovascular: No Chest Pain, No Palpitations, No Orthopnea, No Paroxysmal Noc. Dyspnea, No Edema, No Lt Headedness, No Other Respiratory: No Cough, No Dry, No Shortness of breath, No SOB with excertion, No Wheezing, No Hemoptysis, No Pleuritic Pain, No Sputum, No Other Gastrointestinal: No Nausea, No Vomiting, No Abdominal Pain, No Diarrhea, No Constipation, No Melena, No Hematochezia, No Other Genitourinary: No Dysuria, No Frequency, No Incontinence, No Hematuria, No Retention, No Other Musculoskeletal: No other, No neck pain, No shoulder pain, No arm pain, No back pain, No hand pain, No leg pain, No foot pain Skin: No Rash, No Lesions, No Jaundice, No Bruising, No Other Objective Vitals Vital Signs Date Time Temp Pulse Resp B/P (MAP) Pulse Ox O2 Delivery O2 Flow Rate FiO2 10/11/24 15:45 102 24 111/54 (73) 94 10/11/24 15:31 Nasal Cannula* 2 28 10/11/24 13:22 100.3 Intake/Output Intake and Output 10/11/24 07:00 Intake Total 1695.00 ml Output Total 840 ml Balance 855.00 ml Intake Oral 960 ml IV Total 735.00 ml Output Urine Total 840 ml # Voids 4 # Bowel Movements 1 General Appearance: Alert, Oriented X3 HEENT: Atraumatic Lungs: Clear to auscultation Cardiovascular: Regular rate, Normal S1, Normal S2 Abdomen: Normal bowel sounds Extremities: Other (right leg swelling) Medications Current Medications Medications Dose Ordered Sig/Fabricio Route Start Time Stop Time Status Last Admin Dose Admin Acetaminophen/ Hydrocodone Bitart 1 tab Q4HP PRN PO 10/08/24 08:45 10/11/24 00:16 1 TAB Ondansetron HCl 4 mg Q4HP PRN IV 10/08/24 08:45 Docusate Sodium 100 mg BIDPRN PRN PO 10/08/24 08:45 Acetaminophen 650 mg Q6HP PRN PO 10/08/24 08:45 10/11/24 12:22 650 MG Morphine Sulfate 2 mg Q4HPRN PRN IV 10/08/24 08:45 Nitroglycerin 0.4 mg Q5MINP PRN SL 10/08/24 08:45 Morphine Sulfate 2 mg Q30M PRN IV 10/08/24 08:45 Vancomycin HCl 0 ml @ 0 mls/hr UD IV 10/08/24 08:45 Piperacillin Sod/ Tazobactam Sod 100 ml @ 25 mls/hr Q8HR IV 10/08/24 14:00 10/11/24 14:51 25 MLS/HR Aspirin 81 mg DAILY PO 10/08/24 10:00 10/11/24 09:42 81 MG Midodrine 10 mg TID PO 10/08/24 14:00 10/11/24 14:51 10 MG Patient Own Medication 1 tab DAILY PO 10/08/24 10:00 UNV Patient Own Medication 600 mg BID PO 10/08/24 10:00 UNV Patient Own Medication 3 mg HS PO 10/08/24 22:00 10/08/24 22:00 3 MG Patient Own Medication 1 tab QPM PO 10/08/24 18:00 Patient Own Medication 2 mg BID PO 10/08/24 10:00 UNV Albuterol 2.5 mg Q6HWA [facility] 10/08/24 12:00 10/11/24 12:07 2.5 MG Ipratropium [place] 0.5 mg Q6HWA [facility] 10/08/24 12:00 10/11/24 12:07 0.5 MG Furosemide 20 mg DAILY IV 10/08/24 10:00 10/11/24 09:52 20 MG Atorvastatin Calcium 40 mg HS PO 10/08/24 22:00 10/10/24 21:56 40 MG Gabapentin 600 mg BID PO 10/08/24 10:00 10/11/24 09:41 600 MG Risperidone 2 mg BID PO 10/08/24 10:00 10/11/24 09:41 2 MG Ipratropium [place] 0.5 mg Q6HWA [facility] 10/08/24 18:00 UNV Albuterol 2.5 mg Q6HWA [facility] 10/08/24 18:00 UNV Vancomycin HCl 250 ml @ 200 mls/hr Q12H IV 10/09/24 21:00 10/11/24 09:41 200 MLS/HR Norepinephrine Bitartrate 250 ml @ 3.75 mls/hr Q24H IV 10/10/24 15:45 10/11/24 05:11 22.5 MLS/HR Laboratory Results Laboratory Tests 10/11/24 03:35 Chemistry Test 10/11/24 03:35 Albumin 2.7 g/dL (3.2-4.8) L Calcium Level 8.8 mg/dL (8.7-10.4) Total Protein 6.2 g/dL (5.7-8.2) LFT Test 10/11/24 03:35 Alanine Aminotransferase (ALT) 435 U/L (7-40) H Alkaline Phosphatase 172 U/L (46-116) H Aspartate Amino Transferase (AST) 296 U/L (13-40) H Total Bilirubin 0.6 mg/dL (0.2-1.0) Urinalysis Test 10/08/24 13:31 Urine Color Dark yellow (Yellow) Urine Clarity Clear (Clear) Urine pH 6.0 (5.0-9.0) Urine Specific [place] 1.024 (1.001-1.035) Urine Protein 1+ (Negative) H Urine Ketones Negative (Negative) Urine Blood Negative /uL (Negative) Urine Nitrite Negative (Negative) Urine Bilirubin Negative (Negative) Urine Urobilinogen Normal mg/dL (Negative) Urine Leukocyte Esterase Negative /uL (Negative) Urine RBC 2 /hpf (0 - 3) Urine Microscopic WBC 2 /HPF (0-3) Urine Squamous Epithelial Cells Few /hpf (<5) Urine Bacteria None seen /hpf (None Seen) Urine Mucus Few (None Seen) Urine Glucose Normal mg/dL (Normal) Microbiology Microbiology Date/Time Source Procedure Growth Status 10/09/24 15:48 Leg Right Gram Stain - Final Resulted 10/09/24 15:48 Leg Right Wound Culture - Preliminary Resulted 10/08/24 07:12 Blood Blood Culture - Preliminary NO GROWTH AFTER 72 HOURS OF INCUBATION. Resulted Assessment/Plan Assessment/Plan Cellulitis of right lower extremity, Possible Sepsis, Possible pneumonia, Symptomatic anemia, Thrombocytopenia, Myelodysplastic syndrome, Schizophrenia, Continue IV abx vanco and zosyn MRI with abscess Consult surgery IV lasix continue to be on levophed to keep MAP >60 Monitor h and h Critical care time 58 minutes Plan discussed with: Patient My Orders Orders - JAME HOOPER MD Procedure Category Date Status Time Stool Occult Blood LAB 10/11/24 In Process 14:57 Date of Service: Oct 11, 2024 Billing Provider: JAME HOOPER MD Common Visit Codes: [id number] CARE 30-74 MIN JAME HOOPER MD Oct 11, 2024 16:20
[2024-10-11] MEDS: ONDANSETRON HCL 4 MG/2 ML VIAL IV PRN (20:53)
[2024-10-11] MEDS: MORPHINE SULFATE INJ 2 MG/ml SYRG IV PRN (20:55)
[2024-10-12] VITALS (98 sets, daily range): BP systolic 81–114; BP diastolic 32–70; PULSE 79–130; RESP 13–28; TEMP 99.5–102.3; O2SAT 85–100
[2024-10-12 10:21] LABS: Hemoglobin 8.2 g/dL (13.5-17.5)
[2024-10-12 10:24] LABS: Chloride 102 mmol/L (98-107); Hematocrit 24.6 % (41.0-53.0); Mean Corpuscular Hemoglobin 29.6 pg (28.0-32.0); Mean Corpuscular Volume 88.8 fL (80.0-100.0); Potassium 3.9 mmol/L (3.5-5.1)
[2024-10-12 10:25] LABS: Anion Gap 9 (5-15); Carbon Dioxide 23 mmol/L (20-31)
[2024-10-12 10:26] LABS: Calcium 9.0 mg/dL (8.7-10.4)
[2024-10-12 10:27] LABS: Sodium 134 mmol/L (136-145)
[2024-10-12 10:30] LABS: BUN/Creatinine Ratio 25.9 (10.0-20.0); Blood Urea Nitrogen 14 mg/dL (9-23)
[2024-10-12 10:32] LABS: Glucose 138 mg/dL (74-106)
[2024-10-12 10:50] LABS: Total Cells Counted 100.0 (100)
[2024-10-12 10:52] LABS: Anisocytosis Slight
--- NOTE | 2024-10-12 13:49 | DVHPN2 ---
Subjective BETTER Reviewed: Care Plan, H&P, Labs, Medications, Previous Orders, Radiology Changes from previous H/P or p: No Changes Objective Vitals Vital Signs Date Time Temp Pulse Resp B/P (MAP) Pulse Ox O2 Delivery O2 Flow Rate FiO2 10/12/24 12:30 99.8 116 18 110/50 (70) 95 99.8 10/12/24 12:00 Nasal Cannula* 2 28 Intake/Output Intake and Output 10/12/24 07:00 Intake Total 2285.00 ml Output Total 1925 ml Balance 360.00 ml Intake Oral 960 ml IV Total 1025.00 ml Blood Product 300 ml Output Urine Total 1925 ml # Bowel Movements 1 General Appearance: Alert, Oriented X3 HEENT: Atraumatic Lungs: Other (Crackles or rhonchi bilateral lungs with decreased air entry) Cardiovascular: Regular rate Abdomen: Normal bowel sounds Extremities: Other (right leg swelling and nonhealing wound above the ankle area in the medial aspect) Medications Current Medications Medications Dose Ordered Sig/Fabricio Route Start Time Stop Time Status Last Admin Dose Admin Acetaminophen/ Hydrocodone Bitart 1 tab Q4HP PRN PO 10/08/24 08:45 10/11/24 00:16 1 TAB Ondansetron HCl 4 mg Q4HP PRN IV 10/08/24 08:45 10/11/24 20:53 4 MG Docusate Sodium 100 mg BIDPRN PRN PO 10/08/24 08:45 Acetaminophen 650 mg Q6HP PRN PO 10/08/24 08:45 10/12/24 04:20 650 MG Morphine Sulfate 2 mg Q4HPRN PRN IV 10/08/24 08:45 10/11/24 20:55 2 MG Nitroglycerin 0.4 mg Q5MINP PRN SL 10/08/24 08:45 Morphine Sulfate 2 mg Q30M PRN IV 10/08/24 08:45 Vancomycin HCl 0 ml @ 0 mls/hr UD IV 10/08/24 08:45 Piperacillin Sod/ Tazobactam Sod 100 ml @ 25 mls/hr Q8HR IV 10/08/24 14:00 10/12/24 06:18 25 MLS/HR Aspirin 81 mg DAILY PO 10/08/24 10:00 10/12/24 10:19 81 MG Midodrine 10 mg TID PO 10/08/24 14:00 10/12/24 06:18 10 MG Patient Own Medication 1 tab DAILY PO 10/08/24 10:00 UNV Patient Own Medication 600 mg BID PO 10/08/24 10:00 UNV Patient Own Medication 3 mg HS PO 10/08/24 22:00 10/08/24 22:00 3 MG Patient Own Medication 1 tab QPM PO 10/08/24 18:00 Patient Own Medication 2 mg BID PO 10/08/24 10:00 UNV Albuterol 2.5 mg Q6HWA [facility] 10/08/24 12:00 10/12/24 07:11 2.5 MG Ipratropium [place] 0.5 mg Q6HWA [facility] 10/08/24 12:00 10/12/24 07:11 0.5 MG Furosemide 20 mg DAILY IV 10/08/24 10:00 10/12/24 10:19 20 MG Atorvastatin Calcium 40 mg HS PO 10/08/24 22:00 10/11/24 22:00 40 MG Gabapentin 600 mg BID PO 10/08/24 10:00 10/12/24 10:19 600 MG Risperidone 2 mg BID PO 10/08/24 10:00 10/12/24 10:19 2 MG Ipratropium [place] 0.5 mg Q6HWA [facility] 10/08/24 18:00 UNV Albuterol 2.5 mg Q6HWA [facility] 10/08/24 18:00 UNV Vancomycin HCl 250 ml @ 200 mls/hr Q12H IV 10/09/24 21:00 10/12/24 10:19 200 MLS/HR Norepinephrine Bitartrate 250 ml @ 3.75 mls/hr Q24H IV 10/10/24 15:45 10/12/24 11:12 18.75 MLS/HR Laboratory Results Laboratory Tests 10/12/24 10:04 Chemistry Test 10/12/24 10:04 Calcium Level 9.0 mg/dL (8.7-10.4) Urinalysis Test 10/08/24 13:31 Urine Color Dark yellow (Yellow) Urine Clarity Clear (Clear) Urine pH 6.0 (5.0-9.0) Urine Specific [place] 1.024 (1.001-1.035) Urine Protein 1+ (Negative) H Urine Ketones Negative (Negative) Urine Blood Negative /uL (Negative) Urine Nitrite Negative (Negative) Urine Bilirubin Negative (Negative) Urine Urobilinogen Normal mg/dL (Negative) Urine Leukocyte Esterase Negative /uL (Negative) Urine RBC 2 /hpf (0 - 3) Urine Microscopic WBC 2 /HPF (0-3) Urine Squamous Epithelial Cells Few /hpf (<5) Urine Bacteria None seen /hpf (None Seen) Urine Mucus Few (None Seen) Urine Glucose Normal mg/dL (Normal) Microbiology Microbiology Date/Time Source Procedure Growth Status 10/09/24 15:48 Leg Right Gram Stain - Final Resulted 10/09/24 15:48 Leg Right Wound Culture - Preliminary Resulted 10/08/24 07:12 Blood Blood Culture - Preliminary NO GROWTH AFTER 72 HOURS OF INCUBATION. 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 Podiatry consult. MRI of the foot and ankle. Chest CT. Monitor blood pressure. Monitor oxygenation. Further plan per orders. Total critical care time 45 minutes Plan discussed with: Patient, Other (Nursing) My Orders Orders - NORRIS PERKINS MD Procedure Category Date Status Time *Podiatry Consult CONS 10/12/24 Transmitted Ray(Dv) 12:26 Erythrocyte LAB 10/12/24 In Process Sedimentation Rate 12:27 Date of Service: Oct 12, 2024 Billing Provider: NORRIS PERKINS MD Common Visit Codes: [id number] CARE 30-74 MIN NORRIS PERKINS MD Oct 12, 2024 13:49
--- NOTE | 2024-10-12 15:49 | DVH ---
AP portable chest CLINICAL INDICATION: SUSTAINED DESATURATION/ INCREASING 02 DEMANDS Comparison: 10/08/2024 FINDINGS: Heart size is enlarged in the aorta is tortuous. There is a central line with its tip in t he low superior vena cava. Focal consolidation or mass in the left lower lobe. There is infiltrate in the right lower lung zone. Mass versus rounded consolidation right upper lobe. IMPRESSION: 1. Compared to previous exam increasing infiltrate or congestive change in the right lower lung zone. 2. There are rounded consolidations or mass lesions in the left lower lobe and in the right upper lob e. Recommend CT chest
[2024-10-12] MEDS: IOHEXOL 300 MG/ML 100ML BOTTLE IJ ONE (20:32)
[2024-10-13] VITALS (104 sets, daily range): BP systolic 83–122; BP diastolic 33–68; PULSE 80–138; RESP 6–29; TEMP 99.1–100.6; O2SAT 88–100
[2024-10-13 04:56] LABS: Hematocrit 19.6 % (41.0-53.0); Mean Corpuscular Hemoglobin 29.4 pg (28.0-32.0); Mean Corpuscular Volume 86.4 fL (80.0-100.0)
[2024-10-13 05:06] LABS: Hemoglobin 6.7 g/dL (13.5-17.5)
--- NOTE | 2024-10-13 05:07 | DVH ---
Exam: CT CHEST WITH CONTRAST History: LUNG MASS Comparison Study: Chest x-ray 10/12/2024, report of CT chest 09/14/2024 without images available. TECHNIQUE: Multidetector CT of the chest was performed from lung bases to pubic symphysis. Imaging wa s performed with 100 cc of Omnipaque 300 IV contrast. Axial, coronal and sagittal multiplanar reforma ts were obtained from the axial data set by the technologist. Radiation optimization: All CT scans at this facility use at least one of these dose optimization wedny hniques: automated exposure control mA and/or kV adjustment per patient size (includes targeted exam s where dose is matched to clinical indication) or iterative reconstruction. Radiation Dose Information: CT Dose: Dose-length product is 1587.2 mGy*cm FINDINGS: Airway is patent. Thyroid gland is unremarkable. The heart appears stable and relatively normal in s ize. There is a moderate pericardial effusion. There are coronary artery calcifications. Right upper lobe mass measures 5.4 x 5.0 cm 2 masses in the left upper lobe measure 3.4 x 3.3 cm and 3.1 x 2.6 cm. Right lower lobe mass measures 2.7 x 2.3 cm and additional pleural based medial apical mass measures 2.0 x 1.5 cm. Bibasilar consolidation is present with possible more masslike area in th e left lower lobe measuring 4.8 x 4.7 cm. There are air bronchograms within these masses, irregular margins, and some surrounding ground-glass opacities. There are areas of subpleural pulmonary fibrosi s in the upper lobes. There are prominent mediastinal lymph nodes measuring up to 1.3 cm in short axi s No discrete pleural effusion. Visualized portions of the upper abdomen demonstrate 0.6 cm cyst in the right hepatic lobe. Spleen ap pears prominent size. No suspicious osseous lesion. Chronic mild compression of T8 and T11. IMPRESSION: 1. Multiple masses with irregular margins and air bronchograms, likely increased in size given previo us description on CT chest Differential considerations remain similar, however tissue sampli ng is warranted to assess for possible malignancy. Bibasilar consolidation. 2. Mediastinal adenopathy 3. Moderate pericardial effusion
[2024-10-13 05:13] LABS: Anion Gap 6 (5-15); BUN/Creatinine Ratio 31.9 (10.0-20.0); Blood Urea Nitrogen 15 mg/dL (9-23); Calcium 8.8 mg/dL (8.7-10.4); Carbon Dioxide 26 mmol/L (20-31); Chloride 103 mmol/L (98-107); Glucose 101 mg/dL (74-106); Potassium 4.0 mmol/L (3.5-5.1); Total Protein 6.2 g/dL (5.7-8.2)
[2024-10-13 05:14] LABS: Bilirubin, Total 0.7 mg/dL (0.2-1.0)
[2024-10-13 05:17] LABS: Alanine Aminotransferase 573 U/L (7-40); Albumin 2.6 g/dL (3.2-4.8); Alkaline Phosphatase 234 U/L (46-116); Sodium 135 mmol/L (136-145)
[2024-10-13 05:26] LABS: Total Cells Counted 100.0 (100)
[2024-10-13 07:38] LABS: Hematocrit 20.0 % (41.0-53.0)
[2024-10-13 07:41] LABS: Hemoglobin 6.9 g/dL (13.5-17.5)
--- NOTE | 2024-10-13 09:05 | DVH ---
INDICATION: hi lft TECHNIQUE: Multiple real-time sonographic images were obtained of the right upper quadrant. COMPARISON: None FINDINGS: The liver demonstrates homogeneous echotexture without focal mass lesions. The liver measu res 16.9 cm. There is no intrahepatic or extrahepatic ductal dilatation. The common duct measures 0.4 cm. Cholelithiasis. The gallbladder wall measures 0.2 cm and is within normal limits. The right kidney measures 10.1 cm. The right kidney is normal in contour, size, and shape. The echoge nicity is normal. There is no hydronephrosis. The pancreas is not well visualized due to overlying bowel gas. IMPRESSION: Hepatomegaly. Cholelithiasis.
[2024-10-13] MEDS: PANTOPRAZOLE 40 MG/10 ML VIAL INJ IV SCH (10:26)
--- NOTE | 2024-10-13 10:56 | DVHPN2 ---
Subjective BETTER Reviewed: Care Plan, H&P, Labs, Medications, Previous Orders, Radiology Changes from previous H/P or p: No Changes Objective Vitals Vital Signs Date Time Temp Pulse Resp B/P (MAP) Pulse Ox O2 Delivery O2 Flow Rate FiO2 10/13/24 10:27 97/51 10/13/24 10:16 99.1 118 20 99.1 10/13/24 09:15 94 10/13/24 07:18 Nasal Cannula* 4 36 Intake/Output Intake and Output 10/13/24 07:00 Intake Total 1917.50 ml Output Total 1650 ml Balance 267.50 ml Intake Oral 500 ml IV Total 1417.50 ml Output Urine Total 1650 ml # Voids 7 General Appearance: Alert, Oriented X3 HEENT: Atraumatic Lungs: Other (Crackles and rhonchi bilateral lungs and decreased air entry) Cardiovascular: Regular rate Abdomen: Normal bowel sounds Extremities: Other (right leg swelling and nonhealing wound above the ankle area in the medial aspect) Medications Current Medications Medications Dose Ordered Sig/Fabricio Route Start Time Stop Time Status Last Admin Dose Admin Ondansetron HCl 4 mg Q4HP PRN IV 10/08/24 08:45 10/11/24 20:53 4 MG Docusate Sodium 100 mg BIDPRN PRN PO 10/08/24 08:45 Morphine Sulfate 2 mg Q4HPRN PRN IV 10/08/24 08:45 Hold 10/13/24 01:01 2 MG Nitroglycerin 0.4 mg Q5MINP PRN SL 10/08/24 08:45 Morphine Sulfate 2 mg Q30M PRN IV 10/08/24 08:45 Vancomycin HCl 0 ml @ 0 mls/hr UD IV 10/08/24 08:45 Piperacillin Sod/ Tazobactam Sod 100 ml @ 25 mls/hr Q8HR IV 10/08/24 14:00 10/13/24 05:39 25 MLS/HR Midodrine 10 mg TID PO 10/08/24 14:00 10/13/24 07:47 10 MG Patient Own Medication 1 tab DAILY PO 10/08/24 10:00 UNV Patient Own Medication 600 mg BID PO 10/08/24 10:00 UNV Patient Own Medication 3 mg HS PO 10/08/24 22:00 10/08/24 22:00 3 MG Patient Own Medication 1 tab QPM PO 10/08/24 18:00 10/12/24 18:56 1 TAB Patient Own Medication 2 mg BID PO 10/08/24 10:00 UNV Albuterol 2.5 mg Q6HWA [facility] 10/08/24 12:00 10/13/24 07:18 2.5 MG Ipratropium [place] 0.5 mg Q6HWA [facility] 10/08/24 12:00 10/13/24 07:18 0.5 MG Furosemide 20 mg DAILY IV 10/08/24 10:00 10/13/24 10:27 20 MG Gabapentin 600 mg BID PO 10/08/24 10:00 10/13/24 10:27 600 MG Risperidone 2 mg BID PO 10/08/24 10:00 10/13/24 10:27 2 MG Ipratropium [place] 0.5 mg Q6HWA [facility] 10/08/24 18:00 UNV Albuterol 2.5 mg Q6HWA [facility] 10/08/24 18:00 UNV Vancomycin HCl 250 ml @ 200 mls/hr Q12H IV 10/09/24 21:00 10/13/24 10:26 200 MLS/HR Norepinephrine Bitartrate 250 ml @ 3.75 mls/hr Q24H IV 10/10/24 15:45 10/13/24 07:46 11.25 MLS/HR Pantoprazole Sodium 40 mg BID IV 10/13/24 10:00 10/13/24 10:26 40 MG Oxycodone HCl 5 mg Q6HP PRN PO 10/13/24 06:30 Oxycodone HCl 10 mg Q4HP PRN PO 10/13/24 06:30 Laboratory Results Laboratory Tests 10/13/24 04:35 10/13/24 07:18 Chemistry Test 10/13/24 04:35 Albumin 2.6 g/dL (3.2-4.8) L Calcium Level 8.8 mg/dL (8.7-10.4) Total Protein 6.2 g/dL (5.7-8.2) LFT Test 10/13/24 04:35 Alanine Aminotransferase (ALT) 573 U/L (7-40) H Alkaline Phosphatase 234 U/L (46-116) H Aspartate Amino Transferase (AST) 346 U/L (13-40) H Total Bilirubin 0.7 mg/dL (0.2-1.0) Urinalysis Test 10/08/24 13:31 Urine Color Dark yellow (Yellow) Urine Clarity Clear (Clear) Urine pH 6.0 (5.0-9.0) Urine Specific Ama 1.024 (1.001-1.035) Urine Protein 1+ (Negative) H Urine Ketones Negative (Negative) Urine Blood Negative /uL (Negative) Urine Nitrite Negative (Negative) Urine Bilirubin Negative (Negative) Urine Urobilinogen Normal mg/dL (Negative) Urine Leukocyte Esterase Negative /uL (Negative) Urine RBC 2 /hpf (0 - 3) Urine Microscopic WBC 2 /HPF (0-3) Urine Squamous Epithelial Cells Few /hpf (<5) Urine Bacteria None seen /hpf (None Seen) Urine Mucus Few (None Seen) Urine Glucose Normal mg/dL (Normal) Microbiology Microbiology Date/Time Source Procedure Growth Status 10/09/24 15:48 Leg Right Gram Stain - Final Resulted 10/09/24 15:48 Leg Right Wound Culture - Preliminary Resulted 10/08/24 07:12 Blood Blood Culture - Final NO GROWTH AFTER 5 DAYS OF INCUBATION. Complete Assessment/Plan Assessment/Plan Right lower extremity cellulitis Sepsis Pneumonia 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 Myelodysplastic syndrome/anemia and thrombocytopenia Elevated liver function tests Protein deficient malnutrition/moderate Schizophrenia Hepatomegaly and cholelithiasis Plan: We will obtain radiology consultation for lung biopsy. We will hold acetaminophen and atorvastatin. Repeat liver function tests. Blood transfusion x1 unit. Echocardiogram. Further plan per orders. Total critical care time 50 minutes Plan discussed with: Patient, Other (Nursing) My Orders Orders - NORRIS PERKINS MD Procedure Category Date Status Time *Podiatry Consult CONS 10/12/24 Transmitted [facility]([facility]) 12:26 Chest Portable XY 10/12/24 Resulted 15:[address] 10/12/24 Resulted 19:24 * Radiologist Consult CONS 10/13/24 Transmitted 06:21 Type And Screen BBK 10/13/24 In Process 06:21 Hemoglobin & LAB 10/13/24 Logged Hematocrit 12:21 Hemoglobin & LAB 10/13/24 Logged Hematocrit 18:21 Pantoprazole PHA 10/13/24 In Process (Protonix) 10:00 LIVER US 10/13/24 Resulted 06:26 Oxycodone Immediate PHA 10/13/24 In Process Rel Tablet 06:30 Oxycodone Immediate PHA 10/13/24 In Process Rel Tablet 06:30 Complete Blood Count LAB 10/14/24 Verified 06:00 Comprehensive LAB 10/14/24 Verified Metabolic Panel 06:00 Echo 2d Mode Cardiac US 10/13/24 Logged DOP 09:30 Erythrocyte LAB 10/14/24 Verified Sedimentation Rate 04:00 Date of Service: Oct 13, 2024 Billing Provider: NORRIS PERKINS MD Common Visit Codes: 80090-KRPGZRPM CARE 30-74 MIN NORRIS PERKINS MD Oct 13, 2024 10:56
[2024-10-13 14:39] LABS: Hemoglobin 7.7 g/dL (13.5-17.5)
[2024-10-13 14:41] LABS: Hematocrit 22.4 % (41.0-53.0)
--- NOTE | 2024-10-13 17:15 | DVHSR ---
APPROVED REPORT EXAM: LIMITED Two-dimensional and M-mode echocardiogram with Doppler and color Doppler. Blood Pressure: 101/55 mmHg INDICATION Pericardial Effusion RISK FACTORS Height: 5' 11", Weight: 158 DIMENSIONS LVDd5.4 (3.8-5.7cm)LA (2D)4.2 (1.9-4.0cm)Aortic Root4.0 (2.0-3.7cm) LVDs4.0 (2.5-4.0cm)LA (MM) (1.9-4.0cm)Aortic Cusp Exc2.0 (1.5-2.0cm) EF (%) 50.0 (55-70%)Rt. Atrium3.4 (1.9-4.0cm)Asc. Aorta cm IVSd1.0 (0.7-1.1cm)RV (D) (1.8-2.4cm) PWd1.0 (0.7-1.1cm) Mitral Valve MitralMitral Stenosis E wave1.00m/sMV Mean GR.mmHg A wave1.10m/sMV Peak GR.mmHg E/A ratio0.92D MVAcm2 Aortic Valve Aortic ValveAortic Stenosis V11.40m/Surjit Mean GR.6mmHg V21.60m/Surjit Peak GR.11mmHg LVOT Diameter2.5 (1.8-2.4cm)Doppler AVA4.29cm2 Other Information Quality : Technically LimitedRhythm : Technically limited study due to body habitus, and patient position, patient sitting up due to SOB. Conclusion Technically difficult study. Off axis views. Left atrial enlargement. Aortic root enlargement. Mild aortic sclerosis. No significant stenosis. Left ventricular function is preserved. EF is 60% with normal RV function. Dopplers unremarkable. No pericardial effusion masses or vegetations.
[2024-10-13] MEDS: VANCOMYCIN 1.5GM/300ML 300 ML IV SCH (20:00)
[2024-10-14] VITALS (105 sets, daily range): BP systolic 78–122; BP diastolic 40–70; PULSE 11–133; RESP 13–33; TEMP 98.1–100.7; O2SAT 82–100
[2024-10-14 03:52] LABS: Hemoglobin 8.0 g/dL (13.5-17.5); Mean Corpuscular Volume 85.4 fL (80.0-100.0)
[2024-10-14 03:59] LABS: Hematocrit 22.7 % (41.0-53.0); Mean Corpuscular Hemoglobin 29.9 pg (28.0-32.0); Nucleated Red Blood Cells % 0.1 %
[2024-10-14 04:20] LABS: BUN/Creatinine Ratio 34.8 (10.0-20.0); Bilirubin, Total 1.0 mg/dL (0.2-1.0); Blood Urea Nitrogen 16 mg/dL (9-23); Chloride 102 mmol/L (98-107); Potassium 3.7 mmol/L (3.5-5.1); Total Protein 6.6 g/dL (5.7-8.2)
[2024-10-14 04:37] LABS: Alanine Aminotransferase 501 U/L (7-40); Albumin 2.7 g/dL (3.2-4.8); Alkaline Phosphatase 224 U/L (46-116); Calcium 8.3 mg/dL (8.7-10.4); Glucose 107 mg/dL (74-106); Sodium 133 mmol/L (136-145)
[2024-10-14 04:45] LABS: Anion Gap 7 (5-15); Carbon Dioxide 24 mmol/L (20-31)
[2024-10-14] MEDS: NOREPINEPHRINE 8 MG/250ML KIT 250 ML IV SCH (08:57)
--- NOTE | 2024-10-14 14:23 | DVHPNRES ---
Progress Note Date Seen: Oct 14, 2024 Resident Creating Document: HOMAR FOSTER RESIDENT Medical Necessity Reason Pt with a Central, PICC or Fol: Yes The following are medically ne: Central Line (Right IJ TLC four IV vasopressors) Subjective Review of Systems HPI (as per hospitalist) A 69-year-old male patient with past medical history of COPD, hyperlipidemia, schizophrenia, prostate cancer status post radiation therapy, moderate dysplastic syndrome, stroke, BPH status post TURP, pancytopenia due to MDS presented with complaints of dizziness, fatigue, generalized weakness and leg swelling. Patient has been admitted multiple times to [facility] for dizziness due to symptomatic anemia for which she gets blood transfusion. Has been losing weight and appetite. Patient was recently in [facility] for management of cellulitis for which she was discharged with oral antibiotics.Last admission, earlier this month, the patient was transferred to [place] for higher level of care due to chronic right leg cellulitis. He was transferred for possible surgical intervention after a CT of right leg with contrast showed possible necrotizing fasciitis. Patient's right leg continues to have worsening edema and now multiple draining wounds. Medical history COPD, hyperlipidemia, schizophrenia, prostate cancer status post radiation therapy, moderate dysplastic syndrome, stroke, BPH status post TURP, pancytopenia due to MDS Surgical history Tonsillectomy, right CE and graft, multiple I and D's for I and D Medication history Aspirin, albuterol, statin, Lasix, gabapentin, midodrine, mirtazapine, risperidone, trilogy, melatonin Social history Smoker, no history of alcohol, marijuana or any other drug intake Lives with caregiver 10/14/2024 Patient is currently alert and oriented x3 but drowsy and does not respond to the questions; poor historian. Lives with caregiver, mentions pain and swelling in the right leg Currently on norepinephrine @ 6 cc/hour Objective vital signs Vital Sign Date Time Temp Pulse Resp B/P (MAP) Pulse Ox O2 Delivery O2 Flow Rate FiO2 10/14/24 13:02 107 18 100 10/14/24 12:55 Nasal Cannula 4.0 10/14/24 12:55 36 10/14/24 11:38 87/46 10/14/24 08:00 98.1 98.1 Total Intake and Output 10/13/24 10/13/24 10/14/24 15:00 23:00 07:00 Intake Total 732.50 ml 1760.0 ml 127.5 ml Output Total 200 ml 800 ml Balance 532.50 ml 960.0 ml 127.5 ml medications Current Medications Medications Dose Ordered Sig/Fabriico Route Start Time Stop Time Status Last Admin Dose Admin Ondansetron HCl 4 mg Q4HP PRN IV 10/08/24 08:45 10/11/24 20:53 4 MG Docusate Sodium 100 mg BIDPRN PRN PO 10/08/24 08:45 Morphine Sulfate 2 mg Q4HPRN PRN IV 10/08/24 08:45 Hold 10/13/24 01:01 2 MG Nitroglycerin 0.4 mg Q5MINP PRN SL 10/08/24 08:45 Morphine Sulfate 2 mg Q30M PRN IV 10/08/24 08:45 Vancomycin HCl 0 ml @ 0 mls/hr UD IV 10/08/24 08:45 Piperacillin Sod/ Tazobactam Sod 100 ml @ 25 mls/hr Q8HR IV 10/08/24 14:00 10/14/24 06:41 25 MLS/HR Midodrine 10 mg TID PO 10/08/24 14:00 10/14/24 06:41 10 MG Patient Own Medication 1 tab DAILY PO 10/08/24 10:00 UNV Patient Own Medication 600 mg BID PO 10/08/24 10:00 UNV Patient Own Medication 3 mg HS PO 10/08/24 22:00 10/08/24 22:00 3 MG Patient Own Medication 1 tab QPM PO 10/08/24 18:00 10/13/24 18:04 1 TAB Patient Own Medication 2 mg BID PO 10/08/24 10:00 UNV Albuterol 2.5 mg Q6HWA [facility] 10/08/24 12:00 10/14/24 12:53 2.5 MG Ipratropium [place] 0.5 mg Q6HWA [facility] 10/08/24 12:00 10/14/24 12:53 0.5 MG Furosemide 20 mg DAILY IV 10/08/24 10:00 10/14/24 10:11 20 MG Gabapentin 600 mg BID PO 10/08/24 10:00 10/14/24 10:11 600 MG Risperidone 2 mg BID PO 10/08/24 10:00 10/14/24 10:11 2 MG Ipratropium [place] 0.5 mg Q6HWA [facility] 10/08/24 18:00 UNV Albuterol 2.5 mg Q6HWA [facility] 10/08/24 18:00 UNV Norepinephrine Bitartrate 250 ml @ 3.75 mls/hr Q24H IV 10/10/24 15:45 10/14/24 11:38 15 MLS/HR Pantoprazole Sodium 40 mg BID IV 10/13/24 10:00 10/14/24 10:11 40 MG Oxycodone HCl 5 mg Q6HP PRN PO 10/13/24 06:30 Oxycodone HCl 10 mg Q4HP PRN PO 10/13/24 06:30 Vancomycin HCl 300 ml @ 200 mls/hr Q12H IV 10/13/24 20:00 10/14/24 07:46 200 MLS/HR Examination Examination General Appearance: Pale and drowsy HEENT: EOMI Respiratory: Clear to auscultation, Normal air movement Cardiovascular: Regular rate, Normal S1, Normal S2 Abdominal: Normal bowel sounds Extremities: Right leg swelling and tenderness Skin: No rashes, No breakdown Neuro: Normal speech, tone, drowsy laboratory and microbiology Laboratory Tests 10/14/24 03:24 Test 10/14/24 03:24 Range/Units Serum Glucose 107 H 74-106 mg/dL Microbiology Date/Time Source Procedure Growth Status 10/09/24 15:48 Leg Right Gram Stain - Final Complete 10/09/24 15:48 Leg Right Wound Culture - Final Complete 10/08/24 07:12 Blood Blood Culture - Final NO GROWTH AFTER 5 DAYS OF INCUBATION. Complete Labs and/or images reviewed: Labs reviewed by me, Image(s) reviewed by me Problem List/Assessment/Plan Problem List/Assessment/Plan Assessment/plan Neurology # Dizziness likely due to hypotension and symptomatic anemia -improved Currently on norepinephrine Cardiology # Shock due to septic shock; details as below -currently on norepinephrine at 6 cc/hr -we will discontinue Lasix -on midodrine keep MAP target of 60 # Moderate pericardial effusion Seen on CT Possibly due to malignancy Echocardiogram # Hyperlipidemia -avoid statins elevated LFTs Respiratory # Acute hypoxic respiratory failure likely due to possible pneumonia/lung masses Currently on 4 L Nebulization with ipratropium and albuterol #? Possible obstructive pneumonia in the setting of lung nodules CT chest shows-1. Multiple masses with irregular margins and air bronchograms, likely increased in size given previous description on CT chest Differential considerations remain similar, however tissue sampling is warranted to assess for possible malignancy. Bibasilar consolidation. -2. Mediastinal adenopathy -3. Moderate pericardial effusion Sputum culture Currently on vancomycin and Zosyn # Possible lung malignancy, primary or secondary -as per CT scan CT chest shows-1. Multiple masses with irregular margins and air bronchograms, likely increased in size given previous description on CT chest Differential considerations remain similar, however tissue sampling is warranted to assess for possible malignancy. Bibasilar consolidation. -2. Mediastinal adenopathy -3. Moderate pericardial effusion Patient was scheduled to have lung biopsy, as per IR platelet count need to be greater than 50 for lung biopsy # Mediastinal lymphadenopathy -likely due to pneumonia/lung masses # COPD, stable Nebulization with ipratropium and albuterol PRN Hematology/Oncology # Myelodysplastic syndrome -patient follows up with C history of pancytopenia # Anemia due to MDS s/p transfusion Transfusion to keep hemoglobin greater than seven # Thrombocytopenia due to MDS -platelet count [id number]; no signs/symptoms of active bleeding # Protein deficient malnutrition/moderate -low albumin GI # Transaminitis likely due to sepsis Hepatomegaly and cholelithiasis seen on ultrasound Infectious Disease # Sepsis with septic shock due to right lower leg cellulitis and pyomyositis -currently on vancomycin and Zosyn -ID on board -Wound culture -Blood culture -Lactic acid improved MSK # Cellulitis with pyomyositis of left lower leg # Achilles tendinopathy and peritendinitis # lateral hindfoot impingement # 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 MRI left left and foot IV antibiotics Podiatry and surgery consulted Psychiatry # Schizophrenia Currently on risperidone Urology # History of prostate cancer status post radiation therapy # BPH status post TURP Diet Regular diet Lines Right IJ CVC 10/08/24 Bowel Regimen Colace Code status Goals of care discussed with the patient for 20 minutes; full code Family at bedside explained about the condition of the patient 120 minutes of critical care time excluding procedures time Case discussion with Dr. Scales Plan discussed with: Patient, Other (Nurse) Dietary Evaluation Review Recommendations by RD: Increase Calorie Intake Comments: Pt meets criteria for Moderate Protein-Calorie Malnutrition in the setting of chronic illness based on wt loss 6.3kg/8.0% in 6 month and mild fluid accumulation to right LE. Nutrition Recommendation 1) Ensure Enlive 240ml TID 2) Monitor wt trend, I/O, lab values, PO intake Expected Outcomes/Goals: To gain/maintain wt Intake to meet at least 75% estimated needs FU 3-5 days Interpretation of weight loss: up to 10% in 6 months Fluid Accumulation (Non Severe: Mild fluid retention Protein Calorie Malnutrition: Non-Severe Is there a minimum of two crit: Yes Critical Care Time (mins): 120 (Excluding procedures time) CC Plasma Assessment Blood Product Administration S: 0005 Addendum Addendum Addendum I was physically present for the goldstein portions of the service provided to patient by THE RESIDENT. I have reviewed the documentation, discussed the case with resident and agree with the resident's documentation except as noted. Also the patient's clinical case was discussed with the patient's nurse. This medical document was created using an electronic medical record system with computerized dictation system. Although this document has been carefully reviewed, there might still be some phonetic and typographical errors. These areas are purely typographical due to imperfections of the software programs, and do not reflect any compromise in the patient's medical care. Late signature. Date of Service: Oct 14, 2024 Billing Provider: ALLAN SCALES MD Common Visit Codes: 40975-WGVACLCI CARE 30-74 MIN (120 minutes), 23163-[id number] CARE-EACH +30MIN Secondary Visit Codes: 16325-[id number] CARE PLAN 30 MINUTES (20 minutes) HOMAR FOSTER RESIDENT Oct 14, 2024 14:23 ALLAN SCALES MD Oct 15, 2024 06:14
[2024-10-15] VITALS (102 sets, daily range): BP systolic 78–127; BP diastolic 37–66; PULSE 91–130; RESP 17–28; TEMP 98.4–100.5; O2SAT 93–100
[2024-10-15 03:50] LABS: Nucleated Red Blood Cells % 0.1 %
[2024-10-15 03:56] LABS: Hematocrit 19.8 % (41.0-53.0); Mean Corpuscular Hemoglobin 29.7 pg (28.0-32.0); Mean Corpuscular Volume 85.8 fL (80.0-100.0)
[2024-10-15 04:00] LABS: Hemoglobin 6.9 g/dL (13.5-17.5)
[2024-10-15 04:02] LABS: Anion Gap 6 (5-15); BUN/Creatinine Ratio 35.4 (10.0-20.0); Blood Urea Nitrogen 17 mg/dL (9-23); Carbon Dioxide 25 mmol/L (20-31); Chloride 104 mmol/L (98-107); Magnesium 2.0 mg/dL (1.6-2.6); Potassium 4.0 mmol/L (3.5-5.1); Total Protein 6.0 g/dL (5.7-8.2)
[2024-10-15 04:03] LABS: Bilirubin, Total 0.5 mg/dL (0.2-1.0)
[2024-10-15 04:19] LABS: Alanine Aminotransferase 458 U/L (7-40); Albumin 2.5 g/dL (3.2-4.8); Alkaline Phosphatase 224 U/L (46-116); Calcium 8.2 mg/dL (8.7-10.4); Glucose 108 mg/dL (74-106); Sodium 135 mmol/L (136-145)
--- NOTE | 2024-10-15 06:20 | DVHPN2 ---
Consult Progress Note Date Seen: Oct 10, 2024 Subjective Patient reports: Other (remains on 6 month of levofed , clear lungs and on room air . hemoglobin is intermittently drops and requiring blood transfusions regularly ) Objective vital signs Vital Sign Date Time Temp Pulse Resp B/P (MAP) Pulse Ox O2 Delivery O2 Flow Rate FiO2 10/15/24 05:52 99.1 116 20 101/60 99.1 10/15/24 04:30 97 10/15/24 04:00 Nasal Cannula* 4 36 Total Intake and Output 10/14/24 10/14/24 10/15/24 15:00 23:00 07:00 Intake Total 445.00 ml 954.876 ml 236.877 ml Balance 445.00 ml 954.876 ml 236.877 ml medications Current Medications Medications Dose Ordered Sig/Fabricio Route Start Time Stop Time Status Last Admin Dose Admin Ondansetron HCl 4 mg Q4HP PRN IV 10/08/24 08:45 10/11/24 20:53 4 MG Docusate Sodium 100 mg BIDPRN PRN PO 10/08/24 08:45 Vancomycin HCl 0 ml @ 0 mls/hr UD IV 10/08/24 08:45 Piperacillin Sod/ Tazobactam Sod 100 ml @ 25 mls/hr Q8HR IV 10/08/24 14:00 10/15/24 06:07 25 MLS/HR Midodrine 10 mg TID PO 10/08/24 14:00 10/15/24 06:07 10 MG Patient Own Medication 1 tab DAILY PO 10/08/24 10:00 UNV Patient Own Medication 600 mg BID PO 10/08/24 10:00 UNV Patient Own Medication 2 mg BID PO 10/08/24 10:00 UNV Albuterol 2.5 mg Q6HWA NEB 10/08/24 12:00 10/14/24 18:41 2.5 MG Ipratropium [place] 0.5 mg Q6HWA NEB 10/08/24 12:00 10/14/24 18:41 0.5 MG Risperidone 2 mg BID PO 10/08/24 10:00 10/14/24 22:29 2 MG Ipratropium [place] 0.5 mg Q6HWA NEB 10/08/24 18:00 UNV Albuterol 2.5 mg Q6HWA NEB 10/08/24 18:00 UNV Vancomycin HCl 300 ml @ 200 mls/hr Q12H IV 10/13/24 20:00 10/14/24 20:27 200 MLS/HR Norepinephrine Bitartrate 250 ml @ 3.75 mls/hr Q24H IV 10/14/24 19:30 Physical Exam: General: NAD Neck: Supple. No masses. HEENT: PERRL. Normal lids and conjunctiva. Moist mucous membranes. Oropharynx without lesions, exudates or excessive erythema. Normal appearance of the external aspects of the nose and ears. Heart: Regular rhythm, normal rate. No murmur. No lower extremity edema (replace with: profound right lower extremity 4+ edema). Lungs: Normal respiratory effort. Clear to auscultation bilaterally. No wheezes. No crackles. Abdomen: Soft. Non-tender. Non-distended. No masses or abdominal hernia. Msk: Right leg: profound, non-tender 4+ pitting edema; purulent ulcer on inferior villarreal and posterior ankle. No digital cyanosis. Normal strength and tone in all other limbs. Skin: Warm and dry except right leg; draining purulent ulcers inferior villarreal and posterior ankle. Neuro: Alert. No facial droop or slurred speech. Extra-ocular movements intact. Sensation intact to soft touch in all 4 limbs. Psych: Flat affect. Oriented to person, place, time, and situation. laboratory and microbiology Laboratory Tests 10/15/24 02:56 Test 10/15/24 02:56 Range/Units Serum Glucose 108 H 74-106 mg/dL Problem List/Assessment/Plan Problems(with codes): (1) Severe anemia (2) Swelling of right lower extremity (3) Sepsis, unspecified organism (4) Cellulitis of right lower extremity (5) Near syncope Problem List/Assessment/Plan ASSESSMENT AND PLAN: ID Problem List: \-- Chronic myelodysplastic syndrome with recurrent anemia \-- Prostate cancer \-- COPD (post-resection) \-- Chronic hypertension \-- Schizophrenia \-- Chronic right lower extremity edema, recurrent cellulitis, draining ulcer \-- Septic shock (presumed) \-- Multifocal pneumonia Assessment Mr. Eugene Alejandro is a 69-year-old male with a history of myelodysplastic syndrome (recurrent anemia requiring weekly transfusions), prostate cancer, COPD (post-resection), hypertension on midodrine, and schizophrenia, who presents with weakness, dizziness, weight loss, poor oral intake, and worsening right lower extremity edema. Notable for new purulent drainage from both his posterior ankle and inferior villarreal and gross 4+ right leg edema. Patient denies leg pain. Noted flat affect, not eating. Past transfer to [place] for possible surgical evaluation based on CT evidence of muscle abscess/necrotizing fasciitis, though no acute surgery was indicated. At present, the patient remains hemodynamically unstable, requiring vasopressor support (levophed 16 mcg), and has evidence of septic shock (fever, hypotension, tachycardia, leukocytosis not present but anemia present, lactate 2.6, and ongoing purulent drainage of right LE ulcer presumed infectious). Imaging shows multifocal pneumonia (diffuse airspace disease). Right lower extremity exam: Massively edematous, non-tender, with 4+ edema and draining purulent ulcer lateral villarreal and posterior ankle. Current antibiotic regimen is vancomycin and cefepime pending cultures. Last Hb 8.7 after transfusion (matt 7.3). Patient is also severely hypertensive at baseline, unclear etiology of persistent relative hypotension, likely secondary to sepsis. 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 no organisms seen on gram stain Plan: - f/u on blood and wound cultures - defer to primary team for management of myelodysplastic syndrome and transfusions for hemoglobins under 7 \-- Continue empiric vancomycin and cefepime \-- Blood, sputum and wound cultures pending; recommend obtaining superficial wound culture from draining right lower extremity ulcer \-- MRI right lower extremity to further evaluate suspected muscle abscess/necrotizing infection \-- Continue vasopressor support (levophed), goal MAP > 65 \-- IV fluids as tolerated \-- Monitor for improvement/worsening of sepsis/shock \-- Continue blood transfusions as per hematology/primary; most recent Hgb 8.7 \-- Not recommended to diurese at present due to hemodynamics and ongoing sepsis/shock \-- Monitor oxygenation, continue supportive care including 2L nasal cannula \-- Ongoing care for schizophrenia as per psychiatry recommendations \-- Monitor laboratory markers and adjust antibiotics if indicated based on cultures Isolation Precautions: standard Authorized and Performed by: paola steve Total critical care time: Approximately 76 minutes Due to a high probability of clinically significant, life threatening deterioration, the patient required my highest level of preparedness to intervene emergently and I personally spent this critical care time directly and personally managing the patient. This critical care time included obtaining a history; examining the patient; pulse oximetry; ordering and review of studies; arranging urgent treatment with development of a management plan; evaluation of patient's response to treatment; frequent reassessment; and, discussions with other providers. This critical care time was performed to assess and manage the high probability of imminent, life-threatening deterioration that that could result in multi- organ failure. It was exclusive of separately billable procedures and treating other patients and teaching time. Plan discussed with: Other Dietary Evaluation Review Recommendations by RD: Increase Calorie Intake Comments: Pt meets criteria for Moderate Protein-Calorie Malnutrition in the setting of chronic illness based on wt loss 6.3kg/8.0% in 6 month and mild fluid accumulation to right LE. Nutrition Recommendation 1) Ensure Enlive 240ml TID 2) Monitor wt trend, I/O, lab values, PO intake Expected Outcomes/Goals: To gain/maintain wt Intake to meet at least 75% estimated needs FU 3-5 days Interpretation of weight loss: up to 10% in 6 months Fluid Accumulation (Non Severe: Mild fluid retention Protein Calorie Malnutrition: Non-Severe Is there a minimum of two crit: Yes CC Plasma Assessment Blood Product Administration S: [id number] PAOLA QUIROZ MD Oct 15, 2024 06:20
--- NOTE | 2024-10-15 06:23 | DVHPN2 ---
Consult Progress Note Date Seen: Oct 11, 2024 Subjective Patient reports: Other (surgery has evaluated patients leg and on the right is edemitis and tender to deep palapation only , no tightness or enduration . has a posterior ankle ulcer . remaint intermittently febrile and on levofed support . lactic acid has improved ) Objective vital signs Vital Sign Date Time Temp Pulse Resp B/P (MAP) Pulse Ox O2 Delivery O2 Flow Rate FiO2 10/15/24 05:52 99.1 116 20 101/60 99.1 10/15/24 04:30 97 10/15/24 04:00 Nasal Cannula* 4 36 Total Intake and Output 10/14/24 10/14/24 10/15/24 15:00 23:00 07:00 Intake Total 445.00 ml 954.876 ml 236.877 ml Balance 445.00 ml 954.876 ml 236.877 ml medications Current Medications Medications Dose Ordered Sig/Fabricio Route Start Time Stop Time Status Last Admin Dose Admin Ondansetron HCl 4 mg Q4HP PRN IV 10/08/24 08:45 10/11/24 20:53 4 MG Docusate Sodium 100 mg BIDPRN PRN PO 10/08/24 08:45 Vancomycin HCl 0 ml @ 0 mls/hr UD IV 10/08/24 08:45 Piperacillin Sod/ Tazobactam Sod 100 ml @ 25 mls/hr Q8HR IV 10/08/24 14:00 10/15/24 06:07 25 MLS/HR Midodrine 10 mg TID PO 10/08/24 14:00 10/15/24 06:07 10 MG Patient Own Medication 1 tab DAILY PO 10/08/24 10:00 UNV Patient Own Medication 600 mg BID PO 10/08/24 10:00 UNV Patient Own Medication 2 mg BID PO 10/08/24 10:00 UNV Albuterol 2.5 mg Q6HWA [facility] 10/08/24 12:00 10/14/24 18:41 2.5 MG Ipratropium [place] 0.5 mg Q6HWA [facility] 10/08/24 12:00 10/14/24 18:41 0.5 MG Risperidone 2 mg BID PO 10/08/24 10:00 10/14/24 22:29 2 MG Ipratropium [place] 0.5 mg Q6HWA [facility] 10/08/24 18:00 UNV Albuterol 2.5 mg Q6HWA [facility] 10/08/24 18:00 UNV Vancomycin HCl 300 ml @ 200 mls/hr Q12H IV 10/13/24 20:00 10/14/24 20:27 200 MLS/HR Norepinephrine Bitartrate 250 ml @ 3.75 mls/hr Q24H IV 10/14/24 19:30 Physical Exam: General: NAD Neck: Supple. No masses. HEENT: PERRL. Normal lids and conjunctiva. Moist mucous membranes. Oropharynx without lesions, exudates or excessive erythema. Normal appearance of the external aspects of the nose and ears. Heart: Regular rhythm, normal rate. No murmur. No lower extremity edema (replace with: profound right lower extremity 4+ edema). Lungs: Normal respiratory effort. Clear to auscultation bilaterally. No wheezes. No crackles. Abdomen: Soft. Non-tender. Non-distended. No masses or abdominal hernia. Msk: Right leg: profound, non-tender 4+ pitting edema; purulent ulcer on inferior villarreal and posterior ankle. No digital cyanosis. Normal strength and tone in all other limbs. Skin: Warm and dry except right leg; draining purulent ulcers inferior villarreal and posterior ankle. Neuro: Alert. No facial droop or slurred speech. Extra-ocular movements intact. Sensation intact to soft touch in all 4 limbs. Psych: Flat affect. Oriented to person, place, time, and situation. laboratory and microbiology Laboratory Tests 10/15/24 02:56 Test 10/15/24 02:56 Range/Units Serum Glucose 108 H 74-106 mg/dL Problem List/Assessment/Plan Problems(with codes): (1) Severe anemia (2) Swelling of right lower extremity (3) Sepsis, unspecified organism (4) Cellulitis of right lower extremity (5) Near syncope Problem List/Assessment/Plan ASSESSMENT AND PLAN: ID Problem List: \-- Chronic myelodysplastic syndrome with recurrent anemia \-- Prostate cancer \-- COPD (post-resection) \-- Chronic hypertension \-- Schizophrenia \-- Chronic right lower extremity edema, recurrent cellulitis, draining ulcer \-- Septic shock (presumed) \-- Multifocal pneumonia Assessment Mr. Eugene Alejandro is a 69-year-old male with a history of myelodysplastic syndrome (recurrent anemia requiring weekly transfusions), prostate cancer, COPD (post-resection), hypertension on midodrine, and schizophrenia, who presents with weakness, dizziness, weight loss, poor oral intake, and worsening right lower extremity edema. Notable for new purulent drainage from both his posterior ankle and inferior villarreal and gross 4+ right leg edema. Patient denies leg pain. Noted flat affect, not eating. Past transfer to [place] for possible surgical evaluation based on CT evidence of muscle abscess/necrotizing fasciitis, though no acute surgery was indicated. At present, the patient remains hemodynamically unstable, requiring vasopressor support (levophed 16 mcg), and has evidence of septic shock (fever, hypotension, tachycardia, leukocytosis not present but anemia present, lactate 2.6, and ongoing purulent drainage of right LE ulcer presumed infectious). Imaging shows multifocal pneumonia (diffuse airspace disease). Right lower extremity exam: Massively edematous, non-tender, with 4+ edema and draining purulent ulcer lateral villarreal and posterior ankle. Current antibiotic regimen is vancomycin and cefepime pending cultures. Last Hb 8.7 after transfusion (matt 7.3). Patient is also severely hypertensive at baseline, unclear etiology of persistent relative hypotension, likely secondary to sepsis. 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 no organisms seen on gram stain 10/11: liver enzymes are elevated , likely related to ischemic hepatopathy , however would rule out any underlying HIV or hepatitis Plan: - screen for hepatitis A,B, and C - check HIV status - check LFTs daily - continue mitadrine TID - defer to surgery on need for debridement - f/u on blood and wound cultures - defer to primary team for management of myelodysplastic syndrome and transfusions for hemoglobins under 7 \-- Continue empiric vancomycin and cefepime \-- Blood, sputum and wound cultures pending; recommend obtaining superficial wound culture from draining right lower extremity ulcer \-- MRI right lower extremity to further evaluate suspected muscle abscess/necrotizing infection \-- Continue vasopressor support (levophed), goal MAP > 65 \-- IV fluids as tolerated \-- Monitor for improvement/worsening of sepsis/shock \-- Continue blood transfusions as per hematology/primary; most recent Hgb 8.7 \-- Not recommended to diurese at present due to hemodynamics and ongoing sepsis/shock \-- Monitor oxygenation, continue supportive care including 2L nasal cannula \-- Ongoing care for schizophrenia as per psychiatry recommendations \-- Monitor laboratory markers and adjust antibiotics if indicated based on cultures Isolation Precautions: standard Authorized and Performed by: paola wilson Total critical care time: Approximately 76 minutes Due to a high probability of clinically significant, life threatening deterioration, the patient required my highest level of preparedness to intervene emergently and I personally spent this critical care time directly and personally managing the patient. This critical care time included obtaining a history; examining the patient; pulse oximetry; ordering and review of studies; arranging urgent treatment with development of a management plan; evaluation of patient's response to treatment; frequent reassessment; and, discussions with other providers. This critical care time was performed to assess and manage the high probability of imminent, life-threatening deterioration that that could result in multi- organ failure. It was exclusive of separately billable procedures and treating other patients and teaching time. Plan discussed with: Other Dietary Evaluation Review Recommendations by RD: Increase Calorie Intake Comments: Pt meets criteria for Moderate Protein-Calorie Malnutrition in the setting of chronic illness based on wt loss 6.3kg/8.0% in 6 month and mild fluid accumulation to right LE. Nutrition Recommendation 1) Ensure Enlive 240ml TID 2) Monitor wt trend, I/O, lab values, PO intake Expected Outcomes/Goals: To gain/maintain wt Intake to meet at least 75% estimated needs FU 3-5 days Interpretation of weight loss: up to 10% in 6 months Fluid Accumulation (Non Severe: Mild fluid retention Protein Calorie Malnutrition: Non-Severe Is there a minimum of two crit: Yes CC Plasma Assessment Blood Product Administration S: [id number] PAOLA WILSON MD Oct 15, 2024 06:23
--- NOTE | 2024-10-15 06:23 | DVHPN2 ---
Consult Progress Note Date Seen: Oct 12, 2024 Subjective Patient reports: Other (negative for acute hepatitis , levofed is slowly coming down but patient is still pressure dependent and on 2 liter nasla canula . ) Objective vital signs Vital Sign Date Time Temp Pulse Resp B/P (MAP) Pulse Ox O2 Delivery O2 Flow Rate FiO2 10/15/24 05:52 99.1 116 20 101/60 99.1 10/15/24 04:30 97 10/15/24 04:00 Nasal Cannula* 4 36 Total Intake and Output 10/14/24 10/14/24 10/15/24 15:00 23:00 07:00 Intake Total 445.00 ml 954.876 ml 236.877 ml Balance 445.00 ml 954.876 ml 236.877 ml medications Current Medications Medications Dose Ordered Sig/Fabricio Route Start Time Stop Time Status Last Admin Dose Admin Ondansetron HCl 4 mg Q4HP PRN IV 10/08/24 08:45 10/11/24 20:53 4 MG Docusate Sodium 100 mg BIDPRN PRN PO 10/08/24 08:45 Vancomycin HCl 0 ml @ 0 mls/hr UD IV 10/08/24 08:45 Piperacillin Sod/ Tazobactam Sod 100 ml @ 25 mls/hr Q8HR IV 10/08/24 14:00 10/15/24 06:07 25 MLS/HR Midodrine 10 mg TID PO 10/08/24 14:00 10/15/24 06:07 10 MG Patient Own Medication 1 tab DAILY PO 10/08/24 10:00 UNV Patient Own Medication 600 mg BID PO 10/08/24 10:00 UNV Patient Own Medication 2 mg BID PO 10/08/24 10:00 UNV Albuterol 2.5 mg Q6HWA NEB 10/08/24 12:00 10/14/24 18:41 2.5 MG Ipratropium [place] 0.5 mg Q6HWA [facility] 10/08/24 12:00 10/14/24 18:41 0.5 MG Risperidone 2 mg BID PO 10/08/24 10:00 10/14/24 22:29 2 MG Ipratropium [place] 0.5 mg Q6HWA [facility] 10/08/24 18:00 UNV Albuterol 2.5 mg Q6HWA [facility] 10/08/24 18:00 UNV Vancomycin HCl 300 ml @ 200 mls/hr Q12H IV 10/13/24 20:00 10/14/24 20:27 200 MLS/HR Norepinephrine Bitartrate 250 ml @ 3.75 mls/hr Q24H IV 10/14/24 19:30 Physical Exam: General: NAD Neck: Supple. No masses. HEENT: PERRL. Normal lids and conjunctiva. Moist mucous membranes. Oropharynx without lesions, exudates or excessive erythema. Normal appearance of the external aspects of the nose and ears. Heart: Regular rhythm, normal rate. No murmur. No lower extremity edema (replace with: profound right lower extremity 4+ edema). Lungs: Normal respiratory effort. Clear to auscultation bilaterally. No wheezes. No crackles. Abdomen: Soft. Non-tender. Non-distended. No masses or abdominal hernia. Msk: Right leg: profound, non-tender 4+ pitting edema; purulent ulcer on inferior villarreal and posterior ankle. No digital cyanosis. Normal strength and tone in all other limbs. Skin: Warm and dry except right leg; draining purulent ulcers inferior villarreal and posterior ankle. Neuro: Alert. No facial droop or slurred speech. Extra-ocular movements intact. Sensation intact to soft touch in all 4 limbs. Psych: Flat affect. Oriented to person, place, time, and situation. laboratory and microbiology Laboratory Tests 10/15/24 02:56 Test 10/15/24 02:56 Range/Units Serum Glucose 108 H 74-106 mg/dL Problem List/Assessment/Plan Problems(with codes): (1) Postoperative pain (2) Near syncope (3) Cellulitis of right lower extremity (4) Sepsis, unspecified organism (5) Swelling of right lower extremity (6) Severe anemia Problem List/Assessment/Plan ASSESSMENT AND PLAN: ID Problem List: \-- Chronic myelodysplastic syndrome with recurrent anemia \-- Prostate cancer \-- COPD (post-resection) \-- Chronic hypertension \-- Schizophrenia \-- Chronic right lower extremity edema, recurrent cellulitis, draining ulcer \-- Septic shock (presumed) \-- Multifocal pneumonia Assessment Mr. Eugene Alejandro is a 69-year-old male with a history of myelodysplastic syndrome (recurrent anemia requiring weekly transfusions), prostate cancer, COPD (post-resection), hypertension on midodrine, and schizophrenia, who presents with weakness, dizziness, weight loss, poor oral intake, and worsening right lower extremity edema. Notable for new purulent drainage from both his posterior ankle and inferior villarreal and gross 4+ right leg edema. Patient denies leg pain. Noted flat affect, not eating. Past transfer to [place] for possible surgical evaluation based on CT evidence of muscle abscess/necrotizing fasciitis, though no acute surgery was indicated. At present, the patient remains hemodynamically unstable, requiring vasopressor support (levophed 16 mcg), and has evidence of septic shock (fever, hypotension, tachycardia, leukocytosis not present but anemia present, lactate 2.6, and ongoing purulent drainage of right LE ulcer presumed infectious). Imaging shows multifocal pneumonia (diffuse airspace disease). Right lower extremity exam: Massively edematous, non-tender, with 4+ edema and draining purulent ulcer lateral villarreal and posterior ankle. Current antibiotic regimen is vancomycin and cefepime pending cultures. Last Hb 8.7 after transfusion (matt 7.3). Patient is also severely hypertensive at baseline, unclear etiology of persistent relative hypotension, likely secondary to sepsis. 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 no organisms seen on gram stain 10/11: liver enzymes are elevated , likely related to ischemic hepatopathy , however would rule out any underlying HIV or hepatitis 10/12: congestion as seen in the lungs , leg is still edemitis as well but only on the right leg , otherwise appears intervascularly dry . fever curve is stable with high fever at 102.2 Plan: - screen for hepatitis A,B, and C - check HIV status - check LFTs daily - continue mitadrine TID - defer to surgery on need for debridement - f/u on blood and wound cultures - increase vancomycin troth to 15-20 - defer to primary team for management of myelodysplastic syndrome and transfusions for hemoglobins under 7 \-- Continue empiric vancomycin and zosyn \-- Blood, sputum and wound cultures pending; recommend obtaining superficial wound culture from draining right lower extremity ulcer \-- MRI right lower extremity to further evaluate suspected muscle abscess/necrotizing infection \-- Continue vasopressor support (levophed), goal MAP > 65 \-- IV fluids as tolerated \-- Monitor for improvement/worsening of sepsis/shock \-- Continue blood transfusions as per hematology/primary; most recent Hgb 8.7 \-- Not recommended to diurese at present due to hemodynamics and ongoing sepsis/shock \-- Monitor oxygenation, continue supportive care including 2L nasal cannula \-- Ongoing care for schizophrenia as per psychiatry recommendations \-- Monitor laboratory markers and adjust antibiotics if indicated based on cultures Isolation Precautions: standard Authorized and Performed by: paola wilson Total critical care time: Approximately 76 minutes Due to a high probability of clinically significant, life threatening deterioration, the patient required my highest level of preparedness to intervene emergently and I personally spent this critical care time directly and personally managing the patient. This critical care time included obtaining a history; examining the patient; pulse oximetry; ordering and review of studies; arranging urgent treatment with development of a management plan; evaluation of patient's response to treatment; frequent reassessment; and, discussions with other providers. This critical care time was performed to assess and manage the high probability of imminent, life-threatening deterioration that that could result in multi- organ failure. It was exclusive of separately billable procedures and treating other patients and teaching time. Plan discussed with: Other Dietary Evaluation Review Recommendations by RD: Increase Calorie Intake Comments: Pt meets criteria for Moderate Protein-Calorie Malnutrition in the setting of chronic illness based on wt loss 6.3kg/8.0% in 6 month and mild fluid accumulation to right LE. Nutrition Recommendation 1) Ensure Enlive 240ml TID 2) Monitor wt trend, I/O, lab values, PO intake Expected Outcomes/Goals: To gain/maintain wt Intake to meet at least 75% estimated needs FU 3-5 days Interpretation of weight loss: up to 10% in 6 months Fluid Accumulation (Non Severe: Mild fluid retention Protein Calorie Malnutrition: Non-Severe Is there a minimum of two crit: Yes CC Plasma Assessment Blood Product Administration S: [id number] PAOLA WILSON MD Oct 15, 2024 06:23
--- NOTE | 2024-10-15 06:24 | DVHPN2 ---
Consult Progress Note Date Seen: Oct 13, 2024 Subjective Patient reports: Other (patient has yet to be seen by podiatry or general surgery , is incontinent and having loose stools but no diarrhea . temp as high as 103. right leg wound ulcer has no odor ) Objective vital signs Vital Sign Date Time Temp Pulse Resp B/P (MAP) Pulse Ox O2 Delivery O2 Flow Rate FiO2 10/15/24 05:52 99.1 116 20 101/60 99.1 10/15/24 04:30 97 10/15/24 04:00 Nasal Cannula* 4 36 Total Intake and Output 10/14/24 10/14/24 10/15/24 15:00 23:00 07:00 Intake Total 445.00 ml 954.876 ml 236.877 ml Balance 445.00 ml 954.876 ml 236.877 ml medications Current Medications Medications Dose Ordered Sig/Fabricio Route Start Time Stop Time Status Last Admin Dose Admin Ondansetron HCl 4 mg Q4HP PRN IV 10/08/24 08:45 10/11/24 20:53 4 MG Docusate Sodium 100 mg BIDPRN PRN PO 10/08/24 08:45 Vancomycin HCl 0 ml @ 0 mls/hr UD IV 10/08/24 08:45 Piperacillin Sod/ Tazobactam Sod 100 ml @ 25 mls/hr Q8HR IV 10/08/24 14:00 10/15/24 06:07 25 MLS/HR Midodrine 10 mg TID PO 10/08/24 14:00 10/15/24 06:07 10 MG Patient Own Medication 1 tab DAILY PO 10/08/24 10:00 UNV Patient Own Medication 600 mg BID PO 10/08/24 10:00 UNV Patient Own Medication 2 mg BID PO 10/08/24 10:00 UNV Albuterol 2.5 mg Q6HWA NEB 10/08/24 12:00 10/14/24 18:41 2.5 MG Ipratropium [place] 0.5 mg Q6HWA NEB 10/08/24 12:00 10/14/24 18:41 0.5 MG Risperidone 2 mg BID PO 10/08/24 10:00 10/14/24 22:29 2 MG Ipratropium [place] 0.5 mg Q6HWA NEB 10/08/24 18:00 UNV Albuterol 2.5 mg Q6HWA NEB 10/08/24 18:00 UNV Vancomycin HCl 300 ml @ 200 mls/hr Q12H IV 10/13/24 20:00 10/14/24 20:27 200 MLS/HR Norepinephrine Bitartrate 250 ml @ 3.75 mls/hr Q24H IV 10/14/24 19:30 Physical Exam: General: NAD Neck: Supple. No masses. HEENT: PERRL. Normal lids and conjunctiva. Moist mucous membranes. Oropharynx without lesions, exudates or excessive erythema. Normal appearance of the external aspects of the nose and ears. Heart: Regular rhythm, normal rate. No murmur. No lower extremity edema (replace with: profound right lower extremity 4+ edema). Lungs: Normal respiratory effort. Clear to auscultation bilaterally. No wheezes. No crackles. Abdomen: Soft. Non-tender. Non-distended. No masses or abdominal hernia. Msk: Right leg: profound, non-tender 4+ pitting edema; purulent ulcer on inferior villarreal and posterior ankle. No digital cyanosis. Normal strength and tone in all other limbs. Skin: Warm and dry except right leg; draining purulent ulcers inferior villarreal and posterior ankle. Neuro: Alert. No facial droop or slurred speech. Extra-ocular movements intact. Sensation intact to soft touch in all 4 limbs. Psych: Flat affect. Oriented to person, place, time, and situation. laboratory and microbiology Laboratory Tests 10/15/24 02:56 Test 10/15/24 02:56 Range/Units Serum Glucose 108 H 74-106 mg/dL Problem List/Assessment/Plan Problems(with codes): (1) Severe anemia (2) Swelling of right lower extremity (3) Sepsis, unspecified organism (4) Cellulitis of right lower extremity (5) Near syncope (6) Postoperative pain Problem List/Assessment/Plan ASSESSMENT AND PLAN: ID Problem List: \-- Chronic myelodysplastic syndrome with recurrent anemia \-- Prostate cancer \-- COPD (post-resection) \-- Chronic hypertension \-- Schizophrenia \-- Chronic right lower extremity edema, recurrent cellulitis, draining ulcer \-- Septic shock (presumed) \-- Multifocal pneumonia Assessment Mr. Eugene Alejandro is a 69-year-old male with a history of myelodysplastic syndrome (recurrent anemia requiring weekly transfusions), prostate cancer, COPD (post-resection), hypertension on midodrine, and schizophrenia, who presents with weakness, dizziness, weight loss, poor oral intake, and worsening right lower extremity edema. Notable for new purulent drainage from both his posterior ankle and inferior villarreal and gross 4+ right leg edema. Patient denies leg pain. Noted flat affect, not eating. Past transfer to [place] for possible surgical evaluation based on CT evidence of muscle abscess/necrotizing fasciitis, though no acute surgery was indicated. At present, the patient remains hemodynamically unstable, requiring vasopressor support (levophed 16 mcg), and has evidence of septic shock (fever, hypotension, tachycardia, leukocytosis not present but anemia present, lactate 2.6, and ongoing purulent drainage of right LE ulcer presumed infectious). Imaging shows multifocal pneumonia (diffuse airspace disease). Right lower extremity exam: Massively edematous, non-tender, with 4+ edema and draining purulent ulcer lateral villarreal and posterior ankle. Current antibiotic regimen is vancomycin and cefepime pending cultures. Last Hb 8.7 after transfusion (matt 7.3). Patient is also severely hypertensive at baseline, unclear etiology of persistent relative hypotension, likely secondary to sepsis. 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 no organisms seen on gram stain 10/11: liver enzymes are elevated , likely related to ischemic hepatopathy , however would rule out any underlying HIV or hepatitis 10/12: congestion as seen in the lungs , leg is still edemitis as well but only on the right leg , otherwise appears intervascularly dry . fever curve is stable with high fever at 102.2 10/13: hemoglobin is 6.9 , requiring a blood transfusion . blood transfusion may be resulting in lung congestion and consolidations Plan: - screen for hepatitis A,B, and C - check HIV status - check LFTs daily - continue mitadrine TID - defer to surgery on need for debridement - f/u on blood and wound cultures - increase vancomycin troth to 15-20 - defer to primary team for management of myelodysplastic syndrome and transfusions for hemoglobins under 7 \-- Continue empiric vancomycin and zosyn \-- Blood, sputum and wound cultures pending; recommend obtaining superficial wound culture from draining right lower extremity ulcer \-- MRI right lower extremity to further evaluate suspected muscle abscess/necrotizing infection \-- Continue vasopressor support (levophed), goal MAP > 65 \-- IV fluids as tolerated \-- Monitor for improvement/worsening of sepsis/shock \-- Continue blood transfusions as per hematology/primary; most recent Hgb 8.7 \-- Not recommended to diurese at present due to hemodynamics and ongoing sepsis/shock \-- Monitor oxygenation, continue supportive care including 2L nasal cannula \-- Ongoing care for schizophrenia as per psychiatry recommendations \-- Monitor laboratory markers and adjust antibiotics if indicated based on cultures Isolation Precautions: standard Authorized and Performed by: paola wilson Total critical care time: Approximately 76 minutes Due to a high probability of clinically significant, life threatening deterioration, the patient required my highest level of preparedness to intervene emergently and I personally spent this critical care time directly and personally managing the patient. This critical care time included obtaining a history; examining the patient; pulse oximetry; ordering and review of studies; arranging urgent treatment with development of a management plan; evaluation of patient's response to treatment; frequent reassessment; and, discussions with other providers. This critical care time was performed to assess and manage the high probability of imminent, life-threatening deterioration that that could result in multi- organ failure. It was exclusive of separately billable procedures and treating other patients and teaching time. Plan discussed with: Other Dietary Evaluation Review Recommendations by RD: Increase Calorie Intake Comments: Pt meets criteria for Moderate Protein-Calorie Malnutrition in the setting of chronic illness based on wt loss 6.3kg/8.0% in 6 month and mild fluid accumulation to right LE. Nutrition Recommendation 1) Ensure Enlive 240ml TID 2) Monitor wt trend, I/O, lab values, PO intake Expected Outcomes/Goals: To gain/maintain wt Intake to meet at least 75% estimated needs FU 3-5 days Interpretation of weight loss: up to 10% in 6 months Fluid Accumulation (Non Severe: Mild fluid retention Protein Calorie Malnutrition: Non-Severe Is there a minimum of two crit: Yes CC Plasma Assessment Blood Product Administration S: [id number] PAOLA WILSON MD Oct 15, 2024 06:24
--- NOTE | 2024-10-15 06:24 | DVHPN2 ---
Consult Progress Note Date Seen: Oct 15, 2024 Subjective Patient reports: Other (tachypneic on 4 liters nasal canula , seen by Dr. Up with podiatry and Dr. Quinones with vascular surgery , both recommned care for ankle ulcer and medical managemement given that myositis and pyomyositits is too disorganized to evacuate surgically ) Objective vital signs Vital Sign Date Time Temp Pulse Resp B/P (MAP) Pulse Ox O2 Delivery O2 Flow Rate FiO2 10/15/24 05:52 99.1 116 20 101/60 99.1 10/15/24 04:30 97 10/15/24 04:00 Nasal Cannula* 4 36 Total Intake and Output 10/14/24 10/14/24 10/15/24 15:00 23:00 07:00 Intake Total 445.00 ml 954.876 ml 236.877 ml Balance 445.00 ml 954.876 ml 236.877 ml medications Current Medications Medications Dose Ordered Sig/Fabricio Route Start Time Stop Time Status Last Admin Dose Admin Ondansetron HCl 4 mg Q4HP PRN IV 10/08/24 08:45 10/11/24 20:53 4 MG Docusate Sodium 100 mg BIDPRN PRN PO 10/08/24 08:45 Vancomycin HCl 0 ml @ 0 mls/hr UD IV 10/08/24 08:45 Piperacillin Sod/ Tazobactam Sod 100 ml @ 25 mls/hr Q8HR IV 10/08/24 14:00 10/15/24 06:07 25 MLS/HR Midodrine 10 mg TID PO 10/08/24 14:00 10/15/24 06:07 10 MG Patient Own Medication 1 tab DAILY PO 10/08/24 10:00 UNV Patient Own Medication 600 mg BID PO 10/08/24 10:00 UNV Patient Own Medication 2 mg BID PO 10/08/24 10:00 UNV Albuterol 2.5 mg Q6HWA NEB 10/08/24 12:00 10/14/24 18:41 2.5 MG Ipratropium [place] 0.5 mg Q6HWA NEB 10/08/24 12:00 10/14/24 18:41 0.5 MG Risperidone 2 mg BID PO 10/08/24 10:00 10/14/24 22:29 2 MG Ipratropium [place] 0.5 mg Q6HWA [facility] 10/08/24 18:00 UNV Albuterol 2.5 mg Q6HWA NEB 10/08/24 18:00 UNV Vancomycin HCl 300 ml @ 200 mls/hr Q12H IV 10/13/24 20:00 10/14/24 20:27 200 MLS/HR Norepinephrine Bitartrate 250 ml @ 3.75 mls/hr Q24H IV 10/14/24 19:30 Physical Exam: General: NAD Neck: Supple. No masses. HEENT: PERRL. Normal lids and conjunctiva. Moist mucous membranes. Oropharynx without lesions, exudates or excessive erythema. Normal appearance of the external aspects of the nose and ears. Heart: Regular rhythm, normal rate. No murmur. No lower extremity edema (replace with: profound right lower extremity 4+ edema). Lungs: Normal respiratory effort. Clear to auscultation bilaterally. No wheezes. No crackles. Abdomen: Soft. Non-tender. Non-distended. No masses or abdominal hernia. Msk: Right leg: profound, non-tender 4+ pitting edema; purulent ulcer on inferior villarreal and posterior ankle. No digital cyanosis. Normal strength and tone in all other limbs. Skin: Warm and dry except right leg; draining purulent ulcers inferior villarreal and posterior ankle. Neuro: Alert. No facial droop or slurred speech. Extra-ocular movements intact. Sensation intact to soft touch in all 4 limbs. Psych: Flat affect. Oriented to person, place, time, and situation. laboratory and microbiology Laboratory Tests 10/15/24 02:56 Test 10/15/24 02:56 Range/Units Serum Glucose 108 H 74-106 mg/dL Problem List/Assessment/Plan Problems(with codes): (1) Severe anemia (2) Swelling of right lower extremity (3) Sepsis, unspecified organism (4) Cellulitis of right lower extremity (5) Near syncope Problem List/Assessment/Plan ASSESSMENT AND PLAN: ID Problem List: \-- Chronic myelodysplastic syndrome with recurrent anemia \-- Prostate cancer \-- COPD (post-resection) \-- Chronic hypertension \-- Schizophrenia \-- Chronic right lower extremity edema, recurrent cellulitis, draining ulcer \-- Septic shock (presumed) \-- Multifocal pneumonia Assessment Mr. Eugene Alejandro is a 69-year-old male with a history of myelodysplastic syndrome (recurrent anemia requiring weekly transfusions), prostate cancer, COPD (post-resection), hypertension on midodrine, and schizophrenia, who presents with weakness, dizziness, weight loss, poor oral intake, and worsening right lower extremity edema. Notable for new purulent drainage from both his posterior ankle and inferior villarreal and gross 4+ right leg edema. Patient denies leg pain. Noted flat affect, not eating. Past transfer to [place] for possible surgical evaluation based on CT evidence of muscle abscess/necrotizing fasciitis, though no acute surgery was indicated. At present, the patient remains hemodynamically unstable, requiring vasopressor support (levophed 16 mcg), and has evidence of septic shock (fever, hypotension, tachycardia, leukocytosis not present but anemia present, lactate 2.6, and ongoing purulent drainage of right LE ulcer presumed infectious). Imaging shows multifocal pneumonia (diffuse airspace disease). Right lower extremity exam: Massively edematous, non-tender, with 4+ edema and draining purulent ulcer lateral villarreal and posterior ankle. Current antibiotic regimen is vancomycin and cefepime pending cultures. Last Hb 8.7 after transfusion (matt 7.3). Patient is also severely hypertensive at baseline, unclear etiology of persistent relative hypotension, likely secondary to sepsis. 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 no organisms seen on gram stain 10/11: liver enzymes are elevated , likely related to ischemic hepatopathy , however would rule out any underlying HIV or hepatitis 10/12: congestion as seen in the lungs , leg is still edemitis as well but only on the right leg , otherwise appears intervascularly dry . fever curve is stable with high fever at 102.2 10/13: hemoglobin is 6.9 , requiring a blood transfusion . blood transfusion may be resulting in lung congestion and consolidations 10/14: liver enzymes are slowly improving and awaiting surgical evaluation of patients leg 10/15: angiography was done and showed extensive thickening of Achilles tendon and surrounding soft tissues with posterior medial calf to correlate with patients surgical history . theres generalized atrophy and edema within the muscles of the right calf which may be seen in myositis or other etiology . severes right greater than left subcutaneous edea with skin thickening in the background as well as body wall edema , unclear if myositis is truly infectious in etiology since patient does not have a clear open wound directly at the site of the muscular atrophy . pyomyositis on R leg on MRI hb intermittently dropping vancomycin trough therapuetic Chest CT w/ Right upper lobe mass measures 5.4 x 5.0 cm 2 masses in the left upper lobe measure 3.4 x 3.3 cm and 3.1 x 2.6 cm. Right lower lobe mass measures 2.7 x 2.3 cm and additional pleural based medial apical mass measures 2.0 x 1.5 cm. Bibasilar consolidation is present with possible more masslike area in the left lower lobe measuring 4.8 x 4.7 cm. There are air bronchograms within these masses, irregular margins, and some surrounding ground-glass opacities. There are areas of subpleural pulmonary fibrosis in the upper lobes. There are prominent mediastinal lymph nodes measuring up to 1.3 cm in short axis Plan: - consider the addition of clindomycin empirically to see if it will help with necrosis and overall septic picture - screen for hepatitis A,B, and C - check HIV status - check LFTs daily - continue mitadrine TID - defer to surgery on need for debridement - f/u on blood and wound cultures - increase vancomycin troth to 15-20 - defer to primary team for management of myelodysplastic syndrome and transfusions for hemoglobins under 7 - consider surgical consult for pyomyositis when more clinically stable. - recommend hematology/oncology and pulmonology involvement for R lung masses in setting of known prostate cancer and myelodysplastic syndrome - Hb>7, plts>100 goal - vasopressors to keep maps >65 \-- Continue empiric vancomycin and zosyn \-- Blood, sputum and wound cultures pending; recommend obtaining superficial wound culture from draining right lower extremity ulcer \-- MRI right lower extremity to further evaluate suspected muscle abscess/necrotizing infection \-- Continue vasopressor support (levophed), goal MAP > 65 \-- IV fluids as tolerated \-- Monitor for improvement/worsening of sepsis/shock \-- Continue blood transfusions as per hematology/primary; most recent Hgb 8.7 \-- Not recommended to diurese at present due to hemodynamics and ongoing sepsis/shock \-- Monitor oxygenation, continue supportive care including 2L nasal cannula \-- Ongoing care for schizophrenia as per psychiatry recommendations \-- Monitor laboratory markers and adjust antibiotics if indicated based on cultures Isolation Precautions: standard Authorized and Performed by: paola quiroz Total critical care time: Approximately 76 minutes Due to a high probability of clinically significant, life threatening deterioration, the patient required my highest level of preparedness to intervene emergently and I personally spent this critical care time directly and personally managing the patient. This critical care time included obtaining a history; examining the patient; pulse oximetry; ordering and review of studies; arranging urgent treatment with development of a management plan; evaluation of patient's response to treatment; frequent reassessment; and, discussions with other providers. This critical care time was performed to assess and manage the high probability of imminent, life-threatening deterioration that that could result in multi- organ failure. It was exclusive of separately billable procedures and treating other patients and teaching time. Plan discussed with: Other Dietary Evaluation Review Recommendations by RD: Increase Calorie Intake Comments: Pt meets criteria for Moderate Protein-Calorie Malnutrition in the setting of chronic illness based on wt loss 6.3kg/8.0% in 6 month and mild fluid accumulation to right LE. Nutrition Recommendation 1) Ensure Enlive 240ml TID 2) Monitor wt trend, I/O, lab values, PO intake Expected Outcomes/Goals: To gain/maintain wt Intake to meet at least 75% estimated needs FU 3-5 days Interpretation of weight loss: up to 10% in 6 months Fluid Accumulation (Non Severe: Mild fluid retention Protein Calorie Malnutrition: Non-Severe Is there a minimum of two crit: Yes CC Plasma Assessment Blood Product Administration S: [id number] PAOLA QUIROZ MD Oct 15, 2024 06:24
--- NOTE | 2024-10-15 06:24 | DVHPN2 ---
Consult Progress Note Date Seen: Oct 14, 2024 Subjective Patient reports: No new complaints (feeling well , denies cough or SOB but requiring oxygen 2-3 liters and tachycardic) Objective vital signs Vital Sign Date Time Temp Pulse Resp B/P (MAP) Pulse Ox O2 Delivery O2 Flow Rate FiO2 10/15/24 05:52 99.1 116 20 101/60 99.1 10/15/24 04:30 97 10/15/24 04:00 Nasal Cannula* 4 36 Total Intake and Output 10/14/24 10/14/24 10/15/24 15:00 23:00 07:00 Intake Total 445.00 ml 954.876 ml 236.877 ml Balance 445.00 ml 954.876 ml 236.877 ml medications Current Medications Medications Dose Ordered Sig/Fabricio Route Start Time Stop Time Status Last Admin Dose Admin Ondansetron HCl 4 mg Q4HP PRN IV 10/08/24 08:45 10/11/24 20:53 4 MG Docusate Sodium 100 mg BIDPRN PRN PO 10/08/24 08:45 Vancomycin HCl 0 ml @ 0 mls/hr UD IV 10/08/24 08:45 Piperacillin Sod/ Tazobactam Sod 100 ml @ 25 mls/hr Q8HR IV 10/08/24 14:00 10/15/24 06:07 25 MLS/HR Midodrine 10 mg TID PO 10/08/24 14:00 10/15/24 06:07 10 MG Patient Own Medication 1 tab DAILY PO 10/08/24 10:00 UNV Patient Own Medication 600 mg BID PO 10/08/24 10:00 UNV Patient Own Medication 2 mg BID PO 10/08/24 10:00 UNV Albuterol 2.5 mg Q6HWA NEB 10/08/24 12:00 10/14/24 18:41 2.5 MG Ipratropium [place] 0.5 mg Q6HWA NEB 10/08/24 12:00 10/14/24 18:41 0.5 MG Risperidone 2 mg BID PO 10/08/24 10:00 10/14/24 22:29 2 MG Ipratropium [place] 0.5 mg Q6HWA NEB 10/08/24 18:00 UNV Albuterol 2.5 mg Q6HWA NEB 10/08/24 18:00 UNV Vancomycin HCl 300 ml @ 200 mls/hr Q12H IV 10/13/24 20:00 10/14/24 20:27 200 MLS/HR Norepinephrine Bitartrate 250 ml @ 3.75 mls/hr Q24H IV 10/14/24 19:30 Physical Exam: General: NAD Neck: Supple. No masses. HEENT: PERRL. Normal lids and conjunctiva. Moist mucous membranes. Oropharynx without lesions, exudates or excessive erythema. Normal appearance of the external aspects of the nose and ears. Heart: Regular rhythm, normal rate. No murmur. No lower extremity edema (replace with: profound right lower extremity 4+ edema). Lungs: Normal respiratory effort. Clear to auscultation bilaterally. No wheezes. No crackles. Abdomen: Soft. Non-tender. Non-distended. No masses or abdominal hernia. Msk: Right leg: profound, non-tender 4+ pitting edema; purulent ulcer on inferior villarreal and posterior ankle. No digital cyanosis. Normal strength and tone in all other limbs. Skin: Warm and dry except right leg; draining purulent ulcers inferior villarreal and posterior ankle. Neuro: Alert. No facial droop or slurred speech. Extra-ocular movements intact. Sensation intact to soft touch in all 4 limbs. Psych: Flat affect. Oriented to person, place, time, and situation. laboratory and microbiology Laboratory Tests 10/15/24 02:56 Test 10/15/24 02:56 Range/Units Serum Glucose 108 H 74-106 mg/dL Problem List/Assessment/Plan Problems(with codes): (1) Severe anemia (2) Swelling of right lower extremity (3) Sepsis, unspecified organism (4) Cellulitis of right lower extremity (5) Near syncope (6) Postoperative pain Problem List/Assessment/Plan ASSESSMENT AND PLAN: ID Problem List: \-- Chronic myelodysplastic syndrome with recurrent anemia \-- Prostate cancer \-- COPD (post-resection) \-- Chronic hypertension \-- Schizophrenia \-- Chronic right lower extremity edema, recurrent cellulitis, draining ulcer \-- Septic shock (presumed) \-- Multifocal pneumonia Assessment Mr. Eugene Alejandro is a 69-year-old male with a history of myelodysplastic syndrome (recurrent anemia requiring weekly transfusions), prostate cancer, COPD (post-resection), hypertension on midodrine, and schizophrenia, who presents with weakness, dizziness, weight loss, poor oral intake, and worsening right lower extremity edema. Notable for new purulent drainage from both his posterior ankle and inferior villarreal and gross 4+ right leg edema. Patient denies leg pain. Noted flat affect, not eating. Past transfer to [place] for possible surgical evaluation based on CT evidence of muscle abscess/necrotizing fasciitis, though no acute surgery was indicated. At present, the patient remains hemodynamically unstable, requiring vasopressor support (levophed 16 mcg), and has evidence of septic shock (fever, hypotension, tachycardia, leukocytosis not present but anemia present, lactate 2.6, and ongoing purulent drainage of right LE ulcer presumed infectious). Imaging shows multifocal pneumonia (diffuse airspace disease). Right lower extremity exam: Massively edematous, non-tender, with 4+ edema and draining purulent ulcer lateral villarreal and posterior ankle. Current antibiotic regimen is vancomycin and cefepime pending cultures. Last Hb 8.7 after transfusion (matt 7.3). Patient is also severely hypertensive at baseline, unclear etiology of persistent relative hypotension, likely secondary to sepsis. 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 no organisms seen on gram stain 10/11: liver enzymes are elevated , likely related to ischemic hepatopathy , however would rule out any underlying HIV or hepatitis 10/12: congestion as seen in the lungs , leg is still edemitis as well but only on the right leg , otherwise appears intervascularly dry . fever curve is stable with high fever at 102.2 10/13: hemoglobin is 6.9 , requiring a blood transfusion . blood transfusion may be resulting in lung congestion and consolidations 10/14: liver enzymes are slowly improving and awaiting surgical evaluation of patients leg Plan: - screen for hepatitis A,B, and C - check HIV status - check LFTs daily - continue mitadrine TID - defer to surgery on need for debridement - f/u on blood and wound cultures - increase vancomycin troth to 15-20 - defer to primary team for management of myelodysplastic syndrome and transfusions for hemoglobins under 7 \-- Continue empiric vancomycin and zosyn \-- Blood, sputum and wound cultures pending; recommend obtaining superficial wound culture from draining right lower extremity ulcer \-- MRI right lower extremity to further evaluate suspected muscle abscess/necrotizing infection \-- Continue vasopressor support (levophed), goal MAP > 65 \-- IV fluids as tolerated \-- Monitor for improvement/worsening of sepsis/shock \-- Continue blood transfusions as per hematology/primary; most recent Hgb 8.7 \-- Not recommended to diurese at present due to hemodynamics and ongoing sepsis/shock \-- Monitor oxygenation, continue supportive care including 2L nasal cannula \-- Ongoing care for schizophrenia as per psychiatry recommendations \-- Monitor laboratory markers and adjust antibiotics if indicated based on cultures Isolation Precautions: standard Authorized and Performed by: paola wilson Total critical care time: Approximately 76 minutes Due to a high probability of clinically significant, life threatening deterioration, the patient required my highest level of preparedness to intervene emergently and I personally spent this critical care time directly and personally managing the patient. This critical care time included obtaining a history; examining the patient; pulse oximetry; ordering and review of studies; arranging urgent treatment with development of a management plan; evaluation of patient's response to treatment; frequent reassessment; and, discussions with other providers. This critical care time was performed to assess and manage the high probability of imminent, life-threatening deterioration that that could result in multi- organ failure. It was exclusive of separately billable procedures and treating other patients and teaching time. Plan discussed with: Other Dietary Evaluation Review Recommendations by RD: Increase Calorie Intake Comments: Pt meets criteria for Moderate Protein-Calorie Malnutrition in the setting of chronic illness based on wt loss 6.3kg/8.0% in 6 month and mild fluid accumulation to right LE. Nutrition Recommendation 1) Ensure Enlive 240ml TID 2) Monitor wt trend, I/O, lab values, PO intake Expected Outcomes/Goals: To gain/maintain wt Intake to meet at least 75% estimated needs FU 3-5 days Interpretation of weight loss: up to 10% in 6 months Fluid Accumulation (Non Severe: Mild fluid retention Protein Calorie Malnutrition: Non-Severe Is there a minimum of two crit: Yes CC Plasma Assessment Blood Product Administration S: [id number] PAOLA WILSON MD Oct 15, 2024 06:24
[2024-10-15] MEDS: MORPHINE SULFATE INJ 2 MG/ml SYRG IV ONE (07:36)
[2024-10-15] MEDS: SODIUM CHLORIDE 0.9% 250 ML IV ONE (09:41)
[2024-10-15] MEDS: IOHEXOL 350 MG/ML 100ML IJ ONE (12:10)
[2024-10-15] MEDS: Ensure HIGH Protein Vanilla 8oz Bottle PO SCH (12:11)
--- NOTE | 2024-10-15 12:20 | DVHINCON2 ---
Date Seen: Oct 15, 2024 Reason for Consultation Right heel wound History of Present Illness Eugene Alejandro is a 69-year-old male with past medial history of myelodysplastic syndrome, prostate cancer status post resection, COPD, schizophrenia, hypotension, and previous admissions for severe anemia due to myelodysplastic syndrome who presented to the emergency department with a chief complaint of dizziness. Patient states he has been feeling weak for a couple days. Patient is seen here frequently for blood transfusions. He has been losing weight and continues to lose weight. He states he does not feel hungry. Last admission, earlier this month, the patient was transferred to [place] for higher level of care due to chronic right leg cellulitis. He was transferred for possible surgical intervention after a CT of right leg with contrast showed possible necrotizing fasciitis. Patient's right leg continues to have worsening edema and now multiple draining wounds. Chest X-ray shows multifocal airspace disease. Past Medical History See H&P Past Surgical History See H&P Family History: Diabetes mellitus G8 MOTHER, Onset:60 years & older FH: heart attack G8 FATHER, , Onset:60 years & older Allergies: Coded Allergies: NO KNOWN ALLERGIES (Unverified , 12/04/23) Home Meds Active Scripts Midodrine Hcl (Midodrine Hcl) 10 Mg Tab, 10 MG PO TID for 30 Days, #90 TAB 3 Refills Prov:YOANDY SALAS CONTROL TECHNICIAN 06/06/24 Reported Medications Aspirin (Aspirin Low Dose) 81 Mg Tab, 1 TAB PO DAILY 09/03/24 Furosemide (Furosemide) 40 Mg Tab, 1 TAB PO DAILY 07/02/24 Risperidone (Risperidone) 2 Mg Tab, 2 MG PO BID, TAB 12/05/23 Mirtazapine (Mirtazapine Oral Disintegrating Tablet) 45 Mg Tab, 1 TAB PO QPM, #30 TAB 1 Refill 12/05/23 Melatonin (KP MELATONIN) 3 Mg Tab, 3 MG PO HS, TAB 12/05/23 Gabapentin (Gabapentin) 600 Mg Tab, 600 MG PO BID, TAB 12/05/23 Fluticasone Furoate (Inhalatio (Arnuity Ellipta) 200 Mcg/Act Inh, 200 MCG IN, INHALER 12/05/23 Atorvastatin Calcium (ATORVASTATIN CALCIUM) 40 Mg Tab, 1 TAB PO DAILY, #30 TAB 5 Refills 12/05/23 Albuterol Sulfate (VENTOLIN MDI) 90 Mcg Ih, 90 MCG IN, INH 12/05/23 Current Medications Current Medications Medications (Trade) Dose Ordered Sig/Fabricio Route PRN Reason Start Time Stop Time Status Last Admin Norepinephrine Bitartrate 250 ml @ 3.75 mls/hr Q24H IV 10/14/24 19:30 10/14/24 08:57 Enteral Nutritional Formula (Ensure High Protein) 240 ml TIDWM PO 10/15/24 12:00 10/15/24 12:11 Vancomycin HCl 300 ml @ 200 mls/hr Q12H IV 10/15/24 12:00 Vital Signs Vital Signs Date Time Temp Pulse Resp B/P (MAP) Pulse Ox O2 Delivery O2 Flow Rate FiO2 10/15/24 11:30 99.5 99 21 91/43 (59) 96 99.5 10/15/24 10:00 Nasal Cannula* 4 36 Physical Exam Dermatological: Skin is dry with mild erythema and some maceration around the wound site No gross deformities noted Mild non-pitting edema present bilaterally Right Achilles heel wound, superficial, mixed fibrotic granular base Vascular: Dorsalis pedis and posterior tibial pulses are 1+ bilaterally Capillary refill is under 2 seconds Skin temperature is warm bilaterally Neurologic: Protective sensation is absent on the plantar forefoot bilaterally Monofilament testing reveals decreased sensation in multiple plantar sites Musculoskeletal: Range of motion at the ankle and MTP joints is within normal limits. Strength is 5/5 in all tested muscle groups. Gait is antalgic due to offloading of the affected limb. Labs/Diagnostic Data Labs Test 10/15/24 09:45 10/15/24 02:56 10/14/24 03:24 10/13/24 04:35 Range/Units Random Vancomycin Level 13.5 H 5-10 ug/mL White Blood Count 7.0 4.4-10.8 10^3/uL Red Blood Count 2.31 L 4.5-5.90 10^6/uL Hemoglobin 6.9 *L 13.5-17.5 g/dL Hematocrit 19.8 #L 41.0-53.0 % Mean Corpuscular Volume 85.8 80.0-100.0 fL Mean Corpuscular Hemoglobin 29.7 28.0-32.0 pg Mean Corpuscular Hemoglobin Concent 34.6 32.0-36.0 g/dL Red Cell Distribution Width 14.7 H 11.8-14.3 % Platelet Count 26 L 140-450 10^3/uL Mean Platelet Volume 10.1 6.9-10.8 fL Neutrophils (%) (Auto) 86.1 H 37.0-80.0 % Lymphocytes (%) (Auto) 7.9 L 10.0-50.0 % Monocytes (%) (Auto) 3.1 0.0-12.0 % Eosinophils (%) (Auto) 2.0 0.0-7.0 % Basophils (%) (Auto) 0.9 0.0-2.0 % Neutrophils # (Auto) 6.0 1.6-8.6 10 ^3/uL Lymphocytes # (Auto) 0.6 0.4-5.4 10 ^3/uL Monocytes # (Auto) 0.2 0-1.3 10 ^3/uL Eosinophils # (Auto) 0.1 0-0.8 10 ^3/uL Basophils # (Auto) 0.1 0-0.2 10 ^3/uL Nucleated Red Blood Cells 0.1 % Sodium Level 135 L 136-145 mmol/L Potassium Level 4.0 3.5-5.1 mmol/L Chloride Level 104 98-107 mmol/L Carbon Dioxide Level 25 20-31 mmol/L Anion Gap 6 5-15 Blood Urea Nitrogen 17 9-23 mg/dL Creatinine 0.48 L 0.700-1.30 mg/dL Glomerular Filtration Rate Calc 113 >90 mL/min BUN/Creatinine Ratio 35.4 H 10.0-20.0 Serum Glucose 108 H 74-106 mg/dL Calcium Level 8.2 L 8.7-10.4 mg/dL Magnesium Level 2.0 1.6-2.6 mg/dL Total Bilirubin 0.5 0.2-1.0 mg/dL Aspartate Amino Transferase (AST) 289 H 13-40 U/L Alanine Aminotransferase (ALT) 458 H 7-40 U/L Alkaline Phosphatase 224 H 46-116 U/L Total Protein 6.0 5.7-8.2 g/dL Albumin 2.5 L 3.2-4.8 g/dL Erythrocyte Sedimentation Rate 129 H 0-20 mm/hr Differential Total Cells Counted 100.0 100 Neutrophils % (Manual) 77 37.0-80.0 Band Neutrophils % (Manual) 7 Lymphocytes % (Manual) 12 10.0-50.0 Monocytes % (Manual) 1 0-12 Eosinophils % (Manual) 2 0-7 Basophils % (Manual) 0 0.0-2.0 Metamyelocytes % (manual) 1 Myelocytes % (Manual) 0 Promyelocytes % (Manual) 0 Blast Cells % (Manual) 0 Reactive Lymphocytes 0 Platelet Estimate Decrea Large Platelets Few Reticulocyte Count (auto) 0.09 L 0.5-1.5 % Creatine Kinase 18 L 46-171 U/L Test 10/12/24 10:04 10/11/24 14:30 10/11/24 08:02 10/08/24 13:31 Range/Units Anisocytosis (manual) Slight Stool Occult Blood Negative Negative Stool Occult Blood Sample #3 Negative Vancomycin Level Trough 10.4 H 5-10 ug/mL Urine Color Dark yellow Yellow Urine Clarity Clear Clear Urine pH 6.0 5.0-9.0 Urine Specific [place] 1.024 1.001-1.035 Urine Protein 1+ H Negative Urine Ketones Negative Negative Urine Blood Negative Negative /uL Urine Nitrite Negative Negative Urine Bilirubin Negative Negative Urine Urobilinogen Normal Negative mg/dL Urine Leukocyte Esterase Negative Negative /uL Urine RBC 2 0 - 3 /hpf Urine Microscopic WBC 2 0-3 /HPF Urine Squamous Epithelial Cells Few <5 /hpf Urine Bacteria None seen None Seen /hpf Urine Mucus Few None Seen Urine Glucose Normal Normal mg/dL Test 10/08/24 09:11 10/08/24 07:12 Range/Units Lactic Acid Level 1.3 0.4-2.0 mmol/L Prothrombin Time 13.4 H 9.3-11.8 sec Prothrombin Time INR 1.30 H 0.9-1.15 Activated Partial Thromboplast Time 30.0 24.5-34.5 SEC Microbiology Date/Time Source Procedure Growth Status 10/09/24 15:48 Leg Right Gram Stain - Final Complete 10/09/24 15:48 Leg Right Wound Culture - Final Complete 10/08/24 07:12 Blood Blood Culture - Final NO GROWTH AFTER 5 DAYS OF INCUBATION. Complete Problems(with codes): (1) Hypokalemia (2) Fever (3) Shortness of breath (4) Dizziness (5) Anemia (6) Generalized weakness (7) Bipolar disorder (8) Syncope (9) Thrombocytopenia (10) Weakness (11) Head injury (12) Critical illness myopathy (13) Postoperative pain (14) Near syncope (15) Sepsis, unspecified organism (16) Swelling of right lower extremity (17) Severe anemia (18) Sepsis (19) Symptomatic anemia (20) Cellulitis of right lower extremity (21) Hypotension (22) MDS (myelodysplastic syndrome) (23) Fever, unspecified (24) History of prostate cancer (25) Severe sepsis with septic shock (26) Acute renal injury (27) Chest pain of unknown etiology Plan/Recommendation ASSESSMENT: Patient is a 69 year old seen on the floor for a worsening ulcer PLAN: - The patients chart was reviewed, clinical findings were discussed with the patient, the etiologies of the conditions were discussed in detail, and a treatment plan was agreed to at this time, with both oral and written instructions provided. - reviewed advanced imaging - wound appears to be stable at this point - they does not appear to be indicative of necrotizing fasciitis - no surgical intervention recommended - Orion Benz on the Achilles - follow up with me as an outpatient All questions were answered and concerns addressed to the patient's satisfaction. The patient was given the phone number to the clinic and was told how to make contact with the clinic should any concerns or questions arise. Patient understands that if any questions or concerns arise prior to the next appointment, we should be contacted immediately. FOLLOW-UP: Continue to follow while inpatient Plan discussed with: Patient Date of Service: Oct 15, 2024 Billing Provider: SERGEY MULLINS DPM Common Visit Codes: CONSULT ONLY Consultation Codes: [id number] CONSULT <80MIN SERGEY MULLINS DPM Oct 15, 2024 12:20
[2024-10-15] MEDS: VANCOMYCIN 1.5GM/300ML 300 ML IV SCH (12:21)
[2024-10-15] MEDS: SODIUM CHLORIDE 0.9% 1,000 ML IV ONE (13:15)
--- NOTE | 2024-10-15 13:24 | DVH ---
CLINICAL HISTORY: Edema TECHNIQUE: CT angiogram of the abdomen, pelvis and entire lower extremities was performed with during arterial phase and without intravenous contrast. 3D MIP reconstructed images were created and archi daniel on the PACS system. This exam was performed according to our departmental dose optimization progr am. Up-to-date CT equipment and radiation dose reduction techniques are utilized as appropriate. WID: COMPARISON: None FINDINGS: Arterial findings: Aorta-Branch Vessels: Unremarkable Right: Inflow: Mild calcific plaque within the iliac arteries. Outflow: Posterior plaque within the common femoral artery. Less than 50% stenosis at the origin of t he right proximal superficial femoral artery secondary to calcified plaque. Fundal femoral arteries p atent. The superficial femoral artery is patent. Atherosclerosis of the popliteal artery. Tibialis: Unremarkable Left: Inflow: Mild calcific plaque within iliac arteries. Outflow: Bulky plaque within the left common femoral artery with approximately 50% stenosis. Scattere d plaque within the superficial artery without significant stenosis. Popliteal arteries patent. Calci fic plaque within the tibioperineal trunk limiting assessment of the luminal diameter. Tibialis: Unremarkable Other findings: Large colonic and rectal stool burden. The small bowel is fecalization. The urinary bladder, kidneys, spleen, adrenal glands, pancreas, and imaged portions of the liver are unremarkable. Gallbladder is within normal limits. No acute osseus abnormality. Degenerative versus congenital fusion of L3-L4. There is diffuse generalized edema. There is severe right greater than left circumferential edema and skin thickening throughout the entirety of the extremity. There is effacement of the fat planes with in the gastrocnemius and soleus with extensive skin thickening involving an overlying the Achilles te ndon. overlying the achilles tendon. There is effacements of the muscles within the anterior compartm ent. IMPRESSION: 1. No acute mascular abnormality within the major vessels. Scattered plaque throughout the arterial s ystem bilaterally with approximately 50% left common femoral artery stenosis. 2. Severe right greater than left subcutaneous edema with skin thickening on a background of generali zed body wall edema. No obvious central venous compression or enlarged superficial veins to explain t he asymmetric edema. Correlate with history of lymphedema. 3. Extensive thickening and effacement of the achilles tendon and surrounding soft tissues within the posterior and medial calf. Correlate with patient's surgical history or infectious history. There is generalized atrophy and edema within the muscles of the right calf which may be seen with myositis o r other etiology. Please refer to MRI from 10/10/24 for additional details.
[2024-10-15 17:59] LABS: Hematocrit 23.1 % (41.0-53.0); Hemoglobin 8.1 g/dL (13.5-17.5)
--- NOTE | 2024-10-15 18:05 | DVHCONRES ---
Date Seen: Oct 15, 2024 Resident Creating Document: LANNY CASON Jr., MD Referring Physician icu Reason for Consultation cellulitis History of Present Illness 69-year-old male with past medial history of myelodysplastic syndrome, prostate cancer status post resection, COPD, schizophrenia, hypotension, and previous admissions for severe anemia due to myelodysplastic syndrome who presented to the emergency department with a chief complaint of dizziness. Patient states he has been feeling weak for a couple days. Patient is seen here frequently for blood transfusions. He has been losing weight and continues to lose weight. He states he does not feel hungry. Last admission, earlier this month, the patient was transferred to [place] for higher level of care due to chronic right leg cellulitis. He was transferred for possible surgical intervention after a CT of right leg with contrast showed possible necrotizing fasciitis. Patient's right leg continues to have worsening edema and now multiple draining wounds. Chest X- ray shows multifocal Patient has been currently in ICU with right leg swelling responding well to antibiotics no open wounds currently. However still on some pressors. Asked today to see if there is any drainable abscesses. Past Medical History myelodysplastic syndrome, prostate cancer status post resection, COPD, schizophrenia, hypotension, Past Surgical History See list Family History: Diabetes mellitus G8 MOTHER, Onset:60 years & older FH: heart attack G8 FATHER, , Onset:60 years & older Allergies: Coded Allergies: NO KNOWN ALLERGIES (Unverified , 12/04/23) Home Meds Active Scripts Midodrine Hcl (Midodrine Hcl) 10 Mg Tab, 10 MG PO TID for 30 Days, #90 TAB 3 Refills Prov:YOANDY SALAS DYE PADDER OPERATOR 06/06/24 Reported Medications Aspirin (Aspirin Low Dose) 81 Mg Tab, 1 TAB PO DAILY 09/03/24 Furosemide (Furosemide) 40 Mg Tab, 1 TAB PO DAILY 07/02/24 Risperidone (Risperidone) 2 Mg Tab, 2 MG PO BID, TAB 12/05/23 Mirtazapine (Mirtazapine Oral Disintegrating Tablet) 45 Mg Tab, 1 TAB PO QPM, #30 TAB 1 Refill 12/05/23 Melatonin (KP MELATONIN) 3 Mg Tab, 3 MG PO HS, TAB 12/05/23 Gabapentin (Gabapentin) 600 Mg Tab, 600 MG PO BID, TAB 12/05/23 Fluticasone Furoate (Inhalatio (Arnuity Ellipta) 200 Mcg/Act Inh, 200 MCG IN, INHALER 12/05/23 Atorvastatin Calcium (ATORVASTATIN CALCIUM) 40 Mg Tab, 1 TAB PO DAILY, #30 TAB 5 Refills 12/05/23 Albuterol Sulfate (VENTOLIN MDI) 90 Mcg Ih, 90 MCG IN, INH 12/05/23 Current Medications Current Medications Medications (Trade) Dose Ordered Sig/Fabricio Route PRN Reason Start Time Stop Time Status Last Admin Norepinephrine Bitartrate 250 ml @ 3.75 mls/hr Q24H IV 10/14/24 19:30 10/14/24 08:57 Enteral Nutritional Formula (Ensure High Protein) 240 ml TIDWM PO 10/15/24 12:00 10/15/24 12:11 Vancomycin HCl 300 ml @ 200 mls/hr Q12H IV 10/15/24 12:00 10/15/24 12:21 Review of Systems All systems reviewed otherwise negative other than what is in HPI. Vital Signs Vital Signs Date Time Temp Pulse Resp B/P (MAP) Pulse Ox O2 Delivery O2 Flow Rate FiO2 10/15/24 17:23 116/61 10/15/24 17:01 115 10/15/24 16:00 20 96 Nasal Cannula* 4 36 10/15/24 14:00 100.4 100.4 Physical Exam Right leg slightly more swollen than the left. Some area of induration in the posterior thigh closer to the groin area. No tenderness. No drainage noted. Patient was also evaluated by Dr. Bell which was at the bedside same time. We will defer to him regarding the foot and ankle. Palpable pedal pulse. Labs/Diagnostic Data Labs Test 10/15/24 17:00 10/15/24 09:45 10/15/24 02:56 10/14/24 03:24 Range/Units Random Vancomycin Level 13.5 H 5-10 ug/mL White Blood Count 7.0 4.4-10.8 10^3/uL Red Blood Count 2.31 L 4.5-5.90 10^6/uL Mean Corpuscular Volume 85.8 80.0-100.0 fL Mean Corpuscular Hemoglobin 29.7 28.0-32.0 pg Mean Corpuscular Hemoglobin Concent 34.6 32.0-36.0 g/dL Red Cell Distribution Width 14.7 H 11.8-14.3 % Platelet Count 26 L 140-450 10^3/uL Mean Platelet Volume 10.1 6.9-10.8 fL Neutrophils (%) (Auto) 86.1 H 37.0-80.0 % Lymphocytes (%) (Auto) 7.9 L 10.0-50.0 % Monocytes (%) (Auto) 3.1 0.0-12.0 % Eosinophils (%) (Auto) 2.0 0.0-7.0 % Basophils (%) (Auto) 0.9 0.0-2.0 % Neutrophils # (Auto) 6.0 1.6-8.6 10 ^3/uL Lymphocytes # (Auto) 0.6 0.4-5.4 10 ^3/uL Monocytes # (Auto) 0.2 0-1.3 10 ^3/uL Eosinophils # (Auto) 0.1 0-0.8 10 ^3/uL Basophils # (Auto) 0.1 0-0.2 10 ^3/uL Nucleated Red Blood Cells 0.1 % Sodium Level 135 L 136-145 mmol/L Potassium Level 4.0 3.5-5.1 mmol/L Chloride Level 104 98-107 mmol/L Carbon Dioxide Level 25 20-31 mmol/L Anion Gap 6 5-15 Blood Urea Nitrogen 17 9-23 mg/dL Creatinine 0.48 L 0.700-1.30 mg/dL Glomerular Filtration Rate Calc 113 >90 mL/min BUN/Creatinine Ratio 35.4 H 10.0-20.0 Serum Glucose 108 H 74-106 mg/dL Calcium Level 8.2 L 8.7-10.4 mg/dL Magnesium Level 2.0 1.6-2.6 mg/dL Total Bilirubin 0.5 0.2-1.0 mg/dL Aspartate Amino Transferase (AST) 289 H 13-40 U/L Alanine Aminotransferase (ALT) 458 H 7-40 U/L Alkaline Phosphatase 224 H 46-116 U/L Total Protein 6.0 5.7-8.2 g/dL Albumin 2.5 L 3.2-4.8 g/dL Erythrocyte Sedimentation Rate 129 H 0-20 mm/hr Test 10/13/24 04:35 10/12/24 10:04 10/11/24 14:30 10/11/24 08:02 Range/Units Differential Total Cells Counted 100.0 100 Neutrophils % (Manual) 77 37.0-80.0 Band Neutrophils % (Manual) 7 Lymphocytes % (Manual) 12 10.0-50.0 Monocytes % (Manual) 1 0-12 Eosinophils % (Manual) 2 0-7 Basophils % (Manual) 0 0.0-2.0 Metamyelocytes % (manual) 1 Myelocytes % (Manual) 0 Promyelocytes % (Manual) 0 Blast Cells % (Manual) 0 Reactive Lymphocytes 0 Platelet Estimate Decrea Large Platelets Few Reticulocyte Count (auto) 0.09 L 0.5-1.5 % Creatine Kinase 18 L 46-171 U/L Anisocytosis (manual) Slight Stool Occult Blood Negative Negative Stool Occult Blood Sample #3 Negative Vancomycin Level Trough 10.4 H 5-10 ug/mL Test 10/08/24 13:31 10/08/24 09:11 10/08/24 07:12 Range/Units Urine Color Dark yellow Yellow Urine Clarity Clear Clear Urine pH 6.0 5.0-9.0 Urine Specific [place] 1.024 1.001-1.035 Urine Protein 1+ H Negative Urine Ketones Negative Negative Urine Blood Negative Negative /uL Urine Nitrite Negative Negative Urine Bilirubin Negative Negative Urine Urobilinogen Normal Negative mg/dL Urine Leukocyte Esterase Negative Negative /uL Urine RBC 2 0 - 3 /hpf Urine Microscopic WBC 2 0-3 /HPF Urine Squamous Epithelial Cells Few <5 /hpf Urine Bacteria None seen None Seen /hpf Urine Mucus Few None Seen Urine Glucose Normal Normal mg/dL Lactic Acid Level 1.3 0.4-2.0 mmol/L Prothrombin Time 13.4 H 9.3-11.8 sec Prothrombin Time INR 1.30 H 0.9-1.15 Activated Partial Thromboplast Time 30.0 24.5-34.5 SEC Microbiology Date/Time Source Procedure Growth Status 10/09/24 15:48 Leg Right Gram Stain - Final Complete 10/09/24 15:48 Leg Right Wound Culture - Final Complete 10/08/24 07:12 Blood Blood Culture - Final NO GROWTH AFTER 5 DAYS OF INCUBATION. Complete TECHNIQUE: CT angiogram of the abdomen, pelvis and entire lower extremities was performed with during arterial phase and without intravenous contrast. 3D MIP reconstructed images were created and archived on the PACS system. This exam was performed according to our departmental dose optimization program. Up-to-date CT equipment and radiation dose reduction techniques are utilized as appropriate. WID: COMPARISON: None FINDINGS: Arterial findings: Aorta-Branch Vessels: Unremarkable Right: Inflow: Mild calcific plaque within the iliac arteries. Outflow: Posterior plaque within the common femoral artery. Less than 50% stenosis at the origin of the right proximal superficial femoral artery secondary to calcified plaque. Fundal femoral arteries patent. The superficial femoral artery is patent. Atherosclerosis of the popliteal artery. Tibialis: Unremarkable Left: Inflow: Mild calcific plaque within iliac arteries. Outflow: Bulky plaque within the left common femoral artery with approximately 50% stenosis. Scattered plaque within the superficial artery without significant stenosis. Popliteal arteries patent. Calcific plaque within the tibioperineal trunk limiting assessment of the luminal diameter. Tibialis: Unremarkable Other findings: Large colonic and rectal stool burden. The small bowel is fecalization. The urinary bladder, kidneys, spleen, adrenal glands, pancreas, and imaged portions of the liver are unremarkable. Gallbladder is within normal limits. No acute o sseus abnormality. Degenerative versus congenital fusion of L3-L4. There is diffuse generalized edema. There is severe right greater than left circumferential edema and skin thickening throughout the entirety of the extremity. There is effacement of the fat planes within the gastrocnemius and soleus with extensive skin thickening involving an overlying the Achilles tendon. overlying the achilles tendon. There is effacements of the muscles within the anterior compartment. IMPRESSION: 1. No acute mascular abnormality within the major vessels. Scattered plaque throughout the arterial system bilaterally with approximately 50% left common femoral artery stenosis. 2. Severe right greater than left subcutaneous edema with skin thickening on a background of generalized body wall edema. No obvious central venous compression or enlarged superficial veins to explain the asymmetric edema. Correlate with history of lymphedema. 3. Extensive thickening and effacement of the achilles tendon and surrounding soft tissues within the posterior and medial calf. Correlate with patient's surgical history or infectious history. There is generalized atrophy and edema within the muscles of the right calf which may be seen with myositis or other etiology. Please refer to MRI from 10/10/24 for additional details. Assessment Right leg swelling no obvious fluid collection on exam or CTA. Recommend continue medical management. Recommend elevating leg and possible Rigo wrap to control swelling Plan/Recommendation Right leg swelling no obvious fluid collection on exam or CTA. Recommend continue medical management. Recommend elevating leg and possible Rigo wrap to control swelling Plan discussed with: Patient LANNY CASON Jr., MD Oct 15, 2024 18:05
[2024-10-15] MEDS: SODIUM CHLORIDE 0.9% 500 ML IV ONE (18:30)
--- NOTE | 2024-10-15 19:13 | DVHPNRES ---
Progress Note Date Seen: Oct 15, 2024 Resident Creating Document: HOMAR FOSTER RESIDENT Medical Necessity Reason Pt with a Central, PICC or Fol: Yes The following are medically ne: Central Line (Right IJ TLC four IV vasopressors) Subjective Review of Systems HPI (as per hospitalist) A 69-year-old male patient with past medical history of COPD, hyperlipidemia, schizophrenia, prostate cancer status post radiation therapy, moderate dysplastic syndrome, stroke, BPH status post TURP, pancytopenia due to MDS presented with complaints of dizziness, fatigue, generalized weakness and leg swelling. Patient has been admitted multiple times to [facility] for dizziness due to symptomatic anemia for which she gets blood transfusion. Has been losing weight and appetite. Patient was recently in [facility] for management of cellulitis for which she was discharged with oral antibiotics.Last admission, earlier this month, the patient was transferred to [place] for higher level of care due to chronic right leg cellulitis. He was transferred for possible surgical intervention after a CT of right leg with contrast showed possible necrotizing fasciitis. Patient's right leg continues to have worsening edema and now multiple draining wounds. Medical history COPD, hyperlipidemia, schizophrenia, prostate cancer status post radiation therapy, moderate dysplastic syndrome, stroke, BPH status post TURP, pancytopenia due to MDS Surgical history Tonsillectomy, right CE and graft, multiple I and D's for I and D Medication history Aspirin, albuterol, statin, Lasix, gabapentin, midodrine, mirtazapine, risperidone, trilogy, melatonin Social history Smoker, no history of alcohol, marijuana or any other drug intake Lives with caregiver 10/14/2024 Patient is currently alert and oriented x3 but drowsy and does not respond to the questions; poor historian. Lives with caregiver, mentions pain and swelling in the right leg Currently on norepinephrine @ 6 cc/hour 10/15/24 pt is more alert and mentions no complaints except tenderness of right foot. on norepineophrine @ 8.5 cc/hr POCUS : IVC collapsing with respiration given IV fluids later norepinephrine @ 5cc/hr Objective vital signs Vital Sign Date Time Temp Pulse Resp B/P (MAP) Pulse Ox O2 Delivery O2 Flow Rate FiO2 10/15/24 18:29 118 18 99 10/15/24 18:21 Nasal Cannula 3.0 10/15/24 18:21 32 10/15/24 18:00 97/63 (74) 10/15/24 16:00 100.5 100.5 Total Intake and Output 10/14/24 10/14/24 10/15/24 15:00 23:00 07:00 Intake Total 445.00 ml 954.876 ml 308.753 ml Balance 445.00 ml 954.876 ml 308.753 ml medications Current Medications Medications Dose Ordered Sig/Fabricio Route Start Time Stop Time Status Last Admin Dose Admin Ondansetron HCl 4 mg Q4HP PRN IV 10/08/24 08:45 10/11/24 20:53 4 MG Docusate Sodium 100 mg BIDPRN PRN PO 10/08/24 08:45 Vancomycin HCl 0 ml @ 0 mls/hr UD IV 10/08/24 08:45 Piperacillin Sod/ Tazobactam Sod 100 ml @ 25 mls/hr Q8HR IV 10/08/24 14:00 10/15/24 14:45 25 MLS/HR Midodrine 10 mg TID PO 10/08/24 14:00 10/15/24 14:45 10 MG Patient Own Medication 1 tab DAILY PO 10/08/24 10:00 UNV Patient Own Medication 600 mg BID PO 10/08/24 10:00 UNV Patient Own Medication 2 mg BID PO 10/08/24 10:00 UNV Albuterol 2.5 mg Q6HWA [facility] 10/08/24 12:00 10/15/24 18:21 2.5 MG Ipratropium Warren 0.5 mg Q6HWA [facility] 10/08/24 12:00 10/15/24 18:21 0.5 MG Risperidone 2 mg BID PO 10/08/24 10:00 10/15/24 09:46 2 MG Ipratropium [place] 0.5 mg Q6HWA [facility] 10/08/24 18:00 UNV Albuterol 2.5 mg Q6HWA [facility] 10/08/24 18:00 UNV Norepinephrine Bitartrate 250 ml @ 3.75 mls/hr Q24H IV 10/14/24 19:30 10/14/24 08:57 15.938 MLS/HR Enteral Nutritional Formula 240 ml TIDWM PO 10/15/24 12:00 10/15/24 12:11 240 ML Vancomycin HCl 300 ml @ 200 mls/hr Q12H IV 10/15/24 12:00 10/15/24 12:21 200 MLS/HR Examination Examination General Appearance: Pale HEENT: EOMI Respiratory: Clear to auscultation, Normal air movement Cardiovascular: Regular rate, Normal S1, Normal S2 Abdominal: Normal bowel sounds Extremities: Right leg swelling and tenderness Skin: No rashes, No breakdown Neuro: Normal speech, tone, more alert POCUS Collapsed IVC Mild Pericardial Effusion laboratory and microbiology Laboratory Tests 10/15/24 17:00 10/15/24 02:56 Test 10/15/24 02:56 Range/Units Serum Glucose 108 H 74-106 mg/dL Microbiology Date/Time Source Procedure Growth Status 10/09/24 15:48 Leg Right Gram Stain - Final Complete 10/09/24 15:48 Leg Right Wound Culture - Final Complete 10/08/24 07:12 Blood Blood Culture - Final NO GROWTH AFTER 5 DAYS OF INCUBATION. Complete Labs and/or images reviewed: Labs reviewed by me, Image(s) reviewed by me Problem List/Assessment/Plan Problem List/Assessment/Plan Assessment/plan Neurology # Dizziness likely due to hypotension and symptomatic anemia -improved Currently on norepinephrine Cardiology # shock likely septic shock -we will discontinue Lasix -on midodrine keep MAP target of 60 was on norepineophrine @ 8.5 cc/hr POCUS : IVC collapsing with respiration given IV fluids later norepinephrine @ 5cc/hr # moderate pericardial effusion Seen on CT Possibly due to malignancy Mild pericardial Effusion on POCUS Will monitor #Hyperlipidemia -avoid statins elevated LFTs Respiratory # acute hypoxic respiratory failure likely due to possible pneumonia/lung masses Currently on 4 L Nebulization with ipratropium and albuterol #? Possible obstructive pneumonia in the setting of lung nodules CT chest shows-1. Multiple masses with irregular margins and air bronchograms, likely increased in size given previous description on CT chest Differential considerations remain similar, however tissue sampling is warranted to assess for possible malignancy. Bibasilar consolidation. -2. Mediastinal adenopathy -3. Moderate pericardial effusion Sputum culture Currently on vancomycin and Zosyn # possible lung malignancy, primary or secondary -as per CT scan CT chest shows-1. Multiple masses with irregular margins and air bronchograms, likely increased in size given previous description on CT chest Differential considerations remain similar, however tissue sampling is warranted to assess for possible malignancy. Bibasilar consolidation. -2. Mediastinal adenopathy -3. Moderate pericardial effusion Patient was scheduled to have lung biopsy, as per IR platelet count need to be greater than 50 for lung biopsy # mediastinal lymphadenopathy -likely due to pneumonia/lung masses # COPD, stable Nebulization with ipratropium and albuterol PRN Hematology/Oncology # Myelodysplastic syndrome -patient follows up with [facility] history of pancytopenia #anemia due to MDS s/p transfusion Transfusion to keep hemoglobin greater than seven today HB 6.9 transfused with 1 more unit of PRBC # thrombocytopenia due to MDS -platelet count 71260 #Protein deficient malnutrition/moderate -low albumin ensure protein GI # Transaminitis likely due to sepsis Hepatomegaly and cholelithiasis seen on ultrasound Infectious Disease # Sepsis with septic shock due to right lower leg cellulitis and pyomyositis -currently on vancomycin and Zosyn -ID on board -Wound culture -Blood culture -Lactic acid improved MSK #Cellulitis with pyomyositis of left lower leg #Achilles tendinopathy and peritendinitis # lateral hindfoot impingement # 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 - reviewed advanced imaging - wound appears to be stable at this point - they does not appear to be indicative of necrotizing fasciitis - no surgical intervention recommended - Medihoney Adaptic gauze Kerlix on the Achilles - follow up with me as an outpatient Surgeon consultation : Right leg swelling no obvious fluid collection on exam or CTA. Recommend continue medical management. Recommend elevating leg and possible Rigo wrap to control swelling Abdominal angiography : 1. No acute mascular abnormality within the major vessels. Scattered plaque throughout the arterial system bilaterally with approximately 50% left common femoral artery stenosis. 2. Severe right greater than left subcutaneous edema with skin thickening on a background of generalized body wall edema. No obvious central venous compression or enlarged superficial veins to explain the asymmetric edema. Correlate with history of lymphedema. 3. Extensive thickening and effacement of the achilles tendon and surrounding soft tissues within the posterior and medial calf. Correlate with patient's surgical history or infectious history. There is generalized atrophy and edema within the muscles of the right calf which may be seen with myositis or other etiology. Please refer to MRI from 10/10/24 for additional details. Psychiatry # schizophrenia Currently on risperidone Urology #history of prostate cancer status post radiation therapy #BPH status post TURP Diet Regular diet Lines Right IJ CVC 10/08/24 Bowel Regimen Colace DVT prophylaxis -SCD avoid Lovenox because of low platelets Critical care time excluding procedures of 60 minutes Case discussion with Dr. Scales Plan discussed with: Patient, Other (Nurse) My Orders My Orders Orders - HOMAR FOSTER RESIDENT Procedure Category Date Status Time Norepinephrine 8 PHA 10/14/24 In Process Mg/250ml Kit 19:30 Respiratory Culture REBECA 10/15/24 In Process W/ Gs 07:49 Nutritional PHA 10/15/24 In Process Supplements (Ensure 12:00 * Surgical Consult CONS 10/15/24 Transmitted Sodium Chloride 0.9% PHA 10/15/24 In Process 18:30 Dietary Evaluation Review Recommendations by RD: Increase Calorie Intake Comments: Pt meets criteria for Moderate Protein-Calorie Malnutrition in the setting of chronic illness based on wt loss 6.3kg/8.0% in 6 month and mild fluid accumulation to right LE. Nutrition Recommendation 1) Ensure Enlive 240ml TID 2) Monitor wt trend, I/O, lab values, PO intake Expected Outcomes/Goals: To gain/maintain wt Intake to meet at least 75% estimated needs FU 3-5 days Interpretation of weight loss: up to 10% in 6 months Fluid Accumulation (Non Severe: Mild fluid retention Protein Calorie Malnutrition: Non-Severe Is there a minimum of two crit: Yes Critical Care Time (mins): 60 CC Plasma Assessment Blood Product Administration S: 0005 Addendum Addendum Addendum I was physically present for the goldstein portions of the service provided to patient by THE RESIDENT. I have reviewed the documentation, discussed the case with resident and agree with the resident's documentation except as noted. Also the patient's clinical case was discussed with the patient's nurse. This medical document was created using an electronic medical record system with computerized dictation system. Although this document has been carefully reviewed, there might still be some phonetic and typographical errors. These areas are purely typographical due to imperfections of the software programs, and do not reflect any compromise in the patient's medical care. Late signature. Date of Service: Oct 15, 2024 Billing Provider: ALLAN SCALES MD Common Visit Codes: [id number] CARE 30-74 MIN (60 minutes) HOMAR FOSTER Oct 15, 2024 19:13 ALLAN SCALES MD Oct 16, 2024 14:34
[2024-10-16] VITALS (101 sets, daily range): BP systolic 83–110; BP diastolic 42–62; PULSE 89–126; RESP 13–33; TEMP 98.5–100.8; O2SAT 92–100
[2024-10-16 04:17] LABS: Hemoglobin 7.4 g/dL (13.5-17.5)
[2024-10-16 04:20] LABS: Anion Gap 6 (5-15); BUN/Creatinine Ratio 35.0 (10.0-20.0); Blood Urea Nitrogen 14 mg/dL (9-23); Carbon Dioxide 24 mmol/L (20-31); Chloride 102 mmol/L (98-107); Glucose 83 mg/dL (74-106); Magnesium 2.0 mg/dL (1.6-2.6); Potassium 3.8 mmol/L (3.5-5.1); Total Protein 5.9 g/dL (5.7-8.2)
[2024-10-16 04:21] LABS: Bilirubin, Total 0.8 mg/dL (0.2-1.0)
[2024-10-16 04:22] LABS: Hematocrit 21.3 % (41.0-53.0); Mean Corpuscular Hemoglobin 30.4 pg (28.0-32.0); Mean Corpuscular Volume 87.8 fL (80.0-100.0); Nucleated Red Blood Cells % 0.0 %
[2024-10-16 04:34] LABS: Alanine Aminotransferase 391 U/L (7-40); Albumin 2.4 g/dL (3.2-4.8); Alkaline Phosphatase 193 U/L (46-116); Calcium 8.2 mg/dL (8.7-10.4); Sodium 132 mmol/L (136-145)
[2024-10-16] MEDS: HYDROcodone-ACET 5/325MG TAB PO ONE (06:13)
[2024-10-16] MEDS: SODIUM CHLORIDE 0.9% 500 ML IV ONE ×3 (09:03→13:34)
--- NOTE | 2024-10-16 09:56 | DVHPNRES ---
Progress Note Date Seen: Oct 16, 2024 Resident Creating Document: HOMAR FOSTER RESIDENT Medical Necessity Reason Pt with a Central, PICC or Fol: Yes The following are medically ne: Central Line (Right IJ TLC for IV vasopressors) Subjective Review of Systems HPI (as per hospitalist) A 69-year-old male patient with past medical history of COPD, hyperlipidemia, schizophrenia, prostate cancer status post radiation therapy, moderate dysplastic syndrome, stroke, BPH status post TURP, pancytopenia due to MDS presented with complaints of dizziness, fatigue, generalized weakness and leg swelling. Patient has been admitted multiple times to [facility] for dizziness due to symptomatic anemia for which she gets blood transfusion. Has been losing weight and appetite. Patient was recently in [facility] for management of cellulitis for which she was discharged with oral antibiotics.Last admission, earlier this month, the patient was transferred to [place] for higher level of care due to chronic right leg cellulitis. He was transferred for possible surgical intervention after a CT of right leg with contrast showed possible necrotizing fasciitis. Patient's right leg continues to have worsening edema and now multiple draining wounds. Medical history COPD, hyperlipidemia, schizophrenia, prostate cancer status post radiation therapy, moderate dysplastic syndrome, stroke, BPH status post TURP, pancytopenia due to MDS Surgical history Tonsillectomy, right CE and graft, multiple I and D's for I and D Medication history Aspirin, albuterol, statin, Lasix, gabapentin, midodrine, mirtazapine, risperidone, trilogy, melatonin Social history Smoker, no history of alcohol, marijuana or any other drug intake Lives with caregiver 10/14/24 Patient is currently alert and oriented x3 but drowsy and does not respond to the questions; poor historian. Lives with caregiver, mentions pain and swelling in the right leg Currently on norepinephrine @ 6 cc/hour 10/15/24 pt is more alert and mentions no complaints except tenderness of right foot. on norepinephrine @ 8.5 cc/hr POCUS : IVC collapsing with respiration given IV fluids later norepinephrine @ 5cc/hr 10/16/24 on norepinephrine @ 5.5 cc/hr POCUS : IVC collapsing with respiration no new complaints Objective vital signs Vital Sign Date Time Temp Pulse Resp B/P (MAP) Pulse Ox O2 Delivery O2 Flow Rate FiO2 10/16/24 09:44 96/52 10/16/24 08:00 106 13 97 Nasal Cannula* 3 32 10/16/24 04:00 100.0 100.0 Total Intake and Output 10/15/24 10/15/24 10/16/24 15:00 23:00 07:00 Intake Total 923.753 ml 1066.876 ml 527.50 ml Output Total 875 ml 120 ml Balance 923.753 ml 191.876 ml 407.50 ml medications Current Medications Medications Dose Ordered Sig/Fabricio Route Start Time Stop Time Status Last Admin Dose Admin Ondansetron HCl 4 mg Q4HP PRN IV 10/08/24 08:45 10/11/24 20:53 4 MG Docusate Sodium 100 mg BIDPRN PRN PO 10/08/24 08:45 Vancomycin HCl 0 ml @ 0 mls/hr UD IV 10/08/24 08:45 Piperacillin Sod/ Tazobactam Sod 100 ml @ 25 mls/hr Q8HR IV 10/08/24 14:00 10/16/24 06:11 25 MLS/HR Midodrine 10 mg TID PO 10/08/24 14:00 10/16/24 06:13 10 MG Patient Own Medication 1 tab DAILY PO 10/08/24 10:00 UNV Patient Own Medication 600 mg BID PO 10/08/24 10:00 UNV Patient Own Medication 2 mg BID PO 10/08/24 10:00 UNV Albuterol 2.5 mg Q6HWA [facility] 10/08/24 12:00 10/16/24 07:06 2.5 MG Ipratropium Bentley 0.5 mg Q6HWA [facility] 10/08/24 12:00 10/16/24 07:06 0.5 MG Risperidone 2 mg BID PO 10/08/24 10:00 10/16/24 09:46 2 MG Ipratropium [place] 0.5 mg Q6HWA [facility] 10/08/24 18:00 UNV Albuterol 2.5 mg Q6HWA [facility] 10/08/24 18:00 UNV Norepinephrine Bitartrate 250 ml @ 3.75 mls/hr Q24H IV 10/14/24 19:30 10/16/24 02:00 11.25 MLS/HR Enteral Nutritional Formula 240 ml TIDWM PO 10/15/24 12:00 10/16/24 08:28 240 ML Vancomycin HCl 300 ml @ 200 mls/hr Q12H IV 10/15/24 12:00 10/16/24 00:00 200 MLS/HR Examination Examination General Appearance: Pale HEENT: EOMI Respiratory: Clear to auscultation, Normal air movement Cardiovascular: Regular rate, Normal S1, Normal S2 Abdominal: Normal bowel sounds Extremities: Right leg swelling and tenderness Skin: No rashes, No breakdown Neuro: Normal speech, tone, more alert POCUS Collapsed IVC laboratory and microbiology Laboratory Tests 10/16/24 03:13 Test 10/16/24 03:13 Range/Units Serum Glucose 83 74-106 mg/dL Microbiology Date/Time Source Procedure Growth Status 10/09/24 15:48 Leg Right Gram Stain - Final Complete 10/09/24 15:48 Leg Right Wound Culture - Final Complete 10/08/24 07:12 Blood Blood Culture - Final NO GROWTH AFTER 5 DAYS OF INCUBATION. Complete Labs and/or images reviewed: Labs reviewed by me, Image(s) reviewed by me Problem List/Assessment/Plan Problem List/Assessment/Plan Assessment/plan Neurology # Dizziness likely due to hypotension and symptomatic anemia -improved Currently on norepinephrine Cardiology # shock likely septic shock -we will discontinue Lasix -on midodrine keep MAP target of 60 POCUS : IVC collapsing with respiration given IV fluids norepinephrine @ 5.5 cc/hr # moderate pericardial effusion Seen on CT Possibly due to malignancy Mild pericardial Effusion on POCUS Will monitor #Hyperlipidemia -avoid statins elevated LFTs Respiratory # acute hypoxic respiratory failure likely due to possible pneumonia/lung masses Currently on 4 L Nebulization with ipratropium and albuterol #? Possible obstructive pneumonia in the setting of lung nodules CT chest shows-1. Multiple masses with irregular margins and air bronchograms, likely increased in size given previous description on CT chest Differential considerations remain similar, however tissue sampling is warranted to assess for possible malignancy. Bibasilar consolidation. -2. Mediastinal adenopathy -3. Moderate pericardial effusion Sputum culture Currently on vancomycin and Zosyn # possible lung malignancy, primary or secondary -as per CT scan CT chest shows-1. Multiple masses with irregular margins and air bronchograms, likely increased in size given previous description on CT chest Differential considerations remain similar, however tissue sampling is warranted to assess for possible malignancy. Bibasilar consolidation. -2. Mediastinal adenopathy -3. Moderate pericardial effusion Patient was scheduled to have lung biopsy, as per IR platelet count need to be greater than 50 for lung biopsy # mediastinal lymphadenopathy -likely due to pneumonia/lung masses # COPD, stable Nebulization with ipratropium and albuterol PRN Hematology/Oncology # Myelodysplastic syndrome -patient follows up with [facility] history of pancytopenia #anemia due to MDS s/p transfusion Transfusion to keep hemoglobin greater than seven today HB 7.4; received a total of four units of packed RBCs # thrombocytopenia due to MDS -platelet count 08544 #Protein deficient malnutrition/moderate -low albumin ensure protein GI # Transaminitis likely due to sepsis Hepatomegaly and cholelithiasis seen on ultrasound Infectious Disease # Sepsis with septic shock due to right lower leg cellulitis and pyomyositis -currently on vancomycin and Zosyn -ID on board -Wound culture -Blood culture -Lactic acid improved MSK #Cellulitis with pyomyositis of left lower leg #Achilles tendinopathy and peritendinitis # lateral hindfoot impingement # 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 - reviewed advanced imaging - wound appears to be stable at this point - they does not appear to be indicative of necrotizing fasciitis - no surgical intervention recommended - Medihoney Adaptic gauze Kerlix on the Achilles - follow up with me as an outpatient Surgeon consultation : Right leg swelling no obvious fluid collection on exam or CTA. Recommend continue medical management. Recommend elevating leg and possible Rigo wrap to control swelling Abdominal angiography : 1. No acute muscular abnormality within the major vessels. Scattered plaque throughout the arterial system bilaterally with approximately 50% left common femoral artery stenosis. 2. Severe right greater than left subcutaneous edema with skin thickening on a background of generalized body wall edema. No obvious central venous compression or enlarged superficial veins to explain the asymmetric edema. Correlate with history of lymphedema. 3. Extensive thickening and effacement of the Achilles tendon and surrounding soft tissues within the posterior and medial calf. Correlate with patient's surgical history or infectious history. There is generalized atrophy and edema within the muscles of the right calf which may be seen with myositis or other etiology. Please refer to MRI from 10/10/24 for additional details. Psychiatry # schizophrenia Currently on risperidone Urology #history of prostate cancer status post radiation therapy #BPH status post TURP Diet Regular diet Lines Right IJ CVC 10/08/24 Bowel Regimen Colace Code status full code, goals of care discussed with greater than 20 min DVT prophylaxis -SCD avoid Lovenox because of low platelets Critical care time excluding procedures of 55 minutes Case discussion with Dr. Scales Plan discussed with: Patient, Other (RN) My Orders My Orders Orders - HOMAR FOSTER RESIDENT Procedure Category Date Status Time Document Fluid Input KATIA 10/15/24 In Process And Outpu 19:14 Dietary Evaluation Review Recommendations by RD: Increase Calorie Intake Comments: Pt meets criteria for Moderate Protein-Calorie Malnutrition in the setting of chronic illness based on wt loss 6.3kg/8.0% in 6 month and mild fluid accumulation to right LE. Nutrition Recommendation 1) Ensure Enlive 240ml TID 2) Monitor wt trend, I/O, lab values, PO intake Expected Outcomes/Goals: To gain/maintain wt Intake to meet at least 75% estimated needs FU 3-5 days Interpretation of weight loss: up to 10% in 6 months Fluid Accumulation (Non Severe: Mild fluid retention Protein Calorie Malnutrition: Non-Severe Is there a minimum of two crit: Yes Critical Care Time (mins): 55 CC Plasma Assessment Blood Product Administration S: 0005 Addendum Addendum Addendum I was physically present for the goldstein portions of the service provided to patient by THE RESIDENT. I have reviewed the documentation, discussed the case with resident and agree with the resident's documentation except as noted. Also the patient's clinical case was discussed with the patient's nurse. This medical document was created using an electronic medical record system with computerized dictation system. Although this document has been carefully reviewed, there might still be some phonetic and typographical errors. These areas are purely typographical due to imperfections of the software programs, and do not reflect any compromise in the patient's medical care. Late signature. Date of Service: Oct 16, 2024 Billing Provider: ALLAN SCALES MD Common Visit Codes: [id number] CARE 30-74 MIN (55 minutes) HOMAR FOSTER RESIDENT Oct 16, 2024 09:56 ALLAN SCALES MD Oct 16, 2024 21:58
[2024-10-16] MEDS: ALBUMIN 25% 100 ML IV SCH (17:46)
[2024-10-16] MEDS: MIDODRINE HCL 10 MG TAB PO SCH (21:12)
[2024-10-16] MEDS: FUROSEMIDE 40 MG/4 ML VIAL IV ONE (21:37)
[2024-10-17] VITALS (105 sets, daily range): BP systolic 76–116; BP diastolic 38–65; PULSE 92–133; RESP 17–35; TEMP 98.3–100.7; O2SAT 90–100
[2024-10-17 04:19] LABS: Hematocrit 18.5 % (41.0-53.0); Mean Corpuscular Hemoglobin 30.0 pg (28.0-32.0); Mean Corpuscular Volume 87.1 fL (80.0-100.0); Nucleated Red Blood Cells % 0.1 %
[2024-10-17 04:21] LABS: Hemoglobin 6.4 g/dL (13.5-17.5)
[2024-10-17 04:24] LABS: Chloride 101 mmol/L (98-107)
[2024-10-17 04:25] LABS: Anion Gap 8 (5-15); Carbon Dioxide 25 mmol/L (20-31)
[2024-10-17 04:26] LABS: Calcium 8.1 mg/dL (8.7-10.4); Potassium 3.5 mmol/L (3.5-5.1); Sodium 134 mmol/L (136-145)
[2024-10-17 04:30] LABS: BUN/Creatinine Ratio 34.0 (10.0-20.0); Blood Urea Nitrogen 16 mg/dL (9-23); Glucose 84 mg/dL (74-106)
[2024-10-17 04:31] LABS: Magnesium 1.9 mg/dL (1.6-2.6)
--- NOTE | 2024-10-17 10:46 | DVH ---
EXAM: XY CHEST PORTABLE Indication: sob Technique: Single frontal view of the chest was obtained Comparison: XY CHEST PORTABLE on DOS: 10/12/24, XY CHEST XRAY 1 VIEW on DOS: 10/08/24, XY CHEST PORTABL E on DOS: 10/08/24, XY CHEST PORTABLE on DOS: 08/16/24, XY CHEST PORTABLE on DOS: 07/09/24 FINDINGS: Lines and Tubes: Right internal jugular central venous catheter tip is unchanged. Lungs: Diffuse multifocal consolidative opacities Pleura: No effusion. No pneumothorax. Cardiomediastinal contours: Unremarkable. Atherosclerotic vascular calcifications of the thoracic ao rta are noted. Bones: No acute osseous abnormality. IMPRESSION: No acute cardiopulmonary disease.
[2024-10-17] MEDS: CLINDAMYCIN 900MG IV 50 ML IV ONE (12:33)
[2024-10-17] MEDS: CLINDAMYCIN 900MG IV 50 ML IV SCH (14:52)
--- NOTE | 2024-10-17 20:07 | DVHPNRES ---
Progress Note Date Seen: Oct 17, 2024 Resident Creating Document: HOMAR FOSTER RESIDENT Medical Necessity Reason Pt with a Central, PICC or Fol: Yes The following are medically ne: Central Line (Right IJ TLC for IV vasopressors) Subjective Review of Systems HPI (as per hospitalist) A 69-year-old male patient with past medical history of COPD, hyperlipidemia, schizophrenia, prostate cancer status post radiation therapy, moderate dysplastic syndrome, stroke, BPH status post TURP, pancytopenia due to MDS presented with complaints of dizziness, fatigue, generalized weakness and leg swelling. Patient has been admitted multiple times to [facility] for dizziness due to symptomatic anemia for which she gets blood transfusion. Has been losing weight and appetite. Patient was recently in [facility] for management of cellulitis for which she was discharged with oral antibiotics.Last admission, earlier this month, the patient was transferred to [place] for higher level of care due to chronic right leg cellulitis. He was transferred for possible surgical intervention after a CT of right leg with contrast showed possible necrotizing fasciitis. Patient's right leg continues to have worsening edema and now multiple draining wounds. Medical history COPD, hyperlipidemia, schizophrenia, prostate cancer status post radiation therapy, moderate dysplastic syndrome, stroke, BPH status post TURP, pancytopenia due to MDS Surgical history Tonsillectomy, right CE and graft, multiple I and D's for I and D Medication history Aspirin, albuterol, statin, Lasix, gabapentin, midodrine, mirtazapine, risperidone, trilogy, melatonin Social history Smoker, no history of alcohol, marijuana or any other drug intake Lives with caregiver 10/14/24 Patient is currently alert and oriented x3 but drowsy and does not respond to the questions; poor historian. Lives with caregiver, mentions pain and swelling in the right leg Currently on norepinephrine @ 6 cc/hour 10/15/24 pt is more alert and mentions no complaints except tenderness of right foot. on norepinephrine @ 8.5 cc/hr POCUS : IVC collapsing with respiration given IV fluids later norepinephrine @ 5cc/hr 10/16/24 on norepinephrine @ 5.5 cc/hr POCUS : IVC collapsing with respiration no new complaints 10/17/2024 On norepinephrine at 2.5 cc/hour No active complaints On 2 L of oxygen through nasal cannula Will have family meeting tomorrow at 0930 discussed goals of care Objective vital signs Vital Sign Date Time Temp Pulse Resp B/P (MAP) Pulse Ox O2 Delivery O2 Flow Rate FiO2 10/17/24 19:10 115 21 99 10/17/24 19:02 Nasal Cannula 2.0 10/17/24 19:02 28 10/17/24 18:45 108/58 (75) 10/17/24 16:15 98.6 98.6 Total Intake and Output 10/16/24 10/16/24 10/17/24 15:00 23:00 07:00 Intake Total 2351.253 ml 1020.442 ml 935.629 ml Output Total 500 ml 1500 ml Balance 2351.253 ml 520.442 ml -564.371 ml medications Current Medications Medications Dose Ordered Sig/Fabricio Route Start Time Stop Time Status Last Admin Dose Admin Ondansetron HCl 4 mg Q4HP PRN IV 10/08/24 08:45 10/11/24 20:53 4 MG Docusate Sodium 100 mg BIDPRN PRN PO 10/08/24 08:45 Vancomycin HCl 0 ml @ 0 mls/hr UD IV 10/08/24 08:45 Piperacillin Sod/ Tazobactam Sod 100 ml @ 25 mls/hr Q8HR IV 10/08/24 14:00 10/17/24 14:52 25 MLS/HR Patient Own Medication 1 tab DAILY PO 10/08/24 10:00 UNV Patient Own Medication 600 mg BID PO 10/08/24 10:00 UNV Patient Own Medication 2 mg BID PO 10/08/24 10:00 UNV Albuterol 2.5 mg Q6HWA [facility] 10/08/24 12:00 10/17/24 19:02 2.5 MG Ipratropium [place] 0.5 mg Q6HWA [facility] 10/08/24 12:00 10/17/24 19:02 0.5 MG Risperidone 2 mg BID PO 10/08/24 10:00 10/17/24 09:40 2 MG Ipratropium [place] 0.5 mg Q6HWA [facility] 10/08/24 18:00 UNV Albuterol 2.5 mg Q6HWA [facility] 10/08/24 18:00 UNV Norepinephrine Bitartrate 250 ml @ 3.75 mls/hr Q24H IV 10/14/24 19:30 10/17/24 00:10 6.563 MLS/HR Enteral Nutritional Formula 240 ml TIDWM PO 10/15/24 12:00 10/17/24 18:22 240 ML Vancomycin HCl 300 ml @ 200 mls/hr Q12H IV 10/15/24 12:00 10/17/24 12:50 200 MLS/HR Midodrine 15 mg TID PO 10/16/24 22:00 10/17/24 14:53 15 MG Clindamycin Phosphate 50 ml @ 50 mls/hr Q8HR IV 10/17/24 14:00 10/17/24 14:52 50 MLS/HR Examination Examination General Appearance: Pale HEENT: EOMI Respiratory: Clear to auscultation, Normal air movement Cardiovascular: Regular rate, Normal S1, Normal S2 Abdominal: Normal bowel sounds Extremities: Right leg swelling and tenderness Skin: No rashes, No breakdown Neuro: Normal speech, tone, more alert laboratory and microbiology Laboratory Tests 10/17/24 03:48 Test 10/17/24 03:48 Range/Units Serum Glucose 84 74-106 mg/dL Microbiology Date/Time Source Procedure Growth Status 10/15/24 07:50 Sputum Gram Stain - Final Resulted 10/15/24 07:50 Sputum Respiratory Culture - Preliminary Resulted 10/09/24 15:48 Leg Right Gram Stain - Final Complete 10/09/24 15:48 Leg Right Wound Culture - Final Complete 10/08/24 07:12 Blood Blood Culture - Final NO GROWTH AFTER 5 DAYS OF INCUBATION. Complete Labs and/or images reviewed: Labs reviewed by me, Image(s) reviewed by me Problem List/Assessment/Plan Problem List/Assessment/Plan Assessment/plan Neurology # Dizziness likely due to hypotension and symptomatic anemia -improved Currently on norepinephrine Cardiology # shock likely septic shock -we will discontinue Lasix -on midodrine keep MAP target of 60 POCUS : IVC collapsing with respiration given IV fluids norepinephrine @ 2.5 cc/hour # moderate pericardial effusion Seen on CT Possibly due to malignancy Mild pericardial Effusion on POCUS Will monitor #Hyperlipidemia -avoid statins elevated LFTs Respiratory # acute hypoxic respiratory failure likely due to possible pneumonia/lung masses Currently on 4 L Nebulization with ipratropium and albuterol #? Possible obstructive pneumonia in the setting of lung nodules CT chest shows-1. Multiple masses with irregular margins and air bronchograms, likely increased in size given previous description on CT chest Differential considerations remain similar, however tissue sampling is warranted to assess for possible malignancy. Bibasilar consolidation. -2. Mediastinal adenopathy -3. Moderate pericardial effusion Sputum culture Currently on vancomycin and Zosyn # possible lung malignancy, primary or secondary -as per CT scan CT chest shows-1. Multiple masses with irregular margins and air bronchograms, likely increased in size given previous description on CT chest Differential considerations remain similar, however tissue sampling is warranted to assess for possible malignancy. Bibasilar consolidation. -2. Mediastinal adenopathy -3. Moderate pericardial effusion Patient was scheduled to have lung biopsy, as per IR platelet count need to be greater than 50 for lung biopsy # mediastinal lymphadenopathy -likely due to pneumonia/lung masses # COPD, stable Nebulization with ipratropium and albuterol PRN Hematology/Oncology # Myelodysplastic syndrome -patient follows up with [facility] history of pancytopenia #anemia due to MDS s/p transfusion Transfusion to keep hemoglobin greater than seven today HB 6.9 transfused with 1 more unit of PRBC # thrombocytopenia due to MDS -platelet count [id number] #Protein deficient malnutrition/moderate -low albumin ensure protein GI # Transaminitis likely due to sepsis Hepatomegaly and cholelithiasis seen on ultrasound Infectious Disease # Sepsis with septic shock due to right lower leg cellulitis and pyomyositis -currently on vancomycin and Zosyn -ID on board -Wound culture -Blood culture -Lactic acid improved MSK #Cellulitis with pyomyositis of left lower leg #Achilles tendinopathy and peritendinitis # lateral hindfoot impingement # 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 - reviewed advanced imaging - wound appears to be stable at this point - they does not appear to be indicative of necrotizing fasciitis - no surgical intervention recommended - Orion Adaptic gauze Kerlix on the Achilles - follow up with me as an outpatient Surgeon consultation : Right leg swelling no obvious fluid collection on exam or CTA. Recommend continue medical management. Recommend elevating leg and possible Rigo wrap to control swelling Abdominal angiography : 1. No acute muscular abnormality within the major vessels. Scattered plaque throughout the arterial system bilaterally with approximately 50% left common femoral artery stenosis. 2. Severe right greater than left subcutaneous edema with skin thickening on a background of generalized body wall edema. No obvious central venous compression or enlarged superficial veins to explain the asymmetric edema. Correlate with history of lymphedema. 3. Extensive thickening and effacement of the Achilles tendon and surrounding soft tissues within the posterior and medial calf. Correlate with patient's surgical history or infectious history. There is generalized atrophy and edema within the muscles of the right calf which may be seen with myositis or other etiology. Please refer to MRI from 10/10/24 for additional details. Psychiatry # schizophrenia Currently on risperidone Urology #history of prostate cancer status post radiation therapy #BPH status post TURP Diet Regular diet Lines Right IJ CVC 10/08/24 Bowel Regimen Colace Code status full code, goals of care discussed with greater than 20 min DVT prophylaxis -SCDs Avoid Lovenox because of low platelets We will Have a family meeting tomorrow at 0930 to discuss goals of care Critical care time excluding procedures of 55 minutes Case discussion with Dr. Scales Plan discussed with: Patient, Other My Orders My Orders Orders - HOMAR FOSTER RESIDENT Procedure Category Date Status Time Chest Portable XY 10/17/24 Resulted 07:59 Clindamycin 900mg Iv PHA 10/17/24 In Process (Cleocin Iv) 14:00 Dietary Evaluation Review Recommendations by RD: Increase Calorie Intake Comments: Pt meets criteria for Moderate Protein-Calorie Malnutrition in the setting of chronic illness based on wt loss 6.3kg/8.0% in 6 month and mild fluid accumulation to right LE. Nutrition Recommendation 1) Ensure Enlive 240ml TID 2) Monitor wt trend, I/O, lab values, PO intake Expected Outcomes/Goals: To gain/maintain wt Intake to meet at least 75% estimated needs FU 3-5 days Interpretation of weight loss: up to 10% in 6 months Fluid Accumulation (Non Severe: Mild fluid retention Protein Calorie Malnutrition: Non-Severe Is there a minimum of two crit: Yes Critical Care Time (mins): 55 CC Plasma Assessment Blood Product Administration S: 0005 Addendum Addendum Addendum I was physically present for the goldstein portions of the service provided to patient by THE RESIDENT. I have reviewed the documentation, discussed the case with resident and agree with the resident's documentation except as noted. Also the patient's clinical case was discussed with the patient's nurse. This medical document was created using an electronic medical record system with computerized dictation system. Although this document has been carefully reviewed, there might still be some phonetic and typographical errors. These areas are purely typographical due to imperfections of the software programs, and do not reflect any compromise in the patient's medical care. Late signature. Date of Service: Oct 17, 2024 Billing Provider: ALLAN SCALES MD Common Visit Codes: [id number] CARE 30-74 MIN (55 minutes) HOMAR FOSTER RESIDENT Oct 17, 2024 20:07 ALLAN SCALES MD Oct 18, 2024 11:33
[2024-10-18] VITALS (104 sets, daily range): BP systolic 84–114; BP diastolic 38–62; PULSE 101–126; RESP 18–38; TEMP 98.6–100.5; O2SAT 90–100
[2024-10-18 04:20] LABS: Chloride 103 mmol/L (98-107); Potassium 3.6 mmol/L (3.5-5.1)
[2024-10-18 04:21] LABS: Anion Gap 8 (5-15); Carbon Dioxide 23 mmol/L (20-31)
[2024-10-18 04:23] LABS: Hematocrit 20.1 % (41.0-53.0); Mean Corpuscular Hemoglobin 30.7 pg (28.0-32.0); Mean Corpuscular Volume 87.7 fL (80.0-100.0); Nucleated Red Blood Cells % 0.1 %
[2024-10-18 04:24] LABS: Hemoglobin 7.0 g/dL (13.5-17.5)
[2024-10-18 04:26] LABS: BUN/Creatinine Ratio 30.8 (10.0-20.0); Blood Urea Nitrogen 16 mg/dL (9-23); Glucose 97 mg/dL (74-106)
[2024-10-18 04:27] LABS: Magnesium 2.0 mg/dL (1.6-2.6)
[2024-10-18 04:35] LABS: Calcium 8.3 mg/dL (8.7-10.4); Sodium 134 mmol/L (136-145)
--- NOTE | 2024-10-18 07:02 | DVH ---
CHEST RADIOGRAPH Indication: sob Technique: Single frontal view of the chest was obtained Comparison: XY CHEST PORTABLE on DOS: 10/17/24 FINDINGS: Lines and Tubes: Right central venous catheter terminates in the superior vena cava. Lungs: [place] bilateral consolidations are unchanged. Pleura: No effusion. No pneumothorax. Cardiomediastinal contours: Unremarkable Bones: No acute osseous abnormality. IMPRESSION: 1. Bilateral confluent airspace consolidation similar to the prior study which may represent pneumoni a.
--- NOTE | 2024-10-18 10:08 | DVHPNRES ---
Progress Note Date Seen: Oct 18, 2024 Resident Creating Document: HOMAR FREY RESIDENT Medical Necessity Reason Pt with a Central, PICC or Fol: Yes The following are medically ne: Central Line (Right IJ TLC for IV vasopressors) Subjective Review of Systems HPI (as per hospitalist) A 69-year-old male patient with past medical history of COPD, hyperlipidemia, schizophrenia, prostate cancer status post radiation therapy, moderate dysplastic syndrome, stroke, BPH status post TURP, pancytopenia due to MDS presented with complaints of dizziness, fatigue, generalized weakness and leg swelling. Patient has been admitted multiple times to [facility] for dizziness due to symptomatic anemia for which she gets blood transfusion. Has been losing weight and appetite. Patient was recently in [facility] for management of cellulitis for which she was discharged with oral antibiotics.Last admission, earlier this month, the patient was transferred to [place] for higher level of care due to chronic right leg cellulitis. He was transferred for possible surgical intervention after a CT of right leg with contrast showed possible necrotizing fasciitis. Patient's right leg continues to have worsening edema and now multiple draining wounds. Medical history COPD, hyperlipidemia, schizophrenia, prostate cancer status post radiation therapy, moderate dysplastic syndrome, stroke, BPH status post TURP, pancytopenia due to MDS Surgical history Tonsillectomy, right CE and graft, multiple I and D's for I and D Medication history Aspirin, albuterol, statin, Lasix, gabapentin, midodrine, mirtazapine, risperidone, trilogy, melatonin Social history Smoker, no history of alcohol, marijuana or any other drug intake Lives with caregiver 10/14/24 Patient is currently alert and oriented x3 but drowsy and does not respond to the questions; poor historian. Lives with caregiver, mentions pain and swelling in the right leg Currently on norepinephrine @ 6 cc/hour 10/15/24 pt is more alert and mentions no complaints except tenderness of right foot. on norepinephrine @ 8.5 cc/hr POCUS : IVC collapsing with respiration given IV fluids later norepinephrine @ 5cc/hr 10/16/24 on norepinephrine @ 5.5 cc/hr POCUS : IVC collapsing with respiration no new complaints 10/17/2024 On norepinephrine at 2.5 No new complaints October 18, 2024 Patient is mentioning no active complaints Currently on norepinephrine at 4.5 cc/hour We had a family meeting with sister and brother in the presence of the patient. Goals of care were discussed and family is considering home hospice. Family will decide later. Objective vital signs Vital Sign Date Time Temp Pulse Resp B/P (MAP) Pulse Ox O2 Delivery O2 Flow Rate FiO2 10/18/24 08:43 98.9 117 31 106/49 98.9 10/18/24 07:27 100 10/18/24 07:19 Nasal Cannula 2.0 10/18/24 07:19 28 Total Intake and Output 10/17/24 10/17/24 10/18/24 15:00 23:00 07:00 Intake Total 1432.377 ml 994.066 ml 991.253 ml Output Total 1200 ml 1300 ml Balance 1432.377 ml -205.934 ml -308.747 ml medications Current Medications Medications Dose Ordered Sig/Fabricio Route Start Time Stop Time Status Last Admin Dose Admin Ondansetron HCl 4 mg Q4HP PRN IV 10/08/24 08:45 10/11/24 20:53 4 MG Docusate Sodium 100 mg BIDPRN PRN PO 10/08/24 08:45 Vancomycin HCl 0 ml @ 0 mls/hr UD IV 10/08/24 08:45 Piperacillin Sod/ Tazobactam Sod 100 ml @ 25 mls/hr Q8HR IV 10/08/24 14:00 10/18/24 05:55 25 MLS/HR Patient Own Medication 1 tab DAILY PO 10/08/24 10:00 UNV Patient Own Medication 600 mg BID PO 10/08/24 10:00 UNV Patient Own Medication 2 mg BID PO 10/08/24 10:00 UNV Albuterol 2.5 mg Q6HWA [facility] 10/08/24 12:00 10/18/24 07:19 2.5 MG Ipratropium [place] 0.5 mg Q6HWA [facility] 10/08/24 12:00 10/18/24 07:19 0.5 MG Risperidone 2 mg BID PO 10/08/24 10:00 10/17/24 21:44 2 MG Ipratropium [place] 0.5 mg Q6HWA [facility] 10/08/24 18:00 UNV Albuterol 2.5 mg Q6HWA [facility] 10/08/24 18:00 UNV Norepinephrine Bitartrate 250 ml @ 3.75 mls/hr Q24H IV 10/14/24 19:30 10/17/24 00:10 6.563 MLS/HR Enteral Nutritional Formula 240 ml TIDWM PO 10/15/24 12:00 10/17/24 18:22 240 ML Vancomycin HCl 300 ml @ 200 mls/hr Q12H IV 10/15/24 12:00 10/17/24 23:49 200 MLS/HR Midodrine 15 mg TID PO 10/16/24 22:00 10/18/24 05:55 15 MG Clindamycin Phosphate 50 ml @ 50 mls/hr Q8HR IV 10/17/24 14:00 10/18/24 04:37 50 MLS/HR Examination Examination General Appearance: Pale HEENT: EOMI Respiratory: Clear to auscultation, Normal air movement Cardiovascular: Regular rate, Normal S1, Normal S2 Abdominal: Normal bowel sounds Extremities: Right leg swelling and tenderness Skin: No rashes, No breakdown Neuro: Normal speech, tone, more alert laboratory and microbiology Laboratory Tests 10/18/24 03:06 Test 10/18/24 03:06 Range/Units Serum Glucose 97 74-106 mg/dL Microbiology Date/Time Source Procedure Growth Status 10/15/24 07:50 Sputum Gram Stain - Final Resulted 10/15/24 07:50 Sputum Respiratory Culture - Preliminary Resulted 10/09/24 15:48 Leg Right Gram Stain - Final Complete 10/09/24 15:48 Leg Right Wound Culture - Final Complete 10/08/24 07:12 Blood Blood Culture - Final NO GROWTH AFTER 5 DAYS OF INCUBATION. Complete Labs and/or images reviewed: Labs reviewed by me, Image(s) reviewed by me Problem List/Assessment/Plan Problem List/Assessment/Plan Assessment/plan Neurology # Dizziness likely due to hypotension and symptomatic anemia -improved Currently on norepinephrine Cardiology # shock likely septic shock -we will discontinue Lasix -on midodrine keep MAP target of 60 POCUS : IVC collapsing with respiration given IV fluids norepinephrine @ 2.5 cc/hour # moderate pericardial effusion Seen on CT Possibly due to malignancy Mild pericardial Effusion on POCUS Will monitor #Hyperlipidemia -avoid statins elevated LFTs Respiratory # acute hypoxic respiratory failure likely due to possible pneumonia/lung masses Currently on 4 L Nebulization with ipratropium and albuterol #? Possible obstructive pneumonia in the setting of lung nodules CT chest shows-1. Multiple masses with irregular margins and air bronchograms, likely increased in size given previous description on CT chest Differential considerations remain similar, however tissue sampling is warranted to assess for possible malignancy. Bibasilar consolidation. -2. Mediastinal adenopathy -3. Moderate pericardial effusion Sputum culture Currently on vancomycin and Zosyn # possible lung malignancy, primary or secondary -as per CT scan CT chest shows-1. Multiple masses with irregular margins and air bronchograms, likely increased in size given previous description on CT chest Differential considerations remain similar, however tissue sampling is warranted to assess for possible malignancy. Bibasilar consolidation. -2. Mediastinal adenopathy -3. Moderate pericardial effusion Patient was scheduled to have lung biopsy, as per IR platelet count need to be greater than 50 for lung biopsy # mediastinal lymphadenopathy -likely due to pneumonia/lung masses # COPD, stable Nebulization with ipratropium and albuterol PRN Hematology/Oncology # Myelodysplastic syndrome -patient follows up with [facility] history of pancytopenia #anemia due to MDS s/p transfusion Transfusion to keep hemoglobin greater than seven today HB 6.9 transfused with 1 more unit of PRBC # thrombocytopenia due to MDS -platelet count [id number] #Protein deficient malnutrition/moderate -low albumin ensure protein GI # Transaminitis likely due to sepsis Hepatomegaly and cholelithiasis seen on ultrasound Infectious Disease # Sepsis with septic shock due to right lower leg cellulitis and pyomyositis -currently on vancomycin and Zosyn -ID on board -Wound culture -Blood culture -Lactic acid improved MSK #Cellulitis with pyomyositis of left lower leg #Achilles tendinopathy and peritendinitis # lateral hindfoot impingement # 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 - reviewed advanced imaging - wound appears to be stable at this point - they does not appear to be indicative of necrotizing fasciitis - no surgical intervention recommended - Orion Benz on the Achilles - follow up with me as an outpatient Surgeon consultation : Right leg swelling no obvious fluid collection on exam or CTA. Recommend continue medical management. Recommend elevating leg and possible Rigo wrap to control swelling Abdominal angiography : 1. No acute mascular abnormality within the major vessels. Scattered plaque throughout the arterial system bilaterally with approximately 50% left common femoral artery stenosis. 2. Severe right greater than left subcutaneous edema with skin thickening on a background of generalized body wall edema. No obvious central venous compression or enlarged superficial veins to explain the asymmetric edema. Correlate with history of lymphedema. 3. Extensive thickening and effacement of the achilles tendon and surrounding soft tissues within the posterior and medial calf. Correlate with patient's surgical history or infectious history. There is generalized atrophy and edema within the muscles of the right calf which may be seen with myositis or other etiology. Please refer to MRI from 10/10/24 for additional details. Psychiatry # schizophrenia Currently on risperidone Urology #history of prostate cancer status post radiation therapy #BPH status post TURP Diet Regular diet Lines Right IJ CVC 10/08/24 Bowel Regimen Colace Code status full code DVT prophylaxis -SCDs; avoid Lovenox because of low platelets Family at bedside discussed about the condition of the patient and goals of care for 22 minutes. Patient and the family is now considering home hospice, will decide later. Family meeting was done with , Dr Frey ( resident) and nurse Ruthann. Critical care time excluding procedures of 90 minutes Case discussion with Dr. Scales Plan discussed with: Patient, Other (Nurse) My Orders My Orders Orders - HOMAR FREY RESIDENT Procedure Category Date Status Time Clindamycin 900mg Iv PHA 10/17/24 In Process (Cleocin Iv) 14:00 Chest Portable XY 10/18/24 Resulted 04:00 Dietary Evaluation Review Recommendations by RD: Increase Calorie Intake Comments: Pt meets criteria for Moderate Protein-Calorie Malnutrition in the setting of chronic illness based on wt loss 6.3kg/8.0% in 6 month and mild fluid accumulation to right LE. Nutrition Recommendation 1) Ensure Enlive 240ml TID 2) Monitor wt trend, I/O, lab values, PO intake Expected Outcomes/Goals: To gain/maintain wt Intake to meet at least 75% estimated needs FU 3-5 days Interpretation of weight loss: up to 10% in 6 months Fluid Accumulation (Non Severe: Mild fluid retention Protein Calorie Malnutrition: Non-Severe Is there a minimum of two crit: Yes Critical Care Time (mins): 90 CC Plasma Assessment Blood Product Administration S: 0005 Addendum Addendum Addendum I was physically present for the goldstein portions of the service provided to patient by THE RESIDENT. I have reviewed the documentation, discussed the case with resident and agree with the resident's documentation except as noted. Also the patient's clinical case was discussed with the patient's nurse. This medical document was created using an electronic medical record system with computerized dictation system. Although this document has been carefully reviewed, there might still be some phonetic and typographical errors. These areas are purely typographical due to imperfections of the software programs, and do not reflect any compromise in the patient's medical care. Late signature. Date of Service: Oct 18, 2024 Billing Provider: ALLAN SCALES MD Common Visit Codes: 97673-OVVAHWAU CARE 30-74 MIN (90 minutes), 53339-[id number] CARE-EACH +30MIN Secondary Visit Codes: 49597-SJROFJGO CARE PLAN 30 MINUTES (22 minutes) HOMAR FREY RESIDENT Oct 18, 2024 10:08 ALLAN SCALES MD Oct 18, 2024 11:38
[2024-10-18 10:36] LABS: Bilirubin, Total 1.0 mg/dL (0.2-1.0); Total Protein 6.1 g/dL (5.7-8.2)
[2024-10-18 10:42] LABS: Alanine Aminotransferase 242.0 U/L (7-40); Albumin 2.8 g/dL (3.2-4.8); Alkaline Phosphatase 212.0 U/L (46-116); Bilirubin, Direct 0.6 mg/dL (<0.3)
[2024-10-18 11:58] LABS: Hemoglobin 8.1 g/dL (13.5-17.5)
[2024-10-18 12:01] LABS: Hematocrit 23.7 % (41.0-53.0)
--- NOTE | 2024-10-18 16:40 | DVHPN2 ---
Consult Progress Note Date Seen: Oct 16, 2024 Subjective Patient reports: Other (fever curve continues to improve , pressers are coming down . tolerating antibioitcs . no diarrhea with 2 bowel movements in last 24hours . leg edemitis is grossly unchanged ) Objective vital signs Vital Sign Date Time Temp Pulse Resp B/P (MAP) Pulse Ox O2 Delivery O2 Flow Rate FiO2 10/18/24 16:22 111 10/18/24 16:22 26 94 Nasal Cannula* 2 28 10/18/24 15:45 98/52 (67) 10/18/24 12:00 98.9 98.9 Total Intake and Output 10/17/24 10/17/24 10/18/24 14:59 22:59 06:59 Intake Total 1429.565 ml 996.878 ml 995.941 ml Output Total 1200 ml 1300 ml Balance 1429.565 ml -203.122 ml -304.059 ml medications Current Medications Medications Dose Ordered Sig/Fabricio Route Start Time Stop Time Status Last Admin Dose Admin Ondansetron HCl 4 mg Q4HP PRN IV 10/08/24 08:45 10/11/24 20:53 4 MG Docusate Sodium 100 mg BIDPRN PRN PO 10/08/24 08:45 Vancomycin HCl 0 ml @ 0 mls/hr UD IV 10/08/24 08:45 Piperacillin Sod/ Tazobactam Sod 100 ml @ 25 mls/hr Q8HR IV 10/08/24 14:00 10/18/24 14:23 25 MLS/HR Patient Own Medication 1 tab DAILY PO 10/08/24 10:00 UNV Patient Own Medication 600 mg BID PO 10/08/24 10:00 UNV Patient Own Medication 2 mg BID PO 10/08/24 10:00 UNV Albuterol 2.5 mg Q6HWA [facility] 10/08/24 12:00 10/18/24 12:15 2.5 MG Ipratropium [place] 0.5 mg Q6HWA [facility] 10/08/24 12:00 10/18/24 12:15 0.5 MG Risperidone 2 mg BID PO 10/08/24 10:00 10/18/24 10:22 2 MG Ipratropium [place] 0.5 mg Q6HWA [facility] 10/08/24 18:00 UNV Albuterol 2.5 mg Q6HWA [facility] 10/08/24 18:00 UNV Norepinephrine Bitartrate 250 ml @ 3.75 mls/hr Q24H IV 10/14/24 19:30 10/18/24 14:49 8.438 MLS/HR Enteral Nutritional Formula 240 ml TIDWM PO 10/15/24 12:00 10/18/24 12:25 240 ML Vancomycin HCl 300 ml @ 200 mls/hr Q12H IV 10/15/24 12:00 10/18/24 12:25 200 MLS/HR Midodrine 15 mg TID PO 10/16/24 22:00 10/18/24 14:23 15 MG Clindamycin Phosphate 50 ml @ 50 mls/hr Q8HR IV 10/17/24 14:00 10/18/24 14:23 50 MLS/HR Physical Exam: General: NAD Neck: Supple. No masses. HEENT: PERRL. Normal lids and conjunctiva. Moist mucous membranes. Oropharynx without lesions, exudates or excessive erythema. Normal appearance of the external aspects of the nose and ears. Heart: Regular rhythm, normal rate. No murmur. No lower extremity edema (replace with: profound right lower extremity 4+ edema). Lungs: Normal respiratory effort. Clear to auscultation bilaterally. No wheezes. No crackles. Abdomen: Soft. Non-tender. Non-distended. No masses or abdominal hernia. Msk: Right leg: profound, non-tender 4+ pitting edema; purulent ulcer on inferior villarreal and posterior ankle. No digital cyanosis. Normal strength and tone in all other limbs. Skin: Warm and dry except right leg; draining purulent ulcers inferior villarreal and posterior ankle. Neuro: Alert. No facial droop or slurred speech. Extra-ocular movements intact. Sensation intact to soft touch in all 4 limbs. Psych: Flat affect. Oriented to person, place, time, and situation. laboratory and microbiology Laboratory Tests 10/18/24 11:20 10/18/24 03:06 Test 10/18/24 03:06 Range/Units Serum Glucose 97 74-106 mg/dL Problem List/Assessment/Plan Problems(with codes): (1) Severe anemia (2) Swelling of right lower extremity (3) Sepsis, unspecified organism (4) Cellulitis of right lower extremity (5) Near syncope (6) Postoperative pain Problem List/Assessment/Plan ASSESSMENT AND PLAN: ID Problem List: \-- Chronic myelodysplastic syndrome with recurrent anemia \-- Prostate cancer \-- COPD (post-resection) \-- Chronic hypertension \-- Schizophrenia \-- Chronic right lower extremity edema, recurrent cellulitis, draining ulcer \-- Septic shock (presumed) \-- Multifocal pneumonia Assessment Mr. Eugene Alejandro is a 69-year-old male with a history of myelodysplastic syndrome (recurrent anemia requiring weekly transfusions), prostate cancer, COPD (post-resection), hypertension on midodrine, and schizophrenia, who presents with weakness, dizziness, weight loss, poor oral intake, and worsening right lower extremity edema. Notable for new purulent drainage from both his posterior ankle and inferior villarreal and gross 4+ right leg edema. Patient denies leg pain. Noted flat affect, not eating. Past transfer to [place] for possible surgical evaluation based on CT evidence of muscle abscess/necrotizing fasciitis, though no acute surgery was indicated. At present, the patient remains hemodynamically unstable, requiring vasopressor support (levophed 16 mcg), and has evidence of septic shock (fever, hypotension, tachycardia, leukocytosis not present but anemia present, lactate 2.6, and ongoing purulent drainage of right LE ulcer presumed infectious). Imaging shows multifocal pneumonia (diffuse airspace disease). Right lower extremity exam: Massively edematous, non-tender, with 4+ edema and draining purulent ulcer lateral villarreal and posterior ankle. Current antibiotic regimen is vancomycin and cefepime pending cultures. Last Hb 8.7 after transfusion (matt 7.3). Patient is also severely hypertensive at baseline, unclear etiology of persistent relative hypotension, likely secondary to sepsis. 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 no organisms seen on gram stain 10/11: liver enzymes are elevated , likely related to ischemic hepatopathy , however would rule out any underlying HIV or hepatitis 10/12: congestion as seen in the lungs , leg is still edemitis as well but only on the right leg , otherwise appears intervascularly dry . fever curve is stable with high fever at 102.2 10/13: hemoglobin is 6.9 , requiring a blood transfusion . blood transfusion may be resulting in lung congestion and consolidations 10/14: liver enzymes are slowly improving and awaiting surgical evaluation of patients leg 10/15: angiography was done and showed extensive thickening of Achilles tendon and surrounding soft tissues with posterior medial calf to correlate with patients surgical history . theres generalized atrophy and edema within the muscles of the right calf which may be seen in myositis or other etiology . severes right greater than left subcutaneous edea with skin thickening in the background as well as body wall edema , unclear if myositis is truly infectious in etiology since patient does not have a clear open wound directly at the site of the muscular atrophy . pyomyositis on R leg on MRI hb intermittently dropping vancomycin trough therapuetic Chest CT w/ Right upper lobe mass measures 5.4 x 5.0 cm 2 masses in the left upper lobe measure 3.4 x 3.3 cm and 3.1 x 2.6 cm. Right lower lobe mass measures 2.7 x 2.3 cm and additional pleural based medial apical mass measures 2.0 x 1.5 cm. Bibasilar consolidation is present with possible more masslike area in the left lower lobe measuring 4.8 x 4.7 cm. There are air bronchograms within these masses, irregular margins, and some surrounding ground-glass opacities. There are areas of subpleural pulmonary fibrosis in the upper lobes. There are prominent mediastinal lymph nodes measuring up to 1.3 cm in short axis 10/16: hypoxic needs continue to go up , suspect related to recurrent blood trnasfusions . consider fever and myositis as a sequela of myelodysplastic syndrome from patients underlying malignancy Plan: - if patient fails to respond to antibiotic therapy and remains persistently in shock may require reevaluation of goals of care given patient is both transfusion dependent and presser dependent - consider the addition of clindamycin empirically to see if it will help with necrosis and overall septic picture - screen for hepatitis A,B, and C - check HIV status - check LFTs daily - continue mitadrine TID - defer to surgery on need for debridement - f/u on blood and wound cultures - increase vancomycin troth to 15-20 - defer to primary team for management of myelodysplastic syndrome and transfusions for hemoglobins under 7 - consider surgical consult for pyomyositis when more clinically stable. - recommend hematology/oncology and pulmonology involvement for R lung masses in setting of known prostate cancer and myelodysplastic syndrome - Hb>7, plts>100 goal - vasopressors to keep maps >65 \-- Continue empiric vancomycin and zosyn \-- Blood, sputum and wound cultures pending; recommend obtaining superficial wound culture from draining right lower extremity ulcer \-- MRI right lower extremity to further evaluate suspected muscle abscess/necrotizing infection \-- Continue vasopressor support (levophed), goal MAP > 65 \-- IV fluids as tolerated \-- Monitor for improvement/worsening of sepsis/shock \-- Continue blood transfusions as per hematology/primary; most recent Hgb 8.7 \-- Not recommended to diurese at present due to hemodynamics and ongoing sepsis/shock \-- Monitor oxygenation, continue supportive care including 2L nasal cannula \-- Ongoing care for schizophrenia as per psychiatry recommendations \-- Monitor laboratory markers and adjust antibiotics if indicated based on cultures Isolation Precautions: standard Authorized and Performed by: paola wilson Total critical care time: Approximately 76 minutes Due to a high probability of clinically significant, life threatening deterioration, the patient required my highest level of preparedness to intervene emergently and I personally spent this critical care time directly and personally managing the patient. This critical care time included obtaining a history; examining the patient; pulse oximetry; ordering and review of studies; arranging urgent treatment with development of a management plan; evaluation of patient's response to treatment; frequent reassessment; and, discussions with other providers. This critical care time was performed to assess and manage the high probability of imminent, life-threatening deterioration that that could result in multi- organ failure. It was exclusive of separately billable procedures and treating other patients and teaching time. Plan discussed with: Patient Dietary Evaluation Review Recommendations by RD: Increase Calorie Intake Comments: Pt meets criteria for Moderate Protein-Calorie Malnutrition in the setting of chronic illness based on wt loss 6.3kg/8.0% in 6 month and mild fluid accumulation to right LE. Nutrition Recommendation 1) Ensure Enlive 240ml TID 2) Monitor wt trend, I/O, lab values, PO intake Expected Outcomes/Goals: To gain/maintain wt Intake to meet at least 75% estimated needs FU 3-5 days Interpretation of weight loss: up to 10% in 6 months Fluid Accumulation (Non Severe: Mild fluid retention Protein Calorie Malnutrition: Non-Severe Is there a minimum of two crit: Yes CC Plasma Assessment Blood Product Administration S: 0005 PAOLA WILSON MD Oct 18, 2024 16:40
[2024-10-18] MEDS: ALBUMIN 25% 100 ML IV ONE (16:57)
--- NOTE | 2024-10-18 17:03 | DVHPN2 ---
Consult Progress Note Date Seen: Oct 18, 2024 Subjective Patient reports: Other (patient is being evaluated by hospice , having goals of care discussions . remains tachycardic , no longer febrile and pressers are coming down . mentating well and able to ambulate . however has been presser dependant last cover days ) Objective vital signs Vital Sign Date Time Temp Pulse Resp B/P (MAP) Pulse Ox O2 Delivery O2 Flow Rate FiO2 10/18/24 16:22 111 10/18/24 16:22 26 94 Nasal Cannula* 2 28 10/18/24 15:45 98/52 (67) 10/18/24 12:00 98.9 98.9 Total Intake and Output 10/17/24 10/17/24 10/18/24 14:59 22:59 06:59 Intake Total 1429.565 ml 996.878 ml 995.941 ml Output Total 1200 ml 1300 ml Balance 1429.565 ml -203.122 ml -304.059 ml medications Current Medications Medications Dose Ordered Sig/Fabricio Route Start Time Stop Time Status Last Admin Dose Admin Ondansetron HCl 4 mg Q4HP PRN IV 10/08/24 08:45 10/11/24 20:53 4 MG Docusate Sodium 100 mg BIDPRN PRN PO 10/08/24 08:45 Vancomycin HCl 0 ml @ 0 mls/hr UD IV 10/08/24 08:45 Piperacillin Sod/ Tazobactam Sod 100 ml @ 25 mls/hr Q8HR IV 10/08/24 14:00 10/18/24 14:23 25 MLS/HR Patient Own Medication 1 tab DAILY PO 10/08/24 10:00 UNV Patient Own Medication 600 mg BID PO 10/08/24 10:00 UNV Patient Own Medication 2 mg BID PO 10/08/24 10:00 UNV Albuterol 2.5 mg Q6HWA NEB 10/08/24 12:00 10/18/24 12:15 2.5 MG Ipratropium [place] 0.5 mg Q6HWA NEB 10/08/24 12:00 10/18/24 12:15 0.5 MG Risperidone 2 mg BID PO 10/08/24 10:00 10/18/24 10:22 2 MG Ipratropium [place] 0.5 mg Q6HWA NEB 10/08/24 18:00 UNV Albuterol 2.5 mg Q6HWA NEB 10/08/24 18:00 UNV Norepinephrine Bitartrate 250 ml @ 3.75 mls/hr Q24H IV 10/14/24 19:30 10/18/24 14:49 8.438 MLS/HR Enteral Nutritional Formula 240 ml TIDWM PO 10/15/24 12:00 10/18/24 12:25 240 ML Vancomycin HCl 300 ml @ 200 mls/hr Q12H IV 10/15/24 12:00 10/18/24 12:25 200 MLS/HR Midodrine 15 mg TID PO 10/16/24 22:00 10/18/24 14:23 15 MG Clindamycin Phosphate 50 ml @ 50 mls/hr Q8HR IV 10/17/24 14:00 10/18/24 14:23 50 MLS/HR Physical Exam: General: NAD Neck: Supple. No masses. HEENT: PERRL. Normal lids and conjunctiva. Moist mucous membranes. Oropharynx without lesions, exudates or excessive erythema. Normal appearance of the external aspects of the nose and ears. Heart: Regular rhythm, normal rate. No murmur. No lower extremity edema (replace with: profound right lower extremity 4+ edema). Lungs: Normal respiratory effort. Clear to auscultation bilaterally. No wheezes. No crackles. Abdomen: Soft. Non-tender. Non-distended. No masses or abdominal hernia. Msk: Right leg: profound, non-tender 4+ pitting edema; purulent ulcer on inferior villarreal and posterior ankle. No digital cyanosis. Normal strength and tone in all other limbs. Skin: Warm and dry except right leg; draining purulent ulcers inferior villarreal and posterior ankle. Neuro: Alert. No facial droop or slurred speech. Extra-ocular movements intact. Sensation intact to soft touch in all 4 limbs. Psych: Flat affect. Oriented to person, place, time, and situation. laboratory and microbiology Laboratory Tests 10/18/24 11:20 10/18/24 03:06 Test 10/18/24 03:06 Range/Units Serum Glucose 97 74-106 mg/dL Problem List/Assessment/Plan Problems(with codes): (1) Severe anemia (2) Swelling of right lower extremity (3) Sepsis, unspecified organism (4) Cellulitis of right lower extremity (5) Near syncope (6) Postoperative pain Problem List/Assessment/Plan ASSESSMENT AND PLAN: ID Problem List: \-- Chronic myelodysplastic syndrome with recurrent anemia \-- Prostate cancer \-- COPD (post-resection) \-- Chronic hypertension \-- Schizophrenia \-- Chronic right lower extremity edema, recurrent cellulitis, draining ulcer \-- Septic shock (presumed) \-- Multifocal pneumonia Assessment Mr. Eugene Alejandro is a 69-year-old male with a history of myelodysplastic syndrome (recurrent anemia requiring weekly transfusions), prostate cancer, COPD (post-resection), hypertension on midodrine, and schizophrenia, who presents with weakness, dizziness, weight loss, poor oral intake, and worsening right lower extremity edema. Notable for new purulent drainage from both his posterior ankle and inferior villarreal and gross 4+ right leg edema. Patient denies leg pain. Noted flat affect, not eating. Past transfer to [place] for possible surgical evaluation based on CT evidence of muscle abscess/necrotizing fasciitis, though no acute surgery was indicated. At present, the patient remains hemodynamically unstable, requiring vasopressor support (levophed 16 mcg), and has evidence of septic shock (fever, hypotension, tachycardia, leukocytosis not present but anemia present, lactate 2.6, and ongoing purulent drainage of right LE ulcer presumed infectious). Imaging shows multifocal pneumonia (diffuse airspace disease). Right lower extremity exam: Massively edematous, non-tender, with 4+ edema and draining purulent ulcer lateral villarreal and posterior ankle. Current antibiotic regimen is vancomycin and cefepime pending cultures. Last Hb 8.7 after transfusion (matt 7.3). Patient is also severely hypertensive at baseline, unclear etiology of persistent relative hypotension, likely secondary to sepsis. 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 no organisms seen on gram stain 10/11: liver enzymes are elevated , likely related to ischemic hepatopathy , however would rule out any underlying HIV or hepatitis 10/12: congestion as seen in the lungs , leg is still edemitis as well but only on the right leg , otherwise appears intervascularly dry . fever curve is stable with high fever at 102.2 10/13: hemoglobin is 6.9 , requiring a blood transfusion . blood transfusion may be resulting in lung congestion and consolidations 10/14: liver enzymes are slowly improving and awaiting surgical evaluation of patients leg 10/15: angiography was done and showed extensive thickening of Achilles tendon and surrounding soft tissues with posterior medial calf to correlate with patients surgical history . theres generalized atrophy and edema within the muscles of the right calf which may be seen in myositis or other etiology . severes right greater than left subcutaneous edea with skin thickening in the background as well as body wall edema , unclear if myositis is truly infectious in etiology since patient does not have a clear open wound directly at the site of the muscular atrophy . pyomyositis on R leg on MRI hb intermittently dropping vancomycin trough therapuetic Chest CT w/ Right upper lobe mass measures 5.4 x 5.0 cm 2 masses in the left upper lobe measure 3.4 x 3.3 cm and 3.1 x 2.6 cm. Right lower lobe mass measures 2.7 x 2.3 cm and additional pleural based medial apical mass measures 2.0 x 1.5 cm. Bibasilar consolidation is present with possible more masslike area in the left lower lobe measuring 4.8 x 4.7 cm. There are air bronchograms within these masses, irregular margins, and some surrounding ground-glass opacities. There are areas of subpleural pulmonary fibrosis in the upper lobes. There are prominent mediastinal lymph nodes measuring up to 1.3 cm in short axis 10/16: hypoxic needs continue to go up , suspect related to recurrent blood transfusions . consider fever and myositis as a sequela of myelodysplastic syndrome from patients underlying malignancy 10/17: requiring another blood transfusion every 2-3 days . respiratory and sputum cultures were repeats and preliminary are negative for any organisms 10/18: unclear if symptomatology with continue to progress , unclear if this is infection or sequela of myelodysplastic syndrome Plan: - if patient fails to respond to antibiotic therapy and remains persistently in shock may require reevaluation of goals of care given patient is both transfusion dependent and presser dependent - consider the addition of clindamycin empirically to see if it will help with necrosis and overall septic picture - screen for hepatitis A,B, and C - check HIV status - check LFTs daily - continue mitadrine TID - defer to surgery on need for debridement - f/u on blood and wound cultures - increase vancomycin troth to 15-20 - defer to primary team for management of myelodysplastic syndrome and transfusions for hemoglobins under 7 - consider surgical consult for pyomyositis when more clinically stable. - recommend hematology/oncology and pulmonology involvement for R lung masses in setting of known prostate cancer and myelodysplastic syndrome - Hb>7, plts>100 goal - vasopressors to keep maps >65 \-- Continue empiric vancomycin and zosyn \-- Blood, sputum and wound cultures pending; recommend obtaining superficial wound culture from draining right lower extremity ulcer \-- MRI right lower extremity to further evaluate suspected muscle abscess/necrotizing infection \-- Continue vasopressor support (levophed), goal MAP > 65 \-- IV fluids as tolerated \-- Monitor for improvement/worsening of sepsis/shock \-- Continue blood transfusions as per hematology/primary; most recent Hgb 8.7 \-- Not recommended to diurese at present due to hemodynamics and ongoing sepsis/shock \-- Monitor oxygenation, continue supportive care including 2L nasal cannula \-- Ongoing care for schizophrenia as per psychiatry recommendations \-- Monitor laboratory markers and adjust antibiotics if indicated based on cultures Isolation Precautions: standard Authorized and Performed by: paola wilson Total critical care time: Approximately 76 minutes Due to a high probability of clinically significant, life threatening deterioration, the patient required my highest level of preparedness to intervene emergently and I personally spent this critical care time directly and personally managing the patient. This critical care time included obtaining a history; examining the patient; pulse oximetry; ordering and review of studies; arranging urgent treatment with development of a management plan; evaluation of patient's response to treatment; frequent reassessment; and, discussions with other providers. This critical care time was performed to assess and manage the high probability of imminent, life-threatening deterioration that that could result in multi- organ failure. It was exclusive of separately billable procedures and treating other patients and teaching time. Plan discussed with: Other Dietary Evaluation Review Recommendations by RD: Increase Calorie Intake Comments: Pt meets criteria for Moderate Protein-Calorie Malnutrition in the setting of chronic illness based on wt loss 6.3kg/8.0% in 6 month and mild fluid accumulation to right LE. Nutrition Recommendation 1) Ensure Enlive 240ml TID 2) Monitor wt trend, I/O, lab values, PO intake Expected Outcomes/Goals: To gain/maintain wt Intake to meet at least 75% estimated needs FU 3-5 days Interpretation of weight loss: up to 10% in 6 months Fluid Accumulation (Non Severe: Mild fluid retention Protein Calorie Malnutrition: Non-Severe Is there a minimum of two crit: Yes CC Plasma Assessment Blood Product Administration S: 0005 PAOLA WILSON MD Oct 18, 2024 17:03
--- NOTE | 2024-10-18 20:32 | ECG ---
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
[2024-10-18] MEDS: ACETAMINOPHEN 325 MG TAB PO PRN (21:26)
[2024-10-19] VITALS (101 sets, daily range): BP systolic 89–118; BP diastolic 42–65; PULSE 95–125; RESP 18–39; TEMP 98.5–99.8; O2SAT 78–100
[2024-10-19 04:32] LABS: Hemoglobin 8.2 g/dL (13.5-17.5); Mean Corpuscular Hemoglobin 30.3 pg (28.0-32.0)
[2024-10-19 04:34] LABS: Hematocrit 23.8 % (41.0-53.0); Mean Corpuscular Volume 88.0 fL (80.0-100.0); Nucleated Red Blood Cells % 0.1 %
[2024-10-19 04:52] LABS: Anion Gap 8 (5-15); BUN/Creatinine Ratio 28.6 (10.0-20.0); Blood Urea Nitrogen 14 mg/dL (9-23); Carbon Dioxide 23 mmol/L (20-31); Chloride 104 mmol/L (98-107); Glucose 93 mg/dL (74-106); Total Protein 6.1 g/dL (5.7-8.2)
[2024-10-19 04:53] LABS: Alanine Aminotransferase 164 U/L (7-40); Albumin 2.8 g/dL (3.2-4.8); Alkaline Phosphatase 174 U/L (46-116); Bilirubin, Total 1.4 mg/dL (0.2-1.0); Calcium 8.5 mg/dL (8.7-10.4); Potassium 3.5 mmol/L (3.5-5.1); Sodium 135 mmol/L (136-145)
--- NOTE | 2024-10-19 06:04 | DVHPN2 ---
Subjective With no new complaints; still complaining of right leg/foot pain; still with fever; still on vasopressors Reviewed: Care Plan, H&P, Labs, Medications, Previous Orders, Radiology, Other (Consultations) Changes from previous H/P or p: No Changes Objective Vitals Vital Signs Date Time Temp Pulse Resp B/P (MAP) Pulse Ox O2 Delivery O2 Flow Rate FiO2 10/19/24 04:45 118 25 104/53 (70) 89 10/19/24 04:00 99.7 99.7 10/19/24 04:00 Nasal Cannula* 2 28 Intake/Output Intake and Output 10/19/24 07:00 Intake Total 2399.069 ml Output Total 1150 ml Balance 1249.069 ml Intake Oral 800 ml IV Total 1299.069 ml Blood Product 300 ml Output Urine Total 1150 ml # Bowel Movements 2 General Appearance: Alert, Oriented X3, Cooperative, No acute distress HEENT: Atraumatic, Other (Pale) Lungs: Other (Decreased air entry bilateral with scattered crackles) Cardiovascular: Normal S1, Normal S2, Other (Tachycardia) Abdomen: Normal bowel sounds, Soft, No tenderness Extremities: Other (Dressed right lower leg; please kindly refer to wound care/nursing documentation) Neuro: Normal speech, Cranial nerves 3-12 NL Skin: Other (Please kindly refer to wound care/nursing documentation) Psych/Mental Status: Mental status NL, Mood NL Medications Current Medications Medications Dose Ordered Sig/Fabricio Route Start Time Stop Time Status Last Admin Dose Admin Ondansetron HCl 4 mg Q4HP PRN IV 10/08/24 08:45 10/11/24 20:53 4 MG Docusate Sodium 100 mg BIDPRN PRN PO 10/08/24 08:45 Vancomycin HCl 0 ml @ 0 mls/hr UD IV 10/08/24 08:45 Piperacillin Sod/ Tazobactam Sod 100 ml @ 25 mls/hr Q8HR IV 10/08/24 14:00 10/18/24 22:05 25 MLS/HR Patient Own Medication 1 tab DAILY PO 10/08/24 10:00 UNV Patient Own Medication 600 mg BID PO 10/08/24 10:00 UNV Patient Own Medication 2 mg BID PO 10/08/24 10:00 UNV Albuterol 2.5 mg Q6HWA NEB 10/08/24 12:00 10/18/24 18:48 2.5 MG Ipratropium [place] 0.5 mg Q6HWA NEB 10/08/24 12:00 10/18/24 18:48 0.5 MG Risperidone 2 mg BID PO 10/08/24 10:00 10/18/24 22:05 2 MG Ipratropium [place] 0.5 mg Q6HWA [facility] 10/08/24 18:00 UNV Albuterol 2.5 mg Q6HWA [facility] 10/08/24 18:00 UNV Norepinephrine Bitartrate 250 ml @ 3.75 mls/hr Q24H IV 10/14/24 19:30 10/18/24 14:49 8.438 MLS/HR Enteral Nutritional Formula 240 ml TIDWM PO 10/15/24 12:00 10/18/24 18:00 240 ML Vancomycin HCl 300 ml @ 200 mls/hr Q12H IV 10/15/24 12:00 10/19/24 00:07 200 MLS/HR Midodrine 15 mg TID PO 10/16/24 22:00 10/18/24 22:05 15 MG Clindamycin Phosphate 50 ml @ 50 mls/hr Q8HR IV 10/17/24 14:00 10/18/24 22:05 50 MLS/HR Acetaminophen 650 mg Q6HP PRN PO 10/18/24 21:00 10/18/24 21:26 650 MG Laboratory Results Laboratory Tests 10/19/24 03:30 Chemistry Test 10/19/24 03:30 Albumin 2.8 g/dL (3.2-4.8) L Calcium Level 8.5 mg/dL (8.7-10.4) L Total Protein 6.1 g/dL (5.7-8.2) LFT Test 10/19/24 03:30 Alanine Aminotransferase (ALT) 164 U/L (7-40) H Alkaline Phosphatase 174 U/L (46-116) H Aspartate Amino Transferase (AST) 63 U/L (13-40) H Total Bilirubin 1.4 mg/dL (0.2-1.0) H Urinalysis Test 10/08/24 13:31 Urine Color Dark yellow (Yellow) Urine Clarity Clear (Clear) Urine pH 6.0 (5.0-9.0) Urine Specific [place] 1.024 (1.001-1.035) Urine Protein 1+ (Negative) H Urine Ketones Negative (Negative) Urine Blood Negative /uL (Negative) Urine Nitrite Negative (Negative) Urine Bilirubin Negative (Negative) Urine Urobilinogen Normal mg/dL (Negative) Urine Leukocyte Esterase Negative /uL (Negative) Urine RBC 2 /hpf (0 - 3) Urine Microscopic WBC 2 /HPF (0-3) Urine Squamous Epithelial Cells Few /hpf (<5) Urine Bacteria None seen /hpf (None Seen) Urine Mucus Few (None Seen) Urine Glucose Normal mg/dL (Normal) Microbiology Microbiology Date/Time Source Procedure Growth Status 10/16/24 22:45 Urine - [place] Urine Culture - Preliminary Resulted 10/15/24 07:50 Sputum Gram Stain - Final Complete 10/15/24 07:50 Sputum Respiratory Culture - Final Complete 10/09/24 15:48 Leg Right Gram Stain - Final Complete 10/09/24 15:48 Leg Right Wound Culture - Final Complete 10/08/24 07:12 Blood Blood Culture - Final NO GROWTH AFTER 5 DAYS OF INCUBATION. Complete Labs and/or images reviewed: Labs reviewed by me, Image(s) reviewed by me Assessment/Plan Assessment/Plan Covering: #Septic shock due to right lower leg cellulitis/pyomyositis/suspected osteomyelitis and suspected postobstructive pneumonia # Dizziness due to septic shock/hypotension and symptomatic anemia # Acute hypoxic respiratory failure due to suspected postobstructive pneumonia in the setting of lung masses # Suspected postobstructive pneumonia in the setting of lung masses # Moderate pericardial effusion; most likely malignant in the setting of lung mass # Elevated LFTs due to septic shock # Dyslipidemia; no statin due to elevated LFT # Lung masses with mediastinal lymphadenopathy; suspected primary malignancy or metastasis # COPD exacerbation due to suspected postobstructive pneumonia # Myelodysplastic syndrome with severe anemia requiring recurrent transfusions and thrombocytopenia; total of 6 units of packed RBCs transfused during this admission # Protein deficient malnutrition/moderate # Cellulitis with pyomyositis of right lower leg # Achilles tendinopathy and peritendinitis # Lateral hindfoot impingement # 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 # Schizophrenia # History of prostate cancer s/p radiation therapy # BPH status post TURP Reviewed available lab work and imaging studies Reviewed the available cultures; repeated blood culture due to recurrent fever on October 19, 2024 Consultations progress notes reviewed Continue broad-spectrum IV antibiotic To transfuse blood when hemoglobin is equal or below 7 To continue vasopressors as needed Telemetry Continue home midodrine Avoid hepatotoxic agents Avoid nephrotoxic agents Continue close monitoring Diet Regular diet Lines Right IJ CVC 10/08/24 Bowel Regimen Colace Code status Full code DVT prophylaxis -SCDs; avoid enoxaparin because of low platelets 55 minutes critical care time Late Entry. This medical document was created using an electronic medical record system with computerized dictation system. Although this document has been carefully reviewed, there might still be some phonetic and typographical errors. These areas are purely typographical due to imperfections of the software programs, and do not reflect any compromise in the patient's medical care. Plan discussed with: Patient, Other (Nurse) Date of Service: Oct 19, 2024 Billing Provider: ALLAN SCALES MD Common Visit Codes: 21683-NGQSDHIM CARE 30-74 MIN (55 minutes) ALLAN SCALES MD Oct 19, 2024 06:04
--- NOTE | 2024-10-19 22:10 | DVHPN2 ---
Consult Progress Note Date Seen: Oct 19, 2024 Subjective Patient reports: Feels better (patient seen at bedside, full note to follow, ongoing hospice discussion, remains febrile, platlets low, hemoglobin recurrently transfused. Zosyn stopped. recommend continuing gram negative coverage by starting meropenem, continue vancomycin and clindamycin. ) Objective vital signs Vital Sign Date Time Temp Pulse Resp B/P (MAP) Pulse Ox O2 Delivery O2 Flow Rate FiO2 10/19/24 20:45 111 18 103/54 (70) 91 10/19/24 20:00 Nasal Cannula* 2 28 10/19/24 20:00 99.8 99.8 Total Intake and Output 10/18/24 10/18/24 10/19/24 15:00 23:00 07:00 Intake Total 1080.004 ml 888.752 ml 933.438 ml Output Total 1150 ml 1100 ml Balance 1080.004 ml -261.248 ml -166.562 ml medications Current Medications Medications Dose Ordered Sig/Fabricio Route Start Time Stop Time Status Last Admin Dose Admin Ondansetron HCl 4 mg Q4HP PRN IV 10/08/24 08:45 10/11/24 20:53 4 MG Docusate Sodium 100 mg BIDPRN PRN PO 10/08/24 08:45 Patient Own Medication 1 tab DAILY PO 10/08/24 10:00 UNV Patient Own Medication 600 mg BID PO 10/08/24 10:00 UNV Patient Own Medication 2 mg BID PO 10/08/24 10:00 UNV Albuterol 2.5 mg Q6HWA [facility] 10/08/24 12:00 10/19/24 19:09 2.5 MG Ipratropium [place] 0.5 mg Q6HWA [facility] 10/08/24 12:00 10/19/24 19:10 0.5 MG Risperidone 2 mg BID PO 10/08/24 10:00 10/19/24 21:31 2 MG Ipratropium [place] 0.5 mg Q6HWA [facility] 10/08/24 18:00 UNV Albuterol 2.5 mg Q6HWA [facility] 10/08/24 18:00 UNV Norepinephrine Bitartrate 250 ml @ 3.75 mls/hr Q24H IV 10/14/24 19:30 10/19/24 16:53 9.375 MLS/HR Enteral Nutritional Formula 240 ml TIDWM PO 10/15/24 12:00 10/19/24 18:30 240 ML Vancomycin HCl 300 ml @ 200 mls/hr Q12H IV 10/15/24 12:00 10/19/24 11:23 200 MLS/HR Midodrine 15 mg TID PO 10/16/24 22:00 10/19/24 21:31 15 MG Clindamycin Phosphate 50 ml @ 50 mls/hr Q8HR IV 10/17/24 14:00 10/19/24 21:30 50 MLS/HR Acetaminophen 650 mg Q6HP PRN PO 10/18/24 21:00 10/18/24 21:26 650 MG laboratory and microbiology Laboratory Tests 10/19/24 03:30 Test 10/19/24 03:30 Range/Units Serum Glucose 93 74-106 mg/dL Problem List/Assessment/Plan Problem List/Assessment/Plan ASSESSMENT AND PLAN: ID Problem List: \-- Chronic myelodysplastic syndrome with recurrent anemia \-- Prostate cancer \-- COPD (post-resection) \-- Chronic hypertension \-- Schizophrenia \-- Chronic right lower extremity edema, recurrent cellulitis, draining ulcer \-- Septic shock (presumed) \-- Multifocal pneumonia Assessment Mr. Eugene Alejandro is a 69-year-old male with a history of myelodysplastic syndrome (recurrent anemia requiring weekly transfusions), prostate cancer, COPD (post-resection), hypertension on midodrine, and schizophrenia, who presents with weakness, dizziness, weight loss, poor oral intake, and worsening right lower extremity edema. Notable for new purulent drainage from both his posterior ankle and inferior villarreal and gross 4+ right leg edema. Patient denies leg pain. Noted flat affect, not eating. Past transfer to [place] for possible surgical evaluation based on CT evidence of muscle abscess/necrotizing fasciitis, though no acute surgery was indicated. At present, the patient remains hemodynamically unstable, requiring vasopressor support (levophed 16 mcg), and has evidence of septic shock (fever, hypotension, tachycardia, leukocytosis not present but anemia present, lactate 2.6, and ongoing purulent drainage of right LE ulcer presumed infectious). Imaging shows multifocal pneumonia (diffuse airspace disease). Right lower extremity exam: Massively edematous, non-tender, with 4+ edema and draining purulent ulcer lateral villarreal and posterior ankle. Current antibiotic regimen is vancomycin and cefepime pending cultures. Last Hb 8.7 after transfusion (matt 7.3). Patient is also severely hypertensive at baseline, unclear etiology of persistent relative hypotension, likely secondary to sepsis. 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 no organisms seen on gram stain 10/11: liver enzymes are elevated , likely related to ischemic hepatopathy , however would rule out any underlying HIV or hepatitis 10/12: congestion as seen in the lungs , leg is still edemitis as well but only on the right leg , otherwise appears intervascularly dry . fever curve is stable with high fever at 102.2 10/13: hemoglobin is 6.9 , requiring a blood transfusion . blood transfusion may be resulting in lung congestion and consolidations 10/14: liver enzymes are slowly improving and awaiting surgical evaluation of patients leg 10/15: angiography was done and showed extensive thickening of Achilles tendon and surrounding soft tissues with posterior medial calf to correlate with patients surgical history . theres generalized atrophy and edema within the muscles of the right calf which may be seen in myositis or other etiology . severes right greater than left subcutaneous edea with skin thickening in the background as well as body wall edema , unclear if myositis is truly infectious in etiology since patient does not have a clear open wound directly at the site of the muscular atrophy . pyomyositis on R leg on MRI hb intermittently dropping vancomycin trough therapuetic Chest CT w/ Right upper lobe mass measures 5.4 x 5.0 cm 2 masses in the left upper lobe measure 3.4 x 3.3 cm and 3.1 x 2.6 cm. Right lower lobe mass measures 2.7 x 2.3 cm and additional pleural based medial apical mass measures 2.0 x 1.5 cm. Bibasilar consolidation is present with possible more masslike area in the left lower lobe measuring 4.8 x 4.7 cm. There are air bronchograms within these masses, irregular margins, and some surrounding ground-glass opacities. There are areas of subpleural pulmonary fibrosis in the upper lobes. There are prominent mediastinal lymph nodes measuring up to 1.3 cm in short axis 10/16: hypoxic needs continue to go up , suspect related to recurrent blood transfusions . consider fever and myositis as a sequela of myelodysplastic syndrome from patients underlying malignancy 10/17: requiring another blood transfusion every 2-3 days . respiratory and sputum cultures were repeats and preliminary are negative for any organisms 10/18: unclear if symptomatology with continue to progress , unclear if this is infection or sequela of myelodysplastic syndrome Plan: - if patient fails to respond to antibiotic therapy and remains persistently in shock may require reevaluation of goals of care given patient is both transfusion dependent and presser dependent - consider the addition of clindamycin empirically to see if it will help with necrosis and overall septic picture - screen for hepatitis A,B, and C - check HIV status - check LFTs daily - continue mitadrine TID - defer to surgery on need for debridement - f/u on blood and wound cultures - increase vancomycin troth to 15-20 - defer to primary team for management of myelodysplastic syndrome and transfusions for hemoglobins under 7 - consider surgical consult for pyomyositis when more clinically stable. - recommend hematology/oncology and pulmonology involvement for R lung masses in setting of known prostate cancer and myelodysplastic syndrome - Hb>7, plts>100 goal - vasopressors to keep maps >65 \-- Continue empiric vancomycin and zosyn \-- Blood, sputum and wound cultures pending; recommend obtaining superficial wound culture from draining right lower extremity ulcer \-- MRI right lower extremity to further evaluate suspected muscle abscess/necrotizing infection \-- Continue vasopressor support (levophed), goal MAP > 65 \-- IV fluids as tolerated \-- Monitor for improvement/worsening of sepsis/shock \-- Continue blood transfusions as per hematology/primary; most recent Hgb 8.7 \-- Not recommended to diurese at present due to hemodynamics and ongoing sepsis/shock \-- Monitor oxygenation, continue supportive care including 2L nasal cannula \-- Ongoing care for schizophrenia as per psychiatry recommendations \-- Monitor laboratory markers and adjust antibiotics if indicated based on cultures Isolation Precautions: standard Authorized and Performed by: paola wilson Total critical care time: Approximately 76 minutes Due to a high probability of clinically significant, life threatening deterioration, the patient required my highest level of preparedness to intervene emergently and I personally spent this critical care time directly and personally managing the patient. This critical care time included obtaining a history; examining the patient; pulse oximetry; ordering and review of studies; arranging urgent treatment with development of a management plan; evaluation of patient's response to treatment; frequent reassessment; and, discussions with other providers. This critical care time was performed to assess and manage the high probability of imminent, life-threatening deterioration that that could result in multi- organ failure. It was exclusive of separately billable procedures and treating other patients and teaching time. Plan discussed with: Patient Dietary Evaluation Review Recommendations by RD: Increase Calorie Intake Comments: Pt meets criteria for Moderate Protein-Calorie Malnutrition in the setting of chronic illness based on wt loss 6.3kg/8.0% in 6 month and mild fluid accumulation to right LE. Nutrition Recommendation 1) Ensure Enlive 240ml TID 2) Monitor wt trend, I/O, lab values, PO intake Expected Outcomes/Goals: To gain/maintain wt Intake to meet at least 75% estimated needs FU 3-5 days Interpretation of weight loss: up to 10% in 6 months Fluid Accumulation (Non Severe: Mild fluid retention Protein Calorie Malnutrition: Non-Severe Is there a minimum of two crit: Yes CC Plasma Assessment Blood Product Administration S: [id number] PAOLA WILSON MD Oct 19, 2024 22:10
[2024-10-19] MEDS ORDERED: VANCOMYCIN PER PHARMACY 0 MG IV SCH (22:15)
[2024-10-19] MEDS: MEROPENEM 1GM IVPB 50 ML IV SCH (22:48)
[2024-10-20] VITALS (100 sets, daily range): BP systolic 82–119; BP diastolic 37–65; PULSE 98–134; RESP 14–48; TEMP 98.6–100.6; O2SAT 86–98
[2024-10-20 03:12] LABS: Hematocrit 22.2 % (41.0-53.0); Hemoglobin 7.6 g/dL (13.5-17.5); Mean Corpuscular Hemoglobin 30.3 pg (28.0-32.0); Mean Corpuscular Volume 88.1 fL (80.0-100.0)
[2024-10-20 03:37] LABS: Carbon Dioxide 22 mmol/L (20-31); Chloride 104 mmol/L (98-107); Glucose 99 mg/dL (74-106)
[2024-10-20 03:38] LABS: Anion Gap 9 (5-15); BUN/Creatinine Ratio 32.6 (10.0-20.0); Bilirubin, Total 1.2 mg/dL (0.2-1.0); Blood Urea Nitrogen 14 mg/dL (9-23); Total Protein 6.0 g/dL (5.7-8.2)
[2024-10-20 04:04] LABS: Anisocytosis Slight
[2024-10-20 04:11] LABS: Alanine Aminotransferase 113 U/L (7-40); Albumin 2.6 g/dL (3.2-4.8); Alkaline Phosphatase 148 U/L (46-116); Calcium 8.4 mg/dL (8.7-10.4); Potassium 3.5 mmol/L (3.5-5.1); Sodium 135 mmol/L (136-145)
[2024-10-20 04:19] LABS: Total Cells Counted 100.0 (100)
[2024-10-20] MEDS ORDERED: LABETALOL HCL 20 MG/4 ML VL IV ONE (10:00)
--- NOTE | 2024-10-20 13:27 | DVHPN2 ---
Subjective With no new complaints; still complaining of right leg/foot pain; still with recurrent fever; still on vasopressors Reviewed: Care Plan, H&P, Labs, Medications, Previous Orders, Radiology, Other (Consultations) Changes from previous H/P or p: No Changes Objective Vitals Vital Signs Date Time Temp Pulse Resp B/P (MAP) Pulse Ox O2 Delivery O2 Flow Rate FiO2 10/20/24 11:46 115 31 98 10/20/24 11:40 Nasal Cannula 2.0 10/20/24 11:40 28 10/20/24 11:15 91/52 (65) 10/20/24 08:00 99.7 99.7 Intake/Output Intake and Output 10/20/24 07:00 Intake Total 2351.000 ml Output Total 1750 ml Balance 601.000 ml Intake Oral 1150 ml IV Total 1201.000 ml Output Urine Total 1750 ml General Appearance: Alert, Oriented X3, Cooperative, No acute distress HEENT: Atraumatic, Other (Pale) Lungs: Other (Decreased air entry bilateral with scattered crackles) Cardiovascular: Normal S1, Normal S2, Other (Tachycardia) Abdomen: Normal bowel sounds, Soft, No tenderness Extremities: Other (Dressed right lower leg; please kindly refer to wound care/nursing documentation) Neuro: Normal speech, Cranial nerves 3-12 NL Skin: Other (Please kindly refer to wound care/nursing documentation) Psych/Mental Status: Mental status NL, Mood NL Medications Current Medications Medications Dose Ordered Sig/Fabricio Route Start Time Stop Time Status Last Admin Dose Admin Ondansetron HCl 4 mg Q4HP PRN IV 10/08/24 08:45 10/11/24 20:53 4 MG Docusate Sodium 100 mg BIDPRN PRN PO 10/08/24 08:45 Patient Own Medication 1 tab DAILY PO 10/08/24 10:00 UNV Patient Own Medication 600 mg BID PO 10/08/24 10:00 UNV Patient Own Medication 2 mg BID PO 10/08/24 10:00 UNV Albuterol 2.5 mg Q6HWA NEB 10/08/24 12:00 10/20/24 11:40 2.5 MG Ipratropium [place] 0.5 mg Q6HWA NEB 10/08/24 12:00 10/20/24 11:40 0.5 MG Risperidone 2 mg BID PO 10/08/24 10:00 10/20/24 10:24 2 MG Ipratropium [place] 0.5 mg Q6HWA NEB 10/08/24 18:00 UNV Albuterol 2.5 mg Q6HWA NEB 10/08/24 18:00 UNV Norepinephrine Bitartrate 250 ml @ 3.75 mls/hr Q24H IV 10/14/24 19:30 10/19/24 16:53 9.375 MLS/HR Enteral Nutritional Formula 240 ml TIDWM PO 10/15/24 12:00 10/20/24 12:12 240 ML Vancomycin HCl 300 ml @ 200 mls/hr Q12H IV 10/15/24 12:00 10/20/24 12:13 200 MLS/HR Midodrine 15 mg TID PO 10/16/24 22:00 10/20/24 05:47 15 MG Clindamycin Phosphate 50 ml @ 50 mls/hr Q8HR IV 10/17/24 14:00 10/20/24 05:47 50 MLS/HR Acetaminophen 650 mg Q6HP PRN PO 10/18/24 21:00 10/20/24 00:15 650 MG Meropenem 50 ml @ 17 mls/hr Q8HR IV 10/19/24 22:00 10/20/24 06:00 17 MLS/HR Vancomycin HCl 0 ml @ 0 mls/hr UD IV 10/19/24 22:15 Laboratory Results Laboratory Tests 10/20/24 02:57 Chemistry Test 10/20/24 02:57 Albumin 2.6 g/dL (3.2-4.8) L Calcium Level 8.4 mg/dL (8.7-10.4) L Total Protein 6.0 g/dL (5.7-8.2) LFT Test 10/20/24 02:57 Alanine Aminotransferase (ALT) 113 U/L (7-40) H Alkaline Phosphatase 148 U/L (46-116) H Aspartate Amino Transferase (AST) 40 U/L (13-40) Total Bilirubin 1.2 mg/dL (0.2-1.0) H Urinalysis Test 10/08/24 13:31 Urine Color Dark yellow (Yellow) Urine Clarity Clear (Clear) Urine pH 6.0 (5.0-9.0) Urine Specific [place] 1.024 (1.001-1.035) Urine Protein 1+ (Negative) H Urine Ketones Negative (Negative) Urine Blood Negative /uL (Negative) Urine Nitrite Negative (Negative) Urine Bilirubin Negative (Negative) Urine Urobilinogen Normal mg/dL (Negative) Urine Leukocyte Esterase Negative /uL (Negative) Urine RBC 2 /hpf (0 - 3) Urine Microscopic WBC 2 /HPF (0-3) Urine Squamous Epithelial Cells Few /hpf (<5) Urine Bacteria None seen /hpf (None Seen) Urine Mucus Few (None Seen) Urine Glucose Normal mg/dL (Normal) Microbiology Microbiology Date/Time Source Procedure Growth Status 10/19/24 10:16 Blood Blood Culture - Preliminary NO GROWTH AFTER 24 HOURS OF INCUBATION. Resulted 10/16/24 22:45 Urine - [place] Urine Culture - Final Complete 10/15/24 07:50 Sputum Gram Stain - Final Complete 10/15/24 07:50 Sputum Respiratory Culture - Final Complete 10/09/24 15:48 Leg Right Gram Stain - Final Complete 10/09/24 15:48 Leg Right Wound Culture - Final Complete Labs and/or images reviewed: Labs reviewed by me, Image(s) reviewed by me Assessment/Plan Assessment/Plan Covering: #Septic shock due to right lower leg cellulitis/pyomyositis/suspected osteomyelitis and suspected postobstructive pneumonia # Dizziness due to septic shock/hypotension and symptomatic anemia # Acute hypoxic respiratory failure due to suspected postobstructive pneumonia in the setting of lung masses # Suspected postobstructive pneumonia in the setting of lung masses # Moderate pericardial effusion; most likely malignant in the setting of lung mass # Elevated LFTs due to septic shock # Dyslipidemia; no statin due to elevated LFT # Lung masses with mediastinal lymphadenopathy; suspected primary malignancy or metastasis # COPD exacerbation due to suspected postobstructive pneumonia # Myelodysplastic syndrome with severe anemia requiring recurrent transfusions and thrombocytopenia; total of 6 units of packed RBCs transfused during this admission # Protein deficient malnutrition/moderate # Cellulitis with pyomyositis of right lower leg # Achilles tendinopathy and peritendinitis # Lateral hindfoot impingement # 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 # Schizophrenia # History of prostate cancer s/p radiation therapy # BPH status post TURP Reviewed available lab work and imaging studies Reviewed the available cultures; repeated blood culture due to recurrent fever on October 19, 2024 Consultations progress notes reviewed Continue broad-spectrum IV antibiotic To transfuse blood when hemoglobin is equal or below 7 Lung masses biopsy to be attempted when the patient is stabilized Continue vasopressors as needed Continue oxygen therapy as needed Continue home midodrine Avoid hepatotoxic agents Avoid nephrotoxic agents IV boluses as needed Continue close monitoring Diet Regular diet Lines Right IJ CVC 10/08/24 Bowel Regimen Colace Code status Full code DVT prophylaxis -SCDs on the left side; avoid enoxaparin because of low platelets The patient and his family will give decision regarding home hospice tomorrow Monday October 21, 2024 so please kindly follow up with the patient and his family. 45 minutes critical care time Late Entry. This medical document was created using an electronic medical record system with computerized dictation system. Although this document has been carefully reviewed, there might still be some phonetic and typographical errors. These areas are purely typographical due to imperfections of the software programs, and do not reflect any compromise in the patient's medical care. Plan discussed with: Patient, Other (Nurses) My Orders Orders - ALLAN SCALES MD Procedure Category Date Status Time Complete Blood Count LAB 10/21/24 Verified 04:00 Comprehensive LAB 10/21/24 Verified Metabolic Panel 04:00 Date of Service: Oct 20, 2024 Billing Provider: ALLAN SCALES MD Common Visit Codes: 01602-[id number] CARE 30-74 MIN (45 minutes) ALLAN SCALES MD Oct 20, 2024 13:27
[2024-10-20] MEDS ORDERED: CATHFLO ACTIVASE (ALTEPLASE) 2 MG VIAL IV ONE (19:45)
[2024-10-20] MEDS: VANCOMYCIN 1.5GM/300ML 300 ML IV SCH (21:47)
[2024-10-21] VITALS (99 sets, daily range): BP systolic 83–111; BP diastolic 44–62; PULSE 102–135; RESP 16–38; TEMP 98.2–101.4; O2SAT 87–100
[2024-10-21 04:25] LABS: Anion Gap 12 (5-15); BUN/Creatinine Ratio 48.3 (10.0-20.0); Blood Urea Nitrogen 14 mg/dL (9-23); Carbon Dioxide 24 mmol/L (20-31); Glucose 79 mg/dL (74-106)
[2024-10-21 04:26] LABS: Bilirubin, Total 0.8 mg/dL (0.2-1.0)
[2024-10-21 04:30] LABS: Alanine Aminotransferase 78 U/L (7-40); Albumin 2.1 g/dL (3.2-4.8); Alkaline Phosphatase 118 U/L (46-116); Calcium 7.1 mg/dL (8.7-10.4); Chloride 109 mmol/L (98-107); Potassium 3.0 mmol/L (3.5-5.1); Sodium 145 mmol/L (136-145); Total Protein 5.1 g/dL (5.7-8.2)
[2024-10-21 04:41] LABS: Hematocrit 19.3 % (41.0-53.0); Mean Corpuscular Hemoglobin 29.6 pg (28.0-32.0); Mean Corpuscular Volume 87.3 fL (80.0-100.0)
[2024-10-21 04:44] LABS: Hemoglobin 6.6 g/dL (13.5-17.5)
[2024-10-21 05:19] LABS: Total Cells Counted 100.0 (100)
[2024-10-21] MEDS: POTASSIUM CHL 20 Meq TABLET PO ONE (06:50)
[2024-10-21] MEDS: NOREPINEPHRINE 8 MG/250ML KIT 250 ML IV ONE (06:58)
--- NOTE | 2024-10-21 10:44 | DVHDS2 ---
Discharge Summary Date of Admission Oct 08, 2024 at 08:38 Date of Discharge: Oct 21, 2024 Admitting Diagnosis Cellulitis of RLE Labs/Diagnostic Data: Laboratory Results Test 10/21/24 03:10 10/20/24 11:58 10/20/24 02:57 10/18/24 03:06 White Blood Count 5.9 10^3/uL (4.4-10.8) Red Blood Count 2.22 10^6/uL (4.5-5.90) Hemoglobin 6.6 g/dL (13.5-17.5) Hematocrit 19.3 % (41.0-53.0) Mean Corpuscular Volume 87.3 fL (80.0-100.0) Mean Corpuscular Hemoglobin 29.6 pg (28.0-32.0) Mean Corpuscular Hemoglobin Concent 34.0 g/dL (32.0-36.0) Red Cell Distribution Width 14.7 % (11.8-14.3) Platelet Count 24 10^3/uL (140-450) Mean Platelet Volume 11.1 fL (6.9-10.8) Neutrophils (%) (Auto) % (37.0-80.0) Lymphocytes (%) (Auto) % (10.0-50.0) Monocytes (%) (Auto) % (0.0-12.0) Basophils (%) (Auto) % (0.0-2.0) Neutrophils # (Auto) 10 ^3/uL (1.6-8.6) Lymphocytes # (Auto) 10 ^3/uL (0.4-5.4) Monocytes # (Auto) 10 ^3/uL (0-1.3) Differential Total Cells Counted 100.0 (100) Neutrophils % (Manual) 74 (37.0-80.0) Band Neutrophils % (Manual) 17 Lymphocytes % (Manual) 8 (10.0-50.0) Monocytes % (Manual) 1 (0-12) Eosinophils % (Manual) 0 (0-7) Basophils % (Manual) 0 (0.0-2.0) Metamyelocytes % (manual) 0 Myelocytes % (Manual) 0 Promyelocytes % (Manual) 0 Blast Cells % (Manual) 0 Reactive Lymphocytes 0 Platelet Estimate Markedly decreased Sodium Level 145 mmol/L (136-145) Potassium Level 3.0 mmol/L (3.5-5.1) Chloride Level 109 mmol/L (98-107) Carbon Dioxide Level 24 mmol/L (20-31) Anion Gap 12 (5-15) Blood Urea Nitrogen 14 mg/dL (9-23) Creatinine 0.29 mg/dL (0.700-1.30) Glomerular Filtration Rate Calc 132 mL/min (>90) BUN/Creatinine Ratio 48.3 (10.0-20.0) Serum Glucose 79 mg/dL (74-106) Calcium Level 7.1 mg/dL (8.7-10.4) Total Bilirubin 0.8 mg/dL (0.2-1.0) Aspartate Amino Transferase (AST) 33 U/L (13-40) Alanine Aminotransferase (ALT) 78 U/L (7-40) Alkaline Phosphatase 118 U/L (46-116) Total Protein 5.1 g/dL (5.7-8.2) Albumin 2.1 g/dL (3.2-4.8) Vancomycin Level Trough 14.2 ug/mL (5-10) Eosinophils (%) (Auto) % (0.0-7.0) Eosinophils # (Auto) 10 ^3/uL (0-0.8) Basophils # (Auto) 10 ^3/uL (0-0.2) Nucleated Red Blood Cells % Anisocytosis (manual) Slight Magnesium Level 2.0 mg/dL (1.6-2.6) Direct Bilirubin 0.6 mg/dL (<0.3) Test 10/16/24 18:18 10/16/24 13:20 10/15/24 09:45 10/14/24 03:24 Lactic Acid Level 1.5 mmol/L (0.4-2.0) Random Vancomycin Level 13.5 ug/mL (5-10) Erythrocyte Sedimentation Rate 129 mm/hr (0-20) Test 10/13/24 04:35 10/11/24 14:30 10/08/24 13:31 10/08/24 07:12 Large Platelets Few Reticulocyte Count (auto) 0.09 % (0.5-1.5) Creatine Kinase 18 U/L (46-171) Stool Occult Blood Negative (Negative) Stool Occult Blood Sample #3 (Negative) Urine Color Dark yellow (Yellow) Urine Clarity Clear (Clear) Urine pH 6.0 (5.0-9.0) Urine Specific [place] 1.024 (1.001-1.035) Urine Protein 1+ (Negative) Urine Ketones Negative (Negative) Urine Blood Negative /uL (Negative) Urine Nitrite Negative (Negative) Urine Bilirubin Negative (Negative) Urine Urobilinogen Normal mg/dL (Negative) Urine Leukocyte Esterase Negative /uL (Negative) Urine RBC 2 /hpf (0 - 3) Urine Microscopic WBC 2 /HPF (0-3) Urine Squamous Epithelial Cells Few /hpf (<5) Urine Bacteria None seen /hpf (None Seen) Urine Mucus Few (None Seen) Urine Glucose Normal mg/dL (Normal) Prothrombin Time 13.4 sec (9.3-11.8) Prothrombin Time INR 1.30 (0.9-1.15) Activated Partial Thromboplast Time 30.0 SEC (24.5-34.5) Other Laboratory Tests 10/21/24 03:10 Brief Hx & Hospital Course: History of Present Illness Eugene Alejandro is a 69-year-old male with past medial history of myelodysplastic syndrome, prostate cancer status post resection, COPD, schizophrenia, hypotension, and previous admissions for severe anemia due to myelodysplastic syndrome who presented to the emergency department with a chief complaint of dizziness. Patient states he has been feeling weak for a couple days. Patient is seen here frequently for blood transfusions. He has been losing weight and continues to lose weight. He states he does not feel hungry. Last admission, earlier this month, the patient was transferred to [place] for higher level of care due to chronic right leg cellulitis. He was transferred for possible surgical intervention after a CT of right leg with contrast showed possible necrotizing fasciitis. Patient's right leg continues to have worsening edema and now multiple draining wounds. Chest X-ray shows multifocal airspace disease. Hospitalization: Patient was started on IV fluid resuscitation, midodrine p.o., as well as norepinephrine for persistent shock. Patient's overall clinical status continue dairy. Infectious disease consultation was obtained with the patient currently Meropenem, clindamycin, vancomycin. Patient has poor oral intake. Long discussion was made with patient, as well as family by previous hospitalist. This time they are wishing for hospice services. Today, the patient will be discharged to a hospice residential facility for which all parties are agreeable to. Physical examination General: Alert and Oriented x3. No acute distress. Well-nourished. Eyes: EOMI. Anicteric. HENT: Moist mucous membranes. Lungs: Clear to auscultation bilaterally. No accessory muscle use. Cardiovascular: Regular rate and rhythm. No murmur. No JVD. Abdomen: Soft, non-tender and non-distended. No palpable masses. Extremities: No edema. Non-tender. Skin: No rashes or lesions. Warm. Neurologic: No focal neurological deficits. CN II-XII grossly intact, but not individually tested. Psychiatric: Cooperative. Appropriate mood and affect. Total time spent with patient discussing and formulating plan of care: 35 minutes. This medical document was created using an electronic medical record system with [employer] dictation system. Although this document has been carefully reviewed, there may still be some phonetic and typographical errors. These areas are purely typographical due to imperfections of the software programs, and do not reflect any compromise in the patient's medical care. Consults/Reason for consult Surgical: Myositis for questionable abscess Infectious disease: Cellulitis to right lower extremity, acute on chronic Condition at Discharge: Poor Final Diagnosis/Problems List Septic shock secondary to RLE abscess Secondary diagnosis: #Septic shock due to right lower leg cellulitis/pyomyositis/suspected osteomyelitis and suspected postobstructive pneumonia # Dizziness due to septic shock/hypotension and symptomatic anemia # Acute hypoxic respiratory failure due to suspected postobstructive pneumonia in the setting of lung masses # Suspected postobstructive pneumonia in the setting of lung masses # Moderate pericardial effusion; most likely malignant in the setting of lung mass # Elevated LFTs due to septic shock # Dyslipidemia; no statin due to elevated LFT # Lung masses with mediastinal lymphadenopathy; suspected primary malignancy or metastasis # COPD exacerbation due to suspected postobstructive pneumonia # Myelodysplastic syndrome with severe anemia requiring recurrent transfusions and thrombocytopenia; total of 6 units of packed RBCs transfused during this admission # Protein deficient malnutrition/moderate # Cellulitis with pyomyositis of right lower leg # Achilles tendinopathy and peritendinitis # Lateral hindfoot impingement # 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 # Schizophrenia # History of prostate cancer s/p radiation therapy # BPH status post TURP Discharge Disposition: Hospice- Medical Facility Discharge Instruct/Medications Diet: Regular Activity: No Restrictions, As Tolerated Follow Up/Referral: Per Hospice Provider Medications: Per Hospice Provider Scheduled Aspirin (Aspirin Low Dose), 1 TAB PO DAILY, (Reported) Atorvastatin Calcium (Atorvastatin Calcium), 1 TAB PO DAILY, (Reported) Furosemide (Furosemide), 1 TAB PO DAILY, (Reported) Gabapentin (Gabapentin), 600 MG PO BID, (Reported) Melatonin ( Melatonin), 3 MG PO HS, (Reported) Midodrine Hcl (Midodrine Hcl), 10 MG PO TID Mirtazapine (Mirtazapine Oral Disintegrating Tablet), 1 TAB PO QPM, (Reported) Risperidone (Risperidone), 2 MG PO BID, (Reported) Miscellaneous Medications Albuterol Sulfate (Ventolin Mdi), 90 MCG IN, (Reported) Fluticasone Furoate (Inhalatio (Arnuity Ellipta), 200 MCG IN, (Reported) 36 Discharge Statement: "Patient was advised to return to the ER or call 911 if any headaches, dizziness, shortness of breath, chest pain, abdominal pain, bleeding, fevers, or worsening of medical condition. Patient was counseled about treatment plan, medications, possible side effects, patientverbalized understanding. All questions were answered to the best of my ability. This discharge took greater then 30 minutes in planning, reviewing documentation, counseling the patient, and discussing with other team members." ASSESSMENT ASSESSMENT Assessment Septic shock secondary to RLE abscess Date of Service: Oct 21, 2024 Billing Provider: YOANDY SALAS NP Common Visit Codes: 63336-ICU/OBS DISCH DAY >30min YOANDY SALAS NP Oct 21, 2024 10:44
[2024-10-22] VITALS (69 sets, daily range): BP systolic 45–112; BP diastolic 45–65; PULSE 107–144; RESP 11–35; TEMP 98.5–101; O2SAT 92–100
--- NOTE | 2024-10-22 08:58 | DVHPN2 ---
Subjective Denies any symptoms Reviewed: Care Plan, H&P, Labs, Medications, Previous Orders, Radiology, Other (Consultations) Changes from previous H/P or p: No Changes General: Per HPI Objective Vitals Vital Signs Date Time Temp Pulse Resp B/P (MAP) Pulse Ox O2 Delivery O2 Flow Rate FiO2 10/22/24 08:43 98/50 10/22/24 06:45 108 29 98 10/22/24 06:30 98.5 98.5 10/22/24 06:24 Nasal Cannula* 3 32 Intake/Output Intake and Output 10/22/24 07:00 Intake Total 2782.628 ml Output Total 1645 ml Balance 1137.628 ml Intake Oral 1340 ml IV Total 1442.628 ml Output Urine Total 1645 ml # Bowel Movements 2 General Appearance: Alert, Oriented X3, Cooperative, moderate distress HEENT: Atraumatic, Other (Pale) Lungs: Other (Decreased air entry bilateral with scattered crackles) Cardiovascular: Normal S1, Normal S2, Other (Tachycardia) Abdomen: Normal bowel sounds, Soft, No tenderness Extremities: Other (Dressed right lower leg; please kindly refer to wound care/nursing documentation) Neuro: Normal speech, Cranial nerves 3-12 NL Skin: Wounds (See nurse notes and pictures) Psych/Mental Status: Mental status NL, Mood NL Medications Current Medications Medications Dose Ordered Sig/Fabricio Route Start Time Stop Time Status Last Admin Dose Admin Ondansetron HCl 4 mg Q4HP PRN IV 10/08/24 08:45 10/11/24 20:53 4 MG Docusate Sodium 100 mg BIDPRN PRN PO 10/08/24 08:45 Patient Own Medication 1 tab DAILY PO 10/08/24 10:00 UNV Patient Own Medication 600 mg BID PO 10/08/24 10:00 UNV Patient Own Medication 2 mg BID PO 10/08/24 10:00 UNV Albuterol 2.5 mg Q6HWA [facility] 10/08/24 12:00 10/22/24 06:22 2.5 MG Ipratropium [place] 0.5 mg Q6HWA [facility] 10/08/24 12:00 10/22/24 06:22 0.5 MG Risperidone 2 mg BID PO 10/08/24 10:00 10/21/24 22:06 2 MG Ipratropium [place] 0.5 mg Q6HWA [facility] 10/08/24 18:00 UNV Albuterol 2.5 mg Q6HWA NEB 10/08/24 18:00 UNV Norepinephrine Bitartrate 250 ml @ 3.75 mls/hr Q24H IV 10/14/24 19:30 10/22/24 04:10 11.25 MLS/HR Enteral Nutritional Formula 240 ml TIDWM PO 10/15/24 12:00 10/21/24 19:09 240 ML Midodrine 15 mg TID PO 10/16/24 22:00 10/22/24 06:04 15 MG Clindamycin Phosphate 50 ml @ 50 mls/hr Q8HR IV 10/17/24 14:00 10/22/24 06:03 50 MLS/HR Acetaminophen 650 mg Q6HP PRN PO 10/18/24 21:00 10/20/24 22:47 650 MG Meropenem 50 ml @ 17 mls/hr Q8HR IV 10/19/24 22:00 10/22/24 06:03 17 MLS/HR Vancomycin HCl 0 ml @ 0 mls/hr UD IV 10/19/24 22:15 Vancomycin HCl 300 ml @ 200 mls/hr Q10H IV 10/20/24 22:00 10/22/24 04:07 200 MLS/HR Laboratory Results Laboratory Tests 10/21/24 03:10 Urinalysis Test 10/08/24 13:31 Urine Color Dark yellow (Yellow) Urine Clarity Clear (Clear) Urine pH 6.0 (5.0-9.0) Urine Specific [place] 1.024 (1.001-1.035) Urine Protein 1+ (Negative) H Urine Ketones Negative (Negative) Urine Blood Negative /uL (Negative) Urine Nitrite Negative (Negative) Urine Bilirubin Negative (Negative) Urine Urobilinogen Normal mg/dL (Negative) Urine Leukocyte Esterase Negative /uL (Negative) Urine RBC 2 /hpf (0 - 3) Urine Microscopic WBC 2 /HPF (0-3) Urine Squamous Epithelial Cells Few /hpf (<5) Urine Bacteria None seen /hpf (None Seen) Urine Mucus Few (None Seen) Urine Glucose Normal mg/dL (Normal) Microbiology Microbiology Date/Time Source Procedure Growth Status 10/19/24 10:16 Blood Blood Culture - Preliminary NO GROWTH AFTER 48 HOURS OF INCUBATION. Resulted 10/16/24 22:45 Urine - [place] Urine Culture - Final Complete 10/15/24 07:50 Sputum Gram Stain - Final Complete 10/15/24 07:50 Sputum Respiratory Culture - Final Complete 10/09/24 15:48 Leg Right Gram Stain - Final Complete 10/09/24 15:48 Leg Right Wound Culture - Final Complete Labs and/or images reviewed: Labs reviewed by me, Image(s) reviewed by me Assessment/Plan Assessment/Plan Impression: #Septic shock due to right lower leg cellulitis/pyomyositis/suspected osteomyelitis and suspected postobstructive pneumonia # Dizziness due to septic shock/hypotension and symptomatic anemia # Acute hypoxic respiratory failure due to suspected postobstructive pneumonia in the setting of lung masses # Suspected postobstructive pneumonia in the setting of lung masses # Moderate pericardial effusion; most likely malignant in the setting of lung mass # Elevated LFTs due to septic shock # Dyslipidemia; no statin due to elevated LFT # Lung masses with mediastinal lymphadenopathy; suspected primary malignancy or metastasis # COPD exacerbation due to suspected postobstructive pneumonia # Myelodysplastic syndrome with severe anemia requiring recurrent transfusions and thrombocytopenia; total of 6 units of packed RBCs transfused during this admission # Protein deficient malnutrition/moderate # Cellulitis with pyomyositis of right lower leg # Achilles tendinopathy and peritendinitis # Lateral hindfoot impingement # 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 # Schizophrenia # History of prostate cancer s/p radiation therapy # BPH status post TURP Plan: Plan for DC today with Hospice. Plan discussed with: Patient, Other (RN) My Orders Orders - YOANDY SALAS NP Procedure Category Date Status Time Discharge DISCHARGE 10/21/24 Transmitted 10:32 * [employer] CONS 10/21/24 Transmitted Consult Date of Service: Oct 22, 2024 Billing Provider: YOANDY SALAS NP Common Visit Codes: 85864-LKD/OBS DISCH DAY >30min YOANDY SALAS NP Oct 22, 2024 08:58
--- NOTE | 2024-10-24 05:36 | DVHPN2 ---
Consult Progress Note Date Seen: Oct 21, 2024 Subjective Patient reports: Other (goals of care discussion , family and patient have chose to pursue hospice care given chronic recurrent blood product dependancy and persistent fevers likely related to patients malignancy ) Objective vital signs Vital Sign Date Time Temp Pulse Resp B/P (MAP) Pulse Ox O2 Delivery O2 Flow Rate FiO2 10/22/24 15:15 98.5 127 22 98.5 10/22/24 14:45 92 10/22/24 14:00 Nasal Cannula* 2 28 medications Current Medications Medications Dose Ordered Sig/Fabricio Route Start Time Stop Time Status Last Admin Dose Admin Patient Own Medication 1 tab DAILY PO 10/08/24 10:00 UNV Patient Own Medication 600 mg BID PO 10/08/24 10:00 UNV Patient Own Medication 2 mg BID PO 10/08/24 10:00 UNV Ipratropium [place] 0.5 mg Q6HWA [facility] 10/08/24 18:00 UNV Albuterol 2.5 mg Q6HWA [facility] 10/08/24 18:00 UNV Physical Exam: General: NAD Neck: Supple. No masses. HEENT: PERRL. Normal lids and conjunctiva. Moist mucous membranes. Oropharynx without lesions, exudates or excessive erythema. Normal appearance of the external aspects of the nose and ears. Heart: Regular rhythm, normal rate. No murmur. No lower extremity edema (replace with: profound right lower extremity 4+ edema). Lungs: Normal respiratory effort. Clear to auscultation bilaterally. No wheezes. No crackles. Abdomen: Soft. Non-tender. Non-distended. No masses or abdominal hernia. Msk: Right leg: profound, non-tender 4+ pitting edema; purulent ulcer on inferior villarreal and posterior ankle. No digital cyanosis. Normal strength and tone in all other limbs. Skin: Warm and dry except right leg; draining purulent ulcers inferior villarreal and posterior ankle. Neuro: Alert. No facial droop or slurred speech. Extra-ocular movements intact. Sensation intact to soft touch in all 4 limbs. Psych: Flat affect. Oriented to person, place, time, and situation. laboratory and microbiology Laboratory Tests 10/21/24 03:10 Test 10/21/24 03:10 Range/Units Serum Glucose 79 74-106 mg/dL Problem List/Assessment/Plan Problems(with codes): (1) FH: heart attack (2) Swelling of right lower extremity (3) Sepsis, unspecified organism (4) Cellulitis of right lower extremity (5) Near syncope (6) Postoperative pain Problem List/Assessment/Plan ASSESSMENT AND PLAN: ID Problem List: \-- Chronic myelodysplastic syndrome with recurrent anemia \-- Prostate cancer \-- COPD (post-resection) \-- Chronic hypertension \-- Schizophrenia \-- Chronic right lower extremity edema, recurrent cellulitis, draining ulcer \-- Septic shock (presumed) \-- Multifocal pneumonia Assessment Mr. Eugene Alejandro is a 69-year-old male with a history of myelodysplastic syndrome (recurrent anemia requiring weekly transfusions), prostate cancer, COPD (post-resection), hypertension on midodrine, and schizophrenia, who presents with weakness, dizziness, weight loss, poor oral intake, and worsening right lower extremity edema. Notable for new purulent drainage from both his posterior ankle and inferior villarreal and gross 4+ right leg edema. Patient denies leg pain. Noted flat affect, not eating. Past transfer to [place] for possible surgical evaluation based on CT evidence of muscle abscess/necrotizing fasciitis, though no acute surgery was indicated. At present, the patient remains hemodynamically unstable, requiring vasopressor support (levophed 16 mcg), and has evidence of septic shock (fever, hypotension, tachycardia, leukocytosis not present but anemia present, lactate 2.6, and ongoing purulent drainage of right LE ulcer presumed infectious). Imaging shows multifocal pneumonia (diffuse airspace disease). Right lower extremity exam: Massively edematous, non-tender, with 4+ edema and draining purulent ulcer lateral villarreal and posterior ankle. Current antibiotic regimen is vancomycin and cefepime pending cultures. Last Hb 8.7 after transfusion (matt 7.3). Patient is also severely hypertensive at baseline, unclear etiology of persistent relative hypotension, likely secondary to sepsis. 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 no organisms seen on gram stain 10/11: liver enzymes are elevated , likely related to ischemic hepatopathy , however would rule out any underlying HIV or hepatitis 10/12: congestion as seen in the lungs , leg is still edemitis as well but only on the right leg , otherwise appears intervascularly dry . fever curve is stable with high fever at 102.2 10/13: hemoglobin is 6.9 , requiring a blood transfusion . blood transfusion may be resulting in lung congestion and consolidations 10/14: liver enzymes are slowly improving and awaiting surgical evaluation of patients leg 10/15: angiography was done and showed extensive thickening of Achilles tendon and surrounding soft tissues with posterior medial calf to correlate with patients surgical history . theres generalized atrophy and edema within the muscles of the right calf which may be seen in myositis or other etiology . severes right greater than left subcutaneous edea with skin thickening in the background as well as body wall edema , unclear if myositis is truly infectious in etiology since patient does not have a clear open wound directly at the site of the muscular atrophy . pyomyositis on R leg on MRI hb intermittently dropping vancomycin trough therapuetic Chest CT w/ Right upper lobe mass measures 5.4 x 5.0 cm 2 masses in the left upper lobe measure 3.4 x 3.3 cm and 3.1 x 2.6 cm. Right lower lobe mass measures 2.7 x 2.3 cm and additional pleural based medial apical mass measures 2.0 x 1.5 cm. Bibasilar consolidation is present with possible more masslike area in the left lower lobe measuring 4.8 x 4.7 cm. There are air bronchograms within these masses, irregular margins, and some surrounding ground-glass opacities. There are areas of subpleural pulmonary fibrosis in the upper lobes. There are prominent mediastinal lymph nodes measuring up to 1.3 cm in short axis 10/16: hypoxic needs continue to go up , suspect related to recurrent blood transfusions . consider fever and myositis as a sequela of myelodysplastic syndrome from patients underlying malignancy 10/17: requiring another blood transfusion every 2-3 days . respiratory and sputum cultures were repeats and preliminary are negative for any organisms 10/18: unclear if symptomatology with continue to progress , unclear if this is infection or sequela of myelodysplastic syndrome 10/20: hemoglobin is stable 10/21: repeat blood cultures are no growth to date Plan: - if patient is to pursue hospice care would discontinue all antibiotic therapies - defer to hematology oncology for myelodysplastic syndrome - if patient fails to respond to antibiotic therapy and remains persistently in shock may require reevaluation of goals of care given patient is both transfusion dependent and presser dependent - consider the addition of clindamycin empirically to see if it will help with necrosis and overall septic picture - screen for hepatitis A,B, and C - check HIV status - check LFTs daily - continue mitadrine TID - defer to surgery on need for debridement - f/u on blood and wound cultures - increase vancomycin troth to 15-20 - defer to primary team for management of myelodysplastic syndrome and transfusions for hemoglobins under 7 - consider surgical consult for pyomyositis when more clinically stable. - recommend hematology/oncology and pulmonology involvement for R lung masses in setting of known prostate cancer and myelodysplastic syndrome - Hb>7, plts>100 goal - vasopressors to keep maps >65 \-- Continue empiric vancomycin and zosyn \-- Blood, sputum and wound cultures pending; recommend obtaining superficial wound culture from draining right lower extremity ulcer \-- MRI right lower extremity to further evaluate suspected muscle abscess/necrotizing infection \-- Continue vasopressor support (levophed), goal MAP > 65 \-- IV fluids as tolerated \-- Monitor for improvement/worsening of sepsis/shock \-- Continue blood transfusions as per hematology/primary; most recent Hgb 8.7 \-- Not recommended to diurese at present due to hemodynamics and ongoing sepsis/shock \-- Monitor oxygenation, continue supportive care including 2L nasal cannula \-- Ongoing care for schizophrenia as per psychiatry recommendations \-- Monitor laboratory markers and adjust antibiotics if indicated based on cultures Isolation Precautions: standard Authorized and Performed by: paola wilson Total critical care time: Approximately 76 minutes Due to a high probability of clinically significant, life threatening deterioration, the patient required my highest level of preparedness to intervene emergently and I personally spent this critical care time directly and personally managing the patient. This critical care time included obtaining a history; examining the patient; pulse oximetry; ordering and review of studies; arranging urgent treatment with development of a management plan; evaluation of patient's response to treatment; frequent reassessment; and, discussions with other providers. This critical care time was performed to assess and manage the high probability of imminent, life-threatening deterioration that that could result in multi- organ failure. It was exclusive of separately billable procedures and treating other patients and teaching time. Plan discussed with: Patient Dietary Evaluation Review Recommendations by RD: Increase Calorie Intake Comments: Pt meets criteria for Moderate Protein-Calorie Malnutrition in the setting of chronic illness based on wt loss 6.3kg/8.0% in 6 month and mild fluid accumulation to right LE. Nutrition Recommendation 1) Ensure Enlive 240ml TID 2) Monitor wt trend, I/O, lab values, PO intake Expected Outcomes/Goals: To gain/maintain wt Intake to meet at least 75% estimated needs FU 3-5 days Interpretation of weight loss: up to 10% in 6 months Fluid Accumulation (Non Severe: Mild fluid retention Protein Calorie Malnutrition: Non-Severe Is there a minimum of two crit: Yes CC Plasma Assessment Blood Product Administration S: [id number] PAOLA WILSON MD Oct 24, 2024 05:36
--- NOTE | 2024-10-24 05:36 | DVHPN2 ---
Consult Progress Note Date Seen: Oct 22, 2024 Subjective Patient reports: Other Objective vital signs Vital Sign Date Time Temp Pulse Resp B/P (MAP) Pulse Ox O2 Delivery O2 Flow Rate FiO2 10/22/24 15:15 98.5 127 22 98.5 10/22/24 14:45 92 10/22/24 14:00 Nasal Cannula* 2 28 medications Current Medications Medications Dose Ordered Sig/Fabricio Route Start Time Stop Time Status Last Admin Dose Admin Patient Own Medication 1 tab DAILY PO 10/08/24 10:00 UNV Patient Own Medication 600 mg BID PO 10/08/24 10:00 UNV Patient Own Medication 2 mg BID PO 10/08/24 10:00 UNV Ipratropium [place] 0.5 mg Q6HWA NEB 10/08/24 18:00 UNV Albuterol 2.5 mg Q6HWA [facility] 10/08/24 18:00 UNV Physical Exam: General: NAD Neck: Supple. No masses. HEENT: PERRL. Normal lids and conjunctiva. Moist mucous membranes. Oropharynx without lesions, exudates or excessive erythema. Normal appearance of the external aspects of the nose and ears. Heart: Regular rhythm, normal rate. No murmur. No lower extremity edema (replace with: profound right lower extremity 4+ edema). Lungs: Normal respiratory effort. Clear to auscultation bilaterally. No wheezes. No crackles. Abdomen: Soft. Non-tender. Non-distended. No masses or abdominal hernia. Msk: Right leg: profound, non-tender 4+ pitting edema; purulent ulcer on inferior villarreal and posterior ankle. No digital cyanosis. Normal strength and tone in all other limbs. Skin: Warm and dry except right leg; draining purulent ulcers inferior villarreal and posterior ankle. Neuro: Alert. No facial droop or slurred speech. Extra-ocular movements intact. Sensation intact to soft touch in all 4 limbs. Psych: Flat affect. Oriented to person, place, time, and situation. laboratory and microbiology Laboratory Tests 10/21/24 03:10 Test 10/21/24 03:10 Range/Units Serum Glucose 79 74-106 mg/dL Problem List/Assessment/Plan Problems(with codes): (1) Severe anemia (2) Swelling of right lower extremity (3) Sepsis, unspecified organism (4) Cellulitis of right lower extremity (5) Near syncope (6) Postoperative pain Problem List/Assessment/Plan ASSESSMENT AND PLAN: ID Problem List: \-- Chronic myelodysplastic syndrome with recurrent anemia \-- Prostate cancer \-- COPD (post-resection) \-- Chronic hypertension \-- Schizophrenia \-- Chronic right lower extremity edema, recurrent cellulitis, draining ulcer \-- Septic shock (presumed) \-- Multifocal pneumonia Assessment Mr. Eugene Alejandro is a 69-year-old male with a history of myelodysplastic syndrome (recurrent anemia requiring weekly transfusions), prostate cancer, COPD (post-resection), hypertension on midodrine, and schizophrenia, who presents with weakness, dizziness, weight loss, poor oral intake, and worsening right lower extremity edema. Notable for new purulent drainage from both his posterior ankle and inferior villarreal and gross 4+ right leg edema. Patient denies leg pain. Noted flat affect, not eating. Past transfer to [place] for possible surgical evaluation based on CT evidence of muscle abscess/necrotizing fasciitis, though no acute surgery was indicated. At present, the patient remains hemodynamically unstable, requiring vasopressor support (levophed 16 mcg), and has evidence of septic shock (fever, hypotension, tachycardia, leukocytosis not present but anemia present, lactate 2.6, and ongoing purulent drainage of right LE ulcer presumed infectious). Imaging shows multifocal pneumonia (diffuse airspace disease). Right lower extremity exam: Massively edematous, non-tender, with 4+ edema and draining purulent ulcer lateral villarreal and posterior ankle. Current antibiotic regimen is vancomycin and cefepime pending cultures. Last Hb 8.7 after transfusion (matt 7.3). Patient is also severely hypertensive at baseline, unclear etiology of persistent relative hypotension, likely secondary to sepsis. 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 no organisms seen on gram stain 10/11: liver enzymes are elevated , likely related to ischemic hepatopathy , however would rule out any underlying HIV or hepatitis 10/12: congestion as seen in the lungs , leg is still edemitis as well but only on the right leg , otherwise appears intervascularly dry . fever curve is stable with high fever at 102.2 10/13: hemoglobin is 6.9 , requiring a blood transfusion . blood transfusion may be resulting in lung congestion and consolidations 10/14: liver enzymes are slowly improving and awaiting surgical evaluation of patients leg 10/15: angiography was done and showed extensive thickening of Achilles tendon and surrounding soft tissues with posterior medial calf to correlate with patients surgical history . theres generalized atrophy and edema within the muscles of the right calf which may be seen in myositis or other etiology . severes right greater than left subcutaneous edea with skin thickening in the background as well as body wall edema , unclear if myositis is truly infectious in etiology since patient does not have a clear open wound directly at the site of the muscular atrophy . pyomyositis on R leg on MRI hb intermittently dropping vancomycin trough therapuetic Chest CT w/ Right upper lobe mass measures 5.4 x 5.0 cm 2 masses in the left upper lobe measure 3.4 x 3.3 cm and 3.1 x 2.6 cm. Right lower lobe mass measures 2.7 x 2.3 cm and additional pleural based medial apical mass measures 2.0 x 1.5 cm. Bibasilar consolidation is present with possible more masslike area in the left lower lobe measuring 4.8 x 4.7 cm. There are air bronchograms within these masses, irregular margins, and some surrounding ground-glass opacities. There are areas of subpleural pulmonary fibrosis in the upper lobes. There are prominent mediastinal lymph nodes measuring up to 1.3 cm in short axis 10/16: hypoxic needs continue to go up , suspect related to recurrent blood transfusions . consider fever and myositis as a sequela of myelodysplastic syndrome from patients underlying malignancy 10/17: requiring another blood transfusion every 2-3 days . respiratory and sputum cultures were repeats and preliminary are negative for any organisms 10/18: unclear if symptomatology with continue to progress , unclear if this is infection or sequela of myelodysplastic syndrome 10/20: hemoglobin is stable 10/21: repeat blood cultures are no growth to date 10/22: hemoglobin has dropped to 6.5 and seems to be associated with increase temperatures Plan: - recommend Tylenol PRN to keep temperatures at appropriate level - discontinue all antibiotics when discharge to hospice care - if patient is to pursue hospice care would discontinue all antibiotic therapies - defer to hematology oncology for myelodysplastic syndrome - if patient fails to respond to antibiotic therapy and remains persistently in shock may require reevaluation of goals of care given patient is both transfusion dependent and presser dependent - consider the addition of clindamycin empirically to see if it will help with necrosis and overall septic picture - screen for hepatitis A,B, and C - check HIV status - check LFTs daily - continue mitadrine TID - defer to surgery on need for debridement - f/u on blood and wound cultures - increase vancomycin troth to 15-20 - defer to primary team for management of myelodysplastic syndrome and transfusions for hemoglobins under 7 - consider surgical consult for pyomyositis when more clinically stable. - recommend hematology/oncology and pulmonology involvement for R lung masses in setting of known prostate cancer and myelodysplastic syndrome - Hb>7, plts>100 goal - vasopressors to keep maps >65 \-- Continue empiric vancomycin and zosyn \-- Blood, sputum and wound cultures pending; recommend obtaining superficial wound culture from draining right lower extremity ulcer \-- MRI right lower extremity to further evaluate suspected muscle abscess/necrotizing infection \-- Continue vasopressor support (levophed), goal MAP > 65 \-- IV fluids as tolerated \-- Monitor for improvement/worsening of sepsis/shock \-- Continue blood transfusions as per hematology/primary; most recent Hgb 8.7 \-- Not recommended to diurese at present due to hemodynamics and ongoing sepsis/shock \-- Monitor oxygenation, continue supportive care including 2L nasal cannula \-- Ongoing care for schizophrenia as per psychiatry recommendations \-- Monitor laboratory markers and adjust antibiotics if indicated based on cultures Isolation Precautions: standard Authorized and Performed by: paola wilson Total critical care time: Approximately 76 minutes Due to a high probability of clinically significant, life threatening deterioration, the patient required my highest level of preparedness to intervene emergently and I personally spent this critical care time directly and personally managing the patient. This critical care time included obtaining a history; examining the patient; pulse oximetry; ordering and review of studies; arranging urgent treatment with development of a management plan; evaluation of patient's response to treatment; frequent reassessment; and, discussions with other providers. This critical care time was performed to assess and manage the high probability of imminent, life-threatening deterioration that that could result in multi- organ failure. It was exclusive of separately billable procedures and treating other patients and teaching time. Plan discussed with: Other Dietary Evaluation Review Recommendations by IDR[facility]: Increase Calorie Intake Comments: Pt meets criteria for Moderate Protein-Calorie Malnutrition in the setting of chronic illness based on wt loss 6.3kg/8.0% in 6 month and mild fluid accumulation to right LE. Nutrition Recommendation 1) Ensure Enlive 240ml TID 2) Monitor wt trend, I/O, lab values, PO intake Expected Outcomes/Goals: To gain/maintain wt Intake to meet at least 75% estimated needs FU 3-5 days Interpretation of weight loss: up to 10% in 6 months Fluid Accumulation (Non Severe: Mild fluid retention Protein Calorie Malnutrition: Non-Severe Is there a minimum of two crit: Yes CC Plasma Assessment Blood Product Administration S: [id number] PAOLA WILSON MD Oct 24, 2024 05:36
[2024-10-26 02:06] LABS: Vitamin B1, Whole Blood 89.1 nmol/L (66.5-200.0)
== END 2024-10-22 15:22 | disposition hospice, home (50) | DRG 871 ==
LOC: ER 05:50 → OVERFLOW 08:38 → ICU WEST 10-14 05:20
PROVIDERS: ADMIT Nurse Practitioner Acute Care; ATTEND Nurse Practitioner Acute Care
PROC: 02HV33Z Insertion of Infusion Device into Superior Vena Cava, Percutaneous Approach (ICD-10-PCS; 2024-10-08)
PROC: 30233N1 Transfusion of Nonautologous Red Blood Cells into Peripheral Vein, Percutaneous Approach (ICD-10-PCS; principal; 2024-10-09)
DX: A41.59 Other Gram-negative sepsis (principal); J15.69 Pneumonia due to other Gram-negative bacteria; R65.21 Severe sepsis with septic shock; J96.01 Acute respiratory failure with hypoxia; J15.9 Unspecified bacterial pneumonia; L03.115 Cellulitis of right lower limb; J44.0 Chronic obstructive pulmonary disease with (acute) lower respiratory infection; J44.1 Chronic obstructive pulmonary disease with (acute) exacerbation; M60.061 Infective myositis, right lower leg; L97.919 Non-pressure chronic ulcer of unspecified part of right lower leg with unspecified severity; E44.0 Moderate protein-calorie malnutrition; L02.415 Cutaneous abscess of right lower limb; M86.8X7 Other osteomyelitis, ankle and foot; C78.00 Secondary malignant neoplasm of unspecified lung; I31.31 Malignant pericardial effusion in diseases classified elsewhere; F20.9 Schizophrenia, unspecified; Z51.5 Encounter for palliative care; I10 Essential (primary) hypertension; K80.20 Calculus of gallbladder without cholecystitis without obstruction; R16.0 Hepatomegaly, not elsewhere classified; E78.5 Hyperlipidemia, unspecified; F17.210 Nicotine dependence, cigarettes, uncomplicated; D46.9 Myelodysplastic syndrome, unspecified; N40.0 Benign prostatic hyperplasia without lower urinary tract symptoms; R59.0 Localized enlarged lymph nodes; D69.59 Other secondary thrombocytopenia; M77.8 Other enthesopathies, not elsewhere classified; Z79.82 Long term (current) use of aspirin; Z79.899 Other long term (current) drug therapy; Z82.49 Family history of ischemic heart disease and other diseases of the circulatory system; Z83.3 Family history of diabetes mellitus; Z85.46 Personal history of malignant neoplasm of prostate; Z92.3 Personal history of irradiation; Z90.79 Acquired absence of other genital organ(s); Z68.22 Body mass index [BMI] 22.0-22.9, adult
CPT/HCPCS: 36415; 36556; 71045; 71260; 73718; 73723; 75635; 76705; 80048; 80053; 80076; 80202; 81001; 82270; 82550; 82565; 83605; 83735; 84425; 85007; 85014; 85018; 85025; 85027; 85045; 85610; 85652; 85730; 86850; 86870; 86900; 86901; 86902; 86922; 87040; 87070; 87081; 87086; 87205; 93005; 93306; 93971; 94640; 96361; 96365; 99291; 99292; G0378; J2185; J2405; J2470; J2543; J3490; P9047